=== PATIENT | male | born 1960 | race Caucasian/White ===

== ENCOUNTER 2021-06-11 09:38 | Outpatient (CLI) | payer OTHER, MEDICAID, SELFPAY | END 2021-06-11 09:39 | disposition home or self-care (01) | LOC: WOUND 09:39 | PROVIDERS: Family Provider Physician Assistant Medical; PCP Physician Assistant Medical; Visit Provider Nurse Practitioner Family | DX: I96 Gangrene, not elsewhere classified (principal); E11.622 Type 2 diabetes mellitus with other skin ulcer; L97.822 Non-pressure chronic ulcer of other part of left lower leg with fat layer exposed; J44.9 Chronic obstructive pulmonary disease, unspecified; Z87.891 Personal history of nicotine dependence | CPT/HCPCS: 11042; 99213; A6253 ==

== ENCOUNTER 2021-06-12 06:00 | Outpatient (RCR) | payer OTHER, MEDICAID, SELFPAY | END 2021-06-25 23:59 | disposition home or self-care (01) | LOC: WPT 06:00 | PROVIDERS: PCP Physician Assistant Medical; Referring Provider Nurse Practitioner Family; Visit Provider Nurse Practitioner Family | DX: I89.0 Lymphedema, not elsewhere classified (principal) | CPT/HCPCS: 29581; 97161 ==

== ENCOUNTER 2021-06-18 10:14 | Outpatient (CLI) | payer OTHER, MEDICAID, SELFPAY | END 2021-06-18 10:15 | disposition home or self-care (01) | LOC: WOUND 10:15 | PROVIDERS: Family Provider Physician Assistant Medical; PCP Physician Assistant Medical; Visit Provider Thoracic Surgery (Cardiothoracic Vascular Surgery) | DX: I96 Gangrene, not elsewhere classified (principal); I87.2 Venous insufficiency (chronic) (peripheral); L97.822 Non-pressure chronic ulcer of other part of left lower leg with fat layer exposed; E11.9 Type 2 diabetes mellitus without complications; J44.9 Chronic obstructive pulmonary disease, unspecified; Z87.891 Personal history of nicotine dependence | CPT/HCPCS: 97597 ==

== ENCOUNTER 2021-06-25 10:47 | Outpatient (CLI) | payer OTHER, MEDICAID, SELFPAY | END 2021-06-25 10:48 | disposition home or self-care (01) | LOC: WOUND 10:47 | PROVIDERS: PCP Physician Assistant Medical; Visit Provider Thoracic Surgery (Cardiothoracic Vascular Surgery) | DX: I87.2 Venous insufficiency (chronic) (peripheral) (principal); L97.822 Non-pressure chronic ulcer of other part of left lower leg with fat layer exposed; E11.9 Type 2 diabetes mellitus without complications; J44.9 Chronic obstructive pulmonary disease, unspecified; Z87.891 Personal history of nicotine dependence; L97.811 Non-pressure chronic ulcer of other part of right lower leg limited to breakdown of skin | CPT/HCPCS: 99213; A6253 ==

== ENCOUNTER 2021-07-09 09:58 | Outpatient (CLI) | payer OTHER, MEDICAID, SELFPAY | END 2021-07-09 09:59 | disposition home or self-care (01) | LOC: WOUND 09:59 | PROVIDERS: PCP Physician Assistant Medical; Visit Provider Thoracic Surgery (Cardiothoracic Vascular Surgery) | DX: I96 Gangrene, not elsewhere classified (principal); I87.2 Venous insufficiency (chronic) (peripheral); L97.822 Non-pressure chronic ulcer of other part of left lower leg with fat layer exposed; L97.812 Non-pressure chronic ulcer of other part of right lower leg with fat layer exposed; J44.9 Chronic obstructive pulmonary disease, unspecified; Z87.891 Personal history of nicotine dependence | CPT/HCPCS: 97597; 97598 ==

== ENCOUNTER 2021-07-16 10:20 | Outpatient (CLI) | payer OTHER, MEDICAID, SELFPAY | END 2021-07-16 10:21 | disposition home or self-care (01) | LOC: WOUND 10:20 | PROVIDERS: PCP Physician Assistant Medical; Visit Provider Thoracic Surgery (Cardiothoracic Vascular Surgery) | DX: I96 Gangrene, not elsewhere classified (principal); I87.2 Venous insufficiency (chronic) (peripheral); L97.822 Non-pressure chronic ulcer of other part of left lower leg with fat layer exposed; L97.812 Non-pressure chronic ulcer of other part of right lower leg with fat layer exposed; J44.9 Chronic obstructive pulmonary disease, unspecified; Z87.891 Personal history of nicotine dependence | CPT/HCPCS: 99212 ==

== ENCOUNTER 2021-07-30 10:48 | Outpatient (CLI) | payer OTHER, MEDICAID, SELFPAY | END 2021-07-30 10:49 | disposition home or self-care (01) | LOC: WOUND 10:48 | PROVIDERS: PCP Physician Assistant Medical; Visit Provider Thoracic Surgery (Cardiothoracic Vascular Surgery) | DX: E11.622 Type 2 diabetes mellitus with other skin ulcer (principal); L97.822 Non-pressure chronic ulcer of other part of left lower leg with fat layer exposed; L97.812 Non-pressure chronic ulcer of other part of right lower leg with fat layer exposed; Z87.891 Personal history of nicotine dependence; I87.2 Venous insufficiency (chronic) (peripheral) | CPT/HCPCS: 97597; 97598 ==

== ENCOUNTER 2022-10-03 10:21 | Observation (INO) | payer MEDICAID, SELFPAY ==
[2022-10-03] VITALS (28 sets, daily range): BP systolic 119–156; BP diastolic 57–106; PULSE 64–95; RESP 13–28; TEMP 36.4–36.6; O2SAT 92–99; BMI 47.5
--- NOTE | 2022-10-03 10:23 | ED_ITS ---
HPI - General Adult General: Chief complaint: Weakness Stated complaint: WEAKNESS/ FALL/ POSSIBLE DKA Time Seen by Provider: 10/03/22 10:22 History of Present Illness: Mr. Barahona is a 61-year-old gentleman with complex past medical history including COPD with chronic hypoxic respiratory failure, CHF, hypertension, diabetes, history of TIA, history of bilateral lower extremity chronic skin changes with history of following with wound care presenting to the emergency department for concern over generalized weakness and falls. He reports 2 or 3 days of gradual onset generalized weakness. He feels when walking his knees will give out and he has fallen twice and has been unable to get up. No head strike or loss of consciousness. He denies any specific infectious symptoms. His blood glucose has been in the 400s and was initially high for EMS. Overall course of symptoms has worsened. Intensity is moderate to severe. No other specific changes in health, exacerbating, or alleviating factors identified. Prehospital patient received approximately 1250 cc of fluids Onset (ago): day(s) Severity: moderate Associated symptoms: Reports malaise and weakness Review of Systems General: Reports: 10 or more systems reviewed and unremarkable except in HPI and below Const: Reports: malaise [facility] ED PFSH: Medical History (Updated 10/03/22 @ 17:54 by Steve Becerril MD) CHF (congestive heart failure) Chronic respiratory failure with hypoxia COPD (chronic obstructive pulmonary disease) DM2 (diabetes mellitus, type 2) Social History (Updated 10/03/22 @ 10:33 by Omari Leo MD) Smoking and tobacco status: former smoker Physical Exam Const: COMMON NORMALS: alert GENERAL APPEARANCE: cooperative and well developed HENMT: COMMON NORMALS: normocephalic and atraumatic HEAD & SCALP: normocephalic and atraumatic Eye: COMMON NORMALS: conjunctivae normal CONJUNCTIVA: Yes conjunctivae normal SCLERA: sclerae normal Neck/C-Spine: COMMON NORMALS: supple GENERAL: Yes trachea midline Resp: COMMON NORMALS: clear to auscultation bilaterally EFFORT & INSPECTION: Yes able to speak in complete sentences AUSCULTATION: clear to auscultation bilaterally Cardio: COMMON NORMALS: regular rate and regular rhythm RATE: regular rate RHYTHM: regular rhythm GI: COMMON NORMALS: Soft to palpation PALPATION: Yes Soft to palpation and No Tenderness to palpation present (GI) Extremity: GENERAL: Yes normal exam except as noted and No edema Neuro: COMMON NORMALS: moves all extremities SENSORIUM/ORIENTATION: Yes alert and No Orientation impaired Psych: COMMON NORMALS: mental status grossly normal and Normal thought process present THOUGHT PROCESS: Normal thought process present Course Vital Signs: Vital signs: Vital Signs Temperature 98.6 F 10/04/22 19:00 Pulse Rate 66 10/04/22 22:00 Respiratory Rate 14 10/04/22 21:30 Blood Pressure 119/62 10/04/22 21:30 Pulse Oximetry 97 10/04/22 21:30 Oxygen Delivery Me thod Nasal Cannula 10/04/22 20:00 Oxygen Flow Rate 2 10/04/22 20:00 MDM - General Adult Medical Decision Making 61-year-old gentleman presenting with generalized weakness and malaise and aleshia rn over DKA. Exam as above. No focal neurologic deficits or trauma requiring trauma imaging. EKG demonstrates sinus rhythm with degree AV block. Nonspecific ST segment abnormalities are present, no STEMI. Labs with mild hemoconcentration and minimal leukocytosis. Subtherapeutic INR. Unfortunately metabolic panel was delayed secondary to multiple hemolyzed samples. Patient has FRANCISCO and evidence of metabolic stress as well as hyperkalemia. ABG with pH 7.27. Serum ketones are negative. No UTI. CT head negative for acute pathology. Chest x-ray with no lobar consolidation or pneumothorax. Prehospital IV fluids were given and due to concern over history of heart failure I will plan to monitor volume status closely and gentle hydration. Patient given insulin and calcium gluconate. Most likely allergy patient symptoms is multifactorial including FRANCISCO, possible DKA, metabolic derangement. The results of ED evaluation were discussed with the patient including plan for admission due to requirement for level of care not available if discharged to prevent significant worsening/deterioration. Patient agreeable with plan. Discussed with hospitalist service who was agreeable to admit patient. Medical Records I reviewed the patient's medical records. Lab Data I reviewed the patient's lab results. 10/04/22 02:59 10/04/22 02:[address] 10/03/22 10:46 IMPRESSION: 1. No evidence of intracranial hemorrhage or mass effect. 2. Chronic infarcts described above. 3. Chronic inspissated secretions LEFT maxillary sinus. 4. No acute intracranial findings. Chest X-Ray 10/03/22 15:19 Impression: 1. No change in atherosclerosis and cardiomegaly. 2. No change in left lower lobe and left costophrenic angle scarring. Laboratory Results WBC 10.6 10^3/uL (4.0-10.0) H 10/03/22 09:30 RBC 5.42 10^6/uL (4.1-5.3) H 10/03/22 09:30 Hgb 16.5 g/dL (11.7-16.6) 10/03/22 09:30 Hct 50.2 % (42.0-52.0) 10/03/22 09:30 MCV 92.6 fl (80-94) 10/03/22 09:30 MCH 30.4 pg (28.0-34.0) 10/03/22 09:30 MCHC 32.9 g/dL (30.0-36.0) 10/03/22 09:30 RDW 14.4 % (12.1-15.1) 10/03/22 09:30 Plt Count 216 10^3/cmm (130-400) 10/03/22 09:30 MPV 10.7 fL (7.4-10.4) H 10/03/22 09:30 Neut % (Auto) 89.6 % 10/03/22 09:30 Lymph % (Auto) 2.7 % 10/03/22 09:30 [place] % (Auto) 6.1 % 10/03/22 09:30 Eos % (Auto) 0.2 % 10/03/22 09:30 Baso % (Auto) 0.6 % 10/03/22 09:30 Neut # (Auto) 9.47 10^3/uL (1.8-7.7) H 10/03/22 09:30 Lymph # (Auto) 0.3 10^3/uL (0.8-4.8) L 10/03/22 09:30 [place] # (Auto) 0.6 10^3/uL (0.2-0.9) 10/03/22 09:30 Eos # (Auto) 0.0 10^3/uL (0.0-0.8) 10/03/22 09:30 Baso # (Auto) 0.1 10^3/uL (0.0-0.1) 05/11/23 09:30 Nucleated RBC % (auto) 0 % 10/03/22 09:30 Nucleated RBCs # 0.0 /100WBC 10/03/22 09:30 PT 23.30 SECONDS (12.1-14.9) H 10/03/22 11:15 INR 1.99 (0.8-1.2) H 10/03/22 11:15 APTT 36.6 SECONDS (23.9-36.7) 10/03/22 11:15 Specimen Type Arterial 10/03/22 14:55 Sample Site Brachial, right 10/03/22 14:55 ABG pH 7.27 (7.35-7.45) L 10/03/22 14:55 ABG pCO2 36.7 mmHg (35-45) 10/03/22 14:55 ABG pO2 104.0 mmHg (80.0-100.0) H 10/03/22 14:55 ABG HCO3 16.9 mmol/L (22-26) L 10/03/22 14:55 ABG Base Excess -9.1 mmol/L (-2.0-2.0) L 10/03/22 14:55 Van Test N/a 10/03/22 14:55 Hematocrit 50.0 % (42-52) 10/03/22 14:55 O2 Delivery Device Nc 10/03/22 14:55 O2 Liters/Min 3.0 % 10/03/22 14:55 FiO2 32.0 % 10/03/22 14:55 Manager Of Pmo ID Gd 10/03/22 14:55 Sodium 127 mmol/L (136-145) L 10/03/22 16:16 Potassium 5.3 mmol/L (3.5-5.1) H 10/03/22 16:16 Chloride 92 mmol/L (98-107) L 10/03/22 16:16 Carbon Dioxide 16 mmol/L (22-29) L 10/03/22 16:16 Anion Gap 24.3 (5-19) H 10/03/22 16:16 BUN 68 mg/dL (6-20) H 10/03/22 16:16 Creatinine 2.3 mg/dL (0.7-1.2) H 10/03/22 16:16 GFR Calculation 29.2 mL/min (90-130) L 10/03/22 16:16 Glucose 256 mg/dL (65-115) H 10/03/22 16:16 POC Glucose 408 mg/dL (70-110) H 10/03/22 15:35 Calculated Osmolality 293 mOsm/kg (285-295) 10/03/22 16:16 Lactate 1.9 mmol/L (0.5-2.2) 10/03/22 11:15 Calcium 9.5 mg/dL (8.5-10.5) 10/03/22 16:16 Total Bilirubin 0.4 mg/dL (0.15-1.2) 10/03/22 13:26 AST 11 U/L (0-40) 10/03/22 13:26 ALT 13 U/L (0-41) 10/03/22 13:26 Alkaline Phosphatase 209 U/L (40-130) H 10/03/22 13:26 Troponin T Baseline 49 ng/L (0-15) H 10/03/22 13:26 Troponin T 120 Minute 53.09 ng/L (0-15) H 10/03/22 16:16 Delta Troponin T 4.09 ABS# (0-10) 10/03/22 16:16 C-Reactive Protein Cancelled 10/03/22 11:15 C-Reactive Protein Cancelled 10/03/22 11:15 NT-Pro-B Natriuret Pep 1156 pg/mL (0-125) H 10/03/22 13:26 Total Protein 7.4 g/dL (6.6-8.7) 10/03/22 13:26 Albumin 3.8 g/dL (3.5-5.2) 10/03/22 13:26 Globulin 3.6 g/dL (1.3-4.6) 10/03/22 13:26 Procalcitonin 0.30 ng/mL (0-0.5) 10/03/22 13:26 Urine Color Yellow (Yellow) 10/03/22 11:45 Urine Appearance Clear (CLEAR) 10/03/22 11:45 Urine pH 5 (5-7) 10/03/22 11:45 Ur Specific [place] 1.015 (1.005-1.030) 10/03/22 11:45 Urine Protein 1+ (Negative) H 10/03/22 11:45 Urine Glucose (UA) 4+ (Normal) H 10/03/22 11:45 Urine Ketones Negative (Negative) 10/03/22 11:45 Urine Blood Trace (Negative) H 10/03/22 11:45 Urine Nitrate Negative (Negative) 10/03/22 11:45 Urine Bilirubin Neg (Negative) 10/03/22 11:45 Urine Urobilinogen Neg mg/dL (Negative) 10/03/22 11:45 Ur Leukocyte Esterase Negative (Negative) 10/03/22 11:45 Urine RBC Rare /hpf (0-2) 10/03/22 11:45 Urine WBC None /hpf (0-5) 10/03/22 11:45 Ur Squamous Epith Cells None /hpf (0-5) 10/03/22 11:45 Amorphous Sediment Trace /hpf 10/03/22 11:45 Urine Bacteria None /hpf (NONE) 10/03/22 11:45 Serum Ketones Cancelled 10/03/22 09:30 Serum Ketones Negative (Negative) 10/03/22 09:30 Influenza Type A Ag negative (Negative) 10/03/22 11:06 Influenza Type B Ag negative (Negative) 10/03/22 11:06 SARS-CoV-2 Ag (Rapid) negative (Negative) 10/03/22 11:06 Critical Care Time Critical Care Time: Critical Care Time: Yes Total Critical Care Time: 35 Attestation: Due to a high probability of clinically significant, possibly life threatening deterioration, the patient required my highest level of attention and preparedness to intervene emergently and I personally spent this critical care time directly and personally managing the patient. This critical care time included obtaining a history; examining the patient; pulse oximetry; ordering and review of laboratory and imaging studies; arranging urgent treatment with development of a management plan; evaluation of patient's response to treatment; frequent reassessment; and, discussions with other providers as applicable. It was exclusive of separately billable procedures. Primary system involved is metabolic Discharge Plan Discharge Patient Disposition: Admitted As Inpatient Admit Provider: Steve Becerril Clinical Impression: FRANCISCO (acute kidney injury), Generalized weakness, Falls, DKA (diabetic ketoacidosis), Hyperkalemia Condition: Stable Coding Level of Care Code ED Superintendent Pipelines for Courtney Doran
--- NOTE | 2022-10-03 10:28 | ECG_ITS ---
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 Measurements Intervals [place] Rate: 58 P: 11 MI: 217 QRS: 8 QRSD: 100 T: 66 QT: 434 QTc: 429 Interpretive Statements SINUS BRADYCARDIA WITH FIRST DEGREE AV BLOCK WITH FREQUENT VENTRICULAR PREMATURE COMPLEXES Compared to ECG 10/03/2022 10:59:16 First degree AV block now present Aberrant conduction of supraventricular beat(s) no longer present Indeterminate axis no longer present Right bundle-branch block no longer present Electronically Signed On 10-03-2022 14:03:23 CDT by Alvaro Cobos M.D. [email or web address].[employer]/store/[id number]
--- NOTE | 2022-10-03 10:46 | CT_ITS ---
WS: [id number] CT HEAD TECHNIQUE: Noncontrast CT of the head obtained from the skullbase to the vertex. CLINICAL INFORMATION: weakness, falls COMPARISON: 2016 DLP: 1156.[address] scans at [facility] use at least one of these dose optimization techniques: automated e xposure control; mA and/or kV adjustment per patient size (includes targeted exams where dose is matc hed to clinical indication); or iterative reconstruction. FINDINGS: No evidence of intracranial hemorrhage or mass effect. Ventricular system and basal cisterns are payne nt. Moderate small vessel changes with moderate parenchymal volume loss. Chronic encephalomalacia in the RIGHT posterior frontal lobe at the frontoparietal junction and posterior RIGHT parietal lobe lik yudelka due to prior infarcts. This has a chronic appearance. Chronic lacunar infarcts in the RIGHT cauda te and basal ganglia. Intracranial vascular calcification. Chronic opacification LEFT maxillary sinus. Mild mucosal thickening in the ethmoid air cells. Mastoid air cells well aerated. CT/CT head wo con* [id number] IMPRESSION: 1. No evidence of intracranial hemorrhage or mass effect. 2. Chronic infarcts described above. 3. Chronic inspissated secretions LEFT maxillary sinus. 4. No acute intracranial findings.
--- NOTE | 2022-10-03 10:59 | ECG_ITS ---
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 Measurements Intervals [place] Rate: 105 P: 0 NM: 0 QRS: 160 QRSD: 160 T: 0 QT: 232 QTc: 307 Interpretive Statements Sinus rhythm with first-degree AV block INDETERMINATE AXIS RIGHT BUNDLE BRANCH BLOCK [120+ ms QRS DURATION, UPRIGHT V1, 40+ ms S IN I/aVL/V4/V5/V6] Compared to ECG 12/23/2018 14:12:14 Indeterminate axis now present Right bundle-branch block now present Electronically Signed On 10-03-2022 14:13:56 CDT by Alvaro Cobos M.D. [email or web address] [facility] Solutions[facility].[employer]/[id number]
[2022-10-03 11:06] LABS: Glucose Point of Care 543 mg/dL (70-110)
[2022-10-03 11:36] LABS: Influenza A by IFA negative (Negative); Influenza B by IFA negative (Negative); SARS Covid-2 Antigen negative (Negative)
[2022-10-03 11:41] LABS: INR 1.99 (0.8-1.2); Partial Thromboplastin Time 36.6 SECONDS (23.9-36.7)
[2022-10-03 11:50] LABS: Lactate (Lactic Acid level) 1.9 mmol/L (0.5-2.2)
[2022-10-03 11:57] LABS: Basophils # 0.1 10^3/uL (0.0-0.1); Basophils % 0.6 %; Eosinophils % 0.2 %; Hematocrit 50.2 % (42.0-52.0); Hemoglobin 16.5 g/dL (11.7-16.6); Lymphocytes # 0.3 10^3/uL (0.8-4.8); Lymphocytes % 2.7 %; Mean Corpuscular HGB Conc 32.9 g/dL (30.0-36.0); Mean Corpuscular Hemoglobin 30.4 pg (28.0-34.0); Mean Corpuscular Volume 92.6 fl (80-94); Mean Platelet Volume 10.7 fL (7.4-10.4); Monocytes # 0.6 10^3/uL (0.2-0.9); Monocytes % 6.1 %; Neutrophils # 9.47 10^3/uL (1.8-7.7); Neutrophils % 89.6 %; Nucleated Red Blood Cells % 0 %; Platelet Count 216 10^3/cmm (130-400); Red Blood Count 5.42 10^6/uL (4.1-5.3); Red Cell Distribution Width 14.4 % (12.1-15.1); White Blood Count 10.6 10^3/uL (4.0-10.0)
[2022-10-03 12:41] LABS: Add Urine Microscopic? YES; Amorphous Sediment Urine TRACE /hpf; Bilirubin Urine Neg (Negative); Blood Urine Trace (Negative); Glucose Urine UA 4+ (Normal); Ketones Urine Negative (Negative); Leukocyte Esterase Urine Negative (Negative); Nitrate Urine Negative (Negative); Protein Urine 1+ (Negative); RBC Urine RARE /hpf (0-2); Specific Gravity, Urine 1.015 (1.005-1.030); Urine Appearance Clear (CLEAR); Urine Color Yellow (Yellow); Urobilinogen Urine Neg (Negative); pH Urine 5 (5-7)
[2022-10-03 12:42] LABS: Add Urine Culture? No
[2022-10-03 12:46] LABS: Ketone (Acetest) Serum Negative (Negative)
--- NOTE | 2022-10-03 12:46 | ECG_ITS ---
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 Measurements Intervals [place] Rate: 59 P: -36 IL: 191 QRS: 28 QRSD: 96 T: 70 QT: 438 QTc: 435 Interpretive Statements SINUS BRADYCARDIA WITH FREQUENT VENTRICULAR PREMATURE COMPLEXES Compared to ECG 10/03/2022 10:59:16 Ventricular premature complex(es) now present Sinus rhythm no longer present Indeterminate axis no longer present Right bundle-branch block no longer present Electronically Signed On 10-04-2022 12:02:15 CDT by Mike Hilton M.D. [email or web address]/store/[id number]
[2022-10-03 14:37] LABS: Troponin(5th) Baseline 49 ng/L (0-15)
[2022-10-03 14:42] LABS: NT Pro B Type Natriuretic Pept 1156 pg/mL (0-125)
[2022-10-03 14:54] LABS: Alanine Aminotransferase 13 U/L (0-41); Albumin Level 3.8 g/dL (3.5-5.2); Alkaline Phosphatase 209 U/L (40-130); Anion Gap 20.8 (5-19); Aspartate Amino Transferase 11 U/L (0-40); Blood Urea Nitrogen 73 mg/dL (6-20); Calcium 8.5 mg/dL (8.5-10.5); Carbon Dioxide 17 mmol/L (22-29); Chloride 90 mmol/L (98-107); Globulin 3.6 g/dL (1.3-4.6); Glomerular Filtration Rate 32.5 mL/min (90-130); Glucose 429 mg/dL (65-115); Osmolality Calculated 294 mOsm/kg (285-295); Potassium 5.8 mmol/L (3.5-5.1); Sodium 122 mmol/L (136-145); Total Bilirubin 0.4 mg/dL (0.15-1.2); Total Protein 7.4 g/dL (6.6-8.7)
[2022-10-03 15:11] LABS: ABG PCO2 36.7 mmHg (35-45); ABG PH Result 7.27 (7.35-7.45); Base Excess ABG -9.1 mmol/L (-2.0-2.0); Blood Gas Operator Identificat GD; Blood Gas Sample Site Brachial, right; Blood Gas Sample Type Arterial; HCO3 ABG 16.9 mmol/L (22-26); Oxygen Device NC
[2022-10-03] MEDS: calcium gluconate 0.9% NaCL 1 GM/50 ML PREMIX IV (15:19)
--- NOTE | 2022-10-03 15:19 | XR_ITS ---
WS: [id number] Portable AP upright chest, 10/03/2022 Clinical Data: elevated bnp, malaise Comparison: Portable chest, 12/23/2018 Findings: No nodules, masses or effusions are seen. The heart is widely enlarged. The pulmonary vascu larity is not increased. No pneumonia or pneumothorax is seen. There is left cardiophrenic angle scar ring and inferior left pleural 6 scarring and thickening unchanged. The aortic arch and descending th oracic aorta show mild tortuosity. XR/XR chest 1V portable [id number] Impression: 1. No change in atherosclerosis and cardiomegaly. 2. No change in left lower lobe and left costophrenic angle scarring.
[2022-10-03] MEDS: insulin regular-human 100 units/1 mL 10 UNIT IVP (15:21)
[2022-10-03 15:38] LABS: Glucose Point of Care 408 mg/dL (70-110)
[2022-10-03] MEDS: insulin regular-human 250 UNIT in sodium chloride 0.9% 250 ML 10.4 UNIT IV (15:46)
[2022-10-03 16:53] LABS: Troponin 5 2HR 53.09 ng/L (0-15)
[2022-10-03 17:01] LABS: Glucose Point of Care 316 mg/dL (70-110)
[2022-10-03 17:07] LABS: Troponin 5 2HR Delta 4.09 ABS# (0-10)
--- NOTE | 2022-10-03 17:49 | PM.HP ---
Providers/Chief Complaint Admitting Physician: Steve Becerril MD Primary Care Provider: Brant Barahona Chief Complaint: WEAKNESS/ FALL/ POSSIBLE DKA History of Present Illness 61 year old male with past medical history of diabetes, CHF, atrial fibrillation on warfarin, came in today after experiencing what appears to be mechanical fall at home, patient called EMS for the same, EMS arrived at the scene they found his blood sugar in 600s. Currently patient is denying any chest pain shortness of breath, palpitation dizziness, nausea vomiting, complaining of bilateral lower extremity pain, rated it at [address] head without contrast had not shown any: Acute intracranial pathology. X-ray chest no acute findings. Pertinent labs: WBC 10.6, H&H 16/50 PLT : 216 , serum sodium 122, serum potassium 5.8, BUN 73,SCR : 2.1 , random blood sugar 429, anion gap of 20, serum lactic acid 1.9, procalcitonin 0.30 ,troponin trend:49-53, proBNP 1156. Urine ketone and serum ketone negative. Patient received hyperkalemia cocktail in ER, and was also started on insulin drip. Review of Systems General: Reports: 10 or more systems reviewed and unremarkable except in HPI and below Const: Denies: fever(s), chills, body aches, change in appetite or diaphoresis Card: Denies: palpitations, edema, swelling of feet/ankles, dyspnea on exertion, orthopnea or leg pain with exertion Resp: Denies: dyspnea, productive cough, wheezing or pain on inspiration GI: Denies: abdominal pain, nausea, vomiting, diarrhea or constipation : Denies: flank pain or difficulty urinating Musc: Denies: back pain or extremity pain Neuro: Denies: headache(s) or confusion Medications/Allergies Home Medications Medication Instructions Recorded Confirmed Last Taken Type albuterol sulfate 2.5 mg/3 mL 2.5 mg inhalation Q4H PRN 10/03/22 10/03/22 Unknown History (0.083 %) solution for nebulization Shortness Of Breath amiodarone 200 mg tablet 200 mg PO DAILY 10/03/22 10/03/22 Unknown History amlodipine 10 mg tablet 10 mg PO DAILY 10/03/22 10/03/22 Unknown History empagliflozin 25 mg tablet 25 mg PO DAILY 10/03/22 10/03/22 Unknown History (Jardiance) glipizide 10 mg tablet 10 mg PO BID 10/03/22 10/03/22 Unknown History metoprolol tartrate 50 mg tablet 50 mg PO BID 10/03/22 10/03/22 Unknown History warfarin 10 mg tablet 10 mg PO . DIRECTED 10/03/22 10/03/22 Unknown History Allergies Allergy/AdvReac Type Severity Reaction Status Date / Time No Known Allergies Allergy Unverified 10/03/22 10:36 PFSH Acute PFSH: Medical History (Updated 10/03/22 @ 17:54 by Steve Becerril MD) CHF (congestive heart failure) Chronic respiratory failure with hypoxia COPD (chronic obstructive pulmonary disease) DM2 (diabetes mellitus, type 2) Social History (Updated 10/03/22 @ 10:33 by Omari Leo MD) Smoking and tobacco status: former smoker Vitals/I&O/Wt Last Vital Signs Temp 97.8 F 10/03/22 10:22 Pulse 68 10/03/22 17:00 Resp 18 10/03/22 17:00 BP 138/72 10/03/22 16:03 Pulse Ox 94 10/03/22 17:00 O2 Del Method Nasal Cannula 10/03/22 17:00 O2 Flow Rate 3 10/03/22 17:00 Weight last 48 hrs Weight 158.757 kg Physical Exam Const: COMMON NORMALS: patient oriented x3 HENMT: COMMON NORMALS: normocephalic and atraumatic Resp: COMMON NORMALS: clear to auscultation bilaterally AUSCULTATION: clear to auscultation bilaterally GI: COMMON NORMALS: Normal to inspection, nondistended, normoactive bowel sounds present, Soft to palpation, non-tender, No hepatosplenomegaly present and no masses AUSCULTATION: Yes normoactive bowel sounds PALPATION: Yes Soft to palpation and Yes No hepatosplenomegaly present RECTAL EXAM: Yes deferred Extremity: NARRATIVE EXTREMITY EXAM: Bilateral lower extremity redness and tenderness present, extremely unkept bilateral lower extremity. Appears to also have stasis dermatitis. Neuro: COMMON NORMALS: patient oriented x3 Data 10/03/22 09:30 10/03/22 13:26 A&P Assessment and plan (1) Hyperkalemia: (2) DM2 (diabetes mellitus, type 2): (3) CHF (congestive heart failure): (4) COPD (chronic obstructive pulmonary disease): (5) Hyponatremia: (6) Metabolic acidosis: (7) Bilateral lower leg cellulitis: Plan 61 year old male with past medical history of diabetes, COPD,CHF, atrial fibrillation on warfarin, came in today after experiencing what appears to be mechanical fall at home. Assessment: Hyperglycemia: In the setting of diabetes Currently on insulin drip, monitor fingerstick glucose. Follow HbA1c. Hyperkalemia: Patient has received hyperkalemia cocktail monitor serum potassium Telemetry monitoring EKG has not shown: Significant change consistent with hyperkalemia Hyponatremia: After correcting for hyperglycemia. Possibly secondary dehydration Continue IV hydration with normal saline Monitor serum sodium CKD versus FRANCISCO on CKD: Currently baseline serum creatinine is unknown Admission serum creatinine is:2.1 Patient appears slightly dry we will start him on normal saline 75 cc an hour Monitor BMP Monitor intake output charting Avoid nephrotoxic's Metabolic acidosis: Possibly coming from FRANCISCO Continue IV hydration Monitor BMP History of atrial fibrillation: Continue amiodarone and metoprolol Currently on Coumadin Bilateral lower extremity cellulitis: Currently on Zosyn History of COPD: DuoNebs as needed Supplemental oxygen as History of CHF type unknown Currently not in decompensation Patient is on Bumex at home Monitor intake output charting Daily weight Monitor electrolytes CODE STATUS: Full code DVT prophylaxis not needed on warfarin Attestations Medical Necessity Statement*: Patient is to be in hospital for management of hyperglycemia, hyperkalemia. Anticipated length of stay: Greater than 2 midnights. Coding Level of Care Code Acute Code for Chg Fwd Diagnoses Hyperkalemia E87.5 DM2 (diabetes mellitus, type 2) E11.9 CHF (congestive heart failure) I50.9 COPD (chronic obstructive pulmonary disease) J44.9 Hyponatremia E87.1 Metabolic acidosis E87.20 Bilateral lower leg cellulitis L03.116; L03.115
--- NOTE | 2022-10-03 18:02 | ECG_ITS ---
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 Measurements Intervals [place] Rate: 63 P: 5 NV: 198 QRS: -11 QRSD: 103 T: 68 QT: 409 QTc: 421 Interpretive Statements SINUS RHYTHM Compared to ECG 10/03/2022 12:46:42 Sinus bradycardia no longer present First degree AV block no longer present Electronically Signed On 10-04-2022 11:59:16 CDT by Mike Hilton M.D. [email or web address].[employer]/store/[id number]
[2022-10-03 18:23] LABS: Glucose Point of Care 157 mg/dL (70-110)
[2022-10-03 18:53] LABS: Anion Gap 24.3 (5-19); Blood Urea Nitrogen 68 mg/dL (6-20); Calcium 9.5 mg/dL (8.5-10.5); Carbon Dioxide 16 mmol/L (22-29); Chloride 92 mmol/L (98-107); Glomerular Filtration Rate 29.2 mL/min (90-130); Glucose 256 mg/dL (65-115); Osmolality Calculated 293 mOsm/kg (285-295); Potassium 5.3 mmol/L (3.5-5.1); Sodium 127 mmol/L (136-145)
[2022-10-03 19:21] LABS: Troponin 5 6HR 53.41 ng/L (0-15)
[2022-10-03 19:24] LABS: Troponin 5 6HR Delta 4.41 ng/L (0-12)
[2022-10-03] MEDS: oxyCODONE-APAP 5-325 mg Tablet 1 TAB PO (19:27)
[2022-10-03] MEDS: dextrose 5%-sod chloride 0.9% 1,000 ML 75 ML IV (19:27)
[2022-10-03] MEDS: piperacillin-tazobactam 3.375 GM in sodium chloride 0.9% (plus) 50 ML IV (19:28)
--- NOTE | 2022-10-03 19:37 | PC.NURSE ---
Pt was admitted to ICU via bed on 3L NC at 1800. Insulin gtt stopped as soon as pt in room. New orders entered per
[2022-10-03] MEDS: insulin lispro 100 unit/1 mL 10 UNIT SUBCUT (20:14)
[2022-10-03] MEDS: warfarin 10 mg Tablet PO (20:15)
[2022-10-03 20:55] LABS: Glucose Point of Care 332 mg/dL (70-110)
--- NOTE | 2022-10-03 20:56 | PC.NURSE ---
Dr. Becerril called unit for an update on the patient. Orders to get finger stick now. Reported finger stick glucose result to Dr. Becerril. Orders to increase sliding scale insulin from low to medium dose. Orders updated and reported to primary nurse, SUSAN Grace.
[2022-10-03] MEDS: insulin lispro 100 unit/1 mL SUBCUT (21:17)
[2022-10-03] MEDS: insulin glargine 100 units/1 mL 20 UNIT SUBCUT (21:36)
[2022-10-04] VITALS (52 sets, daily range): BP systolic 115–152; BP diastolic 54–99; PULSE 62–92; RESP 10–26; TEMP 36.4–37; O2SAT 89–98
[2022-10-04] MEDS: piperacillin-tazobactam 3.375 GM in sodium chloride 0.9% (plus) 50 ML IV ×3 (02:04→17:41)
[2022-10-04] MEDS: oxyCODONE-APAP 5-325 mg Tablet 1 TAB PO ×4 (02:21→20:04)
[2022-10-04 03:29] LABS: Basophils % 0.6 %; Eosinophils # 0.1 10^3/uL (0.0-0.8); Eosinophils % 1.9 %; Hematocrit 47.7 % (42.0-52.0); Hemoglobin 15.4 g/dL (11.7-16.6); Lymphocytes # 0.4 10^3/uL (0.8-4.8); Lymphocytes % 5.4 %; Mean Corpuscular HGB Conc 32.3 g/dL (30.0-36.0); Mean Corpuscular Hemoglobin 29.8 pg (28.0-34.0); Mean Corpuscular Volume 92.4 fl (80-94); Mean Platelet Volume 9.8 fL (7.4-10.4); Monocytes # 0.6 10^3/uL (0.2-0.9); Neutrophils # 5.53 10^3/uL (1.8-7.7); Neutrophils % 82.5 %; Nucleated Red Blood Cells % 0 %; Platelet Count 166 10^3/cmm (130-400); Red Blood Count 5.16 10^6/uL (4.1-5.3); Red Cell Distribution Width 14.2 % (12.1-15.1); White Blood Count 6.7 10^3/uL (4.0-10.0)
[2022-10-04 03:50] LABS: INR 1.87 (0.8-1.2)
[2022-10-04 03:54] LABS: Alanine Aminotransferase 12 U/L (0-41); Albumin Level 3.5 g/dL (3.5-5.2); Alkaline Phosphatase 197 U/L (40-130); Aspartate Amino Transferase 12 U/L (0-40); Blood Urea Nitrogen 65 mg/dL (6-20); Calcium 8.8 mg/dL (8.5-10.5); Carbon Dioxide 18 mmol/L (22-29); Chloride 99 mmol/L (98-107); Globulin 3.2 g/dL (1.3-4.6); Glomerular Filtration Rate 36.5 mL/min (90-130); Glucose 193 mg/dL (65-115); Osmolality Calculated 294 mOsm/kg (285-295); Phosphorus 4.2 mg/dL (2.5-4.5); Sodium 130 mmol/L (136-145); Total Bilirubin 0.4 mg/dL (0.15-1.2); Total Protein 6.7 g/dL (6.6-8.7)
[2022-10-04 04:06] LABS: Procalcitonin 0.32 ng/mL (0-0.5)
[2022-10-04 07:19] LABS: Glucose Point of Care 252 mg/dL (70-110)
[2022-10-04] MEDS: insulin lispro 100 unit/1 mL SUBCUT ×4 (08:47→21:39)
[2022-10-04] MEDS: amlodipine 10 mg Tablet PO (08:47)
[2022-10-04] MEDS: amiodarone 200 mg Tablet PO (08:47)
[2022-10-04] MEDS: sodium chloride 0.9% 1,000 ML 100 ML IV ×2 (08:48→20:03)
[2022-10-04 11:33] LABS: Glucose Point of Care 469 mg/dL (70-110)
[2022-10-04] MEDS: warfarin 10 mg Tablet PO (13:59)
--- NOTE | 2022-10-04 15:31 | PC.NURSE ---
Patient has been having urinary hesitancy and frequent small voids. Nurse bladder scanned patient. Shows a volume of 66mL.
--- NOTE | 2022-10-04 16:22 | PM.PN ---
Subjective Subjective: Patient was seen and examined this morning, overall he is doing better, serum sodium has improved, serum creatinine has improved, hyperkalemia has resolved ,morning blood sugar is better controlled. Medications: Medication Review Details: Generic Name Dose Route Start Last Admin Trade Name Freq PRN Reason Stop Dose Admin Amiodarone HCl 200 mg 10/04/22 09:00 10/04/22 08:47 Amiodarone 200 M g Tablet PO 200 mg DAILY JAIDEN Administration Amlodipine Besylat e 10 mg 10/04/22 09:00 10/04/22 08:47 Amlodipine 10 Mg Tablet PO 10 mg DAILY JAIDEN Administration Piperacillin Sod/T azobactam 50 mls @ 12.5 mls /hr 10/03/22 18:00 10/04/22 10:24 Sod 3.375 gm/ So dium Chloride IV 12.5 mls/hr Q8H JAIDEN Administration Protocol Sodium Chloride 1,000 mls @ 100 m ls/hr 10/04/22 08:15 10/04/22 08:48 Sodium Chloride 0.9% IV 100 mls/hr .Q10H JAIDEN Administration Insulin Glargine 20 unit 10/03/22 21:00 10/03/22 21:36 Insulin Glargine 100 Units/1 Ml SUBCUT 20 unit BEDTIME JAIDEN Administration Insulin Human Lisp ro 0 unit 10/03/22 21:00 10/04/22 12:13 Insulin Lispro 1 00 Unit/1 Ml SUBCUT 16 unit WM&BEDTIME JAIDEN Administration Protocol Oxycodone/Acetamin ophen 1 tab 10/03/22 17:44 10/04/22 13:57 Oxycodone-Apap 5 -325 Mg Tablet PO 1 tab Q6H PRN Administration SEVERE PAIN Warfarin Sodium 10 mg 10/03/22 20:00 10/04/22 13:59 Warfarin 10 Mg T ablet PO 10 mg DAILY@1400 JAIDEN Administration Vitals/I&O/Wt Last Vital Signs Temp 97.5 F L 10/04/22 12:30 Pulse 78 10/04/22 14:00 Resp 14 10/04/22 13:57 BP 143/77 10/04/22 12:30 Pulse Ox 93 10/04/22 13:57 O2 Del Method Nasal Cannula 10/04/22 12:30 O2 Flow Rate 2 10/04/22 12:30 10/04/22 10/04/22 10/04/22 06:59 14:59 22:59 Intake Total 100 / 427.387 700 / 700 Output Total 450 / 700 900 / 900 Balance -350 / -272.613 -200 / -200 Weight last 48 hrs Weight 132.903 kg Weight 158.757 kg Physical Exam Const: COMMON NORMALS: patient oriented x3 HENMT: COMMON NORMALS: normocephalic and atraumatic HEAD & SCALP: normocephalic and atraumatic Resp: COMMON NORMALS: clear to auscultation bilaterally AUSCULTATION: clear to auscultation bilaterally GI: COMMON NORMALS: Normal to inspection, nondistended, normoactive bowel sounds present, Soft to palpation, non-tender, No hepatosplenomegaly present and no masses AUSCULTATION: Yes normoactive bowel sounds PALPATION: Yes Soft to palpation and Yes No hepatosplenomegaly present RECTAL EXAM: Yes deferred Extremity: NARRATIVE EXTREMITY EXAM: Bilateral lower extremity redness and tenderness present, extremely unkept bilateral lower extremity. Appears to also have stasis dermatitis. Neuro: COMMON NORMALS: patient oriented x3 Data 10/04/22 02:59 10/04/22 02:59 A&P Assessment and plan (1) Hyperkalemia: (2) DM2 (diabetes mellitus, type 2): (3) CHF (congestive heart failure): (4) COPD (chronic obstructive pulmonary disease): (5) Hyponatremia: (6) Metabolic acidosis: (7) Bilateral lower leg cellulitis: Plan 61 year old male with past medical history of diabetes, COPD,CHF, atrial fibrillation on warfarin, came in today after experiencing what appears to be mechanical fall at home. Assessment: Hyperglycemia: In the setting of diabetes Currently on insulin drip, monitor fingerstick glucose. Follow HbA1c. Hyperkalemia: Patient has received hyperkalemia cocktail monitor serum potassium Telemetry monitoring EKG has not shown: Significant change consistent with hyperkalemia Hyponatremia: After correcting for hyperglycemia. Possibly secondary dehydration Continue IV hydration with normal saline Monitor serum sodium CKD versus FRANCISCO on CKD: Currently baseline serum creatinine is unknown Admission serum creatinine is:2.1 Patient appears slightly dry we will start him on normal saline 75 cc an hour Monitor BMP Monitor intake output charting Avoid nephrotoxic's Metabolic acidosis: Possibly coming from FRANCISCO Continue IV hydration Monitor BMP History of atrial fibrillation: Continue amiodarone and metoprolol Currently on Coumadin Bilateral lower extremity cellulitis: Currently on Zosyn History of COPD: DuoNebs as needed Supplemental oxygen as History of CHF type unknown Currently not in decompensation Patient is on Bumex at home Monitor intake output charting Daily weight Monitor electrolytes CODE STATUS: Full code DVT prophylaxis not needed on warfarin Attestations Medical Necessity Statement*: Needs to be in hospital for IV fluids, blood sugar control. Coding Level of Care Code Acute Code for Chg Fwd Diagnoses Hyperkalemia E87.5 DM2 (diabetes mellitus, type 2) E11.9 CHF (congestive heart failure) I50.9 COPD (chronic obstructive pulmonary disease) J44.9 Hyponatremia E87.1 Metabolic acidosis E87.20 Bilateral lower leg cellulitis L03.116; L03.115
[2022-10-04 17:28] LABS: Glucose Point of Care 417 mg/dL (70-110)
[2022-10-04] MEDS: nystatin powder 15 gm Btl 1 APPLIC TOPICAL (17:45)
--- NOTE | 2022-10-04 18:21 | PC.NURSE ---
Shift Summary: Uneventful shift. Kelly was up to the chair for about 6 hours. Fluids changed from D5NS to NS in the morning. Due to consistently high blood sugars, subq protocol was increased to high dose and lantus dose was increased.
[2022-10-04 20:44] LABS: Glucose Point of Care 339 mg/dL (70-110)
[2022-10-04] MEDS: insulin glargine 100 units/1 mL 30 UNIT SUBCUT (21:39)
[2022-10-05] VITALS (19 sets, daily range): BP systolic 119–164; BP diastolic 60–82; PULSE 63–76; RESP 10–22; TEMP 36.7–37.2; O2SAT 92–99
[2022-10-05] MEDS: piperacillin-tazobactam 3.375 GM in sodium chloride 0.9% (plus) 50 ML IV (01:19)
[2022-10-05] MEDS: oxyCODONE-APAP 5-325 mg Tablet 1 TAB PO ×2 (04:10→10:43)
[2022-10-05] MEDS: sodium chloride 0.9% 1,000 ML 100 ML IV (04:11)
[2022-10-05 04:31] LABS: Basophils # 0.1 10^3/uL (0.0-0.1); Basophils % 1.1 %; Eosinophils # 0.2 10^3/uL (0.0-0.8); Eosinophils % 4.3 %; Hematocrit 45.6 % (42.0-52.0); Hemoglobin 14.3 g/dL (11.7-16.6); Lymphocytes # 0.4 10^3/uL (0.8-4.8); Lymphocytes % 6.7 %; Mean Corpuscular HGB Conc 31.4 g/dL (30.0-36.0); Mean Corpuscular Volume 95.6 fl (80-94); Mean Platelet Volume 9.9 fL (7.4-10.4); Monocytes # 0.5 10^3/uL (0.2-0.9); Monocytes % 9.7 %; Neutrophils # 4.17 10^3/uL (1.8-7.7); Neutrophils % 77.5 %; Nucleated Red Blood Cells % 0 %; Platelet Count 156 10^3/cmm (130-400); Red Blood Count 4.77 10^6/uL (4.1-5.3); Red Cell Distribution Width 14.4 % (12.1-15.1); White Blood Count 5.4 10^3/uL (4.0-10.0)
[2022-10-05 04:43] LABS: INR 2.13 (0.8-1.2)
[2022-10-05 05:00] LABS: Alanine Aminotransferase 12 U/L (0-41); Albumin Level 3.1 g/dL (3.5-5.2); Alkaline Phosphatase 168 U/L (40-130); Anion Gap 16.1 (5-19); Aspartate Amino Transferase 13 U/L (0-40); Blood Urea Nitrogen 49 mg/dL (6-20); Calcium 8.2 mg/dL (8.5-10.5); Carbon Dioxide 18 mmol/L (22-29); Chloride 103 mmol/L (98-107); Globulin 3.2 g/dL (1.3-4.6); Glomerular Filtration Rate 47.9 mL/min (90-130); Glucose 149 mg/dL (65-115); Osmolality Calculated 290 mOsm/kg (285-295); Potassium 5.1 mmol/L (3.5-5.1); Sodium 132 mmol/L (136-145); Total Bilirubin 0.3 mg/dL (0.15-1.2); Total Protein 6.3 g/dL (6.6-8.7)
[2022-10-05 08:23] LABS: Glucose Point of Care 235 mg/dL (70-110)
[2022-10-05] MEDS: amiodarone 200 mg Tablet PO (08:43)
[2022-10-05] MEDS: amlodipine 10 mg Tablet PO (08:43)
[2022-10-05] MEDS: insulin lispro 100 unit/1 mL SUBCUT (08:44)
--- NOTE | 2022-10-05 10:16 | PM.DCS ---
Discharge Providers Date of Admission: 10/03/22 16:28 Date of Discharge: October 05, 2022 Attending Provider at Admission: Steve Becerril MD Attending Provider at Discharge: Steve Becerril MD Primary Care Provider: Brant Barahona Diagnoses at Discharge Discharge Diagnosis (1) Hyperkalemia: Status: Acute (2) DM2 (diabetes mellitus, type 2): Status: Acute (3) CHF (congestive heart failure): Status: Acute (4) COPD (chronic obstructive pulmonary disease): Status: Acute (5) Hyponatremia: Status: Acute (6) Metabolic acidosis: Status: Acute (7) Bilateral lower leg cellulitis: Status: Acute Reason for Visit Reason for Visit: WEAKNESS/ FALL/ POSSIBLE DKA Hospital Course Hospital Course 61 year old male with past medical history of diabetes, COPD,CHF, atrial fibrillation on warfarin, came in today after experiencing what appears to be mechanical fall at home. Was admitted for management of hypoglycemia in the setting of likely uncontrolled diabetes, initially patient was kept on insulin drip, later he was transitioned to long and short acting insulin, fingerstick glucose was relatively better controlled at the time of discharge. During the hospital stay patient was also managed for FRANCISCO on CKD, possibly secondary to overdiuresis he is on Bumex at home, patient was kept on IV hydration to which he responded well to, Serum creatinine at the time of discharge was 1.5, as compared to 2.3 on admission,during the hospital stay patient was also managed for hyperkalemia,Patient received hyperkalemia cocktail serum potassium was monitored, patient was also managed for hyponatremia, responded well to IV fluids, he was also managed for bilateral lower extremity cellulitis was initially on Zosyn during the hospital stay was discharged on levofloxacin, for history of atrial fibrillation he was continued on amiodarone metoprolol and Coumadin, Has known history of CHF type unknown, he was compensated. Patient was also managed for metabolic acidosis secondary to FRANCISCO. Responded well to IV hydration. Overall patient responded well to above medical management and was discharged in stable condition to home, he will continue to follow his PCP as outpatient. Physical Exam Const: COMMON NORMALS: patient oriented x3 HENMT: COMMON NORMALS: normocephalic and atraumatic HEAD & SCALP: normocephalic and atraumatic Resp: COMMON NORMALS: clear to auscultation bilaterally AUSCULTATION: clear to auscultation bilaterally GI: COMMON NORMALS: Normal to inspection, nondistended, normoactive bowel sounds present, Soft to palpation, non-tender, No hepatosplenomegaly present and no masses AUSCULTATION: Yes normoactive bowel sounds PALPATION: Yes Soft to palpation and Yes No hepatosplenomegaly present RECTAL EXAM: Yes deferred Extremity: NARRATIVE EXTREMITY EXAM: Bilateral lower extremity redness and tenderness present, extremely unkept bilateral lower extremity. Appears to also have stasis dermatitis. Neuro: COMMON NORMALS: patient oriented x3 Discharge Data Studies Completed and Pending Completed Studies During Hospitalization Category Date Time Status CT head wo con* [id number] Stat Cat Scan 10/03/22 10:46 Completed XR chest 1V portable [id number] Stat Exams 10/03/22 15:19 Completed Pending at discharge Category Date Time Status Complete Blood Count w/Auto AM LABS Lab 10/06/22 04:00 Ordered Comprehensive Metabolic Panel AM LABS Lab 10/06/22 04:00 Ordered Prothrombin Time INR AM LABS Lab 10/06/22 04:00 Ordered Radiology Impressions Head CT 10/03/22 10:46 IMPRESSION: 1. No evidence of intracranial hemorrhage or mass effect. 2. Chronic infarcts described above. 3. Chronic inspissated secretions LEFT maxillary sinus. 4. No acute intracranial findings. Chest X-Ray 10/03/22 15:19 Impression: 1. No change in atherosclerosis and cardiomegaly. 2. No change in left lower lobe and left costophrenic angle scarring. Laboratory Results WBC 5.4 10^3/uL (4.0-10.0) 10/05/22 03:55 RBC 4.77 10^6/uL (4.1-5.3) 10/05/22 03:55 Hgb 14.3 g/dL (11.7-16.6) 10/05/22 03:55 Hct 45.6 % (42.0-52.0) 10/05/22 03:55 MCV 95.6 fl (80-94) H 10/05/22 03:55 MCH 30.0 pg (28.0-34.0) 10/05/22 03:55 MCHC 31.4 g/dL (30.0-36.0) 10/05/22 03:55 RDW 14.4 % (12.1-15.1) 10/05/22 03:55 Plt Count 156 10^3/cmm (130-400) 10/05/22 03:55 MPV 9.9 fL (7.4-10.4) 10/05/22 03:55 Neut % (Auto) 77.5 % 10/05/22 03:55 Lymph % (Auto) 6.7 % 10/05/22 03:55 Davison % (Auto) 9.7 % 10/05/22 03:55 Eos % (Auto) 4.3 % 10/05/22 03:55 Baso % (Auto) 1.1 % 10/05/22 03:55 Neut # (Auto) 4.17 10^3/uL (1.8-7.7) 10/05/22 03:55 Lymph # (Auto) 0.4 10^3/uL (0.8-4.8) L 10/05/22 03:55 Davison # (Auto) 0.5 10^3/uL (0.2-0.9) 10/05/22 03:55 Eos # (Auto) 0.2 10^3/uL (0.0-0.8) 10/05/22 03:55 Baso # (Auto) 0.1 10^3/uL (0.0-0.1) 10/05/22 03:55 Nucleated RBC % (auto) 0 % 10/05/22 03:55 Nucleated RBCs # 0.0 /100WBC 10/05/22 03:55 PT 24.60 SECONDS (12.1-14.9) H 10/05/22 03:55 INR 2.13 (0.8-1.2) H 10/05/22 03:55 APTT 36.6 SECONDS (23.9-36.7) 10/03/22 11:15 Specimen Type Arterial 10/03/22 14:55 Sample Site Brachial, right 10/03/22 14:55 ABG pH 7.27 (7.35-7.45) L 10/03/22 14:55 ABG pCO2 36.7 mmHg (35-45) 10/03/22 14:55 ABG pO2 104.0 mmHg (80.0-100.0) H 10/03/22 14:55 ABG HCO3 16.9 mmol/L (22-26) L 10/03/22 14:55 ABG Base Excess -9.1 mmol/L (-2.0-2.0) L 10/03/22 14:55 Van Test N/a 10/03/22 14:55 Hematocrit 50.0 % (42-52) 10/03/22 14:55 O2 Delivery Device Nc 10/03/22 14:55 O2 Liters/Min 3.0 % 10/03/22 14:55 FiO2 32.0 % 10/03/22 14:55 Financial Manager ID Gd 10/03/22 14:55 Sodium 132 mmol/L (136-145) L 10/05/22 03:55 Potassium 5.1 mmol/L (3.5-5.1) 10/05/22 03:55 Chloride 103 mmol/L (98-107) 10/05/22 03:55 Carbon Dioxide 18 mmol/L (22-29) L 10/05/22 03:55 Anion Gap 16.1 (5-19) 10/05/22 03:55 BUN 49 mg/dL (6-20) H 10/05/22 03:55 Creatinine 1.5 mg/dL (0.7-1.2) H 10/05/22 03:55 GFR Calculation 47.9 mL/min (90-130) L 10/05/22 03:55 Glucose 149 mg/dL (65-115) H 10/05/22 03:55 POC Glucose 235 mg/dL (70-110) H 10/05/22 07:36 Calculated Osmolality 290 mOsm/kg (285-295) 10/05/22 03:55 Lactate 1.9 mmol/L (0.5-2.2) 10/03/22 11:15 Calcium 8.2 mg/dL (8.5-10.5) L 10/05/22 03:55 Phosphorus 4.2 mg/dL (2.5-4.5) 10/04/22 02:59 Magnesium 3.0 mg/dL (1.7-2.3) H 10/04/22 02:59 Total Bilirubin 0.3 mg/dL (0.15-1.2) 10/05/22 03:55 AST 13 U/L (0-40) 10/05/22 03:55 ALT 12 U/L (0-41) 10/05/22 03:55 Alkaline Phosphatase 168 U/L (40-130) H 10/05/22 03:55 Troponin T Baseline 49 ng/L (0-15) H 10/03/22 13:26 Troponin T 120 Minute 53.09 ng/L (0-15) H 10/03/22 16:16 Delta Troponin T 4.09 ABS# (0-10) 10/03/22 16:16 Troponin T Hi Sens 6Hr 53.41 ng/L (0-15) H 10/03/22 18:53 Troponin T Hi Sens 6Hr Delta 4.41 ng/L (0-12) 10/03/22 18:53 C-Reactive Protein Cancelled 10/03/22 11:15 C-Reactive Protein Cancelled 10/03/22 11:15 NT-Pro-B Natriuret Pep 1156 pg/mL (0-125) H 10/03/22 13:26 Total Protein 6.3 g/dL (6.6-8.7) L 10/05/22 03:55 Albumin 3.1 g/dL (3.5-5.2) L 10/05/22 03:55 Globulin 3.2 g/dL (1.3-4.6) 10/05/22 03:55 Procalcitonin 0.32 ng/mL (0-0.5) 10/04/22 02:59 Urine Color Yellow (Yellow) 10/03/22 11:45 Urine Appearance Clear (CLEAR) 10/03/22 11:45 Urine pH 5 (5-7) 10/03/22 11:45 Ur Specific [place] 1.015 (1.005-1.030) 10/03/22 11:45 Urine Protein 1+ (Negative) H 10/03/22 11:45 Urine Glucose (UA) 4+ (Normal) H 10/03/22 11:45 Urine Ketones Negative (Negative) 10/03/22 11:45 Urine Blood Trace (Negative) H 10/03/22 11:45 Urine Nitrate Negative (Negative) 10/03/22 11:45 Urine Bilirubin Neg (Negative) 10/03/22 11:45 Urine Urobilinogen Neg mg/dL (Negative) 10/03/22 11:45 Ur Leukocyte Esterase Negative (Negative) 10/03/22 11:45 Urine RBC Rare /hpf (0-2) 10/03/22 11:45 Urine WBC None /hpf (0-5) 10/03/22 11:45 Ur Squamous Epith Cells None /hpf (0-5) 10/03/22 11:45 Amorphous Sediment Trace /hpf 10/03/22 11:45 Urine Bacteria None /hpf (NONE) 10/03/22 11:45 Serum Ketones Cancelled 10/03/22 09:30 Serum Ketones Negative (Negative) 10/03/22 09:30 Influenza Type A Ag negative (Negative) 10/03/22 11:06 Influenza Type B Ag negative (Negative) 10/03/22 11:06 SARS-CoV-2 Ag (Rapid) negative (Negative) 10/03/22 11:06 Vitals Last Vital Signs Temp 98.0 F 10/05/22 04:00 Pulse 73 10/05/22 08:47 Resp 18 10/05/22 08:47 BP 141/64 10/05/22 05:00 Pulse Ox 97 10/05/22 08:47 O2 Del Method Nasal Cannula 10/05/22 08:47 O2 Flow Rate 2 10/05/22 08:47 Discharge Plan Discharge Patient Disposition: Home Condition: Stable Prescriptions: New nystatin 100,000 unit/gram powder 1 applic topical BID Qty: 30 0RF levofloxacin 750 mg tablet 750 mg PO DAILY 7 Days Qty: 7 0RF Continued albuterol sulfate 2.5 mg /3 mL (0.083 %) solution for nebulization 2.5 mg inhalation Q4H PRN (Reason: Shortness Of Breath) amiodarone 200 mg tablet 200 mg PO DAILY warfarin 10 mg tablet 10 mg PO . DIRECTED glipizide 10 mg tablet 10 mg PO BID amlodipine 10 mg tablet 10 mg PO DAILY metoprolol tartrate 50 mg tablet 50 mg PO BID Jardiance 25 mg tablet 25 mg PO DAILY Discharge Orders: Discharge Order (Routine); Ordered 10/05/22 Ordered By: Steve Becerril Referrals: Brant Barahona [Primary Care Provider] - 1 week Patient Instructions: Nystatin (On the skin) (Nyamyc, Nyata, Nystop, Pediaderm AF), Levofloxacin (By mouth) (Levaquin, Levaquin Leva-shannan), Opioid Safety Activity Restrictions/Additional Instructions: Please call Friday to schedule a follow-up appointment with your primary care provider. Discharge Attestations Time Spent in Discharge Care*: less than 30 min Quality Metrics Clinical Quality Measures [ No reported AMI, CVA or VTE this stay] Coding Level of Care Code Acute Code for Chg Fwd Diagnoses Hyperkalemia E87.5 DM2 (diabetes mellitus, type 2) E11.9 CHF (congestive heart failure) I50.9 COPD (chronic obstructive pulmonary disease) J44.9 Hyponatremia E87.1 Metabolic acidosis E87.20 Bilateral lower leg cellulitis L03.116; L03.115
--- NOTE | 2022-10-05 11:41 | PC.NURSE ---
NUrse alerted Dr lopez to insulin requirements while in the hospital. SLiding scale required over 50 units with meals yesterday.
--- NOTE | 2022-10-05 12:00 | PC.NURSE ---
Discharged patient. IV removed. Appointment and new medication instructions provided. Instructed to monitor/log blood sugar levels to provide to primary doctor.
== END 2022-10-05 11:30 | disposition home or self-care (01) ==
LOC: ER 15:24 → ICU 10-04 01:32
PROVIDERS: Admitting Provider Internal Medicine; Emergency Provider Emergency Medicine; PCP Physician Assistant Medical; Visit Provider Internal Medicine
DX: E11.65 Type 2 diabetes mellitus with hyperglycemia (principal); J44.9 Chronic obstructive pulmonary disease, unspecified; I50.9 Heart failure, unspecified; I48.91 Unspecified atrial fibrillation; E87.5 Hyperkalemia; E87.1 Hypo-osmolality and hyponatremia; L03.116 Cellulitis of left lower limb; L03.115 Cellulitis of right lower limb; Z79.01 Long term (current) use of anticoagulants; N17.9 Acute kidney failure, unspecified; N18.9 Chronic kidney disease, unspecified; E87.20 Acidosis, unspecified; R00.1 Bradycardia, unspecified; I44.0 Atrioventricular block, first degree; I45.10 Unspecified right bundle-branch block; Z79.84 Long term (current) use of oral hypoglycemic drugs; Z87.891 Personal history of nicotine dependence
CPT/HCPCS: 36415; 36416; 36600; 70450; 71045; 80048; 80053; 81001; 82009; 82803; 82962; 83605; 83735; 83880; 84100; 84145; 84484; 85025; 85610; 85730; 87426; 87804; 93005; 96365; 96366; 96367; 96372; 96376; 99285; G0378; J0610; J1815; J2543; J7030; J7042; J7050

== ENCOUNTER 2022-11-14 01:44 | Emergency (ER) | payer MEDICAID, SELFPAY ==
[2022-11-14 01:45] VITALS: BP 156/69; PULSE 92; RESP 18; TEMP 36.4; O2SAT 91; BMI 38.0
[2022-11-14 01:48] VITALS: BP 139/51; RESP 20; O2SAT 94
--- NOTE | 2022-11-14 01:49 | CTR_ITS ---
PROCEDURE INFORMATION: Exam: CT Maxillofacial Without Contrast Exam date and time: 11/14/2022 2:09 AM Age: 62 years old Clinical indication: Injury or trauma; Fall; Blunt trauma (contusions or hematomas); Forehead; Injury details: Left side injury TECHNIQUE: Imaging protocol: Computed tomography of the face without contrast. Radiation optimization: All CT scans at this facility use at least one of these dose optimization techniques: automated exposure control; mA and/or kV adjustment per patient size (includes targeted exams where dose is matched to clinical indication); or iterative reconstruction. REPORTING DATA: Count of CT and Cardiac NM exams in prior 12 months: This patient has received [address] and 0 known cardiac nuclear medicine studies in the 12 months prior to the current study. COMPARISON: CT head wo con* [id number] 11/14/2022 2:05 AM RADIATION DOSE METRICS: Total DLP (mGy-cm): 646.98 FINDINGS: Orbital cavities: Orbits are normal. Globes are unremarkable. Bones/joints: Comminuted minimally displaced fractures of the nasal bones. Cerclage wire within the frontal process of the left zygomatic bone. Old ununited fracture of the orbital surface, zygomatic process, infratemporal surface of the left zygomatic bone likely represents sequelae of prior trauma. Erosive changes within the anterior maxilla on series 3, image 38 likely secondary to periapical abscess/infection. Moderate spondylosis of the partially imaged upper cervical spine. Paranasal sinuses: Complete opacification of the left maxillary sinus with soft tissue calcifications and thickening of the left maxillary sinus reeves / osteitis. Soft tissues: Right forehead mild soft tissue swelling/hematoma. Vasculature: Atheromatous changes are seen within the bilateral carotid siphons. Brain: Right basal ganglia, right parietal, and right occipital encephalomalacia compatible with sequelae of remote infarcts. Dental: Multiple dental caries and fractured teeth. CT/CT facial bones wo con* [id number] IMPRESSION: 1. Comminuted minimally displaced fractures of the nasal bones. 2. Right forehead mild soft tissue swelling/hematoma. 3. Complete opacification of the left maxillary sinus with soft tissue calcifications and thickening of the left maxillary sinus reeves / osteitis. Findings are compatible with chronic sinus disease. 4. Ununited fractures of the left zygomatic bone as described above compatible with sequelae of remote trauma. 5. Multiple dental caries, fractured teeth, and erosive changes within the anterior maxilla on series 3, image 38 likely secondary to periapical abscess/infection. 6. Other chronic/incidental findings as described above.
--- NOTE | 2022-11-14 01:49 | CTR_ITS ---
PROCEDURE INFORMATION: Exam: CT Head Without Contrast Exam date and time: 11/14/2022 2:05 AM Age: 62 years old Clinical indication: Injury or trauma; Fall; Blunt trauma (contusions or hematomas); Consciousness not specified TECHNIQUE: Imaging protocol: Computed tomography of the head without contrast. Radiation optimization: All CT scans at this facility use at least one of these dose optimization techniques: automated exposure control; mA and/or kV adjustment per patient size (includes targeted exams where dose is matched to clinical indication); or iterative reconstruction. REPORTING DATA: Count of CT and Cardiac NM exams in prior 12 months: This patient has received [address] and 0 known cardiac nuclear medicine studies in the 12 months prior to the current study. COMPARISON: CT head wo con* [id number] 10/03/2022 11:38 AM RADIATION DOSE METRICS: Total DLP (mGy-cm): 1192.27 FINDINGS: Brain: No acute intracranial hemorrhage, abnormal extra-axial fluid collection, mass effect, or midline shift. Right basal ganglia, right frontoparietal, and right occipital encephalomalacia compatible with sequelae of remote infarcts. Cerebral ventricles: The ventricular system is within normal limits of variation for the patient's age. Paranasal sinuses: Complete opacification of the left maxillary sinus with thickening of the left maxillary sinus wall/osteitis compatible with chronic sinus disease. See facial bone CT report for additional paranasal sinus and facial bone findings. Mastoid air cells: Visualized mastoid air cells are well aerated. Bones/joints: Comminuted minimally displaced fractures of the nasal bones. Soft tissues: Mild right forehead soft tissue swelling/hematoma. Vasculature: Atheromatous changes are seen within the bilateral carotid siphons. CT/CT head wo con* [id number] IMPRESSION: 1. No acute intracranial findings. 2. Comminuted minimally displaced fractures of the nasal bones and mild right forehead soft tissue swelling/hematoma. 3. Right basal ganglia, right frontoparietal, and right occipital encephalomalacia compatible with sequelae of remote infarcts. 4. Complete opacification of the left maxillary sinus with thickening of the left maxillary sinus wall/osteitis compatible with chronic sinus disease. See facial bone CT report for additional paranasal sinus and facial bone findings.
--- NOTE | 2022-11-14 01:50 | W.ED.FALL ---
HPI - Fall General: Chief Complaint: Fall Stated Complaint: FALL Time Seen by Provider: 11/14/22 01:47 Source: patient and EMS Mode of arrival: EMS Limitations: no limitations History of Present Illness: 62-year-old male who states that he had gotten up to go to the bathroom and had fell face forward states that he did hit his face on the laminate floor he has a headache along with some nasal pain he had a nosebleed the scene which is since stopped. He rates his pain currently a 3 out of 10 denies any neck pain denies any extremity pain. Associated symptoms-after fall: Reports headache(s); Denies abdominal pain, chest pain or neck pain Review of Systems Const: Denies: fever(s), chills, body aches or change in appetite Eyes: Denies: blurry vision or eye discomfort ENMT: Denies: throat pain or dental pain Card: Denies: chest pain Resp: Denies: dyspnea GI: Denies: abdominal pain, nausea, vomiting or diarrhea Musc: Denies: neck pain or back pain Skin/Breast: Denies: rash Neuro: Reports: headache(s) PFSH ED PFSH: Medical History FRANCISCO (acute kidney injury) Bilateral lower leg cellulitis CHF (congestive heart failure) Chronic respiratory failure with hypoxia COPD (chronic obstructive pulmonary disease) DKA (diabetic ketoacidosis) DM2 (diabetes mellitus, type 2) Falls Generalized weakness Hyperkalemia Hyponatremia Metabolic acidosis Social History Smoking and tobacco status: former smoker Physical Exam Const: COMMON NORMALS: no acute distress and patient oriented x3 HENMT: COMMON NORMALS: normocephalic HEAD & SCALP: normocephalic OTHER: Tenderness over his nose along with forehead no lacerations Eye: COMMON NORMALS: Equal, round and reactive pupils present and conjunctivae normal CONJUNCTIVA: Yes conjunctivae normal PUPIL: Yes Equal, round and reactive pupils present Neck/C-Spine: COMMON NORMALS: full ROM CERVICAL SPINE: Yes cervical ROM normal, No pain with cervical ROM and No Cervical spine tenderness Chest: COMMONS NORMALS: normal inspection of the chest and normal palpation of entire chest wall Resp: COMMON NORMALS: normal respiratory effort and clear to auscultation bilaterally AUSCULTATION: clear to auscultation bilaterally Cardio: COMMON NORMALS: regular rate and regular rhythm RATE: regular rate RHYTHM: regular rhythm GI: COMMON NORMALS: Normal to inspection, nondistended, normoactive bowel sounds present, Soft to palpation and non-tender PALPATION: Yes Soft to palpation Extremity: COMMON NORMALS: full ROM Neuro: COMMON NORMALS: patient oriented x3 Psych: COMMON NORMALS: mental status grossly normal Skin: COMMON NORMALS: no rashes or lesions noted GENERAL SKIN EXAM: no rashes or lesions noted Course Vital Signs: Vital signs: Vital Signs Temperature 97.6 F 11/14/22 01:45 Pulse Rate 99 11/14/22 03:14 Respiratory Rate 20 H 11/14/22 03:14 Blood Pressure 137/60 11/14/22 03:14 Pulse Oximetry 95 11/14/22 03:14 Oxygen Delivery Me thod Nasal Cannula 11/14/22 02:52 Oxygen Flow Rate 2 11/14/22 02:52 MDM - Fall Medical Decision Making Patient presents with a nasal fracture from a fall he is ambulatory here well-appearing no acute findings on his head CT we will get him follow-up with ENT he is return if worsening he understands agrees to plan. Medical Records I reviewed the patient's medical records. Lab Data Radiology Impressions Face CT 11/14/22 01:49 IMPRESSION: 1. Comminuted minimally displaced fractures of the nasal bones. 2. Right forehead mild soft tissue swelling/hematoma. 3. Complete opacification of the left maxillary sinus with soft tissue calcifications and thickening of the left maxillary sinus reeves / osteitis. Findings are compatible with chronic sinus disease. 4. Ununited fractures of the left zygomatic bone as described above compatible with sequelae of remote trauma. 5. Multiple dental caries, fractured teeth, and erosive changes within the anterior maxilla on series 3, image 38 likely secondary to periapical abscess/infection. 6. Other chronic/incidental findings as described above. Head CT 11/14/22 01:49 IMPRESSION: 1. No acute intracranial findings. 2. Comminuted minimally displaced fractures of the nasal bones and mild right forehead soft tissue swelling/hematoma. 3. Right basal ganglia, right frontoparietal, and right occipital encephalomalacia compatible with sequelae of remote infarcts. 4. Complete opacification of the left maxillary sinus with thickening of the left maxillary sinus wall/osteitis compatible with chronic sinus disease. See facial bone CT report for additional paranasal sinus and facial bone findings. Laboratory Results PT 14.50 SECONDS (12.1-14.9) 11/14/22 02:01 INR 1.09 (0.8-1.2) 11/14/22 02:01 Discharge Plan Discharge Patient Disposition: Home Clinical Impression: Fall, Fracture of nasal bone Condition: Stable Prescriptions: No Action albuterol sulfate 2.5 mg /3 mL (0.083 %) solution for nebulization 2.5 mg inhalation Q4H PRN (Reason: Shortness Of Breath) amiodarone 200 mg tablet 200 mg PO DAILY warfarin 10 mg tablet 10 mg PO . DIRECTED glipizide 10 mg tablet 10 mg PO BID amlodipine 10 mg tablet 10 mg PO DAILY metoprolol tartrate 50 mg tablet 50 mg PO BID Jardiance 25 mg tablet 25 mg PO DAILY nystatin 100,000 unit/gram powder 1 applic topical BID Qty: 30 0RF Discharge Orders: Discharge ED (Routine); Ordered 11/14/22 Ordered By: Brinda Burgos Referrals: Brant Barahona [Primary Care Provider] - Cesar Murphy MD [Physician] - 1-3 days Discharge Diet: Advance as tolerated Discharge Activity: Resume usual activity Patient Instructions: Nasal Fracture (ED), Fall Prevention (ED) Coding Level of Care Code ED Fire Extinguisher Technician for Courtney Doran
[2022-11-14 02:16] LABS: INR 1.09 (0.8-1.2)
--- NOTE | 2022-11-14 02:51 | PC.NURSE ---
Patients o2 86% RA. States that he wears oxygen up to 3l at noc. Pt placed on 2l nc and sats improved to 96%.
[2022-11-14 02:52] VITALS: BP 153/67; PULSE 91; O2SAT 96
--- NOTE | 2022-11-14 03:04 | PC.NURSE ---
Patient requesting pain medication for his chronic leg pain. Rates the pain 9/10, 10/10 at this time. Verbal order Dr moncada for po tylenol. rbvo and placed.
[2022-11-14] MEDS: acetaminophen 500 mg Tablet PO (03:08)
[2022-11-14 03:14] VITALS: BP 137/60; PULSE 99; RESP 20; O2SAT 95
--- NOTE | 2022-11-14 09:54 | PC.SOCIAL ---
Addendum entered by Kaelyn Mejía 11/29/22 14:26: it security manager received the following message from the ENT clinic regarding follow up appointment: unable to reach we has tried to contact pt x 3 and no call back. On 11/15/22 @ 11:47 Nila Darden Wrote To Dr. Murphy Clinical pt needs to have appt within 10 days of injury On 11/14/22 @ 15:50 Nila Darden Wrote To Dr. Murphy Clinical unable to LVM On 11/14/22 @ 10:19 Jonah Hernandez Wrote To Dr. Murphy Clinical Please review Original Note: ENT Referral Referral sent to ENT at this time; clinic to contact patient with appt date/time.
== END 2022-11-14 03:53 | disposition home or self-care (01) ==
PROVIDERS: Emergency Provider Emergency Medicine; PCP Physician Assistant Medical
DX: S02.2XXA Fracture of nasal bones, initial encounter for closed fracture (principal); Z79.01 Long term (current) use of anticoagulants; Z79.84 Long term (current) use of oral hypoglycemic drugs; I11.0 Hypertensive heart disease with heart failure; I50.9 Heart failure, unspecified; J44.9 Chronic obstructive pulmonary disease, unspecified; E11.9 Type 2 diabetes mellitus without complications; Z87.891 Personal history of nicotine dependence; W18.39XA Other fall on same level, initial encounter
CPT/HCPCS: 70450; 70486; 85610; 99284

== ENCOUNTER 2023-03-11 11:32 | Inpatient (IN) | payer MEDICAID, SELFPAY ==
[2023-03-11] VITALS (42 sets, daily range): BP systolic 99–143; BP diastolic 37–99; PULSE 40–141; RESP 9–22; O2SAT 84–100; BMI 44.7
--- NOTE | 2023-03-11 11:41 | ECG_ITS ---
[facility] Test Date: 2023-03-11 Pat Name: Geronimo Barahona Department: Room: Gender: Male Ore Grader: : 1960 Requested By: Cory Abreu Order Number: [id number] Lesly MD: Collette San M.D. Measurements Intervals [place] Rate: 54 P: 0 NV: 0 QRS: 116 QRSD: 194 T: 26 QT: 503 QTc: 477 Interpretive Statements ATRIAL FIBRILLATION WITH SLOW VENTRICULAR RESPONSE WITH ABERRANT CONDUCTION OR VENTRICULAR PREMATURE COMPLEXES RIGHT AXIS DEVIATION [QRS AXIS > 100] RIGHT BUNDLE BRANCH BLOCK [120+ ms QRS DURATION, UPRIGHT V1, 40+ ms S IN I/aVL/V4/V5/V6] Compared to ECG 10/03/2022 16:40:24 Aberrant conduction of supraventricular beat(s) now present Ventricular premature complex(es) now present Right-axis deviation now present Right bundle-branch block now present Sinus rhythm no longer present Electronically Signed On 03-11-2023 22:06:35 CDT by Collette San M.D. [id number]
--- NOTE | 2023-03-11 11:45 | PC.NURSE ---
PT IS ON [employer]
--- NOTE | 2023-03-11 12:03 | ED_ITS ---
HPI - Weakness General: Chief complaint: Weakness Stated complaint: Weakness Time Seen by Provider: 03/11/23 11:39 History of Present Illness: 62-year-old male presents emergency department via EMS personnel from his home. Patient states he has been a longstanding diabetic and has had significantly increased weakness and fatigue over the previous 2 weeks. Patient states that over the previous 24 hours he has become increasingly weak and fatigued and feels as though his pre-existing rash in his groin area has become much worse and foul-smelling. He denies chest pain, nausea vomiting or dizziness. He states that he does have a past medical history of atrial fibrillation as well as congestive heart failure and is on anticoagulation. He states he has had a longstanding fungal infection to his abdominal region and his legs for more than a year. Review of Systems General: Reports: 10 or more systems reviewed and unremarkable except in HPI and below Const: Reports: fatigue and malaise Musc: Reports: muscle weakness Skin/Breast: Reports: rash, pruritus, erythema, sores, non-healing lesions and changes in skin color PFSH ED PFSH: Medical History FRANCISCO (acute kidney injury) Bilateral lower leg cellulitis CHF (congestive heart failure) Chronic respiratory failure with hypoxia COPD (chronic obstructive pulmonary disease) DKA (diabetic ketoacidosis) DM2 (diabetes mellitus, type 2) Falls Generalized weakness Hyperkalemia Hyponatremia Metabolic acidosis Social History Smoking and tobacco/nicotine status: former use of tobacco/nicotine Physical Exam Const: GENERAL APPEARANCE: ill appearing and frail appearing HENMT: COMMON NORMALS: normocephalic, atraumatic and moist oral mucous membranes HEAD & SCALP: normocephalic and atraumatic Eye: COMMON NORMALS: Equal, round and reactive pupils present and EOMs intact bilaterally PUPIL: Yes Equal, round and reactive pupils present Neck/C-Spine: COMMON NORMALS: full ROM, no lymphadenopathy, supple and no meningeal signs Chest: COMMONS NORMALS: normal inspection of the chest and normal palpation of entire chest wall Resp: COMMON NORMALS: normal respiratory effort, No retractions and clear to auscultation bilaterally AUSCULTATION: clear to auscultation bilaterally Neuro: MENINGEAL SIGNS: Yes no meningeal signs Course 2 Vital Signs: Vital signs: Vital Signs Pulse Rate 52 L 03/11/23 14:30 Respiratory Rate 16 03/11/23 14:21 Blood Pressure 131/69 03/11/23 14:21 Pulse Oximetry 98 03/11/23 14:30 Oxygen Delivery Me thod Room Air 03/11/23 12:43 MDM - Weakness Medical Decision Making Physical exam completed and documented, I am significantly concerned given the patient's generalized fungal rash as well as his findings and his groin and perineum area. I am concerned that given his coexisting medical conditions of diabetes and his worsening weakness and fatigue as well as his perineal rash that there is a component of necrotizing fasciitis, I have discussed this information with the hospitalist who is admitting the patient to the ICU, I am concerned additionally with his cardiac history as he does have significantly tall T waves consistent with hyperkalemia, we will obtain a CBC and a CMP as well as blood cultures procalcitonin lactic acid to evaluate for infection and give antibiotics accordingly. After reviewing the patient's laboratory findings he does have a significant elevated potassium level and previous comparison of his BUN and creatinine and renal function demonstrate significant renal insufficiency I will provide stabilizing medications to help stabilize his myocardium given his elevated potassium level and his acute renal insufficiency. Medical Records I reviewed the patient's medical records. Lab Data I reviewed the patient's lab results. 03/11/23 12:17 03/11/23 12:17 Radiology Impressions Chest X-Ray 03/11/23 12:24 IMPRESSION: No lobar consolidation is appreciated.No interval acute cardiopulmonary changes are appreciated. Laboratory Results WBC 9.91 10^3/uL (3.29-11.43) 03/11/23 12:17 RBC 4.56 10^6/uL (3.85-5.65) 03/11/23 12:17 Hgb 13.30 g/dL (11.27-16.99) 03/11/23 12:17 Hct 41.9 % (37-53) 03/11/23 12:17 MCV 91.9 fl (82-101) 03/11/23 12:17 MCH 29.2 pg (27-33) 03/11/23 12: MCHC 31.7 g/dL (30-55) 03/11/23 12:17 RDW 15.7 % (12.1-15.1) H 03/11/23 12:17 Plt Count 222 10^3/cmm (157-399) 03/11/23 12:17 MPV 9.0 fL (7.4-10.4) 03/11/23 12:17 Neut % (Auto) 91.0 % 03/11/23 12:17 Lymph % (Auto) 2.5 % 03/11/23 12:17 Wirt % (Auto) 3.2 % 03/11/23 12:17 Eos % (Auto) 2.5 % 03/11/23 12:17 Baso % (Auto) 0.5 % 03/11/23 12:17 Neut # (Auto) 9.01 10^3/uL (1.8-7.7) H 03/11/23 12:17 Lymph # (Auto) 0.3 10^3/uL (0.8-4.8) L 03/11/23 12:17 Wirt # (Auto) 0.3 10^3/uL (0.2-0.9) 03/11/23 12:17 Eos # (Auto) 0.3 10^3/uL (0.0-0.8) 03/11/23 12:17 Baso # (Auto) 0.1 10^3/uL (0.0-0.1) 03/11/23 12:17 Nucleated RBC % (auto) 0 % 03/11/23 12:17 Nucleated RBCs # 0.0 /100WBC 03/11/23 12:17 ESR 65 mm/hr (0-10) H 03/11/23 12:17 Sodium 124 mmol/L (136-145) L 03/11/23 12:17 Potassium 7.6 mmol/L (3.5-5.1) H* 03/11/23 12:17 Chloride 95 mmol/L (98-107) L 03/11/23 12:17 Carbon Dioxide 10 mmol/L (22-29) L 03/11/23 12:17 Anion Gap 26.6 (5-19) H 03/11/23 12:17 BUN 152 mg/dL (8-23) H* D 03/11/23 12:17 Creatinine 5.1 mg/dL (0.7-1.2) H 03/11/23 12:17 GFR Calculation 11.6 mL/min (90-130) L 03/11/23 12:17 Glucose 201 mg/dL (65-115) H 03/11/23 12:17 POC Glucose 234 mg/dL (70-110) H 03/11/23 13:56 Calculated Osmolality 313 mOsm/kg (285-295) H 03/11/23 12:17 Calcium 9.4 mg/dL (8.5-10.5) 03/11/23 12:17 Magnesium 2.2 mg/dL (1.7-2.3) 03/11/23 12:17 Total Bilirubin 0.2 mg/dL (0.15-1.2) 03/11/23 12:17 AST 7 U/L (0-40) 03/11/23 12:17 ALT 7 U/L (0-41) 03/11/23 12:17 Alkaline Phosphatase 228 U/L (40-130) H 03/11/23 12:17 Troponin T Baseline 82 ng/L (0-15) H 03/11/23 12:17 C-Reactive Protein 55.8 mg/L (0.0-4.9) H 03/11/23 12:17 NT-Pro-B Natriuret Pep 1655 pg/mL (0-125) H 03/11/23 12:17 Total Protein 8.7 g/dL (6.6-8.7) 03/11/23 12:17 Albumin 3.8 g/dL (3.5-5.2) 03/11/23 12:17 Globulin 4.9 g/dL (1.3-4.6) H 03/11/23 12:17 Procalcitonin 0.61 ng/mL (0-0.5) H 03/11/23 12:17 Urine Color Yellow (Yellow) 03/11/23 12:42 Urine Appearance Hazy (CLEAR) A 03/11/23 12:42 Urine pH 5 (5-7) 03/11/23 12:42 Ur Specific [place] 1.020 (1.005-1.030) 03/11/23 12:42 Urine Protein Trace (Negative) 03/11/23 12:42 Urine Glucose (UA) 1+ (Normal) H 03/11/23 12:42 Urine Ketones Negative (Negative) 03/11/23 12:42 Urine Blood 2+ (Negative) H 03/11/23 12:42 Urine Nitrate Negative (Negative) 03/11/23 12:42 Urine Bilirubin Neg (Negative) 03/11/23 12:42 Urine Urobilinogen Norm mg/dL (Negative) 03/11/23 12:42 Ur Leukocyte Esterase 2+ (Negative) H 03/11/23 12:42 Urine RBC 5-10 /hpf (0-2) H 03/11/23 12:42 Urine WBC 15-25 /hpf (0-5) H 03/11/23 12:42 Ur Squamous Epith Cells 0-4 /hpf (0-5) H 03/11/23 12:42 Amorphous Sediment Trace /hpf 03/11/23 12:42 Urine Bacteria Trace /hpf (NONE) 03/11/23 12:42 Hyaline Casts 5-10 /lpf H 03/11/23 12:42 Urine Mucus 1+ /hpf 03/11/23 12:42 Influenza Type A Ag negative (Negative) 03/11/23 12:40 Influenza Type B Ag negative (Negative) 03/11/23 12:40 SARS-CoV-2 Ag (Rapid) negative (Negative) 03/11/23 12:40 All radiology interpretation(s) finalized by discharge ED provider radiology interpretation(s): FINDINGS: Subsegmental atelectasis LEFT greater than RIGHT lower lobes. Trace LEFT pleural fluid. Normal GE junction. Fatty atrophy of the pancreas. Splenic artery calcifications. Noncontrast spleen is normal. Splenic granulomas. Adrenal glands are normal. Noncontrast liver is normal. Cholelithiasis. Trace edema along the undersurface of the RIGHT hepatic lobe. Normal caliber abdominal aorta. Aortic calcification. Fuentes catheter. Sigmoid diverticulosis. No evidence of acute diverticulitis. Mild constipation in the transverse colon. Tiny fat-containing umbilical hernia. IMPRESSION: 1.? Cholelithiasis. No significant gallbladder wall thickening. Trace fluid along the adjacent undersurface RIGHT hepatic lobe. Gallbladder can be further evaluated with ultrasound. 2.? Slight subsegmental atelectasis in the lung bases. Trace LEFT pleural fluid. 3.? No hydronephrosis in either kidney. No obstructing renal or ureteral calculi. 4.? Fuentes catheter. 5.? Sigmoid diverticulosis. No evidence of acute diverticulitis. Critical Care Time Critical Care Time: Critical Care Time: Yes Total Critical Care Time: 90 Attestation: This case had a high probability of a clinically significant, sudden, or life threatening deterioration of this patient's condition which required my full and direct attention, intervention and personal management. Discharge Plan Discharge Patient Disposition: Admitted As Inpatient Clinical Impression: Acute hyperkalemia, Acute kidney insufficiency, Acute hyponatremia, Urinary tract infection, Cellulitis and abscess of buttock Condition: Stable Prescriptions: No Action albuterol sulfate 2.5 mg /3 mL (0.083 %) solution for nebulization 2.5 mg inhalation Q4H PRN (Reason: Shortness Of Breath) amiodarone 200 mg tablet 200 mg PO DAILY glipizide 10 mg tablet 10 mg PO BID amlodipine 10 mg tablet 10 mg PO DAILY metoprolol tartrate 50 mg tablet 50 mg PO BID Jardiance 25 mg tablet 25 mg PO DAILY nystatin 100,000 unit/gram powder 1 applic topical BID Qty: 30 0RF SSD 1 % cream 1 applic TOPICAL DAILY doxycycline hyclate 100 mg capsule 100 mg PO BID gabapentin 100 mg capsule 100 mg PO TID Novolog FlexPen U-100 Insulin 100 unit/mL (3 mL) insulin pen See Rx Instructions .ROUTE .COMPLEX Rx Instructions: INJECT SUBCUTANEOUSLY FOLLOWS PER SLIDING SCALE. BS 120-160=2 UNITS, 160-200-4 UNITS, 201-240=6 UNITS, 241-280=8 UNITS, 281-320=11 UNITS, GREATER THAN 321=15 UNITS. Levemir FlexPen 100 unit/mL (3 mL) insulin pen 40 unit SUBCUT DAILY Eliquis 5 mg tablet 5 mg PO BID Referrals: Brant Barahona [Primary Care Provider] - Coding Level of Care Code ED Physician Office Specialist for Courtney Doran
--- NOTE | 2023-03-11 12:24 | XRR_ITS ---
PROCEDURE INFORMATION: Exam: XR Chest Exam date and time: 03/11/2023 12:40 PM Age: 62 years old Clinical indication: Cough; Additional info: Cough/weakness.No history of trauma or recent surgery is provided. TECHNIQUE: Imaging protocol: Radiologic exam of the chest. 1image(s) are provided. Views: 1 view. COMPARISON: 1. CR XR chest 1V portable [id number] 10/03/2022 3:28 PM 2. CR XR chest 1V [id number] 12/23/2018 12:00 PM FINDINGS: Lungs: There is some granulomatous appearance similar. No lobar consolidation is appreciated. Pleural spaces: There is chronic costophrenic angle blunting and chronic adjacent scarring on the left similar overall. No pneumothorax is appreciated. Heart/Mediastinum: The cardiomediastinal silhouette is upper normal in size.This can be seen with central averaging as well as ramiro enlargement.No cardiac decompensation is appreciated. Diaphragm: The hemidiaphragms are symmetric. Bones/joints: Osseous alignment is maintained.No interval displaced fracture or dislocation is appreciated. Soft tissues: No radiopaque foreign body or subcutaneous emphysema is appreciated. Other findings: No other significant interval changes are appreciated. XR/XR chest 1V portable [id number] IMPRESSION: No lobar consolidation is appreciated.No interval acute cardiopulmonary changes are appreciated.
[2023-03-11 12:27] LABS: Glucose Point of Care 219 mg/dL (70-110)
[2023-03-11 12:28] LABS: Basophils # 0.1 10^3/uL (0.0-0.1); Basophils % 0.5 %; Eosinophils # 0.3 10^3/uL (0.0-0.8); Eosinophils % 2.5 %; Hematocrit 41.9 % (37-53); Lymphocytes # 0.3 10^3/uL (0.8-4.8); Lymphocytes % 2.5 %; Mean Corpuscular HGB Conc 31.7 g/dL (30-55); Mean Corpuscular Hemoglobin 29.2 pg (27-33); Mean Corpuscular Volume 91.9 fl (82-101); Monocytes # 0.3 10^3/uL (0.2-0.9); Monocytes % 3.2 %; Neutrophils # 9.01 10^3/uL (1.8-7.7); Nucleated Red Blood Cells % 0 %; Platelet Count 222 10^3/cmm (157-399); Red Blood Count 4.56 10^6/uL (3.85-5.65); Red Cell Distribution Width 15.7 % (12.1-15.1); White Blood Count 9.91 10^3/uL (3.29-11.43)
[2023-03-11 12:34] LABS: Erythrocyte Sedimentation Rate 65 mm/hr (0-10)
[2023-03-11 12:49] LABS: Alanine Aminotransferase 7 U/L (0-41); Albumin Level 3.8 g/dL (3.5-5.2); Alkaline Phosphatase 228 U/L (40-130); Anion Gap 26.6 (5-19); Aspartate Amino Transferase 7 U/L (0-40); C Reactive Protein 55.8 mg/L (0.0-4.9); Calcium 9.4 mg/dL (8.5-10.5); Carbon Dioxide 10 mmol/L (22-29); Chloride 95 mmol/L (98-107); Globulin 4.9 g/dL (1.3-4.6); Glomerular Filtration Rate 11.6 mL/min (90-130); Glucose 201 mg/dL (65-115); Magnesium 2.2 mg/dL (1.7-2.3); Sodium 124 mmol/L (136-145); Total Bilirubin 0.2 mg/dL (0.15-1.2); Total Protein 8.7 g/dL (6.6-8.7)
[2023-03-11 12:55] LABS: Blood Urea Nitrogen 152 mg/dL (8-23); Osmolality Calculated 313 mOsm/kg (285-295)
[2023-03-11 12:56] LABS: Potassium 7.6 mmol/L (3.5-5.1); Procalcitonin 0.61 ng/mL (0-0.5)
[2023-03-11 12:58] LABS: Urine Appearance Hazy (CLEAR); Urine Color Yellow (Yellow); pH Urine 5 (5-7)
[2023-03-11 12:59] LABS: Add Urine Microscopic? YES; Bilirubin Urine Neg (Negative); Blood Urine 2+ (Negative); Glucose Urine UA 1+ (Normal); Ketones Urine Negative (Negative); Leukocyte Esterase Urine 2+ (Negative); Nitrate Urine Negative (Negative); Protein Urine Trace (Negative); Urobilinogen Urine Norm (Negative)
[2023-03-11 13:06] LABS: Add Urine Culture? Yes; Amorphous Sediment Urine TRACE /hpf; Bacteria Urine TRACE /hpf; Mucus Urine 1+ /hpf; Squamous Epithelial Cell Urine 0-4 /hpf (0-5); WBC Urine 15-25 /hpf (0-5)
[2023-03-11 13:08] LABS: Influenza A by IFA negative (Negative); Influenza B by IFA negative (Negative)
[2023-03-11 13:09] LABS: SARS Covid-2 Antigen negative (Negative)
[2023-03-11] MEDS: dextrose 50% syringe 50 mL IVP ×3 (13:17→20:21)
[2023-03-11] MEDS: sodium chloride 0.9% 1,000 ML 999 ML IV (13:17)
[2023-03-11] MEDS: calcium gluconate 0.1 gm/mL 10% SDV 10mL 1 GM IVP (13:18)
[2023-03-11] MEDS: insulin regular-human 100 units/1 mL 20 UNIT IVP (13:18)
[2023-03-11] MEDS: sodium bicarbonate 8.4% 1 mEq/mL 50mL Syr 50 MEQ IVP (13:19)
--- NOTE | 2023-03-11 13:22 | CT_ITS ---
WS: [id number] CT ABDOMEN PELVIS TECHNIQUE: Noncontrast CT of the abdomen and pelvis with coronal and sagittal reformatted images. CLINICAL INFORMATION: acute renal insuffiency COMPARISON: None. DLP: 1240.[address] scans at [facility] use at least one of these dose optimization techniques: automated e xposure control; mA and/or kV adjustment per patient size (includes targeted exams where dose is matc hed to clinical indication); or iterative reconstruction. FINDINGS: Subsegmental atelectasis LEFT greater than RIGHT lower lobes. Trace LEFT pleural fluid. Normal GE nereida ction. Fatty atrophy of the pancreas. Splenic artery calcifications. Noncontrast spleen is normal. Sp lenic granulomas. Adrenal glands are normal. Noncontrast liver is normal. Cholelithiasis. Trace edema along the undersurface of the RIGHT hepatic lobe. Normal caliber abdominal aorta. Aortic calcification. Fuentes catheter. Sigmoid diverticulosis. No evid ence of acute diverticulitis. Mild constipation in the transverse colon. Tiny fat-containing umbilica l hernia. IMPRESSION: 1. Cholelithiasis. No significant gallbladder wall thickening. Trace fluid along the adjacent unders urface RIGHT hepatic lobe. Gallbladder can be further evaluated with ultrasound. 2. Slight subsegmental atelectasis in the lung bases. Trace LEFT pleural fluid. 3. No hydronephrosis in either kidney. No obstructing renal or ureteral calculi. 4. Fuentes catheter. 5. Sigmoid diverticulosis. No evidence of acute diverticulitis.
--- NOTE | 2023-03-11 13:23 | ECG_ITS ---
[facility] Test Date: 2023-03-11 Pat Name: Geronimo Barahona Department: Room: Gender: Male Jr. Systems Administrator: : 1960 Requested By: Cory Abreu Order Number: [id number] Grace MD: Collette San M.D. Measurements Intervals [place] Rate: 56 P: 0 NV: 0 QRS: 99 QRSD: 181 T: 68 QT: 458 QTc: 445 Interpretive Statements ATRIAL FIBRILLATION WITH SLOW VENTRICULAR RESPONSE RIGHT BUNDLE BRANCH BLOCK [120+ ms QRS DURATION, UPRIGHT V1, 40+ ms S IN I/aVL/V4/V5/V6] Compared to ECG 10/03/2022 16:40:24 Right bundle-branch block now present Sinus rhythm no longer present Electronically Signed On 03-11-2023 15:23:46 CDT by Collette San M.D. [id number]
--- NOTE | 2023-03-11 13:44 | PC.PHAR ---
UNABLE TO VERIFY WITH SPOUSE DUE TO PHONE DISCONNECTED. CURRENT EXTERNAL MED LIST USED. VERIFIED WITH MAGNUS NEAL.
[2023-03-11] MEDS: metroNIDAZOLE IV 500 MG/100 ML PREMIX 100 MG IV (13:50)
[2023-03-11 14:01] LABS: Glucose Point of Care 234 mg/dL (70-110)
[2023-03-11 14:15] LABS: Troponin(5th) Baseline 82 ng/L (0-15)
[2023-03-11 14:21] LABS: NT Pro B Type Natriuretic Pept 1655 pg/mL (0-125)
[2023-03-11 14:53] LABS: Troponin 5 2HR 78.37 ng/L (0-15)
[2023-03-11 14:57] LABS: Troponin 5 2HR Delta -3.63 ABS# (0-10)
[2023-03-11] MEDS: piperacillin-tazobactam 2.25 GM in sodium chloride 0.9% (plus) 50 ML IV (14:59)
--- NOTE | 2023-03-11 15:40 | PC.NURSE ---
Arrived from ED via stretcher, AO x4
--- NOTE | 2023-03-11 16:43 | ECG_ITS ---
[facility] Test Date: 2023-03-11 Pat Name: Geronimo Barahona Department: Room: ICU12 Gender: Male Hepatology Physician: : 1960 Requested By: Cory Abreu Order Number: [id number] Lesly MD: Collette San M.D. Measurements Intervals [place] Rate: 57 P: 0 AK: 0 QRS: 91 QRSD: 178 T: 45 QT: 466 QTc: 456 Interpretive Statements ATRIAL FIBRILLATION WITH SLOW VENTRICULAR RESPONSE RIGHT BUNDLE BRANCH BLOCK [120+ ms QRS DURATION, UPRIGHT V1, 40+ ms S IN I/aVL/V4/V5/V6] Compared to ECG 03/11/2023 13:32:19 No significant changes Electronically Signed On 03-11-2023 17:44:07 CDT by Collette San M.D. [id number]
--- NOTE | 2023-03-11 17:26 | USCV_ITS ---
Geronimo Barahona Age: 62 Gender: M : 1960 Exam Date: 03/11/2023 18:08 Ordering Phys: Jen Albright MD Technologist: Maria Elena Lopez [place] [facility] [place]: NSTEMI, history of atrial fibrillation s/p cardioversion, history of CHF. BP: 131 / 69 HR: 63 Rhythm: Sinus Technical Quality: Adequate with OPTISON MEASUREMENTS (Male / Female) Normal Values 2D ECHO LV Diastolic Diameter PLAX 4.0 cm 4.2 - 5.9 / 3.9 - 5.3 cm LV Systolic Diameter PLAX 2.3 cm IVS Diastolic Thickness 2.0 cm 0.6 - 1.0 / 0.6 - 0.9 cm IVS Systolic Thickness 2.5 cm LVPW Diastolic Thickness 1.8 cm 0.6 - 1.0 / 0.6 - 0.9 cm LVPW Systolic Thickness 2.1 cm LVOT Diameter 2.1 cm LV Ejection Fraction 2D Teich 73.0 % LV Ejection Fraction MOD 2C 62.3 % LV Ejection Fraction 2C AL 61.4 % LA Diameter 5.2 cm LA Width 4.6 cm LA Height 5.3 cm RA Width 4.2 cm RA Height 4.8 cm Aorta at Sinotubular Diameter 3.5 cm IVC Diameter 2.0 cm M-MODE Aortic Annulus Diameter 3.0 cm LA Ao Ratio MM 1.7 MV E Point Septal Separation 0.4 cm DOPPLER AV Peak Velocity 167.0 cm/s LVOT Peak Velocity 194.0 cm/s AV Area Cont Eq vti 2.8 cm squared AV Area Cont Eq pk 4.0 cm squared MV Peak Velocity 144.0 cm/s MV Area PHT 1.4 cm squared Mitral E to A Ratio 0.9 MV E' Velocity 67.5 cm/s Mitral E to MV E' Ratio 19.3 Mitral E to LV E' Lateral Ratio 18.0 Mitral E to LV E' Septal Ratio 20.9 TV Peak E Velocity 50.0 cm/s PV Peak Velocity 146.0 cm/s RV Acceleration Time 0.1 s RV Ejection Time 0.3 s RV AcT/ET 0.3 FINDINGS Left Ventricle Normal left ventricular size and systolic function, EF 69 %. No regional wall motion abnormalities. Right Ventricle Possibly of normal size and ejection fraction. Only parasternal views were obtained Right Atrium Right atrium not well visualized. Left Atrium Mildly increased left atrial size. Mitral Valve Moderate mitral annular calcification. Aortic Valve Thickened aortic valve. Tricuspid Valve Tricuspid valve not well visualized. Pulmonic Valve Pulmonic valve not well visualized. Pericardium No pericardial effusion. Aorta Normal aortic annulus size. IVC Inferior vena cava not visualized. CONCLUSIONS Normal left ventricular size and systolic function, EF 69 %. No regional wall motion abnormalities. (Echo contrast - Optison was used to delineate the endocardium and to estimate the LV ejection fraction) Mildly increased left atrial size. There is no pericardial effusion. Technically difficult study because of the poor ultrasonic window. Dr Ramesh Ryan MD [facility] (Electronically Signed) Final Date: 12 March 2023 08:59 S
--- NOTE | 2023-03-11 17:29 | PM.HP ---
Providers/Chief Complaint Admitting Physician: Jen Albright MD Primary Care Provider: Brant Jun Chief Complaint: Weakness History of Present Illness Geronimo Barahona is a 62 year old male With a reported past medical history of atrial fibrillation, CHF, diabetes mellitus, who is presenting to the hospital today with increasing generalized weakness over the past 7 to 10 days. Patient states he has been unwell recently, he has been experiencing cellulitis of his lower extremities for which she was started on doxycycline. He does not feel this has made any difference. Today he states he was weak enough to the point of not being able to get out of bed. On arrival at ER he was noted to have multiple electrolyte abnormalities including severe hyperkalemia greater than 7, FRANCISCO with creatinine 5.1. Previous baseline appears to be between 1.5-2.1. He has had no appetite. He has not had any recent diarrheal illness or abdominal pain. Denies any current chest discomfort. EKG noted A-fib with slow ventricular response with bradycardia at 40 bpm. Since receiving calcium gluconate he has improved heart rate at 68 bpm at the time of my assessment. He denies being started on any recent medications other than the doxycycline recently.Denies any recent fever at home. Denies any fever at home. Denies any NSAID use. He does not know all of his medications and reports that his takes care of most of his meds. Review of Systems General: Reports: 10 or more systems reviewed and unremarkable except in HPI and below Const: Denies: fever(s), chills or body aches Eyes: Denies: change in vision, blurry vision or photophobia ENMT: Reports: hoarseness; Denies: throat pain, enlarged tonsils, odynophagia or nasal congestion Card: Denies: chest pain, palpitations, irregular heart rhythm, edema, swelling of feet/ankles, lightheadedness, pre-syncope, dyspnea on exertion or orthopnea Resp: Denies: dyspnea, productive cough, non-productive cough, wheezing, stridor, pain on inspiration, change in phlegm color, hemoptysis or chest congestion GI: Denies: abdominal pain, nausea, vomiting, hematemesis, coffee ground emesis, dysphagia, heartburn, diarrhea, constipation, GI cramping, change in stool character, hematochezia or melena : Denies: flank pain, dysuria, urinary frequency, urinary urgency, urinary hesitancy or hematuria Musc: Denies: neck pain, back pain, extremity pain, joint swelling, joint warmth or deformity Neuro: Denies: headache(s), numbness in extremities, weakness in extremities, sensory changes, difficulty walking, frequent falls, dizziness, vertigo, behavioral changes, Slurred speech present or seizure-like activity Psych: Denies: anxiety, depression, suicidal ideation or homicidal ideation Endo: Denies: polyuria, polydipsia, tired all the time, cold intolerance or hot flashes Jerome/Lymph: Denies: easy bruising or easy bleeding Medications/Allergies Home Medications Medication Instructions Recorded Confirmed Last Taken Type albuterol sulfate 2.5 mg/3 mL 2.5 mg inhalation Q4H PRN 10/03/22 03/11/23 Unknown History (0.083 %) solution for nebulization Shortness Of Breath amiodarone 200 mg tablet 200 mg PO DAILY 10/03/22 03/11/23 Unknown History amlodipine 10 mg tablet 10 mg PO DAILY 10/03/22 03/11/23 Unknown History empagliflozin 25 mg tablet 25 mg PO DAILY 10/03/22 03/11/23 Unknown History (Jardiance) glipizide 10 mg tablet 10 mg PO BID 10/03/22 03/11/23 Unknown History metoprolol tartrate 50 mg tablet 50 mg PO BID 10/03/22 03/11/23 Unknown History nystatin 100,000 unit/gram topical 1 applic topical BID #30 grams 10/05/22 03/11/23 Unknown Rx powder apixaban 5 mg tablet (Eliquis) 5 mg PO BID 03/11/23 03/11/23 Unknown History doxycycline hyclate 100 mg capsule 100 mg PO BID 03/11/23 03/11/23 Unknown History gabapentin 100 mg capsule 100 mg PO TID 03/11/23 03/11/23 Unknown History insulin aspart U-100 100 unit/mL See Rx Instructions .Route .COMPLEX 03/11/23 03/11/23 Unknown History (3 mL) subcutaneous pen (Novolog FlexPen U-100 Insulin aspart) insulin detemir U-100 100 unit/mL 40 unit SUBCUT DAILY 03/11/23 03/11/23 Unknown History (3 mL) subcutaneous pen (Levemir FlexPen) silver sulfadiazine 1 % topical 1 applic topical DAILY 03/11/23 03/11/23 Unknown History cream (SSD) Allergies Allergy/AdvReac Type Severity Reaction Status Date / Time No Known Allergies Allergy Unverified 10/03/22 10:36 PFSH Acute PFSH: Medical History (Updated 03/11/23 @ 17:35 by Jen Albright MD) FRANCISCO (acute kidney injury) Bilateral lower leg cellulitis CHF (congestive heart failure) Chronic respiratory failure with hypoxia COPD (chronic obstructive pulmonary disease) DKA (diabetic ketoacidosis) DM2 (diabetes mellitus, type 2) Falls Generalized weakness Hyperkalemia Hyponatremia Metabolic acidosis Social History Smoking and tobacco/nicotine status: former use of tobacco/nicotine Vitals/I&O/Wt Last Vital Signs Pulse 52 L 03/11/23 14:30 Resp 16 03/11/23 14:21 BP 131/69 03/11/23 14:21 Pulse Ox 98 03/11/23 14:30 O2 Del Method Room Air 03/11/23 12:43 Weight last 48 hrs Weight 149.685 kg Physical Exam Narrative: General: No acute distress, AO x3 HEENT: PERRLA, pupils bilaterally equal and reactive, pallors not present Chest: Normal vesicular breath sounds, no added sounds, equal good air entry bilaterally CVS: S1-S2 regular, no murmurs, no tachycardia, no gallops, no rubs Abdomen: Soft, nontender, no organomegaly, bowel sounds present Neuro: No focal deficits, no facial deformity, AO x3, power 5/5 in all limbs Urinary Catheter Management: Fuentes: Cath Placed During This Visit: yes Urinary Catheter Date of Insertion: 03/11/23 Urinary Catheter Time of Insertion: 12:44 Data 03/11/23 12:17 03/11/23 12:17 Micro: Microbiology 03/11/23 12:19 Blood Culture - Preliminary Blood SPECIMEN COLLECTED 03/11/23 12:17 Blood Culture - Preliminary Blood SPECIMEN COLLECTED A&P Assessment and plan (1) Acute kidney insufficiency: acute kidney failure with creatinine at 5.1. Associated with hyperkalemia. Unclear cause currently. Review of his medications does not show any obvious nephrotoxic medications. CT of the abdomen and pelvis performed today negative for any hydronephrosis or obstruction along the tract. He has been on doxycycline recently however not known to be associated with acute kidney failure typically. Blood cultures have been taken. Potentially acute kidney failure may be related to acute infection as evidenced by cellulitis. Fuentes catheter to monitor strict NORBERT's. Check UA, urine lites, urine eosinophil Nephrology consult Avoid nephrotoxic medications. (2) Acute hyperkalemia: Acute hyperkalemia with associated EKG changes Potassium at 7.6 upon arrival. Tall peaked T waves, slow A-fib RVR. Calcium gluconate given in the ER. We will repeat 1 g IV now over the next 15 minutes. Albuterol inhalation Insulin 10 U / dextrose 50% now kayexalate po 15gm now Repeat CMP after these interventions (3) Cellulitis: Worsening in spite of outpatient doxycycline , failure of outpatient therapy start empiric zosyn and vancomycin for cellulitis with fluconazole for severe intertrigo all medications dose adjusted (4) Anasarca: reported past h/o CHF , umable to find recent echo will order Lasix 60mg iv x 1 now, thereafter depending on response Patient not typically on diuretics as outpatient (5) Afib: slow ventricular rate EKg changes likely related to hyperkalemia (6) Bradycardia: (7) CHF (congestive heart failure): (8) Elevated troponin: Elevated troponin ranging 70-80 without significant delta at 2 or 6 hours. Suspect this to be related to acute kidney injury versus demand ischemia. No chest pain. We will check echocardiogram to estimate underlying EF assess for CHF or any regional wall motion abnormalities which may make us more concerned about hyperkalemia. Plan DVT prophylaxis: Heparin 5000 every 12. Patient is typically on Eliquis as outpatient for his A-fib. We are holding Eliquis now in case patient needs hemodialysis with placement of an HD catheter. PUD ppx: protonix Full code Attestations Medical Necessity Statement*: > 2 midnight admission anticipated Critical Care Time: The high probability of a clinically significant, sudden or life threatening deterioration of the patient's [renal, cardiac] system(s) required my full and direct attention, intervention and personal management. The critical care time is as shown. This time is in addition to time spent performing any reported procedures but includes the following: [x] Data and vital sign review and interpretation [x] Patient assessment, examination and intervention [x] Documentation [x] Medication orders and management Critical Care Time (min): 60 Coding Level of Care Code Acute Code for Chg Fwd Diagnoses Acute kidney insufficiency N28.9 Acute hyperkalemia E87.5 Cellulitis L03.90 Anasarca R60.1 Afib I48.91 Bradycardia R00.1 CHF (congestive heart failure) I50.9 Elevated troponin R79.89
[2023-03-11 17:37] LABS: Alanine Aminotransferase 6 U/L (0-41); Albumin Level 3.1 g/dL (3.5-5.2); Alkaline Phosphatase 192 U/L (40-130); Anion Gap 23.8 (5-19); Aspartate Amino Transferase 6 U/L (0-40); Carbon Dioxide 11 mmol/L (22-29); Chloride 103 mmol/L (98-107); Globulin 4.4 g/dL (1.3-4.6); Glomerular Filtration Rate 11.6 mL/min (90-130); Glucose 65 mg/dL (65-115); Sodium 131 mmol/L (136-145); Total Bilirubin 0.3 mg/dL (0.15-1.2); Total Protein 7.5 g/dL (6.6-8.7)
[2023-03-11 17:41] LABS: Potassium 6.8 mmol/L (3.5-5.1)
[2023-03-11 17:49] LABS: Osmolality Calculated 315 mOsm/kg (285-295)
[2023-03-11 17:51] LABS: Blood Urea Nitrogen 137 mg/dL (8-23)
[2023-03-11] MEDS: heparin 5,000 unit/mL INJ 1 mL 5000 UNIT SUBCUT (18:07)
[2023-03-11] MEDS: fluconazole 100 mg Tablet PO (18:07)
[2023-03-11] MEDS: calcium gluconate 0.9% NaCL 1 GM/50 ML PREMIX IV ×3 (18:07→21:01)
[2023-03-11] MEDS: insulin regular-human 10 UNIT in SYRINGE 1 EACH 2 UNIT IVP (18:08)
[2023-03-11] MEDS: FUROsemide 10 mg/mL SDV 4mL 40 MG IVP (18:08)
[2023-03-11] MEDS: FUROsemide 10 mg/mL SDV 2mL 20 MG IVP (18:08)
[2023-03-11 18:20] LABS: Potassium, Radom Urine 41 mmol/L
[2023-03-11 18:36] LABS: Urine Random Chloride 11 mmol/L
[2023-03-11] MEDS: sodium polystyrene sulfonate 15 gm/60 mL Btl PO (18:36)
[2023-03-11 19:04] LABS: Troponin 5 6HR 78.39 ng/L (0-15)
[2023-03-11 19:05] LABS: Troponin 5 6HR Delta -3.61 ng/L (0-12)
[2023-03-11] MEDS: morphine 4 mg/mL SDV 1 mL 2 MG IVP (19:07)
[2023-03-11 19:09] LABS: Lactate (Lactic Acid level) 0.9 mmol/L (0.5-2.2)
[2023-03-11 19:44] LABS: Potassium 6.6 mmol/L (3.5-5.1)
--- NOTE | 2023-03-11 19:44 | ECG_ITS ---
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 Measurements Intervals [place] Rate: 57 P: 39 NH: 202 QRS: 56 QRSD: 113 T: 49 QT: 419 QTc: 409 Interpretive Statements ATRIAL FIBRILLATION WITH SLOW VENTRICULAR RESPONSE MODERATE INTRAVENTRICULAR CONDUCTION DELAY [110+ ms QRS DURATION] Compared to ECG 03/11/2023 16:43:31 Intraventricular conduction delay now present Atrial fibrillation no longer present Right bundle-branch block no longer present Electronically Signed On 03-11-2023 22:11:15 CDT by Collette San M.D. [id number]
--- NOTE | 2023-03-11 20:05 | PM.CONSULT ---
Providers/Reason For Consult Consulting Physician/Specialty*: kommana/Nephrology Reason for Consult*: Hyperkalemia Attending Physician: Jen Albright MD Primary Care Provider: Brant Barahona History of Present Illness History of Present Illness Geronimo Barahona is a 62 year old male Patient is a 62-year-old male with past medical history of A-fib CHF, diabetes, hypertension presented today due to generalized weakness. Recently had lower extremity cellulitis and was treated with doxycycline. In the ED patient noted to have stable vital signs, was slightly bradycardic in the 50s lab data was significant for hyperkalemia with a potassium of 7.6 and creatinine of 5.1. His baseline creatinine is anywhere from 1.5-2 range. Also complains of decreased p.o. intake and decreased appetite. He denies any NSAID use. No recent IV contrast studies. Review of Systems Narrative: Other ROS negative Medications/Allergies Home Medications Medication Instructions Recorded Confirmed Last Taken Type albuterol sulfate 2.5 mg/3 mL 2.5 mg inhalation Q4H PRN 10/03/22 03/11/23 Unknown History (0.083 %) solution for nebulization Shortness Of Breath amiodarone 200 mg tablet 200 mg PO DAILY 10/03/22 03/11/23 Unknown History amlodipine 10 mg tablet 10 mg PO DAILY 10/03/22 03/11/23 Unknown History empagliflozin 25 mg tablet 25 mg PO DAILY 10/03/22 03/11/23 Unknown History (Jardiance) glipizide 10 mg tablet 10 mg PO BID 10/03/22 03/11/23 Unknown History metoprolol tartrate 50 mg tablet 50 mg PO BID 10/03/22 03/11/23 Unknown History nystatin 100,000 unit/gram topical 1 applic topical BID #30 grams 10/05/22 03/11/23 Unknown Rx powder apixaban 5 mg tablet (Eliquis) 5 mg PO BID 03/11/23 03/11/23 Unknown History doxycycline hyclate 100 mg capsule 100 mg PO BID 03/11/23 03/11/23 Unknown History gabapentin 100 mg capsule 100 mg PO TID 03/11/23 03/11/23 Unknown History insulin aspart U-100 100 unit/mL See Rx Instructions .Route .COMPLEX 03/11/23 03/11/23 Unknown History (3 mL) subcutaneous pen (Novolog FlexPen U-100 Insulin aspart) insulin detemir U-100 100 unit/mL 40 unit SUBCUT DAILY 03/11/23 03/11/23 Unknown History (3 mL) subcutaneous pen (Levemir FlexPen) silver sulfadiazine 1 % topical 1 applic topical DAILY 03/11/23 03/11/23 Unknown History cream (SSD) Allergies Allergy/AdvReac Type Severity Reaction Status Date / Time No Known Allergies Allergy Unverified 10/03/22 10:36 Current Medications Generic Name Dose Route Start Last Admin Trade Name Freq PRN Reason Stop Dose Admin Fluconazole 100 mg 03/11/23 17:30 03/11/23 18:07 Fluconazole 100 Mg Tablet PO 100 mg DAILY JAIDEN Administration Heparin Sodium (Porcine) 5,000 unit 03/11/23 17:30 03/11/23 18:07 Heparin 5,000 Unit/Ml Inj 1 Ml SUBCUT 5,000 unit Q12H JAIDEN Administration Insulin Human Lispro 0 unit 03/11/23 18:00 03/11/23 18:30 Insulin Lispro 100 Unit/1 Ml SUBCUT Not Given WM&BEDTIME JAIDEN Protocol Morphine Sulfate 2 mg 03/11/23 17:21 03/11/23 19:07 Morphine 4 Mg/Ml Sdv 1 Ml IVP 2 mg Q6H PRN Administration SEVERE PAIN PFSH Acute PFSH: Medical History (Updated 03/11/23 @ 17:35 by Jen Albright MD) FRANCISCO (acute kidney injury) Bilateral lower leg cellulitis CHF (congestive heart failure) Chronic respiratory failure with hypoxia COPD (chronic obstructive pulmonary disease) DKA (diabetic ketoacidosis) DM2 (diabetes mellitus, type 2) Falls Generalized weakness Hyperkalemia Hyponatremia Metabolic acidosis Social History Smoking and tobacco/nicotine status: former use of tobacco/nicotine Vitals/I&O/Wt Last Vital Signs Pulse 98 03/11/23 19:45 Resp 16 03/11/23 19:45 BP 143/45 03/11/23 18:30 Pulse Ox 97 03/11/23 19:45 O2 Del Method Nasal Cannula 03/11/23 19:45 O2 Flow Rate 2 03/11/23 19:45 03/11/23 03/11/23 03/11/23 06:59 14:59 22:59 Intake Total 1200 / 1200 Balance 1200 / 1200 Weight last 48 hrs Weight 149.685 kg Physical Exam Narrative: awake ,alert HEENT PEERLA S1S2 RRR per report Lungs clear per report LE cellulitis Urinary Catheter Management: Fuentes: Cath Placed During This Visit: yes Reason for Continuing Indwelling Catheter: Accurate Measurement of Urinary Output in Critically Ill Patients Urinary Catheter Date of Insertion: 03/11/23 Urinary Catheter Time of Insertion: 12:44 Data 03/11/23 12:17 03/11/23 18:22 Micro: Microbiology 03/11/23 12:19 Blood Culture - Preliminary Blood SPECIMEN COLLECTED 03/11/23 12:17 Blood Culture - Preliminary Blood SPECIMEN COLLECTED A&P Assessment and plan (1) Acute kidney insufficiency: Plan 1. Acute on chronic kidney disease stage III: Baseline creatinine in the 1.5-2 range now has FRANCISCO with a creatinine of 5.1 associated with severe hyperkalemia and severe metabolic acidosis.-Potassium is being managed medically if no improvement on repeat potassium will require dialysis. -Fuentes catheter placed and monitor urine output -Ordered IV Lasix, monitor response -I suspect patient has some progression of his CKD , would likely need dialysis. 2. Severe hyperkalemia: Potassium 7.6 on presentation improved to 6.6 currently. Again ordered med management including calcium, insulin plus dextrose, Kayexalate, bicarbonate -If no improvement will require dialysis, low potassium diet -Check CK level, UA, urine electrolytes and urine eosinophils. 3. Severe AG metabolic acidosis: From renal insufficiency, placed on bicarbonate drip and 2 Amps of bicarb pushes, also added Bicitra -Follow-up with repeat BMP in 4 hours 4. Lower extremity cellulitis, failed outpatient oral therapy currently on Zosyn and vancomycin 5. History of A-fib, was bradycardic on presentation now improved pulse is in the 80-90 range currently 6. History of CHF, repeat echo pending using audiovisual cart. Time spent 40 minutes. Consult Attestations Medical Necessity Statement: per medicine team Coding Level of Care Code Acute Code for g Fwd Diagnoses Acute kidney insufficiency N28.9
[2023-03-11] MEDS: FUROsemide 10 mg/mL SDV 10mL 80 MG IVP (20:21)
[2023-03-11] MEDS: sodium bicarbonate 8.4% 1 mEq/mL 50mL Syr 100 MEQ IVP (20:21)
[2023-03-11 20:22] LABS: Urine Random Sodium < 10 mmol/L
[2023-03-11] MEDS: sodium polystyrene sulfonate 15 gm/60 mL Btl 60 GM PO (20:24)
[2023-03-11] MEDS: gabapentin 100 mg Capsule PO (20:25)
[2023-03-11] MEDS: piperacillin-tazobactam 3.375 GM in sodium chloride 0.9% (plus) 50 ML IV (20:25)
[2023-03-11] MEDS: vancomycin 2,000 MG/400 ML PIGGYBACK 200 MG IV (20:29)
[2023-03-11] MEDS: sodium bicarbonate 150 MEQ in dextrose 5% 1,000 ML 100 MEQ IV ×2 (20:29→21:21)
[2023-03-11] MEDS: insulin regular-human 10 UNIT in SYRINGE 1 EACH IVP (20:29)
[2023-03-11] MEDS: citric acid-sodium citrate 30 mL UDC 60 ML PO (21:00)
[2023-03-11] MEDS: acetaminophen 325 mg Tablet 650 MG PO (21:44)
[2023-03-11 21:48] LABS: Eosinophil Urine No Eosinophils Seen; Urine Eosinophil Count 0 (0-0)
[2023-03-11 22:26] LABS: Glucose Point of Care 91 mg/dL (70-110)
[2023-03-11 22:36] LABS: Anion Gap 23.3 (5-19); Calcium 9.8 mg/dL (8.5-10.5); Carbon Dioxide 15 mmol/L (22-29); Chloride 101 mmol/L (98-107); Glomerular Filtration Rate 12.8 mL/min (90-130); Glucose 94 mg/dL (65-115); Potassium 5.3 mmol/L (3.5-5.1); Sodium 134 mmol/L (136-145)
[2023-03-11 22:44] LABS: Osmolality Calculated 324 mOsm/kg (285-295)
[2023-03-11 22:45] LABS: Blood Urea Nitrogen 142 mg/dL (8-23)
[2023-03-12] VITALS (84 sets, daily range): BP systolic 96–156; BP diastolic 44–86; PULSE 65–93; RESP 6–25; TEMP 36.5; O2SAT 90–100
[2023-03-12] MEDS: morphine 4 mg/mL SDV 1 mL 2 MG IVP ×2 (02:53→09:15)
[2023-03-12 04:56] LABS: Basophils # 0.1 10^3/uL (0.0-0.1); Basophils % 0.6 %; Eosinophils # 0.5 10^3/uL (0.0-0.8); Eosinophils % 5.9 %; Hematocrit 35.9 % (37-53); Lymphocytes # 0.3 10^3/uL (0.8-4.8); Lymphocytes % 2.9 %; Mean Corpuscular HGB Conc 32.9 g/dL (30-55); Mean Corpuscular Hemoglobin 29.4 pg (27-33); Mean Corpuscular Volume 89.3 fl (82-101); Mean Platelet Volume 9.3 fL (7.4-10.4); Monocytes # 0.5 10^3/uL (0.2-0.9); Monocytes % 6.3 %; Neutrophils # 7.12 10^3/uL (1.8-7.7); Neutrophils % 83.9 %; Nucleated Red Blood Cells % 0 %; Platelet Count 191 10^3/cmm (157-399); Red Blood Count 4.02 10^6/uL (3.85-5.65); Red Cell Distribution Width 15.5 % (12.1-15.1); White Blood Count 8.48 10^3/uL (3.29-11.43)
[2023-03-12] MEDS: FUROsemide 10 mg/mL SDV 10mL 80 MG IVP (04:56)
[2023-03-12] MEDS: piperacillin-tazobactam 3.375 GM in sodium chloride 0.9% (plus) 50 ML IV ×3 (04:56→21:28)
[2023-03-12] MEDS: heparin 5,000 unit/mL INJ 1 mL 5000 UNIT SUBCUT ×2 (04:56→17:19)
[2023-03-12 05:14] LABS: Alanine Aminotransferase < 5 U/L (0-41); Albumin Level 2.9 g/dL (3.5-5.2); Alkaline Phosphatase 169 U/L (40-130); Anion Gap 22.5 (5-19); Aspartate Amino Transferase 8 U/L (0-40); Calcium 8.7 mg/dL (8.5-10.5); Carbon Dioxide 17 mmol/L (22-29); Chloride 101 mmol/L (98-107); Globulin 3.9 g/dL (1.3-4.6); Glomerular Filtration Rate 15.8 mL/min (90-130); Glucose 138 mg/dL (65-115); Potassium 4.5 mmol/L (3.5-5.1); Sodium 136 mmol/L (136-145); Total Bilirubin 0.2 mg/dL (0.15-1.2); Total Protein 6.8 g/dL (6.6-8.7)
[2023-03-12] MEDS: acetaminophen 325 mg Tablet 650 MG PO (05:19)
[2023-03-12 05:24] LABS: Blood Urea Nitrogen 137 mg/dL (8-23); Osmolality Calculated 329 mOsm/kg (285-295)
[2023-03-12] MEDS: perflutren protein-a microsphr 0.22 mg/mL SDV 3 mL IV (05:49)
[2023-03-12 07:16] LABS: Glucose Point of Care 151 mg/dL (70-110)
[2023-03-12] MEDS: insulin lispro 100 unit/1 mL SUBCUT ×3 (07:48→17:19)
[2023-03-12] MEDS: fluconazole 100 mg Tablet PO (08:06)
[2023-03-12] MEDS: gabapentin 100 mg Capsule PO ×3 (08:06→21:27)
[2023-03-12] MEDS: sodium bicarbonate 150 MEQ in dextrose 5% 1,000 ML 100 MEQ IV (08:06)
[2023-03-12] MEDS: pantoprazole DR 40 mg Tablet PO (08:07)
--- NOTE | 2023-03-12 09:06 | PM.PN ---
Subjective Subjective: doing better on 3L Medications: Reviewed: Yes Vitals/I&O/Wt Last Vital Signs Pulse 79 03/12/23 06:00 Resp 23 H 03/12/23 06:00 BP 156/64 03/12/23 06:00 Pulse Ox 100 03/12/23 05:30 O2 Del Method Nasal Cannula 03/11/23 19:45 O2 Flow Rate 2 03/11/23 19:45 03/11/23 03/12/23 03/12/23 22:59 06:59 14:59 Intake Total 1786.867 / 1786.867 50 / 9703.464 2456 / 1075 Output Total 2300 / 2300 Balance 1786.867 / 1786.867 -2250 / -743.241 4927 / 1075 Weight last 48 hrs Weight 122.47 kg Weight 149.685 kg Physical Exam Narrative: awake ,alert HEENT PEERLA S1S2 RRR per report Lungs clear per report LE cellulitis Urinary Catheter Management: Fuentes: Cath Placed During This Visit: yes Reason for Continuing Indwelling Catheter: Accurate Measurement of Urinary Output in Critically Ill Patients Urinary Catheter Date of Insertion: 03/11/23 Urinary Catheter Time of Insertion: 12:44 Data 03/12/23 04:35 03/12/23 04:35 Micro: Microbiology 03/11/23 12:42 Urine Culture - Preliminary Urine,Clean Catch 03/11/23 12:19 Blood Culture - Preliminary Blood SPECIMEN COLLECTED 03/11/23 12:17 Blood Culture - Preliminary Blood SPECIMEN COLLECTED A&P Assessment and plan (1) Acute kidney insufficiency: Plan 1. Acute on chronic kidney disease stage III: Baseline creatinine in the 1.5-2 range now has FRANCISCO with a creatinine of 5.1 associated with severe hyperkalemia and severe metabolic acidosis.- -Fuentes catheter placed and monitor urine output -Ordered IV Lasix, monitor response -I suspect patient has some progression of his CKD --Check CK level, UA, urine electrolytes and urine eosinophils. 2. Severe hyperkalemia: Potassium 7.6 on presentation improved to 4.5 currently. , low potassium diet 3. Severe AG metabolic acidosis: From renal insufficiency, placed on bicarbonate drip , also added Bicitra bicarb was 11 on presentation , improved to 17 today will dc bicarb drip in few hours 4. Lower extremity cellulitis, failed outpatient oral therapy currently on Zosyn and vancomycin 5. History of A-fib, was bradycardic on presentation now improved pulse is in the 80-90 range currently 6. History of CHF, repeat echo pending using audiovisual cart. Time spent 40 minutes. Attestations Medical Necessity Statement*: per mediicne team Coding Level of Care Code Acute Code for Chg Fwd Diagnoses Acute kidney insufficiency N28.9
[2023-03-12] MEDS: albumin 25 G/100 ML BAG 60 G IV ×3 (09:14→23:58)
[2023-03-12] MEDS: FUROsemide 10 mg/mL SDV 4mL 40 MG IVP ×2 (09:22→21:28)
[2023-03-12] MEDS: loratadine 10 mg Tablet PO (10:50)
[2023-03-12] MEDS: HYDROcodone-acetaminophen 5-325 mg Tablet 1 TAB PO ×3 (10:50→19:16)
[2023-03-12] MEDS: lanolin oint 7 gm 1 APPLIC TOPICAL (12:22)
--- NOTE | 2023-03-12 17:35 | P.PN_ITS ---
Subjective Subjective: Creatinine and potassium both improving today. Patient states he feels slightly stronger. Lower extremity swelling is improving. Currently on a bicarb drip. Medications: Reviewed: Yes Vitals/I&O/Wt Last Vital Signs Pulse 71 03/12/23 16:15 Resp 10 L 03/12/23 16:15 BP 123/60 03/12/23 16:15 Pulse Ox 97 03/12/23 16:15 O2 Del Method Nasal Cannula 03/12/23 08:00 O2 Flow Rate 3 03/12/23 08:00 03/12/23 03/12/23 03/12/23 06:59 14:59 22:59 Intake Total 50 / 4127.665 4269 / 1825 290 / 2115 Output Total 2300 / 2300 3400 / 3400 Balance -2250 / -511.609 4686 / 1825 -3110 / -1285 Weight last 48 hrs Weight 122.47 kg Weight 149.685 kg Physical Exam Narrative: General: No acute distress, AO x3 HEENT: PERRLA, pupils bilaterally equal and reactive, pallors not present Chest: Normal vesicular breath sounds, no added sounds, equal good air entry bilaterally CVS: S1-S2 regular, no murmurs, no tachycardia, no gallops, no rubs Abdomen: Soft, nontender, no organomegaly, bowel sounds present Neuro: No focal deficits, no facial deformity, AO x3, power 5/5 in all limbs Ext: B/l LE swelling edema and changes of cellulitis + Urinary Catheter Management: Fuentes: Cath Placed During This Visit: yes Reason for Continuing Indwelling Catheter: Accurate Measurement of Urinary Output in Critically Ill Patients Urinary Catheter Date of Insertion: 03/11/23 Urinary Catheter Time of Insertion: 12:44 Data 03/13/23 10:20 03/13/23 10:20 Micro: Microbiology 03/11/23 12:17 Blood Culture - Preliminary Blood NEGATIVE TO DATE 03/11/23 12:19 Blood Culture - Preliminary Blood NEGATIVE TO DATE 03/11/23 12:42 Urine Culture - Preliminary Urine,Clean Catch A&P Assessment and plan (1) Acute kidney insufficiency: acute kidney failure with creatinine at 5.1. Associated with hyperkalemia. Unclear cause currently. Review of his medications does not show any obvious nephrotoxic medications. CT of the abdomen and pelvis performed today negative for any hydronephrosis or obstruction along the tract. renal function improving, good urine output Fuentes catheter to monitor strict NORBERT's. Check UA, urine lites, urine eosinophil Nephrology consult ppreciated Avoid nephrotoxic medications. (2) Acute hyperkalemia: Acute hyperkalemia with associated EKG changes Potassium at 7.6 upon arrival. Now down to 4.5 Repeat CMP in am (3) Cellulitis: with outpatient abx failure currently on zosyn and vancomycin- to continue blood cx negative (4) Anasarca: reported past h/o CHF , unable to find recent echo will order Lasix 40mg iv q12h to continue (5) Afib: controlled HR (6) Bradycardia: (7) CHF (congestive heart failure): (8) Elevated troponin: Elevated troponin ranging 70-80 without significant delta at 2 or 6 hours. Suspect this to be related to acute kidney injury versus demand ischemia. No chest pain. Echo ?Normal left ventricular size and systolic function, EF 69 %. No ?regional wall motion abnormalities. Plan DVT prophylaxis: Heparin 5000 every 12. Patient is typically on Eliquis as outpatient for his A-fib. We are holding Eliquis now in case patient needs hemodialysis with placement of an HD catheter. PUD ppx: protonix Full code Attestations Medical Necessity Statement*: monitor renal function, on bicarb infusion, iv abx Coding Level of Care Code Acute Code for Chg Fwd High MDM includes number and complexity of problems actively addressed during en counter, amount and/or complexity of data reviewed/ordered and described risk of complication, morbidity or mortality of management as documented Diagnoses Acute kidney insufficiency N28.9 Acute hyperkalemia E87.5 Cellulitis L03.90 Anasarca R60.1 Afib I48.91 Bradycardia R00.1 CHF (congestive heart failure) I50.9 Elevated troponin R79.89
--- NOTE | 2023-03-12 17:42 | PC.NURSE ---
Rounded with Dr. Mishra this morning, running bicarb for this shift. Plans to pause it before shift change. No other changes so far this shift. Increasing lasix per JUL.
[2023-03-12 21:25] LABS: Glucose Point of Care 121 mg/dL (70-110)
[2023-03-12 21:25] LABS: Glucose Point of Care 195 mg/dL (70-110)
[2023-03-12 21:25] LABS: Glucose Point of Care 218 mg/dL (70-110)
[2023-03-12] MEDS: diphenhydrAMINE 25 mg Capsule PO (22:41)
[2023-03-13] VITALS (33 sets, daily range): BP systolic 96–137; BP diastolic 47–69; PULSE 72–92; RESP 7–26; TEMP 36.3–36.7; O2SAT 90–98
[2023-03-13] MEDS: HYDROcodone-acetaminophen 5-325 mg Tablet 1 TAB PO ×6 (02:32→23:48)
[2023-03-13] MEDS: piperacillin-tazobactam 3.375 GM in sodium chloride 0.9% (plus) 50 ML IV ×3 (05:34→20:47)
[2023-03-13] MEDS: heparin 5,000 unit/mL INJ 1 mL 5000 UNIT SUBCUT (05:35)
[2023-03-13 08:03] LABS: Glucose Point of Care 171 mg/dL (70-110)
[2023-03-13] MEDS: insulin lispro 100 unit/1 mL SUBCUT ×4 (08:18→20:46)
[2023-03-13] MEDS: albumin 25 G/100 ML BAG 60 G IV ×2 (08:18→16:25)
[2023-03-13] MEDS: loratadine 10 mg Tablet PO (08:21)
[2023-03-13] MEDS: FUROsemide 10 mg/mL SDV 4mL 40 MG IVP (08:21)
[2023-03-13] MEDS: fluconazole 100 mg Tablet PO (08:21)
[2023-03-13] MEDS: pantoprazole DR 40 mg Tablet PO (08:21)
[2023-03-13] MEDS: gabapentin 100 mg Capsule PO ×3 (08:21→20:46)
[2023-03-13] MEDS: vancomycin 2,000 MG/400 ML PIGGYBACK 200 MG IV (09:08)
[2023-03-13 10:29] LABS: Basophils % 0.6 %; Eosinophils # 0.5 10^3/uL (0.0-0.8); Hematocrit 31.9 % (37-53); Lymphocytes # 0.3 10^3/uL (0.8-4.8); Lymphocytes % 4.3 %; Mean Corpuscular HGB Conc 32.9 g/dL (30-55); Mean Corpuscular Hemoglobin 29.4 pg (27-33); Mean Corpuscular Volume 89.4 fl (82-101); Mean Platelet Volume 9.1 fL (7.4-10.4); Monocytes # 0.6 10^3/uL (0.2-0.9); Monocytes % 8.7 %; Neutrophils % 78.1 %; Nucleated Red Blood Cells % 0 %; Platelet Count 160 10^3/cmm (157-399); Red Blood Count 3.57 10^6/uL (3.85-5.65); Red Cell Distribution Width 15.3 % (12.1-15.1); White Blood Count 6.78 10^3/uL (3.29-11.43)
[2023-03-13 10:50] LABS: Alanine Aminotransferase < 5 U/L (0-41); Albumin Level 3.4 g/dL (3.5-5.2); Alkaline Phosphatase 139 U/L (40-130); Anion Gap 15.9 (5-19); Aspartate Amino Transferase 8 U/L (0-40); Calcium 7.6 mg/dL (8.5-10.5); Carbon Dioxide 26 mmol/L (22-29); Chloride 97 mmol/L (98-107); Globulin 3.2 g/dL (1.3-4.6); Glomerular Filtration Rate 18.6 mL/min (90-130); Glucose 207 mg/dL (65-115); Osmolality Calculated 322 mOsm/kg (285-295); Sodium 136 mmol/L (136-145); Total Bilirubin 0.4 mg/dL (0.15-1.2); Total Protein 6.6 g/dL (6.6-8.7)
[2023-03-13 10:53] LABS: Blood Urea Nitrogen 107 mg/dL (8-23); Potassium 2.9 mmol/L (3.5-5.1)
[2023-03-13] MEDS: potassium chloride ER 20 mEq Tablet 40 MEQ PO (12:20)
[2023-03-13 12:40] LABS: Glucose Point of Care 180 mg/dL (70-110)
--- NOTE | 2023-03-13 13:22 | PC.NURSE ---
Received critical lab notifications of low potassium, notified Dr. Albright, received orders for PO potassium, see MAR
--- NOTE | 2023-03-13 16:34 | PM.PN ---
Subjective Subjective: moved out of ICU, feels better main complaint at this time is severe itching. he reports rash developed 2-3 days before admission. new medication prior to admission were doxycycline for celulitis and something for pain Vitals/I&O/Wt Last Vital Signs Temp 97.4 F L 03/13/23 15:46 Pulse 81 03/13/23 15:46 Resp 16 03/13/23 15:46 BP 108/57 03/13/23 15:46 Pulse Ox 98 03/13/23 15:46 O2 Del Method Nasal Cannula 03/13/23 15:46 O2 Flow Rate 2 03/13/23 09:28 03/13/23 03/13/23 03/13/23 06:59 14:59 22:59 Intake Total 150 / 3356.667 1150 / 1150 49.375 / 1199.375 Output Total 550 / 4300 900 / 900 Balance -400 / -943.333 250 / 250 49.375 / 299.375 Weight last 48 hrs Weight 122.47 kg Weight 122.47 kg Physical Exam Const: OTHER: alert Skin: NARRATIVE SKIN EXAM: diffuse rash with skin abrasions from itching legs are red, right > left Urinary Catheter Management: Fuentes: Cath Placed During This Visit: yes Reason for Continuing Indwelling Catheter: Accurate Measurement of Urinary Output in Critically Ill Patients Urinary Catheter Date of Insertion: 03/11/23 Urinary Catheter Time of Insertion: 12:44 Data 03/13/23 10:20 03/13/23 10:20 Other Labs: urine Na < 10, + pyuria Micro: Microbiology 03/11/23 12:42 Urine Culture - Final Urine,Clean Catch 03/11/23 12:17 Blood Culture - Preliminary Blood NEGATIVE TO DATE 03/11/23 12:19 Blood Culture - Preliminary Blood NEGATIVE TO DATE CT Abd/Pel: Radiologist's impression: No hydronephrosis in either kidney. No obstructing renal or ureteral calculi. Echo: Radiologist's impression: ?Normal left ventricular size and systolic function, EF 69 %. No ?regional wall motion abnormalities. ? (Echo contrast - Optison was used to delineate the endocardium ?and to estimate the? LV ejection fraction) ?Mildly increased left atrial size. ?There is no pericardial effusion. Other data: seen via telemedicine with assistance of RN at bedside A&P Assessment and plan (1) FRANCISCO (acute kidney injury): Plan 1. Acute kidney injury, good urine output, renal function improving. Low urine sodium is consistent with prerenal state. 2. Electrolyte imbalance, hypokalemia, prior hyperkalemia 3. Metabolic acidosis, resolved 4. Chronic kidney disease 5. Skin rash, rising eosinophils Recommend: discontinue IV albumin, furosemide, bicarbonate, KCL replaced orally. Check Mg, phos, vanco level prior to next dose. Serologic glomerulonephritis workup ordered. I changed claritin to zyrtec, suggest addition of prednisone Attestations Medical Necessity Statement*: see above Time Spent in Patient Care: 16 - 35 minutes Coding Level of Care Code [facility] Diagnoses FRANCISCO (acute kidney injury) N17.9
[2023-03-13 17:04] LABS: Glucose Point of Care 173 mg/dL (70-110)
[2023-03-13] MEDS: apixaban 5 mg Tablet PO (17:30)
--- NOTE | 2023-03-13 17:39 | P.PN_ITS ---
Subjective Subjective: Hypokalemia today at 2.9. Patient states he has cramping pain in his lower extremities and overall feels generally weak again. Kidney function continues to improve with creatinine at 3.4. Urine output 1800 cc last 24 hours. Blood culture negative to date. Medications: Reviewed: Yes Vitals/I&O/Wt Last Vital Signs Temp 97.4 F L 03/13/23 15:46 Pulse 81 03/13/23 15:46 Resp 16 03/13/23 15:46 BP 108/57 03/13/23 15:46 Pulse Ox 98 03/13/23 15:46 O2 Del Method Nasal Cannula 03/13/23 15:46 O2 Flow Rate 2 03/13/23 09:28 03/13/23 03/13/23 03/13/23 06:59 14:59 22:59 Intake Total 150 / 3356.667 1150 / 1150 110.375 / 1260.375 Output Total 550 / 4300 900 / 900 Balance -400 / -943.333 250 / 250 110.375 / 360.375 Weight last 48 hrs Weight 122.47 kg Weight 122.47 kg Physical Exam Narrative: General: No acute distress, AO x3 HEENT: PERRLA, pupils bilaterally equal and reactive, pallors not present Chest: Normal vesicular breath sounds, no added sounds, equal good air entry bilaterally CVS: S1-S2 regular, no murmurs, no tachycardia, no gallops, no rubs Abdomen: Soft, nontender, no organomegaly, bowel sounds present Neuro: No focal deficits, no facial deformity, AO x3, power 5/5 in all limbs Extremities: improving cellulitis , LE edema improving Urinary Catheter Management: Fuentes: Cath Placed During This Visit: yes Reason for Continuing Indwelling Catheter: Accurate Measurement of Urinary Output in Critically Ill Patients Urinary Catheter Date of Insertion: 03/11/23 Urinary Catheter Time of Insertion: 12:44 Data 03/13/23 10:20 03/13/23 10:20 Micro: Microbiology 03/11/23 12:42 Urine Culture - Final Urine,Clean Catch 03/11/23 12:17 Blood Culture - Preliminary Blood NEGATIVE TO DATE 03/11/23 12:19 Blood Culture - Preliminary Blood NEGATIVE TO DATE A&P Assessment and plan (1) Acute kidney insufficiency: Acute kidney failure with creatinine at 5.1. Associated with hyperkalemia. now imporving at 3.[address] of the abdomen and pelvis performed today negative for any hydronephrosis or obstruction along the tract. renal function improving, good urine output Fuentes catheter to monitor strict NORBERT's. Nephrology consult appreciated Avoid nephrotoxic medications. (2) Acute hyperkalemia: Acute hyperkalemia with associated EKG changes now trending to hypokalemia Supplemented with 40meq po today (3) Cellulitis: with outpatient abx failure currently on zosyn and vancomycin- to continue blood cx negative anticipate transition to po abx in the next 24 hrs (4) Anasarca: reported past h/o CHF Currently echo without any gross systolic or diastolic dysfunction, no gross valvular abnormalities d/c lasix per nephrology (5) Afib: controlled HR resume amiodarone home dose continue holding beta blockers for now plan to resume next 24 hrs depending on HR (6) Bradycardia: resolved likely from hyperkalemia (7) CHF (congestive heart failure): (8) Elevated troponin: Elevated troponin ranging 70-80 without significant delta at 2 or 6 hours. Suspect this to be related to acute kidney injury versus demand ischemia. No chest pain. Echo ?Normal left ventricular size and systolic function, EF 69 %. No ?regional wall motion abnormalities. Plan DVT prophylaxis: resume home dose of Eliquis PUD ppx: protonix Full code Attestations Medical Necessity Statement*: Continued need for IV abx, resume home medications, monitor kidney function and electrolytes Coding Level of Care Code Acute Code for [facility] Diagnoses Acute kidney insufficiency N28.9 Acute hyperkalemia E87.5 Cellulitis L03.90 Anasarca R60.1 Afib I48.91 Bradycardia R00.1 CHF (congestive heart failure) I50.9 Elevated troponin R79.89
[2023-03-13] MEDS: cetirizine 10 mg Tablet PO (18:21)
[2023-03-13 20:12] LABS: Glucose Point of Care 155 mg/dL (70-110)
[2023-03-14] VITALS (11 sets, daily range): BP systolic 104–149; BP diastolic 46–68; PULSE 69–87; RESP 15–18; TEMP 36.3–36.7; O2SAT 94–99
[2023-03-14] MEDS: diphenhydrAMINE 25 mg Capsule PO (01:44)
[2023-03-14] MEDS: HYDROcodone-acetaminophen 5-325 mg Tablet 1 TAB PO ×2 (04:32→08:57)
[2023-03-14] MEDS: piperacillin-tazobactam 3.375 GM in sodium chloride 0.9% (plus) 50 ML IV (04:32)
[2023-03-14 06:24] LABS: Glucose Point of Care 163 mg/dL (70-110)
[2023-03-14 07:37] LABS: Basophils % 0.7 %; Eosinophils # 0.7 10^3/uL (0.0-0.8); Eosinophils % 10.9 %; Hematocrit 35.5 % (37-53); Lymphocytes # 0.4 10^3/uL (0.8-4.8); Lymphocytes % 7.1 %; Mean Corpuscular HGB Conc 30.7 g/dL (30-55); Mean Corpuscular Hemoglobin 29.5 pg (27-33); Mean Corpuscular Volume 95.9 fl (82-101); Mean Platelet Volume 9.3 fL (7.4-10.4); Monocytes # 0.6 10^3/uL (0.2-0.9); Monocytes % 9.6 %; Neutrophils # 4.25 10^3/uL (1.8-7.7); Neutrophils % 71.4 %; Nucleated Red Blood Cells % 0 %; Platelet Count 144 10^3/cmm (157-399); Red Cell Distribution Width 15.4 % (12.1-15.1); White Blood Count 5.95 10^3/uL (3.29-11.43)
[2023-03-14] MEDS: insulin lispro 100 unit/1 mL SUBCUT ×4 (07:42→21:17)
[2023-03-14 07:56] LABS: Alanine Aminotransferase 7 U/L (0-41); Alkaline Phosphatase 148 U/L (40-130); Calcium 7.8 mg/dL (8.5-10.5); Carbon Dioxide 20 mmol/L (22-29); Chloride 100 mmol/L (98-107); Globulin 3.6 g/dL (1.3-4.6); Glomerular Filtration Rate 22.3 mL/min (90-130); Glucose 158 mg/dL (65-115); Sodium 138 mmol/L (136-145); Total Bilirubin 0.4 mg/dL (0.15-1.2); Total Protein 6.6 g/dL (6.6-8.7)
[2023-03-14 07:57] LABS: Anion Gap 21.7 (5-19); Aspartate Amino Transferase 12 U/L (0-40); Potassium 3.7 mmol/L (3.5-5.1)
[2023-03-14 07:58] LABS: Blood Urea Nitrogen 101 mg/dL (8-23); Osmolality Calculated 321 mOsm/kg (285-295)
[2023-03-14 08:07] LABS: Vancomycin Random 27.2 ug/mL (20.0-40.0)
[2023-03-14 08:23] LABS: Complement C3 121 mg/dL (90-180); Creatine Phosphokinase 89 U/L (39-308); Magnesium 1.8 mg/dL (1.7-2.3); Phosphorus 4.3 mg/dL (2.5-4.5)
[2023-03-14] MEDS: gabapentin 100 mg Capsule PO ×3 (08:36→21:17)
[2023-03-14] MEDS: pantoprazole DR 40 mg Tablet PO (08:36)
[2023-03-14] MEDS: apixaban 5 mg Tablet PO ×2 (08:36→17:18)
[2023-03-14] MEDS: predniSONE 20 mg Tablet PO (08:36)
[2023-03-14] MEDS: amiodarone 200 mg Tablet PO (08:36)
[2023-03-14] MEDS: fluconazole 100 mg Tablet PO (08:36)
[2023-03-14] MEDS: cetirizine 10 mg Tablet PO (08:37)
[2023-03-14 11:51] LABS: Glucose Point of Care 240 mg/dL (70-110)
--- NOTE | 2023-03-14 15:04 | PM.PN ---
Subjective Subjective: Creatinine improving to 2.9 today. Urine output 1300 cc last 24 hours. Interim development of crackles on exam today. Appears to be more somnolent and compared to prior exams Medications: Reviewed: Yes Vitals/I&O/Wt Last Vital Signs Temp 97.3 F L 03/14/23 12:00 Pulse 78 03/14/23 12:00 Resp 17 03/14/23 12:00 BP 132/66 03/14/23 12:00 Pulse Ox 97 03/14/23 12:00 O2 Del Method Nasal Cannula 03/14/23 08:00 O2 Flow Rate 2 03/14/23 08:00 03/14/23 03/14/23 03/14/23 06:59 14:59 22:59 Intake Total 1130 / 2391.000 410 / 410 Output Total 500 / 1900 300 / 300 Balance 630 / 491.000 110 / 110 Weight last 48 hrs Weight 123.916 kg Weight 122.47 kg Physical Exam Narrative: General: No acute distress, AO x3 HEENT: PERRLA, pupils bilaterally equal and reactive, pallors not present Chest: crcakles to auscultation B/L CVS: S1-S2 regular, no murmurs, no tachycardia, no gallops, no rubs Abdomen: Soft, nontender, no organomegaly, bowel sounds present Neuro: No focal deficits, no facial deformity, AO x3, power 5/5 in all limbs Extremities: improving cellulitis , LE edema improving Urinary Catheter Management: Fuentes: Cath Placed During This Visit: yes Reason for Continuing Indwelling Catheter: Acute Urinary Retention or Obstruction Urinary Catheter Date of Insertion: 03/11/23 Urinary Catheter Time of Insertion: 12:44 Data 03/14/23 07:20 03/14/23 07:20 Micro: Microbiology 03/11/23 12:42 Urine Culture - Final Urine,Clean Catch A&P Assessment and plan (1) Acute kidney insufficiency: Acute kidney failure with creatinine at 5.1. Associated with hyperkalemia. now imporving at 2.[address] of the abdomen and pelvis negative for any hydronephrosis or obstruction along the tract. renal function improving, good urine output Fuentes catheter to monitor strict NORBERT's. Nephrology consult appreciated Avoid nephrotoxic medications. (2) Acute hyperkalemia: Now resolved. Potassium at 3.7 today (3) Cellulitis: with outpatient abx failure currently on zosyn and vancomycin with improvement. Residual significant flaky skin bilaterally with changes of chronic stasis dermatitis. Cellulitis appears to be improving overall. Add ammonium lactate for local application. Discontinue IV antibiotics and switch to Augmentin and levofloxacin renally dosed. Monitor for any interval worsening over the next 24 hours after converting IV to p.o. medications. (4) Anasarca: reported past h/o CHF Currently echo without any gross systolic or diastolic dysfunction, no gross valvular abnormalities Lasix 40 mg IV today due to interim development of crackles on exam bilaterally. Patient tachypneic in conversation today. (5) Afib: controlled HR continue amiodarone home dose resume beta blockers however at a lower dose of 25 mg twice daily rather than 50 mg twice daily. (6) Bradycardia: resolved likely from hyperkalemia (7) CHF (congestive heart failure): (8) Elevated troponin: Elevated troponin ranging 70-80 without significant delta at 2 or 6 hours. Suspect this to be related to acute kidney injury versus demand ischemia. No chest pain. Echo ?Normal left ventricular size and systolic function, EF 69 %. No ?regional wall motion abnormalities. Plan Patient noted to be more somnolent on today's exam compared to previously. This may be related to opiate use. Current frequency of morphine from 2 mg IV every 4 hours to every 8 hours currently. Reduce frequency of p.o. opiates from every 4 hours to every 6 hours as needed. On po prednisone due to noted eosinophilia on differential count . Has an extensive rash which may be uremic vs psoariasis - dermatology as outpatient encourage ambulation, out of bed. PT OT. Dispo: Home with spouse when ready DVT prophylaxis: Currently on Eliquis PUD ppx: protonix Full code Attestations Medical Necessity Statement*: iv lasix today, change iv to po medications and monitor, monitor renal function Coding Level of Care Code Acute Code for [facility] Diagnoses Acute kidney insufficiency N28.9 Acute hyperkalemia E87.5 Cellulitis L03.90 Anasarca R60.1 Afib I48.91 Bradycardia R00.1 CHF (congestive heart failure) I50.9 Elevated troponin R79.89
--- NOTE | 2023-03-14 15:06 | PM.PN ---
Subjective Subjective: feeling better today; skin much less itchy was out of bed Medications: Medication Review Details: antibiotics switched to oral Vitals/I&O/Wt Last Vital Signs Temp 97.3 F L 03/14/23 12:00 Pulse 78 03/14/23 12:00 Resp 17 03/14/23 12:00 BP 132/66 03/14/23 12:00 Pulse Ox 97 03/14/23 12:00 O2 Del Method Nasal Cannula 03/14/23 08:00 O2 Flow Rate 2 03/14/23 08:00 03/14/23 03/14/23 03/14/23 06:59 14:59 22:59 Intake Total 1130 / 2391.000 410 / 410 Output Total 500 / 1900 300 / 300 Balance 630 / 491.000 110 / 110 Weight last 48 hrs Weight 123.916 kg Weight 122.47 kg Physical Exam Urinary Catheter Management: Fuentes: Cath Placed During This Visit: yes Reason for Continuing Indwelling Catheter: Acute Urinary Retention or Obstruction Urinary Catheter Date of Insertion: 03/11/23 Urinary Catheter Time of Insertion: 12:44 Data 03/14/23 07:20 03/14/23 07:20 Other Labs: vanco 27, ca 7.8, Mg 1.8, phos 4.3 CK 89 Micro: Microbiology 03/11/23 12:42 Urine Culture - Final Urine,Clean Catch Other data: seen via telemedicine with assistance of RN at bedside A&P Assessment and plan (1) FRANCISCO (acute kidney injury): Plan 1. Acute kidney injury, good urine output, renal function improving. Low urine sodium is consistent with prerenal state. Serologic glomerulonephritis workup pending. 2. Electrolyte imbalance, resolved 3. Metabolic acidosis, resolved 4. Chronic kidney disease 5. Skin rash, rising eosinophils, itching much better today Recommend: continue current rx Attestations Medical Necessity Statement*: see above Time Spent in Patient Care: 16 - 35 minutes Coding Level of Care Code Acute Code for [facility] Diagnoses FRANCISCO (acute kidney injury) N17.9
[2023-03-14] MEDS: FUROsemide 10 mg/mL SDV 4mL 40 MG IVP (15:52)
[2023-03-14] MEDS: ammonium lactate lotion 226 gm Btl 1 APPLIC TOPICAL (16:06)
[2023-03-14 17:12] LABS: Glucose Point of Care 223 mg/dL (70-110)
[2023-03-14] MEDS: TRAMadol 50 mg Tablet PO (17:18)
[2023-03-14] MEDS: metoprolol tartrate 25 mg Tablet PO (17:18)
[2023-03-14] MEDS: amoxicillin-clav 875-125 mg Tablet 1 TAB PO (17:18)
[2023-03-14 20:42] LABS: Glucose Point of Care 313 mg/dL (70-110)
[2023-03-14] MEDS: oxyCODONE-APAP 5-325 mg Tablet 1 TAB PO (21:21)
[2023-03-15] VITALS (13 sets, daily range): BP systolic 114–150; BP diastolic 54–70; PULSE 62–83; RESP 16–18; TEMP 36.3–36.8; O2SAT 91–98
[2023-03-15] MEDS: oxyCODONE-APAP 5-325 mg Tablet 1 TAB PO ×3 (04:05→17:02)
[2023-03-15 04:46] LABS: Basophils % 0.4 %; Eosinophils # 0.2 10^3/uL (0.0-0.8); Eosinophils % 4.4 %; Lymphocytes # 0.3 10^3/uL (0.8-4.8); Lymphocytes % 5.5 %; Mean Corpuscular Hemoglobin 29.6 pg (27-33); Mean Corpuscular Volume 95.4 fl (82-101); Mean Platelet Volume 9.1 fL (7.4-10.4); Monocytes # 0.5 10^3/uL (0.2-0.9); Monocytes % 8.6 %; Neutrophils # 4.42 10^3/uL (1.8-7.7); Neutrophils % 80.7 %; Nucleated Red Blood Cells % 0 %; Platelet Count 178 10^3/cmm (157-399); Red Blood Count 4.09 10^6/uL (3.85-5.65); Red Cell Distribution Width 15.4 % (12.1-15.1); White Blood Count 5.47 10^3/uL (3.29-11.43)
[2023-03-15 05:11] LABS: Alanine Aminotransferase 9 U/L (0-41); Albumin Level 3.7 g/dL (3.5-5.2); Alkaline Phosphatase 183 U/L (40-130); Anion Gap 19.1 (5-19); Aspartate Amino Transferase 12 U/L (0-40); Calcium 8.1 mg/dL (8.5-10.5); Carbon Dioxide 25 mmol/L (22-29); Chloride 99 mmol/L (98-107); Globulin 3.2 g/dL (1.3-4.6); Glomerular Filtration Rate 26.5 mL/min (90-130); Glucose 136 mg/dL (65-115); Osmolality Calculated 318 mOsm/kg (285-295); Potassium 4.1 mmol/L (3.5-5.1); Sodium 139 mmol/L (136-145); Total Bilirubin 0.4 mg/dL (0.15-1.2); Total Protein 6.9 g/dL (6.6-8.7)
[2023-03-15 05:13] LABS: Blood Urea Nitrogen 90 mg/dL (8-23)
[2023-03-15 06:45] LABS: Glucose Point of Care 150 mg/dL (70-110)
[2023-03-15] MEDS: amoxicillin-clav 875-125 mg Tablet 1 TAB PO ×2 (09:23→18:13)
[2023-03-15] MEDS: apixaban 5 mg Tablet PO ×2 (09:23→18:13)
[2023-03-15] MEDS: metoprolol tartrate 25 mg Tablet PO ×2 (09:23→18:13)
[2023-03-15] MEDS: predniSONE 20 mg Tablet PO ×3 (09:23→18:13)
[2023-03-15] MEDS: pantoprazole DR 40 mg Tablet PO (09:23)
[2023-03-15] MEDS: cetirizine 10 mg Tablet PO (09:23)
[2023-03-15] MEDS: gabapentin 100 mg Capsule PO ×3 (09:23→20:34)
[2023-03-15] MEDS: amiodarone 200 mg Tablet PO (09:23)
[2023-03-15] MEDS: fluconazole 100 mg Tablet PO (09:23)
[2023-03-15] MEDS: insulin lispro 100 unit/1 mL SUBCUT ×4 (09:24→20:35)
[2023-03-15 11:48] LABS: Glucose Point of Care 225 mg/dL (70-110)
--- NOTE | 2023-03-15 13:39 | PM.PN ---
Subjective Subjective: itching very badly again, entire body otherwise feeling better Vitals/I&O/Wt Last Vital Signs Temp 97.4 F L 03/15/23 11:53 Pulse 78 03/15/23 11:53 Resp 18 03/15/23 11:53 BP 126/62 03/15/23 11:53 Pulse Ox 92 03/15/23 11:53 O2 Del Method Room Air 03/15/23 11:53 O2 Flow Rate 2 03/15/23 08:00 03/14/23 03/15/23 03/15/23 22:59 06:59 14:59 Intake Total 480 / 480 Output Total 1500 / 1800 700 / 2500 Balance -1500 / -1390 -700 / -2090 480 / 480 Weight last 48 hrs Weight 125.787 kg Weight 123.916 kg Physical Exam Const: COMMON NORMALS: no acute distress and alert Extremity: NARRATIVE EXTREMITY EXAM: much less edema Neuro: SENSORIUM/ORIENTATION: Yes alert Urinary Catheter Management: Fuentes: Cath Placed During This Visit: yes Reason for Continuing Indwelling Catheter: Accurate Measurement of Urinary Output in Critically Ill Patients Urinary Catheter Date of Insertion: 03/11/23 Urinary Catheter Time of Insertion: 12:44 Data 03/15/23 04:12 03/15/23 04:12 Other Labs: Ca 8.1, albumin 3.7, phos 4.3, Mg 1.8 eosinophils decreased to 4.4% today Other data: seen via telemedicine with assistance of RN at bedside A&P Assessment and plan (1) FRANCISCO (acute kidney injury): Plan 1. Acute kidney injury, good urine output, renal function improving. Low urine sodium is consistent with prerenal state. Serologic glomerulonephritis workup pending. Agree with discontinue diuretic. 2. Electrolyte imbalance, resolved 3. Metabolic acidosis, resolved 4. Chronic kidney disease 5. Skin rash, itching, increase prednisone. Attestations Medical Necessity Statement*: see above Time Spent in Patient Care: 16 - 35 minutes Coding Level of Care Code Acute Code for [facility] Diagnoses FRANCISCO (acute kidney injury) N17.9
[2023-03-15] MEDS: morphine 4 mg/mL SDV 1 mL 2 MG IVP (14:39)
--- NOTE | 2023-03-15 16:21 | PM.PN ---
Subjective Subjective: feels better, cr continues to improve Medications: Reviewed: Yes Medication Review Details: antibiotics switched to oral Vitals/I&O/Wt Last Vital Signs Temp 97.6 F 03/15/23 15:34 Pulse 62 03/15/23 15:34 Resp 18 03/15/23 15:34 BP 126/62 03/15/23 11:53 Pulse Ox 91 03/15/23 15:34 O2 Del Method Room Air 03/15/23 15:34 O2 Flow Rate 2 03/15/23 08:00 03/15/23 03/15/23 03/15/23 06:59 14:59 22:59 Intake Total 480 / 480 Output Total 700 / 2500 Balance -700 / -2090 480 / 480 Weight last 48 hrs Weight 125.787 kg Weight 123.916 kg Physical Exam Narrative: General: No acute distress, AO x3 HEENT: PERRLA, pupils bilaterally equal and reactive, pallors not present Chest: crcakles to auscultation B/L CVS: S1-S2 regular, no murmurs, no tachycardia, no gallops, no rubs Abdomen: Soft, nontender, no organomegaly, bowel sounds present Neuro: No focal deficits, no facial deformity, AO x3, power 5/5 in all limbs Extremities: improving cellulitis , LE edema improving Urinary Catheter Management: Harmon: Cath Placed During This Visit: yes Reason for Continuing Indwelling Catheter: Accurate Measurement of Urinary Output in Critically Ill Patients Urinary Catheter Date of Insertion: 03/11/23 Urinary Catheter Time of Insertion: 12:44 Data 03/16/23 04:38 03/16/23 04:38 A&P Assessment and plan (1) Acute kidney insufficiency: Acute kidney failure with creatinine at 5.1. Associated with hyperkalemia. now imporving at 2.[address] of the abdomen and pelvis negative for any hydronephrosis or obstruction along the tract. renal function improving, good urine output Harmon catheter to monitor strict NORBERT's. Nephrology consult appreciated Avoid nephrotoxic medications. (2) Acute hyperkalemia: Now resolved. Potassium at 3.7 today (3) Cellulitis: with outpatient abx failure currently on zosyn and vancomycin with improvement. Residual significant flaky skin bilaterally with changes of chronic stasis dermatitis. Cellulitis appears to be improving overall. Add ammonium lactate for local application. Discontinue IV antibiotics and switch to Augmentin and levofloxacin renally dosed. Monitor for any interval worsening over the next 24 hours after converting IV to p.o. medications. (4) Anasarca: reported past h/o CHF Currently echo without any gross systolic or diastolic dysfunction, no gross valvular abnormalities Lasix 40 mg IV today due to interim development of crackles on exam bilaterally. Patient tachypneic in conversation today. (5) Afib: controlled HR continue amiodarone home dose resume beta blockers however at a lower dose of 25 mg twice daily rather than 50 mg twice daily. (6) Bradycardia: resolved likely from hyperkalemia (7) CHF (congestive heart failure): (8) Elevated troponin: Elevated troponin ranging 70-80 without significant delta at 2 or 6 hours. Suspect this to be related to acute kidney injury versus demand ischemia. No chest pain. Echo ?Normal left ventricular size and systolic function, EF 69 %. No ?regional wall motion abnormalities. Plan Patient noted to be more somnolent on today's exam compared to previously. This may be related to opiate use. Current frequency of morphine from 2 mg IV every 4 hours to every 8 hours currently. Reduce frequency of p.o. opiates from every 4 hours to every 6 hours as needed. On po prednisone due to noted eosinophilia on differential count . Has an extensive rash which may be uremic vs psoariasis - dermatology as outpatient encourage ambulation, out of bed. PT OT. Dispo: Home with spouse when ready DVT prophylaxis: Currently on Eliquis PUD ppx: protonix Full code Plan for today: D/C harmon catheter today, monitor cr Attestations Medical Necessity Statement*: anticipate discharge in the next 24 hs if continues to improve Coding Level of Care Code Acute Code for [facility] Diagnoses Acute kidney insufficiency N28.9 Acute hyperkalemia E87.5 Cellulitis L03.90 Anasarca R60.1 Afib I48.91 Bradycardia R00.1 CHF (congestive heart failure) I50.9 Elevated troponin R79.89
[2023-03-15 17:21] LABS: Glucose Point of Care 251 mg/dL (70-110)
--- NOTE | 2023-03-15 19:20 | PC.NURSE ---
pt requests to leave harmon in until closer to dc due to extreme weakness to ble. Messaged Dr. Albright who ok'd this.
[2023-03-15 20:25] LABS: Glucose Point of Care 299 mg/dL (70-110)
[2023-03-15] MEDS: TRAMadol 50 mg Tablet PO (20:34)
[2023-03-16] VITALS (12 sets, daily range): BP systolic 135–160; BP diastolic 55–74; PULSE 61–77; RESP 15–18; TEMP 36.3–36.9; O2SAT 92–97
[2023-03-16] MEDS: morphine 4 mg/mL SDV 1 mL 2 MG IVP ×3 (04:21→21:37)
[2023-03-16 04:50] LABS: Hematocrit 36.2 % (37-53); Lymphocytes # 0.2 10^3/uL (0.8-4.8); Lymphocytes % 4.4 %; Mean Corpuscular HGB Conc 31.5 g/dL (30-55); Mean Corpuscular Hemoglobin 29.3 pg (27-33); Mean Corpuscular Volume 93.1 fl (82-101); Mean Platelet Volume 9.1 fL (7.4-10.4); Monocytes # 0.1 10^3/uL (0.2-0.9); Monocytes % 2.7 %; Neutrophils # 3.77 10^3/uL (1.8-7.7); Neutrophils % 92.7 %; Nucleated Red Blood Cells % 0 %; Platelet Count 170 10^3/cmm (157-399); Red Blood Count 3.89 10^6/uL (3.85-5.65); Red Cell Distribution Width 15.1 % (12.1-15.1); White Blood Count 4.07 10^3/uL (3.29-11.43)
[2023-03-16 05:06] LABS: Alanine Aminotransferase 10 U/L (0-41); Albumin Level 3.4 g/dL (3.5-5.2); Alkaline Phosphatase 170 U/L (40-130); Anion Gap 15.3 (5-19); Aspartate Amino Transferase 11 U/L (0-40); Blood Urea Nitrogen 77 mg/dL (8-23); Calcium 8.5 mg/dL (8.5-10.5); Carbon Dioxide 27 mmol/L (22-29); Chloride 99 mmol/L (98-107); Globulin 3.8 g/dL (1.3-4.6); Glomerular Filtration Rate 41.3 mL/min (90-130); Glucose 265 mg/dL (65-115); Osmolality Calculated 316 mOsm/kg (285-295); Potassium 4.3 mmol/L (3.5-5.1); Sodium 137 mmol/L (136-145); Total Bilirubin 0.3 mg/dL (0.15-1.2); Total Protein 7.2 g/dL (6.6-8.7)
[2023-03-16 06:48] LABS: Glucose Point of Care 271 mg/dL (70-110)
[2023-03-16] MEDS: TRAMadol 50 mg Tablet PO ×2 (07:53→18:08)
[2023-03-16] MEDS: fluconazole 100 mg Tablet PO (08:58)
[2023-03-16] MEDS: cetirizine 10 mg Tablet PO (08:58)
[2023-03-16] MEDS: gabapentin 100 mg Capsule PO ×3 (08:58→21:24)
[2023-03-16] MEDS: pantoprazole DR 40 mg Tablet PO (08:58)
[2023-03-16] MEDS: amoxicillin-clav 875-125 mg Tablet 1 TAB PO ×2 (08:58→18:02)
[2023-03-16] MEDS: levoFLOXacin 750 mg Tablet PO (08:58)
[2023-03-16] MEDS: apixaban 5 mg Tablet PO ×2 (08:58→18:03)
[2023-03-16] MEDS: predniSONE 20 mg Tablet PO (08:59)
[2023-03-16] MEDS: insulin lispro 100 unit/1 mL SUBCUT ×4 (08:59→21:24)
[2023-03-16] MEDS: amiodarone 200 mg Tablet PO (08:59)
[2023-03-16] MEDS: metoprolol tartrate 25 mg Tablet PO ×2 (08:59→18:02)
--- NOTE | 2023-03-16 11:48 | PM.PN ---
Subjective Subjective: itching better, felt to be due to percocet, using morphine and tramadol instead Vitals/I&O/Wt Last Vital Signs Temp 97.4 F L 03/16/23 11:37 Pulse 71 03/16/23 11:37 Resp 18 03/16/23 11:37 BP 146/66 03/16/23 11:37 Pulse Ox 92 03/16/23 11:37 O2 Del Method Room Air 03/16/23 11:37 O2 Flow Rate 2 03/16/23 07:53 03/15/23 03/16/23 03/16/23 22:59 06:59 14:59 Intake Total 600 / 1080 360 / 360 Output Total 850 / 850 1100 / 1950 Balance -250 / 230 -1100 / -870 360 / 360 Weight last 48 hrs Weight 124.965 kg Weight 125.787 kg Physical Exam Const: COMMON NORMALS: no acute distress Extremity: NARRATIVE EXTREMITY EXAM: less edema Urinary Catheter Management: Fuentes: Cath Placed During This Visit: yes Reason for Continuing Indwelling Catheter: Accurate Measurement of Urinary Output in Critically Ill Patients Urinary Catheter Date of Insertion: 03/11/23 Urinary Catheter Time of Insertion: 12:44 Data 03/16/23 04:38 03/16/23 04:38 Other data: seen via telemedicine with assistance of RN at bedside A&P Assessment and plan (1) FRANCISCO (acute kidney injury): Plan 1. Acute kidney injury, good urine output, renal function improving. Low urine sodium is consistent with prerenal state. Serologic glomerulonephritis workup pending. 2. Electrolyte imbalance, resolved 3. Metabolic acidosis, resolved 4. Chronic kidney disease 5. Skin rash, itching, improved, reduce prednisone. Recommend: voiding trial Attestations Medical Necessity Statement*: per primary service Coding Level of Care Code Acute Code for g Fwd Diagnoses FRANCISCO (acute kidney injury) N17.9
[2023-03-16 12:17] LABS: Glucose Point of Care 260 mg/dL (70-110)
[2023-03-16 17:08] LABS: Glucose Point of Care 257 mg/dL (70-110)
--- NOTE | 2023-03-16 18:24 | P.PN_ITS ---
Subjective Subjective: Creatinine improving to 1.7. Urine output 2.6 L. Electrolytes remain in the range. Stasis dermatitis persisting, cellulitis continues to improve. Patient's unable to pick him up today. Medications: Reviewed: Yes Medication Review Details: antibiotics switched to oral Vitals/I&O/Wt Last Vital Signs Temp 97.8 F 03/16/23 15:05 Pulse 61 03/16/23 15:05 Resp 18 03/16/23 15:05 BP 143/72 03/16/23 15:05 Pulse Ox 95 03/16/23 15:05 O2 Del Method Room Air 03/16/23 15:05 O2 Flow Rate 2 03/16/23 07:53 03/16/23 03/16/23 03/16/23 06:59 14:59 22:59 Intake Total 720 / 720 480 / 1200 Output Total 1100 / 1950 1000 / 1000 500 / 1500 Balance -1100 / -870 -280 / -280 -20 / -300 Weight last 48 hrs Weight 124.965 kg Weight 125.787 kg Physical Exam Narrative: General: No acute distress, AO x3 HEENT: PERRLA, pupils bilaterally equal and reactive, pallors not present Chest: crcakles to auscultation B/L CVS: S1-S2 regular, no murmurs, no tachycardia, no gallops, no rubs Abdomen: Soft, nontender, no organomegaly, bowel sounds present Neuro: No focal deficits, no facial deformity, AO x3, power 5/5 in all limbs Extremities: improving cellulitis , LE edema improving Urinary Catheter Management: Fuentes: Cath Placed During This Visit: yes Reason for Continuing Indwelling Catheter: Accurate Measurement of Urinary Output in Critically Ill Patients Urinary Catheter Date of Insertion: 03/11/23 Urinary Catheter Time of Insertion: 12:44 Data 03/16/23 04:38 03/16/23 04:38 Micro: Microbiology 03/11/23 12:19 Blood Culture - Final Blood NO GROWTH AFTER 5 DAYS 03/11/23 12:17 Blood Culture - Final Blood NO GROWTH AFTER 5 DAYS A&P Assessment and plan (1) Acute kidney insufficiency: Acute kidney failure with creatinine at 5.1. Associated with hyperkalemia. now imporving at 1.7, urine output 2.6L Likely pre renal CT of the abdomen and pelvis negative for any hydronephrosis or obstruction along the tract. renal function improving, good urine output Fuentes catheter to be discontinued Nephrology consult appreciated Avoid nephrotoxic medications. (2) Acute hyperkalemia: Now resolved. (3) Cellulitis: with outpatient abx failure Treated with zosyn and vancomycin as inpatient ---> converted to po augmentin and levofloxacin. Residual significant flaky skin bilaterally with changes of chronic stasis de rmatitis. Cellulitis appears to be improving overall. continue ammonium lactate for local application. (4) Anasarca: reported past h/o CHF Currently echo without any gross systolic or diastolic dysfunction, no gross valvular abnormalities currently euvolemic, diuresing well (5) Afib: controlled HR continue amiodarone home dose continue metoprolol 25 mg twice daily (6) Bradycardia: resolved likely from hyperkalemia (7) CHF (congestive heart failure): (8) Elevated troponin: Elevated troponin ranging 70-80 without significant delta at 2 or 6 hours. Suspect this to be related to acute kidney injury versus demand ischemia. No chest pain. Echo ?Normal left ventricular size and systolic function, EF 69 %. No ?regional wall motion abnormalities. Plan improving currently , ready for discharge however patient's has to work, unable to take him home today On po prednisone due to noted eosinophilia on differential count . Has an extensive rash which may be uremic vs psoariasis - dermatology as outpatient encourage ambulation, out of bed. PT OT appreciated Dispo: Home with spouse DVT prophylaxis: Currently on Eliquis PUD ppx: protonix Full code Attestations Medical Necessity Statement*: clinically improving, anticipate discharge in the upcoming 24 hrs Coding Level of Care Code Acute Code for [facility] Diagnoses Acute kidney insufficiency N28.9 Acute hyperkalemia E87.5 Cellulitis L03.90 Anasarca R60.1 Afib I48.91 Bradycardia R00.1 CHF (congestive heart failure) I50.9 Elevated troponin R79.89
[2023-03-16 20:57] LABS: Glucose Point of Care 313 mg/dL (70-110)
[2023-03-17] VITALS: BP 159/76; PULSE 65; RESP 20; TEMP 36.3; O2SAT 92
[2023-03-17] MEDS: TRAMadol 50 mg Tablet PO ×2 (03:16→10:09)
[2023-03-17] MEDS: acetaminophen 325 mg Tablet 650 MG PO (03:17)
--- NOTE | 2023-03-17 03:49 | PC.NURSE ---
Nurse and CLINICAL REVIEW SPECIALIST provided catheter care, alejandro care, linen change, and gown change. excoriation noted to alejandro area and inner thighs. old optifoams were soiled, they were removed, area cleansed with NS, patted dry, new optifoams applied. Barrier cream applied to alejandro area. Patient complained each time nurse and police reserves commander turned him through the night or provided any hygiene care for him.
[2023-03-17 04:00] VITALS: BP 153/63; PULSE 64; RESP 20; TEMP 36.6; O2SAT 96
[2023-03-17 05:04] LABS: Basophils % 0.4 %; Eosinophils # 0.1 10^3/uL (0.0-0.8); Eosinophils % 1.2 %; Hematocrit 35.5 % (37-53); Lymphocytes # 0.3 10^3/uL (0.8-4.8); Lymphocytes % 6.5 %; Mean Corpuscular HGB Conc 31.3 g/dL (30-55); Mean Corpuscular Volume 92.7 fl (82-101); Mean Platelet Volume 9.2 fL (7.4-10.4); Monocytes # 0.4 10^3/uL (0.2-0.9); Monocytes % 7.5 %; Neutrophils # 4.34 10^3/uL (1.8-7.7); Neutrophils % 83.4 %; Nucleated Red Blood Cells % 0 %; Platelet Count 160 10^3/cmm (157-399); Red Blood Count 3.83 10^6/uL (3.85-5.65); Red Cell Distribution Width 15.1 % (12.1-15.1)
[2023-03-17 05:26] LABS: Alanine Aminotransferase 11 U/L (0-41); Albumin Level 3.5 g/dL (3.5-5.2); Alkaline Phosphatase 153 U/L (40-130); Anion Gap 13.3 (5-19); Aspartate Amino Transferase 13 U/L (0-40); Blood Urea Nitrogen 61 mg/dL (8-23); Calcium 8.8 mg/dL (8.5-10.5); Carbon Dioxide 29 mmol/L (22-29); Chloride 102 mmol/L (98-107); Globulin 3.6 g/dL (1.3-4.6); Glomerular Filtration Rate 44.3 mL/min (90-130); Glucose 211 mg/dL (65-115); Osmolality Calculated 314 mOsm/kg (285-295); Potassium 4.3 mmol/L (3.5-5.1); Sodium 140 mmol/L (136-145); Total Bilirubin 0.3 mg/dL (0.15-1.2); Total Protein 7.1 g/dL (6.6-8.7)
[2023-03-17] MEDS: morphine 4 mg/mL SDV 1 mL 2 MG IVP (05:53)
[2023-03-17 06:00] VITALS: PULSE 65
[2023-03-17] MEDS: diphenhydrAMINE 25 mg Capsule PO (06:20)
[2023-03-17 07:01] LABS: Glucose Point of Care 191 mg/dL (70-110)
[2023-03-17 08:00] VITALS: BP 126/52; PULSE 71; PULSE 81; RESP 16; TEMP 36.8; O2SAT 94; O2SAT 97
[2023-03-17] MEDS: insulin lispro 100 unit/1 mL SUBCUT ×2 (08:21→11:52)
[2023-03-17] MEDS: amoxicillin-clav 875-125 mg Tablet 1 TAB PO (08:22)
[2023-03-17] MEDS: gabapentin 100 mg Capsule PO (08:22)
[2023-03-17] MEDS: apixaban 5 mg Tablet PO (08:22)
[2023-03-17] MEDS: fluconazole 100 mg Tablet PO (08:22)
[2023-03-17] MEDS: predniSONE 20 mg Tablet PO (08:23)
[2023-03-17] MEDS: amiodarone 200 mg Tablet PO (08:23)
[2023-03-17] MEDS: metoprolol tartrate 25 mg Tablet PO (08:23)
[2023-03-17] MEDS: levoFLOXacin 750 mg Tablet PO (08:23)
[2023-03-17] MEDS: pantoprazole DR 40 mg Tablet PO (08:23)
[2023-03-17] MEDS: cetirizine 10 mg Tablet PO (08:23)
[2023-03-17] MEDS: diphenhydrAMINE 50 mg/mL SDV 1mL 25 MG IVP (11:18)
[2023-03-17 11:28] VITALS: BP 155/70; PULSE 62; RESP 15; TEMP 36.7; O2SAT 93
[2023-03-17 11:31] LABS: Glucose Point of Care 204 mg/dL (70-110)
--- NOTE | 2023-03-17 11:33 | PM.PN ---
Subjective Subjective: feels well; harmon removed this AM, if voiding ok will be discharged home Vitals/I&O/Wt Last Vital Signs Temp 98.0 F 03/17/23 11:28 Pulse 62 03/17/23 11:28 Resp 15 03/17/23 11:28 BP 155/70 03/17/23 11:28 Pulse Ox 93 03/17/23 11:28 O2 Del Method Room Air 03/17/23 11:28 O2 Flow Rate 2 03/17/23 08:00 03/16/23 03/17/23 03/17/23 22:59 06:59 14:59 Intake Total 960 / 1680 480 / 2160 240 / 240 Output Total 500 / 1500 925 / 925 Balance 460 / 180 480 / 660 -685 / -685 Weight last 48 hrs Weight 117.979 kg Weight 124.965 kg Physical Exam Urinary Catheter Management: Harmon: Cath Placed During This Visit: yes Reason for Continuing Indwelling Catheter: Accurate Measurement of Urinary Output in Critically Ill Patients Urinary Catheter Date of Insertion: 03/11/23 Urinary Catheter Time of Insertion: 12:44 Data 03/17/23 04:51 03/17/23 04:51 Other Labs: k/l 1.21, complements normal Micro: Microbiology 03/11/23 12:19 Blood Culture - Final Blood NO GROWTH AFTER 5 DAYS 03/11/23 12:17 Blood Culture - Final Blood NO GROWTH AFTER 5 DAYS Other data: seen via telemedicine with assistance of RN at bedside A&P Assessment and plan (1) FRANCISCO (acute kidney injury): Plan 1. Acute kidney injury, good urine output, renal function improving. Low urine sodium is consistent with prerenal state. Serologic glomerulonephritis workup pending. 2. Electrolyte imbalance, resolved 3. Metabolic acidosis, resolved 4. Chronic kidney disease Recommend: renal follow-up as outpatient Attestations Medical Necessity Statement*: per primary service Time Spent in Patient Care: less than 15 minutes Coding Level of Care Code Acute Code for [facility] Fwd Diagnoses FRANCISCO (acute kidney injury) N17.9
--- NOTE | 2023-03-17 11:44 | PC.OT ---
OT EVALUATION ATTEMPTED. PATIENT AND NURSE REPORT THAT HE IS BEING D/C TODAY.
--- NOTE | 2023-03-17 12:10 | P.DS_ITS ---
Discharge Providers Date of Admission: 03/11/23 17:20 Date of Discharge: March 17, 2023 Attending Provider at Admission: Jen Albright MD Attending Provider at Discharge: Michael Estes MD Primary Care Provider: Brant Jun Diagnoses at Discharge Discharge Diagnosis (1) FRANCISCO (acute kidney injury): Status: Acute Reason for Visit Reason for Visit: Weakness Hospital Course Hospital Course Geronimo Barahona is a 62 year old male With a reported past medical history of atrial fibrillation, CHF, diabetes mellitus, who is presenting to the hospital today with increasing generalized weakness over the past 7 to 10 days.? Patient states he has been unwell recently, he has been experiencing cellulitis of his lower extremities for which she was started on doxycycline.? He does not feel this has made any difference.? Today he states he was weak enough to the point of not being able to get out of bed.? On arrival at ER he was noted to have multiple electrolyte abnormalities including severe hyperkalemia greater than 7, FRANCISCO with creatinine 5.1.? Previous baseline appears to be between 1.5-2.1.? He has had no appetite.? He has not had any recent diarrheal illness or abdominal pain.? Denies any current chest discomfort. EKG noted A-fib with slow ventricular response with bradycardia at 40 bpm.? Since receiving calcium gluconate he has improved heart rate at 68 bpm at the time of my assessment. He denies being started on any recent medications other than the doxycycline recently.Denies any recent fever at home.? Denies any fever at home.? Denies any NSAID use.? He does not know all of his medications and reports that his takes care of most of his meds. This is a 62-year-old male, who presented to [facility] for FRANCISCO, hyperkalemia, likely prerenal, nephrology was consulted, received IV fluids, overall kidney function improved, on discharge creatinine is 1.6, patient was advised to avoid nephrotoxic agents, follow-up with nephrology in 1 week On admission patient was noted to have a diffuse rash, had features of being wheals and hives, was intermittent throughout his hospitalization associate with pruritus, no lip or tongue swelling or shortness of breath, he remained stable during his hospitalization and responded somewhat to steroids, and Benadryl, etiology is uncertain, possibly allergic reaction to Augmentin and Levaquin for now I have listed those until confirmation can be made, I would discharge him on Zyrtec, prednisone, with EpiPen for anaphylactic reaction, follow-up with dermatology, and allergy Cellulitis, received inpatient IV antibiotics, was managed with Augmentin and Levaquin however due to persistence of diffuse macular rash, Augmentin and Levaquin have been stopped, he did receive vancomycin and Zosyn during his hospitalization, will discharge on doxycycline Physical Exam Const: COMMON NORMALS: no acute distress and patient oriented x3 Resp: COMMON NORMALS: normal respiratory effort, No retractions, No use of accessory muscles and clear to auscultation bilaterally AUSCULTATION: clear to auscultation bilaterally Cardio: COMMON NORMALS: regular rate, regular rhythm, S1 normal heart sound present and S2 normal heart sound present RATE: regular rate RHYTHM: regular rhythm HEART SOUNDS: S1 normal heart sound present and S2 normal heart sound present GI: COMMON NORMALS: Normal to inspection, nondistended, normoactive bowel sounds present and non-tender Extremity: COMMON NORMALS: no pedal edema Neuro: COMMON NORMALS: patient oriented x3 Psych: COMMON NORMALS: mental status grossly normal Skin: NARRATIVE SKIN EXAM: Diffuse macular rash, so she wheals and hives Urinary Catheter Management: Fuentes: Cath Placed During This Visit: yes Reason for Continuing Indwelling Catheter: Accurate Measurement of Urinary Output in Critically Ill Patients Urinary Catheter Date of Insertion: 03/11/23 Urinary Catheter Time of Insertion: 12:44 Discharge Data Studies Completed and Pending Completed Studies During Hospitalization Category Date Time Status CT abdomen renal stone [CT kidney stone 16417] Stat Cat Scan 03/11/23 13:22 Completed XR chest 1V portable [id number] Stat Exams 03/11/23 12:24 Completed CV. echo wo/w contrast [id number] Routine Ultrasound 03/11/23 17:26 Completed Pending at discharge Category Date Time Status ZEYNEP Screen w/ Reflex Routine Lab 03/14/23 09:20 Received Anti-Neutrophil Cytoplasmic AB Routine Lab 03/14/23 09:20 Received KAPPA/LAMBDA Light Free Serum Routine Lab 03/14/23 09:20 Received Total Protein Electrophoresis Routine Lab 03/14/23 09:20 Results Radiology Impressions Chest X-Ray 03/11/23 12:24 IMPRESSION: No lobar consolidation is appreciated.No interval acute cardiopulmonary changes are appreciated. Laboratory Results WBC 5.20 10^3/uL (3.29-11.43) 03/17/23 04:51 RBC 3.83 10^6/uL (3.85-5.65) L 03/17/23 04:51 Hgb 11.10 g/dL (11.27-16.99) L 03/17/23 04:51 Hct 35.5 % (37-53) L 03/17/23 04:51 MCV 92.7 fl (82-101) 03/17/23 04:51 MCH 29.0 pg (27-33) 03/17/23 04:51 MCHC 31.3 g/dL (30-55) 03/17/23 04:51 RDW 15.1 % (12.1-15.1) 03/17/23 04:51 Plt Count 160 10^3/cmm (157-399) 03/17/23 04:51 MPV 9.2 fL (7.4-10.4) 03/17/23 04:51 Neut % (Auto) 83.4 % 03/17/23 04:51 Lymph % (Auto) 6.5 % 03/17/23 04:51 Coles % (Auto) 7.5 % 03/17/23 04:51 Eos % (Auto) 1.2 % 03/17/23 04:51 Baso % (Auto) 0.4 % 03/17/23 04:51 Neut # (Auto) 4.34 10^3/uL (1.8-7.7) 03/17/23 04:51 Lymph # (Auto) 0.3 10^3/uL (0.8-4.8) L 03/17/23 04:51 Coles # (Auto) 0.4 10^3/uL (0.2-0.9) 03/17/23 04:51 Eos # (Auto) 0.1 10^3/uL (0.0-0.8) 03/17/23 04:51 Baso # (Auto) 0.0 10^3/uL (0.0-0.1) 03/17/23 04:51 Nucleated RBC % (auto) 0 % 03/17/23 04:51 Nucleated RBCs # 0.0 /100WBC 03/17/23 04:51 ESR 65 mm/hr (0-10) H 03/11/23 12:17 Sodium 140 mmol/L (136-145) 03/17/23 04:51 Potassium 4.3 mmol/L (3.5-5.1) 03/17/23 04:51 Chloride 102 mmol/L (98-107) 03/17/23 04:51 Carbon Dioxide 29 mmol/L (22-29) 03/17/23 04:51 Anion Gap 13.3 (5-19) 03/17/23 04:51 BUN 61 mg/dL (8-23) H 03/17/23 04:51 Creatinine 1.6 mg/dL (0.7-1.2) H 03/17/23 04:51 GFR Calculation 44.3 mL/min (90-130) L 03/17/23 04:51 Glucose 211 mg/dL (65-115) H 03/17/23 04:51 POC Glucose 204 mg/dL (70-110) H 03/17/23 11:27 Calculated Osmolality 314 mOsm/kg (285-295) H 03/17/23 04:51 Lactate 0.9 mmol/L (0.5-2.2) 03/11/23 18:22 Uric Acid 10.0 mg/dL (3.4-7.0) H 03/14/23 07:20 Calcium 8.8 mg/dL (8.5-10.5) 03/17/23 04:51 Phosphorus 4.3 mg/dL (2.5-4.5) 03/14/23 07:20 Magnesium 1.8 mg/dL (1.7-2.3) 03/14/23 07:20 Total Bilirubin 0.3 mg/dL (0.15-1.2) 03/17/23 04:51 AST 13 U/L (0-40) 03/17/23 04:51 ALT 11 U/L (0-41) 03/17/23 04:51 Alkaline Phosphatase 153 U/L (40-130) H 03/17/23 04:51 Creatine Kinase 89 U/L (39-308) 03/14/23 07:20 Troponin T Baseline 82 ng/L (0-15) H 03/11/23 12:17 Troponin T 120 Minute 78.37 ng/L (0-15) H 03/11/23 14:15 Delta Troponin T -3.63 ABS# (0-10) L 03/11/23 14:15 Troponin T Hi Sens 6Hr 78.39 ng/L (0-15) H 03/11/23 18:22 Troponin T Hi Sens 6Hr Delta -3.61 ng/L (0-12) L 03/11/23 18:22 C-Reactive Protein 55.8 mg/L (0.0-4.9) H 03/11/23 12:17 NT-Pro-B Natriuret Pep 1655 pg/mL (0-125) H 03/11/23 12:17 Total Protein 7.1 g/dL (6.6-8.7) 03/17/23 04:51 Albumin 3.5 g/dL (3.5-5.2) 03/17/23 04:51 Globulin 3.6 g/dL (1.3-4.6) 03/17/23 04:51 Procalcitonin 0.61 ng/mL (0-0.5) H 03/11/23 12:17 Urine Color Yellow (Yellow) 03/11/23 12:42 Urine Appearance Hazy (CLEAR) A 03/11/23 12:42 Urine pH 5 (5-7) 03/11/23 12:42 Ur Specific Converse 1.020 (1.005-1.030) 03/11/23 12:42 Urine Protein Trace (Negative) 03/11/23 12:42 Urine Glucose (UA) 1+ (Normal) H 03/11/23 12:42 Urine Ketones Negative (Negative) 03/11/23 12:42 Urine Blood 2+ (Negative) H 03/11/23 12:42 Urine Nitrate Negative (Negative) 03/11/23 12:42 Urine Bilirubin Neg (Negative) 03/11/23 12:42 Urine Urobilinogen Norm mg/dL (Negative) 03/11/23 12:42 Ur Leukocyte Esterase 2+ (Negative) H 03/11/23 12:42 Urine RBC 5-10 /hpf (0-2) H 03/11/23 12:42 Urine WBC 15-25 /hpf (0-5) H 03/11/23 12:42 Ur Eosinophil Smear 0 (0-0) 03/11/23 12:42 Ur Squamous Epith Cells 0-4 /hpf (0-5) H 03/11/23 12:42 Amorphous Sediment Trace /hpf 03/11/23 12:42 Urine Bacteria Trace /hpf (NONE) 03/11/23 12:42 Hyaline Casts 5-10 /lpf H 03/11/23 12:42 Urine Mucus 1+ /hpf 03/11/23 12:42 Urine Eosinophils No eosinophils seen 03/11/23 12:42 Ur Random Sodium < 10 mmol/L 03/11/23 12:42 Ur Random Potassium 41 mmol/L 03/11/23 12:42 Ur Random Chloride 11 mmol/L 03/11/23 12:42 Random Vancomycin 27.2 ug/mL (20.0-40.0) 03/14/23 07:20 Complement C3 121 mg/dL (90-180) 03/14/23 07:20 Complement C4 30 mg/dL (10-40) 03/14/23 07:20 Influenza Type A Ag negative (Negative) 03/11/23 12:40 Influenza Type B Ag negative (Negative) 03/11/23 12:40 SARS-CoV-2 Ag (Rapid) negative (Negative) 03/11/23 12:40 Vitals Last Vital Signs Temp 98.0 F 03/17/23 11:28 Pulse 62 03/17/23 11:28 Resp 15 03/17/23 11:28 BP 155/70 03/17/23 11:28 Pulse Ox 93 03/17/23 11:28 O2 Del Method Room Air 03/17/23 11:28 O2 Flow Rate 2 03/17/23 08:00 Discharge Plan Discharge Patient Disposition: Home Condition: Stable Prescriptions: New prednisone 20 mg Tablet 20 mg PO Q12H 5 Days Qty: 10 0RF doxycycline hyclate 100 mg tablet 100 mg PO BID 7 Days Qty: 14 0RF Zyrtec 10 mg tablet 10 mg PO DAILY PRN (Reason: allergy symptoms) 30 Days Qty: 30 0RF epinephrine 0.3 mg/0.3 mL auto-injector 0.3 mg IM Q10M PRN (Reason: anaphylaxis) Qty: 2 0RF Rx Instructions: for 2 doses Continued albuterol sulfate 2.5 mg /3 mL (0.083 %) solution for nebulization 2.5 mg inhalation Q4H PRN (Reason: Shortness Of Breath) amiodarone 200 mg tablet 200 mg PO DAILY Jardiance 25 mg tablet 25 mg PO DAILY nystatin 100,000 unit/gram powder 1 applic topical BID Qty: 30 0RF SSD 1 % cream 1 applic TOPICAL DAILY gabapentin 100 mg capsule 100 mg PO TID Novolog FlexPen U-100 Insulin 100 unit/mL (3 mL) insulin pen See Rx Instructions .ROUTE .COMPLEX Rx Instructions: INJECT SUBCUTANEOUSLY FOLLOWS PER SLIDING SCALE. BS 120-160=2 UNITS, 1 60-200-4 UNITS, 201-240=6 UNITS, 241-280=8 UNITS, 281-320=11 UNITS, GREATER THAN 321=15 UNITS. Eliquis 5 mg tablet 5 mg PO BID Changed metoprolol tartrate 50 mg tablet 25 mg PO BID 30 Days Qty: 15 0RF glipizide 10 mg tablet 5 mg PO BID 30 Days Qty: 30 0RF Levemir FlexPen 100 unit/mL (3 mL) insulin pen 10 unit SUBCUT DAILY Qty: 15 0RF Discontinued amlodipine 10 mg tablet 10 mg PO DAILY doxycycline hyclate 100 mg capsule 100 mg PO BID Discharge Orders: Discharge Order (Routine); Ordered 03/17/23 Ordered By: Michael Estes Referrals: Brant Barahona [Primary Care Provider] - 03/20/23 2:00 pm Carl Acevedo MD [Referring] - 2 weeks (We have notified your physician's clinic of the need for a follow-up appointment to be scheduled. If you have not heard from them within the next 2 business days, please call them directly. You may also reach out to our campaign manager at [phone] and she can assist you.faxed referral) Taya Daneille [Referring] - 1 week (We have notified your physician's clinic of the need for a follow-up appointment to be scheduled. If you have not heard from them within the next 2 business days, please call them directly. You may also reach out to our campaign manager at [phone] and she can assist you.faxed referral) Ayala Corral DO [Physician] - 1-3 days (We have notified your physician's clinic of the need for a follow-up appointment to be scheduled. If you have not heard from them within the next 2 business days, please call them directly. You may also reach out to our campaign manager at [phone] and she can assist you.referral sent) Discharge Diet: Cardiac Discharge Activity: Resume usual activity Patient Instructions: Doxycycline (By mouth), Prednisone (By mouth), Cetirizine (By mouth), Epinephrine (By injection), Heart Failure (GEN), Acute Kidney Injury (GEN), CHF Stoplight, Opioid Safety Activity Restrictions/Additional Instructions: -Please monitor your blood sugars closely -Monitor your blood sugars 3 times daily as after meals -Please record your blood sugars, and a blood sugar log -For your NovoLog -Please inject blood sugar after meals based on sliding scale provided -Do not inject insulin if you do not eat as hypoglycemia kills -This is a NovoLog sliding scale -Insulin sliding ?fingerstick? Insulin ?141-180?0 units/sq 181-220?2 units/sq ?221-260?4 units/sq ?261-300 6 units/sq ?301-350?8 units/sq ?351-400 10 units/sq ?401-450?12 units/sq >450? 14units/sq -If your blood sugar is greater than 500 go to the emergency room -If your blood sugar is less than 60 or at anytime you feel lightheaded or dizzy or diaphoretic or have chest palpitations check your blood sugar, and eat a hard candy or drink orange juice and go immediately to the emergency room -Remember hypoglycemia kills, so if his blood sugar is less than 60 we have to increase it by taking in a sugary meal such as a hard candy or orange juice and go to the emergency room -If you have any questions please call us where here to help -if you develop a worsening rash please go to er -if you develop lip or tongue swelling or facial swelling or shortness of breath, this could be a life threatening anaphylactic reaction, please use epi pen as prescribed, and go to emergency room Discharge Attestations Time Spent in Discharge Care*: greater than 30 min Quality Metrics Clinical Quality Measures [ No reported AMI, CVA or VTE this stay] Coding Level of Care Code Acute Code for [facility] Fwd Diagnoses FRANCISCO (acute kidney injury) N17.9
[2023-03-17 12:27] VITALS: BP 155/70; PULSE 62; RESP 15; TEMP 36.7; O2SAT 93
[2023-03-17 14:24] LABS: KAPPA LIGHT CHAIN, FREE, SERUM 117.2 mg/L (3.3-19.4); KAPPA/LAMBDA LIGHT CHAINS FREE 1.21 (0.26-1.65); LAMBDA LIGHT CHAIN, FREE, SERU 97.1 mg/L (5.7-26.3)
[2023-03-17 15:45] LABS: ALBUMIN 3.1 g/dL (3.8-4.8); ALPHA 1 GLOBULIN 0.4 g/dL (0.2-0.3); ALPHA 2 GLOBULIN 0.6 g/dL (0.5-0.9); BETA 1 GLOBULIN 0.3 g/dL (0.4-0.6); BETA 2 GLOBULIN 0.4 g/dL (0.2-0.5); GAMMA GLOBULIN 1.2 g/dL (0.8-1.7)
[2023-03-17 16:46] LABS: Anti-Nuclear Antibody Screen NEGATIVE (NEGATIVE)
[2023-03-18 02:19] LABS: ANCA Screen NEGATIVE (NEGATIVE)
== END 2023-03-17 12:38 | disposition home or self-care (01) | DRG 683 ==
LOC: ER 14:53 → ICU 03-12 06:09 → MEDSURG 03-13 13:25
PROVIDERS: Hospitalist; Internal Medicine; Admitting Provider Student in an Organized Health Care Education/Training Program; Emergency Provider Internal Medicine; PCP Physician Assistant Medical; Visit Provider Family Medicine
DX: N17.9 Acute kidney failure, unspecified (principal); E87.20 Acidosis, unspecified; J96.11 Chronic respiratory failure with hypoxia; L03.115 Cellulitis of right lower limb; L03.116 Cellulitis of left lower limb; Z11.52 Encounter for screening for COVID-19; I48.91 Unspecified atrial fibrillation; E11.22 Type 2 diabetes mellitus with diabetic chronic kidney disease; I12.9 Hypertensive chronic kidney disease with stage 1 through stage 4 chronic kidney disease, or unspecified chronic kidney disease; N18.30 Chronic kidney disease, stage 3 unspecified; E87.5 Hyperkalemia; Z79.84 Long term (current) use of oral hypoglycemic drugs; Z79.4 Long term (current) use of insulin; Z79.01 Long term (current) use of anticoagulants; J44.9 Chronic obstructive pulmonary disease, unspecified; Z91.81 History of falling; Z87.891 Personal history of nicotine dependence; L30.4 Erythema intertrigo; R79.89 Other specified abnormal findings of blood chemistry; I87.2 Venous insufficiency (chronic) (peripheral)
CPT/HCPCS: 36415; 36416; 51702; 71045; 74176; 80048; 80053; 80202; 81001; 82436; 82550; 82962; 83605; 83735; 83880; 83883; 84100; 84132; 84133; 84145; 84155; 84165; 84300; 84484; 84550; 85025; 85651; 85999; 86036; 86038; 86140; 86160; 87040; 87086; 87426; 87804; 93005; 96365; 96367; 96372; 96375; 96376; 97110; 97530; 99285; C8929; J0610; J0612; J1200; J1644; J1815; J1940; J2270; J2543; J3372; J3490; J7030; J7070; J7512; P9046; Q3014; Q9956

== ENCOUNTER 2023-05-06 23:42 | Emergency (ER) | payer MEDICAID, SELFPAY ==
[2023-05-06 23:47] VITALS: BP 106/49; PULSE 77; RESP 20; TEMP 36.4; O2SAT 95; BMI 44.7
--- NOTE | 2023-05-07 00:11 | CTR_ITS ---
PROCEDURE INFORMATION: Exam: CT Cervical Spine Without Contrast Exam date and time: 05/07/2023 1:24 AM Age: 62 years old Clinical indication: Injury or trauma; Fall; Additional info: Fall trauma TECHNIQUE: Imaging protocol: Computed tomography of the cervical spine without contrast. Radiation optimization: All CT scans at this facility use at least one of these dose optimization techniques: automated exposure control; mA and/or kV adjustment per patient size (includes targeted exams where dose is matched to clinical indication); or iterative reconstruction. REPORTING DATA: Count of CT and Cardiac NM exams in prior 12 months: This patient has received 4 known CTs and 0 known cardiac nuclear medicine studies in the 12 months prior to the current study. COMPARISON: CT head wo con* [id number] 05/07/2023 1:22 AM RADIATION DOSE METRICS: Total DLP (mGy-cm): 279.07 FINDINGS: Bones/joints: No acute fracture. Normal alignment. No significant disc bulge or herniation. No severe spinal canal stenosis. No significant neural foraminal narrowing. The cervical spine demonstrates mild degenerative changes at multiple levels. Paranasal sinuses: Left maxillary sinus opacification with chronic mucoperiosteal thickening changes. Lungs: Lung apices are normal. Soft tissues: Unremarkable. CT/CT cervical spin wo con* [id number] IMPRESSION: Negative for cervical spine injury.
--- NOTE | 2023-05-07 00:11 | CTR_ITS ---
PROCEDURE INFORMATION: Exam: CT Head Without Contrast Exam date and time: 05/07/2023 1:22 AM Age: 62 years old Clinical indication: Injury or trauma; Fall; Blunt trauma (contusions or hematomas); Additional info: Fall head trauma TECHNIQUE: Imaging protocol: Computed tomography of the head without contrast. Radiation optimization: All CT scans at this facility use at least one of these dose optimization techniques: automated exposure control; mA and/or kV adjustment per patient size (includes targeted exams where dose is matched to clinical indication); or iterative reconstruction. REPORTING DATA: Count of CT and Cardiac NM exams in prior 12 months: This patient has received 4 known CTs and 0 known cardiac nuclear medicine studies in the 12 months prior to the current study. COMPARISON: CT head wo con* [id number] 11/14/2022 2:05 AM RADIATION DOSE METRICS: Total DLP (mGy-cm): 279.07 FINDINGS: Brain: Encephalomalacia in the right parietal and occipital lobes redemonstrated and similar to the prior head CT. No acute intracranial abnormality. Cerebral ventricles: No ventriculomegaly. Paranasal sinuses: Chronic appearing architectural remodeling left maxillary sinus with wall thickening and what appears to be a chronic fracture present on the prior head CT dated 11/14/2022. Mastoid air cells: Visualized mastoid air cells are well aerated. Bones/joints: Unremarkable. No acute fracture. Soft tissues: Unremarkable. CT/CT head wo con* [id number] IMPRESSION: 1. No acute intracranial abnormality. 2. Encephalomalacia in the right parietal and occipital lobes redemonstrated and similar to the prior head CT.
--- NOTE | 2023-05-07 00:11 | ED_ITS ---
HPI - Fall General: Chief Complaint: Fall Stated Complaint: FALL Time Seen by Provider: 05/06/23 23:48 History of Present Illness: 62-year-old male presents emergency depa rtment via EMS personnel patient states he was in his bathroom had a slip and fall and hit his head. He states he takes anticoagulation Eliquis but did not lose consciousness. He states he has significant swelling to his lower extremities and that is not anything new. He does have his left lower extremity wrapped as he has a poor healing wound there. Patient states he has low back pain and his pain is a 3 out of 10. Review of Systems General: Reports: 10 or more systems reviewed and unremarkable except in HPI and below GI: Reports: nausea Musc: Reports: back pain [facility] ED PFSH: Medical History (Updated 05/07/23 @ 02:21 by Cory Abreu MD) Bilateral lower leg cellulitis Metabolic acidosis Hyponatremia Hyperkalemia DKA (diabetic ketoacidosis) Falls Generalized weakness FRANCISCO (acute kidney injury) CHF (congestive heart failure) DM2 (diabetes mellitus, type 2) Chronic respiratory failure with hypoxia COPD (chronic obstructive pulmonary disease) Social History Smoking and tobacco/nicotine status: former use of tobacco/nicotine Physical Exam Narrative: EXAM NARRATIVE: Constitutional: the patient appears well nourished and of normal development. Vital signs as documented. No acute distress at present. Alert and oriented-to person, place, time and situation. Head, eyes, ears, nose, mouth, throat: Normocephalic, atraumatic. Pupils-equal, round, reactive to light. No scleral icterus. Normal-appearing external ears. Normal appearing nasal turbinates, no drainage. No obvious oral lesions, posterior oropharynx without erythema or exudates. Neck: Supple, trachea is midline, no lymphadenopathy, no jugular venous distension, thyromegaly, or carotid bruits. Carotid upstrokes are brisk bilaterally. Lungs: clear to auscultation to all lung staples. Symmetrical rise and fall of chest, no obvious signs of increased work of breathing at present. Cardiac: Regular rate and rhythm, positive S1, S2. No murmurs, rubs or gallops that I can appreciate Abdomen: Soft, non-tender to palpation, normal active bowel sounds to all quadrants. No palpable masses, no organomegaly and abdominal bruits. Extremities: 2+ pulses in the upper extremities that are equal bilaterally, 2+ pulses in the lower extremities that are equal bilaterally. 3+ bilateral lower extremity edema that is weeping. He does have wound to his left lower leg that is currently with dressing. Moves all extremities well, sensation to all extremities are noted. Skin: Warm, dry, intact. Back: No point tenderness, no vertebral step-offs no crepitus that I can appreciate. Normal alignment. He he states vague generalized musculoskeletal pain. Course Vital Signs: Vital signs: Vital Signs Temperature 97.6 F 05/06/23 23:47 Pulse Rate 78 05/07/23 02:13 Respiratory Rate 18 05/07/23 02:13 Blood Pressure 130/64 05/07/23 02:13 Pulse Oximetry 92 05/07/23 02:13 Oxygen Delivery Me thod Room Air 05/06/23 23:47 MDM - Fall Medical Decision Making Physical exam completed and documented I will obtain a CT scan of his head and cervical spine as well as x-rays of his back provided pain medication and antinausea medicine. Lab Data Radiology Impressions Cervical Spine CT 05/07/23 00:11 IMPRESSION: Negative for cervical spine injury. Head CT 05/07/23 00:11 IMPRESSION: 1. No acute intracranial abnormality. 2. Encephalomalacia in the right parietal and occipital lobes redemonstrated and similar to the prior head CT. Lumbar Spine CT 05/07/23 01:14 IMPRESSION: Mild severity L2 and L4 vertebral body compression fractures are suspected. All radiology interpretation(s) finalized by discharge Discharge Plan Discharge Patient Disposition: Home Clinical Impression: Accidental fall Qualifiers: Encounter type: initial encounter Qualified Code(s): W19.XXXA - Unspecified fall, initial encounter Back pain Qualifiers: Back pain location: low back pain Chronicity: acute Back pain laterality: bilateral Sciatica presence: without sciatica Qualified Code(s): M54.50 - Low back pain, unspecified Compression fracture of L2 lumbar vertebra Qualifiers: Encounter type: initial encounter Qualified Code(s): S32.020A - Wedge compression fracture of second lumbar vertebra, initial encounter for closed fracture Closed compression fracture of L4 vertebra Qualifiers: Encounter type: initial encounter Qualified Code(s): S32.040A - Wedge compression fracture of fourth lumbar vertebra, initial encounter for closed fracture Condition: Stable Prescriptions: New hydrocodone-acetaminophen 10-325 mg tablet 1 tab PO Q6H PRN (Reason: pain) Qty: 14 0RF cyclobenzaprine 10 mg tablet 10 mg PO Q8H Qty: 14 0RF No Action albuterol sulfate 2.5 mg /3 mL (0.083 %) solution for nebulization 2.5 mg inhalation Q4H PRN (Reason: Shortness Of Breath) amiodarone 200 mg tablet 200 mg PO DAILY Jardiance 25 mg tablet 25 mg PO DAILY nystatin 100,000 unit/gram powder 1 applic topical BID Qty: 30 0RF SSD 1 % cream 1 applic TOPICAL DAILY gabapentin 100 mg capsule 100 mg PO TID Novolog FlexPen U-100 Insulin 100 unit/mL (3 mL) insulin pen See Rx Instructions .ROUTE .COMPLEX Rx Instructions: INJECT SUBCUTANEOUSLY FOLLOWS PER SLIDING SCALE. BS 120-160=2 UNITS, 160-200-4 UNITS, 201-240=6 UNITS, 241-280=8 UNITS, 281-320=11 UNITS, GREATER THAN 321=15 UNITS. Eliquis 5 mg tablet 5 mg PO BID metoprolol tartrate 50 mg tablet 25 mg PO BID 30 Days Qty: 15 0RF glipizide 10 mg tablet 5 mg PO BID 30 Days Qty: 30 0RF Levemir FlexPen 100 unit/mL (3 mL) insulin pen 10 unit SUBCUT DAILY Qty: 15 0RF epinephrine 0.3 mg/0.3 mL auto-injector 0.3 mg IM Q10M PRN (Reason: anaphylaxis) Qty: 2 0RF Rx Instructions: for 2 doses Discharge Orders: Discharge ED (Routine); Ordered 05/07/23 Ordered By: Cory Abreu Referrals: Brant Barahona [Primary Care Provider] - Discharge Diet: Advance as tolerated Discharge Activity: Resume usual activity Patient Instructions: Opioid Safety, Pain Management Activity Restrictions/Additional Instructions: Activity Restrictions/Additional Instructions: Thank you for choosing [facility] for your healthcare needs today. Please realize that you were seen in the Emergency Department and that we are providing you with an emergency medical screening exam and this may not be a complete and all inclusive of all the testing and or medical work-up that you may need to determine your ailment or severity of your illness. It is very important that you follow-up as instructed with your Primary care provider or Specialist for additional evaluation and to discuss your medical treatment plan. You may return to the Emergency Department should you have concerns or if your condition changes or worsens in any way. Coding Level of Care Code ED Hand Engraver for Courtney Doran
[2023-05-07] MEDS: HYDROmorphone 1 mg/mL INJ 1 mL IVP (00:47)
[2023-05-07] MEDS: ondansetron 2 mg/ML SDV 2 mL 4 MG IVP (00:47)
--- NOTE | 2023-05-07 01:14 | CTR_ITS ---
PROCEDURE INFORMATION: Exam: CT Lumbar Spine Without Contrast Exam date and time: 05/07/2023 1:19 AM Age: 62 years old Clinical indication: Injury or trauma; Fall; Additional info: Fall/pain TECHNIQUE: Imaging protocol: Computed tomography of the lumbar spine without contrast. Radiation optimization: All CT scans at this facility use at least one of these dose optimization techniques: automated exposure control; mA and/or kV adjustment per patient size (includes targeted exams where dose is matched to clinical indication); or iterative reconstruction. REPORTING DATA: Count of CT and Cardiac NM exams in prior 12 months: This patient has received 4 known CTs and 0 known cardiac nuclear medicine studies in the 12 months prior to the current study. COMPARISON: CT kidney stone [id number] 03/11/2023 1:43 PM RADIATION DOSE METRICS: Total DLP (mGy-cm): 1946.79 FINDINGS: Bones/joints: Diffuse osseous demineralization changes. Mild vertebral body height loss changes of L2 and L4 vertebral bodies new from comparison. Concavity of the vertebral endplates new from comparison. No retropulsion. Unremarkable lumbar spine alignment. Relatively mild diffuse facet joint arthropathy changes. Moderate to severe L5-S1 disc height loss. Disc heights relatively preserved at other intervertebral levels. Pleural spaces: Chronic left posterior pleural thickening stable from comparison. Gallbladder and bile ducts: Cholelithiasis. Soft tissues: Unremarkable. CT/CT lumbar spine wo con* [id number] IMPRESSION: Mild severity L2 and L4 vertebral body compression fractures are suspected.
[2023-05-07 02:13] VITALS: BP 130/64; PULSE 78; RESP 18; O2SAT 92
[2023-05-07 03:40] VITALS: BP 130/64; PULSE 78; RESP 18; TEMP 36.4; O2SAT 92
== END 2023-05-07 03:43 | disposition home or self-care (01) ==
PROVIDERS: Emergency Provider Internal Medicine; PCP Physician Assistant Medical
DX: S32.020A Wedge compression fracture of second lumbar vertebra, initial encounter for closed fracture (principal); S32.040A Wedge compression fracture of fourth lumbar vertebra, initial encounter for closed fracture; Z79.01 Long term (current) use of anticoagulants; Z79.84 Long term (current) use of oral hypoglycemic drugs; Z79.4 Long term (current) use of insulin; Z87.891 Personal history of nicotine dependence; I50.9 Heart failure, unspecified; E11.9 Type 2 diabetes mellitus without complications; J44.9 Chronic obstructive pulmonary disease, unspecified; W01.0XXA Fall on same level from slipping, tripping and stumbling without subsequent striking against object, initial encounter
CPT/HCPCS: 70450; 72125; 72131; 96374; 96375; 99285; J1170; J2405

== ENCOUNTER 2023-05-13 19:11 | Inpatient (IN) | payer MEDICAID, SELFPAY ==
[2023-05-13] VITALS (35 sets, daily range): BP systolic 107–175; BP diastolic 35–73; PULSE 59–182; RESP 14–35; TEMP 34.2–34.3; O2SAT 75–100; BMI 44.7
--- NOTE | 2023-05-13 19:20 | ECG_ITS ---
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 [email or web address]/store/[id number] f
[2023-05-13 19:54] LABS: Basophils % 0.2 %; Eosinophils % 0.1 %; Hematocrit 43.3 % (37-53); Lymphocytes # 0.2 10^3/uL (0.8-4.8); Lymphocytes % 1.2 %; Mean Corpuscular HGB Conc 32.3 g/dL (30-55); Mean Corpuscular Hemoglobin 30.8 pg (27-33); Mean Corpuscular Volume 95.2 fl (82-101); Mean Platelet Volume 9.2 fL (7.4-10.4); Monocytes # 0.5 10^3/uL (0.2-0.9); Neutrophils % 93.8 %; Nucleated Red Blood Cells % 0 %; Platelet Count 364 10^3/cmm (157-399); Red Blood Count 4.55 10^6/uL (3.85-5.65); Red Cell Distribution Width 17.2 % (12.1-15.1); White Blood Count 12.99 10^3/uL (3.29-11.43)
--- NOTE | 2023-05-13 20:06 | ED_ITS ---
HPI - General Adult 2 General: Chief complaint: General Medical Stated complaint: abd pain Time Seen by Provider: 05/13/23 19:11 Source: patient and EMS Mode of arrival: EMS Limitations: no limitations History of Present Illness: 62-year-old male is here with multiple c omplaints he had a fall little over a week ago had compression fracture of L4 and L2 is minor he states since then he has been having severe pain in his back along with abdomen he is got chronic swelling in his legs and CHF and having bilateral leg pain. States he is also had some abdominal pain as well denies any known fever denies any chest pain. Associated symptoms: Reports dyspnea; Deny chest pain, headache(s), nausea, rash or vomiting Review of Systems 2 Const: Denies: fever(s), chills or body aches Eyes: Denies: eye discomfort ENMT: Denies: throat pain or dental pain Card: Denies: chest pain Resp: Reports: dyspnea GI: Reports: abdominal pain; Denies: nausea, vomiting or diarrhea Musc: Reports: back pain and extremity pain; Denies: neck pain Skin/Breast: Denies: rash Neuro: Denies: headache(s) PFSH ED 2 PFSH: Medical History Bilateral lower leg cellulitis Metabolic acidosis Hyponatremia Hyperkalemia DKA (diabetic ketoacidosis) Falls Generalized weakness FRANCISCO (acute kidney injury) CHF (congestive heart failure) DM2 (diabetes mellitus, type 2) Chronic respiratory failure with hypoxia COPD (chronic obstructive pulmonary disease) Social History Smoking and tobacco/nicotine status: former use of tobacco/nicotine Physical Exam 2 Const: COMMON NORMALS: patient oriented x3 HENMT: COMMON NORMALS: normocephalic and atraumatic HEAD & SCALP: n ormocephalic and atraumatic Eye: COMMON NORMALS: Equal, round and reactive pupils present and EOMs intact bilaterally PUPIL: Yes Equal, round and reactive pupils present Neck/C-Spine: COMMON NORMALS: full ROM and supple Chest: COMMONS NORMALS: normal inspection of the chest and normal palpation of entire chest wall Resp: COMMON NORMALS: No retractions, No use of accessory muscles and clear to auscultation bilaterally AUSCULTATION: clear to auscultation bilaterally Cardio: COMMON NORMALS: regular rate, regular rhythm and No murmurs present (Cardio) RATE: regular rate RHYTHM: regular rhythm GI: COMMON NORMALS: Normal to inspection, nondistended, normoactive bowel sounds present, Soft to palpation, non-tender and no masses PALPATION: Yes Soft to palpation Extremity: COMMON NORMALS: full ROM NARRATIVE EXTREMITY EXAM: 2+ edema to bilateral lower ext with elisabeth thema and multiple chronic wounds Neuro: COMMON NORMALS: patient oriented x3, moves all extremities and no focal motor deficits Psych: COMMON NORMALS: mental status grossly normal, Normal thought process present and cooperative THOUGHT PROCESS: Normal thought process present Skin: COMMON NORMALS: no rashes or lesions noted and no wounds GENERAL SKIN EXAM: no rashes or lesions noted Course 2 Vital Signs: Vital signs: Vital Signs Temperature 93.6 F L 05/13/23 19:11 Pulse Rate 123 H 05/13/23 20:46 Respiratory Rate 30 H 05/13/23 20:46 Blood Pressure 114/35 05/13/23 20:28 Pulse Oximetry 98 05/13/23 20:46 Oxygen Delivery Me thod Nasal Cannula 05/13/23 20:46 Oxygen Flow Rate 4 05/13/23 20:46 MDM - General Adult Medical Decision Making Patient presents here with acute renal failure along with hyperkalemia does have EKG changes patient was given calcium along with insulin patient's going to the ICU was going to have a dialysis catheter placed by surgeon hospitalist is admitting at this time. Medical Records I reviewed the patient's medical records. Lab Data I reviewed the patient's lab results. 05/13/23 19:40 05/13/23 19:40 Laboratory Results WBC 12.99 10^3/uL (3.29-11.43) H 05/13/23 19:40 RBC 4.55 10^6/uL (3.85-5.65) 05/13/23 19:40 Hgb 14.00 g/dL (11.27-16.99) 05/13/23 19:40 Hct 43.3 % (37-53) 05/13/23 19:40 MCV 95.2 fl (82-101) 05/13/23 19:40 MCH 30.8 pg (27-33) 05/13/23 19:40 MCHC 32.3 g/dL (30-55) 05/13/23 19:40 RDW 17.2 % (12.1-15.1) H 05/13/23 19:40 Plt Count 364 10^3/cmm (157-399) 05/13/23 19:40 MPV 9.2 fL (7.4-10.4) 05/13/23 19:40 Neut % (Auto) 93.8 % 05/13/23 19:40 Lymph % (Auto) 1.2 % 05/13/23 19:40 [place] % (Auto) 4.0 % 05/13/23 19:40 Eos % (Auto) 0.1 % 05/13/23 19:40 Baso % (Auto) 0.2 % 05/13/23 19:40 Neut # (Auto) 12.20 10^3/uL (1.8-7.7) H 05/13/23 19:40 Lymph # (Auto) 0.2 10^3/uL (0.8-4.8) L 05/13/23 19:40 [place] # (Auto) 0.5 10^3/uL (0.2-0.9) 05/13/23 19:40 Eos # (Auto) 0.0 10^3/uL (0.0-0.8) 05/13/23 19:40 Baso # (Auto) 0.0 10^3/uL (0.0-0.1) 05/13/23 19:40 Nucleated RBC % (auto) 0 % 05/13/23 19:40 Nucleated RBCs # 0.0 /100WBC 05/13/23 19:40 Sodium 121 mmol/L (136-145) L 05/13/23 19:40 Potassium 7.7 mmol/L (3.5-5.1) H* 05/13/23 19:40 Chloride 86 mmol/L (98-107) L 05/13/23 19:40 Carbon Dioxide 5 mmol/L (22-29) L* 05/13/23 19:40 Anion Gap 37.7 (5-19) H 05/13/23 19:40 BUN 110 mg/dL (8-23) H* D 05/13/23 19:40 Creatinine 9.1 mg/dL (0.7-1.2) H* 05/13/23 19:40 GFR Calculation 6.0 mL/min (90-130) L 05/13/23 19:40 Glucose 222 mg/dL (65-115) H 05/13/23 19:40 Calculated Osmolality 294 mOsm/kg (285-295) 05/13/23 19:40 Lactic Acid 3.2 mmol/L (0.5-2.2) H 05/13/23 19:40 Calcium 8.9 mg/dL (8.5-10.5) 05/13/23 19:40 Magnesium 3.4 mg/dL (1.7-2.3) H 05/13/23 19:40 Total Bilirubin 0.3 mg/dL (0.15-1.2) 05/13/23 19:40 AST 6 U/L (0-40) 05/13/23 19:40 ALT 6 U/L (0-41) 05/13/23 19:40 Alkaline Phosphatase 261 U/L (40-130) H 05/13/23 19:40 NT-Pro-B Natriuret Pep 3518 pg/mL (0-125) H 05/13/23 19:40 Total Protein 8.7 g/dL (6.6-8.7) 05/13/23 19:40 Albumin 3.5 g/dL (3.5-5.2) 05/13/23 19:40 Globulin 5.2 g/dL (1.3-4.6) H 05/13/23 19:40 Lipase 58 U/L (13-60) 05/13/23 19:40 All radiology interpretation(s) finalized by discharge Critical Care Time 2 Critical Care Time: Critical Care Time: Yes Total Critical Care Time: 45 Attestation: The high probability of a clinically significant, sudden or life threatening deterioration of the patient's renal system(s) required my full and direct attention, intervention and personal management. The critical care time is as shown. This time is in addition to time spent performing any reported procedures but includes the following: [x] Data and vital sign review and interpretation [x] Patient assessment, examination and intervention [x] Documentation [x] Medication orders and management Discharge Plan Discharge Admit Provider: Erick Rodriguez Clinical Impression: Acute hyperkalemia, Acute kidney failure Condition: Stable Coding Level of Care Code ED Waiter/Waitress Take Out for Courtney Doran
[2023-05-13] MEDS: ondansetron 2 mg/ML SDV 2 mL 4 MG IVP (20:12)
[2023-05-13] MEDS: morphine 4 mg/mL SDV 1 mL IVP (20:12)
[2023-05-13 20:13] LABS: Alanine Aminotransferase 6 U/L (0-41); Albumin Level 3.5 g/dL (3.5-5.2); Alkaline Phosphatase 261 U/L (40-130); Anion Gap 37.7 (5-19); Aspartate Amino Transferase 6 U/L (0-40); Calcium 8.9 mg/dL (8.5-10.5); Chloride 86 mmol/L (98-107); Globulin 5.2 g/dL (1.3-4.6); Glucose 222 mg/dL (65-115); Lipase 58 U/L (13-60); Osmolality Calculated 294 mOsm/kg (285-295); Sodium 121 mmol/L (136-145); Total Bilirubin 0.3 mg/dL (0.15-1.2); Total Protein 8.7 g/dL (6.6-8.7)
[2023-05-13 20:14] LABS: Lactic Sepsis W/Reflex 3.2 mmol/L (0.5-2.2)
[2023-05-13 20:31] LABS: Blood Urea Nitrogen 110 mg/dL (8-23); Carbon Dioxide 5 mmol/L (22-29); Potassium 7.7 mmol/L (3.5-5.1)
[2023-05-13] MEDS: insulin regular-human 100 units/1 mL 10 UNIT IVP (20:43)
[2023-05-13] MEDS: calcium gluconate 0.1 gm/mL 10% SDV 10mL 1 GM IVP (20:43)
[2023-05-13] MEDS: dextrose 50% syringe 50 mL IVP (20:43)
[2023-05-13 20:47] LABS: Magnesium 3.4 mg/dL (1.7-2.3)
[2023-05-13] MEDS: sodium chloride 0.9% 500 ML 999 ML IV (20:51)
[2023-05-13 20:57] LABS: NT Pro B Type Natriuretic Pept 3518 pg/mL (0-125)
--- NOTE | 2023-05-13 21:00 | P.HP_ITS ---
Providers/Chief Complaint 2 Primary Care Provider: Brant Barahona Chief Complaint: abd pain History of Present Illness Geronimo Barahona is a 62 year old male who has history of A-fib, CHF, diabetes, lower extremity swelling, lymphedema, sacral ulcer, cellulitis of lower extremities, was admitted 2 months ago for acute on chronic kidney disease, A- fib with slow ventricular response, on last admission he was given fluids that improved his kidney function at discharge creatinine was 1.64 cellulitis he was given doxycycline, presenting for chief complaint of worsening of back pain, patient is stating that he fell on 12th and since then he has been experiencing significant back pain, he does not walk independently, he mostly stays in a chair, he was extremely weak and lethargic stating that he is not making much urine his last dose of Eliquis was around noon today In the ER he was diagnosed with wide QRS, T wave changes and PVCs QTc prolongation related to hyperkalemia Patient is hypervolemic, acidotic, hyponatremic Creatinine is extremely high patient is stating that he makes very little amount of urine Patient is agreeable for dialysis if needed He is being transferred to ICU Spoke with the loom stop checker who agreed with temporary dialysis catheter placement because of his significant changes on EKG with hyperkalemia acidosis and hyperkalemia, Spoke with Dr. Jacobson who is on his way to put a dialysis catheter Patient is being transferred from ER to the ICU Spoke with the ER physician Patient received calcium gluconate, insulin, dextrose 50, albuterol Once dialysis catheter has been placed Dr. Curry is planning for first session of dialysis tonight Please note on previous admission patient was discharged on EpiPen Zyrtec and prednisone because there was some concern of allergic reaction to a drug, drug has not been identified, patient was getting Augmentin and Levaquin which was stopped along with vancomycin he was discharged on doxycycline Patient is showing signs of sepsis with hypothermia, leukocytosis, high lactic acidemia, he does have sacral ulcer, lower extremity cellulitis,. We cannot give him 30 mill per kilo fluids because of his active acute on chronic renal failure patient is hypervolemic Review of Systems 2 Const: Reports: chills, body aches, change in weight, fatigue and diaphoresis ENMT: Denies: throat pain Card: Reports: swelling of feet/ankles; Denies: chest pain Resp: Reports: dyspnea GI: Reports: nausea : Denies: flank pain Musc: Reports: back pain Skin/Breast: Reports: rash, pruritus, erythema, skin tenderness and changing lesions Neuro: Denies: headache(s) Psych: Reports: anxiety Medications/Allergies Home Medications Medication Instructions Recorded Confirmed Last Taken Type albuterol sulfate 2.5 mg/3 mL 2.5 mg inhalation Q4H PRN 10/03/22 03/11/23 Unknown History (0.083 %) solution for nebulization Shortness Of Breath amiodarone 200 mg tablet 200 mg PO DAILY 10/03/22 03/11/23 Unknown History empagliflozin 25 mg tablet 25 mg PO DAILY 10/03/22 03/11/23 Unknown History (Jardiance) nystatin 100,000 unit/gram topical 1 applic topical BID #30 grams 10/05/22 03/11/23 Unknown Rx powder apixaban 5 mg tablet (Eliquis) 5 mg PO BID 03/11/23 03/11/23 Unknown History gabapentin 100 mg capsule 100 mg PO TID 03/11/23 03/11/23 Unknown History insulin aspart U-100 100 unit/mL See Rx Instructions .Route .COMPLEX 03/11/23 03/11/23 Unknown History (3 mL) subcutaneous pen (Novolog FlexPen U-100 Insulin aspart) silver sulfadiazine 1 % topical 1 applic topical DAILY 03/11/23 03/11/23 Unknown History cream (SSD) epinephrine 0.3 mg/0.3 mL 0.3 mg (0.3 mL) IM Q10M PRN 03/17/23 Unknown Rx injection, auto-injector anaphylaxis #2 ea glipizide 10 mg tablet 5 mg (1/2 x 10 mg) PO BID 30 days 03/17/23 03/11/23 Unknown Rx #30 tabs insulin detemir U-100 100 unit/mL 10 unit (0.1 mL) SUBCUT DAILY #15 03/17/23 03/11/23 Unknown Rx (3 mL) subcutaneous pen (Levemir mL FlexPen) metoprolol tartrate 50 mg tablet 25 mg (1/2 x 50 mg) PO BID 30 days 03/17/23 03/11/23 Unknown Rx #15 tabs cyclobenzaprine 10 mg tablet 10 mg PO Q8H #14 tabs 05/07/23 Unknown Rx hydrocodone 10 mg-acetaminophen 1 tab PO Q6H PRN pain #14 tabs 05/07/23 Unknown Rx 325 mg tablet Allergies Allergy/AdvReac Type Severity Reaction Status Date / Time amoxicillin [From Augmentin] Allergy Mild rash Verified 05/13/23 19:28 clavulanic acid Allergy Mild rash Verified 05/13/23 19:28 [From Augmentin] levofloxacin Allergy Mild rash Verified 05/13/23 19:28 PFSH Acute 2 PFSH: Medical History Bilateral lower leg cellulitis Metabolic acidosis Hyponatremia Hyperkalemia DKA (diabetic ketoacidosis) Falls Generalized weakness FRANCISCO (acute kidney injury) CHF (congestive heart failure) DM2 (diabetes mellitus, type 2) Chronic respiratory failure with hypoxia COPD (chronic obstructive pulmonary disease) Social History Smoking and tobacco/nicotine status: former use of tobacco/nicotine Vitals/I&O/Wt Last Vital Signs Temp 93.6 F L 05/13/23 19:11 Pulse 123 H 05/13/23 20:46 Resp 30 H 05/13/23 20:46 BP 114/35 05/13/23 20:28 Pulse Ox 98 05/13/23 20:46 O2 Del Method Nasal Cannula 05/13/23 20:46 O2 Flow Rate 4 05/13/23 20:46 Weight last 48 hrs Weight 149.685 kg Physical Exam 2 Narrative: Unkept appearance Morbidly obese Hypervolemic GCS 15 Nonfocal neuroexam Multiple skin ulcers Sacral area ulcer stage I present on admission Skin sloughed off on extremities bilaterally With edema Venous stasis dermatitis Abdomen distended nontender afib with PVCs, wide QRS Data 05/13/23 19:40 05/13/23 19:40 Micro: Microbiology 05/13/23 20:18 Blood Culture - Preliminary Blood SPECIMEN COLLECTED 05/13/23 19:40 Blood Culture - Preliminary Blood SPECIMEN COLLECTED A&P Assessment and plan (1) Sepsis: (2) Cellulitis and abscess of foot: (3) CHF (congestive heart failure): (4) Afib: (5) Back pain: Qualifiers: Back pain laterality: bilateral Back pain location: low back pain C hronicity: acute Sciatica presence: without sciatica Qualified Code(s): M54.50 - Low back pain, unspecified (6) Accidental fall: Qualifiers: Encounter type: initial encounter Qualified Code(s): W19.XXXA - Unspecified fall, initial encounter (7) Compression fracture of L2 lumbar vertebra: Qualifiers: Encounter type: initial encounter Qualified Code(s): S32.020A - Wedge compression fracture of second lumbar vertebra, initial encounter for closed fracture (8) Closed compression fracture of L4 vertebra: Qualifiers: Encounter type: initial encounter Qualified Code(s): S32.040A - Wedge compression fracture of fourth lumbar vertebra, initial encounter for closed fracture (9) Chronic respiratory failure with hypoxia: (10) Anasarca: (11) Metabolic acidemia: (12) Wide QRS ventricular tachycardia: (13) Prolonged QT interval: Plan Sepsis Related to cellulitis Sacral ulcer present on admission Skin sloughed off lower extremities Criteria met with tachypnea tachycardia leukocytosis high lactic acid endorgan damage Patient not a candidate for septic bolus because he is fluid overloaded and acute renal failure requiring dialysis I am afraid giving septic bolus considering his weight will be way too high that can jeopardize his respiratory status needing intubation in the ICU Start patient on linezolid and aztreonam considering penicillin allergy and vancomycin rash during previous visit Requested blood cultures Lactic acid to be repeated Anasarca Component of congestive heart failure and acute on chronic kidney failure Most likely will need dialysis within few hours Acute on chronic kidney disease Worsening creatinine, patient acidotic, hyperkalemic, creatinine 9, patient not making enough urine Fuentes catheter to be placed Nephro consulted Spoke with , Spoke with Dr. Jacobson to place dialysis catheter Hyperkalemia with prolonged QTc, wide QRS, patient has been given calcium gluconate along insulin, dextrose, Patient will need bicarb Repeat BMP within an hour A-fib without RVR Continue amiodarone and metoprolol patient was bradycardic during last visit Toprol dose was reduced Hold Eliquis for now Last dose was around noon today DVT prophylaxis: SCDs for now patient will need dialysis catheter Renal diet Back pain related to compression fracture L2 L4 Will keep him on opioids along bowel regimen Type II diabetic insulin sliding scale Hypervolemia with hyponatremia guarded prognosis, patient is high risk for further deterioration Full code Attestations 2 Medical Necessity Statement*: Admit to ICU patient is at high risk of mortality and morbidity, it took a lot of time to coordinate care speak with 3 physicians Coding Level of Care Code Critical Care >/= 30 minutes Critical care time (in minutes): 90 The high probability of a clinically significant, sudden or life threatening deterioration, as referenced in this documentation, required my full and direct attention, intervention and personal management. The critical care time shown is in addition to time spent performing any reported separately billable procedures and includes the following: [x] Data and vital sign review and interpretation [x ] Patient assessment, examination and intervention [x] Medication orders and management [x] Patient/Family updates as able [x] Care Coordination and Documentation. Diagnoses Sepsis A41.9 Cellulitis and abscess of foot L03.119; L02.619 CHF (congestive heart failure) I50.9 Afib I48.91 Back pain M54.50 Back pain laterality: bilateral Back pain location: low back pain Chronicity: acute Sciatica presence: without sciatica Accidental fall W19.XXXA Encounter type: initial encounter Compression fracture of L2 lumbar vertebra S32.020A Encounter type: initial encounter Closed compression fracture of L4 vertebra S32.040A Encounter type: initial encounter Chronic respiratory failure with hypoxia J96.11 Anasarca R60.1 Metabolic acidemia E87.20 Wide QRS ventricular tachycardia I47.20 Prolonged QT interval R94.31
--- NOTE | 2023-05-13 21:28 | XRR_ITS ---
PROCEDURE INFORMATION: Exam: XR Chest Exam date and time: 05/13/2023 11:00 PM Age: 62 years old Clinical indication: Device placement; Other: Dialysis catheter placement; Additional info: SOB dialysis catheter placement TECHNIQUE: Imaging protocol: Radiologic exam of the chest. Views: 1 view. COMPARISON: CR XR chest 1V portable [id number] 03/11/2023 12:40 PM FINDINGS: Tubes, catheters and devices: Right IJ central venous catheter in place, with tip near the cavoatrial junction. Lungs: Diffuse hazy bilateral infiltrates. Pleural spaces: No pneumothorax. No obvious pleural effusion. Heart/Mediastinum: Stable cardiomegaly. Bones/joints: No acute osseous abnormality. XR/XR chest 1V portable [id number] IMPRESSION: 1. Right IJ central venous catheter in place, with tip near the cavoatrial junction. 2. No pneumothorax. 3. Diffuse hazy bilateral infiltrates. Suspect pulmonary edema.
--- NOTE | 2023-05-13 21:30 | P.CONIM_ITS ---
Providers/Reason For Consult 2 Consulting Physician/Specialty*: [facility]/Nephrology Reason for Consult*: Acute on chronic kidney disease Attending Physician: Erick Rodriguez MD Primary Care Provider: Brant Barahona History of Present Illness History of Present Illness Geronimo Barahona is a 62 year old male With past medical history of atrial fibrillation, diabetes, hypertension, congestive cardiac failure, lymphedema bilateral lower extremities, chronic kidney disease with a baseline creatinine in the mid 1 range now presented to the hospital due to back pain. He also complained of decreased p.o. intake and decreased urine output the last few days. Also noted to have lower GI bleed. In the emergency department lab data was significant for potassium of 7.7, sodium 121, bicarbonate was 5, BUN of 110 and creatinine of 9.1.. Fuentes catheter was placed in the ED with only 50 cc of urine. Chest x-ray and renal ultrasound are currently pending. Patient has EKG changes with hyperkalemia including widened QRS and QT prolongation. He is currently admitted to the ICU. . Medications/Allergies Home Medications Medication Instructions Recorded Confirmed Last Taken Type albuterol sulfate 2.5 mg/3 mL 2.5 mg inhalation Q4H PRN 10/03/22 03/11/23 Unknown History (0.083 %) solution for nebulization Shortness Of Breath amiodarone 200 mg tablet 200 mg PO DAILY 10/03/22 03/11/23 Unknown History empagliflozin 25 mg tablet 25 mg PO DAILY 10/03/22 03/11/23 Unknown History (Jardiance) nystatin 100,000 unit/gram topical 1 applic topical BID #30 grams 10/05/22 03/11/23 Unknown Rx powder apixaban 5 mg tablet (Eliquis) 5 mg PO BID 03/11/23 03/11/23 Unknown History gabapentin 100 mg capsule 100 mg PO TID 03/11/23 03/11/23 Unknown History insulin aspart U-100 100 unit/mL See Rx Instructions .Route .COMPLEX 03/11/23 03/11/23 Unknown History (3 mL) subcutaneous pen (Novolog FlexPen U-100 Insulin aspart) silver sulfadiazine 1 % topical 1 applic topical DAILY 03/11/23 03/11/23 Unknown History cream (SSD) epinephrine 0.3 mg/0.3 mL 0.3 mg (0.3 mL) IM Q10M PRN 03/17/23 Unknown Rx injection, auto-injector anaphylaxis #2 ea glipizide 10 mg tablet 5 mg (1/2 x 10 mg) PO BID 30 days 03/17/23 03/11/23 Unknown Rx #30 tabs insulin detemir U-100 100 unit/mL 10 unit (0.1 mL) SUBCUT DAILY #15 03/17/23 03/11/23 Unknown Rx (3 mL) subcutaneous pen (Levemir mL FlexPen) metoprolol tartrate 50 mg tablet 25 mg (1/2 x 50 mg) PO BID 30 days 03/17/23 03/11/23 Unknown Rx #15 tabs cyclobenzaprine 10 mg tablet 10 mg PO Q8H #14 tabs 05/07/23 Unknown Rx hydrocodone 10 mg-acetaminophen 1 tab PO Q6H PRN pain #14 tabs 05/07/23 Unknown Rx 325 mg tablet Allergies Allergy/AdvReac Type Severity Reaction Status Date / Time amoxicillin [From Augmentin] Allergy Mild rash Verified 05/13/23 19:28 clavulanic acid Allergy Mild rash Verified 05/13/23 19:28 [From Augmentin] levofloxacin Allergy Mild rash Verified 05/13/23 19:28 PFSH Acute 2 PFSH: Medical History Bilateral lower leg cellulitis Metabolic acidosis Hyponatremia Hyperkalemia DKA (diabetic ketoacidosis) Falls Generalized weakness FRANCISCO (acute kidney injury) CHF (congestive heart failure) DM2 (diabetes mellitus, type 2) Chronic respiratory failure with hypoxia COPD (chronic obstructive pulmonary disease) Social History Smoking and tobacco/nicotine status: former use of tobacco/nicotine Vitals/I&O/Wt Last Vital Signs Temp 93.6 F L 05/13/23 19:11 Pulse 123 H 05/13/23 20:46 Resp 30 H 05/13/23 20:46 BP 114/35 05/13/23 20:28 Pulse Ox 98 05/13/23 20:46 O2 Del Method Nasal Cannula 05/13/23 20:46 O2 Flow Rate 4 05/13/23 20:46 Weight last 48 hrs Weight 149.685 kg Physical Exam 2 Urinary Catheter Management: Fuentes: Cath Placed During This Visit: yes Urinary Catheter Date of Insertion: 05/13/23 Urinary Catheter Time of Insertion: 19:56 Data 05/13/23 19:40 05/13/23 19:40 Micro: Microbiology 05/13/23 20:18 Blood Culture - Preliminary Blood SPECIMEN COLLECTED 05/13/23 19:40 Blood Culture - Preliminary Blood SPECIMEN COLLECTED A&P Assessment and plan (1) Acute kidney failure: Plan 1. Acute on chronic kidney disease stage III: Baseline creatinine mid 1 range, now has a creatinine of 9 with severe hyperkalemia, metabolic acidosis and volume overload. Anuric. -Plan for temporary HD catheter placement and urgent HD -Repeat BMP postdialysis -Await renal ultrasound 2. Hyperkalemia: Status post med management, HD as above 3. Severe metabolic acidosis: Secondary to severe FRANCISCO, should improve after HD 4. History of atrial fibrillation 5. History of CHF, echo from February 2023 reviewed, EF of 65% 6. Lower GI bleeding Patient evaluated using audiovisual cart. Time spent 40 minutes Coding Level of Care Code Acute Code for Chg Fwd Diagnoses Acute kidney failure N17.9
[2023-05-13] MEDS: fentaNYL 50 mcg/mL INJ 2mL IVP ×2 (21:31→21:46)
[2023-05-13 21:37] LABS: Reflex Lactate Order REFLEX LACTIC ORDERD
[2023-05-13 21:45] LABS: Urine Appearance Cloudy (CLEAR); Urine Color Yellow (Yellow)
[2023-05-13 21:46] LABS: Add Urine Microscopic? YES; Bilirubin Urine 1+ (Negative); Blood Urine 3+ (Negative); Glucose Urine UA Trace (Normal); Ketones Urine 1+ (Negative); Leukocyte Esterase Urine 2+ (Negative); Nitrate Urine Negative (Negative); Protein Urine 1+ (Negative); Specific Gravity, Urine 1.025 (1.005-1.030); Urobilinogen Urine Norm (Negative); pH Urine 5 (5-7)
[2023-05-13 21:47] LABS: Add Urine Culture? Yes; Bacteria Urine TRACE /hpf; RBC Urine 50-80 /hpf (0-2); WBC Urine 55-80 /hpf (0-5)
[2023-05-13 21:51] LABS: Procalcitonin 1.74 ng/mL (0-0.5)
--- NOTE | 2023-05-13 22:00 | PM.DIACAT ---
Procedure Note: Date of procedure: 05/13/23 Pre-op diagnosis: Acute renal failure Post-op diagnosis: same Procedure Performed: IJ dialysis catheter Anesthesia: other (1% lidocaine was used as local.) Surgeon: Gaurav Jacobson Estimated blood loss (mL): 5 Pathology: none sent Condition: critical Disposition: ICU Other Information: The patient's right neck was prepped and draped in usual sterile fashion. The ultrasound probe was covered with a sterile cover. Sterile ultrasound gel had been placed in the cover prior. Gel was placed in the patient's neck. The patient's head was turned to the left. The internal jugular vein was easily seen. The carotid artery was also seen. 1% lidocaine with out epinephrine was used anesthetize the skin. Then using the introducer needle the internal jugular vein was easily seen and located. I was able to easily aspirate blood from the vein. The syringe was removed. Now the guidewire was threaded through the needle down the IJ. The needle was now removed. An incision was made in the skin along the guidewire. Now using the large dilator the tract was dilated up. The dilator was now removed leaving the guidewire in place and then the dialysis catheter was easily threaded into the right internal jugular vein. The guidewire was now removed. Both ports were aspirated and flushed without difficulty. Chest x-ray is pending. The patient tolerated the procedure well. Coding Level of Care Code Acute Code for Chg Fwd
--- NOTE | 2023-05-13 22:07 | PM.CONSULT ---
Providers/Reason For Consult Consulting Physician/Specialty*: Hospitalist Reason for Consult*: Dialysis catheter placement Attending Physician: Erick Rodriguez MD Primary Care Provider: Brant Jun History of Present Illness History of Present Illness Greonimo Barahona is a 62 year old male who presents to the emergency room with shortness of breath. The patient is found to have acute renal failure. The patient potassium is 7. I was called by the hospitalist to place an emergency dialysis catheter. This patient fell approximate 1 week ago. The patient was diagnosed with some back fractures. The patient is in a modest amount of pain just lying in bed. Patient complaining of back spasm. I have given the patient some fentanyl. The patient's blood pressure is relatively soft. Therefore I do not want to give the patient too much fentanyl at this time. Review of Systems General: Reports: ROS unobtainable due to mental status Medications/Allergies Home Medications Medication Instructions Recorded Confirmed Last Taken Type albuterol sulfate 2.5 mg/3 mL 2.5 mg inhalation Q4H PRN 10/03/22 03/11/23 Unknown History (0.083 %) solution for nebulization Shortness Of Breath amiodarone 200 mg tablet 200 mg PO DAILY 10/03/22 03/11/23 Unknown History empagliflozin 25 mg tablet 25 mg PO DAILY 10/03/22 03/11/23 Unknown History (Jardiance) nystatin 100,000 unit/gram topical 1 applic topical BID #30 grams 10/05/22 03/11/23 Unknown Rx powder apixaban 5 mg tablet (Eliquis) 5 mg PO BID 03/11/23 03/11/23 Unknown History gabapentin 100 mg capsule 100 mg PO TID 03/11/23 03/11/23 Unknown History insulin aspart U-100 100 unit/mL See Rx Instructions .Route .COMPLEX 03/11/23 03/11/23 Unknown History (3 mL) subcutaneous pen (Novolog FlexPen U-100 Insulin aspart) silver sulfadiazine 1 % topical 1 applic topical DAILY 03/11/23 03/11/23 Unknown History cream (SSD) epinephrine 0.3 mg/0.3 mL 0.3 mg (0.3 mL) IM Q10M PRN 03/17/23 Unknown Rx injection, auto-injector anaphylaxis #2 ea glipizide 10 mg tablet 5 mg (1/2 x 10 mg) PO BID 30 days 03/17/23 03/11/23 Unknown Rx #30 tabs insulin detemir U-100 100 unit/mL 10 unit (0.1 mL) SUBCUT DAILY #15 03/17/23 03/11/23 Unknown Rx (3 mL) subcutaneous pen (Levemir mL FlexPen) metoprolol tartrate 50 mg tablet 25 mg (1/2 x 50 mg) PO BID 30 days 03/17/23 03/11/23 Unknown Rx #15 tabs cyclobenzaprine 10 mg tablet 10 mg PO Q8H #14 tabs 05/07/23 Unknown Rx hydrocodone 10 mg-acetaminophen 1 tab PO Q6H PRN pain #14 tabs 05/07/23 Unknown Rx 325 mg tablet Allergies Allergy/AdvReac Type Severity Reaction Status Date / Time amoxicillin [From Augmentin] Allergy Mild rash Verified 05/13/23 19:28 clavulanic acid Allergy Mild rash Verified 05/13/23 19:28 [From Augmentin] levofloxacin Allergy Mild rash Verified 05/13/23 19:28 PFSH Acute PFSH: Medical History Bilateral lower leg cellulitis Metabolic acidosis Hyponatremia Hyperkalemia DKA (diabetic ketoacidosis) Falls Generalized weakness FRANCISCO (acute kidney injury) CHF (congestive heart failure) DM2 (diabetes mellitus, type 2) Chronic respiratory failure with hypoxia COPD (chronic obstructive pulmonary disease) Social History Smoking and tobacco/nicotine status: former use of tobacco/nicotine Vitals/I&O/Wt Last Vital Signs Temp 93.6 F L 05/13/23 19:11 Pulse 123 H 05/13/23 20:46 Resp 30 H 05/13/23 20:46 BP 114/35 05/13/23 20:28 Pulse Ox 98 05/13/23 20:46 O2 Del Method Nasal Cannula 05/13/23 20:46 O2 Flow Rate 4 05/13/23 20:46 Weight last 48 hrs Weight 330 lb Physical Exam Narrative: General: The patient is in moderate distress secondary to back pain and shortness of breath Lungs: Patient has bilateral crackles throughout. Heart: Tachycardic rate and rhythm with 2/6 to 3/6 systolic ejection murmur. I do not appreciate an S3 or S4. Abdomen: Morbidly obese. Nontender to palpation. I do not appreciate any hernias. I do not see any surgical scars. Patient has normal active bowel sounds. Pelvis: Stable to AP medial compression Extremities: The patient has what appears to be fragile skin he has got bruising on both forearms. I do not see any evidence of fracture. I will see any clubbing cyanosis. The patient has edema of his lower extremities. Neurologic: The patient awake, alert, somewhat short of breath. He seems to be oriented x 3. The patient's [place] Coma Scale is 15. Patient moves all 4 extremities without difficulty. Urinary Catheter Management: Fuentes: Cath Placed During This Visit: yes Urinary Catheter Date of Insertion: 05/13/23 Urinary Catheter Time of Insertion: 19:56 Data 05/13/23 19:40 05/13/23 19:40 Micro: Microbiology 05/13/23 20:18 Blood Culture - Preliminary Blood SPECIMEN COLLECTED 05/13/23 19:40 Blood Culture - Preliminary Blood SPECIMEN COLLECTED A&P Assessment and plan (1) Acute kidney failure: The hospitalist is managing this patient's acute renal failure. Hospitalist is doing this in conjunction with the electric refrigerator preparer. I was asked to place a dialysis catheter. The dialysis catheter was placed without difficulty. Please see my procedure note. Chest x-ray is pending. Please reconsult for questions or concerns. Coding Level of Care Code 34934 Diagnoses Acute kidney failure N17.9
[2023-05-13] MEDS: sodium bicarbonate 8.4% 1 mEq/mL 50mL Syr 100 MEQ IVP (22:17)
--- NOTE | 2023-05-13 22:25 | CTR_ITS ---
PROCEDURE INFORMATION: Exam: CT Abdomen And Pelvis Without Contrast Exam date and time: 05/13/2023 10:47 PM Age: 62 years old Clinical indication: Other: Suspected gi bleed TECHNIQUE: Imaging protocol: Computed tomography of the abdomen and pelvis without contrast. Radiation optimization: All CT scans at this facility use at least one of these dose optimization techniques: automated exposure control; mA and/or kV adjustment per patient size (includes targeted exams where dose is matched to clinical indication); or iterative reconstruction. REPORTING DATA: Count of CT and Cardiac NM exams in prior 12 months: This patient has received 7 known CTs and 0 known cardiac nuclear medicine studies in the 12 months prior to the current study. COMPARISON: 1. CT kidney stone 03/11/2023 1:[address] lumbar spine wo con* 05/07/2023 1:19 AM RADIATION DOSE METRICS: Total DLP (mGy-cm): 1264.96 FINDINGS: Lungs: Minor left basilar atelectasis or scarring. Heart: Mild cardiomegaly. No pericardial effusion. Prominent mitral valve annular calcifications. Liver: Tiny calcified granuloma in the liver. Otherwise unremarkable. Gallbladder and bile ducts: Cholelithiasis. No evidence of acute cholecystitis or biliary dilatation. Pancreas: Normal pancreas. No ductal dilation. Spleen: Tiny calcified granulomas in the spleen. No splenomegaly. Adrenal glands: Adrenal glands are normal. Kidneys and ureters: Normal kidneys. No hydronephrosis. No calculus. Stomach and bowel: Mild colonic diverticulosis without definite evidence of diverticulitis. No bowel wall thickening. No evidence of bowel obstruction. Appendix: Appendix not seen. No definite evidence of appendicitis. Intraperitoneal space: No free fluid or free air. Vasculature: Scattered atherosclerotic calcifications. No abdominal aortic aneurysm. Lymph nodes: No adenopathy. Urinary bladder: Urinary bladder is decompressed, limiting evaluation. No obvious bladder abnormality. Reproductive: Unremarkable as visualized. Bones/joints: Stable mild L2 compression fracture. New mild L3 compression fracture, not seen on 05/07/2023. Slight progression in height loss of moderate L4 compression fracture since 05/07/2023. Soft tissues: Small fat containing umbilical and bilateral inguinal hernias. CT/CT abdomen pelvis wo con [id number] IMPRESSION: 1. No acute bowel abnormality identified. 2. Mild colonic diverticulosis without definite evidence of diverticulitis. 3. Stable mild L2 compression fracture. 4. New mild L3 compression fracture, not seen on 05/07/2023. 5. Slight progression in height loss of moderate L4 compression fracture since 05/07/2023. 6. Cholelithiasis. No evidence of acute cholecystitis or biliary dilatation. 7. Small fat containing umbilical and bilateral inguinal hernias.
[2023-05-13 22:31] LABS: Anion Gap 36.1 (5-19); Calcium 8.7 mg/dL (8.5-10.5); Chloride 89 mmol/L (98-107); Glucose 217 mg/dL (65-115); Osmolality Calculated 298 mOsm/kg (285-295); Sodium 123 mmol/L (136-145)
[2023-05-13 22:32] LABS: Lactic Acid level (Lactate) 1.7 mmol/L (0.5-2.2)
[2023-05-13 22:36] LABS: Blood Urea Nitrogen 112 mg/dL (8-23); Carbon Dioxide 5 mmol/L (22-29); Potassium 7.1 mmol/L (3.5-5.1)
[2023-05-13 22:57] LABS: Hepatitis B Surface AB < 3.5 (11.5-1000); Hepatitis B Surface Antigen Non-Reactive (Nonreactive)
[2023-05-13] MEDS: oxyCODONE-APAP 5-325 mg Tablet 1 TAB PO (23:05)
[2023-05-14] VITALS (275 sets, daily range): BP systolic 58–155; BP diastolic 41–85; PULSE 70–108; RESP 8–29; TEMP 35.4–36.9; O2SAT 57–100
--- NOTE | 2023-05-14 00:25 | PC.NURSE ---
Addendum entered by Brady Hui RN 05/14/23 00:27: Dialysis catheter would not work per Dialysis nurse. Called warehouse picker and night time hospitalist, who both both referred me to call Dr. Jacobson . Original Note: Dialysis catheter would not work per Dialysis nurse. Called warehouse picker and night time hospitalist, who both both referred me to Dr. Jacobson .
[2023-05-14] MEDS: fentaNYL 50 mcg/mL INJ 2mL 100 MCG IVP (00:59)
--- NOTE | 2023-05-14 01:11 | XRR_ITS ---
PROCEDURE INFORMATION: Exam: XR Chest Exam date and time: 05/14/2023 2:54 AM Age: 62 years old Clinical indication: Device placement; Other: Dialysis catheter placement TECHNIQUE: Imaging protocol: Radiologic exam of the chest. Views: 1 view. COMPARISON: CR (CHEST, ) 05/13/2023 11:00 PM FINDINGS: Limitations: Evaluation limited by patient body habitus and by several overlying external electrodes. Tubes, catheters and devices: A right-sided central venous catheter is present, possibly entering through the subclavian vein. The tip projects over the superior vena cava, near the cavoatrial junction. Lungs: Mild interval improvement in hazy bilateral pulmonary opacities, possibly related to edema. Pleural spaces: No obvious pneumothorax or pleural effusion. Heart/Mediastinum: Cardiomediastinal silhouette is stable. Bones/joints: No acute osseous abnormality. XR/XR chest 1V portable [id number] IMPRESSION: 1. Evaluation limited by patient body habitus and by several overlying external electrodes. 2. A right-sided central venous catheter is present, possibly entering through the subclavian vein. The tip projects over the superior vena cava, near the cavoatrial junction. 3. Mild interval improvement in hazy bilateral pulmonary opacities, possibly related to edema.
--- NOTE | 2023-05-14 01:24 | PM.DIACAT ---
Procedure Note: Date of procedure: 05/14/23 Pre-op diagnosis: Acute renal failure Post-op diagnosis: same Procedure Performed: subclavian dialysis catheter Anesthesia: other (1% lidocaine without epinephrine) Surgeon: Gaurav Jacobson Estimated blood loss (mL): 5 Pathology: none sent Condition: critical Disposition: ICU Other Information: For some reason the internal jugular catheter which I had placed a couple of hours ago did not have the flow rates necessary for dialysis. I removed the dressing. I took out the stitches. I removed the catheter. I held pressure for approximately 5 minutes. And placed a sterile dressing. The patient's right subclavian area was prepped and draped in usual sterile fashion. Following this 1% lidocaine without epinephrine was used to anesthetize the skin. Using the introducer needle the subclavian vein was easily located. We had excellent flow of blood into the syringe. The syringe was removed leaving the needle in place. The guidewire was now placed through this needle. It was advanced at 35 cm. The needle was now removed. Using a skin knife an incision was made along the guidewire into the skin. Now using the large dilator the dilator was slid over the guidewire several times in order to dilate up the subcutaneous tract. The dilator was now removed and the dialysis catheter was slid over the guidewire into place. The guidewire was now removed. Leaving the catheter in place. Both ports aspirated easily and flushed easily. The catheter was sutured into place. Caps were placed over the end of the dialysis catheter. Sterile dressing was applied. Chest x-ray is pending. Coding Level of Care Code Acute Code for Chg Fwd
[2023-05-14 01:34] LABS: Hematocrit 39.2 % (37-53)
--- NOTE | 2023-05-14 02:29 | PC.HD ---
Upon initiation of treatment, patient's temporary right IJ HD catheter caused dialysis machine pressures to alarm constantly. This RN attempted flushing ports vigorously, reversing lines, and lowering blood flow rate to no avail. Treatment was paused. Patient was removed from circuit. Surgeon returned and placed another temporary dialysis catheter. Machine was set up anew and treatment was reinitiated. Currently treatment is commencing. However, machine venous pressures are extremely close to the upper limits of acceptable pressures. Attempt was made again to reverse lines which cause instant machine alarms. Lines were un-reversed and circuit was flushed with NSS. Blood pump speed lowered to 300. Venous pressures were 290, which is the highest acceptable pressure. Blood pump speed lowered again to 275 (250 is the lowest acceptable speed). Venous pressures are currently 270-280.
[2023-05-14] MEDS: oxyCODONE-APAP 5-325 mg Tablet 1 TAB PO ×3 (03:08→11:21)
[2023-05-14] MEDS: norepinephrine 4 MG/250 ML BAG 7.5 MG IV (03:33)
[2023-05-14] MEDS: aztreonam 1,000 MG in sodium chloride 0.9% (plus) 50 ML 100 MG IV ×3 (05:01→21:28)
[2023-05-14] MEDS: linezolid premix 600 MG/300 ML PREMIX 300 MG IV ×3 (05:02→21:29)
--- NOTE | 2023-05-14 05:14 | PC.HD ---
Second catheter minimally functional. Unable to run treatment at prescribed blood flow rate. Circuit clotted, lines restrung. Fluid intake 1150; output 781. Box Printer aware of issues with catheter.
[2023-05-14] MEDS: heparin, porcine 1,000 unit/mL INJ 10 mL 10000 UNIT INTRACATH (05:16)
[2023-05-14 06:13] LABS: Basophils % 0.2 %; Eosinophils % 0.1 %; Hematocrit 40.8 % (37-53); Lymphocytes # 0.1 10^3/uL (0.8-4.8); Lymphocytes % 0.8 %; Mean Corpuscular HGB Conc 32.8 g/dL (30-55); Mean Corpuscular Hemoglobin 30.2 pg (27-33); Mean Corpuscular Volume 91.9 fl (82-101); Mean Platelet Volume 9.2 fL (7.4-10.4); Monocytes # 1.2 10^3/uL (0.2-0.9); Monocytes % 6.8 %; Neutrophils # 15.98 10^3/uL (1.8-7.7); Neutrophils % 91.5 %; Nucleated Red Blood Cells % 0 %; Platelet Count 272 10^3/cmm (157-399); Red Blood Count 4.44 10^6/uL (3.85-5.65); Red Cell Distribution Width 16.9 % (12.1-15.1); White Blood Count 17.48 10^3/uL (3.29-11.43)
[2023-05-14 06:29] LABS: Anion Gap 33.4 (5-19); Blood Urea Nitrogen 67 mg/dL (8-23); C Reactive Protein 179.5 mg/L (0.0-4.9); Calcium 8.4 mg/dL (8.5-10.5); Carbon Dioxide 15 mmol/L (22-29); Chloride 88 mmol/L (98-107); Glomerular Filtration Rate 9.5 mL/min (90-130); Glucose 143 mg/dL (65-115); Magnesium 2.5 mg/dL (1.7-2.3); Osmolality Calculated 294 mOsm/kg (285-295); Potassium 5.4 mmol/L (3.5-5.1); Sodium 131 mmol/L (136-145)
[2023-05-14 06:31] LABS: Phosphorus 8.5 mg/dL (2.5-4.5)
[2023-05-14 07:48] LABS: Glucose Point of Care 174 mg/dL (70-110)
[2023-05-14] MEDS: metoprolol tartrate 25 mg Tablet PO ×2 (08:30→17:35)
[2023-05-14] MEDS: amiodarone 200 mg Tablet PO (08:30)
[2023-05-14] MEDS: sennosides-docusate Tablet 1 TAB PO (08:30)
[2023-05-14] MEDS: gabapentin 100 mg Capsule PO ×2 (08:30→21:28)
[2023-05-14] MEDS: insulin lispro 100 unit/1 mL SUBCUT ×3 (08:30→17:35)
--- NOTE | 2023-05-14 08:58 | PC.PHAR ---
is unavailable to go over med list so we contacted [facility] for verification. 05/14/23
[2023-05-14 09:12] LABS: Creatine Phosphokinase 70 U/L (39-308)
[2023-05-14 12:16] LABS: Glucose Point of Care 209 mg/dL (70-110)
[2023-05-14] MEDS: HYDROmorphone 1 mg/mL INJ 1 mL 0.2 MG IVP ×4 (12:25→21:35)
--- NOTE | 2023-05-14 13:05 | P.PN_ITS ---
Subjective 2 Subjective: diffuse pain, especially back, tremors + N/V Vitals/I&O/Wt Last Vital Signs Temp 98.3 F 05/14/23 05:46 Pulse 90 05/14/23 12:10 Resp 17 05/14/23 12:10 BP 110/53 05/14/23 12:10 Pulse Ox 92 05/14/23 12:00 O2 Del Method Nasal Cannula 05/14/23 09:38 O2 Flow Rate 2 05/14/23 09:38 05/13/23 05/14/23 05/14/23 22:59 06:59 14:59 Intake Total 500 / 500 1507.875 / 2007.875 830 / 830 Output Total 781 / 781 Balance 500 / 500 726.875 / 1226.875 830 / 830 urine output today 350 ml/12h Weight last 48 hrs Weight 119.295 kg Weight 119.5 kg Weight 119.748 kg Weight 149.685 kg Physical Exam 2 Urinary Catheter Management: Fuentes: Cath Placed During This Visit: yes Reason for Continuing Indwelling Catheter: Accurate Measurement of Urinary Output in Critically Ill Patients Urinary Catheter Date of Insertion: 05/13/23 Urinary Catheter Time of Insertion: 19:56 Data 05/14/23 05:50 05/14/23 05:50 Other Labs: calcium 8.4, phos 8.5, Mg, 2.5, CK 70, albumin 3.5 urine sodium < 10, + pyuria, hematuria Micro: Microbiology 05/13/23 20:18 Blood Culture - Preliminary Blood SPECIMEN COLLECTED 05/13/23 19:40 Blood Culture - Preliminary Blood SPECIMEN COLLECTED US: Radiologist's impression: 1. Limited quality evaluation of the kidneys due to body habitus. 2. Kidneys are normal size with no hydronephrosis. No mass identified. Small masses would be difficult to exclude. CXR: Radiologist's impression: 1. Evaluation limited by patient body habitus and by several overlying external electrodes. 2. A right-sided central venous catheter is present, possibly entering through the subclavian vein. The tip projects over the superior vena cava, near the cavoatrial junction. 3. Mild interval improvement in hazy bilateral pulmonary opacities, possibly related to edema. CT Abd/Pel: Radiologist's impression: Kidneys and ureters: Normal kidneys. No hydronephrosis. No calculus. Other data: seen via telemedicine with assitance of RN at bedside A&P Assessment and plan (1) Acute kidney failure: Plan 1. Acute on chronic kidney disease stage III: Baseline creatinine mid 1 range, now has a creatinine of 9 with severe hyperkalemia, metabolic acidosis and volume overload. s/p HD last evening. urine sodium low consistent with prerenal state; FRANCISCO possibly related to jardiance. Will send serologic workup. Hydrate overnight IVF NSS at 100 ml/hr 2. Hyperkalemia: improved 3. Metabolic acidosis:add oral sodium bicarbonate, HD again tomorrow 4. Possible UTI: on linezolid,culture pending, BC no growth Attestations 2 Medical Necessity Statement*: see above Time Spent in Patient Care: Greater than 35 minutes Coding Level of Care Code Acute Code for [facility] Fwd Diagnoses Acute kidney failure N17.9
[2023-05-14 17:27] LABS: Glucose Point of Care 166 mg/dL (70-110)
[2023-05-14] MEDS: ondansetron 2 mg/ML SDV 2 mL 4 MG IVP (17:33)
[2023-05-14] MEDS: sodium chloride 0.9% 1,000 ML 100 ML IV (19:39)
--- NOTE | 2023-05-14 21:27 | US_ITS ---
WS: [id number] RENAL ULTRASOUND HISTORY: FRANCISCO COMPARISON: CT 05/13/2023 TECHNIQUE: 2-D and color Doppler imaging of the kidney submitted. Quality of this examination is significantly compromised by patient's body habitus. Right kidney: 12.7 cm x 6.2 cm x 5.1 cm. Cortex: 1.4 cm Kidney is poorly visualized. There is no hydronephrosis or mass identified. Left kidney: 11.4 cm x 5.8 cm x 6.1 cm. Cortex: 1.5 cm Kidney is poorly visualized. No hydronephrosis or mass identified. Aorta: Not visualized. Urinary Bladder: Fuentes catheter present. Nondistended bladder. IMPRESSION: 1. Limited quality evaluation of the kidneys due to body habitus. 2. Kidneys are normal size with no hydronephrosis. No mass identified. Small masses would be difficul t to exclude.
[2023-05-14] MEDS: sodium bicarbonate 650 mg Tablet PO (21:28)
[2023-05-14] MEDS: pantoprazole 40 mg SDV IVP (21:29)
[2023-05-14] MEDS: insulin glargine 100 units/1 mL 5 UNIT SUBCUT (21:32)
--- NOTE | 2023-05-14 21:53 | XRR_ITS ---
PROCEDURE INFORMATION: Exam: XR Abdomen Exam date and time: 05/15/2023 3:04 AM Age: 62 years old Clinical indication: Nausea and vomiting; Additional info: N/v TECHNIQUE: Imaging protocol: Radiologic exam of the abdomen. Views: Frontal supine view of the abdomen. 1 View. COMPARISON: CT abdomen pelvis con [id number] 05/13/2023 10:47 PM FINDINGS: Gastrointestinal tract: Excess large and small bowel gas is present with generalized mild small bowel dilation. Bones/joints: Diffuse DJD. XR/XR KUB portable [id number] IMPRESSION: [id number] probable ileus.
--- NOTE | 2023-05-14 21:59 | PC.NURSE ---
N/V Patient vomiting. 4 mg zofran Q6H administered at 1733; Dr. Rodriguez contacted and orders received for a KUB xray, 5 mg reglan IVP once, as well as to keep patient NPO. See MAR for details.
[2023-05-14] MEDS: metoclopramide 5 mg/mL SDV 2 mL IVP (22:03)
--- NOTE | 2023-05-14 23:20 | PM.PN ---
Subjective Subjective: Having back pain and muscle spasms. Vitals/I&O/Wt Last Vital Signs Temp 98.4 F 05/14/23 21:00 Pulse 76 05/14/23 23:15 Resp 9 L 05/14/23 23:15 BP 110/59 05/14/23 23:15 Pulse Ox 92 05/14/23 23:15 O2 Del Method Nasal Cannula 05/14/23 19:44 O2 Flow Rate 2 05/14/23 19:44 05/14/23 05/14/23 05/15/23 14:59 22:59 06:59 Intake Total 830 / 830 590 / 1420 Output Total 250 / 250 Balance 830 / 830 340 / 1170 Weight last 48 hrs Weight 119.295 kg Weight 119.5 kg Weight 119.748 kg Weight 149.685 kg Physical Exam Urinary Catheter Management: Fuentes: Cath Placed During This Visit: yes Reason for Continuing Indwelling Catheter: Accurate Measurement of Urinary Output in Critically Ill Patients Urinary Catheter Date of Insertion: 05/13/23 Urinary Catheter Time of Insertion: 19:56 Data 05/14/23 05:50 05/14/23 05:50 Micro: Microbiology 05/13/23 20:18 Blood Culture - Preliminary Blood NEGATIVE TO DATE 05/13/23 19:40 Blood Culture - Preliminary Blood NEGATIVE TO DATE A&P Assessment and plan (1) Sepsis: (2) Cellulitis and abscess of foot: (3) CHF (congestive heart failure): (4) Afib: (5) Back pain: Qualifiers: Back pain laterality: bilateral Back pain location: low back pain Chronicity: acute Sciatica presence: without sciatica Qualified Code(s): M54.50 - Low back pain, unspecified (6) Accidental fall: Qualifiers: Encounter type: initial encounter Qualified Code(s): W19.XXXA - Unspecified fall, initial encounter (7) Compression fracture of L2 lumbar vertebra: Qualifiers: Encounter type: initial encounter Qualified Code(s): S32.020A - Wedge compression fracture of second lumbar vertebra, initial encounter for closed fracture (8) Closed compression fracture of L4 vertebra: Qualifiers: Encounter type: initial encounter Qualified Code(s): S32.040A - Wedge compression fracture of fourth lumbar vertebra, initial encounter for closed fracture (9) Chronic respiratory failure with hypoxia: (10) Anasarca: (11) Metabolic acidemia: (12) Wide QRS ventricular tachycardia: (13) Prolonged QT interval: Plan Sepsis: Secondary to cellulitis, reviewed vitals, CBC, CMP. Reviewed kidney ultrasound, noted without obstruction. Temperature with improvement. Leukocytosis noted worsened up to 17.5. No noted diarrhea. Has weaned off pressors. Continue treatment of cellulitis, continue Estronol, linezolid. Risk of neutropenia with antibiotic. Monitor blood counts. Follow-up CBC, CMP. Monitor blood pressures. As blood pressures are still soft, monitor in ICU for now as may require additional pressor. Sacral ulcer present on admission Skin sloughed off lower extremities Reviewed blood cultures reviewed repeat lactic acid. Discussed with case management associate. Anasarca Component of congestive heart failure and acute on chronic kidney failure Most likely will need dialysis within few hours Acute on chronic kidney disease: Reviewed nephrology note. Status post HD. Hydrate overnight. Reviewed chemistry. Severe hyperkalemia with improvement. FRANCISCO possibly related to Jardiance. Started on bicarbonate. Reviewed surgery note. Hyperkalemia: On review severe hyperkalemia with improvement.with prolonged QTc, wide QRS, patient has been given calcium gluconate along insulin, dextrose, Patient will need bicarb Repeat BMP within an hour A-fib without RVR Continue amiodarone and metoprolol patient was bradycardic during last visit Toprol dose was reduced Hold Eliquis for now DVT prophylaxis: startedheparin Renal diet Back pain related to compression fracture L2 L4 Will keep him on opioids along bowel regimen Type II diabetic insulin sliding scale Hypervolemia with hyponatremia guarded prognosis, patient is high risk for further deterioration Full code Attestations Medical Necessity Statement*: Continue admission for assessment management of FRANCISCO on CKD with severe hyperkalemia, acidosis, anasarca, treatment of cellulitis, improving sepsis. Diagnoses Sepsis A41.9 Cellulitis and abscess of foot L03.119; L02.619 CHF (congestive heart failure) I50.9 Afib I48.91 Back pain M54.50 Back pain laterality: bilateral Back pain location: low back pain Chronicity: acute Sciatica presence: without sciatica Accidental fall W19.XXXA Encounter type: initial encounter Compression fracture of L2 lumbar vertebra S32.020A Encounter type: initial encounter Closed compression fracture of L4 vertebra S32.040A Encounter type: initial encounter Chronic respiratory failure with hypoxia J96.11 Anasarca R60.1 Metabolic acidemia E87.20 Wide QRS ventricular tachycardia I47.20 Prolonged QT interval R94.31
--- NOTE | 2023-05-14 23:44 | PC.NURSE ---
Heparin subq held per Dr. Rodriguez
[2023-05-15] VITALS (138 sets, daily range): BP systolic 89–166; BP diastolic 43–82; PULSE 67–97; RESP 8–25; TEMP 36.7–37.6; O2SAT 82–100
[2023-05-15] MEDS: HYDROmorphone 1 mg/mL INJ 1 mL 0.2 MG IVP ×6 (01:09→23:48)
--- NOTE | 2023-05-15 01:45 | XRR_ITS ---
PROCEDURE INFORMATION: Exam: XR Chest Exam date and time: 05/15/2023 2:58 AM Age: 62 years old Clinical indication: Device placement; Picc; Additional info: Picc line placement TECHNIQUE: Imaging protocol: Radiologic exam of the chest. Views: 1 view. COMPARISON: CR (CHEST, ) 05/14/2023 2:54 AM FINDINGS: Tubes, catheters and devices: New right PICC in place, tip overlies lower SVC. Lungs: Left basilar opacities mildly progressed. Underlying COPD. Pleural spaces: No pneumothorax. Heart/Mediastinum: Heart is large. Vasculature: Right subclavian PermCath unchanged. Advanced diffuse vascular calcification noted. Bones/joints: Unremarkable. XR/XR chest 1V portable [id number] IMPRESSION: 1. New right PICC in place. 2. Left mid to lower lung atelectasis or airspace disease mildly progressed from prior day.
--- NOTE | 2023-05-15 02:08 | PC.NURSE ---
Consulted for PICC placement for sepsis. Patient had signed consent prior to arrival per nursing staff. Confirmed consent with pt and his understanding of risks and benefits. Pt gave verbal consent to me as well. While doing this nurse came in to give the pt pain medication. Assessed RUE and noted the basilic is good target vessel at over 5mm in diameter and free of evidence of thrombus or stenosis. Noted RUE circumference at 10 cm above the AC fossa is 31 cm. Using US guidance, MST, and sterile technique the RUE basilic vein was accessed x 1 stick. Device fed easily. All 3 ports aspirate and flush. Device secured and dressed. EBL 5 ml. Labs drawn and given to nursing staff per request. Chest xray ordered and performed. Device tip appears to be in lower 1/3 of SVC, but pending physician confirmation. Pt tolerated procedure well. Noted total length to be 44 cm.
[2023-05-15 02:38] LABS: Basophils % 0.1 %; Eosinophils % 0.1 %; Hematocrit 33.9 % (37-53); Lymphocytes # 0.3 10^3/uL (0.8-4.8); Lymphocytes % 2.6 %; Mean Corpuscular HGB Conc 33.3 g/dL (30-55); Mean Corpuscular Hemoglobin 30.6 pg (27-33); Mean Corpuscular Volume 91.9 fl (82-101); Mean Platelet Volume 9.7 fL (7.4-10.4); Monocytes # 0.9 10^3/uL (0.2-0.9); Monocytes % 8.3 %; Neutrophils # 9.87 10^3/uL (1.8-7.7); Neutrophils % 88.3 %; Nucleated Red Blood Cells % 0 %; Platelet Count 216 10^3/cmm (157-399); Red Blood Count 3.69 10^6/uL (3.85-5.65); Red Cell Distribution Width 17.4 % (12.1-15.1); White Blood Count 11.18 10^3/uL (3.29-11.43)
[2023-05-15 04:25] LABS: Alanine Aminotransferase < 5 U/L (0-41); Albumin Level 2.8 g/dL (3.5-5.2); Alkaline Phosphatase 188 U/L (40-130); Blood Urea Nitrogen 68 mg/dL (8-23); Calcium 7.7 mg/dL (8.5-10.5); Carbon Dioxide 20 mmol/L (22-29); Chloride 95 mmol/L (98-107); Complement C3 124 mg/dL (90-180); Globulin 3.8 g/dL (1.3-4.6); Glomerular Filtration Rate 9.6 mL/min (90-130); Glucose 154 mg/dL (65-115); Osmolality Calculated 297 mOsm/kg (285-295); Sodium 132 mmol/L (136-145); Total Bilirubin 0.3 mg/dL (0.15-1.2); Total Protein 6.6 g/dL (6.6-8.7); Uric Acid 10.4 mg/dL (3.4-7.0)
[2023-05-15 04:28] LABS: Anion Gap 22.4 (5-19); Potassium 5.4 mmol/L (3.5-5.1)
[2023-05-15 04:29] LABS: Aspartate Amino Transferase 12 U/L (0-40)
[2023-05-15] MEDS: sodium chloride 0.9% 1,000 ML 100 ML IV (04:37)
[2023-05-15 07:34] LABS: Glucose Point of Care 115 mg/dL (70-110)
[2023-05-15] MEDS: linezolid premix 600 MG/300 ML PREMIX 300 MG IV ×2 (08:49→20:28)
[2023-05-15] MEDS: lidocaine 5% Patch 1 PATCH TOPICAL (08:54)
[2023-05-15] MEDS: gabapentin 100 mg Capsule PO ×3 (08:55→20:05)
[2023-05-15] MEDS: amiodarone 200 mg Tablet PO (08:55)
[2023-05-15] MEDS: calcium acetate 667 mg Capsule 1334 MG PO ×2 (08:55→17:37)
[2023-05-15] MEDS: sennosides-docusate Tablet 1 TAB PO (08:55)
[2023-05-15] MEDS: sucralfate 1 gm/10 mL Oral Liq UDC PO ×2 (08:55→17:37)
[2023-05-15] MEDS: sodium bicarbonate 650 mg Tablet PO ×4 (08:55→20:05)
[2023-05-15] MEDS: pantoprazole 40 mg SDV IVP ×2 (08:55→20:28)
[2023-05-15] MEDS: metoprolol tartrate 25 mg Tablet PO (08:55)
[2023-05-15] MEDS: aztreonam 1,000 MG in sodium chloride 0.9% (plus) 50 ML 100 MG IV ×2 (11:09→21:46)
[2023-05-15] MEDS: ondansetron 2 mg/ML SDV 2 mL 4 MG IVP (11:25)
[2023-05-15] MEDS: oxyCODONE-APAP 5-325 mg Tablet 1 TAB PO ×2 (11:25→17:37)
--- NOTE | 2023-05-15 13:13 | P.PN_ITS ---
Subjective 2 Subjective: feels a little better today less tremulous, less pain Vitals/I&O/Wt Last Vital Signs Temp 98.0 F 05/15/23 10:54 Pulse 79 05/15/23 06:48 Resp 18 05/15/23 11:25 BP 124/53 05/15/23 06:15 Pulse Ox 99 05/15/23 11:25 O2 Del Method Nasal Cannula 05/15/23 06:48 O2 Flow Rate 2 05/15/23 06:48 05/14/23 05/15/23 05/15/23 22:59 06:59 14:59 Intake Total 590 / 1420 896.667 / 2316.667 350 / 350 Output Total 250 / 250 Balance 340 / 1170 896.667 / 2066.667 350 / 350 Weight last 48 hrs Weight 118.841 kg Weight 119.096 kg Weight 119.295 kg Weight 119.5 kg Weight 119.748 kg Weight 149.685 kg Physical Exam 2 Extremity: NARRATIVE EXTREMITY EXAM: + redness, + peeling skin, + edema legs Urinary Catheter Management: Fuentes: Cath Placed During This Visit: yes Reason for Continuing Indwelling Catheter: Accurate Measurement of Urinary Output in Critically Ill Patients Urinary Catheter Date of Insertion: 05/13/23 Urinary Catheter Time of Insertion: 19:56 Data 05/15/23 01:48 05/15/23 03:56 Other Labs: complements nromal, uric acid 10, albumin 2.8 Micro: Microbiology 05/13/23 21:02 Urine Culture - Preliminary Urine,Clean Catch 05/13/23 20:18 Blood Culture - Preliminary Blood NEGATIVE TO DATE 05/13/23 19:40 Blood Culture - Preliminary Blood NEGATIVE TO DATE Other data: seen via telemedicine with assistance of RN at bedside A&P Assessment and plan (1) Acute kidney failure: Qualifiers: Acute renal failure type: with acute tubular necrosis Qualified Code(s): N17.0 - Acute kidney failure with tubular necrosis Plan 1. Acute kidney injury, oliguric, possibly related to jardiance, sepsis, serologic workup pending, s/p hemodialysis 2. hyperkalemia, mild hyponatremia 3. Metabolic acidosis:improved, continue oral sodium bicarbonate, HD today 4. Possible UTI: on linezolid, urine culture, BC no growth Attestations 2 Medical Necessity Statement*: critically ill in ICU Time Spent in Patient Care: 16 - 35 minutes Coding Level of Care Code Acute Code for Chg Fwd Diagnoses Acute renal failure with tubular necrosis N17.0 Acute renal failure type: with acute tubular necrosis
[2023-05-15 13:42] LABS: Glucose Point of Care 179 mg/dL (70-110)
[2023-05-15] MEDS: insulin lispro 100 unit/1 mL SUBCUT (14:18)
[2023-05-15] MEDS: heparin, porcine 1,000 unit/mL INJ 10 mL 1000 UNIT IV (14:26)
[2023-05-15 16:49] LABS: Glucose Point of Care 105 mg/dL (70-110)
[2023-05-15 16:51] LABS: Urine Random Sodium < 10 mmol/L
[2023-05-15] MEDS: sodium chloride 0.9% 1,000 ML 30 ML IV (17:37)
[2023-05-15] MEDS: heparin, porcine 1,000 unit/mL INJ 10 mL 10000 UNIT HE (18:24)
--- NOTE | 2023-05-15 18:42 | P.PN_ITS ---
Vitals/I&O/Wt Last Vital Signs Temp 98.0 F 05/15/23 16:53 Pulse 90 05/15/23 18:30 Resp 18 05/15/23 18:30 BP 116/68 05/15/23 18:30 Pulse Ox 95 05/15/23 18:30 O2 Del Method Nasal Cannula 05/15/23 18:30 O2 Flow Rate 3 05/15/23 18:30 05/15/23 05/15/23 05/15/23 06:59 14:59 22:59 Intake Total 896.667 / 2316.667 1320 / 1320 401.5 / 1721.5 Balance 896.667 / 2066.667 1320 / 1320 401.5 / 1721.5 Weight last 48 hrs Weight 118.841 kg Weight 119.096 kg Weight 119.295 kg Weight 119.5 kg Weight 119.748 kg Weight 149.685 kg Physical Exam 2 Const: COMMON NORMALS: patient oriented x3 and alert GENERAL APPEARANCE: c ooperative ORIENTATION/CONSCIOUSNESS: Yes awake HENMT: COMMON NORMALS: oropharynx normal Neck/C-Spine: COMMON NORMALS: no JVD Resp: COMMON NORMALS: normal respiratory effort and clear to auscultation bilaterally AUSCULTATION: clear to auscultation bilaterally Cardio: COMMON NORMALS: no JVD, regular rhythm, S1 normal heart sound present, S2 normal heart sound present and No murmurs present (Cardio) RHYTHM: regular rhythm HEART SOUNDS: S1 normal heart sound present and S2 normal heart sound present GI: COMMON NORMALS: Normal to inspection, nondistended, normoactive bowel sounds present, Soft to palpation and non-tender PALPATION: Yes Soft to palpation Extremity: COMMON NORMALS: no joint enlargement and no pedal edema Neuro: COMMON NORMALS: patient oriented x3 and moves all extremities S ENSORIUM/ORIENTATION: Yes alert Skin: OTHER: Extensive cellulitis bilateral lower extremities superimposed on previously dry, cracked skin, weeping. Today erythema less intense. Slightly less weeping. Urinary Catheter Management: Fuentes: Cath Placed During This Visit: yes Reason for Continuing Indwelling Catheter: Accurate Measurement of Urinary Output in Critically Ill Patients Urinary Catheter Date of Insertion: 05/13/23 Urinary Catheter Time of Insertion: 19:56 Data 05/15/23 01:48 05/15/23 03:56 Micro: Microbiology 12/19/23 21:02 Urine Culture - Preliminary Urine,Clean Catch 05/13/23 20:18 Blood Culture - Preliminary Blood NEGATIVE TO DATE 05/13/23 19:40 Blood Culture - Preliminary Blood NEGATIVE TO DATE A&P Assessment and plan (1) Sepsis: (2) Cellulitis and abscess of foot: (3) CHF (congestive heart failure): (4) Afib: (5) Back pain: Qualifiers: Back pain laterality: bilateral Back pain location: low back pain C hronicity: acute Sciatica presence: without sciatica Qualified Code(s): M54.50 - Low back pain, unspecified (6) Accidental fall: Qualifiers: Encounter type: initial encounter Qualified Code(s): W19.XXXA - Unspecified fall, initial encounter (7) Compression fracture of L2 lumbar vertebra: Qualifiers: Encounter type: initial encounter Qualified Code(s): S32.020A - Wedge compression fracture of second lumbar vertebra, initial encounter for closed fracture (8) Closed compression fracture of L4 vertebra: Qualifiers: Encounter type: initial encounter Qualified Code(s): S32.040A - Wedge compression fracture of fourth lumbar vertebra, initial encounter for closed fracture (9) Chronic respiratory failure with hypoxia: (10) Anasarca: (11) Metabolic acidemia: (12) Wide QRS ventricular tachycardia: (13) Prolonged QT interval: Plan Hematemesis: Hematemesis overnight. Upper GI bleed. Stress ulcer?. Stop heparin for now. PPI was increased to twice daily. Recheck hemoglobin. Sepsis: Cellulitis with a slightly less intense erythema today. Less weeping. Add wound care with moisture barrier to dry, scaly skin. Continue empiric antibiotic coverage with aztreonam and linezolid. Today worsening of shock, requiring restarting of pressor support. Continue. Wean down as tolerating. Reviewed nephrology documentation. Started on gentle IV rehydration. Secondary to cellulitis. Reviewed CBC. Leukocytosis improved. Reviewed blood culture. So far negative. Reviewed urine culture, no growth in 18-24 hours. Reviewed kidney ultrasound, noted without obstruction. Temperature with improvement. Leukocytosis noted worsened up to 17.5. No noted diarrhea. Has weaned off pressors. Sacral ulcer present on admission Anasarca Component of congestive heart failure and acute on chronic kidney failure Hemodialysis Acute on chronic kidney disease: Acute renal failure. With hyperkalemia, metabolic acidosis, creatinine not improved. Discussed with nephrology, will be receiving dialysis with caution due to soft blood pressures. Reviewed nephrology note. Reviewed chemistry. Repeat in the morning. FRANCISCO possibly related to Jardiance. Started on bicarbonate. Reviewed surgery note. Hyperkalemia: On review severe hyperkalemia with improvement.with prolonged QTc, wide QRS, patient has been given calcium gluconate along insulin, dextrose, Patient will need bicarb Repeat BMP within an hour A-fib without RVR Continue amiodarone and metoprolol patient was bradycardic during last visit Toprol dose was reduced Hold Eliquis for now DVT prophylaxis: Off heparin Renal diet Back pain related to compression fracture L2 L4 Will keep him on opioids along bowel regimen Type II diabetic insulin sliding scale Hypervolemia with hyponatremia guarded prognosis, patient is high risk for further deterioration Full code Attestations 2 Medical Necessity Statement*: Continue admission for assessment management of sepsis, cellulitis, upper GI bleeding, acute renal failure Coding Level of Care Code Critical Care >/= 30 minutes Critical care time (in minutes): 35 The high probability of a clinically significant, sudden or life threatening deterioration, as referenced in this documentation, required my full and direct attention, intervention and personal management. The critical care time shown is in addition to time spent performing any reported separately billable procedures and includes the following: [x] Data and vital sign review and interpretation [x ] Patient assessment, examination and intervention [x] Medication orders and management [x] Patient/Family updates as able [x] Care Coordination and Documentation. Diagnoses Sepsis A41.9 Cellulitis and abscess of foot L03.119; L02.619 CHF (congestive heart failure) I50.9 Afib I48.91 Back pain M54.50 Back pain laterality: bilateral Back pain location: low back pain Chronicity: acute Sciatica presence: without sciatica Accidental fall W19.XXXA Encounter type: initial encounter Compression fracture of L2 lumbar vertebra S32.020A Encounter type: initial encounter Closed compression fracture of L4 vertebra S32.040A Encounter type: initial encounter Chronic respiratory failure with hypoxia J96.11 Anasarca R60.1 Metabolic acidemia E87.20 Wide QRS ventricular tachycardia I47.20 Prolonged QT interval R94.31
[2023-05-15 19:56] LABS: Glucose Point of Care 148 mg/dL (70-110)
[2023-05-15] MEDS: insulin glargine 100 units/1 mL 5 UNIT SUBCUT (20:05)
[2023-05-16] VITALS (30 sets, daily range): BP systolic 88–115; BP diastolic 45–60; PULSE 66–111; RESP 8–19; TEMP 36.5–37.3; O2SAT 90–100
[2023-05-16] MEDS: oxyCODONE-APAP 5-325 mg Tablet 1 TAB PO ×3 (01:50→19:00)
--- NOTE | 2023-05-16 03:31 | PC.NURSE ---
Zinc Oxcide placed to dry areas of bilat lower ext.
[2023-05-16 05:09] LABS: Basophils # 0.1 10^3/uL (0.0-0.1); Basophils % 0.7 %; Eosinophils # 0.2 10^3/uL (0.0-0.8); Eosinophils % 2.4 %; Hematocrit 29.4 % (37-53); Lymphocytes # 0.3 10^3/uL (0.8-4.8); Lymphocytes % 4.4 %; Mean Corpuscular HGB Conc 32.7 g/dL (30-55); Mean Corpuscular Volume 94.8 fl (82-101); Mean Platelet Volume 9.7 fL (7.4-10.4); Monocytes # 0.8 10^3/uL (0.2-0.9); Monocytes % 10.4 %; Neutrophils # 6.14 10^3/uL (1.8-7.7); Neutrophils % 81.7 %; Nucleated Red Blood Cells % 0 %; Platelet Count 171 10^3/cmm (157-399); Red Cell Distribution Width 17.2 % (12.1-15.1); White Blood Count 7.51 10^3/uL (3.29-11.43)
[2023-05-16 05:31] LABS: Alanine Aminotransferase < 5 U/L (0-41); Albumin Level 2.7 g/dL (3.5-5.2); Alkaline Phosphatase 168 U/L (40-130); Blood Urea Nitrogen 45 mg/dL (8-23); Carbon Dioxide 26 mmol/L (22-29); Chloride 97 mmol/L (98-107); Globulin 3.2 g/dL (1.3-4.6); Glomerular Filtration Rate 16.8 mL/min (90-130); Glucose 159 mg/dL (65-115); Osmolality Calculated 293 mOsm/kg (285-295); Sodium 134 mmol/L (136-145); Total Bilirubin 0.4 mg/dL (0.15-1.2); Total Protein 5.9 g/dL (6.6-8.7)
[2023-05-16 05:32] LABS: Anion Gap 15.3 (5-19); Potassium 4.3 mmol/L (3.5-5.1)
[2023-05-16 05:33] LABS: Aspartate Amino Transferase 10 U/L (0-40)
[2023-05-16 07:40] LABS: Glucose Point of Care 143 mg/dL (70-110)
[2023-05-16] MEDS: sodium bicarbonate 650 mg Tablet PO ×4 (07:45→20:14)
[2023-05-16] MEDS: metoprolol tartrate 25 mg Tablet PO (07:45)
[2023-05-16] MEDS: gabapentin 100 mg Capsule PO ×3 (07:45→20:14)
[2023-05-16] MEDS: amiodarone 200 mg Tablet PO (07:45)
[2023-05-16] MEDS: lidocaine 5% Patch 1 PATCH TOPICAL (07:46)
[2023-05-16] MEDS: sennosides-docusate Tablet 1 TAB PO (07:46)
[2023-05-16] MEDS: calcium acetate 667 mg Capsule 1334 MG PO ×3 (07:46→17:13)
[2023-05-16] MEDS: sucralfate 1 gm/10 mL Oral Liq UDC PO ×2 (07:46→17:12)
[2023-05-16] MEDS: insulin lispro 100 unit/1 mL SUBCUT ×3 (07:47→17:13)
[2023-05-16] MEDS: pantoprazole 40 mg SDV IVP ×2 (09:23→20:14)
[2023-05-16] MEDS: linezolid premix 600 MG/300 ML PREMIX 300 MG IV ×2 (09:23→20:16)
[2023-05-16 09:54] LABS: Anti-streptolysin O 1014 IU/mL (<200)
[2023-05-16] MEDS: aztreonam 1,000 MG in sodium chloride 0.9% (plus) 50 ML 100 MG IV ×2 (10:32→21:15)
[2023-05-16 12:00] LABS: Glucose Point of Care 161 mg/dL (70-110)
[2023-05-16 12:20] LABS: KAPPA LIGHT CHAIN, FREE, SERUM 150.2 mg/L (3.3-19.4); KAPPA/LAMBDA LIGHT CHAINS FREE 1.09 (0.26-1.65); LAMBDA LIGHT CHAIN, FREE, SERU 137.5 mg/L (5.7-26.3)
[2023-05-16 15:25] LABS: Anti-Nuclear Antibody Screen NEGATIVE (NEGATIVE)
[2023-05-16] MEDS: lanolin oint 7 gm 1 APPLIC TOPICAL (17:15)
[2023-05-16 17:25] LABS: Glucose Point of Care 194 mg/dL (70-110)
--- NOTE | 2023-05-16 19:39 | PC.NURSE ---
Assumed care of patient, resting in bed watching TV. Reports back pain is a little better since giving pain pill. Still a 6 on 0-10 pain scale. Coated bilat lower legs in zinc as ordered per MD. Respirations even and unlabored.
[2023-05-16] MEDS: insulin glargine 100 units/1 mL 5 UNIT SUBCUT (20:22)
[2023-05-16 20:27] LABS: Glucose Point of Care 144 mg/dL (70-110)
--- NOTE | 2023-05-16 20:41 | P.PN_ITS ---
Subjective 2 Subjective: remains tremulous BP dropped during HD yesterday Vitals/I&O/Wt Last Vital Signs Temp 98.4 F 05/16/23 03:51 Pulse 83 05/16/23 20:00 Resp 13 05/16/23 20:00 BP 94/47 05/16/23 20:00 Pulse Ox 93 05/16/23 20:00 O2 Del Method Nasal Cannula 05/16/23 20:00 O2 Flow Rate 3 05/16/23 20:00 05/16/23 05/16/23 05/16/23 06:59 14:59 22:59 Intake Total 1150 / 1150 240 / 1390 Output Total 150 / 500 Balance -150 / 7275.267 1647 / 1150 240 / 1390 Weight last 48 hrs Weight 124.239 kg Weight 118.841 kg Weight 119.096 kg Physical Exam 2 Urinary Catheter Management: Fuentes: Cath Placed During This Visit: yes Reason for Continuing Indwelling Catheter: Accurate Measurement of Urinary Output in Critically Ill Patients Urinary Catheter Date of Insertion: 05/13/23 Urinary Catheter Time of Insertion: 19:56 Data 05/16/23 04:39 05/16/23 04:39 Other Labs: Ca 8.0, alb 2.7 Micro: Microbiology 05/13/23 21:02 Urine Culture - Preliminary Urine,Clean Catch Other data: seen via telemedicine with assistance of RN at bedside A&P Assessment and plan (1) Acute kidney failure: Qualifiers: Acute renal failure type: with acute tubular necrosis Qualified Code(s): N17.0 - Acute kidney failure with tubular necrosis Plan 1. Acute kidney injury, oliguric, possibly related to jardiance, sepsis, serologic workup pending, s/p hemodialysis 2. hyperkalemia, resolved 3. Metabolic acidosis:resolved, discontinue oral sodium bicarbonate 4. Possible UTI: on linezolid, urine culture, BC no growth 5. Anemia: epogen at dialysis Recommend: HD tomorrow, 2K, 1Liter UF as BP tolerates, repeat phos Attestations 2 Medical Necessity Statement*: see above Time Spent in Patient Care: 16 - 35 minutes Coding Level of Care Code Acute Code for Chg Fwd Diagnoses Acute renal failure with tubular necrosis N17.0 Acute renal failure type: with acute tubular necrosis
[2023-05-16] MEDS: HYDROmorphone 1 mg/mL INJ 1 mL 0.2 MG IVP (20:45)
--- NOTE | 2023-05-16 20:58 | PC.NURSE ---
Lidocaine patch removed from back, rolled in bed, cleaned sacral area and optifoam dressing applied to stage 2 ulcer to right buttock. Zinc ointment applied to raw and pealing skin between legs and to lower buttock. Transferred to [facility] bed to prepare to transfer. Report given to Princess.
--- NOTE | 2023-05-16 21:08 | P.PN_ITS ---
Subjective 2 Subjective: He reports he is doing okay. Low bit better in terms of back pain. He would like to try to advance his diet. Vitals/I&O/Wt Last Vital Signs Temp 98.4 F 05/16/23 03:51 Pulse 83 05/16/23 20:00 Resp 18 05/16/23 20:45 BP 94/47 05/16/23 20:00 Pulse Ox 98 05/16/23 20:45 O2 Del Method Nasal Cannula 05/16/23 20:00 O2 Flow Rate 3 05/16/23 20:00 05/16/23 05/16/23 05/16/23 06:59 14:59 22:59 Intake Total 1150 / 1150 240 / 1390 Output Total 150 / 500 Balance -150 / 4333.450 1054 / 1150 240 / 1390 Weight last 48 hrs Weight 124.239 kg Weight 118.841 kg Weight 119.096 kg Physical Exam 2 Const: COMMON NORMALS: patient oriented x3 and alert GENERAL APPEARANCE: c ooperative ORIENTATION/CONSCIOUSNESS: Yes awake HENMT: COMMON NORMALS: oropharynx normal Neck/C-Spine: COMMON NORMALS: no JVD Resp: COMMON NORMALS: normal respiratory effort and clear to auscultation bilaterally AUSCULTATION: clear to auscultation bilaterally Cardio: COMMON NORMALS: no JVD, regular rhythm, S1 normal heart sound present, S2 normal heart sound present and No murmurs present (Cardio) RHYTHM: regular rhythm HEART SOUNDS: S1 normal heart sound present and S2 normal heart sound present GI: COMMON NORMALS: Normal to inspection, nondistended, normoactive bowel sounds present, Soft to palpation and non-tender PALPATION: Yes Soft to palpation Extremity: COMMON NORMALS: no joint enlargement and no pedal edema Neuro: COMMON NORMALS: patient oriented x3 and moves all extremities S ENSORIUM/ORIENTATION: Yes alert Skin: OTHER: Extensive cellulitis bilateral lower extremities superimposed on previously dry, cracked skin. Dry, cracked areas covered with zinc oxide. Today erythema less intense. Less weeping. Urinary Catheter Management: Fuentes: Cath Placed During This Visit: yes Reason for Continuing Indwelling Catheter: Accurate Measurement of Urinary Output in Critically Ill Patients Urinary Catheter Date of Insertion: 05/13/23 Urinary Catheter Time of Insertion: 19:56 Data 05/16/23 04:39 05/16/23 04:39 Micro: Microbiology 05/13/23 21:02 Urine Culture - Preliminary Urine,Clean Catch A&P Assessment and plan (1) Sepsis: (2) Cellulitis and abscess of foot: (3) CHF (congestive heart failure): (4) Afib: (5) Back pain: Qualifiers: Back pain laterality: bilateral Back pain location: low back pain C hronicity: acute Sciatica presence: without sciatica Qualified Code(s): M54.50 - Low back pain, unspecified (6) Accidental fall: Qualifiers: Encounter type: initial encounter Qualified Code(s): W19.XXXA - Unspecified fall, initial encounter (7) Compression fracture of L2 lumbar vertebra: Qualifiers: Encounter type: initial encounter Qualified Code(s): S32.020A - Wedge compression fracture of second lumbar vertebra, initial encounter for closed fracture (8) Closed compression fracture of L4 vertebra: Qualifiers: Encounter type: initial encounter Qualified Code(s): S32.040A - Wedge compression fracture of fourth lumbar vertebra, initial encounter for closed fracture (9) Chronic respiratory failure with hypoxia: (10) Anasarca: (11) Metabolic acidemia: (12) Wide QRS ventricular tachycardia: (13) Prolonged QT interval: Plan Hematemesis: Resolved, so far without any further hematemesis. Possibly stress related ulcers with sepsis, septic shock on presentation. Continue IV twice daily PPI. At some point would benefit with follow-up for EGD. Reviewed vitals, blood counts, hemoglobin 9.6, platelets reviewed, 171. Repeat both. Anticoagulation has been withheld for now. He has tolerated clear liquid diet, would like to advance to solids. GI soft requested. Sepsis: Improving. Reviewed WBC, leukocytosis has resolved. Afebrile on review of vitals. On examination cellulitis appears to be gradually improving. Continue IV antibiotic coverage with aztreonam, linezolid. Watch for acrinol cytosis, follow-up CBC. Continue wound care. Shock improved, blood pressure still soft, but has weaned off pressors. Transfer out of ICU. Sacral ulcer present on admission Acute on chronic kidney disease: Continues with dialysis for acute renal failure. Reviewed nephrology note. Oral bicarbonate stopped.Serologic workup has been sent for autoimmune causes. With hyperkalemia, metabolic acidosis, creatinine not improved. Follow-up chemistry requested. Discussed with case management. FRANCISCO possibly related to Jardiance. Anasarca Improved Component of congestive heart failure and acute on chronic kidney failure with improvement with dialysis Hemodialysis Hyperkalemia: resolved with dialysis.Follow-up chemistry. A-fib without RVR: Currently controlled, metoprolol dose had to be decreased due to low blood pressures, continue 12.5 mg twice daily. 200 mg amiodarone daily. Hold Eliquis for now DVT prophylaxis: Off heparin Due to hematemesis Renal diet Back pain related to compression fracture L2 L4. requested TLSO brace. Continue local control with lidocaine. As needed Tylenol, Percocet, Dilaudid IV as needed for severe breakthrough. Bowel regimen Type II diabetic insulin sliding scale Hypervolemia with hyponatremia With improvement Full code Attestations 2 Medical Necessity Statement*: Continue admission for assessment management of sepsis, cellulitis, upper GI bleeding, acute renal failure Diagnoses Sepsis A41.9 Cellulitis and abscess of foot L03.119; L02.619 CHF (congestive heart failure) I50.9 Afib I48.91 Back pain M54.50 Back pain laterality: bilateral Back pain location: low back pain Chronicity: acute Sciatica presence: without sciatica Accidental fall W19.XXXA Encounter type: initial encounter Compression fracture of L2 lumbar vertebra S32.020A Encounter type: initial encounter Closed compression fracture of L4 vertebra S32.040A Encounter type: initial encounter Chronic respiratory failure with hypoxia J96.11 Anasarca R60.1 Metabolic acidemia E87.20 Wide QRS ventricular tachycardia I47.20 Prolonged QT interval R94.31
--- NOTE | 2023-05-16 21:30 | PC.NURSE ---
Transferred to room 278-1 via bed. Patient states that he will let his know what room he was move to.
[2023-05-17] VITALS (13 sets, daily range): BP systolic 95–123; BP diastolic 55–62; PULSE 62–89; RESP 16–18; TEMP 36.7–38; O2SAT 93–97
[2023-05-17] MEDS: oxyCODONE-APAP 5-325 mg Tablet 1 TAB PO ×4 (00:16→21:00)
[2023-05-17] MEDS: sodium chloride 0.9% 1,000 ML 30 ML IV (03:00)
[2023-05-17 06:16] LABS: Basophils # 0.1 10^3/uL (0.0-0.1); Basophils % 0.9 %; Eosinophils # 0.4 10^3/uL (0.0-0.8); Eosinophils % 6.2 %; Hematocrit 29.3 % (37-53); Lymphocytes # 0.4 10^3/uL (0.8-4.8); Lymphocytes % 6.2 %; Mean Corpuscular HGB Conc 32.1 g/dL (30-55); Mean Corpuscular Hemoglobin 30.7 pg (27-33); Mean Corpuscular Volume 95.8 fl (82-101); Mean Platelet Volume 9.3 fL (7.4-10.4); Monocytes # 0.8 10^3/uL (0.2-0.9); Monocytes % 11.3 %; Neutrophils # 4.97 10^3/uL (1.8-7.7); Neutrophils % 74.8 %; Nucleated Red Blood Cells % 0 %; Platelet Count 177 10^3/cmm (157-399); Red Blood Count 3.06 10^6/uL (3.85-5.65); Red Cell Distribution Width 16.9 % (12.1-15.1); White Blood Count 6.64 10^3/uL (3.29-11.43)
[2023-05-17 06:40] LABS: Alanine Aminotransferase < 5 U/L (0-41); Albumin Level 2.5 g/dL (3.5-5.2); Alkaline Phosphatase 190 U/L (40-130); Anion Gap 15.1 (5-19); Aspartate Amino Transferase 8 U/L (0-40); Blood Urea Nitrogen 56 mg/dL (8-23); Calcium 8.1 mg/dL (8.5-10.5); Carbon Dioxide 24 mmol/L (22-29); Chloride 98 mmol/L (98-107); Globulin 3.6 g/dL (1.3-4.6); Glomerular Filtration Rate 14.5 mL/min (90-130); Glucose 164 mg/dL (65-115); Osmolality Calculated 295 mOsm/kg (285-295); Potassium 4.1 mmol/L (3.5-5.1); Sodium 133 mmol/L (136-145); Total Bilirubin 0.3 mg/dL (0.15-1.2); Total Protein 6.1 g/dL (6.6-8.7)
--- NOTE | 2023-05-17 07:12 | P.PN_ITS ---
Subjective 2 Subjective: reports tremors, back pain, itchy skin, especially on back, possibly related to pain medication reports he is nonambulatory and uses wheelchair at home Vitals/I&O/Wt Last Vital Signs Temp 98.1 F 05/17/23 03:36 Pulse 76 05/17/23 03:36 Resp 16 05/17/23 06:33 BP 110/57 05/17/23 03:36 Pulse Ox 97 05/17/23 06:33 O2 Del Method Nasal Cannula 05/17/23 03:36 O2 Flow Rate 3 05/16/23 20:00 05/16/23 05/17/23 05/17/23 22:59 06:59 14:59 Intake Total 590 / 1740 1000 / 2740 Output Total 350 / 350 Balance 590 / 1740 650 / 2390 Weight last 48 hrs Weight 126.751 kg Weight 124.239 kg Physical Exam 2 Const: COMMON NORMALS: no acute distress and alert Neuro: SENSORIUM/ORIENTATION: Yes alert OTHER: + intention tremor Urinary Catheter Management: Fuentes: Cath Placed During This Visit: yes Reason for Continuing Indwelling Catheter: Accurate Measurement of Urinary Output in Critically Ill Patients Urinary Catheter Date of Insertion: 05/13/23 Urinary Catheter Time of Insertion: 19:56 Data 05/17/23 05:57 05/17/23 05:57 Other Labs: complement, ZEYNEP negative ANCA neg in February K/L 1.09 ASO +, no known strep infection Micro: Microbiology 05/13/23 21:02 Urine Culture - Preliminary Urine,Clean Catch Other data: seen via telemedicine with assistance of RN at bedside A&P Assessment and plan (1) Acute kidney failure: Qualifiers: Acute renal failure type: with acute tubular necrosis Qualified Code(s): N17.0 - Acute kidney failure with tubular necrosis Plan 1. Acute kidney injury, oliguric, possibly related to jardiance, sepsis, ASO titer positive, but complements are normal, making post-strep GN unlikely. Cellulitis may have been caused by strep. Treatment of post strep GN is supportive care. Continue hemodialysis 2. Metabolic acidosis, hyperkalemia, resolved 3. Anemia: epogen at dialysis Recommend: HD today, 2K, 1Liter UF as BP tolerates, repeat phos. Next HD FridayMay 20 Attestations 2 Medical Necessity Statement*: see above Time Spent in Patient Care: 16 - 35 minutes Coding Level of Care Code Acute Code for Chg Fwd Diagnoses Acute renal failure with tubular necrosis N17.0 Acute renal failure type: with acute tubular necrosis
[2023-05-17 08:06] LABS: Glucose Point of Care 235 mg/dL (70-110)
[2023-05-17] MEDS: amiodarone 200 mg Tablet PO (08:57)
[2023-05-17] MEDS: gabapentin 100 mg Capsule PO ×2 (08:57→14:44)
[2023-05-17] MEDS: sucralfate 1 gm/10 mL Oral Liq UDC PO ×2 (08:57→18:59)
[2023-05-17] MEDS: pantoprazole 40 mg SDV IVP ×2 (08:57→20:57)
[2023-05-17] MEDS: insulin lispro 100 unit/1 mL SUBCUT ×2 (08:57→13:31)
[2023-05-17] MEDS: sennosides-docusate Tablet 1 TAB PO (08:57)
[2023-05-17] MEDS: lidocaine 5% Patch 1 PATCH TOPICAL (08:58)
[2023-05-17] MEDS: metoprolol tartrate 25 mg Tablet 12.5 MG PO (08:58)
[2023-05-17] MEDS: linezolid premix 600 MG/300 ML PREMIX 300 MG IV ×2 (08:59→21:02)
[2023-05-17] MEDS: HYDROmorphone 1 mg/mL INJ 1 mL 0.2 MG IVP ×2 (09:14→23:08)
[2023-05-17] MEDS: calcium acetate 667 mg Capsule 1334 MG PO ×3 (09:14→18:59)
[2023-05-17] MEDS: diphenhydrAMINE 25 mg Capsule PO (10:02)
[2023-05-17] MEDS: aztreonam 1,000 MG in sodium chloride 0.9% (plus) 50 ML 100 MG IV ×2 (10:16→22:13)
[2023-05-17 11:31] LABS: Glucose Point of Care 272 mg/dL (70-110)
[2023-05-17 13:07] LABS: Phosphorus 4.9 mg/dL (2.5-4.5)
[2023-05-17] MEDS: albumin 12.5 GM/50 ML VIAL IV (16:41)
[2023-05-17 16:59] LABS: Glucose Point of Care 102 mg/dL (70-110)
--- NOTE | 2023-05-17 17:20 | P.PN_ITS ---
Vitals/I&O/Wt Last Vital Signs Temp 98.6 F 05/17/23 11:37 Pulse 79 05/17/23 11:37 Resp 18 05/17/23 13:30 BP 123/57 05/17/23 11:37 Pulse Ox 97 05/17/23 11:37 O2 Del Method Nasal Cannula 05/17/23 11:37 O2 Flow Rate 2 05/17/23 07:24 05/17/23 05/17/23 05/17/23 06:59 14:59 22:59 Intake Total 1000 / 2740 830 / 830 Output Total 350 / 350 Balance 650 / 2390 830 / 830 Weight last 48 hrs Weight 126.751 kg Weight 124.239 kg Physical Exam 2 Const: COMMON NORMALS: patient oriented x3 and alert GENERAL APPEARANCE: c ooperative ORIENTATION/CONSCIOUSNESS: Yes awake HENMT: COMMON NORMALS: oropharynx normal Neck/C-Spine: COMMON NORMALS: no JVD Resp: COMMON NORMALS: normal respiratory effort and clear to auscultation bilaterally AUSCULTATION: clear to auscultation bilaterally Cardio: COMMON NORMALS: no JVD, regular rhythm, S1 normal heart sound present, S2 normal heart sound present and No murmurs present (Cardio) RHYTHM: regular rhythm HEART SOUNDS: S1 normal heart sound present and S2 normal heart sound present GI: COMMON NORMALS: Normal to inspection, nondistended, normoactive bowel sounds present, Soft to palpation and non-tender PALPATION: Yes Soft to palpation Extremity: COMMON NORMALS: no joint enlargement and no pedal edema Neuro: COMMON NORMALS: patient oriented x3 and moves all extremities S ENSORIUM/ORIENTATION: Yes alert Skin: OTHER: Excoriations on forearms from scratching. Extensive cellulitis bilateral lower extremities superimposed on previously dry, cracked skin. Dry, cracked areas covered with zinc oxide. Today erythema less intense. Less weeping. Urinary Catheter Management: Fuentes: Cath Placed During This Visit: yes Reason for Continuing Indwelling Catheter: Accurate Measurement of Urinary Output in Critically Ill Patients Urinary Catheter Date of Insertion: 05/13/23 Urinary Catheter Time of Insertion: 19:56 Data 05/17/23 05:57 05/17/23 05:57 Micro: Microbiology 05/13/23 21:02 Urine Culture - Final Urine,Clean Catch A&P Assessment and plan (1) Sepsis: (2) Cellulitis and abscess of foot: (3) CHF (congestive heart failure): (4) Afib: (5) Back pain: Qualifiers: Back pain laterality: bilateral Back pain location: low back pain C hronicity: acute Sciatica presence: without sciatica Qualified Code(s): M54.50 - Low back pain, unspecified (6) Accidental fall: Qualifiers: Encounter type: initial encounter Qualified Code(s): W19.XXXA - Unspecified fall, initial encounter (7) Compression fracture of L2 lumbar vertebra: Qualifiers: Encounter type: initial encounter Qualified Code(s): S32.020A - Wedge compression fracture of second lumbar vertebra, initial encounter for closed fracture (8) Closed compression fracture of L4 vertebra: Qualifiers: Encounter type: initial encounter Qualified Code(s): S32.040A - Wedge compression fracture of fourth lumbar vertebra, initial encounter for closed fracture (9) Chronic respiratory failure with hypoxia: (10) Anasarca: (11) Metabolic acidemia: (12) Wide QRS ventricular tachycardia: (13) Prolonged QT interval: Plan Hematemesis: Hematemesis has not recurred, has had some worsening of anemia, hemoglobin reviewed, noted down to 9.4. Platelets reviewed, 177. Continue twice daily IV PPI. Reassess Resolved, so far without any further hematemesis. Possibly stress related ulcers with sepsis, septic shock on presentation. Continue IV twice daily PPI. At some point would benefit with follow-up for EGD. Reviewed vitals, blood counts, hemoglobin 9.6, platelets reviewed, 171. Repeat both. Anticoagulation has been withheld for now. He has tolerated clear liquid diet, would like to advance to solids. GI soft requested. Sepsis: Improving. Reviewed WBC, leukocytosis has resolved. Afebrile on review of vitals. On examination cellulitis appears to be gradually improving. Continue IV antibiotic coverage with aztreonam, linezolid. Watch for acrinol cytosis, follow-up CBC. Continue wound care. Shock improved, blood pressure still soft, but has weaned off pressors. Sacral ulcer present on admission Acute on chronic kidney disease: Continues with dialysis for acute renal failure. Reviewed today's nephrology note. Additional HD. Follow-up chemistry requested Reviewed serum light chains, noted elevated kappa and lambda light chains, but ratio is WNL. ZEYNEP screen negative. Complement WNL. Serologic workup has been sent for autoimmune causes. With hyperkalemia, metabolic acidosis, creatinine not improved. Discussed with case management. FRANCISCO possibly related to Jardiance. Asterixis: Suspected related to renal failure. Continue dialysis. Will reduce dose of gabapentin to 100 mg twice daily. Pruritus: calamine lotion, given a dose of benadryl Anasarca Improved Component of congestive heart failure and acute on chronic kidney failure with improvement with dialysis Hemodialysis Hyperkalemia: resolved with dialysis.Follow-up chemistry. A-fib without RVR: Currently controlled, metoprolol dose had to be decreased due to low blood pressures, continue 12.5 mg twice daily. 200 mg amiodarone daily. Hold Eliquis for now DVT prophylaxis: Off heparin Due to hematemesis Renal diet Back pain related to compression fracture L2 L4. requested TLSO brace. Continue local control with lidocaine. As needed Tylenol, Percocet, Dilaudid IV as needed for severe breakthrough. Bowel regimen Type II diabetic insulin sliding scale Hypervolemia with hyponatremia With improvement Full code Attestations 2 Medical Necessity Statement*: Continue admission for assessment management of extenisive cellulitis, upper GI bleeding, acute renal failure. Diagnoses Sepsis A41.9 Cellulitis and abscess of foot L03.119; L02.619 CHF (congestive heart failure) I50.9 Afib I48.91 Back pain M54.50 Back pain laterality: bilateral Back pain location: low back pain Chronicity: acute Sciatica presence: without sciatica Accidental fall W19.XXXA Encounter type: initial encounter Compression fracture of L2 lumbar vertebra S32.020A Encounter type: initial encounter Closed compression fracture of L4 vertebra S32.040A Encounter type: initial encounter Chronic respiratory failure with hypoxia J96.11 Anasarca R60.1 Metabolic acidemia E87.20 Wide QRS ventricular tachycardia I47.20 Prolonged QT interval R94.31
[2023-05-17] MEDS: heparin, porcine 1,000 unit/mL INJ 10 mL 1000 UNIT IV (18:58)
[2023-05-17 22:01] LABS: Glucose Point of Care 208 mg/dL (70-110)
[2023-05-17] MEDS: insulin glargine 100 units/1 mL 5 UNIT SUBCUT (22:12)
[2023-05-18] VITALS (12 sets, daily range): BP systolic 101–118; BP diastolic 45–61; PULSE 73–86; RESP 13–18; TEMP 36.4–37.6; O2SAT 92–97; BMI 38.9
[2023-05-18 02:34] LABS: ANCA Screen NEGATIVE (NEGATIVE)
[2023-05-18 04:48] LABS: Basophils # 0.1 10^3/uL (0.0-0.1); Eosinophils # 0.4 10^3/uL (0.0-0.8); Eosinophils % 7.2 %; Hematocrit 30.8 % (37-53); Lymphocytes # 0.4 10^3/uL (0.8-4.8); Lymphocytes % 6.8 %; Mean Corpuscular HGB Conc 30.8 g/dL (30-55); Mean Corpuscular Hemoglobin 30.4 pg (27-33); Mean Corpuscular Volume 98.7 fl (82-101); Mean Platelet Volume 9.6 fL (7.4-10.4); Monocytes # 0.6 10^3/uL (0.2-0.9); Monocytes % 9.8 %; Neutrophils # 4.58 10^3/uL (1.8-7.7); Neutrophils % 74.4 %; Nucleated Red Blood Cells % 0 %; Platelet Count 177 10^3/cmm (157-399); Red Blood Count 3.12 10^6/uL (3.85-5.65); Red Cell Distribution Width 16.6 % (12.1-15.1); White Blood Count 6.15 10^3/uL (3.29-11.43)
[2023-05-18] MEDS: oxyCODONE-APAP 5-325 mg Tablet 1 TAB PO ×4 (04:53→21:24)
[2023-05-18 05:10] LABS: Alanine Aminotransferase < 5 U/L (0-41); Albumin Level 2.3 g/dL (3.5-5.2); Alkaline Phosphatase 162 U/L (40-130); Blood Urea Nitrogen 35 mg/dL (8-23); Calcium 7.8 mg/dL (8.5-10.5); Carbon Dioxide 23 mmol/L (22-29); Chloride 97 mmol/L (98-107); Globulin 3.6 g/dL (1.3-4.6); Glomerular Filtration Rate 23.2 mL/min (90-130); Glucose 143 mg/dL (65-115); Osmolality Calculated 282 mOsm/kg (285-295); Sodium 131 mmol/L (136-145); Total Bilirubin 0.3 mg/dL (0.15-1.2); Total Protein 5.9 g/dL (6.6-8.7)
[2023-05-18 05:12] LABS: Aspartate Amino Transferase 10 U/L (0-40)
[2023-05-18 07:15] LABS: Glucose Point of Care 278 mg/dL (70-110)
[2023-05-18] MEDS: amiodarone 200 mg Tablet PO (08:01)
[2023-05-18] MEDS: sucralfate 1 gm/10 mL Oral Liq UDC PO ×2 (08:01→17:42)
[2023-05-18] MEDS: calcium acetate 667 mg Capsule 1334 MG PO ×3 (08:01→17:42)
[2023-05-18] MEDS: sennosides-docusate Tablet 1 TAB PO (08:02)
[2023-05-18] MEDS: gabapentin 100 mg Capsule PO ×2 (08:02→17:43)
[2023-05-18] MEDS: metoprolol tartrate 25 mg Tablet 12.5 MG PO ×2 (08:02→17:42)
[2023-05-18] MEDS: insulin lispro 100 unit/1 mL SUBCUT ×3 (08:03→17:43)
[2023-05-18 08:07] LABS: Hepatitis C Virus Antibody Non-Reactive (Nonreactive)
[2023-05-18] MEDS: lidocaine 5% Patch 1 PATCH TOPICAL ×2 (09:00→21:24)
[2023-05-18] MEDS: linezolid premix 600 MG/300 ML PREMIX 300 MG IV ×2 (09:01→21:25)
[2023-05-18] MEDS: pantoprazole 40 mg SDV IVP ×2 (09:02→20:58)
--- NOTE | 2023-05-18 09:05 | P.PN_ITS ---
Subjective 2 Subjective: feels better Medications: Reviewed: Yes Vitals/I&O/Wt Last Vital Signs Temp 98.7 F 05/18/23 08:00 Pulse 84 05/18/23 08:00 Resp 18 05/18/23 08:00 BP 107/45 05/18/23 08:00 Pulse Ox 94 05/18/23 08:00 O2 Del Method Nasal Cannula 05/18/23 08:00 O2 Flow Rate 2 05/18/23 08:00 05/17/23 05/18/23 05/18/23 22:59 06:59 14:59 Intake Total 1400 / 2230 50 / 2280 Output Total 769 / 769 500 / 1269 Balance 631 / 1461 -450 / 1011 Weight last 48 hrs Weight 130.226 kg Weight 128.684 kg Weight 126.751 kg Physical Exam 2 Const: COMMON NORMALS: no acute distress and alert Neuro: SENSORIUM/ORIENTATION: Yes alert OTHER: + intention tremor Urinary Catheter Management: Fuentes: Cath Placed During This Visit: yes Reason for Continuing Indwelling Catheter: Assist Healing of Perineal & Sacral Wounds- Incontinent Patients Urinary Catheter Date of Insertion: 05/13/23 Urinary Catheter Time of Insertion: 19:56 Data 05/18/23 04:13 05/18/23 04:13 Micro: Microbiology 05/13/23 21:02 Urine Culture - Final Urine,Clean Catch A&P Assessment and plan (1) Acute kidney failure: Qualifiers: Acute renal failure type: with acute tubular necrosis Qualified Code(s): N17.0 - Acute kidney failure with tubular necrosis Plan 1. Acute kidney injury, oliguric, possibly related to jardiance, sepsis, ASO titer positive, but complements are normal, making post-strep GN unlikely. Cellulitis may have been caused by strep. Treatment of post strep GN is supportive care. On hemodialysis 2. Metabolic acidosis, hyperkalemia, resolved 3. Anemia: epogen at dialysis Recommend: UOP picked up , monitor , if no recovery -Next HD FridayMay 20 Attestations 2 Medical Necessity Statement*: per medicine Coding Level of Care Code Acute Code for g Fwd Diagnoses Acute renal failure with tubular necrosis N17.0 Acute renal failure type: with acute tubular necrosis
[2023-05-18] MEDS: aztreonam 1,000 MG in sodium chloride 0.9% (plus) 50 ML 100 MG IV ×2 (10:27→23:17)
[2023-05-18 13:10] LABS: Glucose Point of Care 169 mg/dL (70-110)
[2023-05-18 15:51] LABS: Glucose Point of Care 172 mg/dL (70-110)
[2023-05-18] MEDS: sodium chloride 0.9% 1,000 ML 30 ML IV (17:41)
--- NOTE | 2023-05-18 20:41 | P.PN_ITS ---
Subjective 2 Subjective: He is feeling better today. Itching improved with calamine lotion after Benadryl. Denies new symptoms. Discomfort in his legs is gradually improving. Asterixis today has resolved. Vitals/I&O/Wt Last Vital Signs Temp 97.8 F 05/18/23 19:38 Pulse 80 05/18/23 19:38 Resp 17 05/18/23 19:38 BP 101/53 05/18/23 19:38 Pulse Ox 97 05/18/23 19:38 O2 Del Method Nasal Cannula 05/18/23 19:38 O2 Flow Rate 2 05/18/23 08:00 05/18/23 05/18/23 05/18/23 06:59 14:59 22:59 Intake Total 50 / 2280 1949 480 / 2430 Output Total 500 / 1269 350 / 350 Balance -450 / 1011 1949 130 / 2080 Weight last 48 hrs Weight 130.226 kg Weight 128.684 kg Weight 126.751 kg Physical Exam 2 Const: COMMON NORMALS: patient oriented x3 and alert GENERAL APPEARANCE: c ooperative ORIENTATION/CONSCIOUSNESS: Yes awake HENMT: COMMON NORMALS: oropharynx normal Neck/C-Spine: COMMON NORMALS: no JVD Resp: COMMON NORMALS: normal respiratory effort and clear to auscultation bilaterally AUSCULTATION: clear to auscultation bilaterally Cardio: COMMON NORMALS: no JVD, regular rhythm, S1 normal heart sound present, S2 normal heart sound present and No murmurs present (Cardio) RHYTHM: regular rhythm HEART SOUNDS: S1 normal heart sound present and S2 normal heart sound present GI: COMMON NORMALS: Normal to inspection, nondistended, normoactive bowel sounds present, Soft to palpation and non-tender PALPATION: Yes Soft to palpation Extremity: COMMON NORMALS: no joint enlargement and no pedal edema Neuro: COMMON NORMALS: patient oriented x3 and moves all extremities S ENSORIUM/ORIENTATION: Yes alert Skin: OTHER: Excoriations on forearms from scratching. Extensive cellulitis bilateral lower extremities superimposed on previously dry, cracked skin. Dry, cracked areas covered with zinc oxide. Today erythema less intense. Less weeping. Urinary Catheter Management: Fuentes: Cath Placed During This Visit: yes Reason for Continuing Indwelling Catheter: Assist Healing of Perineal & Sacral Wounds- Incontinent Patients Urinary Catheter Date of Insertion: 05/13/23 Urinary Catheter Time of Insertion: 19:56 Data 05/18/23 04:13 05/18/23 04:13 Micro: Microbiology 05/13/23 20:18 Blood Culture - Final Blood NO GROWTH AFTER 5 DAYS 05/13/23 19:40 Blood Culture - Final Blood NO GROWTH AFTER 5 DAYS A&P Assessment and plan (1) Sepsis: (2) Cellulitis and abscess of foot: (3) CHF (congestive heart failure): (4) Afib: (5) Back pain: Qualifiers: Back pain laterality: bilateral Back pain location: low back pain C hronicity: acute Sciatica presence: without sciatica Qualified Code(s): M54.50 - Low back pain, unspecified (6) Accidental fall: Qualifiers: Encounter type: initial encounter Qualified Code(s): W19.XXXA - Unspecified fall, initial encounter (7) Compression fracture of L2 lumbar vertebra: Qualifiers: Encounter type: initial encounter Qualified Code(s): S32.020A - Wedge compression fracture of second lumbar vertebra, initial encounter for closed fracture (8) Closed compression fracture of L4 vertebra: Qualifiers: Encounter type: initial encounter Qualified Code(s): S32.040A - Wedge compression fracture of fourth lumbar vertebra, initial encounter for closed fracture (9) Chronic respiratory failure with hypoxia: (10) Anasarca: (11) Metabolic acidemia: (12) Wide QRS ventricular tachycardia: (13) Prolonged QT interval: Plan Hematemesis: Hematemesis has not recurred, has had some worsening of anemia, hemoglobin reviewed, noted down to 9.4. Platelets reviewed, 177. Continue twice daily IV PPI. Reassess Resolved, so far without any further hematemesis. Possibly stress related ulcers with sepsis, septic shock on presentation. Continue IV twice daily PPI. At some point would benefit with follow-up for EGD. Reviewed vitals, blood counts, hemoglobin 9.6, platelets reviewed, 171. Repeat both. Anticoagulation has been withheld for now. He has tolerated clear liquid diet, would like to advance to solids. GI soft requested. Extensive cellulitis: Of the bilateral lower extremities. ASO noted elevated. Possible streptococcal infection. Sepsis resolved. Continue IV antibiotic coverage with this gentleman linezolid. Watch out for agranulocytosis, follow-up CBC. Continue wound care. May benefit from Compression therapy. Should follow-up with wound care. Has still been needing IV Dilaudid for pain. Reviewed WBC, leukocytosis has resolved. Afebrile on review of vitals. Sepsis: Resolved. Reviewed urine culture, preliminary culture without growth at 18-24 hours. Follow-up. Follow-up blood culture so far negative still preliminary. Shock improved, blood pressure still soft, but has weaned off pressors. Sacral ulcer present on admission Acute on chronic kidney disease: Reviewed nephrology note. Noted with some improvement in urine output. Continue to monitor renal function to see if may improve/wean off dialysis. Follow-up chemistry requested Reviewed serum light chains, noted elevated kappa and lambda light chains, but ratio is WNL. ZEYNEP screen negative. Complement WNL. Serologic workup has been sent for autoimmune causes. With hyperkalemia, metabolic acidosis, creatinine not improved. FRANCISCO possibly related to Jardiance. Asterixis: Resolved after dialysis and reduction of gabapentin dose. Suspected related to renal failure. Continue dialysis. Reduced dose of gabapentin to 100 mg twice daily. Pruritus: calamine lotion, given a dose of benadryl Anasarca Improved Component of congestive heart failure and acute on chronic kidney failure with improvement with dialysis Hemodialysis Hyperkalemia: resolved with dialysis.Follow-up chemistry. A-fib without RVR: Currently controlled, metoprolol dose had to be decreased due to low blood pressures, continue 12.5 mg twice daily. 200 mg amiodarone daily. Hold Eliquis for now DVT prophylaxis: Off heparin Due to hematemesis Renal diet Back pain related to compression fracture L2 L4. requested TLSO brace. Continue local control with lidocaine. As needed Tylenol, Percocet, Dilaudid IV as needed for severe breakthrough. Bowel regimen Type II diabetic insulin sliding scale Hypervolemia with hyponatremia With improvement Full code Attestations 2 Medical Necessity Statement*: Continue admission for assessment management of renal failure, monitoring for improvement of renal function, possibility to wean off of hemodialysis, treatment of extenisive cellulitis, monitoring after upper GI bleeding. and High MDM includes described risk of complication, morbidity or mortality of management as documented Diagnoses Sepsis A41.9 Cellulitis and abscess of foot L03.119; L02.619 CHF (congestive heart failure) I50.9 Afib I48.91 Back pain M54.50 Back pain laterality: bilateral Back pain location: low back pain Chronicity: acute Sciatica presence: without sciatica Accidental fall W19.XXXA Encounter type: initial encounter Compression fracture of L2 lumbar vertebra S32.020A Encounter type: initial encounter Closed compression fracture of L4 vertebra S32.040A Encounter type: initial encounter Chronic respiratory failure with hypoxia J96.11 Anasarca R60.1 Metabolic acidemia E87.20 Wide QRS ventricular tachycardia I47.20 Prolonged QT interval R94.31
[2023-05-18 20:46] LABS: Glucose Point of Care 200 mg/dL (70-110)
[2023-05-18] MEDS: insulin glargine 100 units/1 mL 5 UNIT SUBCUT (21:24)
[2023-05-19] VITALS (11 sets, daily range): BP systolic 106–122; BP diastolic 51–63; PULSE 81–89; RESP 16–20; TEMP 36.7–37.8; O2SAT 90–99; BMI 40.0
[2023-05-19] MEDS: oxyCODONE-APAP 5-325 mg Tablet 1 TAB PO ×3 (04:25→20:22)
[2023-05-19 05:16] LABS: Basophils % 0.6 %; Eosinophils # 0.4 10^3/uL (0.0-0.8); Eosinophils % 6.6 %; Hematocrit 30.2 % (37-53); Lymphocytes # 0.2 10^3/uL (0.8-4.8); Lymphocytes % 3.2 %; Mean Corpuscular HGB Conc 30.1 g/dL (30-55); Mean Corpuscular Hemoglobin 30.2 pg (27-33); Mean Corpuscular Volume 100.3 fl (82-101); Mean Platelet Volume 9.3 fL (7.4-10.4); Monocytes # 0.5 10^3/uL (0.2-0.9); Monocytes % 7.1 %; Neutrophils # 5.33 10^3/uL (1.8-7.7); Neutrophils % 80.4 %; Nucleated Red Blood Cells % 0 %; Platelet Count 187 10^3/cmm (157-399); Red Blood Count 3.01 10^6/uL (3.85-5.65); Red Cell Distribution Width 16.2 % (12.1-15.1); White Blood Count 6.63 10^3/uL (3.29-11.43)
[2023-05-19 05:41] LABS: Alanine Aminotransferase 6 U/L (0-41); Albumin Level 2.6 g/dL (3.5-5.2); Alkaline Phosphatase 183 U/L (40-130); Anion Gap 13.2 (5-19); Aspartate Amino Transferase 11 U/L (0-40); Blood Urea Nitrogen 50 mg/dL (8-23); Calcium 8.1 mg/dL (8.5-10.5); Carbon Dioxide 24 mmol/L (22-29); Chloride 98 mmol/L (98-107); Globulin 3.8 g/dL (1.3-4.6); Glomerular Filtration Rate 18.6 mL/min (90-130); Glucose 220 mg/dL (65-115); Osmolality Calculated 292 mOsm/kg (285-295); Potassium 4.2 mmol/L (3.5-5.1); Sodium 131 mmol/L (136-145); Total Bilirubin 0.3 mg/dL (0.15-1.2); Total Protein 6.4 g/dL (6.6-8.7)
--- NOTE | 2023-05-19 05:48 | PM.PN ---
Subjective Subjective: no new complaints Medications: Reviewed: Yes Vitals/I&O/Wt Last Vital Signs Temp 98.1 F 05/19/23 03:51 Pulse 85 05/19/23 03:51 Resp 16 05/19/23 04:25 BP 122/63 05/19/23 03:51 Pulse Ox 99 05/19/23 03:51 O2 Del Method Nasal Cannula 05/19/23 03:51 O2 Flow Rate 2 05/18/23 22:09 05/18/23 05/18/23 05/19/23 14:59 22:59 06:59 Intake Total 1949 900 / 2850 Output Total 350 / 350 150 / 500 Balance 1949 550 / 2500 -150 / 2350 Weight last 48 hrs Weight 133.895 kg Weight 130.226 kg Weight 128.684 kg Physical Exam Const: COMMON NORMALS: no acute distress and alert Neuro: SENSORIUM/ORIENTATION: Yes alert OTHER: + intention tremor Urinary Catheter Management: Fuentes: Cath Placed During This Visit: yes Reason for Continuing Indwelling Catheter: Assist Healing of Perineal & Sacral Wounds- Incontinent Patients Urinary Catheter Date of Insertion: 05/13/23 Urinary Catheter Time of Insertion: 19:56 Data 05/19/23 04:12 05/19/23 04:12 Micro: Microbiology 05/13/23 20:18 Blood Culture - Final Blood NO GROWTH AFTER 5 DAYS 05/13/23 19:40 Blood Culture - Final Blood NO GROWTH AFTER 5 DAYS A&P Assessment and plan (1) Acute kidney failure: Qualifiers: Acute renal failure type: with acute tubular necrosis Qualified Code(s): N17.0 - Acute kidney failure with tubular necrosis Plan 1. Acute kidney injury, oliguric, possibly related to jardiance, sepsis, ASO titer positive, but complements are normal, making post-strep GN unlikely. Cellulitis may have been caused by strep. Treatment of post strep GN is supportive care. On hemodialysis 2. Metabolic acidosis, hyperkalemia, resolved 3. Anemia: epogen at dialysis Recommend: UOP picked up , monitor , if no recovery -Next HD FridayMay 20 Attestations [facility] Necessity Statement*: [facility] Coding Level of Care Code Acute Code for g Fwd Diagnoses Acute renal failure with tubular necrosis N17.0 Acute renal failure type: with acute tubular necrosis
[2023-05-19 06:22] LABS: Glucose Point of Care 208 mg/dL (70-110)
[2023-05-19] MEDS: sennosides-docusate Tablet 1 TAB PO (08:19)
[2023-05-19] MEDS: amiodarone 200 mg Tablet PO (08:20)
[2023-05-19] MEDS: metoprolol tartrate 25 mg Tablet 12.5 MG PO ×2 (08:20→17:10)
[2023-05-19] MEDS: sucralfate 1 gm/10 mL Oral Liq UDC PO ×2 (08:21→17:10)
[2023-05-19] MEDS: insulin lispro 100 unit/1 mL SUBCUT ×3 (08:21→17:48)
[2023-05-19] MEDS: pantoprazole 40 mg SDV IVP ×2 (08:21→20:23)
[2023-05-19] MEDS: gabapentin 100 mg Capsule PO ×2 (08:21→17:10)
[2023-05-19] MEDS: linezolid premix 600 MG/300 ML PREMIX 300 MG IV ×2 (08:22→20:26)
[2023-05-19] MEDS: lidocaine 5% Patch 1 PATCH TOPICAL (08:32)
[2023-05-19] MEDS: calcium acetate 667 mg Capsule 1334 MG PO ×3 (08:32→17:09)
[2023-05-19] MEDS: aztreonam 1,000 MG in sodium chloride 0.9% (plus) 50 ML 100 MG IV ×2 (11:20→21:27)
[2023-05-19] MEDS: acetaminophen 500 mg Tablet PO (11:20)
[2023-05-19 11:49] LABS: Glucose Point of Care 183 mg/dL (70-110)
--- NOTE | 2023-05-19 13:17 | USCV_ITS ---
Geronimo Barahona Age: 62 Gender: M : 1960 Exam Date: 05/19/2023 15:56 Ordering Phys: Corby Levy MD Technologist: Maria Elena Lopez [place] [facility] [place]: COVID AND CHF BP: / HR: 84 Rhythm: Sinus Technical Quality: Technically difficult study MEASUREMENTS (Male / Female) Normal Values 2D ECHO LV Diastolic Diameter PLAX 4.8 cm 4.2 - 5.9 / 3.9 - 5.3 cm LV Systolic Diameter PLAX 3.5 cm IVS Diastolic Thickness 1.1 cm 0.6 - 1.0 / 0.6 - 0.9 cm IVS Systolic Thickness 1.6 cm LVPW Diastolic Thickness 1.5 cm 0.6 - 1.0 / 0.6 - 0.9 cm LVPW Systolic Thickness 1.7 cm LVOT Diameter 2.0 cm LV Ejection Fraction 2D Teich 51.3 % LA Diameter 4.8 cm LA Width 3.9 cm LA Height 4.4 cm RA Width 3.0 cm RA Height 4.3 cm Aorta at Sinotubular Diameter 3.7 cm IVC Diameter 1.9 cm M-MODE Aortic Annulus Diameter 3.8 cm LA Ao Ratio MM 1.4 MV E Point Septal Separation 0.5 cm DOPPLER AV Peak Velocity 177.0 cm/s LVOT Peak Velocity 120.0 cm/s AV Area Cont Eq vti 2.7 cm squared AV Area Cont Eq pk 2.2 cm squared MV Area PHT 4.8 cm squared Mitral E to A Ratio 1.4 MV E' Velocity 108.5 cm/s Mitral E to MV E' Ratio 21.6 Mitral E to LV E' Lateral Ratio 22.3 Mitral E to LV E' Septal Ratio 21.0 TR Peak Velocity 168.0 cm/s TR Peak Gradient 11.3 mmHg TR Mean Velocity 126.1 cm/s TR Mean Gradient 6.9 mmHg TR Velocity Time Integral 35.3 cm TV Peak E Velocity 61.0 cm/s Right Atrial Pressure 3.0 mmHg Pulmonary Artery Systolic Pressu 14.3 mmHg RV Acceleration Time 0.2 s RV Ejection Time 0.3 s RV AcT/ET 0.5 FINDINGS Left Ventricle Normal left ventricular size and systolic function, EF 60%.Mild left ventricular hypertrophy. No regional wall motion abnormalities. Right Ventricle Possibly of normal size and ejection fraction. Right Atrium Possibly normal size Left Atrium Mildly increased left atrial size. Mitral Valve Thickened mitral valve. Moderate mitral annular calcification. Aortic Valve Thickened aortic valve. Aortic valve sclerosis. Tricuspid Valve Trace tricuspid valve regurgitation. Pulmonic Valve No gross abnormalities noted Pericardium No pericardial effusion. Aorta Normal aortic annulus size. IVC Inferior vena cava not visualized. CONCLUSIONS Normal left ventricular size and systolic function, EF 60%. Mild left ventricular hypertrophy. No regional wall motion abnormalities. Thickened mitral valve. Moderate mitral annular calcification. Aortic valve sclerosis. Trace tricuspid valve regurgitation. Technically difficult study because there is no apical window Given the contrast echo is a suboptimal quality. (Echo contrast - Optison was used to delineate the endocardium and to estimate the LV ejection fraction) Dr Ramesh Ryan MD [facility] (Electronically Signed) Final Date: 20 May 2023 17:58 S
--- NOTE | 2023-05-19 13:33 | P.PN_ITS ---
Subjective 2 Subjective: Hospital course, labs appreciated. On examination laying comfortably in bed, denies any new complaints. Denies any nausea vomiting, headache. Febrile last 24 hours with Tmax of 100 Fahrenheit. States usually at home he is able to get around by himself. Unable to do so currently. Reviewed possible counseling to SNF on discharge. Patient would like to go home if possible. Blood work appreciated. Documented urine output of around 800 cc in last 24 hours. Medications: Reviewed: Yes Vitals/I&O/Wt Last Vital Signs Temp 100.0 F H 05/19/23 12:00 Pulse 81 05/19/23 13:10 Resp 18 05/19/23 13:10 BP 106/54 05/19/23 12:00 Pulse Ox 96 05/19/23 13:10 O2 Del Method Nasal Cannula 05/19/23 13:10 O2 Flow Rate 2 05/19/23 13:10 05/18/23 05/19/23 05/19/23 22:59 06:59 14:59 Intake Total 900 / 2850 50 / 2900 1140 / 1140 Output Total 350 / 350 150 / 500 300 / 300 Balance 550 / 2500 -100 / 2400 840 / 840 Weight last 48 hrs Weight 133.895 kg Weight 130.226 kg Weight 128.684 kg Physical Exam 2 Narrative: General: No acute distress, AO x3, NC oxygen supplementation HEENT: PERRLA, pupils bilaterally equal and reactive Chest: Normal vesicular breath sounds all over lung staples with occasional rhonchi and fine crackles. CVS: S1-S2 regular, no murmurs, no tachycardia, no gallops, no rubs Abdomen: Soft, nontender, no organomegaly, bowel sounds present, morbidly obese Neuro: No focal deficits, no facial deformity, AO x3, power 5/5 in all limbs Skin: OTHER: h Urinary Catheter Management: Fuentes: Cath Placed During This Visit: yes Reason for Continuing Indwelling Catheter: Other Urinary Catheter Date of Insertion: 05/13/23 Urinary Catheter Time of Insertion: 19:56 Data 05/19/23 04:12 05/19/23 04:12 Micro: Microbiology 05/13/23 20:18 Blood Culture - Final Blood NO GROWTH AFTER 5 DAYS 05/13/23 19:40 Blood Culture - Final Blood NO GROWTH AFTER 5 DAYS A&P Assessment and plan (1) Acute kidney failure: Qualifiers: Acute renal failure type: with acute tubular necrosis Qualified Code(s): N17.0 - Acute kidney failure with tubular necrosis (2) Hemodialysis status: (3) Sepsis: (4) Cellulitis and abscess of foot: (5) Chronic respiratory failure with hypoxia: (6) CHF (congestive heart failure): (7) COVID-19: (8) Afib: (9) Back pain: Qualifiers: Back pain laterality: bilateral Back pain location: low back pain C hronicity: acute Sciatica presence: without sciatica Qualified Code(s): M54.50 - Low back pain, unspecified (10) Accidental fall: Qualifiers: Encounter type: initial encounter Qualified Code(s): W19.XXXA - Unspecified fall, initial encounter (11) Compression fracture of L2 lumbar vertebra: Qualifiers: Encounter type: initial encounter Qualified Code(s): S32.020A - Wedge compression fracture of second lumbar vertebra, initial encounter for closed fracture (12) Closed compression fracture of L4 vertebra: Qualifiers: Encounter type: initial encounter Qualified Code(s): S32.040A - Wedge compression fracture of fourth lumbar vertebra, initial encounter for closed fracture (13) Anasarca: (14) Metabolic acidemia: (15) Wide QRS ventricular tachycardia: (16) Prolonged QT interval: (17) Acute hyperkalemia: Plan Acute renal failure: Getting dialysis through clinical dialysis catheter. Last on Friday. Appreciate nephrology recommendations. Monitor urine output daily. Monitor CMP daily. Electrolyte appreciated. Changed to renal dialysis diet. Medical reconciliation done for nephrotoxic drugs. Appreciate urine lites, ZEYNEP panel. Check echocardiogram. Sepsis: Present on admission. Resolved currently. Appreciate blood cultures. Most likely in setting of extensive cellulitis. Continue with linezolid and aztreonam to finish a 7-day course. Patient spiking fever on and off for last couple of days. Check respiratory viral panel. Extensive cellulitis: Continue wound care. May benefit from compression therapy. Antibiotics as above. A-fib without RVR: Currently rate controlled. Continue with home dose of amiodarone, metoprolol. Restart home dose of Eliquis. Back pain related to compression fracture L2 L4. requested TLSO brace. Continue local control with lidocaine. As needed Tylenol, Percocet, Dilaudid IV as needed for severe breakthrough. Bowel regimen Type 2 diabetes mellitus: Check A1c. Insulin sliding scale. Full code PT evaluation. Renal diabetic dialysis diet. Eliquis will suffice as DVT prophylaxis Protonix for PUD prophylaxis Discharge plan: Patient seems severely physically deconditioned. Will plan for discharge as per PT evaluation. Attestations 2 Medical Necessity Statement*: Requires further hospitalization for management of acute renal failure requiring temporary dialysis, lower limb cellulitis Diagnoses Acute renal failure with tubular necrosis N17.0 Acute renal failure type: with acute tubular necrosis Hemodialysis status Z99.2 Sepsis A41.9 Cellulitis and abscess of foot L03.119; L02.619 Chronic respiratory failure with hypoxia J96.11 CHF (congestive heart failure) I50.9 COVID-19 U07.1 Afib I48.91 Back pain M54.50 Back pain laterality: bilateral Back pain location: low back pain Chronicity: acute Sciatica presence: without sciatica Accidental fall W19.XXXA Encounter type: initial encounter Compression fracture of L2 lumbar vertebra S32.020A Encounter type: initial encounter Closed compression fracture of L4 vertebra S32.040A Encounter type: initial encounter Anasarca R60.1 Metabolic acidemia E87.20 Wide QRS ventricular tachycardia I47.20 Prolonged QT interval R94.31 Acute hyperkalemia E87.5
[2023-05-19 15:14] LABS: Adenovirus Not Detected (NOT DETECT); Chlamydia Pneumoniae Not Detected (NOT DETECT); Coronavirus 229E,HKU1,NL63,OC4 Not Detected (NOT DETECT); Human Metapneumovirus Not Detected (NOT DETECT); Human Rhinovirus/Enterovirus Not Detected (NOT DETECT); Influenza A Not Detected (NOT DETECT); Influenza A H1 Not Detected (NOT DETECT); Influenza A H1-2009 Not Detected (NOT DETECT); Influenza A H3 Not Detected (NOT DETECT); Influenza B Not Detected (NOT DETECT); Mycoplasma Pneumoniae Not Detected (NOT DETECT); Parainfluenza Virus Type 1 Not Detected (NOT DETECT); Parainfluenza Virus Type 2 Not Detected (NOT DETECT); Parainfluenza Virus Type 3 Not Detected (NOT DETECT); Parainfluenza Virus Type 4 Not Detected (NOT DETECT); Respiratory Syncytial Virus A Not Detected (NOT DETECT); Respiratory Syncytial Virus B Not Detected (NOT DETECT)
[2023-05-19 15:19] LABS: SARS-COV-2 Detected (NOT DETECT)
[2023-05-19 15:37] LABS: D Dimer 2.89 ug/mLFEU (0-0.59)
[2023-05-19 16:01] LABS: Procalcitonin 0.51 ng/mL (0-0.5); Thyroid Stimulating Hormone 0.86 uIU/mL (0.27-4.20); Vitamin B12 561 pg/mL (232-1245)
[2023-05-19 16:12] LABS: Iron 21 ug/dL (59-158); Percent Saturation 17.5 % (20-50); Total Iron Binding Capacity 120 mcg/dl; Unsaturated Iron Binding 99 ug/dL (112-347)
[2023-05-19] MEDS: perflutren protein-a microsphr 0.22 mg/mL SDV 3 mL IV (16:52)
[2023-05-19 17:44] LABS: Glucose Point of Care 158 mg/dL (70-110)
[2023-05-19] MEDS: insulin glargine 100 units/1 mL 5 UNIT SUBCUT (21:27)
[2023-05-19 21:50] LABS: Glucose Point of Care 201 mg/dL (70-110)
[2023-05-20] VITALS (9 sets, daily range): BP systolic 96–123; BP diastolic 41–59; PULSE 70–88; RESP 16–20; TEMP 36.7–37; O2SAT 94–98
[2023-05-20] MEDS: sodium chloride 0.9% 1,000 ML 30 ML IV (02:39)
--- NOTE | 2023-05-20 04:36 | P.PN_ITS ---
Subjective 2 Subjective: no new c/o Medications: Reviewed: Yes Vitals/I&O/Wt Last Vital Signs Temp 98.2 F 05/19/23 23:26 Pulse 81 05/19/23 23:26 Resp 17 05/19/23 23:26 BP 118/52 05/19/23 23:26 Pulse Ox 90 05/19/23 23:26 O2 Del Method Nasal Cannula 05/19/23 23:26 O2 Flow Rate 2 05/19/23 23:26 05/19/23 05/19/23 05/20/23 14:59 22:59 06:59 Intake Total 1140 / 1140 1360 / 2500 1000 / 3500 Output Total 300 / 300 450 / 750 700 / 1450 Balance 840 / 840 910 / 1750 300 / 2050 Weight last 48 hrs Weight 133.895 kg Weight 130.226 kg Physical Exam 2 Const: COMMON NORMALS: no acute distress and alert Neuro: SENSORIUM/ORIENTATION: Yes alert OTHER: + intention tremor Urinary Catheter Management: Fuentes: Cath Placed During This Visit: yes Reason for Continuing Indwelling Catheter: Assist Healing of Perineal & Sacral Wounds- Incontinent Patients Urinary Catheter Date of Insertion: 05/13/23 Urinary Catheter Time of Insertion: 19:56 Data 05/20/23 04:58 05/20/23 04:58 A&P Assessment and plan (1) Acute kidney failure: Qualifiers: Acute renal failure type: with acute tubular necrosis Qualified Code(s): N17.0 - Acute kidney failure with tubular necrosis Plan 1. Acute kidney injury, oliguric, possibly related to jardiance, sepsis, ASO titer positive, but complements are normal, making post-strep GN unlikely. Cellulitis may have been caused by strep. Treatment of post strep GN is supportive care. s/p hemodialysis friday , hold off futher hD and monitor for recovery , CR Better today 2. Metabolic acidosis, hyperkalemia, resolved 3. Anemia: s/p epogen Attestations 2 Medical Necessity Statement*: per medicine Coding Level of Care Code Acute Code for Chg Fwd Diagnoses Acute renal failure with tubular necrosis N17.0 Acute renal failure type: with acute tubular necrosis
[2023-05-20 05:45] LABS: Basophils % 0.3 %; Eosinophils # 0.4 10^3/uL (0.0-0.8); Eosinophils % 5.7 %; Hematocrit 27.2 % (37-53); Lymphocytes # 0.3 10^3/uL (0.8-4.8); Lymphocytes % 5.2 %; Mean Corpuscular HGB Conc 30.1 g/dL (30-55); Mean Corpuscular Volume 99.6 fl (82-101); Mean Platelet Volume 9.5 fL (7.4-10.4); Monocytes # 0.7 10^3/uL (0.2-0.9); Monocytes % 10.6 %; Neutrophils # 4.64 10^3/uL (1.8-7.7); Neutrophils % 76.1 %; Nucleated Red Blood Cells % 0 %; Platelet Count 199 10^3/cmm (157-399); Red Blood Count 2.73 10^6/uL (3.85-5.65); Red Cell Distribution Width 16.7 % (12.1-15.1); White Blood Count 6.11 10^3/uL (3.29-11.43)
[2023-05-20 06:13] LABS: Chol HDL Ratio 2.59 mg/dL (1.0-5.00); Cholesterol 114 mg/dL (0-200); HDL Cholesterol 44 mg/dL (60-100); LDL Cholesterol Calculated 52 mg/dL (50-129); Magnesium 1.8 mg/dL (1.7-2.3); Phosphorus 1.6 mg/dL (2.5-4.5); Triglycerides 90 mg/dL (0-150); VLDL Cholestrol Calculation 18 mg/dL (0-30)
[2023-05-20 06:14] LABS: Alanine Aminotransferase 8 U/L (0-41); Albumin Level 2.5 g/dL (3.5-5.2); Alkaline Phosphatase 170 U/L (40-130); Anion Gap 12.3 (5-19); Aspartate Amino Transferase 18 U/L (0-40); Blood Urea Nitrogen 55 mg/dL (8-23); Calcium 8.2 mg/dL (8.5-10.5); Carbon Dioxide 26 mmol/L (22-29); Chloride 97 mmol/L (98-107); Glomerular Filtration Rate 20.7 mL/min (90-130); Glucose 134 mg/dL (65-115); Osmolality Calculated 289 mOsm/kg (285-295); Potassium 4.3 mmol/L (3.5-5.1); Sodium 131 mmol/L (136-145); Total Bilirubin 0.2 mg/dL (0.15-1.2); Total Protein 5.5 g/dL (6.6-8.7)
[2023-05-20 06:20] LABS: Folate Level 3.7 ng/mL (4.5-32.2)
[2023-05-20 06:35] LABS: Estmated Average Glucose 131; Hemoglobin A1C 6.2 % (4.0-6.0)
[2023-05-20 06:43] LABS: Glucose Point of Care 135 mg/dL (70-110)
[2023-05-20] MEDS: amiodarone 200 mg Tablet PO (10:45)
[2023-05-20] MEDS: calcium acetate 667 mg Capsule 1334 MG PO ×3 (10:45→17:33)
[2023-05-20] MEDS: sucralfate 1 gm/10 mL Oral Liq UDC PO ×2 (10:45→17:32)
[2023-05-20] MEDS: metoprolol tartrate 25 mg Tablet 12.5 MG PO ×2 (10:45→17:32)
[2023-05-20] MEDS: gabapentin 100 mg Capsule PO ×2 (10:45→17:33)
[2023-05-20] MEDS: sennosides-docusate Tablet 1 TAB PO (10:45)
[2023-05-20] MEDS: lidocaine 5% Patch 1 PATCH TOPICAL (10:46)
[2023-05-20] MEDS: aztreonam 1,000 MG in sodium chloride 0.9% (plus) 50 ML 100 MG IV (10:48)
[2023-05-20] MEDS: pantoprazole 40 mg SDV IVP ×2 (10:50→21:53)
[2023-05-20] MEDS: linezolid premix 600 MG/300 ML PREMIX 300 MG IV (10:54)
[2023-05-20 12:18] LABS: Glucose Point of Care 198 mg/dL (70-110)
[2023-05-20] MEDS: insulin lispro 100 unit/1 mL SUBCUT ×2 (12:52→17:33)
--- NOTE | 2023-05-20 14:00 | P.PN_ITS ---
Subjective 2 Subjective: No acute vents overnight. Has remained hemodynamic stable. Tmax in last 24 hours 100 Fahrenheit yesterday afternoon. Continues to remain on 2 L of oxygen supplement. Document urine output of about 1900 cc in last 24 hours. Medications: Reviewed: Yes Vitals/I&O/Wt Last Vital Signs Temp 98.6 F 05/20/23 11:52 Pulse 88 05/20/23 11:52 Resp 20 H 05/20/23 11:52 BP 115/50 05/20/23 11:52 Pulse Ox 94 05/20/23 11:52 O2 Del Method Nasal Cannula 05/20/23 11:52 O2 Flow Rate 2 05/20/23 07:34 05/19/23 05/20/23 05/20/23 22:59 06:59 14:59 Intake Total 1360 / 2500 1000 / 3500 1070 / 1070 Output Total 450 / 750 1200 / 1950 Balance 910 / 1750 -200 / 1550 1070 / 1070 Weight last 48 hrs Weight 134.433 kg Weight 133.895 kg Physical Exam 2 Narrative: General: No acute distress, AO x3, NC oxygen supplementation HEENT: PERRLA, pupils bilaterally equal and reactive Chest: Normal vesicular breath sounds all over lung staples with occasional rhonchi and fine crackles. CVS: S1-S2 regular, no murmurs, no tachycardia, no gallops, no rubs Abdomen: Soft, nontender, no organomegaly, bowel sounds present, morbidly obese Neuro: No focal deficits, no facial deformity, AO x3, power 5/5 in all limbs Skin: OTHER: h Urinary Catheter Management: Fuentes: Cath Placed During This Visit: yes Reason for Continuing Indwelling Catheter: Assist Healing of Perineal & Sacral Wounds- Incontinent Patients Urinary Catheter Date of Insertion: 05/13/23 Urinary Catheter Time of Insertion: 19:56 Data 05/20/23 04:58 05/20/23 04:58 A&P Assessment and plan (1) Acute kidney failure: Qualifiers: Acute renal failure type: with acute tubular necrosis Qualified Code(s): N17.0 - Acute kidney failure with tubular necrosis (2) Hemodialysis status: (3) Sepsis: (4) Cellulitis and abscess of foot: (5) Chronic respiratory failure with hypoxia: (6) CHF (congestive heart failure): (7) COVID-19: (8) Afib: (9) Back pain: Qualifiers: Back pain laterality: bilateral Back pain location: low back pain C hronicity: acute Sciatica presence: without sciatica Qualified Code(s): M54.50 - Low back pain, unspecified (10) Accidental fall: Qualifiers: Encounter type: initial encounter Qualified Code(s): W19.XXXA - Unspecified fall, initial encounter (11) Compression fracture of L2 lumbar vertebra: Qualifiers: Encounter type: initial encounter Qualified Code(s): S32.020A - Wedge compression fracture of second lumbar vertebra, initial encounter for closed fracture (12) Closed compression fracture of L4 vertebra: Qualifiers: Encounter type: initial encounter Qualified Code(s): S32.040A - Wedge compression fracture of fourth lumbar vertebra, initial encounter for closed fracture (13) Anasarca: (14) Metabolic acidemia: (15) Wide QRS ventricular tachycardia: (16) Prolonged QT interval: (17) Acute hyperkalemia: Plan Acute renal failure: Getting dialysis through clinical dialysis catheter. Last on Friday. Appreciate nephrology recommendations. Monitor urine output daily. Monitor CMP daily. Electrolyte appreciated. Changed to renal dialysis diet. Medical reconciliation done for nephrotoxic drugs. Appreciate urine lites, ZEYNEP panel. Check echocardiogram. Sepsis: Present on admission. Resolved currently. Appreciate blood cultures. Most likely in setting of extensive cellulitis. Continue with linezolid and aztreonam to finish a 7-day course. Patient spiking fever on and off for last couple of days. Check respiratory viral panel. Extensive cellulitis: Continue wound care. May benefit from compression therapy. Antibiotics as above. A-fib without RVR: Currently rate controlled. Continue with home dose of amiodarone, metoprolol. Restart home dose of Eliquis. Back pain related to compression fracture L2 L4. requested TLSO brace. Continue local control with lidocaine. As needed Tylenol, Percocet, Dilaudid IV as needed for severe breakthrough. Bowel regimen Type 2 diabetes mellitus: Check A1c. Insulin sliding scale. Full code PT evaluation. Renal diabetic dialysis diet. Eliquis will suffice as DVT prophylaxis Protonix for PUD prophylaxis Plan for the day: Appreciate nephrology recommendations. For now continue to monitor BMP daily. Urine output improving. Plan to hold off on dialysis for now. Discussed in detail with the patient for need to work with physical therapy to get out of bed. Depending on physical therapy evaluation can plan for further safe discharge planning. Patient wants to go home. Discussed that is important for patient to show motivation with physical therapy for safe discharge. COVID-19 positive. Mild disease. Remains on home 3 L of oxygen supplementation. Will confirm with nephrology if can be transitioned over to oral Paxlovid given renal dysfunction. Interaction with chronic medications checked. Goal blood pressure less than 140/90 mmHg. Blood pressure is controlled for now. Continue with IV antibiotics for 7 days overall with last dose on 05/20 evening. Discharge plan: Patient seems severely physically deconditioned. Will plan for discharge as per PT evaluation. Attestations 2 Medical Necessity Statement*: Requires further hospitalization for management of acute renal failure requiring temporary dialysis, malaise in setting of COVID-19 Diagnoses Acute renal failure with tubular necrosis N17.0 Acute renal failure type: with acute tubular necrosis Hemodialysis status Z99.2 Sepsis A41.9 Cellulitis and abscess of foot L03.119; L02.619 Chronic respiratory failure with hypoxia J96.11 CHF (congestive heart failure) I50.9 COVID-19 U07.1 Afib I48.91 Back pain M54.50 Back pain laterality: bilateral Back pain location: low back pain Chronicity: acute Sciatica presence: without sciatica Accidental fall W19.XXXA Encounter type: initial encounter Compression fracture of L2 lumbar vertebra S32.020A Encounter type: initial encounter Closed compression fracture of L4 vertebra S32.040A Encounter type: initial encounter Anasarca R60.1 Metabolic acidemia E87.20 Wide QRS ventricular tachycardia I47.20 Prolonged QT interval R94.31 Acute hyperkalemia E87.5
--- NOTE | 2023-05-20 14:51 | PC.NURSE ---
Pt up in recliner for approx. 2.5 hours. Transferred w/ sit to stand, tolerated well.
[2023-05-20] MEDS: oxyCODONE-APAP 5-325 mg Tablet 1 TAB PO ×2 (15:52→21:53)
[2023-05-20 16:30] LABS: Glucose Point of Care 146 mg/dL (70-110)
[2023-05-20 21:26] LABS: Glucose Point of Care 296 mg/dL (70-110)
[2023-05-20] MEDS: insulin glargine 100 units/1 mL 5 UNIT SUBCUT (21:53)
[2023-05-21] VITALS (13 sets, daily range): BP systolic 95–108; BP diastolic 44–57; PULSE 67–81; RESP 16–20; TEMP 36.7–37.1; O2SAT 94–97
[2023-05-21] MEDS: oxyCODONE-APAP 5-325 mg Tablet 1 TAB PO ×4 (03:40→21:06)
[2023-05-21 06:15] LABS: Basophils % 0.2 %; Eosinophils # 0.4 10^3/uL (0.0-0.8); Eosinophils % 7.1 %; Hematocrit 27.1 % (37-53); Lymphocytes # 0.3 10^3/uL (0.8-4.8); Lymphocytes % 6.2 %; Mean Corpuscular HGB Conc 30.3 g/dL (30-55); Mean Corpuscular Hemoglobin 30.5 pg (27-33); Mean Corpuscular Volume 100.7 fl (82-101); Mean Platelet Volume 9.6 fL (7.4-10.4); Monocytes # 0.5 10^3/uL (0.2-0.9); Monocytes % 10.1 %; Neutrophils % 74.7 %; Nucleated Red Blood Cells % 0 %; Platelet Count 210 10^3/cmm (157-399); Red Blood Count 2.69 10^6/uL (3.85-5.65); Red Cell Distribution Width 16.9 % (12.1-15.1); White Blood Count 5.35 10^3/uL (3.29-11.43)
--- NOTE | 2023-05-21 06:15 | P.PN_ITS ---
Subjective 2 Subjective: no new complaints Medications: Reviewed: Yes Vitals/I&O/Wt Last Vital Signs Temp 98.4 F 05/21/23 03:42 Pulse 81 05/21/23 03:42 Resp 17 05/21/23 03:42 BP 97/55 05/21/23 03:42 Pulse Ox 94 05/21/23 03:42 O2 Del Method Nasal Cannula 05/21/23 03:42 O2 Flow Rate 2 05/21/23 03:42 05/20/23 05/20/23 05/21/23 14:59 22:59 06:59 Intake Total 1070 / 1070 600 / 1670 Output Total 750 / 750 200 / 950 Balance 1070 / 1070 -150 / 920 -200 / 720 Weight last 48 hrs Weight 135.171 kg Weight 134.433 kg Physical Exam 2 Const: COMMON NORMALS: no acute distress and alert Neuro: SENSORIUM/ORIENTATION: Yes alert OTHER: + intention tremor Urinary Catheter Management: Fuentes: Cath Placed During This Visit: yes Reason for Continuing Indwelling Catheter: Assist Healing of Perineal & Sacral Wounds- Incontinent Patients Urinary Catheter Date of Insertion: 05/13/23 Urinary Catheter Time of Insertion: 19:56 Data 05/21/23 05:44 05/21/23 05:44 A&P Assessment and plan (1) Acute kidney failure: Qualifiers: Acute renal failure type: with acute tubular necrosis Qualified Code(s): N17.0 - Acute kidney failure with tubular necrosis Plan 1. Acute kidney injury, oliguric, possibly related to jardiance, sepsis, ASO titer positive, but complements are normal, making post-strep GN unlikely. Cellulitis may have been caused by strep. Treatment of post strep GN is supportive care. s/p hemodialysis friday , holding off futher hD and monitor for recovery , Cr trending down slowly , added IV albumin and IV lsix today 2. Metabolic acidosis, hyperkalemia, resolved 3. Anemia: s/p epogen Attestations 2 Medical Necessity Statement*: per medicine Coding Level of Care Code Acute Code for g Fwd Diagnoses Acute renal failure with tubular necrosis N17.0 Acute renal failure type: with acute tubular necrosis
[2023-05-21 06:29] LABS: Alanine Aminotransferase 9 U/L (0-41); Albumin Level 2.5 g/dL (3.5-5.2); Alkaline Phosphatase 174 U/L (40-130); Anion Gap 13.2 (5-19); Aspartate Amino Transferase 20 U/L (0-40); Blood Urea Nitrogen 57 mg/dL (8-23); Calcium 8.4 mg/dL (8.5-10.5); Carbon Dioxide 25 mmol/L (22-29); Chloride 100 mmol/L (98-107); Glomerular Filtration Rate 21.5 mL/min (90-130); Glucose 131 mg/dL (65-115); Osmolality Calculated 296 mOsm/kg (285-295); Potassium 4.2 mmol/L (3.5-5.1); Sodium 134 mmol/L (136-145); Total Bilirubin 0.2 mg/dL (0.15-1.2); Total Protein 5.5 g/dL (6.6-8.7)
[2023-05-21 06:31] LABS: Phosphorus 1.8 mg/dL (2.5-4.5)
[2023-05-21 06:44] LABS: Glucose Point of Care 157 mg/dL (70-110)
[2023-05-21] MEDS: sennosides-docusate Tablet 1 TAB PO (08:44)
[2023-05-21] MEDS: gabapentin 100 mg Capsule PO ×2 (08:44→18:00)
[2023-05-21] MEDS: calcium acetate 667 mg Capsule 1334 MG PO ×3 (08:44→18:00)
[2023-05-21] MEDS: sucralfate 1 gm/10 mL Oral Liq UDC PO ×2 (08:44→18:01)
[2023-05-21] MEDS: amiodarone 200 mg Tablet PO (08:45)
[2023-05-21] MEDS: insulin lispro 100 unit/1 mL SUBCUT ×2 (08:45→13:02)
[2023-05-21] MEDS: FUROsemide 10 mg/mL SDV 10mL 60 MG IVP (10:23)
[2023-05-21] MEDS: pantoprazole 40 mg SDV IVP ×2 (10:23→21:06)
[2023-05-21] MEDS: albumin 25 G/100 ML BAG 60 G IV ×2 (10:24→18:10)
[2023-05-21] MEDS: metoprolol tartrate 25 mg Tablet 12.5 MG PO ×2 (10:31→18:00)
[2023-05-21 11:45] LABS: Glucose Point of Care 198 mg/dL (70-110)
[2023-05-21 12:15] LABS: Methicillin-Resist S.aureu PCR DETECTED (NOT DETECTED)
--- NOTE | 2023-05-21 12:46 | P.PN_ITS ---
Subjective 2 Subjective: No new complaints. Patient has remained hemodynamically stable and afebrile. Sat up in chair yesterday. Did require assistance from nursing staff during the transfer. Legs have compression wrap with physical therapy. Urine output of around 1 L in last 24 hours. Medications: Reviewed: Yes Vitals/I&O/Wt Last Vital Signs Temp 98.2 F 05/21/23 07:12 Pulse 75 05/21/23 11:22 Resp 17 05/21/23 11:22 BP 99/50 05/21/23 11:22 Pulse Ox 94 05/21/23 11:22 O2 Del Method Nasal Cannula 05/21/23 11:22 O2 Flow Rate 2 05/21/23 08:00 05/20/23 05/21/23 05/21/23 22:59 06:59 14:59 Intake Total 600 / 1670 1340 / 1340 Output Total 750 / 750 200 / 950 Balance -150 / 920 -200 / 720 1340 / 1340 Weight last 48 hrs Weight 135.171 kg Weight 134.433 kg Physical Exam 2 Narrative: General: No acute distress, AO x3, NC oxygen supplementation HEENT: PERRLA, pupils bilaterally equal and reactive Chest: Normal vesicular breath sounds all over lung staples with occasional rhonchi and fine crackles. CVS: S1-S2 regular, no murmurs, no tachycardia, no gallops, no rubs Abdomen: Soft, nontender, no organomegaly, bowel sounds present, morbidly obese Neuro: No focal deficits, no facial deformity, AO x3, power 5/5 in all limbs Urinary Catheter Management: Fuentes: Cath Placed During This Visit: yes Reason for Continuing Indwelling Catheter: Assist Healing of Perineal & Sacral Wounds- Incontinent Patients Urinary Catheter Date of Insertion: 05/13/23 Urinary Catheter Time of Insertion: 19:56 Data 05/21/23 05:44 05/21/23 05:44 A&P Assessment and plan (1) Acute kidney failure: Qualifiers: Acute renal failure type: with acute tubular necrosis Qualified Code(s): N17.0 - Acute kidney failure with tubular necrosis (2) Hemodialysis status: (3) Sepsis: (4) Cellulitis and abscess of foot: (5) Chronic respiratory failure with hypoxia: (6) CHF (congestive heart failure): (7) COVID-19: (8) Afib: (9) Back pain: Qualifiers: Back pain laterality: bilateral Back pain location: low back pain C hronicity: acute Sciatica presence: without sciatica Qualified Code(s): M54.50 - Low back pain, unspecified (10) Accidental fall: Qualifiers: Encounter type: initial encounter Qualified Code(s): W19.XXXA - Unspecified fall, initial encounter (11) Compression fracture of L2 lumbar vertebra: Qualifiers: Encounter type: initial encounter Qualified Code(s): S32.020A - Wedge compression fracture of second lumbar vertebra, initial encounter for closed fracture (12) Closed compression fracture of L4 vertebra: Qualifiers: Encounter type: initial encounter Qualified Code(s): S32.040A - Wedge compression fracture of fourth lumbar vertebra, initial encounter for closed fracture (13) Anasarca: (14) Metabolic acidemia: (15) Wide QRS ventricular tachycardia: (16) Prolonged QT interval: (17) Acute hyperkalemia: Plan Acute renal failure: Getting dialysis through clinical dialysis catheter. Last on Friday. Appreciate nephrology recommendations. Monitor urine output daily. Monitor CMP daily. Electrolyte appreciated. Changed to renal dialysis diet. Medical reconciliation done for nephrotoxic drugs. Appreciate urine lites, ZEYNEP panel. Check echocardiogram. Sepsis: Present on admission. Resolved currently. Appreciate blood cultures. Most likely in setting of extensive cellulitis. Continue with linezolid and aztreonam to finish a 7-day course. Patient spiking fever on and off for last couple of days. Check respiratory viral panel. Extensive cellulitis: Continue wound care. May benefit from compression therapy. Antibiotics as above. A-fib without RVR: Currently rate controlled. Continue with home dose of amiodarone, metoprolol. Restart home dose of Eliquis. Back pain related to compression fracture L2 L4. requested TLSO brace. Continue local control with lidocaine. As needed Tylenol, Percocet, Dilaudid IV as needed for severe breakthrough. Bowel regimen Type 2 diabetes mellitus: Check A1c. Insulin sliding scale. Full code PT evaluation. Renal diabetic dialysis diet. Eliquis will suffice as DVT prophylaxis Protonix for PUD prophylaxis Plan for the day: Finished course of IV antibiotics on 05/20 for lower limb cellulitis. Creatinine slightly improving. Urine output steady. Appreciate nephrology recommendations. For now continue with expectant therapy and holding off on dialysis. Will discuss further regarding discharge plan. Out of bed to chair again today. Continue with physical therapy. Continue lower limb lymphedema wraps. Will plan for further wound care. Patient will most likely need to follow-up with wound care as an outpatient. Holding off on Paxlovid for now given renal dysfunction and slight improvement. Patient has mild COVID without worsening symptoms and oxygen requirements. Will follow-up inflammatory markers including CRP. Does have iron deficiency anemia. Hemoglobin stable at around 8.2. Start on IV iron supplementation. Given COVID-19 and poor mobility will restart heparin 5000 every 12 hourly while monitoring hemoglobin. Attestations 2 Medical Necessity Statement*: Requires further hospitalization for management of lower limb cellulitis, acute renal failure requiring temporary dialysis while renal functions and urine output are further monitored to determine long-term dialysis need, mild COVID-19 while safe discharge planning is sought Diagnoses Acute renal failure with tubular necrosis N17.0 Acute renal failure type: with acute tubular necrosis Hemodialysis status Z99.2 Sepsis A41.9 Cellulitis and abscess of foot L03.119; L02.619 Chronic respiratory failure with hypoxia J96.11 CHF (congestive heart failure) I50.9 COVID-19 U07.1 Afib I48.91 Back pain M54.50 Back pain laterality: bilateral Back pain location: low back pain Chronicity: acute Sciatica presence: without sciatica Accidental fall W19.XXXA Encounter type: initial encounter Compression fracture of L2 lumbar vertebra S32.020A Encounter type: initial encounter Closed compression fracture of L4 vertebra S32.040A Encounter type: initial encounter Anasarca R60.1 Metabolic acidemia E87.20 Wide QRS ventricular tachycardia I47.20 Prolonged QT interval R94.31 Acute hyperkalemia E87.5
[2023-05-21 12:56] LABS: Reticulocyte % 1.1 % (0.5-2.0)
[2023-05-21 13:33] LABS: C Reactive Protein 59.5 mg/L (0.0-4.9)
[2023-05-21] MEDS: iron sucrose 200 MG in sodium chloride 0.9% (100 ml) 100 ML 220 MG IV (14:14)
[2023-05-21 17:00] LABS: Glucose Point of Care 137 mg/dL (70-110)
[2023-05-21 20:53] LABS: Glucose Point of Care 130 mg/dL (70-110)
[2023-05-21] MEDS: insulin glargine 100 units/1 mL 5 UNIT SUBCUT (21:06)
[2023-05-21] MEDS: heparin 5,000 unit/mL INJ 1 mL 5000 UNIT SUBCUT (23:59)
[2023-05-22] VITALS (9 sets, daily range): BP systolic 107–119; BP diastolic 45–62; PULSE 65–81; RESP 16–20; TEMP 36.4–37.1; O2SAT 92–97
[2023-05-22] MEDS: albumin 25 G/100 ML BAG 60 G IV ×3 (00:01→17:58)
[2023-05-22 05:41] LABS: Basophils % 0.2 %; Eosinophils # 0.5 10^3/uL (0.0-0.8); Eosinophils % 10.7 %; Hematocrit 25.8 % (37-53); Lymphocytes # 0.4 10^3/uL (0.8-4.8); Lymphocytes % 8.7 %; Mean Corpuscular HGB Conc 29.8 g/dL (30-55); Mean Corpuscular Hemoglobin 30.2 pg (27-33); Mean Corpuscular Volume 101.2 fl (82-101); Mean Platelet Volume 9.4 fL (7.4-10.4); Monocytes # 0.4 10^3/uL (0.2-0.9); Monocytes % 9.2 %; Neutrophils # 3.11 10^3/uL (1.8-7.7); Neutrophils % 69.6 %; Nucleated Red Blood Cells % 0 %; Platelet Count 209 10^3/cmm (157-399); Red Blood Count 2.55 10^6/uL (3.85-5.65); Red Cell Distribution Width 16.9 % (12.1-15.1); White Blood Count 4.47 10^3/uL (3.29-11.43)
--- NOTE | 2023-05-22 05:45 | P.PN_ITS ---
Subjective 2 Subjective: no new complaints Medications: Reviewed: Yes Vitals/I&O/Wt Last Vital Signs Temp 97.6 F 05/22/23 04:00 Pulse 70 05/22/23 04:00 Resp 18 05/22/23 04:00 BP 107/61 05/22/23 04:00 Pulse Ox 96 05/22/23 04:00 O2 Del Method Nasal Cannula 05/22/23 04:00 O2 Flow Rate 2 05/21/23 23:57 05/21/23 05/21/23 05/22/23 14:59 22:59 06:59 Intake Total 1810 / 1810 340 / 2150 100 / 2250 Output Total 1100 / 1100 250 / 1350 Balance 1810 / 1810 -760 / 1050 -150 / 900 Weight last 48 hrs Weight 135.284 kg Weight 135.171 kg Physical Exam 2 Const: COMMON NORMALS: no acute distress and alert Neuro: SENSORIUM/ORIENTATION: Yes alert OTHER: + intention tremor Urinary Catheter Management: Fuentes: Cath Placed During This Visit: yes Reason for Continuing Indwelling Catheter: Other Urinary Catheter Date of Insertion: 05/13/23 Urinary Catheter Time of Insertion: 19:56 Data 05/22/23 05:19 05/22/23 05:19 A&P Assessment and plan (1) Acute kidney failure: Qualifiers: Acute renal failure type: with acute tubular necrosis Qualified Code(s): N17.0 - Acute kidney failure with tubular necrosis Plan 1. Acute kidney injury, oliguric, possibly related to jardiance, sepsis, ASO titer positive, but complements are normal, making post-strep GN unlikely. Cellulitis may have been caused by strep. Treatment of post strep GN is supportive care. s/p hemodialysis friday , - BUn and Cr rising --> plan HD today and recommend tunnelled catheter placement 2. Metabolic acidosis, hyperkalemia, resolved 3. Anemia: s/p epogen Attestations 2 Medical Necessity Statement*: per medicine Coding Level of Care Code Acute Code for g Fwd Diagnoses Acute renal failure with tubular necrosis N17.0 Acute renal failure type: with acute tubular necrosis
[2023-05-22 06:03] LABS: Alanine Aminotransferase 10 U/L (0-41); Albumin Level 3.1 g/dL (3.5-5.2); Alkaline Phosphatase 171 U/L (40-130); Anion Gap 14.2 (5-19); Aspartate Amino Transferase 30 U/L (0-40); Blood Urea Nitrogen 59 mg/dL (8-23); Calcium 8.5 mg/dL (8.5-10.5); Carbon Dioxide 26 mmol/L (22-29); Chloride 101 mmol/L (98-107); Glomerular Filtration Rate 20.7 mL/min (90-130); Glucose 153 mg/dL (65-115); Osmolality Calculated 304 mOsm/kg (285-295); Potassium 4.2 mmol/L (3.5-5.1); Sodium 137 mmol/L (136-145); Total Bilirubin 0.2 mg/dL (0.15-1.2); Total Protein 6.1 g/dL (6.6-8.7)
[2023-05-22 06:04] LABS: C Reactive Protein 51.8 mg/L (0.0-4.9); Phosphorus 1.6 mg/dL (2.5-4.5)
[2023-05-22 06:43] LABS: Glucose Point of Care 144 mg/dL (70-110)
[2023-05-22] MEDS: sennosides-docusate Tablet 1 TAB PO (08:46)
[2023-05-22] MEDS: gabapentin 100 mg Capsule PO ×2 (08:46→17:58)
[2023-05-22] MEDS: amiodarone 200 mg Tablet PO (08:46)
[2023-05-22] MEDS: metoprolol tartrate 25 mg Tablet 12.5 MG PO ×2 (08:46→17:58)
[2023-05-22] MEDS: calcium acetate 667 mg Capsule 1334 MG PO ×3 (08:46→18:03)
[2023-05-22] MEDS: sucralfate 1 gm/10 mL Oral Liq UDC PO ×2 (08:46→17:57)
[2023-05-22] MEDS: pantoprazole 40 mg SDV IVP ×2 (08:46→21:04)
[2023-05-22] MEDS: insulin lispro 100 unit/1 mL SUBCUT ×2 (08:47→18:00)
[2023-05-22] MEDS: lidocaine 5% Patch 1 PATCH TOPICAL (10:07)
[2023-05-22 10:57] LABS: Glucose Point of Care 118 mg/dL (70-110)
--- NOTE | 2023-05-22 11:22 | P.PN_ITS ---
Subjective 2 Subjective: No acute events overnight. Patient today morning seen sitting up in recliner. States he is not sitting for around 2 hours. Requesting if he can go back to the bed. Has remained hemodynamically stable on 2 L of oxygen supplementation saturating more than 95%. Vitals/I&O/Wt Last Vital Signs Temp 98 F 05/22/23 08:00 Pulse 71 05/22/23 08:00 Resp 20 H 05/22/23 08:00 BP 119/62 05/22/23 08:00 Pulse Ox 97 05/22/23 08:00 O2 Del Method Nasal Cannula 05/22/23 08:00 O2 Flow Rate 2 05/22/23 08:00 05/21/23 05/22/23 05/22/23 22:59 06:59 14:59 Intake Total 340 / 2150 100 / 2250 Output Total 1100 / 1100 250 / 1350 Balance -760 / 1050 -150 / 900 Weight last 48 hrs Weight 135.284 kg Weight 135.171 kg Physical Exam 2 Narrative: General: No acute distress, AO x3, NC oxygen supplementation, pallor HEENT: PERRLA, pupils bilaterally equal and reactive Chest: Normal vesicular breath sounds all over lung staples with occasional rhonchi and fine crackles. CVS: S1-S2 regular, no murmurs, no tachycardia, no gallops, no rubs Abdomen: Soft, nontender, no organomegaly, bowel sounds present, morbidly obese Neuro: No focal deficits, no facial deformity, AO x3, power 5/5 in all limbs Extremity: OTHER: Bilateral lower limb cellulitis improving. Currently covered with compression stockings and emollient Urinary Catheter Management: Fuentes: Cath Placed During This Visit: yes Reason for Continuing Indwelling Catheter: Assist Healing of Perineal & Sacral Wounds- Incontinent Patients Urinary Catheter Date of Insertion: 05/13/23 Urinary Catheter Time of Insertion: 19:56 Data 05/22/23 05:19 05/22/23 05:19 A&P Assessment and plan (1) Acute kidney failure: Qualifiers: Acute renal failure type: with acute tubular necrosis Qualified Code(s): N17.0 - Acute kidney failure with tubular necrosis (2) Hemodialysis status: (3) Sepsis: (4) Cellulitis and abscess of foot: (5) Chronic respiratory failure with hypoxia: (6) CHF (congestive heart failure): (7) COVID-19: (8) Afib: (9) Back pain: Qualifiers: Back pain laterality: bilateral Back pain location: low back pain C hronicity: acute Sciatica presence: without sciatica Qualified Code(s): M54.50 - Low back pain, unspecified (10) Accidental fall: Qualifiers: Encounter type: initial encounter Qualified Code(s): W19.XXXA - Unspecified fall, initial encounter (11) Compression fracture of L2 lumbar vertebra: Qualifiers: Encounter type: initial encounter Qualified Code(s): S32.020A - Wedge compression fracture of second lumbar vertebra, initial encounter for closed fracture (12) Closed compression fracture of L4 vertebra: Qualifiers: Encounter type: initial encounter Qualified Code(s): S32.040A - Wedge compression fracture of fourth lumbar vertebra, initial encounter for closed fracture (13) Anasarca: (14) Metabolic acidemia: (15) Wide QRS ventricular tachycardia: (16) Prolonged QT interval: (17) Acute hyperkalemia: Plan Acute renal failure: Getting dialysis through clinical dialysis catheter. Last on Friday. Appreciate nephrology recommendations. Patient's creatinine have remained stable at around 3 with urine output around 1 L daily. Care discussed in detail with nephrology. Because creatinine is not improving and urine output remains on the lower side with patient requiring oxygen which he will most likely need longer-term dialysis for now. Plan for dialysis today. Surgery consulted for tunneled catheter placement. Patient is agreeable for outpatient dialysis. Case management alerted for chair time as an outpatient and setting up a ride for dialysis. Continue with renal dialysis diet. Medical reconciliation done for nephrotoxic drugs. Appreciate echocardiogram results. Sepsis: Present on admission. Resolved currently. Appreciate blood cultures. Most likely in setting of extensive cellulitis. Patient has finished a 7-day course of IV antibiotics for cellulitis. Extensive cellulitis: Continue wound care with emollient and compression stockings. Antibiotics as above. A-fib without RVR: Currently rate controlled. Continue with home dose of amiodarone, metoprolol. Restart home dose of Eliquis after tunneled catheter placement. COVID-19: Mild disease. Holding off on treatment for now. Monitor CRP every 48 hours. If patient's oxygen requirements go higher we will plan for remdesivir. Anemia: Hemoglobin down to 7.7. Iron deficiency anemia along with low folate level. Continue with IV iron supplementation and oral folic acid. Appreciate reticulocyte count. May benefit from erythropoietin shot with dialysis. Back pain related to compression fracture L2 L4. requested TLSO brace. Continue local control with lidocaine. As needed Tylenol, Percocet, Dilaudid IV as needed for severe breakthrough. Bowel regimen Type 2 diabetes mellitus: Appreciate A1c. Insulin sliding scale. Full code Out of bed to chair Renal diabetic dialysis diet. Eliquis will suffice as DVT prophylaxis Protonix for PUD prophylaxis Discharge plan: Can plan to discharge after tunneled catheter placement once outpatient chair time for dialysis and ride to dialysis center is set up. Will need home with home health for wound care. Attestations 2 Medical Necessity Statement*: Requires further hospitalization for management of acute renal failure requiring longer-term of dialysis, tunneled catheter placement and setting up of outpatient dialysis Diagnoses Acute renal failure with tubular necrosis N17.0 Acute renal failure type: with acute tubular necrosis Hemodialysis status Z99.2 Sepsis A41.9 Cellulitis and abscess of foot L03.119; L02.619 Chronic respiratory failure with hypoxia J96.11 CHF (congestive heart failure) I50.9 COVID-19 U07.1 Afib I48.91 Back pain M54.50 Back pain laterality: bilateral Back pain location: low back pain Chronicity: acute Sciatica presence: without sciatica Accidental fall W19.XXXA Encounter type: initial encounter Compression fracture of L2 lumbar vertebra S32.020A Encounter type: initial encounter Closed compression fracture of L4 vertebra S32.040A Encounter type: initial encounter Anasarca R60.1 Metabolic acidemia E87.20 Wide QRS ventricular tachycardia I47.20 Prolonged QT interval R94.31 Acute hyperkalemia E87.5
--- NOTE | 2023-05-22 12:55 | P.CONIM_ITS ---
Providers/Reason For Consult 2 Consulting Physician/Specialty*: General surgery Reason for Consult*: Need for dialysis access. Attending Physician: Corby Levy MD Primary Care Provider: Brant Barahona History of Present Illness History of Present Illness Geronimo Barahona is a 62 year old male who was admitted to the hospital with acute kidney injury, who has required dialysis. A temporary dialysis catheter was inserted of the right subclavian vein by my colleague Dr. Jacobson. I have been contacted by the medical team as the patient has been determined to need long-term dialysis and they would like me to place a tunneled catheter. Review of Systems 2 General: Reports: 10 or more systems reviewed and unremarkable except in HPI and below Medications/Allergies Home Medications Medication Instructions Recorded Confirmed Last Taken Type albuterol sulfate 2.5 mg/3 mL 2.5 mg inhalation Q4H PRN 10/03/22 05/14/23 Unknown History (0.083 %) solution for nebulization Shortness Of Breath amiodarone 200 mg tablet 200 mg PO DAILY 10/03/22 05/14/23 Unknown History empagliflozin 25 mg tablet 25 mg PO DAILY 10/03/22 05/14/23 Unknown History (Jardiance) apixaban 5 mg tablet (Eliquis) 5 mg PO BID 03/11/23 05/14/23 Unknown History gabapentin 100 mg capsule 100 mg PO TID 03/11/23 05/14/23 Unknown History insulin aspart U-100 100 unit/mL See Rx Instructions .Route .COMPLEX 03/11/23 05/14/23 Unknown History (3 mL) subcutaneous pen (Novolog FlexPen U-100 Insulin aspart) silver sulfadiazine 1 % topical 1 applic topical DAILY 03/11/23 05/14/23 Unknown History cream (SSD) epinephrine 0.3 mg/0.3 mL 0.3 mg (0.3 mL) IM Q10M PRN 03/17/23 05/14/23 Unknown Rx injection, auto-injector anaphylaxis #2 ea insulin detemir U-100 100 unit/mL 10 unit (0.1 mL) SUBCUT DAILY #15 03/17/23 05/14/23 Unknown Rx (3 mL) subcutaneous pen (Levemir mL FlexPen) metoprolol tartrate 50 mg tablet 25 mg (1/2 x 50 mg) PO BID 30 days 03/17/23 05/14/23 Unknown Rx #15 tabs cyclobenzaprine 10 mg tablet 10 mg PO Q8H #14 tabs 05/07/23 05/14/23 Unknown Rx hydrocodone 10 mg-acetaminophen 1 tab PO Q6H PRN pain #14 tabs 05/07/23 05/14/23 Unknown Rx 325 mg tablet glipizide 10 mg tablet 10 mg PO BID 05/14/23 05/14/23 Unknown History Allergies Allergy/AdvReac Type Severity Reaction Status Date / Time amoxicillin [From Augmentin] Allergy Mild rash Verified 05/13/23 19:28 clavulanic acid Allergy Mild rash Verified 05/13/23 19:28 [From Augmentin] levofloxacin Allergy Mild rash Verified 05/13/23 19:28 Current Medications Generic Name Dose Route Start Last Admin Trade Name Freq PRN Reason Stop Dose Admin Acetaminophen 500 mg 05/13/23 21:13 05/19/23 11:20 Acetaminophen 500 Mg Tablet PO 500 mg Q4H PRN Administration fever Amiodarone HCl 200 mg 05/14/23 09:00 05/22/23 08:46 Amiodarone 200 Mg Tablet PO 200 mg DAILY JAIDEN Administration Calamine 1 applic 05/17/23 09:20 05/18/23 10:00 Calamine Lotion 177 Ml Btl TOPICAL 1 applic Q4H PRN Administration ITCHING Calcium Acetate 1,334 mg 05/15/23 08:00 05/22/23 08:46 Calcium Acetate 667 Mg Capsule PO 1,334 mg TIDWM JAIDEN Administration Gabapentin 100 mg 05/18/23 09:00 05/22/23 08:46 Gabapentin 100 Mg Capsule PO 100 mg BID JAIDEN Administration Heparin Sodium (Porcine) 5,000 unit 05/14/23 23:30 05/21/23 23:59 Heparin 5,000 Unit/Ml Inj 1 Ml SUBCUT 5,000 unit Q12H JAIDEN Administration Albumin Human 25 g in 100 mls @ 60 mls/hr 05/21/23 09:00 05/22/23 10:07 Albumin IV 60 mls/hr Q8H JAIDEN Administration Iron Sucrose 200 mg/ Sodium 110 mls @ 220 mls/hr 05/21/23 12:45 05/21/23 14:48 Chloride IV 05/25/23 13:14 Infused Q24H JAIDEN Infusion Insulin Glargine 5 unit 05/14/23 21:00 05/21/23 21:06 Insulin Glargine 100 Units/1 Ml SUBCUT 5 unit BEDTIME JAIDEN Administration Insulin Human Lispro 0 unit 05/14/23 08:00 05/22/23 11:03 Insulin Lispro 100 Unit/1 Ml SUBCUT Not Given TIDWM [facility] Protocol Lanolin 1 applic 05/15/23 03:04 05/16/23 17:15 Lanolin Oint 7 Gm TOPICAL 1 applic PRN PRN Administration DRYNESS Lidocaine 1 patch 05/15/23 09:00 05/22/23 10:07 Lidocaine 5% Patch TOPICAL 1 patch [id number] JAIDEN Administration Metoprolol Tartrate 12.5 mg 05/16/23 18:00 05/22/23 08:46 Metoprolol Tartrate 25 Mg Tablet PO 12.5 mg BID JAIDEN Administration Ondansetron HCl 4 mg 05/13/23 21:13 05/15/23 11:25 Ondansetron 2 Mg/Ml Sdv 2 Ml IVP 4 mg Q6H PRN Administration NAUSEA AND VOMITING Oxycodone/Acetaminophen 1 tab 05/13/23 21:16 05/21/23 21:06 Oxycodone-Apap 5-325 Mg Tablet PO 1 tab Q4H PRN Administration MODERATE PAIN Pantoprazole Sodium 40 mg 05/14/23 21:15 05/22/23 08:46 Pantoprazole 40 Mg Sdv IVP 40 mg Q12H JAIDEN Administration Senna/Docusate Sodium 1 tab 05/14/23 09:00 05/22/23 08:46 Sennosides-Docusate Tablet PO 1 tab DAILY JAIDEN Administration Sucralfate 1 gm 05/15/23 09:00 05/22/23 08:46 Sucralfate 1 Gm/10 Ml Oral Liq Udc PO 1 gm BID JAIDEN Administration PFSH Acute 2 PFSH: Medical History Bilateral lower leg cellulitis Metabolic acidosis Hyponatremia Hyperkalemia DKA (diabetic ketoacidosis) Falls Generalized weakness FRANCISCO (acute kidney injury) CHF (congestive heart failure) DM2 (diabetes mellitus, type 2) Chronic respiratory failure with hypoxia COPD (chronic obstructive pulmonary disease) Social History Smoking and tobacco/nicotine status: former use of tobacco/nicotine Vitals/I&O/Wt Last Vital Signs Temp 97.5 F L 05/22/23 12:00 Pulse 81 05/22/23 12:00 Resp 16 05/22/23 12:00 BP 113/55 05/22/23 12:00 Pulse Ox 97 05/22/23 12:00 O2 Del Method Nasal Cannula 05/22/23 08:00 O2 Flow Rate 2 05/22/23 08:00 05/21/23 05/22/23 05/22/23 22:59 06:59 14:59 Intake Total 340 / 2150 100 / 2250 120 / 120 Output Total 1100 / 1100 250 / 1350 Balance -760 / 1050 -150 / 900 120 / 120 Weight last 48 hrs Weight 298 lb 4 oz Weight 298 lb Physical Exam 2 Neck/C-Spine: OTHER: Normal neck anatomy, on the right chest there is a subclavian nontunneled catheter. Urinary Catheter Management: Fuentes: Cath Placed During This Visit: yes Reason for Continuing Indwelling Catheter: Assist Healing of Perineal & Sacral Wounds- Incontinent Patients Urinary Catheter Date of Insertion: 05/13/23 Urinary Catheter Time of Insertion: 19:56 Data 05/22/23 05:19 05/22/23 05:19 A&P Assessment and plan (1) CHF (congestive heart failure): (2) Acute kidney failure: Qualifiers: Acute renal failure type: with acute tubular necrosis Qualified Code(s): N17.0 - Acute kidney failure with tubular necrosis Plan After complete history, physical examination and review of all available clinical data the following is my assessment. Patient will benefit from dialysis catheter placement. He will will undergo dialysis today, after dialysis is done and we will proceed to remove the subclavian catheter and tomorrow I will proceed to place a right IJ tunneled dialysis catheter in the operating room. I have discussed with the patient all the risk and benefits of the procedure including the risk of pneumothorax requiring tube thoracostomy, need for additional interventions, perforation of the great vessels at the level of the chest requiring emergent surgery and possible , cannulation of the carotid artery, infection of the catheter and long-term nonfunction. Patient agrees with the risks and wishes to proceed. Coding Level of Care Code Acute Code for Chg Fwd Diagnoses CHF (congestive heart failure) I50.9 Acute renal failure with tubular necrosis N17.0 Acute renal failure type: with acute tubular necrosis
--- NOTE | 2023-05-22 13:26 | PC.HD ---
Attempted to initiate dialysis, however, temporary HD catheter nonfunctional and unable to draw/flush from either port. Per Dr. Cohen, ok to wait until after he receives his permanent HD catheter tomorrow.
[2023-05-22] MEDS: iron sucrose 200 MG in sodium chloride 0.9% (100 ml) 100 ML 220 MG IV (14:42)
[2023-05-22] MEDS: oxyCODONE-APAP 5-325 mg Tablet 1 TAB PO ×2 (15:58→21:28)
[2023-05-22 17:06] LABS: Glucose Point of Care 201 mg/dL (70-110)
--- NOTE | 2023-05-22 17:14 | PM.MISC ---
Miscellaneous Note Purpose of Documentation: Update on patient care Note: Right subclavian hemodialysis catheter noted to be clotted and was not able to be used for hemodialysis today. ? Right subclavian dialysis catheter was removed, pressure was applied for about 10 minutes and a compressive dressing was left in place. ? Nursing staff was informed of catheter removal and that we will monitor for possible bleeding overnight. -Plan is for permanent tunneled catheter tomorrow.
[2023-05-22] MEDS: folic acid 1 mg Tablet PO (17:58)
[2023-05-22 21:02] LABS: Glucose Point of Care 78 mg/dL (70-110)
[2023-05-23] VITALS (16 sets, daily range): BP systolic 108–160; BP diastolic 40–74; PULSE 66–79; RESP 16–20; TEMP 36.1–37.1; O2SAT 92–97
[2023-05-23] MEDS: albumin 25 G/100 ML BAG 60 G IV ×3 (00:04→18:11)
[2023-05-23] MEDS: heparin 5,000 unit/mL INJ 1 mL 5000 UNIT SUBCUT ×2 (00:04→22:37)
--- NOTE | 2023-05-23 06:09 | P.PN_ITS ---
Subjective 2 Subjective: no new complaints Medications: Reviewed: Yes Vitals/I&O/Wt Last Vital Signs Temp 98.7 F 05/23/23 03:19 Pulse 67 05/23/23 03:19 Resp 17 05/23/23 03:19 BP 128/67 05/23/23 03:19 Pulse Ox 96 05/23/23 03:19 O2 Del Method Nasal Cannula 05/23/23 03:19 O2 Flow Rate 2 05/23/23 03:19 05/22/23 05/22/23 05/23/23 14:59 22:59 06:59 Intake Total 463.667 / 463.667 340 / 803.667 100 / 903.667 Output Total 725 / 725 Balance 463.667 / 463.667 -385 / 78.667 100 / 178.667 Weight last 48 hrs Weight 135.284 kg Physical Exam 2 Const: COMMON NORMALS: no acute distress and alert Neuro: SENSORIUM/ORIENTATION: Yes alert OTHER: + intention tremor Urinary Catheter Management: Fuentes: Cath Placed During This Visit: yes Reason for Continuing Indwelling Catheter: Assist Healing of Perineal & Sacral Wounds- Incontinent Patients Urinary Catheter Date of Insertion: 05/13/23 Urinary Catheter Time of Insertion: 19:56 Data 05/24/23 04:57 05/23/23 05:54 A&P Assessment and plan (1) Acute kidney failure: Qualifiers: Acute renal failure type: with acute tubular necrosis Qualified Code(s): N17.0 - Acute kidney failure with tubular necrosis Plan 1. Acute kidney injury, oliguric, possibly related to jardiance, sepsis, ASO titer positive, but complements are normal, making post-strep GN unlikely. Cellulitis may have been caused by strep. Treatment of post strep GN is supportive care. s/p hemodialysis friday , - BUn and Cr rising , with suboptimal UOP , remains on 2 L O2 , Plan for tunnelled catheter placement today 2. Metabolic acidosis, hyperkalemia, resolved 3. Anemia: s/p epogen Attestations 2 Medical Necessity Statement*: per medicine Coding Level of Care Code Acute Code for g Fwd Diagnoses Acute renal failure with tubular necrosis N17.0 Acute renal failure type: with acute tubular necrosis
[2023-05-23 06:33] LABS: Basophils % 0.2 %; Eosinophils # 0.6 10^3/uL (0.0-0.8); Eosinophils % 12.7 %; Hematocrit 26.4 % (37-53); Lymphocytes # 0.4 10^3/uL (0.8-4.8); Lymphocytes % 9.8 %; Mean Corpuscular HGB Conc 29.5 g/dL (30-55); Mean Corpuscular Hemoglobin 30.1 pg (27-33); Mean Corpuscular Volume 101.9 fl (82-101); Mean Platelet Volume 9.7 fL (7.4-10.4); Monocytes # 0.3 10^3/uL (0.2-0.9); Monocytes % 6.9 %; Neutrophils # 3.12 10^3/uL (1.8-7.7); Neutrophils % 69.3 %; Nucleated Red Blood Cells % 0 %; Platelet Count 224 10^3/cmm (157-399); Red Blood Count 2.59 10^6/uL (3.85-5.65); Red Cell Distribution Width 16.9 % (12.1-15.1)
[2023-05-23 06:36] LABS: Glucose Point of Care 120 mg/dL (70-110)
[2023-05-23 07:02] LABS: Alanine Aminotransferase 8 U/L (0-41); Albumin Level 3.4 g/dL (3.5-5.2); Alkaline Phosphatase 162 U/L (40-130); Aspartate Amino Transferase 14 U/L (0-40); Blood Urea Nitrogen 62 mg/dL (8-23); Calcium 8.4 mg/dL (8.5-10.5); Carbon Dioxide 25 mmol/L (22-29); Chloride 102 mmol/L (98-107); Globulin 2.8 g/dL (1.3-4.6); Glomerular Filtration Rate 19.9 mL/min (90-130); Glucose 113 mg/dL (65-115); Osmolality Calculated 308 mOsm/kg (285-295); Sodium 140 mmol/L (136-145); Total Bilirubin 0.3 mg/dL (0.15-1.2); Total Protein 6.2 g/dL (6.6-8.7)
[2023-05-23] MEDS: oxyCODONE-APAP 5-325 mg Tablet 1 TAB PO ×3 (08:03→22:23)
[2023-05-23] MEDS: sucralfate 1 gm/10 mL Oral Liq UDC PO ×2 (08:03→18:12)
[2023-05-23] MEDS: amiodarone 200 mg Tablet PO (08:03)
[2023-05-23] MEDS: calcium acetate 667 mg Capsule 1334 MG PO ×2 (08:03→18:13)
[2023-05-23] MEDS: metoprolol tartrate 25 mg Tablet 12.5 MG PO ×2 (08:03→18:13)
[2023-05-23] MEDS: gabapentin 100 mg Capsule PO ×2 (08:04→18:13)
[2023-05-23] MEDS: folic acid 1 mg Tablet PO ×2 (08:04→18:13)
--- NOTE | 2023-05-23 09:35 | P.ANESASSM_ITS ---
Pre-Anesthetic Assessment Height/Weight: Height 1.83 m Weight 133.016 kg Temp Pulse Resp BP Pulse Ox O2 Del Method O2 Flow Rate 98.5 F 66 17 121/62 94 Nasal Cannula 2 05/23/23 07:48 05/23/23 08:00 05/23/23 08:03 05/23/23 07:48 05/23/23 08:00 05/23/23 08:00 05/23/23 08:00 Operation Date: 05/23/23 12:00 Proposed Procedures p Dialysis Catheter Insertion(Not Applicable) - Ton Tan MD Familial anesthetic complications: none Was Beta Raf taken within 24 hours: N/A Was Clonidine taken within 24 hours: N/A Last intake: > 8hrs Social No alcohol and No tobacco former smoker Exam alert, oriented x 3, clear to auscultation bilaterally and regular rate & rhythm Airway Mallampati: Class IV Dentition: other (poor dentition) Pulmonary Chronic Obstructive Pulmonary Disease CV/HEM Atrial Fibrillation, Anemia, Arrythmia and Congestive Heart Failure (B/L LE edema) Chronic Renal Failure Metabolic Diabetes Mellitus (hx DKA) Anesthetic Plan ASA status: 4 Anesthesia: MAC Risk of > 500 ml blood loss (7ml/kg in children): No Medications/Allergies Home Medications Medication Instructions Recorded Confirmed Last Taken Type albuterol sulfate 2.5 mg/3 mL 2.5 mg inhalation Q4H PRN 10/03/22 05/14/23 Unknown History (0.083 %) solution for nebulization Shortness Of Breath amiodarone 200 mg tablet 200 mg PO DAILY 10/03/22 05/14/23 Unknown History empagliflozin 25 mg tablet 25 mg PO DAILY 10/03/22 05/14/23 Unknown History (Jardiance) apixaban 5 mg tablet (Eliquis) 5 mg PO BID 03/11/23 05/14/23 Unknown History gabapentin 100 mg capsule 100 mg PO TID 03/11/23 05/14/23 Unknown History insulin aspart U-100 100 unit/mL See Rx Instructions .Route .COMPLEX 03/11/23 05/14/23 Unknown History (3 mL) subcutaneous pen (Novolog FlexPen U-100 Insulin aspart) silver sulfadiazine 1 % topical 1 applic topical DAILY 03/11/23 05/14/23 Unknown History cream (SSD) epinephrine 0.3 mg/0.3 mL 0.3 mg (0.3 mL) IM Q10M PRN 03/17/23 05/14/23 Unknown Rx injection, auto-injector anaphylaxis #2 ea insulin detemir U-100 100 unit/mL 10 unit (0.1 mL) SUBCUT DAILY #15 03/17/23 05/14/23 Unknown Rx (3 mL) subcutaneous pen (Levemir mL FlexPen) metoprolol tartrate 50 mg tablet 25 mg (1/2 x 50 mg) PO BID 30 days 03/17/23 05/14/23 Unknown Rx #15 tabs cyclobenzaprine 10 mg tablet 10 mg PO Q8H #14 tabs 05/07/23 05/14/23 Unknown Rx hydrocodone 10 mg-acetaminophen 1 tab PO Q6H PRN pain #14 tabs 05/07/23 05/14/23 Unknown Rx 325 mg tablet glipizide 10 mg tablet 10 mg PO BID 05/14/23 05/14/23 Unknown History Allergies Allergy/AdvReac Type Severity Reaction Status Date / Time amoxicillin [From Augmentin] Allergy Mild rash Verified 05/13/23 19:28 clavulanic acid Allergy Mild rash Verified 05/13/23 19:28 [From Augmentin] levofloxacin Allergy Mild rash Verified 05/13/23 19:28 Current Medications Generic Name Dose Route Start Last Admin Trade Name Freq PRN Reason Stop Dose Admin Acetaminophen 500 mg 05/13/23 21:13 05/19/23 11:20 Acetaminophen 500 Mg Tablet PO 500 mg Q4H PRN Administration fever Amiodarone HCl 200 mg 05/14/23 09:00 05/23/23 08:03 Amiodarone 200 Mg Tablet PO 200 mg DAILY JAIDEN Administration Calamine 1 applic 05/17/23 09:20 05/18/23 10:00 Calamine Lotion 177 Ml Btl TOPICAL 1 applic Q4H PRN Administration ITCHING Calcium Acetate 1,334 mg 05/15/23 08:00 05/23/23 08:03 Calcium Acetate 667 Mg Capsule PO 1,334 mg TIDWM JAIDEN Administration Folic Acid 1 mg 05/22/23 18:00 05/23/23 08:04 Folic Acid 1 Mg Tablet PO 1 mg BID JAIDEN Administration Gabapentin 100 mg 05/18/23 09:00 05/23/23 08:04 Gabapentin 100 Mg Capsule PO 100 mg BID JAIDEN Administration Heparin Sodium (Porcine) 5,000 unit 05/14/23 23:30 05/23/23 00:04 Heparin 5,000 Unit/Ml Inj 1 Ml SUBCUT 5,000 unit Q12H JAIDEN Administration Albumin Human 25 g in 100 mls @ 60 mls/hr 05/21/23 09:00 05/23/23 08:05 Albumin IV 60 mls/hr Q8H [facility] Administration Iron Sucrose 200 mg/ Sodium 110 mls @ 220 mls/hr 05/21/23 12:45 05/22/23 14:43 Chloride IV 05/25/23 15:29 0 mls/hr Q24H [facility] Infusion Insulin Glargine 5 unit 05/14/23 21:00 05/22/23 21:26 Insulin Glargine 100 Units/1 Ml SUBCUT Not Given BEDTIME [facility] Insulin Human Lispro 0 unit 05/14/23 08:00 05/23/23 09:13 Insulin Lispro 100 Unit/1 Ml SUBCUT Not Given TIDWM [facility] Protocol Lanolin 1 applic 05/15/23 03:04 05/16/23 17:15 Lanolin Oint 7 Gm TOPICAL 1 applic PRN PRN Administration DRYNESS Lidocaine 1 patch 05/15/23 09:00 05/22/23 21:26 Lidocaine 5% Patch TOPICAL Not Given [id number] [facility] Metoprolol Tartrate 12.5 mg 05/16/23 18:00 05/23/23 08:03 Metoprolol Tartrate 25 Mg Tablet PO 12.5 mg BID [facility] Administration Ondansetron HCl 4 mg 05/13/23 21:13 05/15/23 11:25 Ondansetron 2 Mg/Ml Sdv 2 Ml IVP 4 mg Q6H PRN Administration NAUSEA AND VOMITING Oxycodone/Acetaminophen 1 tab 05/13/23 21:16 05/23/23 08:03 Oxycodone-Apap 5-325 Mg Tablet PO 1 tab Q4H PRN Administration MODERATE PAIN Pantoprazole Sodium 40 mg 05/14/23 21:15 05/22/23 21:04 Pantoprazole 40 Mg Sdv IVP 40 mg Q12H JAIDEN Administration Senna/Docusate Sodium 1 tab 05/14/23 09:00 05/23/23 09:17 Sennosides-Docusate Tablet PO Not Given DAILY JAIDEN Sucralfate 1 gm 05/15/23 09:00 05/23/23 08:03 Sucralfate 1 Gm/10 Ml Oral Liq Udc PO 1 gm BID JAIDEN Administration PFS Anesthesia Medical History Bilateral lower leg cellulitis Metabolic acidosis Hyponatremia Hyperkalemia DKA (diabetic ketoacidosis) Falls Generalized weakness FRANCISCO (acute kidney injury) CHF (congestive heart failure) DM2 (diabetes mellitus, type 2) Chronic respiratory failure with hypoxia COPD (chronic obstructive pulmonary disease) Social History Smoking and tobacco/nicotine status: former use of tobacco/nicotine Data Anesthesia 05/23/23 05:54 05/23/23 05:54 Short CBC 05/22/23 05/23/23 Range/Units 05:19 05:54 WBC 4.47 4.50 (3.29-11.43) 10^3/uL Hgb 7.70 L 7.80 L (11.27-16.99) g/dL Hct 25.8 L 26.4 L (37-53) % MCV 101.2 H 101.9 H (82-101) fl Plt Count 209 224 (157-399) 10^3/cmm Neut % (Auto) 69.6 69.3 % Neut # (Auto) 3.11 3.12 (1.8-7.7) 10^3/uL BMP 05/22/23 05/23/23 05:19 05:54 Sodium 137 140 Potassium 4.2 4.0 Chloride 101 102 Carbon Dioxide 26 25 BUN 59 H 62 H Creatinine 3.1 H 3.2 H Glucose 153 H 113 Calcium 8.5 8.4 L Liver Function 05/22/23 05/23/23 Range/Units 05:19 05:54 Total Bilirubin 0.2 0.3 (0.15-1.2) mg/dL AST 30 14 (0-40) U/L ALT 10 8 (0-41) U/L Alkaline Phosphatase 171 H 162 H (40-130) U/L Albumin 3.1 L 3.4 L (3.5-5.2) g/dL Coags 12/27/23 12/28/23 05:44 05:19 C-Reactive Protein 59.5 H 51.8 H Cardiac Studies: 2 Echocardiogram 05/19/23
--- NOTE | 2023-05-23 10:45 | W.PM.OPSUD ---
Surgery/Procedure H&P Update DATE OF PROCEDURE: May 23, 2023 DATE H&P PERFORMED: 05/22/23 H&P UPDATE INFORMATION: I have reviewed H&P completed within last 30 days, I have examined patient prior to procedure, No changes to prior documentation and H&P is in [facility] [place] on date indicated PLANNED PROCEDURE: Operation Date: 05/23/23 12:00 Proposed Procedures p Dialysis Catheter Insertion(Not Applicable) - Ton Tan MD
[2023-05-23] MEDS: sodium chloride 0.9% 1,000 ML 30 ML IV (10:53)
--- NOTE | 2023-05-23 11:04 | SC_ITS ---
WS: [id number] INTRAOPERATIVE TECHNIQUE: 3 Spot fluoroscopic images for intraoperative purposes. FLUOROSCOPY TIME: 34.0 seconds CLINICAL INFORMATION: intraoperative COMPARISON: None. FINDINGS: Dual-lumen RIGHT central venous catheter with tip at the SVC/RA junction in good position. No visuali zed pneumothorax. IMPRESSION: Images obtained for intraoperative purposes.
--- NOTE | 2023-05-23 12:53 | P.PN_ITS ---
Subjective 2 Subjective: No acute events overnight. Patient has remained hemodynamically stable and afebrile. Yesterday could not undergo dialysis because of occlusion of temporal dialysis catheter which was removed. Placement of tunneled catheter to be done today. Patient denies any further complaints for now. Medications: Reviewed: Yes Vitals/I&O/Wt Last Vital Signs Temp 97.8 F 05/23/23 10:30 Pulse 67 05/23/23 10:30 Resp 20 H 05/23/23 10:30 BP 121/62 05/23/23 07:48 Pulse Ox 92 05/23/23 10:30 O2 Del Method Nasal Cannula 05/23/23 10:30 O2 Flow Rate 2 05/23/23 10:30 05/22/23 05/23/23 05/23/23 22:59 06:59 14:59 Intake Total 340 / 803.667 100 / 903.667 Output Total 725 / 725 175 / 900 Balance -385 / 78.667 -75 / 3.667 Weight last 48 hrs Weight 133.016 kg Weight 135.284 kg Physical Exam 2 Narrative: General: No acute distress, AO x3, NC oxygen supplementation, pallor HEENT: PERRLA, pupils bilaterally equal and reactive Chest: Normal vesicular breath sounds all over lung staples with occasional rhonchi and fine crackles. CVS: S1-S2 regular, no murmurs, no tachycardia, no gallops, no rubs Abdomen: Soft, nontender, no organomegaly, bowel sounds present, morbidly obese Neuro: No focal deficits, no facial deformity, AO x3, power 5/5 in all limbs Extremity: OTHER: Bilateral lower limb cellulitis improving. Currently covered with compression stockings and emollient Skin: OTHER: Urinary Catheter Management: Fuentes: Cath Placed During This Visit: yes Reason for Continuing Indwelling Catheter: Assist Healing of Perineal & Sacral Wounds- Incontinent Patients Urinary Catheter Date of Insertion: 05/13/23 Urinary Catheter Time of Insertion: 19:56 Data 05/23/23 05:54 05/23/23 05:54 A&P Assessment and plan (1) Acute kidney failure: Qualifiers: Acute renal failure type: with acute tubular necrosis Qualified Code(s): N17.0 - Acute kidney failure with tubular necrosis (2) Hemodialysis status: (3) Sepsis: (4) Cellulitis and abscess of foot: (5) Chronic respiratory failure with hypoxia: (6) CHF (congestive heart failure): (7) COVID-19: (8) Afib: (9) Back pain: Qualifiers: Back pain laterality: bilateral Back pain location: low back pain C hronicity: acute Sciatica presence: without sciatica Qualified Code(s): M54.50 - Low back pain, unspecified (10) Accidental fall: Qualifiers: Encounter type: initial encounter Qualified Code(s): W19.XXXA - Unspecified fall, initial encounter (11) Compression fracture of L2 lumbar vertebra: Qualifiers: Encounter type: initial encounter Qualified Code(s): S32.020A - Wedge compression fracture of second lumbar vertebra, initial encounter for closed fracture (12) Closed compression fracture of L4 vertebra: Qualifiers: Encounter type: initial encounter Qualified Code(s): S32.040A - Wedge compression fracture of fourth lumbar vertebra, initial encounter for closed fracture (13) Anasarca: (14) Metabolic acidemia: (15) Wide QRS ventricular tachycardia: (16) Prolonged QT interval: (17) Acute hyperkalemia: Plan Acute renal failure: Getting dialysis through clinical dialysis catheter. Last on Friday. Appreciate nephrology recommendations. Patient's creatinine have remained stable at around 3 with urine output around 1 L daily. Care discussed in detail with nephrology. Because creatinine is not improving and urine output remains on the lower side with patient requiring oxygen which he will most likely need longer-term dialysis for now. Plan for dialysis today. Surgery consulted for tunneled catheter placement. Patient is agreeable for outpatient dialysis. Case management alerted for chair time as an outpatient and setting up a ride for dialysis. Continue with renal dialysis diet. Medical reconciliation done for nephrotoxic drugs. Appreciate echocardiogram results. Sepsis: Present on admission. Resolved currently. Appreciate blood cultures. Most likely in setting of extensive cellulitis. Patient has finished a 7-day course of IV antibiotics for cellulitis. Extensive cellulitis: Continue wound care with emollient and compression stockings. Antibiotics as above. A-fib without RVR: Currently rate controlled. Continue with home dose of amiodarone, metoprolol. Restart home dose of Eliquis after tunneled catheter placement. COVID-19: Mild disease. Holding off on treatment for now. Monitor CRP every 48 hours. If patient's oxygen requirements go higher we will plan for remdesivir. Anemia: Hemoglobin down to 7.7. Iron deficiency anemia along with low folate level. Continue with IV iron supplementation and oral folic acid. Appreciate reticulocyte count. May benefit from erythropoietin shot with dialysis. Back pain related to compression fracture L2 L4. requested TLSO brace. Continue local control with lidocaine. As needed Tylenol, Percocet, Dilaudid IV as needed for severe breakthrough. Bowel regimen Type 2 diabetes mellitus: Appreciate A1c. Insulin sliding scale. Full code Out of bed to chair Renal diabetic dialysis diet. Eliquis will suffice as DVT prophylaxis Protonix for PUD prophylaxis Plan for the day: Placement of tunneled catheter today. Dialysis after placement. Finished a course of IV antibiotics for cellulitis. Continue with compression and emollient wound care. Hemoglobin stable. Will restart Eliquis after placement of tunneled catheter. Out of bed to chair with physical therapy. Monitor CMP daily. Discharge plan: Can plan to discharge after tunneled catheter placement once outpatient chair time for dialysis and ride to dialysis center is set up. Will need home with home health for wound care. Attestations 2 Medical Necessity Statement*: Requires further hospitalization for placement of tunneled catheter in a patient who requires initiation of new dialysis for acute renal failure, mild COVID-19, chronic anemia Diagnoses Acute renal failure with tubular necrosis N17.0 Acute renal failure type: with acute tubular necrosis Hemodialysis status Z99.2 Sepsis A41.9 Cellulitis and abscess of foot L03.119; L02.619 Chronic respiratory failure with hypoxia J96.11 CHF (congestive heart failure) I50.9 COVID-19 U07.1 Afib I48.91 Back pain M54.50 Back pain laterality: bilateral Back pain location: low back pain Chronicity: acute Sciatica presence: without sciatica Accidental fall W19.XXXA Encounter type: initial encounter Compression fracture of L2 lumbar vertebra S32.020A Encounter type: initial encounter Closed compression fracture of L4 vertebra S32.040A Encounter type: initial encounter Anasarca R60.1 Metabolic acidemia E87.20 Wide QRS ventricular tachycardia I47.20 Prolonged QT interval R94.31 Acute hyperkalemia E87.5
[2023-05-23] MEDS: ceFAZolin 2,000 mg SDV 3000 MG IVP (13:33)
[2023-05-23] MEDS: lidocaine-epi 2% 20 mL INJ INJECTION (13:54)
[2023-05-23] MEDS: heparin, porcine 1,000 unit/mL INJ 10 mL 10000 UNIT XX (13:54)
--- NOTE | 2023-05-23 14:00 | XRR_ITS ---
PROCEDURE INFORMATION: Exam: XR Chest Exam date and time: 05/23/2023 3:28 PM Age: 62 years old Clinical indication: Device placement; Other: Tunneled catheter placement; Prior surgery; Surgery date: Post-operative (0-2 days); Additional info: In pacu for tunneled catheter placement TECHNIQUE: Imaging protocol: Radiologic exam of the chest. 1530 hours Views: 1 view. COMPARISON: CR (CHEST, ) 05/15/2023 2:58 AM FINDINGS: Tubes, catheters and devices: interval placement of a catheter via the right IJ approach terminating at the level of the right atrium superiorly. Lungs: Widely distributed bilateral pulmonary opacities though predominating in the lower lung regions overall have increased since previous. Pleural spaces: There is no pneumothorax identified. Small left-sided pleural effusion versus pleural thickening. Heart/Mediastinum: Allowing for technical differences, cardiomediastinal silhouette is not appear significantly changed. Bones/joints: No acute osseous abnormality identified. XR/XR chest 1V portable [id number] IMPRESSION: Catheter placement to the upper cavoatrial junction without evidence of pneumothorax. Increased pulmonary opacities favored to represent vascular congestion and interstitial edema, atypical infection can not be excluded.
--- NOTE | 2023-05-23 14:01 | P.OP_ITS ---
Operative Report Date of procedure: May 23, 2023 Pre-op diagnosis: chronic kidney disease needing dialysis Post-op diagnosis: Same Post-op findings: normal vascular anatomy Procedure done: Insertion of permacath in the right IJ vein Implants: Permacath 23cm Surgeon: Ton Tan MD Heat Treater Head: ROBBI OR STaff Estimated blood loss: 10 Complications: none Brief History: 62-year-old male who will require long-term dialysis, after all risk and benefits of the procedure were discussed with decided to proceed with tunneled dialysis catheter placement. Procedure: Patient was brought into the OR, placed in a supine position, timeout was conducted, moderate anesthesia sedation was given. The chest and neck was prepped in the usual sterile fashion. Timeout was done. The right IJ vein was identified with ultrasound, local anesthesia was infiltrated around the vein. I then cannulated the vein under direct ultrasound visualization having immediate return of blood and watching the needle tip penetrate the vein. A wire was advanced and the needle removed, position of the wire was verified with fluoroscopy and also with ultrasound. I made the 0.5 cm incision at the level of the wire insertion site in the neck and a 1 cm incision at the level of the upper chest in the previously marked position. I then tunneled permacath from the chest to the neck wound taking careful consideration maintaining orientation. After this I proceeded to dilate the pain with sequential dilators. I then advanced peel-off sheath with introducer over the wire under direct fluoroscopy guidance. The introducer and wire were removed leaving the peel-off sheath in place, the catheter was then advanced through the peel-off sheath and the peel-off sheath was removed leaving the catheter in place. Fluoroscopy was done and show adequate position of the catheter without evidence of kinks. Both lumens were noted to be flushing correctly with good blood return. The catheter was hep-locked. The catheter was fixed to the skin with #3-0 nylon. I then used 4-0 Monocryl to close the neck wound. Dermabond was applied and sterile dressings were applied. Patient was transferred to the PACU in stable condition, catheter can be used pending x-ray verification.
--- NOTE | 2023-05-23 15:02 | PC.HD ---
Addendum entered by Sil Lr RN 05/23/23 15:06: Patient arrived to dialysis room with a ring in a plastic bag on his chest. Per patient request, ring placed on his left ring finger, witnessed by OR transport nurses. Original Note: Patient arrived to dialysis room directly from PACU after receiving permanent HD catheter. Both ports flushed without resistance and treatment was initiated without difficulty.
[2023-05-23] MEDS: lidocaine 5% Patch 1 PATCH TOPICAL ×2 (15:05→22:24)
[2023-05-23] MEDS: pantoprazole 40 mg SDV IVP (15:06)
[2023-05-23] MEDS: iron sucrose 200 MG in sodium chloride 0.9% (100 ml) 100 ML 220 MG IV (15:06)
[2023-05-23 17:23] LABS: Glucose Point of Care 91 mg/dL (70-110)
[2023-05-23] MEDS: epoetin alfa 1000 Unit/0.05 mL (ESRD) 20000 UNIT IVP (17:44)
[2023-05-23 21:16] LABS: Glucose Point of Care 110 mg/dL (70-110)
[2023-05-23] MEDS: insulin glargine 100 units/1 mL 5 UNIT SUBCUT (22:23)
[2023-05-23] MEDS: ondansetron 2 mg/ML SDV 2 mL 4 MG IVP (22:47)
[2023-05-24] VITALS (14 sets, daily range): BP systolic 120–141; BP diastolic 53–68; PULSE 64–80; RESP 16–19; TEMP 36.5–37.3; O2SAT 90–97
[2023-05-24] MEDS: albumin 25 G/100 ML BAG 60 G IV (02:16)
[2023-05-24] MEDS: pantoprazole 40 mg SDV IVP ×2 (02:16→13:57)
[2023-05-24] MEDS: ipratropium-albuterol 3 mL Neb INHALATION ×3 (03:18→20:09)
[2023-05-24 05:10] LABS: Basophils % 0.3 %; Eosinophils # 0.3 10^3/uL (0.0-0.8); Eosinophils % 5.5 %; Hematocrit 27.3 % (37-53); Lymphocytes # 0.3 10^3/uL (0.8-4.8); Lymphocytes % 5.5 %; Mean Corpuscular Hemoglobin 30.3 pg (27-33); Mean Corpuscular Volume 100.7 fl (82-101); Mean Platelet Volume 9.3 fL (7.4-10.4); Monocytes # 0.3 10^3/uL (0.2-0.9); Monocytes % 5.1 %; Neutrophils # 5.14 10^3/uL (1.8-7.7); Neutrophils % 82.6 %; Nucleated Red Blood Cells % 0 %; Platelet Count 212 10^3/cmm (157-399); Red Blood Count 2.71 10^6/uL (3.85-5.65); Red Cell Distribution Width 16.6 % (12.1-15.1); White Blood Count 6.22 10^3/uL (3.29-11.43)
[2023-05-24 05:27] LABS: C Reactive Protein 71.5 mg/L (0.0-4.9)
[2023-05-24 06:28] LABS: Glucose Point of Care 123 mg/dL (70-110)
--- NOTE | 2023-05-24 06:49 | P.PN_ITS ---
Subjective 2 Subjective: s/p HD yesterday Medications: Reviewed: Yes Vitals/I&O/Wt Last Vital Signs Temp 97.7 F 05/24/23 04:00 Pulse 78 05/24/23 04:00 Resp 19 H 05/24/23 04:00 BP 140/64 05/24/23 04:00 Pulse Ox 91 05/24/23 04:00 O2 Del Method Nasal Cannula 05/24/23 03:15 O2 Flow Rate 4 05/24/23 03:15 05/23/23 05/23/23 05/24/23 14:59 22:59 06:59 Intake Total 150 / 150 630 / 780 100 / 880 Output Total 5 / 5 2800 / 2805 600 / 3405 Balance 145 / 145 -2170 / -2025 -500 / -2525 Weight last 48 hrs Weight 137.302 kg Weight 137.7 kg Weight 133.016 kg Physical Exam 2 Const: COMMON NORMALS: no acute distress and alert Neuro: SENSORIUM/ORIENTATION: Yes alert OTHER: + intention tremor Urinary Catheter Management: Fuentes: Cath Placed During This Visit: yes Reason for Continuing Indwelling Catheter: Accurate Measurement of Urinary Output in Critically Ill Patients Urinary Catheter Date of Insertion: 05/13/23 Urinary Catheter Time of Insertion: 19:56 Data 05/24/23 04:57 05/24/23 04:57 A&P Assessment and plan (1) Acute kidney failure: Qualifiers: Acute renal failure type: with acute tubular necrosis Qualified Code(s): N17.0 - Acute kidney failure with tubular necrosis Plan 1. Acute kidney injury, oliguric, possibly related to jardiance, sepsis, ASO titer positive, but complements are normal, making post-strep GN unlikely. Cellulitis may have been caused by strep. Treatment of post strep GN is supportive care. s/p hemodialysis friday , - BUn and Cr rising , with suboptimal UOP , remains on 2 L O2 , s/p tunnelled catheter placement yesterday and HD done -SW to work on outpt HD chair 2. Metabolic acidosis, hyperkalemia, resolved 3. Anemia: s/p epogen Attestations 2 Medical Necessity Statement*: per medicine Coding Level of Care Code Acute Code for [facility] Fwd Diagnoses Acute renal failure with tubular necrosis N17.0 Acute renal failure type: with acute tubular necrosis
[2023-05-24] MEDS: sucralfate 1 gm/10 mL Oral Liq UDC PO ×2 (09:01→17:59)
[2023-05-24] MEDS: amiodarone 200 mg Tablet PO (09:01)
[2023-05-24] MEDS: metoprolol tartrate 25 mg Tablet 12.5 MG PO ×2 (09:01→17:59)
[2023-05-24] MEDS: gabapentin 100 mg Capsule PO ×2 (09:02→18:02)
[2023-05-24] MEDS: sennosides-docusate Tablet 1 TAB PO (09:02)
[2023-05-24] MEDS: calcium acetate 667 mg Capsule 1334 MG PO ×3 (09:02→18:11)
[2023-05-24] MEDS: folic acid 1 mg Tablet PO ×2 (09:03→17:59)
[2023-05-24 10:22] LABS: Alanine Aminotransferase 6 U/L (0-41); Alkaline Phosphatase 163 U/L (40-130); Anion Gap 15.9 (5-19); Aspartate Amino Transferase 10 U/L (0-40); Blood Urea Nitrogen 30 mg/dL (8-23); Calcium 8.4 mg/dL (8.5-10.5); Carbon Dioxide 27 mmol/L (22-29); Chloride 99 mmol/L (98-107); Globulin 2.1 g/dL (1.3-4.6); Glomerular Filtration Rate 32.4 mL/min (90-130); Glucose 124 mg/dL (65-115); Osmolality Calculated 294 mOsm/kg (285-295); Potassium 3.9 mmol/L (3.5-5.1); Sodium 138 mmol/L (136-145); Total Bilirubin 0.4 mg/dL (0.15-1.2); Total Protein 6.1 g/dL (6.6-8.7)
[2023-05-24 11:04] LABS: Glucose Point of Care 163 mg/dL (70-110)
[2023-05-24] MEDS: lidocaine 5% Patch 1 PATCH TOPICAL ×2 (13:56→22:03)
[2023-05-24] MEDS: iron sucrose 200 MG in sodium chloride 0.9% (100 ml) 100 ML 100 MG IV (13:57)
--- NOTE | 2023-05-24 14:03 | P.PN_ITS ---
Subjective 2 Subjective: No acute events overnight. Patient has remained hemodynamically stable and afebrile. Underwent tunneled catheter placement yesterday. Underwent dialysis which he tolerated well. Urine output of 600 cc in last 24 hours. Patient seen sitting up in chair. Denies any new complaints. Medications: Reviewed: Yes Vitals/I&O/Wt Last Vital Signs Temp 99.2 F 05/24/23 10:52 Pulse 70 05/24/23 10:52 Resp 16 05/24/23 10:52 BP 132/64 05/24/23 10:52 Pulse Ox 93 05/24/23 10:52 O2 Del Method Nasal Cannula 05/24/23 10:52 O2 Flow Rate 4 05/24/23 10:52 05/23/23 05/24/23 05/24/23 22:59 06:59 14:59 Intake Total 630 / 780 100 / 880 Output Total 2800 / 2805 600 / 3405 Balance -2170 / -2025 -500 / -2525 Weight last 48 hrs Weight 137.302 kg Weight 137.7 kg Weight 133.016 kg Physical Exam 2 Narrative: General: No acute distress, AO x3, NC oxygen supplementation, pallor HEENT: PERRLA, pupils bilaterally equal and reactive Chest: Normal vesicular breath sounds all over lung staples with occasional rhonchi and fine crackles. CVS: S1-S2 regular, no murmurs, no tachycardia, no gallops, no rubs Abdomen: Soft, nontender, no organomegaly, bowel sounds present, morbidly obese Neuro: No focal deficits, no facial deformity, AO x3, power 5/5 in all limbs Extremity: OTHER: Bilateral lower limb cellulitis improving. Currently covered with compression stockings and emollient Skin: OTHER: Urinary Catheter Management: Fuentes: Cath Placed During This Visit: yes Reason for Continuing Indwelling Catheter: Accurate Measurement of Urinary Output in Critically Ill Patients Urinary Catheter Date of Insertion: 05/13/23 Urinary Catheter Time of Insertion: 19:56 Data 05/24/23 04:57 05/24/23 04:57 A&P Assessment and plan (1) Acute kidney failure: Qualifiers: Acute renal failure type: with acute tubular necrosis Qualified Code(s): N17.0 - Acute kidney failure with tubular necrosis (2) Hemodialysis status: (3) Sepsis: (4) Cellulitis and abscess of foot: (5) Chronic respiratory failure with hypoxia: (6) CHF (congestive heart failure): (7) COVID-19: (8) Afib: (9) Back pain: Qualifiers: Back pain laterality: bilateral Back pain location: low back pain C hronicity: acute Sciatica presence: without sciatica Qualified Code(s): M54.50 - Low back pain, unspecified (10) Accidental fall: Qualifiers: Encounter type: initial encounter Qualified Code(s): W19.XXXA - Unspecified fall, initial encounter (11) Compression fracture of L2 lumbar vertebra: Qualifiers: Encounter type: initial encounter Qualified Code(s): S32.020A - Wedge compression fracture of second lumbar vertebra, initial encounter for closed fracture (12) Closed compression fracture of L4 vertebra: Qualifiers: Encounter type: initial encounter Qualified Code(s): S32.040A - Wedge compression fracture of fourth lumbar vertebra, initial encounter for closed fracture (13) Anasarca: (14) Metabolic acidemia: (15) Wide QRS ventricular tachycardia: (16) Prolonged QT interval: (17) Acute hyperkalemia: Plan Acute renal failure: Getting dialysis through clinical dialysis catheter. Last on Friday. Appreciate nephrology recommendations. Received tunneled catheter placement on 05/23. Continue with dialysis as per nephrology. Will need long-term dialysis for now as an outpatient. Case management consulted for chair time as an outpatient. Continue with renal dialysis diet. Medical reconciliation done for nephrotoxic drugs. Appreciate echocardiogram results. Sepsis: Present on admission. Resolved currently. Appreciate blood cultures. Most likely in setting of extensive cellulitis. Patient has finished a 7-day course of IV antibiotics for cellulitis. Extensive cellulitis: Continue wound care with emollient and compression stockings. Finished course of antibiotics A-fib without RVR: Currently rate controlled. Continue with home dose of amiodarone, metoprolol. Restart home dose of Eliquis today. Monitor hemoglobin. COVID-19: Mild disease. Patient on hold. Patient today on 4 L of oxygen supplementation which is slightly elevated than what he is required for last few days. CRP mildly elevated. For now start on IV dexamethasone 6 mg daily for next 5 days continue to monitor CRP every 48 hours. Pulmicort twice daily, DuoNebs every 6 hours. Anemia: Hemoglobin stable. Iron deficiency anemia along with low folate level. Continue with IV iron supplementation and oral folic acid. Appreciate reticulocyte count. Last day of iron IV supplementation on 05/15. May benefit from erythropoietin shot with dialysis. Back pain related to compression fracture L2 L4. requested TLSO brace. Continue local control with lidocaine. As needed Tylenol, Percocet, Dilaudid IV as needed for severe breakthrough. Bowel regimen Type 2 diabetes mellitus: Appreciate A1c. As patient will be started on dexamethasone today will increase dose of Lantus to 8 units daily, insulin sliding scale ACHS. Full code Out of bed to chair Renal diabetic dialysis diet. Eliquis will suffice as DVT prophylaxis Protonix for PUD prophylaxis Attestations 2 Medical Necessity Statement*: Requires further hospitalization for management of acute renal failure requiring dialysis while Outpatient dialysis is set up, COVID-19 Diagnoses Acute renal failure with tubular necrosis N17.0 Acute renal failure type: with acute tubular necrosis Hemodialysis status Z99.2 Sepsis A41.9 Cellulitis and abscess of foot L03.119; L02.619 Chronic respiratory failure with hypoxia J96.11 CHF (congestive heart failure) I50.9 COVID-19 U07.1 Afib I48.91 Back pain M54.50 Back pain laterality: bilateral Back pain location: low back pain Chronicity: acute Sciatica presence: without sciatica Accidental fall W19.XXXA Encounter type: initial encounter Compression fracture of L2 lumbar vertebra S32.020A Encounter type: initial encounter Closed compression fracture of L4 vertebra S32.040A Encounter type: initial encounter Anasarca R60.1 Metabolic acidemia E87.20 Wide QRS ventricular tachycardia I47.20 Prolonged QT interval R94.31 Acute hyperkalemia E87.5
[2023-05-24] MEDS: oxyCODONE-APAP 5-325 mg Tablet 1 TAB PO ×2 (14:08→21:50)
[2023-05-24 16:38] LABS: Glucose Point of Care 172 mg/dL (70-110)
[2023-05-24] MEDS: dexamethasone 10 mg/mL INJ 6 MG IVP (18:02)
[2023-05-24] MEDS: insulin lispro 100 unit/1 mL SUBCUT ×2 (18:12→21:49)
[2023-05-24 20:45] LABS: Glucose Point of Care 156 mg/dL (70-110)
[2023-05-24] MEDS: insulin glargine 100 units/1 mL 8 UNIT SUBCUT (21:48)
[2023-05-24] MEDS: apixaban 5 mg Tablet PO (21:50)
[2023-05-25] VITALS (13 sets, daily range): BP systolic 134–159; BP diastolic 70–78; PULSE 69–86; RESP 14–18; TEMP 36.6–36.9; O2SAT 89–96
[2023-05-25] MEDS: ipratropium-albuterol 3 mL Neb INHALATION ×3 (01:29→20:29)
[2023-05-25 03:00] LABS: Basophils % 0.3 %; Eosinophils % 0.5 %; Lymphocytes # 0.2 10^3/uL (0.8-4.8); Lymphocytes % 3.7 %; Mean Corpuscular HGB Conc 28.8 g/dL (30-55); Mean Corpuscular Hemoglobin 30.6 pg (27-33); Mean Corpuscular Volume 106.3 fl (82-101); Monocytes # 0.1 10^3/uL (0.2-0.9); Monocytes % 1.5 %; Neutrophils # 5.71 10^3/uL (1.8-7.7); Neutrophils % 92.2 %; Nucleated Red Blood Cells % 0 %; Platelet Count 234 10^3/cmm (157-399); Red Blood Count 3.01 10^6/uL (3.85-5.65); Red Cell Distribution Width 16.7 % (12.1-15.1); White Blood Count 6.19 10^3/uL (3.29-11.43)
[2023-05-25 03:21] LABS: C Reactive Protein 112.4 mg/L (0.0-4.9)
[2023-05-25 03:23] LABS: Alanine Aminotransferase < 5 U/L (0-41); Albumin Level 3.6 g/dL (3.5-5.2); Alkaline Phosphatase 178 U/L (40-130); Anion Gap 17.4 (5-19); Aspartate Amino Transferase 8 U/L (0-40); Blood Urea Nitrogen 33 mg/dL (8-23); Calcium 8.8 mg/dL (8.5-10.5); Carbon Dioxide 26 mmol/L (22-29); Chloride 97 mmol/L (98-107); Globulin 3.3 g/dL (1.3-4.6); Glomerular Filtration Rate 30.7 mL/min (90-130); Glucose 271 mg/dL (65-115); Osmolality Calculated 299 mOsm/kg (285-295); Potassium 4.4 mmol/L (3.5-5.1); Sodium 136 mmol/L (136-145); Total Bilirubin 0.3 mg/dL (0.15-1.2); Total Protein 6.9 g/dL (6.6-8.7)
[2023-05-25] MEDS: pantoprazole 40 mg SDV IVP ×2 (03:44→14:25)
[2023-05-25 06:36] LABS: Glucose Point of Care 284 mg/dL (70-110)
[2023-05-25] MEDS: budesonide 0.5 mg/2 mL Neb INHALATION ×2 (08:05→20:29)
[2023-05-25] MEDS: amiodarone 200 mg Tablet PO (08:57)
[2023-05-25] MEDS: calcium acetate 667 mg Capsule 1334 MG PO ×3 (08:57→18:13)
[2023-05-25] MEDS: sucralfate 1 gm/10 mL Oral Liq UDC PO ×2 (08:57→18:12)
[2023-05-25] MEDS: gabapentin 100 mg Capsule PO ×2 (08:57→18:13)
[2023-05-25] MEDS: metoprolol tartrate 25 mg Tablet 12.5 MG PO ×2 (08:57→18:13)
[2023-05-25] MEDS: insulin lispro 100 unit/1 mL SUBCUT ×4 (08:57→21:55)
[2023-05-25] MEDS: folic acid 1 mg Tablet PO ×2 (08:57→18:13)
[2023-05-25] MEDS: sennosides-docusate Tablet 1 TAB PO (08:57)
[2023-05-25] MEDS: oxyCODONE-APAP 5-325 mg Tablet 1 TAB PO ×3 (09:01→22:37)
[2023-05-25] MEDS: apixaban 5 mg Tablet PO ×2 (09:01→21:55)
[2023-05-25 11:40] LABS: Glucose Point of Care 303 mg/dL (70-110)
[2023-05-25] MEDS: lanolin oint 7 gm 1 APPLIC TOPICAL (12:27)
[2023-05-25] MEDS: dexamethasone 10 mg/mL INJ 6 MG IVP (14:24)
[2023-05-25] MEDS: iron sucrose 200 MG in sodium chloride 0.9% (100 ml) 100 ML 220 MG IV (14:25)
--- NOTE | 2023-05-25 14:41 | P.PN_ITS ---
Subjective 2 Subjective: No acute event overnight. Today morning patient seen with physical therapy at bedside. Patient is getting his compression stockings done. Wound is looking better. As per the PT he was able to ambulate from bed to the chair without assistance today. Has remained hemodynamically stable and afebrile. Down to 2 to 3 days of oxygen supplementation now. Medications: Reviewed: Yes Vitals/I&O/Wt Last Vital Signs Temp 97.8 F 05/25/23 12:00 Pulse 86 05/25/23 12:00 Resp 18 05/25/23 12:00 BP 148/76 05/25/23 12:00 Pulse Ox 96 05/25/23 12:00 O2 Del Method Nasal Cannula 05/25/23 08:00 O2 Flow Rate 3 05/25/23 08:00 05/24/23 05/25/23 05/25/23 22:59 06:59 14:59 Intake Total 590 / 590 960 / 960 Output Total 450 / 450 300 / 750 0 / 0 Balance 140 / 140 -300 / -160 960 / 960 Weight last 48 hrs Weight 131.598 kg Weight 137.302 kg Weight 137.7 kg Physical Exam 2 Narrative: General: No acute distress, AO x3, NC oxygen supplementation, pallor HEENT: PERRLA, pupils bilaterally equal and reactive Chest: Normal vesicular breath sounds all over lung staples with occasional rhonchi and fine crackles. CVS: S1-S2 regular, no murmurs, no tachycardia, no gallops, no rubs Abdomen: Soft, nontender, no organomegaly, bowel sounds present, morbidly obese Neuro: No focal deficits, no facial deformity, AO x3, power 5/5 in all limbs Extremity: OTHER: Bilateral lower limb cellulitis improving. Currently covered with compression stockings and emollient Skin: OTHER: Urinary Catheter Management: Fuentes: Cath Placed During This Visit: yes Reason for Continuing Indwelling Catheter: Other Urinary Catheter Date of Insertion: 05/13/23 Urinary Catheter Time of Insertion: 19:56 Data 05/25/23 02:41 05/25/23 02:41 A&P Assessment and plan (1) Acute kidney failure: Qualifiers: Acute renal failure type: with acute tubular necrosis Qualified Code(s): N17.0 - Acute kidney failure with tubular necrosis (2) Hemodialysis status: (3) Sepsis: (4) Cellulitis and abscess of foot: (5) Chronic respiratory failure with hypoxia: (6) CHF (congestive heart failure): (7) COVID-19: (8) Afib: (9) Back pain: Qualifiers: Back pain laterality: bilateral Back pain location: low back pain C hronicity: acute Sciatica presence: without sciatica Qualified Code(s): M54.50 - Low back pain, unspecified (10) Accidental fall: Qualifiers: Encounter type: initial encounter Qualified Code(s): W19.XXXA - Unspecified fall, initial encounter (11) Compression fracture of L2 lumbar vertebra: Qualifiers: Encounter type: initial encounter Qualified Code(s): S32.020A - Wedge compression fracture of second lumbar vertebra, initial encounter for closed fracture (12) Closed compression fracture of L4 vertebra: Qualifiers: Encounter type: initial encounter Qualified Code(s): S32.040A - Wedge compression fracture of fourth lumbar vertebra, initial encounter for closed fracture (13) Anasarca: (14) Metabolic acidemia: (15) Wide QRS ventricular tachycardia: (16) Prolonged QT interval: (17) Acute hyperkalemia: Plan Acute renal failure: Getting dialysis through clinical dialysis catheter. Last on Friday. Appreciate nephrology recommendations. Received tunneled catheter placement on 05/23. Continue with dialysis as per nephrology. Will need long-term dialysis for now as an outpatient. Case management consulted for chair time as an outpatient. Continue with renal dialysis diet. Medical reconciliation done for nephrotoxic drugs. Appreciate echocardiogram results. Sepsis: Present on admission. Resolved currently. Appreciate blood cultures. Most likely in setting of extensive cellulitis. Patient has finished a 7-day course of IV antibiotics for cellulitis. Extensive cellulitis: Continue wound care with emollient and compression stockings. Finished course of antibiotics A-fib without RVR: Currently rate controlled. Continue with home dose of amiodarone, metoprolol. Restart home dose of Eliquis today. Monitor hemoglobin. COVID-19: Mild disease. Patient on hold. Patient today on 4 L of oxygen supplementation which is slightly elevated than what he is required for last few days. CRP mildly elevated. For now start on IV dexamethasone 6 mg daily for next 5 days continue to monitor CRP every 48 hours. Pulmicort twice daily, DuoNebs every 6 hours. Anemia: Hemoglobin stable. Iron deficiency anemia along with low folate level. Continue with IV iron supplementation and oral folic acid. Appreciate reticulocyte count. Last day of iron IV supplementation on 05/15. May benefit from erythropoietin shot with dialysis. Back pain related to compression fracture L2 L4. requested TLSO brace. Continue local control with lidocaine. As needed Tylenol, Percocet, Dilaudid IV as needed for severe breakthrough. Bowel regimen Type 2 diabetes mellitus: Appreciate A1c. As patient will be started on dexamethasone today will increase dose of Lantus to 8 units daily, insulin sliding scale ACHS. Full code Out of bed to chair Renal diabetic dialysis diet. Eliquis will suffice as DVT prophylaxis Protonix for PUD prophylaxis Plan for the day: Oxygen supplementation improving. Continue with dexamethasone to finish a 7-day course. Oxygen supplementation keeping saturation over 90%. Continue with compression stockings for wound care. Improving. Out of bed to chair. JEREMI Fuentes. Dialysis as per nephrology team. Appreciate electrolytes and renal function today. Hemoglobin stable after restarting Eliquis. Attestations 2 Medical Necessity Statement*: Requires further hospitalization for management of acute renal failure requiring new dialysis, lower limb cellulitis requiring extensive wound care, COVID-19 while outpatient dialysis is set up Diagnoses Acute renal failure with tubular necrosis N17.0 Acute renal failure type: with acute tubular necrosis Hemodialysis status Z99.2 Sepsis A41.9 Cellulitis and abscess of foot L03.119; L02.619 Chronic respiratory failure with hypoxia J96.11 CHF (congestive heart failure) I50.9 COVID-19 U07.1 Afib I48.91 Back pain M54.50 Back pain laterality: bilateral Back pain location: low back pain Chronicity: acute Sciatica presence: without sciatica Accidental fall W19.XXXA Encounter type: initial encounter Compression fracture of L2 lumbar vertebra S32.020A Encounter type: initial encounter Closed compression fracture of L4 vertebra S32.040A Encounter type: initial encounter Anasarca R60.1 Metabolic acidemia E87.20 Wide QRS ventricular tachycardia I47.20 Prolonged QT interval R94.31 Acute hyperkalemia E87.5
[2023-05-25 17:04] LABS: Glucose Point of Care 275 mg/dL (70-110)
--- NOTE | 2023-05-25 19:56 | P.PN_ITS ---
Subjective 2 Subjective: no new c/o Medications: Reviewed: Yes Vitals/I&O/Wt Last Vital Signs Temp 98.4 F 05/25/23 19:55 Pulse 78 05/25/23 19:55 Resp 18 05/25/23 19:55 BP 159/78 05/25/23 19:55 Pulse Ox 95 05/25/23 19:55 O2 Del Method Nasal Cannula 05/25/23 19:55 O2 Flow Rate 3 05/25/23 08:00 05/25/23 05/25/23 05/25/23 06:59 14:59 22:59 Intake Total 1070 / 1070 480 / 1550 Output Total 300 / 750 0 / 0 100 / 100 Balance -300 / -160 1070 / 1070 380 / 1450 Weight last 48 hrs Weight 131.598 kg Weight 137.302 kg Physical Exam 2 Const: COMMON NORMALS: no acute distress and alert Neuro: SENSORIUM/ORIENTATION: Yes alert OTHER: + intention tremor Urinary Catheter Management: Fuentes: Cath Placed During This Visit: yes, but has since been removed by the nurse Reason for Continuing Indwelling Catheter: Other Urinary Catheter Date of Insertion: 05/13/23 Urinary Catheter Time of Insertion: 19:56 Date Urinary Catheter Removed: 05/25/23 Time Urinary Catheter Discontinued: 13:10 Data 05/25/23 02:41 05/25/23 02:41 A&P Assessment and plan (1) Acute kidney failure: Qualifiers: Acute renal failure type: with acute tubular necrosis Qualified Code(s): N17.0 - Acute kidney failure with tubular necrosis Plan 1. Acute kidney injury, oliguric, possibly related to jardiance, sepsis, ASO titer positive, but complements are normal, making post-strep GN unlikely. Cellulitis may have been caused by strep. Treatment of post strep GN is supportive care. s/p hemodialysis friday , - BUn and Cr rising , with suboptimal UOP , remains on 2 L O2 , s/p tunnelled catheter placement and getting HD , next HD friday -[place] to work on outpt HD chair 2. Metabolic acidosis, hyperkalemia, resolved 3. Anemia: s/p epogen Attestations 2 Medical Necessity Statement*: per [facility] Coding Level of Care Code Acute Code for Chg Fwd Diagnoses Acute renal failure with tubular necrosis N17.0 Acute renal failure type: with acute tubular necrosis
[2023-05-25 20:46] LABS: Glucose Point of Care 281 mg/dL (70-110)
[2023-05-25] MEDS: insulin glargine 100 units/1 mL 8 UNIT SUBCUT (21:56)
[2023-05-26] VITALS (14 sets, daily range): BP systolic 130–169; BP diastolic 71–87; PULSE 69–85; RESP 15–19; TEMP 36.4–36.7; O2SAT 93–98
[2023-05-26 03:03] LABS: Basophils % 0.1 %; Hematocrit 28.4 % (37-53); Lymphocytes # 0.3 10^3/uL (0.8-4.8); Lymphocytes % 3.6 %; Mean Corpuscular HGB Conc 31.7 g/dL (30-55); Mean Corpuscular Hemoglobin 31.1 pg (27-33); Mean Corpuscular Volume 98.3 fl (82-101); Mean Platelet Volume 11.1 fL (7.4-10.4); Monocytes # 0.3 10^3/uL (0.2-0.9); Monocytes % 3.7 %; Neutrophils # 6.87 10^3/uL (1.8-7.7); Neutrophils % 91.5 %; Nucleated Red Blood Cells % 0 %; Platelet Count 187 10^3/cmm (157-399); Red Blood Count 2.89 10^6/uL (3.85-5.65); Red Cell Distribution Width 16.6 % (12.1-15.1); White Blood Count 7.51 10^3/uL (3.29-11.43)
[2023-05-26] MEDS: ipratropium-albuterol 3 mL Neb INHALATION ×3 (03:17→13:04)
[2023-05-26] MEDS: oxyCODONE-APAP 5-325 mg Tablet 1 TAB PO ×5 (03:24→21:24)
[2023-05-26] MEDS: pantoprazole 40 mg SDV IVP ×2 (03:24→14:12)
[2023-05-26 03:30] LABS: Albumin Level 3.6 g/dL (3.5-5.2); Alkaline Phosphatase 168 U/L (40-130); Blood Urea Nitrogen 35 mg/dL (8-23); Calcium 8.8 mg/dL (8.5-10.5); Carbon Dioxide 25 mmol/L (22-29); Chloride 100 mmol/L (98-107); Globulin 2.9 g/dL (1.3-4.6); Glomerular Filtration Rate 32.4 mL/min (90-130); Glucose 290 mg/dL (65-115); Osmolality Calculated 307 mOsm/kg (285-295); Sodium 139 mmol/L (136-145); Total Bilirubin 0.3 mg/dL (0.15-1.2); Total Protein 6.5 g/dL (6.6-8.7)
[2023-05-26 03:32] LABS: Alanine Aminotransferase 6 U/L (0-41); Anion Gap 19.1 (5-19); Aspartate Amino Transferase 14 U/L (0-40); Potassium 5.1 mmol/L (3.5-5.1)
[2023-05-26 06:30] LABS: Glucose Point of Care 292 mg/dL (70-110)
[2023-05-26] MEDS: budesonide 0.5 mg/2 mL Neb INHALATION (07:58)
[2023-05-26] MEDS: gabapentin 100 mg Capsule PO ×2 (08:26→17:35)
[2023-05-26] MEDS: sucralfate 1 gm/10 mL Oral Liq UDC PO ×2 (08:26→17:35)
[2023-05-26] MEDS: insulin lispro 100 unit/1 mL SUBCUT ×4 (08:26→21:27)
[2023-05-26] MEDS: calcium acetate 667 mg Capsule 1334 MG PO ×3 (08:27→17:35)
[2023-05-26] MEDS: amiodarone 200 mg Tablet PO (08:27)
[2023-05-26] MEDS: metoprolol tartrate 25 mg Tablet 12.5 MG PO ×2 (08:27→17:35)
[2023-05-26] MEDS: sennosides-docusate Tablet 1 TAB PO (08:27)
[2023-05-26] MEDS: apixaban 5 mg Tablet PO ×2 (08:27→21:24)
[2023-05-26] MEDS: folic acid 1 mg Tablet PO ×2 (08:27→17:35)
--- NOTE | 2023-05-26 13:18 | P.PN_ITS ---
Subjective 2 Subjective: Seen today. Would like to know when he can go home. Dialysis will be Friday/Friday for now. He is unsure if this is going to be permanent for him. at bedside. All questions answered. Vitals/I&O/Wt Last Vital Signs Temp 97.6 F 05/26/23 11:40 Pulse 78 05/26/23 13:04 Resp 16 05/26/23 13:04 BP 130/71 05/26/23 11:40 Pulse Ox 98 05/26/23 13:04 O2 Del Method Nasal Cannula 05/26/23 13:04 O2 Flow Rate 2 05/26/23 13:04 05/25/23 05/26/23 05/26/23 22:59 06:59 14:59 Intake Total 480 / 1550 300 / 300 Output Total 500 / 500 350 / 850 200 / 200 Balance -20 / 1050 -350 / 700 100 / 100 Weight last 48 hrs Weight 131.598 kg Physical Exam 2 Narrative: General: No acute distress, AO x3, NC oxygen supplementation, pallor HEENT: PERRLA, pupils bilaterally equal and reactive Chest: Normal vesicular breath sounds all over lung staples with occasional rhonchi and fine crackles. CVS: S1-S2 regular, no murmurs, no tachycardia, no gallops, no rubs Abdomen: Soft, nontender, no organomegaly, bowel sounds present, morbidly obese Neuro: No focal deficits, no facial deformity, AO x3 Extremity: OTHER: Bilateral lower limb cellulitis improving. Currently covered with compression stockings and emollient Skin: OTHER: Urinary Catheter Management: Fuentes: Cath Placed During This Visit: yes, but has since been removed by the nurse Reason for Continuing Indwelling Catheter: Other Urinary Catheter Date of Insertion: 05/13/23 Urinary Catheter Time of Insertion: 19:56 Date Urinary Catheter Removed: 05/25/23 Time Urinary Catheter Discontinued: 13:10 Data 05/26/23 02:42 05/26/23 02:42 A&P Assessment and plan (1) Acute kidney failure: Qualifiers: Acute renal failure type: with acute tubular necrosis Qualified Code(s): N17.0 - Acute kidney failure with tubular necrosis (2) Hemodialysis status: (3) Sepsis: (4) Cellulitis and abscess of foot: (5) Chronic respiratory failure with hypoxia: (6) CHF (congestive heart failure): (7) COVID-19: (8) Afib: (9) Back pain: Qualifiers: Back pain laterality: bilateral Back pain location: low back pain C hronicity: acute Sciatica presence: without sciatica Qualified Code(s): M54.50 - Low back pain, unspecified (10) Accidental fall: Qualifiers: Encounter type: initial encounter Qualified Code(s): W19.XXXA - Unspecified fall, initial encounter (11) Compression fracture of L2 lumbar vertebra: Qualifiers: Encounter type: initial encounter Qualified Code(s): S32.020A - Wedge compression fracture of second lumbar vertebra, initial encounter for closed fracture (12) Closed compression fracture of L4 vertebra: Qualifiers: Encounter type: initial encounter Qualified Code(s): S32.040A - Wedge compression fracture of fourth lumbar vertebra, initial encounter for closed fracture (13) Anasarca: (14) Metabolic acidemia: (15) Wide QRS ventricular tachycardia: (16) Prolonged QT interval: (17) Acute hyperkalemia: Plan Acute renal failure: Getting dialysis through clinical dialysis catheter. Last on Friday. Appreciate nephrology recommendations. Received tunneled catheter placement on 05/23. Continue with dialysis as per nephrology. Will need long-term dialysis for now as an outpatient. Case management consulted for chair time as an outpatient. Continue with renal dialysis diet. Medical reconciliation done for nephrotoxic drugs. Appreciate echocardiogram results. Sepsis: Present on admission. Resolved currently. Appreciate blood cultures. Most likely in setting of extensive cellulitis. Patient has finished a 7-day course of IV antibiotics for cellulitis. Extensive cellulitis: Continue wound care with emollient and compression stockings. Finished course of antibiotics A-fib without RVR: Currently rate controlled. Continue with home dose of amiodarone, metoprolol. Restart home dose of Eliquis today. Monitor hemoglobin. COVID-19: Mild disease. Patient on hold. Patient today on 4 L of oxygen supplementation which is slightly elevated than what he is required for last few days. CRP mildly elevated. For now start on IV dexamethasone 6 mg daily for next 5 days continue to monitor CRP every 48 hours. Pulmicort twice daily, DuoNebs every 6 hours. Anemia: Hemoglobin stable. Iron deficiency anemia along with low folate level. Continue with IV iron supplementation and oral folic acid. Appreciate reticulocyte count. Last day of iron IV supplementation on 05/15. May benefit from erythropoietin shot with dialysis. Back pain related to compression fracture L2 L4. requested TLSO brace. Continue local control with lidocaine. As needed Tylenol, Percocet, Dilaudid IV as needed for severe breakthrough. Bowel regimen Type 2 diabetes mellitus: Appreciate A1c. As patient will be started on dexamethasone today will increase dose of Lantus to 8 units daily, insulin sliding scale ACHS. Full code Out of bed to chair Renal diabetic dialysis diet. Eliquis will suffice as DVT prophylaxis Protonix for PUD prophylaxis Plan for the day: Oxygen supplementation improving. Continue with dexamethasone to finish a 7-day course. Oxygen supplementation keeping saturation over 90%. Continue with compression stockings for wound care. Improving. Out of bed to chair. JEREMI Fuentes. Dialysis as per nephrology team. Appreciate electrolytes and renal function today. Hemoglobin stable after restarting Eliquis. Attestations 2 Medical Necessity Statement*: Requires further hospitalization for management of acute renal failure requiring new dialysis, lower limb cellulitis requiring extensive wound care, COVID-19 while outpatient dialysis is set up Diagnoses Acute renal failure with tubular necrosis N17.0 Acute renal failure type: with acute tubular necrosis Hemodialysis status Z99.2 Sepsis A41.9 Cellulitis and abscess of foot L03.119; L02.619 Chronic respiratory failure with hypoxia J96.11 CHF (congestive heart failure) I50.9 COVID-19 U07.1 Afib I48.91 Back pain M54.50 Back pain laterality: bilateral Back pain location: low back pain Chronicity: acute Sciatica presence: without sciatica Accidental fall W19.XXXA Encounter type: initial encounter Compression fracture of L2 lumbar vertebra S32.020A Encounter type: initial encounter Closed compression fracture of L4 vertebra S32.040A Encounter type: initial encounter Anasarca R60.1 Metabolic acidemia E87.20 Wide QRS ventricular tachycardia I47.20 Prolonged QT interval R94.31 Acute hyperkalemia E87.5
[2023-05-26] MEDS: dexamethasone 10 mg/mL INJ 6 MG IVP (14:12)
[2023-05-26 15:33] LABS: Glucose Point of Care 225 mg/dL (70-110)
[2023-05-26 17:03] LABS: Glucose Point of Care 243 mg/dL (70-110)
--- NOTE | 2023-05-26 20:37 | P.PN_ITS ---
Subjective 2 Subjective: doing well Medications: Reviewed: Yes Vitals/I&O/Wt Last Vital Signs Temp 98.0 F 05/26/23 15:56 Pulse 78 05/26/23 15:56 Resp 18 05/26/23 17:40 BP 149/71 05/26/23 15:56 Pulse Ox 95 05/26/23 15:56 O2 Del Method Nasal Cannula 05/26/23 15:56 O2 Flow Rate 2 05/26/23 13:04 05/26/23 05/26/23 05/26/23 06:59 14:59 22:59 Intake Total 420 / 420 300 / 720 Output Total 350 / 850 300 / 300 100 / 400 Balance -350 / 700 120 / 120 200 / 320 Weight last 48 hrs Weight 131.598 kg Physical Exam 2 Const: COMMON NORMALS: no acute distress and alert Neuro: SENSORIUM/ORIENTATION: Yes alert OTHER: + intention tremor Urinary Catheter Management: Fuentes: Cath Placed During This Visit: yes, but has since been removed by the nurse Reason for Continuing Indwelling Catheter: Other Urinary Catheter Date of Insertion: 05/13/23 Urinary Catheter Time of Insertion: 19:56 Date Urinary Catheter Removed: 05/25/23 Time Urinary Catheter Discontinued: 13:10 Data 05/26/23 02:42 05/26/23 02:42 A&P Assessment and plan (1) Acute kidney failure: Qualifiers: Acute renal failure type: with acute tubular necrosis Qualified Code(s): N17.0 - Acute kidney failure with tubular necrosis Plan 1. Acute kidney injury, oliguric, possibly related to jardiance, sepsis, ASO titer positive, but complements are normal, making post-strep GN unlikely. Cellulitis may have been caused by strep. Treatment of post strep GN is supportive care. s/p hemodialysis friday , - BUn and Cr rising , with suboptimal UOP , remains on 2 L O2 , s/p tunnelled catheter placement and getting HD , next HD friday -[place] to work on outpt HD chair 2. Metabolic acidosis, hyperkalemia, resolved 3. Anemia: s/p epogen Attestations 2 Medical Necessity Statement*: per [facility] Coding Level of Care Code Acute Code for Chg Fwd Diagnoses Acute renal failure with tubular necrosis N17.0 Acute renal failure type: with acute tubular necrosis
[2023-05-26 21:18] LABS: Glucose Point of Care 308 mg/dL (70-110)
[2023-05-26] MEDS: insulin glargine 100 units/1 mL 8 UNIT SUBCUT (21:24)
[2023-05-27] VITALS (12 sets, daily range): BP systolic 161–172; BP diastolic 79–84; PULSE 63–91; RESP 15–18; TEMP 36.3–36.8; O2SAT 91–98; BMI 39.3
[2023-05-27] MEDS: ipratropium-albuterol 3 mL Neb INHALATION ×2 (02:47→13:30)
[2023-05-27] MEDS: oxyCODONE-APAP 5-325 mg Tablet 1 TAB PO ×3 (03:04→15:19)
[2023-05-27] MEDS: pantoprazole 40 mg SDV IVP (03:29)
[2023-05-27 06:40] LABS: C Reactive Protein 16.7 mg/L (0.0-4.9)
[2023-05-27 06:49] LABS: Glucose Point of Care 285 mg/dL (70-110)
[2023-05-27] MEDS: sucralfate 1 gm/10 mL Oral Liq UDC PO (10:41)
[2023-05-27] MEDS: folic acid 1 mg Tablet PO (10:42)
[2023-05-27] MEDS: insulin lispro 100 unit/1 mL SUBCUT ×2 (10:42→12:52)
[2023-05-27] MEDS: sennosides-docusate Tablet 1 TAB PO (10:42)
[2023-05-27] MEDS: apixaban 5 mg Tablet PO (10:42)
[2023-05-27] MEDS: calcium acetate 667 mg Capsule 1334 MG PO ×2 (10:42→12:52)
[2023-05-27] MEDS: gabapentin 100 mg Capsule PO (10:42)
[2023-05-27] MEDS: amiodarone 200 mg Tablet PO (10:42)
[2023-05-27] MEDS: metoprolol tartrate 25 mg Tablet 12.5 MG PO (10:42)
[2023-05-27 11:31] LABS: Glucose Point of Care 241 mg/dL (70-110)
--- NOTE | 2023-05-27 11:40 | PC.NURSE ---
As this RN was writing referral information for [facility], it was noted patient's PCP was listed as MT Jacob, however he is no longer practicing. [facility] and the patient was turned over to Dr. Greg Kapadia. I spoke with Lily Hernandez in registration that updated the information in patient's chart.
--- NOTE | 2023-05-27 13:14 | P.PN_ITS ---
Subjective 2 Subjective: no new c/o on 2LO2 Medications: Reviewed: Yes Vitals/I&O/Wt Last Vital Signs Temp 98.0 F 05/27/23 11:31 Pulse 91 05/27/23 11:31 Resp 15 05/27/23 11:31 BP 161/80 05/27/23 11:31 Pulse Ox 97 05/27/23 11:31 O2 Del Method Nasal Cannula 05/27/23 11:31 O2 Flow Rate 3 05/27/23 08:25 05/26/23 05/27/23 05/27/23 22:59 06:59 14:59 Intake Total 300 / 720 720 / 1440 600 / 600 Output Total 250 / 550 325 / 875 Balance 50 / 170 395 / 565 600 / 600 Weight last 48 hrs Weight 131.587 kg Physical Exam 2 Const: COMMON NORMALS: no acute distress and alert Neuro: SENSORIUM/ORIENTATION: Yes alert OTHER: + intention tremor Urinary Catheter Management: Fuentes: Cath Placed During This Visit: yes, but has since been removed by the nurse Reason for Continuing Indwelling Catheter: Other Urinary Catheter Date of Insertion: 05/13/23 Urinary Catheter Time of Insertion: 19:56 Date Urinary Catheter Removed: 05/25/23 Time Urinary Catheter Discontinued: 13:10 Data 05/26/23 02:42 05/26/23 02:42 A&P Assessment and plan (1) Acute kidney failure: Qualifiers: Acute renal failure type: with acute tubular necrosis Qualified Code(s): N17.0 - Acute kidney failure with tubular necrosis Plan 1. Acute kidney injury, oliguric, possibly related to jardiance, sepsis, ASO titer positive, but complements are normal, making post-strep GN unlikely. Cellulitis may have been caused by strep. Treatment of post strep GN is supportive care. s/p hemodialysis friday , - BUn and Cr rising , with suboptimal UOP , remains on 2 L O2 , s/p tunnelled catheter placement and getting HD , -[place] to work on outpt HD chair 2. Metabolic acidosis, hyperkalemia, resolved 3. Anemia: s/p epogen Attestations 2 Medical Necessity Statement*: per [facility] Coding Level of Care Code Acute Code for Chg Fwd Diagnoses Acute renal failure with tubular necrosis N17.0 Acute renal failure type: with acute tubular necrosis
--- NOTE | 2023-05-27 13:32 | P.DS_ITS ---
Discharge Providers Date of Admission: 05/13/23 21:03 Date of Discharge: May 27, 2023 Attending Provider at Admission: Erick Rodriguez MD Attending Provider at Discharge: Karlee Gutierrez MD Primary Care Provider: Greg Kapadia Diagnoses at Discharge Discharge Diagnosis (1) Acute kidney failure: Status: Acute Qualifiers: Acute renal failure type: with acute tubular necrosis Qualified Code(s): N17.0 - Acute kidney failure with tubular necrosis Reason for Visit Reason for Visit: abd pain Brief History: Geronimo Barahona is a 62 year old male who has history of A-fib, CHF, diabetes, lower extremity swelling, lymphedema, sacral ulcer, cellulitis of lower extremities, was admitted 2 months ago for acute on chronic kidney disease, A- fib with slow ventricular response, on last admission he was given fluids that improved his kidney function at discharge creatinine was 1.64 cellulitis he was given doxycycline, presenting for chief complaint of worsening of back pain, patient is stating that he fell on 12th and since then he has been experiencing significant back pain, he does not walk independently, he mostly stays in a chair, he was extremely weak and lethargic stating that he is not making much urine his last dose of Eliquis was around noon today In the ER he was diagnosed with wide QRS, T wave changes and PVCs QTc prolongation related to hyperkalemia Patient is hypervolemic, acidotic, hyponatremic Creatinine is extremely high patient is stating that he makes very little amount of urine Patient is agreeable for dialysis if needed He is being transferred to ICU Spoke with the digital learning platforms manager who agreed with temporary dialysis catheter placement because of his significant changes on EKG with hyperkalemia acidosis and hyperkalemia, Spoke with Dr. Jacobson who is on his way to put a dialysis catheter Patient is being transferred from ER to the ICU Spoke with the ER physician Patient received calcium gluconate, insulin, dextrose 50, albuterol Once dialysis catheter has been placed Dr. Curry is planning for first session of dialysis tonight Please note on previous admission patient was discharged on EpiPen Zyrtec and prednisone because there was some concern of allergic reaction to a drug, drug has not been identified, patient was getting Augmentin and Levaquin which was stopped along with vancomycin he was discharged on doxycycline Patient is showing signs of sepsis with hypothermia, leukocytosis, high lactic acidemia, he does have sacral ulcer, lower extremity cellulitis,. We cannot give him 30 mill per kilo fluids because of his active acute on chronic renal failure patient is hypervolemic Hospital Course Hospital Course 62-year-old admitted for cellulitis septic shock renal failure with hyperkalemia initially was in ICU. Patient has recovered from septic shock and cellulitis and has finished IV antibiotic course for that as well. He had persistent acute renal failure requiring initiation of dialysis. Nephrology has been consulted on the patient and it is decided that the patient will need long-term dialysis at this point. Tunneled catheter was placed during hospital stay. Patient will also need aggressive wound care for which she will be referred to wound care clinic and his family member has been taught to do compression wraps which his will be doing for him. Home health has declined him at this point. During hospitalization he was also found to have COVID and had only mild disease and being treated with dexamethasone. He never required remdesivir. Paxlovid contraindicated given renal dysfunction. Patient has a chair time set up and will be discharged home to follow-up with nephrology outpatient, PCP and wound care clinic. All questions answered at bedside. Physical Exam Narrative: General: No acute distress, AO x3, NC oxygen supplementation, pallor HEENT: PERRLA, pupils bilaterally equal and reactive Chest: Clear to auscultation bilaterally. CVS: S1-S2 regular, no murmurs, no tachycardia, no gallops, no rubs Abdomen: Soft, nontender, bowel sounds present, morbidly obese Neuro: No focal deficits, no facial deformity, AO x3 Extremity: OTHER: Bilateral lower limb cellulitis improving. Currently covered with compression stockings and emollient Urinary Catheter Management: Fuentes: Cath Placed During This Visit: yes, but has since been removed by the nurse Reason for Continuing Indwelling Catheter: Other Urinary Catheter Date of Insertion: 05/13/23 Urinary Catheter Time of Insertion: 19:56 Date Urinary Catheter Removed: 05/25/23 Time Urinary Catheter Discontinued: 13:10 Discharge Data Studies Completed and Pending Completed Studies During Hospitalization Category Date Time Status CT abdomen pelvis con [id number] Stat Cat Scan 05/13/23 22:25 Completed CXRP [XR chest 1V portable [id number]] Stat Exams 05/13/23 21:28 Completed CXRP [XR chest 1V portable [id number]] Stat Exams 05/14/23 01:11 Completed XR KUB portable [id number] Stat Exams 05/14/23 21:53 Completed XR chest 1V portable [id number] Stat Exams 05/15/23 01:45 Completed XR chest 1V portable [id number] Stat Exams 05/23/23 14:00 Completed CV. echo wo/w contrast [id number] Routine Ultrasound 05/19/23 13:17 Completed US renal BI* [id number] Routine Ultrasound 05/14/23 21:27 Completed Radiology Impressions Abdomen/Pelvis CT 05/13/23 22:25 IMPRESSION: 1. No acute bowel abnormality identified. 2. Mild colonic diverticulosis without definite evidence of diverticulitis. 3. Stable mild L2 compression fracture. 4. New mild L3 compression fracture, not seen on 05/07/2023. 5. Slight progression in height loss of moderate L4 compression fracture since 05/07/2023. 6. Cholelithiasis. No evidence of acute cholecystitis or biliary dilatation. 7. Small fat containing umbilical and bilateral inguinal hernias. KUB X-Ray 05/14/23 21:53 IMPRESSION: [id number] probable ileus. Chest X-Ray 05/23/23 14:00 IMPRESSION: Catheter placement to the upper cavoatrial junction without evidence of pneumothorax. Increased pulmonary opacities favored to represent vascular congestion and interstitial edema, atypical infection can not be excluded. Laboratory Results WBC 7.51 10^3/uL (3.29-11.43) 05/26/23 02:42 RBC 2.89 10^6/uL (3.85-5.65) L 05/26/23 02:42 Hgb 9.00 g/dL (11.27-16.99) L 05/26/23 02:42 Hct 28.4 % (37-53) L 05/26/23 02:42 MCV 98.3 fl (82-101) 05/26/23 02:42 MCH 31.1 pg (27-33) 05/26/23 02:42 MCHC 31.7 g/dL (30-55) D 05/26/23 02:42 RDW 16.6 % (12.1-15.1) H 05/26/23 02:42 Plt Count 187 10^3/cmm (157-399) 05/26/23 02:42 MPV 11.1 fL (7.4-10.4) H 05/26/23 02:42 Neut % (Auto) 91.5 % 05/26/23 02:42 Lymph % (Auto) 3.6 % 05/26/23 02:42 [place] % (Auto) 3.7 % 05/26/23 02:42 Eos % (Auto) 0.0 % 05/26/23 02:42 Baso % (Auto) 0.1 % 05/26/23 02:42 Reticulocyte % (Auto) 1.1 % (0.5-2.0) 05/21/23 05:44 Neut # (Auto) 6.87 10^3/uL (1.8-7.7) 05/26/23 02:42 Lymph # (Auto) 0.3 10^3/uL (0.8-4.8) L 05/26/23 02:42 [place] # (Auto) 0.3 10^3/uL (0.2-0.9) 05/26/23 02:42 Eos # (Auto) 0.0 10^3/uL (0.0-0.8) 05/26/23 02:42 Baso # (Auto) 0.0 10^3/uL (0.0-0.1) 05/26/23 02:42 Nucleated RBC % (auto) 0 % 05/26/23 02:42 Nucleated RBCs # 0.0 /100WBC 05/26/23 02:42 D-Dimer 2.89 ug/mLFEU (0-0.59) H 05/19/23 15:05 Sodium 139 mmol/L (136-145) 05/26/23 02:42 Potassium 5.1 mmol/L (3.5-5.1) 05/26/23 02:42 Chloride 100 mmol/L (98-107) 05/26/23 02:42 Carbon Dioxide 25 mmol/L (22-29) 05/26/23 02:42 Anion Gap 19.1 (5-19) H 05/26/23 02:42 BUN 35 mg/dL (8-23) H 05/26/23 02:42 Creatinine 2.1 mg/dL (0.7-1.2) H 05/26/23 02:42 GFR Calculation 32.4 mL/min (90-130) L 05/26/23 02:42 Glucose 290 mg/dL (65-115) H 05/26/23 02:42 POC Glucose 241 mg/dL (70-110) H 05/27/23 11:19 Estimat Average Glucose 131 05/20/23 04:58 Hemoglobin A1c 6.2 % (4.0-6.0) H 05/20/23 04:58 Calculated Osmolality 307 mOsm/kg (285-295) H 05/26/23 02:42 Lactic Acid 3.2 mmol/L (0.5-2.2) H 05/13/23 19:40 Lactic Acid (Sepsis) 1.7 mmol/L (0.5-2.2) 05/13/23 22:11 Uric Acid 10.4 mg/dL (3.4-7.0) H 05/15/23 03:56 Calcium 8.8 mg/dL (8.5-10.5) 05/26/23 02:42 Phosphorus 1.6 mg/dL (2.5-4.5) L 05/22/23 05:19 Magnesium 2.0 mg/dL (1.7-2.3) 05/22/23 05:19 Iron 21 ug/dL (59-158) L 05/19/23 15:05 TIBC 120 mcg/dl 05/19/23 15:05 % Saturation 17.5 % (20-50) L 05/19/23 15:05 Unsat Iron Binding 99 ug/dL (112-347) L 05/19/23 15:05 Total Bilirubin 0.3 mg/dL (0.15-1.2) 05/26/23 02:42 AST 14 U/L (0-40) 05/26/23 02:42 ALT 6 U/L (0-41) 05/26/23 02:42 Alkaline Phosphatase 168 U/L (40-130) H 05/26/23 02:42 Creatine Kinase Cancelled 05/15/23 01:48 C-Reactive Protein 16.7 mg/L (0.0-4.9) H 05/27/23 06:05 NT-Pro-B Natriuret Pep 3518 pg/mL (0-125) H 05/13/23 19:40 Total Protein 6.5 g/dL (6.6-8.7) L 05/26/23 02:42 Albumin 3.6 g/dL (3.5-5.2) 05/26/23 02:42 Globulin 2.9 g/dL (1.3-4.6) 05/26/23 02:42 Triglycerides 90 mg/dL (0-150) 05/20/23 04:58 Cholesterol 114 mg/dL (0-200) 05/20/23 04:58 LDL Cholesterol, Calc 52 mg/dL (50-129) 05/20/23 04:58 Total VLDL Cholesterol 18 mg/dL (0-30) 05/20/23 04:58 HDL Cholesterol 44 mg/dL (60-100) L 05/20/23 04:58 Cholesterol/HDL Ratio 2.59 mg/dL (1.0-5.00) 05/20/23 04:58 Lipase 58 U/L (13-60) 05/13/23 19:40 Vitamin B12 561 pg/mL (232-1245) 05/19/23 15:05 Folate 3.7 ng/mL (4.5-32.2) L 05/20/23 04:58 Procalcitonin 0.51 ng/mL (0-0.5) H 05/19/23 15:05 TSH 0.86 uIU/mL (0.27-4.20) 05/19/23 15:05 Urine Color Yellow (Yellow) 05/13/23 21:02 Urine Appearance Cloudy (CLEAR) A 05/13/23 21:02 Urine pH 5 (5-7) 05/13/23 21:02 Ur Specific [place] 1.025 (1.005-1.030) 05/13/23 21:02 Urine Protein 1+ (Negative) H 05/13/23 21:02 Urine Glucose (UA) Trace (Normal) H 05/13/23 21:02 Urine Ketones 1+ (Negative) H 05/13/23 21:02 Urine Blood 3+ (Negative) H 05/13/23 21:02 Urine Nitrate Negative (Negative) 05/13/23 21:02 Urine Bilirubin 1+ (Negative) H 05/13/23 21:02 Urine Urobilinogen Norm mg/dL (Negative) 05/13/23 21:02 Ur Leukocyte Esterase 2+ (Negative) H 05/13/23 21:02 Urine RBC 50-80 /hpf (0-2) H 05/13/23 21:02 Urine WBC 55-80 /hpf (0-5) H 05/13/23 21:02 Ur Squamous Epith Cells 5-10 /hpf (0-5) H 05/13/23 21:02 Amorphous Sediment Not Reportable 05/13/23 21:02 Urine Bacteria Trace /hpf (NONE) 05/13/23 21:02 Ur Random Sodium < 10 mmol/L 05/15/23 16:00 Nasal Influ A H1 2009 PCR Not detected (NOT DETECT) 05/19/23 13:20 ZEYNEP Screen Negative (NEGATIVE) 05/15/23 06:25 ANCA Screen Negative (NEGATIVE) 05/15/23 06:25 ANCA Titer Not Reportable 05/15/23 06:25 Complement C3 124 mg/dL (90-180) 05/15/23 03:56 Complement C4 31 mg/dL (10-40) 05/15/23 03:56 [place] Light Chains 150.2 mg/L (3.3-19.4) H 05/15/23 06:25 Free [place] Chain 137.5 mg/L (5.7-26.3) H 05/15/23 06:25 [place]/Lambda Ratio 1.09 (0.26-1.65) 05/15/23 06:25 Adenovirus (PCR) Not detected (NOT DETECT) 05/19/23 13:20 C. pneumoniae DNA (PCR) Not detected (NOT DETECT) 05/19/23 13:20 Coronavirus 229E (PCR) Not detected (NOT DETECT) 05/19/23 13:20 Hep Bs Antigen Non-reactive (Nonreactive) 05/13/23 19:40 Hep Bs Antibody < 3.5 (11.5-1000) L 05/13/23 19:40 Hepatitis C Antibody Non-reactive (Nonreactive) 05/17/23 05:57 Human Metapneumovir PCR Not detected (NOT DETECT) 05/19/23 13:20 Influenza A (H1) PCR Not detected (NOT DETECT) 05/19/23 13:20 Influenza A (H3) PCR Not detected (NOT DETECT) 05/19/23 13:20 Influenza Type A (PCR) Not detected (NOT DETECT) 05/19/23 13:20 Influenza Type B (PCR) Not detected (NOT DETECT) 05/19/23 13:20 M. pneumoniae (PCR) Not detected (NOT DETECT) 05/19/23 13:20 Parainfluenza 1 (PCR) Not detected (NOT DETECT) 05/19/23 13:20 Parainfluenza 2 (PCR) Not detected (NOT DETECT) 05/19/23 13:20 Parainfluenza 3 (PCR) Not detected (NOT DETECT) 05/19/23 13:20 Parainfluenza 4 (PCR) Not detected (NOT DETECT) 05/19/23 13:20 RSV Type A (PCR) Not detected (NOT DETECT) 05/19/23 13:20 RSV Type B (PCR) Not detected (NOT DETECT) 05/19/23 13:20 Entero/Rhino (PCR) Not detected (NOT DETECT) 05/19/23 13:20 SARS-CoV-2 (PCR) Detected (NOT DETECT) A 05/19/23 13:20 MRSA (PCR) Detected (NOT DETECTED) A 05/19/23 17:20 Anti-Streptolysin O Ab 1014 IU/mL (<200) H 05/15/23 06:25 Vitals Last Vital Signs Temp 98.0 F 05/27/23 11:31 Pulse 91 05/27/23 11:31 Resp 15 05/27/23 11:31 BP 161/80 05/27/23 11:31 Pulse Ox 97 05/27/23 11:31 O2 Del Method Nasal Cannula 05/27/23 11:31 O2 Flow Rate 3 05/27/23 08:25 Discharge Plan Discharge Patient Disposition: Home Condition: Stable Prescriptions: New sucralfate 100 mg/mL Suspension 1 g PO BID Qty: 60 0RF folic acid 1 mg Tablet 1 mg PO BID Qty: 60 0RF sennosides-docusate sodium [Stool Softener-Laxative] 8.6-50 mg Tablet 1 tab PO DAILY Qty: 60 0RF calcium acetate [Calphron] 667 mg Tablet 1,334 mg PO TIDWM Qty: 90 0RF Continued hydrocodone-acetaminophen 10-325 mg tablet 1 tab PO Q6H PRN (Reason: pain) Qty: 14 0RF cyclobenzaprine 10 mg tablet 10 mg PO Q8H Qty: 14 0RF albuterol sulfate 2.5 mg /3 mL (0.083 %) solution for nebulization 2.5 mg inhalation Q4H PRN (Reason: Shortness Of Breath) amiodarone 200 mg tablet 200 mg PO DAILY silver sulfadiazine [SSD] 1 % cream 1 applic TOPICAL DAILY Eliquis 5 mg tablet 5 mg PO BID metoprolol tartrate 50 mg tablet 25 mg PO BID 30 Days Qty: 15 0RF epinephrine 0.3 mg/0.3 mL auto-injector 0.3 mg IM Q10M PRN (Reason: anaphylaxis) Qty: 2 0RF Rx Instructions: for 2 doses Changed insulin aspart U-100 [Novolog FlexPen U-100 Insulin] 100 unit/mL (3 mL) insulin pen See Rx Instructions .ROUTE .COMPLEX Qty: 15 0RF Rx Instructions: INJECT SUBCUTANEOUSLY FOLLOWS PER SLIDING SCALE. 141-180-4 UNITS, 181- 220=6 UNITS, 221-260=8 UNITS, 261-300=11 UNITS, >321=15 UNITS. Levemir FlexPen 100 unit/mL (3 mL) insulin pen 8 unit SUBCUT DAILY Qty: 15 0RF gabapentin 100 mg capsule 100 mg PO BID Qty: 60 0RF Discontinued glipizide 10 mg tablet 10 mg PO BID Jard[place] 25 mg tablet 25 mg PO DAILY Discharge Orders: Discharge Order (Routine); Ordered 05/27/23 Ordered By: Karlee Gutierrez Referrals: Brant Barahona [Referring] - 05/23/23 1:45 pm Gaurav Jacobson MD [Physician] - 05/27/23 10:55 am Discharge Diet: Cardiac and Diabetic Discharge Activity: Resume usual activity Patient Instructions: Dialysis Diet (DC), Hemodialysis (DC), Opioid Safety Discharge Attestations Time Spent in Discharge Care*: greater than 30 min Quality Metrics Clinical Quality Measures [ No reported AMI, CVA or VTE this stay] Coding Level of Care Code 10608 Total time (in minutes) for Discharge: 60 Diagnoses Acute renal failure with tubular necrosis N17.0 Acute renal failure type: with acute tubular necrosis
== END 2023-05-27 16:58 | disposition home or self-care (01) | DRG 871 ==
LOC: ER 20:07 → ICU 21:03 → MEDSURG 05-16 21:21
PROVIDERS: Hospitalist; Internal Medicine; Student in an Organized Health Care Education/Training Program; Surgery; Admitting Provider Internal Medicine; Emergency Provider Emergency Medicine; PCP Family Medicine; Visit Provider Internal Medicine
PROC: 0JH60XZ Insertion of Tunneled Vascular Access Device into Chest Subcutaneous Tissue and Fascia, Open Approach (ICD-10-PCS; principal; 2023-05-23 12:00)
DX: A41.9 Sepsis, unspecified organism (principal); N17.0 Acute kidney failure with tubular necrosis; R65.21 Severe sepsis with septic shock; U07.1 COVID-19; S32.020A Wedge compression fracture of second lumbar vertebra, initial encounter for closed fracture; S32.040A Wedge compression fracture of fourth lumbar vertebra, initial encounter for closed fracture; I13.0 Hypertensive heart and chronic kidney disease with heart failure and stage 1 through stage 4 chronic kidney disease, or unspecified chronic kidney disease; I47.20 Ventricular tachycardia, unspecified; E87.20 Acidosis, unspecified; E87.1 Hypo-osmolality and hyponatremia; L03.116 Cellulitis of left lower limb; L03.115 Cellulitis of right lower limb; T82.41XA Breakdown (mechanical) of vascular dialysis catheter, initial encounter; K92.0 Hematemesis; J96.11 Chronic respiratory failure with hypoxia; I48.91 Unspecified atrial fibrillation; E11.22 Type 2 diabetes mellitus with diabetic chronic kidney disease; N18.30 Chronic kidney disease, stage 3 unspecified; I50.9 Heart failure, unspecified; L89.152 Pressure ulcer of sacral region, stage 2; E87.5 Hyperkalemia; E86.1 Hypovolemia; Y82.9 Unspecified medical devices associated with adverse incidents; L29.9 Pruritus, unspecified; R27.8 Other lack of coordination; D50.9 Iron deficiency anemia, unspecified; M62.830 Muscle spasm of back; W19.XXXA Unspecified fall, initial encounter; E66.01 Morbid (severe) obesity due to excess calories; J44.9 Chronic obstructive pulmonary disease, unspecified; Z68.39 Body mass index [BMI] 39.0-39.9, adult; Z79.4 Long term (current) use of insulin; Z79.01 Long term (current) use of anticoagulants; Z87.891 Personal history of nicotine dependence
CPT/HCPCS: 36415; 36416; 36573; 36592; 51702; 71045; 74018; 74176; 76000; 76770; 77001; 80048; 80053; 80061; 81001; 82550; 82607; 82746; 82962; 83036; 83540; 83550; 83605; 83690; 83735; 83880; 83883; 84100; 84145; 84300; 84443; 84550; 85014; 85018; 85025; 85045; 85378; 86036; 86038; 86060; 86140; 86160; 86706; 86803; 87040; 87086; 87340; 87486; 87581; 87633; 87641; 90935; 93005; 94640; 94760; 96365; 96367; 96372; 96375; 96376; 97110; 97140; 97161; 97164; 97530; 99285; C1750; C1751; C8929; C9113; J0612; J0690; J1100; J1170; J1644; J1756; J1815; J1940; J2020; J2270; J2405; J2704; J2765; J3010; J3490; J7030; J7040; J7626; P9046; P9047; Q3014; Q4081; Q9956

== ENCOUNTER 2023-06-04 18:13 | Observation (INO) | payer MEDICAID, SELFPAY ==
[2023-06-04] VITALS (8 sets, daily range): BP systolic 105–132; BP diastolic 48–66; PULSE 75–95; RESP 14–24; TEMP 36.5–36.7; O2SAT 92–98; BMI 38.7; BMI 37.7
--- NOTE | 2023-06-04 19:15 | ED_ITS ---
HPI - Wound/Laceration 2 General: Chief Complaint: Wound/Laceration Stated Complaint: Bed Sores Time Seen by Provider: 06/04/23 18:37 History of Present Illness: 62-year-old male w/ PMH sig for A-fib, C HF, diabetes, lower extremity swelling, lymphedema, sacral ulcer, cellulitis of lower extremities, recent FRANCISCO resulting in temporary dialysis status. Patient reports he was discharged from the hospital on the fourth. He has not had dialysis since then. Patient cannot walk. Nobody can get him into a wheelchair or into a car. He has been unable to attend his dialysis sessions. He has become progressively swollen particularly in his lower extremities. He had sacral/gluteal ulcerations which have become much worse. His lower extremities are weeping and erythematous. He reports as long as he sits upright he does not have any respiratory symptoms. He has occasionally had some chills but no fever. He does still have a dialysis catheter in his right chest. He and his have been working on trying to get him placed to rehabilitation as they have determined that they are unable to care for him at home. Associated symptoms: Denies fever(s), nausea, syncope or vomiting Review of Systems 2 General: Reports: 10 or more systems reviewed and unremarkable except in HPI and below Const: Denies: fever(s) Eyes: Denies: change in vision ENMT: Denies: throat pain Card: Denies: chest pain or syncope Resp: Denies: dyspnea or productive cough GI: Denies: abdominal pain, nausea or vomiting : Denies: flank pain, dysuria or urinary frequency Musc: Denies: neck pain PFSH ED 2 PFSH: Medical History Bilateral lower leg cellulitis Metabolic acidosis Hyponatremia Hyperkalemia DKA (diabetic ketoacidosis) Falls Generalized weakness FRANCISCO (acute kidney injury) CHF (congestive heart failure) DM2 (diabetes mellitus, type 2) Chronic respiratory failure with hypoxia COPD (chronic obstructive pulmonary disease) Social History Smoking and tobacco/nicotine status: former use of tobacco/nicotine Physical Exam 2 Narrative: EXAM NARRATIVE: This is a chronically ill-appearing/deconditioned 62-year-old male who appears uncomfortable. He has a pillow under his left buttock trying to offload some pressure. He has a relatively normal examination from the waist up. However he has lymphedema appearance of both lower extremities. He has wraps around his feet and ankles that are completely soaked and malodorous. He has edema extending from above the wraps up both of his calves above the knees and into his thighs and connecting to his gluteal fold region. He has significant excoriations around where the gluteus region meets the thighs and a little bit around the sacral region. He has mild erythema and edema of the scrotum without any signs of necrotizing infection. The ulcerations do not extend into the muscle or fascia. No tracking. No purulence. They are extremely tender. The patient is unable to lift his legs due to the weight of them combined with deconditioning. Const: COMMON NORMALS: no limitations and alert EXAM LIMITATIONS: no altered mental status HENMT: COMMON NORMALS: normocephalic, atraumatic and external ears normal H EAD & SCALP: normocephalic and atraumatic EXTERNAL EAR: Yes external ears normal MOUTH: no muffled voice Eye: COMMON NORMALS: EOMs intact bilaterally, conjunctivae normal and no scleral icterus CONJUNCTIVA: Yes conjunctivae normal Neck/C-Spine: GENERAL: Yes normal visual inspection and Yes trachea midline Resp: COMMON NORMALS: normal respiratory effort, No use of accessory muscles and clear to auscultation bilaterally AUSCULTATION: clear to auscultation bilaterally Cardio: COMMON NORMALS: regular rate RATE: regular rate GI: COMMON NORMALS: Soft to palpation and non-tender PALPATION: Yes Soft to palpation and No Guarding due to palpation present (GI) Neuro: COMMON NORMALS: moves all extremities, no focal motor deficits and no sensory deficits noted SENSORIUM/ORIENTATION: Yes alert SPEECH: speech normal Course 2 Vital Signs: Vital signs: Vital Signs Temperature 97.7 F 06/04/23 18:20 Pulse Rate 80 06/04/23 21:26 Respiratory Rate 17 06/04/23 21:38 Blood Pressure 105/48 06/04/23 21:26 Pulse Oximetry 98 06/04/23 21:38 Oxygen Delivery Me thod Room Air 06/04/23 19:48 MDM - Wound/Laceration Medical Decision Making 62-year-old male with lymphedema, recent kidney injury requiring dialysis, recent cellulitis with sepsis, worsening of pressure sores who is unable to manage at home. He has not been able to get to dialysis. He has become progressively swollen in his lower extremities. He now has erythema in both lower extremities and tenderness of the erythema in the right lower extremity extending up the medial and posterior aspect of the thigh. He probably has cellulitis although pain could also simply be due to the increased compartment pressures and not being able to walk/move/adjust in bed. The patient is going to need CMP to check for any signs of hyperkalemia, metabolic disturbances, other electrolyte abnormalities to see if he needs emergent dialysis. He cannot manage at home so I am anticipating admission to the hospital. We will also be checking his blood sugar. He is not presenting with sepsis today so I did not order blood cultures. However, I am going to start Rocephin and doxycycline for presumed cellulitis. It looks like he might of had a drug allergy while in the hospital, vancomycin was on the list of possibilities. This is the reason I have chosen Rocephin and doxycycline. I have ordered pain control for his back and ulcers. Lab Data 06/04/23 19:37 06/04/23 19:37 Laboratory Results WBC 8.48 10^3/uL (3.29-11.43) 06/04/23 19:37 RBC 3.54 10^6/uL (3.85-5.65) L 06/04/23 19:37 Hgb 10.80 g/dL (11.27-16.99) L 06/04/23 19:37 Hct 34.6 % (37-53) L 06/04/23 19:37 MCV 97.7 fl (82-101) 06/04/23 19:37 MCH 30.5 pg (27-33) 06/04/23 19:37 MCHC 31.2 g/dL (30-55) 06/04/23 19:37 RDW 16.4 % (12.1-15.1) H 06/04/23 19:37 Plt Count 253 10^3/cmm (157-399) 06/04/23 19:37 MPV 9.9 fL (7.4-10.4) 06/04/23 19:37 Neut % (Auto) 82.8 % 06/04/23 19:37 Lymph % (Auto) 4.1 % 06/04/23 19:37 [place] % (Auto) 8.0 % 06/04/23 19:37 Eos % (Auto) 4.1 % 06/04/23 19:37 Baso % (Auto) 0.5 % 06/04/23 19:37 Neut # (Auto) 7.02 10^3/uL (1.8-7.7) 06/04/23 19:37 Lymph # (Auto) 0.4 10^3/uL (0.8-4.8) L 06/04/23 19:37 [place] # (Auto) 0.7 10^3/uL (0.2-0.9) 06/04/23 19:37 Eos # (Auto) 0.4 10^3/uL (0.0-0.8) 06/04/23 19:37 Baso # (Auto) 0.0 10^3/uL (0.0-0.1) 06/04/23 19:37 Nucleated RBC % (auto) 0 % 06/04/23 19:37 Nucleated RBCs # 0.0 /100WBC 06/04/23 19:37 Sodium 140 mmol/L (136-145) 06/04/23 19:37 Potassium 3.8 mmol/L (3.5-5.1) 06/04/23 19:37 Chloride 105 mmol/L (98-107) 06/04/23 19:37 Carbon Dioxide 22 mmol/L (22-29) 06/04/23 19:37 Anion Gap 16.8 (5-19) 06/04/23 19:37 BUN 46 mg/dL (8-23) H 06/04/23 19:37 Creatinine 2.1 mg/dL (0.7-1.2) H 06/04/23 19:37 GFR Calculation 32.4 mL/min (90-130) L 06/04/23 19:37 Glucose 114 mg/dL (65-115) 06/04/23 19:37 Calculated Osmolality 303 mOsm/kg (285-295) H 06/04/23 19:37 Calcium 9.1 mg/dL (8.5-10.5) 06/04/23 19:37 Phosphorus 2.3 mg/dL (2.5-4.5) L 06/04/23 19:37 Magnesium 2.2 mg/dL (1.7-2.3) 06/04/23 19:37 Total Bilirubin 0.4 mg/dL (0.15-1.2) 06/04/23 19:37 AST 8 U/L (0-40) 06/04/23 19:37 ALT 7 U/L (0-41) 06/04/23 19:37 Alkaline Phosphatase 219 U/L (40-130) H 06/04/23 19:37 Creatine Kinase 30 U/L (39-308) L 06/04/23 19:37 Total Protein 6.5 g/dL (6.6-8.7) L 06/04/23 19:37 Albumin 3.3 g/dL (3.5-5.2) L 06/04/23 19:37 Globulin 3.2 g/dL (1.3-4.6) 06/04/23 19:37 No radiology studies performed this visit Discharge Plan Discharge Condition: Stable Prescriptions: No Action hydrocodone-acetaminophen 10-325 mg tablet 1 tab PO Q6H PRN (Reason: pain) Qty: 14 0RF cyclobenzaprine 10 mg tablet 10 mg PO Q8H Qty: 14 0RF sucralfate 100 mg/mL Suspension 1 g PO BID Qty: 60 0RF Stool Softener-Laxative 8.6-50 mg Tablet 1 tab PO DAILY Qty: 60 0RF folic acid 1 mg Tablet 1 mg PO BID Qty: 60 0RF Calphron 667 mg Tablet 1,334 mg PO TIDWM Qty: 90 0RF Novolog FlexPen U-100 Insulin 100 unit/mL (3 mL) insulin pen See Rx Instructions .ROUTE .COMPLEX Qty: 15 0RF Rx Instructions: INJECT SUBCUTANEOUSLY FOLLOWS PER SLIDING SCALE. 141-180-4 UNITS, 181- 220=6 UNITS, 221-260=8 UNITS, 261-300=11 UNITS, >321=15 UNITS. Levemir FlexPen 100 unit/mL (3 mL) insulin pen 8 unit SUBCUT DAILY Qty: 15 0RF gabapentin 100 mg capsule 100 mg PO BID Qty: 60 0RF albuterol sulfate 2.5 mg /3 mL (0.083 %) solution for nebulization 2.5 mg inhalation Q4H PRN (Reason: Shortness Of Breath) amiodarone 200 mg tablet 200 mg PO DAILY silver sulfadiazine [SSD] 1 % cream 1 applic TOPICAL DAILY Eliquis 5 mg tablet 5 mg PO BID metoprolol tartrate 50 mg tablet 25 mg PO BID 30 Days Qty: 15 0RF epinephrine 0.3 mg/0.3 mL auto-injector 0.3 mg IM Q10M PRN (Reason: anaphylaxis) Qty: 2 0RF Rx Instructions: for 2 doses Referrals: Misty Ibrahim [Primary Care Provider] - Coding Level of Care Code ED Regional Coordinator for [facility]
[2023-06-04 20:07] LABS: Basophils % 0.5 %; Eosinophils # 0.4 10^3/uL (0.0-0.8); Eosinophils % 4.1 %; Hematocrit 34.6 % (37-53); Lymphocytes # 0.4 10^3/uL (0.8-4.8); Lymphocytes % 4.1 %; Mean Corpuscular HGB Conc 31.2 g/dL (30-55); Mean Corpuscular Hemoglobin 30.5 pg (27-33); Mean Corpuscular Volume 97.7 fl (82-101); Mean Platelet Volume 9.9 fL (7.4-10.4); Monocytes # 0.7 10^3/uL (0.2-0.9); Neutrophils # 7.02 10^3/uL (1.8-7.7); Neutrophils % 82.8 %; Nucleated Red Blood Cells % 0 %; Platelet Count 253 10^3/cmm (157-399); Red Blood Count 3.54 10^6/uL (3.85-5.65); Red Cell Distribution Width 16.4 % (12.1-15.1); White Blood Count 8.48 10^3/uL (3.29-11.43)
[2023-06-04] MEDS: doxycycline 100 MG in sodium chloride 0.9% (plus) 100 ML IV (20:14)
[2023-06-04] MEDS: water for injection-sterile SDV 10 mL 2.1 ML IM (20:15)
[2023-06-04] MEDS: cefTRIAXone 1,000 mg SDV 1000 MG IM (20:15)
[2023-06-04 20:24] LABS: Alanine Aminotransferase 7 U/L (0-41); Albumin Level 3.3 g/dL (3.5-5.2); Alkaline Phosphatase 219 U/L (40-130); Blood Urea Nitrogen 46 mg/dL (8-23); Calcium 9.1 mg/dL (8.5-10.5); Carbon Dioxide 22 mmol/L (22-29); Chloride 105 mmol/L (98-107); Creatine Phosphokinase 30 U/L (39-308); Globulin 3.2 g/dL (1.3-4.6); Glomerular Filtration Rate 32.4 mL/min (90-130); Glucose 114 mg/dL (65-115); Magnesium 2.2 mg/dL (1.7-2.3); Osmolality Calculated 303 mOsm/kg (285-295); Phosphorus 2.3 mg/dL (2.5-4.5); Sodium 140 mmol/L (136-145); Total Bilirubin 0.4 mg/dL (0.15-1.2); Total Protein 6.5 g/dL (6.6-8.7)
[2023-06-04 20:26] LABS: Anion Gap 16.8 (5-19); Aspartate Amino Transferase 8 U/L (0-40); Potassium 3.8 mmol/L (3.5-5.1)
[2023-06-04] MEDS: HYDROmorphone 1 mg/mL INJ 1 mL IVP (20:30)
[2023-06-04] MEDS: ondansetron 2 mg/ML SDV 2 mL 4 MG IVP (20:31)
[2023-06-04] MEDS: morphine 4 mg/mL SDV 1 mL IVP (21:38)
--- NOTE | 2023-06-04 22:27 | PC.NURSE ---
report called to SUSAN Golden on Med-Surg. No further questions at this time.
[2023-06-05] VITALS (16 sets, daily range): BP systolic 97–146; BP diastolic 50–67; PULSE 64–100; RESP 16–20; TEMP 36.8–37.6; O2SAT 94–98
--- NOTE | 2023-06-05 00:15 | P.HP_ITS ---
Providers/Chief Complaint 2 Admitting Physician: Jen Albright MD Primary Care Provider: Misty Ibrahim Chief Complaint: Bed Sores History of Present Illness Geronimo Barahona is a 62 year old male who has history of A-fib, CHF, diabetes, lower extremity swelling, lymphedema, sacral ulcer, cellulitis of lower extremities, history of multiple admissions recently. Most recently patient was discharged from the hospital on May 27, 2022 after being treated for cellulitis and initiation of hemodialysis for worsening renal function. Since returning home patient has been unable to care for himself. He has been unable to move out of his bed to perform ADLs. He has not been to dialysis since discharge as he was unable to get out of bed. His is away and works for most part of the week and is unable to help him at home. He returned to the ER today as he has been unable to care for himself. His lower extremities continued to be swollen with chronic lymphedema. They are noted to have serous discharge and leakage. He also has sacral/gluteal ulcerations which appear to have worsened since his last admission. There are changes of chronic stasis dermatitis involving both extremities. He is mildly tachypneic, there are rails on exam, he needs dialysis. Review of Systems 2 General: Reports: 10 or more systems reviewed and unremarkable except in HPI and below Const: Denies: fever(s), chills or body aches Eyes: Denies: change in vision, blurry vision or photophobia ENMT: Reports: hoarseness; Denies: throat pain, enlarged tonsils, odynophagia or nasal congestion Card: Denies: chest pain, palpitations, irregular heart rhythm, edema, swelling of feet/ankles, lightheadedness, pre-syncope, dyspnea on exertion or orthopnea Resp: Denies: dyspnea, productive cough, non-productive cough, wheezing, stridor, pain on inspiration, change in phlegm color, hemoptysis or chest congestion GI: Denies: abdominal pain, nausea, vomiting, hematemesis, coffee ground emesis, dysphagia, heartburn, diarrhea, constipation, GI cramping, change in stool character, hematochezia or melena : Denies: flank pain, dysuria, urinary frequency, urinary urgency, urinary hesitancy or hematuria Musc: Denies: neck pain, back pain, extremity pain, joint swelling, joint warmth or deformity Neuro: Denies: headache(s), numbness in extremities, weakness in extremities, sensory changes, difficulty walking, frequent falls, dizziness, vertigo, behavioral changes, Slurred speech present or seizure-like activity Psych: Denies: anxiety, depression, suicidal ideation or homicidal ideation Endo: Denies: polyuria, polydipsia, tired all the time, cold intolerance or hot flashes Jerome/Lymph: Denies: easy bruising or easy bleeding Medications/Allergies Home Medications Medication Instructions Recorded Confirmed Last Taken Type albuterol sulfate 2.5 mg/3 mL 2.5 mg inhalation Q4H PRN 10/03/22 05/14/23 Unknown History (0.083 %) solution for nebulization Shortness Of Breath amiodarone 200 mg tablet 200 mg PO DAILY 10/03/22 05/14/23 Unknown History apixaban 5 mg tablet (Eliquis) 5 mg PO BID 03/11/23 05/14/23 Unknown History silver sulfadiazine 1 % topical 1 applic topical DAILY 03/11/23 05/14/23 Unknown History cream (SSD) epinephrine 0.3 mg/0.3 mL 0.3 mg (0.3 mL) IM Q10M PRN 03/17/23 05/14/23 Unknown Rx injection, auto-injector anaphylaxis #2 ea metoprolol tartrate 50 mg tablet 25 mg (1/2 x 50 mg) PO BID 30 days 03/17/23 05/14/23 Unknown Rx #15 tabs cyclobenzaprine 10 mg tablet 10 mg PO Q8H #14 tabs 05/07/23 05/14/23 Unknown Rx hydrocodone 10 mg-acetaminophen 1 tab PO Q6H PRN pain #14 tabs 05/07/23 05/14/23 Unknown Rx 325 mg tablet calcium acetate 667 mg tablet 1,334 mg (2 x 667 mg) PO TIDWM #90 05/27/23 Unknown Rx (Calphron) tabs folic acid 1 mg tablet 1 mg PO BID #60 tabs 05/27/23 Unknown Rx gabapentin 100 mg capsule 100 mg PO BID #60 caps 05/27/23 05/14/23 Unknown Rx insulin aspart U-100 100 unit/mL See Rx Instructions .Route 05/27/23 05/14/23 Unknown Rx (3 mL) subcutaneous pen (Novolog .COMPLEX #15 mL FlexPen U-100 Insulin aspart) insulin detemir U-100 100 unit/mL 8 unit (0.08 mL) SUBCUT DAILY #15 05/27/23 05/14/23 Unknown Rx (3 mL) subcutaneous pen (Levemir mL FlexPen) sennosides 8.6 mg-docusate sodium 1 tab PO DAILY #60 tabs 05/27/23 Unknown Rx 50 mg tablet (Stool Softener-Laxative) sucralfate 100 mg/mL oral 1 g (10 mL) PO BID #60 mL 05/27/23 Unknown Rx suspension Allergies Allergy/AdvReac Type Severity Reaction Status Date / Time amoxicillin [From Augmentin] Allergy Mild rash Verified 06/04/23 18:28 clavulanic acid Allergy Mild rash Verified 06/04/23 18:28 [From Augmentin] levofloxacin Allergy Mild rash Verified 06/04/23 18:28 PFSH Acute 2 PFSH: Medical History Bilateral lower leg cellulitis Metabolic acidosis Hyponatremia Hyperkalemia DKA (diabetic ketoacidosis) Falls Generalized weakness FRANCISCO (acute kidney injury) CHF (congestive heart failure) DM2 (diabetes mellitus, type 2) Chronic respiratory failure with hypoxia COPD (chronic obstructive pulmonary disease) Social History Smoking and tobacco/nicotine status: former use of tobacco/nicotine Vitals/I&O/Wt Last Vital Signs Temp 98.0 F 06/04/23 23:48 Pulse 87 06/04/23 23:48 Resp 24 H 06/04/23 23:48 BP 123/66 06/04/23 23:48 Pulse Ox 95 06/04/23 23:48 O2 Del Method Room Air 06/04/23 23:48 06/04/23 06/04/23 06/05/23 14:59 22:59 06:59 Intake Total 100 / 100 Balance 100 / 100 Weight last 48 hrs Weight 126.099 kg Weight 129.727 kg Physical Exam 2 Narrative: General: No acute distress, AO x3 HEENT: PERRLA, pupils bilaterally equal and reactive, pallors not present Chest: Normal vesicular breath sounds, no added sounds, equal good air entry bilaterally CVS: S1-S2 regular, no murmurs, no tachycardia, no gallops, no rubs Abdomen: Soft, nontender, no organomegaly, bowel sounds present Neuro: No focal deficits, no facial deformity, AO x3, power 5/5 in all limbs Extremities: B/L LE lymphedema with weeping , dry scaly skin , changes of chronic stasis dermatitis Data 06/04/23 19:37 06/04/23 19:37 A&P Assessment and plan (1) Fluid overload: (2) Hemodialysis status: (3) Inability to perform activities of daily living: (4) Chronic respiratory failure with hypoxia: (5) Stasis dermatitis: (6) Lymphedema: Plan 62-year-old with multiple hospital admissions as noted above, recently started on hemodialysis via tunneled HD cath, presented to the hospital today after recent discharge on May 27, 2023 as he was unable to manage any of his ADLs at home. He has not been to dialysis since discharge due to inability to get out of his bed. He reports increased generalized weakness since discharge. He has Rales on exam today and is overall hypervolemic. Consult nephrology to have dialysis today. He is noted to have chronic weeping and changes of stasis dermatitis involving his bilateral lower extremities, OT consulted to continue lymphedema wraps and care. No leukocytosis, patient is afebrile. Monitor off antimicrobials for now as changes appear more consistent with stasis dermatitis than active cellulitis. PT OT eval and treat to determine appropriate disposition. May need continued rehab at alf facility to be able to return to his previous level of functioning. Continue home medications incl amiodarone, Eliquis and insulin Attestations 2 Medical Necessity Statement*: > 2 midnight admission is anticipated Coding Level of Care Code Acute Code for Chg Fwd Moderate MDM includes number and complexity of problems actively addressed during encounter, amount and/or complexity of data reviewed/ordered and described risk of complication, morbidity or mortality of management as documented Diagnoses Fluid overload E87.70 Hemodialysis status Z99.2 Inability to perform activities of daily living Z78.9 Chronic respiratory failure with hypoxia J96.11 Stasis dermatitis I87.2 Lymphedema I89.0
[2023-06-05] MEDS: morphine 4 mg/mL SDV 1 mL 2 MG IVP ×4 (01:07→20:01)
[2023-06-05] MEDS: HYDROcodone-acetaminophen 5-325 mg Tablet 1 TAB PO ×3 (02:28→17:21)
[2023-06-05] MEDS: sucralfate 1 gm Tablet PO ×3 (06:03→20:00)
[2023-06-05 06:37] LABS: Glucose Point of Care 165 mg/dL (70-110)
--- NOTE | 2023-06-05 07:39 | PC.NURSE ---
This nurse assessed severe cellulitis on BLE. multiple stage 2 pressure wounds noted on the sacrum region, Inguinal region has severe excoriation. MD made aware, no new orders were received.
[2023-06-05] MEDS: insulin lispro 100 unit/1 mL SUBCUT ×2 (08:38→21:42)
[2023-06-05] MEDS: amiodarone 200 mg Tablet PO (08:39)
[2023-06-05] MEDS: apixaban 5 mg Tablet PO ×2 (08:39→20:00)
[2023-06-05] MEDS: pantoprazole DR 40 mg Tablet PO (08:39)
[2023-06-05] MEDS: gabapentin 100 mg Capsule PO ×2 (08:39→17:19)
[2023-06-05] MEDS: metoprolol tartrate 25 mg Tablet PO ×2 (08:39→20:00)
--- NOTE | 2023-06-05 08:39 | PC.PHAR ---
Addendum entered by Vielka Vasquez 06/05/23 15:41: PTS VERIFIED PTS MEDICATIONS-SADIA STATES SHE HAS BEEN GIVING THE PT ELIQUIS 5MG QPM EXT SHOWS LAST FILLED 03/28/23 30D/S 5MG BID-PTS STATES THE PTS GLIPIZIDE 10MG BID AND JARDIANCE 25MG QAM WAS DCED A WEEK AGO-NOTES ARE MADE IN THE PHARMACY COMMENTS Addendum entered by Vielka Vasquez 06/05/23 11:48: called pts again still no answer Original Note: pt states his takes care of his medications-pt states his doesnt get off work till around 15:00 or so-called pts sadia [phone] no answer
--- NOTE | 2023-06-05 09:45 | PC.OT ---
PER ; JOHANNE OT LYMPHEDEMA EVALUATION UNTIL FRIDAY 06/09
[2023-06-05] MEDS: heparin, porcine 1,000 unit/mL INJ 10 mL 1000 UNIT IV (10:03)
[2023-06-05] MEDS: heparin, porcine 1,000 unit/mL INJ 10 mL 10000 UNIT INTRACATH (10:03)
[2023-06-05] MEDS: albumin 12.5 GM/50 ML VIAL IV (10:03)
[2023-06-05] MEDS: epoetin alfa 1000 Unit/0.05 mL (ESRD) 20000 UNIT IVP (10:05)
[2023-06-05 10:37] LABS: Glucose Point of Care 116 mg/dL (70-110)
--- NOTE | 2023-06-05 10:42 | W.PM.EVENTAC ---
Event Note Event Note: Patient has been noncompliant with his medications, did not attend dialysis as per the case management his transport was arranged, I will request Amalia for wound care Patient has been given lymphedema wraps in the past Due for dialysis No active chest pain or shortness of breath Laying flat currently on 2 L
--- NOTE | 2023-06-05 12:48 | PM.CONSULT ---
Providers/Reason For Consult Consulting Physician/Specialty*: kommana/Nephrology Reason for Consult*: ESRD Attending Physician: Erick Rodriguez MD Primary Care Provider: Misty Ibrahim History of Present Illness History of Present Illness Geronimo Barahona is a 62 year old male 62-year-old male with past medical history of CHF, diabetes, A-fib bilateral lower extremity lymphedema, sacral ulcer, was recently discharged from the hospital. Patient was initiated on hemodialysis during last admission due to worsening renal function and anasarca. Patient was discharged on May 28 but was unable to manage his ADLs, did not go for his dialysis and now presents with weakness. In the ER vital signs are stable, lab data significant for hemoglobin of 10.8 sodium 140 and creatinine 2.1. Chest x-ray showed pulmonary vascular congestion. Review of Systems Narrative: Other ROS negative Medications/Allergies Home Medications Medication Instructions Recorded Confirmed Last Taken Type albuterol sulfate 2.5 mg/3 mL 2.5 mg inhalation Q4H PRN 10/03/22 06/05/23 Unknown History (0.083 %) solution for nebulization Shortness Of Breath amiodarone 200 mg tablet 200 mg PO QAM 10/03/22 06/05/23 Unknown History apixaban 5 mg tablet (Eliquis) 5 mg PO QPM 03/11/23 06/05/23 Unknown History silver sulfadiazine 1 % topical 1 applic topical DAILY 03/11/23 06/05/23 Unknown History cream (SSD) epinephrine 0.3 mg/0.3 mL 0.3 mg (0.3 mL) IM Q10M PRN 03/17/23 06/05/23 Unknown Rx injection, auto-injector anaphylaxis #2 ea calcium acetate 667 mg tablet 1,334 mg (2 x 667 mg) PO TIDWM #90 05/27/23 06/05/23 Unknown Rx (Calphron) tabs folic acid 1 mg tablet 1 mg PO BID #60 tabs 05/27/23 06/05/23 Unknown Rx gabapentin 100 mg capsule 100 mg PO BID #60 caps 05/27/23 06/05/23 Unknown Rx insulin aspart U-100 100 unit/mL See Rx Instructions .Route 05/27/23 06/05/23 Unknown Rx (3 mL) subcutaneous pen (Novolog .COMPLEX #15 mL FlexPen U-100 Insulin aspart) insulin detemir U-100 100 unit/mL 8 unit (0.08 mL) SUBCUT DAILY #15 05/27/23 06/05/23 Unknown Rx (3 mL) subcutaneous pen (Levemir mL FlexPen) amlodipine 10 mg tablet 10 mg PO QAM 06/05/23 06/05/23 Unknown History metoprolol tartrate 50 mg tablet 50 mg PO BID 06/05/23 06/05/23 Unknown History sennosides 8.6 mg-docusate sodium 1 tab PO DAILY PRN Constipation 06/05/23 06/05/23 Unknown History 50 mg tablet (Stool Softener-Laxative) Allergies Allergy/AdvReac Type Severity Reaction Status Date / Time amoxicillin [From Augmentin] Allergy Mild rash Verified 06/05/23 15:29 clavulanic acid Allergy Mild rash Verified 06/05/23 15:29 [From Augmentin] levofloxacin Allergy Mild rash Verified 06/05/23 15:29 Current Medications Generic Name Dose Route Start Last Admin Trade Name Freq PRN Reason Stop Dose Admin Hydrocodone Bitart/Acetaminophen 1 tab 06/05/23 00:13 06/05/23 08:38 Hydrocodone-Acetaminophen 5-325 Mg Tablet PO 1 tab Q6H PRN Administration MODERATE PAIN Amiodarone HCl 200 mg 06/05/23 09:00 06/05/23 08:39 Amiodarone 200 Mg Tablet PO 200 mg DAILY JAIDEN Administration Apixaban 5 mg 06/05/23 09:00 06/05/23 08:39 Apixaban 5 Mg Tablet PO 5 mg BID@0900,2100 JAIDEN Administration Gabapentin 100 mg 06/05/23 09:00 06/05/23 08:39 Gabapentin 100 Mg Capsule PO 100 mg BID JAIDEN Administration Albumin Human 12.5 gm in 50 mls @ 60 mls/hr 06/05/23 08:38 06/05/23 10:55 Albumin IV Infused PRN PRN Infusion Hypotension and/or symptomatic Insulin Human Lispro 0 unit 06/05/23 08:00 06/05/23 11:42 Insulin Lispro 100 Unit/1 Ml SUBCUT Not Given WM&BEDTIME [facility] Protocol Lactic Acid 1 applic 06/05/23 09:00 06/05/23 10:12 Ammonium Lactate Lotion 226 Gm Btl TOPICAL Not Given BID [facility] Metoprolol Tartrate 25 mg 06/05/23 09:00 06/05/23 08:39 Metoprolol Tartrate 25 Mg Tablet PO 25 mg BID@0900,2100 JAIDEN Administration Morphine Sulfate 2 mg 06/05/23 00:09 06/05/23 07:34 Morphine 4 Mg/Ml Sdv 1 Ml IVP 2 mg Q4H PRN Administration SEVERE PAIN Pantoprazole Sodium 40 mg 06/05/23 09:00 06/05/23 08:[address] 40 Mg Tablet PO 40 mg DAILY JAIDEN Administration Sucralfate 1 gm 06/05/23 07:00 06/05/23 11:43 Sucralfate 1 Gm Tablet PO Not Given AC&BEDTIME JAIDEN PFSH Acute PFSH: Medical History Bilateral lower leg cellulitis Metabolic acidosis Hyponatremia Hyperkalemia DKA (diabetic ketoacidosis) Falls Generalized weakness FRANCISCO (acute kidney injury) CHF (congestive heart failure) DM2 (diabetes mellitus, type 2) Chronic respiratory failure with hypoxia COPD (chronic obstructive pulmonary disease) Social History Smoking and tobacco/nicotine status: former use of tobacco/nicotine Vitals/I&O/Wt Last Vital Signs Temp 98.8 F 06/05/23 11:52 Pulse 64 06/05/23 11:52 Resp 18 06/05/23 11:52 BP 146/57 06/05/23 11:52 Pulse Ox 94 06/05/23 11:52 O2 Del Method Nasal Cannula 06/05/23 09:20 O2 Flow Rate 2 06/05/23 09:20 06/04/23 06/05/23 06/05/23 22:59 06:59 14:59 Intake Total 1100 / 1100 530 / 530 Output Total 100 / 100 Balance 1000 / 1000 530 / 530 Weight last 48 hrs Weight 129.274 kg Weight 126.099 kg Weight 129.727 kg Physical Exam Narrative: awake,alert + EDEMA Data 06/04/23 19:37 06/04/23 19:37 A&P Assessment and plan (1) ESRD (end stage renal disease) on dialysis: Plan Pain 1. End-stage renal disease: Recently initiated on dialysis, 2. Anemia: Hemoglobin 10.8, monitor 3. Hypertension: Restarted home meds 4. Bilateral lower extremity lymphedema 5. History of CHF now now with pulmonary edema Plan: Hemodialysis today, CHUCK ordered, ultrafiltration as tolerated Patient evaluated using audiovisual cart. Time spent 40 minutes. Consult Attestations Medical Necessity Statement: Per medicine team Coding Level of Care Code Acute Code for Chg Fwd Diagnoses ESRD (end stage renal disease) on dialysis N18.6; Z99.2
[2023-06-05 17:00] LABS: Glucose Point of Care 106 mg/dL (70-110)
[2023-06-05] MEDS: bacitracin ointment 28 gm 1 APPLIC TOPICAL (17:19)
[2023-06-05] MEDS: doxycycline 100 mg Tablet PO (17:19)
[2023-06-05] MEDS: ammonium lactate lotion 226 gm Btl 1 APPLIC TOPICAL (17:20)
[2023-06-05] MEDS: nystatin powder 15 gm Btl 1 APPLIC TOPICAL (18:22)
[2023-06-05 21:37] LABS: Glucose Point of Care 172 mg/dL (70-110)
[2023-06-06] VITALS (9 sets, daily range): BP systolic 104–112; BP diastolic 50–62; PULSE 69–87; RESP 16–17; TEMP 36.7–37.4; O2SAT 94–99
[2023-06-06 05:21] LABS: Basophils % 0.5 %; Eosinophils # 0.3 10^3/uL (0.0-0.8); Eosinophils % 4.8 %; Hematocrit 28.6 % (37-53); Lymphocytes # 0.4 10^3/uL (0.8-4.8); Lymphocytes % 5.9 %; Mean Corpuscular HGB Conc 30.1 g/dL (30-55); Mean Corpuscular Hemoglobin 30.6 pg (27-33); Mean Corpuscular Volume 101.8 fl (82-101); Monocytes # 0.6 10^3/uL (0.2-0.9); Monocytes % 8.9 %; Neutrophils # 5.12 10^3/uL (1.8-7.7); Neutrophils % 79.4 %; Nucleated Red Blood Cells % 0 %; Platelet Count 182 10^3/cmm (157-399); Red Blood Count 2.81 10^6/uL (3.85-5.65); Red Cell Distribution Width 16.5 % (12.1-15.1); White Blood Count 6.44 10^3/uL (3.29-11.43)
[2023-06-06 05:46] LABS: Alanine Aminotransferase < 5 U/L (0-41); Alkaline Phosphatase 165 U/L (40-130); Anion Gap 13.4 (5-19); Aspartate Amino Transferase 6 U/L (0-40); Blood Urea Nitrogen 28 mg/dL (8-23); Calcium 8.3 mg/dL (8.5-10.5); Carbon Dioxide 26 mmol/L (22-29); Chloride 103 mmol/L (98-107); Globulin 2.6 g/dL (1.3-4.6); Glomerular Filtration Rate 32.4 mL/min (90-130); Glucose 144 mg/dL (65-115); Osmolality Calculated 296 mOsm/kg (285-295); Potassium 3.4 mmol/L (3.5-5.1); Sodium 139 mmol/L (136-145); Total Bilirubin 0.6 mg/dL (0.15-1.2); Total Protein 5.6 g/dL (6.6-8.7)
[2023-06-06] MEDS: sucralfate 1 gm Tablet PO ×4 (06:20→20:44)
[2023-06-06 07:13] LABS: Glucose Point of Care 166 mg/dL (70-110)
[2023-06-06] MEDS: HYDROcodone-acetaminophen 5-325 mg Tablet 1 TAB PO ×3 (08:25→22:38)
[2023-06-06] MEDS: gabapentin 100 mg Capsule PO ×2 (08:25→17:44)
[2023-06-06] MEDS: apixaban 5 mg Tablet PO ×2 (08:25→20:44)
[2023-06-06] MEDS: doxycycline 100 mg Tablet PO ×2 (08:25→17:44)
[2023-06-06] MEDS: pantoprazole DR 40 mg Tablet PO (08:25)
[2023-06-06] MEDS: insulin lispro 100 unit/1 mL SUBCUT ×3 (08:56→21:27)
--- NOTE | 2023-06-06 09:24 | PC.CHAP ---
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 [] Patient/Family/Request visit [] Outpatient visit [] Follow-up visit [] Physician referral [] Code/Alert [x] Routine visit [] Staff referral [] Actively dying [] Patient sleeping [] Family support [] [] Out of room [] Palliative care [] [] Receiving care in room [] Pre-surgical visit [] Trauma [] Long length of stay [] ICU visit [] Other: Relational/Emotional Strength [x] Patient feels connected with others/family/visitors/staff [] Distress [] Loneliness/isolation [] Abandonment Spirituality of Patient [x] Person of Naila [] Attends Congregational of their Naila [x] Believes in Prayer [] Reads Bible or Samaritan materials [] There are Spiritual issues to be addressed Multimedia Services Manager Interventions [x] Prayer [x] Active listening [] Non-anxious presence [x] Spiritual/emotional support [] Crisis/trauma care [] Spiritual counseling [] Bereavement support [] Provided bereavement packet [] Provided Bible/devotional materials [] Provided toy/stuffed animal, coloring book to patient or family member [] Provided Communion [] Anointing/[place] [] Salvation [x] Completed spiritual assessment [] Other: Impact on Illness or Injury [] Angry [] Fearful [] Anxious [] Often cries [] Exhaustion [] Unable to work [] Unable to attend zoroastrian [] Unable to walk/stand [] Unable to read [] Unable to drive [] Unable to eat/drink [] Unable to sleep [] Unable to be with family [] Patient intubated [] Other: Summary Time spent with patient 5 min
[2023-06-06] MEDS: amiodarone 200 mg Tablet PO (09:49)
[2023-06-06] MEDS: metoprolol tartrate 25 mg Tablet PO ×2 (09:49→20:44)
--- NOTE | 2023-06-06 10:44 | PM.PN ---
Subjective Subjective: Awaiting placement Status post dialysis Hemoglobin stable No overnight events Somewhat agreeable to go to correction Vitals/I&O/Wt Last Vital Signs Temp 98.6 F 06/06/23 08:32 Pulse 87 06/06/23 09:02 Resp 17 06/06/23 09:02 BP 108/56 06/06/23 08:32 Pulse Ox 94 06/06/23 09:02 O2 Del Method Nasal Cannula 06/06/23 09:02 O2 Flow Rate 2 06/06/23 09:02 06/05/23 06/06/23 06/06/23 22:59 06:59 14:59 Intake Total 480 / 1410 1000 / 2410 480 / 480 Output Total 75 / 2975 100 / 100 Balance 405 / -1565 1000 / -565 380 / 380 Weight last 48 hrs Weight 125.702 kg Weight 135.3 kg Weight 129.274 kg Weight 126.099 kg Weight 129.727 kg Physical Exam Narrative: Anasarca Lower extremity venous stasis dermatitis with cellulitis Lymphedema with combination of venous stasis dermatitis Currently on 2 L Hemodynamic stable Abdomen distended nontender Awake and alert GCS 15 Nonfocal neuroexam Data 06/06/23 04:29 06/06/23 04:29 A&P Assessment and plan (1) CHF (congestive heart failure): (2) Afib: (3) Bradycardia: (4) Stasis dermatitis: (5) Fluid overload: (6) Acute kidney failure: Qualifiers: Acute renal failure type: with acute tubular necrosis Qualified Code(s): N17.0 - Acute kidney failure with tubular necrosis (7) Hemodialysis status: (8) Kidney dysfunction: (9) ESRD (end stage renal disease) on dialysis: (10) Cellulitis: (11) Pressure sore on buttocks: (12) Chronic respiratory failure with hypoxia: (13) Inability to perform activities of daily living: (14) Lymphedema: Plan End-stage renal disease: Nephro consulted Will continue dialysis Chronic hypoxia currently on 2 L A-fib without RVR Hemodynamic stable Continue anticoagulating agent Sacral ulcer, diabetic foot ulcer Will touch base with wound care nurse Amalia Spoken to her yesterday Patient also has been disease dermatitis with lymphedema Patient not able to attend dialysis despite case management's efforts to arrange transportation, we do feel that it is best of interest to use rehab/correction for now until he is more motivated to transport himself in and out of wheelchair Continue PT, OT, And continuing doxycycline for his cellulitis and topical antibiotics for wound care Full code Renal dialysis diet Attestations Medical Necessity Statement*: Awaiting placement Diagnoses CHF (congestive heart failure) I50.9 Afib I48.91 Bradycardia R00.1 Stasis dermatitis I87.2 Fluid overload E87.70 Acute renal failure with tubular necrosis N17.0 Acute renal failure type: with acute tubular necrosis Hemodialysis status Z99.2 Kidney dysfunction N28.9 ESRD (end stage renal disease) on dialysis N18.6; Z99.2 Cellulitis L03.90 Pressure sore on buttocks L89.309 Chronic respiratory failure with hypoxia J96.11 Inability to perform activities of daily living Z78.9 Lymphedema I89.0
[2023-06-06] MEDS: ammonium lactate lotion 226 gm Btl 1 APPLIC TOPICAL ×2 (10:46→17:44)
[2023-06-06] MEDS: bacitracin ointment 28 gm 1 APPLIC TOPICAL ×3 (10:46→21:29)
[2023-06-06] MEDS: nystatin powder 15 gm Btl 1 APPLIC TOPICAL ×2 (10:47→17:44)
--- NOTE | 2023-06-06 11:16 | P.CONIM_ITS ---
Providers/Reason For Consult 2 Consulting Physician/Specialty*: Amalia Zayas, DOUBLE END [employer]ENONER OPERATOR-BC/Wound Care Reason for Consult*: Wound evaluation and management Requesting Physician: Erick Rodriguez MD Attending Physician: Erick Rodriguez MD Primary Care Provider: Misty Ibrahim History of Present Illness History of Present Illness Geronimo Barahona is a 62 year old male who presents today with multiple wounds and non wound conditions. Medical history includes Atrial fibrillation, CHF, end stage renal disease on dialysis, and lymphedema. Recently hospitalized and readmitted on June 05, 2023 due to Mr. Barahona unable to perform activities of daily living with fluid volume overload. On exam Mr. Barahnoa is found to have previous amputation of the right foot great toe and second toe. Hemodialysis catheter present to right upper chest. Assessment today reveals bilateral lower extremities are edematous with dry cracked skin to the pretibial regions with erythema to the dorsal surface of the bilateral feet. The skin to the feet are taught and shiny. Mr. Barahona has multiple open wounds that inlcude bilateral stage 2 pressure ulcers to the glutes and posterior upper legs just distal to the gluteal folds. Mr. Barahona reports he has had these wounds for one week. He reports note doing any treatments at home although he reported his wraps his legs and unwraps them in 24 hours when she returns home. Mr. Barahona denies the wraps are two layer or lymphedema wraps, but states they are 'tubigrip. Wounds also include the bilateral posterior lower legs and the dorsal surface of the left foot. All wounds are superficial and limited to breakdown of skin. All wounds are moderately exudating and malodorous. The wound beds of the glutes and upper legs have good granulation to the wound beds. He also has non wound excoriation to the abdominal fold and groin and scrotal areas. I recommend cleansing all wounds daily with saline. Please see wound care orders for detailed recommendations of primary and secondary dressings. Mr. Barahona may shower with no wound dressings. May cleanse daily with soap and water due to Mr. Barahona's limited mobility. Most of Mr. Barahona's wounds are posterior. Offloading will be of the utmost importance for wound healing, turning frequently using back wedge and pillows for repositioning. Mr. Barahona would benefit greatly from lymphedema wraps to his bilateral lower extremities. He has refused this treatment at this time due to the discomfort he has previously experienced from leg wraps. I appreciate the opportunity to consult with Mr. Barahona. I recomend Mr. Barahona follow up with wound care at the time of discharge. Will follow while inpatient. Please feel free to call with any questions or concerns. Review of Systems 2 Narrative: Other ROS negative Medications/Allergies Home Medications Medication Instructions Recorded Confirmed Last Taken Type albuterol sulfate 2.5 mg/3 mL 2.5 mg inhalation Q4H PRN 10/03/22 06/05/23 Unknown History (0.083 %) solution for nebulization Shortness Of Breath amiodarone 200 mg tablet 200 mg PO QAM 10/03/22 06/05/23 Unknown History apixaban 5 mg tablet (Eliquis) 5 mg PO QPM 03/11/23 06/05/23 Unknown History silver sulfadiazine 1 % topical 1 applic topical DAILY 03/11/23 06/05/23 Unknown History cream (SSD) epinephrine 0.3 mg/0.3 mL 0.3 mg (0.3 mL) IM Q10M PRN 03/17/23 06/05/23 Unknown Rx injection, auto-injector anaphylaxis #2 ea calcium acetate 667 mg tablet 1,334 mg (2 x 667 mg) PO TIDWM #90 05/27/23 06/05/23 Unknown Rx (Calphron) tabs folic acid 1 mg tablet 1 mg PO BID #60 tabs 05/27/23 06/05/23 Unknown Rx gabapentin 100 mg capsule 100 mg PO BID #60 caps 05/27/23 06/05/23 Unknown Rx insulin aspart U-100 100 unit/mL See Rx Instructions .Route 05/27/23 06/05/23 Unknown Rx (3 mL) subcutaneous pen (Novolog .COMPLEX #15 mL FlexPen U-100 Insulin aspart) insulin detemir U-100 100 unit/mL 8 unit (0.08 mL) SUBCUT DAILY #15 05/27/23 06/05/23 Unknown Rx (3 mL) subcutaneous pen (Levemir mL FlexPen) amlodipine 10 mg tablet 10 mg PO QAM 06/05/23 06/05/23 Unknown History metoprolol tartrate 50 mg tablet 50 mg PO BID 06/05/23 06/05/23 Unknown History sennosides 8.6 mg-docusate sodium 1 tab PO DAILY PRN Constipation 06/05/23 06/05/23 Unknown History 50 mg tablet (Stool Softener-Laxative) Allergies Allergy/AdvReac Type Severity Reaction Status Date / Time amoxicillin [From Augmentin] Allergy Mild rash Verified 06/05/23 15:29 clavulanic acid Allergy Mild rash Verified 06/05/23 15:29 [From Augmentin] levofloxacin Allergy Mild rash Verified 06/05/23 15:29 Current Medications Generic Name Dose Route Start Last Admin Trade Name Freq PRN Reason Stop Dose Admin Hydrocodone Bitart/Acetaminophen 1 tab 06/05/23 00:13 06/06/23 08:25 Hydrocodone-Acetaminophen 5-325 Mg Tablet PO 1 tab Q6H PRN Administration MODERATE PAIN Amiodarone HCl 200 mg 06/05/23 09:00 06/06/23 09:49 Amiodarone 200 Mg Tablet PO 200 mg DAILY JAIDEN Administration Apixaban 5 mg 06/05/23 09:00 06/06/23 08:25 Apixaban 5 Mg Tablet PO 5 mg BID@0900,2100 JAIDEN Administration Bacitracin 1 applic 06/05/23 15:00 06/06/23 10:46 Bacitracin Ointment 28 Gm TOPICAL 1 applic TID [facility] Administration Protocol Doxycycline Monohydrate 100 mg 06/05/23 18:00 06/06/23 08:25 Doxycycline 100 Mg Tablet PO 100 mg BID JAIDEN Administration Protocol Gabapentin 100 mg 06/05/23 09:00 06/06/23 08:25 Gabapentin 100 Mg Capsule PO 100 mg BID JAIDEN Administration Albumin Human 12.5 gm in 50 mls @ 60 mls/hr 06/05/23 08:38 06/05/23 10:55 Albumin IV Infused PRN PRN Infusion Hypotension and/or symptomatic Insulin Human Lispro 0 unit 06/05/23 08:00 06/06/23 08:56 Insulin Lispro 100 Unit/1 Ml SUBCUT 4 unit WM&BEDTIME JAIDEN Administration Protocol Lactic Acid 1 applic 06/05/23 09:00 06/06/23 10:46 Ammonium Lactate Lotion 226 Gm Btl TOPICAL 1 applic BID JAIDEN Administration Metoprolol Tartrate 25 mg 06/05/23 09:00 06/06/23 09:49 Metoprolol Tartrate 25 Mg Tablet PO 25 mg BID@0900,2100 JAIDEN Administration Morphine Sulfate 2 mg 06/05/23 00:09 06/05/23 20:01 Morphine 4 Mg/Ml Sdv 1 Ml IVP 2 mg Q4H PRN Administration SEVERE PAIN Nystatin 1 applic 06/05/23 18:00 06/06/23 10:47 Nystatin Powder 15 Gm Btl TOPICAL 1 applic BID JAIDEN Administration Pantoprazole Sodium 40 mg 06/05/23 09:00 06/06/23 08:[address] 40 Mg Tablet PO 40 mg DAILY JAIDEN Administration Sucralfate 1 gm 06/05/23 07:00 06/06/23 06:20 Sucralfate 1 Gm Tablet PO 1 gm AC&BEDTIME JAIDEN Administration PFSH Acute 2 PFSH: Medical History (Updated 06/06/23 @ 12:02 by Amalia Zayas NP) Bilateral lower leg cellulitis Metabolic acidosis Hyponatremia Hyperkalemia DKA (diabetic ketoacidosis) Falls Generalized weakness FRANCISCO (acute kidney injury) CHF (congestive heart failure) DM2 (diabetes mellitus, type 2) Chronic respiratory failure with hypoxia COPD (chronic obstructive pulmonary disease) Social History Smoking and tobacco/nicotine status: former use of tobacco/nicotine Vitals/I&O/Wt Last Vital Signs Temp 98.6 F 06/06/23 08:32 Pulse 87 06/06/23 09:02 Resp 17 06/06/23 09:02 BP 108/56 06/06/23 08:32 Pulse Ox 94 06/06/23 09:02 O2 Del Method Nasal Cannula 06/06/23 09:02 O2 Flow Rate 2 06/06/23 09:02 06/05/23 06/06/23 06/06/23 22:59 06:59 14:59 Intake Total 480 / 1410 1000 / 2410 480 / 480 Output Total 75 / 2975 100 / 100 Balance 405 / -1565 1000 / -565 380 / 380 Weight last 48 hrs Weight 125.702 kg Weight 135.3 kg Weight 129.274 kg Weight 126.099 kg Weight 129.727 kg Physical Exam 2 Narrative: Anasarca Lower extremity venous stasis dermatitis with cellulitis Lymphedema with combination of venous stasis dermatitis Open Wounds to glutes bilaterally, posterior upper and lower legs bilaterally and left foot Excoriation to groin and scrotum as well as abdominal folds Currently on 2 L Hemodynamic stable Abdomen distended nontender Awake and alert GCS 15 Nonfocal neuroexam Skin: WOUNDS: Yes wounds noted (see problems: assessment and plan for details as well as wound care orders.) Data 06/06/23 04:29 06/06/23 04:29 A&P Assessment and plan (1) Wound of right lower extremity: Right posterior lower leg wound: 40c69m1.1cm , superficial open wound with moderate exudate, malodorous. Daily dressing changes: MaxOrb Extra Ag, ABD, wrap with Kerlix and secure with tape. Qualifiers: Encounter type: sequela Qualified Code(s): S81.801S - Unspecified open wound, right lower leg, sequela (2) Pressure ulcer of right buttock, stage 2: 5.8x1x0.1cm fairly superficial wound , limited to breakdown of skin Daily dressing changes: Hydrofera blue (3) Pressure ulcer of left buttock, stage 2: 4x1x0.1cm , fairly superficial wound, limited to breakdown of skin. Daily dressing changes: Hydrofera blue (4) Wound of left lower extremity: posterior lower leg wound: 74n83o4.1cm , superficial open wound with moderate exudate, malodorous. Daily dressing changes: MaxOrb Extra Ag, ABD, wrap with Kerlix and secure with tape. Qualifiers: Encounter type: sequela Qualified Code(s): S81.802S - Unspecified open wound, left lower leg, sequela (5) Excoriation of abdomen: Non wound condition, erythema to abdominal folds due to candidas Nystatin powder BID Qualifiers: Encounter type: sequela Qualified Code(s): S30.811S - Abrasion of abdominal wall, sequela (6) Excoriation of groin: Non wound condition, erythema to groin and scrotum due to candidas Nystatin powder BID to abdominal folds. Scrotum protected with daily barrier cream. PRN if soiled. Qualifiers: Encounter type: sequela Qualified Code(s): S30.811S - Abrasion of abdominal wall, sequela (7) Wound of left foot: Dorsal surface of the left foot open wound: 4.5x6x0.1cm Loose epidermis sloughed off, moderate exudate, malodorous, superficial wound limited to breakdown of skin. Daily dressing changes: Hydrofera blue (8) Pressure ulcer of right leg, stage 2: Posterior upper leg just distal of gluteal fold : 6x2x0.1cm fairly superficial wound, limited to breakdown of skin Daily dressing changes: Hydrofera blue (9) Pressure ulcer of left leg, stage 2: Posterior upper leg just distal of gluteal fold : 6x5x0.1cm fairly superficial wound, limited to breakdown of skin Daily dressing changes: Hydrofera blue Consult Attestations 2 Medical Necessity Statement: Per medicine team Time Spent in Patient Care: Greater than 35 minutes (>than 50% of time spent in counselling and/or direct pt care on unit) . and Moderate Time for a total of 85 minutes, includes reviewing past or interval history, examining/interviewing patient, placing orders, counseling patient/family/other support, updating patient/family/other support, discussing plan of care with staff, communicating with other healthcare providers, documenting encounter and coordinating care Other Coding Information Focused coding review requested Prolonged care (total time indicated above or notated here) Diagnoses Wound of right lower extremity, sequela S81.801S Encounter type: sequela Pressure ulcer of right buttock, stage 2 L89.312 Pressure ulcer of left buttock, stage 2 L89.322 Wound of left lower extremity, sequela S81.802S Encounter type: sequela Excoriation of abdomen, sequela S30.811S Encounter type: sequela Excoriation of groin, sequela S30.811S Encounter type: sequela Wound of left foot S91.302A Pressure ulcer of right leg, stage 2 L89.892 Pressure ulcer of left leg, stage 2 L89.892 Wound Orders Wound Number 1: Right posterior lower leg wound: 61y22d9.1cm , superficial open wound with moderate exudate, malodorous. Does Wound require Debridement?: No Duration: Other (while inpatient) Dressing change frequency: Daily and Other (PRN if soiled or saturated) Wound Cleansing: Saline Primary Wound Care Dressing: MaxOrb Extra Ag Secondary Wound Care Dressing: ABD, wrap with Kerlix and secure with tape Bathing/Showering/Hygiene: May shower without wound dressing Off-Loading: Low air-loss mattress, Turn and reposition every 2 hours and Other (back wedge and heel protectors) Wound Number 2: Right glute pressure ulcer stage 2: 5.8x1x0.1cm fairly superficial wound , limited to breakdown of skin Does Wound require Debridement?: No Duration: Other (while inpatient) Dressing change frequency: Daily and Other (PRN if soiled or saturated) Wound Cleansing: Saline Primary Wound Care Dressing: Hydrofera blue Secondary Wound Care Dressing: island dressing Bathing/Showering/Hygiene: May shower without wound dressing Off-Loading: Low air-loss mattress, Turn and reposition every 2 hours and Other (back wedge) Wound Number 3: Left glute pressure ulcer stage 2 4x1x0.1cm , fairly superficial wound, limited to breakdown of skin, malodorous Does Wound require Debridement?: No Duration: Other (while inpatient ) Dressing change frequency: Daily and Other (PRN if soiled or saturated ) Wound Cleansing: Saline Primary Wound Care Dressing: Hydrofera blue Secondary Wound Care Dressing: island dressing Bathing/Showering/Hygiene: May shower without wound dressing Off-Loading: Low air-loss mattress, Turn and reposition every 2 hours and Other (back wedge) Wound Number 4: posterior lower leg wound: 58u10a2.1cm , superficial open wound with moderate exudate , malodorous Does Wound require Debridement?: No Duration: Other (while inpatient ) Dressing change frequency: Daily Wound Cleansing: Saline Primary Wound Care Dressing: MaxOrb Extra Ag Secondary Wound Care Dressing: ABD, wrap with Kerlix and secure with tape Bathing/Showering/Hygiene: May shower without wound dressing Off-Loading: Low air-loss mattress, Turn and reposition every 2 hours and Other (back wedge ) Wound Number 5: Dorsal surface of the left foot open wound: 4.5x6x0.1cm Loose epidermis sloughed off, moderate exudate, malodorous, superficial wound limited to breakdown of skin. Does Wound require Debridement?: No Duration: Other (while inpatient) Dressing change frequency: Daily and Other (PRN if soiled or saturated. ) Wound Cleansing: Saline Primary Wound Care Dressing: Hydrofera blue Secondary Wound Care Dressing: ABD, kerlix and secure with tape Bathing/Showering/Hygiene: May shower without wound dressing Wound Number 6: pressure ulcer stage 2 Right Posterior upper leg just distal of gluteal fold : 6x2x0.1cm fairly superficial wound, limited to breakdown of skin Does Wound require Debridement?: No Duration: Other (while inpatient ) Dressing change frequency: Daily and Other (PRN if soiled or saturated ) Wound Cleansing: Saline Primary Wound Care Dressing: Hydrofera Blue Secondary Wound Care Dressing: island dressing Bathing/Showering/Hygiene: May shower without wound dressing Off-Loading: Low air-loss mattress and Turn and reposition every 2 hours Wound Number 7: pressure ulcer stage 2 Posterior upper left leg just distal of gluteal fold : 6x5x0.1cm fairly superficial wound, limited to breakdown of skin Does Wound require Debridement?: No Duration: Other (while inpatient) Dressing change frequency: Daily and Other (PRN if saturated or soiled ) Wound Cleansing: Saline Primary Wound Care Dressing: Hydrofera blue Secondary Wound Care Dressing: island dressing Bathing/Showering/Hygiene: May shower without wound dressing Off-Loading: Low air-loss mattress and Turn and reposition every 2 hours Non Wound Condition: Excoriation to abdominal fold, groin and scrotum r/t candidas Bilateral lower leg dryness: anteriorly Does Wound require Debridement?: No Duration: Other (while inpatient ) Dressing change frequency: Twice Daily Wound Cleansing: Saline Skin Barriers/Ramila-Wound Care: Vitamin A&D Ointment (bilateral lower leg dryness) Primary Wound Care Dressing: Nystatin powder 100,000 units per gram Bathing/Showering/Hygiene: May shower without wound dressing Off-Loading: Low air-loss mattress and Turn and reposition every 2 hours
[2023-06-06 11:28] LABS: Glucose Point of Care 233 mg/dL (70-110)
--- NOTE | 2023-06-06 14:49 | P.PN_ITS ---
Subjective 2 Subjective: denies any complaints Medications: Reviewed: Yes Vitals/I&O/Wt Last Vital Signs Temp 98.2 F 06/06/23 12:43 Pulse 69 06/06/23 12:43 Resp 17 06/06/23 12:43 BP 112/58 06/06/23 12:43 Pulse Ox 95 06/06/23 12:43 O2 Del Method Nasal Cannula 06/06/23 12:43 O2 Flow Rate 2 06/06/23 09:02 06/05/23 06/06/23 06/06/23 22:59 06:59 14:59 Intake Total 480 / 1410 1000 / 2410 720 / 720 Output Total 75 / 2975 100 / 100 Balance 405 / -1565 1000 / -565 620 / 620 Weight last 48 hrs Weight 125.702 kg Weight 135.3 kg Weight 129.274 kg Weight 126.099 kg Weight 129.727 kg Physical Exam 2 Narrative: awake,alert + EDEMA Data 06/06/23 04:29 06/06/23 04:29 A&P Assessment and plan (1) ESRD (end stage renal disease) on dialysis: Plan Pain 1. End-stage renal disease: Recently initiated on dialysis, 2. Anemia: Hemoglobin 10.8, monitor 3. Hypertension: Restarted home meds 4. Bilateral lower extremity lymphedema 5. History of CHF now now with pulmonary edema Plan: Hemodialysis tomorrow , ultrafiltration as tolerated Patient evaluated using audiovisual cart. Time spent 20 minutes. Attestations 2 Medical Necessity Statement*: per lois Coding Level of Care Code Acute Code for Chg Fwd Diagnoses ESRD (end stage renal disease) on dialysis N18.6; Z99.2
[2023-06-06 16:29] LABS: Glucose Point of Care 102 mg/dL (70-110)
[2023-06-06] MEDS: morphine 4 mg/mL SDV 1 mL 2 MG IVP (19:25)
[2023-06-06 21:14] LABS: Glucose Point of Care 216 mg/dL (70-110)
[2023-06-07] VITALS (14 sets, daily range): BP systolic 97–125; BP diastolic 51–70; PULSE 64–92; RESP 16–19; TEMP 35.5–37.2; O2SAT 92–98; BMI 41.5
[2023-06-07] MEDS: morphine 4 mg/mL SDV 1 mL 2 MG IVP ×3 (03:46→23:55)
[2023-06-07 05:33] LABS: Basophils % 0.4 %; Eosinophils # 0.4 10^3/uL (0.0-0.8); Eosinophils % 7.5 %; Hematocrit 28.1 % (37-53); Lymphocytes # 0.4 10^3/uL (0.8-4.8); Lymphocytes % 7.8 %; Mean Corpuscular HGB Conc 29.9 g/dL (30-55); Mean Corpuscular Hemoglobin 30.3 pg (27-33); Mean Corpuscular Volume 101.4 fl (82-101); Mean Platelet Volume 10.2 fL (7.4-10.4); Monocytes # 0.5 10^3/uL (0.2-0.9); Monocytes % 9.8 %; Neutrophils # 3.77 10^3/uL (1.8-7.7); Neutrophils % 73.9 %; Nucleated Red Blood Cells % 0 %; Platelet Count 184 10^3/cmm (157-399); Red Blood Count 2.77 10^6/uL (3.85-5.65); Red Cell Distribution Width 16.3 % (12.1-15.1)
[2023-06-07 05:38] LABS: Anion Gap 13.4 (5-19); Blood Urea Nitrogen 35 mg/dL (8-23); Calcium 8.2 mg/dL (8.5-10.5); Carbon Dioxide 26 mmol/L (22-29); Chloride 104 mmol/L (98-107); Glomerular Filtration Rate 21.5 mL/min (90-130); Glucose 203 mg/dL (65-115); Osmolality Calculated 304 mOsm/kg (285-295); Potassium 3.4 mmol/L (3.5-5.1); Sodium 140 mmol/L (136-145)
[2023-06-07] MEDS: sucralfate 1 gm Tablet PO ×4 (05:59→20:48)
[2023-06-07 07:22] LABS: Glucose Point of Care 200 mg/dL (70-110)
[2023-06-07] MEDS: heparin, porcine 1,000 unit/mL INJ 10 mL 10000 UNIT INTRACATH (08:19)
--- NOTE | 2023-06-07 11:06 | P.PN_ITS ---
Subjective 2 Subjective: No overnight events Currently in dialysis Hemoglobin stable Afebrile Awaiting placement Vitals/I&O/Wt Last Vital Signs Temp 98.4 F 06/07/23 08:36 Pulse 85 06/07/23 08:36 Resp 16 06/07/23 08:36 BP 97/51 06/07/23 08:36 Pulse Ox 94 06/07/23 08:00 O2 Del Method Nasal Cannula 06/07/23 08:00 O2 Flow Rate 2 06/06/23 09:02 06/06/23 06/07/23 06/07/23 22:59 06:59 14:59 Intake Total 240 / 960 120 / 1080 Output Total 100 / 200 Balance 140 / 760 120 / 880 Weight last 48 hrs Weight 138.799 kg Weight 125.702 kg Weight 135.3 kg Physical Exam 2 Narrative: Signs of fluid load improving Venous stasis dermatitis Diabetic foot ulcer with cellulitis Awake and alert GCS 15 Getting dialyzed S1, S2 Currently on 2 L Data 06/07/23 04:33 06/07/23 04:33 A&P Assessment and plan (1) Lymphedema: (2) Inability to perform activities of daily living: (3) Anasarca: (4) Chronic respiratory failure with hypoxia: (5) Wound of left lower extremity: Qualifiers: Encounter type: sequela Qualified Code(s): S81.802S - Unspecified open wound, left lower leg, sequela (6) Pressure ulcer of right buttock, stage 2: (7) Pressure ulcer of left leg, stage 2: (8) Cellulitis: (9) Fluid overload: (10) ESRD (end stage renal disease) on dialysis: (11) Afib: (12) Bradycardia: Plan Awaiting placement Continue dialysis Continue topical and oral antibiotics No active fever Blood pressure slightly low after dialysis Bradycardia has improved A-fib without RVR Continue anticoagulating agent Full code Renal dialysis diet Appreciate wound care orders Attestations 2 Medical Necessity Statement*: Awaiting placement Diagnoses Lymphedema I89.0 Inability to perform activities of daily living Z78.9 Anasarca R60.1 Chronic respiratory failure with hypoxia J96.11 Wound of left lower extremity, sequela S81.802S Encounter type: sequela Pressure ulcer of right buttock, stage 2 L89.312 Pressure ulcer of left leg, stage 2 L89.892 Cellulitis L03.90 Fluid overload E87.70 ESRD (end stage renal disease) on dialysis N18.6; Z99.2 Afib I48.91 Bradycardia R00.1
--- NOTE | 2023-06-07 11:09 | P.PN_ITS ---
Subjective 2 Subjective: getting HD Medications: Reviewed: Yes Vitals/I&O/Wt Last Vital Signs Temp 98.4 F 06/07/23 08:36 Pulse 85 06/07/23 08:36 Resp 16 06/07/23 08:36 BP 97/51 06/07/23 08:36 Pulse Ox 94 06/07/23 08:00 O2 Del Method Nasal Cannula 06/07/23 08:00 O2 Flow Rate 2 06/06/23 09:02 06/06/23 06/07/23 06/07/23 22:59 06:59 14:59 Intake Total 240 / 960 120 / 1080 Output Total 100 / 200 Balance 140 / 760 120 / 880 Weight last 48 hrs Weight 138.799 kg Weight 125.702 kg Weight 135.3 kg Physical Exam 2 Narrative: awake,alert + EDEMA Data 06/08/23 04:14 06/08/23 04:14 A&P Assessment and plan (1) ESRD (end stage renal disease) on dialysis: Plan Pain 1. End-stage renal disease: Recently initiated on dialysis, 2. Anemia: Hemoglobin 10.8, monitor 3. Hypertension: Restarted home meds 4. Bilateral lower extremity lymphedema 5. History of CHF now now with pulmonary edema Plan: Hemodialysis today , ultrafiltration as tolerated Patient evaluated using audiovisual cart. Time spent 20 minutes. Attestations 2 Medical Necessity Statement*: per medicine Coding Level of Care Code Acute Code for Chg Fwd Diagnoses ESRD (end stage renal disease) on dialysis N18.6; Z99.2
[2023-06-07] MEDS: epoetin alfa 1000 Unit/0.05 mL (ESRD) 20000 UNIT IVP (11:22)
[2023-06-07] MEDS: heparin, porcine 1,000 unit/mL INJ 10 mL 1000 UNIT IV (11:25)
[2023-06-07] MEDS: doxycycline 100 mg Tablet PO ×2 (12:05→18:03)
[2023-06-07] MEDS: apixaban 5 mg Tablet PO ×2 (12:05→20:47)
[2023-06-07] MEDS: HYDROcodone-acetaminophen 5-325 mg Tablet 1 TAB PO ×2 (12:05→20:47)
[2023-06-07] MEDS: albumin 12.5 GM/50 ML VIAL IV (12:34)
[2023-06-07 13:26] LABS: Glucose Point of Care 164 mg/dL (70-110)
[2023-06-07] MEDS: bacitracin ointment 28 gm 1 APPLIC TOPICAL ×3 (13:31→20:48)
[2023-06-07] MEDS: ammonium lactate lotion 226 gm Btl 1 APPLIC TOPICAL ×2 (13:32→18:03)
[2023-06-07] MEDS: insulin lispro 100 unit/1 mL SUBCUT (13:32)
[2023-06-07] MEDS: nystatin powder 15 gm Btl 1 APPLIC TOPICAL ×2 (13:32→18:04)
--- NOTE | 2023-06-07 16:37 | PC.NURSE ---
Patient's called and said that patient has adult expansion medicaid and that it will pay for physical therapy so she wants him to go to a rehab in [place].
[2023-06-07 17:05] LABS: Glucose Point of Care 140 mg/dL (70-110)
[2023-06-07] MEDS: gabapentin 100 mg Capsule PO (18:03)
[2023-06-07 20:09] LABS: Glucose Point of Care 122 mg/dL (70-110)
[2023-06-07] MEDS: metoprolol tartrate 25 mg Tablet PO (20:47)
[2023-06-08] VITALS (11 sets, daily range): BP systolic 105–131; BP diastolic 55–65; PULSE 69–76; RESP 16–20; TEMP 36.6–37; O2SAT 93–98; BMI 37.4
[2023-06-08 04:46] LABS: Basophils % 0.6 %; Eosinophils # 0.4 10^3/uL (0.0-0.8); Eosinophils % 8.5 %; Lymphocytes # 0.5 10^3/uL (0.8-4.8); Lymphocytes % 9.3 %; Mean Corpuscular Hemoglobin 30.6 pg (27-33); Mean Corpuscular Volume 98.7 fl (82-101); Mean Platelet Volume 9.3 fL (7.4-10.4); Monocytes # 0.5 10^3/uL (0.2-0.9); Monocytes % 10.1 %; Neutrophils # 3.51 10^3/uL (1.8-7.7); Neutrophils % 71.1 %; Nucleated Red Blood Cells % 0 %; Platelet Count 203 10^3/cmm (157-399); Red Blood Count 3.04 10^6/uL (3.85-5.65); White Blood Count 4.94 10^3/uL (3.29-11.43)
[2023-06-08 05:10] LABS: Anion Gap 10.3 (5-19); Blood Urea Nitrogen 18 mg/dL (8-23); Calcium 8.5 mg/dL (8.5-10.5); Carbon Dioxide 28 mmol/L (22-29); Chloride 102 mmol/L (98-107); Glomerular Filtration Rate 34.3 mL/min (90-130); Glucose 133 mg/dL (65-115); Osmolality Calculated 288 mOsm/kg (285-295); Potassium 3.3 mmol/L (3.5-5.1); Sodium 137 mmol/L (136-145)
[2023-06-08] MEDS: sucralfate 1 gm Tablet PO ×4 (06:25→21:26)
[2023-06-08 07:19] LABS: Glucose Point of Care 143 mg/dL (70-110)
[2023-06-08] MEDS: insulin lispro 100 unit/1 mL SUBCUT (07:45)
[2023-06-08] MEDS: amiodarone 200 mg Tablet PO (08:30)
[2023-06-08] MEDS: doxycycline 100 mg Tablet PO ×2 (08:30→17:26)
[2023-06-08] MEDS: apixaban 5 mg Tablet PO ×2 (08:30→21:26)
[2023-06-08] MEDS: gabapentin 100 mg Capsule PO ×2 (08:31→17:26)
[2023-06-08] MEDS: pantoprazole DR 40 mg Tablet PO (08:31)
[2023-06-08] MEDS: metoprolol tartrate 25 mg Tablet PO ×2 (08:31→21:26)
[2023-06-08] MEDS: HYDROcodone-acetaminophen 5-325 mg Tablet 1 TAB PO ×2 (08:32→16:00)
[2023-06-08] MEDS: nystatin powder 15 gm Btl 1 APPLIC TOPICAL ×2 (09:48→17:27)
[2023-06-08] MEDS: bacitracin ointment 28 gm 1 APPLIC TOPICAL ×3 (09:48→21:26)
--- NOTE | 2023-06-08 11:04 | P.PN_ITS ---
Subjective 2 Subjective: Awaiting placement Vitals/I&O/Wt Last Vital Signs Temp 98.1 F 06/08/23 07:37 Pulse 73 06/08/23 09:24 Resp 16 06/08/23 09:24 BP 118/55 06/08/23 07:37 Pulse Ox 98 06/08/23 09:24 O2 Del Method Nasal Cannula 06/08/23 09:24 O2 Flow Rate 2 06/08/23 09:24 06/07/23 06/08/23 06/08/23 22:59 06:59 14:59 Intake Total 240 / 690 480 / 480 Output Total 400 / 3050 200 / 3250 Balance -400 / -2600 40 / -2560 480 / 480 Weight last 48 hrs Weight 125.237 kg Weight 125 kg Weight 138.799 kg Physical Exam 2 Narrative: GCS 15 Awake alert A-fib without RVR Pleasant cooperative Currently on room air Dry skin Venous stasis dermatitis Lymphedema Both feet wrapped with dressing Data 06/08/23 04:14 06/08/23 04:14 A&P Assessment and plan (1) CHF (congestive heart failure): (2) Afib: (3) Bradycardia: (4) Stasis dermatitis: (5) Fluid overload: (6) Acute kidney failure: Qualifiers: Acute renal failure type: with acute tubular necrosis Qualified Code(s): N17.0 - Acute kidney failure with tubular necrosis (7) Chronic respiratory failure with hypoxia: (8) Lymphedema: (9) Inability to perform activities of daily living: (10) ESRD (end stage renal disease) on dialysis: (11) Pressure ulcer of right buttock, stage 2: (12) Wound of left lower extremity: Qualifiers: Encounter type: sequela Qualified Code(s): S81.802S - Unspecified open wound, left lower leg, sequela Plan Awaiting placement Continue with dialysis session A-fib without RVR Continue wound care dressings Full code Attestations 2 Medical Necessity Statement*: placement Diagnoses CHF (congestive heart failure) I50.9 Afib I48.91 Bradycardia R00.1 Stasis dermatitis I87.2 Fluid overload E87.70 Acute renal failure with tubular necrosis N17.0 Acute renal failure type: with acute tubular necrosis Chronic respiratory failure with hypoxia J96.11 Lymphedema I89.0 Inability to perform activities of daily living Z78.9 ESRD (end stage renal disease) on dialysis N18.6; Z99.2 Pressure ulcer of right buttock, stage 2 L89.312 Wound of left lower extremity, sequela S81.802S Encounter type: sequela
[2023-06-08 11:15] LABS: Glucose Point of Care 99 mg/dL (70-110)
[2023-06-08] MEDS: morphine 4 mg/mL SDV 1 mL 2 MG IVP ×2 (11:44→20:38)
[2023-06-08 13:13] LABS: Anion Gap 14.3 (5-19); Blood Urea Nitrogen 19 mg/dL (8-23); Calcium 8.8 mg/dL (8.5-10.5); Carbon Dioxide 26 mmol/L (22-29); Chloride 100 mmol/L (98-107); Glomerular Filtration Rate 32.4 mL/min (90-130); Glucose 140 mg/dL (65-115); Osmolality Calculated 289 mOsm/kg (285-295); Potassium 3.3 mmol/L (3.5-5.1); Sodium 137 mmol/L (136-145)
--- NOTE | 2023-06-08 14:00 | P.PN_ITS ---
Subjective 2 Subjective: no new c/o Medications: Reviewed: Yes Vitals/I&O/Wt Last Vital Signs Temp 97.8 F 06/08/23 11:52 Pulse 69 06/08/23 11:52 Resp 18 06/08/23 11:52 BP 110/61 06/08/23 11:52 Pulse Ox 93 06/08/23 11:52 O2 Del Method Nasal Cannula 06/08/23 11:52 O2 Flow Rate 2 06/08/23 09:24 06/07/23 06/08/23 06/08/23 22:59 06:59 14:59 Intake Total 240 / 690 960 / 960 Output Total 400 / 3050 200 / 3250 Balance -400 / -2600 40 / -2560 960 / 960 Weight last 48 hrs Weight 125.237 kg Weight 125 kg Weight 138.799 kg Physical Exam 2 Narrative: awake,alert + EDEMA Data 06/08/23 04:14 06/08/23 12:28 A&P Assessment and plan (1) ESRD (end stage renal disease) on dialysis: Plan Pain 1. End-stage renal disease: Recently initiated on dialysis, 2. Anemia: Hemoglobin 10.8, monitor 3. Hypertension: Restarted home meds 4. Bilateral lower extremity lymphedema 5. History of CHF now now with pulmonary edema Plan: Hemodialysis friday , ultrafiltration as tolerated Patient evaluated using audiovisual cart. Time spent 20 minutes. Attestations 2 Medical Necessity Statement*: per lois Coding Level of Care Code Acute Code for Chg Fwd Diagnoses ESRD (end stage renal disease) on dialysis N18.6; Z99.2
[2023-06-08 16:25] LABS: Glucose Point of Care 130 mg/dL (70-110)
[2023-06-08] MEDS: ammonium lactate lotion 226 gm Btl 1 APPLIC TOPICAL (17:27)
[2023-06-08 21:36] LABS: Glucose Point of Care 130 mg/dL (70-110)
[2023-06-09] VITALS (11 sets, daily range): BP systolic 113–149; BP diastolic 58–67; PULSE 64–80; RESP 16–18; TEMP 36.7–36.9; O2SAT 92–98; BMI 37.2
[2023-06-09] MEDS: sucralfate 1 gm Tablet PO ×4 (06:10→21:29)
[2023-06-09 06:47] LABS: Glucose Point of Care 133 mg/dL (70-110)
[2023-06-09] MEDS: amiodarone 200 mg Tablet PO (09:57)
[2023-06-09] MEDS: apixaban 5 mg Tablet PO ×2 (09:57→21:29)
[2023-06-09] MEDS: gabapentin 100 mg Capsule PO ×2 (09:58→17:53)
[2023-06-09] MEDS: doxycycline 100 mg Tablet PO ×2 (09:58→17:53)
[2023-06-09] MEDS: bacitracin ointment 28 gm 1 APPLIC TOPICAL ×3 (09:58→21:31)
[2023-06-09] MEDS: metoprolol tartrate 25 mg Tablet PO ×2 (09:58→21:29)
[2023-06-09] MEDS: nystatin powder 15 gm Btl 1 APPLIC TOPICAL ×2 (09:59→17:54)
[2023-06-09] MEDS: ammonium lactate lotion 226 gm Btl 1 APPLIC TOPICAL ×2 (09:59→17:53)
--- NOTE | 2023-06-09 10:14 | P.PN_ITS ---
Subjective 2 Subjective: no new c/o Medications: Reviewed: Yes Vitals/I&O/Wt Last Vital Signs Temp 98.2 F 06/09/23 07:27 Pulse 75 06/09/23 10:00 Resp 16 06/09/23 10:00 BP 129/67 06/09/23 07:27 Pulse Ox 98 06/09/23 10:00 O2 Del Method Room Air 06/09/23 10:00 O2 Flow Rate 2 06/08/23 20:00 06/08/23 06/09/23 06/09/23 22:59 06:59 14:59 Intake Total 480 / 1440 240 / 240 Output Total 200 / 200 Balance 280 / 1240 240 / 240 Weight last 48 hrs Weight 124.556 kg Weight 125.237 kg Weight 125 kg Physical Exam 2 Narrative: awake,alert + EDEMA Data 06/08/23 04:14 06/08/23 12:28 A&P Assessment and plan (1) ESRD (end stage renal disease) on dialysis: Plan Pain 1. End-stage renal disease: Recently initiated on dialysis, 2. Anemia: Hemoglobin 10.8, monitor 3. Hypertension: Restarted home meds 4. Bilateral lower extremity lymphedema 5. History of CHF now now with pulmonary edema Plan: Hemodialysis tomorrow , ultrafiltration as tolerated Patient evaluated using audiovisual cart. Time spent 20 minutes. Attestations 2 Medical Necessity Statement*: per medicine Coding Level of Care Code Acute Code for Chg Fwd Diagnoses ESRD (end stage renal disease) on dialysis N18.6; Z99.2
--- NOTE | 2023-06-09 10:16 | P.PN_ITS ---
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 Vitals/I&O/Wt Last Vital Signs Temp 98.2 F 06/09/23 07:27 Pulse 75 06/09/23 10:00 Resp 16 06/09/23 10:00 BP 129/67 06/09/23 07:27 Pulse Ox 98 06/09/23 10:00 O2 Del Method Room Air 06/09/23 10:00 O2 Flow Rate 2 06/08/23 20:00 06/08/23 06/09/23 06/09/23 22:59 06:59 14:59 Intake Total 480 / 1440 240 / 240 Output Total 200 / 200 Balance 280 / 1240 240 / 240 Weight last 48 hrs Weight 124.556 kg Weight 125.237 kg Weight 125 kg Physical Exam 2 Narrative: Signs of fluid load improving Lower extremity venous stasis dermatitis Currently feet are covered with dressing GCS 15 Currently on 2 L Awake and alert Pleasant and cooperative No audible stridor or wheezing No active chest pain Data 06/08/23 04:14 06/08/23 12:28 A&P Assessment and plan (1) CHF (congestive heart failure): (2) Afib: (3) Stasis dermatitis: (4) Fluid overload: (5) ESRD (end stage renal disease) on dialysis: (6) Cellulitis: (7) Pressure sore on buttocks: (8) Wound of left foot: (9) Pressure ulcer of left buttock, stage 2: (10) Wound of left lower extremity: Qualifiers: Encounter type: sequela Qualified Code(s): S81.802S - Unspecified open wound, left lower leg, sequela (11) Chronic respiratory failure with hypoxia: (12) Anasarca: (13) Inability to perform activities of daily living: (14) Lymphedema: Plan Awaiting placement Continue dialysis session I am no plan to change any of his medications today Potassium will be repleted Spoke with his who is requesting group home at [facility] installation 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
[2023-06-09] MEDS: potassium chloride ER 20 mEq Tablet 40 MEQ PO (10:30)
[2023-06-09 11:58] LABS: Glucose Point of Care 178 mg/dL (70-110)
[2023-06-09] MEDS: insulin lispro 100 unit/1 mL SUBCUT ×2 (12:29→21:29)
[2023-06-09] MEDS: HYDROcodone-acetaminophen 5-325 mg Tablet 1 TAB PO ×2 (15:39→22:39)
[2023-06-09 17:31] LABS: Glucose Point of Care 131 mg/dL (70-110)
[2023-06-09 21:21] LABS: Glucose Point of Care 152 mg/dL (70-110)
[2023-06-10] VITALS (8 sets, daily range): BP systolic 97–114; BP diastolic 51–61; PULSE 65–71; RESP 16–18; TEMP 36.4–36.8; O2SAT 93–97
[2023-06-10 06:32] LABS: Glucose Point of Care 188 mg/dL (70-110)
[2023-06-10] MEDS: HYDROcodone-acetaminophen 5-325 mg Tablet 1 TAB PO ×3 (06:35→20:38)
[2023-06-10] MEDS: sucralfate 1 gm Tablet PO ×4 (06:35→20:38)
[2023-06-10] MEDS: insulin lispro 100 unit/1 mL SUBCUT ×2 (08:40→17:39)
--- NOTE | 2023-06-10 08:55 | P.PN_ITS ---
Subjective 2 Subjective: GETTING hd Medications: Reviewed: Yes Vitals/I&O/Wt Last Vital Signs Temp 97.6 F 06/10/23 04:00 Pulse 68 06/10/23 06:00 Resp 17 06/10/23 04:00 BP 114/53 06/10/23 04:00 Pulse Ox 97 06/10/23 04:00 O2 Del Method Room Air 06/09/23 16:00 O2 Flow Rate 2 06/09/23 20:00 06/09/23 06/10/23 06/10/23 22:59 06:59 14:59 Intake Total 480 / 960 360 / 360 Output Total 150 / 150 250 / 400 Balance 330 / 810 -250 / 560 360 / 360 Weight last 48 hrs Weight 123.967 kg Weight 124.556 kg Physical Exam 2 Narrative: awake,alert + EDEMA Data 06/08/23 04:14 06/08/23 12:28 A&P Assessment and plan (1) ESRD (end stage renal disease) on dialysis: Plan Pain 1. End-stage renal disease: Recently initiated on dialysis, 2. Anemia: Hemoglobin 10.8, monitor 3. Hypertension: Restarted home meds 4. Bilateral lower extremity lymphedema 5. History of CHF now now with pulmonary edema Plan: Hemodialysis today , ultrafiltration as tolerated Patient evaluated using audiovisual cart. Time spent 20 minutes. Attestations 2 Medical Necessity Statement*: per lois Coding Level of Care Code Acute Code for Chg Fwd Diagnoses ESRD (end stage renal disease) on dialysis N18.6; Z99.2
--- NOTE | 2023-06-10 09:05 | PC.NURSE ---
This nurse accidentally undone pantoprazole from 06/09/2023 instead of 06/10/2023. Patient did have his pantoprazole on 06/09/2023 by this nurse.
--- NOTE | 2023-06-10 11:23 | P.PN_ITS ---
Subjective 2 Subjective: Patient doing well Awaiting placement Currently on room air Getting dialyzed Vitals/I&O/Wt Last Vital Signs Temp 97.6 F 06/10/23 04:00 Pulse 68 06/10/23 08:00 Resp 17 06/10/23 04:00 BP 114/53 06/10/23 04:00 Pulse Ox 97 06/10/23 04:00 O2 Del Method Room Air 06/09/23 16:00 O2 Flow Rate 2 06/09/23 20:00 06/09/23 06/10/23 06/10/23 22:59 06:59 14:59 Intake Total 480 / 960 360 / 360 Output Total 150 / 150 250 / 400 Balance 330 / 810 -250 / 560 360 / 360 Weight last 48 hrs Weight 123.967 kg Weight 124.556 kg Physical Exam 2 Narrative: Getting dialyzed Currently on room air Euvolemic Lymphedema wraps on his legs Feeling much better In good spirits S1, S2 No signs of RVR Pleasant and cooperative Data 06/08/23 04:14 06/08/23 12:28 A&P Assessment and plan (1) CHF (congestive heart failure): (2) Afib: (3) Stasis dermatitis: (4) Fluid overload: (5) ESRD (end stage renal disease) on dialysis: (6) Pressure sore on buttocks: (7) Pressure ulcer of left buttock, stage 2: (8) Pressure ulcer of right leg, stage 2: (9) Pressure ulcer of left leg, stage 2: (10) Chronic respiratory failure with hypoxia: (11) Anasarca: (12) Lymphedema: (13) Inability to perform activities of daily living: Plan Awaiting placement to select for rehab Inpatient rehab Continue topical and p.o. antibiotics Lymphedema wraps Continue amiodarone No change in medications today Continue Sandee Attestations 2 Medical Necessity Statement*: Awaiting placement Diagnoses CHF (congestive heart failure) I50.9 Afib I48.91 Stasis dermatitis I87.2 Fluid overload E87.70 ESRD (end stage renal disease) on dialysis N18.6; Z99.2 Pressure sore on buttocks L89.309 Pressure ulcer of left buttock, stage 2 L89.322 Pressure ulcer of right leg, stage 2 L89.892 Pressure ulcer of left leg, stage 2 L89.892 Chronic respiratory failure with hypoxia J96.11 Anasarca R60.1 Lymphedema I89.0 Inability to perform activities of daily living Z78.9
[2023-06-10] MEDS: gabapentin 100 mg Capsule PO ×2 (12:11→17:39)
[2023-06-10] MEDS: doxycycline 100 mg Tablet PO ×2 (12:11→17:38)
[2023-06-10] MEDS: amiodarone 200 mg Tablet PO (12:11)
[2023-06-10] MEDS: pantoprazole DR 40 mg Tablet PO (12:11)
[2023-06-10] MEDS: ammonium lactate lotion 226 gm Btl 1 APPLIC TOPICAL ×2 (12:14→17:38)
[2023-06-10] MEDS: bacitracin ointment 28 gm 1 APPLIC TOPICAL ×3 (12:15→20:39)
[2023-06-10] MEDS: nystatin powder 15 gm Btl 1 APPLIC TOPICAL ×2 (12:16→17:40)
[2023-06-10] MEDS: metoprolol tartrate 25 mg Tablet PO ×2 (12:21→20:38)
[2023-06-10] MEDS: apixaban 5 mg Tablet PO ×2 (12:22→20:38)
[2023-06-10 16:56] LABS: Glucose Point of Care 155 mg/dL (70-110)
[2023-06-10 20:16] LABS: Glucose Point of Care 127 mg/dL (70-110)
[2023-06-11] VITALS (9 sets, daily range): BP systolic 106–123; BP diastolic 52–70; PULSE 63–75; RESP 16–18; TEMP 36.5–37.1; O2SAT 92–99; BMI 36.4
[2023-06-11 06:39] LABS: Glucose Point of Care 143 mg/dL (70-110)
[2023-06-11] MEDS: sucralfate 1 gm Tablet PO ×4 (06:58→21:55)
[2023-06-11] MEDS: HYDROcodone-acetaminophen 5-325 mg Tablet 1 TAB PO ×3 (08:35→21:55)
[2023-06-11] MEDS: amiodarone 200 mg Tablet PO (08:35)
[2023-06-11] MEDS: gabapentin 100 mg Capsule PO ×2 (08:35→18:03)
[2023-06-11] MEDS: pantoprazole DR 40 mg Tablet PO (08:35)
[2023-06-11] MEDS: doxycycline 100 mg Tablet PO ×2 (08:35→18:03)
[2023-06-11] MEDS: bacitracin ointment 28 gm 1 APPLIC TOPICAL ×3 (08:36→21:54)
[2023-06-11] MEDS: ammonium lactate lotion 226 gm Btl 1 APPLIC TOPICAL ×2 (08:36→18:03)
[2023-06-11] MEDS: nystatin powder 15 gm Btl 1 APPLIC TOPICAL ×2 (08:36→18:05)
[2023-06-11] MEDS: insulin lispro 100 unit/1 mL SUBCUT ×4 (08:37→22:09)
[2023-06-11] MEDS: metoprolol tartrate 25 mg Tablet PO ×2 (08:40→21:54)
[2023-06-11] MEDS: apixaban 5 mg Tablet PO ×2 (08:40→21:55)
--- NOTE | 2023-06-11 10:39 | P.PN_ITS ---
Subjective 2 Subjective: doing well Medications: Reviewed: Yes Vitals/I&O/Wt Last Vital Signs Temp 97.7 F 06/11/23 07:34 Pulse 72 06/11/23 09:47 Resp 18 06/11/23 09:47 BP 123/65 06/11/23 07:34 Pulse Ox 97 06/11/23 09:47 O2 Del Method Nasal Cannula 06/11/23 09:47 O2 Flow Rate 3 06/11/23 09:47 06/10/23 06/11/23 06/11/23 22:59 06:59 14:59 Intake Total 360 / 960 480 / 480 Output Total Balance 360 / 960 -25 / 935 480 / 480 Weight last 48 hrs Weight 122.016 kg Weight 123.967 kg Physical Exam 2 Narrative: awake,alert + EDEMA Data 06/08/23 04:14 06/08/23 12:28 A&P Assessment and plan (1) ESRD (end stage renal disease) on dialysis: Plan Pain 1. End-stage renal disease: Recently initiated on dialysis, 2. Anemia: Hemoglobin 10.8, monitor 3. Hypertension: Restarted home meds 4. Bilateral lower extremity lymphedema 5. History of CHF now now with pulmonary edema Plan: Hemodialysis tomorrow , ultrafiltration as tolerated Patient evaluated using audiovisual cart. Time spent 20 minutes. Attestations 2 Medical Necessity Statement*: per medicine Coding Level of Care Code Acute Code for Chg Fwd Diagnoses ESRD (end stage renal disease) on dialysis N18.6; Z99.2
--- NOTE | 2023-06-11 10:40 | P.PN_ITS ---
Subjective 2 Subjective: Awaiting placement Patient lymphedema wraps No overnight events No active complaints Vitals/I&O/Wt Last Vital Signs Temp 97.7 F 06/11/23 07:34 Pulse 72 06/11/23 09:47 Resp 18 06/11/23 09:47 BP 123/65 06/11/23 07:34 Pulse Ox 97 06/11/23 09:47 O2 Del Method Nasal Cannula 06/11/23 09:47 O2 Flow Rate 3 06/11/23 09:47 06/10/23 06/11/23 06/11/23 22:59 06:59 14:59 Intake Total 360 / 960 480 / 480 Output Total Balance 360 / 960 - / 5 480 / 480 Weight last 48 hrs Weight 122.016 kg Weight 123.967 kg Physical Exam 2 Narrative: Hypovolemic state improving Currently on room air GCS 15 Lymphedema wraps Currently no active complaints No shortness of breath or chest pain Abdomen soft Data 06/08/23 04:14 06/08/23 12:28 A&P Assessment and plan (1) Afib: (2) Stasis dermatitis: (3) Fluid overload: (4) ESRD (end stage renal disease) on dialysis: (5) Wound of left lower extremity: Qualifiers: Encounter type: sequela Qualified Code(s): S81.802S - Unspecified open wound, left lower leg, sequela (6) Pressure ulcer of left leg, stage 2: (7) Pressure ulcer of right leg, stage 2: (8) Pressure ulcer of left buttock, stage 2: (9) Pressure ulcer of right buttock, stage 2: (10) Wound of left foot: (11) Chronic respiratory failure with hypoxia: (12) Inability to perform activities of daily living: (13) Anasarca: (14) Lymphedema: Plan Continue wound care dressing and compression lymphedema wraps Patient is awaiting placement Continue anticoagulating agent and AV ramiro blocking agents Continue with dialysis regimen Spoke with significant other who is agreeable for inpatient rehab Awaiting response from select facility Attestations 2 Medical Necessity Statement*: Continue medical management Diagnoses Afib I48.91 Stasis dermatitis I87.2 Fluid overload E87.70 ESRD (end stage renal disease) on dialysis N18.6; Z99.2 Wound of left lower extremity, sequela S81.802S Encounter type: sequela Pressure ulcer of left leg, stage 2 L89.892 Pressure ulcer of right leg, stage 2 L89.892 Pressure ulcer of left buttock, stage 2 L89.322 Pressure ulcer of right buttock, stage 2 L89.312 Wound of left foot S91.302A Chronic respiratory failure with hypoxia J96.11 Inability to perform activities of daily living Z78.9 Anasarca R60.1 Lymphedema I89.0
[2023-06-11 11:58] LABS: Glucose Point of Care 141 mg/dL (70-110)
[2023-06-11 16:58] LABS: Glucose Point of Care 158 mg/dL (70-110)
[2023-06-11 22:04] LABS: Glucose Point of Care 196 mg/dL (70-110)
[2023-06-12] VITALS: BP 111/61; PULSE 69; RESP 17; TEMP 36.9; O2SAT 98
[2023-06-12 03:55] VITALS: BP 117/63; PULSE 64; RESP 17; TEMP 36.7; O2SAT 98
[2023-06-12 06:00] VITALS: BMI 36.6
[2023-06-12] MEDS: sucralfate 1 gm Tablet PO ×4 (06:11→21:01)
[2023-06-12 06:58] LABS: Glucose Point of Care 209 mg/dL (70-110)
[2023-06-12 08:00] VITALS: BP 126/66; PULSE 71; RESP 18; TEMP 36.7; O2SAT 100
[2023-06-12] MEDS: pantoprazole DR 40 mg Tablet PO (08:07)
[2023-06-12] MEDS: HYDROcodone-acetaminophen 5-325 mg Tablet 1 TAB PO ×3 (08:07→21:02)
[2023-06-12] MEDS: metoprolol tartrate 25 mg Tablet PO ×2 (08:08→21:01)
[2023-06-12] MEDS: bacitracin ointment 28 gm 1 APPLIC TOPICAL ×3 (08:08→21:02)
[2023-06-12] MEDS: apixaban 5 mg Tablet PO ×2 (08:08→21:01)
[2023-06-12] MEDS: doxycycline 100 mg Tablet PO ×2 (08:08→17:42)
[2023-06-12] MEDS: gabapentin 100 mg Capsule PO ×2 (08:08→17:42)
[2023-06-12] MEDS: insulin lispro 100 unit/1 mL SUBCUT ×3 (08:10→21:01)
[2023-06-12] MEDS: nystatin powder 15 gm Btl 1 APPLIC TOPICAL ×2 (08:11→17:45)
[2023-06-12] MEDS: amiodarone 200 mg Tablet PO (08:23)
[2023-06-12] MEDS: albumin 12.5 GM/50 ML VIAL IV ×2 (09:48→09:49)
[2023-06-12] MEDS: heparin, porcine 1,000 unit/mL INJ 10 mL 10000 UNIT INTRACATH (09:48)
--- NOTE | 2023-06-12 09:49 | P.PN_ITS ---
Subjective 2 Subjective: plan for HD today Medications: Reviewed: Yes Vitals/I&O/Wt Last Vital Signs Temp 98.0 F 06/12/23 08:00 Pulse 71 06/12/23 08:00 Resp 18 06/12/23 08:00 BP 126/66 06/12/23 08:00 Pulse Ox 100 06/12/23 08:00 O2 Del Method Nasal Cannula 06/12/23 08:00 O2 Flow Rate 3 06/11/23 09:47 06/11/23 06/12/23 06/12/23 22:59 06:59 14:59 Intake Total 480 / 1440 241 / 241 Output Total 250 / 250 50 / 50 Balance 230 / 1190 191 / 191 Weight last 48 hrs Weight 122.334 kg Weight 122.016 kg Physical Exam 2 Narrative: awake,alert + EDEMA Data 06/08/23 04:14 06/08/23 12:28 A&P Assessment and plan (1) ESRD (end stage renal disease) on dialysis: Plan Pain 1. End-stage renal disease: Recently initiated on dialysis, 2. Anemia: Hemoglobin 10.8, monitor 3. Hypertension: Restarted home meds 4. Bilateral lower extremity lymphedema 5. History of CHF now now with pulmonary edema Plan: Hemodialysis today , ultrafiltration as tolerated Patient evaluated using audiovisual cart. Time spent 20 minutes. Attestations 2 Medical Necessity Statement*: per lois Coding Level of Care Code Acute Code for Chg Fwd Diagnoses ESRD (end stage renal disease) on dialysis N18.6; Z99.2
--- NOTE | 2023-06-12 10:34 | P.PN_ITS ---
Subjective 2 Subjective: Peer to peer review done Awaiting placement Continue dialysis routine Vitals/I&O/Wt Last Vital Signs Temp 98.0 F 06/12/23 08:00 Pulse 71 06/12/23 08:00 Resp 18 06/12/23 08:00 BP 126/66 06/12/23 08:00 Pulse Ox 100 06/12/23 08:00 O2 Del Method Nasal Cannula 06/12/23 08:00 O2 Flow Rate 3 06/11/23 09:47 06/11/23 06/12/23 06/12/23 22:59 06:59 14:59 Intake Total 480 / 1440 241 / 241 Output Total 250 / 250 50 / 50 Balance 230 / 1190 191 / 191 Weight last 48 hrs Weight 122.334 kg Weight 122.016 kg Physical Exam 2 Narrative: in good spirits Currently on room air GCS 15 Lymphedema wraps on legs Currently no active complaints No shortness of breath or chest pain Abdomen soft lying supine Data 06/08/23 04:14 06/08/23 12:28 A&P Assessment and plan (1) Afib: (2) Stasis dermatitis: (3) Fluid overload: (4) ESRD (end stage renal disease) on dialysis: (5) Cellulitis: (6) Wound of left lower extremity: Qualifiers: Encounter type: sequela Qualified Code(s): S81.802S - Unspecified open wound, left lower leg, sequela (7) Chronic respiratory failure with hypoxia: (8) Anasarca: (9) Inability to perform activities of daily living: (10) Lymphedema: Plan awaiting placement Peer to peer review completed today, they have taken my information, expecting a call back between 130 and 4:30 PM today Wound Care as per the wound care nurse Appreciate nephro Patient is only able to do supine exercises, with physical therapy he does not do much for lack of motivation, Attestations 2 Medical Necessity Statement*: Awaiting placement Diagnoses Afib I48.91 Stasis dermatitis I87.2 Fluid overload E87.70 ESRD (end stage renal disease) on dialysis N18.6; Z99.2 Cellulitis L03.90 Wound of left lower extremity, sequela S81.802S Encounter type: sequela Chronic respiratory failure with hypoxia J96.11 Anasarca R60.1 Inability to perform activities of daily living Z78.9 Lymphedema I89.0
[2023-06-12 11:17] LABS: Glucose Point of Care 113 mg/dL (70-110)
[2023-06-12 15:54] VITALS: BP 107/54; PULSE 68; RESP 18; TEMP 36.7; O2SAT 96
[2023-06-12 17:18] LABS: Glucose Point of Care 172 mg/dL (70-110)
[2023-06-12 19:59] VITALS: BP 112/65; PULSE 67; RESP 17; TEMP 36.7; O2SAT 100
[2023-06-12 21:00] LABS: Glucose Point of Care 165 mg/dL (70-110)
[2023-06-12 23:43] VITALS: BP 113/64; PULSE 66; RESP 17; TEMP 36.8; O2SAT 98
[2023-06-13] VITALS (7 sets, daily range): BP systolic 100–123; BP diastolic 60–75; PULSE 64–107; RESP 16–18; TEMP 36.4–36.9; O2SAT 92–100; BMI 35.6
--- NOTE | 2023-06-13 05:06 | PC.NURSE ---
bacitracin bacitracin placed on bilateral forarms.
[2023-06-13 07:40] LABS: Glucose Point of Care 190 mg/dL (70-110)
[2023-06-13] MEDS: amiodarone 200 mg Tablet PO (08:33)
[2023-06-13] MEDS: HYDROcodone-acetaminophen 5-325 mg Tablet 1 TAB PO ×3 (08:34→22:00)
[2023-06-13] MEDS: gabapentin 100 mg Capsule PO ×2 (08:34→17:39)
[2023-06-13] MEDS: doxycycline 100 mg Tablet PO ×2 (08:34→17:39)
[2023-06-13] MEDS: metoprolol tartrate 25 mg Tablet PO ×2 (08:34→20:15)
[2023-06-13] MEDS: pantoprazole DR 40 mg Tablet PO (08:34)
[2023-06-13] MEDS: apixaban 5 mg Tablet PO ×2 (08:34→20:15)
[2023-06-13] MEDS: sucralfate 1 gm Tablet PO ×4 (08:34→20:15)
[2023-06-13] MEDS: insulin lispro 100 unit/1 mL SUBCUT ×3 (08:35→20:49)
[2023-06-13] MEDS: nystatin powder 15 gm Btl 1 APPLIC TOPICAL ×2 (08:37→17:40)
[2023-06-13 10:44] LABS: Glucose Point of Care 171 mg/dL (70-110)
[2023-06-13] MEDS: bacitracin ointment 28 gm 1 APPLIC TOPICAL ×3 (10:48→20:16)
--- NOTE | 2023-06-13 12:04 | P.PN_ITS ---
Subjective 2 Subjective: Looking [facility] Vitals/I&O/Wt Last Vital Signs Temp 97.5 F L 06/13/23 11:37 Pulse 107 H 06/13/23 11:37 Resp 16 06/13/23 11:37 BP 100/60 06/13/23 11:37 Pulse Ox 96 06/13/23 11:37 O2 Del Method Room Air 06/13/23 11:37 O2 Flow Rate 3 06/11/23 09:47 06/12/23 06/13/23 06/13/23 22:59 06:59 14:59 Intake Total 120 / 531 120 / 120 Output Total 150 / 200 Balance -30 / 331 120 / 120 Weight last 48 hrs Weight 119.023 kg Weight 122.334 kg Physical Exam 2 Narrative: Currently on room air Hypervolemia improving GCS 15 Lower extremities covered with wraps Abdomen soft S1, S2 Currently on room air Pleasant and cooperative Data 06/08/23 04:14 06/08/23 12:28 A&P Assessment and plan (1) CHF (congestive heart failure): (2) Bradycardia: (3) Afib: (4) ESRD (end stage renal disease) on dialysis: (5) Lymphedema: (6) Anasarca: (7) Inability to perform activities of daily living: (8) Chronic respiratory failure with hypoxia: (9) Wound of left lower extremity: Qualifiers: Encounter type: sequela Qualified Code(s): S81.802S - Unspecified open wound, left lower leg, sequela (10) Wound of left foot: Plan Awaiting [facility] placement. Blood sugar normal Currently on room air Continue wound care Continue dialysis Attestations 2 Medical Necessity Statement*: Awaiting placement Coding Level of Care Code Acute Code for [facility] Diagnoses CHF (congestive heart failure) I50.9 Bradycardia R00.1 Afib I48.91 ESRD (end stage renal disease) on dialysis N18.6; Z99.2 Lymphedema I89.0 Anasarca R60.1 Inability to perform activities of daily living Z78.9 Chronic respiratory failure with hypoxia J96.11 Wound of left lower extremity, sequela S81.802S Encounter type: sequela Wound of left foot S91.302A
--- NOTE | 2023-06-13 13:46 | P.PN_ITS ---
Subjective 2 Subjective: no new complaints Medications: Reviewed: Yes Vitals/I&O/Wt Last Vital Signs Temp 97.5 F L 06/13/23 11:37 Pulse 107 H 06/13/23 11:37 Resp 16 06/13/23 11:37 BP 100/60 06/13/23 11:37 Pulse Ox 96 06/13/23 11:37 O2 Del Method Room Air 06/13/23 11:37 O2 Flow Rate 3 06/11/23 09:47 06/12/23 06/13/23 06/13/23 22:59 06:59 14:59 Intake Total 120 / 531 360 / 360 Output Total 150 / 200 Balance -30 / 331 360 / 360 Weight last 48 hrs Weight 119.023 kg Weight 122.334 kg Physical Exam 2 Narrative: awake,alert + EDEMA Data 06/08/23 04:14 06/08/23 12:28 A&P Assessment and plan (1) ESRD (end stage renal disease) on dialysis: Plan Pain 1. End-stage renal disease: Recently initiated on dialysis, 2. Anemia: Hemoglobin 10.8, monitor 3. Hypertension: Restarted home meds 4. Bilateral lower extremity lymphedema 5. History of CHF now now with pulmonary edema Plan: Hemodialysis tomorrow, ultrafiltration as tolerated Patient evaluated using audiovisual cart. Time spent 20 minutes. Attestations 2 Medical Necessity Statement*: per medicine team Coding Level of Care Code Acute Code for Chg Fwd Diagnoses ESRD (end stage renal disease) on dialysis N18.6; Z99.2
[2023-06-13 16:58] LABS: Glucose Point of Care 127 mg/dL (70-110)
[2023-06-13 20:30] LABS: Glucose Point of Care 185 mg/dL (70-110)
[2023-06-14 04:00] VITALS: BP 108/58; PULSE 61; RESP 14; TEMP 36.5; O2SAT 100
[2023-06-14] MEDS: HYDROcodone-acetaminophen 5-325 mg Tablet 1 TAB PO ×3 (04:03→20:30)
[2023-06-14] MEDS: sucralfate 1 gm Tablet PO ×3 (06:14→20:30)
[2023-06-14 06:59] LABS: Glucose Point of Care 132 mg/dL (70-110)
[2023-06-14 07:50] VITALS: BP 111/63; PULSE 61; RESP 17; TEMP 36.6; O2SAT 95
[2023-06-14] MEDS: apixaban 5 mg Tablet PO ×2 (08:56→20:31)
[2023-06-14] MEDS: doxycycline 100 mg Tablet PO ×2 (08:56→17:27)
[2023-06-14] MEDS: bacitracin ointment 28 gm 1 APPLIC TOPICAL ×2 (08:56→20:35)
[2023-06-14] MEDS: gabapentin 100 mg Capsule PO ×2 (08:56→17:27)
[2023-06-14] MEDS: amiodarone 200 mg Tablet PO (08:56)
[2023-06-14] MEDS: pantoprazole DR 40 mg Tablet PO (08:56)
[2023-06-14] MEDS: nystatin powder 15 gm Btl 1 APPLIC TOPICAL ×2 (08:57→17:27)
[2023-06-14] MEDS: albumin 12.5 GM/50 ML VIAL IV (09:00)
--- NOTE | 2023-06-14 10:54 | P.PN_ITS ---
Subjective 2 Subjective: no new complaints Medications: Reviewed: Yes Vitals/I&O/Wt Last Vital Signs Temp 97.8 F 06/14/23 07:50 Pulse 61 06/14/23 07:50 Resp 17 06/14/23 07:50 BP 111/63 06/14/23 07:50 Pulse Ox 95 06/14/23 07:50 O2 Del Method Nasal Cannula 06/14/23 07:50 O2 Flow Rate 3 06/14/23 04:00 06/13/23 06/14/23 06/14/23 22:59 06:59 14:59 Intake Total 360 / 720 240 / 240 Output Total 250 / 250 Balance 360 / 720 -250 / 470 240 / 240 Weight last 48 hrs Weight 118.614 kg Weight 119.023 kg Physical Exam 2 Narrative: awake,alert + EDEMA Data 06/08/23 04:14 06/14/23 11:44 A&P Assessment and plan (1) ESRD (end stage renal disease) on dialysis: Plan Pain 1. End-stage renal disease: Recently initiated on dialysis, 2. Anemia: Hemoglobin 10.8, monitor 3. Hypertension: Restarted home meds 4. Bilateral lower extremity lymphedema 5. History of CHF Plan: Hemodialysis today, ultrafiltration as tolerated Patient evaluated using audiovisual cart. Time spent 20 minutes. Attestations 2 Medical Necessity Statement*: per medicine Coding Level of Care Code Acute Code for Chg Fwd Diagnoses ESRD (end stage renal disease) on dialysis N18.6; Z99.2
[2023-06-14 11:38] LABS: Glucose Point of Care 156 mg/dL (70-110)
[2023-06-14 12:00] VITALS: BP 113/63; PULSE 93; RESP 18; TEMP 36.5; O2SAT 97
[2023-06-14 12:31] LABS: Anion Gap 13.6 (5-19); Blood Urea Nitrogen 16 mg/dL (8-23); Calcium 9.3 mg/dL (8.5-10.5); Carbon Dioxide 27 mmol/L (22-29); Chloride 100 mmol/L (98-107); Glomerular Filtration Rate 21.5 mL/min (90-130); Glucose 173 mg/dL (65-115); Osmolality Calculated 289 mOsm/kg (285-295); Potassium 3.6 mmol/L (3.5-5.1); Sodium 137 mmol/L (136-145)
--- NOTE | 2023-06-14 12:41 | P.PN_ITS ---
Subjective 2 Subjective: Dialysis today Vitals/I&O/Wt Last Vital Signs Temp 97.8 F 06/14/23 07:50 Pulse 61 06/14/23 07:50 Resp 17 06/14/23 07:50 BP 111/63 06/14/23 07:50 Pulse Ox 95 06/14/23 07:50 O2 Del Method Nasal Cannula 06/14/23 07:50 O2 Flow Rate 3 06/14/23 04:00 06/13/23 06/14/23 06/14/23 22:59 06:59 14:59 Intake Total 360 / 720 240 / 240 Output Total 250 / 250 Balance 360 / 720 -250 / 470 240 / 240 Weight last 48 hrs Weight 118.614 kg Weight 119.023 kg Physical Exam 2 Narrative: Signs of hypervolemia improving Intermittent use of oxygen No acute worsening of wounds Pleasant and cooperative Nonfocal neuroexam Nontender abdomen Data 06/08/23 04:14 06/14/23 11:44 A&P Assessment and plan (1) CHF (congestive heart failure): (2) Afib: (3) Stasis dermatitis: (4) Fluid overload: (5) ESRD (end stage renal disease) on dialysis: (6) Cellulitis: (7) Wound of left lower extremity: Qualifiers: Encounter type: sequela Qualified Code(s): S81.802S - Unspecified open wound, left lower leg, sequela (8) Wound of left foot: (9) Pressure sore on buttocks: (10) Chronic respiratory failure with hypoxia: (11) Inability to perform activities of daily living: (12) Anasarca: (13) Lymphedema: Plan Awaiting placement Continue Eliquis Blood pressure has been stable Disposition: We are looking for senior care placement, Peer to peer review was done as well If patient is able to work with PT I will give him the option to go home versus senior care Attestations 2 Medical Necessity Statement*: Continue medical management Coding Level of Care Code Acute Code for Chg Fwd Diagnoses CHF (congestive heart failure) I50.9 Afib I48.91 Stasis dermatitis I87.2 Fluid overload E87.70 ESRD (end stage renal disease) on dialysis N18.6; Z99.2 Cellulitis L03.90 Wound of left lower extremity, sequela S81.802S Encounter type: sequela Wound of left foot S91.302A Pressure sore on buttocks L89.309 Chronic respiratory failure with hypoxia J96.11 Inability to perform activities of daily living Z78.9 Anasarca R60.1 Lymphedema I89.0
--- NOTE | 2023-06-14 14:03 | PC.OT ---
OT treatment attempted. Patient was sleeping. Will attempt again later.
[2023-06-14] MEDS: heparin, porcine 1,000 unit/mL INJ 10 mL 10000 UNIT INTRACATH (14:08)
[2023-06-14] MEDS: epoetin alfa 1000 Unit/0.05 mL (ESRD) 20000 UNIT IVP (14:08)
[2023-06-14 16:35] LABS: Glucose Point of Care 198 mg/dL (70-110)
[2023-06-14 16:55] VITALS: BP 110/65; PULSE 70; RESP 18; TEMP 36.8; O2SAT 95
[2023-06-14] MEDS: insulin lispro 100 unit/1 mL SUBCUT ×2 (17:27→20:46)
[2023-06-14 20:00] VITALS: BP 117/63; PULSE 72; RESP 18; TEMP 36.7; O2SAT 98
[2023-06-14] MEDS: metoprolol tartrate 25 mg Tablet PO (20:30)
[2023-06-14] MEDS: lactulose oral liq 20 gm/30 mL UDC 30 GM PO (20:45)
[2023-06-14 20:47] LABS: Glucose Point of Care 207 mg/dL (70-110)
[2023-06-15] VITALS: BP 127/65; PULSE 67; RESP 18; TEMP 36.8; O2SAT 99
[2023-06-15 04:00] VITALS: BP 110/65; PULSE 63; RESP 18; TEMP 36.6; O2SAT 99
[2023-06-15] MEDS: HYDROcodone-acetaminophen 5-325 mg Tablet 1 TAB PO ×3 (06:26→19:18)
[2023-06-15] MEDS: sucralfate 1 gm Tablet PO ×4 (06:26→20:10)
[2023-06-15 06:44] LABS: Glucose Point of Care 390 mg/dL (70-110)
[2023-06-15 08:00] VITALS: BP 109/63; PULSE 69; RESP 20; TEMP 36.2; O2SAT 99
[2023-06-15] MEDS: insulin lispro 100 unit/1 mL SUBCUT ×3 (08:15→20:57)
[2023-06-15] MEDS: doxycycline 100 mg Tablet PO ×2 (08:16→17:39)
[2023-06-15] MEDS: metoprolol tartrate 25 mg Tablet PO ×2 (08:16→20:12)
[2023-06-15] MEDS: lactulose oral liq 20 gm/30 mL UDC PO (08:16)
[2023-06-15] MEDS: pantoprazole DR 40 mg Tablet PO (08:16)
[2023-06-15] MEDS: gabapentin 100 mg Capsule PO ×2 (08:16→17:39)
[2023-06-15] MEDS: apixaban 5 mg Tablet PO ×2 (08:17→20:12)
[2023-06-15] MEDS: nystatin powder 15 gm Btl 1 APPLIC TOPICAL ×2 (08:17→17:40)
[2023-06-15] MEDS: bacitracin ointment 28 gm 1 APPLIC TOPICAL ×2 (08:17→20:13)
[2023-06-15] MEDS: amiodarone 200 mg Tablet PO (08:19)
--- NOTE | 2023-06-15 10:56 | P.PN_ITS ---
Subjective 2 Subjective: No change in plan Awaiting placement Patient had a bowel movement yesterday after getting lactulose Vitals/I&O/Wt Last Vital Signs Temp 97.2 F L 06/15/23 08:00 Pulse 69 06/15/23 08:00 Resp 20 H 06/15/23 08:00 BP 109/63 06/15/23 08:00 Pulse Ox 99 06/15/23 08:00 O2 Del Method Nasal Cannula 06/15/23 08:00 O2 Flow Rate 3 06/14/23 04:00 06/14/23 06/15/23 06/15/23 22:59 06:59 14:59 Intake Total 240 / 530 240 / 240 Balance 240 / -921 240 / 240 Weight last 48 hrs Weight 118.444 kg Weight 118.614 kg Physical Exam 2 Narrative: Euvolemic Legs covered with dressing Pending Currently on room air Abdomen nontender however distended Pleasant cough Currently no acute distress Data 06/08/23 04:14 06/14/23 11:44 A&P Assessment and plan (1) CHF (congestive heart failure): (2) Afib: (3) Stasis dermatitis: (4) Fluid overload: (5) Lymphedema: (6) Anasarca: (7) Inability to perform activities of daily living: (8) Wound of left lower extremity: Qualifiers: Encounter type: sequela Qualified Code(s): S81.802S - Unspecified open wound, left lower leg, sequela (9) Pressure sore on buttocks: (10) Chronic respiratory failure with hypoxia: Plan Patient stating that he wanted to walk on his own using a walker He is agreeable for half-way placement for rehab Constipation resolved after getting lactulose Getting dialyzed as scheduled No change in plan today Full code Awaiting placement Attestations 2 Medical Necessity Statement*: Awaiting placement Coding Level of Care Code Acute Code for Chg Fwd Diagnoses CHF (congestive heart failure) I50.9 Afib I48.91 Stasis dermatitis I87.2 Fluid overload E87.70 Lymphedema I89.0 Anasarca R60.1 Inability to perform activities of daily living Z78.9 Wound of left lower extremity, sequela S81.802S Encounter type: sequela Pressure sore on buttocks L89.309 Chronic respiratory failure with hypoxia J96.11
[2023-06-15 12:06] VITALS: BP 102/61; PULSE 65; RESP 18; TEMP 36.4; O2SAT 98
[2023-06-15 12:14] LABS: Glucose Point of Care 92 mg/dL (70-110)
[2023-06-15 16:31] LABS: Glucose Point of Care 200 mg/dL (70-110)
[2023-06-15 16:57] VITALS: BP 103/58; PULSE 73; RESP 20; TEMP 36.3; O2SAT 94
--- NOTE | 2023-06-15 17:02 | P.PN_ITS ---
Subjective 2 Subjective: no new complaints Medications: Reviewed: Yes Vitals/I&O/Wt Last Vital Signs Temp 97.3 F L 06/15/23 16:57 Pulse 73 06/15/23 16:57 Resp 20 H 06/15/23 16:57 BP 103/58 06/15/23 16:57 Pulse Ox 94 06/15/23 16:57 O2 Del Method Room Air 06/15/23 16:57 O2 Flow Rate 3 06/14/23 04:00 06/15/23 06/15/23 06/15/23 06:59 14:59 22:59 Intake Total 480 / 480 Balance 480 / 480 Weight last 48 hrs Weight 118.444 kg Weight 118.614 kg Physical Exam 2 Narrative: awake,alert + EDEMA Data 06/08/23 04:14 06/14/23 11:44 A&P Assessment and plan (1) ESRD (end stage renal disease) on dialysis: Plan Pain 1. End-stage renal disease: Recently initiated on dialysis, 2. Anemia: Hemoglobin 10.8, monitor 3. Hypertension: Restarted home meds 4. Bilateral lower extremity lymphedema 5. History of CHF Plan: Hemodialysis per TTS schedule , ultrafiltration as tolerated Patient evaluated using audiovisual cart. Time spent 20 minutes. Attestations 2 Medical Necessity Statement*: per medicine team Coding Level of Care Code Acute Code for Chg Fwd Diagnoses ESRD (end stage renal disease) on dialysis N18.6; Z99.2
[2023-06-15 20:00] VITALS: BP 105/62; PULSE 67; RESP 18; TEMP 36.6; O2SAT 98
[2023-06-15 20:44] LABS: Glucose Point of Care 230 mg/dL (70-110)
[2023-06-16] VITALS (8 sets, daily range): BP systolic 90–118; BP diastolic 43–66; PULSE 59–72; RESP 16–20; TEMP 36.2–37.2; O2SAT 96–100
[2023-06-16] MEDS: HYDROcodone-acetaminophen 5-325 mg Tablet 1 TAB PO ×4 (01:23→21:28)
[2023-06-16] MEDS: sucralfate 1 gm Tablet PO ×4 (06:16→21:29)
[2023-06-16 06:31] LABS: Glucose Point of Care 216 mg/dL (70-110)
[2023-06-16] MEDS: amiodarone 200 mg Tablet PO (09:09)
[2023-06-16] MEDS: doxycycline 100 mg Tablet PO ×2 (09:09→17:06)
[2023-06-16] MEDS: pantoprazole DR 40 mg Tablet PO (09:09)
[2023-06-16] MEDS: insulin lispro 100 unit/1 mL SUBCUT ×4 (09:10→21:36)
[2023-06-16] MEDS: bacitracin ointment 28 gm 1 APPLIC TOPICAL ×3 (09:10→21:38)
[2023-06-16] MEDS: gabapentin 100 mg Capsule PO ×2 (09:10→17:06)
[2023-06-16] MEDS: apixaban 5 mg Tablet PO ×2 (09:12→21:29)
[2023-06-16] MEDS: metoprolol tartrate 25 mg Tablet PO ×2 (09:15→21:29)
[2023-06-16] MEDS: nystatin powder 15 gm Btl 1 APPLIC TOPICAL ×2 (09:17→17:13)
--- NOTE | 2023-06-16 10:27 | P.PN_ITS ---
Subjective 2 Subjective: no new c/o Medications: Reviewed: Yes Vitals/I&O/Wt Last Vital Signs Temp 97.4 F L 06/16/23 08:18 Pulse 67 06/16/23 09:29 Resp 18 06/16/23 09:29 BP 118/61 06/16/23 08:18 Pulse Ox 96 06/16/23 09:29 O2 Del Method Room Air 06/16/23 09:29 O2 Flow Rate 3 06/14/23 04:00 06/15/23 06/16/23 06/16/23 22:59 06:59 14:59 Intake Total 240 / 720 480 / 480 Output Total 1701 / 1701 Balance -1461 / -981 480 / 480 Weight last 48 hrs Weight 118.926 kg Weight 118.444 kg Physical Exam 2 Narrative: awake,alert + EDEMA Data 06/08/23 04:14 06/14/23 11:44 A&P Assessment and plan (1) ESRD (end stage renal disease) on dialysis: Plan Pain 1. End-stage renal disease: Recently initiated on dialysis, 2. Anemia: Hemoglobin 10.8, monitor 3. Hypertension: Restarted home meds 4. Bilateral lower extremity lymphedema 5. History of CHF Plan: Hemodialysis per TTS schedule , ultrafiltration as tolerated Patient evaluated using audiovisual cart. Time spent 20 minutes. Attestations 2 Medical Necessity Statement*: per lois Coding Level of Care Code Acute Code for Chg Fwd Diagnoses ESRD (end stage renal disease) on dialysis N18.6; Z99.2
[2023-06-16 11:30] LABS: Glucose Point of Care 187 mg/dL (70-110)
--- NOTE | 2023-06-16 12:21 | P.PN_ITS ---
Subjective 2 Subjective: Patient is ready to be discharged I was told he will be transported tomorrow Vitals/I&O/Wt Last Vital Signs Temp 98.0 F 06/16/23 11:49 Pulse 68 06/16/23 11:49 Resp 20 H 06/16/23 11:49 BP 105/43 06/16/23 11:49 Pulse Ox 97 06/16/23 11:49 O2 Del Method Room Air 06/16/23 11:49 O2 Flow Rate 3 06/14/23 04:00 06/15/23 06/16/23 06/16/23 22:59 06:59 14:59 Intake Total 240 / 720 480 / 480 Output Total 1701 / 1701 Balance -1461 / -981 480 / 480 Weight last 48 hrs Weight 118.926 kg Weight 118.444 kg Physical Exam 2 Narrative: Pleasant and calm Signs of hypervolemia improved GCS 15 Currently on room air Pleasant and cooperative Lower extremity swelling improved as well Data 06/08/23 04:14 06/14/23 11:44 A&P Assessment and plan (1) CHF (congestive heart failure): (2) Afib: (3) Stasis dermatitis: (4) Fluid overload: (5) ESRD (end stage renal disease) on dialysis: (6) Wound of right lower extremity: Qualifiers: Encounter type: sequela Qualified Code(s): S81.801S - Unspecified open wound, right lower leg, sequela (7) Wound of left lower extremity: Qualifiers: Encounter type: sequela Qualified Code(s): S81.802S - Unspecified open wound, left lower leg, sequela (8) Chronic respiratory failure with hypoxia: (9) Inability to perform activities of daily living: (10) Anasarca: (11) Lymphedema: Plan Likely will be discharged tomorrow Attestations 2 Medical Necessity Statement*: Discharge tomorrow Coding Level of Care Code Acute Code for [facility] Fwd Diagnoses CHF (congestive heart failure) I50.9 Afib I48.91 Stasis dermatitis I87.2 Fluid overload E87.70 ESRD (end stage renal disease) on dialysis N18.6; Z99.2 Wound of right lower extremity, sequela S81.801S Encounter type: sequela Wound of left lower extremity, sequela S81.802S Encounter type: sequela Chronic respiratory failure with hypoxia J96.11 Inability to perform activities of daily living Z78.9 Anasarca R60.1 Lymphedema I89.0
[2023-06-16 16:51] LABS: Glucose Point of Care 215 mg/dL (70-110)
[2023-06-16 21:33] LABS: Glucose Point of Care 184 mg/dL (70-110)
[2023-06-17 04:27] VITALS: BP 114/62; PULSE 65; RESP 16; TEMP 37.2; O2SAT 96
[2023-06-17 06:25] LABS: Glucose Point of Care 198 mg/dL (70-110)
[2023-06-17] MEDS: sucralfate 1 gm Tablet PO ×4 (06:27→21:39)
[2023-06-17 07:06] VITALS: BP 106/56; PULSE 57; RESP 14; TEMP 36.7; O2SAT 94
[2023-06-17] MEDS: doxycycline 100 mg Tablet PO ×2 (07:42→18:02)
[2023-06-17] MEDS: apixaban 5 mg Tablet PO ×2 (07:42→21:39)
[2023-06-17] MEDS: metoprolol tartrate 25 mg Tablet PO ×2 (07:43→21:39)
[2023-06-17] MEDS: pantoprazole DR 40 mg Tablet PO (07:44)
[2023-06-17] MEDS: gabapentin 100 mg Capsule PO ×2 (07:44→18:02)
[2023-06-17] MEDS: HYDROcodone-acetaminophen 5-325 mg Tablet 1 TAB PO ×2 (07:44→18:32)
[2023-06-17] MEDS: bacitracin ointment 28 gm 1 APPLIC TOPICAL (07:45)
[2023-06-17] MEDS: amiodarone 200 mg Tablet PO (07:45)
[2023-06-17] MEDS: nystatin powder 15 gm Btl 1 APPLIC TOPICAL ×2 (07:45→18:03)
[2023-06-17] MEDS: insulin lispro 100 unit/1 mL SUBCUT ×4 (07:46→21:39)
[2023-06-17 08:10] VITALS: PULSE 60; RESP 16; O2SAT 96
--- NOTE | 2023-06-17 09:51 | PM.DCS ---
Discharge Providers Date of Admission: 06/05/23 00:11 Date of Discharge: June 17, 2023 Attending Provider at Admission: Jen Albright MD Attending Provider at Discharge: Erick Rodriguez MD Primary Care Provider: Misty Ibrahim Diagnoses at Discharge Discharge Diagnosis (1) CHF (congestive heart failure): Status: Acute (2) Afib: Status: Acute (3) Stasis dermatitis: Status: Acute (4) Fluid overload: Status: Acute (5) ESRD (end stage renal disease) on dialysis: Status: Acute (6) Wound of right lower extremity: Status: Acute Qualifiers: Encounter type: sequela Qualified Code(s): S81.801S - Unspecified open wound, right lower leg, sequela (7) Wound of left lower extremity: Status: Acute Qualifiers: Encounter type: sequela Qualified Code(s): S81.802S - Unspecified open wound, left lower leg, sequela (8) Chronic respiratory failure with hypoxia: Status: Acute (9) Inability to perform activities of daily living: Status: Acute (10) Anasarca: Status: Acute (11) Lymphedema: Status: Acute Reason for Visit Reason for Visit: Bed Sores Hospital Course Hospital Course 8-year-old male with end-stage renal disease, return to the hospital because he was not able to use wheelchair or use a walker because of his diabetic foot ulcer, his wheelchair could not get out of his house because of the size and he missed multiple dialysis sessions return to the hospital with fluid overload, wound care nurse was consulted for diabetic foot ulcer management, lymphedema wraps were used, patient was dialyzed as per the schedule Friday, patient remained hemodynamically stable, we continued his Eliquis and A-fib rate control medications, patient is being discharged to SNF/rehab, most likely it will be a short stay until he has enough energy and strength to get himself in and out of the wheelchair in order to make it to the dialysis transportation car when he goes home. He has been requiring oxygen intermittently, at baseline requires 2 to 3 L, is not able to take care of him, he will continue his long-acting insulin along sliding scale. Physical Exam Narrative: Sign of fluid load improving Diabetic foot ulcers improved GCS 15 Pleasant and cooperative S1, S2 On 2 L No active complaints Discharge Data Studies Completed and Pending Laboratory Results WBC 4.94 10^3/uL (3.29-11.43) 06/08/23 04:14 RBC 3.04 10^6/uL (3.85-5.65) L 06/08/23 04:14 Hgb 9.30 g/dL (11.27-16.99) L 06/08/23 04:14 Hct 30.0 % (37-53) L 06/08/23 04:14 MCV 98.7 fl (82-101) 06/08/23 04:14 MCH 30.6 pg (27-33) 06/08/23 04:14 MCHC 31.0 g/dL (30-55) 06/08/23 04:14 RDW 16.0 % (12.1-15.1) H 06/08/23 04:14 Plt Count 203 10^3/cmm (157-399) 06/08/23 04:14 MPV 9.3 fL (7.4-10.4) 06/08/23 04:14 Neut % (Auto) 71.1 % 06/08/23 04:14 Lymph % (Auto) 9.3 % 06/08/23 04:14 [place] % (Auto) 10.1 % 06/08/23 04:14 Eos % (Auto) 8.5 % 06/08/23 04:14 Baso % (Auto) 0.6 % 06/08/23 04:14 Neut # (Auto) 3.51 10^3/uL (1.8-7.7) 06/08/23 04:14 Lymph # (Auto) 0.5 10^3/uL (0.8-4.8) L 06/08/23 04:14 [place] # (Auto) 0.5 10^3/uL (0.2-0.9) 06/08/23 04:14 Eos # (Auto) 0.4 10^3/uL (0.0-0.8) 06/08/23 04:14 Baso # (Auto) 0.0 10^3/uL (0.0-0.1) 06/08/23 04:14 Nucleated RBC % (auto) 0 % 06/08/23 04:14 Nucleated RBCs # 0.0 /100WBC 06/08/23 04:14 Sodium 137 mmol/L (136-145) 06/14/23 11:44 Potassium 3.6 mmol/L (3.5-5.1) 06/14/23 11:44 Chloride 100 mmol/L (98-107) 06/14/23 11:44 Carbon Dioxide 27 mmol/L (22-29) 06/14/23 11:44 Anion Gap 13.6 (5-19) 06/14/23 11:44 BUN 16 mg/dL (8-23) 06/14/23 11:44 Creatinine 3.0 mg/dL (0.7-1.2) H 06/14/23 11:44 GFR Calculation 21.5 mL/min (90-130) L 06/14/23 11:44 Glucose 173 mg/dL (65-115) H 06/14/23 11:44 POC Glucose 198 mg/dL (70-110) H 06/17/23 06:16 Calculated Osmolality 289 mOsm/kg (285-295) 06/14/23 11:44 Calcium 9.3 mg/dL (8.5-10.5) 06/14/23 11:44 Phosphorus 2.3 mg/dL (2.5-4.5) L 06/04/23 19:37 Magnesium 2.2 mg/dL (1.7-2.3) 06/04/23 19:37 Total Bilirubin 0.6 mg/dL (0.15-1.2) 06/06/23 04:29 AST 6 U/L (0-40) 06/06/23 04:29 ALT < 5 U/L (0-41) 06/06/23 04:29 Alkaline Phosphatase 165 U/L (40-130) H 06/06/23 04:29 Creatine Kinase 30 U/L (39-308) L 06/04/23 19:37 Total Protein 5.6 g/dL (6.6-8.7) L 06/06/23 04:29 Albumin 3.0 g/dL (3.5-5.2) L 06/06/23 04:29 Globulin 2.6 g/dL (1.3-4.6) 06/06/23 04:29 Vitals Last Vital Signs Temp 98.0 F 06/17/23 07:06 Pulse 60 06/17/23 08:10 Resp 16 06/17/23 08:10 BP 106/56 06/17/23 07:06 Pulse Ox 96 06/17/23 08:10 O2 Del Method Room Air 06/17/23 08:10 O2 Flow Rate 2.5 06/16/23 20:00 Discharge Plan Discharge Patient Disposition: Xfer SNF Condition: Stable Prescriptions: Continued folic acid 1 mg Tablet 1 mg PO BID Qty: 60 0RF calcium acetate [Calphron] 667 mg Tablet 1,334 mg PO TIDWM Qty: 90 0RF insulin aspart U-100 [Novolog FlexPen U-100 Insulin] 100 unit/mL (3 mL) insulin pen See Rx Instructions .ROUTE .COMPLEX Qty: 15 0RF Rx Instructions: INJECT SUBCUTANEOUSLY PER SLIDING SCALE TID Levemir FlexPen 100 unit/mL (3 mL) insulin pen 8 unit SUBCUT DAILY Qty: 15 0RF gabapentin 100 mg capsule 100 mg PO BID Qty: 60 0RF albuterol sulfate 2.5 mg /3 mL (0.083 %) solution for nebulization 2.5 mg inhalation Q4H PRN (Reason: Shortness Of Breath) amiodarone 200 mg tablet 200 mg PO QAM silver sulfadiazine [SSD] 1 % cream 1 applic TOPICAL DAILY Eliquis 5 mg tablet 5 mg PO QPM epinephrine 0.3 mg/0.3 mL auto-injector 0.3 mg IM Q10M PRN (Reason: anaphylaxis) Qty: 2 0RF Rx Instructions: for 2 doses Stool Softener-Laxative 8.6-50 mg tablet 1 tab PO DAILY PRN (Reason: Constipation) amlodipine 10 mg tablet 10 mg PO QAM metoprolol tartrate 50 mg tablet 50 mg PO BID Discharge Orders: Discharge Order (Routine); Ordered 06/17/23 Ordered By: Erick Rodriguez Referrals: [facility] [Outside] Misty Ibrahim [Primary Care Provider] - Patient Instructions: Dialysis Diet (DC), Hemodialysis (DC), Opioid Safety Discharge Attestations Time Spent in Discharge Care*: greater than 30 min Quality Metrics Clinical Quality Measures [ No reported AMI, CVA or VTE this stay] Coding Level of Care Code Acute Code for Chg Fwd Diagnoses CHF (congestive heart failure) I50.9 Afib I48.91 Stasis dermatitis I87.2 Fluid overload E87.70 ESRD (end stage renal disease) on dialysis N18.6; Z99.2 Wound of right lower extremity, sequela S81.801S Encounter type: sequela Wound of left lower extremity, sequela S81.802S Encounter type: sequela Chronic respiratory failure with hypoxia J96.11 Inability to perform activities of daily living Z78.9 Anasarca R60.1 Lymphedema I89.0
--- NOTE | 2023-06-17 11:12 | PC.OT ---
OT LYMPHEDEMA CARE HELD THIS DATE DUE TO POSSIBLE D/C AND THERAPIST ILLNESS. PATIENT IN AGREEMENT.
[2023-06-17 11:45] LABS: Glucose Point of Care 172 mg/dL (70-110)
[2023-06-17 11:49] VITALS: BP 97/55; PULSE 68; RESP 16; TEMP 36.4; O2SAT 92
--- NOTE | 2023-06-17 12:52 | P.PN_ITS ---
Subjective 2 Subjective: getting hd Medications: Reviewed: Yes Vitals/I&O/Wt Last Vital Signs Temp 97.6 F 06/17/23 11:49 Pulse 68 06/17/23 11:49 Resp 16 06/17/23 11:49 BP 97/55 06/17/23 11:49 Pulse Ox 92 06/17/23 11:49 O2 Del Method Room Air 06/17/23 11:49 O2 Flow Rate 2.5 06/16/23 20:00 06/16/23 06/17/23 06/17/23 22:59 06:59 14:59 Intake Total 960 / 1920 480 / 2400 480 / 480 Output Total 250 / 250 Balance 960 / 1920 230 / 2150 480 / 480 Weight last 48 hrs Weight 118.926 kg Weight 118.926 kg Physical Exam 2 Narrative: awake,alert + EDEMA Data 06/08/23 04:14 06/14/23 11:44 A&P Assessment and plan (1) ESRD (end stage renal disease) on dialysis: Plan Pain 1. End-stage renal disease: Recently initiated on dialysis, 2. Anemia: Hemoglobin 10.8, monitor 3. Hypertension: Restarted home meds 4. Bilateral lower extremity lymphedema 5. History of CHF Plan: Hemodialysis per TTS schedule , ultrafiltration as tolerated Patient evaluated using audiovisual cart. Time spent 20 minutes. Attestations 2 Medical Necessity Statement*: per medicine Coding Level of Care Code Acute Code for Chg Fwd Diagnoses ESRD (end stage renal disease) on dialysis N18.6; Z99.2
[2023-06-17] MEDS: albumin 12.5 GM/50 ML VIAL IV ×2 (14:45→18:12)
[2023-06-17 17:21] LABS: Glucose Point of Care 163 mg/dL (70-110)
[2023-06-17] MEDS: heparin, porcine 1,000 unit/mL INJ 10 mL 1000 UNIT IV (18:08)
[2023-06-17] MEDS: heparin, porcine 1,000 unit/mL INJ 10 mL 10000 UNIT INTRACATH (18:09)
[2023-06-17 20:00] VITALS: BP 108/58; PULSE 63; RESP 17; TEMP 37.1; O2SAT 100
[2023-06-17 21:36] LABS: Glucose Point of Care 156 mg/dL (70-110)
[2023-06-18] VITALS: BP 116/58; PULSE 64; RESP 18; TEMP 36.4; O2SAT 91
[2023-06-18] MEDS: HYDROcodone-acetaminophen 5-325 mg Tablet 1 TAB PO ×2 (01:23→07:12)
[2023-06-18 04:00] VITALS: BP 117/60; PULSE 60; RESP 17; TEMP 36.3; O2SAT 97
[2023-06-18] MEDS: sucralfate 1 gm Tablet PO ×2 (06:23→11:56)
[2023-06-18 07:12] LABS: Glucose Point of Care 194 mg/dL (70-110)
[2023-06-18 08:00] VITALS: BP 106/40; PULSE 60; PULSE 62; RESP 16; TEMP 36.6; O2SAT 98
[2023-06-18] MEDS: amiodarone 200 mg Tablet PO (08:06)
[2023-06-18] MEDS: metoprolol tartrate 25 mg Tablet PO (08:06)
[2023-06-18] MEDS: pantoprazole DR 40 mg Tablet PO (08:06)
[2023-06-18] MEDS: doxycycline 100 mg Tablet PO (08:06)
[2023-06-18] MEDS: nystatin powder 15 gm Btl 1 APPLIC TOPICAL (08:07)
[2023-06-18] MEDS: apixaban 5 mg Tablet PO (08:07)
[2023-06-18] MEDS: bacitracin ointment 28 gm 1 APPLIC TOPICAL (08:07)
[2023-06-18] MEDS: gabapentin 100 mg Capsule PO (08:07)
[2023-06-18] MEDS: insulin lispro 100 unit/1 mL SUBCUT ×2 (08:08→11:56)
[2023-06-18 08:44] VITALS: PULSE 62; RESP 16; O2SAT 98
--- NOTE | 2023-06-18 11:10 | PM.PN ---
Subjective Subjective: Patient is leaving today he was not able to go yesterday because of the inclement weather discharge order was placed on 06/17 Vitals/I&O/Wt Last Vital Signs Temp 97.9 F 06/18/23 08:00 Pulse 62 06/18/23 08:44 Resp 16 06/18/23 08:44 BP 106/40 06/18/23 08:00 Pulse Ox 98 06/18/23 08:44 O2 Del Method Room Air 06/18/23 08:44 O2 Flow Rate 2.5 06/16/23 20:00 06/17/23 06/18/23 06/18/23 22:59 06:59 14:59 Intake Total 580 / 1060 120 / 1180 240 / 240 Output Total 100 / 100 Balance 580 / 1060 20 / 1080 240 / 240 Weight last 48 hrs Weight 119.023 kg Weight 118.926 kg Physical Exam Narrative: Awake and alert Euvolemic Currently on room air pleasant cooperative No active complaints Laying supine without any discomfort Data 06/08/23 04:14 06/14/23 11:44 A&P Assessment and plan (1) Afib: (2) CHF (congestive heart failure): (3) Bradycardia: (4) Stasis dermatitis: Plan Patient is leaving today Attestations Medical Necessity Statement*: Discharge today Coding Level of Care Code Acute Code for [facility] Fwd Diagnoses Afib I48.91 CHF (congestive heart failure) I50.9 Bradycardia R00.1 Stasis dermatitis I87.2
[2023-06-18 11:36] LABS: Glucose Point of Care 214 mg/dL (70-110)
[2023-06-18 11:55] VITALS: BP 113/63; PULSE 63; RESP 16; TEMP 36.7; O2SAT 97
--- NOTE | 2023-06-18 12:16 | PM.DCS ---
Discharge Providers Date of Admission: 06/05/23 00:11 Date of Discharge: June 18, 2023 Attending Provider at Admission: Jen Albright MD Attending Provider at Discharge: Erick Rodriguez MD Primary Care Provider: Misty Ibrahim Diagnoses at Discharge Discharge Diagnosis (1) Afib: Status: Acute (2) CHF (congestive heart failure): Status: Acute (3) Bradycardia: Status: Acute (4) Stasis dermatitis: Status: Acute Reason for Visit Reason for Visit: Bed Sores Hospital Course Hospital Course 8-year-old male with end-stage renal disease, return to the hospital because he was not able to use wheelchair or use a walker because of his diabetic foot ulcer, his wheelchair could not get out of his house because of the size and he missed multiple dialysis sessions return to the hospital with fluid overload, wound care nurse was consulted for diabetic foot ulcer management, lymphedema wraps were used, patient was dialyzed as per the schedule Friday, patient remained hemodynamically stable, we continued his Eliquis and A-fib rate control medications, patient is being discharged to SNF/rehab, most likely it will be a short stay until he has enough energy and strength to get himself in and out of the wheelchair in order to make it to the dialysis transportation car when he goes home. He has been requiring oxygen intermittently, at baseline requires 2 to 3 L, is not able to take care of him, he will continue his long-acting insulin along sliding scale. Physical Exam Narrative: Signs of fluid load improving Diabetic foot ulcers improved GCS 15 Pleasant and cooperative S1, S2 On 2 L No active complaints Discharge Data Studies Completed and Pending Laboratory Results WBC 4.94 10^3/uL (3.29-11.43) 06/08/23 04:14 RBC 3.04 10^6/uL (3.85-5.65) L 06/08/23 04:14 Hgb 9.30 g/dL (11.27-16.99) L 06/08/23 04:14 Hct 30.0 % (37-53) L 06/08/23 04:14 MCV 98.7 fl (82-101) 06/08/23 04:14 MCH 30.6 pg (27-33) 06/08/23 04:14 MCHC 31.0 g/dL (30-55) 06/08/23 04:14 RDW 16.0 % (12.1-15.1) H 06/08/23 04:14 Plt Count 203 10^3/cmm (157-399) 06/08/23 04:14 MPV 9.3 fL (7.4-10.4) 06/08/23 04:14 Neut % (Auto) 71.1 % 06/08/23 04:14 Lymph % (Auto) 9.3 % 06/08/23 04:14 [place] % (Auto) 10.1 % 06/08/23 04:14 Eos % (Auto) 8.5 % 06/08/23 04:14 Baso % (Auto) 0.6 % 06/08/23 04:14 Neut # (Auto) 3.51 10^3/uL (1.8-7.7) 06/08/23 04:14 Lymph # (Auto) 0.5 10^3/uL (0.8-4.8) L 06/08/23 04:14 [place] # (Auto) 0.5 10^3/uL (0.2-0.9) 06/08/23 04:14 Eos # (Auto) 0.4 10^3/uL (0.0-0.8) 06/08/23 04:14 Baso # (Auto) 0.0 10^3/uL (0.0-0.1) 06/08/23 04:14 Nucleated RBC % (auto) 0 % 06/08/23 04:14 Nucleated RBCs # 0.0 /100WBC 06/08/23 04:14 Sodium 137 mmol/L (136-145) 06/14/23 11:44 Potassium 3.6 mmol/L (3.5-5.1) 06/14/23 11:44 Chloride 100 mmol/L (98-107) 06/14/23 11:44 Carbon Dioxide 27 mmol/L (22-29) 06/14/23 11:44 Anion Gap 13.6 (5-19) 06/14/23 11:44 BUN 16 mg/dL (8-23) 06/14/23 11:44 Creatinine 3.0 mg/dL (0.7-1.2) H 06/14/23 11:44 GFR Calculation 21.5 mL/min (90-130) L 06/14/23 11:44 Glucose 173 mg/dL (65-115) H 06/14/23 11:44 POC Glucose 214 mg/dL (70-110) H 06/18/23 11:33 Calculated Osmolality 289 mOsm/kg (285-295) 06/14/23 11:44 Calcium 9.3 mg/dL (8.5-10.5) 06/14/23 11:44 Phosphorus 2.3 mg/dL (2.5-4.5) L 06/04/23 19:37 Magnesium 2.2 mg/dL (1.7-2.3) 06/04/23 19:37 Total Bilirubin 0.6 mg/dL (0.15-1.2) 06/06/23 04:29 AST 6 U/L (0-40) 06/06/23 04:29 ALT < 5 U/L (0-41) 06/06/23 04:29 Alkaline Phosphatase 165 U/L (40-130) H 06/06/23 04:29 Creatine Kinase 30 U/L (39-308) L 06/04/23 19:37 Total Protein 5.6 g/dL (6.6-8.7) L 06/06/23 04:29 Albumin 3.0 g/dL (3.5-5.2) L 06/06/23 04:29 Globulin 2.6 g/dL (1.3-4.6) 06/06/23 04:29 Vitals Last Vital Signs Temp 98.0 F 06/18/23 11:55 Pulse 63 06/18/23 11:55 Resp 16 06/18/23 11:55 BP 113/63 06/18/23 11:55 Pulse Ox 97 06/18/23 11:55 O2 Del Method Room Air 06/18/23 11:55 O2 Flow Rate 2.5 06/16/23 20:00 Discharge Plan Discharge Patient Disposition: Xfer SNF Condition: Stable Prescriptions: Continued folic acid 1 mg Tablet 1 mg PO BID Qty: 60 0RF calcium acetate [Calphron] 667 mg Tablet 1,334 mg PO TIDWM Qty: 90 0RF insulin aspart U-100 [Novolog FlexPen U-100 Insulin] 100 unit/mL (3 mL) insulin pen See Rx Instructions .ROUTE .COMPLEX Qty: 15 0RF Rx Instructions: INJECT SUBCUTANEOUSLY PER SLIDING SCALE TID Levemir FlexPen 100 unit/mL (3 mL) insulin pen 8 unit SUBCUT DAILY Qty: 15 0RF gabapentin 100 mg capsule 100 mg PO BID Qty: 60 0RF albuterol sulfate 2.5 mg /3 mL (0.083 %) solution for nebulization 2.5 mg inhalation Q4H PRN (Reason: Shortness Of Breath) amiodarone 200 mg tablet 200 mg PO QAM silver sulfadiazine [SSD] 1 % cream 1 applic TOPICAL DAILY Eliquis 5 mg tablet 5 mg PO QPM epinephrine 0.3 mg/0.3 mL auto-injector 0.3 mg IM Q10M PRN (Reason: anaphylaxis) Qty: 2 0RF Rx Instructions: for 2 doses Stool Softener-Laxative 8.6-50 mg tablet 1 tab PO DAILY PRN (Reason: Constipation) amlodipine 10 mg tablet 10 mg PO QAM metoprolol tartrate 50 mg tablet 50 mg PO BID Discharge Orders: Discharge Order (Routine); Ordered 06/18/23 Ordered By: Erick Rodriguez Referrals: [facility] [Outside] [facility], [Staff Physician] - 4-7 days Patient Instructions: Dialysis Diet (DC), Hemodialysis (DC), Opioid Safety Discharge Attestations Time Spent in Discharge Care*: greater than 30 min Quality Metrics Clinical Quality Measures [ No reported AMI, CVA or VTE this stay] Coding Level of Care Code Acute Code for [facility] Fwd Diagnoses Afib I48.91 CHF (congestive heart failure) I50.9 Bradycardia R00.1 Stasis dermatitis I87.2
--- NOTE | 2023-06-18 13:49 | PC.NURSE ---
Called report to Amalia Patel at [facility].
== END 2023-06-18 16:02 | disposition skilled nursing facility (03) ==
LOC: ER 21:52 → MEDSURG 06-05 07:59
PROVIDERS: Admitting Provider Student in an Organized Health Care Education/Training Program; Emergency Provider Emergency Medicine; PCP Registered Nurse; Visit Provider Internal Medicine
DX: I48.91 Unspecified atrial fibrillation (principal); E11.22 Type 2 diabetes mellitus with diabetic chronic kidney disease; I13.0 Hypertensive heart and chronic kidney disease with heart failure and stage 1 through stage 4 chronic kidney disease, or unspecified chronic kidney disease; N18.6 End stage renal disease; I50.9 Heart failure, unspecified; R00.1 Bradycardia, unspecified; I87.2 Venous insufficiency (chronic) (peripheral); E11.621 Type 2 diabetes mellitus with foot ulcer; Z79.4 Long term (current) use of insulin; Z99.2 Dependence on renal dialysis; D63.1 Anemia in chronic kidney disease; E87.70 Fluid overload, unspecified; S81.801S Unspecified open wound, right lower leg, sequela; S81.802S Unspecified open wound, left lower leg, sequela; X58.XXXS Exposure to other specified factors, sequela; J96.11 Chronic respiratory failure with hypoxia; Z78.9 Other specified health status; R60.1 Generalized edema; I89.0 Lymphedema, not elsewhere classified; K59.00 Constipation, unspecified; Z91.81 History of falling
CPT/HCPCS: 36415; 36416; 80048; 80053; 82550; 82962; 83735; 84100; 85025; 90935; 96365; 96372; 96375; 97110; 97116; 97124; 97161; 97166; 97168; 97530; 97535; 99285; G0378; J0696; J1170; J1644; J1815; J2270; J2405; J3490; P9047; Q3014; Q4081

== ENCOUNTER 2023-08-02 17:28 | Emergency (ER) | payer MEDICAID, SELFPAY ==
[2023-08-02 17:29] VITALS: BMI 40.6
[2023-08-02 17:34] VITALS: BP 112/57; PULSE 96; RESP 17; TEMP 37.2; O2SAT 88
--- NOTE | 2023-08-02 17:35 | XRR_ITS ---
PROCEDURE INFORMATION: Exam: XR Chest Exam date and time: 08/02/2023 5:44 PM Age: 62 years old Clinical indication: Fever; Prior surgery; Surgery date: 1-6 months; Surgery type: Central line TECHNIQUE: Imaging protocol: Radiologic exam of the chest. Views: 1 view. COMPARISON: CR XR chest 1V portable [id number] 05/23/2023 3:28 PM FINDINGS: Tubes, catheters and devices: Right IJ dialysis catheter with tip in the cavoatrial region. Lungs: Cardiac silhouette size, and vascularity are somewhat accentuated with some interval improvement, likely related to poor inspiration/expansion however clinical correlation for mild CHF/fluid overload should be obtained. Upper lungs are clear. Lung bases are suboptimally assessed. There is patchy left lateral basilar opacity and blunting of CP angle which may represent atelectasis versus pneumonia and probable small left pleural effusion with some interval improvement since most recent exam. Pleural spaces: No pleural effusion. No pneumothorax. Heart/Mediastinum: As above. Bones/joints: No acute osseous findings. Other findings: Single view was submitted. XR/XR chest 1V portable [id number] IMPRESSION: 1. Accentuated cardiac silhouette size and vascularity with some improvement. See discussion above. 2. No obvious new/acute consolidation. Slight improvement of left lateral basilar patchy opacity and blunting of CP angle. Suboptimal lung base assessment. Followup including lateral view may be obtained if clinically indicated.
[2023-08-02 17:44] LABS: Basophils % 0.5 %; Eosinophils # 0.1 10^3/uL (0.0-0.8); Eosinophils % 1.3 %; Hematocrit 22.9 % (37-53); Lymphocytes # 0.5 10^3/uL (0.8-4.8); Lymphocytes % 5.8 %; Mean Corpuscular HGB Conc 30.6 g/dL (30-55); Mean Corpuscular Hemoglobin 29.5 pg (27-33); Mean Corpuscular Volume 96.6 fl (82-101); Mean Platelet Volume 10.6 fL (7.4-10.4); Monocytes # 0.4 10^3/uL (0.2-0.9); Monocytes % 4.5 %; Neutrophils # 7.21 10^3/uL (1.8-7.7); Neutrophils % 87.5 %; Nucleated Red Blood Cells % 0 %; Platelet Count 287 10^3/cmm (157-399); Red Blood Count 2.37 10^6/uL (3.85-5.65); Red Cell Distribution Width 17.6 % (12.1-15.1); White Blood Count 8.24 10^3/uL (3.29-11.43)
--- NOTE | 2023-08-02 17:56 | CTR_ITS ---
PROCEDURE INFORMATION: Exam: CT Abdomen And Pelvis Without Contrast Exam date and time: 08/02/2023 6:27 PM Age: 62 years old Clinical indication: Fever and other: Hematuria; Patient HX: EMS arrival from assisted for fever and hematuria. End stage renal disease. TECHNIQUE: Imaging protocol: Computed tomography of the abdomen and pelvis without contrast. Radiation optimization: All CT scans at this facility use at least one of these dose optimization techniques: automated exposure control; mA and/or kV adjustment per patient size (includes targeted exams where dose is matched to clinical indication); or iterative reconstruction. COMPARISON: CT abdomen pelvis wo con [id number] 05/13/2023 10:47 PM RADIATION DOSE METRICS: Total DLP (mGy-cm): 1577 FINDINGS: Lungs: Mild peribronchial thickening with pleuroparenchymal thickening in the posterolateral basilar region on the left similar to prior exam. Clinical correlation for chronic aspiration pneumonia should be considered. Heart: Normal heart size with coronary calcification. Liver: Normal. No mass. Gallbladder and bile ducts: Cholelithiasis with no obvious CT signs of acute cholecystitis or bile duct dilatation. Pancreas: Normal. No ductal dilation. Spleen: Mild splenomegaly with calcified splenic granulomas, unchanged. Adrenal glands: Normal. No mass. Kidneys and ureters: Kidneys are normal in size and contour with no hydronephrosis or obstructing calculi. Small mass lesion would be difficult to exclude due to artifacts and lack of IV contrast. Stomach and bowel: Moderate amount of fecal retention. No obvious bowel dilatation, pneumatosis or suspicious bowel wall thickening however assessment is limited due to lack of contrast. Colonic diverticulosis. Appendix: No evidence of appendicitis. Intraperitoneal space: Unremarkable. No free air. No significant fluid collection. Vasculature: No abdominal aortic aneurysm. Lymph nodes: No enlarged lymph nodes. Urinary bladder: Bladder is suboptimally assessed due to incomplete distension. Reproductive: Unremarkable as visualized. Bones/joints: Moderate-severe compression deformity of L3 and L4 and mild L1 compression deformity with interval worsening. No significant retropulsed element or subluxation. Soft tissues: Exam is limited due to streak artifacts arising from patient's arm(s). Motion artifacts are also noted. CT/CT kidney stone [id number] IMPRESSION: 1. Limited exam due to lack of contrast and artifacts with comparison CT 05/13/2023. 2. Slight interval worsening of multilevel vertebral compression deformities. No significant subluxation or retropulsed element. 3. No hydronephrosis or obstructing calculi. Otherwise somewhat limited urinary tract/bladder assessment. Follow-up exam with IV contrast and cystoscopy may be helpful if hematuria persists. 4. Cholelithiasis and other nonacute findings in the lower thorax and abdomen as described above. Coronary calcification.
--- NOTE | 2023-08-02 17:58 | ED_ITS ---
HPI - Fever 2 General: Chief Complaint: Fever Stated Complaint: FEVER; HEMATURIA Time Seen by Provider: 08/02/23 17:50 Source: patient and EMS Mode of arrival: EMS Limitations: no limitations History of Present Illness: 62-year-old male is here from [facility] patient has end-stage renal disease he receives dialysis Friday states he did have dialysis today. States he is just not felt well today states that he had some low-grade fevers and he is also had a slight amount of blood in his urine he states he makes very little urine and had a small amount. Patient was sent here from assisted for that. He has a history of anemia as well. Associated symptoms: Deny abdominal pain, chills, chest pain, diarrhea, dysuria, headache(s), nausea or vomiting Review of Systems 2 Const: Reports: fever(s) and fatigue; Denies: chills, body aches or change in appetite Eyes: Denies: eye discomfort ENMT: Denies: throat pain or dental pain Card: Denies: chest pain Resp: Denies: dyspnea GI: Denies: abdominal pain, nausea, vomiting or diarrhea : Reports: hematuria; Denies: dysuria Musc: Denies: neck pain or back pain Skin/Breast: Denies: rash Neuro: Denies: headache(s) PFSH ED 2 PFSH: Medical History Pressure ulcer of left leg, stage 2 Pressure ulcer of right leg, stage 2 Wound of left foot Excoriation of groin Excoriation of abdomen Wound of left lower extremity Pressure ulcer of left buttock, stage 2 Pressure ulcer of right buttock, stage 2 Wound of right lower extremity ESRD (end stage renal disease) on dialysis Lymphedema Stasis dermatitis Pressure sore on buttocks Inability to perform activities of daily living Kidney dysfunction Fluid overload Cellulitis Hemodialysis status Temporary dialysis catheter placement Acute kidney failure Bradycardia Afib Anasarca Bilateral lower leg cellulitis Metabolic acidosis Hyponatremia Hyperkalemia DKA (diabetic ketoacidosis) Falls Generalized weakness FRANCISCO (acute kidney injury) CHF (congestive heart failure) DM2 (diabetes mellitus, type 2) Chronic respiratory failure with hypoxia COPD (chronic obstructive pulmonary disease) Social History Smoking and tobacco/nicotine status: former use of tobacco/nicotine Physical Exam 2 Const: COMMON NORMALS: no acute distress, patient oriented x3 and healthy appearing HENMT: COMMON NORMALS: normocephalic and atraumatic HEAD & SCALP: n ormocephalic and atraumatic Eye: COMMON NORMALS: Equal, round and reactive pupils present and EOMs intact bilaterally PUPIL: Yes Equal, round and reactive pupils present Neck/C-Spine: COMMON NORMALS: full ROM and supple Chest: COMMONS NORMALS: normal inspection of the chest and normal palpation of entire chest wall Resp: COMMON NORMALS: normal respiratory effort, No retractions, No use of accessory muscles and clear to auscultation bilaterally AUSCULTATION: clear to auscultation bilaterally Cardio: COMMON NORMALS: regular rate, regular rhythm and No murmurs present (Cardio) RATE: regular rate RHYTHM: regular rhythm GI: COMMON NORMALS: Normal to inspection, nondistended, normoactive bowel sounds present, Soft to palpation, non-tender and no masses PALPATION: Yes Soft to palpation Extremity: COMMON NORMALS: normal to inspection and full ROM Neuro: COMMON NORMALS: patient oriented x3, moves all extremities and no focal motor deficits Psych: COMMON NORMALS: mental status grossly normal, Normal thought process present and cooperative THOUGHT PROCESS: Normal thought process present Skin: COMMON NORMALS: no rashes or lesions noted and no wounds GENERAL SKIN EXAM: no rashes or lesions noted Course 2 Vital Signs: Vital signs: Vital Signs Temperature 97.6 F 08/02/23 20:03 Pulse Rate 90 08/02/23 20:03 Respiratory Rate 18 08/02/23 20:03 Blood Pressure 119/59 08/02/23 20:03 Pulse Oximetry 96 08/02/23 20:03 Oxygen Delivery Me thod Room Air 08/02/23 17:34 MDM - Fever Medical Decision Making Patient presents here with hematuria he does have acute cystitis this could be causing his hematuria no mass seen on CT scan he is anemic he has chronic anemia we will transfuse him 1 unit did give him IV antibiotics he is stable for discharge back to assisted will prescribe Keflex he is to follow-up with urology. Medical Records I reviewed the patient's medical records. Lab Data I reviewed the patient's lab results. 08/02/23 17:35 08/02/23 18:45 Radiology Impressions Chest X-Ray 08/02/23 17:35 IMPRESSION: 1. Accentuated cardiac silhouette size and vascularity with some improvement. See discussion above. 2. No obvious new/acute consolidation. Slight improvement of left lateral basilar patchy opacity and blunting of CP angle. Suboptimal lung base assessment. Followup including lateral view may be obtained if clinically indicated. Abdomen/Pelvis CT 08/02/23 17:56 IMPRESSION: 1. Limited exam due to lack of contrast and artifacts with comparison CT 05/13/2023. 2. Slight interval worsening of multilevel vertebral compression deformities. No significant subluxation or retropulsed element. 3. No hydronephrosis or obstructing calculi. Otherwise somewhat limited urinary tract/bladder assessment. Follow-up exam with IV contrast and cystoscopy may be helpful if hematuria persists. 4. Cholelithiasis and other nonacute findings in the lower thorax and abdomen as described above. Coronary calcification. Laboratory Results WBC 8.24 10^3/uL (3.29-11.43) 08/02/23 17:35 RBC 2.37 10^6/uL (3.85-5.65) L 08/02/23 17:35 Hgb 7.00 g/dL (11.27-16.99) L 08/02/23 17:35 Hct 22.9 % (37-53) L 08/02/23 17:35 MCV 96.6 fl (82-101) 08/02/23 17:35 MCH 29.5 pg (27-33) 08/02/23 17:35 MCHC 30.6 g/dL (30-55) 08/02/23 17:35 RDW 17.6 % (12.1-15.1) H 08/02/23 17:35 Plt Count 287 10^3/cmm (157-399) 08/02/23 17:35 MPV 10.6 fL (7.4-10.4) H 08/02/23 17:35 Neut % (Auto) 87.5 % 08/02/23 17:35 Lymph % (Auto) 5.8 % 08/02/23 17:35 [place] % (Auto) 4.5 % 08/02/23 17:35 Eos % (Auto) 1.3 % 08/02/23 17:35 Baso % (Auto) 0.5 % 08/02/23 17:35 Neut # (Auto) 7.21 10^3/uL (1.8-7.7) 08/02/23 17:35 Lymph # (Auto) 0.5 10^3/uL (0.8-4.8) L 08/02/23 17:35 [place] # (Auto) 0.4 10^3/uL (0.2-0.9) 08/02/23 17:35 Eos # (Auto) 0.1 10^3/uL (0.0-0.8) 08/02/23 17:35 Baso # (Auto) 0.0 10^3/uL (0.0-0.1) 08/02/23 17:35 Nucleated RBC % (auto) 0 % 08/02/23 17:35 Nucleated RBCs # 0.0 /100WBC 08/02/23 17:35 Sodium 131 mmol/L (136-145) L 08/02/23 18:45 Potassium 4.0 mmol/L (3.5-5.1) 08/02/23 18:45 Chloride 92 mmol/L (98-107) L 08/02/23 18:45 Carbon Dioxide 29 mmol/L (22-29) 08/02/23 18:45 Anion Gap 14.0 (5-19) 08/02/23 18:45 BUN 7 mg/dL (8-23) L 08/02/23 18:45 Creatinine 1.7 mg/dL (0.7-1.2) H 08/02/23 18:45 GFR Calculation 41.3 mL/min (90-130) L 08/02/23 18:45 Glucose 166 mg/dL (65-115) H 08/02/23 18:45 Calculated Osmolality 274 mOsm/kg (285-295) L 08/02/23 18:45 Calcium 8.9 mg/dL (8.5-10.5) 08/02/23 18:45 Total Bilirubin 0.9 mg/dL (0.15-1.2) 08/02/23 18:45 AST 14 U/L (0-40) 08/02/23 18:45 ALT 8 U/L (0-41) 08/02/23 18:45 Alkaline Phosphatase 176 U/L (40-130) H 08/02/23 18:45 Total Protein 7.3 g/dL (6.6-8.7) 08/02/23 18:45 Albumin 3.4 g/dL (3.5-5.2) L 08/02/23 18:45 Globulin 3.9 g/dL (1.3-4.6) 08/02/23 18:45 Urine Color Red (Yellow) A 08/02/23 17:35 Urine Appearance Cloudy (CLEAR) A 08/02/23 17:35 Urine pH 6 (5-7) 08/02/23 17:35 Ur Specific [place] 1.010 (1.005-1.030) 08/02/23 17:35 Urine Protein 3+ (Negative) H 08/02/23 17:35 Urine Glucose (UA) Norm (Normal) 08/02/23 17:35 Urine Ketones 1+ (Negative) H 08/02/23 17:35 Urine Blood 3+ (Negative) H 08/02/23 17:35 Urine Nitrate Positive (Negative) H 08/02/23 17:35 Urine Bilirubin 1+ (Negative) H 08/02/23 17:35 Urine Urobilinogen 1 mg/dL (Negative) H 08/02/23 17:35 Ur Leukocyte Esterase 2+ (Negative) H 08/02/23 17:35 Urine RBC 80-100 /hpf (0-2) H 08/02/23 17:35 Urine WBC 55-80 /hpf (0-5) H 08/02/23 17:35 Ur Squamous Epith Cells 0-4 /hpf (0-5) H 08/02/23 17:35 Amorphous Sediment 2+ /hpf 08/02/23 17:35 Urine Bacteria 2+ /hpf (NONE) H 08/02/23 17:35 Influenza Type A Ag negative (Negative) 08/02/23 18:23 Influenza Type B Ag negative (Negative) 08/02/23 18:23 SARS-CoV-2 Ag (Rapid) negative (Negative) 08/02/23 18:23 Blood Type A Positive 08/02/23 18:23 Rho(D) Type Rh positive 08/02/23 18:23 Antibody Screen Negative 08/02/23 18:23 Crossmatch See Detail 08/02/23 18:23 All radiology interpretation(s) finalized by discharge Discharge Plan Discharge Patient Disposition: Home Clinical Impression: Acute cystitis with hematuria, Anemia Condition: Stable Prescriptions: New cephalexin 500 mg capsule 500 mg PO TID 7 Days Qty: 21 0RF No Action folic acid 1 mg Tablet 1 mg PO BID Qty: 60 0RF calcium acetate [Calphron] 667 mg Tablet 1,334 mg PO TIDWM Qty: 90 0RF insulin aspart U-100 [Novolog FlexPen U-100 Insulin] 100 unit/mL (3 mL) insulin pen See Rx Instructions .ROUTE .COMPLEX Qty: 15 0RF Rx Instructions: INJECT SUBCUTANEOUSLY PER SLIDING SCALE TID Levemir FlexPen 100 unit/mL (3 mL) insulin pen 8 unit SUBCUT DAILY Qty: 15 0RF gabapentin 100 mg capsule 100 mg PO BID Qty: 60 0RF albuterol sulfate 2.5 mg /3 mL (0.083 %) solution for nebulization 2.5 mg inhalation Q4H PRN (Reason: Shortness Of Breath) amiodarone 200 mg tablet 200 mg PO QAM silver sulfadiazine [SSD] 1 % cream 1 applic TOPICAL DAILY Eliquis 5 mg tablet 5 mg PO QPM epinephrine 0.3 mg/0.3 mL auto-injector 0.3 mg IM Q10M PRN (Reason: anaphylaxis) Qty: 2 0RF Rx Instructions: for 2 doses Stool Softener-Laxative 8.6-50 mg tablet 1 tab PO DAILY PRN (Reason: Constipation) amlodipine 10 mg tablet 10 mg PO QAM metoprolol tartrate 50 mg tablet 50 mg PO BID Discharge Orders: Discharge ED (Routine); Ordered 08/02/23 Ordered By: Brinda Burgos Referrals: Misty Ibrahim [Primary Care Provider] - 4-7 days Discharge Diet: Advance as tolerated Discharge Activity: Resume usual activity Patient Instructions: Urinary Tract Infection in Men (ED), Anemia (ED) Coding Level of Care Code ED Civil Transportation Engineer for Courtney Doran
[2023-08-02] MEDS: sodium chloride 0.9% 500 ML IV (18:23)
[2023-08-02 18:30] LABS: Add Urine Microscopic? YES; Bilirubin Urine 1+ (Negative); Blood Urine 3+ (Negative); Glucose Urine UA Norm (Normal); Ketones Urine 1+ (Negative); Leukocyte Esterase Urine 2+ (Negative); Nitrate Urine Positive (Negative); Protein Urine 3+ (Negative); Urine Appearance Cloudy (CLEAR); Urine Color Red (Yellow); Urobilinogen Urine 1 mg/dL (Negative); pH Urine 6 (5-7)
[2023-08-02 18:31] LABS: Add Urine Culture? Yes; Amorphous Sediment Urine 2+ /hpf; Bacteria Urine 2+ /hpf; RBC Urine 80-100 /hpf (0-2); Squamous Epithelial Cell Urine 0-4 /hpf (0-5); WBC Urine 55-80 /hpf (0-5)
[2023-08-02 18:56] LABS: SARS Covid-2 Antigen negative (Negative)
[2023-08-02 18:57] LABS: Influenza A by IFA negative (Negative); Influenza B by IFA negative (Negative)
[2023-08-02] MEDS: cefTRIAXone 1,000 MG in sodium chloride 0.9% (plus) 50 ML 100 MG IV (18:59)
[2023-08-02 19:46] LABS: Alanine Aminotransferase 8 U/L (0-41); Albumin Level 3.4 g/dL (3.5-5.2); Alkaline Phosphatase 176 U/L (40-130); Aspartate Amino Transferase 14 U/L (0-40); Blood Urea Nitrogen 7 mg/dL (8-23); Calcium 8.9 mg/dL (8.5-10.5); Carbon Dioxide 29 mmol/L (22-29); Chloride 92 mmol/L (98-107); Creatinine Clr Calc Pharmacy 66.0073; Globulin 3.9 g/dL (1.3-4.6); Glomerular Filtration Rate 41.3 mL/min (90-130); Glucose 166 mg/dL (65-115); Osmolality Calculated 274 mOsm/kg (285-295); Sodium 131 mmol/L (136-145); Total Bilirubin 0.9 mg/dL (0.15-1.2); Total Protein 7.3 g/dL (6.6-8.7)
[2023-08-02 19:54] VITALS: BP 112/59; PULSE 99; RESP 18; TEMP 36.7; O2SAT 93
[2023-08-02 19:56] VITALS: BP 125/52; PULSE 90; RESP 18; TEMP 36.6
[2023-08-02] MEDS: sodium chloride 0.9% 100 mL Bag 50 ML IV (20:00)
[2023-08-02 20:03] VITALS: BP 119/59; PULSE 90; RESP 18; TEMP 36.4; O2SAT 96
[2023-08-02 20:09] VITALS: BP 113/57; PULSE 85; RESP 18; O2SAT 95
[2023-08-02 20:24] VITALS: BP 117/55; PULSE 85; RESP 18; O2SAT 95
--- NOTE | 2023-08-04 12:13 | PC.SOCIAL ---
Urology Appt Called and spoke with Merari at [facility] about urology appt. She states that they will call and get patient an appt so that they can work around their transportation schedule.
--- NOTE | 2023-08-06 19:07 | PC.NURSE ---
positive blood culture results called to nurse at [facility].
== END 2023-08-02 21:15 | disposition home or self-care (01) ==
PROVIDERS: Emergency Medicine; Emergency Provider Emergency Medicine; PCP Registered Nurse
DX: N30.01 Acute cystitis with hematuria (principal); D64.9 Anemia, unspecified; Z79.01 Long term (current) use of anticoagulants; Z79.4 Long term (current) use of insulin; Z87.891 Personal history of nicotine dependence; E11.22 Type 2 diabetes mellitus with diabetic chronic kidney disease; N18.6 End stage renal disease; Z99.2 Dependence on renal dialysis; J44.9 Chronic obstructive pulmonary disease, unspecified; I50.9 Heart failure, unspecified
CPT/HCPCS: 36415; 36430; 71045; 74176; 80053; 81001; 85025; 86850; 86900; 86920; 87040; 87077; 87086; 87150; 87186; 87205; 87426; 87804; 96365; 99285; J0696; J7040; P9040

== ENCOUNTER 2023-08-08 11:43 | Emergency (ER) | payer MEDICAID, SELFPAY ==
[2023-08-08 11:44] VITALS: BP 110/65; PULSE 76; RESP 16; TEMP 36.6; O2SAT 97
[2023-08-08 12:03] LABS: Basophils % 0.5 %; Eosinophils # 0.1 10^3/uL (0.0-0.8); Eosinophils % 0.7 %; Hematocrit 27.1 % (37-53); Lymphocytes # 0.4 10^3/uL (0.8-4.8); Lymphocytes % 5.2 %; Mean Corpuscular HGB Conc 30.6 g/dL (30-55); Mean Corpuscular Hemoglobin 28.9 pg (27-33); Mean Corpuscular Volume 94.4 fl (82-101); Mean Platelet Volume 9.4 fL (7.4-10.4); Monocytes # 0.4 10^3/uL (0.2-0.9); Monocytes % 5.2 %; Neutrophils # 6.65 10^3/uL (1.8-7.7); Neutrophils % 88.1 %; Nucleated Red Blood Cells % 0 %; Platelet Count 273 10^3/cmm (157-399); Red Blood Count 2.87 10^6/uL (3.85-5.65); Red Cell Distribution Width 18.1 % (12.1-15.1); White Blood Count 7.54 10^3/uL (3.29-11.43)
--- NOTE | 2023-08-08 12:21 | W.ED.GENADLT ---
HPI - General Adult General: Chief complaint: General Medical Stated complaint: blood transfusion Time Seen by Provider: 08/08/23 11:45 Source: patient Mode of arrival: wheelchair Limitations: no limitations History of Present Illness: Patient is a 62-year-old male with an extensive past medical history here after he was told by his dialysis clinic that he needed a blood transfusion. Patient receives dialysis on Tuesdays, , and Saturdays. He states during his dialysis treatment yesterday he was told his hemoglobin was 6.5 and they recommended coming to the emergency department then for a blood transfusion. Patient states he went home to rest and did not feel like coming in yesterday so decided to come in today. Patient upon arrival today is completely asymptomatic. Looking at previous documentation he does have chronic anemia. Patient denies any recent bloody emesis or black/tarry stools. Relieving factors: none Exacerbating factors: none Associated symptoms: Reports no associated symptoms; Deny chest pain, dyspnea or headache(s) Treatments prior to arrival: none Review of Systems Const: Reports: fatigue (chronic-at baseline); Denies: fever(s), chills or body aches Eyes: Denies: change in vision Card: Denies: chest pain Resp: Denies: dyspnea GI: Denies: abdominal pain Neuro: Denies: headache(s) or dizziness PFSH ED PFSH: Medical History Pressure ulcer of left leg, stage 2 Pressure ulcer of right leg, stage 2 Wound of left foot Excoriation of groin Excoriation of abdomen Wound of left lower extremity Pressure ulcer of left buttock, stage 2 Pressure ulcer of right buttock, stage 2 Wound of right lower extremity ESRD (end stage renal disease) on dialysis Lymphedema Stasis dermatitis Pressure sore on buttocks Inability to perform activities of daily living Kidney dysfunction Fluid overload Cellulitis Hemodialysis status Temporary dialysis catheter placement Acute kidney failure Bradycardia Afib Anasarca Bilateral lower leg cellulitis Metabolic acidosis Hyponatremia Hyperkalemia DKA (diabetic ketoacidosis) Falls Generalized weakness FRANCISCO (acute kidney injury) CHF (congestive heart failure) DM2 (diabetes mellitus, type 2) Chronic respiratory failure with hypoxia COPD (chronic obstructive pulmonary disease) Social History Smoking and tobacco/nicotine status: former use of tobacco/nicotine Physical Exam Const: COMMON NORMALS: no acute distress, patient oriented x3, no limitations and alert GENERAL APPEARANCE: cooperative and other (chronically ill appearing) ORIENTATION/CONSCIOUSNESS: Yes awake, Yes oriented to person, Yes oriented to place and Yes oriented to time Resp: COMMON NORMALS: normal respiratory effort and clear to auscultation bilaterally AUSCULTATION: clear to auscultation bilaterally Cardio: COMMON NORMALS: regular rate and regular rhythm RATE: regular rate RHYTHM: regular rhythm Neuro: [place] COMA SCALE: document GCS findings [place] coma scale eye opening: Spontaneous [place] coma scale verbal response: Orientated [place] coma scale motor response: [place] commands [place] coma scale total score: 15 COMMON NORMALS: patient oriented x3 SENSORIUM/ORIENTATION: Yes alert, Yes oriented to person, Yes oriented to place and Yes oriented to time Course Vital Signs: Vital signs: Vital Signs Temperature 97.8 F 08/08/23 11:44 Pulse Rate 76 08/08/23 11:44 Respiratory Rate 16 08/08/23 11:44 Blood Pressure 110/65 08/08/23 11:44 Pulse Oximetry 97 08/08/23 11:44 Oxygen Delivery Me thod Room Air 08/08/23 11:44 MDM - General Adult Medical Decision Making Patient's hemoglobin today is 8.3. This is pretty close to his average baseline over the past year or so. He has no evidence for any active/ongoing bleeding. There is no indication for emergent blood transfusion at this time. Recommend he continue to follow-up with primary care. Plan for dialysis tomorrow. Medical Records I reviewed the patient's medical records. Lab Data I reviewed the patient's lab results. 08/08/23 11:55 Laboratory Results WBC 7.54 10^3/uL (3.29-11.43) 08/08/23 11:55 RBC 2.87 10^6/uL (3.85-5.65) L 08/08/23 11:55 Hgb 8.30 g/dL (11.27-16.99) L 08/08/23 11:55 Hct 27.1 % (37-53) L 08/08/23 11:55 MCV 94.4 fl (82-101) 08/08/23 11:55 MCH 28.9 pg (27-33) 08/08/23 11:55 MCHC 30.6 g/dL (30-55) 08/08/23 11:55 RDW 18.1 % (12.1-15.1) H 08/08/23 11:55 Plt Count 273 10^3/cmm (157-399) 08/08/23 11:55 MPV 9.4 fL (7.4-10.4) 08/08/23 11:55 Neut % (Auto) 88.1 % 08/08/23 11:55 Lymph % (Auto) 5.2 % 08/08/23 11:55 [place] % (Auto) 5.2 % 08/08/23 11:55 Eos % (Auto) 0.7 % 08/08/23 11:55 Baso % (Auto) 0.5 % 08/08/23 11:55 Neut # (Auto) 6.65 10^3/uL (1.8-7.7) 08/08/23 11:55 Lymph # (Auto) 0.4 10^3/uL (0.8-4.8) L 08/08/23 11:55 [place] # (Auto) 0.4 10^3/uL (0.2-0.9) 08/08/23 11:55 Eos # (Auto) 0.1 10^3/uL (0.0-0.8) 08/08/23 11:55 Baso # (Auto) 0.0 10^3/uL (0.0-0.1) 08/08/23 11:55 Nucleated RBC % (auto) 0 % 08/08/23 11:55 Nucleated RBCs # 0.0 /100WBC 08/08/23 11:55 No radiology studies performed this visit Discharge Plan Discharge Patient Disposition: Home Clinical Impression: Chronic anemia Condition: Stable Prescriptions: No Action folic acid 1 mg Tablet 1 mg PO BID Qty: 60 0RF calcium acetate [Calphron] 667 mg Tablet 1,334 mg PO TIDWM Qty: 90 0RF insulin aspart U-100 [Novolog FlexPen U-100 Insulin] 100 unit/mL (3 mL) insulin pen See Rx Instructions .ROUTE .COMPLEX Qty: 15 0RF Rx Instructions: INJECT SUBCUTANEOUSLY PER SLIDING SCALE TID Levemir FlexPen 100 unit/mL (3 mL) insulin pen 8 unit SUBCUT DAILY Qty: 15 0RF gabapentin 100 mg capsule 100 mg PO BID Qty: 60 0RF cephalexin 500 mg capsule 500 mg PO TID 7 Days Qty: 21 0RF albuterol sulfate 2.5 mg /3 mL (0.083 %) solution for nebulization 2.5 mg inhalation Q4H PRN (Reason: Shortness Of Breath) amiodarone 200 mg tablet 200 mg PO QAM silver sulfadiazine [SSD] 1 % cream 1 applic TOPICAL DAILY Eliquis 5 mg tablet 5 mg PO QPM epinephrine 0.3 mg/0.3 mL auto-injector 0.3 mg IM Q10M PRN (Reason: anaphylaxis) Qty: 2 0RF Rx Instructions: for 2 doses Stool Softener-Laxative 8.6-50 mg tablet 1 tab PO DAILY PRN (Reason: Constipation) amlodipine 10 mg tablet 10 mg PO QAM metoprolol tartrate 50 mg tablet 50 mg PO BID Discharge Orders: Discharge ED (Routine); Ordered 08/08/23 Ordered By: Saskia Nugent Referrals: Misty Ibrahim [Primary Care Provider] - Activity Restrictions/Additional Instructions: As we discussed your hemoglobin today is 8.3 which seems to be close to your baseline. There is no indication for an emergent blood transfusion on today's visit. Please continue to follow-up with your primary care provider and other specialists for your anemia. Coding Level of Care Code ED Viscose Cellar Charge Hand for Courtney Doran
[2023-08-08 12:41] VITALS: BP 110/65; PULSE 76; RESP 16; TEMP 36.6; O2SAT 97
== END 2023-08-08 12:42 | disposition home or self-care (01) ==
PROVIDERS: Emergency Medicine; Emergency Provider Physician Assistant; PCP Registered Nurse
DX: D64.89 Other specified anemias (principal); Z79.01 Long term (current) use of anticoagulants; Z79.4 Long term (current) use of insulin; Z87.891 Personal history of nicotine dependence; E11.22 Type 2 diabetes mellitus with diabetic chronic kidney disease; N18.6 End stage renal disease; Z99.2 Dependence on renal dialysis; I50.9 Heart failure, unspecified; J44.9 Chronic obstructive pulmonary disease, unspecified
CPT/HCPCS: 36415; 85025; 99283

== ENCOUNTER 2023-08-12 08:53 | Inpatient (IN) | payer MEDICAID, SELFPAY ==
[2023-08-12] VITALS (53 sets, daily range): BP systolic 74–141; BP diastolic 42–105; PULSE 70–91; RESP 6–29; TEMP 36.7–37.4; O2SAT 90–100; BMI 37.3
--- NOTE | 2023-08-12 09:04 | XRR_ITS ---
PROCEDURE INFORMATION: Exam: XR Chest Exam date and time: 08/12/2023 9:11 AM Age: 62 years old Clinical indication: Cough and dyspnea; Additional info: Dyspnea/cough TECHNIQUE: Imaging protocol: Radiologic exam of the chest. Views: 1 view. COMPARISON: CR (CHEST, ) 08/02/2023 5:44 PM FINDINGS: Tubes, catheters and devices: Right IJ central vascular catheter projects at the cavoatrial junction similar to previous. Lungs: Increased bilateral pulmonary opacity which appears to reflect pulmonary vascular congestion. Increased density towards the lung bases favored to represent superimposed edema although atelectasis, aspiration or pneumonia could also be considered. Pleural spaces: There is persistent left-sided pleural thickening, no large pleural effusion evident. Heart/Mediastinum: Cardiac silhouette appears mildly enlarged, although may be accentuated by rotation. Bones/joints: No acute osseous abnormality identified. XR/XR chest 1V portable [id number] IMPRESSION: Findings most consistent with pulmonary vascular congestion and interstitial edema. Superimposed airspace process can not be excluded.
--- NOTE | 2023-08-12 09:04 | ECG_ITS ---
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 Measurements Intervals [place] Rate: 87 P: 72 [place]: 183 QRS: 71 QRSD: 110 T: 66 QT: 393 QTc: 473 Interpretive Statements SINUS RHYTHM Compared to ECG 05/13/2023 19:22:02 Atrial fibrillation no longer present Right bundle-branch block no longer present ST (T wave) deviation no longer present Prolonged QT interval no longer present Electronically Signed On 08-12-2023 21:31:31 CDT by Mike Hilton M.D. [email or web address]
[2023-08-12 09:14] LABS: Basophils % 0.3 %; Eosinophils # 0.1 10^3/uL (0.0-0.8); Eosinophils % 0.8 %; Hematocrit 23.2 % (37-53); Lymphocytes # 0.4 10^3/uL (0.8-4.8); Lymphocytes % 6.1 %; Mean Corpuscular HGB Conc 31.5 g/dL (30-55); Mean Corpuscular Hemoglobin 29.4 pg (27-33); Mean Corpuscular Volume 93.5 fl (82-101); Mean Platelet Volume 10.9 fL (7.4-10.4); Monocytes # 0.4 10^3/uL (0.2-0.9); Monocytes % 5.9 %; Neutrophils # 5.72 10^3/uL (1.8-7.7); Neutrophils % 86.6 %; Nucleated Red Blood Cells % 0 %; Platelet Count 187 10^3/cmm (157-399); Red Blood Count 2.48 10^6/uL (3.85-5.65); Red Cell Distribution Width 18.1 % (12.1-15.1)
[2023-08-12 09:21] LABS: ABG PCO2 43.6 mmHg (35-45); ABG PH Result 7.43 (7.35-7.45); Alveolar-Arterial Oxygen Gradi 3.4 mmHg (5-10); Arterial Blood Gas Hematocrit 21.1 % (42-52); Base Excess ABG 4.4 mmol/L (-2.0-2.0); Blood Gas Allen Test Pos; Blood Gas Operator Identificat WALCI; Blood Gas Sample Site Radial, right; Blood Gas Sample Type Arterial; HCO3 ABG 29.1 mmol/L (22-26); HGB O2 Sat 92.1 % (95-100); Ionized Calcium Level - ABG 1.1 mmol/L (1.1-1.4); Methemoglobin 1.2 % (0.4-1.5); Oxygen Device NC; Oxygen Saturation ABG 96.1; PO2 ABG 70.4 mmHg (80.0-100.0); Potassium Level - ABG 3.8 mmol/L (3.5-5.0); Total Hemoglobin 6.9 g/dL (14-18)
--- NOTE | 2023-08-12 09:25 | W.ED.AMS ---
HPI - Altered Mental Status General: Chief Complaint: ER Hold Stated Complaint: AMS Time Seen by Provider: 08/12/23 08:57 Source: patient Mode of arrival: EMS History of Present Illness: 62-year-old male presents emergency room with complaints of altered mental status. Patient has a history of diabetes mellitus end-stage renal disease is currently on dialysis he also has a history of atrial fibrillation he is on anticoagulation. He does not believe he took any of his medicines this morning. He is due for dialysis today he usually gets it on Tuesdays and Friday. He did have dialysis yesterday according to the nurses notes but he did not confirm this for me. He does have open sores on his legs that are being treated by wound care he does not believe he is currently on any antibiotics.. Patient is not really able to relate any specific complaints to me he is aware that he is on dialysis but is not sure when it started they have not looked at getting a fistula placed evidently he is still using a tunneled dialysis catheter in the right subclavian area. intermediate reported a temp of up to 102. He was recently treated for UTI does still make a small amount of urine. complaint: altered mental status [facility] ED PFSH: Medical History (Updated 08/12/23 @ 14:05 by Dean Shaw DO) ESRD (end stage renal disease) on dialysis Hyponatremia DM2 (diabetes mellitus, type 2) Pressure ulcer of left leg, stage 2 Pressure ulcer of right leg, stage 2 Wound of left foot Excoriation of groin Excoriation of abdomen Wound of left lower extremity Pressure ulcer of left buttock, stage 2 Pressure ulcer of right buttock, stage 2 Wound of right lower extremity Lymphedema Stasis dermatitis Pressure sore on buttocks Inability to perform activities of daily living Kidney dysfunction Fluid overload Cellulitis Hemodialysis status Temporary dialysis catheter placement Acute kidney failure Bradycardia Afib Anasarca Bilateral lower leg cellulitis Metabolic acidosis Hyperkalemia DKA (diabetic ketoacidosis) Falls Generalized weakness FRANCISCO (acute kidney injury) CHF (congestive heart failure) Chronic respiratory failure with hypoxia COPD (chronic obstructive pulmonary disease) Social History Smoking and tobacco/nicotine status: former use of tobacco/nicotine Procedures Central Line Placement Left IJ: Patient Placed on Monitor/Pulse Ox: Yes Prep: mask, gown and gloves Local Anesthetic: lidocaine 1% Amount of anesthesia used (mL): 5 Ultrasound Used for Placement: Yes Central Line Lumen Inserted: triple Post Procedure: sutured in place, all ports aspirated, flushed, capped and sterile dressing applied Post Procedure X-Ray: tip of catheter in good position and no pneumothorax seen Patient Tolerated Procedure: well Complications: other (Guidewire malfunction) Additional Comments: Likely left IJ because the tunneled dialysis catheter is on the right. In doing the procedure and no difficulty accessing the vein but had difficulty with a wire advance the wire met some resistance thought to be due to the tunneled dialysis catheter access of the needle was lost and we had to reaccess under ultrasound guidance again. On the second attempt we accessed the right IJ without difficulty. The wire was advanced with no significant resistance. Was able to dilate and advanced the catheter could not withdraw the wire met resistance. Course Vital Signs: Vital signs: Vital Signs Temperature 97 F L 08/13/23 13:00 Pulse Rate 77 08/13/23 14:20 Respiratory Rate 16 08/13/23 14:20 Blood Pressure 121/52 08/13/23 14:20 Pulse Oximetry 99 08/13/23 14:20 Oxygen Delivery Me thod Nasal Cannula 08/13/23 14:20 Oxygen Flow Rate 2 08/13/23 14:20 MDM - Altered Mental Status Medical Decision Making Patient was seen approximately 10 days ago had positive cultures. Called him last week [facility] evidently elected to observe. He has altered mental status today. What concerning is with his indwelling tunneled dialysis cath that will likely need to be removed. Central line was placed at Dr. Lundberg's request. He will consult surgery to replace the tunneled dialysis catheter. The nephrology group was consulted. Patient is due for dialysis today. He started on ertapenem and vancomycin. Medical Records I reviewed the patient's medical records. Lab Data I reviewed the patient's lab results. 08/13/23 08:00 08/13/23 08:00 Laboratory Results WBC 6.60 10^3/uL (3.29-11.43) 08/12/23 09:02 RBC 2.48 10^6/uL (3.85-5.65) L 08/12/23 09:02 Hgb 7.30 g/dL (11.27-16.99) L 08/12/23 09:02 Hct 23.2 % (37-53) L 08/12/23 09:02 MCV 93.5 fl (82-101) 08/12/23 09:02 MCH 29.4 pg (27-33) 08/12/23 09:02 MCHC 31.5 g/dL (30-55) 08/12/23 09:02 RDW 18.1 % (12.1-15.1) H 08/12/23 09:02 Plt Count 187 10^3/cmm (157-399) 08/12/23 09:02 MPV 10.9 fL (7.4-10.4) H 08/12/23 09:02 Neut % (Auto) 86.6 % 08/12/23 09:02 Lymph % (Auto) 6.1 % 08/12/23 09:02 [place] % (Auto) 5.9 % 08/12/23 09:02 Eos % (Auto) 0.8 % 08/12/23 09:02 Baso % (Auto) 0.3 % 08/12/23 09:02 Neut # (Auto) 5.72 10^3/uL (1.8-7.7) 08/12/23 09:02 Lymph # (Auto) 0.4 10^3/uL (0.8-4.8) L 08/12/23 09:02 [place] # (Auto) 0.4 10^3/uL (0.2-0.9) 08/12/23 09:02 Eos # (Auto) 0.1 10^3/uL (0.0-0.8) 08/12/23 09:02 Baso # (Auto) 0.0 10^3/uL (0.0-0.1) 08/12/23 09:02 Nucleated RBC % (auto) 0 % 08/12/23 09:02 Nucleated RBCs # 0.0 /100WBC 08/12/23 09:02 APTT 41.2 SECONDS (23.9-36.7) H 08/12/23 09:02 Specimen Type Arterial 08/12/23 09:10 Sample Site Radial, right 08/12/23 09:10 ABG pH 7.43 (7.35-7.45) 08/12/23 09:10 ABG pCO2 43.6 mmHg (35-45) 08/12/23 09:10 ABG pO2 70.4 mmHg (80.0-100.0) L 08/12/23 09:10 ABG HCO3 29.1 mmol/L (22-26) H 08/12/23 09:10 ABG O2 Saturation 96.1 08/12/23 09:10 ABG Base Excess 4.4 mmol/L (-2.0-2.0) H 08/12/23 09:10 Van Test Pos 08/12/23 09:10 A-a O2 Gradient 3.4 mmHg (5-10) L 08/12/23 09:10 Hematocrit 21.1 % (42-52) L 08/12/23 09:10 Hgb O2 Saturation 92.1 % (95-100) L 08/12/23 09:10 Carboxyhemoglobin 3.0 %THgb (0.4-20.1) 08/12/23 09:10 Methemoglobin 1.2 % (0.4-1.5) 08/12/23 09:10 Total Hemoglobin 6.9 g/dL (14-18) L 08/12/23 09:10 Sodium 133.0 mmol/L (131-143) 08/12/23 09:10 Potassium 3.8 mmol/L (3.5-5.0) 08/12/23 09:10 Glucose 124.0 mg/dL (70-115) H 08/12/23 09:10 Ionized Calcium 1.1 mmol/L (1.1-1.4) 08/12/23 09:10 O2 Delivery Device Nc 08/12/23 09:10 O2 Liters/Min 4.0 % 08/12/23 09:10 Android Ui Developer ID Walci 08/12/23 09:10 Sodium 130 mmol/L (136-145) L 08/12/23 09:02 Potassium 4.2 mmol/L (3.5-5.1) 08/12/23 09:02 Chloride 91 mmol/L (98-107) L 08/12/23 09:02 Carbon Dioxide 26 mmol/L (22-29) 08/12/23 09:02 Anion Gap 17.2 (5-19) 08/12/23 09:02 BUN 40 mg/dL (8-23) H 08/12/23 09:02 Creatinine 5.8 mg/dL (0.7-1.2) H* 08/12/23 09:02 GFR Calculation 10.0 mL/min (90-130) L 08/12/23 09:02 Glucose 130 mg/dL (65-115) H 08/12/23 09:02 Calculated Osmolality 282 mOsm/kg (285-295) L 08/12/23 09:02 Lactic Acid 1.2 mmol/L (0.5-2.2) 08/12/23 09:02 Calcium 8.4 mg/dL (8.5-10.5) L 08/12/23 09:02 Magnesium 1.9 mg/dL (1.7-2.3) 08/12/23 09:02 Total Bilirubin 0.5 mg/dL (0.15-1.2) 08/12/23 09:02 AST 22 U/L (0-40) 08/12/23 09:02 ALT 11 U/L (0-41) 08/12/23 09:02 Alkaline Phosphatase 117 U/L (40-130) 08/12/23 09:02 Creatine Kinase 314 U/L (39-308) H 08/12/23 09:02 Troponin T Baseline 240 ng/L (0-15) H* 08/12/23 09:02 Troponin T 120 Minute 232.4 ng/L (0-15) H 08/12/23 11:06 Delta Troponin T -7.6 ABS# (0-10) L 08/12/23 11:06 Total Protein 6.4 g/dL (6.6-8.7) L 08/12/23 09:02 Albumin 2.9 g/dL (3.5-5.2) L 08/12/23 09:02 Globulin 3.5 g/dL (1.3-4.6) 08/12/23 09:02 Lipase 7 U/L (13-60) L 08/12/23 09:02 Urine Color Dark yellow (Yellow) 08/12/23 09:53 Urine Appearance Cloudy (CLEAR) A 08/12/23 09:53 Urine pH 5 (5-7) 08/12/23 09:53 Ur Specific [place] 1.020 (1.005-1.030) 08/12/23 09:53 Urine Protein 3+ (Negative) H 08/12/23 09:53 Urine Glucose (UA) Norm (Normal) 08/12/23 09:53 Urine Ketones 1+ (Negative) H 08/12/23 09:53 Urine Blood 3+ (Negative) H 08/12/23 09:53 Urine Nitrate Negative (Negative) 08/12/23 09:53 Urine Bilirubin 1+ (Negative) H 08/12/23 09:53 Urine Urobilinogen 1 mg/dL (Negative) H 08/12/23 09:53 Ur Leukocyte Esterase 2+ (Negative) H 08/12/23 09:53 Urine RBC >100 /hpf (0-2) H 08/12/23 09:53 Urine WBC 80-100 /hpf (0-5) H 08/12/23 09:53 Ur Squamous Epith Cells 0-4 /hpf (0-5) H 08/12/23 09:53 Amorphous Sediment Trace /hpf 08/12/23 09:53 Urine Bacteria 2+ /hpf (NONE) H 08/12/23 09:53 Urine Yeast 1+ /hpf H 08/12/23 09:53 Serum Ketones Negative (Negative) 08/12/23 09:02 Coronavirus 229E (PCR) Not detected (NOT DETECT) 08/12/23 09:53 Hep Bs Antigen Reactive (Nonreactive) H 08/12/23 13:08 Hep Bs Antibody < 3.5 (11.5-1000) L 08/12/23 13:08 Hep B Core Total Ab Non-reactive (Nonreactive) 08/12/23 13:08 Influenza Type A Ag negative (Negative) 08/12/23 09:53 Influenza Type B Ag negative (Negative) 08/12/23 09:53 SARS-CoV-2 (PCR) Not detected (NOT DETECT) 08/12/23 09:53 Blood Type Cancelled 08/12/23 10:29 Rho(D) Type Cancelled 08/12/23 10:29 Antibody Screen Cancelled 08/12/23 10:29 Crossmatch See Detail 08/12/23 10:29 All radiology interpretation(s) finalized by discharge Critical Care Time Critical Care Time: Critical Care Time: Yes Total Critical Care Time: 45 Attestation: The high probability of a clinically significant, sudden or life threatening deterioration of the patient's cardiovascular respiratory system(s) required my full and direct attention, intervention and personal management. The critical care time is as shown. This time is in addition to time spent performing any reported procedures but includes the following: [x] Data and vital sign review and interpretation [x] Patient assessment, examination and intervention [x] Documentation [x] Medication orders and management Discharge Plan Discharge Patient Disposition: Admitted As Inpatient Admit Provider: Lenny Montalvo Clinical Impression: Urinary tract infection, Hyponatremia, Sepsis, DM2 (diabetes mellitus, type 2), Cellulitis and abscess of foot, ESRD (end stage renal disease) on dialysis, Anemia Condition: Stable Coding Level of Care Code ED Joint Cutter Machine for Courtney Doran
[2023-08-12 09:27] LABS: Ketone (Acetest) Serum Negative (Negative)
[2023-08-12 09:32] LABS: Alanine Aminotransferase 11 U/L (0-41); Albumin Level 2.9 g/dL (3.5-5.2); Alkaline Phosphatase 117 U/L (40-130); Aspartate Amino Transferase 22 U/L (0-40); Blood Urea Nitrogen 40 mg/dL (8-23); Calcium 8.4 mg/dL (8.5-10.5); Carbon Dioxide 26 mmol/L (22-29); Chloride 91 mmol/L (98-107); Creatine Phosphokinase 314 U/L (39-308); Globulin 3.5 g/dL (1.3-4.6); Glucose 130 mg/dL (65-115); Lipase 7 U/L (13-60); Magnesium 1.9 mg/dL (1.7-2.3); Osmolality Calculated 282 mOsm/kg (285-295); Sodium 130 mmol/L (136-145); Total Bilirubin 0.5 mg/dL (0.15-1.2); Total Protein 6.4 g/dL (6.6-8.7)
[2023-08-12 09:35] LABS: Lactic Sepsis W/Reflex 1.2 mmol/L (0.5-2.2)
[2023-08-12 09:39] LABS: Anion Gap 17.2 (5-19); Potassium 4.2 mmol/L (3.5-5.1); Troponin(5th) Baseline 240 ng/L (0-15)
--- NOTE | 2023-08-12 10:14 | PC.PHAR ---
[facility]
--- NOTE | 2023-08-12 10:35 | XR_ITS ---
WS: [id number] Right foot, 3 views, 08/12/2023 Clinical Data: diabetic foot ulcer Comparison: Right foot, 10/09/2017 Findings: The right first and second toes are absent. There is irregularity and deformity of the distal aspect of the right first metatarsal. There is osteoarthritic change at the right third toe MTP joint. No jamie ne destruction or erosion is seen. There is no abnormal soft tissue air. No evidence of osteomyelitis is seen. There are vascular calcifications. There are no fractures or dislocations. Impression: 1. Absent right first and second toes. 2. Irregularity of the distal right first metatarsal. 3. Negative for evidence of osteomyelitis.
--- NOTE | 2023-08-12 10:36 | CT_ITS ---
WS: [id number] CT HEAD TECHNIQUE: Noncontrast CT of the head obtained from the skullbase to the vertex. CLINICAL INFORMATION: AMS COMPARISON: CT 05/07/2023 DLP: 1127.[address] scans at [facility] use at least one of these dose optimization techniques: automated e xposure control; mA and/or kV adjustment per patient size (includes targeted exams where dose is matc hed to clinical indication); or iterative reconstruction. FINDINGS: No evidence of intracranial hemorrhage or mass effect. Ventricular system and basal cisterns are payne nt. Moderate small vessel changes with moderate parenchymal volume loss. No extra-axial fluid collect ions. No evidence of mass or mass effect. Chronic lacunar infarct RIGHT arriaga radiata unchanged. Int racranial vascular calcification. Tiny chronic lacunar infarct LEFT basal ganglia. Chronic infarct wi th encephalomalacia RIGHT parasagittal parietal occipital junction and RIGHT parietal lobe posteriorl y Inspissated secretions LEFT maxillary sinus. Prior postoperative changes LEFT sphenoid wing. IMPRESSION: 1. No evidence of intracranial hemorrhage or mass effect. 2. No acute intracranial findings.
[2023-08-12] MEDS: norepinephrine 4 MG/250 ML BAG 7.5 MG IV (10:44)
--- NOTE | 2023-08-12 11:04 | ECG_ITS ---
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 Measurements Intervals [place] Rate: 80 P: 47 SC: 181 QRS: 66 QRSD: 101 T: 49 QT: 390 QTc: 450 Interpretive Statements SINUS RHYTHM Compared to ECG 08/12/2023 09:10:00 No significant changes Electronically Signed On 08-12-2023 21:41:20 CDT by Mike Hilton M.D. [id number]
[2023-08-12 11:13] LABS: Influenza A by IFA negative (Negative); Influenza B by IFA negative (Negative)
[2023-08-12 11:17] LABS: Add Urine Microscopic? YES; Bilirubin Urine 1+ (Negative); Blood Urine 3+ (Negative); Glucose Urine UA Norm (Normal); Ketones Urine 1+ (Negative); Leukocyte Esterase Urine 2+ (Negative); Nitrate Urine Negative (Negative); Protein Urine 3+ (Negative); Urine Appearance Cloudy (CLEAR); Urine Color Dark Yellow (Yellow); Urobilinogen Urine 1 mg/dL (Negative); pH Urine 5 (5-7)
[2023-08-12 11:17] LABS: Partial Thromboplastin Time 41.2 SECONDS (23.9-36.7)
[2023-08-12 11:18] LABS: Amorphous Sediment Urine TRACE /hpf; Bacteria Urine 2+ /hpf; RBC Urine >100 /hpf (0-2); Squamous Epithelial Cell Urine 0-4 /hpf (0-5); WBC Urine 80-100 /hpf (0-5)
[2023-08-12 11:19] LABS: Add Urine Culture? Yes
[2023-08-12 11:34] LABS: Troponin 5 2HR Delta -7.6 ABS# (0-10)
[2023-08-12 11:37] LABS: Troponin 5 2HR 232.4 ng/L (0-15)
--- NOTE | 2023-08-12 12:06 | XR_ITS ---
WS: [id number] Portable AP semiupright chest, 08/12/2023, 1211 hours Clinical Data: central line placement Comparison: Portable chest, 08/12/2023, 0914 hours Findings: A left internal jugular venous catheter has been inserted. It ends in the midportion of the superior vena cava. No pneumothorax is seen. The remainder of the chest shows no change Impression: Insertion of left internal jugular venous catheter.
[2023-08-12] MEDS: heparin drip 25,000 UNIT/500 ML PREMIX 35 UNIT IV (12:16)
--- NOTE | 2023-08-12 12:19 | P.CONIM_ITS ---
Providers/Reason For Consult 2 Consulting Physician/Specialty*: kommana/ nephrology Reason for Consult*: End-stage renal disease Primary Care Provider: Misty Ibrahim History of Present Illness History of Present Illness Geronimo Barahona is a 62 year old male Patient is a 62-year-old male with past medical history of COPD diabetes, CHF A-fib, end-stage renal disease on dialysis per Friday, multiple bilateral lower extremity pressure ulcers presented to the emergency department due to altered mental status. [facility] is a [facility] when he was seen in the emergency department due to for fever and blood cultures were drawn at that time. Blood cultures came back positive for gram-positive cocci count of to be E faecalis. His urine culture also showed a faecalis. Patient was called to come back to the hospital due to positive cultures. In the emergency department patient received IV Vanco and IV ertapenem also required Levophed drip and transferred to ICU. Lab data is significant for hemoglobin of 7.3 sodium 130 potassium 5.8. Chest x-ray showed cardiomegaly and pulmonary congestion. Review of Systems 2 Narrative: Other review of systems negative Medications/Allergies Home Medications Medication Instructions Recorded Confirmed Last Taken Type albuterol sulfate 2.5 mg/3 mL 2.5 mg inhalation Q4H PRN 10/03/22 08/12/23 Unknown History (0.083 %) solution for nebulization Shortness Of Breath amiodarone 200 mg tablet 200 mg PO QAM 10/03/22 08/12/23 08/12/23 History apixaban 5 mg tablet (Eliquis) 5 mg PO BID 03/11/23 08/12/23 08/12/23 History silver sulfadiazine 1 % topical 1 applic topical DAILY 03/11/23 08/12/23 08/11/23 History cream (SSD) epinephrine 0.3 mg/0.3 mL 0.3 mg (0.3 mL) IM Q10M PRN 03/17/23 08/12/23 Unknown Rx injection, auto-injector anaphylaxis #2 ea gabapentin 100 mg capsule 100 mg PO BID #60 caps 05/27/23 08/12/23 08/12/23 Rx metoprolol tartrate 50 mg tablet See Rx Instructions .Route .COMPLEX 06/05/23 08/12/23 08/11/23 History sennosides 8.6 mg-docusate sodium 1 tab PO DAILY PRN Constipation 06/05/23 08/12/23 Unknown History 50 mg tablet (Stool Softener-Laxative) acetaminophen 325 mg tablet 650 mg PO Q6H PRN Pain 08/12/23 08/12/23 08/04/23 History bisacodyl 10 mg rectal suppository 10 mg MS DAILY PRN Constipation 08/12/23 08/12/23 Unknown History cholecalciferol (vitamin D3) 25 25 mcg PO QAM 08/12/23 08/12/23 08/12/23 History mcg (1,000 unit) capsule (Vitamin D3) ergocalciferol (vitamin D2) 1,250 1,250 mcg PO Q7D 08/12/23 08/12/23 08/08/23 History mcg (50,000 unit) capsule hydrocodone 5 mg-acetaminophen 325 1 tab PO Q6H PRN Pain 08/12/23 08/12/23 08/12/23 History mg tablet insulin aspart U-100 100 unit/mL 6 unit SUBCUT TID 08/12/23 08/12/23 08/12/23 History (3 mL) subcutaneous pen (Novolog FlexPen U-100 Insulin aspart) insulin glargine 100 unit/mL (3 12 unit SUBCUT QPM 08/12/23 08/12/23 08/11/23 History mL) subcutaneous pen (Lantus Solostar U-100 Insulin) metoprolol tartrate 50 mg tablet 50 mg PO .@1800 08/12/23 08/12/23 08/11/23 History nystatin 100,000 unit/gram topical 1 applic topical DAILY 08/12/23 08/12/23 08/11/23 History powder vitamin B complex and vitamin C 1 cap PO DAILY 08/12/23 08/12/23 08/11/23 History no.20-folic acid 1 mg capsule (Renal Caps) Allergies Allergy/AdvReac Type Severity Reaction Status Date / Time amoxicillin [From Augmentin] Allergy Mild rash Verified 08/08/23 11:48 clavulanic acid Allergy Mild rash Verified 08/08/23 11:48 [From Augmentin] levofloxacin Allergy Mild rash Verified 08/08/23 11:48 Current Medications Generic Name Dose Route Start Last Admin Trade Name Freq PRN Reason Stop Dose Admin norepinephrine 4 mg in 250 mls @ 0 mls/hr 08/12/23 10:00 08/12/23 10:44 Levophed IV 2 mcg/min .Q0M JAIDEN 7.5 mls/hr Administration Protocol Per Protocol PFSH Acute 2 PFSH: Medical History (Updated 08/12/23 @ 14:05 by Dean Shaw DO) ESRD (end stage renal disease) on dialysis Hyponatremia DM2 (diabetes mellitus, type 2) Pressure ulcer of left leg, stage 2 Pressure ulcer of right leg, stage 2 Wound of left foot Excoriation of groin Excoriation of abdomen Wound of left lower extremity Pressure ulcer of left buttock, stage 2 Pressure ulcer of right buttock, stage 2 Wound of right lower extremity Lymphedema Stasis dermatitis Pressure sore on buttocks Inability to perform activities of daily living Kidney dysfunction Fluid overload Cellulitis Hemodialysis status Temporary dialysis catheter placement Acute kidney failure Bradycardia Afib Anasarca Bilateral lower leg cellulitis Metabolic acidosis Hyperkalemia DKA (diabetic ketoacidosis) Falls Generalized weakness FRANCISCO (acute kidney injury) CHF (congestive heart failure) Chronic respiratory failure with hypoxia COPD (chronic obstructive pulmonary disease) Social History Smoking and tobacco/nicotine status: former use of tobacco/nicotine Vitals/I&O/Wt Last Vital Signs Temp 99.4 F 08/12/23 08:54 Pulse 80 08/12/23 12:00 Resp 19 H 08/12/23 12:00 BP 97/57 08/12/23 12:00 Pulse Ox 94 08/12/23 11:00 O2 Del Method Nasal Cannula 08/12/23 10:57 O2 Flow Rate 3 08/12/23 08:54 Weight last 48 hrs Weight 124.738 kg Physical Exam 2 Narrative: Patient is awake alert, no acute distress currently HEENT S1-S2 regular rate and rhythm per report Lungs clear per report Bilateral lower extremity wounds Urinary Catheter Management: Fuentes: Cath Placed During This Visit: yes Urinary Catheter Date of Insertion: 08/12/23 Urinary Catheter Time of Insertion: 09:52 Data 08/13/23 08:00 08/13/23 08:00 Micro: Microbiology 08/12/23 09:57 Blood Culture - Preliminary Blood SPECIMEN COLLECTED 08/12/23 09:53 Blood Culture - Preliminary Blood SPECIMEN COLLECTED A&P Assessment and plan (1) ESRD (end stage renal disease) on dialysis: Plan 1. End-stage renal disease: On MWF schedule as outpatient, now presented with altered mental status and positive blood cultures. -Will do dialysis today and may need to remove catheter depending on final cultures. 2. E faecalis bacteremia, on IV Vanco and meropenem, ID consult pending May need to remove tunneled catheter Await repeat culture results 3. Anemia: Status post CHUCK with HD yesterday 4. Sepsis, on pressors 5. History of A-fib on amiodarone and Eliquis Patient evaluated using audiovisual cart. Time spent 40 minutes. Consult Attestations 2 Medical Necessity Statement: Per medicine team Coding Level of Care Code Acute Code for Chg Fwd Diagnoses ESRD (end stage renal disease) on dialysis N18.6; Z99.2
[2023-08-12] MEDS: ertapenem 1,000 MG in sodium chloride 0.9% (plus) 100 ML 200 MG IV (12:22)
--- NOTE | 2023-08-12 12:35 | P.HP_ITS ---
Documented by User: JEREL Obregon [facility] 08/12/23 14:25 Providers/Chief Complaint 2 Admitting Physician: Lenny Montalvo MD Primary Care Provider: Misty Ibrahim Chief Complaint: AMS History of Present Illness Geronimo Barahona is a 62 year old male with past medical history of COPD, type 2 diabetes, CHF, A-fib, cellulitis, ESRD on dialysis, multiple pressure ulcers presents to the emergency department today with below listed complaint. Patient is a 62-year-old male that presents to the emergency department today from [facility] with complaints of altered mental status. He has a known past medical history of diabetes, end-stage renal disease currently on dialysis due for dialysis today, A-fib noted to be on anticoagulation, and COPD for which he wears oxygen at night. When interviewing the patient he was unable to tell me exactly when his symptoms started but it was noted he had been in the emergency department recently on 07 of August for a possible blood transfusion after dialysis and on the 01 August for a fever and blood in his urine. Patient was discharged to jail after receiving a unit of blood, antibiotics for acute cystitis during that ED visit. Blood cultures were drawn at this time on August 01, that later resulted on August 04 for 3 of 3 bottles positive for gram-positive cocci and chains with organism growth of Enterococcus Faecalis. Today Rafaela appears to be very weak and unable to answer questions very well. He currently denies chest pain, N&V, and shortness of breath although requiring 3L NC, noted to have a low grade fever currently. Patient is able to tell me his lives in [place]. While in the emergency department patient received 1000 mg of IV Ertapenem, vancomycin 1000mg IV, started on heparin drip, started on Levophed drip currently running at 2mcg/mL. An EKG, blood cultures, troponin series, urine culture, COVID PCR, flu swab, head CT were obtained. A telenephrology consult ordered, plans to do dialysis today. Central line placed per ED physician. Concern with sepsis. He was not a candidate for sepsis fluid bolus secondary to end-stage renal disease on hemodialysis with high risk for fluid overload and worsening respiratory status. Review of Systems 2 Const: Reports: fever(s), body aches and fatigue Eyes: Denies: change in vision, blurry vision, eye discomfort, eye discharge or eye redness ENMT: Denies: throat pain, odynophagia, mouth pain, dental pain or nasal congestion Card: Reports: edema and swelling of feet/ankles; Denies: chest pain or palpitations Resp: Reports: dyspnea; Denies: productive cough or chest congestion GI: Denies: abdominal pain, nausea, vomiting, diarrhea, constipation, hematochezia or melena : Reports: urinary incontinence and penile discharge; Denies: flank pain, difficulty urinating or dysuria Musc: Reports: extremity pain, extremity swelling and muscle weakness; Denies: neck pain or back pain Neuro: Reports: weakness in extremities and confusion; Denies: headache(s) All/Imm: Denies: urticaria, facial swelling or itchy eyes Medications/Allergies Home Medications Medication Instructions Recorded Confirmed Last Taken Type albuterol sulfate 2.5 mg/3 mL 2.5 mg inhalation Q4H PRN 10/03/22 08/12/23 Unknown History (0.083 %) solution for nebulization Shortness Of Breath amiodarone 200 mg tablet 200 mg PO QAM 10/03/22 08/12/23 08/12/23 History apixaban 5 mg tablet (Eliquis) 5 mg PO BID 03/11/23 08/12/23 08/12/23 History silver sulfadiazine 1 % topical 1 applic topical DAILY 03/11/23 08/12/23 08/11/23 History cream (SSD) epinephrine 0.3 mg/0.3 mL 0.3 mg (0.3 mL) IM Q10M PRN 03/17/23 08/12/23 Unknown Rx injection, auto-injector anaphylaxis #2 ea gabapentin 100 mg capsule 100 mg PO BID #60 caps 05/27/23 08/12/23 08/12/23 Rx metoprolol tartrate 50 mg tablet See Rx Instructions .Route .COMPLEX 06/05/23 08/12/23 08/11/23 History sennosides 8.6 mg-docusate sodium 1 tab PO DAILY PRN Constipation 06/05/23 08/12/23 Unknown History 50 mg tablet (Stool Softener-Laxative) acetaminophen 325 mg tablet 650 mg PO Q6H PRN Pain 08/12/23 08/12/23 08/04/23 History bisacodyl 10 mg rectal suppository 10 mg VA DAILY PRN Constipation 08/12/23 08/12/23 Unknown History cholecalciferol (vitamin D3) 25 25 mcg PO QAM 08/12/23 08/12/23 08/12/23 History mcg (1,000 unit) capsule (Vitamin D3) ergocalciferol (vitamin D2) 1,250 1,250 mcg PO Q7D 08/12/23 08/12/23 08/08/23 History mcg (50,000 unit) capsule hydrocodone 5 mg-acetaminophen 325 1 tab PO Q6H PRN Pain 08/12/23 08/12/23 08/12/23 History mg tablet insulin aspart U-100 100 unit/mL 6 unit SUBCUT TID 08/12/23 08/12/23 08/12/23 History (3 mL) subcutaneous pen (Novolog FlexPen U-100 Insulin aspart) insulin glargine 100 unit/mL (3 12 unit SUBCUT QPM 08/12/23 08/12/23 08/11/23 History mL) subcutaneous pen (Lantus Solostar U-100 Insulin) metoprolol tartrate 50 mg tablet 50 mg PO .@1800 08/12/23 08/12/23 08/11/23 History nystatin 100,000 unit/gram topical 1 applic topical DAILY 08/12/23 08/12/23 08/11/23 History powder vitamin B complex and vitamin C 1 cap PO DAILY 08/12/23 08/12/23 08/11/23 History no.20-folic acid 1 mg capsule (Renal Caps) Allergies Allergy/AdvReac Type Severity Reaction Status Date / Time amoxicillin [From Augmentin] Allergy Mild rash Verified 08/08/23 11:48 clavulanic acid Allergy Mild rash Verified 08/08/23 11:48 [From Augmentin] levofloxacin Allergy Mild rash Verified 08/08/23 11:48 PFSH Acute 2 PFSH: Medical History (Updated 08/12/23 @ 14:05 by Dean Shaw DO) ESRD (end stage renal disease) on dialysis Hyponatremia DM2 (diabetes mellitus, type 2) Pressure ulcer of left leg, stage 2 Pressure ulcer of right leg, stage 2 Wound of left foot Excoriation of groin Excoriation of abdomen Wound of left lower extremity Pressure ulcer of left buttock, stage 2 Pressure ulcer of right buttock, stage 2 Wound of right lower extremity Lymphedema Stasis dermatitis Pressure sore on buttocks Inability to perform activities of daily living Kidney dysfunction Fluid overload Cellulitis Hemodialysis status Temporary dialysis catheter placement Acute kidney failure Bradycardia Afib Anasarca Bilateral lower leg cellulitis Metabolic acidosis Hyperkalemia DKA (diabetic ketoacidosis) Falls Generalized weakness FRANCISCO (acute kidney injury) CHF (congestive heart failure) Chronic respiratory failure with hypoxia COPD (chronic obstructive pulmonary disease) Social History Smoking and tobacco/nicotine status: former use of tobacco/nicotine Vitals/I&O/Wt Last Vital Signs Temp 99.4 F 08/12/23 08:54 Pulse 80 08/12/23 12:00 Resp 19 H 08/12/23 12:00 BP 97/57 08/12/23 12:00 Pulse Ox 94 08/12/23 11:00 O2 Del Method Nasal Cannula 08/12/23 10:57 O2 Flow Rate 3 08/12/23 08:54 Weight last 48 hrs Weight 275 lb Physical Exam 2 Narrative: General Exam: A&O x2, on 3L NC, no apparent distress. Neck supple, no lymphadenopathy. Central line placed in right IJ. Resp: on 3L NC, lungs sounds diminished to auscultation. Cardio: no JVD, regular rate, regular rhythm : Fuentes in place urine noted to be rust colored. GI: large, non-tender, normoactive bowel sounds, incontinent. Extremities: 3+ pitting edema to bilateral lower legs, tenderness noted. Skin: no rash noted, big toe amputee of right foot. Urinary Catheter Management: Fuentes: Cath Placed During This Visit: yes Urinary Catheter Date of Insertion: 08/12/23 Urinary Catheter Time of Insertion: 09:52 Data 08/12/23 09:02 08/12/23 09:02 Other Labs: Na 130 Patternmaker Hand 5.8, BUN 40 CK 314 Baseline Trop 240, 120min Trop 232.4, Delta -7.6 UA WBC 80-100, bacteria 2+, RBC >100 COVID PCR negative Influenza swab negative Hbg 7.3, Hct 23.2 Hemoccult negative Chest X-ray Impression 08/12/23: By my read demonstrates cardiomegaly, pulmonary congestion with bilateral infiltrates left greater than right cannot exclude pneumonia. Dialysis catheter right IJ, central line left IJ with appropriate placement Right foot x-ray Impression 08/12/23: 1. Absent right first and second toes. 2. Irregularity of the distal right first metatarsal. 3. Negative for evidence of osteomyelitis Head CT Impression 08/12/23: 1. No evidence of intracranial hemorrhage or mass effect. 2. No acute intracranial findings. EKG 08/12/23: EKG demonstrates sinus rhythm, normal axis, right bundle per my read Echo April 2023 demonstrated normal EF Blood culture from 08 01 demonstrated 3-3 bottles with Enterococcus faecalis sensitive to penicillin and vancomycin Repeat blood cultures were drawn Previous urine culture demonstrated Enterococcus and ESBL Micro: Microbiology 08/12/23 09:57 Blood Culture - Preliminary Blood SPECIMEN COLLECTED 08/12/23 09:53 Blood Culture - Preliminary Blood SPECIMEN COLLECTED A&P Assessment and plan (1) Sepsis: Blood culture from 08/02/23 demonstrated 3-3 bottles with Enterococcus faecalis sensitive to penicillin and vancomycin Repeat blood cultures were drawn, pending. Previous urine culture demonstrated Enterococcus and ESBL Send dialysis catheter for culture postdialysis. Lactic acid noted to be 1.2 on 08/12/23 Initiate abx therapy with Primaxin IV, and Vancomycin IV (2) Hypotension: Secondary to Sepsis, currently on Levophed drip, titrate as needed. Hold current home antihypertensive medication. Monitor vital signs closely. (3) Anemia: Hemoccult noted to be negative, continue to monitor for bleeding Recheck CBC in am. Possibly transfuse with a unit of blood, during dialysis. PPI ordered. Fall precautions (4) Urinary tract infection: Fuentes catheter placed in ED, urine noted to be rust colored. Initiate Vancomycin and Primaxin abx therapy. Previous urine culture demonstrated Enterococcus and ESBL (5) Hyponatremia: Seizure precautions Monitor for worsening AMS Fall precautions (6) ESRD (end stage renal disease) on dialysis: Telenephrology consultation placed. Patient will receive dialysis today. Creatinine 5.8, BUN 40 Remove dialysis catheter postdialysis today send cultures, likely to consult surgery to place dialysis catheter at later time. Limit nephrotoxic drugs (7) DM2 (diabetes mellitus, type 2): ACHS Carbohydrate consistent diet Insulin sliding scale Continue long-acting insulin, Lantus. (8) COPD (chronic obstructive pulmonary disease): Continue as needed breathing treatment. Supplement oxygen at night Plan Multiple decubiti, sacrum/buttocks and right heel Full code Heparin will suffice for DVT prophylaxis Coding Level of Care Code Critical Care >/= 30 minutes Diagnoses Sepsis A41.9 Hypotension I95.9 Anemia D64.9 Urinary tract infection N39.0 Hyponatremia E87.1 ESRD (end stage renal disease) on dialysis N18.6; Z99.2 DM2 (diabetes mellitus, type 2) E11.9 COPD (chronic obstructive pulmonary disease) J44.9 Documented by User: Lenny Montalvo MD 08/12/23 15:14 Providers/Chief Complaint 2 Chief Complaint: AMS History of Present Illness Geronimo Barahona is a 62 year old male with past medical history of COPD, type 2 diabetes, CHF, A-fib, cellulitis, ESRD on dialysis, multiple pressure ulcers presents to the emergency department today with below listed complaint. Patient is a 62-year-old male that presents to the emergency department today from [facility] with complaints of altered mental status. He has a known past medical history of diabetes, end-stage renal disease currently on dialysis due for dialysis today, A-fib noted to be on anticoagulation, and COPD for which he wears oxygen at night. When interviewing the patient he was unable to tell me exactly when his symptoms started but it was noted he had been in the emergency department recently on 07 of August for a possible blood transfusion after dialysis and on the 01 August for a fever and blood in his urine. Patient was discharged to jail after receiving a unit of blood, antibiotics for acute cystitis during that ED visit. Blood cultures were drawn at this time on August 01, that later resulted on August 04 for 3 of 3 bottles positive for gram-positive cocci and chains with organism growth of Enterococcus Faecalis. Today Rafaela appears to be very weak and unable to answer questions very well. He currently denies chest pain, N&V, and shortness of breath although requiring 3L NC, noted to have a low grade fever currently. Patient is able to tell me his lives in [place]. While in the emergency department patient received 1000mg of Ertapenem, vancomycin 1000 mgIV, started on heparin drip, started on Levophed drip currently running at 2mcg/mL, given albumin 12.5 g. An EKG, blood cultures, troponin series, urine culture, COVID PCR, flu swab, head CT were obtained. A telenephrology consult ordered, plans to do dialysis today. Central line placed per ED physician. Concern with sepsis. He was not a candidate for sepsis fluid bolus secondary to end-stage renal disease on hemodialysis with high risk for fluid overload and worsening respiratory status. Medications/Allergies Home Medications Medication Instructions Recorded Confirmed Last Taken Type albuterol sulfate 2.5 mg/3 mL 2.5 mg inhalation Q4H PRN 10/03/22 08/12/23 Unknown History (0.083 %) solution for nebulization Shortness Of Breath amiodarone 200 mg tablet 200 mg PO QAM 10/03/22 08/12/23 08/12/23 History apixaban 5 mg tablet (Eliquis) 5 mg PO BID 03/11/23 08/12/23 08/12/23 History silver sulfadiazine 1 % topical 1 applic topical DAILY 03/11/23 08/12/23 08/11/23 History cream (SSD) epinephrine 0.3 mg/0.3 mL 0.3 mg (0.3 mL) IM Q10M PRN 03/17/23 08/12/23 Unknown Rx injection, auto-injector anaphylaxis #2 ea gabapentin 100 mg capsule 100 mg PO BID #60 caps 05/27/23 08/12/23 08/12/23 Rx metoprolol tartrate 50 mg tablet See Rx Instructions .Route .COMPLEX 06/05/23 08/12/23 08/11/23 History sennosides 8.6 mg-docusate sodium 1 tab PO DAILY PRN Constipation 06/05/23 08/12/23 Unknown History 50 mg tablet (Stool Softener-Laxative) acetaminophen 325 mg tablet 650 mg PO Q6H PRN Pain 08/12/23 08/12/23 08/04/23 History bisacodyl 10 mg rectal suppository 10 mg VA DAILY PRN Constipation 08/12/23 08/12/23 Unknown History cholecalciferol (vitamin D3) 25 25 mcg PO QAM 08/12/23 08/12/23 08/12/23 History mcg (1,000 unit) capsule (Vitamin D3) ergocalciferol (vitamin D2) 1,250 1,250 mcg PO Q7D 08/12/23 08/12/23 08/08/23 History mcg (50,000 unit) capsule hydrocodone 5 mg-acetaminophen 325 1 tab PO Q6H PRN Pain 08/12/23 08/12/23 08/12/23 History mg tablet insulin aspart U-100 100 unit/mL 6 unit SUBCUT TID 08/12/23 08/12/23 08/12/23 History (3 mL) subcutaneous pen (Novolog FlexPen U-100 Insulin aspart) insulin glargine 100 unit/mL (3 12 unit SUBCUT QPM 08/12/23 08/12/23 08/11/23 History mL) subcutaneous pen (Lantus Solostar U-100 Insulin) metoprolol tartrate 50 mg tablet 50 mg PO .@1800 08/12/23 08/12/23 08/11/23 History nystatin 100,000 unit/gram topical 1 applic topical DAILY 08/12/23 08/12/23 08/11/23 History powder vitamin B complex and vitamin C 1 cap PO DAILY 08/12/23 08/12/23 08/11/23 History no.20-folic acid 1 mg capsule (Renal Caps) Allergies Allergy/AdvReac Type Severity Reaction Status Date / Time amoxicillin [From Augmentin] Allergy Mild rash Verified 08/08/23 11:48 clavulanic acid Allergy Mild rash Verified 08/08/23 11:48 [From Augmentin] levofloxacin Allergy Mild rash Verified 08/08/23 11:48 PFSH Acute 2 PFSH: Medical History (Updated 08/12/23 @ 14:05 by Dean Shaw DO) ESRD (end stage renal disease) on dialysis Hyponatremia DM2 (diabetes mellitus, type 2) Pressure ulcer of left leg, stage 2 Pressure ulcer of right leg, stage 2 Wound of left foot Excoriation of groin Excoriation of abdomen Wound of left lower extremity Pressure ulcer of left buttock, stage 2 Pressure ulcer of right buttock, stage 2 Wound of right lower extremity Lymphedema Stasis dermatitis Pressure sore on buttocks Inability to perform activities of daily living Kidney dysfunction Fluid overload Cellulitis Hemodialysis status Temporary dialysis catheter placement Acute kidney failure Bradycardia Afib Anasarca Bilateral lower leg cellulitis Metabolic acidosis Hyperkalemia DKA (diabetic ketoacidosis) Falls Generalized weakness FRANCISCO (acute kidney injury) CHF (congestive heart failure) Chronic respiratory failure with hypoxia COPD (chronic obstructive pulmonary disease) Social History Smoking and tobacco/nicotine status: former use of tobacco/nicotine Physical Exam 2 Narrative: General Exam: A&O x2, on 3L NC, no apparent distress. Confused. Neck supple, no lymphadenopathy. Central line placed in left IJ. Resp: on 3L NC, lungs sounds diminished to auscultation. Cardio: no JVD, regular rate, regular rhythm : Fuentes in place urine noted to be rust colored. GI: large, non-tender, normoactive bowel sounds, incontinent. Extremities: 2+ pitting edema to bilateral lower legs, tenderness noted. Skin: no rash noted, big toe amputee of right foot. Decubitus, with skin intact right heel with significant bruising and softness to the heel. Decubiti are also reported on the back but I am not yet visualized. Will visualize during this hospital stay within the next 24 hours but the emergency department has visualized and described this is stage II. No evidence of infection on his exam. Urinary Catheter Management: Fuentes: Cath Placed During This Visit: yes Data 08/12/23 09:02 08/12/23 09:02 Other Labs: Na 130 Patternmaker Hand 5.8, BUN 40 CK 314 Baseline Trop 240, 120min Trop 232.4, Delta -7.6 UA WBC 80-100, bacteria 2+, RBC >100 COVID PCR negative Influenza swab negative Hbg 7.3, Hct 23.2 Chest X-ray Impression 08/12/23: By my read demonstrates cardiomegaly, pulmonary congestion with bilateral infiltrates left greater than right cannot exclude pneumonia. Dialysis catheter right IJ, central line left IJ with appropriate placement Right foot x-ray Impression 08/12/23: 1. Absent right first and second toes. 2. Irregularity of the distal right first metatarsal. 3. Negative for evidence of osteomyelitis Head CT Impression 08/12/23: 1. No evidence of intracranial hemorrhage or mass effect. 2. No acute intracranial findings. EKG 08/12/23: EKG demonstrates sinus rhythm, normal axis, right bundle per my read Echo April 2023 demonstrated normal EF Blood culture from 08 01 demonstrated 3-3 bottles with Enterococcus faecalis sensitive to penicillin and vancomycin Repeat blood cultures were drawn Previous urine culture demonstrated Enterococcus and ESBL A&P Assessment and plan (1) Sepsis: Blood culture from 08/02/23 demonstrated 3-3 bottles with Enterococcus faecalis sensitive to penicillin and vancomycin Repeat blood cultures were drawn, pending. Previous urine culture demonstrated Enterococcus and ESBL Lactic acid noted to be 1.2 on 08/12/23 Initiate abx therapy with meropenem IV, and Vancomycin IV Considering previous bacteremia, will repeat patient's echocardiogram. X-ray of right heel did not demonstrate osteomyelitis Secondary to previous bacteremia, dialysis catheter right IJ, Consider removal of dialysis catheter and replacement of another tunneled catheter. Will consult infectious disease to help with this decision making process and this significantly outpatient. Culture to be obtained from dialysis catheter. (2) Hypotension: Secondary to Sepsis, currently on Levophed drip, titrate as needed. Hold current home antihypertensive medication. Monitor vital signs closely. Was not a candidate for sepsis fluid bolus secondary to end-stage renal disease on hemodialysis with high risk for fluid overload and worsening respiratory status (3) Anemia: Hemoccult noted to be negative, continue to monitor for bleeding Recheck CBC in am. If hemoglobin decreases further, consider transfusion PPI ordered. Appropriate in this patient who is anemic, with significant stress. Fall precautions (4) Urinary tract infection: Fuentes catheter placed in ED, urine noted to be rust colored. Initiate Vancomycin and meropenem abx therapy. Previous urine culture demonstrated Enterococcus and ESBL (5) Hyponatremia: (6) ESRD (end stage renal disease) on dialysis: Telenephrology consultation placed. Patient will receive dialysis today. Creatinine 5.8, BUN 40 Limit nephrotoxic drugs (7) DM2 (diabetes mellitus, type 2): ACHS Insulin sliding scale N.p.o. for now No evidence of DKA (8) COPD (chronic obstructive pulmonary disease): Continue as needed DuoNeb Budesonide twice daily Supplement oxygen at night Plan Multiple decubiti, sacrum/buttocks and right heel. Local care with offloading, frequent turning, etc. History of atrial fibrillation. Hold Eliquis, secondary to anemia. At this point we will also discontinue heparin drip. Continue amiodarone Elevated troponin, no evidence of chest pain or EKG changes. This is likely secondary to his renal failure Mild rhabdomyolysis. Other medical problems as outlined in past medical history. Full code Heparin will suffice for DVT prophylaxis Attestations 2 Medical Necessity Statement*: Will need greater than 2 midnight stay for evaluation and treatment of sepsis Critical Care Time: The high probability of a clinically significant, sudden or life threatening deterioration of the patient's [pulmonary, infectious disease, renal, cardiac] s ystem(s) required my full and direct attention, intervention and personal management. The critical care time is as shown. This time is in addition to time spent performing any reported procedures but includes the following: [x] Data and vital sign review and interpretation [x] Patient assessment, examination and intervention [x] Documentation [x] Medication orders and management Critical Care Time (min): 68 Coding Level of Care Code Critical Care >/= 30 minutes Critical care time (in minutes): 68 The high probability of a clinically significant, sudden or life threatening deterioration, as referenced in this documentation, required my full and direct attention, intervention and personal management. The critical care time shown is in addition to time spent performing any reported separately billable procedures and includes the following: [x] Data and vital sign review and interpretation [x ] Patient assessment, examination and intervention [x] Medication orders and management [x] Patient/Family updates as able [x] Care Coordination and Documentation. Diagnoses Sepsis A41.9 Hypotension I95.9 Anemia D64.9 Urinary tract infection N39.0 Hyponatremia E87.1 ESRD (end stage renal disease) on dialysis N18.6; Z99.2 DM2 (diabetes mellitus, type 2) E11.9 COPD (chronic obstructive pulmonary disease) J44.9
[2023-08-12 12:44] LABS: Adenovirus Not Detected (NOT DETECT); Chlamydia Pneumoniae Not Detected (NOT DETECT); Coronavirus 229E,HKU1,NL63,OC4 Not Detected (NOT DETECT); Human Metapneumovirus Not Detected (NOT DETECT); Human Rhinovirus/Enterovirus Not Detected (NOT DETECT); Influenza A Not Detected (NOT DETECT); Influenza A H1 Not Detected (NOT DETECT); Influenza A H1-2009 Not Detected (NOT DETECT); Influenza A H3 Not Detected (NOT DETECT); Influenza B Not Detected (NOT DETECT); Mycoplasma Pneumoniae Not Detected (NOT DETECT); Parainfluenza Virus Type 1 Not Detected (NOT DETECT); Parainfluenza Virus Type 2 Not Detected (NOT DETECT); Parainfluenza Virus Type 3 Not Detected (NOT DETECT); Parainfluenza Virus Type 4 Not Detected (NOT DETECT); Respiratory Syncytial Virus A Not Detected (NOT DETECT); Respiratory Syncytial Virus B Not Detected (NOT DETECT); SARS-COV-2 Not Detected (NOT DETECT)
[2023-08-12] MEDS: vancomycin 1,000 MG in sodium chloride 0.9% 250 ML 250 MG IV (13:39)
[2023-08-12 14:08] LABS: Hepatitis B Core AB, Total Non-Reactive (Nonreactive); Hepatitis B Surface AB < 3.5 (11.5-1000)
--- NOTE | 2023-08-12 14:41 | USCV_ITS ---
Geronimo Barahona Age: 62 Gender: M : 1960 Exam Date: 08/12/2023 15:00 Ordering Phys: Lenny Montalvo MD Technologist: Exam Location: [facility] [place] Indication: bacteremia BP: 145 / 86 HR: 60 Rhythm: Sinus Technical Quality: Adequate MEASUREMENTS (Male / Female) Normal Values 2D ECHO LV Diastolic Diameter PLAX 5.2 cm 4.2 - 5.9 / 3.9 - 5.3 cm IVS Diastolic Thickness 1.0 cm 0.6 - 1.0 / 0.6 - 0.9 cm IVS Systolic Thickness 2.1 cm LVPW Diastolic Thickness 1.3 cm 0.6 - 1.0 / 0.6 - 0.9 cm LVPW Systolic Thickness 1.6 cm LVOT Diameter 2.1 cm LV Ejection Fraction 2D Teich 66.1 % LV Ejection Fraction MOD 2C 65.4 % LV Ejection Fraction 2C AL 67.3 % LA Diameter 4.3 cm RA Systolic Volume 4C AL 37.5 ml RA Systolic Volume 4C MOD 37.3 ml Aorta at Sinotubular Diameter 2.5 cm IVC Diameter 2.4 cm M-MODE LA Ao Ratio MM 1.4 AV Cusp Separation MM 2.2 cm DOPPLER AV Peak Velocity 194.7 cm/s LVOT Peak Velocity 104.0 cm/s AV Area Cont Eq vti 1.9 cm squared AV Area Cont Eq pk 1.8 cm squared MV Peak Velocity 207.0 cm/s MV Area PHT 2.9 cm squared Mitral E to A Ratio 2.0 TV Peak Velocity 252.0 cm/s TR Peak Velocity 285.0 cm/s TR Peak Gradient 32.5 mmHg TR Mean Velocity 235.0 cm/s TR Mean Gradient 24.6 mmHg TR Velocity Time Integral 92.4 cm TV Peak E Velocity 72.0 cm/s Right Atrial Pressure 3.0 mmHg Pulmonary Artery Systolic Pressu 35.5 mmHg PV Peak Velocity 114.0 cm/s FINDINGS Left Ventricle Left ventricle is normal in size. LV systolic function is normal with EF of 60-65%. No regional wall motion abnormalities are seen Right Ventricle Normal in size and function Right Atrium Normal in size Left Atrium Normal in size Mitral Valve Mitral valve is thickened. Mobile echogenic structure seen in close proximity to mitral valve. Could be calcified chordae versus vegetation. Mild mitral regurgitation. Mild mitral stenosis with mean gradient of 6.34mmHg. Aortic Valve Aortic valve is thickened. Aortic valve vegetation can not be ruled out. No significant stenosis or regurgitation. Tricuspid Valve Mild tricuspid regurgitation. RVSP is 35 to 40 mmHg. This is consistent with mild pulmonary hypertension Pulmonic Valve Not well visualized Pericardium Normal Aorta Normal in size IVC Appears dilated CONCLUSIONS LV systolic function is normal with EF of 60 to 65%. Mitral valve is thickened. Mobile echogenic structure seen in close proximity to mitral valve. Could be can be calcified chordae versus vegetation. Mild mitral regurgitation. Mild mitral stenosis. Aortic valve is thickened. Vegetation cannot be ruled out. Mild tricuspid regurgitation. Mild pulmonary hypertension IVC appears dilated. Accurate comparison with prior studies not possible because of limited quality prior studies. Mike Hilton MD (Electronically Signed) Final Date: 12 August 2023 18:02 S
--- NOTE | 2023-08-12 15:04 | ECG_ITS ---
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 Measurements Intervals [place] Rate: 78 P: 52 NM: 189 QRS: 37 QRSD: 101 T: 30 QT: 407 QTc: 466 Interpretive Statements SINUS RHYTHM Compared to ECG 08/12/2023 11:09:36 No significant changes Electronically Signed On 08-12-2023 21:37:38 CDT by Mike Hilton M.D. [id number]
[2023-08-12 15:10] LABS: Hepatitis B Surface Antigen Reactive (Nonreactive)
[2023-08-12] MEDS: pantoprazole 40 mg SDV IVP (16:26)
[2023-08-12] MEDS: HYDROcodone-acetaminophen 5-325 mg Tablet 1 TAB PO (16:27)
[2023-08-12 17:43] LABS: Glucose Point of Care 140 mg/dL (70-110)
[2023-08-12] MEDS: heparin, porcine 1,000 unit/mL INJ 10 mL 1000 UNIT IV (19:05)
[2023-08-12] MEDS: heparin, porcine 1,000 unit/mL INJ 10 mL 10000 UNIT INTRACATH (19:06)
[2023-08-12] MEDS: epoetin alfa 1000 Unit/0.05 mL (ESRD) 20000 UNIT IVP (19:22)
[2023-08-12] MEDS: meropenem 500 MG in sodium chloride 0.9% (plus) 50 ML 100 MG IV (21:12)
[2023-08-12] MEDS: heparin 5,000 unit/mL INJ 1 mL 5000 UNIT SUBCUT (21:13)
[2023-08-12] MEDS: morphine 4 mg/mL SDV 1 mL 2 MG IVP (21:14)
[2023-08-12 22:21] LABS: Glucose Point of Care 132 mg/dL (70-110)
[2023-08-13] VITALS (78 sets, daily range): BP systolic 81–142; BP diastolic 30–70; PULSE 64–86; RESP 2–26; TEMP 36.1–37.7; O2SAT 88–100; BMI 35.2
--- NOTE | 2023-08-13 | PC.NURSE ---
At the beginning of this nurse's shift the levophed drip was running at 6 mcg/min. MAR was updated to reflect this.
[2023-08-13] MEDS: HYDROcodone-acetaminophen 5-325 mg Tablet 1 TAB PO ×4 (00:25→22:19)
--- NOTE | 2023-08-13 00:28 | PC.NURSE ---
Arrival to ICU: 2030: Patient arrived to the ICU from the ER by stretcher
[2023-08-13 01:58] LABS: Bacillus cereus group Not Detected (NOT DETECT); Bacillus subtillis group Not Detected (NOT DETECT); Corynebacterium Not Detected (NOT DETECT); Cutibacterium acnes (P.acnes) Not Detected (NOT DETECT); Enterococcus Detected (NOT DETECT); Enterococcus faecalis Detected (NOT DETECT); Enterococcus faecium Not Detected (NOT DETECT); Lactobacillus species Not Detected (NOT DETECT); Listeria Not Detected (NOT DETECT); Listeria monocytogenes Not Detected (NOT DETECT); Micrococcus Not Detected (NOT DETECT); Pan Candida Not Detected (NOT DETECT); Pan Gram-Negative Not Detected (NOT DETECT); Staphylococcus epidermidis Not Detected (NOT DETECT); Staphylococcus lugdunensis Not Detected (NOT DETECT); Staphylococcus species Not Detected (NOT DETECT); Streptococcus agalactiae Not Detected (NOT DETECT); Streptococcus anginosus group Not Detected (NOT DETECT); Streptococcus pneumoniae Not Detected (NOT DETECT); Streptococcus pyogenes Not Detected (NOT DETECT); Streptococcus species Not Detected (NOT DETECT); vanA Not Detected ` (NOT DETECT); vanC Not Detected (NOT DETECT)
[2023-08-13 02:05] LABS: Hematocrit 22.4 % (37-53)
[2023-08-13] MEDS: pantoprazole 40 mg SDV IVP ×2 (03:41→16:16)
[2023-08-13] MEDS: sodium chloride 0.9% 100 mL Bag 50 ML IV (04:35)
[2023-08-13] MEDS: amiodarone 200 mg Tablet PO (06:18)
[2023-08-13 07:24] LABS: Glucose Point of Care 150 mg/dL (70-110)
[2023-08-13] MEDS: heparin 5,000 unit/mL INJ 1 mL 5000 UNIT SUBCUT ×2 (07:32→19:54)
[2023-08-13] MEDS: insulin lispro 100 unit/1 mL SUBCUT ×4 (07:37→22:20)
[2023-08-13 08:12] LABS: Basophils % 0.6 %; Eosinophils # 0.1 10^3/uL (0.0-0.8); Eosinophils % 0.9 %; Hematocrit 24.6 % (37-53); Lymphocytes # 0.4 10^3/uL (0.8-4.8); Lymphocytes % 7.4 %; Mean Corpuscular HGB Conc 31.3 g/dL (30-55); Mean Corpuscular Hemoglobin 29.7 pg (27-33); Mean Platelet Volume 10.1 fL (7.4-10.4); Monocytes # 0.5 10^3/uL (0.2-0.9); Monocytes % 8.7 %; Neutrophils # 4.46 10^3/uL (1.8-7.7); Nucleated Red Blood Cells % 0 %; Platelet Count 173 10^3/cmm (157-399); Red Blood Count 2.59 10^6/uL (3.85-5.65); Red Cell Distribution Width 17.9 % (12.1-15.1); White Blood Count 5.43 10^3/uL (3.29-11.43)
[2023-08-13 08:39] LABS: Alanine Aminotransferase 7 U/L (0-41); Albumin Level 2.7 g/dL (3.5-5.2); Alkaline Phosphatase 104 U/L (40-130); Anion Gap 18.5 (5-19); Aspartate Amino Transferase 10 U/L (0-40); Blood Urea Nitrogen 25 mg/dL (8-23); Calcium 7.9 mg/dL (8.5-10.5); Carbon Dioxide 25 mmol/L (22-29); Chloride 98 mmol/L (98-107); Glomerular Filtration Rate 16.8 mL/min (90-130); Glucose 154 mg/dL (65-115); Osmolality Calculated 293 mOsm/kg (285-295); Potassium 3.5 mmol/L (3.5-5.1); Sodium 138 mmol/L (136-145); Total Bilirubin 0.7 mg/dL (0.15-1.2); Total Protein 5.7 g/dL (6.6-8.7)
[2023-08-13] MEDS: norepinephrine 4 MG/250 ML BAG 15 MG IV (08:56)
[2023-08-13 09:06] LABS: Creatinine Clr Calc Pharmacy 28.1176
--- NOTE | 2023-08-13 09:59 | P.PN_ITS ---
Documented by User: JEREL Obregon STDWIL 08/13/23 10:16 Subjective 2 Subjective: Patient resting in bed this morning room air. Blood pressure still being supported by Levophed at 4mcg/min. Patient noted to be more alert this morning and he reports that he is feeling better today. Overnight patient did receive a unit of blood overnight. Current denies chest pain, shortness of breath, and nausea. Medications: Reviewed: Yes Vitals/I&O/Wt Last Vital Signs Temp 97.0 F L 08/13/23 05:02 Pulse 70 08/13/23 07:42 Resp 14 08/13/23 06:00 BP 99/47 08/13/23 06:00 Pulse Ox 95 08/13/23 07:42 O2 Del Method Nasal Cannula 08/13/23 07:42 O2 Flow Rate 3 08/13/23 07:42 08/12/23 08/13/23 08/13/23 22:59 06:59 14:59 Intake Total 637.0 / 703.5 408.875 / 1112.375 158.75 / 158.75 Output Total 3500 / 3500 500 / 4000 Balance -2863.0 / -2796.5 -91.125 / -2887.625 158.75 / 158.75 Weight last 48 hrs Weight 259 lb 7 oz Weight 259 lb 7 oz Weight 259 lb 7.745 oz Weight 275 lb Physical Exam 2 Narrative: General Exam: A&O x3, on 3L NC, no apparent distress. Neck supple, no lymphadenopathy. Central line placed in left IJ. Resp: on 3L NC, lungs sounds clear to auscultation. Cardio: no JVD, regular rate, regular rhythm GI: large, non-tender, normoactive bowel sounds, incontinent. Extremities: 2+ pitting edema to bilateral lower legs, tenderness noted. Skin: no rash noted, big toe amputee of right foot. Decubitus, with skin intact right heel with significant bruising and softness to the heel. Decubitus are also reported on the backside, described this is stage II. No evidence of infection on his exam. Urinary Catheter Management: Funetes: Cath Placed During This Visit: yes Reason for Continuing Indwelling Catheter: Accurate Measurement of Urinary Output in Critically Ill Patients Urinary Catheter Date of Insertion: 08/12/23 Urinary Catheter Time of Insertion: 09:52 Data 08/13/23 08:00 08/13/23 08:00 Micro: Microbiology 08/12/23 09:53 Urine Culture - Preliminary Urine,Clean Catch Yeast 08/12/23 09:53 Blood Culture - Preliminary Blood SPECIMEN COLLECTED 08/12/23 16:46 Blood Culture - Preliminary Blood SPECIMEN COLLECTED 08/12/23 09:57 Blood Culture - Preliminary Blood SPECIMEN COLLECTED A&P Assessment and plan (1) Sepsis: Blood culture from 08/02/23 demonstrated 3-3 bottles with Enterococcus faecalis sensitive to penicillin and vancomycin Repeat blood cultures were drawn, pending. Previous urine culture demonstrated Enterococcus and ESBL Lactic acid noted to be 1.2 on 08/12/23 Continue abx therapy with meropenem IV, and Vancomycin IV Echocardiogram demonstrated EF of 60 to 65%, mitral valve thickening with mobile echogenic structure seen in close proximity calcified chordae versus vegetation. Will consult with cardiology. X-ray of right heel did not demonstrate osteomyelitis Secondary to previous bacteremia, dialysis catheter right IJ, Consider removal of dialysis catheter and replacement of another tunneled catheter. Will consult infectious disease to help with this decision making process and this significantly outpatient. Culture obtained from dialysis catheter pending. (2) Hypotension: Secondary to Sepsis, currently on Levophed drip, titrate as needed. Hold current home antihypertensive medication. Monitor vital signs closely. Was not a candidate for sepsis fluid bolus secondary to end-stage renal disease on hemodialysis with high risk for fluid overload and worsening respiratory status (3) Anemia: Hemoccult noted to be negative, continue to monitor for bleeding Hemoglobin dropped to 6.9g/dL postdialysis, patient received unit of blood overnight. This morning's hemoglobin noted to be 7.7g/dL Recheck CBC in am. PPI ordered. Appropriate in this patient who is anemic, with significant stress. Fall precautions (4) Urinary tract infection: Fuentes catheter placed in ED, urine noted to be rust colored. Continue vancomycin and meropenem abx therapy. Previous urine culture demonstrated Enterococcus and ESBL. Urine culture 08/13/23 resulted for yeast (5) Hyponatremia: Seizure precautions Monitor for worsening AMS Fall precautions (6) ESRD (end stage renal disease) on dialysis: Telenephrology consultation placed. Patient received dialysis 08/12/23. Civil Litigation Attorney 3.7, BUN 25. Improving. Determine if patient will need dialysis again today, per nephrology consult. Limit nephrotoxic drugs (7) DM2 (diabetes mellitus, type 2): ACHS Insulin sliding scale Carbohydrate consistent diet ordered. No evidence of DKA (8) COPD (chronic obstructive pulmonary disease): Continue as needed DuoNeb Budesonide twice daily Supplement oxygen at night Plan Multiple decubiti, sacrum/buttocks and right heel. Local care with offloading, frequent turning, etc. History of atrial fibrillation. Hold Eliquis, secondary to anemia. Continue amiodarone Elevated troponin, no evidence of chest pain or EKG changes. This is likely secondary to his renal failure Mild rhabdomyolysis. Other medical problems as outlined in past medical history. Full code Heparin will suffice for DVT prophylaxis Coding Level of Care Code Critical Care >/= 30 minutes Diagnoses Sepsis A41.9 Hypotension I95.9 Anemia D64.9 Urinary tract infection N39.0 Hyponatremia E87.1 ESRD (end stage renal disease) on dialysis N18.6; Z99.2 DM2 (diabetes mellitus, type 2) E11.9 COPD (chronic obstructive pulmonary disease) J44.9 Documented by User: Lenny Montalvo MD 08/13/23 10:44 Physical Exam 2 Urinary Catheter Management: Fuentes: Cath Placed During This Visit: yes Data 08/13/23 08:00 08/13/23 08:00 A&P Assessment and plan (1) Sepsis: Blood culture from 08/02/23 demonstrated 3-3 bottles with Enterococcus faecalis sensitive to penicillin and vancomycin Repeat blood cultures were drawn, pending. Previous urine culture demonstrated Enterococcus and ESBL Lactic acid noted to be 1.2 on 08/12/23 Continue abx therapy with meropenem IV, and Vancomycin IV Echocardiogram demonstrated EF of 60 to 65%, mitral valve thickening with mobile echogenic structure seen in close proximity calcified chordae versus vegetation. X-ray of right heel did not demonstrate osteomyelitis Secondary to previous bacteremia, dialysis catheter right IJ, Consider removal of dialysis catheter and replacement of another tunneled catheter. Will consult infectious disease to help with this decision making process and this significantly outpatient. Culture obtained from dialysis catheter pending. In general, seems to be slowly improving although still requiring norepinephrine. Patient had significant acute encephalopathy associated with the sepsis yesterday that appears significantly improved today. (2) Hypotension: (3) Anemia: (4) Urinary tract infection: Fuentes catheter placed in ED, urine noted to be rust colored. Continue vancomycin and meropenem abx therapy. Previous urine culture demonstrated Enterococcus and ESBL. Urine culture 08/13/23 resulted for yeast on preliminary (5) Hyponatremia: (6) ESRD (end stage renal disease) on dialysis: Telenephrology consultation placed. Patient received dialysis 08/12/23. Civil Litigation Attorney 3.7, BUN 25. Improving. Nephrology will determine when dialysis is appropriate again. Patient was on a Friday schedule at the nursing facility Limit nephrotoxic drugs (7) DM2 (diabetes mellitus, type 2): (8) COPD (chronic obstructive pulmonary disease): Plan Multiple decubiti, sacrum/buttocks and right heel. Local care with offloading, frequent turning, etc. History of atrial fibrillation. Hold Eliquis, secondary to anemia. Continue amiodarone. Consider resumption of Eliquis at discharge. Procedures may be needed during this hospital stay as well. Elevated troponin, no evidence of chest pain or EKG changes. This is likely secondary to his renal failure Mild rhabdomyolysis. Other medical problems as outlined in past medical history. Full code Heparin will suffice for DVT prophylaxis Still requires significant ICU care is on norepinephrine for hypotension which is a high risk medication requiring frequent monitoring and decision making. Attestations 2 Medical Necessity Statement*: Needs continued hospitalization secondary to sepsis, concern for bacteremia, need for IV antibiotics, hypotension requiring norepinephrine. Critical Care Time: The high probability of a clinically significant, sudden or life threatening deterioration of the patient's [cardiac, infectious disease, renal] system(s) required my full and direct attention, intervention and personal management. The critical care time is as shown. This time is in addition to time spent performing any reported procedures but includes the following: [x] Data and vital sign review and interpretation [x] Patient assessment, examination and intervention [x] Documentation [x] Medication orders and management Critical Care Time (min): 35 Coding Level of Care Code Critical Care >/= 30 minutes Critical care time (in minutes): 35 The high probability of a clinically significant, sudden or life threatening deterioration, as referenced in this documentation, required my full and direct attention, intervention and personal management. The critical care time shown is in addition to time spent performing any reported separately billable procedures and includes the following: [x] Data and vital sign review and interpretation [x ] Patient assessment, examination and intervention [x] Medication orders and management [x] Patient/Family updates as able [x] Care Coordination and Documentation. Diagnoses Sepsis A41.9 Hypotension I95.9 Anemia D64.9 Urinary tract infection N39.0 Hyponatremia E87.1 ESRD (end stage renal disease) on dialysis N18.6; Z99.2 DM2 (diabetes mellitus, type 2) E11.9 COPD (chronic obstructive pulmonary disease) J44.9
--- NOTE | 2023-08-13 11:30 | P.PN_ITS ---
Subjective 2 Subjective: fells better on low dose levophed Medications: Reviewed: Yes Vitals/I&O/Wt Last Vital Signs Temp 98.7 F 08/13/23 08:00 Pulse 64 08/13/23 10:00 Resp 17 08/13/23 10:00 BP 113/48 08/13/23 10:00 Pulse Ox 98 08/13/23 10:00 O2 Del Method Nasal Cannula 08/13/23 08:00 O2 Flow Rate 2 08/13/23 08:00 08/12/23 08/13/23 08/13/23 22:59 06:59 14:59 Intake Total 637.0 / 703.5 408.875 / 1112.375 158.75 / 158.75 Output Total 3500 / 3500 500 / 4000 Balance -2863.0 / -2796.5 -91.125 / -2887.625 158.75 / 158.75 Weight last 48 hrs Weight 117.679 kg Weight 117.679 kg Weight 117.7 kg Weight 124.738 kg Physical Exam 2 Narrative: Patient is awake alert, no acute distress currently HEENT S1-S2 regular rate and rhythm per report Lungs clear per report Bilateral lower extremity wounds Urinary Catheter Management: Fuentes: Cath Placed During This Visit: yes Reason for Continuing Indwelling Catheter: Accurate Measurement of Urinary Output in Critically Ill Patients Urinary Catheter Date of Insertion: 08/12/23 Urinary Catheter Time of Insertion: 09:52 Data 08/13/23 08:00 08/13/23 08:00 Micro: Microbiology 08/12/23 09:57 Blood Culture - Preliminary Blood NEGATIVE TO DATE 08/12/23 09:53 Urine Culture - Preliminary Urine,Clean Catch Yeast 08/12/23 09:53 Blood Culture - Preliminary Blood SPECIMEN COLLECTED 08/12/23 16:46 Blood Culture - Preliminary Blood SPECIMEN COLLECTED A&P Assessment and plan (1) ESRD (end stage renal disease) on dialysis: Plan 1. End-stage renal disease: On MWF schedule as outpatient, now presented with altered mental status and positive blood cultures. -s/p HD yesterday and may need to remove catheter depending on final cultures. 2. E faecalis bacteremia, on IV Vanco and meropenem, ID consult pending May need to remove tunneled catheter Await repeat culture results 3. Anemia: Status post CHUCK with HD yesterday 4. Sepsis, on pressors 5. History of A-fib on amiodarone and Eliquis Patient evaluated using audiovisual cart. Time spent 20 minutes. Attestations 2 Medical Necessity Statement*: per lois Coding Level of Care Code Acute Code for Chg Fwd Diagnoses ESRD (end stage renal disease) on dialysis N18.6; Z99.2
[2023-08-13 12:21] LABS: Glucose Point of Care 212 mg/dL (70-110)
[2023-08-13] MEDS: vancomycin 1,000 MG in sodium chloride 0.9% 250 ML 250 MG IV (16:15)
--- NOTE | 2023-08-13 16:44 | P.CONIM_ITS ---
Providers/Reason For Consult 2 Consulting Physician/Specialty*: Mike Hilton MD/ Cardiology Reason for Consult*: Rule out endocarditis Requesting Physician: Dr Albright Attending Physician: Lenny Montalvo MD Primary Care Provider: Misty Ibrahim History of Present Illness History of Present Illness Geronimo Barahona is a 62 year old male with past medical history of diabetes, end-stage renal disease, atrial fibrillation who has been admitted to with altered mental status and sepsis. He has E faecalis bacteremia. Transthoracic echocardiogram demonstrated suspicious findings on mitral and aortic valve. Cardiology consulted for transesophageal echocardiogram. Review of Systems 2 General: Reports: 10 or more systems reviewed and unremarkable except in HPI and below Medications/Allergies Home Medications Medication Instructions Recorded Confirmed Last Taken Type albuterol sulfate 2.5 mg/3 mL 2.5 mg inhalation Q4H PRN 10/03/22 08/12/23 Unknown History (0.083 %) solution for nebulization Shortness Of Breath amiodarone 200 mg tablet 200 mg PO QAM 10/03/22 08/12/23 08/12/23 History apixaban 5 mg tablet (Eliquis) 5 mg PO BID 03/11/23 08/12/23 08/12/23 History silver sulfadiazine 1 % topical 1 applic topical DAILY 03/11/23 08/12/23 08/11/23 History cream (SSD) epinephrine 0.3 mg/0.3 mL 0.3 mg (0.3 mL) IM Q10M PRN 03/17/23 08/12/23 Unknown Rx injection, auto-injector anaphylaxis #2 ea gabapentin 100 mg capsule 100 mg PO BID #60 caps 05/27/23 08/12/23 08/12/23 Rx metoprolol tartrate 50 mg tablet See Rx Instructions .Route .COMPLEX 06/05/23 08/12/23 08/11/23 History sennosides 8.6 mg-docusate sodium 1 tab PO DAILY PRN Constipation 06/05/23 08/12/23 Unknown History 50 mg tablet (Stool Softener-Laxative) acetaminophen 325 mg tablet 650 mg PO Q6H PRN Pain 08/12/23 08/12/23 08/04/23 History bisacodyl 10 mg rectal suppository 10 mg ID DAILY PRN Constipation 08/12/23 08/12/23 Unknown History cholecalciferol (vitamin D3) 25 25 mcg PO QAM 08/12/23 08/12/23 08/12/23 History mcg (1,000 unit) capsule (Vitamin D3) ergocalciferol (vitamin D2) 1,250 1,250 mcg PO Q7D 08/12/23 08/12/23 08/08/23 History mcg (50,000 unit) capsule hydrocodone 5 mg-acetaminophen 325 1 tab PO Q6H PRN Pain 08/12/23 08/12/23 08/12/23 History mg tablet insulin aspart U-100 100 unit/mL 6 unit SUBCUT TID 08/12/23 08/12/23 08/12/23 History (3 mL) subcutaneous pen (Novolog FlexPen U-100 Insulin aspart) insulin glargine 100 unit/mL (3 12 unit SUBCUT QPM 08/12/23 08/12/23 08/11/23 History mL) subcutaneous pen (Lantus Solostar U-100 Insulin) metoprolol tartrate 50 mg tablet 50 mg PO .@1800 08/12/23 08/12/23 08/11/23 History nystatin 100,000 unit/gram topical 1 applic topical DAILY 08/12/23 08/12/23 08/11/23 History powder vitamin B complex and vitamin C 1 cap PO DAILY 08/12/23 08/12/23 08/11/23 History no.20-folic acid 1 mg capsule (Renal Caps) Allergies Allergy/AdvReac Type Severity Reaction Status Date / Time amoxicillin [From Augmentin] Allergy Mild rash Verified 08/08/23 11:48 clavulanic acid Allergy Mild rash Verified 08/08/23 11:48 [From Augmentin] levofloxacin Allergy Mild rash Verified 08/08/23 11:48 Current Medications Generic Name Dose Route Start Last Admin Trade Name Freq PRN Reason Stop Dose Admin Hydrocodone Bitart/Acetaminophen 1 tab 08/12/23 16:06 08/13/23 16:16 Hydrocodone-Acetaminophen 5-325 Mg Tablet PO 1 tab Q6H PRN Administration Pain Amiodarone HCl 200 mg 08/13/23 06:00 08/13/23 06:18 Amiodarone 200 Mg Tablet PO 200 mg QAM JAIDEN Administration Heparin Sodium (Porcine) 5,000 unit 08/12/23 20:00 08/13/23 07:32 Heparin 5,000 Unit/Ml Inj 1 Ml SUBCUT 5,000 unit Q12H JAIDEN Administration norepinephrine 4 mg in 250 mls @ 0 mls/hr 08/12/23 10:00 08/13/23 12:00 Levophed IV 0 mcg/min .Q0M JAIDEN 0 mls/hr Titration Protocol Per Protocol Vancomycin HCl 1,000 mg/ 250 mls @ 250 mls/hr 08/13/23 16:00 08/13/23 16:15 Sodium Chloride IV 250 mls/hr Q48H JAIDEN Administration Protocol Meropenem 500 mg/ Sodium 50 mls @ 100 mls/hr 08/12/23 19:00 08/12/23 21:12 Chloride IV 100 mls/hr Q24H JAIDEN Administration Protocol Insulin Human Lispro 0 unit 08/12/23 18:00 08/13/23 12:34 Insulin Lispro 100 Unit/1 Ml SUBCUT 4 unit WM&BEDTIME JAIDEN Administration Protocol Pantoprazole Sodium 40 mg 08/12/23 16:00 08/13/23 16:16 Pantoprazole 40 Mg Sdv IVP 40 mg Q12H JAIDEN Administration Sodium Chloride 50 ml 08/13/23 02:13 08/13/23 04:35 Sodium Chloride 0.9% 100 Ml Bag IV 08/14/23 02:13 50 ml PRN PRN Administration Blood transfusion prime and flush PFSH Acute 2 PFSH: Medical History (Updated 08/14/23 @ 09:53 by Mike Hilton M.D) Afib ESRD (end stage renal disease) on dialysis Hyponatremia DM2 (diabetes mellitus, type 2) Pressure ulcer of left leg, stage 2 Pressure ulcer of right leg, stage 2 Wound of left foot Excoriation of groin Excoriation of abdomen Wound of left lower extremity Pressure ulcer of left buttock, stage 2 Pressure ulcer of right buttock, stage 2 Wound of right lower extremity Lymphedema Stasis dermatitis Pressure sore on buttocks Inability to perform activities of daily living Kidney dysfunction Fluid overload Cellulitis Hemodialysis status Temporary dialysis catheter placement Acute kidney failure Bradycardia Anasarca Bilateral lower leg cellulitis Metabolic acidosis Hyperkalemia DKA (diabetic ketoacidosis) Falls Generalized weakness FRANCISCO (acute kidney injury) CHF (congestive heart failure) Chronic respiratory failure with hypoxia COPD (chronic obstructive pulmonary disease) Social History Smoking and tobacco/nicotine status: former use of tobacco/nicotine Vitals/I&O/Wt Last Vital Signs Temp 97 F L 08/13/23 13:00 Pulse 77 08/13/23 14:20 Resp 16 08/13/23 14:20 BP 121/52 08/13/23 14:20 Pulse Ox 99 08/13/23 14:20 O2 Del Method Nasal Cannula 08/13/23 14:20 O2 Flow Rate 2 08/13/23 14:20 08/13/23 08/13/23 08/13/23 06:59 14:59 22:59 Intake Total 408.875 / 1112.375 504.75 / 504.75 Output Total 500 / 4000 Balance -91.125 / -2887.625 504.75 / 504.75 Weight last 48 hrs Weight 259 lb 7 oz Weight 259 lb 7 oz Weight 259 lb 7.745 oz Weight 275 lb Physical Exam 2 Narrative: GENERAL: Patient is alert, awake and oriented x3. [] NECK: No jugular vein distension. [] HEENT: No cyanosis. No icterus. No pallor. [] HEART: Regular S1 and S2. Grade 2/6 systolic murmur LUNGS: Clear to auscultate bilaterally. [] CENTRAL NERVOUS SYSTEM: Grossly nonfocal. [] EXTREMITIES: Lower extremities with no edema Urinary Catheter Management: Fuentes: Cath Placed During This Visit: yes Reason for Continuing Indwelling Catheter: Accurate Measurement of Urinary Output in Critically Ill Patients Urinary Catheter Date of Insertion: 08/12/23 Urinary Catheter Time of Insertion: 09:52 Data 08/14/23 05:29 08/14/23 05:29 Micro: Microbiology 08/12/23 09:57 Blood Culture - Preliminary Blood NEGATIVE TO DATE 08/12/23 09:53 Urine Culture - Preliminary Urine,Clean Catch Yeast 08/12/23 09:53 Blood Culture - Preliminary Blood SPECIMEN COLLECTED 08/12/23 16:46 Blood Culture - Preliminary Blood SPECIMEN COLLECTED A&P Assessment and plan (1) Sepsis: (2) DM2 (diabetes mellitus, type 2): (3) Hyponatremia: (4) Afib: Plan Patient has bacteremia with E faecalis and sepsis. Transthoracic echocardiogram is suspicious for possible endocarditis. We will proceed with transesophageal echocardiogram tomorrow. Risks and benefits of the procedure discussed with the patient. NPO past midnight. Thank you for involving us with care of this patient. We will continue to follow. Please call with questions. Consult Attestations 2 Medical Necessity Statement: Care expected to cross 2 midnights. Coding Level of Care Code Acute Code for g Fwd Diagnoses Sepsis A41.9 DM2 (diabetes mellitus, type 2) E11.9 Hyponatremia E87.1 Afib I48.91
[2023-08-13 17:12] LABS: Glucose Point of Care 150 mg/dL (70-110)
--- NOTE | 2023-08-13 17:19 | P.HP_ITS ---
Providers/Chief Complaint 2 Admitting Physician: Lenny Montalvo MD Primary Care Provider: Misty Ibrahim Chief Complaint: AMS History of Present Illness Geronimo Barahona is a 62 year old male Medications/Allergies Home Medications Medication Instructions Recorded Confirmed Last Taken Type albuterol sulfate 2.5 mg/3 mL 2.5 mg inhalation Q4H PRN 10/03/22 08/12/23 Unknown History (0.083 %) solution for nebulization Shortness Of Breath amiodarone 200 mg tablet 200 mg PO QAM 10/03/22 08/12/23 08/12/23 History apixaban 5 mg tablet (Eliquis) 5 mg PO BID 03/11/23 08/12/23 08/12/23 History silver sulfadiazine 1 % topical 1 applic topical DAILY 03/11/23 08/12/23 08/11/23 History cream (SSD) epinephrine 0.3 mg/0.3 mL 0.3 mg (0.3 mL) IM Q10M PRN 03/17/23 08/12/23 Unknown Rx injection, auto-injector anaphylaxis #2 ea gabapentin 100 mg capsule 100 mg PO BID #60 caps 05/27/23 08/12/23 08/12/23 Rx metoprolol tartrate 50 mg tablet See Rx Instructions .Route .COMPLEX 06/05/23 08/12/23 08/11/23 History sennosides 8.6 mg-docusate sodium 1 tab PO DAILY PRN Constipation 06/05/23 08/12/23 Unknown History 50 mg tablet (Stool Softener-Laxative) acetaminophen 325 mg tablet 650 mg PO Q6H PRN Pain 08/12/23 08/12/23 08/04/23 History bisacodyl 10 mg rectal suppository 10 mg IA DAILY PRN Constipation 08/12/23 08/12/23 Unknown History cholecalciferol (vitamin D3) 25 25 mcg PO QAM 08/12/23 08/12/23 08/12/23 History mcg (1,000 unit) capsule (Vitamin D3) ergocalciferol (vitamin D2) 1,250 1,250 mcg PO Q7D 08/12/23 08/12/23 08/08/23 History mcg (50,000 unit) capsule hydrocodone 5 mg-acetaminophen 325 1 tab PO Q6H PRN Pain 08/12/23 08/12/23 08/12/23 History mg tablet insulin aspart U-100 100 unit/mL 6 unit SUBCUT TID 08/12/23 08/12/23 08/12/23 History (3 mL) subcutaneous pen (Novolog FlexPen U-100 Insulin aspart) insulin glargine 100 unit/mL (3 12 unit SUBCUT QPM 08/12/23 08/12/23 08/11/23 History mL) subcutaneous pen (Lantus Solostar U-100 Insulin) metoprolol tartrate 50 mg tablet 50 mg PO .@1800 08/12/23 08/12/23 08/11/23 History nystatin 100,000 unit/gram topical 1 applic topical DAILY 08/12/23 08/12/23 08/11/23 History powder vitamin B complex and vitamin C 1 cap PO DAILY 08/12/23 08/12/23 08/11/23 History no.20-folic acid 1 mg capsule (Renal Caps) Allergies Allergy/AdvReac Type Severity Reaction Status Date / Time amoxicillin [From Augmentin] Allergy Mild rash Verified 08/08/23 11:48 clavulanic acid Allergy Mild rash Verified 08/08/23 11:48 [From Augmentin] levofloxacin Allergy Mild rash Verified 08/08/23 11:48 PFSH Acute 2 PFSH: Medical History (Updated 08/12/23 @ 14:05 by Dean Shaw DO) ESRD (end stage renal disease) on dialysis Hyponatremia DM2 (diabetes mellitus, type 2) Pressure ulcer of left leg, stage 2 Pressure ulcer of right leg, stage 2 Wound of left foot Excoriation of groin Excoriation of abdomen Wound of left lower extremity Pressure ulcer of left buttock, stage 2 Pressure ulcer of right buttock, stage 2 Wound of right lower extremity Lymphedema Stasis dermatitis Pressure sore on buttocks Inability to perform activities of daily living Kidney dysfunction Fluid overload Cellulitis Hemodialysis status Temporary dialysis catheter placement Acute kidney failure Bradycardia Afib Anasarca Bilateral lower leg cellulitis Metabolic acidosis Hyperkalemia DKA (diabetic ketoacidosis) Falls Generalized weakness FRANCISCO (acute kidney injury) CHF (congestive heart failure) Chronic respiratory failure with hypoxia COPD (chronic obstructive pulmonary disease) Social History Smoking and tobacco/nicotine status: former use of tobacco/nicotine Vitals/I&O/Wt Last Vital Signs Temp 99.9 F H 08/13/23 17:00 Pulse 78 08/13/23 17:00 Resp 23 H 08/13/23 17:00 BP 81/30 08/13/23 17:00 Pulse Ox 97 08/13/23 17:00 O2 Del Method Nasal Cannula 08/13/23 17:00 O2 Flow Rate 2 08/13/23 17:00 08/13/23 08/13/23 08/13/23 06:59 14:59 22:59 Intake Total 408.875 / 1112.375 504.75 / 504.75 50 / 554.75 Output Total 500 / 4000 50 / 50 Balance -91.125 / -2887.625 504.75 / 504.75 0 / 504.75 Weight last 48 hrs Weight 117.679 kg Weight 117.679 kg Weight 117.7 kg Weight 124.738 kg Physical Exam 2 Urinary Catheter Management: Fuentes: Cath Placed During This Visit: yes Reason for Continuing Indwelling Catheter: Accurate Measurement of Urinary Output in Critically Ill Patients Urinary Catheter Date of Insertion: 08/12/23 Urinary Catheter Time of Insertion: 09:52 Data 08/13/23 08:00 08/13/23 08:00 Micro: Microbiology 08/12/23 09:57 Blood Culture - Preliminary Blood NEGATIVE TO DATE 08/12/23 09:53 Urine Culture - Preliminary Urine,Clean Catch Yeast 08/12/23 09:53 Blood Culture - Preliminary Blood SPECIMEN COLLECTED 08/12/23 16:46 Blood Culture - Preliminary Blood SPECIMEN COLLECTED Coding Level of Care Code Acute Code for [facility]
--- NOTE | 2023-08-13 17:30 | PM.CONSULT ---
Providers/Reason For Consult Consulting Physician/Specialty*: Jen Albright Md/ infectious Disease Reason for Consult*: endocarditis Requesting Physician: Lenny Montalvo MD Attending Physician: Lenny Montalvo MD Primary Care Provider: Misty Ibrahim History of Present Illness History of Present Illness Geronimo Barahona is a 62 year old male with past medical history of COPD, type 2 diabetes, CHF, A-fib, cellulitis, ESRD on dialysis, multiple pressure ulcers presented to the emergency department on August 12, 2023 from [facility] with altered mental status. Patient is unsure why he was admitted but reports a recent history of UTI. Review of chart shows that patient was in the emergency room on August 01 for evaluation of fever and acute cystitis. His blood cultures were drawn which later resulted a few days later as positive for Enterococcus faecalis. His urine culture also showed Enterococcus faecalis and Proteus mirabilis. He had also been in the ER on August 08, 2023 for hemoglobin of 6.5 and received a blood transfusion. Review of medication list from this day shows that patient was on cephalexin 500 mg p.o. 3 times daily, which was presumptive treatment for the UTI diagnosed previously. He started hemodialysis in May of this year and has an HD catheter in place since then. He denies any nausea vomiting diarrhea abdominal pain. Denies any chest pain dyspnea palpitations syncope. However he is not a very reliable historian. He is currently in the ICU, on pressor support with Levophed, currently at 2 mics, titrated down from 6 mics. Currently on treatment with meropenem and vancomycin. Blood cultures from the current admission are pending. Review of Systems General: Reports: 10 or more systems reviewed and unremarkable except in HPI and below Const: Denies: fever(s), chills or body aches Eyes: Denies: change in vision, blurry vision or photophobia ENMT: Reports: hoarseness; Denies: throat pain, enlarged tonsils, odynophagia or nasal congestion Card: Denies: chest pain, palpitations, irregular heart rhythm, edema, swelling of feet/ankles, lightheadedness, pre-syncope, dyspnea on exertion or orthopnea Resp: Denies: dyspnea, productive cough, non-productive cough, wheezing, stridor, pain on inspiration, change in phlegm color, hemoptysis or chest congestion GI: Denies: abdominal pain, nausea, vomiting, hematemesis, coffee ground emesis, dysphagia, heartburn, diarrhea, constipation, GI cramping, change in stool character, hematochezia or melena : Denies: flank pain, dysuria, urinary frequency, urinary urgency, urinary hesitancy or hematuria Musc: Denies: neck pain, back pain, extremity pain, joint swelling, joint warmth or deformity Neuro: Denies: headache(s), numbness in extremities, weakness in extremities, sensory changes, difficulty walking, frequent falls, dizziness, vertigo, behavioral changes, Slurred speech present or seizure-like activity Psych: Denies: anxiety, depression, suicidal ideation or homicidal ideation Endo: Denies: polyuria, polydipsia, tired all the time, cold intolerance or hot flashes Jerome/Lymph: Denies: easy bruising or easy bleeding Medications/Allergies Home Medications Medication Instructions Recorded Confirmed Last Taken Type albuterol sulfate 2.5 mg/3 mL 2.5 mg inhalation Q4H PRN 10/03/22 08/12/23 Unknown History (0.083 %) solution for nebulization Shortness Of Breath amiodarone 200 mg tablet 200 mg PO QAM 10/03/22 08/12/23 08/12/23 History apixaban 5 mg tablet (Eliquis) 5 mg PO BID 03/11/23 08/12/23 08/12/23 History silver sulfadiazine 1 % topical 1 applic topical DAILY 03/11/23 08/12/23 08/11/23 History cream (SSD) epinephrine 0.3 mg/0.3 mL 0.3 mg (0.3 mL) IM Q10M PRN 03/17/23 08/12/23 Unknown Rx injection, auto-injector anaphylaxis #2 ea gabapentin 100 mg capsule 100 mg PO BID #60 caps 05/27/23 08/12/23 08/12/23 Rx metoprolol tartrate 50 mg tablet See Rx Instructions .Route .COMPLEX 06/05/23 08/12/23 08/11/23 History sennosides 8.6 mg-docusate sodium 1 tab PO DAILY PRN Constipation 06/05/23 08/12/23 Unknown History 50 mg tablet (Stool Softener-Laxative) acetaminophen 325 mg tablet 650 mg PO Q6H PRN Pain 08/12/23 08/12/23 08/04/23 History bisacodyl 10 mg rectal suppository 10 mg AR DAILY PRN Constipation 08/12/23 08/12/23 Unknown History cholecalciferol (vitamin D3) 25 25 mcg PO QAM 08/12/23 08/12/23 08/12/23 History mcg (1,000 unit) capsule (Vitamin D3) ergocalciferol (vitamin D2) 1,250 1,250 mcg PO Q7D 08/12/23 08/12/23 08/08/23 History mcg (50,000 unit) capsule hydrocodone 5 mg-acetaminophen 325 1 tab PO Q6H PRN Pain 08/12/23 08/12/23 08/12/23 History mg tablet insulin aspart U-100 100 unit/mL 6 unit SUBCUT TID 08/12/23 08/12/23 08/12/23 History (3 mL) subcutaneous pen (Novolog FlexPen U-100 Insulin aspart) insulin glargine 100 unit/mL (3 12 unit SUBCUT QPM 08/12/23 08/12/23 08/11/23 History mL) subcutaneous pen (Lantus Solostar U-100 Insulin) metoprolol tartrate 50 mg tablet 50 mg PO .@1800 08/12/23 08/12/23 08/11/23 History nystatin 100,000 unit/gram topical 1 applic topical DAILY 08/12/23 08/12/23 08/11/23 History powder vitamin B complex and vitamin C 1 cap PO DAILY 08/12/23 08/12/23 08/11/23 History no.20-folic acid 1 mg capsule (Renal Caps) Allergies Allergy/AdvReac Type Severity Reaction Status Date / Time amoxicillin [From Augmentin] Allergy Mild rash Verified 08/08/23 11:48 clavulanic acid Allergy Mild rash Verified 08/08/23 11:48 [From Augmentin] levofloxacin Allergy Mild rash Verified 08/08/23 11:48 Current Medications Generic Name Dose Route Start Last Admin Trade Name Freq PRN Reason Stop Dose Admin Hydrocodone Bitart/Acetaminophen 1 tab 08/12/23 16:06 08/14/23 04:29 Hydrocodone-Acetaminophen 5-325 Mg Tablet PO 1 tab Q6H PRN Administration Pain Amiodarone HCl 200 mg 08/13/23 06:00 08/14/23 05:49 Amiodarone 200 Mg Tablet PO 200 mg QAM JAIDEN Administration Heparin Sodium (Porcine) 5,000 unit 08/12/23 20:00 08/13/23 19:54 Heparin 5,000 Unit/Ml Inj 1 Ml SUBCUT 5,000 unit Q12H JAIDEN Administration norepinephrine 4 mg in 250 mls @ 0 mls/hr 08/12/23 10:00 08/13/23 20:10 Levophed IV 2 mcg/min .Q0M JAIDEN 7.5 mls/hr Titration Protocol Per Protocol Insulin Human Lispro 0 unit 08/12/23 18:00 08/13/23 22:20 Insulin Lispro 100 Unit/1 Ml SUBCUT 4 unit WM&BEDTIME JAIDEN Administration Protocol Pantoprazole Sodium 40 mg 08/12/23 16:00 08/14/23 04:22 Pantoprazole 40 Mg Sdv IVP 40 mg Q12H JAIDEN Administration PFSH Acute PFSH: Medical History Afib ESRD (end stage renal disease) on dialysis Hyponatremia DM2 (diabetes mellitus, type 2) Pressure ulcer of left leg, stage 2 Pressure ulcer of right leg, stage 2 Wound of left foot Excoriation of groin Excoriation of abdomen Wound of left lower extremity Pressure ulcer of left buttock, stage 2 Pressure ulcer of right buttock, stage 2 Wound of right lower extremity Lymphedema Stasis dermatitis Pressure sore on buttocks Inability to perform activities of daily living Kidney dysfunction Fluid overload Cellulitis Hemodialysis status Temporary dialysis catheter placement Acute kidney failure Bradycardia Anasarca Bilateral lower leg cellulitis Metabolic acidosis Hyperkalemia DKA (diabetic ketoacidosis) Falls Generalized weakness FRANCISCO (acute kidney injury) CHF (congestive heart failure) Chronic respiratory failure with hypoxia COPD (chronic obstructive pulmonary disease) Social History Smoking and tobacco/nicotine status: former use of tobacco/nicotine Vitals/I&O/Wt Last Vital Signs Temp 97.8 F 08/14/23 06:20 Pulse 68 08/14/23 06:20 Resp 14 08/14/23 06:20 BP 105/51 08/14/23 06:20 Pulse Ox 97 08/14/23 06:20 O2 Del Method Nasal Cannula 08/14/23 06:20 O2 Flow Rate 3 08/14/23 06:20 08/13/23 08/14/23 08/14/23 22:59 06:59 14:59 Intake Total 63.875 / 568.625 Output Total 75 / 75 Balance -11.125 / 493.625 Weight last 48 hrs Weight 118.132 kg Weight 118.132 kg Weight 117.679 kg Weight 117.679 kg Weight 117.7 kg Physical Exam Narrative: General: No acute distress, AO x3 HEENT: PERRLA, pupils bilaterally equal and reactive, pallors not present Chest: Normal vesicular breath sounds, no added sounds, equal good air entry bilaterally CVS: S1-S2 regular, no murmurs, no tachycardia, no gallops, no rubs Abdomen: Soft, nontender, no organomegaly, bowel sounds present Neuro: Changes of stasis dermatitis bilateral lower extremities. Urinary Catheter Management: Fuentes: Cath Placed During This Visit: yes Reason for Continuing Indwelling Catheter: Accurate Measurement of Urinary Output in Critically Ill Patients Urinary Catheter Date of Insertion: 08/12/23 Urinary Catheter Time of Insertion: 09:52 Data 08/14/23 05:29 08/14/23 05:29 Other Labs: Ordering Provider/Ordering MD: Dean Shaw DO Date of Service: 08/12/23 Procedure(s): CT head wo con* [id number] Accession Number(s): [id number] Report Number: [id number] WS: [id number] CT HEAD TECHNIQUE: Noncontrast CT of the head obtained from the skullbase to the vertex. CLINICAL INFORMATION: AMS COMPARISON: CT 05/07/2023 DLP: 1127.[address] scans at [facility] use at least one of these dose optimization techniques: automated exposure control; mA and/or kV adjustment per patient size (includes targeted exams where dose is matched to clinical indication); or iterative reconstruction. FINDINGS: No evidence of intracranial hemorrhage or mass effect. Ventricular system and basal cisterns are patent. Moderate small vessel changes with moderate parenchymal volume loss. No extra-axial fluid collections. No evidence of mass or mass effect. Chronic lacunar infarct RIGHT arriaga radiata unchanged. Intracranial vascular calcification. Tiny chronic lacunar infarct LEFT basal ganglia. Chronic infarct with encephalomalacia RIGHT parasagittal parietal occipital junction and RIGHT parietal lobe posteriorly Inspissated secretions LEFT maxillary sinus. Prior postoperative changes LEFT sphenoid wing. IMPRESSION: 1. No evidence of intracranial hemorrhage or mass effect. 2. No acute intracranial findings. XR/XR chest 1V portable [id number] IMPRESSION: Findings most consistent with pulmonary vascular congestion and interstitial edema. Superimposed airspace process can not be excluded. CT/CT kidney stone [id number] IMPRESSION: 1. Limited exam due to lack of contrast and artifacts with comparison CT 05/13/2023. 2. Slight interval worsening of multilevel vertebral compression deformities. No significant subluxation or retropulsed element. 3. No hydronephrosis or obstructing calculi. Otherwise somewhat limited urinary tract/bladder assessment. Follow-up exam with IV contrast and cystoscopy may be helpful if hematuria persists. 4. Cholelithiasis and other nonacute findings in the lower thorax and abdomen as described above. Coronary calcification. Micro: Microbiology 08/12/23 18:45 Occult Blood (FIT) - Final Stool - Stool Aspirate 08/12/23 16:46 Blood Culture - Preliminary Blood NEGATIVE TO DATE 08/12/23 09:57 Blood Culture - Preliminary Blood NEGATIVE TO DATE 08/12/23 09:53 Urine Culture - Preliminary Urine,Clean Catch Yeast Spec #: [id number] Beatrice: 08/02/23 Status: COMP Req #: [id number] Recd: 08/02/[address]: Cain Holt DO Src: Blood SpDesc: Ordered: Bcult Procedure Result Verified Site Blood Culture Final 08/05/23-1643 3 OF 3 BOTTLES POSITIVE DIRECT GRAM STAIN: GRAM POSITIVE COCCI IN PAIRS AND CHAINS Organism 1 Enterococcus faecalis Growth 3 BOTTLES POSITIVE Gram Stain Charge Charge for Gram Stain Blood Culture Preliminary (changed) 08/03/23-1154 3 OF 3 BOTTLES POSITIVE DIRECT GRAM STAIN: GRAM POSITIVE COCCI IN PAIRS AND CHAINS RESULTS TO FOLLOW Organism 1 Enterococcus faecalis Growth 3 BOTTLES POSITIVE Gram Stain Charge Charge for Gram Stain Spec #: [id number] Beatrice: 08/02/23 Status: COMP Req #: [id number] Recd: 08/02/[address]: Cain Holt DO Src: Blood SpDesc: Ordered: Bcult Procedure Result Verified Site Blood Culture Final 08/05/23-1643 3 OF 3 BOTTLES POSITIVE DIRECT GRAM STAIN: GRAM POSITIVE COCCI IN PAIRS AND CHAINS IDENTIFICATION BY DIRECT PCR Organism 1 Enterococcus faecalis Growth 3 BOTTLES Gram Stain Charge Charge for Gram Stain CRITICAL RESULT YES/NO: YES CRITICAL CALLED BY: SOCORRO TO AND READ BACK BY: [employer] DATE: 08/03/23 TIME: 1152 E faecalis M.I.C. RX --------- ------ * Ampicillin <=2 S * Linezolid 2 S * Penicillin 8 S Vancomycin 2 S Gentamicin Synergy Screen >500 R Daptomycin 1 S Enterococcus faecalis: Gram Pos Combo 33-MScan Gentamicin Synergy Screen R Blood Culture Preliminary (changed) 08/03/23-115 3 OF 3 BOTTLES POSITIVE DIRECT GRAM STAIN: GRAM POSITIVE COCCI IN PAIRS AND CHAINS IDENTIFICATION BY DIRECT PCR RESULTS TO FOLLOW Organism 1 Enterococcus faecalis Growth 3 BOTTLES Gram Stain Charge Charge for Gram Stain CRITICAL RESULT YES/NO: YES CRITICAL CALLED BY: SOCORRO TO AND READ BACK BY: [employer] DATE: 08/03/23 TIME: 1152 Spec #: [id number] Beatrice: 08/02/23 Status: COMP Req #: [id number] Recd: 08/02/[address]: Cain Holt DO Src: Urine CC SpDesc: Ordered: UC Procedure Result Verified Site Urine Culture Final 08/05/23-1316 Organism 1 Klebsiella pneumonia esbl [place] Count >100,000 CFU/ml Organism 2 Enterococcus faecalis [place] Count >100,000 CFU/ml DAY 2 Klepnesbl E faecalis M.I.C. RX M.I.C. RX --------- ------ --------- ------ * Amikacin <=16 S * Amoxicillin/Clavulanate <=8/4 S * Ampicillin >16 R <=2 S * Ampicillin/Sulbactam 16/8 I * Aztreonam 16 R * Cefepime >16 R * Ceftriaxone >32 R * Cefuroxime >16 R * Ciprofloxacin <=1 S >2 R * Gentamicin <=2 S * Imipenem <=1 S * Levofloxacin <=2 S >4 R * Linezolid 2 S * Nitrofurantoin 64 I <=32 S * Penicillin 8 S * Tetracycline >8 R * Trimethoprim/Sulfamethoxazole >2/38 R Vancomycin 2 S * Piperacillin/Tazobactam <=16 S Daptomycin 1 S Urine Culture Preliminary (changed) 08/04/23-32 Organism 1 Gram Negative Rods [place] Count >100,000 CFU/ml Date of Service: 08/12/23 Procedure(s): CV. echo complete* [id number] TTE CONCLUSIONS LV systolic function is normal with EF of 60 to 65%. Mitral valve is thickened. Mobile echogenic structure seen in close proximity to mitral valve. Could be can be calcified chordae versus vegetation. Mild mitral regurgitation. Mild mitral stenosis. Aortic valve is thickened. Vegetation cannot be ruled out. Mild tricuspid regurgitation. Mild pulmonary hypertension IVC appears dilated. Accurate comparison with prior studies not possible because of limited quality prior studies. A&P Assessment and plan (1) Endocarditis: (2) Enterococcus faecalis infection: Plan 62-year-old male with multiple comorbidities as listed above presenting to the hospital with septic shock after recently having been diagnosed with a UTI and Enterococcus faecalis bacteremia. Review of chart shows positive blood cultures for Enterococcus faecalis on August 02, 2023 as listed above. Urine culture from the same day showing Klebsiella pneumonia ESBL and Enterococcus faecalis. Patient has been on outpatient treatment with cephalexin 500 mg 3 times daily since August 01. Clinical worsening now, admission with septic shock. Blood cultures on this current admission currently remain pending. Urine culture is additionally pending, thus far showing yeast species. Anticipate persisting bacteremia as has not received directed antibiotics for the same. Transthoracic echocardiogram showing Mobile echogenic structure seen in close proximity to mitral valve, concerning for endocarditis. Recommend to obtain FELICITY. Potentially HD catheter may be infected - check port cx - okay to run HD via current cath tomorrow Continue meropenem and vancomycin for now while pending above evaluation will follow Consult Attestations Medical Necessity Statement: per admitting Coding Level of Care Code Acute Code for Chg Fwd High MDM includes number and complexity of problems actively addressed during encounter, amount and/or complexity of data reviewed/ordered and described risk of complication, morbidity or mortality of management as documented Diagnoses Endocarditis I38 Enterococcus faecalis infection A49.8
--- NOTE | 2023-08-13 17:40 | PC.NURSE ---
Shift SUmmary: uneventful shift. patient was up to a chair for about half of the day. Titrated off of levophed. Central line dressing changed. NPO at midnight for FELICITY tommorow.
[2023-08-13] MEDS: meropenem 500 MG in sodium chloride 0.9% (plus) 50 ML 100 MG IV (19:53)
[2023-08-13 21:51] LABS: Glucose Point of Care 213 mg/dL (70-110)
--- NOTE | 2023-08-13 22:52 | PC.NURSE ---
Levophed drip: At the beginning of this nurse's shift the levophed was paused. MAr was updated to reflect this.
[2023-08-14] VITALS (56 sets, daily range): BP systolic 91–131; BP diastolic 39–82; PULSE 65–91; RESP 10–25; TEMP 36.6–37; O2SAT 90–100; BMI 35.3
[2023-08-14] MEDS: pantoprazole 40 mg SDV IVP ×2 (04:22→14:49)
[2023-08-14] MEDS: HYDROcodone-acetaminophen 5-325 mg Tablet 1 TAB PO ×2 (04:29→19:26)
[2023-08-14] MEDS: amiodarone 200 mg Tablet PO (05:49)
[2023-08-14 05:58] LABS: Basophils % 0.5 %; Eosinophils # 0.1 10^3/uL (0.0-0.8); Eosinophils % 2.5 %; Hematocrit 24.8 % (37-53); Lymphocytes # 0.5 10^3/uL (0.8-4.8); Lymphocytes % 8.8 %; Mean Corpuscular HGB Conc 30.6 g/dL (30-55); Mean Corpuscular Hemoglobin 29.1 pg (27-33); Monocytes # 0.5 10^3/uL (0.2-0.9); Monocytes % 8.8 %; Neutrophils % 78.7 %; Nucleated Red Blood Cells % 0 %; Platelet Count 202 10^3/cmm (157-399); Red Blood Count 2.61 10^6/uL (3.85-5.65); Red Cell Distribution Width 18.2 % (12.1-15.1); White Blood Count 5.71 10^3/uL (3.29-11.43)
[2023-08-14 06:30] LABS: Alanine Aminotransferase 8 U/L (0-41); Albumin Level 2.7 g/dL (3.5-5.2); Alkaline Phosphatase 156 U/L (40-130); Anion Gap 15.7 (5-19); Aspartate Amino Transferase 12 U/L (0-40); Blood Urea Nitrogen 33 mg/dL (8-23); Calcium 8.3 mg/dL (8.5-10.5); Carbon Dioxide 27 mmol/L (22-29); Chloride 97 mmol/L (98-107); Creatinine Clr Calc Pharmacy 23.6901; Globulin 3.7 g/dL (1.3-4.6); Glomerular Filtration Rate 13.8 mL/min (90-130); Glucose 178 mg/dL (65-115); Osmolality Calculated 294 mOsm/kg (285-295); Potassium 3.7 mmol/L (3.5-5.1); Sodium 136 mmol/L (136-145); Total Bilirubin 0.6 mg/dL (0.15-1.2); Total Protein 6.4 g/dL (6.6-8.7)
--- NOTE | 2023-08-14 08:00 | USCV_ITS ---
Geronimo Barahona Age: 62 Gender: M : 1960 Exam Date: 08/14/2023 08:19 Ordering Phys: Jen Albright MD Technologist: [place]am [place] [facility] [place]: veg BP: / HR: Rhythm: Sinus Technical Quality: Excellent MEASUREMENTS (Male / Female) Normal Values Medications Complications None Proc. Components After anesthesia team sedated the patient, we proceeded with advancing FELICITY probe. FINDINGS Left Ventricle Normal in size. LV systolic function is normal with EF of 55- 60%. No regional wall motion abnormalities. Right Ventricle Normal in size Right Atrium Normal in size Left Atrium Dilated LA Appendage No left atrial appendage thrombus. IA Septum Grossly normal Mitral Valve There is 1.7 x 1.1 cm mobile, echogenic mass seen on atrial aspect of posterior mitral leaflet. This is consistent with vegetation. On atrial aspect of anterior leaflet base, a small echogenic structure consistent with vegetation is seen. Mild to moderate mitral regurgitation noted. Aortic Valve Aortic valve is thickened. There is an echogenic mass seen on ventricular aspect of aortic valve measuring 1.48 cm in largest dimension. This is consistent with aortic valve vegetation. Tricuspid Valve No vegetation seen Pulmonic Valve No vegetation seen Pericardium Normal Aorta Mild atherosclerotic plaque CONCLUSIONS LV systolic function is normal with EF 55 to 60%. Left atrial dilation Large sized vegetation noted on the atrial aspect of posterior mitral valve leaflet. Small sized vegetation seen on atrial aspect of anterior mitral valve leaflet. Mild to moderate mitral regurgitation Large sized vegetation noted on the ventricular aspect of aortic valve. Mild aortic atherosclerotic plaque. Mike Hilton MD (Electronically Signed) Final Date: 14 August 2023 12:13 S
--- NOTE | 2023-08-14 08:08 | W.PM.OPSUD ---
Surgery/Procedure H&P Update DATE OF PROCEDURE: August 14, 2023 DATE H&P PERFORMED: 08/13/23 H&P UPDATE INFORMATION: I have reviewed H&P completed within last 30 days, I have examined patient prior to procedure and No changes to prior documentation PREOP DIAGNOSIS: Bacteremia/rule out endocarditis PRIMARY INDICATION FOR PROCEDURE: Bacteremia/rule out endocarditis PLANNED PROCEDURE: Transesophageal echocardiogram Anesthesia team available for sedation
--- NOTE | 2023-08-14 08:13 | ANES.PREANE2 ---
Pre-Anesthetic Assessment Height/Weight: Height 1.83 m Weight 118.132 kg Temp Pulse Resp BP Pulse Ox O2 Del Method O2 Flow Rate 97.8 F 68 14 105/51 97 Nasal Cannula 3 08/14/23 06:20 08/14/23 06:20 08/14/23 06:20 08/14/23 06:20 08/14/23 06:20 08/14/23 06:20 08/14/23 06:20 Preop Diagnosis: Bacteremia/rule out endocarditis FELICITY Familial anesthetic complications: None Was Beta Raf taken within 24 hours: Yes Was Clonidine taken within 24 hours: N/A Last intake: > 8 hrs Social No alcohol and No tobacco Exam alert, oriented x 3, clear to auscultation bilaterally and regular rate & rhythm Airway Mallampati: Class IV Dentition: full CV/HEM Anemia bacteremia ESRD Metabolic hyponatremia Anesthetic Plan ASA status: 4 Anesthesia: MAC Risk of > 500 ml blood loss (7ml/kg in children): No Medications/Allergies Home Medications Medication Instructions Recorded Confirmed Last Taken Type albuterol sulfate 2.5 mg/3 mL 2.5 mg inhalation Q4H PRN 10/03/22 08/12/23 Unknown History (0.083 %) solution for nebulization Shortness Of Breath amiodarone 200 mg tablet 200 mg PO QAM 10/03/22 08/12/23 08/12/23 History apixaban 5 mg tablet (Eliquis) 5 mg PO BID 03/11/23 08/12/23 08/12/23 History silver sulfadiazine 1 % topical 1 applic topical DAILY 03/11/23 08/12/23 08/11/23 History cream (SSD) epinephrine 0.3 mg/0.3 mL 0.3 mg (0.3 mL) IM Q10M PRN 03/17/23 08/12/23 Unknown Rx injection, auto-injector anaphylaxis #2 ea gabapentin 100 mg capsule 100 mg PO BID #60 caps 05/27/23 08/12/23 08/12/23 Rx metoprolol tartrate 50 mg tablet See Rx Instructions .Route .COMPLEX 06/05/23 08/12/23 08/11/23 History sennosides 8.6 mg-docusate sodium 1 tab PO DAILY PRN Constipation 06/05/23 08/12/23 Unknown History 50 mg tablet (Stool Softener-Laxative) acetaminophen 325 mg tablet 650 mg PO Q6H PRN Pain 08/12/23 08/12/23 08/04/23 History bisacodyl 10 mg rectal suppository 10 mg MT DAILY PRN Constipation 08/12/23 08/12/23 Unknown History cholecalciferol (vitamin D3) 25 25 mcg PO QAM 08/12/23 08/12/23 08/12/23 History mcg (1,000 unit) capsule (Vitamin D3) ergocalciferol (vitamin D2) 1,250 1,250 mcg PO Q7D 08/12/23 08/12/23 08/08/23 History mcg (50,000 unit) capsule hydrocodone 5 mg-acetaminophen 325 1 tab PO Q6H PRN Pain 08/12/23 08/12/23 08/12/23 History mg tablet insulin aspart U-100 100 unit/mL 6 unit SUBCUT TID 08/12/23 08/12/23 08/12/23 History (3 mL) subcutaneous pen (Novolog FlexPen U-100 Insulin aspart) insulin glargine 100 unit/mL (3 12 unit SUBCUT QPM 08/12/23 08/12/23 08/11/23 History mL) subcutaneous pen (Lantus Solostar U-100 Insulin) metoprolol tartrate 50 mg tablet 50 mg PO .@1800 08/12/23 08/12/23 08/11/23 History nystatin 100,000 unit/gram topical 1 applic topical DAILY 08/12/23 08/12/23 08/11/23 History powder vitamin B complex and vitamin C 1 cap PO DAILY 08/12/23 08/12/23 08/11/23 History no.20-folic acid 1 mg capsule (Renal Caps) Allergies Allergy/AdvReac Type Severity Reaction Status Date / Time amoxicillin [From Augmentin] Allergy Mild rash Verified 08/08/23 11:48 clavulanic acid Allergy Mild rash Verified 08/08/23 11:48 [From Augmentin] levofloxacin Allergy Mild rash Verified 08/08/23 11:48 Current Medications Generic Name Dose Route Start Last Admin Trade Name Freq PRN Reason Stop Dose Admin Hydrocodone Bitart/Acetaminophen 1 tab 08/12/23 16:06 08/14/23 04:29 Hydrocodone-Acetaminophen 5-325 Mg Tablet PO 1 tab Q6H PRN Administration Pain Amiodarone HCl 200 mg 08/13/23 06:00 08/14/23 05:49 Amiodarone 200 Mg Tablet PO 200 mg QAM JAIDEN Administration Heparin Sodium (Porcine) 5,000 unit 08/12/23 20:00 08/13/23 19:54 Heparin 5,000 Unit/Ml Inj 1 Ml SUBCUT 5,000 unit Q12H JAIDEN Administration norepinephrine 4 mg in 250 mls @ 0 mls/hr 08/12/23 10:00 08/13/23 20:10 Levophed IV 2 mcg/min .Q0M JAIDEN 7.5 mls/hr Titration Protocol Per Protocol Vancomycin HCl 1,000 mg/ 250 mls @ 250 mls/hr 08/13/23 16:00 08/13/23 16:15 Sodium Chloride IV 250 mls/hr Q48H JAIDEN Administration Protocol Meropenem 500 mg/ Sodium 50 mls @ 100 mls/hr 08/12/23 19:00 08/13/23 19:53 Chloride IV 100 mls/hr Q24H JAIDEN Administration Protocol Insulin Human Lispro 0 unit 08/12/23 18:00 08/13/23 22:20 Insulin Lispro 100 Unit/1 Ml SUBCUT 4 unit WM&BEDTIME JAIDEN Administration Protocol Pantoprazole Sodium 40 mg 08/12/23 16:00 08/14/23 04:22 Pantoprazole 40 Mg Sdv IVP 40 mg Q12H JAIDEN Administration PFSH Anesthesia Medical History (Updated 08/12/23 @ 14:05 by Dean Shaw DO) ESRD (end stage renal disease) on dialysis Hyponatremia DM2 (diabetes mellitus, type 2) Pressure ulcer of left leg, stage 2 Pressure ulcer of right leg, stage 2 Wound of left foot Excoriation of groin Excoriation of abdomen Wound of left lower extremity Pressure ulcer of left buttock, stage 2 Pressure ulcer of right buttock, stage 2 Wound of right lower extremity Lymphedema Stasis dermatitis Pressure sore on buttocks Inability to perform activities of daily living Kidney dysfunction Fluid overload Cellulitis Hemodialysis status Temporary dialysis catheter placement Acute kidney failure Bradycardia Afib Anasarca Bilateral lower leg cellulitis Metabolic acidosis Hyperkalemia DKA (diabetic ketoacidosis) Falls Generalized weakness FRANCISCO (acute kidney injury) CHF (congestive heart failure) Chronic respiratory failure with hypoxia COPD (chronic obstructive pulmonary disease) Social History Smoking and tobacco/nicotine status: former use of tobacco/nicotine Data Anesthesia 08/14/23 05:29 08/14/23 05:29 Short CBC 08/12/23 08/13/23 08/13/23 Range/Units 09:02 02:00 08:00 WBC 6.60 5.43 (3.29-11.43) 10^3/uL Hgb 7.30 L 6.90 L 7.70 L (11.27-16.99) g/dL Hct 23.2 L 22.4 L 24.6 L (37-53) % MCV 93.5 95.0 (82-101) fl Plt Count 187 173 (157-399) 10^3/cmm Neut % (Auto) 86.6 82.0 % Neut # (Auto) 5.72 4.46 (1.8-7.7) 10^3/uL 08/14/23 Range/Units 05:29 WBC 5.71 (3.29-11.43) 10^3/uL Hgb 7.60 L (11.27-16.99) g/dL Hct 24.8 L (37-53) % MCV 95.0 (82-101) fl Plt Count 202 (157-399) 10^3/cmm Neut % (Auto) 78.7 % Neut # (Auto) 4.50 (1.8-7.7) 10^3/uL BMP 08/12/23 08/13/23 08/14/23 09:02 08:00 05:29 Sodium 130 L 138 136 Potassium 4.2 3.5 3.7 Chloride 91 L 98 97 L Carbon Dioxide 26 25 27 BUN 40 H 25 H 33 H Creatinine 5.8 H* 3.7 H 4.4 H Glucose 130 H 154 H 178 H Calcium 8.4 L 7.9 L 8.3 L Cardiac Enzymes 08/12/23 08/12/23 08/12/23 Range/Units 09:02 11:06 15:30 Creatine Kinase 314 H (39-308) U/L Troponin T Baseline 240 H* (0-15) ng/L Troponin T 120 Minute 232.4 H (0-15) ng/L Delta Troponin T -7.6 L (0-10) ABS# Troponin T Hi Sens 6Hr 237.0 H (0-15) ng/L Troponin T Hi Sens 6Hr Delta -3.0 L (0-12) ng/L Liver Function 08/12/23 08/13/23 08/14/23 Range/Units 09:02 08:00 05:29 Total Bilirubin 0.5 0.7 0.6 (0.15-1.2) mg/dL AST 22 10 12 (0-40) U/L ALT 11 7 8 (0-41) U/L Alkaline Phosphatase 117 104 156 H (40-130) U/L Albumin 2.9 L 2.7 L 2.7 L (3.5-5.2) g/dL Urine 08/12/23 Range/Units 09:53 Urine Color Dark yellow (Yellow) Urine Appearance Cloudy A (CLEAR) Urine pH 5 (5-7) Ur Specific [place] 1.020 (1.005-1.030) Urine Protein 3+ H (Negative) Urine Glucose (UA) Norm (Normal) Urine Ketones 1+ H (Negative) Urine Nitrate Negative (Negative) Urine Bilirubin 1+ H (Negative) Ur Leukocyte Esterase 2+ H (Negative) Urine RBC >100 H (0-2) /hpf Urine WBC 80-100 H (0-5) /hpf Blood Bank 08/12/23 08/13/23 10:29 03:06 Blood Type Cancelled A Positive Rho(D) Type Cancelled Rh positive Antibody Screen Cancelled Negative COVID Results 08/12/23 09:53 Coronavirus 229E (PCR) Not detected SARS-CoV-2 (PCR) Not detected Coags 08/12/23 09:02 APTT 41.2 H ABG 08/12/23 09:10 Specimen Type Arterial Sample Site Radial, right ABG pH 7.43 ABG pCO2 43.6 ABG pO2 70.4 L ABG HCO3 29.1 H ABG O2 Saturation 96.1 ABG Base Excess 4.4 H A-a O2 Gradient 3.4 L O2 Delivery Device Nc O2 Liters/Min 4.0 Microbiology 08/12/23 18:45 Occult Blood (FIT) - Final Stool - Stool Aspirate 08/12/23 16:46 Blood Culture - Preliminary Blood NEGATIVE TO DATE 08/12/23 09:57 Blood Culture - Preliminary Blood NEGATIVE TO DATE 08/12/23 09:53 Urine Culture - Preliminary Urine,Clean Catch Yeast Cardiac Studies: Echocardiogram 08/12/23
--- NOTE | 2023-08-14 09:40 | ANE.PACU2 ---
Inpatient post-anesthesia follow up: Airway intact: Yes Vital signs: Temperature 97.8 F Pulse Rate 67 Respiratory Rate 16 Blood Pressure 114/54 Pulse Oximetry 91 Oxygen Delivery Me thod [ Nasal Cannula Current Rate & Del jason] Oxygen Delivery Me thod Nasal Cannula Oxygen Flow Rate [ Current Rate 3 & Delivery] Oxygen Flow Rate 3 Fraction of Inspir ed Oxygen Hydration adequate: Yes Nausea and vomiting: No Pain level: 1 Mental status: Baseline
--- NOTE | 2023-08-14 09:48 | P.PN_ITS ---
Subjective 2 Subjective: Infectious disease progress note FELICITY completed this morning with findings as below: Mitral Valve There is 1.7 x 1.1 cm mobile, echogenic mass seen on atrial aspect of posterior mitral leaflet. This is consistent with vegetation. On atrial aspect of anterior leaflet base, a small echogenic structure consistent with vegetation is seen. Mild to moderate mitral regurgitation noted. Aortic Valve Aortic valve is thickened. There is an echogenic mass seen on ventricular aspect of aortic valve measuring 1.48 cm in largest dimension. This is consistent with aortic valve vegetation. Blood culture reported positive, thus far Gram stain showing gram-positive cocci in pairs and short chains. Pending final identification. Medications: Reviewed: Yes Vitals/I&O/Wt Last Vital Signs Temp 97.8 F 08/14/23 06:20 Pulse 68 08/14/23 06:20 Resp 14 08/14/23 06:20 BP 105/51 08/14/23 06:20 Pulse Ox 97 08/14/23 06:20 O2 Del Method Nasal Cannula 08/14/23 06:20 O2 Flow Rate 3 08/14/23 06:20 08/13/23 08/14/23 08/14/23 22:59 06:59 14:59 Intake Total 63.875 / 568.625 Output Total 75 / 75 Balance -11.125 / 493.625 Weight last 48 hrs Weight 118.132 kg Weight 118.132 kg Weight 117.679 kg Weight 117.679 kg Weight 117.7 kg Physical Exam 2 Narrative: General: No acute distress, AO x3 HEENT: PERRLA, pupils bilaterally equal and reactive, pallors not present Chest: Normal vesicular breath sounds, no added sounds, equal good air entry bilaterally CVS: S1-S2 regular, no murmurs, no tachycardia, no gallops, no rubs Abdomen: Soft, nontender, no organomegaly, bowel sounds present Neuro: No focal deficits, no facial deformity, AO x3, power 5/5 in all limbs Urinary Catheter Management: Fuentes: Cath Placed During This Visit: yes Reason for Continuing Indwelling Catheter: Accurate Measurement of Urinary Output in Critically Ill Patients Urinary Catheter Date of Insertion: 08/12/23 Urinary Catheter Time of Insertion: 09:52 Data 08/14/23 05:29 08/14/23 05:29 Micro: Microbiology 08/12/23 18:45 Occult Blood (FIT) - Final Stool - Stool Aspirate 08/12/23 16:46 Blood Culture - Preliminary Blood NEGATIVE TO DATE 08/12/23 09:57 Blood Culture - Preliminary Blood NEGATIVE TO DATE 08/12/23 09:53 Urine Culture - Preliminary Urine,Clean Catch Yeast August 12, 2023 9:53 AM: Blood culture: Gram-positive cocci in pairs and short chains, pending final identification. August 12, 2023 9:57 AM: Blood culture: Pending August 12, 2023 1646 from dialysis catheter: Pending Other data: 08/13/22 FELICITY completed this morning with findings as below: Mitral Valve There is 1.7 x 1.1 cm mobile, echogenic mass seen on atrial aspect of posterior mitral leaflet. This is consistent with vegetation. On atrial aspect of anterior leaflet base, a small echogenic structure consistent with vegetation is seen. Mild to moderate mitral regurgitation noted. Aortic Valve Aortic valve is thickened. There is an echogenic mass seen on ventricular aspect of aortic valve measuring 1.48 cm in largest dimension. This is consistent with aortic valve vegetation. A&P Assessment and plan (1) Endocarditis: (2) Enterococcus faecalis infection: Plan 62-year-old male with multiple comorbidities as listed above presenting to the hospital with septic shock after recently having been diagnosed with a UTI and Enterococcus faecalis bacteremia. Review of chart shows positive blood cultures for Enterococcus faecalis on August 02, 2023 as listed above. Urine culture from the same day showing Klebsiella pneumonia ESBL and Enterococcus faecalis. CT abdomen and pelvis from August 01 without any obstructive hydronephrosis. Patient has been on outpatient treatment with cephalexin 500 mg 3 times daily since August 01. Clinical worsening now, admission with septic shock. Blood cultures on this current admission now updated to reflect GPC's in pairs and short chains, I expect these to be Enterococcus faecalis given recent history. FELICITY today showing 1.7 x 1.1 cm mobile echogenic vegetation on posterior mitral valve leaflet, small echogenic structure additionally noted on the anterior aspect. Additional echogenic mass on aortic valve measuring 1.48 cm. Consistent with an aortic valve vegetation. 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 Plan: Discontinue meropenem and vancomycin Antibiotic regimen changed to ampicillin 2 g IV twice daily (renally dosed for intermittent HD) and ceftriaxone 2 g IV every 12 hours for treatment of [place] valve Enterococcus faecalis endocarditis. Patient's chart notes past history of allergy (rash) to Augmentin, however patient states he does not recall any such allergy. Reviewed past medication history from prior visits, patient has tolerated piperacillin/tazobactam and ceftriaxone without incidence in the past. Anticipate him tolerating ampicillin and ceftriaxone combination. Closely monitor for development of any allergic reactions. Remove HD catheter after dialysis today. Recommend CT surgery evaluation and involvement in patient's care given large size of the vegetation. Currently no signs of paravalvular extension or overt CHF. However high risk of clinical deterioration given size of vegetation. He may be a candidate for early valvular surgery. He will likely need transfer to higher center to facilitate this. Attestations 2 Medical Necessity Statement*: per admitting Coding Level of Care Code Acute Code for Chg Fwd High MDM includes number and complexity of problems actively addressed during encounter, amount and/or complexity of data reviewed/ordered and described risk of complication, morbidity or mortality of management as documented Diagnoses Endocarditis I38 Enterococcus faecalis infection A49.8
[2023-08-14] MEDS: heparin 5,000 unit/mL INJ 1 mL 5000 UNIT SUBCUT (09:54)
--- NOTE | 2023-08-14 09:56 | P.PN_ITS ---
Subjective 2 Subjective: Patient had FELICITY today. It demonstrates 3 vegetation. Largest is on posterior leaflet of mitral valve and measures 1.7x1.1cm in largest dimension on atrial aspect of the valve. There is another small sized vegetation at base of anterior mitral leaflet on atrial aspect. There is another large vegetation on ventricular aspect of aortic valve and measures 1.4 cm in largest dimension. Mild to moderate mitral regurgitation. Vitals/I&O/Wt Last Vital Signs Temp 97.8 F 08/14/23 06:20 Pulse 68 08/14/23 06:20 Resp 14 08/14/23 06:20 BP 105/51 08/14/23 06:20 Pulse Ox 97 08/14/23 06:20 O2 Del Method Nasal Cannula 08/14/23 06:20 O2 Flow Rate 3 08/14/23 06:20 08/13/23 08/14/23 08/14/23 22:59 06:59 14:59 Intake Total 63.875 / 568.625 Output Total 75 / 75 Balance -11.125 / 493.625 Weight last 48 hrs Weight 260 lb 7 oz Weight 260 lb 7 oz Weight 259 lb 7 oz Weight 259 lb 7 oz Weight 259 lb 7.745 oz Physical Exam 2 Narrative: GENERAL: Patient is alert, awake and oriented x3. [] NECK: No jugular vein distension. [] HEENT: No cyanosis. No icterus. No pallor. [] HEART: Regular S1 and S2. Grade 2/6 systolic murmur LUNGS: Clear to auscultate bilaterally. [] CENTRAL NERVOUS SYSTEM: Grossly nonfocal. [] EXTREMITIES: Lower extremities with no edema Urinary Catheter Management: Fuentes: Cath Placed During This Visit: yes Reason for Continuing Indwelling Catheter: Accurate Measurement of Urinary Output in Critically Ill Patients Urinary Catheter Date of Insertion: 08/12/23 Urinary Catheter Time of Insertion: 09:52 Data 08/14/23 05:29 08/14/23 05:29 Micro: Microbiology 08/12/23 18:45 Occult Blood (FIT) - Final Stool - Stool Aspirate 08/12/23 16:46 Blood Culture - Preliminary Blood NEGATIVE TO DATE 08/12/23 09:57 Blood Culture - Preliminary Blood NEGATIVE TO DATE 08/12/23 09:53 Urine Culture - Preliminary Urine,Clean Catch Yeast A&P Assessment and plan (1) Sepsis: (2) DM2 (diabetes mellitus, type 2): (3) Hyponatremia: (4) Afib: Plan Patient has endometritis confirmed with transesophageal echocardiogram with above-mentioned findings. He will benefit from CT surgery consult as vegetation size is large posterior mitral valve leaflet and aortic valve and will recommend surgical evaluation and surgical therapy. Antibiotic treatment per ID service. Thank you for involving us with care of this patient. We will continue to follow. Please call with questions. Attestations 2 Medical Necessity Statement*: Care expected to cross 2 midnights. Coding Level of Care Code [facility] Diagnoses Sepsis A41.9 DM2 (diabetes mellitus, type 2) E11.9 Hyponatremia E87.1 Afib I48.91
--- NOTE | 2023-08-14 09:59 | PC.NURSE ---
Antibiotics not given at scheduled time d/t HD RN (Ken) called and stated taht she was on her way to perform HD today. Antibiotics are contraindicated to be given prior to HD. Ulices give when HD is completed.
[2023-08-14 12:33] LABS: Glucose Point of Care 150 mg/dL (70-110)
[2023-08-14] MEDS: epoetin alfa 1000 Unit/0.05 mL (ESRD) 20000 UNIT IVP (13:13)
[2023-08-14] MEDS: heparin, porcine 1,000 unit/mL INJ 10 mL 1000 UNIT IV (13:22)
--- NOTE | 2023-08-14 13:53 | PC.SOCIAL ---
IMM done with over the phone and placed in chart.
[2023-08-14] MEDS: heparin, porcine 1,000 unit/mL INJ 10 mL 10000 UNIT INTRACATH (14:15)
--- NOTE | 2023-08-14 14:45 | P.TS_ITS ---
Transfer Summary Providers Date of Admission: 08/12/23 13:54 Date of Discharge/Transfer: 08/14/23 Attending Provider at Admission: Lenny Montalvo MD Attending Provider at Transfer: Lenny Montalvo MD Primary Care Provider: Misty Ibrahim Transfer Plans: Anticipated date of transfer: 08/14/23 . Diagnoses at Discharge Discharge Diagnosis (1) Sepsis: Status: Acute (2) DM2 (diabetes mellitus, type 2): Status: Acute (3) Hyponatremia: Status: Acute (4) Afib: Status: Acute Reason for Visit Reason for Visit AMS Hospital Course Hospital Course Geronimo is a 62-year-old male dialysis patient with history of diabetes and hypertension who presented to the hospital with acute encephalopathy. Previous blood cultures were positive on August 01, and urine culture was positive as well for Enterococcus faecalis. ESBL was also present in the urine. He continued to have a low-grade fever at the nursing facility following August 01, until presentation back here on the for admission. He was on Keflex a short while during this interim. He was admitted to the hospital with concern of sepsis, and need for further treatment of his bacteremia identified on August 01. Blood cultures were obtained and he was placed on vancomycin and meropenem. Secondary to his sepsis he had some hypotension for which she was placed on a norepinephrine drip. Nephrology was consulted initially, and infectious disease as well. While at the hospital his blood cultures remain negative, and he was eventually transition to ceftriaxone and ampicillin based on his previous bacteremia. Transthoracic echo demonstrated concern for heart vegetation and FELICITY was completed showing significantly large vegetations on his mitral and aortic valves. 3 vegetations were identified the largest on the posterior leaflet of the mitral valve measuring 1.7 x 1.1 cm. A small sized vegetation was at the base of the anterior mitral leaflet, and another large vegetation on the aortic valve ventricular aspect 1.4 cm. Moderate mitral regurgitation was noted. Considering the significant vegetations, plans were made to remove his dialysis catheter, tunneled, right IJ following his dialysis today. However, considering the large vegetations that were identified on both aortic and mitral valve he will need urgent cardiothoracic evaluation and transfer. Removal of dialysis catheter could not occur prior to transfer, and will have to be readdressed at the receiving facility. I discussed this with the receiving physician, as well as the field marketing coordinator. . He had no evidence of embolization while in the hospital during this stay. I discussed his case with Patricia, Dr. Farrell, who graciously accepted the patient in transfer. At the time of transfer he was stable, with stable vital signs and on 2 mcg of norepinephrine. He was alert, and oriented. He was on 3 L of oxygen. I discussed the case and transfer with him, and his daughter. They were given an opportunity to ask questions, and agreed with the plan. Physical Exam Narrative: General exam no distress Neck is supple Cardiovascular regular rate and rhythm Lungs clear Abdomen is soft Extremities no cyanosis clubbing or edema Urinary Catheter Management: Fuentes: Cath Placed During This Visit: yes Reason for Continuing Indwelling Catheter: Accurate Measurement of Urinary Output in Critically Ill Patients Urinary Catheter Date of Insertion: 08/12/23 Urinary Catheter Time of Insertion: 09:52 TS Data Studies Completed and Pending Pending at discharge Category Date Time Status Blood Culture Stat Lab 08/12/23 09:57 Results Blood Culture Stat Lab 08/12/23 16:46 Results Hepatitis B Surface AG w/Conf Routine Lab 08/12/23 13:08 Received Urine Culture Stat Lab 08/12/23 09:53 Results Completed Studies During Hospitalization Category Date Time Status CT head wo con* [id number] Stat Cat Scan 08/12/23 10:36 Completed XR chest 1V portable [id number] Stat Exams 08/12/23 09:04 Completed XR chest 1V portable [id number] Stat Exams 08/12/23 12:06 Completed XR foot RT min 3V* [id number] Stat Exams 08/12/23 10:35 Completed CV. echo complete* [id number] Routine Ultrasound 08/12/23 14:41 Completed CV. echo transesophageal [id number] Routine Ultrasound 08/14/23 08:00 Completed Laboratory Last Values WBC 5.71 10^3/uL (3.29-11.43) 08/14/23 05:29 RBC 2.61 10^6/uL (3.85-5.65) L 08/14/23 05:29 Hgb 7.60 g/dL (11.27-16.99) L 08/14/23 05:29 Hct 24.8 % (37-53) L 08/14/23 05:29 MCV 95.0 fl (82-101) 08/14/23 05:29 MCH 29.1 pg (27-33) 08/14/23 05:29 MCHC 30.6 g/dL (30-55) 08/14/23 05:29 RDW 18.2 % (12.1-15.1) H 08/14/23 05:29 Plt Count 202 10^3/cmm (157-399) 08/14/23 05:29 MPV 10.0 fL (7.4-10.4) 08/14/23 05:29 Neut % (Auto) 78.7 % 08/14/23 05:29 Lymph % (Auto) 8.8 % 08/14/23 05:29 Norman % (Auto) 8.8 % 08/14/23 05:29 Eos % (Auto) 2.5 % 08/14/23 05:29 Baso % (Auto) 0.5 % 08/14/23 05:29 Neut # (Auto) 4.50 10^3/uL (1.8-7.7) 08/14/23 05:29 Lymph # (Auto) 0.5 10^3/uL (0.8-4.8) L 08/14/23 05:29 Norman # (Auto) 0.5 10^3/uL (0.2-0.9) 08/14/23 05:29 Eos # (Auto) 0.1 10^3/uL (0.0-0.8) 08/14/23 05:29 Baso # (Auto) 0.0 10^3/uL (0.0-0.1) 08/14/23 05:29 Nucleated RBC % (auto) 0 % 08/14/23 05:29 Nucleated RBCs # 0.0 /100WBC 08/14/23 05:29 APTT 41.2 SECONDS (23.9-36.7) H 08/12/23 09:02 Specimen Type Arterial 08/12/23 09:10 Sample Site Radial, right 08/12/23 09:10 ABG pH 7.43 (7.35-7.45) 08/12/23 09:10 ABG pCO2 43.6 mmHg (35-45) 08/12/23 09:10 ABG pO2 70.4 mmHg (80.0-100.0) L 08/12/23 09:10 ABG HCO3 29.1 mmol/L (22-26) H 08/12/23 09:10 ABG O2 Saturation 96.1 08/12/23 09:10 ABG Base Excess 4.4 mmol/L (-2.0-2.0) H 08/12/23 09:10 Van Test Pos 08/12/23 09:10 A-a O2 Gradient 3.4 mmHg (5-10) L 08/12/23 09:10 Hematocrit 21.1 % (42-52) L 08/12/23 09:10 Hgb O2 Saturation 92.1 % (95-100) L 08/12/23 09:10 Carboxyhemoglobin 3.0 %THgb (0.4-20.1) 08/12/23 09:10 Methemoglobin 1.2 % (0.4-1.5) 08/12/23 09:10 Total Hemoglobin 6.9 g/dL (14-18) L 08/12/23 09:10 Sodium 133.0 mmol/L (131-143) 08/12/23 09:10 Potassium 3.8 mmol/L (3.5-5.0) 08/12/23 09:10 Glucose 124.0 mg/dL (70-115) H 08/12/23 09:10 Ionized Calcium 1.1 mmol/L (1.1-1.4) 08/12/23 09:10 O2 Delivery Device Nc 08/12/23 09:10 O2 Liters/Min 4.0 % 08/12/23 09:10 Director Cost ID Walci 08/12/23 09:10 Sodium 136 mmol/L (136-145) 08/14/23 05:29 Potassium 3.7 mmol/L (3.5-5.1) 08/14/23 05:29 Chloride 97 mmol/L (98-107) L 08/14/23 05:29 Carbon Dioxide 27 mmol/L (22-29) 08/14/23 05:29 Anion Gap 15.7 (5-19) 08/14/23 05:29 BUN 33 mg/dL (8-23) H 08/14/23 05:29 Creatinine 4.4 mg/dL (0.7-1.2) H 08/14/23 05:29 GFR Calculation 13.8 mL/min (90-130) L 08/14/23 05:29 Glucose 178 mg/dL (65-115) H 08/14/23 05:29 POC Glucose 150 mg/dL (70-110) H 08/14/23 12:30 Calculated Osmolality 294 mOsm/kg (285-295) 08/14/23 05:29 Lactic Acid 1.2 mmol/L (0.5-2.2) 08/12/23 09:02 Calcium 8.3 mg/dL (8.5-10.5) L 08/14/23 05:29 Magnesium 1.9 mg/dL (1.7-2.3) 08/12/23 09:02 Total Bilirubin 0.6 mg/dL (0.15-1.2) 08/14/23 05:29 AST 12 U/L (0-40) 08/14/23 05:29 ALT 8 U/L (0-41) 08/14/23 05:29 Alkaline Phosphatase 156 U/L (40-130) H 08/14/23 05:29 Creatine Kinase 314 U/L (39-308) H 08/12/23 09:02 Troponin T Baseline 240 ng/L (0-15) H* 08/12/23 09:02 Troponin T 120 Minute 232.4 ng/L (0-15) H 08/12/23 11:06 Delta Troponin T -7.6 ABS# (0-10) L 08/12/23 11:06 Troponin T Hi Sens 6Hr 237.0 ng/L (0-15) H 08/12/23 15:30 Troponin T Hi Sens 6Hr Delta -3.0 ng/L (0-12) L 08/12/23 15:30 Total Protein 6.4 g/dL (6.6-8.7) L 08/14/23 05:29 Albumin 2.7 g/dL (3.5-5.2) L 08/14/23 05:29 Globulin 3.7 g/dL (1.3-4.6) 08/14/23 05:29 Lipase 7 U/L (13-60) L 08/12/23 09:02 Urine Color Dark yellow (Yellow) 08/12/23 09:53 Urine Appearance Cloudy (CLEAR) A 08/12/23 09:53 Urine pH 5 (5-7) 08/12/23 09:53 Ur Specific Marquez 1.020 (1.005-1.030) 08/12/23 09:53 Urine Protein 3+ (Negative) H 08/12/23 09:53 Urine Glucose (UA) Norm (Normal) 08/12/23 09:53 Urine Ketones 1+ (Negative) H 08/12/23 09:53 Urine Blood 3+ (Negative) H 08/12/23 09:53 Urine Nitrate Negative (Negative) 08/12/23 09:53 Urine Bilirubin 1+ (Negative) H 08/12/23 09:53 Urine Urobilinogen 1 mg/dL (Negative) H 08/12/23 09:53 Ur Leukocyte Esterase 2+ (Negative) H 08/12/23 09:53 Urine RBC >100 /hpf (0-2) H 08/12/23 09:53 Urine WBC 80-100 /hpf (0-5) H 08/12/23 09:53 Ur Squamous Epith Cells 0-4 /hpf (0-5) H 08/12/23 09:53 Amorphous Sediment Trace /hpf 08/12/23 09:53 Urine Bacteria 2+ /hpf (NONE) H 08/12/23 09:53 Urine Yeast 1+ /hpf H 08/12/23 09:53 Serum Ketones Negative (Negative) 08/12/23 09:02 Coronavirus 229E (PCR) Not detected (NOT DETECT) 08/12/23 09:53 Hep Bs Antigen Reactive (Nonreactive) H 08/12/23 13:08 Hep Bs Antibody < 3.5 (11.5-1000) L 08/12/23 13:08 Hep B Core Total Ab Non-reactive (Nonreactive) 08/12/23 13:08 Influenza Type A Ag negative (Negative) 08/12/23 09:53 Influenza Type B Ag negative (Negative) 08/12/23 09:53 SARS-CoV-2 (PCR) Not detected (NOT DETECT) 08/12/23 09:53 Blood Type A Positive 08/13/23 03:06 Rho(D) Type Rh positive 08/13/23 03:06 Antibody Screen Negative 08/13/23 03:06 Crossmatch See Detail 08/13/23 03:06 Recent Clincial Data Last Vital Signs Temp 97.8 F 08/14/23 08:00 Pulse 67 08/14/23 12:20 Resp 16 08/14/23 12:20 BP 114/54 08/14/23 12:20 Pulse Ox 91 08/14/23 12:20 O2 Del Method Nasal Cannula 08/14/23 11:26 O2 Flow Rate 3 08/14/23 11:26 Vital Signs Temp Pulse Resp BP Pulse Ox O2 Del Method O2 Del Method 08/14/23 12:20 67 16 114/54 91 08/14/23 12:00 67 18 113/60 08/14/23 11:40 68 19 H 107/55 94 08/14/23 11:26 69 100 Nasal Cannula 08/14/23 11:20 71 15 110/54 08/14/23 11:00 66 11 L 107/53 08/14/23 10:40 71 15 106/55 08/14/23 10:20 67 13 104/64 08/14/23 10:00 66 17 114/61 08/14/23 09:40 66 20 H 91/39 08/14/23 09:20 66 13 103/52 08/14/23 09:00 67 12 103/53 08/14/23 08:40 65 15 98/52 08/14/23 08:20 67 15 112/60 08/14/23 08:00 69 15 116/58 97 08/14/23 08:00 97.8 F 68 14 105/51 08/14/23 07:40 66 12 112/56 97 08/14/23 07:20 66 11 L 99/52 96 08/14/23 07:00 66 16 91/48 08/14/23 06:40 67 13 100/52 97 08/14/23 06:20 97.8 F 68 14 105/51 97 Nasal Cannula 08/14/23 06:00 67 15 106/52 97 Nasal Cannula 08/14/23 06:00 75 08/14/23 05:40 68 14 105/46 95 08/14/23 05:20 74 20 H 107/50 95 08/14/23 05:00 74 25 H 107/57 97 08/14/23 04:40 77 16 119/56 96 Nasal Cannula 08/14/23 04:20 72 14 119/58 95 08/14/23 04:00 75 13 106/57 08/14/23 03:40 71 14 102/53 95 08/14/23 03:20 72 16 105/52 96 08/14/23 03:00 73 23 H 104/54 O2 Flow Rate O2 Flow Rate 08/14/23 12:20 08/14/23 12:00 08/14/23 11:40 08/14/23 11:26 3 08/14/23 11:20 08/14/23 11:00 08/14/23 10:40 08/14/23 10:20 08/14/23 10:00 08/14/23 09:40 08/14/23 09:20 08/14/23 09:00 08/14/23 08:40 08/14/23 08:20 08/14/23 08:00 08/14/23 08:00 08/14/23 07:40 08/14/23 07:20 08/14/23 07:00 08/14/23 06:40 08/14/23 06:20 3 08/14/23 06:00 08/14/23 06:00 08/14/23 05:40 08/14/23 05:20 08/14/23 05:00 08/14/23 04:40 08/14/23 04:20 08/14/23 04:00 08/14/23 03:40 08/14/23 03:20 08/14/23 03:00 Intake & Output/Weight 08/12/23 08/13/23 08/14/23 08/15/23 06:59 06:59 06:59 06:59 Intake Total 1112.375 / 1112.375 568.625 / 568.625 Output Total 4000 / 4000 75 / 75 Balance -2887.625 / -2887.625 493.625 / 493.625 Weight 117.679 kg 118.132 kg Vitals Last Vital Signs Temp 97.8 F 08/14/23 08:00 Pulse 67 08/14/23 12:20 Resp 16 08/14/23 12:20 BP 114/54 08/14/23 12:20 Pulse Ox 91 08/14/23 12:20 O2 Del Method Nasal Cannula 08/14/23 11:26 O2 Flow Rate 3 08/14/23 11:26 TS Medications Medications Acetaminophen (Acetaminophen 325 Mg Tablet) 650 mg PO Q6H PRN PRN Reason: MILD PAIN Hydrocodone Bitart/Acetaminophen (Hydrocodone-Acetaminophen 5-325 Mg Tablet) 1 tab PO Q6H PRN PRN Reason: Pain Last Admin: 08/14/23 04:29 Dose: 1 tab Amiodarone HCl (Amiodarone 200 Mg Tablet) 200 mg PO QAM JAIDEN Last Admin: 08/14/23 05:49 Dose: 200 mg Heparin Sodium (Porcine) (Heparin 5,000 Unit/Ml Inj 1 Ml) 5,000 unit SUBCUT Q12H JAIDEN Last Admin: 08/14/23 09:54 Dose: 5,000 unit norepinephrine (Levophed) 4 mg in 250 mls @ 0 mls/hr IV .Q0M JAIDEN; Protocol Last Titration: 08/13/23 20:10 Dose: 2 mcg/min, 7.5 mls/hr Sodium Chloride (Sodium Chloride 0.9%) 1,000 mls @ 0 mls/hr IV .Q0M PRN PRN Reason: hypotension or symptomatic Dextrose (D5w) 500 mls @ 0 mls/hr IV ONCE PRN; Protocol PRN Reason: Adult Acute Hypoglycemia Prot Dextrose (D10w) 125 mls @ 750 mls/hr IV PRN PRN; Protocol PRN Reason: Adult Acute Hypoglycemia Nursing Protocol Dextrose (D10w) 250 mls @ 1,000 mls/hr IV PRN PRN; Protocol PRN Reason: Adult Acute Hypoglycemia Nursing Protocol Sodium Chloride (Sodium Chloride 0.9%) 1,000 mls @ 0 mls/hr IV .Q0M PRN PRN Reason: hypotension or symptomatic Albumin Human (Albumin) 12.5 gm in 50 mls @ 60 mls/hr IV PRN PRN PRN Reason: Hypotension and/or symptomatic Ampicillin Sodium 2,000 mg/ (Sodium Chloride) 50 mls @ 100 mls/hr IV Q12H JADIEN; Protocol Ceftriaxone Sodium 2,000 mg/ (Sodium Chloride) 50 mls @ 100 mls/hr IV Q12H JAIDEN; Protocol Insulin Human Lispro (Insulin Lispro 100 Unit/1 Ml) 0 unit SUBCUT WM&BEDTIME [facility]; Protocol Last Admin: 08/14/23 14:33 Dose: Not Given Ondansetron HCl (Ondansetron 2 Mg/Ml Sdv 2 Ml) 4 mg IVP Q6H PRN PRN Reason: NAUSEA AND VOMITING Pantoprazole Sodium (Pantoprazole 40 Mg Sdv) 40 mg IVP Q12H [facility] Last Admin: 08/14/23 04:22 Dose: 40 mg Discontinued Medications Epoetin Aleksander (Epoetin Aleksander 1000 Unit/0.05 Ml (Esrd)) 20,000 unit IVP NOW ONE Stop: 08/12/23 12:17 Last Admin: 08/12/23 19:22 Dose: 20,000 unit Epoetin Aleksander (Epoetin Aleksander 1000 Unit/0.05 Ml (Esrd)) 20,000 unit IVP NOW ONE Stop: 08/14/23 05:37 Heparin Sodium (Porcine) (Heparin 5,000 Unit/Ml Inj 1 Ml) 0 unit IV PRN PRN; Protocol PRN Reason: Heparin weight-base protocol Heparin Sodium (Porcine) (Heparin, Porcine 1,000 Unit/Ml Inj 10 Ml) 10,000 unit INTRACATH PRN ONE Stop: 08/12/23 12:17 Last Admin: 08/12/23 19:06 Dose: 10,000 unit Heparin Sodium (Porcine) (Heparin, Porcine 1,000 Unit/Ml Inj 10 Ml) 1,000 unit IV PRN ONE Stop: 08/12/23 12:17 Last Admin: 08/12/23 19:05 Dose: 1,000 unit Heparin Sodium (Porcine) (Heparin, Porcine 1,000 Unit/Ml Inj 10 Ml) 10,000 unit INTRACATH PRN ONE Stop: 08/12/23 18:46 Last Admin: 08/13/23 01:00 Dose: Not Given Heparin Sodium (Porcine) (Heparin, Porcine 1,000 Unit/Ml Inj 10 Ml) 1,000 unit IV PRN ONE Stop: 08/12/23 18:46 Last Admin: 08/13/23 01:00 Dose: Not Given Heparin Sodium (Porcine) (Heparin, Porcine 1,000 Unit/Ml Inj 10 Ml) 10,000 unit INTRACATH PRN ONE Stop: 08/14/23 05:37 Last Admin: 08/14/23 12:26 Dose: Not Given Heparin Sodium (Porcine) (Heparin, Porcine 1,000 Unit/Ml Inj 10 Ml) 1,000 unit IV PRN ONE Stop: 08/14/23 05:37 Last Admin: 08/14/23 12:27 Dose: Not Given Heparin Sodium (Porcine) (Heparin, Porcine 1,000 Unit/Ml Inj 10 Ml) 10,000 unit INTRACATH PRN ONE Stop: 08/14/23 11:31 Heparin Sodium (Porcine) (Heparin, Porcine 1,000 Unit/Ml Inj 10 Ml) 1,000 unit IV PRN ONE Stop: 08/14/23 11:31 Heparin Sodium/Sodium Chloride (Heparin Drip) 25,000 unit in 500 mls @ 0 mls/hr IV .Q0M JAIDEN; Protocol Last Titration: 08/12/23 14:10 Dose: 0 unit/kg/hr, 0 mls/hr Ertapenem 1,000 mg/ Sodium (Chloride) 100 mls @ 200 mls/hr IV ONCE ONE; Protocol Stop: 08/12/23 11:02 Last Admin: 08/12/23 12:22 Dose: 200 mls/hr Vancomycin HCl 1,000 mg/ (Sodium Chloride) 250 mls @ 250 mls/hr IV ONCE ONE; Protocol Stop: 08/12/23 11:32 Last Admin: 08/12/23 13:39 Dose: 250 mls/hr Albumin Human (Albumin) 12.5 gm in 50 mls @ 60 mls/hr IV PRN PRN PRN Reason: Hypotension and/or symptomatic Sodium Chloride (Sodium Chloride 0.9%) 1,000 mls @ 100 mls/hr IV .Q10H JAIDEN Meropenem 500 mg/ Sodium (Chloride) 50 mls @ 100 mls/hr IV Q24H JAIDEN; Protocol Vancomycin HCl 1,000 mg/ (Sodium Chloride) 250 mls @ 250 mls/hr IV Q48H JAIDEN; Protocol Last Admin: 08/13/23 16:15 Dose: 250 mls/hr Meropenem 500 mg/ Sodium (Chloride) 50 mls @ 100 mls/hr IV Q24H JAIDEN; Protocol Last Admin: 08/13/23 19:53 Dose: 100 mls/hr Morphine Sulfate (Morphine 4 Mg/Ml Sdv 1 Ml) 2 mg IVP ONCE ONE Stop: 08/12/23 19:54 Last Admin: 08/12/23 21:14 Dose: 2 mg Pantoprazole Sodium (Pantoprazole 40 Mg Sdv) 40 mg IVP DAILY JAIDEN Propofol (Propofol 10 Mg/Ml Sdv 20 Ml) Confirm Administered Dose 400 mg .ROUTE .STK-MED ONE Stop: 08/14/23 10:37 Sodium Chloride (Sodium Chloride 0.9% 100 Ml Bag) 50 ml IV PRN PRN PRN Reason: Blood transfusion prime and flush Stop: 08/14/23 02:13 Last Admin: 08/13/23 04:35 Dose: 50 ml Sodium Chloride (Sodium Chloride 0.9% 100 Ml Bag) 50 ml IV PRN PRN PRN Reason: Blood transfusion prime and flush Stop: 08/14/23 03:23 Allergies amoxicillin [From Augmentin] Allergy (Mild, Verified 08/08/23 11:48) rash clavulanic acid [From Augmentin] Allergy (Mild, Verified 08/08/23 11:48) rash levofloxacin Allergy (Mild, Verified 08/08/23 11:48) rash Home Medications albuterol sulfate 2.5 mg/3 mL (0.083 %) solution for nebulization 2.5 mg inhalation Q4H PRN Shortness Of Breath 10/03/22 [History Confirmed 08/12/23] amiodarone 200 mg tablet 200 mg PO QAM 10/03/22 [History Confirmed 08/12/23] apixaban 5 mg tablet (Eliquis) 5 mg PO BID 03/11/23 [History Confirmed 08/12/23] silver sulfadiazine 1 % topical cream (SSD) 1 applic topical DAILY 03/11/23 [History Confirmed 08/12/23] epinephrine 0.3 mg/0.3 mL injection, auto-injector 0.3 mg (0.3 mL) IM Q10M PRN anaphylaxis #2 ea 03/17/23 [Rx Confirmed 08/12/23] gabapentin 100 mg capsule 100 mg PO BID #60 caps 05/27/23 [Rx Confirmed 08/12/23] metoprolol tartrate 50 mg tablet See Rx Instructions .Route .COMPLEX 06/05/23 [History Confirmed 08/12/23] sennosides 8.6 mg-docusate sodium 50 mg tablet (Stool Softener-Laxative) 1 tab PO DAILY PRN Constipation 06/05/23 [History Confirmed 08/12/23] acetaminophen 325 mg tablet 650 mg PO Q6H PRN Pain 08/12/23 [History Confirmed 08/12/23] bisacodyl 10 mg rectal suppository 10 mg DC DAILY PRN Constipation 08/12/23 [H istory Confirmed 08/12/23] cholecalciferol (vitamin D3) 25 mcg (1,000 unit) capsule (Vitamin D3) 25 mcg PO QAM 08/12/23 [History Confirmed 08/12/23] ergocalciferol (vitamin D2) 1,250 mcg (50,000 unit) capsule 1,250 mcg PO Q7D 08/12/23 [History Confirmed 08/12/23] hydrocodone 5 mg-acetaminophen 325 mg tablet 1 tab PO Q6H PRN Pain 08/12/23 [History Confirmed 08/12/23] insulin aspart U-100 100 unit/mL (3 mL) subcutaneous pen (Novolog FlexPen U-100 Insulin aspart) 6 unit SUBCUT TID 08/12/23 [History Confirmed 08/12/23] insulin glargine 100 unit/mL (3 mL) subcutaneous pen (Lantus Solostar U-100 Ins ulin) 12 unit SUBCUT QPM 08/12/23 [History Confirmed 08/12/23] metoprolol tartrate 50 mg tablet 50 mg PO .@1800 08/12/23 [History Confirmed 08/12/23] nystatin 100,000 unit/gram topical powder 1 applic topical DAILY 08/12/23 [History Confirmed 08/12/23] vitamin B complex and vitamin C no.20-folic acid 1 mg capsule (Renal Caps) 1 cap PO DAILY 08/12/23 [History Confirmed 08/12/23] Discharge Plan Discharge Patient Disposition: Xfer Short-Term Hosp Condition: Stable Prescriptions: No Action gabapentin 100 mg capsule 100 mg PO BID Qty: 60 0RF albuterol sulfate 2.5 mg /3 mL (0.083 %) solution for nebulization 2.5 mg inhalation Q4H PRN (Reason: Shortness Of Breath) amiodarone 200 mg tablet 200 mg PO QAM silver sulfadiazine [SSD] 1 % cream 1 applic TOPICAL DAILY Eliquis 5 mg tablet 5 mg PO BID epinephrine 0.3 mg/0.3 mL auto-injector 0.3 mg IM Q10M PRN (Reason: anaphylaxis) Qty: 2 0RF Rx Instructions: for 2 doses sennosides-docusate sodium [Stool Softener-Laxative] 8.6-50 mg tablet 1 tab PO DAILY PRN (Reason: Constipation) metoprolol tartrate 50 mg tablet See Rx Instructions .ROUTE .COMPLEX Rx Instructions: Take 1 tablet by mouth on Friday, Friday, Friday, and Nicholas. Do not take on Friday, , or Friday due to dialysis. acetaminophen 325 mg Tablet 650 mg PO Q6H PRN (Reason: Pain) hydrocodone-acetaminophen 5-325 mg Tablet 1 tab PO Q6H PRN (Reason: Pain) bisacodyl 10 mg Suppository 10 mg DC DAILY PRN (Reason: Constipation) metoprolol tartrate 50 mg tablet 50 mg PO .@1800 ergocalciferol (vitamin D2) 1,250 mcg (50,000 unit) Capsule 1,250 mcg PO Q7D Rx Instructions: on Friday nystatin 100,000 unit/gram Powder 1 applic TOPICAL DAILY Renal Caps 1 mg Capsule 1 cap PO DAILY Vitamin D3 25 mcg (1,000 unit) Capsule 25 mcg PO QAM Lantus Solostar U-100 Insulin 100 unit/mL (3 mL) Insulin Pen 12 unit SUBCUT QPM Novolog FlexPen U-100 Insulin 100 unit/mL (3 mL) insulin pen 6 unit SUBCUT TID Referrals: Misty Ibrahim [Primary Care Provider] - Patient Instructions: Altered Mental Status (ED), Opioid Safety Transfer Attestations Time Spent in Transfer Care: greater than 30 min Quality Metrics Clinical Quality Measures [ No reported AMI, CVA or VTE this stay] Coding Level of Care Code 45721 Total time (in minutes) for Discharge: 45 Diagnoses Sepsis A41.9 DM2 (diabetes mellitus, type 2) E11.9 Hyponatremia E87.1 Afib I48.91 Time Spent (min) 45
[2023-08-14] MEDS: ampicillin 2,000 MG in sodium chloride 0.9% (plus) 50 ML 100 MG IV (14:47)
[2023-08-14] MEDS: cefTRIAXone 2,000 MG in sodium chloride 0.9% (plus) 50 ML 100 MG IV (14:48)
--- NOTE | 2023-08-14 15:15 | PC.NURSE ---
Called report to Patricia Simms and gave to Nasreen Javed RN on 3E. Pt to be transferred to room 3301. Awaiting ambulance for transport.
--- NOTE | 2023-08-14 16:32 | P.PN_ITS ---
Subjective 2 Subjective: no new complaints Medications: Reviewed: Yes Vitals/I&O/Wt Last Vital Signs Temp 98.4 F 08/14/23 16:20 Pulse 90 08/14/23 16:20 Resp 16 08/14/23 16:20 BP 108/58 08/14/23 16:20 Pulse Ox 90 08/14/23 16:20 O2 Del Method Nasal Cannula 08/14/23 11:26 O2 Flow Rate 3 08/14/23 11:26 Weight last 48 hrs Weight 118.132 kg Weight 118.132 kg Weight 117.679 kg Weight 117.679 kg Weight 117.7 kg Physical Exam 2 Narrative: Patient is awake alert, no acute distress currently HEENT S1-S2 regular rate and rhythm per report Lungs clear per report Bilateral lower extremity wounds Urinary Catheter Management: Fuentes: Cath Placed During This Visit: yes Reason for Continuing Indwelling Catheter: Accurate Measurement of Urinary Output in Critically Ill Patients Urinary Catheter Date of Insertion: 08/12/23 Urinary Catheter Time of Insertion: 09:52 Data 08/14/23 05:29 08/14/23 05:29 Micro: Microbiology 08/12/23 09:53 Blood Culture - Preliminary Blood Enterococcus faecalis 08/12/23 18:45 Occult Blood (FIT) - Final Stool - Stool Aspirate 08/12/23 16:46 Blood Culture - Preliminary Blood NEGATIVE TO DATE A&P Assessment and plan (1) ESRD (end stage renal disease) on dialysis: Plan 1. End-stage renal disease: On MWF schedule as outpatient, now presented with altered mental status and positive blood cultures and AV, MV endocarditis -s/p HD today - need to remove HD catheter and replace when cultures neg > 72 hours 2. 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 Anemia: Status post CHUCK with HD yesterday 4. Sepsis, off pressors 5. History of A-fib on amiodarone and Eliquis Patient evaluated using audiovisual cart. Time spent 20 minutes. Attestations 2 Medical Necessity Statement*: per lois Coding Level of Care Code Acute Code for Chg Fwd Diagnoses ESRD (end stage renal disease) on dialysis N18.6; Z99.2
[2023-08-14 17:35] LABS: Glucose Point of Care 173 mg/dL (70-110)
[2023-08-14] MEDS: norepinephrine 4 MG/250 ML BAG 7.5 MG IV (19:22)
[2023-08-18 14:00] LABS: Hepatitis B Surface AG REACTIVE (NON-REACTIVE)
--- OUTSIDE RECORDS SUMMARY | 2023-08-26 11:35 | XMS_ITS ---
Author Name Nadja Ventura Address [address] [place] [address] Phone [phone] Organization [facility] e, NA DOCUMENT DISCLAIMER Multiple document versions may exist, please be sure you review the latest version. The information in the [facility] Progress Note Document represents a providers documented clinical note containing certain health and medical information. It may not contain the complete medical history for the patient and should be independently verified. The represented time in the document is Eastern Time PROVIDER ROUNDING NOTE FRANCISCO Patient:?SIERRA?ABIDA,?1960,?62y,?M Dialysis?Location:?[facility] [facility] Attending?Box Closing Machine Operator:?Lucrecia Service?Date:?07/29/2023 Service?Provider:?Nadja?Lorenzo,? I?met?face?to?face?with?the?patient?today. OVERVIEW The?patient?presented?with?FRANCISCO?on?dialysis. 06/19/2023 Comments:?FRANCISCO?on?CKD?3b.?Baseline?creatinine?1.4-1.6?per&#16 0;report.??FRANCISCO?in?setting?of?sepsis/cellulitis?and?ATN.&#160 ;Creatinine?9,?K?was?high.?Started?HD?05/23.?Still?oliguric.??Swelling?better.? Reports?drinking?little?to?nothing?daily:??ded?on?renal ?recovery,?advised?to?work?to?reach?40?ounces?water&#16 0;daily,?no?caffeine:??monitor?for?fluid?stability.?? Still?oliguric. Medications?and?labs?reviewed. DIALYSIS?PRESCRIPTION ??IHD?3x?Week?Start?date:?07/29/23 ??Dialyzer:?180NRe?Optiflux ??BFR:?450 ??DFR:?Manual?800 ??Potassium:?3.0 ??Sodium:?135 ??EDW:?119 ??Duration:?4:00 ??Calcium:?2.5 ??Bicarb:?32 ??Rx?updated?on:?07/28/2023 TREATMENT?ASSESSMENT Blood?pressure?controlled.?No?changes?indicated.? BP?Sit?Pre ??07/24/2023:?124/58 ??07/22/2023:?115/49 ??07/17/2023:?94/58 BP?Sit?Post ??07/24/2023:?112/84 ??07/22/2023:?139/73 ??07/17/2023:?117/80 Tx?Duration ??07/24/2023:?4:01 ??07/22/2023:?4:01 ??07/17/2023:?4:23 Missed?Treatments 2?-?last?30?days 8?-?last?60?days 3/2?-?recent FLUID?ASSESSMENT Comments:?Continue?to?challenge?UF?to?help?with?leg?edema?but?avoid?hypotension. EDW?(kg) ??07/24/2023:?119.0 ??07/22/2023:?119.0 ??07/17/2023:?119.0 Weight?Pre?(kg) ??07/24/2023:?121.8 ??07/22/2023:?123.3 ??07/17/2023:?120.5 Weight?Post?(kg) ??07/24/2023:?118.9 ??07/22/2023:?121.4 ??07/17/2023:?118.4 PWV?(kg) ??07/24/2023:?-0.1 ??07/22/2023:?2.4 ??07/17/2023:?-0.6 UF?Rate?(mL/kg/hr) ??07/24/2023:?6.1 ??07/22/2023:?3.9 ??07/17/2023:?4 ADEQUACY?ASSESSMENT Comments:?Cr?down?some.?Monitor. Creatinine ??07/24/2023:?3.5 ??07/17/2023:?4.22 ??07/10/2023:?4.15 ACCESS?ASSESSMENT ??Access?Type:?CVCatheter ??Access?SubType:?Tunneled ??Access?Status:?Active?(In?Use)?-?05/28/2023 ??Access?Location:?Chest ??Placed:?05/23/2023 Comments:?FRANCISCO.?If?is?ESRD?is?interested?in?home?therapies. Vascular?access?reviewed.?Current?access?is?functioning?well. ANEMIA?ASSESSMENT Comments:?On?IV?iron?and?CHUCK?protocol. HGB ??07/24/2023:?7.2 ??07/17/2023:?8.2 ??07/10/2023:?8.8 ?? Ferritin ??06/26/2023:?371.0 Mircera,?IVP?(mcg) ??07/24/2023:?75 ??07/10/2023:?30 Iron?Sucrose?(Venofer)?(mg) ??07/24/2023:?100 ??07/10/2023:?100 BMM?ASSESSMENT PTH?low.?Calcium?controlled.?Phosphorus?controlled.?BMM?meds&#160 ;adherence?acceptable.?Counseled?pt?on?meds?adherence.?Referred&# 160;to?dietitian.? Phosphorus,?Calcium ??07/17/2023:?3.5,?- ??07/03/2023:?2.2,?8.6 ??06/21/2023:?2.3,?9.4 ?? Magnesium ??07/03/2023:?1.9 ??06/21/2023:?1.8 ?? PTH,?Intact ??06/21/2023:?120.0 NUTRITION?ASSESSMENT Comments:?Stable. Potassium ??07/24/2023:?4.7 ??07/17/2023:?4.6 ??07/10/2023:?4.4 ?? eNPCR ??07/03/2023:?0.62 PHYSICAL?EXAM Comments:?Obese Johnson?lower?leg?denia?wraps Exam?Performed.?Vital?Signs?Reviewed.?Lungs?-?Clear.?CV&#160 ;-?Blood?pressure?noted.?CV?-?RRR.?EXT?-?No?ulcers. DIAGNOSIS Chief?Complaint:?N17.9?Acute?kidney?failure,?unspecified Patient?is?stable. Patient?data?updated?07/29/2023?at?11:00?AM Signed?By:?Lorenzo,?Nadja???on?07/29/2023?11:02:20?AM END OF DOCUMENT
--- OUTSIDE RECORDS SUMMARY | 2023-08-26 11:35 | XMS_ITS ---
Author Name AriannaRomiAlejandra Address [address] [place] [address] Phone [phone] Organization [facility] e, NA DOCUMENT DISCLAIMER Multiple document versions may exist, please be sure you review the latest version. The information in the [facility] Progress Note Document represents a providers documented clinical note containing certain health and medical information. It may not contain the complete medical history for the patient and should be independently verified. The represented time in the document is Eastern Time PROVIDER ROUNDING NOTE FRANCISCO Patient:?SIERRA?ABIDA,?1960,?62y,?M Dialysis?Location:?[facility] Attending?Claim Inspector:?Nadja?Lorenzo Service?Date:?07/24/2023 Service?Provider:?Alejandra?Arianna,?ACCOUNTING COORDINATOR I?met?face?to?face?with?the?patient?today. OVERVIEW The?patient?presented?with?FRANCISCO?on?dialysis. 06/19/2023 Comments:?FRANCISCO?on?CKD?3b.?Baseline?creatinine?1.4-1.6?per&#16 0;report.??FRANCISCO?in?setting?of?sepsis/cellulitis?and?ATN.&#160 ;Creatinine?9,?K?was?high.?Started?HD?05/23.?Still?oliguric.??Swelling?better.? Reports?drinking?little?to?nothing?daily:??ded?on?renal ?recovery,?advised?to?work?to?reach?40?ounces?water&#16 0;daily,?no?caffeine:??monitor?for?fluid?stability.?? Medications?and?labs?reviewed. DIALYSIS?PRESCRIPTION ??IHD?3x?Week?Start?date:?07/15/23 ??Dialyzer:?180NRe?Optiflux ??BFR:?450 ??DFR:?Manual?800 ??Potassium:?3.0 ??Sodium:?135 ??EDW:?119 ??Duration:?4:00 ??Calcium:?2.5 ??Bicarb:?34 ??Rx?updated?on:?07/15/2023 TREATMENT?ASSESSMENT Comments:?Stop?amlodipine. BP?Sit?Pre ??07/22/2023:?115/49 ??07/17/2023:?94/58 ??07/15/2023:?120/63 BP?Sit?Post ??07/22/2023:?139/73 ??07/17/2023:?117/80 ??07/15/2023:?123/62 Tx?Duration ??07/22/2023:?4:01 ??07/17/2023:?4:23 ??07/15/2023:?4:01 Missed?Treatments 2?-?last?30?days 8?-?last?60?days 2/24?-?recent FLUID?ASSESSMENT Comments:?Continue?to?challenge?UF?to?help?with?leg?edema?but?avoid?hypotension. EDW?(kg) ??07/22/2023:?119.0 ??07/17/2023:?119.0 ??07/15/2023:?119.0 Weight?Pre?(kg) ??07/22/2023:?123.3 ??07/17/2023:?120.5 ??07/15/2023:?123.2 Weight?Post?(kg) ??07/22/2023:?121.4 ??07/17/2023:?118.4 ??07/15/2023:?119.2 PWV?(kg) ??07/22/2023:?2.4 ??07/17/2023:?-0.6 ??07/15/2023:?0.2 UF?Rate?(mL/kg/hr) ??07/22/2023:?3.9 ??07/17/2023:?4 ??07/15/2023:?8.4 ADEQUACY?ASSESSMENT Comments:?Stable spKt/V,?URR,?Creatinine ??07/17/2023:?-,?-,?4.22 ??07/10/2023:?-,?-,?4.15 ??07/03/2023:?1.7,?77,?4.56 ACCESS?ASSESSMENT ??Access?Type:?CVCatheter ??Access?SubType:?Tunneled ??Access?Status:?Active?(In?Use)?-?05/28/2023 ??Access?Location:?Chest ??Placed:?05/23/2023 ANEMIA?ASSESSMENT Comments:?Stable. HGB,?TSAT ??07/17/2023:?8.2,?- ??07/10/2023:?8.8,?- ??07/03/2023:?10.0,?36.0 ?? Ferritin ??06/26/2023:?371.0 Mircera,?IVP?(mcg) ??07/10/2023:?30 Iron?Sucrose?(Venofer)?(mg) ??07/10/2023:?100 BMM?ASSESSMENT Comments:?To?stop?phos?binder. Phosphorus,?Calcium ??07/17/2023:?3.5,?- ??07/03/2023:?2.2,?8.6 ??06/21/2023:?2.3,?9.4 ?? Magnesium ??07/03/2023:?1.9 ??06/21/2023:?1.8 ?? PTH,?Intact ??06/21/2023:?120.0 NUTRITION?ASSESSMENT Comments:?Stable. Albumin,?Potassium ??07/17/2023:?-,?4.6 ??07/10/2023:?-,?4.4 ??07/08/2023:?3.1,?- ?? eNPCR ??07/03/2023:?0.62 PHYSICAL?EXAM Comments:?obese Johnson?lower?leg?denia?wraps Exam?Not?Performed. DIAGNOSIS Chief?Complaint:?N17.9?Acute?kidney?failure,?unspecified Patient?data?updated?07/24/2023?at?12:50?PM Signed?By:?Arianna,?Alejandra,?ACCOUNTING COORDINATOR??on?07/24/2023?12:56:05 PM END OF DOCUMENT
--- OUTSIDE RECORDS SUMMARY | 2023-08-26 11:35 | XMS_ITS ---
Author Name Nadja Ventura Address [address] [place] [address] Phone [phone] Organization [facility] e, NA DOCUMENT DISCLAIMER Multiple document versions may exist, please be sure you review the latest version. The information in the [facility] Progress Note Document represents a providers documented clinical note containing certain health and medical information. It may not contain the complete medical history for the patient and should be independently verified. The represented time in the document is Eastern Time PROVIDER ROUNDING NOTE FRANCISCO Patient:AASHISH?ABIDA,?1960,?62y,?M Dialysis?Location:?[place] Attending?Folding Machine Operator:?Lucrecia Service?Date:?07/08/2023 Service?Provider:?Nadja?Lorenzo,? I?met?face?to?face?with?the?patient?today. OVERVIEW The?patient?presented?with?FRANCISCO?on?dialysis. 06/19/2023 Comments:?FRANCISCO?on?CKD?3b.?Baseline?creatinine?1.4-1.6?per&#16 0;report.??FRANCISCO?in?setting?of?sepsis/cellulitis?and?ATN.&#160 ;Creatinine?9,?K?was?high.?Started?HD?05/23.?Still?olig uric.??Swelling?better.??First?treatment?here.?At?SNF&# 160;[place],?but?no?openings.? He?reports?feeling?better.?Still?with?[facility]?but?has?not&# 160;increased?he?states.?He?is?[facility] DIALYSIS?PRESCRIPTION ??IHD?3x?Week?Start?date:?02/03/24 ??Dialyzer:?180NRe?Optiflux ??BFR:?450 ??DFR:?Manual?800 ??Potassium:?3.0 ??Sodium:?135 ??EDW:?116.9 ??Duration:?4:00 ??Calcium:?2.5 ??Bicarb:?36 ??Rx?updated?on:?06/28/2023 TREATMENT?ASSESSMENT Comments:?Stop?amlodipine. Blood?pressure?low.?Medications?adjusted.? BP?Sit?Pre ??07/05/2023:?112/61 ??07/03/2023:?95/59 ??07/01/2023:?91/43 BP?Sit?Post ??07/05/2023:?100/44 ??07/03/2023:?97/82 ??07/01/2023:?103/50 Tx?Duration ??07/05/2023:?3:59 ??07/03/2023:?4:01 ??07/01/2023:?4:05 Missed?Treatments 3?-?last?30?days 7?-?last?60?days 1/30?-?recent FLUID?ASSESSMENT Comments:?Continue?to?challenge?UF?to?help?with?leg?edema?but?avoid?hypotension. EDW?(kg) ??07/05/2023:?116.9 ??07/03/2023:?116.9 ??07/01/2023:?116.9 Weight?Pre?(kg) ??07/05/2023:?119.0 ??07/03/2023:?118.6 ??07/01/2023:?119.7 Weight?Post?(kg) ??07/05/2023:?116.6 ??07/03/2023:?116.5 ??07/01/2023:?116.5 PWV?(kg) ??07/05/2023:?-0.3 ??07/03/2023:?-0.4 ??07/01/2023:?-0.4 UF?Rate?(mL/kg/hr) ??07/05/2023:?5.2 ??07/03/2023:?4.5 ??07/01/2023:?6.7 ADEQUACY?ASSESSMENT Comments:?Stable spKt/V,?URR,?Creatinine ??07/03/2023:?1.7,?77,?4.56 ??06/26/2023:?-,?-,?4.75 ??06/21/2023:?1.64,?76,?6.06 ACCESS?ASSESSMENT ??Access?Type:?CVCatheter ??Access?SubType:?Tunneled ??Access?Status:?Active?(In?Use)?-?05/28/2023 ??Access?Location:?Chest ??Placed:?05/23/2023 Vascular?access?reviewed.?Current?access?is?functioning?well. ANEMIA?ASSESSMENT Comments:?Stable. HGB,?TSAT ??07/03/2023:?10.0,?36.0 ??06/26/2023:?11.0,?- ??06/21/2023:?12.8,?43.0 ?? Ferritin ??06/26/2023:?371.0 Active?Orders:?Iron?Sucrose?(Venofer)?100?mg?Every?2?we eks.?Mircera?30?mcg?Every?2?weeks. BMM?ASSESSMENT Comments:?To?stop?phos?binder. Phosphorus,?Calcium ??07/03/2023:?2.2,?8.6 ??06/21/2023:?2.3,?9.4 ?? Magnesium ??07/03/2023:?1.9 ??06/21/2023:?1.8 ?? PTH,?Intact ??06/21/2023:?120.0 NUTRITION?ASSESSMENT Comments:?Stable. Albumin,?Potassium ??07/03/2023:?-,?4.3 ??06/26/2023:?-,?4.8 ??06/21/2023:?3.9,?5.6 ?? eNPCR ??07/03/2023:?0.62 PHYSICAL?EXAM Comments:?obese Johnson?lower?leg?denia?wraps Exam?Performed.?Lungs?-?Clear.?CV?-?Blood?pressure?note d.?CV?-?RRR.?EXT?-?2+?edema. DIAGNOSIS Chief?Complaint:?N17.9?Acute?kidney?failure,?unspecified Patient?is?stable. Patient?data?updated?07/08/2023?at?12:56?PM Signed?By:?Lorenzo,?Nadja???on?07/08/2023?12:59:38?PM END OF DOCUMENT
== END 2023-08-14 19:34 | disposition short-term general hospital (02) | DRG 871 ==
LOC: ER 09:37 → ER IP 14:05 → ICU 16:56
PROVIDERS: Hospitalist; Internal Medicine; Admitting Provider Internal Medicine; Emergency Provider Family Medicine; PCP Registered Nurse; Visit Provider Internal Medicine
DX: A41.9 Sepsis, unspecified organism (principal); N18.6 End stage renal disease; R65.21 Severe sepsis with septic shock; N39.0 Urinary tract infection, site not specified; Z16.12 Extended spectrum beta lactamase (ESBL) resistance; J96.11 Chronic respiratory failure with hypoxia; I38 Endocarditis, valve unspecified; M62.82 Rhabdomyolysis; E87.1 Hypo-osmolality and hyponatremia; B95.2 Enterococcus as the cause of diseases classified elsewhere; B96.1 Klebsiella pneumoniae [K. pneumoniae] as the cause of diseases classified elsewhere; E11.22 Type 2 diabetes mellitus with diabetic chronic kidney disease; J44.9 Chronic obstructive pulmonary disease, unspecified; I48.91 Unspecified atrial fibrillation; I34.0 Nonrheumatic mitral (valve) insufficiency; L89.152 Pressure ulcer of sacral region, stage 2; L89.611 Pressure ulcer of right heel, stage 1; Z66 Do not resuscitate; Z99.2 Dependence on renal dialysis; Z11.52 Encounter for screening for COVID-19; Z79.01 Long term (current) use of anticoagulants; Z79.4 Long term (current) use of insulin; Z87.891 Personal history of nicotine dependence; Z89.411 Acquired absence of right great toe; Z89.421 Acquired absence of other right toe(s)
CPT/HCPCS: 36415; 36416; 36430; 36556; 36592; 36600; 51702; 70450; 71045; 73630; 80051; 80053; 81001; 82009; 82274; 82330; 82550; 82805; 82962; 83605; 83690; 83735; 84484; 85014; 85018; 85025; 85730; 86705; 86706; 86850; 86900; 86920; 87040; 87077; 87086; 87106; 87150; 87186; 87205; 87340; 87635; 87804; 90935; 93005; 93306; 93312; 93320; 93325; 96365; 96366; 96367; 96372; 96376; 99291; 99292; C9113; J0290; J0696; J1335; J1644; J1815; J2185; J2270; J2704; J3370; J7050; P9016; Q3014; Q4081

== ENCOUNTER 2023-09-14 00:26 | Inpatient (IN) | payer MEDICAID, SELFPAY ==
[2023-09-14] VITALS (165 sets, daily range): BP systolic 80–134; BP diastolic 41–81; PULSE 50–87; RESP 8–26; TEMP 34.7–36.8; O2SAT 68–100; BMI 39.3
--- NOTE | 2023-09-14 00:48 | XRR_ITS ---
PROCEDURE INFORMATION: Exam: XR Chest Exam date and time: 09/14/2023 12:49 AM Age: 62 years old Clinical indication: Prior surgery; Surgery date: 6+ months; Surgery type: Dialysis cath; Patient HX: Fever. History of chf and copd. RT sided picc in place. ; Additional info: AMS, fever TECHNIQUE: Imaging protocol: Radiologic exam of the chest. Views: 1 view. COMPARISON: CR XR chest 1V portable [id number] 08/12/2023 12:09 PM FINDINGS: Lungs: Hazy alveolar-interstitial progressive infiltrates with small effusions. Pleural spaces: No pneumothorax. Heart/Mediastinum: The heart remains very enlarged. Vasculature: Right IJ PermCath unchanged. Left IJ line removal. Right PICC noted. Advanced diffuse vascular calcification noted. Bones/joints: Unremarkable. XR/XR chest 1V portable [id number] IMPRESSION: Increasing areas of bilateral hazy atelectasis, edema or pneumonia with small effusions.
[2023-09-14 01:09] LABS: Basophils % 0.3 %; Eosinophils # 0.4 10^3/uL (0.0-0.8); Eosinophils % 6.5 %; Hematocrit 22.2 % (37-53); Lymphocytes # 0.5 10^3/uL (0.8-4.8); Lymphocytes % 8.7 %; Mean Corpuscular HGB Conc 29.7 g/dL (30-55); Mean Corpuscular Hemoglobin 29.6 pg (27-33); Mean Corpuscular Volume 99.6 fl (82-101); Mean Platelet Volume 9.3 fL (7.4-10.4); Monocytes # 0.3 10^3/uL (0.2-0.9); Monocytes % 4.8 %; Neutrophils # 4.64 10^3/uL (1.8-7.7); Neutrophils % 79.2 %; Nucleated Red Blood Cells % 0 %; Platelet Count 226 10^3/cmm (157-399); Red Blood Count 2.23 10^6/uL (3.85-5.65); Red Cell Distribution Width 16.5 % (12.1-15.1); White Blood Count 5.86 10^3/uL (3.29-11.43)
--- NOTE | 2023-09-14 01:14 | W.ED.AMS ---
HPI - Altered Mental Status General: Chief Complaint: Altered Mental Status Stated Complaint: AMS Time Seen by Provider: 09/14/23 00:45 History of Present Illness: Patient presents to the ER with no complaints at all. EMS said they were called out for him being altered. Patient stated he is missed dialysis for the last week just because he can. Patient does have endocarditis and is on 2 antibiotics through his PICC line. EMS stated that the skilled nursing stated he had a fever. Patient has no complaints at this time and just wants to go back to the skilled nursing. Patient is normally on 3 L of oxygen per nasal cannula as what he is on here satting 93%. Upon talking to the patient again patient is talking about 2 people who are not there, and singing in profanities and does appear to be altered. Review of Systems General: Reports: 10 or more systems reviewed and unremarkable except in HPI and below PFSH ED PFSH: Medical History Afib ESRD (end stage renal disease) on dialysis Hyponatremia DM2 (diabetes mellitus, type 2) Pressure ulcer of left leg, stage 2 Pressure ulcer of right leg, stage 2 Wound of left foot Excoriation of groin Excoriation of abdomen Wound of left lower extremity Pressure ulcer of left buttock, stage 2 Pressure ulcer of right buttock, stage 2 Wound of right lower extremity Lymphedema Stasis dermatitis Pressure sore on buttocks Inability to perform activities of daily living Kidney dysfunction Fluid overload Cellulitis Hemodialysis status Temporary dialysis catheter placement Acute kidney failure Bradycardia Anasarca Bilateral lower leg cellulitis Metabolic acidosis Hyperkalemia DKA (diabetic ketoacidosis) Falls Generalized weakness FRANCISCO (acute kidney injury) CHF (congestive heart failure) Chronic respiratory failure with hypoxia COPD (chronic obstructive pulmonary disease) Social History Smoking and tobacco/nicotine status: former use of tobacco/nicotine Physical Exam Const: COMMON NORMALS: no acute distress, average body habitus, patient oriented x3, no limitations, healthy appearing, alert and well nourished Neck/C-Spine: COMMON NORMALS: no JVD Chest: COMMONS NORMALS: normal inspection of the chest and normal palpation of entire chest wall Resp: COMMON NORMALS: normal respiratory effort, No retractions, No use of accessory muscles and clear to auscultation bilaterally (Decreased breath sounds bilaterally) AUSCULTATION: clear to auscultation bilaterally (Decreased breath sounds bilaterally) Cardio: COMMON NORMALS: no JVD, regular rate, regular rhythm, S1 normal heart sound present, S2 normal heart sound present, No gallops present (Cardio), No clicks present (Cardio), No murmurs present (Cardio) and No rub (Cardio) RATE: regular rate RHYTHM: regular rhythm HEART SOUNDS: S1 normal heart sound present and S2 normal heart sound present GI: COMMON NORMALS: Normal to inspection, nondistended, normoactive bowel sounds present, Soft to palpation, non-tender, No hepatosplenomegaly present and no masses PALPATION: Yes Soft to palpation and Yes No hepatosplenomegaly present Extremity: NARRATIVE EXTREMITY EXAM: Dressings to both lower extremities, Neuro: COMMON NORMALS: patient oriented x3 SENSORIUM/ORIENTATION: Yes alert Course Vital Signs: Vital signs: Vital Signs Temperature 98.3 F 09/14/23 00:33 Pulse Rate 75 09/14/23 00:33 Respiratory Rate 22 H 09/14/23 00:33 Blood Pressure 94/48 09/14/23 00:33 Pulse Oximetry 93 09/14/23 00:33 Oxygen Delivery Me thod Nasal Cannula 09/14/23 00:33 Oxygen Flow Rate 3 09/14/23 00:33 MDM - Altered Mental Status Medical Decision Making Lab work was obtained which revealed a hemoglobin of 6.6, BUN/creatinine elevated at 54 and 7.8, lactic acid and procalcitonin were normal, white count 5.8, chest x-ray showed atelectasis versus edema versus pneumonia, blood cultures were obtained, patient will be typed screened and transfused 1 unit, ABGs was benign, patient seemed to be more altered during his stay in ER. A CT scan of his chest and head was a attempted the patient would not sit still. Dr. Albright was consulted who actually member the patient from his discharge approximately 4 weeks ago for Enterococcus endocarditis, patient will be admitted to [facility] for altered mental status for further evaluation and treatment. Differential Diagnosis Likely altered mental status; Unlikely alcoholic intoxication, delirium, dementia, hypoglycemia, hyponatremia, subarachnoid hemorrhage or sepsis Medical Records I reviewed the patient's medical records. Lab Data I reviewed the patient's lab results. 09/14/23 00:55 09/14/23 00:55 Radiology Impressions Chest X-Ray 09/14/23 00:48 IMPRESSION: Increasing areas of bilateral hazy atelectasis, edema or pneumonia with small effusions. Laboratory Results WBC 5.86 10^3/uL (3.29-11.43) 09/14/23 00:55 RBC 2.23 10^6/uL (3.85-5.65) L 09/14/23 00:55 Hgb 6.60 g/dL (11.27-16.99) L 09/14/23 00:55 Hct 22.2 % (37-53) L 09/14/23 00:55 MCV 99.6 fl (82-101) 09/14/23 00:55 MCH 29.6 pg (27-33) 09/14/23 00:55 MCHC 29.7 g/dL (30-55) L 09/14/23 00:55 RDW 16.5 % (12.1-15.1) H 09/14/23 00:55 Plt Count 226 10^3/cmm (157-399) 09/14/23 00:55 MPV 9.3 fL (7.4-10.4) 09/14/23 00:55 Neut % (Auto) 79.2 % 09/14/23 00:55 Lymph % (Auto) 8.7 % 09/14/23 00:55 [place] % (Auto) 4.8 % 09/14/23 00:55 Eos % (Auto) 6.5 % 09/14/23 00:55 Baso % (Auto) 0.3 % 09/14/23 00:55 Neut # (Auto) 4.64 10^3/uL (1.8-7.7) 09/14/23 00:55 Lymph # (Auto) 0.5 10^3/uL (0.8-4.8) L 09/14/23 00:55 [place] # (Auto) 0.3 10^3/uL (0.2-0.9) 09/14/23 00:55 Eos # (Auto) 0.4 10^3/uL (0.0-0.8) 09/14/23 00:55 Baso # (Auto) 0.0 10^3/uL (0.0-0.1) 09/14/23 00:55 Nucleated RBC % (auto) 0 % 09/14/23 00:55 Nucleated RBCs # 0.0 /100WBC 09/14/23 00:55 PT 17.70 SECONDS (12.1-14.9) H 09/14/23 02:53 INR 1.40 (0.8-1.2) H 09/14/23 02:53 Specimen Type Arterial 09/14/23 02:24 Sample Site Radial, right 09/14/23 02:24 ABG pH 7.42 (7.35-7.45) 09/14/23 02:24 ABG pCO2 39.4 mmHg (35-45) 09/14/23 02:24 ABG pO2 54.1 mmHg (80.0-100.0) L 09/14/23 02:24 ABG HCO3 25.2 mmol/L (22-26) 09/14/23 02:24 ABG O2 Saturation 87.4 09/14/23 02:24 ABG Base Excess 0.6 mmol/L (-2.0-2.0) 09/14/23 02:24 Van Test Pos 09/14/23 02:24 A-a O2 Gradient 6.3 mmHg (5-10) 09/14/23 02:24 Hematocrit 21.2 % (42-52) L 09/14/23 02:24 Hgb O2 Saturation 84.5 % (95-100) L 09/14/23 02:24 Carboxyhemoglobin 2.9 %THgb (0.4-20.1) 09/14/23 02:24 Methemoglobin 0.5 % (0.4-1.5) 09/14/23 02:24 Total Hemoglobin 6.9 g/dL (14-18) L 09/14/23 02:24 Sodium 142.0 mmol/L (131-143) 09/14/23 02:24 Potassium 4.9 mmol/L (3.5-5.0) 09/14/23 02:24 Glucose 80.0 mg/dL (70-115) 09/14/23 02:24 Ionized Calcium 1.1 mmol/L (1.1-1.4) 09/14/23 02:24 O2 Delivery Device Nc 09/14/23 02:24 O2 Liters/Min 3.0 % 09/14/23 02:24 Fast Food Assistant Restaurant Manager ID [email or web address] 09/14/23 02:24 Sodium 137 mmol/L (136-145) 09/14/23 00:55 Potassium 5.0 mmol/L (3.5-5.1) 09/14/23 00:55 Chloride 99 mmol/L (98-107) 09/14/23 00:55 Carbon Dioxide 23 mmol/L (22-29) 09/14/23 00:55 Anion Gap 20.0 (5-19) H 09/14/23 00:55 BUN 54 mg/dL (8-23) H 09/14/23 00:55 Creatinine 7.8 mg/dL (0.7-1.2) H* 09/14/23 00:55 GFR Calculation 7.1 mL/min (90-130) L 09/14/23 00:55 Glucose 112 mg/dL (65-115) 09/14/23 00:55 Calculated Osmolality 300 mOsm/kg (285-295) H 09/14/23 00:55 Lactic Acid 1.6 mmol/L (0.5-2.2) 09/14/23 00:55 Calcium 8.7 mg/dL (8.5-10.5) 09/14/23 00:55 Phosphorus 6.5 mg/dL (2.5-4.5) H 09/14/23 00:55 Magnesium 2.2 mg/dL (1.7-2.3) 09/14/23 00:55 Total Bilirubin 0.2 mg/dL (0.15-1.2) 09/14/23 00:55 AST 5 U/L (0-40) 09/14/23 00:55 ALT < 5 U/L (0-41) 09/14/23 00:55 Alkaline Phosphatase 141 U/L (40-130) H 09/14/23 00:55 Total Protein 6.3 g/dL (6.6-8.7) L 09/14/23 00:55 Albumin 2.6 g/dL (3.5-5.2) L 09/14/23 00:55 Globulin 3.7 g/dL (1.3-4.6) 09/14/23 00:55 Procalcitonin 0.45 ng/mL (0-0.5) 09/14/23 00:55 All radiology interpretation(s) finalized by discharge Discharge Plan Discharge Patient Disposition: Admitted As Inpatient Clinical Impression: Altered mental status, ESRD (end stage renal disease) on dialysis, Chronic anemia, Endocarditis Condition: Stable Prescriptions: No Action gabapentin 100 mg capsule 100 mg PO BID Qty: 60 0RF albuterol sulfate 2.5 mg /3 mL (0.083 %) solution for nebulization 2.5 mg inhalation Q4H PRN (Reason: Shortness Of Breath) amiodarone 200 mg tablet 200 mg PO QAM silver sulfadiazine [SSD] 1 % cream 1 applic TOPICAL DAILY Eliquis 5 mg tablet 5 mg PO BID epinephrine 0.3 mg/0.3 mL auto-injector 0.3 mg IM Q10M PRN (Reason: anaphylaxis) Qty: 2 0RF Rx Instructions: for 2 doses sennosides-docusate sodium [Stool Softener-Laxative] 8.6-50 mg tablet 1 tab PO DAILY PRN (Reason: Constipation) metoprolol tartrate 50 mg tablet See Rx Instructions .ROUTE .COMPLEX Rx Instructions: Take 1 tablet by mouth on Friday, Friday, Friday, and Friday. Do not take on Friday, , or Friday due to dialysis. acetaminophen 325 mg Tablet 650 mg PO Q6H PRN (Reason: Pain) hydrocodone-acetaminophen 5-325 mg Tablet 1 tab PO Q6H PRN (Reason: Pain) bisacodyl 10 mg Suppository 10 mg NE DAILY PRN (Reason: Constipation) metoprolol tartrate 50 mg tablet 50 mg PO .@1800 ergocalciferol (vitamin D2) 1,250 mcg (50,000 unit) Capsule 1,250 mcg PO Q7D Rx Instructions: on Friday nystatin 100,000 unit/gram Powder 1 applic TOPICAL DAILY Renal Caps 1 mg Capsule 1 cap PO DAILY Vitamin D3 25 mcg (1,000 unit) Capsule 25 mcg PO QAM Lantus Solostar U-100 Insulin 100 unit/mL (3 mL) Insulin Pen 12 unit SUBCUT QPM Novolog FlexPen U-100 Insulin 100 unit/mL (3 mL) insulin pen 6 unit SUBCUT TID Referrals: Misty Ibarhim [Primary Care Provider] - Patient Instructions: Altered Mental Status (ED) Coding Level of Care Code ED Ergon[facility] Specialist for Nadineg Fwjorge alberto
[2023-09-14 01:28] LABS: Alanine Aminotransferase < 5 U/L (0-41); Albumin Level 2.6 g/dL (3.5-5.2); Alkaline Phosphatase 141 U/L (40-130); Aspartate Amino Transferase 5 U/L (0-40); Blood Urea Nitrogen 54 mg/dL (8-23); Calcium 8.7 mg/dL (8.5-10.5); Carbon Dioxide 23 mmol/L (22-29); Chloride 99 mmol/L (98-107); Creatinine Clr Calc Pharmacy 14.1277; Globulin 3.7 g/dL (1.3-4.6); Glomerular Filtration Rate 7.1 mL/min (90-130); Glucose 112 mg/dL (65-115); Lactic Sepsis W/Reflex 1.6 mmol/L (0.5-2.2); Magnesium 2.2 mg/dL (1.7-2.3); Osmolality Calculated 300 mOsm/kg (285-295); Phosphorus 6.5 mg/dL (2.5-4.5); Sodium 137 mmol/L (136-145); Total Bilirubin 0.2 mg/dL (0.15-1.2); Total Protein 6.3 g/dL (6.6-8.7)
[2023-09-14 01:34] LABS: Procalcitonin 0.45 ng/mL (0-0.5)
[2023-09-14 02:35] LABS: ABG PCO2 39.4 mmHg (35-45); ABG PH Result 7.42 (7.35-7.45); Alveolar-Arterial Oxygen Gradi 6.3 mmHg (5-10); Arterial Blood Gas Hematocrit 21.2 % (42-52); Base Excess ABG 0.6 mmol/L (-2.0-2.0); Blood Gas Allen Test Pos; Blood Gas Sample Site Radial, right; Blood Gas Sample Type Arterial; Carboxyhemoglobin 2.9 %THgb (0.4-20.1); HCO3 ABG 25.2 mmol/L (22-26); HGB O2 Sat 84.5 % (95-100); Ionized Calcium Level - ABG 1.1 mmol/L (1.1-1.4); Methemoglobin 0.5 % (0.4-1.5); Oxygen Device NC; Oxygen Saturation ABG 87.4; PO2 ABG 54.1 mmHg (80.0-100.0); Potassium Level - ABG 4.9 mmol/L (3.5-5.0); Total Hemoglobin 6.9 g/dL (14-18)
[2023-09-14 04:13] LABS: Influenza A by IFA negative (Negative); Influenza B by IFA negative (Negative); SARS Covid-2 Antigen negative (Negative)
[2023-09-14 04:50] LABS: Urine Appearance Turbid (CLEAR); Urine Color Brown (Yellow)
[2023-09-14 04:51] LABS: Add Urine Microscopic? YES; Bilirubin Urine Neg (Negative); Blood Urine 3+ (Negative); Glucose Urine UA Norm (Normal); Ketones Urine Negative (Negative); Leukocyte Esterase Urine 2+ (Negative); Nitrate Urine Negative (Negative); Protein Urine 1+ (Negative); Urobilinogen Urine Neg (Negative); pH Urine 5 (5-7)
[2023-09-14 04:52] LABS: Add Urine Culture? Yes; Amorphous Sediment Urine TRACE /hpf; Bacteria Urine 1+ /hpf; Mucus Urine TRACE /hpf; RBC Urine 25-40 /hpf (0-2); Squamous Epithelial Cell Urine 0-4 /hpf (0-5); WBC Urine 55-80 /hpf (0-5)
[2023-09-14 06:38] LABS: Glucose Point of Care 63 mg/dL (70-110)
[2023-09-14] MEDS: dextrose 10% 250 ML 1000 ML IV (06:59)
--- NOTE | 2023-09-14 07:24 | P.HP_ITS ---
Providers/Chief Complaint 2 Admitting Physician: Jen Albright MD Primary Care Provider: Misty Ibrahim Chief Complaint: AMS History of Present Illness Geronimo Barahona is a 62 year old male dialysis patient with history of diabetes and hypertension, recent history of Enterococcus faecalis endocarditis with FELICITY having shown multiple vegetations involving the mitral valve 1.7 x 1.1 cm, aortic valve vegetation 1.48 cm. Blood cultures were positive for Enterococcus faecalis for which patient was on treatment with ampicillin and ceftriaxone when he had presented here in late July 2023. He was eventually transferred to [facility] in view of large vegetations and concern for likely cardiothoracic intervention. I am uncertain regarding the details of this admission. Medical records have been requested. It appears patient was discharged to [facility] to complete his IV antibiotics. Reportedly he missed dialysis over the past week at the [facility] and is being brought in today with chief complaints of altered mental status. History is not obtainable from the patient as he is altered. [facility] patient was hypoglycemic with blood sugar in the 60s. He has received 10% dextrose. Currently afebrile, hemodynamically stable. Review of Systems 2 General: Reports: ROS unobtainable due to mental status Medications/Allergies Home Medications Medication Instructions Recorded Confirmed Last Taken Type albuterol sulfate 2.5 mg/3 mL 2.5 mg inhalation Q4H PRN 10/03/22 09/12/23 Unknown History (0.083 %) solution for nebulization Shortness Of Breath amiodarone 200 mg tablet 200 mg PO QAM 10/03/22 09/12/23 08/12/23 History apixaban 5 mg tablet (Eliquis) 5 mg PO BID 03/11/23 09/12/23 08/12/23 History silver sulfadiazine 1 % topical 1 applic topical DAILY 03/11/23 09/12/23 08/11/23 History cream (SSD) epinephrine 0.3 mg/0.3 mL 0.3 mg (0.3 mL) IM Q10M PRN 03/17/23 09/12/23 Unknown Rx injection, auto-injector anaphylaxis #2 ea gabapentin 100 mg capsule 100 mg PO BID #60 caps 05/27/23 09/12/23 08/12/23 Rx metoprolol tartrate 50 mg tablet See Rx Instructions .Route .COMPLEX 06/05/23 09/12/23 08/11/23 History sennosides 8.6 mg-docusate sodium 1 tab PO DAILY PRN Constipation 06/05/23 09/12/23 Unknown History 50 mg tablet (Stool Softener-Laxative) acetaminophen 325 mg tablet 650 mg PO Q6H PRN Pain 08/12/23 09/12/23 08/04/23 History bisacodyl 10 mg rectal suppository 10 mg ME DAILY PRN Constipation 08/12/23 09/12/23 Unknown History cholecalciferol (vitamin D3) 25 25 mcg PO QAM 08/12/23 09/12/23 08/12/23 History mcg (1,000 unit) capsule (Vitamin D3) ergocalciferol (vitamin D2) 1,250 1,250 mcg PO Q7D 08/12/23 09/12/23 08/08/23 History mcg (50,000 unit) capsule hydrocodone 5 mg-acetaminophen 325 1 tab PO Q6H PRN Pain 08/12/23 09/12/23 08/12/23 History mg tablet insulin aspart U-100 100 unit/mL 6 unit SUBCUT TID 08/12/23 09/12/23 08/12/23 History (3 mL) subcutaneous pen (Novolog FlexPen U-100 Insulin aspart) insulin glargine 100 unit/mL (3 12 unit SUBCUT QPM 08/12/23 09/12/23 08/11/23 History mL) subcutaneous pen (Lantus Solostar U-100 Insulin) metoprolol tartrate 50 mg tablet 50 mg PO .@1800 08/12/23 09/12/23 08/11/23 History nystatin 100,000 unit/gram topical 1 applic topical DAILY 08/12/23 09/12/23 08/11/23 History powder vitamin B complex and vitamin C 1 cap PO DAILY 08/12/23 09/12/23 08/11/23 History no.20-folic acid 1 mg capsule (Renal Caps) Allergies Allergy/AdvReac Type Severity Reaction Status Date / Time amoxicillin [From Augmentin] Allergy Mild rash Verified 09/12/23 09:18 clavulanic acid Allergy Mild rash Verified 09/12/23 09:18 [From Augmentin] levofloxacin Allergy Mild rash Verified 09/12/23 09:18 PFSH Acute 2 PFSH: Medical History Afib ESRD (end stage renal disease) on dialysis Hyponatremia DM2 (diabetes mellitus, type 2) Pressure ulcer of left leg, stage 2 Pressure ulcer of right leg, stage 2 Wound of left foot Excoriation of groin Excoriation of abdomen Wound of left lower extremity Pressure ulcer of left buttock, stage 2 Pressure ulcer of right buttock, stage 2 Wound of right lower extremity Lymphedema Stasis dermatitis Pressure sore on buttocks Inability to perform activities of daily living Kidney dysfunction Fluid overload Cellulitis Hemodialysis status Temporary dialysis catheter placement Acute kidney failure Bradycardia Anasarca Bilateral lower leg cellulitis Metabolic acidosis Hyperkalemia DKA (diabetic ketoacidosis) Falls Generalized weakness FRANCISCO (acute kidney injury) CHF (congestive heart failure) Chronic respiratory failure with hypoxia COPD (chronic obstructive pulmonary disease) Social History Smoking and tobacco/nicotine status: former use of tobacco/nicotine Vitals/I&O/Wt Last Vital Signs Temp 97.4 F L 09/14/23 05:21 Pulse 72 09/14/23 05:13 Resp 24 H 09/14/23 05:13 BP 117/56 09/14/23 05:13 Pulse Ox 91 09/14/23 04:40 O2 Del Method Nasal Cannula 09/14/23 04:31 O2 Flow Rate 3 09/14/23 02:45 Weight last 48 hrs Weight 133.526 kg Weight 132.903 kg Weight 131.542 kg Physical Exam 2 Narrative: General: No acute distress, AO x3 HEENT: PERRLA, pupils bilaterally equal and reactive, pallors not present Chest: Normal vesicular breath sounds, no added sounds, equal good air entry bilaterally CVS: S1-S2 regular, no murmurs, no tachycardia, no gallops, no rubs Abdomen: Soft, nontender, no organomegaly, bowel sounds present Neuro: No focal deficits, no facial deformity, AO x3, power 5/5 in all limbs Extremities: Healthy surgical dressing present on the right hip, mild tenderness, soft no erythema. Data 09/14/23 00:55 09/14/23 00:55 Other Labs: Radiology Impressions Chest X-Ray 09/14/23 00:48 IMPRESSION: Increasing areas of bilateral hazy atelectasis, edema or pneumonia with small effusions. Laboratory Results WBC 5.86 10^3/uL (3.29-11.43) 09/14/23 00:55 RBC 2.23 10^6/uL (3.85-5.65) L 09/14/23 00:55 Hgb 6.60 g/dL (11.27-16.99) L 09/14/23 00:55 Hct 22.2 % (37-53) L 09/14/23 00:55 MCV 99.6 fl (82-101) 09/14/23 00:55 MCH 29.6 pg (27-33) 09/14/23 00:55 MCHC 29.7 g/dL (30-55) L 09/14/23 00:55 RDW 16.5 % (12.1-15.1) H 09/14/23 00:55 Plt Count 226 10^3/cmm (157-399) 09/14/23 00:55 MPV 9.3 fL (7.4-10.4) 09/14/23 00:55 Neut % (Auto) 79.2 % 09/14/23 00:55 Lymph % (Auto) 8.7 % 09/14/23 00:55 [place] % (Auto) 4.8 % 09/14/23 00:55 Eos % (Auto) 6.5 % 09/14/23 00:55 Baso % (Auto) 0.3 % 09/14/23 00:55 Neut # (Auto) 4.64 10^3/uL (1.8-7.7) 09/14/23 00:55 Lymph # (Auto) 0.5 10^3/uL (0.8-4.8) L 09/14/23 00:55 [place] # (Auto) 0.3 10^3/uL (0.2-0.9) 09/14/23 00:55 Eos # (Auto) 0.4 10^3/uL (0.0-0.8) 09/14/23 00:55 Baso # (Auto) 0.0 10^3/uL (0.0-0.1) 09/14/23 00:55 Nucleated RBC % (auto) 0 % 09/14/23 00:55 Nucleated RBCs # 0.0 /100WBC 09/14/23 00:55 PT 17.70 SECONDS (12.1-14.9) H 09/14/23 02:53 INR 1.40 (0.8-1.2) H 09/14/23 02:53 Specimen Type Arterial 09/14/23 02:24 Sample Site Radial, right 09/14/23 02:24 ABG pH 7.42 (7.35-7.45) 09/14/23 02:24 ABG pCO2 39.4 mmHg (35-45) 09/14/23 02:24 ABG pO2 54.1 mmHg (80.0-100.0) L 09/14/23 02:24 ABG HCO3 25.2 mmol/L (22-26) 09/14/23 02:24 ABG O2 Saturation 87.4 09/14/23 02:24 ABG Base Excess 0.6 mmol/L (-2.0-2.0) 09/14/23 02:24 Van Test Pos 09/14/23 02:24 A-a O2 Gradient 6.3 mmHg (5-10) 09/14/23 02:24 Hematocrit 21.2 % (42-52) L 09/14/23 02:24 Hgb O2 Saturation 84.5 % (95-100) L 09/14/23 02:24 Carboxyhemoglobin 2.9 %THgb (0.4-20.1) 09/14/23 02:24 Methemoglobin 0.5 % (0.4-1.5) 09/14/23 02:24 Total Hemoglobin 6.9 g/dL (14-18) L 09/14/23 02:24 Sodium 142.0 mmol/L (131-143) 09/14/23 02:24 Potassium 4.9 mmol/L (3.5-5.0) 09/14/23 02:24 Glucose 80.0 mg/dL (70-115) 09/14/23 02:24 Ionized Calcium 1.1 mmol/L (1.1-1.4) 09/14/23 02:24 O2 Delivery Device Nc 09/14/23 02:24 O2 Liters/Min 3.0 % 09/14/23 02:24 Stitch Bonding Machine Operator ID [email or web address] 09/14/23 02:24 Sodium 137 mmol/L (136-145) 09/14/23 00:55 Potassium 5.0 mmol/L (3.5-5.1) 09/14/23 00:55 Chloride 99 mmol/L (98-107) 09/14/23 00:55 Carbon Dioxide 23 mmol/L (22-29) 09/14/23 00:55 Anion Gap 20.0 (5-19) H 09/14/23 00:55 BUN 54 mg/dL (8-23) H 09/14/23 00:55 Creatinine 7.8 mg/dL (0.7-1.2) H* 09/14/23 00:55 GFR Calculation 7.1 mL/min (90-130) L 09/14/23 00:55 Glucose 112 mg/dL (65-115) 09/14/23 00:55 POC Glucose 63 mg/dL (70-110) L 09/14/23 06:34 Calculated Osmolality 300 mOsm/kg (285-295) H 09/14/23 00:55 Lactic Acid 1.6 mmol/L (0.5-2.2) 09/14/23 00:55 Calcium 8.7 mg/dL (8.5-10.5) 09/14/23 00:55 Phosphorus 6.5 mg/dL (2.5-4.5) H 09/14/23 00:55 Magnesium 2.2 mg/dL (1.7-2.3) 09/14/23 00:55 Total Bilirubin 0.2 mg/dL (0.15-1.2) 09/14/23 00:55 AST 5 U/L (0-40) 09/14/23 00:55 ALT < 5 U/L (0-41) 09/14/23 00:55 Alkaline Phosphatase 141 U/L (40-130) H 09/14/23 00:55 Total Protein 6.3 g/dL (6.6-8.7) L 09/14/23 00:55 Albumin 2.6 g/dL (3.5-5.2) L 09/14/23 00:55 Globulin 3.7 g/dL (1.3-4.6) 09/14/23 00:55 Procalcitonin 0.45 ng/mL (0-0.5) 09/14/23 00:55 Urine Color Brown (Yellow) A 09/14/23 04:32 Urine Appearance Turbid (CLEAR) A 09/14/23 04:32 Urine pH 5 (5-7) 09/14/23 04:32 Ur Specific [place] 1.020 (1.005-1.030) 09/14/23 04:32 Urine Protein 1+ (Negative) H 09/14/23 04:32 Urine Glucose (UA) Norm (Normal) 09/14/23 04:32 Urine Ketones Negative (Negative) 09/14/23 04:32 Urine Blood 3+ (Negative) H 09/14/23 04:32 Urine Nitrate Negative (Negative) 09/14/23 04:32 Urine Bilirubin Neg (Negative) 09/14/23 04:32 Urine Urobilinogen Neg mg/dL (Negative) 09/14/23 04:32 Ur Leukocyte Esterase 2+ (Negative) H 09/14/23 04:32 Urine RBC 25-40 /hpf (0-2) H 09/14/23 04:32 Urine WBC 55-80 /hpf (0-5) H 09/14/23 04:32 Ur Squamous Epith Cells 0-4 /hpf (0-5) H 09/14/23 04:32 Amorphous Sediment Trace /hpf 09/14/23 04:32 Urine Bacteria 1+ /hpf (NONE) H 09/14/23 04:32 Coarse Granular Casts 5-10 /lpf H 09/14/23 04:32 Urine Mucus Trace /hpf 09/14/23 04:32 Urine Yeast Trace /hpf 09/14/23 04:32 Influenza Type A Ag negative (Negative) 09/14/23 03:52 Influenza Type B Ag negative (Negative) 09/14/23 03:52 SARS-CoV-2 Ag (Rapid) negative (Negative) 09/14/23 03:52 Blood Type A Positive 09/14/23 02:53 Rho(D) Type Rh positive 09/14/23 02:53 Antibody Screen Negative 09/14/23 02:53 Crossmatch See Detail 09/14/23 02:53 A&P Assessment and plan (1) Endocarditis: Qualifiers: Chronicity: unspecified Endocarditis type: infective Infective endocarditis organism: bacterial Qualified Code(s): I33.0 - Acute and subacute infective endocarditis (2) Enterococcus faecalis infection: (3) Anemia: (4) ESRD (end stage renal disease) on dialysis: (5) Hypoglycemia: Plan 62-year-old male with recent complicated course as noted above presenting to the hospital with altered mental status. Likely to be multifactorial, may be related to uremia, missed dialysis over the last week, acute on chronic anemia, hypoglycemia. Patient has received 250 mL of 10% dextrose. Will recheck glucose after this intervention. Recent complicated history of endocarditis with vegetations involving both AV and mitral valves. Check CT head with and without contrast to evaluate for possibility of septic embolization. Will request records from [facility] admission. Patient had been transferred to the cardiothoracic surgery could follow along with infectious disease and primary medical teams at a higher center. Uncertain if he underwent any surgical interventions. Ceftriaxone 2 g IV every 24 hours and ampicillin 2 g every 12 hours renally dosed for recent endocarditis. Patient has not yet completed 6 weeks of therapy. Requested stat blood cultures, these are yet to be drawn. Anemia, acute on chronic, 6.6. No reported bleeding. Protonix 40 mg IV every 12 hours Ordered for transfusion of 1 unit of packed red blood cell. Repeat H&H posttransfusion. Holding all insulin in view of hypoglycemia. Nephrology consulted, patient will need hemodialysis today. Further orders depending on clinical course DVT prophylaxis: SCDs only for now, patient is typically on Eliquis. Will obtain CT head prior to resuming oral anticoagulation. DNR/DNI per last admission. Patient is currently unable to communicate his preferences. Attestations 2 Medical Necessity Statement*: Greater than 2 midnight admission will be needed Coding Level of Care Code Acute Code for Chg Fwd High MDM includes number and complexity of problems actively addressed during encounter, amount and/or complexity of data reviewed/ordered and described risk of complication, morbidity or mortality of management as documented Diagnoses Endocarditis I33.0 Chronicity: unspecified Endocarditis type: infective Infective endocarditis organism: bacterial Enterococcus faecalis infection A49.8 Anemia D64.9 ESRD (end stage renal disease) on dialysis N18.6; Z99.2 Hypoglycemia E16.2
--- NOTE | 2023-09-14 07:32 | P.CONIM_ITS ---
Providers/Reason For Consult 2 Consulting Physician/Specialty*: [facility]/Nephrology Reason for Consult*: ESRD Attending Physician: Jen Albright MD Primary Care Provider: Misty Ibrahim History of Present Illness History of Present Illness Geronimo Barahona is a 62 year old male Patient is a 62-year-old male with past medical history of hypertension, end-stage renal disease on dialysis, diabetes, recent history of E faecalis endocarditis and patient was discharged to [facility] to complete his IV antibiotics. Patient presented to the emergency department from a [facility] due to altered mental status. Patient missed dialysis for about a week. He was noted to be hypoglycemic with a blood sugars in the 60s other lab data was significant for hemoglobin of 6.6 potassium was 5 point creatinine was 7.8. CT abdomen showed cholelithiasis, CT angiogram of the chest was negative for PE but showed pulmonary edema and cardiomegaly. Review of Systems 2 Narrative: other ros negative Medications/Allergies Home Medications Medication Instructions Recorded Confirmed Last Taken Type albuterol sulfate 2.5 mg/3 mL 2.5 mg inhalation Q4H PRN 10/03/22 09/14/23 Unknown History (0.083 %) solution for nebulization Shortness Of Breath amiodarone 200 mg tablet 200 mg PO QAM 10/03/22 09/14/23 08/12/23 History apixaban 5 mg tablet (Eliquis) 5 mg PO BID 03/11/23 09/14/23 08/12/23 History silver sulfadiazine 1 % topical 1 applic topical DAILY 03/11/23 09/14/23 08/11/23 History cream (SSD) acetaminophen 325 mg tablet 650 mg PO Q6H PRN Pain 08/12/23 09/14/23 08/04/23 History bisacodyl 10 mg rectal suppository 10 mg HI DAILY PRN Constipation 08/12/23 09/14/23 Unknown History hydrocodone 5 mg-acetaminophen 325 1 tab PO Q6H PRN Pain 08/12/23 09/14/23 08/12/23 History mg tablet insulin aspart U-100 100 unit/mL See Rx Instructions .Route .COMPLEX 08/12/23 09/14/23 08/12/23 History (3 mL) subcutaneous pen (Novolog FlexPen U-100 Insulin aspart) metoprolol tartrate 50 mg tablet See Rx Instructions .Route .COMPLEX 08/12/23 09/14/23 08/11/23 History nystatin 100,000 unit/gram topical 1 applic topical DAILY 08/12/23 09/14/23 08/11/23 History powder Saccharomyces boulardii 250 mg 250 mg PO BID 09/14/23 09/14/23 Unknown History capsule albuterol sulfate 90 mcg/actuation 2 puff inhalation Q6H PRN 09/14/23 09/14/23 Unknown History aerosol inhaler (Ventolin HFA) Shortness Of Breath amlodipine 10 mg tablet 10 mg PO DAILY 09/14/23 09/14/23 Unknown History atorvastatin 40 mg tablet 40 mg PO DAILY 09/14/23 09/14/23 Unknown History bumetanide 1 mg tablet See Rx Instructions .Route .COMPLEX 09/14/23 09/14/23 Unknown History calcium acetate 667 mg tablet 667 mg PO TID 09/14/23 09/14/23 Unknown History clopidogrel 75 mg tablet 75 mg PO DAILY 09/14/23 09/14/23 Unknown History gabapentin 100 mg capsule 100 mg PO TID 09/14/23 09/14/23 Unknown History insulin degludec 100 unit/mL (3 15 unit SUBCUT DAILY 09/14/23 09/14/23 Unknown History mL) subcutaneous pen (Tresiba FlexTouch U-100 insulin) sevelamer carbonate 800 mg tablet 800 mg PO TID 09/14/23 09/14/23 Unknown History (Renvela) Allergies Allergy/AdvReac Type Severity Reaction Status Date / Time amoxicillin [From Augmentin] Allergy Mild rash Verified 09/12/23 09:18 clavulanic acid Allergy Mild rash Verified 09/12/23 09:18 [From Augmentin] levofloxacin Allergy Mild rash Verified 09/12/23 09:18 Current Medications Generic Name Dose Route Start Last Admin Trade Name Freq PRN Reason Stop Dose Admin Dextrose 250 mls @ 1,000 mls/hr 09/14/23 06:44 09/14/23 07:15 D10w IV Infused PRN PRN Infusion HYPOGLYCEMIA PFSH Acute 2 PFSH: Medical History Afib ESRD (end stage renal disease) on dialysis Hyponatremia DM2 (diabetes mellitus, type 2) Pressure ulcer of left leg, stage 2 Pressure ulcer of right leg, stage 2 Wound of left foot Excoriation of groin Excoriation of abdomen Wound of left lower extremity Pressure ulcer of left buttock, stage 2 Pressure ulcer of right buttock, stage 2 Wound of right lower extremity Lymphedema Stasis dermatitis Pressure sore on buttocks Inability to perform activities of daily living Kidney dysfunction Fluid overload Cellulitis Hemodialysis status Temporary dialysis catheter placement Acute kidney failure Bradycardia Anasarca Bilateral lower leg cellulitis Metabolic acidosis Hyperkalemia DKA (diabetic ketoacidosis) Falls Generalized weakness FRANCISCO (acute kidney injury) CHF (congestive heart failure) Chronic respiratory failure with hypoxia COPD (chronic obstructive pulmonary disease) Social History Smoking and tobacco/nicotine status: former use of tobacco/nicotine Vitals/I&O/Wt Last Vital Signs Temp 97.4 F L 09/14/23 05:21 Pulse 72 09/14/23 05:13 Resp 24 H 09/14/23 05:13 BP 117/56 09/14/23 05:13 Pulse Ox 91 09/14/23 04:40 O2 Del Method Nasal Cannula 09/14/23 04:31 O2 Flow Rate 3 09/14/23 02:45 09/13/23 09/14/23 09/14/23 22:59 06:59 14:59 Intake Total 250 / 250 Balance 250 / 250 Weight last 48 hrs Weight 133.526 kg Weight 132.903 kg Weight 131.542 kg Physical Exam 2 Narrative: On BiPAP, no distress s2s2 RRR per report Lungs clear per report + edema Data 09/15/23 07:05 09/15/23 07:05 A&P Assessment and plan (1) ESRD (end stage renal disease) on dialysis: 1. End-stage renal disease: On MWF schedule for dialysis HD today Ultrafiltration as tolerated, patient currently on BiPAP Patient received contrast with CTs. May require HD again tomorrow 2. Altered mental status: Likely multifactorial, workup pending 3. Acute on chronic respiratory failure, currently on BiPAP, HD as above and ultrafiltration as tolerated 4. Anemia, plan for transfusion 5. Recent infective endocarditis Consult Attestations 2 Medical Necessity Statement: per mediicne team Coding Level of Care Code Acute Code for Chg Fwd Diagnoses ESRD (end stage renal disease) on dialysis N18.6; Z99.2
[2023-09-14 07:59] LABS: Hepatitis B Surface AB 10.2 (11.5-1000); Hepatitis B Surface Antigen Non-Reactive (Nonreactive)
[2023-09-14] MEDS: acetaminophen 1,000 MG/100 ML PIGGYBACK 400 MG IV (08:29)
[2023-09-14 08:32] LABS: Glucose Point of Care 98 mg/dL (70-110)
--- NOTE | 2023-09-14 09:20 | PC.PHAR ---
PER [facility] MEDICATION LIST 09/14/23
[2023-09-14 09:36] LABS: Glucose Point of Care 83 mg/dL (70-110)
--- NOTE | 2023-09-14 10:08 | CTR_ITS ---
PROCEDURE INFORMATION: Exam: CTA Chest With Contrast Exam date and time: 09/14/2023 11:25 AM Age: 62 years old Clinical indication: Other: AMS; Patient HX: PT moving and not following instructions; Additional info: Resp failure TECHNIQUE: Imaging protocol: Computed tomographic angiography of the chest with contrast. Exam focused on the arteries. 3D rendering (Not supervised by radiologist): MIP and/or 3D reconstructed images were created by the technologist. Radiation optimization: All CT scans at this facility use at least one of these dose optimization techniques: automated exposure control; mA and/or kV adjustment per patient size (includes targeted exams where dose is matched to clinical indication); or iterative reconstruction. Contrast material: OMNI 350; Contrast volume: 60 ml; Contrast route: INTRAVENOUS (IV); COMPARISON: CR (CHEST, ) 09/14/2023 12:49 AM RADIATION DOSE METRICS: Total DLP (mGy-cm): 1278 FINDINGS: Limitations: The study is technically limited by motion artifact. Tubes, catheters and devices: There is a tunneled right jugular dialysis catheter with the distal tip in the right atrium. There is a right arm PICC with the tip at/near the superior cavoatrial junction. Pulmonary arteries: No sign of central acute pulmonary embolism. Cannot confidently evaluate for segmental/subsegmental emboli in the lung bases due to motion artifact. Aorta: No thoracic aortic aneurysm or dissection. Lungs: Bilateral dependent/compressive atelectasis. Thickening of the interlobular septa compatible with interstitial edema. Focal ground-glass opacity in the anterior right upper lobe, potentially due to focal alveolar edema given the other findings. Pleural spaces: Small bilateral pleural effusions. No pneumothorax. Heart: The heart is not enlarged. No pericardial effusion. Coronary arteries: Calcified coronary artery atherosclerotic plaque visualized. Lymph nodes: No pathologically enlarged lymph nodes. Bones/joints: No acute osseous abnormality. Soft tissues: Bilateral superficial body wall edema. CT/CT angio chest PE protcl [id number] IMPRESSION: 1. No central acute pulmonary embolism. Cannot confidently evaluate segmental/subsegmental vessels. 2. Interstitial pulmonary edema, which could be cardiogenic or noncardiogenic. 3. Small pleural effusions.
--- NOTE | 2023-09-14 10:08 | CTR_ITS ---
PROCEDURE INFORMATION: Exam: CT Abdomen And Pelvis Without Contrast Exam date and time: 09/14/2023 11:25 AM Age: 62 years old Clinical indication: Abdominal pain; Patient HX: PT not following instructions and moving; Additional info: Abdominal distenton, abdominal pain TECHNIQUE: Imaging protocol: Computed tomography of the abdomen and pelvis without contrast. Radiation optimization: All CT scans at this facility use at least one of these dose optimization techniques: automated exposure control; mA and/or kV adjustment per patient size (includes targeted exams where dose is matched to clinical indication); or iterative reconstruction. COMPARISON: CT kidney stone [id number] 08/02/2023 6:27 PM RADIATION DOSE METRICS: Total DLP (mGy-cm): 1278 FINDINGS: Limitations: The study is technically limited by motion artifact. Liver: The liver is homogeneous and is not enlarged. Gallbladder and bile ducts: There is cholelithiasis. No gallbladder wall thickening. No pericholecystic fluid or inflammation. No biliary ductal dilation. Pancreas: No peripancreatic inflammation. No pancreatic ductal dilation. Spleen: Calcified granulomas in a prominent spleen. Adrenal glands: No adrenal mass. Kidneys and ureters: No hydronephrosis. No nephrolithiasis. Stomach and bowel: No bowel obstruction or diverticulitis. Appendix: No evidence of appendicitis. Intraperitoneal space: No ascites or pneumoperitoneum. Vasculature: No abdominal aortic aneurysm. Lymph nodes: No pathologically enlarged lymph nodes. Urinary bladder: No urinary bladder calculus or wall thickening. Reproductive: Unremarkable as visualized. Bones/joints: Multilevel disc degeneration facet arthropathy in the lumbar spine. Multiple chronic lumbar vertebral body compression injuries. Soft tissues: Bilateral superficial body wall edema. CT/CT abdomen pelvis wo con [id number] IMPRESSION: Cholelithiasis without signs of acute cholecystitis.
--- NOTE | 2023-09-14 10:16 | CTR_ITS ---
PROCEDURE INFORMATION: Exam: CT Head Without Contrast Exam date and time: 09/14/2023 11:22 AM Age: 62 years old Clinical indication: Altered mental status/memory loss; Patient HX: PT moving and not following instructions; Additional info: AMS TECHNIQUE: Imaging protocol: Computed tomography of the head without contrast. Radiation optimization: All CT scans at this facility use at least one of these dose optimization techniques: automated exposure control; mA and/or kV adjustment per patient size (includes targeted exams where dose is matched to clinical indication); or iterative reconstruction. COMPARISON: CT head wo con* [id number] 08/12/2023 12:37 PM RADIATION DOSE METRICS: Total DLP (mGy-cm): 935.28 FINDINGS: Brain: No acute intracranial hemorrhage or abnormal intracranial mass effect is identified. Chronic small-vessel ischemic changes involving bilateral cerebral hemispheres. Focal chronic encephalomalacia right frontoparietal subcortical white matter similar to prior study. 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 All of these findings are similar to 08/12/2023. No new intracranial hemorrhage or new intracranial mass effect is identified. There are motion induced artifacts on multiple images that could potentially obscure subtle pathology. Cerebral ventricles: The ventricles are stable size and position compared to 08/12/2023. No obvious midline shift.. Paranasal sinuses: Chronic opacification of left maxillary sinus which is mildly hypoplastic. Nasal septum is deviated to the right. Mastoid air cells: Visualized portions of mastoid sinuses are not opacified. Bones/joints: No obvious fracture or aggressive destructive lesion involving the cranium. Soft tissues: Other than as stated above, no obvious acute abnormality. CT/CT head wo con* [id number] IMPRESSION: No acute intracranial hemorrhage or mass effect or obvious new intracranial abnormality compared to 08/12/2023.
[2023-09-14] MEDS: haloperidol inj 5 mg/mL INJ 1 mL 1 MG IVP ×2 (10:17→11:27)
[2023-09-14] MEDS: LORazepam 2 mg/mL INJ 10 mL MDV 1 MG IVP (10:17)
--- NOTE | 2023-09-14 10:17 | USR_ITS ---
PROCEDURE INFORMATION: Exam: US Duplex Lower Extremity Veins, Bilateral Exam date and time: 09/14/2023 7:04 PM Age: 62 years old Clinical indication: Screening exam; Dvt; Additional info: Dvt, will scan once patient is done with dialysis. CR TECHNIQUE: Imaging protocol: Real-time duplex ultrasound of the bilateral extremities with 2-D chang scale, color Doppler flow and spectral waveform analysis including responses to compression and other maneuvers (when performed) with image documentation. Complete exam focused on the lower extremity veins. COMPARISON: US renal BI* [id number] 05/14/2023 6:13 AM FINDINGS: Right deep veins: Unremarkable. The common femoral, femoral, proximal profunda femoral, popliteal, posterior tibial and peroneal veins are patent without thrombus. Normal Doppler waveforms. Normal compressibility and/or augmentation response. Left deep veins: Unremarkable. The common femoral, femoral, proximal profunda femoral, popliteal, posterior tibial and peroneal veins are patent without thrombus. Normal Doppler waveforms. Normal compressibility and/or augmentation response. Superficial veins: Greater saphenous veins at the saphenofemoral junctions are patent bilaterally without thrombus. Soft tissues: Unremarkable. US/[place] [id number] IMPRESSION: No sonographic evidence of deep venous thrombosis.
[2023-09-14] MEDS: pantoprazole 40 mg SDV IVP ×2 (10:18→19:12)
[2023-09-14 10:24] LABS: Blood Gas Allen Test Pos; Blood Gas Operator Identificat CAK; Blood Gas Sample Type Arterial
[2023-09-14 10:44] LABS: NT Pro B Type Natriuretic Pept 21508 pg/mL (0-125)
--- NOTE | 2023-09-14 10:58 | PC.PHAR ---
Vancomycin Pharmacy to dose Ordered a 2000 mg load of Vancomycin and scheduled 1 gm Vancomycin after each Hemodialysis Thank you, Charlene Saravia [facility]
[2023-09-14 11:11] LABS: Ammonia 33 umol/L (16-60); Troponin(5th) Baseline 297 ng/L (0-15)
--- NOTE | 2023-09-14 11:17 | PC.NURSE ---
Wasted Lorazepam 0.5mL with Nabor Williamson RN and 0.8mL of Haldol. Pyxis did not require a witness to waste either of these medications, so second nurse verified that proper amount was administered and wasted with Nabor Williamson.
[2023-09-14] MEDS: iohexol 350 mg/mL 500 mL Btl (per mL) IV (11:35)
[2023-09-14] MEDS: dexmedeTOMIDine 0.9 % NaCL 400 MCG/100 ML PREMIX 3.33999999999999986 MCG IV (11:45)
--- NOTE | 2023-09-14 12:15 | ECG_ITS ---
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 Measurements Intervals [place] Rate: 71 P: 0 [place]: 0 QRS: 67 QRSD: 109 T: 37 QT: 449 QTc: 488 Interpretive Statements SUPRAVENTRICULAR RHYTHM probably sinus rhythm PROLONGED QT INTERVAL Compared to ECG 08/12/2023 17:26:25 Supraventricular rhythm now present Prolonged QT interval now present Electronically Signed On 09-15-2023 15:06:04 CDT by Alvaro Cobos M.D. [id number]
[2023-09-14 12:20] LABS: ABG PCO2 48.1 mmHg (35-45); ABG PH Result 7.33 (7.35-7.45); Arterial Blood Gas Hematocrit 21.9 % (42-52); Base Excess ABG -0.8 mmol/L (-2.0-2.0); Blood Gas Sample Site Brachial, left; HCO3 ABG 25.2 mmol/L (22-26); Oxygen Device BIPAP; PO2 ABG 60.6 mmHg (80.0-100.0); PO2 FiO2 Ratio Arterial Blood 0
[2023-09-14] MEDS: albumin 12.5 GM/50 ML VIAL IV (12:32)
[2023-09-14] MEDS: norepinephrine 4 MG/250 ML BAG 7.5 MG IV (12:36)
[2023-09-14] MEDS: dextrose 10% 250 ML IV (13:25)
[2023-09-14] MEDS: ipratropium-albuterol 3 mL Neb INHALATION ×2 (13:27→19:47)
[2023-09-14 13:31] LABS: Troponin 5 2HR Delta -14.1 ABS# (0-10)
[2023-09-14 13:32] LABS: Troponin 5 2HR 282.9 ng/L (0-15)
[2023-09-14 13:32] LABS: Erythrocyte Sedimentation Rate 14 mm/hr (0-10)
[2023-09-14] MEDS: haloperidol inj 5 mg/mL INJ 1 mL 1 MG IM ×2 (13:34→19:08)
--- NOTE | 2023-09-14 13:36 | ECG_ITS ---
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 Measurements Intervals [place] Rate: 63 P: 48 [place]: 196 QRS: 60 QRSD: 102 T: 51 QT: 475 QTc: 487 Interpretive Statements SINUS RHYTHM PROLONGED QT INTERVAL Compared to ECG 09/14/2023 12:09:38 Supraventricular rhythm no longer present Electronically Signed On 09-15-2023 14:59:24 CDT by Alvaro Cobos M.D. [id number]
[2023-09-14] MEDS: epoetin alfa 20,000 unit/mL MDV (NON-ESRD) 20000 UNIT IVP (13:40)
[2023-09-14] MEDS: heparin 5,000 unit/mL INJ 1 mL 1000 UNIT IVP (13:42)
[2023-09-14] MEDS: heparin, porcine 1,000 unit/mL INJ 10 mL 10000 UNIT HE (13:43)
--- NOTE | 2023-09-14 13:53 | PC.NURSE ---
Received patient from [facility] staff at 1142. BP: 123/59, HR: 79, RR: 26, SPO2: 74% on 10L NC. Patient's mental status is altered and variable. Fidgety in bed, usually unresponsive to verbal stimuli but will occasionally shout obscenities, frequent brief bouts aggressiveness, thrashing about in bed, and attempting to pull iv lines and monitoring devices off. Nurse started Precedex and requested RT come to bedside for BIPAP. Precedex did help calm patient, but it appears that the bipap had the most calming affect. Predecex stopped shortly after starting due to bradycardia, patient remains calm as long as bipap is on. Nurse called Dialysis nurse in to start dialysis now that the patient is in ICU. Nurse has attempted to call the Crystal Barahona for dialysis and blood consent and cannot get a hold of her. Staff from [facility] also reported attempting to call her with no answer or return call. Dialysis and blood started under emergent consent, patient's HGB is 6.6 and has missed over a week of dialysis appointments, difficulty breathing with escalating oxygen requirements and dropping HGB.
[2023-09-14 14:08] LABS: Glucose Point of Care 79 mg/dL (70-110)
[2023-09-14 14:08] LABS: Glucose Point of Care 123 mg/dL (70-110)
[2023-09-14 15:19] LABS: Glucose Point of Care 107 mg/dL (70-110)
--- NOTE | 2023-09-14 15:59 | P.PN_ITS ---
Subjective 2 Subjective: - Patient was examined multiple times th roughout the morning, and in the ICU -Reviewed his records partial records [facility] patient was transferred to [facility] last month for concerns for endocarditis, with valvular vegetations ? I only have part of the records which I reviewed reviewed, I am not sure if he had any CT surgery interventions, and it is not exactly clear if his dialysis catheter was changed out -I spoke to [facility], filomena timmons is on Rocephin and ampicillin at the facility, for the last week patient has been refusing dialysis, they have had a discussion with Geronimo and his about his goals of care however there was no clear answer -Patient was seen this morning, he is al ert to person, not to place, not to time is globally encephalopathic, becoming easily agitated swinging his arms, not following any commands, intermittently swearing, becoming easily agitated, on 10 L, normotensive, diffuse wheezing and crackles in all lung staples, mild retractions, nasal flaring, does have abdominal distention diffuse abdominal tenderness, bilateral lower extremity edema 4+ pitting edema ? I removed all his wrappings he has superficial ulcers bilateral feet, likely diabetic, most of them look like they are healing well, however on the left foot heel, he has a large heel ulcer that is black, necrotic, ? Reviewed his blood work he does look fluid overloaded BNP over 20,000, ? However with his relative immobility, he does have a risk of PE CT angiogram the chest ordered ? Does have diffuse abdominal tenderness abdominal distention, ordered CT scan abdomen pelvis to rule out obstructive uropathy given his significant evidence of UTI, urine is brown, turbid, with 25-40 RBCs, 55-80 WBCs ? This patient is in acute hypoxic respiratory failure likely secondary to fluid overload, with concerns for pneumonia, possible PE, abdominal distention with UTI with evidence of cellulitis left foot, with acute encephalopathy, given his respiratory status he was moved down to ICU ? I attempted to reach patient's however did not get a response ? Currently patient is ICU on BiPAP, in respiratory failure ? Examined in the afternoon in the ICU currently on 50% BiPAP alert to person, not to place, not to time, intermittently does become agitated, on a Precedex drip, currently receiving dialysis, currently on 2 of Levophed, has received a unit of PRBC, -For left heel diabetic ulcer spoke to Felix Teran, about considering debridement Vitals/I&O/Wt Last Vital Signs Temp 96.2 F L 09/14/23 13:15 Pulse 72 09/14/23 14:00 Resp 16 09/14/23 13:50 BP 102/54 09/14/23 13:50 Pulse Ox 97 09/14/23 13:50 O2 Del Method BiPAP 09/14/23 13:27 O2 Flow Rate 10 09/14/23 08:00 FiO2 50 09/14/23 13:27 09/14/23 09/14/23 09/14/23 06:59 14:59 22:59 Intake Total 240 / 240 408.346 / 408.346 Balance 240 / 240 408.346 / 408.346 Weight last 48 hrs Weight 133.526 kg Weight 132.903 kg Weight 131.542 kg Physical Exam 2 Const: COMMON NORMALS: no acute distress EXAM LIMITATIONS: altered mental status ORIENTATION/CONSCIOUSNESS: Yes awake and Yes confused; not oriented to person, not oriented to place and not oriented to time Eye: COMMON NORMALS: Equal, round and reactive pupils present PUPIL: Yes Equal, round and reactive pupils present Neck/C-Spine: COMMON NORMALS: no lymphadenopathy Resp: OTHER: Intercostal retractions, suprasternal retractions, nasal flaring, tachypnea, diffuse wheezing and crackles in all lung staples, in mild respiratory failure, mild respiratory distress when examined on MedSurg, currently in ICU, his mild respiratory distress has improved, but continues to be agitated, 50% BiPAP Cardio: COMMON NORMALS: regular rate, regular rhythm, S1 normal heart sound present and S2 normal heart sound present RATE: regular rate RHYTHM: r egular rhythm HEART SOUNDS: S1 normal heart sound present and S2 normal heart sound present GI: OTHER: Abdomen soft, distended, diffuse bowel sounds present although scattered, no guarding, no rebound, rigidity does have diffuse abdominal tenderness Extremity: NARRATIVE EXTREMITY EXAM: 4+ pitting edema, bilateral feet, superf icial diabetic ulcers, left heel diabetic ulcer measuring 2 x 2 cm, black, necrotic Neuro: SENSORIUM/ORIENTATION: No oriented to person, No oriented to place and No oriented to time Sepsis: Is patient septic: Yes Focused sepsis exam performed: Yes F ocused sepsis exam: DP PT pulses diminished, cap refill greater than 2 seconds, no mottling, Date exam was performed: 09/14/23 Time exam was performed: 10:00 Data 09/14/23 00:55 09/14/23 00:55 Micro: Microbiology 09/14/23 07:20 Blood Culture - Preliminary Blood SPECIMEN COLLECTED 09/14/23 07:16 Blood Culture - Preliminary Blood SPECIMEN COLLECTED A&P Assessment and plan (1) Acute encephalopathy: (2) Acute hypoxic respiratory failure: (3) Pulmonary edema: (4) CHF exacerbation: (5) Aspiration pneumonia: (6) Urinary tract infection: (7) ESRD (end stage renal disease) on dialysis: (8) Hypoglycemia: (9) Endocarditis: Qualifiers: Chronicity: unspecified Endocarditis type: infective Infective endocarditis organism: bacterial Qualified Code(s): I33.0 - Acute and subacute infective endocarditis (10) Afib: (11) Anemia: (12) Decubitus ulcer of heel, unstageable: (13) Altered mental status: Qualifiers: Altered mental status type: delirium Qualified Code(s): R41.0 - Disorientation, unspecified (14) Edema: (15) NSTEMI (non-ST elevated myocardial infarction): (16) Septic shock: (17) Shock: Plan Acute encephalopathy ? Multifactorial ? Sepsis ? Uremia ? UTI ? Neurochecks ? Aspiration precautions ? CT head to check for septic embolization ? Currently on Precedex for agitation ? Ativan and Haldol as needed for agitation Acute hypoxic respiratory failure ? Multifactorial ? Missed dialysis fluid overload pulm edema CHF exacerbation ? Aspiration pneumonia ? Plan ? Monitor in ICU ? Currently on 50% BiPAP ? Currently receiving dialysis for fluid overload ? Broad-spectrum antibiotics vancomycin, meropenem Monitor respiratory status closely ? Aspiration precautions ? Keep n.p.o. Concerns for aspiration pneumonia ? Right upper lobe shows groundglass opacities ? Antibiotic coverage broadened to vancomycin and meropenem ? CT chest, to check for septic embolization, PE, ?follow blood cultures UTI ? Follow urine culture -History of ESBL, continue meropenem Septic shock/shock -Currently requiring 2 of Levophed -Multi factorial from sepsis, anemia -Currently on 2 Levophed titrate down maintain MAP greater than 65 Acute anemia -Hemoglobin 6.6 ? On Eliquis -Hemoccult stool ? Ferritin, iron -Recheck hemoglobin the afternoon ? Receiving 1 unit PRBC ? Monitor hemodynamics Monitor hemoglobin NSTEMI ? 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 CT head, CT chest abdomen pelvis to evaluate for septic embolization ? On ampicillin, Rocephin, antibiotic coverage to meropenem and vancomycin as above ? Follow blood cultures ? Await records from [facility], question if CT surgery intervened on, if dialysis catheter was replaced End-stage renal disease on dialysis ? Patient has been refusing dialysis and nursing staff facility as per nursing staff ?Once patient's mentation is better we will have extensive discussion about goals of care, ? I have tried to reach patient's multiple times cannot get through to her Multiple diabetic ulcers bilateral feet, left heel diabetic ulcer -Left heel diabetic ulcer requiring debridement ? On antibiotics as above, ?consult podiatry - Patient was examined multiple times throughout the morning, and in the ICU -Reviewed his records partial records from [facility] patient was transferred to [facility] last month for concerns for endocarditis, with valvular vegetations ? I only have part of the records which I reviewed reviewed, I am not sure if he had any CT surgery interventions, and it is not exactly clear if his dialysis catheter was changed out -I spoke to [facility], patient is on Rocephin and ampicillin at the facility, for the last week patient has been refusing dialysis, they have had a discussion with Geronimo and his about his goals of care however there was no clear answer -Patient was seen this morning, he is alert to person, not to place, not to time is globally encephalopathic, becoming easily agitated swinging his arms, not following any commands, intermittently swearing, becoming easily agitated, on 10 L, normotensive, diffuse wheezing and crackles in all lung staples, mild retractions, nasal flaring, does have abdominal distention diffuse abdominal tenderness, bilateral lower extremity edema 4+ pitting edema ? I removed all his wrappings he has superficial ulcers bilateral feet, likely diabetic, most of them look like they are healing well, however on the left foot heel, he has a large heel ulcer that is black, necrotic, ? Reviewed his blood work he does look fluid overloaded BNP over 20,000, ? However with his relative immobility, he does have a risk of PE CT angiogram the chest ordered ? Does have diffuse abdominal tenderness abdominal distention, ordered CT scan abdomen pelvis to rule out obstructive uropathy given his significant evidence of UTI, urine is brown, turbid, with 25-40 RBCs, 55-80 WBCs ? This patient is in acute hypoxic respiratory failure likely secondary to fluid overload, with concerns for pneumonia, possible PE, abdominal distention with UTI with evidence of cellulitis left foot, with acute encephalopathy, given his respiratory status he was moved down to ICU ? I attempted to reach patient's however did not get a response ? Currently patient is ICU on BiPAP, in respiratory failure ? Examined in the afternoon in the ICU currently on 50% BiPAP alert to person, not to place, not to time, intermittently does become agitated, on a Precedex drip, currently receiving dialysis, currently on 2 of Levophed, has received a unit of PRBC, -For left heel diabetic ulcer spoke to Dr. Teran, about considering debridement -Patient is developing hypoglycemia, D10 pushes intermittently monitor blood sugars closely Attestations 2 Medical Necessity Statement*: Patient requires hospitalization, inpatient, greater than 2 midnights, for acute hypoxic respiratory failure, sepsis septic shock anemia, end-stage renal disease has not received dialysis in 3 days, uremia, pneumonia, UTI, history of bacterial endocarditis, fluid overload pulmonary edema, NSTEMI, left heel diabetic ulcer Coding Level of Care Code Critical Care >/= 30 minutes Critical care time (in minutes): 60 The high probability of a clinically significant, sudden or life threatening deterioration, as referenced in this documentation, required my full and direct attention, intervention and personal management. The critical care time shown is in addition to time spent performing any reported separately billable procedures and includes the following: [x] Data and vital sign review and interpretation [x ] Patient assessment, examination and intervention [x] Medication orders and management [x] Patient/Family updates as able [x] Care Coordination and Documentation. Diagnoses Acute encephalopathy G93.40 Acute hypoxic respiratory failure J96.01 Pulmonary edema J81.1 CHF exacerbation I50.9 Aspiration pneumonia J69.0 Urinary tract infection N39.0 ESRD (end stage renal disease) on dialysis N18.6; Z99.2 Hypoglycemia E16.2 Endocarditis I33.0 Chronicity: unspecified Endocarditis type: infective Infective endocarditis organism: bacterial Afib I48.91 Anemia D64.9 Decubitus ulcer of heel, unstageable L89.600 Altered mental status R41.0 Altered mental status type: delirium Edema R60.9 NSTEMI (non-ST elevated myocardial infarction) I21.4 Septic shock A41.9; R65.21 Shock R57.9
--- NOTE | 2023-09-14 16:15 | ECG_ITS ---
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 Measurements Intervals [place] Rate: 80 P: 73 NE: 216 QRS: 66 QRSD: 106 T: 42 QT: 410 QTc: 474 Interpretive Statements SINUS RHYTHM WITH FIRST DEGREE AV BLOCK Compared to ECG 09/14/2023 13:36:20 First degree AV block now present Prolonged QT interval no longer present Electronically Signed On 09-15-2023 15:06:10 CDT by Alvaro Cobos M.D. [id number]
[2023-09-14 16:31] LABS: Glucose Point of Care 82 mg/dL (70-110)
[2023-09-14] MEDS: meropenem 1,000 MG in sodium chloride 0.9% (plus) 50 ML 100 MG IV (16:35)
[2023-09-14] MEDS: vancomycin 2,000 MG/400 ML PIGGYBACK 200 MG IV (16:36)
[2023-09-14 16:43] LABS: Basophils % 0.8 %; Eosinophils # 0.3 10^3/uL (0.0-0.8); Lymphocytes # 0.4 10^3/uL (0.8-4.8); Mean Corpuscular Hemoglobin 29.7 pg (27-33); Mean Corpuscular Volume 98.9 fl (82-101); Mean Platelet Volume 9.1 fL (7.4-10.4); Monocytes # 0.2 10^3/uL (0.2-0.9); Monocytes % 4.6 %; Neutrophils # 4.04 10^3/uL (1.8-7.7); Neutrophils % 81.2 %; Nucleated Red Blood Cells % 0 %; Platelet Count 233 10^3/cmm (157-399); Red Blood Count 2.63 10^6/uL (3.85-5.65); Red Cell Distribution Width 17.1 % (12.1-15.1); White Blood Count 4.98 10^3/uL (3.29-11.43)
[2023-09-14 16:57] LABS: Ferritin 657 ng/mL (30-400); Iron 45 ug/dL (59-158)
[2023-09-14 17:33] LABS: Troponin 5 6HR 295.7 ng/L (0-15); Troponin 5 6HR Delta -1.3 ng/L (0-12)
[2023-09-14 17:52] LABS: Glucose Point of Care 109 mg/dL (70-110)
--- NOTE | 2023-09-14 17:57 | PC.NURSE ---
Delay in administering meropenem and vancomycin due to dialysis. WOuld be dialysed out. Infused antibiotics after dialysis, retimed future meropenem.
[2023-09-14 18:35] LABS: Glucose Point of Care 123 mg/dL (70-110)
[2023-09-14] MEDS: heparin 5,000 unit/mL INJ 1 mL 5000 UNIT SUBCUT (19:12)
--- NOTE | 2023-09-14 19:16 | PC.NURSE ---
Shift SUmmary: Patient came to ICU today due to increasing oxygen requirements and agitation. received dialysis and a unit of blood. Less agitated after dialysis. Levophed needed during dialysis only. After dialysis patient briefly woke up and was able to state his name, , location, and why he is here, but then quickly went back to being agitated and confused. 4160 mL of fluid removed during dialysis (3,500ml which was ordered, and another 660mL of fluid boluses given during dialysis (350 ml blood, 250mL d10 bolus, and 60mL albumin)
[2023-09-14 20:00] LABS: Glucose Point of Care 117 mg/dL (70-110)
[2023-09-14 21:15] LABS: Glucose Point of Care 122 mg/dL (70-110)
[2023-09-14] MEDS: sevelamer 800 mg Tablet PO (21:50)
[2023-09-14] MEDS: gabapentin 100 mg Capsule PO (21:50)
[2023-09-14] MEDS: vancomycin 125 mg Capsule PO (21:50)
[2023-09-14] MEDS: dexmedeTOMIDine 0.9 % NaCL 400 MCG/100 ML PREMIX 6.67999999999999972 MCG IV (21:51)
[2023-09-14] MEDS: LORazepam 2 mg/mL INJ 10 mL MDV 1 MG IM (21:54)
[2023-09-15] VITALS (98 sets, daily range): BP systolic 84–146; BP diastolic 42–87; PULSE 54–94; RESP 11–30; TEMP 35.7–36.4; O2SAT 2–100
[2023-09-15] MEDS: haloperidol inj 5 mg/mL INJ 1 mL 1 MG IM (00:18)
[2023-09-15 01:12] LABS: Glucose Point of Care 112 mg/dL (70-110)
[2023-09-15] MEDS: ipratropium-albuterol 3 mL Neb INHALATION ×4 (02:21→20:02)
[2023-09-15] MEDS: LORazepam 2 mg/mL INJ 10 mL MDV 1 MG IM ×2 (04:58→13:39)
[2023-09-15 05:16] LABS: Glucose Point of Care 132 mg/dL (70-110)
[2023-09-15 05:16] LABS: ABG PCO2 45.5 mmHg (35-45); Base Excess ABG 1.1 mmol/L (-2.0-2.0); Blood Gas Operator Identificat JB; Blood Gas Sample Type Arterial; HCO3 ABG 26.6 mmol/L (22-26); Oxygen Device BIPAP; PO2 FiO2 Ratio Arterial Blood 0
[2023-09-15 05:26] LABS: ABG PH Result 7.37 (7.35-7.45); Arterial Blood Gas Hematocrit 26.5 % (42-52); Blood Gas Sample Site Brachial, right; PO2 ABG 57.1 mmHg (80.0-100.0)
[2023-09-15] MEDS: pantoprazole 40 mg SDV IVP ×2 (06:48→19:35)
[2023-09-15] MEDS: heparin 5,000 unit/mL INJ 1 mL 5000 UNIT SUBCUT ×2 (06:49→19:28)
--- NOTE | 2023-09-15 07:00 | XR_ITS ---
WS: [id number] PORTABLE CHEST HISTORY: sob COMPARISON: 09/14/2023 Right-sided dialysis catheter. Tips overlie the RIGHT heart. Diffuse heterogeneity and opacifications throughout both lungs. Slightly more dense consolidation at the lingula obscuring the LEFT heart. No pneumothorax. Small bilateral pleural effusion not excluded. Cardiac size: Mildly enlarged cardiac silhouette. Mediastinum/Aorta: Normal mediastinum. No osseous abnormality seen. IMPRESSION: 1. Diffuse bilateral pulmonary opacifications. Moderate pulmonary edema. Superimposed pneumonia or p neumonitis may appear similar. 2. Small bilateral pleural effusions.
--- NOTE | 2023-09-15 07:15 | P.CONIM_ITS ---
Providers/Reason For Consult 2 Consulting Physician/Specialty*: Dr. Ton Teran, Felix.P.M./podiatry Reason for Consult*: Right decubitus heel ulcer Attending Physician: Michael Estes MD Primary Care Provider: Misty Ibrahim History of Present Illness History of Present Illness Geronimo Barahona is a 62 year old male who was brought to the emergency department on 09/14/2023 for altered mental status. Patient lives in the group home. Patient was recently seen in my clinic on 09/12/2023. At that time patient was noted to have bilateral lower extremity edema, fluid retention, superficial ulcerations to bilateral feet as well as stable decubitus heel ulceration. Upon discussing with [place] patient has been refusing going to dialysis. Patient was admitted to the hospital for further workup and treatment. Dietary was consulted to evaluate right decubitus heel ulceration to determine if any debridement is warranted. Patient denies any fever, chills, nausea, vomiting Review of Systems 2 General: Reports: 10 or more systems reviewed and unremarkable except in HPI and below Const: Denies: fever(s), chills, body aches or change in appetite Eyes: Denies: change in vision or blurry vision Card: Denies: chest pain, palpitations or irregular heart rhythm Resp: Denies: dyspnea GI: Denies: abdominal pain, nausea, vomiting or diarrhea Musc: Reports: joint stiffness Skin/Breast: Reports: non-healing lesions and lesions Neuro: Reports: numbness in extremities Medications/Allergies Home Medications Medication Instructions Recorded Confirmed Last Taken Type albuterol sulfate 2.5 mg/3 mL 2.5 mg inhalation Q4H PRN 10/03/22 09/14/23 Unknown History (0.083 %) solution for nebulization Shortness Of Breath amiodarone 200 mg tablet 200 mg PO QAM 10/03/22 09/14/23 08/12/23 History apixaban 5 mg tablet (Eliquis) 5 mg PO BID 03/11/23 09/14/23 08/12/23 History silver sulfadiazine 1 % topical 1 applic topical DAILY 03/11/23 09/14/23 08/11/23 History cream (SSD) acetaminophen 325 mg tablet 650 mg PO Q6H PRN Pain 08/12/23 09/14/23 08/04/23 History bisacodyl 10 mg rectal suppository 10 mg AR DAILY PRN Constipation 08/12/23 09/14/23 Unknown History hydrocodone 5 mg-acetaminophen 325 1 tab PO Q6H PRN Pain 08/12/23 09/14/23 08/12/23 History mg tablet insulin aspart U-100 100 unit/mL See Rx Instructions .Route .COMPLEX 08/12/23 09/14/23 08/12/23 History (3 mL) subcutaneous pen (Novolog FlexPen U-100 Insulin aspart) metoprolol tartrate 50 mg tablet See Rx Instructions .Route .COMPLEX 08/12/23 09/14/23 08/11/23 History nystatin 100,000 unit/gram topical 1 applic topical DAILY 08/12/23 09/14/23 08/11/23 History powder Saccharomyces boulardii 250 mg 250 mg PO BID 09/14/23 09/14/23 Unknown History capsule albuterol sulfate 90 mcg/actuation 2 puff inhalation Q6H PRN 09/14/23 09/14/23 Unknown History aerosol inhaler (Ventolin HFA) Shortness Of Breath amlodipine 10 mg tablet 10 mg PO DAILY 09/14/23 09/14/23 Unknown History atorvastatin 40 mg tablet 40 mg PO DAILY 09/14/23 09/14/23 Unknown History bumetanide 1 mg tablet See Rx Instructions .Route .COMPLEX 09/14/23 09/14/23 Unknown History calcium acetate 667 mg tablet 667 mg PO TID 09/14/23 09/14/23 Unknown History clopidogrel 75 mg tablet 75 mg PO DAILY 09/14/23 09/14/23 Unknown History gabapentin 100 mg capsule 100 mg PO TID 09/14/23 09/14/23 Unknown History insulin degludec 100 unit/mL (3 15 unit SUBCUT DAILY 09/14/23 09/14/23 Unknown History mL) subcutaneous pen (Tresiba FlexTouch U-100 insulin) sevelamer carbonate 800 mg tablet 800 mg PO TID 09/14/23 09/14/23 Unknown History (Renvela) Allergies Allergy/AdvReac Type Severity Reaction Status Date / Time amoxicillin [From Augmentin] Allergy Mild rash Verified 09/12/23 09:18 clavulanic acid Allergy Mild rash Verified 09/12/23 09:18 [From Augmentin] levofloxacin Allergy Mild rash Verified 09/12/23 09:18 Current Medications Generic Name Dose Route Start Last Admin Trade Name Freq PRN Reason Stop Dose Admin Albuterol/Ipratropium 3 ml 09/14/23 14:00 09/15/23 02:21 Ipratropium-Albuterol 3 Ml Neb INHALATION 3 ml Q6H.RESP JAIDEN Administration Amiodarone HCl 200 mg 09/15/23 06:00 09/15/23 06:46 Amiodarone 200 Mg Tablet PO Not Given QAM JAIDEN Gabapentin 100 mg 09/14/23 15:00 09/14/23 21:50 Gabapentin 100 Mg Capsule PO 100 mg TID JAIDEN Administration Haloperidol Lactate 1 mg 09/14/23 12:02 09/15/23 00:18 Haloperidol Inj 5 Mg/Ml Inj 1 Ml IM 1 mg Q4H PRN Administration AGITATION Heparin Sodium (Porcine) 5,000 unit 09/14/23 07:15 09/15/23 06:49 Heparin 5,000 Unit/Ml Inj 1 Ml SUBCUT 5,000 unit Q12H JAIDEN Administration Albumin Human 12.5 gm in 50 mls @ 60 mls/hr 09/14/23 07:30 09/14/23 14:15 Albumin IV Infused PRN PRN Infusion Hypotension and/or symptomatic Dexmedetomidine/Sodium Chloride 400 mcg in 100 mls @ 0 mls/hr 09/14/23 10:15 09/14/23 21:51 Precedex IV 0.2 mcg/kg/hr .Q0M JAIDEN 6.68 mls/hr Administration Protocol Per Protocol norepinephrine 4 mg in 250 mls @ 0 mls/hr 09/14/23 12:30 09/15/23 07:06 Levophed IV 0 mcg/min .Q0M JAIDEN 0 mls/hr Titration Protocol Per Protocol Insulin Human Lispro 0 unit 09/14/23 12:21 09/14/23 17:38 Insulin Lispro 100 Unit/1 Ml SUBCUT Not Given TIDWM [facility] Protocol Lorazepam 1 mg 09/14/23 12:04 09/15/23 04:58 Lorazepam 2 Mg/Ml Inj 10 Ml Mdv IM 1 mg Q4H PRN Administration AGITATION Metoprolol Tartrate 50 mg 09/14/23 21:00 09/14/23 20:08 Metoprolol Tartrate 50 Mg Tablet PO Not Given [id number] [facility] Pantoprazole Sodium 40 mg 09/14/23 07:45 09/15/23 06:48 Pantoprazole 40 Mg Sdv IVP 40 mg Q12H JAIDEN Administration Sevelamer Carbonate 800 mg 09/14/23 15:00 09/14/23 21:50 Sevelamer 800 Mg Tablet PO 800 mg TID JAIDEN Administration Vancomycin HCl 125 mg 09/14/23 09:00 09/14/23 21:50 Vancomycin 125 Mg Capsule PO 125 mg TID JAIDEN Administration PFSH Acute 2 PFSH: Medical History Afib ESRD (end stage renal disease) on dialysis Hyponatremia DM2 (diabetes mellitus, type 2) Pressure ulcer of left leg, stage 2 Pressure ulcer of right leg, stage 2 Wound of left foot Excoriation of groin Excoriation of abdomen Wound of left lower extremity Pressure ulcer of left buttock, stage 2 Pressure ulcer of right buttock, stage 2 Wound of right lower extremity Lymphedema Stasis dermatitis Pressure sore on buttocks Inability to perform activities of daily living Kidney dysfunction Fluid overload Cellulitis Hemodialysis status Temporary dialysis catheter placement Acute kidney failure Bradycardia Anasarca Bilateral lower leg cellulitis Metabolic acidosis Hyperkalemia DKA (diabetic ketoacidosis) Falls Generalized weakness FRANCISCO (acute kidney injury) CHF (congestive heart failure) Chronic respiratory failure with hypoxia COPD (chronic obstructive pulmonary disease) Social History Smoking and tobacco/nicotine status: former use of tobacco/nicotine Vitals/I&O/Wt Last Vital Signs Temp 97.2 F L 09/15/23 04:00 Pulse 60 09/15/23 06:00 Resp 22 H 09/15/23 05:15 BP 127/59 09/15/23 05:15 Pulse Ox 2 L 09/15/23 05:35 O2 Del Method BiPAP 09/14/23 19:47 O2 Flow Rate 10 09/14/23 08:00 FiO2 50 09/15/23 05:35 09/14/23 09/15/23 09/15/23 22:59 06:59 14:59 Intake Total 2233.184 / 2641.530 0 / 2641.530 53 / 53 Output Total 4639 / 4639 150 / 4789 Balance -2405.816 / -1996.470 -150 / -2147.470 53 / 53 Weight last 48 hrs Weight 287 lb Weight 288 lb 12.889 oz Weight 294 lb 6 oz Weight 293 lb Weight 290 lb Physical Exam 2 Narrative: BELOW IS A FOCUSED LOWER EXTREMITY EXAM GENERAL: A&O x 3 VASCULAR: DP/PT pulses palpable 2/4 with CFT intact, <3seconds to distal digits. +3 edema bilateral lower extremities DERMATOLOGICAL: Skin turgor and temperature is within normal limits. No interdigital maceration noted. Venous stasis changes to bilateral lower extremities with stasis dermatitis and unstageable decubitus heel ulcer to right posterior heel, no erythema no underlying fluctuance no active drainage.. Superficial ulceration to distal aspect of left fifth digit measuring 0.3 x 0.3 x 0.1 cm MUSCULOSKELETAL: Pain with palpation of bilateral lower extremities NEUROLOGICAL: Neurological sensation to the affected foot and ankle is present through L4-S1 dermatomes with no hyper/hypoesthesias, negative Tinel or Valleix's sign Urinary Catheter Management: Fuentes: Cath Placed During This Visit: yes Reason for Continuing Indwelling Catheter: Accurate Measurement of Urinary Output in Critically Ill Patients Urinary Catheter Date of Insertion: 09/15/23 Urinary Catheter Time of Insertion: 05:24 Data 09/14/23 16:32 09/14/23 00:55 Micro: Microbiology 09/15/23 05:00 Occult Blood (FIT) - Final Stool Routine Collection 09/14/23 07:20 Blood Culture - Preliminary Blood SPECIMEN COLLECTED 09/14/23 07:16 Blood Culture - Preliminary Blood SPECIMEN COLLECTED A&P Assessment and plan (1) Pressure ulcer of right heel, unstageable: (2) ESRD (end stage renal disease) on dialysis: (3) DM2 (diabetes mellitus, type 2): Plan -Right decubitus heel ulceration -Labs and vitals reviewed -WBC 4.98 -ESR 14 -HR 60 -RR 22 -Tmax 97.2 -Diet: Okay for diet from podiatry standpoint -Right decubitus heel ulceration with stable eschar, unstageable. No clinical signs of infection. No bogginess or underlying fluctuance. No debridement of eschar warranted at this time. Continue local wound care with Betadine wet-to-dry. Follow-up in outpatient setting at wound care. -Pain Mgmt: Per primary team -Weight bearing: Weightbearing as tolerated for transfers. Keep right heel elevated off bed. Elevate with pillows or use patient's Prevalon boot -Dressings: Daily Betadine wet-to-dry dressing change to right decubitus heel ulceration -Trend labs -Discharge plan: Patient will be okay to discharge from podiatry standpoint when medically stable. Continue local wound care. Patient will follow-up outpatient wound care for right decubitus heel ulcer. Patient to continue to use Prevalon boot while at rest after discharge. -Podiatry will sign off. Please reconsult if needed. Coding Level of Care Code Acute Code for [facility] Fwd Diagnoses Pressure ulcer of right heel, unstageable L89.610 ESRD (end stage renal disease) on dialysis N18.6; Z99.2 DM2 (diabetes mellitus, type 2) E11.9
[2023-09-15 07:40] LABS: Basophils % 0.7 %; Eosinophils # 0.2 10^3/uL (0.0-0.8); Hematocrit 28.7 % (37-53); Lymphocytes # 0.3 10^3/uL (0.8-4.8); Mean Corpuscular HGB Conc 30.3 g/dL (30-55); Mean Corpuscular Hemoglobin 30.1 pg (27-33); Mean Corpuscular Volume 99.3 fl (82-101); Mean Platelet Volume 9.5 fL (7.4-10.4); Monocytes # 0.3 10^3/uL (0.2-0.9); Monocytes % 5.3 %; Neutrophils # 5.06 10^3/uL (1.8-7.7); Neutrophils % 84.5 %; Nucleated Red Blood Cells % 0 %; Platelet Count 225 10^3/cmm (157-399); Red Blood Count 2.89 10^6/uL (3.85-5.65); Red Cell Distribution Width 17.5 % (12.1-15.1); White Blood Count 5.99 10^3/uL (3.29-11.43)
[2023-09-15 07:49] LABS: Glucose Point of Care 117 mg/dL (70-110)
[2023-09-15 08:01] LABS: Lactate (Lactic Acid level) 1.2 mmol/L (0.5-2.2)
[2023-09-15 08:02] LABS: Alanine Aminotransferase < 5 U/L (0-41); Albumin Level 2.8 g/dL (3.5-5.2); Alkaline Phosphatase 156 U/L (40-130); Anion Gap 20.3 (5-19); Aspartate Amino Transferase 6 U/L (0-40); Blood Urea Nitrogen 30 mg/dL (8-23); Calcium 8.7 mg/dL (8.5-10.5); Carbon Dioxide 23 mmol/L (22-29); Chloride 98 mmol/L (98-107); Creatinine Clr Calc Pharmacy 22.8316; Glomerular Filtration Rate 12.5 mL/min (90-130); Glucose 115 mg/dL (65-115); Osmolality Calculated 291 mOsm/kg (285-295); Potassium 4.3 mmol/L (3.5-5.1); Sodium 137 mmol/L (136-145); Total Bilirubin 0.4 mg/dL (0.15-1.2); Total Protein 6.8 g/dL (6.6-8.7)
[2023-09-15 08:06] LABS: C Reactive Protein 147.1 mg/L (0.0-4.9)
[2023-09-15 08:17] LABS: NT Pro B Type Natriuretic Pept 17624 pg/mL (0-125); Procalcitonin 0.39 ng/mL (0-0.5)
[2023-09-15 08:28] LABS: Creatine Phosphokinase 38 U/L (39-308)
--- NOTE | 2023-09-15 09:15 | PC.NURSE ---
Pt struggling to swallow safely. Unable to swallow morning meds. Dr Estes in room and witnessed.
[2023-09-15 09:27] LABS: Glucose Point of Care 117 mg/dL (70-110)
--- NOTE | 2023-09-15 09:30 | USCV_ITS ---
Geronimo Barahona Age: 62 Gender: M : 1960 Exam Date: 09/15/2023 09:09 Ordering Phys: Michael Estes MD Technologist: Exam Location: [facility] [place] Indication: NSTEMI BP: 123 / 66 HR: Rhythm: Sinus Technical Quality: Good MEASUREMENTS (Male / Female) Normal Values 2D ECHO LV Diastolic Diameter PLAX 5.5 cm 4.2 - 5.9 / 3.9 - 5.3 cm IVS Diastolic Thickness 1.3 cm 0.6 - 1.0 / 0.6 - 0.9 cm IVS Systolic Thickness 1.7 cm LVPW Diastolic Thickness 1.2 cm 0.6 - 1.0 / 0.6 - 0.9 cm LVPW Systolic Thickness 1.5 cm LVOT Diameter 2.3 cm LV Ejection Fraction 2D Teich 61.5 % LV Ejection Fraction MOD 2C 75.7 % LV Ejection Fraction 2C AL 77.6 % LA Diameter 5.5 cm RA Systolic Volume 4C AL 87.2 ml RA Systolic Volume 4C MOD 81.2 ml LA Sys Volume AL 101.7 cm cubed LA Sys Volume Index AL 41.1 cm cubed/m squared M-MODE LA Ao Ratio MM 1.4 AV Cusp Separation MM 2.2 cm FINDINGS Left Ventricle Moderate left ventricular hypertrophy. Normal left ventricular size and systolic function, EF 75% Right Ventricle Possibly normal size and ejection fraction Right Atrium The right ear and could not be visualized well. Left Atrium Mildly increased left atrial size. Mitral Valve Moderate mitral annular calcification. Thickened mitral valve. No obvious masses noted Aortic Valve There is an echodense mass on the ventricular aspect of the right coronary cusp with a partial mobility Tricuspid Valve No gross abnormalities noted Pulmonic Valve No gross abnormalities noted Pericardium No pericardial effusion. Aorta Normal aortic annulus size. IVC Inferior vena cava not visualized. CONCLUSIONS Moderate left ventricular hypertrophy. Normal left ventricular size and systolic function, EF 75%. Echo dense mobile mass on the right coronary cusp of the aortic valve, may suggest healed vegetation Thickened mitral valve with a moderate mitral annular calcification. No obvious masses noted in the mitral valve. Mildly increased left atrial size. There is an echodense mass on the ventricular aspect of the right coronary cusp with a partial mobility, may suggest a healed vegetation Mildly increased left atrial size. There is no pericardial effusion. There are no intracardiac masses. Dr Ramesh Ryan MD FACC (Electronically Signed) Final Date: 15 September 2023 12:40 S
--- NOTE | 2023-09-15 09:30 | PC.NURSE ---
Pt resting comfortably in bed after repositioning. Educated pt regarding importance of BiPap placement. Pt indicated understanding. Removed wrist restraints while Saul from imaging present at bedside performing scan. Pt was able to leave BiPap in place without pulling mask off. Will leave restraints off while pt appears to be coherent.
[2023-09-15 12:23] LABS: Glucose Point of Care 130 mg/dL (70-110)
--- NOTE | 2023-09-15 13:09 | PC.HD ---
Upon arrival to patient's room, patient was complaining of leg cramps with 8/10 pain. Primary RN notified. Treatment initiated without difficulty. Heparin 1000 units loading dose administered via venous port of HD catheter at 1253 per corner cutter's orders.
[2023-09-15] MEDS: gabapentin 100 mg Capsule PO (13:38)
[2023-09-15] MEDS: vancomycin 125 mg Capsule PO (13:38)
[2023-09-15] MEDS: sevelamer 800 mg Tablet PO (13:38)
--- NOTE | 2023-09-15 14:47 | P.PN_ITS ---
Subjective 2 Subjective: on bipap Medications: Reviewed: Yes Vitals/I&O/Wt Last Vital Signs Temp 96.3 F L 09/15/23 13:08 Pulse 87 09/15/23 13:26 Resp 20 H 09/15/23 13:17 BP 109/83 09/15/23 13:08 Pulse Ox 100 09/15/23 13:17 O2 Del Method BiPAP 09/15/23 13:17 O2 Flow Rate 10 09/14/23 08:00 FiO2 45 09/15/23 13:17 09/14/23 09/15/23 09/15/23 22:59 06:59 14:59 Intake Total 2233.184 / 2641.530 0 / 2641.530 53 / 53 Output Total 4639 / 4639 150 / 4789 Balance -2405.816 / -1997.470 -150 / -2147.470 53 / 53 Weight last 48 hrs Weight 130.181 kg Weight 131 kg Weight 133.526 kg Weight 132.903 kg Weight 131.542 kg Physical Exam 2 Narrative: On BiPAP, no distress s2s2 RRR per report Lungs clear per report + edema Urinary Catheter Management: Fuentes: Cath Placed During This Visit: yes Reason for Continuing Indwelling Catheter: Accurate Measurement of Urinary Output in Critically Ill Patients Urinary Catheter Date of Insertion: 09/15/23 Urinary Catheter Time of Insertion: 05:24 Data 09/15/23 07:05 09/15/23 07:05 Micro: Microbiology 09/14/23 04:32 Urine Culture - Preliminary Urine,Clean Catch 09/14/23 07:20 Blood Culture - Preliminary Blood NEGATIVE TO DATE 09/14/23 07:16 Blood Culture - Preliminary Blood NEGATIVE TO DATE 09/15/23 05:00 Occult Blood (FIT) - Final Stool Routine Collection A&P Assessment and plan (1) ESRD (end stage renal disease) on dialysis: 1. End-stage renal disease: On MWF schedule for dialysis Ultrafiltration as tolerated, patient currently on BiPAP Patient received contrast with CTs. HD yesterday and plan for HD today 2. Altered mental status: Likely multifactorial, workup pending 3. Acute on chronic respiratory failure, currently on BiPAP, HD as above and ultrafiltration as tolerated 4. Anemia, plan for transfusion 5. Recent infective endocarditis Attestations 2 Medical Necessity Statement*: per lois Coding Level of Care Code Acute Code for Chg Fwd Diagnoses ESRD (end stage renal disease) on dialysis N18.6; Z99.2
--- NOTE | 2023-09-15 14:50 | P.PN_ITS ---
Subjective 2 Subjective: Patient was seen this morning, he is alert to person, not to place, not to time he can follow some commands but remains encephalopathic, currently off Levophed, is on 45% BiPAP, becomes easily agitated, remains on Precedex drip Vitals/I&O/Wt Last Vital Signs Temp 96.3 F L 09/15/23 13:08 Pulse 87 09/15/23 13:26 Resp 20 H 09/15/23 13:17 BP 109/83 09/15/23 13:08 Pulse Ox 100 09/15/23 13:17 O2 Del Method BiPAP 09/15/23 13:17 O2 Flow Rate 10 09/14/23 08:00 FiO2 45 09/15/23 13:17 09/14/23 09/15/23 09/15/23 22:59 06:59 14:59 Intake Total 2233.184 / 2641.530 0 / 2641.530 53 / 53 Output Total 4639 / 4639 150 / 4789 Balance -2405.816 / -1997.470 -150 / -2147.470 53 / 53 Weight last 48 hrs Weight 130.181 kg Weight 131 kg Weight 133.526 kg Weight 132.903 kg Weight 131.542 kg Physical Exam 2 Const: COMMON NORMALS: no acute distress ORIENTATION/CONSCIOUSNESS: Yes awake, Yes oriented to person and Yes confused; not oriented to place and not oriented to time Eye: COMMON NORMALS: Equal, round and reactive pupils present PUPIL: Yes Equal, round and reactive pupils present Neck/C-Spine: COMMON NORMALS: no lymphadenopathy Resp: COMMON NORMALS: normal respiratory effort, No retractions and No use of accessory muscles AUSCULTATION: crackles Cardio: COMMON NORMALS: regular rate, regular rhythm, S1 normal heart sound present and S2 normal heart sound present RATE: regular rate RHYTHM: r egular rhythm HEART SOUNDS: S1 normal heart sound present and S2 normal heart sound present GI: COMMON NORMALS: Normal to inspection, nondistended, normoactive bowel sounds present and non-tender Extremity: COMMON NORMALS: no pedal edema Neuro: SENSORIUM/ORIENTATION: Yes oriented to person, No oriented to place and No oriented to time Urinary Catheter Management: Fuentes: Cath Placed During This Visit: yes Reason for Continuing Indwelling Catheter: Accurate Measurement of Urinary Output in Critically Ill Patients Urinary Catheter Date of Insertion: 09/15/23 Urinary Catheter Time of Insertion: 05:24 Data 09/15/23 07:05 09/15/23 07:05 Micro: Microbiology 09/14/23 04:32 Urine Culture - Preliminary Urine,Clean Catch 09/14/23 07:20 Blood Culture - Preliminary Blood NEGATIVE TO DATE 09/14/23 07:16 Blood Culture - Preliminary Blood NEGATIVE TO DATE 09/15/23 05:00 Occult Blood (FIT) - Final Stool Routine Collection A&P Assessment and plan (1) Acute encephalopathy: (2) Acute hypoxic respiratory failure: (3) Pulmonary edema: (4) CHF exacerbation: (5) Aspiration pneumonia: (6) Urinary tract infection: (7) ESRD (end stage renal disease) on dialysis: (8) Hypoglycemia: (9) Endocarditis: Qualifiers: Chronicity: unspecified Endocarditis type: infective Infective endocarditis organism: bacterial Qualified Code(s): I33.0 - Acute and subacute infective endocarditis (10) Afib: (11) Anemia: (12) Decubitus ulcer of heel, unstageable: (13) Altered mental status: Qualifiers: Altered mental status type: delirium Qualified Code(s): R41.0 - Disorientation, unspecified (14) Edema: (15) NSTEMI (non-ST elevated myocardial infarction): (16) Septic shock: (17) Shock: Plan Acute encephalopathy ? Multifactorial ? Sepsis ? Uremia ? UTI ? Neurochecks ? Aspiration precautions ? CT head to check for septic embolization, within normal limits ? Currently on Precedex for agitation ? Ativan and Haldol as needed for agitation Acute hypoxic respiratory failure, patient remains BiPAP dependent ? Multifactorial ? Missed dialysis fluid overload pulm edema CHF exacerbation ? Aspiration pneumonia ? Plan ? Monitor in ICU ? Currently on 45% BiPAP ? Currently receiving dialysis for fluid overload ? Broad-spectrum antibiotics vancomycin, meropenem Monitor respiratory status closely ? Aspiration precautions ? Keep n.p.o. Concerns for aspiration pneumonia ? Right upper lobe shows groundglass opacities ? Antibiotic coverage broadened to vancomycin and meropenem ?follow blood cultures UTI ? Follow urine culture -History of ESBL, continue meropenem Septic shock/shock -Off pressors -Multi factorial from sepsis, anemia - maintain MAP greater than 65 Acute anemia -Hemoglobin 6.6, repeat hemoglobin 8.7 ? On Eliquis, currently on hold -Hemoccult stool positive for blood ? Ferritin, iron ? Received 1 unit PRBC ? Monitor hemodynamics Monitor hemoglobin NSTEMI ? Type I versus type II -Serial EKGs consult to medical telemetry monitoring -Hold off on blood thinners given anemia as above -Cardiac echo CONCLUSIONS Moderate left ventricular hypertrophy. Normal left ventricular size and systolic function, EF 75%. Echo dense mobile mass on the right coronary cusp of the aortic valve, may suggest healed vegetation Thickened mitral valve with a moderate mitral annular calcification. No obvious masses noted in the mitral valve. Mildly increased left atrial size. There is an echodense mass on the ventricular aspect of the right coronary cusp with a partial mobility, may suggest a healed vegetation Mildly increased left atrial size. There is no pericardial effusion. There are no intracardiac masses. 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 CT head, CT chest abdomen pelvis to evaluate for septic embolization ? On ampicillin, Rocephin, antibiotic coverage to meropenem and vancomycin as above ? Follow blood cultures ? Await records from [facility], question if CT surgery intervened on, if dialysis catheter was replaced End-stage renal disease on dialysis ? Patient has been refusing dialysis and nursing staff facility as per nursing staff ?Once patient's mentation is better we will have extensive discussion about goals of care, ? I have tried to reach patient's multiple times cannot get through to her Multiple diabetic ulcers bilateral feet, left heel diabetic ulcer -Left heel diabetic ulcer requiring debridement ? On antibiotics as above, ?consult podiatry DNR/DNI ? Subcu heparin for DVT prophylaxis Plan for today spoke to renovator machine operator will dialyze today for fluid overload, continue broad-spectrum antibiotic therapy, monitor mentation, aspiration precautions, n.p.o., podiatry consulted for left heel diabetic ulcer continue antibiotics, await cardiac echocardiogram, monitor mentation closely for encephalopathy monitor urine cultures, blood cultures, monitor hemoglobin, spoke to nursing staff Attestations 2 Medical Necessity Statement*: Patient requires hospitalization for acute encephalopathy, acute respiratory failure, UTI, pneumonia, fluid overload, CHF exacerbation, pulmonary edema Diagnoses Acute encephalopathy G93.40 Acute hypoxic respiratory failure J96.01 Pulmonary edema J81.1 CHF exacerbation I50.9 Aspiration pneumonia J69.0 Urinary tract infection N39.0 ESRD (end stage renal disease) on dialysis N18.6; Z99.2 Hypoglycemia E16.2 Endocarditis I33.0 Chronicity: unspecified Endocarditis type: infective Infective endocarditis organism: bacterial Afib I48.91 Anemia D64.9 Decubitus ulcer of heel, unstageable L89.600 Altered mental status R41.0 Altered mental status type: delirium Edema R60.9 NSTEMI (non-ST elevated myocardial infarction) I21.4 Septic shock A41.9; R65.21 Shock R57.9
[2023-09-15 15:49] LABS: Glucose Point of Care 126 mg/dL (70-110)
[2023-09-15] MEDS: dexmedeTOMIDine 0.9 % NaCL 400 MCG/100 ML PREMIX 6.67999999999999972 MCG IV (16:41)
[2023-09-15] MEDS: meropenem 500 MG in sodium chloride 0.9% (plus) 50 ML 100 MG IV (19:29)
[2023-09-15] MEDS: vancomycin 1,000 MG in sodium chloride 0.9% 250 ML 250 MG IV (21:01)
[2023-09-15 22:58] LABS: Glucose Point of Care 125 mg/dL (70-110)
[2023-09-16] VITALS (46 sets, daily range): BP systolic 86–135; BP diastolic 40–67; PULSE 62–97; RESP 13–28; TEMP 36.3–36.6; O2SAT 83–97; BMI 37.5
[2023-09-16] MEDS: morphine 4 mg/mL SDV 1 mL 2 MG IVP ×3 (01:21→20:00)
--- NOTE | 2023-09-16 01:26 | PC.NURSE ---
Morphine Order Patient was complaining of back pain 01/02. Only PO tylenol ordered and patient had NPO status. Dr. Rodriguez was contacted and gave telephone orders for morphine 2mg IVP Q4H PRN.
[2023-09-16] MEDS: dexmedeTOMIDine 0.9 % NaCL 400 MCG/100 ML PREMIX 10.0099999999999998 MCG IV ×2 (02:37→11:31)
[2023-09-16] MEDS: ipratropium-albuterol 3 mL Neb INHALATION ×4 (03:06→20:02)
[2023-09-16 04:34] LABS: Basophils % 0.6 %; Eosinophils # 0.2 10^3/uL (0.0-0.8); Eosinophils % 3.5 %; Hematocrit 25.4 % (37-53); Lymphocytes # 0.4 10^3/uL (0.8-4.8); Lymphocytes % 7.3 %; Mean Corpuscular HGB Conc 30.7 g/dL (30-55); Mean Corpuscular Hemoglobin 29.7 pg (27-33); Mean Corpuscular Volume 96.6 fl (82-101); Mean Platelet Volume 9.3 fL (7.4-10.4); Monocytes # 0.3 10^3/uL (0.2-0.9); Monocytes % 5.1 %; Neutrophils # 4.08 10^3/uL (1.8-7.7); Neutrophils % 83.1 %; Nucleated Red Blood Cells % 0 %; Platelet Count 219 10^3/cmm (157-399); Red Blood Count 2.63 10^6/uL (3.85-5.65); Red Cell Distribution Width 17.3 % (12.1-15.1); White Blood Count 4.91 10^3/uL (3.29-11.43)
--- NOTE | 2023-09-16 04:41 | PC.NURSE ---
Stroke Scale not done Patient's mental status was altered and would not provide an accurate assessment. NIH stroke scale not done due to patient's inability to comprehend directions.
[2023-09-16 05:04] LABS: NT Pro B Type Natriuretic Pept 16562 pg/mL (0-125); Procalcitonin 0.48 ng/mL (0-0.5)
[2023-09-16 05:15] LABS: Anion Gap 15.1 (5-19); Blood Urea Nitrogen 19 mg/dL (8-23); Calcium 8.6 mg/dL (8.5-10.5); Carbon Dioxide 27 mmol/L (22-29); Chloride 101 mmol/L (98-107); Glomerular Filtration Rate 17.4 mL/min (90-130); Glucose 129 mg/dL (65-115); Osmolality Calculated 292 mOsm/kg (285-295); Potassium 4.1 mmol/L (3.5-5.1); Sodium 139 mmol/L (136-145)
--- NOTE | 2023-09-16 05:26 | P.PN_ITS ---
Subjective 2 Subjective: on bipap Medications: Reviewed: Yes Vitals/I&O/Wt Last Vital Signs Temp 97.7 F 09/16/23 04:30 Pulse 73 09/16/23 04:30 Resp 18 09/16/23 04:30 BP 112/40 09/16/23 04:30 Pulse Ox 94 09/16/23 04:30 O2 Del Method BiPAP 09/16/23 04:30 O2 Flow Rate 10 09/14/23 08:00 FiO2 35 09/16/23 04:30 09/15/23 09/15/23 09/16/23 14:59 22:59 06:59 Intake Total 153 / 153 600.111 / 753.111 106.079 / 859.190 Output Total 2450 / 2450 200 / 2650 Balance 153 / 153 -1849.889 / -1696.889 -93.921 / -1790.810 Weight last 48 hrs Weight 126.3 kg Weight 130.181 kg Weight 131 kg Weight 133.526 kg Physical Exam 2 Narrative: On BiPAP, no distress s2s2 RRR per report Lungs clear per report + edema Urinary Catheter Management: Fuentes: Cath Placed During This Visit: yes Reason for Continuing Indwelling Catheter: Accurate Measurement of Urinary Output in Critically Ill Patients Urinary Catheter Date of Insertion: 09/15/23 Urinary Catheter Time of Insertion: 05:24 Data 09/16/23 04:24 09/16/23 04:24 Micro: Microbiology 09/14/23 04:32 Urine Culture - Preliminary Urine,Clean Catch 09/14/23 07:20 Blood Culture - Preliminary Blood NEGATIVE TO DATE 09/14/23 07:16 Blood Culture - Preliminary Blood NEGATIVE TO DATE 09/15/23 05:00 Occult Blood (FIT) - Final Stool Routine Collection A&P Assessment and plan (1) ESRD (end stage renal disease) on dialysis: 1. End-stage renal disease: On MWF schedule for dialysis Ultrafiltration as tolerated, patient currently on BiPAP Patient received contrast with CTs. HD yesterday , hd again today 2. Altered mental status: Likely multifactorial, workup pending 3. Acute on chronic respiratory failure, currently on BiPAP, HD as above and ultrafiltration as tolerated 4. Anemia, plan for transfusion 5. Recent infective endocarditis Attestations 2 Medical Necessity Statement*: per medicine Coding Level of Care Code Acute Code for Chg Fwd Diagnoses ESRD (end stage renal disease) on dialysis N18.6; Z99.2
[2023-09-16] MEDS: meropenem 500 MG in sodium chloride 0.9% (plus) 50 ML 100 MG IV ×2 (05:47→18:14)
[2023-09-16] MEDS: heparin 5,000 unit/mL INJ 1 mL 5000 UNIT SUBCUT ×2 (06:17→19:43)
[2023-09-16 07:51] LABS: Glucose Point of Care 126 mg/dL (70-110)
[2023-09-16] MEDS: pantoprazole 40 mg SDV IVP ×2 (08:52→19:43)
[2023-09-16] MEDS: gabapentin 100 mg Capsule PO ×3 (08:52→20:00)
[2023-09-16] MEDS: vancomycin 125 mg Capsule PO ×3 (08:52→20:00)
[2023-09-16] MEDS: sevelamer 800 mg Tablet PO ×2 (08:52→14:45)
--- NOTE | 2023-09-16 11:37 | PC.OT ---
OT EVALUATION ATTEMPTED TWICE IN A.M. 1ST ATTEMPT: VISITING WITH VISITOR 2ND ATTEMPT: DIALYSIS IN PROGRESS
[2023-09-16 12:02] LABS: Glucose Point of Care 114 mg/dL (70-110)
--- NOTE | 2023-09-16 13:57 | PM.PN ---
Subjective Subjective: Patient was seen this morning, he remains on BiPAP, taken off for a few minutes, on nasal cannula, O2 sats do drop into the mid 80s, complains of shortness of breath, I had extensive discussion with him about being compliant with dialysis, he tells me that he will always go to dialysis, discussed that he has developed severe fluid overload from noncompliance with dialysis, pneumonia, we discussed morbidity and mortality associate with not following medical instructions, he voiced understanding, all questions answered advised that he will be compliant with the dialysis for now on, we also discussed hospice, he has declined hospice, he wants to continue all medical interventions, continue dialysis, continue antibiotics, after our discussion, he went back onto BiPAP, receiving dialysis this morning, for fluid overload, remains more BiPAP dependent, on 35%, speech therapy eval high aspiration risk,, Vitals/I&O/Wt Last Vital Signs Temp 97.3 F L 09/16/23 08:30 Pulse 78 09/16/23 13:13 Resp 22 H 09/16/23 13:11 BP 101/44 09/16/23 12:00 Pulse Ox 91 09/16/23 13:13 O2 Del Method BiPAP 09/16/23 13:11 O2 Flow Rate 10 09/14/23 08:00 FiO2 35 09/16/23 13:13 09/15/23 09/16/23 09/16/23 22:59 06:59 14:59 Intake Total 600.111 / 753.111 156.079 / 909.190 89.089 / 89.089 Output Total 2450 / 2450 200 / 2650 Balance -1849.889 / -1696.889 -43.921 / -1740.810 89.089 / 89.089 Weight last 48 hrs Weight 125.425 kg Weight 126.3 kg Weight 130.181 kg Weight 131 kg Physical Exam Const: COMMON NORMALS: no acute distress ORIENTATION/CONSCIOUSNESS: Yes awake, Yes oriented to person and Yes oriented to place; not oriented to time HENMT: COMMON NORMALS: normocephalic HEAD & SCALP: normocephalic Resp: COMMON NORMALS: normal respiratory effort, No retractions and No use of accessory muscles AUSCULTATION: crackles and wheezes Cardio: COMMON NORMALS: regular rate, regular rhythm, S1 normal heart sound present and S2 normal heart sound present RATE: regular rate RHYTHM: regular rhythm HEART SOUNDS: S1 normal heart sound present and S2 normal heart sound present GI: COMMON NORMALS: Normal to inspection, nondistended, normoactive bowel sounds present and non-tender Extremity: COMMON NORMALS: no pedal edema Neuro: SENSORIUM/ORIENTATION: Yes oriented to person, Yes oriented to place and No oriented to time Psych: COMMON NORMALS: mental status grossly normal Urinary Catheter Management: Fuentes: Cath Placed During This Visit: yes Reason for Continuing Indwelling Catheter: Accurate Measurement of Urinary Output in Critically Ill Patients Urinary Catheter Date of Insertion: 09/15/23 Urinary Catheter Time of Insertion: 05:24 Data 09/16/23 04:24 09/16/23 04:24 Micro: Microbiology 09/14/23 04:32 Urine Culture - Final Urine,Clean Catch A&P Assessment and plan (1) Acute encephalopathy: (2) Acute hypoxic respiratory failure: (3) Pulmonary edema: (4) CHF exacerbation: (5) Aspiration pneumonia: (6) Urinary tract infection: (7) ESRD (end stage renal disease) on dialysis: (8) Hypoglycemia: (9) Endocarditis: Qualifiers: Chronicity: unspecified Endocarditis type: infective Infective endocarditis organism: bacterial Qualified Code(s): I33.0 - Acute and subacute infective endocarditis (10) Afib: (11) Anemia: (12) Decubitus ulcer of heel, unstageable: (13) Altered mental status: Qualifiers: Altered mental status type: delirium Qualified Code(s): R41.0 - Disorientation, unspecified (14) Edema: (15) NSTEMI (non-ST elevated myocardial infarction): (16) Septic shock: (17) Shock: Plan Acute encephalopathy ? Multifactorial ? Sepsis ? Uremia ? UTI ? Neurochecks ? Aspiration precautions ? CT head to check for septic embolization, within normal limits ? Currently on Precedex for agitation ? Ativan and Haldol as needed for agitation Acute hypoxic respiratory failure, patient remains BiPAP dependent ? Multifactorial ? Missed dialysis fluid overload pulm edema CHF exacerbation ? Aspiration pneumonia ? Plan ? Monitor in ICU ? Currently on 35% BiPAP ? Currently receiving dialysis for fluid overload ? Broad-spectrum antibiotics vancomycin, meropenem Monitor respiratory status closely ? Aspiration precautions ? Keep n.p.o. Concerns for aspiration pneumonia ? Right upper lobe shows groundglass opacities ? Antibiotic coverage broadened to vancomycin and meropenem ?follow blood cultures UTI ? Follow urine culture -History of ESBL, continue meropenem Septic shock/shock -Off pressors -Multi factorial from sepsis, anemia - maintain MAP greater than 65 Acute anemia -Hemoglobin 6.6, repeat hemoglobin 8.7 ? On Eliquis, currently on hold -Hemoccult stool positive for blood ? Ferritin, iron ? Received 1 unit PRBC ? Monitor hemodynamics Monitor hemoglobin NSTEMI ? Type I versus type II -Serial EKGs consult to medical telemetry monitoring -Hold off on blood thinners given anemia as above -Cardiac echo CONCLUSIONS Moderate left ventricular hypertrophy. Normal left ventricular size and systolic function, EF 75%. Echo dense mobile mass on the right coronary cusp of the aortic valve, may suggest healed vegetation Thickened mitral valve with a moderate mitral annular calcification. No obvious masses noted in the mitral valve. Mildly increased left atrial size. There is an echodense mass on the ventricular aspect of the right coronary cusp with a partial mobility, may suggest a healed vegetation Mildly increased left atrial size. There is no pericardial effusion. There are no intracardiac masses. 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 CT head, CT chest abdomen pelvis to evaluate for septic embolization ? On ampicillin, Rocephin, antibiotic coverage to meropenem and vancomycin as above ? Follow blood cultures ? Await records from [facility], question if CT surgery intervened on, if dialysis catheter was replaced End-stage renal disease on dialysis ? Patient has been refusing dialysis and nursing staff facility as per nursing staff ?Once patient's mentation is better we will have extensive discussion about goals of care, ? I have tried to reach patient's multiple times cannot get through to her Multiple diabetic ulcers bilateral feet, left heel diabetic ulcer -Left heel diabetic ulcer requiring debridement ? On antibiotics as above, ?consult podiatry DNR/DNI ? Subcu heparin for DVT prophylaxis Plan for today s continue dialysis continue antibiotics, continue Precedex, speech therapy eval monitor hemoglobin monitor hemodynamics, remains BiPAP dependent due to fluid overload, will require further dialysis for fluid overload Attestations Medical Necessity Statement*: Patient requires hospitalization for acute respiratory failure secondary to fluid overload requiring dialysis, pneumonia, UTI requiring broad-spectrum antibiotic therapy, Diagnoses Acute encephalopathy G93.40 Acute hypoxic respiratory failure J96.01 Pulmonary edema J81.1 CHF exacerbation I50.9 Aspiration pneumonia J69.0 Urinary tract infection N39.0 ESRD (end stage renal disease) on dialysis N18.6; Z99.2 Hypoglycemia E16.2 Endocarditis I33.0 Chronicity: unspecified Endocarditis type: infective Infective endocarditis organism: bacterial Afib I48.91 Anemia D64.9 Decubitus ulcer of heel, unstageable L89.600 Altered mental status R41.0 Altered mental status type: delirium Edema R60.9 NSTEMI (non-ST elevated myocardial infarction) I21.4 Septic shock A41.9; R65.21 Shock R57.9
[2023-09-16] MEDS: heparin, porcine 1,000 unit/mL INJ 10 mL 10000 UNIT INTRACATH (13:59)
[2023-09-16 18:29] LABS: Glucose Point of Care 102 mg/dL (70-110)
[2023-09-16] MEDS: dexmedeTOMIDine 0.9 % NaCL 400 MCG/100 ML PREMIX 16.6900000000000013 MCG IV (19:01)
[2023-09-16 20:30] LABS: Glucose Point of Care 122 mg/dL (70-110)
[2023-09-17] VITALS (20 sets, daily range): BP systolic 101–133; BP diastolic 42–85; PULSE 63–91; RESP 15–28; TEMP 36.5–37.1; O2SAT 90–96; BMI 36.5
[2023-09-17] MEDS: ipratropium-albuterol 3 mL Neb INHALATION ×4 (01:49→21:09)
[2023-09-17] MEDS: dexmedeTOMIDine 0.9 % NaCL 400 MCG/100 ML PREMIX 16.6900000000000013 MCG IV (02:48)
[2023-09-17] MEDS: morphine 4 mg/mL SDV 1 mL 2 MG IVP (03:57)
[2023-09-17 04:49] LABS: Basophils % 0.8 %; Eosinophils # 0.2 10^3/uL (0.0-0.8); Eosinophils % 4.1 %; Hematocrit 23.8 % (37-53); Lymphocytes # 0.4 10^3/uL (0.8-4.8); Lymphocytes % 9.9 %; Mean Corpuscular HGB Conc 30.3 g/dL (30-55); Mean Corpuscular Hemoglobin 29.4 pg (27-33); Mean Corpuscular Volume 97.1 fl (82-101); Mean Platelet Volume 9.4 fL (7.4-10.4); Monocytes # 0.2 10^3/uL (0.2-0.9); Monocytes % 5.3 %; Neutrophils # 3.14 10^3/uL (1.8-7.7); Neutrophils % 79.4 %; Nucleated Red Blood Cells % 0 %; Platelet Count 217 10^3/cmm (157-399); Red Blood Count 2.45 10^6/uL (3.85-5.65); Red Cell Distribution Width 17.1 % (12.1-15.1); White Blood Count 3.95 10^3/uL (3.29-11.43)
[2023-09-17] MEDS: meropenem 500 MG in sodium chloride 0.9% (plus) 50 ML 100 MG IV ×2 (05:11→17:33)
[2023-09-17] MEDS: amiodarone 200 mg Tablet PO (05:12)
[2023-09-17 05:18] LABS: Procalcitonin 0.43 ng/mL (0-0.5)
[2023-09-17 05:19] LABS: Anion Gap 14.8 (5-19); Blood Urea Nitrogen 16 mg/dL (8-23); Calcium 8.4 mg/dL (8.5-10.5); Carbon Dioxide 28 mmol/L (22-29); Chloride 100 mmol/L (98-107); Creatinine Clr Calc Pharmacy 32.3771; Glomerular Filtration Rate 19.2 mL/min (90-130); Glucose 104 mg/dL (65-115); NT Pro B Type Natriuretic Pept 19556 pg/mL (0-125); Osmolality Calculated 289 mOsm/kg (285-295); Potassium 3.8 mmol/L (3.5-5.1); Sodium 139 mmol/L (136-145)
[2023-09-17 05:30] LABS: C Reactive Protein 129.1 mg/L (0.0-4.9)
[2023-09-17] MEDS: pantoprazole 40 mg SDV IVP ×2 (06:28→21:51)
[2023-09-17 07:31] LABS: Glucose Point of Care 107 mg/dL (70-110)
[2023-09-17] MEDS: gabapentin 100 mg Capsule PO ×3 (09:38→20:55)
[2023-09-17] MEDS: vancomycin 125 mg Capsule PO ×3 (09:38→20:55)
[2023-09-17] MEDS: heparin 5,000 unit/mL INJ 1 mL 5000 UNIT SUBCUT ×2 (09:38→21:52)
[2023-09-17] MEDS: sevelamer 800 mg Tablet PO ×3 (09:38→20:55)
[2023-09-17] MEDS: dexmedeTOMIDine 0.9 % NaCL 400 MCG/100 ML PREMIX 13.3499999999999996 MCG IV (09:41)
[2023-09-17 12:33] LABS: Glucose Point of Care 109 mg/dL (70-110)
[2023-09-17 13:18] LABS: Basophils % 0.8 %; Eosinophils # 0.1 10^3/uL (0.0-0.8); Eosinophils % 2.3 %; Hematocrit 27.4 % (37-53); Lymphocytes # 0.3 10^3/uL (0.8-4.8); Lymphocytes % 6.9 %; Mean Corpuscular HGB Conc 29.2 g/dL (30-55); Mean Corpuscular Hemoglobin 29.4 pg (27-33); Mean Corpuscular Volume 100.7 fl (82-101); Mean Platelet Volume 9.3 fL (7.4-10.4); Monocytes # 0.3 10^3/uL (0.2-0.9); Monocytes % 5.2 %; Neutrophils # 4.07 10^3/uL (1.8-7.7); Neutrophils % 84.6 %; Nucleated Red Blood Cells % 0 %; Platelet Count 241 10^3/cmm (157-399); Red Blood Count 2.72 10^6/uL (3.85-5.65); Red Cell Distribution Width 17.1 % (12.1-15.1); White Blood Count 4.81 10^3/uL (3.29-11.43)
--- NOTE | 2023-09-17 13:27 | PM.PN ---
Subjective Subjective: Patient was seen this morning, he tells me that his breathing has improved still is BiPAP dependent, we discussed continue to monitor him, I discussed with him that case management told me for the last month, he only had dialysis twice, he likely has severe fluid overload will need to continue to dialyze him to help with his fluid overload, he voiced understanding, all questions answered, patient comes off BiPAP for about 20 minutes, if becomes short of breath and has to be put back on BiPAP he is down to 35% Vitals/I&O/Wt Last Vital Signs Temp 98.8 F 09/17/23 04:00 Pulse 77 09/17/23 12:04 Resp 16 09/17/23 12:04 BP 127/48 09/17/23 12:04 Pulse Ox 92 09/17/23 12:04 O2 Del Method BiPAP 09/17/23 07:30 O2 Flow Rate 10 09/14/23 08:00 FiO2 35 09/17/23 10:30 09/16/23 09/17/23 09/17/23 22:59 06:59 14:59 Intake Total 644.392 / 800.106 154.173 / 954.279 88.555 / 88.555 Output Total 3100 / 3100 25 / 3125 Balance -2455.608 / -2299.894 129.173 / -2170.721 88.555 / 88.555 Weight last 48 hrs Weight 122.158 kg Weight 124 kg Weight 125.425 kg Weight 126.3 kg Physical Exam Const: COMMON NORMALS: no acute distress and patient oriented x3 Resp: COMMON NORMALS: normal respiratory effort, No retractions and No use of accessory muscles Cardio: COMMON NORMALS: regular rate, regular rhythm, S1 normal heart sound present and S2 normal heart sound present RATE: regular rate RHYTHM: regular rhythm HEART SOUNDS: S1 normal heart sound present and S2 normal heart sound present GI: COMMON NORMALS: Normal to inspection, nondistended, normoactive bowel sounds present and non-tender Extremity: NARRATIVE EXTREMITY EXAM: Patient has 2+ pitting edema Neuro: COMMON NORMALS: patient oriented x3 Psych: COMMON NORMALS: mental status grossly normal Urinary Catheter Management: Fuentes: Cath Placed During This Visit: yes Reason for Continuing Indwelling Catheter: Accurate Measurement of Urinary Output in Critically Ill Patients Urinary Catheter Date of Insertion: 09/15/23 Urinary Catheter Time of Insertion: 05:24 Data 09/17/23 12:45 09/17/23 04:15 Micro: Microbiology 09/14/23 04:32 Urine Culture - Final Urine,Clean Catch A&P Assessment and plan (1) Acute encephalopathy: (2) Acute hypoxic respiratory failure: (3) Pulmonary edema: (4) CHF exacerbation: (5) Aspiration pneumonia: (6) Urinary tract infection: (7) ESRD (end stage renal disease) on dialysis: (8) Hypoglycemia: (9) Endocarditis: Qualifiers: Chronicity: unspecified Endocarditis type: infective Infective endocarditis organism: bacterial Qualified Code(s): I33.0 - Acute and subacute infective endocarditis (10) Afib: (11) Anemia: (12) Decubitus ulcer of heel, unstageable: (13) Altered mental status: Qualifiers: Altered mental status type: delirium Qualified Code(s): R41.0 - Disorientation, unspecified (14) Edema: (15) NSTEMI (non-ST elevated myocardial infarction): (16) Septic shock: (17) Shock: Plan Acute encephalopathy ? Multifactorial ? Sepsis ? Uremia ? UTI ? Neurochecks ? Aspiration precautions ? CT head to check for septic embolization, within normal limits ? Currently on Precedex for agitation ? Ativan and Haldol as needed for agitation Acute hypoxic respiratory failure, patient remains BiPAP dependent ? Multifactorial ? Missed dialysis fluid overload pulm edema CHF exacerbation, only had 2 sessions of dialysis in the last month ? Aspiration pneumonia ? Plan ? Monitor in ICU ? Currently on 35% BiPAP, still dependent on BiPAP can only tolerate coming off the BiPAP for 20 minutes or so ? Currently receiving dialysis for fluid overload ? Broad-spectrum antibiotics vancomycin, meropenem Monitor respiratory status closely ? Aspiration precautions ? Diet advance as tolerated Concerns for aspiration pneumonia ? Right upper lobe shows groundglass opacities ? Antibiotic coverage broadened to vancomycin and meropenem ?follow blood cultures UTI ? Follow urine culture -History of ESBL, continue meropenem Septic shock/shock -Off pressors -Multi factorial from sepsis, anemia - maintain MAP greater than 65 Acute anemia -Hemoglobin 6.6, repeat hemoglobin 8.0 ? On Eliquis, currently on hold -Hemoccult stool positive for blood ? Ferritin, iron ? Received 1 unit PRBC ? Monitor hemodynamics Monitor hemoglobin NSTEMI ? Type I versus type II -Serial EKGs consult to medical telemetry monitoring -Hold off on blood thinners given anemia as above -Cardiac echo CONCLUSIONS Moderate left ventricular hypertrophy. Normal left ventricular size and systolic function, EF 75%. Echo dense mobile mass on the right coronary cusp of the aortic valve, may suggest healed vegetation Thickened mitral valve with a moderate mitral annular calcification. No obvious masses noted in the mitral valve. Mildly increased left atrial size. There is an echodense mass on the ventricular aspect of the right coronary cusp with a partial mobility, may suggest a healed vegetation Mildly increased left atrial size. There is no pericardial effusion. There are no intracardiac masses. 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 CT head, CT chest abdomen pelvis to evaluate for septic embolization, no evidence of septic embolization radiographically ? On ampicillin, Rocephin, antibiotic coverage to meropenem and vancomycin as above ? Follow blood cultures, so far negative ? Await records from [facility], question if CT surgery intervened on, if dialysis catheter was replaced End-stage renal disease on dialysis ? Patient has been refusing dialysis and nursing staff facility as per nursing staff ?After extensive discussion with patient, he agrees to be compliant with dialysis, had extensive discussion with him about morbidity and mortality missing dialysis, he voiced understanding, all questions answered, tells me that he is glenroy be compliant with dialysis Multiple diabetic ulcers bilateral feet, left heel diabetic ulcer -Left heel diabetic ulcer ? On antibiotics as above, ?consult podiatry DNR/DNI ? Subcu heparin for DVT prophylaxis Plan for today s continue dialysis, remains BiPAP dependent, monitor respiratory status Attestations Medical Necessity Statement*: Patient requires hospitalization for acute hypoxic respiratory failure BiPAP dependent secondary to fluid overload, pneumonia Diagnoses Acute encephalopathy G93.40 Acute hypoxic respiratory failure J96.01 Pulmonary edema J81.1 CHF exacerbation I50.9 Aspiration pneumonia J69.0 Urinary tract infection N39.0 ESRD (end stage renal disease) on dialysis N18.6; Z99.2 Hypoglycemia E16.2 Endocarditis I33.0 Chronicity: unspecified Endocarditis type: infective Infective endocarditis organism: bacterial Afib I48.91 Anemia D64.9 Decubitus ulcer of heel, unstageable L89.600 Altered mental status R41.0 Altered mental status type: delirium Edema R60.9 NSTEMI (non-ST elevated myocardial infarction) I21.4 Septic shock A41.9; R65.21 Shock R57.9
--- NOTE | 2023-09-17 16:09 | P.PN_ITS ---
Subjective 2 Subjective: on BIPAP Medications: Reviewed: Yes Vitals/I&O/Wt Last Vital Signs Temp 98.8 F 09/17/23 04:00 Pulse 81 09/17/23 13:48 Resp 17 09/17/23 13:47 BP 127/48 09/17/23 12:04 Pulse Ox 93 09/17/23 13:48 O2 Del Method BiPAP 09/17/23 13:47 O2 Flow Rate 10 09/14/23 08:00 FiO2 35 09/17/23 13:48 09/17/23 09/17/23 09/17/23 06:59 14:59 22:59 Intake Total 154.173 / 954.279 88.555 / 88.555 Output Total 3124 Balance 129.173 / -2170.721 88.555 / 88.555 Weight last 48 hrs Weight 122.158 kg Weight 124 kg Weight 125.425 kg Weight 126.3 kg Physical Exam 2 Narrative: On BiPAP, no distress s2s2 RRR per report Lungs clear per report + edema Urinary Catheter Management: Fuentes: Cath Placed During This Visit: yes Reason for Continuing Indwelling Catheter: Accurate Measurement of Urinary Output in Critically Ill Patients Urinary Catheter Date of Insertion: 09/15/23 Urinary Catheter Time of Insertion: 05:24 Data 09/18/23 03:40 09/18/23 03:40 A&P Assessment and plan (1) ESRD (end stage renal disease) on dialysis: 1. End-stage renal disease: On MWF schedule for dialysis Ultrafiltration as tolerated, patient currently on BiPAP Patient received contrast with CTs. HD yesterday , hd again today 2. Altered mental status: Likely multifactorial, workup pending 3. Acute on chronic respiratory failure, currently on BiPAP, HD as above and ultrafiltration as tolerated 4. Anemia, plan for transfusion 5. Recent infective endocarditis Attestations 2 Medical Necessity Statement*: per lois Coding Level of Care Code Acute Code for Chg Fwd Diagnoses ESRD (end stage renal disease) on dialysis N18.6; Z99.2
[2023-09-17 17:19] LABS: Glucose Point of Care 100 mg/dL (70-110)
[2023-09-17] MEDS: heparin, porcine 1,000 unit/mL INJ 10 mL 10000 UNIT INTRACATH (19:43)
[2023-09-17] MEDS: heparin, porcine 1,000 unit/mL INJ 10 mL 1000 UNIT IV (19:44)
[2023-09-17] MEDS: metoprolol tartrate 50 mg Tablet PO (21:50)
[2023-09-17] MEDS: vancomycin 1,000 MG in sodium chloride 0.9% 250 ML 250 MG IV (21:51)
[2023-09-18] VITALS (18 sets, daily range): BP systolic 117–136; BP diastolic 47–68; PULSE 65–86; RESP 14–28; TEMP 36.9–37; O2SAT 90–98
[2023-09-18 00:57] LABS: Glucose Point of Care 90 mg/dL (70-110)
[2023-09-18] MEDS: ipratropium-albuterol 3 mL Neb INHALATION ×4 (02:54→19:55)
[2023-09-18 04:11] LABS: Basophils % 0.8 %; Eosinophils # 0.2 10^3/uL (0.0-0.8); Eosinophils % 3.9 %; Hematocrit 28.6 % (37-53); Lymphocytes # 0.4 10^3/uL (0.8-4.8); Lymphocytes % 7.1 %; Mean Corpuscular HGB Conc 30.1 g/dL (30-55); Mean Corpuscular Hemoglobin 29.6 pg (27-33); Mean Corpuscular Volume 98.3 fl (82-101); Monocytes # 0.3 10^3/uL (0.2-0.9); Monocytes % 6.1 %; Neutrophils # 4.02 10^3/uL (1.8-7.7); Neutrophils % 81.9 %; Nucleated Red Blood Cells % 0 %; Platelet Count 237 10^3/cmm (157-399); Red Blood Count 2.91 10^6/uL (3.85-5.65); Red Cell Distribution Width 16.9 % (12.1-15.1); White Blood Count 4.91 10^3/uL (3.29-11.43)
[2023-09-18 04:37] LABS: Blood Urea Nitrogen 14 mg/dL (8-23); Calcium 8.7 mg/dL (8.5-10.5); Carbon Dioxide 28 mmol/L (22-29); Chloride 103 mmol/L (98-107); Creatinine Clr Calc Pharmacy 34.5376; Glomerular Filtration Rate 20.7 mL/min (90-130); Glucose 94 mg/dL (65-115); Osmolality Calculated 294 mOsm/kg (285-295); Sodium 142 mmol/L (136-145)
[2023-09-18] MEDS: pantoprazole 40 mg SDV IVP ×2 (06:50→19:46)
[2023-09-18] MEDS: amiodarone 200 mg Tablet PO (06:50)
[2023-09-18] MEDS: meropenem 500 MG in sodium chloride 0.9% (plus) 50 ML 100 MG IV ×2 (06:51→17:27)
[2023-09-18] MEDS: heparin 5,000 unit/mL INJ 1 mL 5000 UNIT SUBCUT ×2 (06:54→19:46)
[2023-09-18 07:42] LABS: Glucose Point of Care 92 mg/dL (70-110)
[2023-09-18] MEDS: vancomycin 125 mg Capsule PO ×3 (09:01→21:38)
[2023-09-18] MEDS: sevelamer 800 mg Tablet PO ×3 (09:01→21:38)
[2023-09-18] MEDS: gabapentin 100 mg Capsule PO ×3 (09:01→21:38)
--- NOTE | 2023-09-18 14:03 | PM.PN ---
Subjective Subjective: Patient was seen this morning, afebrile overnight, normotensive, continues to have BiPAP dependence, is on 35%, plans on dialysis today, has 2+ pitting edema, spoke to nephrology, plans on dialysis this afternoon Vitals/I&O/Wt Last Vital Signs Temp 98.6 F 09/18/23 07:42 Pulse 86 09/18/23 13:33 Resp 24 H 09/18/23 13:31 BP 133/68 09/18/23 09:32 Pulse Ox 90 09/18/23 13:31 O2 Del Method BiPAP 09/18/23 13:31 O2 Flow Rate 10 09/18/23 02:56 FiO2 35 09/18/23 13:31 09/17/23 09/18/23 09/18/23 22:59 06:59 14:59 Intake Total 752.823 / 862.296 120 / 120 Output Total 3000 / 3000 50 / 3050 Balance -2247.177 / -2137.704 -50 / -2187.704 120 / 120 Weight last 48 hrs Weight 123.5 kg Weight 124.5 kg Weight 122.158 kg Weight 124 kg Physical Exam Const: COMMON NORMALS: no acute distress and patient oriented x3 Resp: COMMON NORMALS: normal respiratory effort, No retractions and No use of accessory muscles AUSCULTATION: crackles and wheezes Cardio: COMMON NORMALS: regular rate, regular rhythm, S1 normal heart sound present and S2 normal heart sound present RATE: regular rate RHYTHM: regular rhythm HEART SOUNDS: S1 normal heart sound present and S2 normal heart sound present GI: COMMON NORMALS: Normal to inspection, nondistended, normoactive bowel sounds present and non-tender Extremity: NARRATIVE EXTREMITY EXAM: 2+ pitting edema Neuro: COMMON NORMALS: patient oriented x3 Psych: COMMON NORMALS: mental status grossly normal Urinary Catheter Management: Fuentes: Cath Placed During This Visit: yes Reason for Continuing Indwelling Catheter: Accurate Measurement of Urinary Output in Critically Ill Patients Urinary Catheter Date of Insertion: 09/15/23 Urinary Catheter Time of Insertion: 05:24 Data 09/18/23 03:40 09/18/23 03:40 A&P Assessment and plan (1) Acute encephalopathy: (2) Acute hypoxic respiratory failure: (3) Pulmonary edema: (4) CHF exacerbation: (5) Aspiration pneumonia: (6) Urinary tract infection: (7) ESRD (end stage renal disease) on dialysis: (8) Hypoglycemia: (9) Endocarditis: Qualifiers: Chronicity: unspecified Endocarditis type: infective Infective endocarditis organism: bacterial Qualified Code(s): I33.0 - Acute and subacute infective endocarditis (10) Afib: (11) Anemia: (12) Decubitus ulcer of heel, unstageable: (13) Altered mental status: Qualifiers: Altered mental status type: delirium Qualified Code(s): R41.0 - Disorientation, unspecified (14) Edema: (15) NSTEMI (non-ST elevated myocardial infarction): (16) Septic shock: (17) Shock: Plan Acute encephalopathy, resolved ? Multifactorial ? Sepsis ? Uremia ? UTI ? Neurochecks ? Aspiration precautions ? CT head to check for septic embolization, within normal limits Acute hypoxic respiratory failure, patient remains BiPAP dependent ? Multifactorial ? Missed dialysis fluid overload pulm edema CHF exacerbation, only had 2 sessions of dialysis in the last month ? Aspiration pneumonia ? Plan ? Monitor in ICU ? Currently on 35% BiPAP, still dependent on BiPAP can only tolerate coming off the BiPAP for 20 minutes or so ? Currently receiving dialysis for fluid overload, -7 L so far ? Broad-spectrum antibiotics vancomycin, meropenem Monitor respiratory status closely ? Aspiration precautions ? Diet advance as tolerated Concerns for aspiration pneumonia ? Right upper lobe shows groundglass opacities ? Antibiotic coverage broadened to vancomycin and meropenem ?follow blood cultures UTI ? Follow urine culture -History of ESBL, continue meropenem Septic shock/shock -Off pressors -Multi factorial from sepsis, anemia - maintain MAP greater than 65 Acute anemia -Hemoglobin 6.6, repeat hemoglobin 8.0 ? On Eliquis, currently on hold -Hemoccult stool positive for blood ? Ferritin, iron ? Received 1 unit PRBC ? Monitor hemodynamics Monitor hemoglobin NSTEMI ? Type I versus type II -Serial EKGs consult to medical telemetry monitoring -Hold off on blood thinners given anemia as above -Cardiac echo CONCLUSIONS Moderate left ventricular hypertrophy. Normal left ventricular size and systolic function, EF 75%. Echo dense mobile mass on the right coronary cusp of the aortic valve, may suggest healed vegetation Thickened mitral valve with a moderate mitral annular calcification. No obvious masses noted in the mitral valve. Mildly increased left atrial size. There is an echodense mass on the ventricular aspect of the right coronary cusp with a partial mobility, may suggest a healed vegetation Mildly increased left atrial size. There is no pericardial effusion. There are no intracardiac masses. 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 CT head, CT chest abdomen pelvis to evaluate for septic embolization, no evidence of septic embolization radiographically ? On ampicillin, Rocephin, antibiotic coverage to meropenem and vancomycin as above ? Follow blood cultures, so far negative ? Await records from [facility], question if CT surgery intervened on, if dialysis catheter was replaced End-stage renal disease on dialysis ? Patient has been refusing dialysis and nursing staff facility as per nursing staff ?After extensive discussion with patient, he agrees to be compliant with dialysis, had extensive discussion with him about morbidity and mortality missing dialysis, he voiced understanding, all questions answered, tells me that he is glenroy be compliant with dialysis Multiple diabetic ulcers bilateral feet, left heel diabetic ulcer -Left heel diabetic ulcer ? On antibiotics as above, ?consult podiatry DNR/DNI ? Subcu heparin for DVT prophylaxis Plan for today continue dialysis, remains BiPAP dependent, monitor respiratory status Attestations Medical Necessity Statement*: Patient requires hospitalization for acute respiratory failure, BiPAP dependent, requiring further dialysis for fluid overload, Diagnoses Acute encephalopathy G93.40 Acute hypoxic respiratory failure J96.01 Pulmonary edema J81.1 CHF exacerbation I50.9 Aspiration pneumonia J69.0 Urinary tract infection N39.0 ESRD (end stage renal disease) on dialysis N18.6; Z99.2 Hypoglycemia E16.2 Endocarditis I33.0 Chronicity: unspecified Endocarditis type: infective Infective endocarditis organism: bacterial Afib I48.91 Anemia D64.9 Decubitus ulcer of heel, unstageable L89.600 Altered mental status R41.0 Altered mental status type: delirium Edema R60.9 NSTEMI (non-ST elevated myocardial infarction) I21.4 Septic shock A41.9; R65.21 Shock R57.9
--- NOTE | 2023-09-18 14:05 | XRR_ITS ---
PROCEDURE INFORMATION: Exam: XR Chest Exam date and time: 09/18/2023 2:32 PM Age: 62 years old Clinical indication: Shortness of breath; Additional info: SOB TECHNIQUE: Imaging protocol: Radiologic exam of the chest. Views: 1 view. COMPARISON: CR XR chest 1V portable [id number] 09/15/2023 7:14 AM FINDINGS: Tubes, catheters and devices: Unchanged tunneled right IJ dialysis catheter terminating in the upper right atrium. Lungs: Increased diffuse bilateral pulmonary edema and/or pneumonitis. Possibly increased pulmonary vascular congestion. Pleural spaces: Slightly increased left pleural effusion and/or thickening. No obvious right pleural effusion or pneumothorax. Heart/Mediastinum: Unchanged mild cardiomegaly. Bones/joints: Unchanged mild scoliosis with multilevel spondylosis. XR/XR chest 1V portable [id number] IMPRESSION: 1. Increased diffuse bilateral pulmonary edema and/or pneumonitis. 2. Possible increased pulmonary vascular congestion. 3. Slightly increased left pleural effusion and/or thickening. 4. Unchanged mild cardiomegaly.
--- NOTE | 2023-09-18 15:21 | P.PN_ITS ---
Subjective 2 Subjective: remains on bipap Medications: Reviewed: Yes Vitals/I&O/Wt Last Vital Signs Temp 98.6 F 09/18/23 07:42 Pulse 80 09/18/23 15:19 Resp 24 H 09/18/23 13:31 BP 133/68 09/18/23 09:32 Pulse Ox 95 09/18/23 15:19 O2 Del Method BiPAP 09/18/23 13:31 O2 Flow Rate 10 09/18/23 02:56 FiO2 35 09/18/23 15:19 09/18/23 09/18/23 09/18/23 06:59 14:59 22:59 Intake Total 120 / 120 Output Total 50 / 3050 Balance -50 / -2187.704 120 / 120 Weight last 48 hrs Weight 123.5 kg Weight 124.5 kg Weight 122.158 kg Weight 124 kg Physical Exam 2 Narrative: On BiPAP, no distress s2s2 RRR per report Lungs clear per report + edema Urinary Catheter Management: Fuentes: Cath Placed During This Visit: yes Reason for Continuing Indwelling Catheter: Accurate Measurement of Urinary Output in Critically Ill Patients Urinary Catheter Date of Insertion: 09/15/23 Urinary Catheter Time of Insertion: 05:24 Data 09/18/23 03:40 09/18/23 03:40 A&P Assessment and plan (1) ESRD (end stage renal disease) on dialysis: 1. End-stage renal disease: On MWF schedule for dialysis Ultrafiltration as tolerated, patient currently on BiPAP Patient received contrast with CTs. gGetting daily HD to keep hin neg balance , may need HD again today 2. Altered mental status: Likely multifactorial, improved 3. Acute on chronic respiratory failure, currently on BiPAP, HD as above and ultrafiltration as tolerated 4. Anemia, plan for transfusion 5. Recent infective endocarditis Attestations 2 Medical Necessity Statement*: per lois Coding Level of Care Code Acute Code for Chg Fwd Diagnoses ESRD (end stage renal disease) on dialysis N18.6; Z99.2
--- NOTE | 2023-09-18 15:49 | P.PN_ITS ---
Subjective 2 Subjective: on bipap Medications: Reviewed: Yes Vitals/I&O/Wt Last Vital Signs Temp 98.6 F 09/18/23 07:42 Pulse 72 09/18/23 15:36 Resp 15 09/18/23 15:36 BP 129/53 09/18/23 15:36 Pulse Ox 94 09/18/23 15:36 O2 Del Method BiPAP 09/18/23 13:31 O2 Flow Rate 10 09/18/23 02:56 FiO2 35 09/18/23 15:19 09/18/23 09/18/23 09/18/23 06:59 14:59 22:59 Intake Total 120 / 120 Output Total 50 / 3050 Balance -50 / -2187.704 120 / 120 Weight last 48 hrs Weight 123.5 kg Weight 124.5 kg Weight 122.158 kg Weight 124 kg Physical Exam 2 Narrative: On BiPAP, no distress s2s2 RRR per report Lungs clear per report + edema Urinary Catheter Management: Fuentes: Cath Placed During This Visit: yes Reason for Continuing Indwelling Catheter: Accurate Measurement of Urinary Output in Critically Ill Patients Urinary Catheter Date of Insertion: 09/15/23 Urinary Catheter Time of Insertion: 05:24 Data 09/18/23 03:40 09/18/23 03:40 A&P Assessment and plan (1) ESRD (end stage renal disease) on dialysis: 1. End-stage renal disease: On MWF schedule for dialysis Ultrafiltration as tolerated, patient currently on BiPAP Patient received contrast with CTs. gGetting daily HD to keep him neg balance , hd today 2. Altered mental status: Likely multifactorial, improved 3. Acute on chronic respiratory failure, currently on BiPAP, HD as above and ultrafiltration as tolerated 4. Anemia, plan for transfusion 5. Recent infective endocarditis Attestations 2 Medical Necessity Statement*: per blancowv Coding Level of Care Code Acute Code for Chg Fwd Diagnoses ESRD (end stage renal disease) on dialysis N18.6; Z99.2
[2023-09-18 17:14] LABS: Glucose Point of Care 73 mg/dL (70-110)
[2023-09-18 18:59] LABS: Glucose Point of Care 88 mg/dL (70-110)
[2023-09-18 21:25] LABS: Glucose Point of Care 89 mg/dL (70-110)
[2023-09-19] VITALS (34 sets, daily range): BP systolic 111–141; BP diastolic 42–58; PULSE 1–94; RESP 11–31; TEMP 35.9–36.9; O2SAT 85–96; BMI 34.5
[2023-09-19] MEDS: ipratropium-albuterol 3 mL Neb INHALATION ×4 (02:37→21:10)
[2023-09-19 05:10] LABS: Basophils % 0.5 %; Eosinophils # 0.4 10^3/uL (0.0-0.8); Eosinophils % 6.8 %; Lymphocytes # 0.4 10^3/uL (0.8-4.8); Lymphocytes % 6.8 %; Mean Corpuscular HGB Conc 29.3 g/dL (30-55); Mean Corpuscular Hemoglobin 29.2 pg (27-33); Mean Corpuscular Volume 99.6 fl (82-101); Monocytes # 0.4 10^3/uL (0.2-0.9); Monocytes % 6.3 %; Neutrophils # 4.58 10^3/uL (1.8-7.7); Neutrophils % 79.4 %; Nucleated Red Blood Cells % 0 %; Platelet Count 241 10^3/cmm (157-399); Red Blood Count 2.71 10^6/uL (3.85-5.65); Red Cell Distribution Width 16.7 % (12.1-15.1); White Blood Count 5.76 10^3/uL (3.29-11.43)
[2023-09-19 05:33] LABS: Vancomycin Random 17.1 ug/mL (20.0-40.0)
[2023-09-19 05:38] LABS: Anion Gap 16.9 (5-19); Blood Urea Nitrogen 19 mg/dL (8-23); Calcium 8.7 mg/dL (8.5-10.5); Carbon Dioxide 26 mmol/L (22-29); Chloride 100 mmol/L (98-107); Creatinine Clr Calc Pharmacy 22.6856; Glomerular Filtration Rate 12.8 mL/min (90-130); Glucose 91 mg/dL (65-115); NT Pro B Type Natriuretic Pept 23959 pg/mL (0-125); Osmolality Calculated 290 mOsm/kg (285-295); Potassium 3.9 mmol/L (3.5-5.1); Sodium 139 mmol/L (136-145)
[2023-09-19] MEDS: meropenem 500 MG in sodium chloride 0.9% (plus) 50 ML 100 MG IV (06:21)
[2023-09-19] MEDS: amiodarone 200 mg Tablet PO (06:22)
[2023-09-19] MEDS: heparin, porcine 1,000 unit/mL INJ 10 mL 1000 UNIT IV (07:30)
--- NOTE | 2023-09-19 07:53 | PC.HD ---
HD catheter dressing changed is notable for a nickel-sized area of redness at catheter insertion site. Area cleansed with Chloraprep and triple antibiotic ointment applied to catheter insertion site. Primary RN and eyelet machine operator notified.
[2023-09-19 08:16] LABS: Glucose Point of Care 98 mg/dL (70-110)
[2023-09-19] MEDS: vancomycin 125 mg Capsule PO ×3 (09:39→21:21)
[2023-09-19] MEDS: heparin 5,000 unit/mL INJ 1 mL 5000 UNIT SUBCUT ×2 (09:39→19:28)
[2023-09-19] MEDS: pantoprazole 40 mg SDV IVP ×2 (09:39→19:28)
[2023-09-19] MEDS: gabapentin 100 mg Capsule PO ×3 (09:39→21:22)
[2023-09-19] MEDS: epoetin alfa 20,000 unit/mL MDV (NON-ESRD) 20000 UNIT SUBCUT (10:16)
[2023-09-19] MEDS: heparin, porcine 1,000 unit/mL INJ 10 mL 10000 UNIT INTRACATH (10:42)
--- NOTE | 2023-09-19 11:41 | PC.SLP ---
Addendum entered by Maddie Villarreal [employer] SUPERVISOR 09/19/23 11:42: On dialysis Original Note: No [employer] SUPERVISOR treatment provided due to respiratory status
[2023-09-19 12:24] LABS: Glucose Point of Care 91 mg/dL (70-110)
--- NOTE | 2023-09-19 14:05 | P.PN_ITS ---
Subjective 2 Subjective: Patient was seen this morning, he is alert to person, to place, to time he follows all commands, we discussed his persistent BiPAP requirement, 35% I discussed his chest x-ray findings, shows evidence of pulmonary edema, I am worried that he has a component of acute respiratory distress syndrome due to his fluid overload, and his persistent oxygen requirements and BiPAP dependence will continue to watch him closely he is getting get dialysis this morning will continue to monitor his respiratory status closely, Vitals/I&O/Wt Last Vital Signs Temp 96.8 F L 09/19/23 10:45 Pulse 86 09/19/23 13:40 Resp 16 09/19/23 13:30 BP 123/48 09/19/23 10:45 Pulse Ox 94 09/19/23 13:40 O2 Del Method BiPAP 09/19/23 13:30 O2 Flow Rate 35 09/19/23 07:38 FiO2 35 09/19/23 13:40 09/18/23 09/19/23 09/19/23 22:59 06:59 14:59 Intake Total 780 / 950 420 / 420 Output Total 50 / 50 3300 / 3300 Balance 780 / 950 -50 / 900 -2880 / -2880 Weight last 48 hrs Weight 116.3 kg Weight 115.666 kg Weight 123.5 kg Weight 124.5 kg Physical Exam 2 Const: COMMON NORMALS: no acute distress and patient oriented x3 Resp: COMMON NORMALS: normal respiratory effort, No retractions and No use of accessory muscles AUSCULTATION: crackles and wheezes Cardio: COMMON NORMALS: regular rate, regular rhythm, S1 normal heart sound present and S2 normal heart sound present RATE: regular rate RHYTHM: r egular rhythm HEART SOUNDS: S1 normal heart sound present and S2 normal heart sound present GI: COMMON NORMALS: Normal to inspection, nondistended, normoactive bowel sounds present and non-tender Extremity: NARRATIVE EXTREMITY EXAM: 1+ edema Neuro: COMMON NORMALS: patient oriented x3 Psych: COMMON NORMALS: mental status grossly normal Urinary Catheter Management: Fuentes: Cath Placed During This Visit: yes Reason for Continuing Indwelling Catheter: Accurate Measurement of Urinary Output in Critically Ill Patients Urinary Catheter Date of Insertion: 09/15/23 Urinary Catheter Time of Insertion: 05:24 Data 09/19/23 04:48 09/19/23 04:48 Micro: Microbiology 09/14/23 07:20 Blood Culture - Final Blood NO GROWTH AFTER 5 DAYS 09/14/23 07:16 Blood Culture - Final Blood NO GROWTH AFTER 5 DAYS A&P Assessment and plan (1) Acute encephalopathy: (2) Acute hypoxic respiratory failure: (3) Pulmonary edema: (4) CHF exacerbation: (5) Aspiration pneumonia: (6) Urinary tract infection: (7) ESRD (end stage renal disease) on dialysis: (8) Hypoglycemia: (9) Endocarditis: Qualifiers: Chronicity: unspecified Endocarditis type: infective Infective endocarditis organism: bacterial Qualified Code(s): I33.0 - Acute and subacute infective endocarditis (10) Afib: (11) Anemia: (12) Decubitus ulcer of heel, unstageable: (13) Altered mental status: Qualifiers: Altered mental status type: delirium Qualified Code(s): R41.0 - Disorientation, unspecified (14) Edema: (15) NSTEMI (non-ST elevated myocardial infarction): (16) Septic shock: (17) Shock: (18) Acute respiratory distress syndrome: Plan Acute encephalopathy, resolved ? Multifactorial ? Sepsis ? Uremia ? UTI ? Neurochecks ? Aspiration precautions ? CT head to check for septic embolization, within normal limits Acute hypoxic respiratory failure, patient remains BiPAP dependent ? Multifactorial ? Missed dialysis fluid overload pulm edema CHF exacerbation, only had 2 sessions of dialysis in the last month ? Aspiration pneumonia, ? Now with persistent BiPAP dependence, hypoxia requiring 35%, likely acute respiratory distress syndrome ? Plan ? Monitor in ICU ? Currently on 35% BiPAP, still dependent on BiPAP, likely developed acute respiratory distress syndrome ? Currently receiving dialysis for fluid overload, -7 L so far, will receive a session of dialysis today ? B de-escalate antibiotics to ampicillin and Rocephin Monitor respiratory status closely ? Aspiration precautions ? Diet advance as tolerated Concerns for aspiration pneumonia, resolving ? Right upper lobe shows groundglass opacities ?Continue ampicillin, Rocephin ?follow blood cultures UTI ? Follow urine culture -History of ESBL, -Urine cultures have been lackluster, de-escalate antibiotic therapy Septic shock/shock -Off pressors -Multi factorial from sepsis, anemia - maintain MAP greater than 65 Acute anemia -Hemoglobin 6.6, repeat hemoglobin 7.9 ? On Eliquis, currently on hold -Hemoccult stool positive for blood ? Ferritin, iron ? Received 1 unit PRBC ? Monitor hemodynamics Monitor hemoglobin NSTEMI ? Type I versus type II -Serial EKGs consult to medical telemetry monitoring -Hold off on blood thinners given anemia as above -Cardiac echo CONCLUSIONS Moderate left ventricular hypertrophy. Normal left ventricular size and systolic function, EF 75%. Echo dense mobile mass on the right coronary cusp of the aortic valve, may suggest healed vegetation Thickened mitral valve with a moderate mitral annular calcification. No obvious masses noted in the mitral valve. Mildly increased left atrial size. There is an echodense mass on the ventricular aspect of the right coronary cusp with a partial mobility, may suggest a healed vegetation Mildly increased left atrial size. There is no pericardial effusion. There are no intracardiac masses. 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 CT head, CT chest abdomen pelvis to evaluate for septic embolization, no evidence of septic embolization radiographically ? On ampicillin, Rocephin, antibiotic coverage to meropenem and vancomycin as above ? Follow blood cultures, so far negative ? Await records from [facility], question if CT surgery intervened on, if dialysis catheter was replaced End-stage renal disease on dialysis ? Patient has been refusing dialysis and nursing staff facility as per nursing staff ?After extensive discussion with patient, he agrees to be compliant with dialysis, had extensive discussion with him about morbidity and mortality missing dialysis, he voiced understanding, all questions answered, tells me that he is glenroy be compliant with dialysis Multiple diabetic ulcers bilateral feet, left heel diabetic ulcer -Left heel diabetic ulcer ? On antibiotics as above, ?consult podiatry DNR/DNI ? Subcu heparin for DVT prophylaxis Plan for today continue dialysis, remains BiPAP dependent, monitor respiratory status Attestations 2 Medical Necessity Statement*: Patient requires hospitalization, for acute respiratory distress syndrome, acute hypoxic respiratory failure, fluid overload Diagnoses Acute encephalopathy G93.40 Acute hypoxic respiratory failure J96.01 Pulmonary edema J81.1 CHF exacerbation I50.9 Aspiration pneumonia J69.0 Urinary tract infection N39.0 ESRD (end stage renal disease) on dialysis N18.6; Z99.2 Hypoglycemia E16.2 Endocarditis I33.0 Chronicity: unspecified Endocarditis type: infective Infective endocarditis organism: bacterial Afib I48.91 Anemia D64.9 Decubitus ulcer of heel, unstageable L89.600 Altered mental status R41.0 Altered mental status type: delirium Edema R60.9 NSTEMI (non-ST elevated myocardial infarction) I21.4 Septic shock A41.9; R65.21 Shock R57.9 Acute respiratory distress syndrome J80
[2023-09-19] MEDS: sevelamer 800 mg Tablet PO ×2 (16:10→21:21)
[2023-09-19 17:12] LABS: Glucose Point of Care 86 mg/dL (70-110)
[2023-09-19] MEDS: ampicillin 2,000 MG in sodium chloride 0.9% (plus) 50 ML 100 MG IV (17:53)
--- NOTE | 2023-09-19 20:31 | PC.NURSE ---
Report given to SUSAN Jay.
[2023-09-19] MEDS: metoprolol tartrate 50 mg Tablet PO (21:21)
[2023-09-19 21:24] LABS: Glucose Point of Care 86 mg/dL (70-110)
[2023-09-20] VITALS (60 sets, daily range): BP systolic 96–142; BP diastolic 33–72; PULSE 63–88; RESP 3–34; TEMP 36.1–36.2; O2SAT 78–99
[2023-09-20] MEDS: ipratropium-albuterol 3 mL Neb INHALATION ×4 (02:17→20:09)
[2023-09-20] MEDS: ALPRAZolam 0.5 mg Tablet 0.25 MG PO (02:53)
[2023-09-20] MEDS: amiodarone 200 mg Tablet PO (05:43)
[2023-09-20] MEDS: cefTRIAXone 2,000 MG in sodium chloride 0.9% (plus) 50 ML 100 MG IV (05:43)
[2023-09-20] MEDS: ampicillin 2,000 MG in sodium chloride 0.9% (plus) 50 ML 100 MG IV ×2 (05:43→17:27)
[2023-09-20] MEDS: heparin 5,000 unit/mL INJ 1 mL 5000 UNIT SUBCUT ×2 (06:16→19:57)
[2023-09-20 06:36] LABS: Basophils % 0.8 %; Eosinophils # 0.3 10^3/uL (0.0-0.8); Eosinophils % 6.3 %; Hematocrit 28.1 % (37-53); Lymphocytes # 0.5 10^3/uL (0.8-4.8); Lymphocytes % 8.9 %; Mean Corpuscular HGB Conc 29.2 g/dL (30-55); Mean Corpuscular Hemoglobin 29.4 pg (27-33); Mean Corpuscular Volume 100.7 fl (82-101); Monocytes # 0.3 10^3/uL (0.2-0.9); Monocytes % 6.1 %; Neutrophils % 77.1 %; Nucleated Red Blood Cells % 0 %; Platelet Count 235 10^3/cmm (157-399); Red Blood Count 2.79 10^6/uL (3.85-5.65); Red Cell Distribution Width 16.4 % (12.1-15.1); White Blood Count 5.06 10^3/uL (3.29-11.43)
--- NOTE | 2023-09-20 06:48 | P.PN_ITS ---
Subjective 2 Subjective: s/p hd yesterday Medications: Reviewed: Yes Vitals/I&O/Wt Last Vital Signs Temp 96.9 F L 09/20/23 03:30 Pulse 71 09/20/23 06:00 Resp 19 H 09/20/23 06:00 BP 117/50 09/20/23 06:00 Pulse Ox 92 09/20/23 06:00 O2 Del Method BiPAP 09/20/23 03:30 O2 Flow Rate 60 09/20/23 06:00 FiO2 60 09/20/23 06:00 09/19/23 09/19/23 09/20/23 14:59 22:59 06:59 Intake Total 540 / 540 230 / 770 210 / 980 Output Total 3350 / 3350 50 / 3400 45 / 3445 Balance -2810 / -2810 180 / -2630 165 / -2465 Weight last 48 hrs Weight 116.5 kg Weight 116.3 kg Weight 115.666 kg Weight 123.5 kg Physical Exam 2 Narrative: On BiPAP, no distress s2s2 RRR per report Lungs clear per report + edema Urinary Catheter Management: Fuentes: Cath Placed During This Visit: yes Reason for Continuing Indwelling Catheter: Accurate Measurement of Urinary Output in Critically Ill Patients Urinary Catheter Date of Insertion: 09/15/23 Urinary Catheter Time of Insertion: 05:24 Data 09/20/23 06:27 09/20/23 06:27 Micro: Microbiology 09/14/23 07:20 Blood Culture - Final Blood NO GROWTH AFTER 5 DAYS 09/14/23 07:16 Blood Culture - Final Blood NO GROWTH AFTER 5 DAYS A&P Assessment and plan (1) ESRD (end stage renal disease) on dialysis: 1. End-stage renal disease: On MWF schedule for dialysis, s/p hd yesterday, hd today Ultrafiltration as tolerated, patient currently on BiPAP Patient received contrast with CTs. 2. Altered mental status: Likely multifactorial, improved 3. Acute on chronic respiratory failure, currently on BiPAP, HD as above and ultrafiltration as tolerated 4. Anemia, plan for transfusion 5. Recent infective endocarditis Attestations 2 Medical Necessity Statement*: per medicine Coding Level of Care Code Acute Code for Chg Fwd Diagnoses ESRD (end stage renal disease) on dialysis N18.6; Z99.2
[2023-09-20 07:06] LABS: Anion Gap 18.3 (5-19); Blood Urea Nitrogen 14 mg/dL (8-23); Calcium 8.8 mg/dL (8.5-10.5); Carbon Dioxide 26 mmol/L (22-29); Chloride 102 mmol/L (98-107); Glomerular Filtration Rate 15.4 mL/min (90-130); Glucose 95 mg/dL (65-115); NT Pro B Type Natriuretic Pept 24610 pg/mL (0-125); Osmolality Calculated 294 mOsm/kg (285-295); Potassium 4.3 mmol/L (3.5-5.1); Sodium 142 mmol/L (136-145)
[2023-09-20 07:14] LABS: Creatinine Clr Calc Pharmacy 25.8778
--- NOTE | 2023-09-20 07:55 | XRR_ITS ---
PROCEDURE INFORMATION: Exam: XR Chest Exam date and time: 09/20/2023 10:15 AM Age: 62 years old Clinical indication: Shortness of breath; Additional info: SOB TECHNIQUE: Imaging protocol: Radiologic exam of the chest. Views: 1 view. COMPARISON: Chest x-ray September 18, 2023 at 2:35 p.m. FINDINGS: Tubes, catheters and devices: Unchanged dialysis catheter tunneled into the right internal jugular vein and terminating in the upper right atrium. Lungs: Increased atelectasis and/or pneumonitis right lower lung. Otherwise unchanged extensive bilateral pulmonary abnormality. Unchanged pulmonary vascular congestion. Pleural spaces: Increased large right pleural effusion. Unchanged moderate left pleural effusion with some loculations. No pneumothorax. Heart/Mediastinum: Unchanged cardiomegaly. Bones/joints: Unchanged mild scoliosis with mild and moderate multilevel spondylosis. XR/XR chest 1V portable [id number] IMPRESSION: 1. Increased atelectasis and/or pneumonitis in the right lower lung. 2. Increased large right pleural effusion. 3. Additional details as above. Unchanged.
--- NOTE | 2023-09-20 08:19 | CTR_ITS ---
PROCEDURE INFORMATION: Exam: CTA Chest With Contrast Exam date and time: 09/20/2023 10:13 AM Age: 62 years old Clinical indication: Shortness of breath; Additional info: Resp failure TECHNIQUE: Imaging protocol: Computed tomographic angiography of the chest with contrast. Exam focused on the arteries. 3D rendering (Not supervised by radiologist): MIP and/or 3D reconstructed images were created by the technologist. Radiation optimization: All CT scans at this facility use at least one of these dose optimization techniques: automated exposure control; mA and/or kV adjustment per patient size (includes targeted exams where dose is matched to clinical indication); or iterative reconstruction. Contrast material: OMNI 350; Contrast volume: 57 ml; Contrast route: INTRAVENOUS (IV); COMPARISON: CT angio chest PE protcl [id number] 09/14/2023 11:25 AM RADIATION DOSE METRICS: Total DLP (mGy-cm): 523.84 FINDINGS: Pulmonary arteries: Unchanged prominent central pulmonary arteries suggesting pulmonary artery hypertension. Less than optimal pulmonary artery opacification. Limitations result in suboptimal opacification and heterogeneity of the pulmonary arteries. There is no obvious larger central pulmonary embolism, but a smaller segmental or subsegmental PE in either lung can not be excluded on the basis of this examination. Aorta: Unremarkable. No aortic aneurysm. No aortic dissection. Trachea: Unchanged tracheomalacia. There is new mild indentation of the wall of the lateral right trachea with associated soft tissue. This could be invasion or lymphadenopathy. Consider bronchoscopy. Lungs: Increased narrowing and occlusion of bronchi bilaterally. Considerable increase in extensive bilateral pulmonary abnormality. This may all be atelectasis and pneumonitis, but some of this could be malignancy. Pleural spaces: Increased large right pleural effusion. Increased small left pleural effusion with continued areas of loculation. No pneumothorax. Heart: Unchanged mild cardiomegaly. Unchanged mitral annular calcification. No evidence of right heart strain. The right ventricular to left ventricular ratio is 0.95. Coronary arteries: Unchanged large amount of coronary artery calcification. Lymph nodes: Slightly increased multifocal mediastinal lymphadenopathy. Increased right pulmonary hilar lymphadenopathy. No other lymphadenopathy. Grossly unremarkable visualized liver, but limited by motion. Spleen: Possible mild splenomegaly, unchanged. Otherwise, grossly unremarkable, but limited by motion. Kidneys and ureters: Grossly unremarkable visualized upper left kidney, but limited by motion. Bones/joints: Unchanged mild scoliosis. Unchanged mild and moderate multilevel spondylosis. Otherwise, unremarkable. Soft tissues: Limited by streak artifact from the left arm at the side. Otherwise, unremarkable visualized body wall. Otherwise, unremarkable soft tissues. CT/CT angio chest PE protcl [id number] IMPRESSION: 1. Limitations result in suboptimal opacification and heterogeneity of the pulmonary arteries. There is no obvious larger central pulmonary embolism, but a smaller segmental or subsegmental PE in either lung can not be excluded on the basis of this examination. 2. Unchanged prominent central pulmonary arteries suggesting pulmonary artery hypertension. 3. Unchanged mild cardiomegaly. No evidence of right heart strain. 4. Considerable increase in extensive bilateral pulmonary abnormality which may all be atelectasis and pneumonitis, but some of this could be malignancy. Increased occlusion and narrowing of bilateral bronchi. 5. Unchanged tracheomalacia. New mild indentation right tracheal wall associated with soft tissue could be invasion of neoplastic lymphadenopathy. Consider bronchoscopy. 6. Increased large right pleural effusion. Increased small left pleural effusion with continued areas of loculation. Empyema is possible. 7. Increased mediastinal and right pulmonary hilar lymphadenopathy could be reactive or neoplastic. 8. Additional details as above.
--- NOTE | 2023-09-20 08:20 | ECG_ITS ---
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 Measurements Intervals [place] Rate: 71 P: -20 AR: 136 QRS: 36 QRSD: 102 T: 44 QT: 439 QTc: 479 Interpretive Statements SINUS RHYTHM PROLONGED QT INTERVAL Compared to ECG 09/14/2023 16:16:54 Prolonged QT interval now present First degree AV block no longer present Electronically Signed On 09-20-2023 19:32:04 CDT by Ramesh Ryan M.D. [id number]
[2023-09-20 08:41] LABS: ABG PCO2 49.1 mmHg (35-45); ABG PH Result 7.38 (7.35-7.45); Arterial Blood Gas Hematocrit 26.8 % (42-52); Base Excess ABG 3.1 mmol/L (-2.0-2.0); Blood Gas Allen Test Pos; Blood Gas Operator Identificat MONRO; Blood Gas Sample Site Radial, left; Blood Gas Sample Type Arterial; HCO3 ABG 28.8 mmol/L (22-26); Oxygen Device BIPAP; PO2 ABG 52.8 mmHg (80.0-100.0); PO2 FiO2 Ratio Arterial Blood 0
[2023-09-20 08:47] LABS: C Reactive Protein 69.7 mg/L (0.0-4.9)
[2023-09-20 08:54] LABS: Procalcitonin 0.52 ng/mL (0-0.5)
[2023-09-20] MEDS: iohexol 350 mg/mL 500 mL Btl (per mL) IV (10:20)
--- NOTE | 2023-09-20 10:20 | ECG_ITS ---
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 Measurements Intervals [place] Rate: 73 P: 229 [place]: 187 QRS: 27 QRSD: 94 T: 54 QT: 427 QTc: 471 Interpretive Statements SINUS RHYTHM Compared to ECG 09/20/2023 08:29:26 Prolonged QT interval no longer present Electronically Signed On 09-20-2023 19:59:51 CDT by Ramesh Ryan M.D. [id number]
[2023-09-20 11:19] LABS: Troponin(5th) Baseline 239 ng/L (0-15)
[2023-09-20 11:20] LABS: Glucose Point of Care 78 mg/dL (70-110)
[2023-09-20] MEDS: pantoprazole 40 mg SDV IVP ×2 (11:25→19:57)
[2023-09-20] MEDS: sevelamer 800 mg Tablet PO ×3 (11:25→19:57)
[2023-09-20] MEDS: gabapentin 100 mg Capsule PO ×3 (11:25→19:58)
[2023-09-20] MEDS: vancomycin 125 mg Capsule PO ×3 (11:25→19:57)
[2023-09-20] MEDS: OLANZapine 5 mg TABLET 2.5 MG PO ×2 (11:26→19:57)
[2023-09-20] MEDS: heparin, porcine 1,000 unit/mL INJ 10 mL 1000 UNIT IV (12:28)
--- NOTE | 2023-09-20 12:46 | P.PN_ITS ---
Subjective 2 Subjective: Patient was examined this morning, multiple times thereafter, early this morning he was seen on BiPAP 60%, he is alert oriented x 3, following all commands, he tells me that whenever he comes off of BiPAP he feels short of breath, currently afebrile, no nausea, no vomiting, remains BiPAP dependent his oxygen requirements have increased, denies any choking, no coughing, plan on dialysis today ? Patient had a CT angiogram of the chest ordered, repeat blood work, ABG ? Reexamined early around in the morning, he has not received dialysis IVF's of yet, plans on dialysis in the next few hours, currently on heated high flow at 70%, he complains of shortness of breath on heated high flow he tells me he breathes better with the BiPAP ? I discussed the CT angiogram findings, with evidence of fluid overload, pneumonia, pneumonitis, ? Patient has severe hypoxic respiratory failure, currently BiPAP dependent, his O2 sats during my discussion does drop into the mid 80s, becomes tachypneic, tachycardic, with nasal flaring intercostal retractions, we discussed placing him back on BiPAP doing dialysis in hour or so ? I would broaden his antibiotic coverage, start him on steroids, I had a detailed discussion with him about his goals of care, he currently is BiPAP dependent a blood cultures from cute hypoxic respiratory failure, his O2 requirements have increased, we discussed worsening of his respiratory status, he is adamant that he is DNR, that he does not want to be intubated, -dialysis cath site is a bit erythematou s, will draw blood from dialysis catheter line, ? I have tried to reach patient's to let him know about his status however she has not picked up the phone Vitals/I&O/Wt Last Vital Signs Temp 96.9 F L 09/20/23 03:30 Pulse 72 09/20/23 12:00 Resp 16 09/20/23 12:00 BP 122/51 09/20/23 12:00 Pulse Ox 95 09/20/23 12:00 O2 Del Method BiPAP 09/20/23 07:59 O2 Flow Rate 50 09/20/23 10:33 FiO2 75 09/20/23 10:41 09/19/23 09/20/23 09/20/23 22:59 06:59 14:59 Intake Total 230 / 770 210 / 980 Output Total 50 / 3400 45 / 3445 Balance 180 / -2630 165 / -2465 Weight last 48 hrs Weight 116.5 kg Weight 116.3 kg Weight 115.666 kg Physical Exam 2 Const: COMMON NORMALS: no acute distress and patient oriented x3 Eye: COMMON NORMALS: Equal, round and reactive pupils present and EOMs intact bilaterally PUPIL: Yes Equal, round and reactive pupils present Resp: OTHER: Patient has nasal flaring, intercostal retractions, suprasternal retractions, on 70% heated high flow, with diffusing wheezing and crackles in all lung staples Cardio: COMMON NORMALS: regular rate, regular rhythm, S1 normal heart sound present and S2 normal heart sound present RATE: regular rate RHYTHM: r egular rhythm HEART SOUNDS: S1 normal heart sound present and S2 normal heart sound present GI: COMMON NORMALS: Normal to inspection, nondistended, normoactive bowel sounds present and non-tender Extremity: NARRATIVE EXTREMITY EXAM: 2+ pitting edema Neuro: COMMON NORMALS: patient oriented x3 Psych: COMMON NORMALS: mental status grossly normal Urinary Catheter Management: Fuentes: Cath Placed During This Visit: yes Reason for Continuing Indwelling Catheter: Accurate Measurement of Urinary Output in Critically Ill Patients Urinary Catheter Date of Insertion: 09/15/23 Urinary Catheter Time of Insertion: 05:24 Data 09/20/23 06:27 09/20/23 06:27 Micro: Microbiology 09/20/23 09:52 Blood Culture - Preliminary Blood SPECIMEN COLLECTED 09/20/23 09:59 Blood Culture - Preliminary Blood SPECIMEN COLLECTED A&P Assessment and plan (1) Acute encephalopathy: (2) Acute hypoxic respiratory failure: (3) Pulmonary edema: (4) CHF exacerbation: (5) Aspiration pneumonia: (6) Urinary tract infection: (7) ESRD (end stage renal disease) on dialysis: (8) Hypoglycemia: (9) Endocarditis: Qualifiers: Chronicity: unspecified Endocarditis type: infective Infective endocarditis organism: bacterial Qualified Code(s): I33.0 - Acute and subacute infective endocarditis (10) Afib: (11) Anemia: (12) Decubitus ulcer of heel, unstageable: (13) Altered mental status: Qualifiers: Altered mental status type: delirium Qualified Code(s): R41.0 - Disorientation, unspecified (14) Edema: (15) NSTEMI (non-ST elevated myocardial infarction): (16) Septic shock: (17) Shock: (18) Acute respiratory distress syndrome: (19) Pulmonary arterial hypertension: (20) Bilateral pleural effusion: Plan Acute encephalopathy, resolved ? Multifactorial ? Sepsis ? Uremia ? UTI ? Neurochecks ? Aspiration precautions ? CT head to check for septic embolization, within normal limits Acute hypoxic respiratory failure, acute respiratory distress syndrome, patient remains BiPAP dependent ? Multifactorial ? Missed dialysis fluid overload pulm edema CHF exacerbation, only had 2 sessions of dialysis in the last month ? Aspiration pneumonia, ? Now with persistent BiPAP dependence, hypoxia requiring 60% -acute respiratory distress syndrome -CT angiogram CT/CT angio chest PE protcl [id number] IMPRESSION: 1. Limitations result in suboptimal opacification and heterogeneity of the pulmonary arteries. There is no obvious larger central pulmonary embolism, but a smaller segmental or subsegmental PE in either lung can not be excluded on the basis of this examination. 2. Unchanged prominent central pulmonary arteries suggesting pulmonary artery hypertension. 3. Unchanged mild cardiomegaly. No evidence of right heart strain. 4. Considerable increase in extensive bilateral pulmonary abnormality which may all be atelectasis and pneumonitis, but some of this could be malignancy. Increased occlusion and narrowing of bilateral bronchi. 5. Unchanged tracheomalacia. New mild indentation right tracheal wall associated with soft tissue could be invasion of neoplastic lymphadenopathy. Consider bronchoscopy. 6. Increased large right pleural effusion. Increased small left pleural effusion with continued areas of loculation. Empyema is possible. 7. Increased mediastinal and right pulmonary hilar lymphadenopathy could be reactive or neoplastic. 8. Additional details as above. ? Plan ? Monitor in ICU ? Currently on 60% BiPAP, still dependent on BiPAP, likely developed acute respiratory distress syndrome ? Currently receiving dialysis for fluid overload, -10 L so far, will receive a session of dialysis today ? de-escalate antibiotics to ampicillin and Rocephin, will add vancomycin ? Patient has bilateral pleural effusions, the left one shows loculation, will consider ultrasound thoracocentesis based on clinical progress ? Solu-Medrol 125 mg, followed by 40 mg IV every 8 hours -Monitor respiratory status closely ? Aspiration precautions ? Diet advance as tolerated Concerns for aspiration pneumonia, resolving ? Right upper lobe shows groundglass opacities ?Continue ampicillin, Rocephin ?follow blood cultures UTI ? Follow urine culture -History of ESBL, -Urine cultures have been lackluster, de-escalate antibiotic therapy Septic shock/shock -Off pressors -Multi factorial from sepsis, anemia - maintain MAP greater than 65 Acute anemia -Hemoglobin 6.6, repeat hemoglobin 8.2 ? On Eliquis, currently on hold -Hemoccult stool positive for blood ? Ferritin, iron ? Received 1 unit PRBC during this hospitalization ? Monitor hemodynamics Monitor hemoglobin NSTEMI ? Type I versus type II -Serial EKGs consult to medical telemetry monitoring -Hold off on blood thinners given anemia as above -Cardiac echo CONCLUSIONS Moderate left ventricular hypertrophy. Normal left ventricular size and systolic function, EF 75%. Echo dense mobile mass on the right coronary cusp of the aortic valve, may suggest healed vegetation Thickened mitral valve with a moderate mitral annular calcification. No obvious masses noted in the mitral valve. Mildly increased left atrial size. There is an echodense mass on the ventricular aspect of the right coronary cusp with a partial mobility, may suggest a healed vegetation Mildly increased left atrial size. There is no pericardial effusion. There are no intracardiac masses. 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 CT head, CT chest abdomen pelvis to evaluate for septic embolization, no evidence of septic embolization radiographically ? On ampicillin, Rocephin ? Follow blood cultures, so far negative ? Await records from [facility], question if CT surgery intervened on, if dialysis catheter was replaced End-stage renal disease on dialysis ? Patient has been refusing dialysis and nursing staff facility as per nursing staff ?After extensive discussion with patient, he agrees to be compliant with dialysis, had extensive discussion with him about morbidity and mortality missing dialysis, he voiced understanding, all questions answered, tells me that he is glenroy be compliant with dialysis Multiple diabetic ulcers bilateral feet, left heel diabetic ulcer -Left heel diabetic ulcer ? On antibiotics as above, ?consult podiatry DNR/DNI ? Subcu heparin for DVT prophylaxis ? Patient was examined this morning, multiple times thereafter, early this morning he was seen on BiPAP 60%, he is alert oriented x 3, following all commands, he tells me that whenever he comes off of BiPAP he feels short of breath, currently afebrile, no nausea, no vomiting, remains BiPAP dependent his oxygen requirements have increased, denies any choking, no coughing, plan on dialysis today ? Patient had a CT angiogram of the chest ordered, repeat blood work, ABG ? Reexamined early around in the morning, he has not received dialysis IVF's of yet, plans on dialysis in the next few hours, currently on heated high flow at 70%, he complains of shortness of breath on heated high flow he tells me he breathes better with the BiPAP ? I discussed the CT angiogram findings, with evidence of fluid overload, pneumonia, pneumonitis, ? Patient has severe hypoxic respiratory failure, currently BiPAP dependent, his O2 sats during my discussion does drop into the mid 80s, becomes tachypneic, tachycardic, with nasal flaring intercostal retractions, we discussed placing him back on BiPAP doing dialysis in hour or so ? I would broaden his antibiotic coverage, start him on steroids, I had a detailed discussion with him about his goals of care, he currently is BiPAP dependent a blood cultures from cute hypoxic respiratory failure, his O2 requirements have increased, we discussed worsening of his respiratory status, he is adamant that he is DNR, that he does not want to be intubated, -dialysis cath site is a bit erythematous, will draw blood from dialysis catheter line, ? I have tried to reach patient's to let him know about his status however she has not picked up the phone Attestations 2 Medical Necessity Statement*: Patient requires hospitalization for acute hypoxic respiratory failure, acute respiratory distress syndrome, BiPAP dependence, fluid overload, NSTEMI, Diagnoses Acute encephalopathy G93.40 Acute hypoxic respiratory failure J96.01 Pulmonary edema J81.1 CHF exacerbation I50.9 Aspiration pneumonia J69.0 Urinary tract infection N39.0 ESRD (end stage renal disease) on dialysis N18.6; Z99.2 Hypoglycemia E16.2 Endocarditis I33.0 Chronicity: unspecified Endocarditis type: infective Infective endocarditis organism: bacterial Afib I48.91 Anemia D64.9 Decubitus ulcer of heel, unstageable L89.600 Altered mental status R41.0 Altered mental status type: delirium Edema R60.9 NSTEMI (non-ST elevated myocardial infarction) I21.4 Septic shock A41.9; R65.21 Shock R57.9 Acute respiratory distress syndrome J80 Pulmonary arterial hypertension I27.21 Bilateral pleural effusion J90
[2023-09-20 13:21] LABS: Troponin 5 2HR Delta -15.8 ABS# (0-10)
[2023-09-20 13:22] LABS: Troponin 5 2HR 223.2 ng/L (0-15)
[2023-09-20] MEDS: methylPREDNISolone sod succ 125 mg/2 mL INJ IVP (15:50)
[2023-09-20] MEDS: vancomycin 1,000 MG in sodium chloride 0.9% 250 ML 250 MG IV (17:27)
[2023-09-20 18:23] LABS: Glucose Point of Care 118 mg/dL (70-110)
[2023-09-21] VITALS (56 sets, daily range): BP systolic 100–153; BP diastolic 41–83; PULSE 65–93; RESP 11–32; TEMP 36.7; O2SAT 84–100
[2023-09-21] MEDS: ipratropium-albuterol 3 mL Neb INHALATION ×4 (02:04→19:52)
[2023-09-21 03:54] LABS: Hematocrit 30.7 % (37-53); Lymphocytes # 0.2 10^3/uL (0.8-4.8); Lymphocytes % 6.4 %; Mean Corpuscular Hemoglobin 29.3 pg (27-33); Mean Corpuscular Volume 97.8 fl (82-101); Mean Platelet Volume 9.1 fL (7.4-10.4); Monocytes % 0.6 %; Neutrophils # 3.04 10^3/uL (1.8-7.7); Neutrophils % 92.4 %; Nucleated Red Blood Cells % 0 %; Platelet Count 203 10^3/cmm (157-399); Red Blood Count 3.14 10^6/uL (3.85-5.65); White Blood Count 3.29 10^3/uL (3.29-11.43)
[2023-09-21 04:17] LABS: C Reactive Protein 63.3 mg/L (0.0-4.9)
[2023-09-21 04:19] LABS: Anion Gap 21.1 (5-19); Blood Urea Nitrogen 15 mg/dL (8-23); Calcium 8.2 mg/dL (8.5-10.5); Carbon Dioxide 25 mmol/L (22-29); Chloride 102 mmol/L (98-107); Creatinine Clr Calc Pharmacy 30.4444; Glomerular Filtration Rate 18.6 mL/min (90-130); Glucose 174 mg/dL (65-115); NT Pro B Type Natriuretic Pept 24933 pg/mL (0-125); Osmolality Calculated 301 mOsm/kg (285-295); Potassium 5.1 mmol/L (3.5-5.1); Sodium 143 mmol/L (136-145)
[2023-09-21] MEDS: cefTRIAXone 2,000 MG in sodium chloride 0.9% (plus) 50 ML 100 MG IV (06:21)
[2023-09-21] MEDS: methylPREDNISolone sod succ 125 mg/2 mL INJ 60 MG IVP ×3 (06:21→22:46)
[2023-09-21] MEDS: ampicillin 2,000 MG in sodium chloride 0.9% (plus) 50 ML 100 MG IV ×2 (06:22→17:56)
[2023-09-21] MEDS: amiodarone 200 mg Tablet PO (06:22)
[2023-09-21] MEDS: heparin 5,000 unit/mL INJ 1 mL 5000 UNIT SUBCUT ×2 (06:41→19:42)
[2023-09-21] MEDS: pantoprazole 40 mg SDV IVP ×2 (06:41→19:42)
--- NOTE | 2023-09-21 07:00 | XRR_ITS ---
PROCEDURE INFORMATION: Exam: XR Chest Exam date and time: 09/21/2023 7:35 AM Age: 62 years old Clinical indication: Shortness of breath; Additional info: SOB TECHNIQUE: Imaging protocol: Radiologic exam of the chest. Views: 1 view. COMPARISON: CR (CHEST, ) 09/20/2023 10:15 AM FINDINGS: Tubes, catheters and devices: Right approach dialysis catheter with its tip in the right atrium. Lungs: Increase in the bilateral lower lung zone consolidations with associated pulmonary congestion. Pleural spaces: Stable bilateral pleural effusions. Heart/Mediastinum: Unremarkable. No cardiomegaly. Bones/joints: Mild degenerative disease of bilateral acromioclavicular joints. Mild curvature of the thoracic spine convex to the right. XR/XR chest 1V portable [id number] IMPRESSION: Increase in the bilateral lower lung zone consolidation/collapse associated bilateral pleural effusions.
--- NOTE | 2023-09-21 07:33 | P.PN_ITS ---
Subjective 2 Subjective: on bipap Medications: Reviewed: Yes Vitals/I&O/Wt Last Vital Signs Temp 97.2 F L 09/20/23 15:41 Pulse 66 09/21/23 06:00 Resp 18 09/21/23 06:00 BP 102/43 09/21/23 06:00 Pulse Ox 96 09/21/23 06:00 O2 Del Method BiPAP 09/21/23 02:06 O2 Flow Rate 50 09/20/23 10:33 FiO2 45 09/21/23 02:06 09/20/23 09/21/23 09/21/23 22:59 06:59 14:59 Intake Total 700 / 820 200 / 1020 Output Total 3300 / 3300 30 / 3330 Balance -2600 / -2480 170 / -2310 Weight last 48 hrs Weight 112.763 kg Weight 116.5 kg Weight 116.5 kg Weight 116.3 kg Physical Exam 2 Narrative: On BiPAP, no distress s2s2 RRR per report Lungs clear per report + edema Urinary Catheter Management: Fuentes: Cath Placed During This Visit: yes Reason for Continuing Indwelling Catheter: Accurate Measurement of Urinary Output in Critically Ill Patients Urinary Catheter Date of Insertion: 09/15/23 Urinary Catheter Time of Insertion: 05:24 Data 09/21/23 03:25 09/21/23 03:25 Micro: Microbiology 09/20/23 09:52 Blood Culture - Preliminary Blood SPECIMEN COLLECTED 09/20/23 09:59 Blood Culture - Preliminary Blood SPECIMEN COLLECTED A&P Assessment and plan (1) ESRD (end stage renal disease) on dialysis: 1. End-stage renal disease: On MWF schedule for dialysis, s/p hd yesterday, next HD tomorrow Ultrafiltration as tolerated, patient currently on BiPAP Patient received contrast with CTs. 2. Altered mental status: Likely multifactorial, improved 3. Acute on chronic respiratory failure, currently on BiPAP, HD as above and ultrafiltration as tolerated 4. Anemia, plan for transfusion 5. Recent infective endocarditis Attestations 2 Medical Necessity Statement*: per lois Coding Level of Care Code Acute Code for Chg Fwd Diagnoses ESRD (end stage renal disease) on dialysis N18.6; Z99.2
[2023-09-21 07:37] LABS: Glucose Point of Care 169 mg/dL (70-110)
[2023-09-21] MEDS: vancomycin 125 mg Capsule PO ×3 (08:04→20:41)
[2023-09-21] MEDS: OLANZapine 5 mg TABLET 2.5 MG PO ×2 (08:04→19:42)
[2023-09-21] MEDS: sevelamer 800 mg Tablet PO ×3 (08:04→20:41)
[2023-09-21] MEDS: gabapentin 100 mg Capsule PO ×3 (08:04→20:41)
[2023-09-21] MEDS: insulin lispro 100 unit/1 mL SUBCUT ×2 (08:05→17:56)
[2023-09-21 12:31] LABS: Glucose Point of Care 168 mg/dL (70-110)
[2023-09-21 12:33] LABS: Glucose Point of Care 274 mg/dL (70-110)
--- NOTE | 2023-09-21 15:26 | P.PN_ITS ---
Subjective 2 Subjective: Patient was seen this morning, currently he is down to 45% on heated high flow, he is alert awake, following all commands, he tells me that his shortness of breath is improving, but still feels better with BiPAP, afebrile overnight, discussed with him that he is 11 L negative, will need to continue to diurese him to help with his fluid overload, but given that his oxygen requirements remain high that he is BiPAP dependent he is going to need to go to a facility such as [facility] in [place] to help with his increased oxygen requirements I think that he is likely developed acute respiratory distress syndrome, from fluid overload, from pneumonia, he is likely going to need prolonged hospitalization at [facility] unless his oxygen requirements improved with the next few days we discussed extensively about him going up to [facility] and he is agreeable, I readdressed his CODE STATUS, he tells me that he is a DNR/DNI,, we also discussed that I think some component of his worsening respiratory status on Friday was secondary to an aspiration event, as he went from requiring 35% BiPAP to almost 70%, but his oxygen requirements are improving, will have to watch him closely keep on aspiration precautions, I have him on clears for now, thickened liquids, will advance as tolerated, have speech therapy reassess, as his respiratory status gets better his aspiration risk will decrease Vitals/I&O/Wt Last Vital Signs Temp 97.2 F L 09/20/23 15:41 Pulse 84 09/21/23 14:00 Resp 25 H 09/21/23 14:00 BP 116/48 09/21/23 14:00 Pulse Ox 90 09/21/23 14:00 O2 Del Method BiPAP 09/21/23 13:39 O2 Flow Rate 30 09/21/23 11:41 FiO2 45 09/21/23 13:41 09/21/23 09/21/23 09/21/23 06:59 14:59 22:59 Intake Total 200 / 1020 720 / 720 Output Total 30 / 3330 Balance 170 / -2310 720 / 720 Weight last 48 hrs Weight 112.763 kg Weight 116.5 kg Weight 116.5 kg Physical Exam 2 Const: COMMON NORMALS: no acute distress and patient oriented x3 Resp: COMMON NORMALS: normal respiratory effort, No retractions and No use of accessory muscles AUSCULTATION: crackles and wheezes Cardio: COMMON NORMALS: regular rate, regular rhythm, S1 normal heart sound present and S2 normal heart sound present RATE: regular rate RHYTHM: r egular rhythm HEART SOUNDS: S1 normal heart sound present and S2 normal heart sound present GI: COMMON NORMALS: Normal to inspection, nondistended, normoactive bowel sounds present and non-tender Extremity: COMMON NORMALS: no pedal edema Neuro: COMMON NORMALS: patient oriented x3 Psych: COMMON NORMALS: mental status grossly normal Urinary Catheter Management: Fuentes: Cath Placed During This Visit: yes Reason for Continuing Indwelling Catheter: Accurate Measurement of Urinary Output in Critically Ill Patients Urinary Catheter Date of Insertion: 09/15/23 Urinary Catheter Time of Insertion: 05:24 Data 09/21/23 03:25 09/21/23 03:25 Micro: Microbiology 09/20/23 09:52 Blood Culture - Preliminary Blood NEGATIVE TO DATE 09/20/23 09:59 Blood Culture - Preliminary Blood NEGATIVE TO DATE A&P Assessment and plan (1) Acute encephalopathy: (2) Acute hypoxic respiratory failure: (3) Pulmonary edema: (4) CHF exacerbation: (5) Aspiration pneumonia: (6) Urinary tract infection: (7) ESRD (end stage renal disease) on dialysis: (8) Hypoglycemia: (9) Endocarditis: Qualifiers: Chronicity: unspecified Endocarditis type: infective Infective endocarditis organism: bacterial Qualified Code(s): I33.0 - Acute and subacute infective endocarditis (10) Afib: (11) Anemia: (12) Decubitus ulcer of heel, unstageable: (13) Altered mental status: Qualifiers: Altered mental status type: delirium Qualified Code(s): R41.0 - Disorientation, unspecified (14) Edema: (15) NSTEMI (non-ST elevated myocardial infarction): (16) Septic shock: (17) Shock: (18) Acute respiratory distress syndrome: (19) Pulmonary arterial hypertension: (20) Bilateral pleural effusion: (21) History of Clostridioides difficile colitis: Plan Acute encephalopathy, resolved ? Multifactorial ? Sepsis ? Uremia ? UTI ? Neurochecks ? Aspiration precautions ? CT head to check for septic embolization, within normal limits Acute hypoxic respiratory failure, acute respiratory distress syndrome ? Multifactorial ? Missed dialysis fluid overload pulm edema CHF exacerbation, only had 2 sessions of dialysis in the last month ? Aspiration pneumonia, aspiration pneumonitis with aspiration event on 09/20/2023, with dramatic increase in oxygen requirements up to 70% BiPAP ? Now with persistent BiPAP dependence, heated high flow 45% -acute respiratory distress syndrome -CT angiogram CT/CT angio chest PE protcl [id number] IMPRESSION: 1. Limitations result in suboptimal opacification and heterogeneity of the pulmonary arteries. There is no obvious larger central pulmonary embolism, but a smaller segmental or subsegmental PE in either lung can not be excluded on the basis of this examination. 2. Unchanged prominent central pulmonary arteries suggesting pulmonary artery hypertension. 3. Unchanged mild cardiomegaly. No evidence of right heart strain. 4. Considerable increase in extensive bilateral pulmonary abnormality which may all be atelectasis and pneumonitis, but some of this could be malignancy. Increased occlusion and narrowing of bilateral bronchi. 5. Unchanged tracheomalacia. New mild indentation right tracheal wall associated with soft tissue could be invasion of neoplastic lymphadenopathy. Consider bronchoscopy. 6. Increased large right pleural effusion. Increased small left pleural effusion with continued areas of loculation. Empyema is possible. 7. Increased mediastinal and right pulmonary hilar lymphadenopathy could be reactive or neoplastic. 8. Additional details as above. ? In addition fluid overload -11 L so far noncompliance with dialysis as outpatient ? Plan ? Monitor in ICU ? Currently on 45% heated high flow, still dependent on BiPAP, ? Currently receiving dialysis for fluid overload, -11 L so far, will receive a session of dialysis ? de-escalate antibiotics to ampicillin and Rocephin, vancomycin ? Patient has bilateral pleural effusions, the left one shows loculation, will consider ultrasound thoracocentesis based on clinical progress ? Solu-Medrol 125 mg, followed by 60 mg IV every 8 hours -Monitor respiratory status closely ? Aspiration precautions ? Clear liquids, thickened liquids ? Diet advance as tolerated Concerns for aspiration pneumonia, aspiration pneumonitis ? Right upper lobe shows groundglass opacities ?Continue ampicillin, Rocephin, vancomycin ?follow blood cultures Dialysis port site, with slight erythema ? Repeat blood cultures from port site so far negative UTI ? Follow urine culture -History of ESBL, -Urine cultures have been lackluster, de-escalate antibiotic therapy Septic shock/shock -Off pressors -Multi factorial from sepsis, anemia - maintain MAP greater than 65 Acute anemia -Hemoglobin 6.6, repeat hemoglobin 8.2 ? On Eliquis at correction, currently on hold -Hemoccult stool positive for blood ? Ferritin, iron ? Received 1 unit PRBC during this hospitalization ? Monitor hemodynamics Monitor hemoglobin NSTEMI ? Type I versus type II -Serial EKGs consult to medical telemetry monitoring -Hold off on blood thinners given anemia as above -Cardiac echo CONCLUSIONS Moderate left ventricular hypertrophy. Normal left ventricular size and systolic function, EF 75%. Echo dense mobile mass on the right coronary cusp of the aortic valve, may suggest healed vegetation Thickened mitral valve with a moderate mitral annular calcification. No obvious masses noted in the mitral valve. Mildly increased left atrial size. There is an echodense mass on the ventricular aspect of the right coronary cusp with a partial mobility, may suggest a healed vegetation Mildly increased left atrial size. There is no pericardial effusion. There are no intracardiac masses. 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 CT head, CT chest abdomen pelvis to evaluate for septic embolization, no evidence of septic embolization radiographically ? On ampicillin, Rocephin ? Follow blood cultures, so far negative End-stage renal disease on dialysis ? Patient has been refusing dialysis and nursing staff facility as per nursing staff ?After extensive discussion with patient, he agrees to be compliant with dialysis, had extensive discussion with him about morbidity and mortality missing dialysis, he voiced understanding, all questions answered, tells me that he is glenroy be compliant with dialysis Multiple diabetic ulcers bilateral feet, left heel diabetic ulcer -Left heel diabetic ulcer ? On antibiotics as above, ?consult podiatry History of C. difficile -Currently on a tapered regimen, currently on 4 times a day, currently on day 6 -Last dose 11/03/2023 according to the correction Agitation, currently on Zyprexa DNR/DNI ? Subcu heparin for DVT prophylaxis Attestations 2 Medical Necessity Statement*: Patient requires hospitalization, for acute hypoxic respiratory failure, secondary to fluid overload, aspiration pneumonia, aspiration pneumonitis, acute respiratory distress syndrome Diagnoses Acute encephalopathy G93.40 Acute hypoxic respiratory failure J96.01 Pulmonary edema J81.1 CHF exacerbation I50.9 Aspiration pneumonia J69.0 Urinary tract infection N39.0 ESRD (end stage renal disease) on dialysis N18.6; Z99.2 Hypoglycemia E16.2 Endocarditis I33.0 Chronicity: unspecified Endocarditis type: infective Infective endocarditis organism: bacterial Afib I48.91 Anemia D64.9 Decubitus ulcer of heel, unstageable L89.600 Altered mental status R41.0 Altered mental status type: delirium Edema R60.9 NSTEMI (non-ST elevated myocardial infarction) I21.4 Septic shock A41.9; R65.21 Shock R57.9 Acute respiratory distress syndrome J80 Pulmonary arterial hypertension I27.21 Bilateral pleural effusion J90 History of Clostridioides difficile colitis Z86.19
[2023-09-21 18:31] LABS: Glucose Point of Care 275 mg/dL (70-110)
[2023-09-21] MEDS: metoprolol tartrate 50 mg Tablet PO (20:41)
[2023-09-21 22:55] LABS: Glucose Point of Care 185 mg/dL (70-110)
[2023-09-22] VITALS (52 sets, daily range): BP systolic 92–159; BP diastolic 40–86; PULSE 58–82; RESP 11–24; TEMP 36.1–36.9; O2SAT 83–98; BMI 34.0
[2023-09-22] MEDS: ipratropium-albuterol 3 mL Neb INHALATION ×4 (02:19→21:00)
[2023-09-22 04:44] LABS: Hematocrit 29.4 % (37-53); Lymphocytes # 0.2 10^3/uL (0.8-4.8); Lymphocytes % 4.8 %; Mean Corpuscular HGB Conc 29.6 g/dL (30-55); Mean Platelet Volume 9.2 fL (7.4-10.4); Monocytes # 0.1 10^3/uL (0.2-0.9); Monocytes % 1.7 %; Neutrophils # 3.29 10^3/uL (1.8-7.7); Neutrophils % 92.9 %; Nucleated Red Blood Cells % 0 %; Platelet Count 208 10^3/cmm (157-399); Red Cell Distribution Width 15.9 % (12.1-15.1); White Blood Count 3.54 10^3/uL (3.29-11.43)
[2023-09-22 05:05] LABS: Anion Gap 14.1 (5-19); Blood Urea Nitrogen 29 mg/dL (8-23); Calcium 8.5 mg/dL (8.5-10.5); Carbon Dioxide 28 mmol/L (22-29); Chloride 102 mmol/L (98-107); Creatinine Clr Calc Pharmacy 22.1414; Glomerular Filtration Rate 13.1 mL/min (90-130); Glucose 248 mg/dL (65-115); Osmolality Calculated 302 mOsm/kg (285-295); Potassium 5.1 mmol/L (3.5-5.1); Sodium 139 mmol/L (136-145)
[2023-09-22] MEDS: ampicillin 2,000 MG in sodium chloride 0.9% (plus) 50 ML 100 MG IV ×2 (05:32→17:26)
[2023-09-22] MEDS: cefTRIAXone 2,000 MG in sodium chloride 0.9% (plus) 50 ML 100 MG IV (05:39)
[2023-09-22] MEDS: methylPREDNISolone sod succ 125 mg/2 mL INJ 60 MG IVP ×3 (05:41→22:13)
[2023-09-22] MEDS: amiodarone 200 mg Tablet PO (05:49)
[2023-09-22] MEDS: heparin, porcine 1,000 unit/mL INJ 10 mL 1000 UNIT IV (07:45)
[2023-09-22] MEDS: pantoprazole 40 mg SDV IVP ×2 (07:46→19:34)
[2023-09-22] MEDS: heparin 5,000 unit/mL INJ 1 mL 5000 UNIT SUBCUT ×2 (07:46→19:34)
[2023-09-22 07:58] LABS: Glucose Point of Care 224 mg/dL (70-110)
--- NOTE | 2023-09-22 07:59 | PC.HD ---
HD catheter dressing changed. Reddened area around catheter insertion site unchanged from Tuesday 09/19. No pus/exudate noted.
[2023-09-22] MEDS: sevelamer 800 mg Tablet PO ×3 (08:02→21:23)
[2023-09-22] MEDS: gabapentin 100 mg Capsule PO ×3 (08:02→21:23)
[2023-09-22] MEDS: OLANZapine 5 mg TABLET 2.5 MG PO ×2 (08:02→19:34)
[2023-09-22] MEDS: vancomycin 125 mg Capsule PO ×3 (08:03→21:24)
[2023-09-22] MEDS: insulin lispro 100 unit/1 mL SUBCUT ×3 (08:11→17:24)
--- NOTE | 2023-09-22 08:47 | P.PN_ITS ---
Subjective 2 Subjective: getting HD Medications: Reviewed: Yes Vitals/I&O/Wt Last Vital Signs Temp 97.8 F 09/22/23 08:30 Pulse 73 09/22/23 08:30 Resp 19 H 09/22/23 08:30 BP 148/65 09/22/23 08:30 Pulse Ox 91 09/22/23 08:30 O2 Del Method Nasal Cannula 09/22/23 08:30 O2 Flow Rate 12 09/22/23 08:30 FiO2 40 09/22/23 08:00 09/21/23 09/22/23 09/22/23 22:59 06:59 14:59 Intake Total 610 / 1330 360 / 1690 Output Total 50 / 50 Balance 610 / 1330 310 / 1640 Weight last 48 hrs Weight 113.761 kg Weight 112.763 kg Weight 116.5 kg Physical Exam 2 Narrative: , no distress s2s2 RRR per report Lungs clear per report + edema Urinary Catheter Management: Fuentes: Cath Placed During This Visit: yes Reason for Continuing Indwelling Catheter: Accurate Measurement of Urinary Output in Critically Ill Patients Urinary Catheter Date of Insertion: 09/15/23 Urinary Catheter Time of Insertion: 05:24 Data 09/22/23 04:29 09/22/23 04:29 Micro: Microbiology 09/20/23 09:52 Blood Culture - Preliminary Blood NEGATIVE TO DATE 09/20/23 09:59 Blood Culture - Preliminary Blood NEGATIVE TO DATE A&P Assessment and plan (1) ESRD (end stage renal disease) on dialysis: 1. End-stage renal disease: On MWF schedule for dialysis, s/p hd yesterday, next HD today Ultrafiltration as tolerated, patient currently off BiPAP Patient received contrast with CTs. 2. Altered mental status: Likely multifactorial, improved 3. Acute on chronic respiratory failure, currently on BiPAP, HD as above and ultrafiltration as tolerated 4. Anemia, plan for transfusion 5. Recent infective endocarditis Attestations 2 Medical Necessity Statement*: per medicine Coding Level of Care Code Acute Code for Chg Fwd Diagnoses ESRD (end stage renal disease) on dialysis N18.6; Z99.2
--- NOTE | 2023-09-22 10:46 | PC.HD ---
19.5L removed total in 7 HD treatments from 09/14/2023 to 09/22/2023.
[2023-09-22 12:21] LABS: Glucose Point of Care 143 mg/dL (70-110)
--- NOTE | 2023-09-22 14:56 | P.PN_ITS ---
Subjective 2 Subjective: Patient is on 12 L nasal cannula Has significant conversational dyspnea Afebrile Hemoglobin stable Getting dialyzed today Can be transferred out of ICU to [facility] Vitals/I&O/Wt Last Vital Signs Temp 98.1 F 09/22/23 12:42 Pulse 76 09/22/23 13:36 Resp 16 09/22/23 13:35 BP 156/55 09/22/23 12:42 Pulse Ox 92 09/22/23 13:35 O2 Del Method High Flow Nasal Cannula 09/22/23 13:35 O2 Flow Rate 10 09/22/23 13:35 FiO2 40 09/22/23 08:00 09/21/23 09/22/23 09/22/23 22:59 06:59 14:59 Intake Total 610 / 1330 360 / 1690 350 / 350 Output Total 50 / 50 3300 / 3300 Balance 610 / 1330 310 / 1640 -2950 / -2950 Weight last 48 hrs Weight 113.9 kg Weight 113.761 kg Weight 112.763 kg Weight 116.5 kg Physical Exam 2 Narrative: Patient is getting dialyzed Awake and alert Conversational dyspnea present on 12 L nasal cannula Use BiPAP overnight Awake and alert active sign of fluid overload Abdomen soft but distended Pleasant and cooperative Nonfocal neuroexam Lower extremity venous stasis dermatitis with lymphedema S1, S2 variable Urinary Catheter Management: Fuentes: Cath Placed During This Visit: yes Reason for Continuing Indwelling Catheter: Accurate Measurement of Urinary Output in Critically Ill Patients Urinary Catheter Date of Insertion: 09/15/23 Urinary Catheter Time of Insertion: 05:24 Data 09/22/23 04:29 09/22/23 04:29 Micro: Microbiology 09/20/23 09:52 Blood Culture - Preliminary Blood NEGATIVE TO DATE 09/20/23 09:59 Blood Culture - Preliminary Blood NEGATIVE TO DATE A&P Assessment and plan (1) Hypotension: (2) CHF exacerbation: (3) Pulmonary arterial hypertension: (4) Endocarditis: Qualifiers: Chronicity: unspecified Endocarditis type: infective Infective endocarditis organism: bacterial Qualified Code(s): I33.0 - Acute and subacute infective endocarditis (5) NSTEMI (non-ST elevated myocardial infarction): (6) Shock: (7) Afib: (8) DM2 (diabetes mellitus, type 2): (9) ESRD (end stage renal disease) on dialysis: (10) Chronic anemia: (11) Pressure ulcer of right heel, unstageable: (12) Decubitus ulcer of heel, unstageable: (13) Enterococcus faecalis infection: (14) History of Clostridioides difficile colitis: (15) Altered mental status: Qualifiers: Altered mental status type: delirium Qualified Code(s): R41.0 - Disorientation, unspecified (16) Acute hypoxic respiratory failure: (17) Pulmonary edema: (18) Aspiration pneumonia: (19) Bilateral pleural effusion: (20) Edema: Plan Metabolic encephalopathy: Resolved End-stage renal disease continue Friday dialysis Acute on chronic hypoxia Oxygenation improving currently on 12 L nasal cannula Anticipating more improvement with dialysis Aspiration pneumonitis Discontinue vancomycin Continue ceftriaxone and ampicillin for Enterococcus endocarditis history Patient will need senior living placement, I highly doubt he will qualify for [facility] History of ESBL UTI no active flare Septic shock: Resolved Acute GI blood loss anemia, hemoglobin stable Eliquis discontinued Status post 1 unit PRBC Type II MS: No active chest pain Bacterial endocarditis continue antibiotics Diabetic foot ulcer: No active signs of cellulitis C. difficile: Currently on TB regimen last dose will be on 11/02 DNI/DNI Attestations 2 Medical Necessity Statement*: Continue medical management transfer out of ICU Diagnoses Hypotension I95.9 CHF exacerbation I50.9 Pulmonary arterial hypertension I27.21 Endocarditis I33.0 Chronicity: unspecified Endocarditis type: infective Infective endocarditis organism: bacterial NSTEMI (non-ST elevated myocardial infarction) I21.4 Shock R57.9 Afib I48.91 DM2 (diabetes mellitus, type 2) E11.9 ESRD (end stage renal disease) on dialysis N18.6; Z99.2 Chronic anemia D64.9 Pressure ulcer of right heel, unstageable L89.610 Decubitus ulcer of heel, unstageable L89.600 Enterococcus faecalis infection A49.8 History of Clostridioides difficile colitis Z86.19 Altered mental status R41.0 Altered mental status type: delirium Acute hypoxic respiratory failure J96.01 Pulmonary edema J81.1 Aspiration pneumonia J69.0 Bilateral pleural effusion J90 Edema R60.9
[2023-09-22 16:59] LABS: Glucose Point of Care 359 mg/dL (70-110)
--- NOTE | 2023-09-22 18:10 | PC.NURSE ---
Shift SUmmary: Uneventful shift. Patient had dialysis in the morning. 3L removed. Up to the chair for most of the day, 2 person assist up to the chair. Oxygen was titrated to as low as 8Lpm NC while up in the chair, but requirements went back up to 12LPM or bipap while back in bed.
--- NOTE | 2023-09-22 21:08 | PC.NURSE ---
Med Surg Transfer: Patient transferred to med surg, all belongings with patient. Receiving nurse at beside upon arrival.
[2023-09-22] MEDS: metoprolol tartrate 50 mg Tablet PO (21:23)
[2023-09-22 21:50] LABS: Glucose Point of Care 237 mg/dL (70-110)
[2023-09-23] VITALS (15 sets, daily range): BP systolic 110–138; BP diastolic 45–64; PULSE 65–80; RESP 14–20; TEMP 36.3–36.7; O2SAT 87–94
[2023-09-23] MEDS: ipratropium-albuterol 3 mL Neb INHALATION ×4 (02:36→19:48)
[2023-09-23] MEDS: methylPREDNISolone sod succ 125 mg/2 mL INJ 60 MG IVP (05:35)
[2023-09-23 06:09] LABS: Hematocrit 29.7 % (37-53); Lymphocytes # 0.1 10^3/uL (0.8-4.8); Lymphocytes % 2.7 %; Mean Corpuscular HGB Conc 29.6 g/dL (30-55); Mean Corpuscular Hemoglobin 29.5 pg (27-33); Mean Corpuscular Volume 99.7 fl (82-101); Mean Platelet Volume 9.7 fL (7.4-10.4); Monocytes # 0.1 10^3/uL (0.2-0.9); Monocytes % 1.9 %; Neutrophils # 3.52 10^3/uL (1.8-7.7); Neutrophils % 94.9 %; Nucleated Red Blood Cells % 0 %; Platelet Count 200 10^3/cmm (157-399); Red Blood Count 2.98 10^6/uL (3.85-5.65); Red Cell Distribution Width 16.3 % (12.1-15.1); White Blood Count 3.71 10^3/uL (3.29-11.43)
[2023-09-23] MEDS: cefTRIAXone 2,000 MG in sodium chloride 0.9% (plus) 50 ML 100 MG IV (06:16)
[2023-09-23] MEDS: amiodarone 200 mg Tablet PO (06:17)
[2023-09-23 06:27] LABS: Anion Gap 14.5 (5-19); Blood Urea Nitrogen 32 mg/dL (8-23); Calcium 8.8 mg/dL (8.5-10.5); Carbon Dioxide 29 mmol/L (22-29); Chloride 97 mmol/L (98-107); Creatinine Clr Calc Pharmacy 28.3117; Glomerular Filtration Rate 16.8 mL/min (90-130); Glucose 278 mg/dL (65-115); Osmolality Calculated 299 mOsm/kg (285-295); Potassium 4.5 mmol/L (3.5-5.1); Sodium 136 mmol/L (136-145)
[2023-09-23 06:35] LABS: Glucose Point of Care 274 mg/dL (70-110)
[2023-09-23] MEDS: ampicillin 2,000 MG in sodium chloride 0.9% (plus) 50 ML 100 MG IV ×2 (06:50→18:06)
[2023-09-23] MEDS: heparin 5,000 unit/mL INJ 1 mL 5000 UNIT SUBCUT ×2 (06:51→18:57)
--- NOTE | 2023-09-23 08:54 | P.PN_ITS ---
Subjective 2 Subjective: s/p hd yesterday Medications: Reviewed: Yes Vitals/I&O/Wt Last Vital Signs Temp 97.7 F 09/23/23 08:00 Pulse 76 09/23/23 08:30 Resp 18 09/23/23 08:30 BP 134/56 09/23/23 08:00 Pulse Ox 87 L 09/23/23 08:30 O2 Del Method High Flow Nasal Cannula 09/23/23 08:30 O2 Flow Rate 10 09/23/23 08:30 FiO2 50 09/23/23 03:01 09/22/23 09/23/23 09/23/23 22:59 06:59 14:59 Intake Total 410 / 1360 120 / 1480 50 / 50 Output Total 0 25 / 3335 Balance 400 / -1950 95 / -1855 50 / 50 Weight last 48 hrs Weight 119.295 kg Weight 113.9 kg Weight 113.761 kg Physical Exam 2 Narrative: , no distress s2s2 RRR per report Lungs clear per report + edema Urinary Catheter Management: Fuentes: Cath Placed During This Visit: yes Reason for Continuing Indwelling Catheter: Acute Urinary Retention or Obstruction Urinary Catheter Date of Insertion: 09/15/23 Urinary Catheter Time of Insertion: 05:24 Data 09/23/23 05:01 09/23/23 05:01 A&P Assessment and plan (1) ESRD (end stage renal disease) on dialysis: 1. End-stage renal disease: On MWF schedule for dialysis, hd tomorrow Ultrafiltration as tolerated, patient currently off BiPAP 2. Altered mental status: Likely multifactorial, improved 3. Acute on chronic respiratory failure, currently on BiPAP, HD as above and ultrafiltration as tolerated 4. Anemia, plan for transfusion 5. Recent infective endocarditis Attestations 2 Medical Necessity Statement*: per medicine Coding Level of Care Code Acute Code for Chg Fwd Diagnoses ESRD (end stage renal disease) on dialysis N18.6; Z99.2
[2023-09-23] MEDS: OLANZapine 5 mg TABLET 2.5 MG PO ×2 (09:04→20:08)
[2023-09-23] MEDS: vancomycin 125 mg Capsule PO ×3 (09:04→20:08)
[2023-09-23] MEDS: gabapentin 100 mg Capsule PO ×3 (09:04→20:08)
[2023-09-23] MEDS: sevelamer 800 mg Tablet PO ×3 (09:04→20:08)
[2023-09-23] MEDS: insulin lispro 100 unit/1 mL SUBCUT ×3 (09:04→18:06)
--- NOTE | 2023-09-23 09:20 | PC.CHAP ---
Pastoral Care Encounter/Spiritual Assessment Type of Contact [] Declined aquatics assistant department head visit [] Patient/Family/Request visit [] Outpatient visit [] Follow-up visit [] Physician referral [] Code/Alert [x] Routine visit [] Staff referral [] Actively dying [] Patient sleeping [] Family support [] [] Out of room [] Palliative care [] [] Receiving care in room [] Pre-surgical visit [] Trauma [] Long length of stay [] ICU visit [] Other: Relational/Emotional Strength [x] Patient feels connected with others/family/visitors/staff [] Distress [] Loneliness/isolation [] Abandonment Spirituality of Patient [x] Person of Naila [] Attends Amish of their Naila [x] Believes in Prayer [] Reads Bible or Pentecostalism materials [] There are Spiritual issues to be addressed Practical Nurse Interventions [x] Prayer [x] Active listening [] Non-anxious presence [x] Spiritual/emotional support [] Crisis/trauma care [] Spiritual counseling [] Bereavement support [] Provided bereavement packet [] Provided Bible/devotional materials [] Provided toy/stuffed animal, coloring book to patient or family member [] Provided Communion [] Anointing/[place] [] Salvation [x] Completed spiritual assessment [] Other: Impact on Illness or Injury [] Angry [] Fearful [] Anxious [] Often cries [] Exhaustion [] Unable to work [] Unable to attend synagogue [] Unable to walk/stand [] Unable to read [] Unable to drive [] Unable to eat/drink [] Unable to sleep [] Unable to be with family [] Patient intubated [] Other: Summary Time spent with patient 5 min
[2023-09-23] MEDS: pantoprazole 40 mg SDV IVP ×2 (11:23→20:07)
--- NOTE | 2023-09-23 11:25 | P.PN_ITS ---
Subjective 2 Subjective: Patient is feeling much better today Tolerating diet He was stating that he is very hungry and wanted another tray Currently on 11 L I do not think he will qualify for LTAC for now Plan is to send him to local senior living once his ox requirement is on 6 L Vitals/I&O/Wt Last Vital Signs Temp 97.7 F 09/23/23 08:00 Pulse 76 09/23/23 08:30 Resp 18 09/23/23 08:30 BP 134/56 09/23/23 08:00 Pulse Ox 87 L 09/23/23 08:30 O2 Del Method High Flow Nasal Cannula 09/23/23 08:30 O2 Flow Rate 10 09/23/23 08:30 FiO2 50 09/23/23 03:01 09/22/23 09/23/23 09/23/23 22:59 06:59 14:59 Intake Total 410 / 1360 120 / 1480 176.562 / 176.562 Output Total 10 / 3310 25 / 3335 Balance 400 / -1950 95 / -1855 176.562 / 176.562 Weight last 48 hrs Weight 119.295 kg Weight 113.9 kg Weight 113.761 kg Physical Exam 2 Narrative: Signs of fluid overload currently on 11 L GCS 15 Nonfocal neuroexam Abdomen distended but soft Pleasant cooperative Tolerating diet Currently on nasal cannula S1, S2 variable Fuentes catheter in place Extremity venous stasis ulcer with lymphedema Urinary Catheter Management: Fuentes: Cath Placed During This Visit: yes Reason for Continuing Indwelling Catheter: Acute Urinary Retention or Obstruction Urinary Catheter Date of Insertion: 09/15/23 Urinary Catheter Time of Insertion: 05: Data 09/23/23 05:01 09/23/23 05:01 A&P Assessment and plan (1) Hypotension: (2) CHF exacerbation: (3) Pulmonary arterial hypertension: (4) Endocarditis: Qualifiers: Chronicity: unspecified Endocarditis type: infective Infective endocarditis organism: bacterial Qualified Code(s): I33.0 - Acute and subacute infective endocarditis (5) Afib: (6) DM2 (diabetes mellitus, type 2): (7) ESRD (end stage renal disease) on dialysis: (8) Edema: (9) Acute hypoxic respiratory failure: (10) Pulmonary edema: (11) Altered mental status: Qualifiers: Altered mental status type: delirium Qualified Code(s): R41.0 - Disorientation, unspecified (12) Acute encephalopathy: (13) Septic shock: (14) Chronic anemia: Plan Metabolic encephalopathy has completely resolved Patient is awake and alert eating on his own Currently on dysphagia diet Acute on chronic hypoxia Related to fluid overload Getting better with dialysis My target is to send him to senior living once he is on 6 L Currently on 11 L nasal cannula Wean oxygen down slowly Aspiration pneumonitis Currently he is on infective endocarditis IV antibiotic treatment Finish antibiotics for ESBL UTI Septic shock resolved completely Acute on chronic anemia: Stable status post 1 unit PRBC Eliquis has been discontinued C. difficile empirical coverage until 11/02 DO NOT RESUSCITATE/DNI Currently on dysphagia diet Attestations 2 Medical Necessity Statement*: Awaiting placement once oxygen is around 6 L Diagnoses Hypotension I95.9 CHF exacerbation I50.9 Pulmonary arterial hypertension I27.21 Endocarditis I33.0 Chronicity: unspecified Endocarditis type: infective Infective endocarditis organism: bacterial Afib I48.91 DM2 (diabetes mellitus, type 2) E11.9 ESRD (end stage renal disease) on dialysis N18.6; Z99.2 Edema R60.9 Acute hypoxic respiratory failure J96.01 Pulmonary edema J81.1 Altered mental status R41.0 Altered mental status type: delirium Acute encephalopathy G93.40 Septic shock A41.9; R65.21 Chronic anemia D64.9
[2023-09-23 11:55] LABS: Glucose Point of Care 246 mg/dL (70-110)
[2023-09-23 17:07] LABS: Glucose Point of Care 250 mg/dL (70-110)
[2023-09-23 21:04] LABS: Glucose Point of Care 233 mg/dL (70-110)
[2023-09-24] VITALS (12 sets, daily range): BP systolic 129–151; BP diastolic 53–64; PULSE 73–94; RESP 6–22; TEMP 36.4–37.2; O2SAT 87–95
[2023-09-24] MEDS: ipratropium-albuterol 3 mL Neb INHALATION ×3 (02:07→20:00)
[2023-09-24 05:04] LABS: Hematocrit 29.8 % (37-53); Lymphocytes # 0.2 10^3/uL (0.8-4.8); Lymphocytes % 4.3 %; Mean Corpuscular HGB Conc 30.2 g/dL (30-55); Mean Corpuscular Hemoglobin 30.2 pg (27-33); Mean Platelet Volume 9.7 fL (7.4-10.4); Monocytes # 0.3 10^3/uL (0.2-0.9); Monocytes % 5.9 %; Neutrophils # 4.97 10^3/uL (1.8-7.7); Neutrophils % 89.4 %; Nucleated Red Blood Cells % 0 %; Platelet Count 177 10^3/cmm (157-399); Red Blood Count 2.98 10^6/uL (3.85-5.65); Red Cell Distribution Width 16.4 % (12.1-15.1); White Blood Count 5.56 10^3/uL (3.29-11.43)
[2023-09-24 05:21] LABS: Anion Gap 17.8 (5-19); Blood Urea Nitrogen 54 mg/dL (8-23); Carbon Dioxide 27 mmol/L (22-29); Chloride 99 mmol/L (98-107); Creatinine Clr Calc Pharmacy 20.5942; Glomerular Filtration Rate 11.6 mL/min (90-130); Glucose 261 mg/dL (65-115); Osmolality Calculated 312 mOsm/kg (285-295); Potassium 4.8 mmol/L (3.5-5.1); Sodium 139 mmol/L (136-145)
[2023-09-24] MEDS: ampicillin 2,000 MG in sodium chloride 0.9% (plus) 50 ML 100 MG IV ×2 (05:23→17:46)
[2023-09-24] MEDS: amiodarone 200 mg Tablet PO (05:58)
[2023-09-24] MEDS: cefTRIAXone 2,000 MG in sodium chloride 0.9% (plus) 50 ML 100 MG IV (05:58)
[2023-09-24] MEDS: heparin 5,000 unit/mL INJ 1 mL 5000 UNIT SUBCUT ×2 (06:29→17:47)
[2023-09-24 06:33] LABS: Glucose Point of Care 245 mg/dL (70-110)
[2023-09-24] MEDS: insulin lispro 100 unit/1 mL SUBCUT ×2 (09:02→17:47)
[2023-09-24] MEDS: OLANZapine 5 mg TABLET 2.5 MG PO ×2 (09:03→20:13)
[2023-09-24] MEDS: sevelamer 800 mg Tablet PO ×3 (09:03→20:12)
[2023-09-24] MEDS: gabapentin 100 mg Capsule PO ×3 (09:03→20:13)
[2023-09-24] MEDS: vancomycin 125 mg Capsule PO ×3 (09:03→20:12)
[2023-09-24] MEDS: pantoprazole 40 mg SDV IVP ×2 (09:12→20:12)
--- NOTE | 2023-09-24 09:32 | P.PN_ITS ---
Subjective 2 Subjective: on 5 L NC Medications: Reviewed: Yes Vitals/I&O/Wt Last Vital Signs Temp 97.7 F 09/24/23 07:18 Pulse 86 09/24/23 08:00 Resp 18 09/24/23 08:00 BP 137/64 09/24/23 07:18 Pulse Ox 92 09/24/23 08:00 O2 Del Method BiPAP 09/24/23 08:00 O2 Flow Rate 10 09/24/23 02:08 FiO2 45 09/24/23 08:00 09/23/23 09/24/23 09/24/23 22:59 06:59 14:59 Intake Total 170 / 346.562 160 / 506.562 Output Total 50 / 50 Balance 170 / 346.562 110 / 456.562 Weight last 48 hrs Weight 119.918 kg Weight 119.295 kg Weight 113.9 kg Physical Exam 2 Narrative: , no distress s2s2 RRR per report Lungs clear per report + edema Urinary Catheter Management: Fuentes: Cath Placed During This Visit: yes Reason for Continuing Indwelling Catheter: Acute Urinary Retention or Obstruction Urinary Catheter Date of Insertion: 09/15/23 Urinary Catheter Time of Insertion: 05:24 Data 09/24/23 04:40 09/24/23 04:40 A&P Assessment and plan (1) ESRD (end stage renal disease) on dialysis: 1. End-stage renal disease: On MWF schedule for dialysis, hd today Ultrafiltration as tolerated, patient currently off BiPAP 2. Altered mental status: Likely multifactorial, improved 3. Acute on chronic respiratory failure, currently on BiPAP, HD as above and ultrafiltration as tolerated 4. Anemia, plan for transfusion 5. Recent infective endocarditis Attestations 2 Medical Necessity Statement*: per lois Coding Level of Care Code Acute Code for Chg Fwd Diagnoses ESRD (end stage renal disease) on dialysis N18.6; Z99.2
--- NOTE | 2023-09-24 11:45 | P.PN_ITS ---
Subjective 2 Subjective: Patient is doing well on 8 L oxygen Due for dialysis today No active complaints Vitals/I&O/Wt Last Vital Signs Temp 97.7 F 09/24/23 07:18 Pulse 86 09/24/23 08:00 Resp 18 09/24/23 08:00 BP 137/64 09/24/23 07:18 Pulse Ox 92 09/24/23 08:00 O2 Del Method BiPAP 09/24/23 08:00 O2 Flow Rate 10 09/24/23 08:00 FiO2 45 09/24/23 08:00 09/23/23 09/24/23 09/24/23 22:59 06:59 14:59 Intake Total 170 / 346.562 160 / 506.562 Output Total 50 / 50 Balance 170 / 346.562 110 / 456.562 Weight last 48 hrs Weight 119.918 kg Weight 119.295 kg Weight 113.9 kg Physical Exam 2 Narrative: Sign of fluid load present Lower extremity edema venous's dermatitis and lymphedema Currently on 8 L nasal cannula Active chest pain or shortness of breath Pleasant cooperative No new focal deficit Laying supine Urinary Catheter Management: Fuentes: Cath Placed During This Visit: yes Reason for Continuing Indwelling Catheter: Acute Urinary Retention or Obstruction Urinary Catheter Date of Insertion: 09/15/23 Urinary Catheter Time of Insertion: :24 Data 09/24/23 04:40 09/24/23 04:40 A&P Assessment and plan (1) Pulmonary arterial hypertension: (2) CHF exacerbation: (3) Endocarditis: Qualifiers: Chronicity: unspecified Endocarditis type: infective Infective endocarditis organism: bacterial Qualified Code(s): I33.0 - Acute and subacute infective endocarditis (4) Afib: (5) Shock: (6) DM2 (diabetes mellitus, type 2): (7) ESRD (end stage renal disease) on dialysis: (8) Anemia: (9) Chronic anemia: (10) History of Clostridioides difficile colitis: (11) Pressure ulcer of right heel, unstageable: (12) Decubitus ulcer of heel, unstageable: (13) Acute encephalopathy: (14) Acute hypoxic respiratory failure: (15) Pulmonary edema: (16) Aspiration pneumonia: Plan Anasarca Volume overload Dialysis due for today End-stage renal disease Endocarditis Enterococcus continue antibiotics Pressure ulcer: Nursing care frequent positioning Offloading dressing Acute on chronic hypoxia Improving with dialysis, currently on 8 L Disposition: long term once he is on 6 L Aspiration pneumonia: Improving Currently on dysphagia diet DNR/DNI Keep using BiPAP overnight Continue C. difficile colitis taper regimen Will recommend BiPAP at the bedtime with settings 14/8 FiO2 45% respiratory rate 12 Attestations 2 Medical Necessity Statement*: Likely discharge in next 48 hours Diagnoses Pulmonary arterial hypertension I27.21 CHF exacerbation I50.9 Endocarditis I33.0 Chronicity: unspecified Endocarditis type: infective Infective endocarditis organism: bacterial Afib I48.91 Shock R57.9 DM2 (diabetes mellitus, type 2) E11.9 ESRD (end stage renal disease) on dialysis N18.6; Z99.2 Anemia D64.9 Chronic anemia D64.9 History of Clostridioides difficile colitis Z86.19 Pressure ulcer of right heel, unstageable L89.610 Decubitus ulcer of heel, unstageable L89.600 Acute encephalopathy G93.40 Acute hypoxic respiratory failure J96.01 Pulmonary edema J81.1 Aspiration pneumonia J69.0
[2023-09-24 11:48] LABS: Glucose Point of Care 168 mg/dL (70-110)
[2023-09-24 17:38] LABS: Glucose Point of Care 237 mg/dL (70-110)
--- NOTE | 2023-09-24 19:05 | PC.NURSE ---
This nurse removed old dressing on right heel wound at 1900. Site was cleaned with sterile gauze and NS. Wet to dry dressing applied with sterile gauze, non-adherent dressing, ABD pad and kerlix. Pt tolerated dressing change well.
[2023-09-24] MEDS: metoprolol tartrate 50 mg Tablet PO (20:12)
[2023-09-24 21:04] LABS: Glucose Point of Care 221 mg/dL (70-110)
[2023-09-25] VITALS (15 sets, daily range): BP systolic 121–138; BP diastolic 52–64; PULSE 68–88; RESP 14–20; TEMP 36.4–37.1; O2SAT 86–99
[2023-09-25] MEDS: LORazepam 2 mg/mL INJ 10 mL MDV 0.5 MG IVP ×2 (00:49→23:13)
[2023-09-25] MEDS: ipratropium-albuterol 3 mL Neb INHALATION ×4 (01:39→20:30)
[2023-09-25] MEDS: ampicillin 2,000 MG in sodium chloride 0.9% (plus) 50 ML 100 MG IV (05:26)
[2023-09-25] MEDS: cefTRIAXone 2,000 MG in sodium chloride 0.9% (plus) 50 ML 100 MG IV (05:27)
[2023-09-25 06:41] LABS: Glucose Point of Care 237 mg/dL (70-110)
[2023-09-25] MEDS: amiodarone 200 mg Tablet PO (07:11)
[2023-09-25] MEDS: pantoprazole 40 mg SDV IVP ×2 (07:11→20:17)
[2023-09-25] MEDS: heparin 5,000 unit/mL INJ 1 mL 5000 UNIT SUBCUT ×2 (07:11→17:24)
[2023-09-25] MEDS: insulin lispro 100 unit/1 mL SUBCUT ×3 (08:16→17:24)
[2023-09-25] MEDS: vancomycin 125 mg Capsule PO ×3 (08:17→20:16)
[2023-09-25] MEDS: sevelamer 800 mg Tablet PO ×3 (08:17→20:16)
[2023-09-25] MEDS: OLANZapine 5 mg TABLET 2.5 MG PO ×2 (08:17→20:17)
[2023-09-25] MEDS: gabapentin 100 mg Capsule PO ×3 (08:17→20:16)
--- NOTE | 2023-09-25 09:13 | P.PN_ITS ---
Subjective 2 Subjective: on 5L NC Medications: Reviewed: Yes Vitals/I&O/Wt Last Vital Signs Temp 97.6 F 09/25/23 07:34 Pulse 68 09/25/23 08:00 Resp 15 09/25/23 08:00 BP 135/63 09/25/23 07:34 Pulse Ox 93 09/25/23 08:00 O2 Del Method BiPAP 09/25/23 08:00 O2 Flow Rate 10 09/25/23 07:34 FiO2 45 09/25/23 08:00 09/24/23 09/25/23 09/25/23 22:59 06:59 14:59 Intake Total 50 / 50 100 / 150 120 / 120 Output Total 100 / 100 Balance 50 / 50 0 / 50 120 / 120 Weight last 48 hrs Weight 115.411 kg Weight 119.918 kg Physical Exam 2 Narrative: , no distress s2s2 RRR per report Lungs clear per report + edema Urinary Catheter Management: Fuentes: Cath Placed During This Visit: yes Reason for Continuing Indwelling Catheter: Acute Urinary Retention or Obstruction Urinary Catheter Date of Insertion: 09/15/23 Urinary Catheter Time of Insertion: 05:24 Data 09/24/23 04:40 09/24/23 04:40 A&P Assessment and plan (1) ESRD (end stage renal disease) on dialysis: 1. End-stage renal disease: On MWF schedule for dialysis, hd done yesterday , may repeat HD today Ultrafiltration as tolerated, patient currently off BiPAP 2. Altered mental status: Likely multifactorial, improved 3. Acute on chronic respiratory failure, currently off BiPAP, HD as above and ultrafiltration as tolerated 4. Anemia, plan for transfusion 5. Recent infective endocarditis Attestations 2 Medical Necessity Statement*: per lois Coding Level of Care Code Acute Code for Chg Fwd Diagnoses ESRD (end stage renal disease) on dialysis N18.6; Z99.2
[2023-09-25 10:42] LABS: Glucose Point of Care 159 mg/dL (70-110)
[2023-09-25 11:12] LABS: SARS Covid-2 Antigen negative (Negative)
--- NOTE | 2023-09-25 11:26 | P.DS_ITS ---
Discharge Providers Date of Admission: 09/14/23 03:46 Date of Discharge: September 25, 2023 Attending Provider at Admission: Jen Albright MD Attending Provider at Discharge: Erick Rodriguez MD Primary Care Provider: Misty Ibrahim Diagnoses at Discharge Discharge Diagnosis (1) ESRD (end stage renal disease) on dialysis: Status: Acute Reason for Visit Reason for Visit: [facility] Hospital Course Hospital Course 62-year-old male with multiple comorbid conditions, extrarenal disease Friday. Showing up for dialysis, has history of Enterococcus bacteremia finished 6 weeks of antibiotics during this hospitalization, he was transferred to [facility] in July, PICC line will be removed before his discharge from the hospital, patient suffered from respiratory failure related to fluid overload pneumonia he had aspiration pneumonia as well speech therapist recommended dysphagia diet level 4, patient's hypoxia respiratory status improved with use of BiPAP, he is DNR/DNI he was requiring more oxygen on daily basis however we were able to wean him down to 6 to 7 L with dialysis and diuresis. He required BiPAP overnight and 6 to 8 L of oxygen in the daytime. Patient finished ampicillin and Rocephin treatment for endocarditis and he was kept on C. difficile taper regimen of p.o. vancomycin. Physical Exam Narrative: Sign of fluid overload Lymphedema Venous's dermatitis Lethargic and fatigued however be redirectable Currently on 6 L saturating above 90% Nonfocal neuro exam, S1 +2 radial Pressure ulcer non Purulent cellulitis of lower extremity Urinary Catheter Management: Fuentes: Cath Placed During This Visit: yes Reason for Continuing Indwelling Catheter: Acute Urinary Retention or Obstruction Urinary Catheter Date of Insertion: 09/15/23 Urinary Catheter Time of Insertion: 05:24 Discharge Data Studies Completed and Pending Completed Studies During Hospitalization Category Date Time Status CT abdomen pelvis wo con [id number] Routine Cat Scan 09/14/23 10:[address] angio chest PE protcl [id number] Stat Cat Scan 09/14/23 10:[address] angio chest PE protcl [id number] Stat Cat Scan 09/20/23 08:[address] head wo con* [id number] Routine Cat Scan 09/14/23 10:16 Completed XR chest 1V portable [id number] Routine Exams 09/15/23 07:00 Completed XR chest 1V portable [id number] Routine Exams 09/18/23 14:05 Completed XR chest 1V portable [id number] Routine Exams 09/20/23 07:55 Completed XR chest 1V portable [id number] Routine Exams 09/21/23 07:00 Completed XR chest 1V portable [id number] Stat Exams 09/14/23 00:48 [place] [id number] Routine Ultrasound 09/14/23 10:17 Completed CV. echo limited [id number] Routine Ultrasound 09/15/23 09:30 Completed Pending at discharge Category Date Time Status Sputum Culture and Gram Stain Stat Lab 09/20/23 08:20 Uncollected Radiology Impressions Abdomen/Pelvis CT 09/14/23 10:08 IMPRESSION: Cholelithiasis without signs of acute cholecystitis. Head CT 09/14/23 10:16 IMPRESSION: No acute intracranial hemorrhage or mass effect or obvious new intracranial abnormality compared to 08/12/2023. Venous Duplex 09/14/23 10:17 IMPRESSION: No sonographic evidence of deep venous thrombosis. Chest CTA 09/20/23 08:19 IMPRESSION: 1. Limitations result in suboptimal opacification and heterogeneity of the pulmonary arteries. There is no obvious larger central pulmonary embolism, but a smaller segmental or subsegmental PE in either lung can not be excluded on the basis of this examination. 2. Unchanged prominent central pulmonary arteries suggesting pulmonary artery hypertension. 3. Unchanged mild cardiomegaly. No evidence of right heart strain. 4. Considerable increase in extensive bilateral pulmonary abnormality which may all be atelectasis and pneumonitis, but some of this could be malignancy. Increased occlusion and narrowing of bilateral bronchi. 5. Unchanged tracheomalacia. New mild indentation right tracheal wall associated with soft tissue could be invasion of neoplastic lymphadenopathy. Consider bronchoscopy. 6. Increased large right pleural effusion. Increased small left pleural effusion with continued areas of loculation. Empyema is possible. 7. Increased mediastinal and right pulmonary hilar lymphadenopathy could be reactive or neoplastic. 8. Additional details as above. Chest X-Ray 09/21/23 07:00 IMPRESSION: Increase in the bilateral lower lung zone consolidation/collapse associated bilateral pleural effusions. Laboratory Results WBC 5.56 10^3/uL (3.29-11.43) 09/24/23 04:40 RBC 2.98 10^6/uL (3.85-5.65) L 09/24/23 04:40 Hgb 9.00 g/dL (11.27-16.99) L 09/24/23 04:40 Hct 29.8 % (37-53) L 09/24/23 04:40 MCV 100.0 fl (82-101) 09/24/23 04:40 MCH 30.2 pg (27-33) 09/24/23 04:40 MCHC 30.2 g/dL (30-55) 09/24/23 04:40 RDW 16.4 % (12.1-15.1) H 09/24/23 04:40 Plt Count 177 10^3/cmm (157-399) 09/24/23 04:40 MPV 9.7 fL (7.4-10.4) 09/24/23 04:40 Neut % (Auto) 89.4 % 09/24/23 04:40 Lymph % (Auto) 4.3 % 09/24/23 04:40 [place] % (Auto) 5.9 % 09/24/23 04:40 Eos % (Auto) 0.0 % 09/24/23 04:40 Baso % (Auto) 0.0 % 09/24/23 04:40 Neut # (Auto) 4.97 10^3/uL (1.8-7.7) 09/24/23 04:40 Lymph # (Auto) 0.2 10^3/uL (0.8-4.8) L 09/24/23 04:40 [place] # (Auto) 0.3 10^3/uL (0.2-0.9) 09/24/23 04:40 Eos # (Auto) 0.0 10^3/uL (0.0-0.8) 09/24/23 04:40 Baso # (Auto) 0.0 10^3/uL (0.0-0.1) 09/24/23 04:40 Nucleated RBC % (auto) 0 % 09/24/23 04:40 Nucleated RBCs # 0.0 /100WBC 09/24/23 04:40 ESR 14 mm/hr (0-10) H 09/14/23 00:55 PT 17.70 SECONDS (12.1-14.9) H 09/14/23 02:53 INR 1.40 (0.8-1.2) H 09/14/23 02:53 Specimen Type Arterial 09/20/23 08:28 Sample Site Radial, left 09/20/23 08:28 ABG pH 7.38 (7.35-7.45) 09/20/23 08:28 ABG pCO2 49.1 mmHg (35-45) H 09/20/23 08:28 ABG pO2 52.8 mmHg (80.0-100.0) L 09/20/23 08:28 ABG PO2/FiO2 Ratio 0 09/20/23 08: ABG HCO3 28.8 mmol/L (22-26) H 09/20/23 08:28 ABG O2 Saturation 87.4 09/14/23 02:24 ABG Base Excess 3.1 mmol/L (-2.0-2.0) H 09/20/23 08: Van Test Pos 09/20/23 08: A-a O2 Gradient 6.3 mmHg (5-10) 09/14/23 02:24 Hematocrit 26.8 % (42-52) L 09/20/23 08:28 Hgb O2 Saturation 84.5 % (95-100) L 09/14/23 02:24 Carboxyhemoglobin 2.9 %THgb (0.4-20.1) 09/14/23 02:24 Methemoglobin 0.5 % (0.4-1.5) 09/14/23 02:24 Total Hemoglobin 6.9 g/dL (14-18) L 09/14/23 02:24 Sodium 142.0 mmol/L (131-143) 09/14/23 02:24 Potassium 4.9 mmol/L (3.5-5.0) 09/14/23 02:24 Glucose 80.0 mg/dL (70-115) 09/14/23 02:24 Ionized Calcium 1.1 mmol/L (1.1-1.4) 09/14/23 02:24 O2 Delivery Device Bipap 09/20/23 08:28 O2 Liters/Min 10.0 % 09/14/23 10:13 FiO2 60.0 % 09/20/23 08:28 Sap Plant Maintenance Consultant ID [employer]ro 09/20/23 08:28 Sodium 139 mmol/L (136-145) 09/24/23 04:40 Potassium 4.8 mmol/L (3.5-5.1) 09/24/23 04:40 Chloride 99 mmol/L (98-107) 09/24/23 04:40 Carbon Dioxide 27 mmol/L (22-29) 09/24/23 04:40 Anion Gap 17.8 (5-19) 09/24/23 04:40 BUN 54 mg/dL (8-23) H 09/24/23 04:40 Creatinine 5.1 mg/dL (0.7-1.2) H 09/24/23 04:40 GFR Calculation 11.6 mL/min (90-130) L 09/24/23 04:40 Glucose 261 mg/dL (65-115) H 09/24/23 04:40 POC Glucose 159 mg/dL (70-110) H 09/25/23 10:34 Calculated Osmolality 312 mOsm/kg (285-295) H 09/24/23 04:40 Lactic Acid 1.6 mmol/L (0.5-2.2) 09/14/23 00:55 Lactate 1.2 mmol/L (0.5-2.2) 09/15/23 07:05 Calcium 9.0 mg/dL (8.5-10.5) 09/24/23 04:40 Phosphorus 6.5 mg/dL (2.5-4.5) H 09/14/23 00:55 Magnesium 2.0 mg/dL (1.7-2.3) 09/15/23 07:05 Iron 45 ug/dL (59-158) L 09/14/23 00:55 Ferritin 657 ng/mL (30-400) H 09/14/23 00:55 Total Bilirubin 0.4 mg/dL (0.15-1.2) 09/15/23 07:05 AST 6 U/L (0-40) 09/15/23 07:05 ALT < 5 U/L (0-41) 09/15/23 07:05 Alkaline Phosphatase 156 U/L (40-130) H 09/15/23 07:05 Ammonia 33 umol/L (16-60) 09/14/23 10:46 Creatine Kinase 38 U/L (39-308) L 09/15/23 07:05 Troponin T Baseline 239 ng/L (0-15) H* 09/20/23 09:59 Troponin T 120 Minute 223.2 ng/L (0-15) H 09/20/23 12:07 Delta Troponin T -15.8 ABS# (0-10) L 09/20/23 12:07 Troponin T Hi Sens 6Hr 237.0 ng/L (0-15) H 09/20/23 15:18 Troponin T Hi Sens 6Hr Delta -2.0 ng/L (0-12) L 09/20/23 15:18 C-Reactive Protein 63.3 mg/L (0.0-4.9) H 09/21/23 03:25 NT-Pro-B Natriuret Pep 85226 pg/mL (0-125) H 09/21/23 03:25 Total Protein 6.8 g/dL (6.6-8.7) 09/15/23 07:05 Albumin 2.8 g/dL (3.5-5.2) L 09/15/23 07:05 Globulin 4.0 g/dL (1.3-4.6) 09/15/23 07:05 Procalcitonin 0.52 ng/mL (0-0.5) H 09/20/23 06:27 Urine Color Brown (Yellow) A 09/14/23 04:32 Urine Appearance Turbid (CLEAR) A 09/14/23 04:32 Urine pH 5 (5-7) 09/14/23 04:32 Ur Specific [place] 1.020 (1.005-1.030) 09/14/23 04:32 Urine Protein 1+ (Negative) H 09/14/23 04:32 Urine Glucose (UA) Norm (Normal) 09/14/23 04:32 Urine Ketones Negative (Negative) 09/14/23 04:32 Urine Blood 3+ (Negative) H 09/14/23 04:32 Urine Nitrate Negative (Negative) 09/14/23 04:32 Urine Bilirubin Neg (Negative) 09/14/23 04:32 Urine Urobilinogen Neg mg/dL (Negative) 09/14/23 04:32 Ur Leukocyte Esterase 2+ (Negative) H 09/14/23 04:32 Urine RBC 25-40 /hpf (0-2) H 09/14/23 04:32 Urine WBC 55-80 /hpf (0-5) H 09/14/23 04:32 Ur Squamous Epith Cells 0-4 /hpf (0-5) H 09/14/23 04:32 Amorphous Sediment Trace /hpf 09/14/23 04:32 Urine Bacteria 1+ /hpf (NONE) H 09/14/23 04:32 Coarse Granular Casts 5-10 /lpf H 09/14/23 04:32 Urine Mucus Trace /hpf 09/14/23 04:32 Urine Yeast Trace /hpf 09/14/23 04:32 Random Vancomycin 17.1 ug/mL (20.0-40.0) L 09/19/23 04:48 Hep Bs Antigen Non-reactive (Nonreactive) 09/14/23 00:55 Hep Bs Antibody 10.2 (11.5-1000) L 09/14/23 00:55 Influenza Type A Ag negative (Negative) 09/14/23 03:52 Influenza Type B Ag negative (Negative) 09/14/23 03:52 SARS-CoV-2 Ag (Rapid) negative (Negative) 09/25/23 10:37 Blood Type A Positive 09/14/23 02:53 Rho(D) Type Rh positive 09/14/23 02:53 Antibody Screen Negative 09/14/23 02:53 Crossmatch See Detail 09/14/23 02:53 Vitals Last Vital Signs Temp 97.6 F 09/25/23 07:34 Pulse 68 09/25/23 08:00 Resp 15 09/25/23 08:00 BP 135/63 09/25/23 07:34 Pulse Ox 93 09/25/23 08:00 O2 Del Method BiPAP 09/25/23 08:00 O2 Flow Rate 5 09/25/23 08:00 FiO2 45 09/25/23 08:00 Discharge Plan Discharge Patient Disposition: Xfer [facility] Condition: Stable Prescriptions: New vancomycin 125 mg Capsule 125 mg PO TID Qty: 60 0RF Continued clopidogrel 75 mg Tablet 75 mg PO DAILY amlodipine 10 mg tablet 10 mg PO DAILY bumetanide 1 mg tablet See Rx Instructions .ROUTE .COMPLEX Rx Instructions: TAKE 1 TABLET BY MOUTH ONCE DAILY NEEDED RESUME ONCE A DAY WHEN SWELLING AND DAILY WEIGHTS INCREASE CALL [facility] OFFICE WHEN YOU DO RESUME IT calcium acetate 667 mg tablet 667 mg PO TID Ventolin HFA 90 mcg/actuation Hfa Aerosol Inhaler 2 puff INHALATION Q6H PRN (Reason: Shortness Of Breath) Saccharomyces boulardii 250 mg Capsule 250 mg PO BID Renvela 800 mg Tablet 800 mg PO TID Rx Instructions: must administer with a meal/food Tresiba FlexTouch U-100 100 unit/mL (3 mL) Insulin Pen 15 unit SUBCUT DAILY gabapentin 100 mg capsule 100 mg PO TID albuterol sulfate 2.5 mg /3 mL (0.083 %) solution for nebulization 2.5 mg inhalation Q4H PRN (Reason: Shortness Of Breath) amiodarone 200 mg tablet 200 mg PO QAM silver sulfadiazine [SSD] 1 % cream 1 applic TOPICAL DAILY acetaminophen 325 mg Tablet 650 mg PO Q6H PRN (Reason: Pain) hydrocodone-acetaminophen 5-325 mg Tablet 1 tab PO Q6H PRN (Reason: Pain) bisacodyl 10 mg Suppository 10 mg CA DAILY PRN (Reason: Constipation) metoprolol tartrate 50 mg tablet See Rx Instructions .ROUTE .COMPLEX Rx Instructions: TAKE 1 TABLET BY MOUTH DAILY ON FRIDAY, FRIDAY, FRIDAY AND FRIDAY. nystatin 100,000 unit/gram Powder 1 applic TOPICAL DAILY insulin aspart U-100 [Novolog FlexPen U-100 Insulin] 100 unit/mL (3 mL) insulin pen See Rx Instructions .ROUTE .COMPLEX Rx Instructions: INJECT PER SLIDING SCALE 3 TIMES DAILY: BS 100-119=2 UNITS, 120-160=4 UNITS, 161-200=6 UNITS, 201-240=8 UNITS, 241-280=11 UNITS, 281-320=15 UNIT. Discontinued atorvastatin 40 mg Tablet 40 mg PO DAILY Eliquis 5 mg tablet 5 mg PO BID Discharge Orders: Discharge Order (Routine); Ordered 09/25/23 Ordered By: Erick Rodriguez Other Ambulatory Orders: DME: BIPAP (Order) Location: None Selected Ordered By: Erick Rodriguez Referrals: [facility] [Outside] Misty Ibrahim [Primary Care Provider] - Discharge Diet: As Directed Patient Instructions: Dialysis Diet (DC), Altered Mental Status (ED), Hemodialysis (DC), Opioid Safety Activity Restrictions/Additional Instructions: level 4 dyspagia diet thick pureed diet Discharge Attestations Time Spent in Discharge Care*: greater than 30 min Quality Metrics Clinical Quality Measures [ No reported AMI, CVA or VTE this stay] Coding Level of Care Code Acute Code for Chg Fwd Diagnoses ESRD (end stage renal disease) on dialysis N18.6; Z99.2
--- NOTE | 2023-09-25 12:04 | P.PN_ITS ---
Subjective 2 Subjective: Morning patient was saturating well on 5 L nasal cannula however later in the day he became hypoxic and required 15 L, patient orders were canceled Patient is getting dependent on BiPAP Vitals/I&O/Wt Last Vital Signs Temp 97.6 F 09/25/23 07:34 Pulse 76 09/25/23 11:38 Resp 18 09/25/23 11:38 BP 126/56 09/25/23 11:38 Pulse Ox 86 L 09/25/23 11:38 O2 Del Method Nasal Cannula 09/25/23 11:38 O2 Flow Rate 10 09/25/23 11:38 FiO2 45 09/25/23 08:00 09/24/23 09/25/23 09/25/23 22:59 06:59 14:59 Intake Total 550 / 550 100 / 650 120 / 120 Output Total 3028 / 3028 100 / 3128 Balance -2478 / -2478 0 / -2478 120 / 120 Weight last 48 hrs Weight 115.411 kg Weight 116.165 kg Weight 119.918 kg Physical Exam 2 Narrative: Sign of fluid load present Getting dependent on BiPAP Oxygen saturation changing Patient is drowsy however awake and alert PICC line in place Lower extremity edema with lymphedema Abdomen distended nontender Urinary Catheter Management: Fuentes: Cath Placed During This Visit: yes Reason for Continuing Indwelling Catheter: Acute Urinary Retention or Obstruction Urinary Catheter Date of Insertion: 09/15/23 Urinary Catheter Time of Insertion: 05:24 Data 09/24/23 04:40 09/24/23 04:40 Micro: Microbiology 09/20/23 09:52 Blood Culture - Final Blood NO GROWTH AFTER 5 DAYS 09/20/23 09:59 Blood Culture - Final Blood NO GROWTH AFTER 5 DAYS A&P Assessment and plan (1) CHF exacerbation: (2) Pulmonary arterial hypertension: (3) Endocarditis: Qualifiers: Chronicity: unspecified Endocarditis type: infective Infective endocarditis organism: bacterial Qualified Code(s): I33.0 - Acute and subacute infective endocarditis (4) Afib: (5) DM2 (diabetes mellitus, type 2): (6) ESRD (end stage renal disease) on dialysis: (7) Chronic anemia: (8) Enterococcus faecalis infection: (9) Sepsis: (10) History of Clostridioides difficile colitis: (11) Pressure ulcer of right heel, unstageable: (12) Decubitus ulcer of heel, unstageable: (13) Altered mental status: Qualifiers: Altered mental status type: delirium Qualified Code(s): R41.0 - Disorientation, unspecified (14) Acute encephalopathy: (15) Acute hypoxic respiratory failure: (16) Aspiration pneumonia: Plan I will cancel my discharge orders Patient is requiring 15 L again He is getting BiPAP dependent I do think we will be able to discharge him today or tomorrow if he gets hypoxic easily I will continue his diet I will discontinue his antibiotics which she was taking for Enterococcus endocarditis He has finished 6 weeks of antibiotics He may resume p.o. vancomycin as triple regimen for C. difficile colitis Continue dysphagia level for this diet DVT prophylaxis heparin Eliquis discontinued Status post 1 unit PRBC Anemia stable Attestations 2 Medical Necessity Statement*: Continue medical hospitalization Diagnoses CHF exacerbation I50.9 Pulmonary arterial hypertension I27.21 Endocarditis I33.0 Chronicity: unspecified Endocarditis type: infective Infective endocarditis organism: bacterial Afib I48.91 DM2 (diabetes mellitus, type 2) E11.9 ESRD (end stage renal disease) on dialysis N18.6; Z99.2 Chronic anemia D64.9 Enterococcus faecalis infection A49.8 Sepsis A41.9 History of Clostridioides difficile colitis Z86.19 Pressure ulcer of right heel, unstageable L89.610 Decubitus ulcer of heel, unstageable L89.600 Altered mental status R41.0 Altered mental status type: delirium Acute encephalopathy G93.40 Acute hypoxic respiratory failure J96.01 Aspiration pneumonia J69.0
[2023-09-25 16:27] LABS: Glucose Point of Care 146 mg/dL (70-110)
[2023-09-25 21:05] LABS: Glucose Point of Care 196 mg/dL (70-110)
[2023-09-26] VITALS (14 sets, daily range): BP systolic 112–142; BP diastolic 49–70; PULSE 68–104; RESP 16–20; TEMP 36.6–38.1; O2SAT 92–99
[2023-09-26] MEDS: ipratropium-albuterol 3 mL Neb INHALATION ×4 (01:41→20:35)
[2023-09-26 06:34] LABS: Glucose Point of Care 187 mg/dL (70-110)
[2023-09-26] MEDS: amiodarone 200 mg Tablet PO (06:41)
[2023-09-26] MEDS: heparin 5,000 unit/mL INJ 1 mL 5000 UNIT SUBCUT ×2 (06:41→18:39)
[2023-09-26] MEDS: pantoprazole 40 mg SDV IVP ×2 (08:33→20:20)
[2023-09-26] MEDS: sevelamer 800 mg Tablet PO ×3 (08:33→20:20)
[2023-09-26] MEDS: vancomycin 125 mg Capsule PO ×3 (08:33→20:21)
[2023-09-26] MEDS: gabapentin 100 mg Capsule PO ×3 (08:33→20:21)
[2023-09-26] MEDS: insulin lispro 100 unit/1 mL SUBCUT ×2 (08:33→17:10)
[2023-09-26] MEDS: OLANZapine 5 mg TABLET 2.5 MG PO ×2 (08:33→20:20)
--- NOTE | 2023-09-26 09:06 | P.PN_ITS ---
Subjective 2 Subjective: on 7l O2 NC Medications: Reviewed: Yes Vitals/I&O/Wt Last Vital Signs Temp 99.9 F H 09/26/23 07:27 Pulse 100 09/26/23 08:23 Resp 20 H 09/26/23 08:23 BP 142/64 09/26/23 07:27 Pulse Ox 92 09/26/23 08:23 O2 Del Method High Flow Nasal Cannula 09/26/23 08:23 O2 Flow Rate 8 09/26/23 08:23 FiO2 45 09/26/23 01:45 09/25/23 09/26/23 09/26/23 22:59 06:59 14:59 Intake Total 120 / 240 Output Total 50 / 50 Balance 120 / 240 -50 / 190 Weight last 48 hrs Weight 115.836 kg Weight 115.411 kg Weight 116.165 kg Physical Exam 2 Narrative: , no distress s2s2 RRR per report Lungs clear per report + edema Urinary Catheter Management: Fuentes: Cath Placed During This Visit: yes Reason for Continuing Indwelling Catheter: Other Urinary Catheter Date of Insertion: 09/15/23 Urinary Catheter Time of Insertion: 05:24 Data 09/24/23 04:40 09/24/23 04:40 Micro: Microbiology 09/20/23 09:52 Blood Culture - Final Blood NO GROWTH AFTER 5 DAYS 09/20/23 09:59 Blood Culture - Final Blood NO GROWTH AFTER 5 DAYS A&P Assessment and plan (1) ESRD (end stage renal disease) on dialysis: 1. End-stage renal disease: On MWF schedule for dialysis, hd today Ultrafiltration as tolerated, patient currently off BiPAP 2. Altered mental status: Likely multifactorial, improved 3. Acute on chronic respiratory failure, currently off BiPAP, HD as above and ultrafiltration as tolerated 4. Anemia, plan for transfusion 5. Recent infective endocarditis Attestations 2 Medical Necessity Statement*: per lois Coding Level of Care Code Acute Code for Ch[facility] Fwd Diagnoses ESRD (end stage renal disease) on dialysis N18.6; Z99.2
--- NOTE | 2023-09-26 11:26 | P.PN_ITS ---
Subjective 2 Subjective: I tried to call his , his numbers going on voicemail, twice 3 times Patient is on 8 L nasal cannula Getting BiPAP dependent Patient is not taking deep breaths because of distended abdomen He is due for dialysis today I would like to discuss palliative care with the family patient is drowsy not able to carry any Conversation as of now Vitals/I&O/Wt Last Vital Signs Temp 99.9 F H 09/26/23 07:27 Pulse 100 09/26/23 08:23 Resp 20 H 09/26/23 08:23 BP 142/64 09/26/23 07:27 Pulse Ox 92 09/26/23 08:23 O2 Del Method High Flow Nasal Cannula 09/26/23 08:23 O2 Flow Rate 8 09/26/23 08:23 FiO2 45 09/26/23 01:45 09/25/23 09/26/23 09/26/23 22:59 06:59 14:59 Intake Total 120 / 240 Output Total 50 / 50 Balance 120 / 240 -50 / 190 Weight last 48 hrs Weight 115.836 kg Weight 115.411 kg Weight 116.165 kg Physical Exam 2 Narrative: Patient is awake but drowsy GCS 15 Pleasant cooperative Nonfocal neuroexam I do not see a significant change in volume status however he has consistent hypervolemia Currently on 8 L nasal cannula Abdomen distended nontender Lower extremity venous stasis dermatitis with lymphedema has not changed Urinary Catheter Management: Fuentes: Cath Placed During This Visit: yes Reason for Continuing Indwelling Catheter: Other Urinary Catheter Date of Insertion: 09/15/23 Urinary Catheter Time of Insertion: 05:24 Data 09/24/23 04:40 09/24/23 04:40 Micro: Microbiology 09/20/23 09:52 Blood Culture - Final Blood NO GROWTH AFTER 5 DAYS 09/20/23 09:59 Blood Culture - Final Blood NO GROWTH AFTER 5 DAYS A&P Assessment and plan (1) Hypotension: (2) CHF exacerbation: (3) Pulmonary arterial hypertension: (4) Endocarditis: Qualifiers: Chronicity: unspecified Endocarditis type: infective Infective endocarditis organism: bacterial Qualified Code(s): I33.0 - Acute and subacute infective endocarditis (5) NSTEMI (non-ST elevated myocardial infarction): (6) Afib: (7) DM2 (diabetes mellitus, type 2): (8) Hyponatremia: (9) ESRD (end stage renal disease) on dialysis: (10) Chronic anemia: (11) Enterococcus faecalis infection: (12) History of Clostridioides difficile colitis: (13) Pressure ulcer of right heel, unstageable: (14) Decubitus ulcer of heel, unstageable: (15) Altered mental status: Qualifiers: Altered mental status type: delirium Qualified Code(s): R41.0 - Disorientation, unspecified (16) Acute encephalopathy: (17) Acute hypoxic respiratory failure: (18) Pulmonary edema: (19) Acute respiratory distress syndrome: Plan I would like to discuss palliative care with the family, not able to get in contact with his Patient is getting drowsy He has not made good progress since Friday however we were able to wean his oxygen down to 8 L Patient is not taking deep breaths because of distended abdomen hyperventilating I am requesting another ABG He is DNR/DNI Considering his poor functional status, poor p.o. intake and his desire to stop dialysis I would like to discuss goals of care 1 more time Patient is getting drowsy Currently is on dysphagia diet I am continuing amiodarone along DVT prophylaxis Eliquis has been discontinued because of his bleeding episode requiring 1 unit PRBC Attestations 2 Medical Necessity Statement*: Due for dialysis today Diagnoses Hypotension I95.9 CHF exacerbation I50.9 Pulmonary arterial hypertension I27.21 Endocarditis I33.0 Chronicity: unspecified Endocarditis type: infective Infective endocarditis organism: bacterial NSTEMI (non-ST elevated myocardial infarction) I21.4 Afib I48.91 DM2 (diabetes mellitus, type 2) E11.9 Hyponatremia E87.1 ESRD (end stage renal disease) on dialysis N18.6; Z99.2 Chronic anemia D64.9 Enterococcus faecalis infection A49.8 History of Clostridioides difficile colitis Z86.19 Pressure ulcer of right heel, unstageable L89.610 Decubitus ulcer of heel, unstageable L89.600 Altered mental status R41.0 Altered mental status type: delirium Acute encephalopathy G93.40 Acute hypoxic respiratory failure J96.01 Pulmonary edema J81.1 Acute respiratory distress syndrome J80
[2023-09-26 12:08] LABS: Glucose Point of Care 82 mg/dL (70-110)
[2023-09-26] MEDS: heparin, porcine 1,000 unit/mL INJ 10 mL 10000 UNIT INTRACATH (15:08)
[2023-09-26] MEDS: heparin, porcine 1,000 unit/mL INJ 10 mL 10000 UNIT HE (15:08)
[2023-09-26 15:16] LABS: ABG PCO2 44.5 mmHg (35-45); ABG PH Result 7.44 (7.35-7.45); Base Excess ABG 5.5 mmol/L (-2.0-2.0); Blood Gas Operator Identificat AMH; Blood Gas Sample Site Brachial, left; Blood Gas Sample Type Arterial; HCO3 ABG 30.3 mmol/L (22-26); Oxygen Device NC; PO2 ABG 47.6 mmHg (80.0-100.0)
[2023-09-26 17:22] LABS: Glucose Point of Care 180 mg/dL (70-110)
[2023-09-26] MEDS: acetaminophen 325 mg Tablet 650 MG PO (17:31)
[2023-09-26] MEDS: metoprolol tartrate 50 mg Tablet PO (20:21)
[2023-09-26 21:13] LABS: Glucose Point of Care 140 mg/dL (70-110)
[2023-09-27] VITALS (13 sets, daily range): BP systolic 105–126; BP diastolic 46–63; PULSE 4–90; RESP 16–18; TEMP 36.7–38.1; O2SAT 90–95
[2023-09-27] MEDS: acetaminophen 325 mg Tablet 650 MG PO (01:01)
--- NOTE | 2023-09-27 01:37 | PC.NURSE ---
Addendum entered by Marla Vasquez RN 09/27/23 05:45: Patient has not c/o anymore pain. Addendum entered by Marla Vasquez RN 09/27/23 02:11: Correction: Dr. Correa notified. Dr. Correa stated It looks like he is having mental status changes during the day. If it persists we can do hydrocodone 5 mg once. Original Note: Dr. Montalvo notified of patient c/o pain to right leg with no relief from Tylenol.
[2023-09-27] MEDS: ipratropium-albuterol 3 mL Neb INHALATION ×4 (01:39→21:04)
[2023-09-27 05:25] LABS: Basophils % 0.2 %; Eosinophils # 0.2 10^3/uL (0.0-0.8); Eosinophils % 2.2 %; Hematocrit 29.2 % (37-53); Lymphocytes # 0.4 10^3/uL (0.8-4.8); Lymphocytes % 3.9 %; Mean Corpuscular HGB Conc 30.1 g/dL (30-55); Mean Corpuscular Hemoglobin 29.7 pg (27-33); Mean Corpuscular Volume 98.6 fl (82-101); Mean Platelet Volume 10.6 fL (7.4-10.4); Monocytes # 0.5 10^3/uL (0.2-0.9); Monocytes % 5.7 %; Neutrophils # 8.06 10^3/uL (1.8-7.7); Neutrophils % 87.6 %; Nucleated Red Blood Cells % 0 %; Platelet Count 141 10^3/cmm (157-399); Red Blood Count 2.96 10^6/uL (3.85-5.65); Red Cell Distribution Width 17.1 % (12.1-15.1)
[2023-09-27 05:45] LABS: Anion Gap 14.5 (5-19); Blood Urea Nitrogen 37 mg/dL (8-23); Calcium 7.8 mg/dL (8.5-10.5); Carbon Dioxide 28 mmol/L (22-29); Chloride 101 mmol/L (98-107); Creatinine Clr Calc Pharmacy 23.5202; Glomerular Filtration Rate 14.2 mL/min (90-130); Glucose 136 mg/dL (65-115); Osmolality Calculated 299 mOsm/kg (285-295); Potassium 4.5 mmol/L (3.5-5.1); Sodium 139 mmol/L (136-145)
[2023-09-27 06:47] LABS: Glucose Point of Care 134 mg/dL (70-110)
--- NOTE | 2023-09-27 07:08 | P.PN_ITS ---
Subjective 2 Subjective: Patient has multiple etiologies for his hypoxia, significant lymphadenopathy indentation on the bronchi, tracheomalacia, hypoventilation, morbid obesity, persistent hypervolemia Is getting BiPAP dependent, requires 8 L of nasal cannula Also has pleural effusion Not a good candidate for EGD for positive FOBT Anticoagulation discontinued after he was given blood transfusion Would like to discuss palliative care with the patient once is available Vitals/I&O/Wt Last Vital Signs Temp 98.6 F 09/27/23 04:00 Pulse 72 09/27/23 05:24 Resp 18 09/27/23 04:00 BP 106/50 09/27/23 04:00 Pulse Ox 91 09/27/23 04:00 O2 Del Method Nasal Cannula 09/27/23 04:00 O2 Flow Rate 6 09/27/23 01:42 FiO2 45 09/27/23 00:00 09/26/23 09/27/23 09/27/23 22:59 06:59 14:59 Intake Total 740 / 740 Output Total 4025 / 4025 150 / 4175 Balance -3285 / -3285 -150 / -3435 Weight last 48 hrs Weight 111.158 kg Weight 111.947 kg Weight 115.836 kg Physical Exam 2 Narrative: Sign of fluid overload Drowsy and lethargic Persistent hypoxia BiPAP dependent Currently on 8 L nasal cannula No new focal deficit Chronic skin scarring, lymphedema and venous stasis dermatitis Also has pressure ulcers since admission Able to follow commands S1, S2 variable, Urinary Catheter Management: Fuentes: Cath Placed During This Visit: yes Reason for Continuing Indwelling Catheter: Accurate Measurement of Urinary Output in Critically Ill Patients Urinary Catheter Date of Insertion: 09/15/23 Urinary Catheter Time of Insertion: 05:24 Data 09/27/23 04:47 09/27/23 04:47 A&P Assessment and plan (1) CHF exacerbation: (2) Pulmonary arterial hypertension: (3) Endocarditis: Qualifiers: Chronicity: unspecified Endocarditis type: infective Infective endocarditis organism: bacterial Qualified Code(s): I33.0 - Acute and subacute infective endocarditis (4) Afib: (5) DM2 (diabetes mellitus, type 2): (6) ESRD (end stage renal disease) on dialysis: (7) Anemia: (8) Sepsis: (9) Enterococcus faecalis infection: (10) Septic shock: (11) Pressure ulcer of right heel, unstageable: (12) Acute encephalopathy: (13) Aspiration pneumonia: (14) Pulmonary edema: (15) Acute hypoxic respiratory failure: (16) Bilateral pleural effusion: Plan Persistent hypoxia Getting BiPAP dependent And then requires 8 L of oxygen via nasal cannula He still states hypoxic hypoxia etiology is multifactorial such as hypoventilation, morbid obesity, fluid overload, significant lymphadenopathy causing bronchial indentation, tracheomalacia, bedbound state, pleural effusion, Lack of physical activity Thromboembolic phenomenon not completely ruled out Not a good candidate for anticoagulation P.o. intake is getting compromised as well I would like to discuss palliative care with the patient once is at the bedside I was not able to get a hold of the when I called her on Friday End-stage renal disease Friday, please note patient is going for dialysis, he was in refusal, patient is getting frustrated from management of his comorbid conditions, no suicidal thoughts, will add antidepressant Enterococcus endocarditis: He has finished 6 weeks of IV antibiotics, I have discontinued his antibiotics on Friday C. difficile colitis post taper therapy which needs to be resumed until 11/02 Continue physical therapy out of bed to a recliner DNR/DNI Low sodium consistent carb diet Guarded prognosis Attestations 2 Medical Necessity Statement*: Patient will stay in the hospital until next week Coding Level of Care Code Acute Code for [facility] Fwd Diagnoses CHF exacerbation I50.9 Pulmonary arterial hypertension I27.21 Endocarditis I33.0 Chronicity: unspecified Endocarditis type: infective Infective endocarditis organism: bacterial Afib I48.91 DM2 (diabetes mellitus, type 2) E11.9 ESRD (end stage renal disease) on dialysis N18.6; Z99.2 Anemia D64.9 Sepsis A41.9 Enterococcus faecalis infection A49.8 Septic shock A41.9; R65.21 Pressure ulcer of right heel, unstageable L89.610 Acute encephalopathy G93.40 Aspiration pneumonia J69.0 Pulmonary edema J81.1 Acute hypoxic respiratory failure J96.01 Bilateral pleural effusion J90
--- NOTE | 2023-09-27 07:16 | PC.NURSE ---
Nose has skin breakdown from Bipap. Attempt to place optifoam, however it would not stick even with use of skin prep.
--- NOTE | 2023-09-27 07:39 | P.PN_ITS ---
Subjective 2 Subjective: s/p HD yesterday Medications: Reviewed: Yes Vitals/I&O/Wt Last Vital Signs Temp 98.6 F 09/27/23 04:00 Pulse 72 09/27/23 05:24 Resp 18 09/27/23 04:00 BP 106/50 09/27/23 04:00 Pulse Ox 91 09/27/23 04:00 O2 Del Method Nasal Cannula 09/27/23 04:00 O2 Flow Rate 6 09/27/23 01:42 FiO2 45 09/27/23 00:00 09/26/23 09/27/23 09/27/23 22:59 06:59 14:59 Intake Total 740 / 740 Output Total 4025 / 4025 150 / 4175 Balance -3285 / -3285 -150 / -3435 Weight last 48 hrs Weight 111.158 kg Weight 111.947 kg Weight 115.836 kg Physical Exam 2 Narrative: , no distress s2s2 RRR per report Lungs clear per report + edema Urinary Catheter Management: Fuentes: Cath Placed During This Visit: yes Reason for Continuing Indwelling Catheter: Accurate Measurement of Urinary Output in Critically Ill Patients Urinary Catheter Date of Insertion: 09/15/23 Urinary Catheter Time of Insertion: 05:24 Data 09/28/23 05:50 09/28/23 05:50 A&P Assessment and plan (1) ESRD (end stage renal disease) on dialysis: 1. End-stage renal disease: On MWF schedule for dialysis, hd yesterday Ultrafiltration as tolerated, patient currently off BiPAP 2. Altered mental status: Likely multifactorial, improved 3. Acute on chronic respiratory failure, currently off BiPAP, HD as above and ultrafiltration as tolerated 4. Anemia, plan for transfusion 5. Recent infective endocarditis Attestations 2 Medical Necessity Statement*: per lois Coding Level of Care Code Acute Code for Chg Fwd Diagnoses ESRD (end stage renal disease) on dialysis N18.6; Z99.2
[2023-09-27] MEDS: OLANZapine 5 mg TABLET 2.5 MG PO ×2 (09:12→20:54)
[2023-09-27] MEDS: sevelamer 800 mg Tablet PO ×3 (09:12→20:54)
[2023-09-27] MEDS: vancomycin 125 mg Capsule PO ×3 (09:12→20:54)
[2023-09-27] MEDS: heparin 5,000 unit/mL INJ 1 mL 5000 UNIT SUBCUT ×2 (09:13→20:54)
[2023-09-27] MEDS: amiodarone 200 mg Tablet PO (09:13)
[2023-09-27] MEDS: gabapentin 100 mg Capsule PO ×3 (09:13→20:54)
[2023-09-27] MEDS: pantoprazole 40 mg SDV IVP ×2 (09:31→20:53)
[2023-09-27 10:56] LABS: Glucose Point of Care 176 mg/dL (70-110)
[2023-09-27] MEDS: insulin lispro 100 unit/1 mL SUBCUT ×2 (12:50→17:08)
[2023-09-27 16:40] LABS: Glucose Point of Care 151 mg/dL (70-110)
[2023-09-27 20:27] LABS: Glucose Point of Care 145 mg/dL (70-110)
[2023-09-28] VITALS (12 sets, daily range): BP systolic 115–145; BP diastolic 43–67; PULSE 80–107; RESP 18–20; TEMP 36.5–37.1; O2SAT 92–98
[2023-09-28] MEDS: ipratropium-albuterol 3 mL Neb INHALATION ×3 (02:29→19:32)
[2023-09-28 06:31] LABS: Glucose Point of Care 145 mg/dL (70-110)
[2023-09-28 06:36] LABS: Basophils % 0.1 %; Eosinophils # 0.3 10^3/uL (0.0-0.8); Eosinophils % 3.4 %; Hematocrit 28.2 % (37-53); Lymphocytes # 0.4 10^3/uL (0.8-4.8); Lymphocytes % 5.5 %; Mean Corpuscular HGB Conc 29.8 g/dL (30-55); Mean Corpuscular Hemoglobin 29.3 pg (27-33); Mean Corpuscular Volume 98.3 fl (82-101); Mean Platelet Volume 10.8 fL (7.4-10.4); Monocytes # 0.7 10^3/uL (0.2-0.9); Monocytes % 8.8 %; Neutrophils # 6.54 10^3/uL (1.8-7.7); Neutrophils % 81.7 %; Nucleated Red Blood Cells % 0 %; Platelet Count 149 10^3/cmm (157-399); Red Blood Count 2.87 10^6/uL (3.85-5.65); Red Cell Distribution Width 16.8 % (12.1-15.1)
--- NOTE | 2023-09-28 06:47 | P.DS_ITS ---
Discharge Providers Date of Admission: 09/14/23 03:46 Date of Discharge: September 28, 2023 Attending Provider at Admission: Jen Albright MD Attending Provider at Discharge: Erick Rodriguez MD Primary Care Provider: Misty Ibrahim Diagnoses at Discharge Discharge Diagnosis (1) ESRD (end stage renal disease) on dialysis: Status: Acute Reason for Visit Reason for Visit: [facility] Hospital Course Hospital Course 62-year-old male with multiple comorbid conditions, extrarenal disease Friday. Showing up for dialysis, has history of Enterococcus bacteremia finished 6 weeks of antibiotics during this hospitalization, he was transferred to [facility] in July, PICC line will be removed before his discharge from the hospital, patient suffered from respiratory failure related to fluid overload pneumonia he had aspiration pneumonia as well speech therapist recommended dysphagia diet level 4, patient's hypoxia respiratory status improved with use of BiPAP, he is DNR/DNI he was requiring more oxygen on daily basis however we were able to wean him down to 6 to 7 L with dialysis and diuresis. He required BiPAP overnight and 6 to 8 L of oxygen in the daytime. Patient finished ampicillin and Rocephin treatment for endocarditis and he was kept on C. difficile taper regimen of p.o. vancomycin. Physical Exam Urinary Catheter Management: Fuentes: Cath Placed During This Visit: yes Reason for Continuing Indwelling Catheter: Other Urinary Catheter Date of Insertion: 09/15/23 Urinary Catheter Time of Insertion: 05:24 Discharge Data Studies Completed and Pending Completed Studies During Hospitalization Category Date Time Status CT abdomen pelvis wo con [id number] Routine Cat Scan 09/14/23 10:[address] angio chest PE protcl [id number] Stat Cat Scan 09/14/23 10:[address] angio chest PE protcl [id number] Stat Cat Scan 09/20/23 08:[address] head wo con* [id number] Routine Cat Scan 09/14/23 10:16 Completed XR chest 1V portable [id number] Routine Exams 09/15/23 07:00 Completed XR chest 1V portable [id number] Routine Exams 09/18/23 14:05 Completed XR chest 1V portable [id number] Routine Exams 09/20/23 07:55 Completed XR chest 1V portable [id number] Routine Exams 09/21/23 07:00 Completed XR chest 1V portable [id number] Stat Exams 09/14/23 00:48 [place] [id number] Routine Ultrasound 09/14/23 10:17 Completed CV. echo limited [id number] Routine Ultrasound 09/15/23 09:30 Completed Pending at discharge Category Date Time Status Basic Metabolic Panel AM LABS Lab 09/28/23 05:50 Received Sputum Culture and Gram Stain Stat Lab 09/20/23 08:20 Uncollected Radiology Impressions Abdomen/Pelvis CT 09/14/23 10:08 IMPRESSION: Cholelithiasis without signs of acute cholecystitis. Head CT 09/14/23 10:16 IMPRESSION: No acute intracranial hemorrhage or mass effect or obvious new intracranial abnormality compared to 08/12/2023. Venous Duplex 09/14/23 10:17 IMPRESSION: No sonographic evidence of deep venous thrombosis. Chest CTA 09/20/23 08:19 IMPRESSION: 1. Limitations result in suboptimal opacification and heterogeneity of the pulmonary arteries. There is no obvious larger central pulmonary embolism, but a smaller segmental or subsegmental PE in either lung can not be excluded on the basis of this examination. 2. Unchanged prominent central pulmonary arteries suggesting pulmonary artery hypertension. 3. Unchanged mild cardiomegaly. No evidence of right heart strain. 4. Considerable increase in extensive bilateral pulmonary abnormality which may all be atelectasis and pneumonitis, but some of this could be malignancy. Increased occlusion and narrowing of bilateral bronchi. 5. Unchanged tracheomalacia. New mild indentation right tracheal wall associated with soft tissue could be invasion of neoplastic lymphadenopathy. Consider bronchoscopy. 6. Increased large right pleural effusion. Increased small left pleural effusion with continued areas of loculation. Empyema is possible. 7. Increased mediastinal and right pulmonary hilar lymphadenopathy could be reactive or neoplastic. 8. Additional details as above. Chest X-Ray 09/21/23 07:00 IMPRESSION: Increase in the bilateral lower lung zone consolidation/collapse associated bilateral pleural effusions. Laboratory Results WBC 8.00 10^3/uL (3.29-11.43) 09/28/23 05:50 RBC 2.87 10^6/uL (3.85-5.65) L 09/28/23 05:50 Hgb 8.40 g/dL (11.27-16.99) L 09/28/23 05:50 Hct 28.2 % (37-53) L 09/28/23 05:50 MCV 98.3 fl (82-101) 09/28/23 05:50 MCH 29.3 pg (27-33) 09/28/23 05:50 MCHC 29.8 g/dL (30-55) L 09/28/23 05:50 RDW 16.8 % (12.1-15.1) H 09/28/23 05:50 Plt Count 149 10^3/cmm (157-399) L 09/28/23 05:50 MPV 10.8 fL (7.4-10.4) H 09/28/23 05:50 Neut % (Auto) 81.7 % 09/28/23 05:50 Lymph % (Auto) 5.5 % 09/28/23 05:50 [place] % (Auto) 8.8 % 09/28/23 05:50 Eos % (Auto) 3.4 % 09/28/23 05:50 Baso % (Auto) 0.1 % 09/28/23 05:50 Neut # (Auto) 6.54 10^3/uL (1.8-7.7) 09/28/23 05:50 Lymph # (Auto) 0.4 10^3/uL (0.8-4.8) L 09/28/23 05:50 [place] # (Auto) 0.7 10^3/uL (0.2-0.9) 09/28/23 05:50 Eos # (Auto) 0.3 10^3/uL (0.0-0.8) 09/28/23 05:50 Baso # (Auto) 0.0 10^3/uL (0.0-0.1) 09/28/23 05:50 Nucleated RBC % (auto) 0 % 09/28/23 05:50 Nucleated RBCs # 0.0 /100WBC 09/28/23 05:50 ESR 14 mm/hr (0-10) H 09/14/23 00:55 PT 17.70 SECONDS (12.1-14.9) H 09/14/23 02:53 INR 1.40 (0.8-1.2) H 09/14/23 02:53 Specimen Type Arterial 09/26/23 15:05 Sample Site Brachial, left 09/26/23 15:05 ABG pH 7.44 (7.35-7.45) 09/26/23 15:05 ABG pCO2 44.5 mmHg (35-45) 09/26/23 15:05 ABG pO2 47.6 mmHg (80.0-100.0) L 09/26/23 15:05 ABG PO2/FiO2 Ratio 0 09/20/23 08:28 ABG HCO3 30.3 mmol/L (22-26) H 09/26/23 15:05 ABG O2 Saturation 87.4 09/14/23 02:24 ABG Base Excess 5.5 mmol/L (-2.0-2.0) H 09/26/23 15:05 Van Test N/a 09/26/23 15:05 A-a O2 Gradient 6.3 mmHg (5-10) 09/14/23 02:24 Hematocrit 31.0 % (42-52) L 09/26/23 15:05 Hgb O2 Saturation 84.5 % (95-100) L 09/14/23 02:24 Carboxyhemoglobin 2.9 %THgb (0.4-20.1) 09/14/23 02:24 Methemoglobin 0.5 % (0.4-1.5) 09/14/23 02:24 Total Hemoglobin 6.9 g/dL (14-18) L 09/14/23 02:24 Sodium 142.0 mmol/L (131-143) 09/14/23 02:24 Potassium 4.9 mmol/L (3.5-5.0) 09/14/23 02:24 Glucose 80.0 mg/dL (70-115) 09/14/23 02:24 Ionized Calcium 1.1 mmol/L (1.1-1.4) 09/14/23 02:24 O2 Delivery Device Nc 09/26/23 15:05 O2 Liters/Min 8.0 % 09/26/23 15:05 FiO2 60.0 % 09/20/23 08:28 Dynamiter ID Amh 09/26/23 15:05 Sodium 139 mmol/L (136-145) 09/27/23 04:47 Potassium 4.5 mmol/L (3.5-5.1) 09/27/23 04:47 Chloride 101 mmol/L (98-107) 09/27/23 04:47 Carbon Dioxide 28 mmol/L (22-29) 09/27/23 04:47 Anion Gap 14.5 (5-19) 09/27/23 04:47 BUN 37 mg/dL (8-23) H 09/27/23 04:47 Creatinine 4.3 mg/dL (0.7-1.2) H 09/27/23 04:47 GFR Calculation 14.2 mL/min (90-130) L 09/27/23 04:47 Glucose 136 mg/dL (65-115) H 09/27/23 04:47 POC Glucose 145 mg/dL (70-110) H 09/28/23 06:28 Calculated Osmolality 299 mOsm/kg (285-295) H 09/27/23 04:47 Lactic Acid 1.6 mmol/L (0.5-2.2) 09/14/23 00:55 Lactate 1.2 mmol/L (0.5-2.2) 09/15/23 07:05 Calcium 7.8 mg/dL (8.5-10.5) L 09/27/23 04:47 Phosphorus 6.5 mg/dL (2.5-4.5) H 09/14/23 00:55 Magnesium 2.0 mg/dL (1.7-2.3) 09/15/23 07:05 Iron 45 ug/dL (59-158) L 09/14/23 00:55 Ferritin 657 ng/mL (30-400) H 09/14/23 00:55 Total Bilirubin 0.4 mg/dL (0.15-1.2) 09/15/23 07:05 AST 6 U/L (0-40) 09/15/23 07:05 ALT < 5 U/L (0-41) 09/15/23 07:05 Alkaline Phosphatase 156 U/L (40-130) H 09/15/23 07:05 Ammonia 33 umol/L (16-60) 09/14/23 10:46 Creatine Kinase 38 U/L (39-308) L 09/15/23 07:05 Troponin T Baseline 239 ng/L (0-15) H* 09/20/23 09:59 Troponin T 120 Minute 223.2 ng/L (0-15) H 09/20/23 12:07 Delta Troponin T -15.8 ABS# (0-10) L 09/20/23 12:07 Troponin T Hi Sens 6Hr 237.0 ng/L (0-15) H 09/20/23 15:18 Troponin T Hi Sens 6Hr Delta -2.0 ng/L (0-12) L 09/20/23 15:18 C-Reactive Protein 63.3 mg/L (0.0-4.9) H 09/21/23 03:25 NT-Pro-B Natriuret Pep 50219 pg/mL (0-125) H 09/21/23 03:25 Total Protein 6.8 g/dL (6.6-8.7) 09/15/23 07:05 Albumin 2.8 g/dL (3.5-5.2) L 09/15/23 07:05 Globulin 4.0 g/dL (1.3-4.6) 09/15/23 07:05 Procalcitonin 0.52 ng/mL (0-0.5) H 09/20/23 06:27 Urine Color Brown (Yellow) A 09/14/23 04:32 Urine Appearance Turbid (CLEAR) A 09/14/23 04:32 Urine pH 5 (5-7) 09/14/23 04:32 Ur Specific [place] 1.020 (1.005-1.030) 09/14/23 04:32 Urine Protein 1+ (Negative) H 09/14/23 04:32 Urine Glucose (UA) Norm (Normal) 09/14/23 04:32 Urine Ketones Negative (Negative) 09/14/23 04:32 Urine Blood 3+ (Negative) H 09/14/23 04:32 Urine Nitrate Negative (Negative) 09/14/23 04:32 Urine Bilirubin Neg (Negative) 09/14/23 04:32 Urine Urobilinogen Neg mg/dL (Negative) 09/14/23 04:32 Ur Leukocyte Esterase 2+ (Negative) H 09/14/23 04:32 Urine RBC 25-40 /hpf (0-2) H 09/14/23 04:32 Urine WBC 55-80 /hpf (0-5) H 09/14/23 04:32 Ur Squamous Epith Cells 0-4 /hpf (0-5) H 09/14/23 04:32 Amorphous Sediment Trace /hpf 09/14/23 04:32 Urine Bacteria 1+ /hpf (NONE) H 09/14/23 04:32 Coarse Granular Casts 5-10 /lpf H 09/14/23 04:32 Urine Mucus Trace /hpf 09/14/23 04:32 Urine Yeast Trace /hpf 09/14/23 04:32 Random Vancomycin 17.1 ug/mL (20.0-40.0) L 09/19/23 04:48 Hep Bs Antigen Non-reactive (Nonreactive) 09/14/23 00:55 Hep Bs Antibody 10.2 (11.5-1000) L 09/14/23 00:55 Influenza Type A Ag negative (Negative) 09/14/23 03:52 Influenza Type B Ag negative (Negative) 09/14/23 03:52 SARS-CoV-2 Ag (Rapid) negative (Negative) 09/25/23 10:37 Blood Type A Positive 09/14/23 02:53 Rho(D) Type Rh positive 09/14/23 02:53 Antibody Screen Negative 09/14/23 02:53 Crossmatch See Detail 09/14/23 02:53 Vitals Last Vital Signs Temp 98.1 F 09/28/23 04:00 Pulse 82 09/28/23 05:33 Resp 18 09/28/23 04:00 BP 115/56 09/28/23 04:00 Pulse Ox 92 09/28/23 04:00 O2 Del Method Nasal Cannula 09/28/23 02:00 O2 Flow Rate 5 09/28/23 02:00 FiO2 45 09/27/23 00:00 Discharge Plan Discharge Patient Disposition: Xfer SNF Condition: Stable Prescriptions: New vancomycin 125 mg Capsule 125 mg PO TID Qty: 60 0RF Continued clopidogrel 75 mg Tablet 75 mg PO DAILY amlodipine 10 mg tablet 10 mg PO DAILY bumetanide 1 mg tablet See Rx Instructions .ROUTE .COMPLEX Rx Instructions: TAKE 1 TABLET BY MOUTH ONCE DAILY NEEDED RESUME ONCE A DAY WHEN SWELLING AND DAILY WEIGHTS INCREASE CALL [facility] OFFICE WHEN YOU DO RESUME IT calcium acetate 667 mg tablet 667 mg PO TID Ventolin HFA 90 mcg/actuation Hfa Aerosol Inhaler 2 puff INHALATION Q6H PRN (Reason: Shortness Of Breath) Saccharomyces boulardii 250 mg Capsule 250 mg PO BID Renvela 800 mg Tablet 800 mg PO TID Rx Instructions: must administer with a meal/food Tresiba FlexTouch U-100 100 unit/mL (3 mL) Insulin Pen 15 unit SUBCUT DAILY gabapentin 100 mg capsule 100 mg PO TID albuterol sulfate 2.5 mg /3 mL (0.083 %) solution for nebulization 2.5 mg inhalation Q4H PRN (Reason: Shortness Of Breath) amiodarone 200 mg tablet 200 mg PO QAM silver sulfadiazine [SSD] 1 % cream 1 applic TOPICAL DAILY acetaminophen 325 mg Tablet 650 mg PO Q6H PRN (Reason: Pain) hydrocodone-acetaminophen 5-325 mg Tablet 1 tab PO Q6H PRN (Reason: Pain) bisacodyl 10 mg Suppository 10 mg OH DAILY PRN (Reason: Constipation) metoprolol tartrate 50 mg tablet See Rx Instructions .ROUTE .COMPLEX Rx Instructions: TAKE 1 TABLET BY MOUTH DAILY ON FRIDAY, FRIDAY, FRIDAY AND FRIDAY. nystatin 100,000 unit/gram Powder 1 applic TOPICAL DAILY insulin aspart U-100 [Novolog FlexPen U-100 Insulin] 100 unit/mL (3 mL) insulin pen See Rx Instructions .ROUTE .COMPLEX Rx Instructions: INJECT PER SLIDING SCALE 3 TIMES DAILY: BS 100-119=2 UNITS, 120-160=4 UNITS, 161-200=6 UNITS, 201-240=8 UNITS, 241-280=11 UNITS, 281-320=15 UNIT. Discontinued atorvastatin 40 mg Tablet 40 mg PO DAILY Eliquis 5 mg tablet 5 mg PO BID Discharge Orders: Discharge Order (Routine); Ordered 09/28/23 Ordered By: Erick Rodriguez Other Ambulatory Orders: DME: BIPAP (Order) Location: None Selected Ordered By: Erick Rodriguez Referrals: [facility] [Outside] Misty Ibrahim [Primary Care Provider] - Discharge Diet: As Directed Patient Instructions: Dialysis Diet (DC), Altered Mental Status (ED), Hemodialysis (DC), Opioid Safety Activity Restrictions/Additional Instructions: level 4 dyspagia diet thick pureed diet Discharge Attestations Time Spent in Discharge Care*: greater than 30 min Quality Metrics Clinical Quality Measures [ No reported AMI, CVA or VTE this stay] Coding Level of Care Code Acute Code for Chg Fwd Diagnoses ESRD (end stage renal disease) on dialysis N18.6; Z99.2
[2023-09-28 06:51] LABS: Anion Gap 16.7 (5-19); Blood Urea Nitrogen 49 mg/dL (8-23); Calcium 8.4 mg/dL (8.5-10.5); Carbon Dioxide 27 mmol/L (22-29); Chloride 100 mmol/L (98-107); Glomerular Filtration Rate 10.9 mL/min (90-130); Glucose 123 mg/dL (65-115); Osmolality Calculated 302 mOsm/kg (285-295); Potassium 4.7 mmol/L (3.5-5.1); Sodium 139 mmol/L (136-145)
[2023-09-28 06:53] LABS: Creatinine Clr Calc Pharmacy 18.8873
--- NOTE | 2023-09-28 07:45 | P.PN_ITS ---
Subjective 2 Subjective: Patient was not able to pick him up over the weekend Vitals/I&O/Wt Last Vital Signs Temp 97.6 F 09/29/23 04:51 Pulse 97 09/29/23 06:00 Resp 18 09/29/23 04:51 BP 119/52 09/29/23 04:51 Pulse Ox 93 09/29/23 04:51 O2 Del Method Nasal Cannula 09/29/23 04:51 O2 Flow Rate 3 09/29/23 01:14 FiO2 45 09/27/23 00:00 09/28/23 09/29/23 09/29/23 22:59 06:59 14:59 Intake Total 980 / 1940 Output Total 3509 / 3509 100 / 3609 Balance -2529 / -1569 -100 / -1669 Weight last 48 hrs Weight 107.048 kg Weight 108.9 kg Weight 113.081 kg Physical Exam 2 Narrative: Pleasant and cooperative Assessment Sign of fluid load improving Currently on 5 to 6 L GCS 15 Urinary Catheter Management: Fuentes: Cath Placed During This Visit: yes Reason for Continuing Indwelling Catheter: Required Immobilization for Trauma or Surgery or Anesthesia Urinary Catheter Date of Insertion: 09/15/23 Urinary Catheter Time of Insertion: : Data 09/28/23 05:50 09/28/23 05:50 A&P Assessment and plan (1) Hypotension: (2) Pulmonary arterial hypertension: (3) CHF exacerbation: (4) Endocarditis: Qualifiers: Chronicity: unspecified Endocarditis type: infective Infective endocarditis organism: bacterial Qualified Code(s): I33.0 - Acute and subacute infective endocarditis (5) Afib: (6) DM2 (diabetes mellitus, type 2): (7) ESRD (end stage renal disease) on dialysis: (8) Chronic anemia: (9) Enterococcus faecalis infection: (10) History of Clostridioides difficile colitis: Plan Patient is ready to be [facility] Currently on 5 to 6 L oxygen Eliquis discontinued for anemia Patient will need ultrafiltration, most likely he will go for dialysis Friday, he is agreeable, no suicidal attempt, no sign of active depression High risk for readmissions Endocarditis: Continues to have antibiotics No need to give him antibiotics Remove PICC line for discharge Attestations 2 Medical Necessity Statement*: Discharge tomorrow Diagnoses Hypotension I95.9 Pulmonary arterial hypertension I27.21 CHF exacerbation I50.9 Endocarditis I33.0 Chronicity: unspecified Endocarditis type: infective Infective endocarditis organism: bacterial Afib I48.91 DM2 (diabetes mellitus, type 2) E11.9 ESRD (end stage renal disease) on dialysis N18.6; Z99.2 Chronic anemia D64.9 Enterococcus faecalis infection A49.8 History of Clostridioides difficile colitis Z86.19
--- NOTE | 2023-09-28 08:49 | PM.PN ---
Subjective Subjective: on 6L NC Medications: Reviewed: Yes Vitals/I&O/Wt Last Vital Signs Temp 98.8 F 09/28/23 07:54 Pulse 80 09/28/23 07:54 Resp 18 09/28/23 07:54 BP 121/50 09/28/23 07:54 Pulse Ox 92 09/28/23 07:54 O2 Del Method Nasal Cannula 09/28/23 07:54 O2 Flow Rate 5 09/28/23 02:00 FiO2 45 09/27/23 00:00 09/27/23 09/28/23 09/28/23 22:59 06:59 14:59 Intake Total 240 / 480 0 / 480 480 / 480 Output Total 50 / 50 0 / 50 Balance 190 / 430 0 / 430 480 / 480 Weight last 48 hrs Weight 113.081 kg Weight 111.158 kg Weight 111.947 kg Physical Exam Narrative: , no distress s2s2 RRR per report Lungs clear per report + edema Urinary Catheter Management: Fuentes: Cath Placed During This Visit: yes Reason for Continuing Indwelling Catheter: Other Urinary Catheter Date of Insertion: 09/15/23 Urinary Catheter Time of Insertion: 05:24 Data 09/28/23 05:50 09/28/23 05:50 A&P Assessment and plan (1) ESRD (end stage renal disease) on dialysis: 1. End-stage renal disease: On MWF schedule for dialysis, hd today Ultrafiltration as tolerated, patient currently off BiPAP 2. Altered mental status: Likely multifactorial, improved 3. Acute on chronic respiratory failure, currently off BiPAP, HD as above and ultrafiltration as tolerated 4. Anemia, plan for transfusion 5. Recent infective endocarditis Attestations Medical Necessity Statement*: per [facility] Coding Level of Care Code Acute Code for Chg Fwd Diagnoses ESRD (end stage renal disease) on dialysis N18.6; Z99.2
--- NOTE | 2023-09-28 09:00 | PC.NURSE ---
Spoke with [facility] patient is unable to return today but maybe able to return tomorrow. Dr. Gutierrez notified as she is covering for Dr. Rodriguez.
[2023-09-28] MEDS: insulin lispro 100 unit/1 mL SUBCUT ×2 (09:18→17:09)
[2023-09-28] MEDS: heparin, porcine 1,000 unit/mL INJ 10 mL 10000 UNIT INTRACATH (09:18)
[2023-09-28] MEDS: heparin, porcine 1,000 unit/mL INJ 10 mL 1000 UNIT IV (09:18)
[2023-09-28] MEDS: sevelamer 800 mg Tablet PO ×3 (09:19→21:13)
[2023-09-28] MEDS: OLANZapine 5 mg TABLET 2.5 MG PO ×2 (09:19→21:13)
[2023-09-28] MEDS: amiodarone 200 mg Tablet PO (09:19)
[2023-09-28] MEDS: heparin 5,000 unit/mL INJ 1 mL 5000 UNIT SUBCUT ×2 (09:19→21:14)
[2023-09-28] MEDS: vancomycin 125 mg Capsule PO ×3 (09:19→21:12)
[2023-09-28] MEDS: gabapentin 100 mg Capsule PO ×3 (09:19→21:13)
[2023-09-28 11:54] LABS: Glucose Point of Care 119 mg/dL (70-110)
[2023-09-28] MEDS: epoetin alfa 1000 Unit/0.05 mL (non-esrd) 20000 UNIT IVP (12:32)
[2023-09-28 16:31] LABS: Glucose Point of Care 241 mg/dL (70-110)
[2023-09-28 20:21] LABS: Glucose Point of Care 139 mg/dL (70-110)
[2023-09-28] MEDS: acetaminophen 325 mg Tablet 650 MG PO (21:12)
[2023-09-28] MEDS: metoprolol tartrate 50 mg Tablet PO (21:13)
[2023-09-28] MEDS: pantoprazole 40 mg SDV IVP (21:14)
[2023-09-29] VITALS (9 sets, daily range): BP systolic 100–124; BP diastolic 49–55; PULSE 85–102; RESP 18; TEMP 36.4–36.8; O2SAT 90–100
[2023-09-29] MEDS: ipratropium-albuterol 3 mL Neb INHALATION (01:10)
[2023-09-29 06:27] LABS: Glucose Point of Care 139 mg/dL (70-110)
--- NOTE | 2023-09-29 07:42 | P.DS_ITS ---
Discharge Providers Date of Admission: 09/14/23 03:46 Date of Discharge: September 29, 2023 Attending Provider at Admission: Jen Albright MD Attending Provider at Discharge: Erick Rodriguez MD Primary Care Provider: Misty Ibrahim Diagnoses at Discharge Discharge Diagnosis (1) Hypotension: Status: Inactive (2) Pulmonary arterial hypertension: Status: Inactive (3) CHF exacerbation: Status: Inactive (4) Endocarditis: Status: Inactive Qualifiers: Chronicity: unspecified Endocarditis type: infective Infective endocarditis organism: bacterial Qualified Code(s): I33.0 - Acute and subacute infective endocarditis (5) Afib: Status: Inactive (6) DM2 (diabetes mellitus, type 2): Status: Inactive (7) ESRD (end stage renal disease) on dialysis: Status: Inactive (8) Chronic anemia: Status: Inactive (9) Enterococcus faecalis infection: Status: Inactive (10) History of Clostridioides difficile colitis: Status: Inactive Reason for Visit Reason for Visit: [facility] Hospital Course Hospital Course 62-year-old male with multiple comorbid conditions, extrarenal disease Friday. Showing up for dialysis, has history of Enterococcus bacteremia finished 6 weeks of antibiotics during this hospitalization, he was transferred to [facility] in July, PICC line will be removed before his discharge from the hospital, patient suffered from respiratory failure related to fluid overload pneumonia he had aspiration pneumonia as well speech therapist recommended dysphagia diet level 4, patient's hypoxia respiratory status improved with use of BiPAP, he is DNR/DNI he was requiring more oxygen on daily basis however we were able to wean him down to 6 to 7 L with dialysis and diuresis. He required BiPAP overnight and 6 to 8 L of oxygen in the daytime. Patient finished ampicillin and Rocephin treatment for endocarditis and he was kept on C. difficile taper regimen of p.o. vancomycin. Patient will be considered very high risk of readmission, he is DNR/DNI He should use BiPAP every night, BiPAP settings entered, Patient will need ultrafiltration to reduce volume overload, with ultrafiltration his hypoxemia has improved significantly at the time of discharge she is only requiring 5 L of oxygen Physical Exam Narrative: Sign of fluid overload Drowsy and lethargic Persistent hypoxia BiPAP dependent Currently on 8 L nasal cannula No new focal deficit Chronic skin scarring, lymphedema and venous stasis dermatitis Also has pressure ulcers since admission Able to follow commands S1, S2 variable, Urinary Catheter Management: Fuentes: Cath Placed During This Visit: yes, but has since been removed by the nurse Reason for Continuing Indwelling Catheter: Decision to DC Catheter Urinary Catheter Date of Insertion: 09/15/23 Urinary Catheter Time of Insertion: 05: Date Urinary Catheter Removed: 09/29/23 Time Urinary Catheter Discontinued: 12:00 Discharge Data Studies Completed and Pending Completed Studies During Hospitalization Category Date Time Status CT abdomen pelvis wo con [id number] Routine Cat Scan 09/14/23 10:[address] angio chest PE protcl [id number] Stat Cat Scan 09/14/23 10:[address] angio chest PE protcl [id number] Stat Cat Scan 09/20/23 08:[address] head wo con* [id number] Routine Cat Scan 09/14/23 10:16 Completed XR chest 1V portable [id number] Routine Exams 09/15/23 07:00 Completed XR chest 1V portable [id number] Routine Exams 09/18/23 14:05 Completed XR chest 1V portable [id number] Routine Exams 09/20/23 07:55 Completed XR chest 1V portable [id number] Routine Exams 09/21/23 07:00 Completed XR chest 1V portable [id number] Stat Exams 09/14/23 00:48 [place] [id number] Routine Ultrasound 09/14/23 10:17 Completed CV. echo limited [id number] Routine Ultrasound 09/15/23 09:30 Completed Radiology Impressions Abdomen/Pelvis CT 09/14/23 10:08 IMPRESSION: Cholelithiasis without signs of acute cholecystitis. Head CT 09/14/23 10:16 IMPRESSION: No acute intracranial hemorrhage or mass effect or obvious new intracranial abnormality compared to 08/12/2023. Venous Duplex 09/14/23 10:17 IMPRESSION: No sonographic evidence of deep venous thrombosis. Chest CTA 09/20/23 08:19 IMPRESSION: 1. Limitations result in suboptimal opacification and heterogeneity of the pulmonary arteries. There is no obvious larger central pulmonary embolism, but a smaller segmental or subsegmental PE in either lung can not be excluded on the basis of this examination. 2. Unchanged prominent central pulmonary arteries suggesting pulmonary artery hypertension. 3. Unchanged mild cardiomegaly. No evidence of right heart strain. 4. Considerable increase in extensive bilateral pulmonary abnormality which may all be atelectasis and pneumonitis, but some of this could be malignancy. Increased occlusion and narrowing of bilateral bronchi. 5. Unchanged tracheomalacia. New mild indentation right tracheal wall associated with soft tissue could be invasion of neoplastic lymphadenopathy. Consider bronchoscopy. 6. Increased large right pleural effusion. Increased small left pleural effusion with continued areas of loculation. Empyema is possible. 7. Increased mediastinal and right pulmonary hilar lymphadenopathy could be reactive or neoplastic. 8. Additional details as above. Chest X-Ray 09/21/23 07:00 IMPRESSION: Increase in the bilateral lower lung zone consolidation/collapse associated bilateral pleural effusions. Laboratory Results WBC 8.00 10^3/uL (3.29-11.43) 09/28/23 05:50 RBC 2.87 10^6/uL (3.85-5.65) L 09/28/23 05:50 Hgb 8.40 g/dL (11.27-16.99) L 09/28/23 05:50 Hct 28.2 % (37-53) L 09/28/23 05:50 MCV 98.3 fl (82-101) 09/28/23 05:50 MCH 29.3 pg (27-33) 09/28/23 05:50 MCHC 29.8 g/dL (30-55) L 09/28/23 05:50 RDW 16.8 % (12.1-15.1) H 09/28/23 05:50 Plt Count 149 10^3/cmm (157-399) L 09/28/23 05:50 MPV 10.8 fL (7.4-10.4) H 09/28/23 05:50 Neut % (Auto) 81.7 % 09/28/23 05:50 Lymph % (Auto) 5.5 % 09/28/23 05:50 Lipscomb % (Auto) 8.8 % 09/28/23 05:50 Eos % (Auto) 3.4 % 09/28/23 05:50 Baso % (Auto) 0.1 % 09/28/23 05:50 Neut # (Auto) 6.54 10^3/uL (1.8-7.7) 09/28/23 05:50 Lymph # (Auto) 0.4 10^3/uL (0.8-4.8) L 09/28/23 05:50 Lipscomb # (Auto) 0.7 10^3/uL (0.2-0.9) 09/28/23 05:50 Eos # (Auto) 0.3 10^3/uL (0.0-0.8) 09/28/23 05:50 Baso # (Auto) 0.0 10^3/uL (0.0-0.1) 09/28/23 05:50 Nucleated RBC % (auto) 0 % 09/28/23 05:50 Nucleated RBCs # 0.0 /100WBC 09/28/23 05:50 ESR 14 mm/hr (0-10) H 09/14/23 00:55 PT 17.70 SECONDS (12.1-14.9) H 09/14/23 02:53 INR 1.40 (0.8-1.2) H 09/14/23 02:53 Specimen Type Arterial 09/26/23 15:05 Sample Site Brachial, left 09/26/23 15:05 ABG pH 7.44 (7.35-7.45) 09/26/23 15:05 ABG pCO2 44.5 mmHg (35-45) 09/26/23 15:05 ABG pO2 47.6 mmHg (80.0-100.0) L 09/26/23 15:05 ABG PO2/FiO2 Ratio 0 09/20/23 08:28 ABG HCO3 30.3 mmol/L (22-26) H 09/26/23 15:05 ABG O2 Saturation 87.4 09/14/23 02:24 ABG Base Excess 5.5 mmol/L (-2.0-2.0) H 09/26/23 15:05 Van Test N/a 09/26/23 15:05 A-a O2 Gradient 6.3 mmHg (5-10) 09/14/23 02:24 Hematocrit 31.0 % (42-52) L 09/26/23 15:05 Hgb O2 Saturation 84.5 % (95-100) L 09/14/23 02:24 Carboxyhemoglobin 2.9 %THgb (0.4-20.1) 09/14/23 02:24 Methemoglobin 0.5 % (0.4-1.5) 09/14/23 02:24 Total Hemoglobin 6.9 g/dL (14-18) L 09/14/23 02:24 Sodium 142.0 mmol/L (131-143) 09/14/23 02:24 Potassium 4.9 mmol/L (3.5-5.0) 09/14/23 02:24 Glucose 80.0 mg/dL (70-115) 09/14/23 02:24 Ionized Calcium 1.1 mmol/L (1.1-1.4) 09/14/23 02:24 O2 Delivery Device Nc 09/26/23 15:05 O2 Liters/Min 8.0 % 09/26/23 15:05 FiO2 60.0 % 09/20/23 08:28 Occupational Therapy Technician ID [facility] 09/26/23 15:05 Sodium 139 mmol/L (136-145) 09/28/23 05:50 Potassium 4.7 mmol/L (3.5-5.1) 09/28/23 05:50 Chloride 100 mmol/L (98-107) 09/28/23 05:50 Carbon Dioxide 27 mmol/L (22-29) 09/28/23 05:50 Anion Gap 16.7 (5-19) 09/28/23 05:50 BUN 49 mg/dL (8-23) H 09/28/23 05:50 Creatinine 5.4 mg/dL (0.7-1.2) H 09/28/23 05:50 GFR Calculation 10.9 mL/min (90-130) L 09/28/23 05:50 Glucose 123 mg/dL (65-115) H 09/28/23 05:50 POC Glucose 269 mg/dL (70-110) H 09/29/23 10:36 Calculated Osmolality 302 mOsm/kg (285-295) H 09/28/23 05:50 Lactic Acid 1.6 mmol/L (0.5-2.2) 09/14/23 00:55 Lactate 1.2 mmol/L (0.5-2.2) 09/15/23 07:05 Calcium 8.4 mg/dL (8.5-10.5) L 09/28/23 05:50 Phosphorus 6.5 mg/dL (2.5-4.5) H 09/14/23 00:55 Magnesium 2.0 mg/dL (1.7-2.3) 09/15/23 07:05 Iron 45 ug/dL (59-158) L 09/14/23 00:55 Ferritin 657 ng/mL (30-400) H 09/14/23 00:55 Total Bilirubin 0.4 mg/dL (0.15-1.2) 09/15/23 07:05 AST 6 U/L (0-40) 09/15/23 07:05 ALT < 5 U/L (0-41) 09/15/23 07:05 Alkaline Phosphatase 156 U/L (40-130) H 09/15/23 07:05 Ammonia 33 umol/L (16-60) 09/14/23 10:46 Creatine Kinase 38 U/L (39-308) L 09/15/23 07:05 Troponin T Baseline 239 ng/L (0-15) H* 09/20/23 09:59 Troponin T 120 Minute 223.2 ng/L (0-15) H 09/20/23 12:07 Delta Troponin T -15.8 ABS# (0-10) L 09/20/23 12:07 Troponin T Hi Sens 6Hr 237.0 ng/L (0-15) H 09/20/23 15:18 Troponin T Hi Sens 6Hr Delta -2.0 ng/L (0-12) L 09/20/23 15:18 C-Reactive Protein 63.3 mg/L (0.0-4.9) H 09/21/23 03:25 NT-Pro-B Natriuret Pep 08575 pg/mL (0-125) H 09/21/23 03:25 Total Protein 6.8 g/dL (6.6-8.7) 09/15/23 07:05 Albumin 2.8 g/dL (3.5-5.2) L 09/15/23 07:05 Globulin 4.0 g/dL (1.3-4.6) 09/15/23 07:05 Procalcitonin 0.52 ng/mL (0-0.5) H 09/20/23 06:27 Urine Color Brown (Yellow) A 09/14/23 04:32 Urine Appearance Turbid (CLEAR) A 09/14/23 04:32 Urine pH 5 (5-7) 09/14/23 04:32 Ur Specific [place] 1.020 (1.005-1.030) 09/14/23 04:32 Urine Protein 1+ (Negative) H 09/14/23 04:32 Urine Glucose (UA) Norm (Normal) 09/14/23 04:32 Urine Ketones Negative (Negative) 09/14/23 04:32 Urine Blood 3+ (Negative) H 09/14/23 04:32 Urine Nitrate Negative (Negative) 09/14/23 04:32 Urine Bilirubin Neg (Negative) 09/14/23 04:32 Urine Urobilinogen Neg mg/dL (Negative) 09/14/23 04:32 Ur Leukocyte Esterase 2+ (Negative) H 09/14/23 04:32 Urine RBC 25-40 /hpf (0-2) H 09/14/23 04:32 Urine WBC 55-80 /hpf (0-5) H 09/14/23 04:32 Ur Squamous Epith Cells 0-4 /hpf (0-5) H 09/14/23 04:32 Amorphous Sediment Trace /hpf 09/14/23 04:32 Urine Bacteria 1+ /hpf (NONE) H 09/14/23 04:32 Coarse Granular Casts 5-10 /lpf H 09/14/23 04:32 Urine Mucus Trace /hpf 09/14/23 04:32 Urine Yeast Trace /hpf 09/14/23 04:32 Random Vancomycin 17.1 ug/mL (20.0-40.0) L 09/19/23 04:48 Hep Bs Antigen Non-reactive (Nonreactive) 09/14/23 00:55 Hep Bs Antibody 10.2 (11.5-1000) L 09/14/23 00:55 Influenza Type A Ag negative (Negative) 09/14/23 03:52 Influenza Type B Ag negative (Negative) 09/14/23 03:52 SARS-CoV-2 Ag (Rapid) negative (Negative) 09/29/23 11:05 Blood Type A Positive 09/14/23 02:53 Rho(D) Type Rh positive 09/14/23 02:53 Antibody Screen Negative 09/14/23 02:53 Crossmatch See Detail 09/14/23 02:53 Vitals Last Vital Signs Temp 98.3 F 09/29/23 13:58 Pulse 102 H 09/29/23 13:58 Resp 18 09/29/23 13:58 BP 100/52 09/29/23 13:58 Pulse Ox 96 09/29/23 13:58 O2 Del Method Nasal Cannula 09/29/23 11:44 O2 Flow Rate 5 09/29/23 08:58 FiO2 45 09/27/23 00:00 Discharge Plan Discharge Patient Disposition: Xfer SNF Condition: Stable Prescriptions: New vancomycin 125 mg Capsule 125 mg PO TID Qty: 60 0RF Continued clopidogrel 75 mg Tablet 75 mg PO DAILY amlodipine 10 mg tablet 10 mg PO DAILY bumetanide 1 mg tablet See Rx Instructions .ROUTE .COMPLEX Rx Instructions: TAKE 1 TABLET BY MOUTH ONCE DAILY NEEDED RESUME ONCE A DAY WHEN SWELLING AND DAILY WEIGHTS INCREASE CALL [facility] OFFICE WHEN YOU DO RESUME IT calcium acetate 667 mg tablet 667 mg PO TID Ventolin HFA 90 mcg/actuation Hfa Aerosol Inhaler 2 puff INHALATION Q6H PRN (Reason: Shortness Of Breath) Saccharomyces boulardii 250 mg Capsule 250 mg PO BID Renvela 800 mg Tablet 800 mg PO TID Rx Instructions: must administer with a meal/food Tresiba FlexTouch U-100 100 unit/mL (3 mL) Insulin Pen 15 unit SUBCUT DAILY gabapentin 100 mg capsule 100 mg PO TID albuterol sulfate 2.5 mg /3 mL (0.083 %) solution for nebulization 2.5 mg inhalation Q4H PRN (Reason: Shortness Of Breath) amiodarone 200 mg tablet 200 mg PO QAM silver sulfadiazine [SSD] 1 % cream 1 applic TOPICAL DAILY acetaminophen 325 mg Tablet 650 mg PO Q6H PRN (Reason: Pain) hydrocodone-acetaminophen 5-325 mg Tablet 1 tab PO Q6H PRN (Reason: Pain) bisacodyl 10 mg Suppository 10 mg [place] DAILY PRN (Reason: Constipation) metoprolol tartrate 50 mg tablet See Rx Instructions .ROUTE .COMPLEX Rx Instructions: TAKE 1 TABLET BY MOUTH DAILY ON FRIDAY, FRIDAY, FRIDAY AND FRIDAY. nystatin 100,000 unit/gram Powder 1 applic TOPICAL DAILY insulin aspart U-100 [Novolog FlexPen U-100 Insulin] 100 unit/mL (3 mL) insulin pen See Rx Instructions .ROUTE .COMPLEX Rx Instructions: INJECT PER SLIDING SCALE 3 TIMES DAILY: BS 100-119=2 UNITS, 120-160=4 UNITS, 161-200=6 UNITS, 201-240=8 UNITS, 241-280=11 UNITS, 281-320=15 UNIT. Discontinued atorvastatin 40 mg Tablet 40 mg PO DAILY Eliquis 5 mg tablet 5 mg PO BID Discharge Orders: Discharge Order (Routine); Ordered 09/29/23 Ordered By: Erick Rodriguez Other Ambulatory Orders: DME: BIPAP (Order) Location: None Selected Ordered By: Erick Rodriguez Referrals: [facility] [Outside] Misty Ibrahim [Primary Care Provider] - Discharge Diet: As Directed Patient Instructions: Dialysis Diet (DC), Altered Mental Status (ED), Hemodialysis (DC), Opioid Safety Activity Restrictions/Additional Instructions: level 4 dyspagia diet thick pureed diet Discharge Attestations Time Spent in Discharge Care*: greater than 30 min Quality Metrics Clinical Quality Measures [ No reported AMI, CVA or VTE this stay] Coding Level of Care Code Acute Code for Chg Fwd Diagnoses Hypotension I95.9 Pulmonary arterial hypertension I27.21 CHF exacerbation I50.9 Endocarditis I33.0 Chronicity: unspecified Endocarditis type: infective Infective endocarditis organism: bacterial Afib I48.91 DM2 (diabetes mellitus, type 2) E11.9 ESRD (end stage renal disease) on dialysis N18.6; Z99.2 Chronic anemia D64.9 Enterococcus faecalis infection A49.8 History of Clostridioides difficile colitis Z86.19
[2023-09-29] MEDS: OLANZapine 5 mg TABLET 2.5 MG PO (08:05)
[2023-09-29] MEDS: sevelamer 800 mg Tablet PO (08:05)
[2023-09-29] MEDS: vancomycin 125 mg Capsule PO (08:05)
[2023-09-29] MEDS: gabapentin 100 mg Capsule PO (08:05)
[2023-09-29] MEDS: heparin 5,000 unit/mL INJ 1 mL 5000 UNIT SUBCUT (08:06)
[2023-09-29] MEDS: amiodarone 200 mg Tablet PO (08:06)
[2023-09-29] MEDS: pantoprazole 40 mg SDV IVP (08:06)
--- NOTE | 2023-09-29 08:55 | PM.PN ---
Subjective Subjective: feels better s/p HD yesterday Medications: Reviewed: Yes Vitals/I&O/Wt Last Vital Signs Temp 98.3 F 09/29/23 07:54 Pulse 102 H 09/29/23 07:54 Resp 18 09/29/23 07:54 BP 124/55 09/29/23 07:54 Pulse Ox 90 09/29/23 07:54 O2 Del Method Nasal Cannula 09/29/23 07:54 O2 Flow Rate 3 09/29/23 01:14 FiO2 45 09/27/23 00:00 09/28/23 09/29/23 09/29/23 22:59 06:59 14:59 Intake Total 980 / 1940 240 / 240 Output Total 3509 / 3509 100 / 3609 Balance -2529 / -1569 -100 / -1669 240 / 240 Weight last 48 hrs Weight 107.048 kg Weight 108.9 kg Weight 113.081 kg Physical Exam Narrative: , no distress s2s2 RRR per report Lungs clear per report + edema Urinary Catheter Management: Fuentes: Cath Placed During This Visit: yes Reason for Continuing Indwelling Catheter: Required Immobilization for Trauma or Surgery or Anesthesia Urinary Catheter Date of Insertion: 09/15/23 Urinary Catheter Time of Insertion: 05:24 Data 09/28/23 05:50 09/28/23 05:50 A&P Assessment and plan (1) ESRD (end stage renal disease) on dialysis: 1. End-stage renal disease: On MWF schedule for dialysis, hddone yesterday , next HD in Am Ultrafiltration as tolerated, patient currently off BiPAP, on 5 L Fio2 2. Altered mental status: Likely multifactorial, improved 3. Acute on chronic respiratory failure, currently off BiPAP, HD as above and ultrafiltration as tolerated 4. Anemia, plan for transfusion 5. Recent infective endocarditis Plan PER [facility] Attestations Medical Necessity Statement*: PER [facility] Coding Level of Care Code Acute Code for Chg Fwd Diagnoses ESRD (end stage renal disease) on dialysis N18.6; Z99.2
[2023-09-29 10:59] LABS: Glucose Point of Care 269 mg/dL (70-110)
[2023-09-29] MEDS: insulin lispro 100 unit/1 mL SUBCUT (11:26)
[2023-09-29 11:49] LABS: SARS Covid-2 Antigen negative (Negative)
== END 2023-09-29 14:00 | disposition skilled nursing facility (03) | DRG 871 ==
LOC: ER 03:52 → MEDSURG 03:53 → ICU 11:22 → MEDSURG 09-22 20:32
PROVIDERS: Family Medicine; Hospitalist; Admitting Provider Student in an Organized Health Care Education/Training Program; Emergency Provider Emergency Medicine; PCP Registered Nurse; Visit Provider Internal Medicine
DX: A41.9 Sepsis, unspecified organism (principal); G93.41 Metabolic encephalopathy; R65.21 Severe sepsis with septic shock; I33.9 Acute and subacute endocarditis, unspecified; I50.33 Acute on chronic diastolic (congestive) heart failure; N18.6 End stage renal disease; J80 Acute respiratory distress syndrome; I21.4 Non-ST elevation (NSTEMI) myocardial infarction; J69.0 Pneumonitis due to inhalation of food and vomit; I13.2 Hypertensive heart and chronic kidney disease with heart failure and with stage 5 chronic kidney disease, or end stage renal disease; A04.72 Enterocolitis due to Clostridium difficile, not specified as recurrent; E66.2 Morbid (severe) obesity with alveolar hypoventilation; N39.0 Urinary tract infection, site not specified; E11.22 Type 2 diabetes mellitus with diabetic chronic kidney disease; I48.91 Unspecified atrial fibrillation; I27.20 Pulmonary hypertension, unspecified; J39.8 Other specified diseases of upper respiratory tract; B96.20 Unspecified Escherichia coli [E. coli] as the cause of diseases classified elsewhere; L89.620 Pressure ulcer of left heel, unstageable; L89.610 Pressure ulcer of right heel, unstageable; Z66 Do not resuscitate; D63.1 Anemia in chronic kidney disease; B95.2 Enterococcus as the cause of diseases classified elsewhere; J44.9 Chronic obstructive pulmonary disease, unspecified; E11.65 Type 2 diabetes mellitus with hyperglycemia; Z11.52 Encounter for screening for COVID-19; Z99.2 Dependence on renal dialysis; Z91.158 Patient's noncompliance with renal dialysis for other reason; Z79.02 Long term (current) use of antithrombotics/antiplatelets; Z79.4 Long term (current) use of insulin; Z68.32 Body mass index [BMI] 32.0-32.9, adult; Z87.891 Personal history of nicotine dependence; Z89.411 Acquired absence of right great toe
CPT/HCPCS: 36415; 36416; 36430; 36592; 36600; 51702; 70450; 71045; 71275; 74176; 80048; 80051; 80053; 80202; 81001; 82140; 82274; 82330; 82550; 82728; 82803; 82805; 82962; 83540; 83605; 83735; 83880; 84100; 84145; 84484; 85025; 85610; 85651; 86140; 86706; 86850; 86900; 86920; 87040; 87086; 87340; 87426; 87804; 90935; 92526; 92610; 93005; 93308; 93970; 94640; 94660; 94664; 96372; 96376; 97110; 97162; 97167; 97530; 99285; C9113; J0131; J0290; J0696; J0885; J1630; J1644; J1815; J2060; J2185; J2270; J2919; J3370; J3372; J7050; J7799; P9040; P9047; Q3014; Q9967

== ENCOUNTER 2023-10-08 13:42 | Inpatient (IN) | payer MEDICAID, SELFPAY ==
[2023-10-08] VITALS (66 sets, daily range): BP systolic 75–142; BP diastolic 42–74; PULSE 87–113; RESP 15–32; TEMP 36.6–37.3; O2SAT 54–98; BMI 34.9
--- NOTE | 2023-10-08 13:51 | USCV_ITS ---
Geronimo Barahona Age: 62 Gender: M : 1960 Exam Date: 10/08/2023 14:23 Ordering Phys: Ton Nolasco Technologist: HEYDI Exam Location: [facility] Indication: R/O DVT HISTORY: Lower extremity swelling. Lower extremity pain. PROCEDURES: Venous duplex imaging was performed in only the left lower extremity. The following venous structures were evaluated: common femoral vein, profunda vein, proximal portion of the greater saphenous vein, superficial femoral vein, and the popliteal vein. In addition, the posterior tibial and peroneal trunk were evaluated. Serial compression, augmentation maneuvers, and spectral Doppler flow evaluation were performed. FINDINGS: No evidence of DVT seen in any vessel visualized at this time. CONCLUSIONS No evidence of left lower extremity DVT. Orlando Alvarado MD (Electronically Signed) Final Date: 08 Oct 2023 15:46 S
--- NOTE | 2023-10-08 13:52 | ECG_ITS ---
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 Measurements Intervals [place] Rate: 89 P: 0 WI: 0 QRS: 32 QRSD: 94 T: 10 QT: 357 QTc: 436 Interpretive Statements ATRIAL FIBRILLATION PROBABLE INFERIOR MYOCARDIAL INFARCTION , PROBABLY OLD [35 ms Q WAVE IN II/aVF] Compared to ECG 09/20/2023 11:14:26 Myocardial infarct finding now present Sinus rhythm no longer present Electronically Signed On 10-08-2023 16:26:49 CDT by Mike Hilton M.D. [email or web address]
--- NOTE | 2023-10-08 14:02 | XR_ITS ---
WS: [id number] Portable AP semiupright chest, 10/08/2023 Clinical Data: hx of afib/CHF Comparison: Portable chest, 09/21/2023 Findings: The pulmonary vascularity remains increased. The bilateral lower lobe opacities have dimini shed greatly compared to the prior x-ray. The heart is enlarged. The aortic arch shows calcification. No nodules or masses are seen. No pneumothorax is present. The right dialysis catheter remains in po sition. XR/XR chest 1V portable [id number] Impression: 1. Decrease in bilateral pulmonary opacities. 2. Pulmonary vascular congestion and cardiomegaly.
--- NOTE | 2023-10-08 14:02 | ED_ITS ---
Documented by User: MT Trevino 10/08/23 22:30 HPI - Extremity Problem 2 General: Chief complaint: Extremity Injury, Lower Stated complaint: LLE poor perfusion Time Seen by Provider: 10/08/23 13:42 Source: patient and EMS Mode of arrival: EMS Limitations: no limitations History of Present Illness: Patient is a 62-year-old male with significant past medical history who currently is on dialysis who presents to the emergency department [place] [facility] [place] to reportedly poor perfusion to the left lower extremity. Patient is denying any pain or symptoms at this time, states he was sent because his left lower extremity appeared to have poor capillary refill, nonpalpable pulses, and change in color. He was recently in the hospital and discharged on 09/28. He was diagnosed with endocarditis, CHF exacerbation, pulmonary arterial hypertension, and multiple other chronic illnesses and was discharged from the hospital on p.o. vancomycin for C. difficile colitis. He was deemed high risk for readmission, and he does note to me that he was feeling okay after being discharged. He does note his blood pressures have been running lower, and states he has not missed any dialysis appointments. He is a DNR/DNI. He states he has been taking medications as normal, and is denying to me any chest pain, palpitations, shortness of breath that is new, nausea or vomiting, or other symptoms. MD Complaint: other (Left lower extremity complaints) Onset (ago): minute(s) Associated symptoms: Reports no associated symptoms; Deny chest pain, fever(s) or rash Context: immobilization (From recent hospitalization) Review of Systems 2 General: Reports: 10 or more systems reviewed and unremarkable except in HPI and below Const: Denies: fever(s), chills or fatigue Eyes: Denies: change in vision ENMT: Denies: throat pain, ear or mastoid pain or nasal discharge Card: Denies: chest pain, palpitations, swelling of feet/ankles or lightheadedness Resp: Denies: dyspnea, productive cough or wheezing GI: Denies: abdominal pain, nausea, vomiting, diarrhea or constipation : Denies: flank pain, difficulty urinating, dysuria or urinary frequency Musc: Reports: other (Skin color changes/poor perfusion to the left lower extremity); Denies: neck pain, back pain or joint pain Skin/Breast: Denies: rash Neuro: Denies: headache(s) PFSH ED 2 PFSH: Medical History (Updated 10/08/23 @ 21:36 by Michael Estes MD) Urinary tract infection CHF exacerbation History of Clostridioides difficile colitis Bilateral pleural effusion Pulmonary arterial hypertension Acute respiratory distress syndrome Pressure ulcer of right heel, unstageable Shock Septic shock NSTEMI (non-ST elevated myocardial infarction) Aspiration pneumonia Pulmonary edema Acute hypoxic respiratory failure Acute encephalopathy Hypoglycemia Altered mental status Edema Decubitus ulcer of heel, unstageable Enterococcus faecalis infection Endocarditis Hypotension Chronic anemia Anemia Sepsis Afib ESRD (end stage renal disease) on dialysis Hyponatremia DM2 (diabetes mellitus, type 2) Pressure ulcer of left leg, stage 2 Pressure ulcer of right leg, stage 2 Wound of left foot Excoriation of groin Excoriation of abdomen Wound of left lower extremity Pressure ulcer of left buttock, stage 2 Pressure ulcer of right buttock, stage 2 Wound of right lower extremity Lymphedema Stasis dermatitis Pressure sore on buttocks Inability to perform activities of daily living Kidney dysfunction Fluid overload Cellulitis Hemodialysis status Temporary dialysis catheter placement Acute kidney failure Bradycardia Anasarca Bilateral lower leg cellulitis Metabolic acidosis Hyperkalemia DKA (diabetic ketoacidosis) Falls Generalized weakness FRANCISCO (acute kidney injury) CHF (congestive heart failure) Chronic respiratory failure with hypoxia COPD (chronic obstructive pulmonary disease) Social History Smoking and tobacco/nicotine status: former use of tobacco/nicotine Physical Exam 2 Const: COMMON NORMALS: no acute distress, patient oriented x3, no limitations and alert GENERAL APPEARANCE: cooperative, ill appearing and appears older than stated age NUTRITIONAL APPEARANCE: obese morbidly obese HENMT: COMMON NORMALS: normocephalic and atraumatic HEAD & SCALP: n ormocephalic and atraumatic Eye: COMMON NORMALS: Equal, round and reactive pupils present, EOMs intact bilaterally and conjunctivae normal CONJUNCTIVA: Yes conjunctivae normal P UPIL: Yes Equal, round and reactive pupils present Neck/C-Spine: COMMON NORMALS: full ROM, supple and no meningeal signs Chest: COMMONS NORMALS: normal inspection of the chest Resp: EFFORT & INSPECTION: Yes able to speak in complete sentences and Yes tachypneic Cardio: COMMON NORMALS: regular rate, S1 normal heart sound present, S2 normal heart sound present, No gallops present (Cardio), No clicks present (Cardio) and No murmurs present (Cardio) RATE: regular rate RHYTHM: abnormal rhythm irregularly irregular HEART SOUNDS: S1 normal heart sound present and S2 normal heart sound present GI: COMMON NORMALS: Soft to palpation and non-tender INSPECTION: Yes central obesity PALPATION: Yes Soft to palpation Extremity: NARRATIVE EXTREMITY EXAM: Digital amputations present right lower extremity. Both extremities are wrapped in dressing. Chronic venous stasis changes bilaterally. Ulcerations present to bilateral lower extremities. DP/PT pulses are not palpated to the left lower extremity, barely palpable to the right. He can move the extremities and no sensory changes noted. Neuro: COMMON NORMALS: patient oriented x3, moves all extremities and no focal motor deficits SENSORIUM/ORIENTATION: Yes alert MENINGEAL SIGNS: Yes no meningeal signs Psych: COMMON NORMALS: mental status grossly normal Course 2 Vital Signs: Vital signs: Vital Signs Temperature 97.8 F 10/08/23 23:01 Pulse Rate 115 H 10/09/23 06:41 Respiratory Rate 13 10/09/23 06:15 Blood Pressure 122/67 10/09/23 06:15 Pulse Oximetry 100 10/09/23 06:15 Oxygen Delivery Me thod BiPAP 10/08/23 23:45 Oxygen Flow Rate 14 10/08/23 23:30 Fraction of Inspir ed Oxygen 60 10/09/23 03:03 MDM - Extremity (Nontraumatic) Medical Decision Making Patient recently discharged from the hospital, deemed high risk for readmission due to his multiple comorbidities. Currently on p.o. bank. Sent today from [place] due to concerns for poor perfusion to left lower extremity. Ultrasound arterial of the left lower extremity demonstrated a left SFA occlusion. His BNP was significantly elevated and CRP elevated compared to prior lab results in the hospital. Lactic elevated. Hemoglobin also dropped, still has labs consistent with end-stage renal disease, last dialysis appointment was yesterday. All other abnormal labs appear to be within his baseline range. Chest x-ray did reveal signs of pulmonary congestion. EKG showed atrial fibrillation with rate 89. He is currently on 6 L of O2, has maintained around 90-92% oxygen saturation. Normally he takes 3 L of O2 at home, and is supposed to use a BiPAP which he states he has not been using due to the discomfort it gives him. Patient's blood pressure had been steadily declining while in the emergency department, he was started on 6 of Levophed which brought his pressure up to 120s/60s. Throughout his ED course he has not had any complaints. I spoke with his primary care provider, Misty Ibrahim at [facility], to correlate expectations of care. She does have an appointment for palliative care/comfort measures scheduled for 9 AM on Friday morning. Patient is adamant that he does not want admitted to the hospital again, and wants to go back to [place]. I spoke with hospitalist, Dr. Gutierrez, who is aware of patient's case and recent hospitalization. For the time being, he will be admitted to the ICU for further management. I ran this case by supervising ED physician, Dr. Shaw, who agrees with disposition. Dr. Rodriguez, consulting hospitalist who previously saw the patient in his last hospital stay, sees the patient in the emergency department. Patient adamantly request that he be sent back to [place] and not come into the hospital. All of the risks of this were discussed, and patient still refuses treatment in the ICU. As previously mentioned, he has virtual consultation with primary care to discuss palliative care on Friday, patient states he will attend this as normal and continue his medications at home. I again discussed with him the risks of leaving the hospital at this time, including , and he still does not want admission. Additionally, blood products ordered are also refused. All other questions and concerns addressed at this time. Just prior to discharge and after patient denied blood products, he began saying that he wants admitted. I relayed this to Dr. Rodriguez, who states that Dr. sEtes will be handling the patient's case. I spoke with Dr. Esets who kindly saw the patient in the emergency department and accepted to the ICU. Blood products were made at this time. Medical Records I reviewed the patient's medical records. Lab Data I reviewed the patient's lab results. 10/09/23 05:54 10/09/23 05:54 Radiology Impressions Chest X-Ray 10/08/23 14:02 Impression: 1. Decrease in bilateral pulmonary opacities. 2. Pulmonary vascular congestion and cardiomegaly. Duplex Scan Lower Extremity Artery 10/08/23 15:46 IMPRESSION: Left SFA occlusion Aorta w/Runoff CTA 10/08/23 19:21 IMPRESSION: 1. Moderate to severe stenoses of the right SFA and popliteal artery. The right tibioperoneal trunk is occluded with occlusion of the right posterior tibial and peroneal arteries. The right anterior tibial artery appears to be patent to the foot. 2. Occlusion of the distal left SFA. At least moderate stenosis of the left popliteal artery. The left anterior tibial artery appears to be occluded. The left posterior tibial and peroneal arteries appear to be patent, though dense calcification limits evaluation. 3. Cholelithiasis with possible edema about the gallbladder. Consider right upper quadrant ultrasound if there are symptoms related to gallbladder pathology. 4. Small bilateral pleural effusions with bibasilar atelectasis. Laboratory Results WBC 8.93 10^3/uL (3.29-11.43) 10/08/23 13:59 RBC 2.46 10^6/uL (3.85-5.65) L 10/08/23 13:59 Hgb 7.40 g/dL (11.27-16.99) L 10/08/23 13:59 Hct 24.4 % (37-53) L 10/08/23 13:59 MCV 99.2 fl (82-101) 10/08/23 13:59 MCH 30.1 pg (27-33) 10/08/23 13:59 MCHC 30.3 g/dL (30-55) 10/08/23 13:59 RDW 16.9 % (12.1-15.1) H 10/08/23 13:59 Plt Count 206 10^3/cmm (157-399) 10/08/23 13:59 MPV 10.3 fL (7.4-10.4) 10/08/23 13:59 Neut % (Auto) 85.0 % 10/08/23 13:59 Lymph % (Auto) 7.4 % 10/08/23 13:59 [place] % (Auto) 5.8 % 10/08/23 13:59 Eos % (Auto) 0.8 % 10/08/23 13:59 Baso % (Auto) 0.6 % 10/08/23 13:59 Neut # (Auto) 7.59 10^3/uL (1.8-7.7) 10/08/23 13:59 Lymph # (Auto) 0.7 10^3/uL (0.8-4.8) L 10/08/23 13:59 [place] # (Auto) 0.5 10^3/uL (0.2-0.9) 10/08/23 13:59 Eos # (Auto) 0.1 10^3/uL (0.0-0.8) 10/08/23 13:59 Baso # (Auto) 0.1 10^3/uL (0.0-0.1) 10/08/23 13:59 Nucleated RBC % (auto) 0 % 10/08/23 13:59 Nucleated RBCs # 0.0 /100WBC 10/08/23 13:59 ESR 25 mm/hr (0-10) H 10/08/23 13:59 Sodium 136 mmol/L (136-145) 10/08/23 13:59 Potassium 4.6 mmol/L (3.5-5.1) 10/08/23 13:59 Chloride 95 mmol/L (98-107) L 10/08/23 13:59 Carbon Dioxide 28 mmol/L (22-29) 10/08/23 13:59 Anion Gap 17.6 (5-19) 10/08/23 13:59 BUN 21 mg/dL (8-23) 10/08/23 13:59 Creatinine 4.2 mg/dL (0.7-1.2) H 10/08/23 13:59 GFR Calculation 14.5 mL/min (90-130) L 10/08/23 13:59 Glucose 195 mg/dL (65-115) H 10/08/23 13:59 Estimat Average Glucose 114 10/08/23 13:59 Hemoglobin A1c 5.6 % (4.0-6.0) 10/08/23 13:59 Calculated Osmolality 290 mOsm/kg (285-295) 10/08/23 13:59 Lactic Acid 3.5 mmol/L (0.5-2.2) H 10/08/23 13:59 Lactic Acid (Sepsis) 2.4 mmol/L (0.5-2.2) H 10/08/23 17:08 Calcium 8.7 mg/dL (8.5-10.5) 10/08/23 13:59 Total Bilirubin 0.5 mg/dL (0.15-1.2) 10/08/23 13:59 AST 11 U/L (0-40) 10/08/23 13:59 ALT 8 U/L (0-41) 10/08/23 13:59 Alkaline Phosphatase 252 U/L (40-130) H 10/08/23 13:59 Creatine Kinase 196 U/L (39-308) 10/08/23 13:59 C-Reactive Protein 160.2 mg/L (0.0-4.9) H 10/08/23 13:59 NT-Pro-B Natriuret Pep 45196 pg/mL (0-125) H 10/08/23 13:59 NT-Pro-B Natriuret Pep Cancelled 10/08/23 13:59 Total Protein 6.5 g/dL (6.6-8.7) L 10/08/23 13:59 Albumin 3.1 g/dL (3.5-5.2) L 10/08/23 13:59 Globulin 3.4 g/dL (1.3-4.6) 10/08/23 13:59 Procalcitonin 0.78 ng/mL (0-0.5) H 10/08/23 13:59 TSH 1.39 uIU/mL (0.27-4.20) 10/08/23 13:59 Urine Color Brown (Yellow) A 10/08/23 21:10 Urine Appearance Cloudy (CLEAR) A 10/08/23 21:10 Urine pH 5 (5-7) 10/08/23 21:10 Ur Specific [place] 1.020 (1.005-1.030) 10/08/23 21:10 Urine Protein 3+ (Negative) H 10/08/23 21:10 Urine Glucose (UA) Norm (Normal) 10/08/23 21:10 Urine Ketones 1+ (Negative) H 10/08/23 21:10 Urine Blood 3+ (Negative) H 10/08/23 21:10 Urine Nitrate Negative (Negative) 10/08/23 21:10 Urine Bilirubin 1+ (Negative) H 10/08/23 21:10 Urine Urobilinogen 1 mg/dL (Negative) H 10/08/23 21:10 Ur Leukocyte Esterase 2+ (Negative) H 10/08/23 21:10 Urine RBC 15-25 /hpf (0-2) H 10/08/23 21:10 Urine WBC Too numerous to cnt /hpf (0-5) H 10/08/23 21:10 Ur Squamous Epith Cells None /hpf (0-5) 10/08/23 21:10 Amorphous Sediment Not Reportable 10/08/23 21:10 Urine Bacteria 3+ /hpf (NONE) H 10/08/23 21:10 Urine Mucus 3+ /hpf 10/08/23 21:10 Blood Type A Positive 10/08/23 17:08 Rho(D) Type Rh positive 10/08/23 17:08 Antibody Screen Negative 10/08/23 17:08 Crossmatch See Detail 10/08/23 17:08 All radiology interpretation(s) finalized by discharge Discharge Plan Discharge Patient Disposition: Admitted As Inpatient Admit Provider: Michael Estes Clinical Impression: End stage kidney disease, Arterial occlusion Congestive heart failure Qualifiers: Heart failure type: unspecified Heart failure chronicity: acute on chronic Q ualified Code(s): I50.9 - Heart failure, unspecified Sepsis Qualifiers: Sepsis type: sepsis due to unspecified organism Sepsis acute organ dysfunction status: unspecified Qualified Code(s): A41.9 - Sepsis, unspecified organism Condition: Stable Coding Level of Care Code ED Application Security Architect for Chg Fwd Documented by User: Dean Shaw DO 10/09/23 07:52 HPI - Extremity Problem 2 General: Chief complaint: Extremity Injury, Lower Stated complaint: LLE poor perfusion Time Seen by Provider: 10/08/23 13:42 PFSH ED 2 PFSH: Medical History (Updated 10/08/23 @ 21:36 by Michael Estes MD) Urinary tract infection CHF exacerbation History of Clostridioides difficile colitis Bilateral pleural effusion Pulmonary arterial hypertension Acute respiratory distress syndrome Pressure ulcer of right heel, unstageable Shock Septic shock NSTEMI (non-ST elevated myocardial infarction) Aspiration pneumonia Pulmonary edema Acute hypoxic respiratory failure Acute encephalopathy Hypoglycemia Altered mental status Edema Decubitus ulcer of heel, unstageable Enterococcus faecalis infection Endocarditis Hypotension Chronic anemia Anemia Sepsis Afib ESRD (end stage renal disease) on dialysis Hyponatremia DM2 (diabetes mellitus, type 2) Pressure ulcer of left leg, stage 2 Pressure ulcer of right leg, stage 2 Wound of left foot Excoriation of groin Excoriation of abdomen Wound of left lower extremity Pressure ulcer of left buttock, stage 2 Pressure ulcer of right buttock, stage 2 Wound of right lower extremity Lymphedema Stasis dermatitis Pressure sore on buttocks Inability to perform activities of daily living Kidney dysfunction Fluid overload Cellulitis Hemodialysis status Temporary dialysis catheter placement Acute kidney failure Bradycardia Anasarca Bilateral lower leg cellulitis Metabolic acidosis Hyperkalemia DKA (diabetic ketoacidosis) Falls Generalized weakness FRANCISCO (acute kidney injury) CHF (congestive heart failure) Chronic respiratory failure with hypoxia COPD (chronic obstructive pulmonary disease) Social History Smoking and tobacco/nicotine status: former use of tobacco/nicotine Course 2 Vital Signs: Vital signs: Vital Signs Temperature 97.8 F 10/08/23 23:01 Pulse Rate 115 H 10/09/23 06:41 Respiratory Rate 13 10/09/23 06:15 Blood Pressure 122/67 10/09/23 06:15 Pulse Oximetry 100 10/09/23 06:15 Oxygen Delivery Me thod BiPAP 10/08/23 23:45 Oxygen Flow Rate 14 10/08/23 23:30 Fraction of Inspir ed Oxygen 60 10/09/23 03:03 MDM - Extremity (Nontraumatic) Medical Decision Making Patient recently discharged from the hospital, deemed high risk for readmission due to his multiple comorbidities. Currently on p.o. bank. Sent today from [place] due to concerns for poor perfusion to left lower extremity. Ultrasound arterial of the left lower extremity demonstrated a left SFA occlusion. His BNP was significantly elevated and CRP elevated compared to prior lab results in the hospital. Lactic elevated. Hemoglobin also dropped, still has labs consistent with end-stage renal disease, last dialysis appointment was yesterday. All other abnormal labs appear to be within his baseline range. Chest x-ray did reveal signs of pulmonary congestion. EKG showed atrial fibrillation with rate 89. He is currently on 6 L of O2, has maintained around 90-92% oxygen saturation. Normally he takes 3 L of O2 at home, and is supposed to use a BiPAP which he states he has not been using due to the discomfort it gives him. Patient's blood pressure had been steadily declining while in the emergency department, he was started on 6 of Levophed which brought his pressure up to 120s/60s. Throughout his ED course he has not had any complaints. I spoke with his primary care provider, Misty Ibrahim at [facility], to correlate expectations of care. She does have an appointment for palliative care/comfort measures scheduled for 9 AM on Friday morning. Patient is adamant that he does not want admitted to the hospital again, and wants to go back to [place]. I spoke with hospitalist, Dr. Gutierrez, who is aware of patient's case and recent hospitalization. For the time being, he will be admitted to the ICU for further management. I ran this case by supervising ED physician, Dr. Shaw, who agrees with disposition. Dr. Rodriguez, consulting hospitalist who previously saw the patient in his last hospital stay, sees the patient in the emergency department. Patient adamantly request that he be sent back to [place] and not come into the hospital. All of the risks of this were discussed, and patient still refuses treatment in the ICU. As previously mentioned, he has virtual consultation with primary care to discuss palliative care on Friday, patient states he will attend this as normal and continue his medications at home. I again discussed with him the risks of leaving the hospital at this time, including , and he still does not want admission. Additionally, blood products ordered are also refused. All other questions and concerns addressed at this time. Just prior to discharge and after patient denied blood products, he began saying that he wants admitted. I relayed this to Dr. Rodriguez, who states that Dr. Estes will be handling the patient's case. I spoke with Dr. Estes who kindly saw the patient in the emergency department and accepted to the ICU. Blood products were made at this time. Chart reviewed and patient discussed with midlevel. Agree with assessment and plan. Lab Data 10/09/23 05:54 10/09/23 05:54 Radiology Impressions Chest X-Ray 10/08/23 14:02 Impression: 1. Decrease in bilateral pulmonary opacities. 2. Pulmonary vascular congestion and cardiomegaly. Duplex Scan Lower Extremity Artery 10/08/23 15:46 IMPRESSION: Left SFA occlusion Aorta w/Runoff CTA 10/08/23 19:21 IMPRESSION: 1. Moderate to severe stenoses of the right SFA and popliteal artery. The right tibioperoneal trunk is occluded with occlusion of the right posterior tibial and peroneal arteries. The right anterior tibial artery appears to be patent to the foot. 2. Occlusion of the distal left SFA. At least moderate stenosis of the left popliteal artery. The left anterior tibial artery appears to be occluded. The left posterior tibial and peroneal arteries appear to be patent, though dense calcification limits evaluation. 3. Cholelithiasis with possible edema about the gallbladder. Consider right upper quadrant ultrasound if there are symptoms related to gallbladder pathology. 4. Small bilateral pleural effusions with bibasilar atelectasis. Laboratory Results WBC 8.93 10^3/uL (3.29-11.43) 10/08/23 13:59 RBC 2.46 10^6/uL (3.85-5.65) L 10/08/23 13:59 Hgb 7.40 g/dL (11.27-16.99) L 10/08/23 13:59 Hct 24.4 % (37-53) L 10/08/23 13:59 MCV 99.2 fl (82-101) 10/08/23 13:59 MCH 30.1 pg (27-33) 10/08/23 13:59 MCHC 30.3 g/dL (30-55) 10/08/23 13:59 RDW 16.9 % (12.1-15.1) H 10/08/23 13:59 Plt Count 206 10^3/cmm (157-399) 10/08/23 13:59 MPV 10.3 fL (7.4-10.4) 10/08/23 13:59 Neut % (Auto) 85.0 % 10/08/23 13:59 Lymph % (Auto) 7.4 % 10/08/23 13:59 [place] % (Auto) 5.8 % 10/08/23 13:59 Eos % (Auto) 0.8 % 10/08/23 13:59 Baso % (Auto) 0.6 % 10/08/23 13:59 Neut # (Auto) 7.59 10^3/uL (1.8-7.7) 10/08/23 13:59 Lymph # (Auto) 0.7 10^3/uL (0.8-4.8) L 10/08/23 13:59 [place] # (Auto) 0.5 10^3/uL (0.2-0.9) 10/08/23 13:59 Eos # (Auto) 0.1 10^3/uL (0.0-0.8) 10/08/23 13:59 Baso # (Auto) 0.1 10^3/uL (0.0-0.1) 10/08/23 13:59 Nucleated RBC % (auto) 0 % 10/08/23 13:59 Nucleated RBCs # 0.0 /100WBC 10/08/23 13:59 ESR 25 mm/hr (0-10) H 10/08/23 13:59 Sodium 136 mmol/L (136-145) 10/08/23 13:59 Potassium 4.6 mmol/L (3.5-5.1) 10/08/23 13:59 Chloride 95 mmol/L (98-107) L 10/08/23 13:59 Carbon Dioxide 28 mmol/L (22-29) 10/08/23 13:59 Anion Gap 17.6 (5-19) 10/08/23 13:59 BUN 21 mg/dL (8-23) 10/08/23 13:59 Creatinine 4.2 mg/dL (0.7-1.2) H 10/08/23 13:59 GFR Calculation 14.5 mL/min (90-130) L 10/08/23 13:59 Glucose 195 mg/dL (65-115) H 10/08/23 13:59 Estimat Average Glucose 114 10/08/23 13:59 Hemoglobin A1c 5.6 % (4.0-6.0) 10/08/23 13:59 Calculated Osmolality 290 mOsm/kg (285-295) 10/08/23 13:59 Lactic Acid 3.5 mmol/L (0.5-2.2) H 10/08/23 13:59 Lactic Acid (Sepsis) 2.4 mmol/L (0.5-2.2) H 10/08/23 17:08 Calcium 8.7 mg/dL (8.5-10.5) 10/08/23 13:59 Total Bilirubin 0.5 mg/dL (0.15-1.2) 10/08/23 13:59 AST 11 U/L (0-40) 10/08/23 13:59 ALT 8 U/L (0-41) 10/08/23 13:59 Alkaline Phosphatase 252 U/L (40-130) H 10/08/23 13:59 Creatine Kinase 196 U/L (39-308) 10/08/23 13:59 C-Reactive Protein 160.2 mg/L (0.0-4.9) H 10/08/23 13:59 NT-Pro-B Natriuret Pep 32979 pg/mL (0-125) H 10/08/23 13:59 NT-Pro-B Natriuret Pep Cancelled 10/08/23 13:59 Total Protein 6.5 g/dL (6.6-8.7) L 10/08/23 13:59 Albumin 3.1 g/dL (3.5-5.2) L 10/08/23 13:59 Globulin 3.4 g/dL (1.3-4.6) 10/08/23 13:59 Procalcitonin 0.78 ng/mL (0-0.5) H 10/08/23 13:59 TSH 1.39 uIU/mL (0.27-4.20) 10/08/23 13:59 Urine Color Brown (Yellow) A 10/08/23 21:10 Urine Appearance Cloudy (CLEAR) A 10/08/23 21:10 Urine pH 5 (5-7) 10/08/23 21:10 Ur Specific [place] 1.020 (1.005-1.030) 10/08/23 21:10 Urine Protein 3+ (Negative) H 10/08/23 21:10 Urine Glucose (UA) Norm (Normal) 10/08/23 21:10 Urine Ketones 1+ (Negative) H 10/08/23 21:10 Urine Blood 3+ (Negative) H 10/08/23 21:10 Urine Nitrate Negative (Negative) 10/08/23 21:10 Urine Bilirubin 1+ (Negative) H 10/08/23 21:10 Urine Urobilinogen 1 mg/dL (Negative) H 10/08/23 21:10 Ur Leukocyte Esterase 2+ (Negative) H 10/08/23 21:10 Urine RBC 15-25 /hpf (0-2) H 10/08/23 21:10 Urine WBC Too numerous to cnt /hpf (0-5) H 10/08/23 21:10 Ur Squamous Epith Cells None /hpf (0-5) 10/08/23 21:10 Amorphous Sediment Not Reportable 10/08/23 21:10 Urine Bacteria 3+ /hpf (NONE) H 10/08/23 21:10 Urine Mucus 3+ /hpf 10/08/23 21:10 Blood Type A Positive 10/08/23 17:08 Rho(D) Type Rh positive 10/08/23 17:08 Antibody Screen Negative 10/08/23 17:08 Crossmatch See Detail 10/08/23 17:08 Discharge Plan Discharge Patient Disposition: Admitted As Inpatient Admit Provider: Michael Estes Clinical Impression: End stage kidney disease, Arterial occlusion Congestive heart failure Qualifiers: Heart failure type: unspecified Heart failure chronicity: acute on chronic Q ualified Code(s): I50.9 - Heart failure, unspecified Sepsis Qualifiers: Sepsis type: sepsis due to unspecified organism Sepsis acute organ dysfunction status: unspecified Qualified Code(s): A41.9 - Sepsis, unspecified organism Condition: Stable Coding Level of Care Code ED Application Security Architect for Courtney Doran
[2023-10-08] MEDS: sodium chloride 0.9% 1,000 ML 999 ML IV ×2 (14:15→15:43)
[2023-10-08 14:17] LABS: Basophils # 0.1 10^3/uL (0.0-0.1); Basophils % 0.6 %; Eosinophils # 0.1 10^3/uL (0.0-0.8); Eosinophils % 0.8 %; Hematocrit 24.4 % (37-53); Lymphocytes # 0.7 10^3/uL (0.8-4.8); Lymphocytes % 7.4 %; Mean Corpuscular HGB Conc 30.3 g/dL (30-55); Mean Corpuscular Hemoglobin 30.1 pg (27-33); Mean Corpuscular Volume 99.2 fl (82-101); Mean Platelet Volume 10.3 fL (7.4-10.4); Monocytes # 0.5 10^3/uL (0.2-0.9); Monocytes % 5.8 %; Neutrophils # 7.59 10^3/uL (1.8-7.7); Nucleated Red Blood Cells % 0 %; Platelet Count 206 10^3/cmm (157-399); Red Blood Count 2.46 10^6/uL (3.85-5.65); Red Cell Distribution Width 16.9 % (12.1-15.1); White Blood Count 8.93 10^3/uL (3.29-11.43)
[2023-10-08 14:46] LABS: Erythrocyte Sedimentation Rate 25 mm/hr (0-10)
[2023-10-08 14:47] LABS: Alanine Aminotransferase 8 U/L (0-41); Albumin Level 3.1 g/dL (3.5-5.2); Alkaline Phosphatase 252 U/L (40-130); Anion Gap 17.6 (5-19); Aspartate Amino Transferase 11 U/L (0-40); Blood Urea Nitrogen 21 mg/dL (8-23); C Reactive Protein 160.2 mg/L (0.0-4.9); Calcium 8.7 mg/dL (8.5-10.5); Carbon Dioxide 28 mmol/L (22-29); Chloride 95 mmol/L (98-107); Creatinine Clr Calc Pharmacy 26.7172; Globulin 3.4 g/dL (1.3-4.6); Glomerular Filtration Rate 14.5 mL/min (90-130); Glucose 195 mg/dL (65-115); Osmolality Calculated 290 mOsm/kg (285-295); Potassium 4.6 mmol/L (3.5-5.1); Sodium 136 mmol/L (136-145); Total Bilirubin 0.5 mg/dL (0.15-1.2); Total Protein 6.5 g/dL (6.6-8.7)
[2023-10-08 15:01] LABS: Lactic Sepsis W/Reflex 3.5 mmol/L (0.5-2.2)
[2023-10-08 15:09] LABS: NT Pro B Type Natriuretic Pept 35816 pg/mL (0-125)
[2023-10-08] MEDS: norepinephrine 4 MG/250 ML BAG 22.5 MG IV (15:46)
--- NOTE | 2023-10-08 15:46 | USR_ITS ---
PROCEDURE INFORMATION: Exam: US Duplex Left Lower Extremity Arteries Or Arterial Bypass Grafts Exam date and time: 10/08/2023 3:55 PM Age: 62 years old Clinical indication: Edema, localized; Lower extremity, left; Additional info: Eval for poor perfusion TECHNIQUE: Imaging protocol: Left Real-time duplex scan of the arteries or arterial bypass grafts of the left lower extremity with 2-D chang scale, color Doppler flow and spectral waveform analysis. Images documented and saved. COMPARISON: US CV venous duplex [facility] [id number] 09/14/2023 7:04 PM FINDINGS: Left common femoral artery: No occlusion or significant stenosis. Normal waveform. Left superficial femoral artery: Segmental occlusion noted distally. Left popliteal artery: Monophasic waveforms noted. Left calf/foot arteries: Weak monophasic waveforms noted. US/CV arterial duplex [facility] [id number] IMPRESSION: Left SFA occlusion
[2023-10-08 15:57] LABS: Reflex Lactate Order REFLEX LACTIC ORDERD
--- NOTE | 2023-10-08 16:05 | PC.NURSE ---
per danica , lower levophed to 4mcg.
[2023-10-08] MEDS: sodium chloride 0.9% 1,000 ML 75 ML IV (17:07)
[2023-10-08] MEDS: cefTRIAXone 1,000 MG in sodium chloride 0.9% (plus) 50 ML 100 MG IV (17:10)
[2023-10-08] MEDS: heparin 5,000 unit/mL INJ 1 mL 5000 UNIT SUBCUT (17:14)
[2023-10-08 17:31] LABS: Procalcitonin 0.78 ng/mL (0-0.5); Thyroid Stimulating Hormone 1.39 uIU/mL (0.27-4.20)
[2023-10-08 17:34] LABS: Estmated Average Glucose 114; Hemoglobin A1C 5.6 % (4.0-6.0)
--- NOTE | 2023-10-08 17:40 | P.HP_ITS ---
Providers/Chief Complaint 2 Primary Care Provider: Misty Ibrahim Chief Complaint: LLE poor perfusion History of Present Illness Geronimo Barahona is a 62 year old male Medications/Allergies Home Medications Medication Instructions Recorded Confirmed Last Taken Type albuterol sulfate 2.5 mg/3 mL 2.5 mg inhalation Q4H PRN 10/03/22 10/08/23 Unknown History (0.083 %) solution for nebulization Shortness Of Breath amiodarone 200 mg tablet 200 mg PO QAM 10/03/22 10/08/23 10/08/23 History acetaminophen 325 mg tablet 650 mg PO Q6H PRN Pain 08/12/23 10/08/23 08/04/23 History bisacodyl 10 mg rectal suppository 10 mg FL DAILY PRN Constipation 08/12/23 10/08/23 Unknown History hydrocodone 5 mg-acetaminophen 325 1 tab PO Q6H PRN Pain 08/12/23 10/08/23 10/08/23 History mg tablet insulin aspart U-100 100 unit/mL See Rx Instructions .Route .COMPLEX 08/12/23 10/08/23 10/08/23 History (3 mL) subcutaneous pen (Novolog FlexPen U-100 Insulin aspart) metoprolol tartrate 50 mg tablet See Rx Instructions .Route .COMPLEX 08/12/23 10/08/23 10/08/23 History nystatin 100,000 unit/gram topical 1 applic topical DAILY 08/12/23 10/08/23 10/07/23 History powder Saccharomyces boulardii 250 mg 250 mg PO BID 09/14/23 10/08/23 10/08/23 History capsule albuterol sulfate 90 mcg/actuation 2 puff inhalation Q6H PRN 09/14/23 10/08/23 Unknown History aerosol inhaler (Ventolin HFA) Shortness Of Breath bumetanide 1 mg tablet See Rx Instructions .Route .COMPLEX 09/14/23 10/08/23 Unknown History calcium acetate 667 mg tablet 667 mg PO TID 09/14/23 10/08/23 10/08/23 History clopidogrel 75 mg tablet 75 mg PO DAILY 09/14/23 10/08/23 10/08/23 History gabapentin 100 mg capsule 100 mg PO TID 09/14/23 10/08/23 10/08/23 History vancomycin 125 mg capsule 125 mg PO TID #60 caps 09/25/23 10/08/23 10/08/23 Rx insulin glargine 100 unit/mL (3 15 unit SUBCUT QPM 10/08/23 10/08/23 10/07/23 History mL) subcutaneous pen (Lantus Solostar U-100 Insulin) metoprolol tartrate 50 mg tablet See Rx Instructions .Route .COMPLEX 10/08/23 10/08/23 10/07/23 History sevelamer carbonate 800 mg tablet 800 mg PO TID 10/08/23 10/08/23 10/08/23 History (Renvela) Allergies Allergy/AdvReac Type Severity Reaction Status Date / Time amoxicillin [From Augmentin] Allergy Mild rash Verified 09/12/23 09:18 clavulanic acid Allergy Mild rash Verified 09/12/23 09:18 [From Augmentin] levofloxacin Allergy Mild rash Verified 09/12/23 09:18 PFSH Acute 2 PFSH: Medical History History of Clostridioides difficile colitis Bilateral pleural effusion Pulmonary arterial hypertension Acute respiratory distress syndrome Pressure ulcer of right heel, unstageable Shock Septic shock NSTEMI (non-ST elevated myocardial infarction) Aspiration pneumonia CHF exacerbation Pulmonary edema Acute hypoxic respiratory failure Acute encephalopathy Hypoglycemia Altered mental status Edema Decubitus ulcer of heel, unstageable Enterococcus faecalis infection Endocarditis Hypotension Chronic anemia Anemia Sepsis Urinary tract infection Afib ESRD (end stage renal disease) on dialysis Hyponatremia DM2 (diabetes mellitus, type 2) Pressure ulcer of left leg, stage 2 Pressure ulcer of right leg, stage 2 Wound of left foot Excoriation of groin Excoriation of abdomen Wound of left lower extremity Pressure ulcer of left buttock, stage 2 Pressure ulcer of right buttock, stage 2 Wound of right lower extremity Lymphedema Stasis dermatitis Pressure sore on buttocks Inability to perform activities of daily living Kidney dysfunction Fluid overload Cellulitis Hemodialysis status Temporary dialysis catheter placement Acute kidney failure Bradycardia Anasarca Bilateral lower leg cellulitis Metabolic acidosis Hyperkalemia DKA (diabetic ketoacidosis) Falls Generalized weakness FRANCISCO (acute kidney injury) CHF (congestive heart failure) Chronic respiratory failure with hypoxia COPD (chronic obstructive pulmonary disease) Social History Smoking and tobacco/nicotine status: former use of tobacco/nicotine Vitals/I&O/Wt Last Vital Signs Temp 98.0 F 10/08/23 13:50 Pulse 102 H 10/08/23 13:50 Resp 20 H 10/08/23 13:50 BP 88/53 10/08/23 14:43 Pulse Ox 98 10/08/23 13:50 O2 Del Method Nasal Cannula 10/08/23 13:50 O2 Flow Rate 3 10/08/23 13:50 10/08/23 10/08/23 10/08/23 06:59 14:59 22:59 Intake Total Balance Weight last 48 hrs Weight 136.078 kg Data 10/08/23 13:59 10/08/23 13:59 Micro: Microbiology 10/08/23 14:17 Blood Culture - Preliminary Blood SPECIMEN COLLECTED 10/08/23 14:14 Blood Culture - Preliminary Blood SPECIMEN COLLECTED Coding Level of Care Code Acute Code for Chg Andreea
--- NOTE | 2023-10-08 17:49 | P.CONIM_ITS ---
Providers/Reason For Consult 2 Primary Care Provider: Misty Ibrahim History of Present Illness History of Present Illness Geronimo Barahona is a 62 year old male Medications/Allergies Home Medications Medication Instructions Recorded Confirmed Last Taken Type albuterol sulfate 2.5 mg/3 mL 2.5 mg inhalation Q4H PRN 10/03/22 10/08/23 Unknown History (0.083 %) solution for nebulization Shortness Of Breath amiodarone 200 mg tablet 200 mg PO QAM 10/03/22 10/08/23 10/08/23 History acetaminophen 325 mg tablet 650 mg PO Q6H PRN Pain 08/12/23 10/08/23 08/04/23 History bisacodyl 10 mg rectal suppository 10 mg NM DAILY PRN Constipation 08/12/23 10/08/23 Unknown History hydrocodone 5 mg-acetaminophen 325 1 tab PO Q6H PRN Pain 08/12/23 10/08/23 10/08/23 History mg tablet insulin aspart U-100 100 unit/mL See Rx Instructions .Route .COMPLEX 08/12/23 10/08/23 10/08/23 History (3 mL) subcutaneous pen (Novolog FlexPen U-100 Insulin aspart) metoprolol tartrate 50 mg tablet See Rx Instructions .Route .COMPLEX 08/12/23 10/08/23 10/08/23 History nystatin 100,000 unit/gram topical 1 applic topical DAILY 08/12/23 10/08/23 10/07/23 History powder Saccharomyces boulardii 250 mg 250 mg PO BID 09/14/23 10/08/23 10/08/23 History capsule albuterol sulfate 90 mcg/actuation 2 puff inhalation Q6H PRN 09/14/23 10/08/23 Unknown History aerosol inhaler (Ventolin HFA) Shortness Of Breath bumetanide 1 mg tablet See Rx Instructions .Route .COMPLEX 09/14/23 10/08/23 Unknown History calcium acetate 667 mg tablet 667 mg PO TID 09/14/23 10/08/23 10/08/23 History clopidogrel 75 mg tablet 75 mg PO DAILY 09/14/23 10/08/23 10/08/23 History gabapentin 100 mg capsule 100 mg PO TID 09/14/23 10/08/23 10/08/23 History vancomycin 125 mg capsule 125 mg PO TID #60 caps 09/25/23 10/08/23 10/08/23 Rx insulin glargine 100 unit/mL (3 15 unit SUBCUT QPM 10/08/23 10/08/23 10/07/23 History mL) subcutaneous pen (Lantus Solostar U-100 Insulin) metoprolol tartrate 50 mg tablet See Rx Instructions .Route .COMPLEX 10/08/23 10/08/23 10/07/23 History sevelamer carbonate 800 mg tablet 800 mg PO TID 10/08/23 10/08/23 10/08/23 History (Renvela) Allergies Allergy/AdvReac Type Severity Reaction Status Date / Time amoxicillin [From Augmentin] Allergy Mild rash Verified 09/12/23 09:18 clavulanic acid Allergy Mild rash Verified 09/12/23 09:18 [From Augmentin] levofloxacin Allergy Mild rash Verified 09/12/23 09:18 Current Medications Generic Name Dose Route Start Last Admin Trade Name Freq PRN Reason Stop Dose Admin norepinephrine 4 mg in 250 mls @ 0 mls/hr 10/08/23 15:45 10/08/23 16:06 Levophed IV 4 mcg/min .Q0M JAIDEN 15 mls/hr Titration Protocol Per Protocol PFSH Acute 2 PFSH: Medical History History of Clostridioides difficile colitis Bilateral pleural effusion Pulmonary arterial hypertension Acute respiratory distress syndrome Pressure ulcer of right heel, unstageable Shock Septic shock NSTEMI (non-ST elevated myocardial infarction) Aspiration pneumonia CHF exacerbation Pulmonary edema Acute hypoxic respiratory failure Acute encephalopathy Hypoglycemia Altered mental status Edema Decubitus ulcer of heel, unstageable Enterococcus faecalis infection Endocarditis Hypotension Chronic anemia Anemia Sepsis Urinary tract infection Afib ESRD (end stage renal disease) on dialysis Hyponatremia DM2 (diabetes mellitus, type 2) Pressure ulcer of left leg, stage 2 Pressure ulcer of right leg, stage 2 Wound of left foot Excoriation of groin Excoriation of abdomen Wound of left lower extremity Pressure ulcer of left buttock, stage 2 Pressure ulcer of right buttock, stage 2 Wound of right lower extremity Lymphedema Stasis dermatitis Pressure sore on buttocks Inability to perform activities of daily living Kidney dysfunction Fluid overload Cellulitis Hemodialysis status Temporary dialysis catheter placement Acute kidney failure Bradycardia Anasarca Bilateral lower leg cellulitis Metabolic acidosis Hyperkalemia DKA (diabetic ketoacidosis) Falls Generalized weakness FRANCISCO (acute kidney injury) CHF (congestive heart failure) Chronic respiratory failure with hypoxia COPD (chronic obstructive pulmonary disease) Social History Smoking and tobacco/nicotine status: former use of tobacco/nicotine Vitals/I&O/Wt Last Vital Signs Temp 98.0 F 10/08/23 13:50 Pulse 102 H 10/08/23 13:50 Resp 20 H 10/08/23 13:50 BP 88/53 10/08/23 14:43 Pulse Ox 98 10/08/23 13:50 O2 Del Method Nasal Cannula 10/08/23 13:50 O2 Flow Rate 3 10/08/23 13:50 10/08/23 10/08/23 10/08/23 06:59 14:59 22:59 Intake Total Balance Weight last 48 hrs Weight 136.078 kg Data 10/08/23 13:59 10/08/23 13:59 Micro: Microbiology 10/08/23 14:17 Blood Culture - Preliminary Blood SPECIMEN COLLECTED 10/08/23 14:14 Blood Culture - Preliminary Blood SPECIMEN COLLECTED Coding Level of Care Code Acute Code for Chg Fwjorge alberto
[2023-10-08] MEDS: piperacillin-tazobactam 3.375 GM in sodium chloride 0.9% (plus) 50 ML IV (18:01)
[2023-10-08 18:09] LABS: Lactic Acid level (Lactate) 2.4 mmol/L (0.5-2.2)
--- NOTE | 2023-10-08 18:59 | PC.NURSE ---
PATIENT EXPRESSED TO ME THAT HE DID NOT WANT TO CONTINUE FURTHER TREATMENT. PATIENT EDUCATED THAT HE HAS VERY LOW BLOOD PRESSURE WITHOUT LEVOPHED RUNNING. PATIENT EXPRESSED HE WANTED TO GO BACK TO THE [facility] AND THAT HE DID NOT WANT TO STAY AND CONTINUE TO BE TREATED FOR HIS BLOOD PRESSURE. PATIENT EDUCATED ON SEVERITY OF HOW LOW HIS BLOOD PRESSURE WAS PREVIOUSLY. PATIENT EDUCATED THAT HE COULD POTENTIALLY AFTER STOPPING LEVOPHED. LIBBY NOTIFIED THAT PATIENT IS REFUSING TREATMENT, BLOOD, AND WANTS TO GO BACK TO [place]. LIBBY SPOKE WITH PATIENT ABOUT DC AND THAT COULD POTENTIALLY HAPPEN. PATIENT IS STILL ADAMANT ABOUT BEING DC. PATIENT IS ALERT, ORIENTED AND UNDERSTANDS RISKS.
--- NOTE | 2023-10-08 19:21 | CTR_ITS ---
PROCEDURE INFORMATION: Exam: CTA Abdominal Aorta and Bilateral Lower Extremities (Run-off) With Contrast Exam date and time: 10/09/2023 2:40 AM Age: 62 years old Clinical indication: Other: Pad TECHNIQUE: Imaging protocol: Computed tomographic angiography of the of the abdominal aorta, pelvis and bilateral lower extremities with contrast. 3D rendering (Not supervised by radiologist): MIP and/or 3D reconstructed images were created by the technologist. Radiation optimization: All CT scans at this facility use at least one of these dose optimization techniques: automated exposure control; mA and/or kV adjustment per patient size (includes targeted exams where dose is matched to clinical indication); or iterative reconstruction. Contrast material: OMNI 350; Contrast volume: 100 ml; Contrast route: INTRAVENOUS (IV); COMPARISON: CT abdomen pelvis wo con [id number] 09/14/2023 11:25 AM RADIATION DOSE METRICS: Total DLP (mGy-cm): 902.6 FINDINGS: Aorta: Moderate burden of atherosclerotic plaque in the abdominal aorta. No aneurysm or dissection. Celiac trunk and mesenteric arteries: No occlusion or significant stenosis. Renal arteries: No occlusion or significant stenosis. Right iliac arteries: No occlusion or significant stenosis. Right femoral/popliteal arteries: Moderate to severe stenoses of the right SFA. Moderate to severe stenosis of the right popliteal artery. Right infrapopliteal arteries: The right tibioperoneal trunk is occluded with occlusion of the right posterior tibial and peroneal arteries. The right anterior tibial artery appears to be patent to the foot. Left iliac arteries: No occlusion or significant stenosis. Left femoral/popliteal arteries: Occlusion of the distal left SFA. There is reconstitution of the popliteal artery on the left. At least moderate stenosis of the left popliteal artery. Left infrapopliteal arteries: The left anterior tibial artery appears to be occluded. The left posterior tibial and peroneal arteries appear to be patent, though dense calcification limits evaluation. Lungs: Bibasilar atelectasis. Pleural spaces: Small bilateral pleural effusions. Liver: Subcentimeter low-density lesions in the liver are too small to characterize, though statistically benign. Gallbladder and bile ducts: Cholelithiasis. Query some mild edema about the gallbladder. Pancreas: Unremarkable. No mass. No ductal dilation. Spleen: Normal. No splenomegaly. Adrenal glands: Normal. No mass. Kidneys and ureters: Normal. No mass. Stomach and bowel: Unremarkable. No obstruction. No mucosal thickening. Appendix: No evidence of appendicitis. Urinary bladder: Fuentes catheter in the bladder. Reproductive: Unremarkable as visualized. Intraperitoneal space: Small volume free fluid in the pelvis. Lymph nodes: No lymphadenopathy. 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 Remote lumbar spine compression fractures. Soft tissues: Subcutaneous edema is seen in the lower legs. CT/CT angio abd aorta runof [id number] IMPRESSION: 1. Moderate to severe stenoses of the right SFA and popliteal artery. The right tibioperoneal trunk is occluded with occlusion of the right posterior tibial and peroneal arteries. The right anterior tibial artery appears to be patent to the foot. 2. Occlusion of the distal left SFA. At least moderate stenosis of the left popliteal artery. The left anterior tibial artery appears to be occluded. The left posterior tibial and peroneal arteries appear to be patent, though dense calcification limits evaluation. 3. Cholelithiasis with possible edema about the gallbladder. Consider right upper quadrant ultrasound if there are symptoms related to gallbladder pathology. 4. Small bilateral pleural effusions with bibasilar atelectasis.
--- NOTE | 2023-10-08 19:21 | USCV_ITS ---
Geronimo Barahona Age: 62 Gender: M : 1960 Exam Date: 10/08/2023 21:51 Ordering Phys: Michael Estes MD Technologist: YVAN [place] [facility] [place]: recent history of endocarditis, CHF, PULM HTN. evaluate valve. BP: 115 / 63 HR: 104 Rhythm: Atrial Fibrillation Technical Quality: Adequate MEASUREMENTS (Male / Female) Normal Values 2D ECHO LV Diastolic Diameter PLAX 4.5 cm 4.2 - 5.9 / 3.9 - 5.3 cm IVS Diastolic Thickness 1.8 cm 0.6 - 1.0 / 0.6 - 0.9 cm IVS Systolic Thickness 1.9 cm LVPW Diastolic Thickness 1.8 cm 0.6 - 1.0 / 0.6 - 0.9 cm LVPW Systolic Thickness 2.0 cm LVOT Diameter 2.1 cm LV Ejection Fraction 2D Teich 63.3 % LV Ejection Fraction MOD 2C 58.3 % LV Ejection Fraction 2C AL 58.1 % LA Diameter 4.9 cm Aorta at Sinotubular Diameter 3.0 cm IVC Diameter 3.1 cm M-MODE LA Ao Ratio MM 1.4 AV Cusp Separation MM 1.8 cm DOPPLER AV Peak Velocity 146.0 cm/s LVOT Peak Velocity 127.0 cm/s AV Area Cont Eq vti 3.2 cm squared AV Area Cont Eq pk 3.2 cm squared MV Area PHT 4.6 cm squared Mitral E to A Ratio 0.0 TR Peak Velocity 274.0 cm/s TR Peak Gradient 30.0 mmHg TV Peak E Velocity 88.0 cm/s Right Atrial Pressure 10.0 mmHg Pulmonary Artery Systolic Pressu 40.0 mmHg PV Peak Velocity 85.0 cm/s FINDINGS Left Ventricle Normal left ventricular size and systolic function, EF 63%.no regional wall motion abnormalities. Right Ventricle The right ventricle is normal in size and function. Right Atrium The right atrium is normal in size. Left Atrium Moderately increased left atrial size. Mitral Valve Thickened mitral valve. Moderate mitral annular calcification. Aortic Valve Thickened aortic valve. Echodensity in the noncoronary cusp of the aortic valve may suggest a possible healed vegetation Tricuspid Valve Trace tricuspid valve regurgitation. Pulmonic Valve No gross abnormalities noted Pericardium No pericardial effusion. Aorta Normal aortic annulus size. IVC Normal IVC dimension with <50% respiratory change of the inferior vena cava. Possible small pleural effusion on the right side CONCLUSIONS Normal left ventricular size and systolic function, EF 63%.no regional wall motion abnormalities. Moderately increased left atrial size. Thickened mitral valve. Moderate mitral annular calcification. Thickened aortic valve. Echodensity in the noncoronary cusp of the aortic valve may suggest a possible healed vegetation. Trace tricuspid valve regurgitation. There is no pericardial effusion. Consider FELICITY, to better evaluate the valve lesion, if clinically indicated Dr Ramesh Ryan MD FACC (Electronically Signed) Final Date: 09 Oct 2023 22:12 S
--- NOTE | 2023-10-08 20:46 | PC.NURSE ---
ATTEMPTED TO CALL DR. AYALA WITH NO ANSWER TO REPORT INCREASE IN TEMP AFTER RECIEVING BLOOD IN THE FIRST 30 MINS. PATIENTS INITIAL TEMP WAS 98.3, 98.3 AT 15 MINS, BUT PATIENTS TEMP AT 30 MINS SPIKED TO 99.1. AWAITING CALLBACK FROM DOCTOR FOR FURTHER ORDERS.
--- NOTE | 2023-10-08 20:53 | PC.NURSE ---
PATIENT TEMP IS REPORTED 98.6 AT THIS TIME SINCE STARTING TRANSFUSION.
--- NOTE | 2023-10-08 21:20 | P.HP_ITS ---
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 difficile currently remains on tapered vancomycin therapy, end-stage renal disease on dialysis, multiple diabetic ulcers bilateral lower extremities, left heel diabetic ulcer, history of acute on chronic anemia, history of Hemoccult positive stools, his recent history of respiratory failure, history of fluid overload, history of atrial fibrillation not on anticoagulation due to acute anemia, who presents to [facility] due to left lower limb being cool, pulseless. Currently patient is at [facility], at [place] they had noticed that the left lower extremity, was cool, clammy, no palpable pulses, change in color so he sent to the emergency room for immediate evaluation. Currently he denies any pain, no paresthesias in his left lower extremity. He has a history of chronic diabetic ulcers, left heel ulcer in his left lower extremity. He denies a history of peripheral vascular disease no history of angioplasty of bilateral extremities. In the emergency room he was found to have left SFA occlusion, hemoglobin 7.4, BNP over 34,000, CRP of 160, Pro-Frandy 0.78, lactic acid of 3.5. Currently patient is alert oriented x 3, following all commands, he really denies any pain, he is on 3 L, does report he is a bit more short of breath than normal. Chest x-ray showing pulmonary edema. Denies any fevers, no chills, no chest pain, no palpitations. He is not exactly sure if he had recent debridement of his bilateral extremities both extremities are wrapped. Review of Systems 2 Const: Denies: fever(s) or chills Card: Denies: chest pain Resp: Denies: dyspnea GI: Denies: abdominal pain : Denies: flank pain Neuro: Denies: headache(s) Medications/Allergies Home Medications Medication Instructions Recorded Confirmed Last Taken Type albuterol sulfate 2.5 mg/3 mL 2.5 mg inhalation Q4H PRN 10/03/22 10/08/23 Unknown History (0.083 %) solution for nebulization Shortness Of Breath amiodarone 200 mg tablet 200 mg PO QAM 10/03/22 10/08/23 10/08/23 History acetaminophen 325 mg tablet 650 mg PO Q6H PRN Pain 08/12/23 10/08/23 08/04/23 History bisacodyl 10 mg rectal suppository 10 mg FL DAILY PRN Constipation 08/12/23 10/08/23 Unknown History hydrocodone 5 mg-acetaminophen 325 1 tab PO Q6H PRN Pain 08/12/23 10/08/23 10/08/23 History mg tablet insulin aspart U-100 100 unit/mL See Rx Instructions .Route .COMPLEX 08/12/23 10/08/23 10/08/23 History (3 mL) subcutaneous pen (Novolog FlexPen U-100 Insulin aspart) metoprolol tartrate 50 mg tablet See Rx Instructions .Route .COMPLEX 08/12/23 10/08/23 10/08/23 History nystatin 100,000 unit/gram topical 1 applic topical DAILY 08/12/23 10/08/23 10/07/23 History powder Saccharomyces boulardii 250 mg 250 mg PO BID 09/14/23 10/08/23 10/08/23 History capsule albuterol sulfate 90 mcg/actuation 2 puff inhalation Q6H PRN 09/14/23 10/08/23 Unknown History aerosol inhaler (Ventolin HFA) Shortness Of Breath bumetanide 1 mg tablet See Rx Instructions .Route .COMPLEX 09/14/23 10/08/23 Unknown History calcium acetate 667 mg tablet 667 mg PO TID 09/14/23 10/08/23 10/08/23 History clopidogrel 75 mg tablet 75 mg PO DAILY 09/14/23 10/08/23 10/08/23 History gabapentin 100 mg capsule 100 mg PO TID 09/14/23 10/08/23 10/08/23 History vancomycin 125 mg capsule 125 mg PO TID #60 caps 09/25/23 10/08/23 10/08/23 Rx insulin glargine 100 unit/mL (3 15 unit SUBCUT QPM 10/08/23 10/08/23 10/07/23 History mL) subcutaneous pen (Lantus Solostar U-100 Insulin) metoprolol tartrate 50 mg tablet See Rx Instructions .Route .COMPLEX 10/08/23 10/08/23 10/07/23 History sevelamer carbonate 800 mg tablet 800 mg PO TID 10/08/23 10/08/23 10/08/23 History (Renvela) Allergies Allergy/AdvReac Type Severity Reaction Status Date / Time amoxicillin [From Augmentin] Allergy Mild rash Verified 09/12/23 09:18 clavulanic acid Allergy Mild rash Verified 09/12/23 09:18 [From Augmentin] levofloxacin Allergy Mild rash Verified 09/12/23 09:18 PFSH Acute 2 PFSH: Medical History (Updated 10/08/23 @ 21:36 by Michael Estes MD) Urinary tract infection CHF exacerbation History of Clostridioides difficile colitis Bilateral pleural effusion Pulmonary arterial hypertension Acute respiratory distress syndrome Pressure ulcer of right heel, unstageable Shock Septic shock NSTEMI (non-ST elevated myocardial infarction) Aspiration pneumonia Pulmonary edema Acute hypoxic respiratory failure Acute encephalopathy Hypoglycemia Altered mental status Edema Decubitus ulcer of heel, unstageable Enterococcus faecalis infection Endocarditis Hypotension Chronic anemia Anemia Sepsis Afib ESRD (end stage renal disease) on dialysis Hyponatremia DM2 (diabetes mellitus, type 2) Pressure ulcer of left leg, stage 2 Pressure ulcer of right leg, stage 2 Wound of left foot Excoriation of groin Excoriation of abdomen Wound of left lower extremity Pressure ulcer of left buttock, stage 2 Pressure ulcer of right buttock, stage 2 Wound of right lower extremity Lymphedema Stasis dermatitis Pressure sore on buttocks Inability to perform activities of daily living Kidney dysfunction Fluid overload Cellulitis Hemodialysis status Temporary dialysis catheter placement Acute kidney failure Bradycardia Anasarca Bilateral lower leg cellulitis Metabolic acidosis Hyperkalemia DKA (diabetic ketoacidosis) Falls Generalized weakness FRANCISCO (acute kidney injury) CHF (congestive heart failure) Chronic respiratory failure with hypoxia COPD (chronic obstructive pulmonary disease) Social History Smoking and tobacco/nicotine status: former use of tobacco/nicotine Vitals/I&O/Wt Last Vital Signs Temp 98.6 F 10/08/23 20:51 Pulse 101 H 10/08/23 20:51 Resp 18 10/08/23 20:51 BP 128/65 10/08/23 20:51 Pulse Ox 94 10/08/23 20:51 O2 Del Method Nasal Cannula 10/08/23 13:50 O2 Flow Rate 3 05/15/24 13:50 10/08/23 10/08/23 10/08/23 06:59 14:59 22:59 Intake Total Balance Weight last 48 hrs Weight 136.078 kg Physical Exam 2 Const: COMMON NORMALS: no acute distress and patient oriented x3 HENMT: COMMON NORMALS: normocephalic HEAD & SCALP: normocephalic Eye: COMMON NORMALS: Equal, round and reactive pupils present Neck/C-Spine: COMMON NORMALS: no JVD Chest: OTHER: Dialysis catheter in place Resp: COMMON NORMALS: normal respiratory effort, No retractions, No use of accessory muscles and clear to auscultation bilaterally AUSCULTATION: clear to auscultation bilaterally Cardio: COMMON NORMALS: regular rate, regular rhythm, S1 normal heart sound present and S2 normal heart sound present RATE: regular rate RHYTHM: r egular rhythm HEART SOUNDS: S1 normal heart sound present and S2 normal heart sound present GI: COMMON NORMALS: Normal to inspection, nondistended, normoactive bowel sounds present, Soft to palpation and non-tender Extremity: NARRATIVE EXTREMITY EXAM: 1+ edema OTHER: left Dp/Pt pulses not palpable, appear cool, clammy, pale, no mottling, no pain, multiple diabetic ulcer right lower extremity dp/pt pulses barely palpable, cap refill>2 second, no mottling, absent 1st and 2nd digit Neuro: COMMON NORMALS: patient oriented x3 Psych: COMMON NORMALS: mental status grossly normal Urinary Catheter Management: Fuentes: Cath Placed During This Visit: yes Urinary Catheter Date of Insertion: 10/08/23 Urinary Catheter Time of Insertion: 20:53 Data 10/08/23 13:59 10/08/23 13:59 Micro: Microbiology 10/08/23 14:17 Blood Culture - Preliminary Blood SPECIMEN COLLECTED 10/08/23 14:14 Blood Culture - Preliminary Blood SPECIMEN COLLECTED A&P Assessment and plan (1) Acute lower limb ischemia: (2) Arterial occlusion: (3) Congestive heart failure: Qualifiers: Heart failure chronicity: acute on chronic Heart failure type: u nspecified Qualified Code(s): I50.9 - Heart failure, unspecified (4) Sepsis: Qualifiers: Sepsis acute organ dysfunction status: unspecified Sepsis type: sepsis due to unspecified organism Qualified Code(s): A41.9 - Sepsis, unspecified organism (5) Abscess or cellulitis of foot: (6) End stage kidney disease: (7) Acute anemia: (8) GI bleed: (9) Elevated lactic acid level: (10) Urinary tract infection: Plan Acute limb ischemia ? Left lower extremity, pale, pulselessness, cool, clammy, pulses not palpable ? Duplex arterial ultrasound shows left SFA occlusion ? Plan ? Concerns for acute embolization from atrial fibrillation resulting in left SFA occlusion? Other possibilities include septic emboli from his history of endocarditis although last echocardiogram shows healed vegetations ? Spoke to patient in detail the issue is he has acute anemia hemoglobin 7.4 receiving a unit of blood, and during his last hospitalization he was found to have a slow GI bleed, requiring transfusion of blood Hemoccult positive stools, in order to treat this acute limb ischemia insulin require blood thinners before and after his procedure which might exacerbate his GI bleed, discussed the morbidity and mortality associate with limb ischemia versus GI bleed, certainly there is no perfect solution, this is a difficult situation, but currently as he is normotensive, no reported bloody or black stools, his acute limb ischemia is more of acute concern -For now he has been started on a heparin drip ? Monitor hemodynamics closely, monitor for bloody black cells monitor hemoglobin in 4 hours ? Receiving 1 unit PRBC ? Continue Plavix, statin, for now adding on aspirin with his GI bleed will carry significant risks of bleeding, especially is on heparin drip so we will hold off on aspirin for now ? Serial Dopplers, monitor left lower extremities ? Spoke to Dr. Hilton, plan on aortogram, and possible surgical intervention in the morning or based on clinical progress ? Cardiac echo ? Creatinine is 4.2, patient is a dialysis patient ? Monitor for pain, monitor lower extremity, closely monitor hemoglobin, monitor lactic acid ? Status is critical, prognosis guarded Acute on chronic anemia, concerns for GI bleed ? During his hospital hospitalization hemoglobin was low at 6.6, requiring 1 unit PRBC, his anticoagulant therapy had to be discontinued on discharge, he has a history of atrial fibrillation ? Currently hemoglobin 7.4, no complaints of blood box was no hemodynamic compromise ? Receiving 1 unit PRBC, monitor hemoglobin every 4 hours ? Receiving 1 unit PRBC History of bacterial endocarditis, history of multiple valvular vegetation including aortic, mitral ? Has completed antibiotic therapy ? Repeat cardiac echocardiogram Bilateral lower extremity diabetic ulcers, cellulitis ? On examination bilateral lower extremities have diabetic ulcers, with erythema, swelling concerning for cellulitis ? With elevated lactic acid concerning for cellulitis ? Continue vancomycin, meropenem Elevated lactic acid, ? Secondary to acute limb ischemia, slow GI bleed, cellulitis, UTI ? With history of Radha Antonio GI, history of ESBL infection ? Switch Zosyn to meropenem ? Add on Diflucan, consider micafungin Sepsis from diabetic ulcers, cellulitis, UTI Type 2 diabetes mellitus, low-dose sliding scale End-stage renal disease, on dialysis CHF, pulmonary edema seen on chest x-ray with elevated BNP over 34,000, currently on 3 L -Currently does not look like he is in respiratory distress ? Nephrology has been consulted plan on dialysis for fluid overload Atrial fibrillation, heart rates in the 112's, continue p.o. amiodarone will consider amiodarone drip Full code, confirmed with this patient multiple times ? Heparin drip ? Protonix for GI prophylaxis Attestations 2 Medical Necessity Statement*: Patient requires hospitalization, inpatient, greater than 2 midnights, for acute limb ischemia, acute on chronic anemia, GI bleed, sepsis, UTI, diabetic ulcers, cellulitis, pulm edema, CHF Coding Level of Care Code Critical Care >/= 30 minutes Critical care time (in minutes): 60 The high probability of a clinically significant, sudden or life threatening deterioration, as referenced in this documentation, required my full and direct attention, intervention and personal management. The critical care time shown is in addition to time spent performing any reported separately billable procedures and includes the following: [x] Data and vital sign review and interpretation [x ] Patient assessment, examination and intervention [x] Medication orders and management [x] Patient/Family updates as able [x] Care Coordination and Documentation. Diagnoses Acute lower limb ischemia I99.8 Arterial occlusion I70.90 Congestive heart failure I50.9 Heart failure chronicity: acute on chronic Heart failure type: unspecified Sepsis A41.9 Sepsis acute organ dysfunction status: unspecified Sepsis type: sepsis due to unspecified organism Abscess or cellulitis of foot End stage kidney disease N18.6 Acute anemia D64.9 GI bleed K92.2 Elevated lactic acid level R79.89 Urinary tract infection N39.0
[2023-10-08 21:25] LABS: Glucose Urine UA Norm (Normal); Ketones Urine 1+ (Negative); Protein Urine 3+ (Negative); Urine Appearance Cloudy (CLEAR); Urine Color Brown (Yellow); pH Urine 5 (5-7)
[2023-10-08 21:26] LABS: Add Urine Culture? Yes; Add Urine Microscopic? YES; Bacteria Urine 3+ /hpf; Bilirubin Urine 1+ (Negative); Blood Urine 3+ (Negative); Leukocyte Esterase Urine 2+ (Negative); Mucus Urine 3+ /hpf; Nitrate Urine Negative (Negative); RBC Urine 15-25 /hpf (0-2); Urobilinogen Urine 1 mg/dL (Negative); WBC Urine TOO NUMEROUS TO CNT /hpf (0-5)
[2023-10-08] MEDS: vancomycin 1,500 MG/300 ML PIGGYBACK 200 MG IV (21:46)
--- NOTE | 2023-10-08 21:50 | PC.NURSE ---
ECHO at bedside
[2023-10-08] MEDS: heparin drip 25,000 UNIT/500 ML PREMIX 38.1000000000000014 UNIT IV (23:18)
[2023-10-08 23:25] LABS: Hematocrit 28.9 % (37-53)
--- NOTE | 2023-10-08 23:45 | ECG_ITS ---
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 Measurements Intervals [place] Rate: 113 P: 186 SC: 197 QRS: 68 QRSD: 117 T: 18 QT: 335 QTc: 461 Interpretive Statements SINUS TACHYCARDIA MODERATE INTRAVENTRICULAR CONDUCTION DELAY [110+ ms QRS DURATION] ABNORMAL RHYTHM ECG Compared to ECG 10/08/2023 14:04:12 Intraventricular conduction delay now present Atrial fibrillation no longer present Myocardial infarct finding no longer present Electronically Signed On 10-09-2023 23:52:32 CDT by Ramesh Ryan M.D. [id number]
[2023-10-08 23:53] LABS: Creatine Phosphokinase 196 U/L (39-308)
[2023-10-09] VITALS (68 sets, daily range): BP systolic 90–154; BP diastolic 44–80; PULSE 111–126; RESP 13–32; TEMP 36.3–37.7; O2SAT 86–100
[2023-10-09] MEDS: fluconazole premix 100 MG/50 ML PREMIX IV ×2 (00:15→22:35)
[2023-10-09] MEDS: pantoprazole 40 mg SDV IVP ×3 (00:17→22:39)
[2023-10-09] MEDS: meropenem 1,000 MG in sodium chloride 0.9% (plus) 50 ML 100 MG IV ×3 (00:17→20:46)
[2023-10-09 00:18] LABS: Troponin(5th) Baseline 211 ng/L (0-15)
[2023-10-09] MEDS: sucralfate 1 gm/10 mL Oral Liq UDC PO (00:18)
--- NOTE | 2023-10-09 00:51 | PC.NURSE ---
Dr. Estes called troponin base 211. Also unable to wean patient of levophed from ER. Patient currently levophed with map at 66. Order was discontinued on admit, unable to titrate off. New order given to continue levophed. Troponin noted.
--- NOTE | 2023-10-09 00:54 | ECG_ITS ---
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 Measurements Intervals [place] Rate: 113 P: 248 [place]: 207 QRS: 56 QRSD: 110 T: 16 QT: 339 QTc: 466 Interpretive Statements SINUS TACHYCARDIA ABNORMAL RHYTHM ECG Compared to ECG 10/08/2023 23:45:14 Intraventricular conduction delay no longer present Electronically Signed On 10-10-2023 0:20:07 CDT by Ramesh Ryan M.D. [email or web address] [email or web address] medical [email or web address] - [email or web address] [email or web address]./store/[id number]
[2023-10-09] MEDS: norepinephrine 4 MG/250 ML BAG 15 MG IV ×2 (01:03→15:52)
[2023-10-09 01:22] LABS: Hematocrit 29.1 % (37-53)
[2023-10-09 01:48] LABS: Troponin 5 2HR Delta 8.6 ABS# (0-10)
[2023-10-09 01:55] LABS: Troponin 5 2HR 219.6 ng/L (0-15)
[2023-10-09] MEDS: iohexol 350 mg/mL 500 mL Btl (per mL) IV (03:01)
--- NOTE | 2023-10-09 03:37 | PC.NURSE ---
Patient with low o2 saturations on admission, will not answer questions, agitated. Placed on bipap to assist with oxygenation. Uncoperative with admission history.
--- NOTE | 2023-10-09 04:54 | ECG_ITS ---
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 Measurements Intervals [place] Rate: 114 P: 247 [place]: 202 QRS: 88 QRSD: 107 T: 29 QT: 332 QTc: 458 Interpretive Statements SINUS TACHYCARDIA ABNORMAL RHYTHM ECG Compared to ECG 10/09/2023 01:47:07 No significant changes Electronically Signed On 10-10-2023 0:28:38 CDT by Ramesh Ryan M.D. [email or web address] children's medical centerGenerations Home [employer]air/store/[id number]
[2023-10-09 06:12] LABS: Basophils % 0.4 %; Eosinophils % 0.3 %; Hematocrit 26.3 % (37-53); Lymphocytes # 0.5 10^3/uL (0.8-4.8); Lymphocytes % 4.6 %; Mean Corpuscular HGB Conc 30.8 g/dL (30-55); Mean Corpuscular Hemoglobin 30.1 pg (27-33); Mean Corpuscular Volume 97.8 fl (82-101); Mean Platelet Volume 10.1 fL (7.4-10.4); Monocytes # 0.4 10^3/uL (0.2-0.9); Monocytes % 4.2 %; Neutrophils # 8.94 10^3/uL (1.8-7.7); Nucleated Red Blood Cells % 0 %; Platelet Count 189 10^3/cmm (157-399); Red Blood Count 2.69 10^6/uL (3.85-5.65); Red Cell Distribution Width 17.3 % (12.1-15.1); White Blood Count 9.94 10^3/uL (3.29-11.43)
[2023-10-09] MEDS: amiodarone 200 mg Tablet PO (06:15)
[2023-10-09 06:28] LABS: Alanine Aminotransferase 7 U/L (0-41); Albumin Level 2.9 g/dL (3.5-5.2); Alkaline Phosphatase 237 U/L (40-130); Anion Gap 16.4 (5-19); Aspartate Amino Transferase 7 U/L (0-40); Blood Urea Nitrogen 25 mg/dL (8-23); Carbon Dioxide 25 mmol/L (22-29); Chloride 97 mmol/L (98-107); Globulin 2.6 g/dL (1.3-4.6); Glomerular Filtration Rate 12.8 mL/min (90-130); Glucose 177 mg/dL (65-115); Magnesium 1.8 mg/dL (1.7-2.3); Osmolality Calculated 287 mOsm/kg (285-295); Potassium 4.4 mmol/L (3.5-5.1); Sodium 134 mmol/L (136-145); Total Bilirubin 0.6 mg/dL (0.15-1.2); Total Protein 5.5 g/dL (6.6-8.7)
[2023-10-09 06:29] LABS: Troponin 5 6HR Delta 0.1 ng/L (0-12)
[2023-10-09 06:31] LABS: Creatinine Clr Calc Pharmacy 22.0691
[2023-10-09 06:32] LABS: Partial Thromboplastin Time 56.9 SECONDS (23.9-36.7)
[2023-10-09 06:34] LABS: Troponin 5 6HR 211.1 ng/L (0-15)
--- NOTE | 2023-10-09 08:33 | P.CONIM_ITS ---
Providers/Reason For Consult 2 Consulting Physician/Specialty*: kommana/Nephrology Reason for Consult*: esrd Primary Care Provider: Misty Ibrahim History of Present Illness History of Present Illness Geronimo Barahona is a 62 year old male Patient is a 62-year-old male with past medical history of end-stage renal disease on dialysis, bilateral lower extremity diabetic wounds chronic anemia, recent GI bleed chronic respiratory failure, recent endocarditis, [facility]-fib [facility] from [facility] facility due to left lower extremity being pulseless cold and clammy. Patient does have a history of peripheral vascular disease with vascular ulcers bilaterally in the legs. Patient was found to have SFA occlusion. Other lab data significant for hemoglobin of 7.4 chest x-ray showed pulmonary edema. He is on 5 L O2 currently. Review of Systems 2 Narrative: negative Medications/Allergies Home Medications Medication Instructions Recorded Confirmed Last Taken Type albuterol sulfate 2.5 mg/3 mL 2.5 mg inhalation Q4H PRN 10/03/22 10/08/23 Unknown History (0.083 %) solution for nebulization Shortness Of Breath amiodarone 200 mg tablet 200 mg PO QAM 10/03/22 10/08/23 10/08/23 History acetaminophen 325 mg tablet 650 mg PO Q6H PRN Pain 08/12/23 10/08/23 08/04/23 History bisacodyl 10 mg rectal suppository 10 mg ND DAILY PRN Constipation 08/12/23 10/08/23 Unknown History hydrocodone 5 mg-acetaminophen 325 1 tab PO Q6H PRN Pain 08/12/23 10/08/23 10/08/23 History mg tablet insulin aspart U-100 100 unit/mL See Rx Instructions .Route .COMPLEX 08/12/23 10/08/23 10/08/23 History (3 mL) subcutaneous pen (Novolog FlexPen U-100 Insulin aspart) metoprolol tartrate 50 mg tablet See Rx Instructions .Route .COMPLEX 08/12/23 10/08/23 10/08/23 History nystatin 100,000 unit/gram topical 1 applic topical DAILY 08/12/23 10/08/23 10/07/23 History powder Saccharomyces boulardii 250 mg 250 mg PO BID 09/14/23 10/08/23 10/08/23 History capsule albuterol sulfate 90 mcg/actuation 2 puff inhalation Q6H PRN 09/14/23 10/08/23 Unknown History aerosol inhaler (Ventolin HFA) Shortness Of Breath bumetanide 1 mg tablet See Rx Instructions .Route .COMPLEX 09/14/23 10/08/23 Unknown History calcium acetate 667 mg tablet 667 mg PO TID 09/14/23 10/08/23 10/08/23 History clopidogrel 75 mg tablet 75 mg PO DAILY 09/14/23 10/08/23 10/08/23 History gabapentin 100 mg capsule 100 mg PO TID 09/14/23 10/08/23 10/08/23 History vancomycin 125 mg capsule 125 mg PO TID #60 caps 09/25/23 10/08/23 10/08/23 Rx insulin glargine 100 unit/mL (3 15 unit SUBCUT QPM 10/08/23 10/08/23 10/07/23 History mL) subcutaneous pen (Lantus Solostar U-100 Insulin) metoprolol tartrate 50 mg tablet See Rx Instructions .Route .COMPLEX 10/08/23 10/08/23 10/07/23 History sevelamer carbonate 800 mg tablet 800 mg PO TID 10/08/23 10/08/23 10/08/23 History (Renvela) Allergies Allergy/AdvReac Type Severity Reaction Status Date / Time amoxicillin [From Augmentin] Allergy Mild rash Verified 09/12/23 09:18 clavulanic acid Allergy Mild rash Verified 09/12/23 09:18 [From Augmentin] levofloxacin Allergy Mild rash Verified 09/12/23 09:18 Current Medications Generic Name Dose Route Start Last Admin Trade Name Freq PRN Reason Stop Dose Admin Amiodarone HCl 200 mg 10/09/23 06:00 10/09/23 06:15 Amiodarone 200 Mg Tablet PO 200 mg QAM JAIDEN Administration Atorvastatin Calcium 40 mg 10/08/23 23:03 10/09/23 00:38 Atorvastatin 40 Mg Tablet PO Not Given BEDTIME JAIDEN Vancomycin/PEG/NADA/Lysine/Water 1,500 mg in 300 mls @ 200 mls/hr 10/08/23 16:45 10/08/23 23:20 Vancocin IV 0 mls/hr Q36H JAIDEN Titration Heparin Sodium/Sodium Chloride 25,000 unit in 500 mls @ 0 mls/hr 10/08/23 17:45 10/08/23 23:18 Heparin Drip IV 14 unit/kg/hr .Q0M JAIDEN 38.1 mls/hr Administration Protocol Per Protocol Meropenem 1,000 mg/ Sodium 50 mls @ 100 mls/hr 10/08/23 21:45 10/09/23 00:48 Chloride IV 0 mls/hr Q12H JAIDEN Titration Protocol Fluconazole 100 mg in 50 mls @ 100 mls/hr 10/08/23 23:03 10/09/23 00:45 Diflucan Premix IV 0 mls/hr Q24H JAIDEN Titration norepinephrine 4 mg in 250 mls @ 0 mls/hr 10/09/23 00:45 10/09/23 01:03 Levophed IV 4 mcg/min .Q0M JAIDEN 15 mls/hr Administration Protocol Per Protocol Pantoprazole Sodium 40 mg 10/08/23 23:03 10/09/23 00:17 Pantoprazole 40 Mg Sdv IVP 40 mg Q12H JAIDEN Administration Sevelamer Carbonate 800 mg 10/08/23 21:00 10/09/23 00:10 Sevelamer 800 Mg Tablet PO Not Given TID JAIDEN PFSH Acute 2 PFSH: Medical History (Updated 10/08/23 @ 21:36 by Michael Estes MD) Urinary tract infection CHF exacerbation History of Clostridioides difficile colitis Bilateral pleural effusion Pulmonary arterial hypertension Acute respiratory distress syndrome Pressure ulcer of right heel, unstageable Shock Septic shock NSTEMI (non-ST elevated myocardial infarction) Aspiration pneumonia Pulmonary edema Acute hypoxic respiratory failure Acute encephalopathy Hypoglycemia Altered mental status Edema Decubitus ulcer of heel, unstageable Enterococcus faecalis infection Endocarditis Hypotension Chronic anemia Anemia Sepsis Afib ESRD (end stage renal disease) on dialysis Hyponatremia DM2 (diabetes mellitus, type 2) Pressure ulcer of left leg, stage 2 Pressure ulcer of right leg, stage 2 Wound of left foot Excoriation of groin Excoriation of abdomen Wound of left lower extremity Pressure ulcer of left buttock, stage 2 Pressure ulcer of right buttock, stage 2 Wound of right lower extremity Lymphedema Stasis dermatitis Pressure sore on buttocks Inability to perform activities of daily living Kidney dysfunction Fluid overload Cellulitis Hemodialysis status Temporary dialysis catheter placement Acute kidney failure Bradycardia Anasarca Bilateral lower leg cellulitis Metabolic acidosis Hyperkalemia DKA (diabetic ketoacidosis) Falls Generalized weakness FRANCISCO (acute kidney injury) CHF (congestive heart failure) Chronic respiratory failure with hypoxia COPD (chronic obstructive pulmonary disease) Social History Smoking and tobacco/nicotine status: former use of tobacco/nicotine Vitals/I&O/Wt Last Vital Signs Temp 97.8 F 10/08/23 23:01 Pulse 116 H 10/09/23 08:31 Resp 15 10/09/23 08:00 BP 122/67 10/09/23 08:00 Pulse Ox 100 10/09/23 08:31 O2 Del Method BiPAP 10/08/23 23:45 O2 Flow Rate 14 10/08/23 23:30 FiO2 50 10/09/23 08:31 10/08/23 10/09/23 10/09/23 22:59 06:59 14:59 Intake Total 2466.25 / 2466.25 1131.25 / 3597.50 Output Total 250 / 250 Balance 2466.25 / 2466.25 881.25 / 3347.50 Weight last 48 hrs Weight 116.981 kg Weight 116.981 kg Weight 136.078 kg Physical Exam 2 Narrative: awake , alert , no distress on 5L NC Urinary Catheter Management: Fuentes: Cath Placed During This Visit: yes Reason for Continuing Indwelling Catheter: Accurate Measurement of Urinary Output in Critically Ill Patients Urinary Catheter Date of Insertion: 10/08/23 Urinary Catheter Time of Insertion: 20:53 Data 10/09/23 05:54 10/09/23 05:54 Micro: Microbiology 10/08/23 14:17 Blood Culture - Preliminary Blood SPECIMEN COLLECTED 10/08/23 14:14 Blood Culture - Preliminary Blood SPECIMEN COLLECTED A&P Assessment and plan (1) End stage kidney disease: (2) ESRD (end stage renal disease) on dialysis: 1. End-stage renal disease: On MWF schedule for dialysis, HD today Ultrafiltration as tolerated, patient currently on BIPAP 2. Acute limb ischemia - due to SFA ooclusion , plan for aortogram 3. Acute on chronic respiratory failure, on bipap 4. Anemia,recent GI bleed , CHUCK with hD 5. Recent infective endocarditis, completed IV abx overall poor prognosis Plan PER MEDIICNE Consult Attestations 2 Medical Necessity Statement: per mediicne Coding Level of Care Code Acute Code for Chg Fwd Diagnoses End stage kidney disease N18.6 ESRD (end stage renal disease) on dialysis N18.6; Z99.2
--- NOTE | 2023-10-09 08:58 | PC.NURSE ---
recieved on bipap lot of edema crackles noted bilateral unable to tolerate off bipap at this time to recieve dialysis today
[2023-10-09] MEDS: clopidogrel 75 mg Tablet PO (09:56)
[2023-10-09] MEDS: gabapentin 100 mg Capsule PO ×3 (09:56→20:29)
[2023-10-09] MEDS: vancomycin 125 mg Capsule PO ×3 (09:56→20:29)
[2023-10-09] MEDS: sevelamer 800 mg Tablet PO ×3 (09:56→20:29)
[2023-10-09 10:14] LABS: Hematocrit 26.6 % (37-53)
--- NOTE | 2023-10-09 10:43 | P.CONIM_ITS ---
Providers/Reason For Consult 2 Consulting Physician/Specialty*: Mike Hilton MD/ Interventional Cardiology Reason for Consult*: Critical limb ischemia of left lower extremity Requesting Physician: Dr Estes Attending Physician: Karlee Gutierrez MD Primary Care Provider: Misty Ibrahim History of Present Illness History of Present Illness Geronimo Barahona is a 62 year old male with past medical history of diabetes, end-stage renal disease, GI bleed, endocarditis who has sepsis. There was concern of acute limb as left lower extremity at presentation was called and pulseless. We put patient on heparin drip and temperature has improved. CTA shows a significant PAD. Interventional cardiology consulted for peripheral angiogram. Patient has nonhealing wounds on both lower extremities. Currently dressing has been applied. Review of Systems 2 General: Reports: 10 or more systems reviewed and unremarkable except in HPI and below Medications/Allergies Home Medications Medication Instructions Recorded Confirmed Last Taken Type albuterol sulfate 2.5 mg/3 mL 2.5 mg inhalation Q4H PRN 10/03/22 10/08/23 Unknown History (0.083 %) solution for nebulization Shortness Of Breath amiodarone 200 mg tablet 200 mg PO QAM 10/03/22 10/08/23 10/08/23 History acetaminophen 325 mg tablet 650 mg PO Q6H PRN Pain 08/12/23 10/08/23 08/04/23 History bisacodyl 10 mg rectal suppository 10 mg UT DAILY PRN Constipation 08/12/23 10/08/23 Unknown History hydrocodone 5 mg-acetaminophen 325 1 tab PO Q6H PRN Pain 08/12/23 10/08/23 10/08/23 History mg tablet insulin aspart U-100 100 unit/mL See Rx Instructions .Route .COMPLEX 08/12/23 10/08/23 10/08/23 History (3 mL) subcutaneous pen (Novolog FlexPen U-100 Insulin aspart) metoprolol tartrate 50 mg tablet See Rx Instructions .Route .COMPLEX 08/12/23 10/08/23 10/08/23 History nystatin 100,000 unit/gram topical 1 applic topical DAILY 08/12/23 10/08/23 10/07/23 History powder Saccharomyces boulardii 250 mg 250 mg PO BID 09/14/23 10/08/23 10/08/23 History capsule albuterol sulfate 90 mcg/actuation 2 puff inhalation Q6H PRN 09/14/23 10/08/23 Unknown History aerosol inhaler (Ventolin HFA) Shortness Of Breath bumetanide 1 mg tablet See Rx Instructions .Route .COMPLEX 09/14/23 10/08/23 Unknown History calcium acetate 667 mg tablet 667 mg PO TID 09/14/23 10/08/23 10/08/23 History clopidogrel 75 mg tablet 75 mg PO DAILY 09/14/23 10/08/23 10/08/23 History gabapentin 100 mg capsule 100 mg PO TID 09/14/23 10/08/23 10/08/23 History vancomycin 125 mg capsule 125 mg PO TID #60 caps 09/25/23 10/08/23 10/08/23 Rx insulin glargine 100 unit/mL (3 15 unit SUBCUT QPM 10/08/23 10/08/23 10/07/23 History mL) subcutaneous pen (Lantus Solostar U-100 Insulin) metoprolol tartrate 50 mg tablet See Rx Instructions .Route .COMPLEX 10/08/23 10/08/23 10/07/23 History sevelamer carbonate 800 mg tablet 800 mg PO TID 10/08/23 10/08/23 10/08/23 History (Renvela) Allergies Allergy/AdvReac Type Severity Reaction Status Date / Time amoxicillin [From Augmentin] Allergy Mild rash Verified 09/12/23 09:18 clavulanic acid Allergy Mild rash Verified 09/12/23 09:18 [From Augmentin] levofloxacin Allergy Mild rash Verified 09/12/23 09:18 Current Medications Generic Name Dose Route Start Last Admin Trade Name Freq PRN Reason Stop Dose Admin Amiodarone HCl 200 mg 10/09/23 06:00 10/09/23 06:15 Amiodarone 200 Mg Tablet PO 200 mg QAM JAIDEN Administration Atorvastatin Calcium 40 mg 10/08/23 23:03 10/09/23 00:38 Atorvastatin 40 Mg Tablet PO Not Given BEDTIME JAIDEN Clopidogrel Bisulfate 75 mg 10/09/23 09:00 10/09/23 09:56 Clopidogrel 75 Mg Tablet PO 75 mg DAILY JAIDEN Administration Gabapentin 100 mg 10/09/23 09:00 10/09/23 09:56 Gabapentin 100 Mg Capsule PO 100 mg TID JAIDEN Administration Vancomycin/PEG/NADA/Lysine/Water 1,500 mg in 300 mls @ 200 mls/hr 10/08/23 16:45 10/08/23 23:20 Vancocin IV Infused Q36H JAIDEN Infusion Heparin Sodium/Sodium Chloride 25,000 unit in 500 mls @ 0 mls/hr 10/08/23 17:45 10/08/23 23:18 Heparin Drip IV 14 unit/kg/hr .Q0M JAIDEN 38.1 mls/hr Administration Protocol Per Protocol Meropenem 1,000 mg/ Sodium 50 mls @ 100 mls/hr 10/08/23 21:45 10/09/23 09:56 Chloride IV 100 mls/hr Q12H JAIDEN Administration Protocol Fluconazole 100 mg in 50 mls @ 100 mls/hr 10/08/23 23:03 10/09/23 00:45 Diflucan Premix IV Infused Q24H JAIDEN Infusion norepinephrine 4 mg in 250 mls @ 0 mls/hr 10/09/23 00:45 10/09/23 01:03 Levophed IV 4 mcg/min .Q0M JAIDEN 15 mls/hr Administration Protocol Per Protocol Insulin Human Lispro 0 unit 10/09/23 08:00 10/09/23 08:54 Insulin Lispro 100 Unit/1 Ml SUBCUT Not Given TIDWM JAIDEN Protocol Pantoprazole Sodium 40 mg 10/08/23 23:03 10/09/23 00:17 Pantoprazole 40 Mg Sdv IVP 40 mg Q12H JAIDEN Administration Sevelamer Carbonate 800 mg 10/08/23 21:00 10/09/23 09:56 Sevelamer 800 Mg Tablet PO 800 mg TID JAIDEN Administration Vancomycin HCl 125 mg 10/09/23 09:00 10/09/23 09:56 Vancomycin 125 Mg Capsule PO 125 mg TID JAIDEN Administration PFSH Acute 2 PFSH: Medical History Urinary tract infection CHF exacerbation History of Clostridioides difficile colitis Bilateral pleural effusion Pulmonary arterial hypertension Acute respiratory distress syndrome Pressure ulcer of right heel, unstageable Shock Septic shock NSTEMI (non-ST elevated myocardial infarction) Aspiration pneumonia Pulmonary edema Acute hypoxic respiratory failure Acute encephalopathy Hypoglycemia Altered mental status Edema Decubitus ulcer of heel, unstageable Enterococcus faecalis infection Endocarditis Hypotension Chronic anemia Anemia Sepsis Afib ESRD (end stage renal disease) on dialysis Hyponatremia DM2 (diabetes mellitus, type 2) Pressure ulcer of left leg, stage 2 Pressure ulcer of right leg, stage 2 Wound of left foot Excoriation of groin Excoriation of abdomen Wound of left lower extremity Pressure ulcer of left buttock, stage 2 Pressure ulcer of right buttock, stage 2 Wound of right lower extremity Lymphedema Stasis dermatitis Pressure sore on buttocks Inability to perform activities of daily living Kidney dysfunction Fluid overload Cellulitis Hemodialysis status Temporary dialysis catheter placement Acute kidney failure Bradycardia Anasarca Bilateral lower leg cellulitis Metabolic acidosis Hyperkalemia DKA (diabetic ketoacidosis) Falls Generalized weakness FRANCISCO (acute kidney injury) CHF (congestive heart failure) Chronic respiratory failure with hypoxia COPD (chronic obstructive pulmonary disease) Social History Smoking and tobacco/nicotine status: former use of tobacco/nicotine Vitals/I&O/Wt Last Vital Signs Temp 97.8 F 10/08/23 23:01 Pulse 117 H 10/09/23 10:16 Resp 15 10/09/23 08:00 BP 122/67 10/09/23 08:00 Pulse Ox 95 10/09/23 10:16 O2 Del Method BiPAP 10/08/23 23:45 O2 Flow Rate 14 10/08/23 23:30 FiO2 30 10/09/23 10:16 10/08/23 10/09/23 10/09/23 22:59 06:59 14:59 Intake Total 2466.25 / 2466.25 1131.25 / 3597.50 Output Total 250 / 250 Balance 2466.25 / 2466.25 881.25 / 3347.50 Weight last 48 hrs Weight 257 lb 14.4 oz Weight 257 lb 14.4 oz Weight 300 lb Physical Exam 2 Narrative: GENERAL: Patient is alert, awake and oriented x3. [] NECK: No jugular vein distension. [] HEENT: No cyanosis. No icterus. No pallor. [] HEART: Regular S1 and S2. No murmur, rub or gallop. [] LUNGS: Clear to auscultate bilaterally. [] CENTRAL NERVOUS SYSTEM: Grossly nonfocal. [] EXTREMITIES: Dressing applied on both lower extremities. Overnight medicine could not obtain PT/DP pulses Urinary Catheter Management: Fuentes: Cath Placed During This Visit: yes Reason for Continuing Indwelling Catheter: Accurate Measurement of Urinary Output in Critically Ill Patients Urinary Catheter Date of Insertion: 10/08/23 Urinary Catheter Time of Insertion: 20:53 Data 10/10/23 04:33 10/10/23 04:33 Micro: Microbiology 10/08/23 14:17 Blood Culture - Preliminary Blood SPECIMEN COLLECTED 10/08/23 14:14 Blood Culture - Preliminary Blood SPECIMEN COLLECTED A&P Assessment and plan (1) Critical limb ischemia of left lower extremity: (2) End stage kidney disease: Plan Patient has ongoing sepsis. There was concern for acute limb last night. Left lower extremity temperature has improved since starting heparin drip. Continue for now. I had a detailed discussion with patient regarding all potential options. He wants to proceed with invasive workup and possible intervention. Doppler ultrasound shows occluded left SFA. Weak monophasic signals below. Has non healing diabetic ulcers on the legs with dressing applied right now. N.p.o. after midnight. Thank you for involving us with care of this patient. We will continue to follow. Please call with questions. Consult Attestations 2 Medical Necessity Statement: Care expected to cross 2 midnights. Coding Level of Care Code Acute Code for [facility] Fwd Diagnoses Critical limb ischemia of left lower extremity I70.222 End stage kidney disease N18.6
[2023-10-09 12:00] LABS: Glucose Point of Care 160 mg/dL (70-110)
[2023-10-09] MEDS: insulin lispro 100 unit/1 mL SUBCUT (12:02)
[2023-10-09] MEDS: heparin drip 25,000 UNIT/500 ML PREMIX 38.1000000000000014 UNIT IV (12:34)
--- NOTE | 2023-10-09 13:16 | P.PN_ITS ---
Subjective 2 Subjective: seen this am pt on bipap awaiting results of ct abd runoff Vitals/I&O/Wt Last Vital Signs Temp 97.3 F L 10/09/23 12:00 Pulse 117 H 10/09/23 12:00 Resp 28 H 10/09/23 12:00 BP 93/51 10/09/23 12:00 Pulse Ox 96 10/09/23 12:00 O2 Del Method BiPAP 10/09/23 12:00 O2 Flow Rate 14 10/08/23 23:30 FiO2 30 10/09/23 11:37 10/08/23 10/09/23 10/09/23 22:59 06:59 14:59 Intake Total 2466.25 / 2466.25 1131.25 / 3597.50 500 / 500 Output Total 250 / 250 Balance 2466.25 / 2466.25 881.25 / 3347.50 500 / 500 Weight last 48 hrs Weight 116.981 kg Weight 116.981 kg Weight 136.078 kg Physical Exam 2 Const: COMMON NORMALS: no acute distress and patient oriented x3 HENMT: COMMON NORMALS: normocephalic HEAD & SCALP: normocephalic Eye: COMMON NORMALS: Equal, round and reactive pupils present PUPIL: Yes Equal, round and reactive pupils present Neck/C-Spine: COMMON NORMALS: no JVD Chest: OTHER: Dialysis catheter in place Resp: COMMON NORMALS: normal respiratory effort, No retractions, No use of accessory muscles and clear to auscultation bilaterally AUSCULTATION: clear to auscultation bilaterally Cardio: COMMON NORMALS: no JVD, regular rate, regular rhythm, S1 normal heart sound present and S2 normal heart sound present RATE: regular rate RHYTHM: regular rhythm HEART SOUNDS: S1 normal heart sound present and S2 normal heart sound present GI: COMMON NORMALS: Normal to inspection, nondistended, normoactive bowel sounds present, Soft to palpation and non-tender PALPATION: Yes Soft to palpation Extremity: NARRATIVE EXTREMITY EXAM: 1+ edema OTHER: left Dp/Pt pulses not palpable, appear cool, clammy, pale, no mottling, no pain, multiple diabetic ulcer right lower extremity dp/pt pulses barely palpable, cap refill>2 second, no mottling, absent 1st and 2nd digit Neuro: COMMON NORMALS: patient oriented x3 Psych: COMMON NORMALS: mental status grossly normal Urinary Catheter Management: Fuentes: Cath Placed During This Visit: yes Reason for Continuing Indwelling Catheter: Accurate Measurement of Urinary Output in Critically Ill Patients Urinary Catheter Date of Insertion: 10/08/23 Urinary Catheter Time of Insertion: 20:53 Data 10/09/23 09:43 10/09/23 05:54 Micro: Microbiology 10/08/23 14:17 Blood Culture - Preliminary Blood SPECIMEN COLLECTED 10/08/23 14:14 Blood Culture - Preliminary Blood SPECIMEN COLLECTED A&P Assessment and plan (1) Acute lower limb ischemia: (2) Arterial occlusion: (3) Congestive heart failure: Qualifiers: Heart failure chronicity: acute on chronic Heart failure type: u nspecified Qualified Code(s): I50.9 - Heart failure, unspecified (4) Sepsis: Qualifiers: Sepsis acute organ dysfunction status: unspecified Sepsis type: sepsis due to unspecified organism Qualified Code(s): A41.9 - Sepsis, unspecified organism (5) Abscess or cellulitis of foot: (6) End stage kidney disease: (7) Acute anemia: (8) GI bleed: (9) Elevated lactic acid level: (10) Urinary tract infection: Plan Acute limb ischemia - RULED OUT Chronic PAD ? Left lower extremity, pale, pulselessness, cool, clammy, pulses not palpable ? Duplex arterial ultrasound shows left SFA occlusion ? Plan ? Concerns for acute embolization from atrial fibrillation resulting in left SFA occlusion? Other possibilities include septic emboli from his history of endocarditis although last echocardiogram shows healed vegetations ? Spoke to patient in detail the issue is he has acute anemia hemoglobin 7.4 receiving a unit of blood, and during his last hospitalization he was found to have a slow GI bleed, requiring transfusion of blood Hemoccult positive stools, in order to treat this acute limb ischemia insulin require blood thinners before and after his procedure which might exacerbate his GI bleed, discussed the morbidity and mortality associate with limb ischemia versus GI bleed, certainly there is no perfect solution, this is a difficult situation, but currently as he is normotensive, no reported bloody or black stools, his acute limb ischemia is more of acute concern -For now he has been started on a heparin drip ? Monitor hemodynamics closely, monitor for bloody black cells monitor hemoglobin in 4 hours ? Receiving 1 unit PRBC ? Continue Plavix, statin, for now adding on aspirin with his GI bleed will carry significant risks of bleeding, especially is on heparin drip so we will hold off on aspirin for now ? Serial Dopplers, monitor left lower extremities ? Spoke to Dr. Hilton, plan on aortogram, and possible surgical intervention in the morning or based on clinical progress ? Cardiac echo ? Creatinine is 4.2, patient is a dialysis patient ? Monitor for pain, monitor lower extremity, closely monitor hemoglobin, monitor lactic acid ? Status is critical, prognosis guarded Acute on chronic anemia, concerns for GI bleed ? During his hospital hospitalization hemoglobin was low at 6.6, requiring 1 unit PRBC, his anticoagulant therapy had to be discontinued on discharge, he has a history of atrial fibrillation ? Currently hemoglobin 7.4, no complaints of blood box was no hemodynamic compromise ? Receiving 1 unit PRBC, monitor hemoglobin every 4 hours ? Receiving 1 unit PRBC History of bacterial endocarditis, history of multiple valvular vegetation including aortic, mitral ? Has completed antibiotic therapy ? Repeat cardiac echocardiogram Bilateral lower extremity diabetic ulcers, cellulitis ? On examination bilateral lower extremities have diabetic ulcers, with erythema, swelling concerning for cellulitis ? With elevated lactic acid concerning for cellulitis ? Continue vancomycin, meropenem Elevated lactic acid, ? Secondary to acute limb ischemia, slow GI bleed, cellulitis, UTI ? With history of [facility], history of ESBL infection ? Switch Zosyn to meropenem ? Add on Diflucan, consider micafungin Sepsis from diabetic ulcers, cellulitis, UTI Type 2 diabetes mellitus, low-dose sliding scale End-stage renal disease, on dialysis CHF, pulmonary edema seen on chest x-ray with elevated BNP over 34,000, currently on 3 L -Currently does not look like he is in respiratory distress ? Nephrology has been consulted plan on dialysis for fluid overload Atrial fibrillation, heart rates in the 112's, continue p.o. amiodarone will consider amiodarone drip Full code, confirmed with this patient multiple times ? Heparin drip ? Protonix for GI prophylaxis Todays plan 10/08 - acute limb ischemia unlikely. patient's legs are warm. CT abdomen run off shows: 1. Moderate to severe stenoses of the right SFA and popliteal artery. The right tibioperoneal trunk is occluded with occlusion of the right posterior tibial and peroneal arteries. The right anterior tibial artery appears to be patent to the foot. 2. Occlusion of the distal left SFA. At least moderate stenosis of the left popliteal artery. The left anterior tibial artery appears to be occluded. The left posterior tibial and peroneal arteries appear to be patent, though dense calcification limits evaluation. 3. Cholelithiasis with possible edema about the gallbladder. Consider right upper quadrant ultrasound if there are symptoms related to gallbladder pathology. 4. Small bilateral pleural effusions with bibasilar atelectasis. - Discussed with dr. hilton;. NPO at midnight today - plan for peripheral angiogram in AM - will order diet for today - COntinue dialysis as per nephro recs - Continue meropenem diflucan - repeat labs in AM. Attestations 2 Medical Necessity Statement*: Patient requires hospitalization, inpatient, greater than 2 midnights, for acute limb ischemia, acute on chronic anemia, GI bleed, sepsis, UTI, diabetic ulcers, cellulitis, pulm edema, CHF Diagnoses Acute lower limb ischemia I99.8 Arterial occlusion I70.90 Congestive heart failure I50.9 Heart failure chronicity: acute on chronic Heart failure type: unspecified Sepsis A41.9 Sepsis acute organ dysfunction status: unspecified Sepsis type: sepsis due to unspecified organism Abscess or cellulitis of foot End stage kidney disease N18.6 Acute anemia D64.9 GI bleed K92.2 Elevated lactic acid level R79.89 Urinary tract infection N39.0
[2023-10-09 13:26] LABS: Hematocrit 23.9 % (37-53)
[2023-10-09 13:41] LABS: Partial Thromboplastin Time 56.6 SECONDS (23.9-36.7)
[2023-10-09] MEDS: epoetin alfa 1000 Unit/0.05 mL (ESRD) 20000 UNIT IVP (16:38)
[2023-10-09 17:45] LABS: Glucose Point of Care 117 mg/dL (70-110)
--- NOTE | 2023-10-09 17:55 | PC.NURSE ---
evening insulin not given at this time dialysisi in progress and remain unable to tolerate off bipap.. will attempt after fluid removed
[2023-10-09 20:19] LABS: Partial Thromboplastin Time 67.6 SECONDS (23.9-36.7)
[2023-10-09] MEDS: atorvastatin 40 mg Tablet PO (20:29)
[2023-10-09 20:58] LABS: Glucose Point of Care 128 mg/dL (70-110)
[2023-10-09] MEDS: HYDROcodone-acetaminophen 5-325 mg Tablet 1 TAB PO (22:30)
--- NOTE | 2023-10-09 23:41 | PC.NURSE ---
Reported by day shift to have pulled out right arm iv.
[2023-10-10] VITALS (43 sets, daily range): BP systolic 84–142; BP diastolic 42–74; PULSE 117–124; RESP 12–29; TEMP 36.4; O2SAT 61–100
[2023-10-10] MEDS: heparin drip 25,000 UNIT/500 ML PREMIX 38.1000000000000014 UNIT IV (01:47)
[2023-10-10] MEDS: norepinephrine 4 MG/250 ML BAG 15 MG IV (01:48)
[2023-10-10] MEDS: vancomycin 1,500 MG/300 ML PIGGYBACK 200 MG IV (04:41)
[2023-10-10 05:04] LABS: Basophils # 0.1 10^3/uL (0.0-0.1); Basophils % 0.5 %; Eosinophils # 0.1 10^3/uL (0.0-0.8); Eosinophils % 0.8 %; Lymphocytes # 0.5 10^3/uL (0.8-4.8); Lymphocytes % 4.4 %; Mean Corpuscular Hemoglobin 29.5 pg (27-33); Mean Corpuscular Volume 98.5 fl (82-101); Mean Platelet Volume 10.2 fL (7.4-10.4); Monocytes # 0.7 10^3/uL (0.2-0.9); Neutrophils # 8.99 10^3/uL (1.8-7.7); Neutrophils % 86.8 %; Nucleated Red Blood Cells % 0 %; Platelet Count 201 10^3/cmm (157-399); Red Blood Count 2.64 10^6/uL (3.85-5.65); White Blood Count 10.35 10^3/uL (3.29-11.43)
--- NOTE | 2023-10-10 05:17 | XACV_ITS ---
Exam Room: [facility] Ht: 183 cm Wt: 117 kg BSA: 2.47 m2 Gender: Male : 1960 Any Known Allergies: Other Exam Priority: Routine Procedure(s): Procedure Description: Diagnostic procedure Procedure Description: Peripheral Cath Diagnostic Procedure Procedure Description: Abdominal aortic angiography Procedure Description: Lower extremities' angiography Procedure Description: Miscellaneous Procedure Description: ACT Abdominal Diagnostic Findings Distal abdominal aorta: Patent. Lower Extremity Diagnostic Findings INDICATION: Critical limb ischemia of left lower extremity. Left lower extremity findings: Left common iliac artery is patent. Left external iliac artery is patent. Left internal iliac artery is patent. Left common femoral artery is patent. Left profunda artery is patent. Left SFA is subtotally occluded in the mid segment and very heavily calcified. Patient has collaterals around this segment. Left popliteal artery is patent. Below the knee , posterior tibial artery is patent to the foot. Anterior tibial artery and peroneal arteries are occluded. Anterior tibial artery reconstitutes via collaterals.. Conclusions Severe left lower extremity peripheral artery disease. No evidence of acute limb. Patient has good single vessel runoff to foot. SFA is subtotally occluded in mid segment with collaterals around it. Medical therapy recommended. Recommendations Aggressive risk factor modifications. Pressures Phase:Rest AO : 111 / 51 ( 74 ) @ 7:35:00 AM Hemodynamic Data Phase:Rest AO : 111.0 / 51.0 ( 74.0 ) @ 7:35:00 AM Clinical Evaluation EBL: 5mL-10mL Procedural Details Procedure Consent Obtained. Pre-Procedure Time Out. Identified patient by full name and date of as verbalized by the patient/guarantor. Does the consent match the physician's order: Yes. Accurate & Complete Informed Consent: Yes. Inpatient/Outpatient History & Physical on Chart: Yes. If H&P is completed, is and addenduem needed: No; If yes, is the addendum complete: N/A. Visualize and Verify Site with Patient/Guarantor: N/A. Relevant Radiology Images available: Yes. Pre-op teaching completed and patient verbalized understanding. The risks, benefits, and alternatives of sedation and/or procedure were discussed by physician. The patient agrees to continue. Procedure started. IV Site on Arrival: 18 gauge in the left anticubital. IV Fluids: 0.9% NaCl at KVO. 0 mL infused prior to clinical laboratory director. Oxygen started at 6liters/min via nasal canula. bilateral groins was prepped with chloroprep then draped in the usual sterile fashion. Physician arrived. Baseline sample Acquired. HR: 120 BPM. Patient placed on an oxymask. Physician scrubbed in. Immediate Pre-Procedure Time Out. Correct Patient: Yes; Correct Procedure: Yes; Correct Site: Yes; Correct Patient Position: Yes; Correct Supplies: Yes; Dried Flammable Prep: Yes; Blood Products Available: N/A;. Lidocaine 1% infiltrated to the right groin. Arterial access obtained with micropuncture set. A 5FrFr UF catheter in over wire. Abdominal aortogram with runoff performed in AP @ 10 mL/sec for a total of 30 mL. Glidewire inserted through the catheter and advanced to the left iliac. DSA performed on the left lower leg. DSA performed on the left foot. Catheter removed over the glide wire. ACT drawn. Results 135 seconds. Therapeutic limits - pre-heparin administration 90-150 seconds and monitoring heparin during a vascular procedure >250 seconds. A Right femoral angiogram was performed to determine safe placement of closure device. A Mynx was successful obtaining hemostatsis at the Right Femoral artery insertion site. Post Procedure: Pulses reassessed and unchanged. PERRLA. Strong, equal hand underwriting operations manager bilaterally. No VTE prophylaxis required. Medication's Wasted: Other = Fentanyl 75mcg Versed 1 mg. Medication's Wasted: Lidocaine 1% = 12 mL. Total IV fluids: 35 mL. Vital chart was stopped. Post-op diagnosis: PAD. Complications: None. Estimated blood loss: 5mL-10mL. Responsiveness - Normal response to verbal stimuli; alert and oriented, PERRLA. Airway - Unaffected, no intervention required; spontaneous ventilation. Circulation: W/N/L, pulses unchanged. Nausea/Vomiting: No. Procedure completed. Patient transferred by bed to ICU. Access Site Site: Right Femoral artery Sheath Size: 6 Fr Hemostasis Method: Mynx Hemostasis Success: Successful Procedure Medications Start: 6:32 AM Stop: 6:32 AM Medication: Versed Amount: 1 mg Route: I.V. Start: 6:33 AM Stop: 6:33 AM Medication: Fentanyl Amount: 25 mcg Route: I.V. I, the attending physician, have reviewed and verified all procedure medications. Yes, all medications given per verbal order History/Risk Factors Hypertension: No Dyslipidemia: Yes Peripheral Arterial Disease (PAD): Yes Myocardial Infarction (DC): No Obesity: No Renal Disease: No Tobacco Use: Former Prior Interventions PCI: No CABG: No Valve Surgery: No Report Signatures Finalized by Mike Hilton MD on 10/19/2023 02:30 PM
[2023-10-10 05:21] LABS: Anion Gap 17.1 (5-19); Blood Urea Nitrogen 19 mg/dL (8-23); Calcium 8.3 mg/dL (8.5-10.5); Carbon Dioxide 26 mmol/L (22-29); Chloride 98 mmol/L (98-107); Glomerular Filtration Rate 19.2 mL/min (90-130); Glucose 144 mg/dL (65-115); Magnesium 1.8 mg/dL (1.7-2.3); Osmolality Calculated 289 mOsm/kg (285-295); Potassium 4.1 mmol/L (3.5-5.1); Sodium 137 mmol/L (136-145)
[2023-10-10] MEDS: amiodarone 200 mg Tablet PO (05:35)
[2023-10-10 05:36] LABS: Creatinine Clr Calc Pharmacy 30.9615
[2023-10-10] MEDS: morphine 4 mg/mL SDV 1 mL 1 MG IVP ×3 (05:44→23:42)
[2023-10-10 06:03] LABS: Partial Thromboplastin Time 58.8 SECONDS (23.9-36.7)
--- NOTE | 2023-10-10 06:05 | PC.NURSE ---
tag and label cutter into department to picking machine operator Patient for procedure this am. Patient didn't sign consent as told this nurse he had not spoken to doctor about this procedure. Patient c/o bilateral foot/ leg pain 6/10 given 1 mg morphine for this. Patient was not on surgical list this pm, premeds not given due to this reason. Cath staff reports will be given in cath holding. Patient did have bath and CHG skin prep completed prior to picking machine operator. Patient transported via bed by cook house laborer staff out of department.
--- NOTE | 2023-10-10 06:27 | W.PM.OPSUD ---
Surgery/Procedure H&P Update DATE OF PROCEDURE: October 10, 2023 DATE H&P PERFORMED: 10/09/23 H&P UPDATE INFORMATION: I have reviewed H&P completed within last 30 days, I have examined patient prior to procedure and No changes to prior documentation PREOP DIAGNOSIS: Critical limb ischemia of left lower extremity PRIMARY INDICATION FOR PROCEDURE: Critical limb ischemia of left lower extremity PLANNED PROCEDURE: Peripheral angiogram with possible intervention PATIENT REASSESSED PRIOR TO SEDATION, WITH NO CHANGE NOTED: Yes PHYSICAL EXAM: alert, oriented x 3 and clear to auscultation bilaterally OTHER PERTINENT EXAM FINDINGS: Tachycardic, irregularly irregular AIRWAY EVAL/ANESTHESIA PLAN: normal airway, ASA IV, Local Anesthesia, Risks, benefits & alternatives of sedation and/or procedure discussed and Patient agrees to continue as planned ADDITIONAL INFORMATION: Moderate sedation
--- NOTE | 2023-10-10 06:56 | P.PN_ITS ---
Subjective 2 Subjective: Patient is sleepy. No active leg pain. Peripheral angiogram performed today that showed very heavily calcified, serial stenoses of the left SFA. Has some collaterals already formed. Has single vessel runoff to the foot through posterior tibial artery. Vitals/I&O/Wt Last Vital Signs Temp 97.6 F 10/10/23 04:00 Pulse 121 H 10/10/23 05:27 Resp 18 10/10/23 05:44 BP 119/56 10/10/23 04:00 Pulse Ox 99 10/10/23 05:44 O2 Del Method BiPAP 10/10/23 04:00 O2 Flow Rate 4 10/09/23 20:00 FiO2 30 10/10/23 04:00 10/09/23 10/09/23 10/10/23 14:59 22:59 06:59 Intake Total 604.61 / 604.61 1134.735 / 1739.345 424.780 / 2164.125 Output Total 3489 / 3489 300 / 3789 Balance 604.61 / 604.61 -2354.265 / -1749.655 124.780 / -1624.875 Weight last 48 hrs Weight 250 lb 3.2 oz Weight 252 lb 13.923 oz Weight 257 lb 14.4 oz Weight 257 lb 14.4 oz Weight 300 lb Physical Exam 2 Narrative: GENERAL: Patient is alert, awake and oriented x3. [] NECK: No jugular vein distension. [] HEENT: No cyanosis. No icterus. No pallor. [] HEART: Regular S1 and S2. No murmur, rub or gallop. [] LUNGS: Clear to auscultate bilaterally. [] CENTRAL NERVOUS SYSTEM: Grossly nonfocal. [] EXTREMITIES: Dressing applied on both lower extremities. Overnight medicine could not obtain PT/DP pulses Urinary Catheter Management: Fuentes: Cath Placed During This Visit: yes Reason for Continuing Indwelling Catheter: Accurate Measurement of Urinary Output in Critically Ill Patients Urinary Catheter Date of Insertion: 10/08/23 Urinary Catheter Time of Insertion: 20:53 Data 10/10/23 04:33 10/10/23 04:33 Micro: Microbiology 10/08/23 14:17 Blood Culture - Preliminary Blood NEGATIVE TO DATE 10/08/23 14:14 Blood Culture - Preliminary Blood NEGATIVE TO DATE A&P Assessment and plan (1) Critical limb ischemia of left lower extremity: (2) End stage kidney disease: Plan Patient had peripheral angiogram with serial heavily calcified >95% stenosis in the mid to distal SFA. Already has collaterals forming. Below the knee has single runoff through the posterior tibial artery. Flow to foot is present. No concern for acute limb/ total occlusion. As these changes are chronic, patient's quality of life is limited (previously was considered for comfort care), risk of intervention with arthrectomy in setting of single vessel run off outweighs benefit he will get from high risk intervention. Recommend medical therapy. Can continue on anticoagulation if he tolerates. Sepsis treatment per primary team Thank you for involving us with care of this patient. We will continue to follow. Please call with questions. Attestations 2 Medical Necessity Statement*: Care expected to cross 2 midnights. Coding Level of Care Code Acute Code for Chg Fwd Diagnoses Critical limb ischemia of left lower extremity I70.222 End stage kidney disease N18.6
--- NOTE | 2023-10-10 08:00 | PC.NURSE ---
back from label tacker 8 L oxy mask sat 100% reduced to 4 L sat 96
[2023-10-10 08:42] LABS: Glucose Point of Care 197 mg/dL (70-110)
[2023-10-10] MEDS: insulin lispro 100 unit/1 mL SUBCUT (08:51)
[2023-10-10] MEDS: clopidogrel 75 mg Tablet PO (08:52)
[2023-10-10] MEDS: meropenem 1,000 MG in sodium chloride 0.9% (plus) 50 ML 100 MG IV ×2 (08:52→21:09)
[2023-10-10] MEDS: gabapentin 100 mg Capsule PO ×3 (08:52→21:09)
[2023-10-10] MEDS: vancomycin 125 mg Capsule PO ×3 (08:52→21:09)
[2023-10-10] MEDS: sevelamer 800 mg Tablet PO ×3 (08:52→21:09)
[2023-10-10 10:49] LABS: Glucose Point of Care 131 mg/dL (70-110)
[2023-10-10] MEDS: pantoprazole 40 mg SDV IVP ×2 (10:49→23:43)
[2023-10-10] MEDS: HYDROcodone-acetaminophen 5-325 mg Tablet 1 TAB PO ×2 (10:49→21:50)
--- NOTE | 2023-10-10 11:33 | P.PN_ITS ---
Subjective 2 Subjective: seen today pt went for angiogram today no intervention performed pt and family member updated at bedside Vitals/I&O/Wt Last Vital Signs Temp 97.6 F 10/10/23 04:00 Pulse 120 H 10/10/23 10:01 Resp 24 H 10/10/23 08:30 BP 130/62 10/10/23 08:30 Pulse Ox 97 10/10/23 10:01 O2 Del Method Oxymask 10/10/23 07:44 O2 Flow Rate 4 10/10/23 07:44 FiO2 30 10/10/23 10:01 10/09/23 10/10/23 10/10/23 22:59 06:59 14:59 Intake Total 1134.735 / 1739.345 424.780 / 2164.125 105.25 / 105.25 Output Total 3489 / 3489 300 / 3789 Balance -2354.265 / -1749.655 124.780 / -1624.875 105.25 / 105.25 Weight last 48 hrs Weight 113.489 kg Weight 114.7 kg Weight 116.981 kg Weight 116.981 kg Weight 136.078 kg Physical Exam 2 Const: COMMON NORMALS: no acute distress and patient oriented x3 HENMT: COMMON NORMALS: normocephalic HEAD & SCALP: normocephalic Eye: COMMON NORMALS: Equal, round and reactive pupils present PUPIL: Yes Equal, round and reactive pupils present Neck/C-Spine: COMMON NORMALS: no JVD Chest: OTHER: Dialysis catheter in place Resp: COMMON NORMALS: normal respiratory effort, No retractions, No use of accessory muscles and clear to auscultation bilaterally AUSCULTATION: clear to auscultation bilaterally Cardio: COMMON NORMALS: no JVD, regular rate, regular rhythm, S1 normal heart sound present and S2 normal heart sound present RATE: regular rate RHYTHM: regular rhythm HEART SOUNDS: S1 normal heart sound present and S2 normal heart sound present GI: COMMON NORMALS: Normal to inspection, nondistended, normoactive bowel sounds present, Soft to palpation and non-tender PALPATION: Yes Soft to palpation Extremity: NARRATIVE EXTREMITY EXAM: 1+ edema OTHER: both legs well warm perfused. Neuro: COMMON NORMALS: patient oriented x3 Psych: COMMON NORMALS: mental status grossly normal Urinary Catheter Management: Fuentes: Cath Placed During This Visit: yes Reason for Continuing Indwelling Catheter: Accurate Measurement of Urinary Output in Critically Ill Patients Urinary Catheter Date of Insertion: 10/08/23 Urinary Catheter Time of Insertion: 20:53 Data 10/10/23 04:33 10/10/23 04:33 Micro: Microbiology 10/08/23 14:17 Blood Culture - Preliminary Blood NEGATIVE TO DATE 10/08/23 14:14 Blood Culture - Preliminary Blood NEGATIVE TO DATE A&P Assessment and plan (1) Acute lower limb ischemia: (2) Arterial occlusion: (3) Congestive heart failure: Qualifiers: Heart failure chronicity: acute on chronic Heart failure type: u nspecified Qualified Code(s): I50.9 - Heart failure, unspecified (4) Sepsis: Qualifiers: Sepsis acute organ dysfunction status: unspecified Sepsis type: sepsis due to unspecified organism Qualified Code(s): A41.9 - Sepsis, unspecified organism (5) Abscess or cellulitis of foot: (6) End stage kidney disease: (7) Acute anemia: (8) GI bleed: (9) Elevated lactic acid level: (10) Urinary tract infection: Plan Acute limb ischemia - RULED OUT Chronic PAD ? Left lower extremity, pale, pulselessness, cool, clammy, pulses not palpable ? Duplex arterial ultrasound shows left SFA occlusion ? Plan ? Concerns for acute embolization from atrial fibrillation resulting in left SFA occlusion? Other possibilities include septic emboli from his history of endocarditis although last echocardiogram shows healed vegetations ? Spoke to patient in detail the issue is he has acute anemia hemoglobin 7.4 receiving a unit of blood, and during his last hospitalization he was found to have a slow GI bleed, requiring transfusion of blood Hemoccult positive stools, in order to treat this acute limb ischemia insulin require blood thinners before and after his procedure which might exacerbate his GI bleed, discussed the morbidity and mortality associate with limb ischemia versus GI bleed, certainly there is no perfect solution, this is a difficult situation, but currently as he is normotensive, no reported bloody or black stools, his acute limb ischemia is more of acute concern -For now he has been started on a heparin drip ? Monitor hemodynamics closely, monitor for bloody black cells monitor hemoglobin in 4 hours ? Receiving 1 unit PRBC ? Continue Plavix, statin, for now adding on aspirin with his GI bleed will carry significant risks of bleeding, especially is on heparin drip so we will hold off on aspirin for now ? Serial Dopplers, monitor left lower extremities ? Spoke to Dr. Hilton, plan on aortogram, and possible surgical intervention in the morning or based on clinical progress ? Cardiac echo ? Creatinine is 4.2, patient is a dialysis patient ? Monitor for pain, monitor lower extremity, closely monitor hemoglobin, monitor lactic acid ? Status is critical, prognosis guarded Acute on chronic anemia, concerns for GI bleed ? During his hospital hospitalization hemoglobin was low at 6.6, requiring 1 unit PRBC, his anticoagulant therapy had to be discontinued on discharge, he has a history of atrial fibrillation ? Currently hemoglobin 7.4, no complaints of blood box was no hemodynamic compromise ? Receiving 1 unit PRBC, monitor hemoglobin every 4 hours ? Receiving 1 unit PRBC History of bacterial endocarditis, history of multiple valvular vegetation including aortic, mitral ? Has completed antibiotic therapy ? Repeat cardiac echocardiogram Bilateral lower extremity diabetic ulcers, cellulitis ? On examination bilateral lower extremities have diabetic ulcers, with erythema, swelling concerning for cellulitis ? With elevated lactic acid concerning for cellulitis ? Continue vancomycin, meropenem Elevated lactic acid, ? Secondary to acute limb ischemia, slow GI bleed, cellulitis, UTI ? With history of Radha Antonio GI, history of ESBL infection ? Switch Zosyn to meropenem ? Add on Diflucan, consider micafungin Sepsis from diabetic ulcers, cellulitis, UTI Type 2 diabetes mellitus, low-dose sliding scale End-stage renal disease, on dialysis CHF, pulmonary edema seen on chest x-ray with elevated BNP over 34,000, currently on 3 L -Currently does not look like he is in respiratory distress ? Nephrology has been consulted plan on dialysis for fluid overload Atrial fibrillation, heart rates in the 112's, continue p.o. amiodarone will consider amiodarone drip Full code, confirmed with this patient multiple times ? Heparin drip ? Protonix for GI prophylaxis Todays plan 10/09 - acute limb ischemia unlikely. patient's legs are warm. CT abdomen run off shows: 1. Moderate to severe stenoses of the right SFA and popliteal artery. The right tibioperoneal trunk is occluded with occlusion of the right posterior tibial and peroneal arteries. The right anterior tibial artery appears to be patent to the foot. 2. Occlusion of the distal left SFA. At least moderate stenosis of the left popliteal artery. The left anterior tibial artery appears to be occluded. The left posterior tibial and peroneal arteries appear to be patent, though dense calcification limits evaluation. 3. Cholelithiasis with possible edema about the gallbladder. Consider right upper quadrant ultrasound if there are symptoms related to gallbladder pathology. 4. Small bilateral pleural effusions with bibasilar atelectasis. - Discussed with dr. hilton;. Had peripheral angiogram today. See cardiology note. - COntinue dialysis as per nephro recs - Continue meropenem diflucan - repeat labs in AM. _ restart pt's metoprolol . pt tachycardic. due to soft pressures, lopressor was held Attestations 2 Medical Necessity Statement*: Care expected to cross 2 midnights. Diagnoses Acute lower limb ischemia I99.8 Arterial occlusion I70.90 Congestive heart failure I50.9 Heart failure chronicity: acute on chronic Heart failure type: unspecified Sepsis A41.9 Sepsis acute organ dysfunction status: unspecified Sepsis type: sepsis due to unspecified organism Abscess or cellulitis of foot End stage kidney disease N18.6 Acute anemia D64.9 GI bleed K92.2 Elevated lactic acid level R79.89 Urinary tract infection N39.0
[2023-10-10] MEDS: metoprolol tartrate 25 mg Tablet PO ×2 (12:25→21:09)
[2023-10-10 12:30] LABS: Partial Thromboplastin Time 25.1 SECONDS (23.9-36.7)
[2023-10-10 16:22] LABS: Glucose Point of Care 94 mg/dL (70-110)
[2023-10-10] MEDS: heparin drip 25,000 UNIT/500 ML PREMIX 38 UNIT IV (17:05)
--- NOTE | 2023-10-10 17:09 | PC.NURSE ---
shift summary: uneventful shift, patient not wanting to participate in pt or move around in bed, upon admission to unit heparin drip on mar at 38 mls pump showed 58 mls/hr mar was corrected
[2023-10-10] MEDS: insulin glargine 100 units/1 mL 15 UNIT SUBCUT (17:24)
[2023-10-10 18:46] LABS: Partial Thromboplastin Time 42.3 SECONDS (23.9-36.7)
--- NOTE | 2023-10-10 18:58 | PC.NURSE ---
uneventful shift, did not want to work with pt or move around in bed, no c/o at this time
[2023-10-10] MEDS: atorvastatin 40 mg Tablet PO (21:09)
--- NOTE | 2023-10-10 22:13 | PM.PN ---
Subjective Subjective: on 5L NC Medications: Reviewed: Yes Vitals/I&O/Wt Last Vital Signs Temp 97.6 F 10/10/23 04:00 Pulse 120 H 10/10/23 20:00 Resp 16 10/10/23 20:00 BP 102/56 10/10/23 20:00 Pulse Ox 94 10/10/23 20:00 O2 Del Method Oxymask 10/10/23 07:44 O2 Flow Rate 4 10/10/23 07:44 FiO2 30 10/10/23 13:09 10/10/23 10/10/23 10/10/23 06:59 14:59 22:59 Intake Total 424.780 / 2164.125 614.125 / 614.125 350 / 964.125 Output Total 300 / 3789 200 / 200 Balance 124.780 / -1624.875 614.125 / 614.125 150 / 764.125 Weight last 48 hrs Weight 113.489 kg Weight 114.7 kg Weight 116.981 kg Weight 116.981 kg Physical Exam Narrative: awake , alert , no distress on 5L NC Urinary Catheter Management: Fuentes: Cath Placed During This Visit: yes Reason for Continuing Indwelling Catheter: Accurate Measurement of Urinary Output in Critically Ill Patients Urinary Catheter Date of Insertion: 10/08/23 Urinary Catheter Time of Insertion: 20:53 Data 10/10/23 04:33 10/10/23 04:33 A&P Assessment and plan (1) End stage kidney disease: (2) ESRD (end stage renal disease) on dialysis: 1. End-stage renal disease: On MWF schedule for dialysis, HD tomorrow Ultrafiltration as tolerated, patient currently on BIPAP 2. Acute limb ischemia - due to SFA ooclusion , s/p aortogram 3. Acute on chronic respiratory failure, on bipap 4. Anemia,recent GI bleed , CHUCK with hD 5. Recent infective endocarditis, completed IV abx overall poor prognosis Plan [facility] Necessity Statement*: per medicine Coding Level of Care Code Acute Code for Chg Fwd Diagnoses End stage kidney disease N18.6 ESRD (end stage renal disease) on dialysis N18.6; Z99.2
[2023-10-10] MEDS: fluconazole premix 100 MG/50 ML PREMIX IV (23:43)
[2023-10-11] VITALS (57 sets, daily range): BP systolic 80–131; BP diastolic 46–87; PULSE 102–124; RESP 12–33; TEMP 36.6–37.5; O2SAT 79–99
[2023-10-11] MEDS: morphine 4 mg/mL SDV 1 mL 1 MG IVP ×2 (01:59→05:59)
[2023-10-11] MEDS: amiodarone 200 mg Tablet PO (05:59)
[2023-10-11] MEDS: heparin drip 25,000 UNIT/500 ML PREMIX 38 UNIT IV ×2 (06:43→19:54)
[2023-10-11 07:34] LABS: Glucose Point of Care 136 mg/dL (70-110)
[2023-10-11 07:48] LABS: Partial Thromboplastin Time 58.5 SECONDS (23.9-36.7)
[2023-10-11] MEDS: sevelamer 800 mg Tablet PO ×3 (08:29→23:23)
[2023-10-11] MEDS: vancomycin 125 mg Capsule PO ×3 (08:29→23:22)
[2023-10-11] MEDS: clopidogrel 75 mg Tablet PO (08:29)
[2023-10-11] MEDS: gabapentin 100 mg Capsule PO ×3 (08:30→23:22)
[2023-10-11] MEDS: metoprolol tartrate 25 mg Tablet PO ×2 (08:34→23:23)
[2023-10-11] MEDS: meropenem 1,000 MG in sodium chloride 0.9% (plus) 50 ML 100 MG IV ×2 (09:23→23:40)
[2023-10-11] MEDS: pantoprazole 40 mg SDV IVP ×2 (11:07→23:16)
--- NOTE | 2023-10-11 11:11 | PM.PN ---
Subjective Subjective: on levophed Medications: Reviewed: Yes Vitals/I&O/Wt Last Vital Signs Temp 97.6 F 10/10/23 04:00 Pulse 117 H 10/11/23 08:09 Resp 20 H 10/11/23 08:09 BP 80/50 10/11/23 08:00 Pulse Ox 98 10/11/23 08:09 O2 Del Method BiPAP 10/11/23 08:09 O2 Flow Rate 4 10/10/23 07:44 FiO2 30 10/11/23 08:09 10/10/23 10/11/23 10/11/23 22:59 06:59 14:59 Intake Total 700 / 1314.125 550 / 1864.125 348.767 / 348.767 Output Total 200 / 200 50 / 250 Balance 500 / 1114.125 500 / 1614.125 348.767 / 348.767 Weight last 48 hrs Weight 114.986 kg Weight 113.489 kg Weight 114.7 kg Physical Exam Narrative: awake , alert , no distress on 5L NC Urinary Catheter Management: Fuentes: Cath Placed During This Visit: yes Reason for Continuing Indwelling Catheter: Accurate Measurement of Urinary Output in Critically Ill Patients Urinary Catheter Date of Insertion: 10/08/23 Urinary Catheter Time of Insertion: 20:53 Data 10/10/23 04:33 10/10/23 04:33 A&P Assessment and plan (1) End stage kidney disease: (2) ESRD (end stage renal disease) on dialysis: 1. End-stage renal disease: On MWF schedule for dialysis, HD today Ultrafiltration as tolerated, patient currently on BIPAP 2. Acute limb ischemia - due to SFA ooclusion , s/p aortogram 3. Acute on chronic respiratory failure, on bipap 4. Anemia,recent GI bleed , CHUCK with hD 5. Recent infective endocarditis, completed IV abx overall poor prognosis Plan [facility] [place] Necessity Statement*: per medicine Coding Level of Care Code Acute Code for Chg Fwd Diagnoses End stage kidney disease N18.6 ESRD (end stage renal disease) on dialysis N18.6; Z99.2
--- NOTE | 2023-10-11 11:20 | PC.NURSE ---
removed sheath right groin and held for 30 min placed dressing monitor frequently weaning sedation to possible extubate today
[2023-10-11 12:05] LABS: Glucose Point of Care 152 mg/dL (70-110)
[2023-10-11] MEDS: insulin lispro 100 unit/1 mL SUBCUT ×2 (12:13→17:38)
--- NOTE | 2023-10-11 16:40 | P.PN_ITS ---
Subjective 2 Subjective: seen with staff pain controlled Vitals/I&O/Wt Last Vital Signs Temp 978 F H 10/11/23 16:00 Pulse 119 H 10/11/23 16:00 Resp 22 H 10/11/23 16:00 BP 84/52 10/11/23 16:00 Pulse Ox 92 10/11/23 16:00 O2 Del Method BiPAP 10/11/23 08:09 O2 Flow Rate 4 10/10/23 07:44 FiO2 30 10/11/23 08:09 10/11/23 10/11/23 10/11/23 06:59 14:59 22:59 Intake Total 550 / 1864.125 648.767 / 648.767 Output Total 50 / 250 Balance 500 / 1614.125 648.767 / 648.767 Weight last 48 hrs Weight 253 lb 8 oz Weight 250 lb 3.2 oz Weight 252 lb 13.923 oz Physical Exam 2 Const: COMMON NORMALS: no acute distress and patient oriented x3 HENMT: COMMON NORMALS: normocephalic HEAD & SCALP: normocephalic Eye: COMMON NORMALS: Equal, round and reactive pupils present PUPIL: Yes Equal, round and reactive pupils present Neck/C-Spine: COMMON NORMALS: no JVD Chest: OTHER: Dialysis catheter in place Resp: COMMON NORMALS: normal respiratory effort, No retractions, No use of accessory muscles and clear to auscultation bilaterally AUSCULTATION: clear to auscultation bilaterally Cardio: COMMON NORMALS: no JVD, regular rate, regular rhythm, S1 normal heart sound present and S2 normal heart sound present RATE: regular rate RHYTHM: regular rhythm HEART SOUNDS: S1 normal heart sound present and S2 normal heart sound present GI: COMMON NORMALS: Normal to inspection, nondistended, normoactive bowel sounds present, Soft to palpation and non-tender PALPATION: Yes Soft to palpation Extremity: NARRATIVE EXTREMITY EXAM: 1+ edema OTHER: both legs well warm perfused. Neuro: COMMON NORMALS: patient oriented x3 Psych: COMMON NORMALS: mental status grossly normal Urinary Catheter Management: Fuentes: Cath Placed During This Visit: yes Reason for Continuing Indwelling Catheter: Accurate Measurement of Urinary Output in Critically Ill Patients Urinary Catheter Date of Insertion: 10/08/23 Urinary Catheter Time of Insertion: 20:53 Data 10/10/23 04:33 10/10/23 04:33 A&P Assessment and plan (1) Acute lower limb ischemia: (2) Arterial occlusion: (3) Congestive heart failure: Qualifiers: Heart failure chronicity: acute on chronic Heart failure type: u nspecified Qualified Code(s): I50.9 - Heart failure, unspecified (4) Sepsis: Qualifiers: Sepsis acute organ dysfunction status: unspecified Sepsis type: sepsis due to unspecified organism Qualified Code(s): A41.9 - Sepsis, unspecified organism (5) Abscess or cellulitis of foot: (6) End stage kidney disease: (7) Acute anemia: (8) GI bleed: (9) Elevated lactic acid level: (10) Urinary tract infection: Plan Acute limb ischemia - RULED OUT Chronic PAD ? Left lower extremity, pale, pulselessness, cool, clammy, pulses not palpable ? Duplex arterial ultrasound shows left SFA occlusion ? Plan ? Concerns for acute embolization from atrial fibrillation resulting in left SFA occlusion? Other possibilities include septic emboli from his history of endocarditis although last echocardiogram shows healed vegetations Continue heparin drip, statin, Plavix Acute on chronic anemia, concerns for GI bleed ? During his hospital hospitalization hemoglobin was low at 6.6, requiring 1 unit PRBC, his anticoagulant therapy had to be discontinued on discharge, he has a history of atrial fibrillation ? Currently hemoglobin 7.4, no complaints of blood box was no hemodynamic compromise ? Receiving 1 unit PRBC, monitor hemoglobin every 4 hours ? Receiving 1 unit PRBC History of bacterial endocarditis, history of multiple valvular vegetation including aortic, mitral ? Has completed antibiotic therapy ? Repeat cardiac echocardiogram Bilateral lower extremity diabetic ulcers, cellulitis ? On examination bilateral lower extremities have diabetic ulcers, with erythema, swelling concerning for cellulitis ? With elevated lactic acid concerning for cellulitis ? Continue vancomycin, meropenem Elevated lactic acid, ? Secondary to acute limb ischemia, slow GI bleed, cellulitis, UTI ? With history of Radha Antonio GI, history of ESBL infection ? Switch Zosyn to meropenem ? Continue Diflucan Sepsis from diabetic ulcers, cellulitis, UTI Type 2 diabetes mellitus, low-dose sliding scale End-stage renal disease, on dialysis CHF, pulmonary edema seen on chest x-ray with elevated BNP over 34,000, currently on 3 L -Currently does not look like he is in respiratory distress ? Nephrology has been consulted plan on dialysis for fluid overload Atrial fibrillation, heart rates in the 112's, continue p.o. amiodarone will consider amiodarone drip Full code, confirmed with this patient multiple times ? Heparin drip ? Protonix for GI prophylaxis Attestations 2 Medical Necessity Statement*: medication managment Coding Level of Care Code Acute Code for Chg Fwd Diagnoses Acute lower limb ischemia I99.8 Arterial occlusion I70.90 Congestive heart failure I50.9 Heart failure chronicity: acute on chronic Heart failure type: unspecified Sepsis A41.9 Sepsis acute organ dysfunction status: unspecified Sepsis type: sepsis due to unspecified organism Abscess or cellulitis of foot End stage kidney disease N18.6 Acute anemia D64.9 GI bleed K92.2 Elevated lactic acid level R79.89 Urinary tract infection N39.0
[2023-10-11 17:36] LABS: Glucose Point of Care 238 mg/dL (70-110)
[2023-10-11] MEDS: insulin glargine 100 units/1 mL 15 UNIT SUBCUT (17:39)
[2023-10-11 20:31] LABS: Partial Thromboplastin Time 77.2 SECONDS (23.9-36.7)
[2023-10-11] MEDS: heparin, porcine 1,000 unit/mL INJ 10 mL 10000 UNIT HE (21:11)
[2023-10-11] MEDS: heparin, porcine 1,000 unit/mL INJ 10 mL 10000 UNIT INTRACATH (21:12)
--- NOTE | 2023-10-11 21:58 | PC.NURSE ---
Meds due at 2100 will be given after hemodialysis is completed.
[2023-10-11 23:01] LABS: Glucose Point of Care 35 mg/dL (70-110)
[2023-10-11 23:01] LABS: Glucose Point of Care 290 mg/dL (70-110)
[2023-10-11] MEDS: norepinephrine 4 MG/250 ML BAG 15 MG IV (23:12)
[2023-10-11] MEDS: vancomycin 1,000 MG in sodium chloride 0.9% 250 ML 250 MG IV (23:13)
[2023-10-11] MEDS: atorvastatin 40 mg Tablet PO (23:22)
[2023-10-11] MEDS: fluconazole premix 100 MG/50 ML PREMIX IV (23:23)
[2023-10-11] MEDS: HYDROcodone-acetaminophen 5-325 mg Tablet 1 TAB PO (23:38)
[2023-10-12] VITALS (33 sets, daily range): BP systolic 92–124; BP diastolic 45–86; PULSE 80–125; RESP 13–24; TEMP 36.6–37.4; O2SAT 69–99
[2023-10-12 05:14] LABS: Partial Thromboplastin Time 57.8 SECONDS (23.9-36.7)
[2023-10-12] MEDS: amiodarone 200 mg Tablet PO (06:11)
--- NOTE | 2023-10-12 06:31 | PC.NURSE ---
Patient had large sof, brown BM. Patient incontinent of stool.
[2023-10-12 08:07] LABS: Glucose Point of Care 67 mg/dL (70-110)
[2023-10-12 08:07] LABS: Glucose Point of Care 53 mg/dL (70-110)
[2023-10-12] MEDS: sevelamer 800 mg Tablet PO ×3 (09:12→20:07)
[2023-10-12] MEDS: clopidogrel 75 mg Tablet PO (09:12)
[2023-10-12] MEDS: gabapentin 100 mg Capsule PO ×3 (09:12→20:07)
[2023-10-12] MEDS: vancomycin 125 mg Capsule PO ×3 (09:12→20:07)
[2023-10-12] MEDS: metoprolol tartrate 25 mg Tablet PO ×2 (09:15→20:07)
[2023-10-12 09:52] LABS: Basophils % 0.5 %; Eosinophils # 0.1 10^3/uL (0.0-0.8); Eosinophils % 1.2 %; Hematocrit 23.6 % (37-53); Lymphocytes # 0.4 10^3/uL (0.8-4.8); Lymphocytes % 5.6 %; Mean Corpuscular HGB Conc 29.7 g/dL (30-55); Mean Corpuscular Hemoglobin 29.2 pg (27-33); Mean Corpuscular Volume 98.3 fl (82-101); Mean Platelet Volume 10.4 fL (7.4-10.4); Monocytes # 0.6 10^3/uL (0.2-0.9); Neutrophils # 6.19 10^3/uL (1.8-7.7); Neutrophils % 84.2 %; Nucleated Red Blood Cells % 0 %; Platelet Count 192 10^3/cmm (157-399); Red Cell Distribution Width 16.7 % (12.1-15.1); White Blood Count 7.36 10^3/uL (3.29-11.43)
[2023-10-12 10:08] LABS: Alanine Aminotransferase < 5 U/L (0-41); Albumin Level 2.4 g/dL (3.5-5.2); Alkaline Phosphatase 180 U/L (40-130); Aspartate Amino Transferase 6 U/L (0-40); Blood Urea Nitrogen 19 mg/dL (8-23); C Reactive Protein 272.1 mg/L (0.0-4.9); Calcium 8.3 mg/dL (8.5-10.5); Carbon Dioxide 25 mmol/L (22-29); Chloride 98 mmol/L (98-107); Globulin 3.6 g/dL (1.3-4.6); Glomerular Filtration Rate 20.7 mL/min (90-130); Glucose 101 mg/dL (65-115); Osmolality Calculated 284 mOsm/kg (285-295); Sodium 136 mmol/L (136-145); Total Bilirubin 0.5 mg/dL (0.15-1.2)
[2023-10-12 10:14] LABS: Creatinine Clr Calc Pharmacy 32.6728
[2023-10-12] MEDS: heparin drip 25,000 UNIT/500 ML PREMIX 35 UNIT IV (10:42)
[2023-10-12] MEDS: pantoprazole 40 mg SDV IVP ×2 (10:43→22:53)
[2023-10-12] MEDS: meropenem 1,000 MG in sodium chloride 0.9% (plus) 50 ML 100 MG IV ×2 (10:43→22:53)
[2023-10-12 11:26] LABS: Glucose Point of Care 155 mg/dL (70-110)
--- NOTE | 2023-10-12 16:55 | P.PN_ITS ---
Subjective 2 Subjective: leg wounds oozing this AM wound care discussed pain controlled Vitals/I&O/Wt Last Vital Signs Temp 98 F 10/12/23 16:00 Pulse 118 H 10/12/23 16:00 Resp 19 H 10/12/23 16:00 BP 102/54 10/12/23 16:00 Pulse Ox 93 10/12/23 16:00 O2 Del Method BiPAP 10/12/23 09:22 O2 Flow Rate 4 10/11/23 19:00 FiO2 30 10/12/23 09:22 10/12/23 10/12/23 10/12/23 06:59 14:59 22:59 Intake Total 1403 / 2923.075 1015.050 / 1015.050 Output Total 3983 / 4033 Balance -2580 / -8067.886 3831.050 / 1015.050 Weight last 48 hrs Weight 245 lb 12.8 oz Weight 249 lb 9.012 oz Weight 253 lb 8 oz Physical Exam 2 Const: COMMON NORMALS: no acute distress and patient oriented x3 HENMT: COMMON NORMALS: normocephalic HEAD & SCALP: normocephalic Eye: COMMON NORMALS: Equal, round and reactive pupils present PUPIL: Yes Equal, round and reactive pupils present Neck/C-Spine: COMMON NORMALS: no JVD Chest: OTHER: Dialysis catheter in place Resp: COMMON NORMALS: normal respiratory effort, No retractions, No use of accessory muscles and clear to auscultation bilaterally AUSCULTATION: clear to auscultation bilaterally Cardio: COMMON NORMALS: no JVD, regular rate, regular rhythm, S1 normal heart sound present and S2 normal heart sound present RATE: regular rate RHYTHM: regular rhythm HEART SOUNDS: S1 normal heart sound present and S2 normal heart sound present GI: COMMON NORMALS: Normal to inspection, nondistended, normoactive bowel sounds present, Soft to palpation and non-tender PALPATION: Yes Soft to palpation Extremity: NARRATIVE EXTREMITY EXAM: 1+ edema OTHER: both legs well warm perfused. Neuro: COMMON NORMALS: patient oriented x3 Psych: COMMON NORMALS: mental status grossly normal Urinary Catheter Management: Fuentes: Cath Placed During This Visit: yes Reason for Continuing Indwelling Catheter: Accurate Measurement of Urinary Output in Critically Ill Patients Urinary Catheter Date of Insertion: 10/08/23 Urinary Catheter Time of Insertion: 20:53 Data 10/12/23 09:45 10/12/23 09:45 Micro: Microbiology 10/08/23 21:10 Urine Culture - Final Urine,Clean Catch Radha krusei A&P Assessment and plan (1) Acute lower limb ischemia: (2) Arterial occlusion: (3) Congestive heart failure: Qualifiers: Heart failure chronicity: acute on chronic Heart failure type: u nspecified Qualified Code(s): I50.9 - Heart failure, unspecified (4) Sepsis: Qualifiers: Sepsis acute organ dysfunction status: unspecified Sepsis type: sepsis due to unspecified organism Qualified Code(s): A41.9 - Sepsis, unspecified organism (5) Abscess or cellulitis of foot: (6) End stage kidney disease: (7) Acute anemia: (8) GI bleed: (9) Elevated lactic acid level: (10) Urinary tract infection: Plan Acute limb ischemia - RULED OUT Chronic PAD ? Left lower extremity, pale, pulselessness, cool, clammy, pulses not palpable ? Duplex arterial ultrasound shows left SFA occlusion ? Plan ? Concerns for acute embolization from atrial fibrillation resulting in left SFA occlusion? Other possibilities include septic emboli from his history of endocarditis although last echocardiogram shows healed vegetations Continue heparin drip, statin, Plavix Acute on chronic anemia, concerns for GI bleed ? During his hospital hospitalization hemoglobin was low at 6.6, requiring 1 unit PRBC, his anticoagulant therapy had to be discontinued on discharge, he has a history of atrial fibrillation ? Currently hemoglobin 7.4, no complaints of blood box was no hemodynamic compromise ? Receiving 1 unit PRBC, monitor hemoglobin every 4 hours ? Receiving 1 unit PRBC History of bacterial endocarditis, history of multiple valvular vegetation including aortic, mitral ? Has completed antibiotic therapy ? Repeat cardiac echocardiogram Bilateral lower extremity diabetic ulcers, cellulitis ? On examination bilateral lower extremities have diabetic ulcers, with erythema, swelling concerning for cellulitis ? With elevated lactic acid concerning for cellulitis ? Continue vancomycin, meropenem Elevated lactic acid, ? Secondary to acute limb ischemia, slow GI bleed, cellulitis, - consult surgery UTI ? With history of Radha Antonio GI, history of ESBL infection ? Switch Zosyn to meropenem ? Continue Diflucan Sepsis from diabetic ulcers, cellulitis, UTI Type 2 diabetes mellitus, low-dose sliding scale End-stage renal disease, on dialysis CHF, pulmonary edema seen on chest x-ray with elevated BNP over 34,000, currently on 3 L -Currently does not look like he is in respiratory distress ? Nephrology has been consulted plan on dialysis for fluid overload Atrial fibrillation, heart rates in the 112's, continue p.o. amiodarone will consider amiodarone drip Full code, confirmed with this patient multiple times ? Heparin drip ? Protonix for GI prophylaxis Attestations 2 Medical Necessity Statement*: Geronimo Barahona requires ongoing inpatient care for wound care, abx Coding Level of Care Code 10096 Diagnoses Acute lower limb ischemia I99.8 Arterial occlusion I70.90 Congestive heart failure I50.9 Heart failure chronicity: acute on chronic Heart failure type: unspecified Sepsis A41.9 Sepsis acute organ dysfunction status: unspecified Sepsis type: sepsis due to unspecified organism Abscess or cellulitis of foot End stage kidney disease N18.6 Acute anemia D64.9 GI bleed K92.2 Elevated lactic acid level R79.89 Urinary tract infection N39.0
[2023-10-12 17:25] LABS: Glucose Point of Care 158 mg/dL (70-110)
[2023-10-12] MEDS: insulin glargine 100 units/1 mL 15 UNIT SUBCUT (17:28)
[2023-10-12] MEDS: atorvastatin 40 mg Tablet PO (20:07)
[2023-10-12 20:14] LABS: Partial Thromboplastin Time 55.6 SECONDS (23.9-36.7)
[2023-10-12 20:15] LABS: Glucose Point of Care 114 mg/dL (70-110)
--- NOTE | 2023-10-12 20:37 | P.PN_ITS ---
Subjective 2 Subjective: events noted Medications: Reviewed: Yes Vitals/I&O/Wt Last Vital Signs Temp 98 F 10/12/23 16:00 Pulse 109 H 10/12/23 19:55 Resp 19 H 10/12/23 16:00 BP 102/54 10/12/23 16:00 Pulse Ox 96 10/12/23 19:55 O2 Del Method BiPAP 10/12/23 09:22 O2 Flow Rate 4 10/11/23 19:00 FiO2 30 10/12/23 19:55 10/12/23 10/12/23 10/12/23 06:59 14:59 22:59 Intake Total 1403 / 2923.075 1015.050 / 1015.050 300 / 1315.050 Output Total 3983 / 4033 50 / 50 Balance -2580 / -0339.049 3853.050 / 1015.050 250 / 1265.050 Weight last 48 hrs Weight 111.493 kg Weight 113.2 kg Weight 114.986 kg Physical Exam 2 Narrative: awake , alert , no distress on 5L NC Urinary Catheter Management: Fuentes: Cath Placed During This Visit: yes Reason for Continuing Indwelling Catheter: Accurate Measurement of Urinary Output in Critically Ill Patients Urinary Catheter Date of Insertion: 10/08/23 Urinary Catheter Time of Insertion: 20:53 Data 10/12/23 09:45 10/12/23 09:45 Micro: Microbiology 10/08/23 21:10 Urine Culture - Final Urine,Clean Catch Radha krusei A&P Assessment and plan (1) End stage kidney disease: (2) ESRD (end stage renal disease) on dialysis: 1. End-stage renal disease: On MWF schedule for dialysis, HD tomorrow Ultrafiltration as tolerated, pt on pressors intermittently 2. Acute limb ischemia - due to SFA ooclusion , s/p aortogram 3. Acute on chronic respiratory failure, off bipap 4. Anemia,recent GI bleed , CHUCK with hD 5. Recent infective endocarditis, completed IV abx Plan PER [facility] Attestations 2 Medical Necessity Statement*: per [facility] [place] [facility] Coding Level of Care Code Acute Code for Chg Fwd Diagnoses End stage kidney disease N18.6 ESRD (end stage renal disease) on dialysis N18.6; Z99.2
[2023-10-12] MEDS: fluconazole premix 100 MG in empty flexible container 1 EACH 50 MG IV (22:52)
[2023-10-13] VITALS (30 sets, daily range): BP systolic 87–118; BP diastolic 43–62; PULSE 77–119; RESP 14–29; TEMP 36.4–37.2; O2SAT 89–99
[2023-10-13] MEDS: heparin drip 25,000 UNIT/500 ML PREMIX 35 UNIT IV (01:35)
[2023-10-13] MEDS: HYDROcodone-acetaminophen 5-325 mg Tablet 1 TAB PO ×3 (05:09→17:28)
[2023-10-13] MEDS: amiodarone 200 mg Tablet PO (05:09)
[2023-10-13 06:22] LABS: Partial Thromboplastin Time 53.9 SECONDS (23.9-36.7)
[2023-10-13] MEDS: heparin 5,000 unit/mL INJ 1 mL IV ×2 (06:29→22:44)
[2023-10-13 07:46] LABS: Glucose Point of Care 109 mg/dL (70-110)
[2023-10-13 07:48] LABS: Basophils % 0.6 %; Eosinophils # 0.2 10^3/uL (0.0-0.8); Eosinophils % 3.3 %; Hematocrit 23.9 % (37-53); Lymphocytes # 0.6 10^3/uL (0.8-4.8); Lymphocytes % 8.5 %; Mean Corpuscular HGB Conc 30.1 g/dL (30-55); Mean Corpuscular Hemoglobin 29.4 pg (27-33); Mean Corpuscular Volume 97.6 fl (82-101); Mean Platelet Volume 10.3 fL (7.4-10.4); Monocytes # 0.5 10^3/uL (0.2-0.9); Monocytes % 8.4 %; Neutrophils # 5.07 10^3/uL (1.8-7.7); Neutrophils % 78.6 %; Nucleated Red Blood Cells % 0 %; Platelet Count 186 10^3/cmm (157-399); Red Blood Count 2.45 10^6/uL (3.85-5.65); Red Cell Distribution Width 16.5 % (12.1-15.1); White Blood Count 6.45 10^3/uL (3.29-11.43)
[2023-10-13 07:59] LABS: Anion Gap 16.4 (5-19); Blood Urea Nitrogen 25 mg/dL (8-23); Calcium 8.6 mg/dL (8.5-10.5); Carbon Dioxide 26 mmol/L (22-29); Chloride 100 mmol/L (98-107); Glomerular Filtration Rate 15.4 mL/min (90-130); Glucose 87 mg/dL (65-115); Osmolality Calculated 290 mOsm/kg (285-295); Potassium 4.4 mmol/L (3.5-5.1); Sodium 138 mmol/L (136-145)
[2023-10-13] MEDS: sevelamer 800 mg Tablet PO ×3 (09:56→20:37)
[2023-10-13] MEDS: clopidogrel 75 mg Tablet PO (09:56)
[2023-10-13] MEDS: gabapentin 100 mg Capsule PO ×3 (09:56→20:37)
[2023-10-13] MEDS: vancomycin 125 mg Capsule PO ×3 (09:59→20:37)
[2023-10-13] MEDS: pantoprazole 40 mg SDV IVP ×2 (10:43→22:50)
[2023-10-13] MEDS: meropenem 1,000 MG in sodium chloride 0.9% (plus) 50 ML 100 MG IV ×2 (10:46→22:50)
[2023-10-13 11:53] LABS: Glucose Point of Care 136 mg/dL (70-110)
--- NOTE | 2023-10-13 13:00 | PM.CONSULT ---
Providers/Reason For Consult Consulting Physician/Specialty*: Dr. Alexander Baxter, DO/General surgery Reason for Consult*: Bilateral lower extremity ischemia with ulceration Attending Physician: Luis Zheng MD Primary Care Provider: Misty Ibrahim History of Present Illness History of Present Illness Geronimo Barahona is a 62 year old male with a history of end-stage kidney disease and congestive heart failure [facility] the [facility] with severe ischemia to the left lower extremity. He was found to have wounds covered by eschars on his bilateral lower extremities. He denies any pain to his lower extremities but he admits that he does not have much sensation. He is currently on a heparin drip and meropenem. General surgery was consulted for possible debridement to bilateral lower extremity wounds. Review of Systems General: Reports: 10 or more systems reviewed and unremarkable except in HPI and below Medications/Allergies Home Medications Medication Instructions Recorded Confirmed Last Taken Type albuterol sulfate 2.5 mg/3 mL 2.5 mg inhalation Q4H PRN 10/03/22 10/08/23 Unknown History (0.083 %) solution for nebulization Shortness Of Breath amiodarone 200 mg tablet 200 mg PO QAM 10/03/22 10/08/23 10/08/23 History acetaminophen 325 mg tablet 650 mg PO Q6H PRN Pain 08/12/23 10/08/23 08/04/23 History bisacodyl 10 mg rectal suppository 10 mg WV DAILY PRN Constipation 08/12/23 10/08/23 Unknown History hydrocodone 5 mg-acetaminophen 325 1 tab PO Q6H PRN Pain 08/12/23 10/08/23 10/08/23 History mg tablet insulin aspart U-100 100 unit/mL See Rx Instructions .Route .COMPLEX 08/12/23 10/08/23 10/08/23 History (3 mL) subcutaneous pen (Novolog FlexPen U-100 Insulin aspart) metoprolol tartrate 50 mg tablet See Rx Instructions .Route .COMPLEX 08/12/23 10/08/23 10/08/23 History nystatin 100,000 unit/gram topical 1 applic topical DAILY 08/12/23 10/08/23 10/07/23 History powder Saccharomyces boulardii 250 mg 250 mg PO BID 09/14/23 10/08/23 10/08/23 History capsule albuterol sulfate 90 mcg/actuation 2 puff inhalation Q6H PRN 09/14/23 10/08/23 Unknown History aerosol inhaler (Ventolin HFA) Shortness Of Breath bumetanide 1 mg tablet See Rx Instructions .Route .COMPLEX 09/14/23 10/08/23 Unknown History calcium acetate 667 mg tablet 667 mg PO TID 09/14/23 10/08/23 10/08/23 History clopidogrel 75 mg tablet 75 mg PO DAILY 09/14/23 10/08/23 10/08/23 History gabapentin 100 mg capsule 100 mg PO TID 09/14/23 10/08/23 10/08/23 History vancomycin 125 mg capsule 125 mg PO TID #60 caps 09/25/23 10/08/23 10/08/23 Rx insulin glargine 100 unit/mL (3 15 unit SUBCUT QPM 10/08/23 10/08/23 10/07/23 History mL) subcutaneous pen (Lantus Solostar U-100 Insulin) metoprolol tartrate 50 mg tablet See Rx Instructions .Route .COMPLEX 10/08/23 10/08/23 10/07/23 History sevelamer carbonate 800 mg tablet 800 mg PO TID 10/08/23 10/08/23 10/08/23 History (Renvela) Allergies Allergy/AdvReac Type Severity Reaction Status Date / Time amoxicillin [From Augmentin] Allergy Mild rash Verified 09/12/23 09:18 clavulanic acid Allergy Mild rash Verified 09/12/23 09:18 [From Augmentin] levofloxacin Allergy Mild rash Verified 09/12/23 09:18 Current Medications Generic Name Dose Route Start Last Admin Trade Name Freq PRN Reason Stop Dose Admin Amiodarone HCl 200 mg 10/09/23 06:00 10/14/23 06:22 Amiodarone 200 Mg Tablet PO 200 mg QAM JAIDEN Administration Atorvastatin Calcium 40 mg 10/08/23 23:03 10/13/23 20:37 Atorvastatin 40 Mg Tablet PO 40 mg BEDTIME JAIDEN Administration Clopidogrel Bisulfate 75 mg 10/09/23 09:00 10/13/23 09:56 Clopidogrel 75 Mg Tablet PO 75 mg DAILY JAIDEN Administration Gabapentin 100 mg 10/09/23 09:00 10/13/23 20:37 Gabapentin 100 Mg Capsule PO 100 mg TID JAIDEN Administration Heparin Sodium (Porcine) 0 unit 10/08/23 17:40 10/13/23 22:44 Heparin 5,000 Unit/Ml Inj 1 Ml IV 10/14/23 10:00 5,000 unit PRN PRN Administration Heparin weight-base protocol Protocol Heparin Sodium/Sodium Chloride 25,000 unit in 500 mls @ 0 mls/hr 10/08/23 17:45 10/14/23 05:20 Heparin Drip IV 10/14/23 10:00 12.86 unit/kg/hr .Q0M JAIDEN 35 mls/hr Titration Protocol Per Protocol Meropenem 1,000 mg/ Sodium 50 mls @ 100 mls/hr 10/08/23 21:45 10/13/23 23:42 Chloride IV Infused Q12H JAIDEN Infusion Protocol norepinephrine 4 mg in 250 mls @ 0 mls/hr 10/09/23 00:45 10/14/23 05:18 Levophed IV Infused .Q0M JAIDEN Titration Protocol Per Protocol Vancomycin HCl 1,000 mg/ 250 mls @ 250 mls/hr 10/11/23 21:00 10/14/23 03:52 Sodium Chloride IV Infused Q48H JAIDEN Infusion Fluconazole 100 mg/ N/A 50 mls @ 50 mls/hr 10/12/23 23:00 10/14/23 03:53 IV Infused Q24H JAIDEN Infusion Insulin Glargine 15 unit 10/09/23 18:00 10/12/23 17:28 Insulin Glargine 100 Units/1 Ml SUBCUT 15 unit QPM JAIDEN Administration Insulin Human Lispro 0 unit 10/09/23 08:00 10/13/23 17:37 Insulin Lispro 100 Unit/1 Ml SUBCUT Not Given TIDWM [facility] Protocol Metoprolol Tartrate 25 mg 10/10/23 11:40 10/13/23 20:37 Metoprolol Tartrate 25 Mg Tablet PO 25 mg BID@0900,2100 JAIDEN Administration Midodrine 5 mg 10/13/23 15:00 10/13/23 20:37 Midodrine 5 Mg Tablet PO 5 mg TID JAIDEN Administration Pantoprazole Sodium 40 mg 10/08/23 23:03 10/13/23 22:50 Pantoprazole 40 Mg Sdv IVP 40 mg Q12H JAIDEN Administration Sevelamer Carbonate 800 mg 10/08/23 21:00 10/13/23 20:37 Sevelamer 800 Mg Tablet PO 800 mg TID JAIDEN Administration Sodium Chloride 50 ml 10/13/23 09:21 10/13/23 14:23 Sodium Chloride 0.9% 100 Ml Bag IV 10/14/23 09:22 50 ml PRN PRN Administration Blood transfusion prime and flush Vancomycin HCl 125 mg 10/09/23 09:00 10/13/23 20:37 Vancomycin 125 Mg Capsule PO 125 mg TID JAIDEN Administration PFSH Acute PFSH: Medical History Urinary tract infection CHF exacerbation History of Clostridioides difficile colitis Bilateral pleural effusion Pulmonary arterial hypertension Acute respiratory distress syndrome Pressure ulcer of right heel, unstageable Shock Septic shock NSTEMI (non-ST elevated myocardial infarction) Aspiration pneumonia Pulmonary edema Acute hypoxic respiratory failure Acute encephalopathy Hypoglycemia Altered mental status Edema Decubitus ulcer of heel, unstageable Enterococcus faecalis infection Endocarditis Hypotension Chronic anemia Anemia Sepsis Afib ESRD (end stage renal disease) on dialysis Hyponatremia DM2 (diabetes mellitus, type 2) Pressure ulcer of left leg, stage 2 Pressure ulcer of right leg, stage 2 Wound of left foot Excoriation of groin Excoriation of abdomen Wound of left lower extremity Pressure ulcer of left buttock, stage 2 Pressure ulcer of right buttock, stage 2 Wound of right lower extremity Lymphedema Stasis dermatitis Pressure sore on buttocks Inability to perform activities of daily living Kidney dysfunction Fluid overload Cellulitis Hemodialysis status Temporary dialysis catheter placement Acute kidney failure Bradycardia Anasarca Bilateral lower leg cellulitis Metabolic acidosis Hyperkalemia DKA (diabetic ketoacidosis) Falls Generalized weakness FRANCISCO (acute kidney injury) CHF (congestive heart failure) Chronic respiratory failure with hypoxia COPD (chronic obstructive pulmonary disease) Social History Smoking and tobacco/nicotine status: former use of tobacco/nicotine Vitals/I&O/Wt Last Vital Signs Temp 98.8 F 10/14/23 04:00 Pulse 100 10/14/23 07:41 Resp 20 H 10/14/23 07:41 BP 87/42 10/14/23 04:00 Pulse Ox 94 10/14/23 07:41 O2 Del Method Nasal Cannula 10/14/23 07:41 O2 Flow Rate 4 10/14/23 07:41 FiO2 30 10/13/23 03:46 10/13/23 10/14/23 10/14/23 22:59 06:59 14:59 Intake Total 1841.733 / 2159.666 718.167 / 2877.833 Output Total 4011 / 4061 30 / 4091 Balance -2169.267 / -1901.334 688.167 / -1213.167 Weight last 48 hrs Weight 251 lb 4.8 oz Weight 247 lb 9.266 oz Weight 247 lb 3.2 oz Physical Exam Narrative: General : Patient is well developed , no acute distress, oriented x3 Head : Normal cephalic, a-traumatic. Ears : Pinnae and external canal are normal. Hearing is normal. Eyes : PERRLA, Sclera and injection are normal. No conjunctival discharge. Nose : Mucous membranes are without erythema. Throat : buccal mucosa is normal, gums are without significant recession or hypertrophy. Lungs : Equal chest rise bilaterally, no use of accessory muscles, trachea is midline. Cor : Rate and rhythm are normal. Abdomen : Ulceration with eschar to the right heel and fifth digit of right foot, ulcerations with eschars to the left leg over the calf Back : non-tender to palpation, no CVA tenderness. Neuro : CN II - XII intact, Upper and lower extremities have equal and full strength Urinary Catheter Management: Fuentes: Cath Placed During This Visit: yes Reason for Continuing Indwelling Catheter: Accurate Measurement of Urinary Output in Critically Ill Patients Urinary Catheter Date of Insertion: 10/08/23 Urinary Catheter Time of Insertion: 20:53 Data 10/14/23 04:32 10/14/23 04:32 Micro: Microbiology 10/08/23 14:17 Blood Culture - Final Blood NO GROWTH AFTER 5 DAYS 10/08/23 14:14 Blood Culture - Final Blood NO GROWTH AFTER 5 DAYS A&P Assessment and plan (1) Critical limb ischemia of left lower extremity: (2) Wound of lower extremity: Plan He has ischemic and decubitus ulcers of his bilateral lower extremities covered by eschars. These are unable to be staged and require surgical debridement Sharp excisional debridement of bilateral lower extremity wounds Risks and benefits of the procedure, including but not limited to, bleeding, infection, scar, numbness, pain, recurrence, need for further surgery, possible progression to amputations, were explained to the patient. He is understand the risks and wishes to proceed. Coding Level of Care Code 69146 Diagnoses Critical limb ischemia of left lower extremity I70.222 Wound of lower extremity S81.809A
[2023-10-13] MEDS: heparin, porcine 1,000 unit/mL INJ 10 mL 10000 UNIT HE (13:24)
[2023-10-13] MEDS: heparin, porcine 1,000 unit/mL INJ 10 mL 10000 UNIT INTRACATH (13:26)
[2023-10-13] MEDS: midodrine 5 mg TABLET PO ×2 (14:23→20:37)
[2023-10-13] MEDS: sodium chloride 0.9% 100 mL Bag 50 ML IV (14:23)
[2023-10-13 14:38] LABS: Partial Thromboplastin Time 114.6 SECONDS (23.9-36.7)
[2023-10-13] MEDS: heparin drip 25,000 UNIT/500 ML PREMIX 32 UNIT IV (14:53)
--- NOTE | 2023-10-13 14:55 | PC.NURSE ---
Blood tranfused during dialysis
--- NOTE | 2023-10-13 15:40 | P.PN_ITS ---
Subjective 2 Subjective: Blood pressure soft at times. Levophed given. Blood has been ordered. Reported some leg pain this morning Vitals/I&O/Wt Last Vital Signs Temp 97.6 F 10/13/23 14:23 Pulse 117 H 10/13/23 14:23 Resp 20 H 10/13/23 14:23 BP 110/58 10/13/23 14:23 Pulse Ox 95 10/13/23 14:23 O2 Del Method Nasal Cannula 10/13/23 08:38 O2 Flow Rate 4 10/13/23 08:38 FiO2 30 10/13/23 03:46 10/13/23 10/13/23 10/13/23 06:59 14:59 22:59 Intake Total 662.084 / 2687.717 317.933 / 317.933 400 / 717.933 Output Total 40 / 90 50 / 50 Balance 622.084 / 2597.717 267.933 / 267.933 400 / 667.933 Weight last 48 hrs Weight 247 lb 3.2 oz Weight 245 lb 12.8 oz Weight 249 lb 9.012 oz Physical Exam 2 Const: COMMON NORMALS: no acute distress and patient oriented x3 HENMT: COMMON NORMALS: normocephalic HEAD & SCALP: normocephalic Eye: COMMON NORMALS: Equal, round and reactive pupils present PUPIL: Yes Equal, round and reactive pupils present Neck/C-Spine: COMMON NORMALS: no JVD Chest: OTHER: Dialysis catheter in place Resp: COMMON NORMALS: normal respiratory effort, No retractions, No use of accessory muscles and clear to auscultation bilaterally AUSCULTATION: clear to auscultation bilaterally Cardio: COMMON NORMALS: no JVD, regular rate, regular rhythm, S1 normal heart sound present and S2 normal heart sound present RATE: regular rate RHYTHM: regular rhythm HEART SOUNDS: S1 normal heart sound present and S2 normal heart sound present GI: COMMON NORMALS: Normal to inspection, nondistended, normoactive bowel sounds present, Soft to palpation and non-tender PALPATION: Yes Soft to palpation Extremity: NARRATIVE EXTREMITY EXAM: Edema, swelling, redness multiple wounds seen Neuro: COMMON NORMALS: patient oriented x3 Psych: COMMON NORMALS: mental status grossly normal Urinary Catheter Management: Fuentes: Cath Placed During This Visit: yes Reason for Continuing Indwelling Catheter: Accurate Measurement of Urinary Output in Critically Ill Patients Urinary Catheter Date of Insertion: 10/08/23 Urinary Catheter Time of Insertion: 20:53 Data 10/13/23 05:02 10/13/23 05:02 Micro: Microbiology 10/08/23 14:17 Blood Culture - Final Blood NO GROWTH AFTER 5 DAYS 10/08/23 14:14 Blood Culture - Final Blood NO GROWTH AFTER 5 DAYS 10/08/23 21:10 Urine Culture - Final Urine,Clean Catch Radha krusei A&P Assessment and plan (1) Acute lower limb ischemia: (2) Arterial occlusion: (3) Congestive heart failure: Qualifiers: Heart failure chronicity: acute on chronic Heart failure type: u nspecified Qualified Code(s): I50.9 - Heart failure, unspecified (4) Sepsis: Qualifiers: Sepsis acute organ dysfunction status: unspecified Sepsis type: sepsis due to unspecified organism Qualified Code(s): A41.9 - Sepsis, unspecified organism (5) Abscess or cellulitis of foot: (6) End stage kidney disease: (7) Acute anemia: (8) GI bleed: (9) Elevated lactic acid level: (10) Urinary tract infection: Plan Acute limb ischemia - RULED OUT Chronic PAD ? Left lower extremity, pale, pulselessness, cool, clammy, pulses not palpable ? Duplex arterial ultrasound shows left SFA occlusion ? Plan ? Concerns for acute embolization from atrial fibrillation resulting in left SFA occlusion? Other possibilities include septic emboli from his history of endocarditis although last echocardiogram shows healed vegetations Continue heparin drip, statin, Plavix Acute on chronic anemia, concerns for GI bleed ? During his hospital hospitalization hemoglobin was low at 6.6, requiring 1 unit PRBC, his anticoagulant therapy had to be discontinued on discharge, he has a history of atrial fibrillation ? Hemoglobin checked, blood transfusion ordered Hypotension -Will start patient on midodrine. Try to taper off Levophed History of bacterial endocarditis, history of multiple valvular vegetation including aortic, mitral ? Has completed antibiotic therapy ? Repeat cardiac echocardiogram Bilateral lower extremity diabetic ulcers, cellulitis ? On examination bilateral lower extremities have diabetic ulcers, with erythema, swelling concerning for cellulitis ? With elevated lactic acid concerning for cellulitis ? Continue vancomycin, meropenem Elevated lactic acid, ? Secondary to acute limb ischemia, slow GI bleed, cellulitis, - consult surgery UTI ? With history of Radha Antonio GI, history of ESBL infection ? Switch Zosyn to meropenem ? Continue Diflucan Sepsis from diabetic ulcers, cellulitis, UTI Type 2 diabetes mellitus, low-dose sliding scale End-stage renal disease, on dialysis CHF, pulmonary edema seen on chest x-ray with elevated BNP over 34,000, currently on 3 L -Currently does not look like he is in respiratory distress ? Nephrology has been consulted plan on dialysis for fluid overload Atrial fibrillation, heart rates in the 112's, continue p.o. amiodarone will consider amiodarone drip Full code, confirmed with this patient multiple times ? Heparin drip ? Protonix for GI prophylaxis Attestations 2 Medical Necessity Statement*: Geronimo Barahona requires ongoing inpatient care for antibiotics Coding Level of Care Code Acute Code for [facility] Fwd Diagnoses Acute lower limb ischemia I99.8 Arterial occlusion I70.90 Congestive heart failure I50.9 Heart failure chronicity: acute on chronic Heart failure type: unspecified Sepsis A41.9 Sepsis acute organ dysfunction status: unspecified Sepsis type: sepsis due to unspecified organism Abscess or cellulitis of foot End stage kidney disease N18.6 Acute anemia D64.9 GI bleed K92.2 Elevated lactic acid level R79.89 Urinary tract infection N39.0
[2023-10-13 16:31] LABS: Glucose Point of Care 141 mg/dL (70-110)
--- NOTE | 2023-10-13 17:59 | P.PN_ITS ---
Subjective 2 Subjective: s/p HD today, tolerated well Vitals/I&O/Wt Last Vital Signs Temp 97.5 F L 10/13/23 17:39 Pulse 119 H 10/13/23 17:39 Resp 20 H 10/13/23 17:39 BP 109/59 10/13/23 17:39 Pulse Ox 92 10/13/23 16:00 O2 Del Method Nasal Cannula 10/13/23 16:00 O2 Flow Rate 4 10/13/23 16:00 FiO2 30 10/13/23 03:46 10/13/23 10/13/23 10/13/23 06:59 14:59 22:59 Intake Total 662.084 / 2687.717 317.933 / 568.438 9731 / 1617.933 Output Total 40 / 90 50 / 50 4011 / 4061 Balance 622.084 / 2597.717 267.933 / 267.933 -2711 / -2443.067 Weight last 48 hrs Weight 112.3 kg Weight 112.128 kg Weight 111.493 kg Weight 113.2 kg Physical Exam 2 Const: COMMON NORMALS: no acute distress and alert Chest: OTHER: right dialysis catheter, no signs of exit site infection per RN Neuro: SENSORIUM/ORIENTATION: Yes alert Urinary Catheter Management: Fuentes: Cath Placed During This Visit: yes Reason for Continuing Indwelling Catheter: Accurate Measurement of Urinary Output in Critically Ill Patients Urinary Catheter Date of Insertion: 10/08/23 Urinary Catheter Time of Insertion: 20:53 Data 10/13/23 05:02 10/13/23 05:02 Micro: Microbiology 10/08/23 14:17 Blood Culture - Final Blood NO GROWTH AFTER 5 DAYS 10/08/23 14:14 Blood Culture - Final Blood NO GROWTH AFTER 5 DAYS 10/08/23 21:10 Urine Culture - Final Urine,Clean Catch Radha krusei Other data: seen via telemedicine with assistance of RN at bedside A&P Assessment and plan (1) End stage kidney disease: (2) ESRD (end stage renal disease) on dialysis: 1. End-stage renal disease: On MWF schedule for dialysis 2. Acute limb ischemia - due to SFA ooclusion , s/p aortogram 3. Acute on chronic respiratory failure, now on NC O2 4. Anemia,recent GI bleed , CHUCK with hD. received transfusion pRBC during HD today 5. Recent infective endocarditis, completed IV abx Next HD Friday10/15/23 Plan Attestations 2 Medical Necessity Statement*: in ICU Time Spent in Patient Care: less than 15 minutes Coding Level of Care Code Acute Code for Chg Fwd Diagnoses End stage kidney disease N18.6 ESRD (end stage renal disease) on dialysis N18.6; Z99.2
--- NOTE | 2023-10-13 18:19 | PC.NURSE ---
Addendum entered by Jovanny Hall RN 10/13/23 18:24: Shift SUmmary: Uneventful shift Up to a chair for about 2 hours. Received dialysis. Received 1 unit of blood. Started on midodrine in hopes to get off of levophed. Heparin drip titrated per protocol, Will need to be shut off at 10am tommorow for upcoming debridement. Debridement scheduled for 4pm on 10/13/2023 NPO at midnight Original Note: Shift SUmmary: Uneventful shift Up to a chair for about 2 hours. Received dialysis. Received 1 unit of blood. Started on midodrine in hopes to get off of levophed. Heparin drip titrated per protocol, Will need to be shut off at 10am tommorow for upcoming debridement. Debridement scheduled for 4pm on 10/13/2023
--- NOTE | 2023-10-13 18:40 | PC.NURSE ---
Left toes discoloration is present, nurse is unsure if this has expanded during the shift. Picture taken and sent to Dr mtz and weight shifter nurse via voalte to track. Pulses still dopplerable, foot is warm, cap refill is less than 3 seconds.
[2023-10-13] MEDS: atorvastatin 40 mg Tablet PO (20:37)
[2023-10-13] MEDS: vancomycin 1,000 MG in sodium chloride 0.9% 250 ML 250 MG IV (20:37)
[2023-10-13] MEDS: metoprolol tartrate 25 mg Tablet PO (20:37)
[2023-10-13 20:56] LABS: Glucose Point of Care 139 mg/dL (70-110)
--- NOTE | 2023-10-13 21:56 | PC.NURSE ---
Lantus insulin not signed off or in refrigerator for administration. Contacted previous nurse and verified that medication had in fact been administered.
[2023-10-13 22:00] LABS: Partial Thromboplastin Time 41.9 SECONDS (23.9-36.7)
[2023-10-13] MEDS: fluconazole premix 100 MG in empty flexible container 1 EACH 50 MG IV (22:50)
[2023-10-14] VITALS (27 sets, daily range): BP systolic 83–138; BP diastolic 37–63; PULSE 81–115; RESP 11–30; TEMP 36.7–37.1; O2SAT 84–97
[2023-10-14 04:46] LABS: Basophils % 0.4 %; Eosinophils # 0.5 10^3/uL (0.0-0.8); Eosinophils % 6.7 %; Hematocrit 25.3 % (37-53); Lymphocytes # 0.6 10^3/uL (0.8-4.8); Lymphocytes % 9.4 %; Mean Corpuscular HGB Conc 30.8 g/dL (30-55); Mean Corpuscular Hemoglobin 29.9 pg (27-33); Mean Corpuscular Volume 96.9 fl (82-101); Mean Platelet Volume 10.3 fL (7.4-10.4); Monocytes # 0.6 10^3/uL (0.2-0.9); Monocytes % 8.7 %; Neutrophils # 4.95 10^3/uL (1.8-7.7); Neutrophils % 74.2 %; Nucleated Red Blood Cells % 0 %; Platelet Count 210 10^3/cmm (157-399); Red Blood Count 2.61 10^6/uL (3.85-5.65); Red Cell Distribution Width 16.6 % (12.1-15.1); White Blood Count 6.68 10^3/uL (3.29-11.43)
[2023-10-14 05:04] LABS: Alanine Aminotransferase < 5 U/L (0-41); Albumin Level 2.5 g/dL (3.5-5.2); Alkaline Phosphatase 186 U/L (40-130); Anion Gap 13.9 (5-19); Aspartate Amino Transferase 5 U/L (0-40); Blood Urea Nitrogen 18 mg/dL (8-23); Calcium 8.5 mg/dL (8.5-10.5); Carbon Dioxide 28 mmol/L (22-29); Chloride 100 mmol/L (98-107); Globulin 3.4 g/dL (1.3-4.6); Glomerular Filtration Rate 19.9 mL/min (90-130); Glucose 97 mg/dL (65-115); Osmolality Calculated 288 mOsm/kg (285-295); Potassium 3.9 mmol/L (3.5-5.1); Sodium 138 mmol/L (136-145); Total Bilirubin 0.7 mg/dL (0.15-1.2); Total Protein 5.9 g/dL (6.6-8.7)
[2023-10-14 05:06] LABS: Creatinine Clr Calc Pharmacy 31.7639
[2023-10-14 05:08] LABS: Partial Thromboplastin Time 61.8 SECONDS (23.9-36.7)
[2023-10-14] MEDS: amiodarone 200 mg Tablet PO (06:22)
[2023-10-14] MEDS: sevelamer 800 mg Tablet PO ×2 (08:00→20:46)
[2023-10-14] MEDS: vancomycin 125 mg Capsule PO ×2 (08:00→20:47)
[2023-10-14] MEDS: gabapentin 100 mg Capsule PO ×2 (08:00→19:35)
[2023-10-14] MEDS: midodrine 5 mg TABLET PO (08:01)
[2023-10-14] MEDS: metoprolol tartrate 25 mg Tablet PO ×2 (08:01→20:47)
[2023-10-14] MEDS: insulin glargine 100 units/1 mL 15 UNIT SUBCUT ×2 (08:19→19:21)
[2023-10-14 08:24] LABS: Glucose Point of Care 110 mg/dL (70-110)
[2023-10-14] MEDS: norepinephrine 4 MG/250 ML BAG 15 MG IV (08:31)
[2023-10-14] MEDS: pantoprazole 40 mg SDV IVP ×2 (11:51→23:21)
[2023-10-14] MEDS: meropenem 1,000 MG in sodium chloride 0.9% (plus) 50 ML 100 MG IV ×2 (11:52→23:20)
[2023-10-14 12:01] LABS: Glucose Point of Care 121 mg/dL (70-110)
--- NOTE | 2023-10-14 12:02 | P.PN_ITS ---
Vitals/I&O/Wt Last Vital Signs Temp 98.7 F 10/14/23 08:00 Pulse 115 H 10/14/23 09:00 Resp 15 10/14/23 09:00 BP 138/57 10/14/23 09:00 Pulse Ox 84 L 10/14/23 09:00 O2 Del Method Nasal Cannula 10/14/23 08:00 O2 Flow Rate 4 10/14/23 08:00 FiO2 30 10/13/23 03:46 10/13/23 10/14/23 10/14/23 22:59 06:59 14:59 Intake Total 1841.733 / 2159.666 718.167 / 2877.833 16.25 / 16.25 Output Total 4011 / 4061 30 / 4091 Balance -2169.267 / -1901.334 688.167 / -1213.167 16.25 / 16.25 Weight last 48 hrs Weight 251 lb 4.8 oz Weight 247 lb 9.266 oz Weight 247 lb 3.2 oz Physical Exam 2 Urinary Catheter Management: Fuentes: Cath Placed During This Visit: yes Reason for Continuing Indwelling Catheter: Accurate Measurement of Urinary Output in Critically Ill Patients Urinary Catheter Date of Insertion: 10/08/23 Urinary Catheter Time of Insertion: 20:53 Data 10/14/23 04:32 10/14/23 04:32 Micro: Microbiology 10/08/23 14:17 Blood Culture - Final Blood NO GROWTH AFTER 5 DAYS 10/08/23 14:14 Blood Culture - Final Blood NO GROWTH AFTER 5 DAYS A&P Assessment and plan (1) Critical limb ischemia of left lower extremity: (2) Wound of lower extremity: Plan He has ischemic and decubitus ulcers of his bilateral lower extremities covered by eschars. These are unable to be staged and require surgical debridement Sharp excisional debridement of bilateral lower extremity wounds Risks and benefits of the procedure, including but not limited to, bleeding, infection, scar, numbness, pain, recurrence, need for further surgery, possible progression to amputations, were explained to the patient. He is understand the risks and wishes to proceed. Attestations 2 Medical Necessity Statement*: Per primary Coding Level of Care Code [facility] Diagn[facility] Critical limb ischemia of left lower extremity I70.222 Wound of lower extremity S81.809A
--- NOTE | 2023-10-14 14:23 | P.ANESASSM_ITS ---
Pre-Anesthetic Assessment Height/Weight: Height 1.83 m Weight 113.988 kg Temp Pulse Resp BP Pulse Ox O2 Del Method O2 Flow Rate 98.8 F 91 14 93/61 89 L Room Air 4 10/14/23 12:00 10/14/23 12:00 10/14/23 12:00 10/14/23 12:00 10/14/23 12:00 10/14/23 12:00 10/14/23 12:00 FiO2 30 10/13/23 03:46 Preop Diagnosis: Critical limb ischemia of left lower extremity Operation Date: 10/14/23 16:30 Proposed Procedures p Debridement(Bilateral) - Alexander Baxter DO Familial anesthetic complications: None Was Beta Raf taken within 24 hours: Yes Was Clonidine taken within 24 hours: N/A Last intake: Intake Last Liquid Date 10/14/23 Last Liquid Time 23:00 Last Solid Date 10/13/23 Last Solid Time 18:00 Social Tobacco and No alcohol Exam alert, oriented x 3, clear to auscultation bilaterally and regular rate & rhythm Airway Mallampati: Class III Dentition: chipped CV/HEM Anemia, Congestive Heart Failure and Peripheral Vascular Disease Infective endocarditis Anesthetic Plan ASA status: 4 Anesthesia: General Risk of > 500 ml blood loss (7ml/kg in children): No Medications/Allergies Home Medications Medication Instructions Recorded Confirmed Last Taken Type albuterol sulfate 2.5 mg/3 mL 2.5 mg inhalation Q4H PRN 10/03/22 10/08/23 Unknown History (0.083 %) solution for nebulization Shortness Of Breath amiodarone 200 mg tablet 200 mg PO QAM 10/03/22 10/08/23 10/08/23 History acetaminophen 325 mg tablet 650 mg PO Q6H PRN Pain 08/12/23 10/08/23 08/04/23 History bisacodyl 10 mg rectal suppository 10 mg TX DAILY PRN Constipation 08/12/23 10/08/23 Unknown History hydrocodone 5 mg-acetaminophen 325 1 tab PO Q6H PRN Pain 08/12/23 10/08/23 10/08/23 History mg tablet insulin aspart U-100 100 unit/mL See Rx Instructions .Route .COMPLEX 08/12/23 10/08/23 10/08/23 History (3 mL) subcutaneous pen (Novolog FlexPen U-100 Insulin aspart) metoprolol tartrate 50 mg tablet See Rx Instructions .Route .COMPLEX 08/12/23 10/08/23 10/08/23 History nystatin 100,000 unit/gram topical 1 applic topical DAILY 08/12/23 10/08/23 10/07/23 History powder Saccharomyces boulardii 250 mg 250 mg PO BID 09/14/23 10/08/23 10/08/23 History capsule albuterol sulfate 90 mcg/actuation 2 puff inhalation Q6H PRN 09/14/23 10/08/23 Unknown History aerosol inhaler (Ventolin HFA) Shortness Of Breath bumetanide 1 mg tablet See Rx Instructions .Route .COMPLEX 09/14/23 10/08/23 Unknown History calcium acetate 667 mg tablet 667 mg PO TID 09/14/23 10/08/23 10/08/23 History clopidogrel 75 mg tablet 75 mg PO DAILY 09/14/23 10/08/23 10/08/23 History gabapentin 100 mg capsule 100 mg PO TID 09/14/23 10/08/23 10/08/23 History vancomycin 125 mg capsule 125 mg PO TID #60 caps 09/25/23 10/08/23 10/08/23 Rx insulin glargine 100 unit/mL (3 15 unit SUBCUT QPM 10/08/23 10/08/23 10/07/23 History mL) subcutaneous pen (Lantus Solostar U-100 Insulin) metoprolol tartrate 50 mg tablet See Rx Instructions .Route .COMPLEX 10/08/23 10/08/23 10/07/23 History sevelamer carbonate 800 mg tablet 800 mg PO TID 10/08/23 10/08/23 10/08/23 History (Renvela) Allergies Allergy/AdvReac Type Severity Reaction Status Date / Time amoxicillin [From Augmentin] Allergy Mild rash Verified 09/12/23 09:18 clavulanic acid Allergy Mild rash Verified 09/12/23 09:18 [From Augmentin] levofloxacin Allergy Mild rash Verified 09/12/23 09:18 Current Medications Generic Name Dose Route Start Last Admin Trade Name Freq PRN Reason Stop Dose Admin Amiodarone HCl 200 mg 10/09/23 06:00 10/14/23 06:22 Amiodarone 200 Mg Tablet PO 200 mg QAM JAIDEN Administration Atorvastatin Calcium 40 mg 10/08/23 23:03 10/13/23 20:37 Atorvastatin 40 Mg Tablet PO 40 mg BEDTIME JAIDEN Administration Clopidogrel Bisulfate 75 mg 10/09/23 09:00 10/13/23 09:56 Clopidogrel 75 Mg Tablet PO 75 mg DAILY JAIDEN Administration Gabapentin 100 mg 10/09/23 09:00 10/14/23 08:00 Gabapentin 100 Mg Capsule PO 100 mg TID JAIDEN Administration Meropenem 1,000 mg/ Sodium 50 mls @ 100 mls/hr 10/08/23 21:45 10/14/23 11:52 Chloride IV 100 mls/hr Q12H JAIDEN Administration Protocol norepinephrine 4 mg in 250 mls @ 0 mls/hr 10/09/23 00:45 10/14/23 09:36 Levophed IV 2 mcg/min .Q0M JAIDEN 7.5 mls/hr Titration Protocol Per Protocol Vancomycin HCl 1,000 mg/ 250 mls @ 250 mls/hr 10/11/23 21:00 10/14/23 03:52 Sodium Chloride IV Infused Q48H JAIDEN Infusion Fluconazole 100 mg/ N/A 50 mls @ 50 mls/hr 10/12/23 23:00 10/14/23 03:53 IV Infused Q24H JADIEN Infusion Insulin Glargine 15 unit 10/09/23 18:00 10/14/23 08:19 Insulin Glargine 100 Units/1 Ml SUBCUT 15 unit QPM JAIDEN Administration Insulin Human Lispro 0 unit 10/09/23 08:00 10/14/23 12:12 Insulin Lispro 100 Unit/1 Ml SUBCUT Not Given TIDWM JAIDEN Protocol Metoprolol Tartrate 25 mg 10/10/23 11:40 10/14/23 08:01 Metoprolol Tartrate 25 Mg Tablet PO 25 mg BID@0900,2100 JAIDEN Administration Pantoprazole Sodium 40 mg 10/08/23 23:03 10/14/23 11:51 Pantoprazole 40 Mg Sdv IVP 40 mg Q12H JAIDEN Administration Sevelamer Carbonate 800 mg 10/08/23 21:00 10/14/23 08:00 Sevelamer 800 Mg Tablet PO 800 mg TID JAIDEN Administration Vancomycin HCl 125 mg 10/09/23 09:00 10/14/23 08:00 Vancomycin 125 Mg Capsule PO 125 mg TID JAIDEN Administration PFSH Anesthesia Medical History Urinary tract infection CHF exacerbation History of Clostridioides difficile colitis Bilateral pleural effusion Pulmonary arterial hypertension Acute respiratory distress syndrome Pressure ulcer of right heel, unstageable Shock Septic shock NSTEMI (non-ST elevated myocardial infarction) Aspiration pneumonia Pulmonary edema Acute hypoxic respiratory failure Acute encephalopathy Hypoglycemia Altered mental status Edema Decubitus ulcer of heel, unstageable Enterococcus faecalis infection Endocarditis Hypotension Chronic anemia Anemia Sepsis Afib ESRD (end stage renal disease) on dialysis Hyponatremia DM2 (diabetes mellitus, type 2) Pressure ulcer of left leg, stage 2 Pressure ulcer of right leg, stage 2 Wound of left foot Excoriation of groin Excoriation of abdomen Wound of left lower extremity Pressure ulcer of left buttock, stage 2 Pressure ulcer of right buttock, stage 2 Wound of right lower extremity Lymphedema Stasis dermatitis Pressure sore on buttocks Inability to perform activities of daily living Kidney dysfunction Fluid overload Cellulitis Hemodialysis status Temporary dialysis catheter placement Acute kidney failure Bradycardia Anasarca Bilateral lower leg cellulitis Metabolic acidosis Hyperkalemia DKA (diabetic ketoacidosis) Falls Generalized weakness FRANCISCO (acute kidney injury) CHF (congestive heart failure) Chronic respiratory failure with hypoxia COPD (chronic obstructive pulmonary disease) Social History Smoking and tobacco/nicotine status: former use of tobacco/nicotine Data Anesthesia 10/14/23 04:32 10/14/23 04:32 Short CBC 10/13/23 10/14/23 Range/Units 05:02 04:32 WBC 6.45 6.68 (3.29-11.43) 10^3/uL Hgb 7.20 L 7.80 L (11.27-16.99) g/dL Hct 23.9 L 25.3 L (37-53) % MCV 97.6 96.9 (82-101) fl Plt Count 186 210 (157-399) 10^3/cmm Neut % (Auto) 78.6 74.2 % Neut # (Auto) 5.07 4.95 (1.8-7.7) 10^3/uL BMP 10/13/23 10/14/23 05:02 04:32 Sodium 138 138 Potassium 4.4 3.9 Chloride 100 100 Carbon Dioxide 26 28 BUN 25 H 18 Creatinine 4.0 H 3.2 H Glucose 87 97 Calcium 8.6 8.5 Liver Function 10/14/23 Range/Units 04:32 Total Bilirubin 0.7 (0.15-1.2) mg/dL AST 5 (0-40) U/L ALT < 5 (0-41) U/L Alkaline Phosphatase 186 H (40-130) U/L Albumin 2.5 L (3.5-5.2) g/dL Blood Bank 10/13/23 11:18 Blood Type A Positive Rho(D) Type Rh positive Antibody Screen Negative Coags 10/12/23 10/13/23 10/13/23 19:55 05:02 13:27 APTT 55.6 H 53.9 H 114.6 H D 10/13/23 10/14/23 21:17 04:32 APTT 41.9 H D 61.8 H Microbiology 10/08/23 14:17 Blood Culture - Final Blood NO GROWTH AFTER 5 DAYS 10/08/23 14:14 Blood Culture - Final Blood NO GROWTH AFTER 5 DAYS Cardiac Studies: 2 Echocardiogram 10/08/23 Echocardiogram Limited Views 09/15/23 Transesophageal Echocardiogram 08/14/23
--- NOTE | 2023-10-14 16:14 | P.PN_ITS ---
Subjective 2 Subjective: Awaiting surgical debridement possibly today. Pain mostly controlled. BP soft Vitals/I&O/Wt Last Vital Signs Temp 98.8 F 10/14/23 12:00 Pulse 89 10/14/23 14:00 Resp 14 10/14/23 12:00 BP 93/61 10/14/23 12:00 Pulse Ox 89 L 10/14/23 12:00 O2 Del Method Room Air 10/14/23 12:00 O2 Flow Rate 4 10/14/23 12:00 FiO2 30 10/13/23 03:46 10/14/23 10/14/23 10/14/23 06:59 14:59 22:59 Intake Total 718.167 / 2877.833 16.25 / 16.25 Output Total 30 / 4091 Balance 688.167 / -1213.167 16.25 / 16.25 Weight last 48 hrs Weight 251 lb 4.8 oz Weight 247 lb 9.266 oz Weight 247 lb 3.2 oz Physical Exam 2 Const: COMMON NORMALS: no acute distress and patient oriented x3 HENMT: COMMON NORMALS: normocephalic HEAD & SCALP: normocephalic Eye: COMMON NORMALS: Equal, round and reactive pupils present PUPIL: Yes Equal, round and reactive pupils present Neck/C-Spine: COMMON NORMALS: no JVD Chest: OTHER: Dialysis catheter in place Resp: COMMON NORMALS: normal respiratory effort, No retractions, No use of accessory muscles and clear to auscultation bilaterally AUSCULTATION: clear to auscultation bilaterally Cardio: COMMON NORMALS: no JVD, regular rate, regular rhythm, S1 normal heart sound present and S2 normal heart sound present RATE: regular rate RHYTHM: regular rhythm HEART SOUNDS: S1 normal heart sound present and S2 normal heart sound present GI: COMMON NORMALS: Normal to inspection, nondistended, normoactive bowel sounds present, Soft to palpation and non-tender PALPATION: Yes Soft to palpation Extremity: NARRATIVE EXTREMITY EXAM: Edema, swelling, redness multiple wounds seen Neuro: COMMON NORMALS: patient oriented x3 Psych: COMMON NORMALS: mental status grossly normal Urinary Catheter Management: Fuentes: Cath Placed During This Visit: yes Reason for Continuing Indwelling Catheter: Accurate Measurement of Urinary Output in Critically Ill Patients Urinary Catheter Date of Insertion: 10/08/23 Urinary Catheter Time of Insertion: 20:53 Data 10/14/23 04:32 10/14/23 04:32 Micro: Microbiology 10/08/23 14:17 Blood Culture - Final Blood NO GROWTH AFTER 5 DAYS 10/08/23 14:14 Blood Culture - Final Blood NO GROWTH AFTER 5 DAYS A&P Assessment and plan (1) Acute lower limb ischemia: (2) Arterial occlusion: (3) Congestive heart failure: Qualifiers: Heart failure chronicity: acute on chronic Heart failure type: u nspecified Qualified Code(s): I50.9 - Heart failure, unspecified (4) Sepsis: Qualifiers: Sepsis acute organ dysfunction status: unspecified Sepsis type: sepsis due to unspecified organism Qualified Code(s): A41.9 - Sepsis, unspecified organism (5) Abscess or cellulitis of foot: (6) End stage kidney disease: (7) Acute anemia: (8) GI bleed: (9) Elevated lactic acid level: (10) Urinary tract infection: Plan Acute limb ischemia - RULED OUT Chronic PAD ? Left lower extremity, pale, pulselessness, cool, clammy, pulses not palpable ? Duplex arterial ultrasound shows left SFA occlusion ? Plan ? Concerns for acute embolization from atrial fibrillation resulting in left SFA occlusion? Other possibilities include septic emboli from his history of endocarditis although last echocardiogram shows healed vegetations Continue heparin drip, statin, Plavix (will restart after surgery) Acute on chronic anemia, concerns for GI bleed ? During his hospital hospitalization hemoglobin was low at 6.6, requiring 1 unit PRBC, his anticoagulant therapy had to be discontinued on discharge, he has a history of atrial fibrillation ? Hemoglobin checked, blood transfusion ordered yesterday, will likely transfuse if hgb < 7 Hypotension -Will start patient on midodrine. Try to taper off Levophed History of bacterial endocarditis, history of multiple valvular vegetation including aortic, mitral ? Has completed antibiotic therapy ? Repeat cardiac echocardiogram Bilateral lower extremity diabetic ulcers, cellulitis ? On examination bilateral lower extremities have diabetic ulcers, with erythema, swelling concerning for cellulitis ? With elevated lactic acid concerning for cellulitis ? Continue vancomycin, meropenem Elevated lactic acid, ? Secondary to acute limb ischemia, slow GI bleed, cellulitis, - consult surgery UTI ? With history of Radha Antonio GI, history of ESBL infection ? Switch Zosyn to meropenem ? Continue Diflucan Sepsis from diabetic ulcers, cellulitis, UTI Type 2 diabetes mellitus, low-dose sliding scale End-stage renal disease, on dialysis CHF, pulmonary edema seen on chest x-ray with elevated BNP over 34,000, currently on 3 L -Currently does not look like he is in respiratory distress ? Nephrology has been consulted plan on dialysis for fluid overload Atrial fibrillation, heart rates in the 112's, continue p.o. amiodarone will consider amiodarone drip --increase dose of midodrine, prn levophed Full code, confirmed with this patient multiple times ? Heparin drip ? Protonix for GI prophylaxis Attestations 2 Medical Necessity Statement*: Geronimo Barahona requires ongoing inpatient care for abx, pressure monitoing and support, surgical consult Coding Level of Care Code 36061 Diagnoses Acute lower limb ischemia I99.8 Arterial occlusion I70.90 Congestive heart failure I50.9 Heart failure chronicity: acute on chronic Heart failure type: unspecified Sepsis A41.9 Sepsis acute organ dysfunction status: unspecified Sepsis type: sepsis due to unspecified organism Abscess or cellulitis of foot End stage kidney disease N18.6 Acute anemia D64.9 GI bleed K92.2 Elevated lactic acid level R79.89 Urinary tract infection N39.0
--- NOTE | 2023-10-14 16:58 | PM.PN ---
Subjective Subjective: going to OR for surgical debridement leg wounds Vitals/I&O/Wt Last Vital Signs Temp 98.8 F 10/14/23 12:00 Pulse 89 10/14/23 14:00 Resp 14 10/14/23 12:00 BP 93/61 10/14/23 12:00 Pulse Ox 89 L 10/14/23 12:00 O2 Del Method Room Air 10/14/23 12:00 O2 Flow Rate 4 10/14/23 12:00 FiO2 30 10/13/23 03:46 10/14/23 10/14/23 10/14/23 06:59 14:59 22:59 Intake Total 718.167 / 2877.833 16.25 / 16.25 Output Total / 4091 Balance 688.167 / -1213.167 16.25 / 16.25 Weight last 48 hrs Weight 113.988 kg Weight 112.3 kg Weight 112.128 kg Physical Exam Urinary Catheter Management: Fuentes: Cath Placed During This Visit: yes Reason for Continuing Indwelling Catheter: Accurate Measurement of Urinary Output in Critically Ill Patients Urinary Catheter Date of Insertion: 10/08/23 Urinary Catheter Time of Insertion: 20:53 Data 10/14/23 04:32 10/14/23 04:32 Micro: Microbiology 10/08/23 14:17 Blood Culture - Final Blood NO GROWTH AFTER 5 DAYS 10/08/23 14:14 Blood Culture - Final Blood NO GROWTH AFTER 5 DAYS Other data: seen via telemedicine with assistance of RN at bedside A&P Assessment and plan (1) End stage kidney disease: (2) ESRD (end stage renal disease) on dialysis: 1. End-stage renal disease: On [facility] schedule for dialysis 2. Acute limb ischemia - due to SFA ooclusion , s/p aortogram 3. Acute on chronic respiratory failure, now on [place] O2 4. Anemia,recent GI bleed , CHUCK with hD. received transfusion pRBC during HD yesterday 5. Recent infective endocarditis, completed IV abx Next HD Friday10/15/23. 4h, 2L UF, 3K bath as BP tolerates Plan Attestations Medical Necessity Statement*: see above Time Spent in Patient Care: less than 15 minutes Coding Level of Care Code Acute Code for Chg Fwd Diagnoses End stage kidney disease N18.6 ESRD (end stage renal disease) on dialysis N18.6; Z99.2
[2023-10-14 17:27] LABS: Glucose Point of Care 116 mg/dL (70-110)
--- NOTE | 2023-10-14 18:04 | PM.OP ---
Operative Report Date of procedure: October 15, 2023 Pre-op diagnosis: Bilateral lower extremity wounds Post-op diagnosis: same Procedure done: Sharp excisional debridement of right heel wound measuring 7.5 x 6.5 cm, stage III ulceration Sharp excisional debridement of left leg wounds measuring 8 x 2.2 cm and 2 x 1.9 cm, stage II ulcerations Specimens removed/disposition: Tissue culture Surgeon: Alexander Baxter DO Anesthesia: General Estimated blood loss (mL): 5 Complications: None apparent Brief History: This is a very pleasant 62-year-old gentleman who is currently in the intensive care unit with peripheral arterial disease and wounds to his bilateral lower extremities covered by eschars. Sharp excisional debridement is indicated. The risks and benefits were explained documented. Procedure: Patient was wheeled operative room placed on the OR table in the supine position. General tracheal ovation was achieved by department anesthesia. Timeout was performed. All present were in agreement. The bilateral lower extremities were inspected prepped and draped in usual sterile fashion. Using Bovie cautery and cut mode, a large scar was removed from the right heel. Bovie cautery was used to remove the entire eschar down to healthy bleeding tissue. Wound measured 7.5 x 6.5 cm. Attention was then brought to the left leg. There were 2 wounds on the posterior aspect of the left leg covered by eschars. These were removed in a similar fashion and measured 2.4 x 2.2 cm and 2 x 1.9 cm. Right heel ulcer was a stage III and left leg ulcers were both stage II. Wet-to-dry dressings were applied. Patient tolerated procedure well.
--- NOTE | 2023-10-14 18:07 | PC.NURSE ---
just before leaving for surgery, NUrse double checked IVs to left arm. Left wrist IV was occluded, Left forearm IV was sluggish but functional. NUrse started new IV to the right upper arms via Ulatrasound, flushes easily and draws blood easily, levophed moved to new line.
--- NOTE | 2023-10-14 18:09 | PC.NURSE ---
Addendum entered by Jovanny Hall RN 10/14/23 19:14: Just before shift change, patient came back to room. Surgery was uneventful no blood loss. Wounds debrided. Patient is currently awake, alert, and oriented. BP: 103/60, HR: 112, SPO2: 91%, Temp:97.9. Nurse called Crystal and updated her. Original Note: SHift SUmmary: Uneventful shift. Patient rested in bed throughout the day. Remained NPO due to upcoming surgery. Surgery staff took patient to OR for debridement at approximately 1730. Patient is still in surgery at the time of this note.
--- NOTE | 2023-10-14 18:45 | ANE.PACU2 ---
Inpatient post-anesthesia follow up: Airway intact: Yes Vital signs: Temperature 97.6 F Pulse Rate 100 Respiratory Rate 18 Blood Pressure 114/57 Pulse Oximetry 93 Oxygen Delivery Me thod Nasal Cannula Oxygen Flow Rate 4 Fraction of Inspir ed Oxygen 30 Hydration adequate: Yes Nausea and vomiting: No Pain level: 1 Mental status: Baseline
[2023-10-14] MEDS: acetaminophen 325 mg Tablet 650 MG PO (19:00)
[2023-10-14] MEDS: morphine 4 mg/mL SDV 1 mL IVP (19:34)
--- NOTE | 2023-10-14 19:46 | PC.NURSE ---
Pain: Patient was complaining of 9/10 pain after returning to unit from debridement of feet wounds. PRN tylenol was not helping. Dr. Gutierrez was contacted and gave telephone orders to give morphine 4mg IVP ONCE and give scheduled gabapentin early.
[2023-10-14] MEDS: midodrine 5 mg TABLET 10 MG PO (20:46)
[2023-10-14] MEDS: atorvastatin 40 mg Tablet PO (20:47)
[2023-10-14 21:18] LABS: Glucose Point of Care 173 mg/dL (70-110)
[2023-10-14] MEDS: fluconazole premix 100 MG in empty flexible container 1 EACH 50 MG IV (22:04)
[2023-10-15] VITALS (31 sets, daily range): BP systolic 76–132; BP diastolic 43–66; PULSE 68–114; RESP 12–25; TEMP 36.2–36.8; O2SAT 81–100
--- NOTE | 2023-10-15 01:26 | PC.NURSE ---
Bipap applied this evening, pt became angry with mask because he could not itch is nose. Mask removed so he could do so, and reapplied. Pt began yelling out and demanded this nurse remove mask because he could not see. Explained that if he was going to sleep he needed to wear it to prevent CO2 retention. Pt began yelling, attempting to pull mask off, and yelled Get this mother fucker off of my face before I rip it off! I'm not wearing this damn thing! . Mask removed and oxygen applied via NC. Pt was thankful and apologetic for becoming angry. Stated he was not going to wear the bipap but was agreeable to NC.
[2023-10-15 04:48] LABS: Basophils % 0.2 %; Eosinophils % 0.2 %; Hematocrit 27.9 % (37-53); Lymphocytes # 0.2 10^3/uL (0.8-4.8); Lymphocytes % 4.5 %; Mean Corpuscular HGB Conc 30.1 g/dL (30-55); Mean Corpuscular Hemoglobin 29.6 pg (27-33); Mean Corpuscular Volume 98.2 fl (82-101); Mean Platelet Volume 9.8 fL (7.4-10.4); Monocytes # 0.2 10^3/uL (0.2-0.9); Monocytes % 3.2 %; Neutrophils # 4.87 10^3/uL (1.8-7.7); Neutrophils % 91.2 %; Nucleated Red Blood Cells % 0 %; Platelet Count 216 10^3/cmm (157-399); Red Blood Count 2.84 10^6/uL (3.85-5.65); Red Cell Distribution Width 16.4 % (12.1-15.1); White Blood Count 5.34 10^3/uL (3.29-11.43)
[2023-10-15 05:18] LABS: Anion Gap 15.6 (5-19); Blood Urea Nitrogen 29 mg/dL (8-23); Calcium 8.6 mg/dL (8.5-10.5); Carbon Dioxide 26 mmol/L (22-29); Chloride 101 mmol/L (98-107); Glomerular Filtration Rate 16.3 mL/min (90-130); Glucose 150 mg/dL (65-115); Osmolality Calculated 295 mOsm/kg (285-295); Potassium 4.6 mmol/L (3.5-5.1); Sodium 138 mmol/L (136-145)
[2023-10-15] MEDS: amiodarone 200 mg Tablet PO (05:18)
[2023-10-15 05:22] LABS: Creatinine Clr Calc Pharmacy 27.0043
[2023-10-15] MEDS: acetaminophen 325 mg Tablet 650 MG PO ×4 (05:46→23:20)
--- NOTE | 2023-10-15 07:42 | PC.HD ---
Per sample mounter's heparin-free dialysis orders, no pre-treatment heparin was administered prior to HD initation. Per sample mounter, ok to dwell heparin in catheter limbs at treatment conclusion. Patient with low BPs; per hypotension dialysis orders, dialysate temperature was reduced to 35.0C prior to treatment initiation.
[2023-10-15 08:07] LABS: Glucose Point of Care 146 mg/dL (70-110)
[2023-10-15] MEDS: metoprolol tartrate 25 mg Tablet PO ×2 (08:36→20:24)
[2023-10-15] MEDS: clopidogrel 75 mg Tablet PO (08:37)
[2023-10-15] MEDS: sevelamer 800 mg Tablet PO ×3 (08:37→20:23)
[2023-10-15] MEDS: gabapentin 100 mg Capsule PO ×3 (08:37→20:23)
[2023-10-15] MEDS: vancomycin 125 mg Capsule PO ×3 (08:37→20:23)
[2023-10-15] MEDS: midodrine 5 mg TABLET 10 MG PO ×3 (08:37→20:24)
[2023-10-15] MEDS: insulin lispro 100 unit/1 mL SUBCUT (08:38)
--- NOTE | 2023-10-15 09:09 | P.PN_ITS ---
Subjective 2 Subjective: s/p debridement legs last evening seen during hemodialysis charge nurse reports no catheter exit site issues Vitals/I&O/Wt Last Vital Signs Temp 97.2 F L 10/15/23 07:41 Pulse 109 H 10/15/23 08:10 Resp 18 10/15/23 08:10 BP 93/51 10/15/23 08:00 Pulse Ox 100 10/15/23 08:10 O2 Del Method Nasal Cannula 10/15/23 08:10 O2 Flow Rate 7 10/15/23 08:10 FiO2 30 10/15/23 03:59 10/14/23 10/15/23 10/15/23 22:59 06:59 14:59 Intake Total 290 / 306.25 479.25 / 785.50 Output Total 150 / 150 Balance 290 / 306.25 329.25 / 635.50 Weight last 48 hrs Weight 114.487 kg Weight 113.988 kg Weight 112.3 kg Physical Exam 2 Urinary Catheter Management: Fuentes: Cath Placed During This Visit: yes Reason for Continuing Indwelling Catheter: Accurate Measurement of Urinary Output in Critically Ill Patients Urinary Catheter Date of Insertion: 10/08/23 Urinary Catheter Time of Insertion: 20:53 Data 10/15/23 04:29 10/15/23 04:29 Other data: seen via telemedicine with assistance of RN at bedside A&P Assessment and plan (1) End stage kidney disease: (2) ESRD (end stage renal disease) on dialysis: 1. End-stage renal disease: On MWF schedule for dialysis. Clotted system twice today with inability to return blood 2. Acute limb ischemia - due to SFA ooclusion , s/p aortogram, s/p debridemnt legs 3. Acute on chronic respiratory failure, now on NC O2 4. Anemia,recent GI bleed , CHUCK with hD. received transfusion pRBC during HD Friday. Hb stable 5. Recent infective endocarditis, completed IV abx Next HD Friday10/17/23. 4h, 2L UF, 3K bath as BP tolerates. Will use heparin Plan Attestations 2 Medical Necessity Statement*: critically ill in ICU Time Spent in Patient Care: 16 - 35 minutes Coding Level of Care Code Acute Code for Chg Fwd Diagnoses End stage kidney disease N18.6 ESRD (end stage renal disease) on dialysis N18.6; Z99.2
--- NOTE | 2023-10-15 09:48 | XRR_ITS ---
PROCEDURE INFORMATION: Exam: XR Chest Exam date and time: 10/15/2023 1:03 PM Age: 62 years old Clinical indication: Shortness of breath; Additional info: Hypoxemia TECHNIQUE: Imaging protocol: Radiologic exam of the chest. Views: 1 view. COMPARISON: CR XR chest 1V portable [id number] 10/08/2023 2:19 PM FINDINGS: Tubes, catheters and devices: Right jugular central venous catheter with tip in the right atrium. Airway: Patent Lungs: Bilateral perihilar haziness and streaky-like opacities. Mild segmental bronchial wall thickening. Bilateral basal ground-glass and patchy consolidations. Pleural spaces: There is blunting of the right costophrenic angle. There is blunting of the left costophrenic angle. Heart/Mediastinum: Cardiomediastinal silhouette is magnified due to technique. Vasculature: Calcified aortic knob. Bones/joints: No acute skeletal abnormality or aggressive osseous lesion. XR/XR chest 1V portable [id number] IMPRESSION: Volume overload, evidenced by small to moderately sized bilateral pleural effusions and [id number] basal pulmonary edema. Superimposed infectious pneumonic process should be entertained in the appropriate clinical setting.
--- NOTE | 2023-10-15 10:03 | PC.HD ---
During telenephrology visit with patient, machine pressures suddenly fluctuated and circuit clotted without warning. Unable to rinse blood back to patient; therefore, patient's blood loss 300 mL. HD catheter flushed with NSS. Circuit restrung, and treatment was restarted. Due to increasing machine A/P pressures, dialysis lines were reversed and treatment was continued. UF goal increased by 300 to account for additional NSS priming fluid received after restringing of circuit.
--- NOTE | 2023-10-15 12:28 | PC.NURSE ---
Dialysis nurse reported to this nurse that dialysis lines clotted two separate times and that resulted in 600mL blood loss. Dialysis nurse was unable to report blood loss on charting so this nurse documented in the I&O.
[2023-10-15] MEDS: pantoprazole 40 mg SDV IVP ×2 (12:44→22:07)
[2023-10-15] MEDS: meropenem 1,000 MG in sodium chloride 0.9% (plus) 50 ML 100 MG IV ×2 (12:45→22:39)
[2023-10-15 12:52] LABS: Glucose Point of Care 99 mg/dL (70-110)
--- NOTE | 2023-10-15 14:08 | P.PN_ITS ---
Subjective 2 Subjective: s/p debridement of surgical wounds of legs family at bedside Vitals/I&O/Wt Last Vital Signs Temp 97.2 F L 10/15/23 07:41 Pulse 111 H 10/15/23 12:00 Resp 25 H 10/15/23 12:00 BP 97/60 10/15/23 12:00 Pulse Ox 100 10/15/23 08:10 O2 Del Method Nasal Cannula 10/15/23 08:10 O2 Flow Rate 7 10/15/23 08:10 FiO2 30 10/15/23 03:59 10/14/23 10/15/23 10/15/23 22:59 06:59 14:59 Intake Total 290 / 306.25 479.25 / 785.50 Output Total 150 / 150 600 / 600 Balance 290 / 306.25 329.25 / 635.50 -600 / -600 Weight last 48 hrs Weight 252 lb 6.4 oz Weight 251 lb 4.8 oz Weight 247 lb 9.266 oz Physical Exam 2 Const: COMMON NORMALS: no acute distress and patient oriented x3 HENMT: COMMON NORMALS: normocephalic HEAD & SCALP: normocephalic Eye: COMMON NORMALS: Equal, round and reactive pupils present PUPIL: Yes Equal, round and reactive pupils present Neck/C-Spine: COMMON NORMALS: no JVD Chest: OTHER: Dialysis catheter in place Resp: COMMON NORMALS: normal respiratory effort, No retractions, No use of accessory muscles and clear to auscultation bilaterally AUSCULTATION: clear to auscultation bilaterally Cardio: COMMON NORMALS: no JVD, regular rate, regular rhythm, S1 normal heart sound present and S2 normal heart sound present RATE: regular rate RHYTHM: regular rhythm HEART SOUNDS: S1 normal heart sound present and S2 normal heart sound present GI: COMMON NORMALS: Normal to inspection, nondistended, normoactive bowel sounds present, Soft to palpation and non-tender PALPATION: Yes Soft to palpation Extremity: NARRATIVE EXTREMITY EXAM: Edema, swelling, redness multiple wounds seen Neuro: COMMON NORMALS: patient oriented x3 Psych: COMMON NORMALS: mental status grossly normal Urinary Catheter Management: Fuentes: Cath Placed During This Visit: yes Reason for Continuing Indwelling Catheter: Accurate Measurement of Urinary Output in Critically Ill Patients Urinary Catheter Date of Insertion: 10/08/23 Urinary Catheter Time of Insertion: 20:53 Data 10/15/23 04:29 10/15/23 04:29 Micro: Microbiology 10/14/23 18:20 Gram Stain - Final Foot - #1 A&P Assessment and plan (1) Acute lower limb ischemia: (2) Arterial occlusion: (3) Congestive heart failure: Qualifiers: Heart failure chronicity: acute on chronic Heart failure type: u nspecified Qualified Code(s): I50.9 - Heart failure, unspecified (4) Sepsis: Qualifiers: Sepsis acute organ dysfunction status: unspecified Sepsis type: sepsis due to unspecified organism Qualified Code(s): A41.9 - Sepsis, unspecified organism (5) Abscess or cellulitis of foot: (6) End stage kidney disease: (7) Acute anemia: (8) GI bleed: (9) Elevated lactic acid level: (10) Urinary tract infection: Plan Acute limb ischemia - RULED OUT Chronic PAD ? Left lower extremity, pale, pulselessness, cool, clammy, pulses not palpable ? Duplex arterial ultrasound shows left SFA occlusion ? Plan ? Concerns for acute embolization from atrial fibrillation resulting in left SFA occlusion? Other possibilities include septic emboli from his history of endocarditis although last echocardiogram shows healed vegetations Continue heparin drip, statin, Plavix (will restart after surgery) Acute on chronic anemia, concerns for GI bleed ? During his hospital hospitalization hemoglobin was low at 6.6, requiring 1 unit PRBC, his anticoagulant therapy had to be discontinued on discharge, he has a history of atrial fibrillation ? Hemoglobin checked, blood transfusion ordered previously will transfuse if hgb < 7 Hypotension -Will start patient on midodrine. Try to taper off Levophed History of bacterial endocarditis, history of multiple valvular vegetation including aortic, mitral ? Has completed antibiotic therapy ? Repeat cardiac echocardiogram Bilateral lower extremity diabetic ulcers, cellulitis ? On examination bilateral lower extremities have diabetic ulcers, with erythema, swelling concerning for cellulitis ? With elevated lactic acid concerning for cellulitis ? Continue vancomycin, meropenem Elevated lactic acid, ? Secondary to acute limb ischemia, slow GI bleed, cellulitis, - consult surgery , s/p debridement UTI ? With history of Ardha Antonio GI, history of ESBL infection ? Switch Zosyn to meropenem ? Continue Diflucan Sepsis from diabetic ulcers, cellulitis, UTI Type 2 diabetes mellitus, low-dose sliding scale End-stage renal disease, on dialysis CHF, pulmonary edema seen on chest x-ray with elevated BNP over 34,000, currently on 3 L -Currently does not look like he is in respiratory distress ? Nephrology has been consulted plan on dialysis for fluid overload Atrial fibrillation, heart rates in the 112's, continue p.o. amiodarone will consider amiodarone drip --increase dose of midodrine, prn levophed Full code, confirmed with this patient multiple times ? Heparin drip ? Protonix for GI prophylaxis Attestations 2 Medical Necessity Statement*: Geronimo Susie Garciay requires ongoing inpatient care for abx, wound care, therapy, dialysis , blood pressure monitoring and treatment Coding Level of Care Code 89186 Diagnoses Acute lower limb ischemia I99.8 Arterial occlusion I70.90 Congestive heart failure I50.9 Heart failure chronicity: acute on chronic Heart failure type: unspecified Sepsis A41.9 Sepsis acute organ dysfunction status: unspecified Sepsis type: sepsis due to unspecified organism Abscess or cellulitis of foot End stage kidney disease N18.6 Acute anemia D64.9 GI bleed K92.2 Elevated lactic acid level R79.89 Urinary tract infection N39.0
--- NOTE | 2023-10-15 14:35 | PC.HD ---
Clotting of HD circuit x2 due to heparin-free treatment. Per parish nurse, ok to terminate treatment earlier if re-clotting appeared imminent, to minimize additional blood loss. Terminated treatment approximately 30 minutes early; able to return patient's blood. UF goal was 2000 mL; 1500 net fluid removal realized.
[2023-10-15 17:06] LABS: Glucose Point of Care 139 mg/dL (70-110)
[2023-10-15] MEDS: insulin glargine 100 units/1 mL 15 UNIT SUBCUT (17:09)
--- NOTE | 2023-10-15 17:09 | P.PN_ITS ---
Subjective 2 Subjective: Patient seen and examined. Pain controlled Vitals/I&O/Wt Last Vital Signs Temp 98.1 F 10/15/23 14:34 Pulse 75 10/15/23 16:00 Resp 20 H 10/15/23 16:00 BP 116/43 10/15/23 16:00 Pulse Ox 90 10/15/23 16:00 O2 Del Method Nasal Cannula 10/15/23 08:10 O2 Flow Rate 7 10/15/23 08:10 FiO2 30 10/15/23 03:59 10/15/23 10/15/23 10/15/23 06:59 14:59 22:59 Intake Total 479.25 / 785.50 1000 / 1000 Output Total 150 / 150 3100 / 3100 Balance 329.25 / 635.50 -2100 / -2100 Weight last 48 hrs Weight 247 lb 5.738 oz Weight 252 lb 6.4 oz Weight 251 lb 4.8 oz Weight 247 lb 9.266 oz Physical Exam 2 Narrative: General: No acute distress, awake alert and oriented x 3 Skin: Bandages taken down. Bilateral lower extremity wounds without erythema or exudate Urinary Catheter Management: Fuentes: Cath Placed During This Visit: yes Reason for Continuing Indwelling Catheter: Accurate Measurement of Urinary Output in Critically Ill Patients Urinary Catheter Date of Insertion: 10/08/23 Urinary Catheter Time of Insertion: 20:53 Data 10/15/23 04:29 10/15/23 04:29 Micro: Microbiology 10/14/23 18:20 Gram Stain - Final Foot - #1 A&P Assessment and plan (1) Stage III pressure ulcer: Plan Postoperative day #1 status post sharp excisional debridement of stage III ulceration right heel and stage II ulcerations of left leg Wet-to-dry dressing changes to right heel twice daily and dry dressing changes to the left leg daily Medical management per hospitalist General surgery will sign off. Please reconsult if the need arises Attestations 2 Medical Necessity Statement*: Per primary Coding Level of Care Code 19497 Diagnoses Stage III pressure ulcer L89.93
[2023-10-15] MEDS: norepinephrine 4 MG/250 ML BAG 2 MG IV (17:39)
[2023-10-15] MEDS: atorvastatin 40 mg Tablet PO (20:24)
[2023-10-15] MEDS: vancomycin 1,000 MG in sodium chloride 0.9% 250 ML 250 MG IV (20:38)
[2023-10-15] MEDS: fluconazole premix 100 MG in empty flexible container 1 EACH 50 MG IV (22:08)
[2023-10-15 22:50] LABS: Glucose Point of Care 141 mg/dL (70-110)
[2023-10-16] VITALS (26 sets, daily range): BP systolic 85–125; BP diastolic 40–64; PULSE 65–109; RESP 12–22; TEMP 36.7–37.2; O2SAT 89–100; BMI 33.6
[2023-10-16] MEDS: amiodarone 200 mg Tablet PO (05:20)
--- NOTE | 2023-10-16 06:02 | PM.PN ---
Subjective Subjective: alert, reports pain in legs better Vitals/I&O/Wt Last Vital Signs Temp 99.0 F 10/16/23 04:00 Pulse 67 10/16/23 05:37 Resp 17 10/16/23 04:00 BP 112/40 10/16/23 04:00 Pulse Ox 97 10/16/23 04:00 O2 Del Method High Flow Nasal Cannula 10/16/23 01:00 O2 Flow Rate 6 10/16/23 01:00 FiO2 30 10/15/23 23:54 10/15/23 10/15/23 10/16/23 14:59 22:59 06:59 Intake Total 1050 / 1050 521.75 / 1571.75 370.625 / 1942.375 Output Total 3100 / 3100 100 / 3200 Balance -2050 / -2050 521.75 / -1528.25 270.625 / -1257.625 Weight last 48 hrs Weight 112.491 kg Weight 112.2 kg Weight 114.487 kg Physical Exam Urinary Catheter Management: Fuentes: Cath Placed During This Visit: yes Reason for Continuing Indwelling Catheter: Accurate Measurement of Urinary Output in Critically Ill Patients Urinary Catheter Date of Insertion: 10/08/23 Urinary Catheter Time of Insertion: 20:53 Data 10/15/23 04:29 10/15/23 04:29 Micro: Microbiology 10/14/23 18:20 Gram Stain - Final Foot - #1 Tissue Culture - Preliminary Other data: seen via telemedicine with assistance of RN at bedside A&P Assessment and plan (1) End stage kidney disease: (2) ESRD (end stage renal disease) on dialysis: 1. End-stage renal disease: On [facility] schedule for dialysis. 2. peripheral artery disease s/p debridement leg wounds 3. Acute on chronic respiratory failure, now on [place] O2 4. Anemia,recent GI bleed , CHUCK with hD. received transfusion pRBC during HD Friday. 5. Recent infective endocarditis, completed IV abx Next HD Friday10/17/23. 4h, 2L UF, 3K bath as BP tolerates. Will use heparin Plan Attestations Medical Necessity Statement*: see above Time Spent in Patient Care: less than 15 minutes Coding Level of Care Code Acute Code for Chg Fwd Diagnoses End stage kidney disease N18.6 ESRD (end stage renal disease) on dialysis N18.6; Z99.2
[2023-10-16 07:41] LABS: Glucose Point of Care 103 mg/dL (70-110)
[2023-10-16] MEDS: sevelamer 800 mg Tablet PO ×3 (07:44→20:37)
[2023-10-16] MEDS: midodrine 5 mg TABLET 10 MG PO ×3 (07:45→20:37)
[2023-10-16] MEDS: gabapentin 100 mg Capsule PO ×3 (07:45→20:37)
[2023-10-16] MEDS: clopidogrel 75 mg Tablet PO (07:45)
[2023-10-16] MEDS: metoprolol tartrate 25 mg Tablet PO ×2 (07:45→20:40)
[2023-10-16] MEDS: vancomycin 125 mg Capsule PO ×3 (07:45→20:39)
[2023-10-16] MEDS: meropenem 1,000 MG in sodium chloride 0.9% (plus) 50 ML 100 MG IV ×2 (10:39→22:55)
[2023-10-16] MEDS: pantoprazole 40 mg SDV IVP ×2 (10:42→22:55)
[2023-10-16 11:14] LABS: Glucose Point of Care 87 mg/dL (70-110)
[2023-10-16] MEDS: HYDROcodone-acetaminophen 5-325 mg Tablet 1 TAB PO ×2 (15:26→21:15)
--- NOTE | 2023-10-16 15:46 | P.PN_ITS ---
Subjective 2 Subjective: Reports having some increased leg pain. Afebrile. Blood pressure stable. Currently off pressors Vitals/I&O/Wt Last Vital Signs Temp 99.0 F 10/16/23 04:00 Pulse 104 H 10/16/23 12:00 Resp 17 10/16/23 12:00 BP 122/51 10/16/23 14:00 Pulse Ox 98 10/16/23 14:00 O2 Del Method Nasal Cannula 10/16/23 08:26 O2 Flow Rate 4 10/16/23 08:26 FiO2 30 10/15/23 23:54 10/16/23 10/16/23 10/16/23 06:59 14:59 22:59 Intake Total 370.625 / 1942.375 120 / 120 Output Total 100 / 3200 Balance 270.625 / -1257.625 120 / 120 Weight last 48 hrs Weight 248 lb Weight 247 lb 5.738 oz Weight 252 lb 6.4 oz Physical Exam 2 Const: COMMON NORMALS: no acute distress and patient oriented x3 HENMT: COMMON NORMALS: normocephalic HEAD & SCALP: normocephalic Eye: COMMON NORMALS: Equal, round and reactive pupils present PUPIL: Yes Equal, round and reactive pupils present Neck/C-Spine: COMMON NORMALS: no JVD Chest: OTHER: Dialysis catheter in place Resp: COMMON NORMALS: normal respiratory effort, No retractions, No use of accessory muscles and clear to auscultation bilaterally AUSCULTATION: clear to auscultation bilaterally Cardio: COMMON NORMALS: no JVD, regular rate, regular rhythm, S1 normal heart sound present and S2 normal heart sound present RATE: regular rate RHYTHM: regular rhythm HEART SOUNDS: S1 normal heart sound present and S2 normal heart sound present GI: COMMON NORMALS: Normal to inspection, nondistended, normoactive bowel sounds present, Soft to palpation and non-tender PALPATION: Yes Soft to palpation Extremity: NARRATIVE EXTREMITY EXAM: Edema, swelling, redness multiple wounds seen Neuro: COMMON NORMALS: patient oriented x3 Psych: COMMON NORMALS: mental status grossly normal Urinary Catheter Management: Fuentes: Cath Placed During This Visit: yes Reason for Continuing Indwelling Catheter: Accurate Measurement of Urinary Output in Critically Ill Patients Urinary Catheter Date of Insertion: 10/08/23 Urinary Catheter Time of Insertion: 20:53 Data 10/15/23 04:29 10/15/23 04:29 Micro: Microbiology 10/14/23 18:20 Gram Stain - Final Foot - #1 Tissue Culture - Preliminary Gram Negative Rods Gram Negative Rods#2 Strep species, gamma-hemolytic A&P Assessment and plan (1) Acute lower limb ischemia: (2) Arterial occlusion: (3) Congestive heart failure: Qualifiers: Heart failure chronicity: acute on chronic Heart failure type: u nspecified Qualified Code(s): I50.9 - Heart failure, unspecified (4) Sepsis: Qualifiers: Sepsis acute organ dysfunction status: unspecified Sepsis type: sepsis due to unspecified organism Qualified Code(s): A41.9 - Sepsis, unspecified organism (5) Abscess or cellulitis of foot: (6) End stage kidney disease: (7) Acute anemia: (8) GI bleed: (9) Elevated lactic acid level: (10) Urinary tract infection: Plan Acute limb ischemia - RULED OUT Chronic PAD ? Left lower extremity, pale, pulselessness, cool, clammy, pulses not palpable ? Duplex arterial ultrasound shows left SFA occlusion ? Plan ? Concerns for acute embolization from atrial fibrillation resulting in left SFA occlusion? Other possibilities include septic emboli from his history of endocarditis although last echocardiogram shows healed vegetations Continue , statin, Plavix (will restart after surgery) currently off heparin drip, will start Eliquis 2.5mg po bid Acute on chronic anemia, concerns for GI bleed ? During his hospital hospitalization hemoglobin was low at 6.6, requiring 1 unit PRBC, his anticoagulant therapy had to be discontinued on discharge, he has a history of atrial fibrillation ? Hemoglobin checked, blood transfusion ordered previously will transfuse if hgb < 7 Hypotension - patient on midodrine. taper off Levophed History of bacterial endocarditis, history of multiple valvular vegetation including aortic, mitral ? Has completed antibiotic therapy ? Repeat cardiac echocardiogram Bilateral lower extremity diabetic ulcers, cellulitis ? On examination bilateral lower extremities have diabetic ulcers, with erythema, swelling concerning for cellulitis ? With elevated lactic acid concerning for cellulitis ? Continue vancomycin, meropenem Elevated lactic acid, ? Secondary to acute limb ischemia, slow GI bleed, cellulitis, - consult surgery , s/p debridement UTI ? With history of Radha Antonio GI, history of ESBL infection ? Switch Zosyn to meropenem ? Continue Diflucan Sepsis from diabetic ulcers, cellulitis, UTI Type 2 diabetes mellitus, low-dose sliding scale End-stage renal disease, on dialysis- MWF CHF, pulmonary edema seen on chest x-ray with elevated BNP over 34,000, currently on 3 L -Currently does not look like he is in respiratory distress ? Nephrology has been consulted plan on dialysis for fluid overload Atrial fibrillation, heart rates in the 112's, continue p.o. amiodarone will consider amiodarone drip --increase dose of midodrine, prn levophed Full code, confirmed with this patient multiple times ? ? Protonix for GI prophylaxis eliquis 2.5mg po bid Attestations 2 Medical Necessity Statement*: Geronimo Barahona requires ongoing inpatient care for abx, PT, pain medication , blood pressure monitoring Coding Level of Care Code 23974 Diagnoses Acute lower limb ischemia I99.8 Arterial occlusion I70.90 Congestive heart failure I50.9 Heart failure chronicity: acute on chronic Heart failure type: unspecified Sepsis A41.9 Sepsis acute organ dysfunction status: unspecified Sepsis type: sepsis due to unspecified organism Abscess or cellulitis of foot End stage kidney disease N18.6 Acute anemia D64.9 GI bleed K92.2 Elevated lactic acid level R79.89 Urinary tract infection N39.0
[2023-10-16 17:06] LABS: Glucose Point of Care 94 mg/dL (70-110)
[2023-10-16] MEDS: insulin glargine 100 units/1 mL 15 UNIT SUBCUT (18:14)
[2023-10-16] MEDS: atorvastatin 40 mg Tablet PO (20:37)
[2023-10-16] MEDS: acetaminophen 325 mg Tablet 650 MG PO (20:38)
[2023-10-16] MEDS: apixaban 5 mg Tablet 2.5 MG PO (20:42)
[2023-10-16 22:02] LABS: Glucose Point of Care 165 mg/dL (70-110)
[2023-10-16] MEDS: fluconazole premix 100 MG in empty flexible container 1 EACH 50 MG IV (23:03)
[2023-10-17] VITALS (20 sets, daily range): BP systolic 100–122; BP diastolic 55–69; PULSE 70–111; RESP 8–27; TEMP 36.3–36.4; O2SAT 82–95; BMI 33.6
[2023-10-17] MEDS: HYDROcodone-acetaminophen 5-325 mg Tablet 1 TAB PO ×2 (03:56→11:53)
[2023-10-17 05:15] LABS: Basophils # 0.1 10^3/uL (0.0-0.1); Basophils % 0.9 %; Eosinophils # 0.3 10^3/uL (0.0-0.8); Eosinophils % 3.8 %; Hematocrit 27.3 % (37-53); Lymphocytes # 0.8 10^3/uL (0.8-4.8); Lymphocytes % 12.5 %; Mean Corpuscular HGB Conc 28.9 g/dL (30-55); Mean Corpuscular Hemoglobin 29.4 pg (27-33); Mean Corpuscular Volume 101.5 fl (82-101); Mean Platelet Volume 10.3 fL (7.4-10.4); Monocytes # 0.7 10^3/uL (0.2-0.9); Monocytes % 10.2 %; Neutrophils # 4.78 10^3/uL (1.8-7.7); Neutrophils % 71.8 %; Nucleated Red Blood Cells % 0 %; Platelet Count 271 10^3/cmm (157-399); Red Blood Count 2.69 10^6/uL (3.85-5.65); White Blood Count 6.65 10^3/uL (3.29-11.43)
[2023-10-17 05:34] LABS: Alanine Aminotransferase < 5 U/L (0-41); Albumin Level 2.8 g/dL (3.5-5.2); Alkaline Phosphatase 171 U/L (40-130); Anion Gap 13.5 (5-19); Aspartate Amino Transferase 5 U/L (0-40); Blood Urea Nitrogen 32 mg/dL (8-23); Calcium 8.7 mg/dL (8.5-10.5); Carbon Dioxide 29 mmol/L (22-29); Chloride 98 mmol/L (98-107); Globulin 3.1 g/dL (1.3-4.6); Glomerular Filtration Rate 14.5 mL/min (90-130); Glucose 72 mg/dL (65-115); Osmolality Calculated 287 mOsm/kg (285-295); Potassium 4.5 mmol/L (3.5-5.1); Sodium 136 mmol/L (136-145); Total Bilirubin 0.4 mg/dL (0.15-1.2); Total Protein 5.9 g/dL (6.6-8.7)
[2023-10-17 05:40] LABS: Creatinine Clr Calc Pharmacy 24.2213
[2023-10-17] MEDS: amiodarone 200 mg Tablet PO (06:19)
[2023-10-17] MEDS: heparin, porcine 1,000 unit/mL INJ 10 mL 2000 UNIT IV (07:02)
[2023-10-17 07:27] LABS: Glucose Point of Care 90 mg/dL (70-110)
[2023-10-17] MEDS: midodrine 5 mg TABLET 10 MG PO (07:29)
[2023-10-17] MEDS: sevelamer 800 mg Tablet PO (07:31)
[2023-10-17] MEDS: metoprolol tartrate 25 mg Tablet PO (07:31)
[2023-10-17] MEDS: clopidogrel 75 mg Tablet PO (07:31)
[2023-10-17] MEDS: gabapentin 100 mg Capsule PO (07:32)
[2023-10-17] MEDS: vancomycin 125 mg Capsule PO (07:32)
[2023-10-17] MEDS: apixaban 5 mg Tablet 2.5 MG PO (07:33)
--- NOTE | 2023-10-17 09:24 | P.DS_ITS ---
Discharge Providers Date of Admission: 10/08/23 22:02 Date of Discharge: October 17, 2023 Attending Provider at Admission: Michael Estes MD Attending Provider at Discharge: Erick Rodriguez MD Primary Care Provider: Misty Ibrahim Diagnoses at Discharge Discharge Diagnosis (1) Acute lower limb ischemia: Status: Acute (2) Arterial occlusion: Status: Acute (3) Congestive heart failure: Status: Acute Qualifiers: Heart failure chronicity: acute on chronic Heart failure type: unspecified Qualified Code(s): I50.9 - Heart failure, unspecified (4) Sepsis: Status: Acute Qualifiers: Sepsis acute organ dysfunction status: unspecified Sepsis type: sepsis due to unspecified organism Qualified Code(s): A41.9 - Sepsis, unspecified organism (5) Abscess or cellulitis of foot: Status: Acute (6) End stage kidney disease: Status: Acute (7) Acute anemia: Status: Acute (8) GI bleed: Status: Acute (9) Elevated lactic acid level: Status: Acute (10) Urinary tract infection: Status: Acute Reason for Visit Reason for Visit: LLE poor perfusion Hospital Course Hospital Course 63 male who was admitted to the hospital for left SFA occlusion, cardiology was consulted from the ER for acute limb ischemia, patient has history of chronic peripheral arterial disease, angiogram showed calcified pseudo stenosis of left SFA with collaterals with single vessel runoff to the foot through posterior tibial artery, no intervention was done Dr. 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 Baxter was consulted he did the debridement, patient was treated with Diflucan and meropenem for abnormal UA with history of ESBL, patient is a end-stage renal disease patient get dialysis Friday please note his blood pressure drops every time he gets dialysis, he has been put on midodrine which is kind of risky at this point because he carries history of fluid overload congestive heart failure along A-fib. For A-fib he gets amiodarone. Patient is full code. Has had multiple admissions in the past. We will continue statins, Plavix and discontinue Eliquis because patient has been requiring blood transfusions quite frequently Add midodrine 10 mg 3 times a day. Patient is tolerating dialysis on day of discharge, blood pressure is stable [facility] be [facility] He will be considered high risk for readmission secondary to multiple comorbid conditions. Please note during this admission patient was refusing to get admitted however after multiple discussion he decided to stay, at baseline uses 4 to 5 L of oxygen and we have recommended BiPAP at nighttime Physical Exam Narrative: Awake and alert Signs of fluid overload improving Lymphedema venous stasis dermatitis Bilateral feet diabetic ulcer covered with dressing Hemodynamically stable Nonfocal neuroexam Pleasant and cooperative Urinary Catheter Management: Fuentes: Cath Placed During This Visit: yes Reason for Continuing Indwelling Catheter: Accurate Measurement of Urinary Output in Critically Ill Patients Urinary Catheter Date of Insertion: 10/08/23 Urinary Catheter Time of Insertion: 20:53 Discharge Data Studies Completed and Pending Completed Studies During Hospitalization Category Date Time Status CTA abdominal aorta [CT angio abd aorta runof 92114] Cat Scan 10/08/23 19:21 Completed Stat CXRP [XR chest 1V portable [id number]] Routine Exams 10/15/23 09:48 Completed XR chest 1V portable [id number] Stat Exams 10/08/23 14:02 [place] [id number] Stat Ultrasound 10/08/23 15:46 [place] [id number] Urgent Ultrasound 10/08/23 13:51 Completed CV. echo complete* [id number] Stat Ultrasound 10/08/23 19:21 Completed Pending at discharge Category Date Time Status CLERICAL GRADER request for service Routine Exams 10/10/23 05:17 Taken Tissue Culture and Gram Stain Routine Lab 10/14/23 18:20 Results Radiology Impressions Duplex Scan Lower Extremity Artery 10/08/23 15:46 IMPRESSION: Left SFA occlusion Aorta w/Runoff CTA 10/08/23 19:21 IMPRESSION: 1. Moderate to severe stenoses of the right SFA and popliteal artery. The right tibioperoneal trunk is occluded with occlusion of the right posterior tibial and peroneal arteries. The right anterior tibial artery appears to be patent to the foot. 2. Occlusion of the distal left SFA. At least moderate stenosis of the left popliteal artery. The left anterior tibial artery appears to be occluded. The left posterior tibial and peroneal arteries appear to be patent, though dense calcification limits evaluation. 3. Cholelithiasis with possible edema about the gallbladder. Consider right upper quadrant ultrasound if there are symptoms related to gallbladder pathology. 4. Small bilateral pleural effusions with bibasilar atelectasis. Chest X-Ray 10/15/23 09:48 IMPRESSION: Volume overload, evidenced by small to moderately sized bilateral pleural effusions and [id number] basal pulmonary edema. Superimposed infectious pneumonic process should be entertained in the appropriate clinical setting. Laboratory Results WBC 6.65 10^3/uL (3.29-11.43) 10/17/23 04:38 RBC 2.69 10^6/uL (3.85-5.65) L 10/17/23 04:38 Hgb 7.90 g/dL (11.27-16.99) L 10/17/23 04:38 Hct 27.3 % (37-53) L 10/17/23 04:38 MCV 101.5 fl (82-101) H 10/17/23 04:38 MCH 29.4 pg (27-33) 10/17/23 04:38 MCHC 28.9 g/dL (30-55) L 10/17/23 04:38 RDW 16.0 % (12.1-15.1) H 10/17/23 04:38 Plt Count 271 10^3/cmm (157-399) 10/17/23 04:38 MPV 10.3 fL (7.4-10.4) 10/17/23 04:38 Neut % (Auto) 71.8 % 10/17/23 04:38 Lymph % (Auto) 12.5 % 10/17/23 04:38 [place]row % (Auto) 10.2 % 10/17/23 04:38 Eos % (Auto) 3.8 % 10/17/23 04:38 Baso % (Auto) 0.9 % 10/17/23 04:38 Neut # (Auto) 4.78 10^3/uL (1.8-7.7) 10/17/23 04:38 Lymph # (Auto) 0.8 10^3/uL (0.8-4.8) 10/17/23 04:38 [place] # (Auto) 0.7 10^3/uL (0.2-0.9) 10/17/23 04:38 Eos # (Auto) 0.3 10^3/uL (0.0-0.8) 10/17/23 04:38 Baso # (Auto) 0.1 10^3/uL (0.0-0.1) 10/17/23 04:38 Nucleated RBC % (auto) 0 % 10/17/23 04:38 Nucleated RBCs # 0.0 /100WBC 10/17/23 04:38 ESR 25 mm/hr (0-10) H 10/08/23 13:59 APTT 61.8 SECONDS (23.9-36.7) H 10/14/23 04:32 Sodium 136 mmol/L (136-145) 10/17/23 04:38 Potassium 4.5 mmol/L (3.5-5.1) 10/17/23 04:38 Chloride 98 mmol/L (98-107) 10/17/23 04:38 Carbon Dioxide 29 mmol/L (22-29) 10/17/23 04:38 Anion Gap 13.5 (5-19) 10/17/23 04:38 BUN 32 mg/dL (8-23) H 10/17/23 04:38 Creatinine 4.2 mg/dL (0.7-1.2) H 10/17/23 04:38 GFR Calculation 14.5 mL/min (90-130) L 10/17/23 04:38 Glucose 72 mg/dL (65-115) 10/17/23 04:38 POC Glucose 90 mg/dL (70-110) 10/17/23 07:22 Estimat Average Glucose 114 10/08/23 13:59 Hemoglobin A1c 5.6 % (4.0-6.0) 10/08/23 13:59 Calculated Osmolality 287 mOsm/kg (285-295) 10/17/23 04:38 Lactic Acid 3.5 mmol/L (0.5-2.2) H 10/08/23 13:59 Lactic Acid (Sepsis) 2.4 mmol/L (0.5-2.2) H 10/08/23 17:08 Calcium 8.7 mg/dL (8.5-10.5) 10/17/23 04:38 Magnesium 1.8 mg/dL (1.7-2.3) 10/10/23 04:33 Total Bilirubin 0.4 mg/dL (0.15-1.2) 10/17/23 04:38 AST 5 U/L (0-40) 10/17/23 04:38 ALT < 5 U/L (0-41) 10/17/23 04:38 Alkaline Phosphatase 171 U/L (40-130) H 10/17/23 04:38 Creatine Kinase 196 U/L (39-308) 10/08/23 13:59 Troponin T Baseline 211 ng/L (0-15) H* 10/08/23 23:36 Troponin T 120 Minute 219.6 ng/L (0-15) H 10/09/23 01:15 Delta Troponin T 8.6 ABS# (0-10) 10/09/23 01:15 Troponin T Hi Sens 6Hr 211.1 ng/L (0-15) H 10/09/23 05:54 Troponin T Hi Sens 6Hr Delta 0.1 ng/L (0-12) 10/09/23 05:54 C-Reactive Protein 272.1 mg/L (0.0-4.9) H 10/12/23 09:45 NT-Pro-B Natriuret Pep 11069 pg/mL (0-125) H 10/08/23 13:59 NT-Pro-B Natriuret Pep Cancelled 10/08/23 13:59 Total Protein 5.9 g/dL (6.6-8.7) L 10/17/23 04:38 Albumin 2.8 g/dL (3.5-5.2) L 10/17/23 04:38 Globulin 3.1 g/dL (1.3-4.6) 10/17/23 04:38 Procalcitonin 0.78 ng/mL (0-0.5) H 10/08/23 13:59 TSH 1.39 uIU/mL (0.27-4.20) 10/08/23 13:59 Urine Color Brown (Yellow) A 10/08/23 21:10 Urine Appearance Cloudy (CLEAR) A 10/08/23 21:10 Urine pH 5 (5-7) 10/08/23 21:10 Ur Specific [place] 1.020 (1.005-1.030) 10/08/23 21:10 Urine Protein 3+ (Negative) H 10/08/23 21:10 Urine Glucose (UA) Norm (Normal) 10/08/23 21:10 Urine Ketones 1+ (Negative) H 10/08/23 21:10 Urine Blood 3+ (Negative) H 10/08/23 21:10 Urine Nitrate Negative (Negative) 10/08/23 21:10 Urine Bilirubin 1+ (Negative) H 10/08/23 21:10 Urine Urobilinogen 1 mg/dL (Negative) H 10/08/23 21:10 Ur Leukocyte Esterase 2+ (Negative) H 10/08/23 21:10 Urine RBC 15-25 /hpf (0-2) H 10/08/23 21:10 Urine WBC Too numerous to cnt /hpf (0-5) H 10/08/23 21:10 Ur Squamous Epith Cells None /hpf (0-5) 10/08/23 21:10 Amorphous Sediment Not Reportable 10/08/23 21:10 Urine Bacteria 3+ /hpf (NONE) H 10/08/23 21:10 Urine Mucus 3+ /hpf 10/08/23 21:10 Vancomycin Trough 18.0 ug/mL (10-15) H 10/15/23 20:03 Blood Type A Positive 10/13/23 11:18 Rho(D) Type Rh positive 10/13/23 11:18 Antibody Screen Negative 10/13/23 11:18 Crossmatch See Detail 10/13/23 11:18 Vitals Last Vital Signs Temp 97.3 F L 10/17/23 07:24 Pulse 106 H 10/17/23 08:00 Resp 16 10/17/23 08:00 BP 114/60 10/17/23 08:00 Pulse Ox 94 10/17/23 08:00 O2 Del Method High Flow Nasal Cannula 10/17/23 07:38 O2 Flow Rate 4 10/17/23 07:38 FiO2 90 10/16/23 21:46 Discharge Plan Discharge Patient Disposition: Xfer SNF Condition: Stable Prescriptions: Continued clopidogrel 75 mg Tablet 75 mg PO DAILY bumetanide 1 mg tablet See Rx Instructions .ROUTE .COMPLEX Rx Instructions: TAKE 1 TABLET BY MOUTH ONCE DAILY NEEDED FOR SWELLING AND LY WEIGHT INCREASE. calcium acetate 667 mg tablet 667 mg PO TID albuterol sulfate [Ventolin HFA] 90 mcg/actuation Hfa Aerosol Inhaler 2 puff INHALATION Q6H PRN (Reason: Shortness Of Breath) Saccharomyces jamieulardii 250 mg Capsule 250 mg PO BID gabapentin 100 mg capsule 100 mg PO TID vancomycin 125 mg Capsule 125 mg PO TID Qty: 60 0RF metoprolol tartrate 50 mg tablet See Rx Instructions .ROUTE .COMPLEX Rx Instructions: TAKE 1 TABLET BY MOUTH DAILY FOR HNT. HOLD FOR SYSTOLIC BELOW 100, DIASTOLIC BELOW 60. Lantus Solostar U-100 Insulin 100 unit/mL (3 mL) Insulin Pen 15 unit SUBCUT QPM Renvela 800 mg Tablet 800 mg PO TID Rx Instructions: must administer with a meal/food albuterol sulfate 2.5 mg /3 mL (0.083 %) solution for nebulization 2.5 mg inhalation Q4H PRN (Reason: Shortness Of Breath) amiodarone 200 mg tablet 200 mg PO QAM acetaminophen 325 mg Tablet 650 mg PO Q6H PRN (Reason: Pain) hydrocodone-acetaminophen 5-325 mg Tablet 1 tab PO Q6H PRN (Reason: Pain) bisacodyl 10 mg Suppository 10 mg WI DAILY PRN (Reason: Constipation) metoprolol tartrate 50 mg tablet See Rx Instructions .ROUTE .COMPLEX Rx Instructions: TAKE 1 TABLET BY MOUTH DAILY ON FRIDAY, FRIDAY, FRIDAY AND FRIDAY. nystatin 100,000 unit/gram Powder 1 applic TOPICAL DAILY insulin aspart U-100 [Novolog FlexPen U-100 Insulin] 100 unit/mL (3 mL) insuli n pen See Rx Instructions .ROUTE .COMPLEX Rx Instructions: INJECT PER SLIDING SCALE 3 TIMES DAILY: BS 100-119=2 UNITS, 120-160=4 UNITS, 161-200=6 UNITS, 201-240=8 UNITS, 241-280=11 UNITS, 281-320=15 UNIT. Discharge Orders: Discharge Order (Routine); Ordered 10/17/23 Ordered By: Erick Rodriguez Referrals: [facility] [Outside] Misty Ibrahim [Primary Care Provider] - Discharge Diet: Diabetic Patient Instructions: Dialysis Diet (DC), Hemodialysis (DC), Opioid Safety Activity Restrictions/Additional Instructions: Video call with Misty Ibrahim as planned to discuss expectations of further management and care. Take medications as prescribed. If you have any new or concerning symptoms, return for reevaluation. Discharge Attestations Time Spent in Discharge Care*: greater than 30 min Quality Metrics Clinical Quality Measures [ No reported AMI, CVA or VTE this stay] Coding Level of Care Code Acute Code for Chg Fwd Diagnoses Acute lower limb ischemia I99.8 Arterial occlusion I70.90 Congestive heart failure I50.9 Heart failure chronicity: acute on chronic Heart failure type: unspecified Sepsis A41.9 Sepsis acute organ dysfunction status: unspecified Sepsis type: sepsis due to unspecified organism Abscess or cellulitis of foot End stage kidney disease N18.6 Acute anemia D64.9 GI bleed K92.2 Elevated lactic acid level R79.89 Urinary tract infection N39.0
--- NOTE | 2023-10-17 10:09 | P.PN_ITS ---
Subjective 2 Subjective: getting hD ON 6L o2 Medications: Reviewed: Yes Vitals/I&O/Wt Last Vital Signs Temp 97.3 F L 10/17/23 07:24 Pulse 106 H 10/17/23 09:56 Resp 16 10/17/23 09:56 BP 114/60 10/17/23 09:56 Pulse Ox 94 10/17/23 09:56 O2 Del Method High Flow Nasal Cannula 10/17/23 07:38 O2 Flow Rate 4 10/17/23 07:38 FiO2 90 10/16/23 21:46 10/16/23 10/17/23 10/17/23 22:59 06:59 14:59 Intake Total 290 / 410 100 / 510 180 / 180 Output Total 50 / 50 Balance 290 / 410 50 / 460 180 / 180 Weight last 48 hrs Weight 112.491 kg Weight 112.491 kg Weight 112.2 kg Physical Exam 2 Narrative: gettingn HD ON 6L O2 NC Urinary Catheter Management: Fuentes: Cath Placed During This Visit: yes Reason for Continuing Indwelling Catheter: Accurate Measurement of Urinary Output in Critically Ill Patients Urinary Catheter Date of Insertion: 10/08/23 Urinary Catheter Time of Insertion: 20:53 Data 10/17/23 04:38 10/17/23 04:38 Micro: Microbiology 10/14/23 18:20 Gram Stain - Final Foot - #1 Tissue Culture - Preliminary Gram Negative Rods Gram Negative Rods#2 Strep species, gamma-hemolytic A&P Assessment and plan (1) End stage kidney disease: (2) ESRD (end stage renal disease) on dialysis: 1. End-stage renal disease: On MWF schedule for dialysis. HD today 2. peripheral artery disease s/p debridement leg wounds 3. Acute on chronic respiratory failure, now on NC O2 4. Anemia,recent GI bleed , CHUCK with hD. received transfusion pRBC during HD Friday. 5. Recent infective endocarditis, completed IV abx pt evaluated by using audiovisual cart. Time spent 20 min Plan Attestations 2 Medical Necessity Statement*: per [facility] Coding Level of Care Code Acute Code for Chg Fwd Diagnoses End stage kidney disease N18.6 ESRD (end stage renal disease) on dialysis N18.6; Z99.2
--- NOTE | 2023-10-17 10:24 | PC.HD ---
During HD treatment, per phone call from Dr. Cohen, UF goal increased to 3L as tolerated.
[2023-10-17] MEDS: epoetin alfa (ESRD) 5,000 UNIT in SYRINGE 1 EACH 15 UNIT IVP (10:56)
[2023-10-17] MEDS: pantoprazole 40 mg SDV IVP (11:54)
--- NOTE | 2023-10-17 12:46 | PC.NURSE ---
Report called to [facility] and given to Marcell Magallanes LPN
--- NOTE | 2023-10-17 15:21 | PC.NURSE ---
Discharge Note Patient discharged to [[facility]] via [stretcher to ambulance] accompanied by [[facility] personnel]. Discharge instructions reviewed with snf CASTING MACHINE OPERATOR HELPER. No mobile pharmacy medications and/or prescriptions ordered. Belongings returned.
[2023-10-17 17:15] LABS: Glucose Point of Care 79 mg/dL (70-110)
== END 2023-10-17 15:15 | disposition skilled nursing facility (03) | DRG 853 ==
LOC: ER 19:14 → ICU 22:03
PROVIDERS: Hospitalist; Internal Medicine; Surgery; Admitting Provider Family Medicine; Emergency Provider Physician Assistant; PCP Registered Nurse; Visit Provider Internal Medicine
PROC: B41DYZZ Fluoroscopy of Aorta and Bilateral Lower Extremity Arteries using Other Contrast (ICD-10-PCS; principal; 2023-10-10 06:00)
PROC: 0JBQ0ZZ Excision of Right Foot Subcutaneous Tissue and Fascia, Open Approach (ICD-10-PCS; principal; 2023-10-14 16:20)
DX: A41.9 Sepsis, unspecified organism (principal); I21.4 Non-ST elevation (NSTEMI) myocardial infarction; L89.613 Pressure ulcer of right heel, stage 3; R65.21 Severe sepsis with septic shock; N18.6 End stage renal disease; N39.0 Urinary tract infection, site not specified; L03.116 Cellulitis of left lower limb; L03.115 Cellulitis of right lower limb; L97.929 Non-pressure chronic ulcer of unspecified part of left lower leg with unspecified severity; D63.1 Anemia in chronic kidney disease; I50.9 Heart failure, unspecified; E11.22 Type 2 diabetes mellitus with diabetic chronic kidney disease; Z99.2 Dependence on renal dialysis; Z79.02 Long term (current) use of antithrombotics/antiplatelets; Z79.4 Long term (current) use of insulin; E11.51 Type 2 diabetes mellitus with diabetic peripheral angiopathy without gangrene; J44.9 Chronic obstructive pulmonary disease, unspecified; Z87.891 Personal history of nicotine dependence; I27.20 Pulmonary hypertension, unspecified; E11.622 Type 2 diabetes mellitus with other skin ulcer; I48.91 Unspecified atrial fibrillation
CPT/HCPCS: 36415; 36416; 36430; 51702; 71045; 75625; 75635; 75710; 80048; 80053; 80202; 81001; 82550; 82962; 83036; 83605; 83735; 83880; 84145; 84443; 84484; 85014; 85018; 85025; 85347; 85651; 85730; 86140; 86850; 86900; 86920; 87040; 87070; 87077; 87086; 87106; 87176; 87186; 87205; 90935; 93005; 93306; 93926; 93971; 94660; 94664; 96365; 96366; 96367; 96372; 96374; 96375; 96376; 97161; 99152; 99153; 99291; C1760; C1769; C1887; C1894; C9113; G0269; J0330; J0696; J1100; J1450; J1644; J1815; J2185; J2250; J2270; J2371; J2405; J2543; J2704; J3010; J3370; J7030; J7050; P9016; Q3014; Q4081; Q9967

== ENCOUNTER 2023-10-27 07:22 | Inpatient (IN) | payer MEDICAID, SELFPAY ==
[2023-10-27] VITALS (159 sets, daily range): BP systolic 43–163; BP diastolic 30–134; PULSE 82–198; RESP 8–48; TEMP 37.3–38.8; O2SAT 75–100; BMI 33.7
--- NOTE | 2023-10-27 07:53 | ECG_ITS ---
[facility] Test Date: 2023-10-27 Pat Name: Geronimo Barahona Department: Room: Gender: Male Cash Applications Coordinator: : 1960 Requested By: Dean Navarro Order Number: [id number] Lesly MD: Alvaro Cobos M.D. Measurements Intervals [place] Rate: 110 P: 178 ND: 176 QRS: 142 QRSD: 150 T: 42 QT: 306 QTc: 414 Interpretive Statements SINUS TACHYCARDIA RIGHT AXIS DEVIATION [QRS AXIS > 100] RIGHT BUNDLE BRANCH BLOCK [120+ ms QRS DURATION, UPRIGHT V1, 40+ ms S IN I/aVL/V4/V5/V6] Compared to ECG 10/09/2023 04:42:22 Right-axis deviation now present Right bundle-branch block now present Electronically Signed On 10-27-2023 14:30:33 CDT by Alvaro Cobos M.D. [id number]
--- NOTE | 2023-10-27 08:02 | PC.NURSE ---
DUE TO PATIENT TREMORS, UNABLE TO OBTAIN ACCURATE BLOOD PRESSURE READING AND PULSE OX READING.
--- NOTE | 2023-10-27 08:06 | W.ED.FEVER ---
HPI - Fever General: Chief Complaint: Fever Stated Complaint: fever Time Seen by Provider: 10/27/23 07:47 Source: patient Mode of arrival: ambulatory History of Present Illness: 62-year-old male presents to the emergency room from the group home with complaint of fever. Bilaterally his legs are wrapped. He recently was transferred for a bacterial endocarditis and was on antibiotics from late August to early September he was on vancomycin ampicillin and Rocephin. He is encephalopathic he is aware where he is at but he is not able to verbalize why he was brought here. Patient had recently been transferred for a vegetation on the valve to [place]. He has been on vancomycin, ampicillin, and Rocephin from 09/11/2023 through 09/29/2023. MD elicited complaint: fever, malaise and weakness Associated symptoms: Reports confusion and extremity pain; Deny abdominal pain, flank pain, chills, chest pain, cough, diarrhea, dysuria, headache(s), myalgias, nasal congestion, nausea, night sweats, rash, rhinorrhea, short of breath, sinus pain, stiffness, sore throat, vomiting or weight loss Review of Systems Const: Denies: chills or night sweats ENMT: Denies: nasal congestion or sinus pain Card: Denies: chest pain Resp: Denies: dyspnea GI: Denies: abdominal pain, nausea, vomiting or diarrhea : Denies: flank pain or dysuria Musc: Reports: extremity pain and extremity swelling Skin/Breast: Denies: rash Neuro: Reports: confusion; Denies: headache(s) [facility] PFSH: Medical History (Updated 10/27/23 @ 13:06 by Dean Shaw DO) Acute encephalopathy Anemia ESRD (end stage renal disease) on dialysis Cellulitis Afib Urinary tract infection Hyperkalemia DM2 (diabetes mellitus, type 2) COPD (chronic obstructive pulmonary disease) Stage III pressure ulcer Wound of lower extremity Critical limb ischemia of left lower extremity Elevated lactic acid level GI bleed Acute anemia Abscess or cellulitis of foot Acute lower limb ischemia Arterial occlusion Sepsis End stage kidney disease Congestive heart failure CHF exacerbation History of Clostridioides difficile colitis Bilateral pleural effusion Pulmonary arterial hypertension Acute respiratory distress syndrome Pressure ulcer of right heel, unstageable Shock Septic shock NSTEMI (non-ST elevated myocardial infarction) Aspiration pneumonia Pulmonary edema Acute hypoxic respiratory failure Hypoglycemia Altered mental status Edema Decubitus ulcer of heel, unstageable Enterococcus faecalis infection Endocarditis Hypotension Chronic anemia Sepsis Hyponatremia Pressure ulcer of left leg, stage 2 Pressure ulcer of right leg, stage 2 Wound of left foot Excoriation of groin Excoriation of abdomen Wound of left lower extremity Pressure ulcer of left buttock, stage 2 Pressure ulcer of right buttock, stage 2 Wound of right lower extremity Lymphedema Stasis dermatitis Pressure sore on buttocks Inability to perform activities of daily living Kidney dysfunction Fluid overload Hemodialysis status Temporary dialysis catheter placement Acute kidney failure Bradycardia Anasarca Bilateral lower leg cellulitis Metabolic acidosis DKA (diabetic ketoacidosis) Falls Generalized weakness FRANCISCO (acute kidney injury) CHF (congestive heart failure) Chronic respiratory failure with hypoxia Social History Smoking and tobacco/nicotine status: former use of tobacco/nicotine Physical Exam Const: GENERAL APPEARANCE: cooperative and comfortable ORIENTATION/CONSCIOUSNESS: Yes awake HENMT: COMMON NORMALS: normocephalic, atraumatic and hearing grossly normal bilaterally HEAD & SCALP: normocephalic and atraumatic Resp: COMMON NORMALS: normal respiratory effort, No retractions, No use of accessory muscles and clear to auscultation bilaterally AUSCULTATION: clear to auscultation bilaterally Cardio: COMMON NORMALS: regular rate, regular rhythm and No murmurs present (Cardio) RATE: regular rate RHYTHM: regular rhythm GI: COMMON NORMALS: Soft to palpation and No hepatosplenomegaly present AUSCULTATION: Yes normoactive bowel sounds PALPATION: Yes Soft to palpation, No Tenderness to palpation present (GI), No Guarding due to palpation present (GI) and Yes No hepatosplenomegaly present Skin: OTHER: Left lower extremity reddened mildly inflamed and swollen to the level of the knee. There is multiple ulcers with mucousy eschar on the foot and the heel. Course Vital Signs: Vital signs: Vital Signs Temperature 99.2 F 10/27/23 12:25 Pulse Rate 89 10/27/23 12:33 Respiratory Rate 17 10/27/23 12:30 Blood Pressure 116/60 10/27/23 12:30 Pulse Oximetry 96 10/27/23 12:30 Oxygen Delivery Me thod Nasal Cannula 10/27/23 12:30 Oxygen Flow Rate 4 10/27/23 12:30 MDM - Fever Medical Decision Making Patient is septic with worsening renal failure and anemia. As well as mild thrombocytopenia. Started on antibiotics. Reviewing the chart he recently had a biopsy done last week showing Klebsiella ESBL Enterococcus faecalis and Pseudomonas. We confirmed with the group home he is no longer on antibiotics he was previously on antibiotics but those ended on September 28. He may need dialysis today he is not scheduled until tomorrow he did receive dialysis on Friday according to the group home. Discussed Dr. Lundberg will admit. We have already started him on meropenem and vancomycin which based on the most recent tissue culture should cover what was grown from the tissue. Dr. Cortez has been consulted Medical Records I reviewed the patient's medical records. Lab Data I reviewed the patient's lab results. 10/27/23 08:17 10/27/23 08:[address] 10/27/23 10:28 IMPRESSION: 1. No acute intracranial hemorrhage or edema. 2. 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 Extensive small vessel ischemic disease in the RIGHT cerebellum greater than the LEFT. Stable since 08/12/2023. Laboratory Results WBC 6.03 10^3/uL (3.29-11.43) 10/27/23 08:17 RBC 2.39 10^6/uL (3.85-5.65) L 10/27/23 08:17 Hgb 6.90 g/dL (11.27-16.99) L 10/27/23 08:17 Hct 23.3 % (37-53) L 10/27/23 08:17 MCV 97.5 fl (82-101) 10/27/23 08:17 MCH 28.9 pg (27-33) 10/27/23 08:17 MCHC 29.6 g/dL (30-55) L 10/27/23 08:17 RDW 16.0 % (12.1-15.1) H 10/27/23 08:17 Plt Count 144 10^3/cmm (157-399) L 10/27/23 08:17 MPV 10.6 fL (7.4-10.4) H 10/27/23 08:17 Neut % (Auto) 84.2 % 10/27/23 08:17 Lymph % (Auto) 6.6 % 10/27/23 08:17 Crook % (Auto) 5.6 % 10/27/23 08:17 Eos % (Auto) 3.0 % 10/27/23 08:17 Baso % (Auto) 0.3 % 10/27/23 08:17 Neut # (Auto) 5.07 10^3/uL (1.8-7.7) 10/27/23 08:17 Lymph # (Auto) 0.4 10^3/uL (0.8-4.8) L 10/27/23 08:17 Crook # (Auto) 0.3 10^3/uL (0.2-0.9) 10/27/23 08:17 Eos # (Auto) 0.2 10^3/uL (0.0-0.8) 10/27/23 08:17 Baso # (Auto) 0.0 10^3/uL (0.0-0.1) 10/27/23 08:17 Nucleated RBC % (auto) 0 % 10/27/23 08:17 Nucleated RBCs # 0.0 /100WBC 10/27/23 08:17 Specimen Type Arterial 10/27/23 10:28 Sample Site Radial, right 10/27/23 10:28 ABG pH 7.39 (7.35-7.45) 10/27/23 10:28 ABG pCO2 51.3 mmHg (35-45) H 10/27/23 10:28 ABG pO2 61.8 mmHg (80.0-100.0) L 10/27/23 10:28 ABG HCO3 31.3 mmol/L (22-26) H 10/27/23 10:28 ABG Base Excess 5.8 mmol/L (-2.0-2.0) H 10/27/23 10:28 Van Test Pos 10/27/23 10:28 Hematocrit 20.6 % (42-52) L 10/27/23 10:28 O2 Delivery Device Nc 10/27/23 10:28 O2 Liters/Min 4.0 % 10/27/23 10:28 Behavior Interventionist ID [email or web address] 10/27/23 10:28 Sodium 134 mmol/L (136-145) L 10/27/23 08:17 Potassium 5.7 mmol/L (3.5-5.1) H 10/27/23 08:17 Chloride 93 mmol/L (98-107) L 10/27/23 08:17 Carbon Dioxide 28 mmol/L (22-29) 10/27/23 08:17 Anion Gap 18.7 (5-19) 10/27/23 08:17 BUN 26 mg/dL (8-23) H 10/27/23 08:17 Creatinine 4.0 mg/dL (0.7-1.2) H 10/27/23 08:17 GFR Calculation 15.4 mL/min (90-130) L 10/27/23 08:17 Glucose 107 mg/dL (65-115) 10/27/23 08:17 Calculated Osmolality 283 mOsm/kg (285-295) L 10/27/23 08:17 Lactic Acid 1.5 mmol/L (0.5-2.2) 10/27/23 08:17 Calcium 8.3 mg/dL (8.5-10.5) L 10/27/23 08:17 Total Bilirubin 0.7 mg/dL (0.15-1.2) 10/27/23 08:17 AST 18 U/L (0-40) 10/27/23 08:17 ALT < 5 U/L (0-41) 10/27/23 08:17 Alkaline Phosphatase 253 U/L (40-130) H 10/27/23 08:17 Creatine Kinase 450 U/L (39-308) H* 10/27/23 08:17 Total Protein 6.2 g/dL (6.6-8.7) L 10/27/23 08:17 Albumin 2.9 g/dL (3.5-5.2) L 10/27/23 08:17 Globulin 3.3 g/dL (1.3-4.6) 10/27/23 08:17 Blood Type A Positive 10/27/23 10:00 Rho(D) Type Rh positive 10/27/23 10:00 Antibody Screen Negative 10/27/23 10:00 Crossmatch See Detail 10/27/23 10:00 All radiology interpretation(s) finalized by discharge Discharge Plan Discharge Patient Disposition: Admitted As Inpatient Admit Provider: Lenny Montalvo Clinical Impression: Sepsis, Afib, DM2 (diabetes mellitus, type 2), Cellulitis, Anemia, Acute encephalopathy, Hyperkalemia, Thrombocytopenia Condition: Stable Coding Level of Care Code ED Telesales Advisor for Courtney Doran
--- NOTE | 2023-10-27 08:33 | PC.NURSE ---
ATTEMPTED TO REACH [facility] FOR MORE PATIENT INFORMATION BUT HAD NO ANSWER.
[2023-10-27 08:36] LABS: Basophils % 0.3 %; Eosinophils # 0.2 10^3/uL (0.0-0.8); Hematocrit 23.3 % (37-53); Lymphocytes # 0.4 10^3/uL (0.8-4.8); Lymphocytes % 6.6 %; Mean Corpuscular HGB Conc 29.6 g/dL (30-55); Mean Corpuscular Hemoglobin 28.9 pg (27-33); Mean Corpuscular Volume 97.5 fl (82-101); Mean Platelet Volume 10.6 fL (7.4-10.4); Monocytes # 0.3 10^3/uL (0.2-0.9); Monocytes % 5.6 %; Neutrophils # 5.07 10^3/uL (1.8-7.7); Neutrophils % 84.2 %; Nucleated Red Blood Cells % 0 %; Platelet Count 144 10^3/cmm (157-399); Red Blood Count 2.39 10^6/uL (3.85-5.65); White Blood Count 6.03 10^3/uL (3.29-11.43)
[2023-10-27] MEDS: meropenem 1,000 MG in sodium chloride 0.9% (plus) 50 ML 100 MG IV (08:38)
[2023-10-27 09:19] LABS: Alanine Aminotransferase < 5 U/L (0-41); Albumin Level 2.9 g/dL (3.5-5.2); Alkaline Phosphatase 253 U/L (40-130); Anion Gap 18.7 (5-19); Aspartate Amino Transferase 18 U/L (0-40); Blood Urea Nitrogen 26 mg/dL (8-23); Calcium 8.3 mg/dL (8.5-10.5); Carbon Dioxide 28 mmol/L (22-29); Chloride 93 mmol/L (98-107); Globulin 3.3 g/dL (1.3-4.6); Glomerular Filtration Rate 15.4 mL/min (90-130); Glucose 107 mg/dL (65-115); Osmolality Calculated 283 mOsm/kg (285-295); Potassium 5.7 mmol/L (3.5-5.1); Sodium 134 mmol/L (136-145); Total Bilirubin 0.7 mg/dL (0.15-1.2); Total Protein 6.2 g/dL (6.6-8.7)
[2023-10-27 09:20] LABS: Lactic Sepsis W/Reflex 1.5 mmol/L (0.5-2.2)
[2023-10-27] MEDS: vancomycin 1,000 MG in sodium chloride 0.9% 250 ML 250 MG IV (09:26)
[2023-10-27] MEDS: calcium chloride 10% Syr 10 mL 1 GM IVP (10:05)
[2023-10-27] MEDS: sodium bicarbonate 8.4% 1 mEq/mL 50mL Syr 50 MEQ IVP (10:05)
[2023-10-27] MEDS: albuterol 2.5 mg/3 mL Neb 10 MG INHALATION (10:10)
--- NOTE | 2023-10-27 10:11 | PC.PHAR ---
LEFT MESSAGE AT 10AM FOR NURSE TO CALL BACK AND LET US KNOW IF PT HAS BEEN GIVEN AM MEDS.
--- NOTE | 2023-10-27 10:15 | PC.PHAR ---
TYLENOL WAS ONLY MED GIVEN THIS MORNING. CRUSHED 2 TABLETS (650MG) AND ADDED TO PUDDING TO GIVE AT 7AM
--- NOTE | 2023-10-27 10:22 | PM.HP ---
Providers/Chief Complaint Admitting Physician: Lenny Montalvo MD Primary Care Provider: Misty Ibrahim Chief Complaint: fever History of Present Illness Geronimo Barahona is a 62 year old male presenting to the emergency department from [facility] for fever and jerking. He had recently been hospitalized here until October 16. During that hospital stay he had significant left lower extremity ischemia. Interventional cardiology recommended medical management after angiogram. He had recently received 6 weeks of IV antibiotics for endocarditis from [place], treatment received September 10 through September 28. I cannot get any other meaningful history from the patient. He can say a few responses but is not fully aware of where he is out. In the emergency department he received some albuterol, calcium, meropenem, vancomycin, and sodium bicarb. Review of Systems General: Reports: ROS unobtainable due to medical condition and ROS unobtainable due to mental status Medications/Allergies Home Medications Medication Instructions Recorded Confirmed Last Taken Type albuterol sulfate 2.5 mg/3 mL 2.5 mg inhalation Q4H PRN 10/03/22 10/27/23 Unknown History (0.083 %) solution for nebulization Shortness Of Breath amiodarone 200 mg tablet 200 mg PO QAM 10/03/22 10/27/23 10/08/23 History acetaminophen 325 mg tablet 650 mg PO Q6H PRN Pain 08/12/23 10/27/23 10/27/23 History bisacodyl 10 mg rectal suppository 10 mg TX DAILY PRN Constipation 08/12/23 10/27/23 Unknown History hydrocodone 5 mg-acetaminophen 325 1 tab PO Q6H PRN Pain 08/12/23 10/27/23 10/08/23 History mg tablet insulin aspart U-100 100 unit/mL See Rx Instructions .Route .COMPLEX 08/12/23 10/27/23 10/08/23 History (3 mL) subcutaneous pen (Novolog FlexPen U-100 Insulin aspart) metoprolol tartrate 50 mg tablet See Rx Instructions .Route .COMPLEX 08/12/23 10/27/23 10/08/23 History nystatin 100,000 unit/gram topical 1 applic topical DAILY 08/12/23 10/27/23 10/07/23 History powder Saccharomyces boulardii 250 mg 250 mg PO BID 09/14/23 10/27/23 10/08/23 History capsule albuterol sulfate 90 mcg/actuation 2 puff inhalation Q6H PRN 09/14/23 10/27/23 Unknown History aerosol inhaler (Ventolin HFA) Shortness Of Breath bumetanide 1 mg tablet See Rx Instructions .Route .COMPLEX 09/14/23 10/27/23 Unknown History calcium acetate 667 mg tablet 667 mg PO DAILY 09/14/23 10/27/23 10/08/23 History clopidogrel 75 mg tablet 75 mg PO DAILY 09/14/23 10/27/23 10/08/23 History gabapentin 100 mg capsule 100 mg PO TID 09/14/23 10/27/23 10/08/23 History vancomycin 125 mg capsule 125 mg PO TID #60 caps 09/25/23 10/27/23 10/08/23 Rx insulin glargine 100 unit/mL (3 12 unit SUBCUT QPM 10/08/23 10/27/23 10/07/23 History mL) subcutaneous pen (Lantus Solostar U-100 Insulin) metoprolol tartrate 50 mg tablet See Rx Instructions .Route .COMPLEX 10/08/23 10/27/23 10/07/23 History morphine 15 mg tablet,extended 15 mg PO Q12H 10/27/23 10/27/23 Unknown History release nicotine 21 mg/24 hr daily 1 patch transdermal DAILY 10/27/23 10/27/23 Unknown History transdermal patch silver sulfadiazine 1 % topical 1 applic topical DAILY 10/27/23 10/27/23 Unknown History cream (Silvadene) Allergies Allergy/AdvReac Type Severity Reaction Status Date / Time amoxicillin [From Augmentin] Allergy Mild rash Verified 09/12/23 09:18 clavulanic acid Allergy Mild rash Verified 09/12/23 09:18 [From Augmentin] levofloxacin Allergy Mild rash Verified 09/12/23 09:18 PFSH Acute PFSH: Medical History (Updated 10/27/23 @ 10:34 by Lenny Montalvo MD) Acute encephalopathy Anemia ESRD (end stage renal disease) on dialysis Cellulitis Afib Urinary tract infection Hyperkalemia DM2 (diabetes mellitus, type 2) COPD (chronic obstructive pulmonary disease) Stage III pressure ulcer Wound of lower extremity Critical limb ischemia of left lower extremity Elevated lactic acid level GI bleed Acute anemia Abscess or cellulitis of foot Acute lower limb ischemia Arterial occlusion Sepsis End stage kidney disease Congestive heart failure CHF exacerbation History of Clostridioides difficile colitis Bilateral pleural effusion Pulmonary arterial hypertension Acute respiratory distress syndrome Pressure ulcer of right heel, unstageable Shock Septic shock NSTEMI (non-ST elevated myocardial infarction) Aspiration pneumonia Pulmonary edema Acute hypoxic respiratory failure Hypoglycemia Altered mental status Edema Decubitus ulcer of heel, unstageable Enterococcus faecalis infection Endocarditis Hypotension Chronic anemia Sepsis Hyponatremia Pressure ulcer of left leg, stage 2 Pressure ulcer of right leg, stage 2 Wound of left foot Excoriation of groin Excoriation of abdomen Wound of left lower extremity Pressure ulcer of left buttock, stage 2 Pressure ulcer of right buttock, stage 2 Wound of right lower extremity Lymphedema Stasis dermatitis Pressure sore on buttocks Inability to perform activities of daily living Kidney dysfunction Fluid overload Hemodialysis status Temporary dialysis catheter placement Acute kidney failure Bradycardia Anasarca Bilateral lower leg cellulitis Metabolic acidosis DKA (diabetic ketoacidosis) Falls Generalized weakness FRANCISCO (acute kidney injury) CHF (congestive heart failure) Chronic respiratory failure with hypoxia Social History Smoking and tobacco/nicotine status: former use of tobacco/nicotine Vitals/I&O/Wt Last Vital Signs Temp 100.7 F H 10/27/23 07:46 Pulse 88 10/27/23 10:13 Resp 20 H 10/27/23 10:13 BP 93/76 10/27/23 09:30 Pulse Ox 94 10/27/23 10:13 O2 Del Method Nasal Cannula 10/27/23 10:13 O2 Flow Rate 4 10/27/23 10:13 10/26/23 10/27/23 10/27/23 22:59 06:59 14:59 Intake Total 50 / 50 Balance 50 / 50 Physical Exam Narrative: General exam is white male, confused, can answer a few responses and has some twitching. HEENT: Atraumatic and normocephalic. Pupils equally round. Oropharynx clear. Neck is supple no lymphadenopathy thyromegaly Cardiovascular regular rate and rhythm, no murmur Lungs clear Abdomen is soft demonstrates Fuentes with what appears to be pus in the catheter Extremities no cyanosis clubbing. Edema is present bilaterally. Left lower extremity demonstrates erythema, edema, significant skin breakdown Neuro: No focal deficits but confused Skin see findings above Sepsis: Is patient septic: Yes Focused sepsis exam performed: Yes Date exam was performed: 10/27/23 Time exam was performed: 10:30 Data 10/27/23 08:17 10/27/23 08:17 Other Labs: Calcium 8.3 LFTs normal with exception of alk phos of 253 CK ordered and pending Albumin 2.9 Urinalysis ordered and pending Blood cultures were obtained It appears recent wound culture demonstrated Klebsiella Pseudomonas enteric coccus Chest x-ray demonstrates bilateral pleural effusions, mild to moderate with cardiomegaly. Port is noted. Cannot rule out right-sided pneumonia. Lactic acid was not elevated EKG demonstrates sinus tachycardia, right axis deviation, right bundle branch block. Rate around 110. Micro: Microbiology 10/27/23 08:29 Blood Culture - Preliminary Blood SPECIMEN COLLECTED 10/27/23 08:17 Blood Culture - Preliminary Blood SPECIMEN COLLECTED A&P Assessment and plan (1) Sepsis: Patient presents with evidence of sepsis He is not a candidate for fluid bolus secondary to his end-stage renal disease on hemodialysis, no evidence of fluid overload on exam. His lactate is normal. He has evidence of sepsis with fever, tachypnea, encephalopathy with a source of his left lower extremity ulcer. There is also a concern of possible UTI and/or pneumonia. I do not think he has an atypical infection such as mycoplasma causing his current symptomatology. (2) Pneumonia: Check respiratory panel Sputum culture, blood culture Oxygen as needed (3) ESRD (end stage renal disease) on dialysis: He is on hemodialysis, with a schedule of Friday He is hyperkalemic, and evidence of fluid overload consistent with acute diastolic heart failure. Last echocardiogram in September demonstrated preserved EF, and echodensities were possibly a healed vegetation on his aortic valve. Nephrology consultation (4) Anemia: Patient with significant anemia Order for transfusion of 1 unit packed red blood cells by emergency department physician. I agree with this. Protonix for GI prophylaxis. (5) Hyperkalemia: Significantly hyperkalemic. Initiation of treatment given by the emergency department physician Nephrology consult. They will determine whether dialysis is needed (6) Cellulitis: Significant cellulitis left lower extremity with wound breakdown and previous culture showing multiple organisms Meropenem and vancomycin Await blood culture (7) Endocarditis: Past history of endocarditis Repeat thoracic echo Await blood cultures Qualifiers: Chronicity: unspecified Endocarditis type: infective Infective endocarditis organism: bacterial Qualified Code(s): I33.0 - Acute and subacute infective endocarditis (8) Acute encephalopathy: Check CT head Check ABG Continue to follow closely with neurochecks. Nursing facility relates that his mental status has waxed and waned there but been worse the last 2 days. (9) Urinary tract infection: Await urinalysis Change catheter (10) COPD (chronic obstructive pulmonary disease): DuoNeb every 6 hours Budesonide twice daily (11) DM2 (diabetes mellitus, type 2): Sliding scale insulin Consistent carb diet when diet initiated (12) Afib: Continue amiodarone Hold metoprolol until further evaluation of blood pressure Plan Multiple other medical problems as outlined in past medical history Attestations Medical Necessity Statement*: Will need greater than 2 midnight stay for evaluation and treatment of sepsis Critical Care Time: The high probability of a clinically significant, sudden or life threatening deterioration of the patient's [cardiac, renal, infectious disease, neurologic] system(s) required my full and direct attention, intervention and personal management. The critical care time is as shown. This time is in addition to time spent performing any reported procedures but includes the following: [x] Data and vital sign review and interpretation [x] Patient assessment, examination and intervention [x] Documentation [x] Medication orders and management Critical Care Time (min): 75 Coding Level of Care Code Critical Care >/= 30 minutes Critical care time (in minutes): 75 The high probability of a clinically significant, sudden or life threatening deterioration, as referenced in this documentation, required my full and direct attention, intervention and personal management. The critical care time shown is in addition to time spent performing any reported separately billable procedures and includes the following: [x] Data and vital sign review and interpretation [x] Patient assessment, examination and intervention [x] Medication orders and management [x] Patient/Family updates as able [x] Care Coordination and Documentation. Diagnoses Sepsis A41.9 Pneumonia J18.9 ESRD (end stage renal disease) on dialysis N18.6; Z99.2 Anemia D64.9 Hyperkalemia E87.5 Cellulitis L03.90 Endocarditis I33.0 Chronicity: unspecified Endocarditis type: infective Infective endocarditis organism: bacterial Acute encephalopathy G93.40 Urinary tract infection N39.0 COPD (chronic obstructive pulmonary disease) J44.9 DM2 (diabetes mellitus, type 2) E11.9 Afib I48.91
--- NOTE | 2023-10-27 10:28 | CT_ITS ---
WS: [id number] CT HEAD NONCONTRAST HISTORY: confusion TECHNIQUE: Contiguous axial imaging performed through the brain in 3.0 mm imaging. Bone and soft tiss ue windows. Sagittal and coronal reformats reviewed. All CT scans at [facility] use at least one of these dose optimization techniques: automated exposure control; mA and/or kV adjustment per pa tient size (includes targeted exams where dose is matched to clinical indication); or iterative recon struction. DLP: 1172.78 mGy.cm COMPARISON: 09/14/2023 No acute intracranial hemorrhage, midline shift or mass effect. Moderate atrophy and chronic small vessel ischemic changes. There is focal chronic encephalomalacia i nvolving the RIGHT frontoparietal white matter similar to the prior study. Remote RIGHT parietal occi pital lobe infarct. No progression since 09/14/2023. Ventricles: Normal size with no hydrocephalus. No inferior displacement of the cerebellar tonsils. Paranasal sinuses: Mild volume loss of the LEFT maxillary sinus with mucoperiosteal thickening which is chronic. Mastoid air cells: Well pneumatized. Calvarium and scalp: Skull is intact with no soft tissue edema or swelling. CT/CT head wo con* [id number] IMPRESSION: 1. No acute intracranial hemorrhage or edema. 2. Remote RIGHT frontal parietal and RIGHT parieto-occipital lobe infarcts wit h encephalomalacia. Extensive small vessel ischemic disease in the RIGHT cerebe llum greater than the LEFT. Stable since 08/12/2023.
[2023-10-27 10:39] LABS: ABG PCO2 51.3 mmHg (35-45); ABG PH Result 7.39 (7.35-7.45); Arterial Blood Gas Hematocrit 20.6 % (42-52); Base Excess ABG 5.8 mmol/L (-2.0-2.0); Blood Gas Allen Test Pos; Blood Gas Operator Identificat WALCI; Blood Gas Sample Site Radial, right; Blood Gas Sample Type Arterial; HCO3 ABG 31.3 mmol/L (22-26); Oxygen Device NC; PO2 ABG 61.8 mmHg (80.0-100.0)
[2023-10-27 10:44] LABS: Creatine Phosphokinase 450 U/L (39-308)
--- NOTE | 2023-10-27 11:13 | P.CONIM_ITS ---
Providers/Reason For Consult 2 Consulting Physician/Specialty*: una mayer md/ telenephrology Reason for Consult*: ESRD care Requesting Physician: Dr Montalvo Attending Physician: Lenny Montalvo MD Primary Care Provider: Misty Ibrahim History of Present Illness History of Present Illness Geronimo Barahona is a 62 year old male recent admission for left SFA occlusion and acute limb ischemia, patient has history of chronic peripheral arterial disease, angiogram showed calcified pseudo stenosis of left SFA with collaterals with single vessel runoff to the foot through posterior tibial artery, no intervention was done Dr. Hilton recommended medical management with continuation of antiplatelet agent if he is able to tolerate. He has h/o anemia, ESRD on HD MWF, anemia, he previously had slow GI bleed required blood transfusion, anticoagulating agent was discontinued, he recently finished 6 weeks of antibiotics for enterococcal bacterial endocarditis PICC line has been removed, patient has bilateral lower extremity diabetic foot ulcers for which Dr. Baxter was consulted he did the debridement, patient was treated with Diflucan and meropenem for abnormal UA with history of ESBL. The pt has issues of hypotension on dialysis and is treated w/ midodrine. He has h/o congestive heart failure ( HFpEF) and valvular heart disease along A- fib. He has required bipap in the past. He is here now w/ AMS and leg infection. Review of Systems 2 Narrative: confused. not able t give an appropriate hx. Medications/Allergies Home Medications Medication Instructions Recorded Confirmed Last Taken Type albuterol sulfate 2.5 mg/3 mL 2.5 mg inhalation Q4H PRN 10/03/22 10/27/23 Unknown History (0.083 %) solution for nebulization Shortness Of Breath amiodarone 200 mg tablet 200 mg PO QAM 10/03/22 10/27/23 10/08/23 History acetaminophen 325 mg tablet 650 mg PO Q6H PRN Pain 08/12/23 10/27/23 10/27/23 History bisacodyl 10 mg rectal suppository 10 mg IN DAILY PRN Constipation 08/12/23 10/27/23 Unknown History hydrocodone 5 mg-acetaminophen 325 1 tab PO Q6H PRN Pain 08/12/23 10/27/23 10/08/23 History mg tablet insulin aspart U-100 100 unit/mL See Rx Instructions .Route .COMPLEX 08/12/23 10/27/23 10/08/23 History (3 mL) subcutaneous pen (Novolog FlexPen U-100 Insulin aspart) metoprolol tartrate 50 mg tablet See Rx Instructions .Route .COMPLEX 08/12/23 10/27/23 10/08/23 History nystatin 100,000 unit/gram topical 1 applic topical DAILY 08/12/23 10/27/23 10/07/23 History powder Saccharomyces boulardii 250 mg 250 mg PO BID 09/14/23 10/27/23 10/08/23 History capsule albuterol sulfate 90 mcg/actuation 2 puff inhalation Q6H PRN 09/14/23 10/27/23 Unknown History aerosol inhaler (Ventolin HFA) Shortness Of Breath bumetanide 1 mg tablet See Rx Instructions .Route .COMPLEX 09/14/23 10/27/23 Unknown History calcium acetate 667 mg tablet 667 mg PO DAILY 09/14/23 10/27/23 10/08/23 History clopidogrel 75 mg tablet 75 mg PO DAILY 09/14/23 10/27/23 10/08/23 History gabapentin 100 mg capsule 100 mg PO TID 09/14/23 10/27/23 10/08/23 History vancomycin 125 mg capsule 125 mg PO TID #60 caps 09/25/23 10/27/23 10/08/23 Rx insulin glargine 100 unit/mL (3 12 unit SUBCUT QPM 10/08/23 10/27/23 10/07/23 History mL) subcutaneous pen (Lantus Solostar U-100 Insulin) metoprolol tartrate 50 mg tablet See Rx Instructions .Route .COMPLEX 10/08/23 10/27/23 10/07/23 History morphine 15 mg tablet,extended 15 mg PO Q12H 10/27/23 10/27/23 Unknown History release nicotine 21 mg/24 hr daily 1 patch transdermal DAILY 10/27/23 10/27/23 Unknown History transdermal patch silver sulfadiazine 1 % topical 1 applic topical DAILY 10/27/23 10/27/23 Unknown History cream (Silvadene) Allergies Allergy/AdvReac Type Severity Reaction Status Date / Time amoxicillin [From Augmentin] Allergy Mild rash Verified 09/12/23 09:18 clavulanic acid Allergy Mild rash Verified 09/12/23 09:18 [From Augmentin] levofloxacin Allergy Mild rash Verified 09/12/23 09:18 PFSH Acute 2 PFSH: Medical History (Updated 10/27/23 @ 10:34 by Lenny Montalvo MD) Acute encephalopathy Anemia ESRD (end stage renal disease) on dialysis Cellulitis Afib Urinary tract infection Hyperkalemia DM2 (diabetes mellitus, type 2) COPD (chronic obstructive pulmonary disease) Stage III pressure ulcer Wound of lower extremity Critical limb ischemia of left lower extremity Elevated lactic acid level GI bleed Acute anemia Abscess or cellulitis of foot Acute lower limb ischemia Arterial occlusion Sepsis End stage kidney disease Congestive heart failure CHF exacerbation History of Clostridioides difficile colitis Bilateral pleural effusion Pulmonary arterial hypertension Acute respiratory distress syndrome Pressure ulcer of right heel, unstageable Shock Septic shock NSTEMI (non-ST elevated myocardial infarction) Aspiration pneumonia Pulmonary edema Acute hypoxic respiratory failure Hypoglycemia Altered mental status Edema Decubitus ulcer of heel, unstageable Enterococcus faecalis infection Endocarditis Hypotension Chronic anemia Sepsis Hyponatremia Pressure ulcer of left leg, stage 2 Pressure ulcer of right leg, stage 2 Wound of left foot Excoriation of groin Excoriation of abdomen Wound of left lower extremity Pressure ulcer of left buttock, stage 2 Pressure ulcer of right buttock, stage 2 Wound of right lower extremity Lymphedema Stasis dermatitis Pressure sore on buttocks Inability to perform activities of daily living Kidney dysfunction Fluid overload Hemodialysis status Temporary dialysis catheter placement Acute kidney failure Bradycardia Anasarca Bilateral lower leg cellulitis Metabolic acidosis DKA (diabetic ketoacidosis) Falls Generalized weakness FRANCISCO (acute kidney injury) CHF (congestive heart failure) Chronic respiratory failure with hypoxia Social History Smoking and tobacco/nicotine status: former use of tobacco/nicotine Vitals/I&O/Wt Last Vital Signs Temp 100.7 F H 10/27/23 07:46 Pulse 87 10/27/23 10:30 Resp 13 10/27/23 10:30 BP 114/66 10/27/23 10:30 Pulse Ox 93 10/27/23 10:30 O2 Del Method Nasal Cannula 10/27/23 10:13 O2 Flow Rate 4 10/27/23 10:13 10/26/23 10/27/23 10/27/23 22:59 06:59 14:59 Intake Total 300 / 300 Balance 300 / 300 Physical Exam 2 Narrative: General exam - febrile, VS noted confused, swollen in bed, NARD. HEENT: Atraumatic and normocephalic. Neck is supple Right ACW permacath Heart- regular + s1, s2 Lungs clear Abdomen is soft demonstrates Fuentes Extremities no cyanosis clubbing. Edema is present bilaterally. Left lower extremity demonstrates erythema, edema, significant skin breakdown oschemic areas on toes Neuro: confused, awakens disoriented, weak poor pulses exam by RN- telehealth exam Data 10/27/23 08:17 10/27/23 08:17 Micro: Microbiology 10/27/23 08:29 Blood Culture - Preliminary Blood SPECIMEN COLLECTED 10/27/23 08:17 Blood Culture - Preliminary Blood SPECIMEN COLLECTED A&P Assessment and plan (1) ESRD (end stage renal disease) on dialysis: 62 yr old man 1. ESRD- HD today 3 hr, 2k, remove 1.5- 2l as tolerated 2. AMS and fevers- agree w/ sepsis evaluation. renal dose abx decrease meds that are sedative 3. DM control 4.PVD w/ occluded L SFA- per surgery and cardiology 5. anemia- agree w/ blood tx. will also give CHUCK 6. a fib controlled discussed w/ pt, RN, and Dr Montalvo pt consented to telehealth and hemodialysis. however, he is confused Plan see above Consult Attestations 2 Medical Necessity Statement: esrd, sepsis Time Spent in Patient Care: Greater than 35 minutes Coding Level of Care Code Acute Code for Chg Fwd Diagnoses ESRD (end stage renal disease) on dialysis N18.6; Z99.2
[2023-10-27 12:24] LABS: Glucose Urine UA Norm (Normal); Protein Urine 3+ (Negative); Urine Appearance Cloudy (CLEAR); Urine Color Yellow (Yellow); pH Urine 5 (5-7)
[2023-10-27 12:25] LABS: Add Urine Microscopic? YES; Bilirubin Urine 1+ (Negative); Blood Urine 3+ (Negative); Ketones Urine 1+ (Negative); Leukocyte Esterase Urine 2+ (Negative); Nitrate Urine Positive (Negative); Urobilinogen Urine 1 mg/dL (Negative)
[2023-10-27 12:29] LABS: RBC Urine 15-25 /hpf (0-2); WBC Urine TOO NUMEROUS TO CNT /hpf (0-5)
[2023-10-27 12:30] LABS: Add Urine Culture? Yes; Bacteria Urine 3+ /hpf; Squamous Epithelial Cell Urine 0-4 /hpf (0-5)
[2023-10-27 12:58] LABS: Hepatitis B Surface AB < 3.5 (11.5-1000); Hepatitis C Virus Antibody Non-Reactive (Nonreactive)
[2023-10-27 12:59] LABS: Hepatitis B Surface Antigen Non-Reactive (Nonreactive)
[2023-10-27 13:09] LABS: Uric Acid 4.9 mg/dL (3.4-7.0)
[2023-10-27] MEDS: heparin 5,000 unit/mL INJ 1 mL 5000 UNIT SUBCUT (13:16)
[2023-10-27] MEDS: insulin lispro 100 unit/1 mL SUBCUT (13:23)
[2023-10-27 13:55] LABS: Adenovirus Not Detected (NOT DETECT); Chlamydia Pneumoniae Not Detected (NOT DETECT); Coronavirus 229E,HKU1,NL63,OC4 Not Detected (NOT DETECT); Human Metapneumovirus Not Detected (NOT DETECT); Human Rhinovirus/Enterovirus Not Detected (NOT DETECT); Influenza A Not Detected (NOT DETECT); Influenza A H1 Not Detected (NOT DETECT); Influenza A H1-2009 Not Detected (NOT DETECT); Influenza A H3 Not Detected (NOT DETECT); Influenza B Not Detected (NOT DETECT); Mycoplasma Pneumoniae Not Detected (NOT DETECT); Parainfluenza Virus Type 1 Not Detected (NOT DETECT); Parainfluenza Virus Type 2 Not Detected (NOT DETECT); Parainfluenza Virus Type 3 Not Detected (NOT DETECT); Parainfluenza Virus Type 4 Not Detected (NOT DETECT); Respiratory Syncytial Virus A Not Detected (NOT DETECT); Respiratory Syncytial Virus B Not Detected (NOT DETECT); SARS-COV-2 Not Detected (NOT DETECT)
[2023-10-27] MEDS: ipratropium-albuterol 3 mL Neb INHALATION ×2 (14:50→19:46)
[2023-10-27] MEDS: meropenem 500 MG in sodium chloride 0.9% (plus) 50 ML 100 MG IV (15:34)
--- NOTE | 2023-10-27 16:03 | PC.NURSE ---
Wounds: Patient has multiple wounds bilateral legs and feet, Peeling skin, necrosis, weeping, tunneling, eschar, right great toe, and right second toe amputation. Medal buttock with multiple stage two pressure injuries, peeling skin. While assessing wounds and with turning schedule patient is verbally aggressive with staff due to pain. While at rest patient reports minimal pain. Temperature 100.4 on assessment of wounds with Dr. Baxter. Verbal order received at bedside for kurlex dressing to be applied to leg and foot wounds. See other documented vitals.
--- NOTE | 2023-10-27 16:28 | PM.CONSULT ---
Providers/Reason For Consult Consulting Physician/Specialty*: Dr. Alexander Baxter, DO/General surgery Reason for Consult*: Left lower extremity wounds Attending Physician: Lenny Montalvo MD Primary Care Provider: Misty Ibrahim History of Present Illness History of Present Illness Geronimo Barahona is a 62 year old male who is currently in the ICU with sepsis, UTI, pneumonia, history of endocarditis, and left lower extremity wounds secondary to ischemia. He was previously hospitalized 2 weeks ago and underwent debridement of ischemic ulcers of his right heel and left leg. Those are being treated with wound care since discharge. He presents from a shelter facility with rigors. He is unable to answer any questions at the moment, and HPI and review of systems are limited secondary to this. General surgery was consulted for the left lower extremity ischemic wounds. Review of Systems General: Reports: ROS unobtainable due to medical condition Medications/Allergies Home Medications Medication Instructions Recorded Confirmed Last Taken Type albuterol sulfate 2.5 mg/3 mL 2.5 mg inhalation Q4H PRN 10/03/22 10/27/23 Unknown History (0.083 %) solution for nebulization Shortness Of Breath amiodarone 200 mg tablet 200 mg PO QAM 10/03/22 10/27/23 10/08/23 History acetaminophen 325 mg tablet 650 mg PO Q6H PRN Pain 08/12/23 10/27/23 10/27/23 History bisacodyl 10 mg rectal suppository 10 mg VA DAILY PRN Constipation 08/12/23 10/27/23 Unknown History hydrocodone 5 mg-acetaminophen 325 1 tab PO Q6H PRN Pain 08/12/23 10/27/23 10/08/23 History mg tablet insulin aspart U-100 100 unit/mL See Rx Instructions .Route .COMPLEX 08/12/23 10/27/23 10/08/23 History (3 mL) subcutaneous pen (Novolog FlexPen U-100 Insulin aspart) metoprolol tartrate 50 mg tablet See Rx Instructions .Route .COMPLEX 08/12/23 10/27/23 10/08/23 History nystatin 100,000 unit/gram topical 1 applic topical DAILY 08/12/23 10/27/23 10/07/23 History powder Saccharomyces boulardii 250 mg 250 mg PO BID 09/14/23 10/27/23 10/08/23 History capsule albuterol sulfate 90 mcg/actuation 2 puff inhalation Q6H PRN 09/14/23 10/27/23 Unknown History aerosol inhaler (Ventolin HFA) Shortness Of Breath bumetanide 1 mg tablet See Rx Instructions .Route .COMPLEX 09/14/23 10/27/23 Unknown History calcium acetate 667 mg tablet 667 mg PO DAILY 09/14/23 10/27/23 10/08/23 History clopidogrel 75 mg tablet 75 mg PO DAILY 09/14/23 10/27/23 10/08/23 History gabapentin 100 mg capsule 100 mg PO TID 09/14/23 10/27/23 10/08/23 History vancomycin 125 mg capsule 125 mg PO TID #60 caps 09/25/23 10/27/23 10/08/23 Rx insulin glargine 100 unit/mL (3 12 unit SUBCUT QPM 10/08/23 10/27/23 10/07/23 History mL) subcutaneous pen (Lantus Solostar U-100 Insulin) metoprolol tartrate 50 mg tablet See Rx Instructions .Route .COMPLEX 10/08/23 10/27/23 10/07/23 History morphine 15 mg tablet,extended 15 mg PO Q12H 10/27/23 10/27/23 Unknown History release nicotine 21 mg/24 hr daily 1 patch transdermal DAILY 10/27/23 10/27/23 Unknown History transdermal patch silver sulfadiazine 1 % topical 1 applic topical DAILY 10/27/23 10/27/23 Unknown History cream (Silvadene) Allergies Allergy/AdvReac Type Severity Reaction Status Date / Time amoxicillin [From Augmentin] Allergy Mild rash Verified 09/12/23 09:18 clavulanic acid Allergy Mild rash Verified 09/12/23 09:18 [From Augmentin] levofloxacin Allergy Mild rash Verified 09/12/23 09:18 Current Medications Generic Name Dose Route Start Last Admin Trade Name Freq PRN Reason Stop Dose Admin Albuterol/Ipratropium 3 ml 10/27/23 14:00 10/27/23 14:50 Ipratropium-Albuterol 3 Ml Neb INHALATION 3 ml Q6H.RESP JAIDEN Administration Heparin Sodium (Porcine) 5,000 unit 10/27/23 12:26 10/27/23 13:16 Heparin 5,000 Unit/Ml Inj 1 Ml SUBCUT 5,000 unit Q12H JAIDEN Administration Meropenem 500 mg/ Sodium 50 mls @ 100 mls/hr 10/27/23 16:30 10/27/23 16:19 Chloride IV Infused Q8H [facility] Infusion Protocol Insulin Human Lispro 0 unit 10/27/23 12:26 10/27/23 13:23 Insulin Lispro 100 Unit/1 Ml SUBCUT 4 unit WM&BEDTIME JAIDEN Administration Protocol Midodrine 10 mg 10/27/23 15:00 10/27/23 15:35 Midodrine 5 Mg Tablet PO Not Given TID [facility] PFSH Acute PFSH: Medical History (Updated 10/27/23 @ 16:33 by Alexander Baxter DO) Wound of left lower extremity Acute encephalopathy Anemia ESRD (end stage renal disease) on dialysis Cellulitis Afib Urinary tract infection Hyperkalemia DM2 (diabetes mellitus, type 2) COPD (chronic obstructive pulmonary disease) Stage III pressure ulcer Wound of lower extremity Critical limb ischemia of left lower extremity Elevated lactic acid level GI bleed Acute anemia Abscess or cellulitis of foot Acute lower limb ischemia Arterial occlusion Sepsis End stage kidney disease Congestive heart failure CHF exacerbation History of Clostridioides difficile colitis Bilateral pleural effusion Pulmonary arterial hypertension Acute respiratory distress syndrome Pressure ulcer of right heel, unstageable Shock Septic shock NSTEMI (non-ST elevated myocardial infarction) Aspiration pneumonia Pulmonary edema Acute hypoxic respiratory failure Hypoglycemia Altered mental status Edema Decubitus ulcer of heel, unstageable Enterococcus faecalis infection Endocarditis Hypotension Chronic anemia Sepsis Hyponatremia Pressure ulcer of left leg, stage 2 Pressure ulcer of right leg, stage 2 Wound of left foot Excoriation of groin Excoriation of abdomen Pressure ulcer of left buttock, stage 2 Pressure ulcer of right buttock, stage 2 Wound of right lower extremity Lymphedema Stasis dermatitis Pressure sore on buttocks Inability to perform activities of daily living Kidney dysfunction Fluid overload Hemodialysis status Temporary dialysis catheter placement Acute kidney failure Bradycardia Anasarca Bilateral lower leg cellulitis Metabolic acidosis DKA (diabetic ketoacidosis) Falls Generalized weakness FRANCISCO (acute kidney injury) CHF (congestive heart failure) Chronic respiratory failure with hypoxia Social History Smoking and tobacco/nicotine status: former use of tobacco/nicotine Vitals/I&O/Wt Last Vital Signs Temp 99.5 F 10/27/23 15:44 Pulse 90 10/27/23 15:44 Resp 13 10/27/23 15:44 BP 121/43 10/27/23 15:44 Pulse Ox 96 10/27/23 15:44 O2 Del Method Nasal Cannula 10/27/23 14:51 O2 Flow Rate 3.5 10/27/23 14:51 10/27/23 10/27/23 10/27/23 06:59 14:59 22:59 Intake Total 300 / 300 300 / 600 Balance 300 / 300 300 / 600 Weight last 48 hrs Weight 248 lb 6 oz Physical Exam Narrative: General : Patient is well developed , shaking rigors, unable to answer any questions at the moment Head : Normal cephalic, a-traumatic. Ears : Pinnae and external canal are normal. Hearing is normal. Eyes : PERRLA, Sclera and injection are normal. No conjunctival discharge. Nose : Mucous membranes are without erythema. Throat : buccal mucosa is normal, gums are without significant recession or hypertrophy. Lungs : Equal chest rise bilaterally, no use of accessory muscles, trachea is midline. Cor : Rate and rhythm are normal. Abdomen : Soft, ND, NT, no g/r/m Extremities : Right heel stage III ulcer status postdebridement without erythema or exudate, multiple stage II ulcerations to left leg along with dry ischemic areas on his foot, no evidence of overt acute infection, minimal erythema and purulence Back : non-tender to palpation, no CVA tenderness. Neuro : CN II - XII intact, Upper and lower extremities have equal and full strength Data 10/27/23 08:17 10/27/23 08:17 Micro: Microbiology 10/27/23 08:29 Blood Culture - Preliminary Blood SPECIMEN COLLECTED 10/27/23 08:17 Blood Culture - Preliminary Blood SPECIMEN COLLECTED A&P Assessment and plan (1) Wound of left lower extremity: Qualifiers: Encounter type: sequela Qualified Code(s): S81.802S - Unspecified open wound, left lower leg, sequela Plan These wounds to his left lower extremity are ischemic and do not appear to have an overt acute infection that would be causing his sepsis and rigors. He underwent an angiogram by Dr. Dcik recently and he recommended medical management for peripheral vascular disease of the left lower extremity. I like to consult vascular surgery to see if there is a possibility of bypass. If we are unable to increase blood flow to this extremity, he will require a below-knee amputation. My concern with this however is that there are wounds on the proximal left leg that would be included in the flap closure and he may have poor wound healing and end up progressing to an above-knee amputation. Further recommendations pending recommendations of vascular surgery Dry dressings for now Medical management per hospitalist Will follow Coding Level of Care Code 68180 Diagnoses Wound of left lower extremity, sequela S81.802S Encounter type: sequela
[2023-10-27] MEDS: norepinephrine 4 MG/250 ML BAG 30 MG IV ×2 (16:36→22:22)
[2023-10-27] MEDS: albumin 12.5 GM/50 ML VIAL IV (16:40)
[2023-10-27] MEDS: heparin, porcine 1,000 unit/mL INJ 10 mL 1000 UNIT IV (17:09)
--- NOTE | 2023-10-27 17:46 | XRR_ITS ---
PROCEDURE INFORMATION: Exam: XR Chest Exam date and time: 10/27/2023 5:54 PM Age: 62 years old Clinical indication: Device placement; Other: Central line attempt; Prior surgery; Surgery date: 6+ months; Surgery type: Dialysis cath heart; Additional info: Central line placement first attempt TECHNIQUE: Imaging protocol: Radiologic exam of the chest. Views: 1 view. COMPARISON: CR XR chest 1V portable [id number] 10/15/2023 1:03 PM FINDINGS: Tubes, catheters and devices: The right internal jugular (IJ) venous catheter remains unchanged, with its tip terminating in the atrium. Additionally, there is an attempted interval placement of a new right IJ central venous catheter, which is looped in the superior IJ. Lungs: Diffuse patchy opacities, worsening when compared to prior imaging. Multifocal pneumonia is suspected. Pleural spaces: Small left-sided pleural effusion. Heart/Mediastinum: Enlarged cardiac silhouette. Bones/joints: Unremarkable. XR/XR chest 1V portable [id number] IMPRESSION: 1. There is an attempted interval placement of a new right IJ central venous catheter, which is looped in the superior IJ. 2. Diffuse patchy opacities, worsening when compared to prior imaging. Multifocal pneumonia is suspected. The aforementioned findings initiated a critical results communication pathway. An addendum will be issued at the time of clinician notification.
--- NOTE | 2023-10-27 18:10 | P.PNCC_ITS ---
Critical Care Event Note Was asked by Dr. Lundberg to place a central line in this patient. He is currently receiving dialysis he does have a tunneled dialysis catheter in the right subclavian Critical Care Time Code activated: No Critical Care Time (min): 0 Procedures Central Line Placement^ Right IJ: Time out performed: Yes Patient placed on monitor/pulse ox: Yes MD prep: mask, gown and gloves Central line prep: Chlorhexidine scrub Local anesthesia used: lidocaine 1% Amount of anesthesia used (ml): 8 Ultrasound used for placement: Yes Central line lumen inserted: triple Post procedure: sutured in place, good blood return, all ports aspirated, flushed, capped and sterile dressing applied Post procedure x-ray: tip of catheter in good position Complications: catheter malposition Additional comments: Initial attempt to the right IJ vessel was accessed easily and the catheter advanced however on x-ray it showed that the catheter appears to have hit the Cordis of the tunneled dialysis catheter curled back up into the IJ and then curled again and was positioned with the tip pointing to the heart within the IJ. At the time of placement were able to draw and flushed through all 3 ports without difficulty. After reviewing the film that catheter was removed completely and the area of the neck resterilized. Using ultrasound and using the same entrance site in the skin we reaccessed the IJ using a 16 cm shorter catheter the catheter was placed without difficulty x-ray shows good positi oning. Coding Level of Care Code Acute Code for Chg Fwd
--- NOTE | 2023-10-27 18:42 | XRR_ITS ---
PROCEDURE INFORMATION: Exam: XR Chest Exam date and time: 10/27/2023 6:56 PM Age: 62 years old Clinical indication: Device placement; Other: Central line; Prior surgery; Surgery date: 6+ months; Surgery type: Dialysis cath heart; Patient HX: PT cannot lay flat rotated to the left; Additional info: Ceentral line placement, will call when ready 2nd attempt TECHNIQUE: Imaging protocol: Radiologic exam of the chest. Views: 1 view. COMPARISON: CR XR chest 1V portable [id number] 10/27/2023 5:54 PM FINDINGS: Tubes, catheters and devices: Interval placement of a new right IJ catheter with its tip terminating in the inferior IVC. Right IJ catheter terminating in the right atrium, unchanged. Lungs: Bilateral lung consolidations. Pleural spaces: Unchanged small left-sided pleural effusion. Heart/Mediastinum: Enlarged cardiac silhouette. Bones/joints: Degenerative changes. Other findings: No other acute interval changes. XR/XR chest 1V portable [id number] IMPRESSION: Interval placement of a new right IJ catheter with its tip terminating in the inferior IVC. Right IJ catheter terminating in the right atrium, unchanged.
--- NOTE | 2023-10-27 19:17 | PC.NURSE ---
1800 insulin late due to central line placement in progress.
[2023-10-27 19:24] LABS: Glucose Point of Care 127 mg/dL (70-110)
--- NOTE | 2023-10-27 19:41 | PC.NURSE ---
Event/ shift note: Blood pressure decreased significantly MAP in 40's, dialysis nurse in room patient not yet receiving dialysis. Dr. Montalvo contacted with patient update and order for levophed obtained. Dr. Shaw to bedside to place line. Consent received via telephone from Patients . Central line readjusted, Dr. Shaw. Patient is more awake verses upon transfer to icu. Patient does no report pain when prompted, patient unable to take PO meds this shift. Temperature max 100.4 for this shift. Patient on 4L NC, states that is his base.
[2023-10-27] MEDS: budesonide 0.5 mg/2 mL Neb INHALATION (19:46)
[2023-10-27] MEDS: acetaminophen 1,000 MG/100 ML PIGGYBACK 400 MG IV (20:29)
[2023-10-27] MEDS: dexmedeTOMIDine 0.9 % NaCL 400 MCG/100 ML PREMIX 2.81999999999999984 MCG IV (21:25)
--- NOTE | 2023-10-27 21:53 | XRR_ITS ---
PROCEDURE INFORMATION: Exam: XR Chest Exam date and time: 10/27/2023 10:12 PM Age: 62 years old Clinical indication: Device placement; Other: Recheck central line; Prior surgery; Surgery date: 6+ months; Surgery type: Dialysis cath; Additional info: Central line placement TECHNIQUE: Imaging protocol: Radiologic exam of the chest. Views: 1 view. COMPARISON: CR (CHEST, ) 10/27/2023 6:56 PM FINDINGS: Tubes, catheters and devices: Two right central venous catheter tips, one over the right atrium and the other in the superior vena cava. Lungs: Patchy bilateral ground-glass airspace opacities reflecting alveolar edema and/or pneumonic infiltrates. Pulmonary vascular congestion. Pleural spaces: Small to moderate bilateral pleural effusions. Heart/Mediastinum: Cardiomegaly. Bones/joints: Unremarkable. XR/XR chest 1V portable [id number] IMPRESSION: 1. Patchy bilateral ground-glass airspace opacities reflecting alveolar edema and/or pneumonic infiltrates. 2. Two right central venous catheter tips, one over the right atrium and the other in the superior vena cava. 3. Small to moderate bilateral pleural effusions. 4. Cardiomegaly. 5. Pulmonary vascular congestion.
[2023-10-27 23:13] LABS: Glucose Point of Care 207 mg/dL (70-110)
[2023-10-27 23:13] LABS: Glucose Point of Care 137 mg/dL (70-110)
--- NOTE | 2023-10-27 23:13 | PC.NURSE ---
Patient receiving dialysis at 1900, was lethargic, febrile, shaking, unable to answer questions or follow directions. Color was dusky, extremities cold, oxygen saturation dropped frequently as low as 80% and did not recover well. Dr. Correa made aware and orders received for bipap. By 1999 temp had increased, new order received for IV tylenol. Unable to confirm placement of right IJ and ordered to repeat xray after tylenol and shivering subsides. Patient began to awaken and quickly became very anxious, began pulling on bipap, attempted to pull out IJ and IV lines, pulled off tele leads, pulled on harmon, and required constant monitoring for safety. New order received for administration of precedex as per facility protocol. Patient began to calm within two hours. Color improved, skin was pink and warm, was diaphoretic, temp improved to 99.3 ax, oxygen saturation 92 with 4 liters via NC, able to follow conversation but remained oriented only to self. Patient resting at this time, awakens with auditory stimuli, able to follow simple directions, no pulling at lines.
[2023-10-28] VITALS (205 sets, daily range): BP systolic 77–130; BP diastolic 37–73; PULSE 84–178; RESP 7–38; TEMP 36.5–37.7; O2SAT 79–100
[2023-10-28] MEDS: heparin 5,000 unit/mL INJ 1 mL 5000 UNIT SUBCUT ×2 (00:22→11:48)
[2023-10-28] MEDS: meropenem 500 MG in sodium chloride 0.9% (plus) 50 ML 100 MG IV ×3 (00:22→16:26)
--- NOTE | 2023-10-28 02:46 | PC.NURSE ---
Skin assessment done. Large area extending 4 cm above sacrum, approx 5 cm to both sides of gluteal cleft, extending onto upper posterior thighs approx 5 cm, with red dusky non blanching tissue with scattered open areas of varying sizes stage 2. Sacrum with 2 cm long x 1 cm wide stage 2 pressure injury, and two areas of eschar. Right heel with stage 3 pressure injury (prior debridement), wound bed dusky pink with white slough scattered t/o wound, edges white, non blanching. 6 cm long x 1 cm wide abrasion to anterior right lower leg. Right foot dusky red with multiple stasis wounds, varying in size and degree, large amount of eschar to anterior and lateral side, no drainage. Lateral right lower leg with multiple stasis wounds extending into subcutaneous tissue. Wounds dusky pink with slough present in wound beds, moderate amount of yellow purulent drainage, surrounding tissue white and non blanching. Optifoam applied to sacral wound, barrier cream applied to gluteal wounds and mascerated tissue. Bilateral foot and leg wounds covered with kerlex.
[2023-10-28 04:49] LABS: Basophils % 0.4 %; Eosinophils # 0.1 10^3/uL (0.0-0.8); Eosinophils % 1.3 %; Hematocrit 23.2 % (37-53); Lymphocytes # 0.4 10^3/uL (0.8-4.8); Lymphocytes % 7.1 %; Mean Corpuscular HGB Conc 30.2 g/dL (30-55); Mean Corpuscular Volume 96.3 fl (82-101); Mean Platelet Volume 10.7 fL (7.4-10.4); Monocytes # 0.3 10^3/uL (0.2-0.9); Monocytes % 5.7 %; Neutrophils # 4.44 10^3/uL (1.8-7.7); Neutrophils % 85.1 %; Nucleated Red Blood Cells % 0 %; Platelet Count 137 10^3/cmm (157-399); Red Blood Count 2.41 10^6/uL (3.85-5.65); Red Cell Distribution Width 17.7 % (12.1-15.1); White Blood Count 5.22 10^3/uL (3.29-11.43)
[2023-10-28] MEDS: dexmedeTOMIDine 0.9 % NaCL 400 MCG/100 ML PREMIX 11.2699999999999996 MCG IV (04:56)
[2023-10-28 05:12] LABS: Calcium 7.8 mg/dL (8.5-10.5)
[2023-10-28 05:13] LABS: Alanine Aminotransferase 6 U/L (0-41); Albumin Level 2.7 g/dL (3.5-5.2); Alkaline Phosphatase 241 U/L (40-130); Anion Gap 13.3 (5-19); Aspartate Amino Transferase 15 U/L (0-40); Blood Urea Nitrogen 19 mg/dL (8-23); Calcium 7.8 mg/dL (8.5-10.5); Carbon Dioxide 29 mmol/L (22-29); Chloride 102 mmol/L (98-107); Globulin 3.2 g/dL (1.3-4.6); Glomerular Filtration Rate 19.9 mL/min (90-130); Glucose 173 mg/dL (65-115); Iron 69 ug/dL (59-158); Osmolality Calculated 296 mOsm/kg (285-295); Phosphorus 3.4 mg/dL (2.5-4.5); Potassium 4.3 mmol/L (3.5-5.1); Sodium 140 mmol/L (136-145); Total Bilirubin 0.6 mg/dL (0.15-1.2); Total Iron Binding Capacity 115 mcg/dl; Total Protein 5.9 g/dL (6.6-8.7); Unsaturated Iron Binding 46 ug/dL (112-347)
[2023-10-28 05:14] LABS: Creatinine Clr Calc Pharmacy 31.6528
[2023-10-28 05:17] LABS: Parathyroid Hormone 114.3 pg/mL (15-65)
[2023-10-28 05:26] LABS: Ferritin 2687 ng/mL (30-400)
[2023-10-28 05:27] LABS: 25 Hydroxy Vitamin D 27 ng/mL (30-100)
--- NOTE | 2023-10-28 05:41 | P.CONIM_ITS ---
Providers/Reason For Consult 2 Consulting Physician/Specialty*: Dr. Hunt/cardiothoracic surgery Reason for Consult*: Peripheral vascular disease with gangrene left lower extremity Requesting Physician: Dr. Baxter Attending Physician: Lenny Montalvo MD Primary Care Provider: Misty Ibrahim History of Present Illness History of Present Illness Geronimo Barahona is a 62 year old male with multiple medical problems including end-stage renal disease on hemodialysis, diabetes mellitus, peripheral vascular disease with prior toe amputations, apparent history of endocarditis medically treated, sepsis requiring vasopressors, and progressive ischemia of the left lower extremity. He was recently hospitalized from October 07 to October 16 for acute ischemia of the left lower extremity. He underwent ultimately angiography by Dr. Hilton on October 07. This study revealed a subtotaled left SFA in its mid distal portion with reconstitution by collaterals to a patent popliteal artery and one-vessel runoff to the posterior tibial artery. It was recommended that Patient undergo medical management. He resides in a local skilled care facility. He represented yesterday with fever and confusion and is currently undergoing treatment for sepsis. Examination reveals progression of his ischemia to the left lower extremity with sid gangrene of the lateral aspect of the left foot involving the fifth toe and fourth toe up to near the ankle level. He has various full-thickness skin loss areas anteriorly and particularly posteriorly, which appears to be a combination of ischemia and pressure related. He also has a pressure ulcer to the right calcaneal region. He was able to answer some very basic questions this morning and obviously had discomfort when I was examining his left lower extremity. He remains confused as to location and time. Presently, he is on norepinephrine though this dose is being tapered. He has remained anemic and did receive a 1 unit transfusion yesterday. Due to hyperkalemia he also underwent hemodialysis yesterday. This morning's lab revealed his hemoglobin is still 7 without substantial change from previous. White count 5.2. Platelet count has continued to fall at 137,000. Potassium is substantially improved at 4.3 as compared to 5.7 yesterday. Sodium is 140. Ferritin is substantial elevated at 2687. Today's calcium is 7.8 which is even lower than yesterday at 8.3. Mr. Barahona is unable to give any pertinent personal history and is mostly somnolent. Prior medical history was obtained from chart review and discussion with Dr. Baxter. Presenting chest x-ray reveals volume overload. This was prior to his hemodialysis session yesterday. He remains tachycardic though his MAP is improving and with this, his mentation has modestly improved as well. Review of Systems 2 General: Reports: ROS unobtainable due to medical condition Medications/Allergies Home Medications Medication Instructions Recorded Confirmed Last Taken Type albuterol sulfate 2.5 mg/3 mL 2.5 mg inhalation Q4H PRN 10/03/22 10/27/23 Unknown History (0.083 %) solution for nebulization Shortness Of Breath amiodarone 200 mg tablet 200 mg PO QAM 10/03/22 10/27/23 10/08/23 History acetaminophen 325 mg tablet 650 mg PO Q6H PRN Pain 08/12/23 10/27/23 10/27/23 History bisacodyl 10 mg rectal suppository 10 mg UT DAILY PRN Constipation 08/12/23 10/27/23 Unknown History hydrocodone 5 mg-acetaminophen 325 1 tab PO Q6H PRN Pain 08/12/23 10/27/23 10/08/23 History mg tablet insulin aspart U-100 100 unit/mL See Rx Instructions .Route .COMPLEX 08/12/23 10/27/23 10/08/23 History (3 mL) subcutaneous pen (Novolog FlexPen U-100 Insulin aspart) metoprolol tartrate 50 mg tablet See Rx Instructions .Route .COMPLEX 08/12/23 10/27/23 10/08/23 History nystatin 100,000 unit/gram topical 1 applic topical DAILY 08/12/23 10/27/23 10/07/23 History powder Saccharomyces boulardii 250 mg 250 mg PO BID 09/14/23 10/27/23 10/08/23 History capsule albuterol sulfate 90 mcg/actuation 2 puff inhalation Q6H PRN 09/14/23 10/27/23 Unknown History aerosol inhaler (Ventolin HFA) Shortness Of Breath bumetanide 1 mg tablet See Rx Instructions .Route .COMPLEX 09/14/23 10/27/23 Unknown History calcium acetate 667 mg tablet 667 mg PO DAILY 09/14/23 10/27/23 10/08/23 History clopidogrel 75 mg tablet 75 mg PO DAILY 09/14/23 10/27/23 10/08/23 History gabapentin 100 mg capsule 100 mg PO TID 09/14/23 10/27/23 10/08/23 History vancomycin 125 mg capsule 125 mg PO TID #60 caps 09/25/23 10/27/23 10/08/23 Rx insulin glargine 100 unit/mL (3 12 unit SUBCUT QPM 10/08/23 10/27/23 10/07/23 History mL) subcutaneous pen (Lantus Solostar U-100 Insulin) metoprolol tartrate 50 mg tablet See Rx Instructions .Route .COMPLEX 10/08/23 10/27/23 10/07/23 History morphine 15 mg tablet,extended 15 mg PO Q12H 10/27/23 10/27/23 Unknown History release nicotine 21 mg/24 hr daily 1 patch transdermal DAILY 10/27/23 10/27/23 Unknown History transdermal patch silver sulfadiazine 1 % topical 1 applic topical DAILY 10/27/23 10/27/23 Unknown History cream (Silvadene) Allergies Allergy/AdvReac Type Severity Reaction Status Date / Time amoxicillin [From Augmentin] Allergy Mild rash Verified 09/12/23 09:18 clavulanic acid Allergy Mild rash Verified 09/12/23 09:18 [From Augmentin] levofloxacin Allergy Mild rash Verified 09/12/23 09:18 Current Medications Generic Name Dose Route Start Last Admin Trade Name Freq PRN Reason Stop Dose Admin Albuterol/Ipratropium 3 ml 10/27/23 14:00 10/28/23 02:18 Ipratropium-Albuterol 3 Ml Neb INHALATION Not Given Q6H.RESP JAIDEN Budesonide 0.5 mg 10/27/23 20:00 10/27/23 19:46 Budesonide 0.5 Mg/2 Ml Neb INHALATION 0.5 mg BID JAIDEN Administration Heparin Sodium (Porcine) 5,000 unit 10/27/23 12:26 10/28/23 00:22 Heparin 5,000 Unit/Ml Inj 1 Ml SUBCUT 5,000 unit Q12H JAIDEN Administration Albumin Human 12.5 gm in 50 mls @ 60 mls/hr 10/27/23 11:36 10/27/23 21:15 Albumin IV Infused PRN PRN Infusion Hypotension and/or symptomatic Meropenem 500 mg/ Sodium 50 mls @ 100 mls/hr 10/27/23 16:30 10/28/23 03:03 Chloride IV Infused Q[facility]H [facility] Infusion Protocol Norepinephrine Bitartrate 4 mg in 250 mls @ 0 mls/hr 10/27/23 16:30 10/28/23 03:37 Levophed IV 2 mcg/min .Q0M JAIDEN 7.5 mls/hr Titration Protocol Per Protocol Dexmedetomidine/Sodium Chloride 400 mcg in 100 mls @ 0 mls/hr 10/27/23 21:15 10/28/23 04:56 Precedex IV 0.4 mcg/kg/hr .Q0M JAIDEN 11.27 mls/hr Administration Protocol Per Protocol Insulin Human Lispro 0 unit 10/27/23 12:26 10/27/23 21:59 Insulin Lispro 100 Unit/1 Ml SUBCUT Not Given [facility] Protocol Midodrine 10 mg 10/27/23 15:00 10/27/23 21:59 Midodrine 5 Mg Tablet PO Not Given TID JAIDEN PFSH Acute 2 PFSH: Medical History Wound of left lower extremity Acute encephalopathy Anemia ESRD (end stage renal disease) on dialysis Cellulitis Afib Urinary tract infection Hyperkalemia DM2 (diabetes mellitus, type 2) COPD (chronic obstructive pulmonary disease) Stage III pressure ulcer Wound of lower extremity Critical limb ischemia of left lower extremity Elevated lactic acid level GI bleed Acute anemia Abscess or cellulitis of foot Acute lower limb ischemia Arterial occlusion Sepsis End stage kidney disease Congestive heart failure CHF exacerbation History of Clostridioides difficile colitis Bilateral pleural effusion Pulmonary arterial hypertension Acute respiratory distress syndrome Pressure ulcer of right heel, unstageable Shock Septic shock NSTEMI (non-ST elevated myocardial infarction) Aspiration pneumonia Pulmonary edema Acute hypoxic respiratory failure Hypoglycemia Altered mental status Edema Decubitus ulcer of heel, unstageable Enterococcus faecalis infection Endocarditis Hypotension Chronic anemia Sepsis Hyponatremia Pressure ulcer of left leg, stage 2 Pressure ulcer of right leg, stage 2 Wound of left foot Excoriation of groin Excoriation of abdomen Pressure ulcer of left buttock, stage 2 Pressure ulcer of right buttock, stage 2 Wound of right lower extremity Lymphedema Stasis dermatitis Pressure sore on buttocks Inability to perform activities of daily living Kidney dysfunction Fluid overload Hemodialysis status Temporary dialysis catheter placement Acute kidney failure Bradycardia Anasarca Bilateral lower leg cellulitis Metabolic acidosis DKA (diabetic ketoacidosis) Falls Generalized weakness FRANCISCO (acute kidney injury) CHF (congestive heart failure) Chronic respiratory failure with hypoxia Social History Smoking and tobacco/nicotine status: former use of tobacco/nicotine Vitals/I&O/Wt Last Vital Signs Temp 98.4 F 10/28/23 05:00 Pulse 110 H 10/28/23 05:12 Resp 19 H 10/28/23 05:05 BP 95/46 10/28/23 05:05 Pulse Ox 96 10/28/23 05:05 O2 Del Method Nasal Cannula 10/28/23 02:00 O2 Flow Rate 4 10/28/23 02:00 FiO2 50 10/27/23 19:52 10/27/23 10/27/23 10/28/23 14:59 22:59 06:59 Intake Total 300 / 300 1180.037 / 1480.037 204.001 / 1684.038 Output Total 1504 / 1504 Balance 300 / 300 -323.963 / -23.963 204.001 / 180.038 Weight last 48 hrs Weight 245 lb 13.047 oz Weight 248 lb 6 oz Physical Exam 2 Const: COMMON NORMALS: average body habitus; negative for patient oriented x3, negative for healthy appearing and negative for alert HENMT: COMMON NORMALS: normocephalic, atraumatic, hearing grossly normal bilaterally, external ears normal and Normal external nose present HEAD & SCALP: normocephalic and atraumatic NOSE: Normal external nose present E XTERNAL EAR: Yes external ears normal Eye: COMMON NORMALS: EOMs intact bilaterally Neck/C-Spine: OTHER: Right IJ central line in position Chest: COMMONS NORMALS: normal inspection of the chest and normal palpation of entire chest wall Resp: OTHER: Modest inspiratory effort. Basilar crackles Cardio: RATE: tachycardic RHYTHM: abnormal rhythm irregularly irregular (Longstanding history for atrial fibrillation) GI: COMMON NORMALS: Soft to palpation and non-tender AUSCULTATION: Yes Hypoactive bowel sounds present PALPATION: Yes Soft to palpation Extremity: OTHER: There is a full-thickness pressure wound to the right calcaneus. Moderate exudate noted. Mr. Ray would benefit from heel suspension boot. There is desquamation of the skin from mid tibial region distally. It appears he is missing his great toe and second toe on the right. On the left side there is sid full-thickness gangrenous changes to the lateral aspect of the left foot involving the left fifth toe and fourth toe. This is extends up to the ankle. There is overlying erythema to the dorsum of the left foot as well as the distal two thirds of the left leg. There are full-thickness isolated islands of ulceration anteriorly though more prominently in the mid distal posterior aspect of the left calf, presumably a combination of vascular status as well as pressure and recent need for vasopressor support. With request, he is able to move his ankle a bit on the left though he cannot move his toes. On the right side he is able to move his ankle with greater motion and also move his toes to some degree. Neuro: COMMON NORMALS: negative for patient oriented x3 S ENSORIUM/ORIENTATION: No alert Urinary Catheter Management: Fuentes: Cath Placed During This Visit: yes Urinary Catheter Date of Insertion: 10/27/23 Urinary Catheter Time of Insertion: 09:00 Data 10/28/23 04:29 10/28/23 04:29 Micro: Microbiology 10/27/23 08:29 Blood Culture - Preliminary Blood SPECIMEN COLLECTED 10/27/23 08:17 Blood Culture - Preliminary Blood SPECIMEN COLLECTED A&P Assessment and plan (1) Atherosclerosis of left lower extremity with gangrene: I have reviewed the aortic CTA with runoff of October 07 as well as the peripheral angiography by Dr. Hilton from October 09. It appears that Mr. Barahona has subtotal occlusion of the mid distal left SFA with good collateralization with a patent popliteal artery and a relatively clean posterior tibial artery with runoff well down through the ankle. His peroneal and anterior tibial on the left were not well-visualized by either study. Follow-up clinically, I femoral-popliteal artery bypass could be performed, I do not think it would provide any further enhancement to the distal perfusion given his good collateralization around the distal SFA and a clean posterior tibial artery with runoff extending well down into the ankle. Unfortunately, with his current medical status as well as with his sid gangrene involving a substantial portion of the left foot, I do not feel that any type of revascularization procedure would salvage the left lower extremity. Given his ongoing medical needs as well as need for vasopressor support, I feel that unfortunately, amputation will be required. I do not think a revascularization would be able to salvage his mid distal left lower extremity. Coding Level of Care Code Acute Code for Chg Fwd Diagnoses Atherosclerosis of left lower extremity with gangrene I70.262
[2023-10-28] MEDS: amiodarone 200 mg Tablet PO (06:10)
--- NOTE | 2023-10-28 07:21 | PM.PN ---
Subjective Subjective: leg pains, on 4 l nc 02, low dose pressers. no n/v/f/c/ross/d Medications: Reviewed: Yes Medication Review Details: Current Medications Acetaminophen (Acetaminophen 325 Mg Tablet) 650 mg PO Q6H PRN PRN Reason: MILD PAIN Albuterol/Ipratropium (Ipratropium-Albuterol 3 Ml Neb) 3 ml INHALATION Q6H.RESP JAIDEN Last Admin: 10/28/23 02:18 Dose: Not Given Amiodarone HCl (Amiodarone 200 Mg Tablet) 200 mg PO QAM [facility] Last Admin: 10/28/23 06:10 Dose: 200 mg Budesonide (Budesonide 0.5 Mg/2 Ml Neb) 0.5 mg INHALATION BID [facility] Last Admin: 10/27/23 19:46 Dose: 0.5 mg Clopidogrel Bisulfate (Clopidogrel 75 Mg Tablet) 75 mg PO DAILY JAIDEN Glucagon (Glucagon 1 Mg/Ml Kit 1 Ml) 1 mg IM ONCE PRN; Protocol PRN Reason: Adult Acute Hypoglycemia Nursing Prot. Heparin Sodium (Porcine) (Heparin 5,000 Unit/Ml Inj 1 Ml) 5,000 unit SUBCUT Q12H [facility] Last Admin: 10/28/23 00:22 Dose: 5,000 unit Albumin Human (Albumin) 12.5 gm in 50 mls @ 60 mls/hr IV PRN PRN PRN Reason: Hypotension and/or symptomatic Last Infusion: 10/27/23 21:15 Dose: Infused Meropenem 500 mg/ Sodium (Chloride) 50 mls @ 100 mls/hr IV Q8H JAIDEN; Protocol Last Infusion: 10/28/23 03:03 Dose: Infused Dextrose (D5w) 500 mls @ 0 mls/hr IV ONCE PRN; Protocol PRN Reason: Adult Acute Hypoglycemia Prot Dextrose (D10w) 125 mls @ 750 mls/hr IV PRN PRN; Protocol PRN Reason: Adult Acute Hypoglycemia Nursing Protocol Dextrose (D10w) 250 mls @ 1,000 mls/hr IV PRN PRN; Protocol PRN Reason: Adult Acute Hypoglycemia Nursing Protocol Vancomycin/PEG/NADA/Lysine/Water (Vancocin) 1,250 mg in 250 mls @ 250 mls/hr IV Q36H JAIDEN Norepinephrine Bitartrate (Levophed) 4 mg in 250 mls @ 0 mls/hr IV .Q0M JAIDEN; Protocol Last Titration: 10/28/23 06:19 Dose: 2 mcg/min, 7.5 mls/hr Dexmedetomidine/Sodium Chloride (Precedex) 400 mcg in 100 mls @ 0 mls/hr IV .Q0M JAIDEN; Protocol Last Admin: 10/28/23 04:56 Dose: 0.4 mcg/kg/hr, 11.27 mls/hr Insulin Human Lispro (Insulin Lispro 100 Unit/1 Ml) 0 unit SUBCUT WM&BEDTIME JAIDEN; Protocol Last Admin: 10/27/23 21:59 Dose: Not Given Midodrine (Midodrine 5 Mg Tablet) 10 mg PO TID JAIDEN Last Admin: 10/27/23 21:59 Dose: Not Given Ondansetron HCl (Ondansetron 2 Mg/Ml Sdv 2 Ml) 4 mg IVP Q6H PRN PRN Reason: NAUSEA AND VOMITING Pantoprazole Sodium (Pantoprazole 40 Mg Sdv) 40 mg IVP DAILY [facility] Sodium Chloride (Sodium Chloride 0.9% 100 Ml Bag) 50 ml IV PRN PRN PRN Reason: Blood transfusion prime and flush Stop: 10/28/23 09:47 Sodium Chloride (Sodium Chloride 0.9% 100 Ml Bag) 50 ml IV PRN PRN PRN Reason: Blood transfusion prime and flush Stop: 10/29/23 07:09 Vitals/I&O/Wt Last Vital Signs Temp 98.2 F 10/28/23 06:00 Pulse 94 10/28/23 06:10 Resp 14 10/28/23 06:10 BP 123/52 10/28/23 06:10 Pulse Ox 94 10/28/23 06:10 O2 Del Method Nasal Cannula 10/28/23 02:00 O2 Flow Rate 4 10/28/23 02:00 FiO2 50 10/27/23 19:52 10/27/23 10/28/23 10/28/23 22:59 06:59 14:59 Intake Total 1180.037 / 1480.037 223.126 / 1703.163 Output Total 1504 / 1504 50 / 1554 Balance -323.963 / -23.963 173.126 / 149.163 Weight last 48 hrs Weight 109.5 kg Weight 109.5 kg Weight 111.5 kg Weight 112.661 kg Physical Exam Narrative: General exam - febrile, VS noted swollen in bed, nc 02- used bipap at night HEENT: Atraumatic and normocephalic. Neck is supple Right ACW permacath Heart- regular + s1, s2 Lungs clear Abdomen is soft NT, ND demonstrates Fuentes Extremities no cyanosis clubbing. Edema is present bilaterally. Left lower extremity demonstrates erythema, edema, significant skin breakdown oschemic areas on toes Neuro: awake, alert, orient x 2+ poor pulses exam by RN- telehealth exam Urinary Catheter Management: Fuentes: Cath Placed During This Visit: yes Reason for Continuing Indwelling Catheter: Accurate Measurement of Urinary Output in Critically Ill Patients Urinary Catheter Date of Insertion: 10/27/23 Urinary Catheter Time of Insertion: 09:00 Data 10/28/23 04:29 10/28/23 04:29 Micro: Microbiology 10/27/23 08:29 Blood Culture - Preliminary Blood SPECIMEN COLLECTED 10/27/23 08:17 Blood Culture - Preliminary Blood SPECIMEN COLLECTED A&P Assessment and plan (1) ESRD (end stage renal disease) on dialysis: 62 yr old man 1. ESRD- HD MWF. s/p HD yesterday. will repeat HD today or tomorrow 2. AMS and fevers- agree w/ sepsis evaluation. renal dose abx two weeks ago his feet had many gram neg organisms 3. DM control 4.PVD w/ occluded L SFA- per surgery and cardiology- appreciate Dr Hunt of vascular- pt will need an amputation 5. anemia- agree w/ blood tx. s/p 1 unit yesterday. give another today - will also give CHUCK 6. a fib controlled discussed w/ pt, RN, and Dr Montalvo pt consented to telehealth and hemodialysis. Plan see above Attestations Medical Necessity Statement*: sepsis, PVD, ESRD, bipap at night, Time Spent in Patient Care: Greater than 35 minutes Coding Level of Care Code Acute Code for Chg Fwd Diagnoses ESRD (end stage renal disease) on dialysis N18.6; Z99.2
[2023-10-28 07:42] LABS: Glucose Point of Care 174 mg/dL (70-110)
[2023-10-28] MEDS: insulin lispro 100 unit/1 mL SUBCUT ×3 (07:42→20:58)
[2023-10-28] MEDS: ipratropium-albuterol 3 mL Neb INHALATION ×3 (08:10→19:45)
[2023-10-28] MEDS: budesonide 0.5 mg/2 mL Neb INHALATION ×2 (08:10→19:45)
--- NOTE | 2023-10-28 09:05 | P.PN_ITS ---
Subjective 2 Subjective: Was placed on Precedex last night, and BiPAP while sleeping. Had some agitation and pulling at lines yesterday. Awakens easily this morning, but responses are somewhat slowed likely secondary to the Precedex. Medications: Reviewed: Yes Vitals/I&O/Wt Last Vital Signs Temp 97.7 F 10/28/23 08:00 Pulse 131 H 10/28/23 08:55 Resp 16 10/28/23 08:55 BP 105/47 10/28/23 08:55 Pulse Ox 91 10/28/23 08:55 O2 Del Method Nasal Cannula 10/28/23 08:05 O2 Flow Rate 4 10/28/23 08:05 FiO2 50 10/27/23 19:52 10/27/23 10/28/23 10/28/23 22:59 06:59 14:59 Intake Total 1180.037 / 1480.037 223.126 / 1703.163 31.319 / 31.319 Output Total 1504 / 1504 50 / 1554 Balance -323.963 / -23.963 173.126 / 149.163 31.319 / 31.319 Weight last 48 hrs Weight 109.5 kg Weight 109.5 kg Weight 111.5 kg Weight 112.661 kg Physical Exam 2 Narrative: General exam is white male, who awakens easily but some confusion. When talking about his leg he is worried about an amputation Neck is supple no lymphadenopathy thyromegaly Cardiovascular regular rate and rhythm, no murmur Lungs clear Abdomen is soft demonstrates Fuentes Extremities no cyanosis clubbing. Edema is present bilaterally. Left lower extremity demonstrates erythema, edema, significant skin breakdown Urinary Catheter Management: Fuentes: Cath Placed During This Visit: yes Reason for Continuing Indwelling Catheter: Accurate Measurement of Urinary Output in Critically Ill Patients Urinary Catheter Date of Insertion: 10/27/23 Urinary Catheter Time of Insertion: 09:00 Data 10/28/23 04:29 10/28/23 04:29 Micro: Microbiology 10/27/23 11:12 Urine Culture - Preliminary Urine,Clean Catch Gram Negative Rods 10/27/23 08:29 Blood Culture - Preliminary Blood NEGATIVE TO DATE 10/27/23 08:17 Blood Culture - Preliminary Blood NEGATIVE TO DATE A&P Assessment and plan (1) Sepsis: Patient presents with evidence of sepsis He is not a candidate for fluid bolus secondary to his end-stage renal disease on hemodialysis, no evidence of fluid overload on exam. His lactate is normal. He has evidence of sepsis with fever, tachypnea, encephalopathy with a source of his left lower extremity ulcer. There is also a concern of possible UTI and/or pneumonia. I do not think he has an atypical infection such as mycoplasma causing his current symptomatology. Norepinephrine needs have decreased. He is on 2 mcg currently and hopefully can be discontinued. He was started on midodrine by nephrology which will be helpful as well. Blood culture negative to date, urine growing gram-negative rods (2) Pneumonia: Respiratory panel was negative Sputum culture, blood culture pending Oxygen as needed (3) ESRD (end stage renal disease) on dialysis: He is on hemodialysis, with a schedule of Friday He is hyperkalemic, and evidence of fluid overload consistent with acute diastolic heart failure. His hyperkalemia has now resolved with dialysis Last echocardiogram in September demonstrated preserved EF, and echodensities were possibly a healed vegetation on his aortic valve. Nephrology consultation appreciated (4) Anemia: Patient with significant anemia He received 1 unit packed red blood cells 10/26. Will order another unit today. No evidence of ongoing active bleeding. Protonix for GI prophylaxis. (5) Hyperkalemia: Improved following dialysis (6) Cellulitis: Significant cellulitis left lower extremity with wound breakdown and previous culture showing multiple organisms Continue meropenem and vancomycin Await blood culture (7) Endocarditis: Past history of endocarditis Repeat echo done recently demonstrated what appeared to be an area of vegetation that it healed Await blood cultures Qualifiers: Chronicity: unspecified Endocarditis type: infective Infective endocarditis organism: bacterial Qualified Code(s): I33.0 - Acute and subacute infective endocarditis (8) Acute encephalopathy: CT head no acute findings ABG no CO2 retention Improved. I suspect he may have some underlying dementia. He seems to have worse behaviors and confusion at night. Sedative medication discontinued (9) Urinary tract infection: Catheter was changed Urine growing gram-negative rods. Currently on meropenem. (10) COPD (chronic obstructive pulmonary disease): DuoNeb every 6 hours Budesonide twice daily BiPAP at night (11) DM2 (diabetes mellitus, type 2): Sliding scale insulin Consistent carb diet when diet initiated (12) Afib: Continue amiodarone Holding metoprolol secondary to hypotension. May Riyad if blood pressure improves Plan Multiple other medical problems as outlined in past medical history Allow natural Heparin subcutaneous for DVT prophylaxis Still requires ICU care as he is on pressors with still high risk for decompensation. Attestations 2 Medical Necessity Statement*: Needs continued hospital stay for treatment of sepsis with broad-spectrum antibiotics in this patient still requiring norepinephrine Critical Care Time: The high probability of a clinically significant, sudden or life threatening deterioration of the patient's [renal, neurologic, vascular, infectious disease, genitourinary] system(s) required my full and direct attention, intervention and personal management. The critical care time is as shown. This time is in addition to time spent performing any reported procedures but includes the following: [x] Data and vital sign review and interpretation [x] Patient assessment, examination and intervention [x] Documentation [x] Medication orders and management Critical Care Time (min): 31 Coding Level of Care Code Critical Care >/= 30 minutes Critical care time (in minutes): 31 The high probability of a clinically significant, sudden or life threatening deterioration, as referenced in this documentation, required my full and direct attention, intervention and personal management. The critical care time shown is in addition to time spent performing any reported separately billable procedures and includes the following: [x] Data and vital sign review and interpretation [x ] Patient assessment, examination and intervention [x] Medication orders and management [x] Patient/Family updates as able [x] Care Coordination and Documentation. Diagnoses Sepsis A41.9 Pneumonia J18.9 ESRD (end stage renal disease) on dialysis N18.6; Z99.2 Anemia D64.9 Hyperkalemia E87.5 Cellulitis L03.90 Endocarditis I33.0 Chronicity: unspecified Endocarditis type: infective Infective endocarditis organism: bacterial Acute encephalopathy G93.40 Urinary tract infection N39.0 COPD (chronic obstructive pulmonary disease) J44.9 DM2 (diabetes mellitus, type 2) E11.9 Afib I48.91
[2023-10-28] MEDS: sodium chloride 0.9% 100 mL Bag 50 ML IV (09:46)
[2023-10-28] MEDS: clopidogrel 75 mg Tablet PO (09:47)
[2023-10-28] MEDS: midodrine 5 mg TABLET 10 MG PO ×2 (09:47→20:55)
[2023-10-28] MEDS: pantoprazole 40 mg SDV IVP (09:47)
--- NOTE | 2023-10-28 14:04 | ANES.PREANE2 ---
Pre-Anesthetic Assessment Height/Weight: Height 1.83 m Weight 109.5 kg Temp Pulse Resp BP Pulse Ox O2 Del Method O2 Flow Rate 98.2 F 108 H 16 92/46 94 Nasal Cannula 4 10/28/23 10:05 10/28/23 10:05 10/28/23 10:05 10/28/23 10:05 10/28/23 10:00 10/28/23 08:05 10/28/23 08:05 FiO2 50 10/27/23 19:52 Operation Date: 10/28/23 13:45 Proposed Procedures p Left Guillotine BKA(Left) - Alexander Baxter DO Familial anesthetic complications: none Last intake: Intake Last Liquid Date 10/28/23 Last Liquid Time 09:00 Last Solid Date 10/26/23 Pulmonary Chronic Obstructive Pulmonary Disease CV/HEM Atrial Fibrillation, Anemia, Congestive Heart Failure and Peripheral Vascular Disease Infective endocarditis Echo CONCLUSIONS LV systolic function is normal with EF 55 to 60%. Left atrial dilation Large sized vegetation noted on the atrial aspect of posterior mitral valve leaflet. Small sized vegetation seen on atrial aspect of anterior mitral valve leaflet. Mild to moderate mitral regurgitation Large sized vegetation noted on the ventricular aspect of aortic valve. Mild aortic atherosclerotic plaque. Chronic Renal Failure Metabolic Diabetes Mellitus Anesthetic Plan ASA status: 4 Anesthesia: General Risk of > 500 ml blood loss (7ml/kg in children): No Medications/Allergies Home Medications Medication Instructions Recorded Confirmed Last Taken Type albuterol sulfate 2.5 mg/3 mL 2.5 mg inhalation Q4H PRN 10/03/22 10/27/23 Unknown History (0.083 %) solution for nebulization Shortness Of Breath amiodarone 200 mg tablet 200 mg PO QAM 10/03/22 10/27/23 10/08/23 History acetaminophen 325 mg tablet 650 mg PO Q6H PRN Pain 08/12/23 10/27/23 10/27/23 History bisacodyl 10 mg rectal suppository 10 mg NJ DAILY PRN Constipation 08/12/23 10/27/23 Unknown History hydrocodone 5 mg-acetaminophen 325 1 tab PO Q6H PRN Pain 08/12/23 10/27/23 10/08/23 History mg tablet insulin aspart U-100 100 unit/mL See Rx Instructions .Route .COMPLEX 08/12/23 10/27/23 10/08/23 History (3 mL) subcutaneous pen (Novolog FlexPen U-100 Insulin aspart) metoprolol tartrate 50 mg tablet See Rx Instructions .Route .COMPLEX 08/12/23 10/27/23 10/08/23 History nystatin 100,000 unit/gram topical 1 applic topical DAILY 08/12/23 10/27/23 10/07/23 History powder Saccharomyces boulardii 250 mg 250 mg PO BID 09/14/23 10/27/23 10/08/23 History capsule albuterol sulfate 90 mcg/actuation 2 puff inhalation Q6H PRN 09/14/23 10/27/23 Unknown History aerosol inhaler (Ventolin HFA) Shortness Of Breath bumetanide 1 mg tablet See Rx Instructions .Route .COMPLEX 09/14/23 10/27/23 Unknown History calcium acetate 667 mg tablet 667 mg PO DAILY 09/14/23 10/27/23 10/08/23 History clopidogrel 75 mg tablet 75 mg PO DAILY 09/14/23 10/27/23 10/08/23 History gabapentin 100 mg capsule 100 mg PO TID 09/14/23 10/27/23 10/08/23 History vancomycin 125 mg capsule 125 mg PO TID #60 caps 09/25/23 10/27/23 10/08/23 Rx insulin glargine 100 unit/mL (3 12 unit SUBCUT QPM 10/08/23 10/27/23 10/07/23 History mL) subcutaneous pen (Lantus Solostar U-100 Insulin) metoprolol tartrate 50 mg tablet See Rx Instructions .Route .COMPLEX 10/08/23 10/27/23 10/07/23 History morphine 15 mg tablet,extended 15 mg PO Q12H 10/27/23 10/27/23 Unknown History release nicotine 21 mg/24 hr daily 1 patch transdermal DAILY 10/27/23 10/27/23 Unknown History transdermal patch silver sulfadiazine 1 % topical 1 applic topical DAILY 10/27/23 10/27/23 Unknown History cream (Silvadene) Allergies Allergy/AdvReac Type Severity Reaction Status Date / Time amoxicillin [From Augmentin] Allergy Mild rash Verified 09/12/23 09:18 clavulanic acid Allergy Mild rash Verified 09/12/23 09:18 [From Augmentin] levofloxacin Allergy Mild rash Verified 09/12/23 09:18 Current Medications Generic Name Dose Route Start Last Admin Trade Name Freq PRN Reason Stop Dose Admin Albuterol/Ipratropium 3 ml 10/27/23 14:00 10/28/23 08:10 Ipratropium-Albuterol 3 Ml Neb INHALATION 3 ml Q6H.RESP JAIDEN Administration Amiodarone HCl 200 mg 10/28/23 06:00 10/28/23 06:10 Amiodarone 200 Mg Tablet PO 200 mg QAM JAIDEN Administration Budesonide 0.5 mg 10/27/23 20:00 10/28/23 08:10 Budesonide 0.5 Mg/2 Ml Neb INHALATION 0.5 mg BID JAIDEN Administration Clopidogrel Bisulfate 75 mg 10/28/23 09:00 10/28/23 09:47 Clopidogrel 75 Mg Tablet PO 75 mg DAILY JAIDEN Administration Heparin Sodium (Porcine) 5,000 unit 10/27/23 12:26 10/28/23 11:48 Heparin 5,000 Unit/Ml Inj 1 Ml SUBCUT 5,000 unit Q12H JAIDEN Administration Albumin Human 12.5 gm in 50 mls @ 60 mls/hr 10/27/23 11:36 10/27/23 21:15 Albumin IV Infused PRN PRN Infusion Hypotension and/or symptomatic Meropenem 500 mg/ Sodium 50 mls @ 100 mls/hr 10/27/23 16:30 10/28/23 14:02 Chloride IV Infused Q8H JAIDEN Infusion Protocol Norepinephrine Bitartrate 4 mg in 250 mls @ 0 mls/hr 10/27/23 16:30 10/28/23 06:19 Levophed IV 2 mcg/min .Q0M JAIDEN 7.5 mls/hr Titration Protocol Per Protocol Dexmedetomidine/Sodium Chloride 400 mcg in 100 mls @ 0 mls/hr 10/27/23 21:15 10/28/23 07:57 Precedex IV 0.2 mcg/kg/hr .Q0M JAIDEN 5.63 mls/hr Titration Protocol Per Protocol Insulin Human Lispro 0 unit 10/27/23 12:26 10/28/23 13:02 Insulin Lispro 100 Unit/1 Ml SUBCUT 2 unit WM&BEDTIME JAIDEN Administration Protocol Midodrine 10 mg 10/27/23 15:00 10/28/23 09:47 Midodrine 5 Mg Tablet PO 10 mg TID JAIDEN Administration Pantoprazole Sodium 40 mg 10/28/23 09:00 10/28/23 09:47 Pantoprazole 40 Mg Sdv IVP 40 mg DAILY JAIDEN Administration Additional Medication Information Current Medications Acetaminophen (Acetaminophen 325 Mg Tablet) 650 mg PO Q6H PRN PRN Reason: MILD PAIN Albuterol/Ipratropium (Ipratropium-Albuterol 3 Ml Neb) 3 ml INHALATION Q6H.RESP [facility] Last Admin: 10/28/23 02:18 Dose: Not Given Amiodarone HCl (Amiodarone 200 Mg Tablet) 200 mg PO QAM [facility] Last Admin: 10/28/23 06:10 Dose: 200 mg Budesonide (Budesonide 0.5 Mg/2 Ml Neb) 0.5 mg INHALATION BID [facility] Last Admin: 10/27/23 19:46 Dose: 0.5 mg Clopidogrel Bisulfate (Clopidogrel 75 Mg Tablet) 75 mg PO DAILY [facility] Glucagon (Glucagon 1 Mg/Ml Kit 1 Ml) 1 mg IM ONCE PRN; Protocol PRN Reason: Adult Acute Hypoglycemia Nursing Prot. Heparin Sodium (Porcine) (Heparin 5,000 Unit/Ml Inj 1 Ml) 5,000 unit SUBCUT Q12H [facility] Last Admin: 10/28/23 00:22 Dose: 5,000 unit Albumin Human (Albumin) 12.5 gm in 50 mls @ 60 mls/hr IV PRN PRN PRN Reason: Hypotension and/or symptomatic Last Infusion: 10/27/23 21:15 Dose: Infused Meropenem 500 mg/ Sodium (Chloride) 50 mls @ 100 mls/hr IV Q8H [facility]; Protocol Last Infusion: 10/28/23 03:03 Dose: Infused Dextrose (D5w) 500 mls @ 0 mls/hr IV ONCE PRN; Protocol PRN Reason: Adult Acute Hypoglycemia Prot Dextrose (D10w) 125 mls @ 750 mls/hr IV PRN PRN; Protocol PRN Reason: Adult Acute Hypoglycemia Nursing Protocol Dextrose (D10w) 250 mls @ 1,000 mls/hr IV PRN PRN; Protocol PRN Reason: Adult Acute Hypoglycemia Nursing Protocol Vancomycin/PEG/NADA/Lysine/Water (Vancocin) 1,250 mg in 250 mls @ 250 mls/hr IV Q36H [facility] Norepinephrine Bitartrate (Levophed) 4 mg in 250 mls @ 0 mls/hr IV .Q0M JAIDEN; Protocol Last Titration: 10/28/23 06:19 Dose: 2 mcg/min, 7.5 mls/hr Dexmedetomidine/Sodium Chloride (Precedex) 400 mcg in 100 mls @ 0 mls/hr IV .Q0M JAIDEN; Protocol Last Admin: 10/28/23 04:56 Dose: 0.4 mcg/kg/hr, 11.27 mls/hr Insulin Human Lispro (Insulin Lispro 100 Unit/1 Ml) 0 unit SUBCUT WM&BEDTIME JAIDEN; Protocol Last Admin: 10/27/23 21:59 Dose: Not Given Midodrine (Midodrine 5 Mg Tablet) 10 mg PO TID JAIDEN Last Admin: 10/27/23 21:59 Dose: Not Given Ondansetron HCl (Ondansetron 2 Mg/Ml Sdv 2 Ml) 4 mg IVP Q6H PRN PRN Reason: NAUSEA AND VOMITING Pantoprazole Sodium (Pantoprazole 40 Mg Sdv) 40 mg IVP DAILY [facility] Sodium Chloride (Sodium Chloride 0.9% 100 Ml Bag) 50 ml IV PRN PRN PRN Reason: Blood transfusion prime and flush Stop: 10/28/23 09:47 Sodium Chloride (Sodium Chloride 0.9% 100 Ml Bag) 50 ml IV PRN PRN PRN Reason: Blood transfusion prime and flush Stop: 10/29/23 07:09 [facility] Anesthesia Medical History Wound of left lower extremity Acute encephalopathy Anemia ESRD (end stage renal disease) on dialysis Cellulitis Afib Urinary tract infection Hyperkalemia DM2 (diabetes mellitus, type 2) COPD (chronic obstructive pulmonary disease) Stage III pressure ulcer Wound of lower extremity Critical limb ischemia of left lower extremity Elevated lactic acid level GI bleed Acute anemia Abscess or cellulitis of foot Acute lower limb ischemia Arterial occlusion Sepsis End stage kidney disease Congestive heart failure CHF exacerbation History of Clostridioides difficile colitis Bilateral pleural effusion Pulmonary arterial hypertension Acute respiratory distress syndrome Pressure ulcer of right heel, unstageable Shock Septic shock NSTEMI (non-ST elevated myocardial infarction) Aspiration pneumonia Pulmonary edema Acute hypoxic respiratory failure Hypoglycemia Altered mental status Edema Decubitus ulcer of heel, unstageable Enterococcus faecalis infection Endocarditis Hypotension Chronic anemia Sepsis Hyponatremia Pressure ulcer of left leg, stage 2 Pressure ulcer of right leg, stage 2 Wound of left foot Excoriation of groin Excoriation of abdomen Pressure ulcer of left buttock, stage 2 Pressure ulcer of right buttock, stage 2 Wound of right lower extremity Lymphedema Stasis dermatitis Pressure sore on buttocks Inability to perform activities of daily living Kidney dysfunction Fluid overload Hemodialysis status Temporary dialysis catheter placement Acute kidney failure Bradycardia Anasarca Bilateral lower leg cellulitis Metabolic acidosis DKA (diabetic ketoacidosis) Falls Generalized weakness FRANCISCO (acute kidney injury) CHF (congestive heart failure) Chronic respiratory failure with hypoxia Social History Smoking and tobacco/nicotine status: former use of tobacco/nicotine Data Anesthesia 10/28/23 04:29 10/28/23 04:29 Short CBC 10/27/23 10/28/23 Range/Units 08:17 04:29 WBC 6.03 5.22 (3.29-11.43) 10^3/uL Hgb 6.90 L 7.00 L (11.27-16.99) g/dL Hct 23.3 L 23.2 L (37-53) % MCV 97.5 96.3 (82-101) fl Plt Count 144 L 137 L (157-399) 10^3/cmm Neut % (Auto) 84.2 85.1 % Neut # (Auto) 5.07 4.44 (1.8-7.7) 10^3/uL BMP 10/27/23 10/28/23 08:17 04:29 Sodium 134 L 140 Potassium 5.7 H 4.3 Chloride 93 L 102 Carbon Dioxide 28 29 BUN 26 H 19 Creatinine 4.0 H 3.2 H Glucose 107 173 H Calcium 8.3 L 7.8 L Cardiac Enzymes 10/27/23 Range/Units 08:17 Creatine Kinase 450 H* (39-308) U/L Liver Function 10/27/23 10/28/23 Range/Units 08:17 04:29 Total Bilirubin 0.7 0.6 (0.15-1.2) mg/dL AST 18 15 (0-40) U/L ALT < 5 6 (0-41) U/L Alkaline Phosphatase 253 H 241 H (40-130) U/L Albumin 2.9 L 2.7 L (3.5-5.2) g/dL Urine 10/27/23 Range/Units 11:12 Urine Color Yellow (Yellow) Urine Appearance Cloudy A (CLEAR) Urine pH 5 (5-7) Ur Specific Sikes 1.020 (1.005-1.030) Urine Protein 3+ H (Negative) Urine Glucose (UA) Norm (Normal) Urine Ketones 1+ H (Negative) Urine Nitrate Positive H (Negative) Urine Bilirubin 1+ H (Negative) Ur Leukocyte Esterase 2+ H (Negative) Urine RBC 15-25 H (0-2) /hpf Urine WBC Too numerous to cnt H (0-5) /hpf Blood Bank 10/27/23 10:00 Blood Type A Positive Rho(D) Type Rh positive Antibody Screen Negative COVID Results 10/27/23 11:20 Coronavirus 229E (PCR) Not detected SARS-CoV-2 (PCR) Not detected ABG 10/27/23 10:28 Specimen Type Arterial Sample Site Radial, right ABG pH 7.39 ABG pCO2 51.3 H ABG pO2 61.8 L ABG HCO3 31.3 H ABG Base Excess 5.8 H O2 Delivery Device Nc O2 Liters/Min 4.0 Microbiology 10/27/23 11:12 Urine Culture - Preliminary Urine,Clean Catch Gram Negative Rods 10/27/23 08:29 Blood Culture - Preliminary Blood NEGATIVE TO DATE 10/27/23 08:17 Blood Culture - Preliminary Blood NEGATIVE TO DATE Cardiac Studies: Echocardiogram 10/08/23 Echocardiogram Limited Views 09/15/23 Transesophageal Echocardiogram 08/14/23
--- NOTE | 2023-10-28 14:21 | P.PN_ITS ---
Subjective 2 Subjective: Patient seen and examined. He is much more alert today. Oriented x 3. Vitals/I&O/Wt Last Vital Signs Temp 98.2 F 10/28/23 10:05 Pulse 108 H 10/28/23 10:05 Resp 16 10/28/23 10:05 BP 92/46 10/28/23 10:05 Pulse Ox 94 10/28/23 10:00 O2 Del Method Nasal Cannula 10/28/23 08:05 O2 Flow Rate 4 10/28/23 08:05 FiO2 50 10/27/23 19:52 10/27/23 10/28/23 10/28/23 22:59 06:59 14:59 Intake Total 1180.037 / 1480.037 223.126 / 1703.163 481.319 / 481.319 Output Total 1504 / 1504 50 / 1554 Balance -323.963 / -23.963 173.126 / 149.163 481.319 / 481.319 Weight last 48 hrs Weight 241 lb 6.499 oz Weight 241 lb 6.499 oz Weight 245 lb 13.047 oz Weight 248 lb 6 oz Physical Exam 2 Narrative: Extremities: Left lower extremity with gangrene at the foot and multiple leg wounds at different stages, nonpalpable DP and PT pulses with significant pitting edema Urinary Catheter Management: Fuentes: Cath Placed During This Visit: yes Reason for Continuing Indwelling Catheter: Accurate Measurement of Urinary Output in Critically Ill Patients Urinary Catheter Date of Insertion: 10/27/23 Urinary Catheter Time of Insertion: 09:00 Data 10/28/23 04:29 10/28/23 04:29 Micro: Microbiology 10/27/23 11:12 Urine Culture - Preliminary Urine,Clean Catch Gram Negative Rods 10/27/23 08:29 Blood Culture - Preliminary Blood NEGATIVE TO DATE 10/27/23 08:17 Blood Culture - Preliminary Blood NEGATIVE TO DATE A&P Assessment and plan (1) Atherosclerosis of left lower extremity with gangrene: Plan Left guillotine below-knee amputation Risks and benefits of the procedure, including but not limited to, bleeding, the need for further surgery to complete the below-knee amputation, possible need for an above-knee amputation in the future, further infection, scar, numbness, pain, phantom limb syndrome, , or explained to the patient and his . They are understanding and wished to proceed I did have a sid discussion with the patient about his options to proceed with amputation versus be made comfortable because at first he was not wanting an amputation. After discussion with his they are both in agreement to proceed with amputation Plans for completion left below-knee amputation within the next several days Attestations 2 Medical Necessity Statement*: per primary Coding Level of Care Code Acute Code for Chg Fwd Diagnoses Atherosclerosis of left lower extremity with gangrene I70.262
--- NOTE | 2023-10-28 15:22 | ANES.PROC ---
Anesthesia Procedures Procedure/Date: 10/28/23 Nerve Block ^: Nerve Block 1: Main Anesthesia: general anesthesia Time Out Performed: Yes Consent: requested by attending/covering physician, from patient, from other, risks and benefits reviewed and patient agrees to proceed Nerve block location: popliteal (L) Anesthesia monitors applied: pulse oximetry, EKG, BP cuff and oxygen Nerve block position: supine Anesthetic Used: ropivicaine 0.5% (30) and with decadron (4 mg) Ultrasound used to: recognize landmarks Nerve Stimulator Used?: No Interscalene/Femoral BLK: 4 stimuplex 21 g needle used for position and inplane approach, visualize local anesthetic spread and no vascular puncture identified Injection: neg aspiration of heme
--- NOTE | 2023-10-28 15:44 | P.OP_ITS ---
Operative Report Date of procedure: October 28, 2023 Pre-op diagnosis: Atherosclerosis of the left lower extremity with gangrene Post-op diagnosis: same Procedure done: Left guillotine below-knee amputation Implants: None Specimens removed/disposition: Left leg, ankle and foot guillotine below-knee amputation Surgeon: Alexander Baxter DO Anesthesia: General and Spinal Estimated blood loss (mL): 20 Complications: None apparent Brief History: This very pleasant 62-year-old gentleman who is currently septic in the ICU with atherosclerosis of the left lower extremity and gangrene. Guillotine left below-knee amputation is indicated with plans to follow-up with a completion left below-knee amputation once infection and edema have drained out and patient is stabilized. The risks and benefits of the procedure were explained to the patient and his . They are understand the risks and wished to proceed Procedure: Patient was wheeled operative room and intubated on the hospital bed in the supine position. He was then transferred to the OR table in the supine p osition. The left lower extremity was inspected prepped and draped in usual sterile fashion. Timeout was performed. All present were in agreement. A 10 blade scalpel was then used to make a circumferential incision around the leg about the gangrene. A pencil was then used to cut through the tibia and fibula. An amputation knife was then used to cut through muscle and other soft tissue. Bleeding vessels were controlled with hemostats and then ligated with 0 silk sutures. Further hemostasis was achieved with electrocautery. Specimen was passed off. Hemostasis was noted. A multilayer dressing consisting of Adaptic, 4 x 4's, 4 x 4's, Curlex, laparotomy towel and Coban was applied. Patient tolerated procedure well.
--- NOTE | 2023-10-28 16:12 | PC.NURSE ---
Received patient back from Surgery at 1557. Patient is lethargic, but easily awakened. HR: 106 afib, Bp: 115/47, SPO2: 93, Temp: 99.6. Patient placed on bipap upon return from surgery since right before surgery it was observed that patient was more lethargic than earlier and there were concerns for hypercapnea. NUrse called patient Crystal and alerted her to surgery completion and patient return to ICU.
--- NOTE | 2023-10-28 16:15 | ANE.PACU2 ---
Inpatient post-anesthesia follow up: Airway intact: Yes Vital signs: Temperature 97.9 F Pulse Rate 119 Respiratory Rate 13 Blood Pressure 125/60 Pulse Oximetry 99 Oxygen Delivery Me thod Nasal Cannula Oxygen Flow Rate 3 Fraction of Inspir ed Oxygen 50 Hydration adequate: Yes Nausea and vomiting: No Pain level: 1 Mental status: Baseline
[2023-10-28 16:51] LABS: Basophils % 0.2 %; Eosinophils # 0.1 10^3/uL (0.0-0.8); Eosinophils % 1.7 %; Hematocrit 26.6 % (37-53); Lymphocytes # 0.1 10^3/uL (0.8-4.8); Lymphocytes % 2.5 %; Mean Corpuscular HGB Conc 31.2 g/dL (30-55); Mean Corpuscular Hemoglobin 29.2 pg (27-33); Mean Corpuscular Volume 93.7 fl (82-101); Mean Platelet Volume 10.8 fL (7.4-10.4); Monocytes # 0.3 10^3/uL (0.2-0.9); Monocytes % 4.8 %; Neutrophils % 90.2 %; Nucleated Red Blood Cells % 0 %; Platelet Count 140 10^3/cmm (157-399); Red Blood Count 2.84 10^6/uL (3.85-5.65); Red Cell Distribution Width 18.2 % (12.1-15.1); White Blood Count 5.21 10^3/uL (3.29-11.43)
--- NOTE | 2023-10-28 18:26 | PC.NURSE ---
SHift SUmmary: Patient had left foot amputated, surgery was uneventful. Mental status improved since precedex was titrated off, but still altered. Currently lethargic and will fall asleep during conversation, but still easily awoken and will answer person, place, time, and situation questions correctly. Will occasionally forget what we are talking about mid conversation.
[2023-10-28 20:50] LABS: Glucose Point of Care 171 mg/dL (70-110)
[2023-10-28 20:50] LABS: Glucose Point of Care 117 mg/dL (70-110)
[2023-10-28 20:50] LABS: Glucose Point of Care 202 mg/dL (70-110)
[2023-10-28] MEDS: acetaminophen 325 mg Tablet 650 MG PO (20:55)
[2023-10-28] MEDS: vancomycin 1,250 MG/250 ML PIGGYBACK 250 MG IV (21:00)
--- NOTE | 2023-10-28 21:46 | PC.NURSE ---
Agitation/AMS: Pt began pulling BiPAP off as well as pulling at monitoring lines and central line- despite frequent redirection and staff presence. Precedex started, see MAR for titrations.
[2023-10-29] VITALS (76 sets, daily range): BP systolic 79–129; BP diastolic 40–75; PULSE 103–120; RESP 9–29; TEMP 36.6–37.2; O2SAT 90–100
[2023-10-29] MEDS: meropenem 500 MG in sodium chloride 0.9% (plus) 50 ML 100 MG IV ×3 (00:21→20:44)
[2023-10-29] MEDS: heparin 5,000 unit/mL INJ 1 mL 5000 UNIT SUBCUT ×2 (00:24→13:07)
[2023-10-29] MEDS: ipratropium-albuterol 3 mL Neb INHALATION ×4 (01:25→20:38)
[2023-10-29] MEDS: dexmedeTOMIDine 0.9 % NaCL 400 MCG/100 ML PREMIX 5.62999999999999989 MCG IV (02:35)
[2023-10-29 04:00] LABS: Lymphocytes # 0.1 10^3/uL (0.8-4.8); Lymphocytes % 4.8 %; Mean Corpuscular HGB Conc 30.4 g/dL (30-55); Mean Corpuscular Hemoglobin 28.9 pg (27-33); Mean Corpuscular Volume 95.2 fl (82-101); Mean Platelet Volume 10.7 fL (7.4-10.4); Monocytes # 0.1 10^3/uL (0.2-0.9); Monocytes % 4.1 %; Neutrophils # 2.62 10^3/uL (1.8-7.7); Neutrophils % 90.4 %; Nucleated Red Blood Cells % 0 %; Platelet Count 133 10^3/cmm (157-399); Red Blood Count 2.73 10^6/uL (3.85-5.65); Red Cell Distribution Width 17.7 % (12.1-15.1)
[2023-10-29 04:18] LABS: Alanine Aminotransferase 6 U/L (0-41); Albumin Level 2.7 g/dL (3.5-5.2); Alkaline Phosphatase 229 U/L (40-130); Anion Gap 21.1 (5-19); Aspartate Amino Transferase 13 U/L (0-40); Blood Urea Nitrogen 31 mg/dL (8-23); Calcium 8.1 mg/dL (8.5-10.5); Carbon Dioxide 25 mmol/L (22-29); Chloride 100 mmol/L (98-107); Globulin 3.3 g/dL (1.3-4.6); Glucose 184 mg/dL (65-115); Magnesium 2.1 mg/dL (1.7-2.3); Osmolality Calculated 303 mOsm/kg (285-295); Phosphorus 4.5 mg/dL (2.5-4.5); Potassium 5.1 mmol/L (3.5-5.1); Sodium 141 mmol/L (136-145); Total Bilirubin 0.5 mg/dL (0.15-1.2)
[2023-10-29 04:21] LABS: Creatinine Clr Calc Pharmacy 24.4878
[2023-10-29] MEDS: amiodarone 200 mg Tablet PO (05:06)
[2023-10-29] MEDS: insulin lispro 100 unit/1 mL SUBCUT ×2 (07:40→20:45)
[2023-10-29] MEDS: budesonide 0.5 mg/2 mL Neb INHALATION ×2 (07:40→20:38)
--- NOTE | 2023-10-29 08:04 | PC.NURSE ---
Dialysis in room at this time for HD treatment.
--- NOTE | 2023-10-29 08:19 | PC.HD ---
Prior to HD initiation, BP was noted to be soft. Per hypotension dialysis protocol, dialysate temperature lowered from 36.0C to 35.0C. Telenephrologist rounding; ok to reduce UF goal to 1L if necessary to maintain acceptable BPs. Monitor BP closely and restart pressors if necessary to support BP during HD.
[2023-10-29] MEDS: norepinephrine 4 MG/250 ML BAG 7.5 MG IV (08:34)
--- NOTE | 2023-10-29 08:40 | PC.NURSE ---
levophed started to support blood pressure during dialysis
--- NOTE | 2023-10-29 09:33 | PM.PN ---
Subjective Subjective: pt was seen and examined on dialysis this morning. he is POD #1 s/p Left guillontine BKA. he has palps, sob, pain, weak. he is between sinus tach and a fib Medications: Reviewed: Yes Medication Review Details: Current Medications Acetaminophen (Acetaminophen 325 Mg Tablet) 650 mg PO Q6H PRN PRN Reason: MILD PAIN Last Admin: 10/28/23 20:55 Dose: 650 mg Albuterol/Ipratropium (Ipratropium-Albuterol 3 Ml Neb) 3 ml INHALATION Q6H.RESP JAIDEN Last Admin: 10/29/23 07:42 Dose: 3 ml Amiodarone HCl (Amiodarone 200 Mg Tablet) 200 mg PO QAM JAIDEN Last Admin: 10/29/23 05:06 Dose: 200 mg Budesonide (Budesonide 0.5 Mg/2 Ml Neb) 0.5 mg INHALATION BID.RESPIRATORY JAIDEN Last Admin: 10/29/23 07:40 Dose: 0.5 mg Clopidogrel Bisulfate (Clopidogrel 75 Mg Tablet) 75 mg PO DAILY JAIDEN Last Admin: 10/28/23 09:47 Dose: 75 mg Epoetin Aleksander (Epoetin Aleksander 10,000 Unit/Ml Inj) 10,000 unit IVP DIALYSIS JAIDEN Last Admin: 10/28/23 17:02 Dose: Not Given Glucagon (Glucagon 1 Mg/Ml Kit 1 Ml) 1 mg IM ONCE PRN; Protocol PRN Reason: Adult Acute Hypoglycemia Nursing Prot. Heparin Sodium (Porcine) (Heparin 5,000 Unit/Ml Inj 1 Ml) 5,000 unit SUBCUT Q12H JAIDEN Last Admin: 10/29/23 00:24 Dose: 5,000 unit Albumin Human (Albumin) 12.5 gm in 50 mls @ 60 mls/hr IV PRN PRN PRN Reason: Hypotension and/or symptomatic Last Infusion: 10/27/23 21:15 Dose: Infused Meropenem 500 mg/ Sodium (Chloride) 50 mls @ 100 mls/hr IV Q8H JAIDEN; Protocol Last Admin: 10/29/23 07:40 Dose: 100 mls/hr Dextrose (D5w) 500 mls @ 0 mls/hr IV ONCE PRN; Protocol PRN Reason: Adult Acute Hypoglycemia Prot Dextrose (D10w) 125 mls @ 750 mls/hr IV PRN PRN; Protocol PRN Reason: Adult Acute Hypoglycemia Nursing Protocol Dextrose (D10w) 250 mls @ 1,000 mls/hr IV PRN PRN; Protocol PRN Reason: Adult Acute Hypoglycemia Nursing Protocol Vancomycin/PEG/NADA/Lysine/Water (Vancocin) 1,250 mg in 250 mls @ 250 mls/hr IV Q36H [facility] Last Infusion: 10/28/23 22:04 Dose: Infused Norepinephrine Bitartrate (Levophed) 4 mg in 250 mls @ 0 mls/hr IV .Q0M JAIDEN; Protocol Last Admin: 10/29/23 08:34 Dose: 2 mcg/min, 7.5 mls/hr Insulin Human Lispro (Insulin Lispro 100 Unit/1 Ml) 0 unit SUBCUT WM&BEDTIME [facility]; Protocol Last Admin: 10/29/23 07:40 Dose: 4 unit Midodrine (Midodrine 5 Mg Tablet) 10 mg PO TID [facility] Last Admin: 10/28/23 20:55 Dose: 10 mg Ondansetron HCl (Ondansetron 2 Mg/Ml Sdv 2 Ml) 4 mg IVP Q6H PRN PRN Reason: NAUSEA AND VOMITING Pantoprazole Sodium (Pantoprazole 40 Mg Sdv) 40 mg IVP DAILY [facility] Last Admin: 10/28/23 09:47 Dose: 40 mg Vitals/I&O/Wt Last Vital Signs Temp 97.9 F 10/29/23 08:09 Pulse 111 H 10/29/23 08:09 Resp 19 H 10/29/23 08:09 BP 97/52 10/29/23 08:09 Pulse Ox 99 10/29/23 08:00 O2 Del Method Nasal Cannula 10/29/23 08:00 O2 Flow Rate 3 10/29/23 08:00 FiO2 50 10/29/23 06:15 10/28/23 10/29/23 10/29/23 22:59 06:59 14:59 Intake Total 479.710 / 965.536 139.471 / 1105.007 Output Total 100 / 100 Balance 479.710 / 965.536 39.471 / 1005.007 Weight last 48 hrs Weight 107.275 kg Weight 109.5 kg Weight 109.5 kg Weight 111.5 kg Weight 112.661 kg Physical Exam Narrative: General exam -seen on dialysis, afebrile, VS noted tachycardic on pressers swollen in bed, nc 02 HEENT: Atraumatic and normocephalic. Neck is supple Right ACW permacath Heart- regular, tachycardic + s1, s2 Lungs crackles b/l Abdomen is soft NT, ND demonstrates Fuentes Extremities no cyanosis clubbing. Edema in RLE, LLE bandaged BKA rt foot some toes amputated Neuro: awake, alert, orient x 3 exam by RN- telehealth exam Urinary Catheter Management: Fuentes: Cath Placed During This Visit: yes Reason for Continuing Indwelling Catheter: Accurate Measurement of Urinary Output in Critically Ill Patients Urinary Catheter Date of Insertion: 10/27/23 Urinary Catheter Time of Insertion: 09:00 Data 10/29/23 03:50 10/29/23 03:50 Micro: Microbiology 10/27/23 11:12 Urine Culture - Final Urine,Clean Catch Enterobacter aerogenes 10/27/23 08:29 Blood Culture - Preliminary Blood NEGATIVE TO DATE 10/27/23 08:17 Blood Culture - Preliminary Blood NEGATIVE TO DATE A&P Assessment and plan (1) ESRD (end stage renal disease) on dialysis: 62 yr old man 1. ESRD- HD MWF. HD now 2. renal dose abx now w/ leukopenia enterobacter UTI on 10-27-23 3. DM control 4.PVD w/ occluded L SFA- per surgery and cardiology- appreciate Dr Hunt of vascular- s/p LLJennifer BKA on 10/28/23 5. anemia- hgb stable- s/p blood tx - CHUCK 6. paroxysmal a fib per medicine and cardiology 7. hypercapneic resp acidosis 8. replace vit d. no vit d analouge- pth 114 discussed w/ pt, RN, and HD RN pt consented to telehealth and hemodialysis. Plan see above Attestations Medical Necessity Statement*: LLE BKA, ESRD, a fib, hypotensive on pressers Time Spent in Patient Care: Greater than 35 minutes Coding Level of Care Code Acute Code for Chg Fwd Diagnoses ESRD (end stage renal disease) on dialysis N18.6; Z99.2
--- NOTE | 2023-10-29 09:44 | P.PN_ITS ---
Subjective 2 Subjective: Awakens easily. No complaints. Ask how long he will be in the hospital. He did have to go back on norepinephrine with dialysis today. Medications: Reviewed: Yes Vitals/I&O/Wt Last Vital Signs Temp 97.9 F 10/29/23 08:09 Pulse 111 H 10/29/23 08:09 Resp 19 H 10/29/23 08:09 BP 97/52 10/29/23 08:09 Pulse Ox 99 10/29/23 08:00 O2 Del Method Nasal Cannula 10/29/23 08:00 O2 Flow Rate 3 10/29/23 08:00 FiO2 50 10/29/23 06:15 10/28/23 10/29/23 10/29/23 22:59 06:59 14:59 Intake Total 479.710 / 965.536 139.471 / 1105.007 Output Total 100 / 100 Balance 479.710 / 965.536 39.471 / 1005.007 Weight last 48 hrs Weight 107.275 kg Weight 109.5 kg Weight 109.5 kg Weight 111.5 kg Weight 112.661 kg Physical Exam 2 Narrative: General exam is white male, more alert and oriented today Neck is supple no lymphadenopathy thyromegaly Cardiovascular regular rate and rhythm, no murmur Lungs clear Abdomen is soft demonstrates Fuentes Extremities left below the knee amputation noted Urinary Catheter Management: Fuentes: Cath Placed During This Visit: yes Reason for Continuing Indwelling Catheter: Accurate Measurement of Urinary Output in Critically Ill Patients Urinary Catheter Date of Insertion: 10/27/23 Urinary Catheter Time of Insertion: 09:00 Data 10/29/23 03:50 10/29/23 03:50 Micro: Microbiology 10/27/23 11:12 Urine Culture - Final Urine,Clean Catch Enterobacter aerogenes 10/27/23 08:29 Blood Culture - Preliminary Blood NEGATIVE TO DATE 10/27/23 08:17 Blood Culture - Preliminary Blood NEGATIVE TO DATE A&P Assessment and plan (1) Sepsis: Patient presents with evidence of sepsis He is not a candidate for fluid bolus secondary to his end-stage renal disease on hemodialysis, no evidence of fluid overload on exam. His lactate is normal. He has evidence of sepsis with fever, tachypnea, encephalopathy with a source of his left lower extremity ulcer. There is also a concern of possible UTI and/or pneumonia. I do not think he has an atypical infection such as mycoplasma causing his current symptomatology. Norepinephrine currently still on norepinephrine with dialysis. Try to taper off again today. Blood culture negative to date, urine growing gram-negative rods. He has grown Enterobacter, sensitive to meropenem He is currently on vancomycin and meropenem. (2) Pneumonia: Respiratory panel was negative Sputum culture, blood culture pending Oxygen as needed (3) ESRD (end stage renal disease) on dialysis: He is on hemodialysis, with a schedule of Friday He is hyperkalemic, and evidence of fluid overload consistent with acute diastolic heart failure. His hyperkalemia has now resolved with dialysis Last echocardiogram in September demonstrated preserved EF, and echodensities were possibly a healed vegetation on his aortic valve. Nephrology consultation appreciated. Receiving dialysis today (4) Anemia: Patient with significant anemia He received 1 unit packed red blood cells /. Received another unit /. No evidence of ongoing active bleeding. Protonix for GI prophylaxis. (5) Hyperkalemia: Resolved following dialysis (6) Cellulitis: Significant cellulitis left lower extremity with wound breakdown and previous culture showing multiple organisms Postoperative day #1 status post amputation of his left lower extremity below the knee Continue meropenem and vancomycin Await blood culture. Currently negative (7) Endocarditis: Past history of endocarditis Repeat echo done recently demonstrated what appeared to be an area of vegetation that it healed Await blood cultures. Currently negative Qualifiers: Chronicity: unspecified Endocarditis type: infective Infective endocarditis organism: bacterial Qualified Code(s): I33.0 - Acute and subacute infective endocarditis (8) Acute encephalopathy: CT head no acute findings ABG no CO2 retention Improved. I suspect he may have some underlying dementia. He seems to have worse behaviors and confusion at night. Sedative medication discontinued (9) Urinary tract infection: Catheter was changed Enterobacter has been identified. Currently on meropenem. (10) COPD (chronic obstructive pulmonary disease): DuoNeb every 6 hours Budesonide twice daily BiPAP at night (11) DM2 (diabetes mellitus, type 2): Sliding scale insulin Consistent carb diet when diet initiated (12) Afib: Continue amiodarone Holding metoprolol secondary to hypotension. May Riyad if blood pressure improves Plan Multiple other medical problems as outlined in past medical history Allow natural Heparin subcutaneous for DVT prophylaxis Still requires ICU care as he is on pressors with still high risk for decompensation. Attestations 2 Medical Necessity Statement*: Needs continued hospital stay secondary to UTI, cellulitis, hypotension still requiring pressors. Critical Care Time: The high probability of a clinically significant, sudden or life threatening deterioration of the patient's [renal, vascular, infectious] system(s) required my full and direct attention, intervention and personal management. The critical care time is as shown. This time is in addition to time spent performing any reported procedures but includes the following: [x] Data and vital sign review and interpretation [x] Patient assessment, examination and intervention [x] Documentation [x] Medication orders and management Critical Care Time (min): 33 Coding Level of Care Code Critical Care >/= 30 minutes Critical care time (in minutes): 33 The high probability of a clinically significant, sudden or life threatening deterioration, as referenced in this documentation, required my full and direct attention, intervention and personal management. The critical care time shown is in addition to time spent performing any reported separately billable procedures and includes the following: [x] Data and vital sign review and interpretation [x ] Patient assessment, examination and intervention [x] Medication orders and management [x] Patient/Family updates as able [x] Care Coordination and Documentation. Diagnoses Sepsis A41.9 Pneumonia J18.9 ESRD (end stage renal disease) on dialysis N18.6; Z99.2 Anemia D64.9 Hyperkalemia E87.5 Cellulitis L03.90 Endocarditis I33.0 Chronicity: unspecified Endocarditis type: infective Infective endocarditis organism: bacterial Acute encephalopathy G93.40 Urinary tract infection N39.0 COPD (chronic obstructive pulmonary disease) J44.9 DM2 (diabetes mellitus, type 2) E11.9 Afib I48.91
[2023-10-29] MEDS: midodrine 5 mg TABLET 10 MG PO ×3 (09:51→20:45)
[2023-10-29] MEDS: clopidogrel 75 mg Tablet PO (09:51)
[2023-10-29] MEDS: pantoprazole 40 mg SDV IVP (09:52)
[2023-10-29] MEDS: epoetin alfa 10,000 unit/mL INJ 10000 UNIT IVP (11:21)
[2023-10-29] MEDS: heparin, porcine 1,000 unit/mL INJ 10 mL 10000 UNIT INTRACATH (11:36)
[2023-10-29 12:30] LABS: Glucose Point of Care 134 mg/dL (70-110)
[2023-10-29 12:30] LABS: Glucose Point of Care 195 mg/dL (70-110)
[2023-10-29 18:00] LABS: Glucose Point of Care 138 mg/dL (70-110)
--- NOTE | 2023-10-29 18:06 | P.PN_ITS ---
Subjective 2 Subjective: Patient seen and examined. Pain controlled Vitals/I&O/Wt Last Vital Signs Temp 97.9 F 10/29/23 12:00 Pulse 118 H 10/29/23 16:00 Resp 19 H 10/29/23 16:00 BP 107/50 10/29/23 16:00 Pulse Ox 98 10/29/23 16:00 O2 Del Method Nasal Cannula 10/29/23 16:00 O2 Flow Rate 3 10/29/23 16:00 FiO2 50 10/29/23 06:15 10/29/23 10/29/23 10/29/23 06:59 14:59 22:59 Intake Total 139.471 / 1105.007 925 / 925 Output Total 100 / 100 1767 / 1767 Balance 39.471 / 1005.007 -842 / -842 Weight last 48 hrs Weight 238 lb 1.588 oz Weight 236 lb 8 oz Weight 241 lb 6.499 oz Weight 241 lb 6.499 oz Weight 245 lb 13.047 oz Physical Exam 2 Narrative: General: No acute distress, awake alert and oriented x 3 Dressings clean dry and intact Left lower extremity edema much improved Urinary Catheter Management: Fuentes: Cath Placed During This Visit: yes Reason for Continuing Indwelling Catheter: Accurate Measurement of Urinary Output in Critically Ill Patients Urinary Catheter Date of Insertion: 10/27/23 Urinary Catheter Time of Insertion: 09:00 Data 10/30/23 04:48 10/30/23 04:48 Micro: Microbiology 10/27/23 11:12 Urine Culture - Final Urine,Clean Catch Enterobacter aerogenes A&P Assessment and plan (1) Atherosclerosis of left lower extremity with gangrene: Plan Postoperative day #1 status post Left guillotine below-knee amputation Dressing to remain in place Plans for completion BKA on Friday Medical management per hospitalist Attestations 2 Medical Necessity Statement*: Per primary Coding Level of Care Code Acute Code for [facility] Fwd Diagnoses Atherosclerosis of left lower extremity with gangrene I70.262
[2023-10-29 20:30] LABS: Glucose Point of Care 156 mg/dL (70-110)
[2023-10-29] MEDS: HYDROcodone-acetaminophen 5-325 mg Tablet 1 TAB PO (20:46)
[2023-10-29] MEDS: LORazepam 2 mg/mL INJ 10 mL MDV 0.5 MG IVP (21:54)
--- NOTE | 2023-10-29 22:04 | PC.NURSE ---
Patient ripping off Bipap stating they cannot tolerate it. Education was provided about the effects of high CO2 concentration level building up in their system. They stated that they understood and that they are wiling to try anxiety medication to help with the anxiety of wearing a Bipap. Dr. Correa was contacted and he gave an order for 0.5 mg of ativan to be given.
[2023-10-29] MEDS: HYDROmorphone 1 mg/mL INJ 1 mL 0.200000000000000011 MG IVP (23:08)
[2023-10-29] MEDS: dexmedeTOMIDine 0.9 % NaCL 400 MCG/100 ML PREMIX 2.70000000000000018 MCG IV (23:32)
[2023-10-30] VITALS (106 sets, daily range): BP systolic 95–136; BP diastolic 42–81; PULSE 102–119; RESP 8–28; TEMP 36.4–37.3; O2SAT 75–100; BMI 32.3
[2023-10-30] MEDS: heparin 5,000 unit/mL INJ 1 mL 5000 UNIT SUBCUT ×2 (00:53→11:35)
[2023-10-30] MEDS: ipratropium-albuterol 3 mL Neb INHALATION ×4 (02:00→19:42)
--- NOTE | 2023-10-30 02:08 | PC.NURSE ---
Patient was unable to tolerate Bipap and continued to rip it off their face. This RN tried to verbally re direct the patient to keep their Bipap and and educated why it was important to maintain their CO2 levels at a therapeutic level. Also Precedex titrated per protocol for agitation but patient was still ripping off Bipap and saying they do not want it and trying to push this RN away. Dr. Correa was notified and ordered to pause precedix drip and to let him rest with his nasal cannula. Patient is resting with nasal cannula on and SPO2 of 92.
[2023-10-30] MEDS: HYDROmorphone 1 mg/mL INJ 1 mL 0.200000000000000011 MG IVP (02:29)
[2023-10-30 04:57] LABS: Basophils % 0.5 %; Hematocrit 28.7 % (37-53); Lymphocytes # 0.3 10^3/uL (0.8-4.8); Lymphocytes % 7.9 %; Mean Corpuscular HGB Conc 27.9 g/dL (30-55); Mean Corpuscular Hemoglobin 29.1 pg (27-33); Mean Corpuscular Volume 104.4 fl (82-101); Mean Platelet Volume 10.8 fL (7.4-10.4); Monocytes # 0.3 10^3/uL (0.2-0.9); Monocytes % 6.9 %; Neutrophils # 3.16 10^3/uL (1.8-7.7); Neutrophils % 83.6 %; Nucleated Red Blood Cells % 0 %; Platelet Count 121 10^3/cmm (157-399); Red Blood Count 2.75 10^6/uL (3.85-5.65); Red Cell Distribution Width 17.1 % (12.1-15.1); White Blood Count 3.78 10^3/uL (3.29-11.43)
[2023-10-30 05:14] LABS: Alanine Aminotransferase < 5 U/L (0-41); Albumin Level 2.6 g/dL (3.5-5.2); Alkaline Phosphatase 213 U/L (40-130); Anion Gap 17.1 (5-19); Aspartate Amino Transferase 12 U/L (0-40); Blood Urea Nitrogen 32 mg/dL (8-23); Calcium 8.1 mg/dL (8.5-10.5); Carbon Dioxide 25 mmol/L (22-29); Chloride 100 mmol/L (98-107); Creatinine Clr Calc Pharmacy 31.1667; Globulin 3.2 g/dL (1.3-4.6); Glomerular Filtration Rate 19.9 mL/min (90-130); Glucose 164 mg/dL (65-115); Osmolality Calculated 297 mOsm/kg (285-295); Phosphorus 2.9 mg/dL (2.5-4.5); Potassium 4.1 mmol/L (3.5-5.1); Sodium 138 mmol/L (136-145); Total Bilirubin 0.4 mg/dL (0.15-1.2); Total Protein 5.8 g/dL (6.6-8.7)
[2023-10-30 05:23] LABS: Slide Review Slide Review Perform
[2023-10-30] MEDS: amiodarone 200 mg Tablet PO (05:49)
--- NOTE | 2023-10-30 06:07 | P.PN_ITS ---
Subjective 2 Subjective: Patient seen and examined. Reports minimal pain to left lower extremity Vitals/I&O/Wt Last Vital Signs Temp 98.6 F 10/29/23 21:15 Pulse 117 H 10/30/23 05:28 Resp 21 H 10/30/23 04:15 BP 122/55 10/30/23 04:15 Pulse Ox 91 10/30/23 04:15 O2 Del Method Nasal Cannula 10/30/23 04:15 O2 Flow Rate 3 10/30/23 04:15 FiO2 50 10/29/23 06:15 10/29/23 10/29/23 10/30/23 14:59 22:59 06:59 Intake Total 925 / 925 290 / 1215 15.975 / 1230.975 Output Total 1767 / 1767 50 / 1817 Balance -842 / -842 290 / -552 -34.025 / -586.025 Weight last 48 hrs Weight 238 lb 7 oz Weight 238 lb 7 oz Weight 238 lb 1.588 oz Weight 236 lb 8 oz Physical Exam 2 Narrative: General: No acute distress, awake alert and oriented x 3 Dressings clean dry and intact Left lower extremity edema much improved Urinary Catheter Management: Fuentes: Cath Placed During This Visit: yes Reason for Continuing Indwelling Catheter: Accurate Measurement of Urinary Output in Critically Ill Patients Urinary Catheter Date of Insertion: 10/27/23 Urinary Catheter Time of Insertion: 09:00 Data 10/30/23 04:48 10/30/23 04:48 Micro: Microbiology 10/27/23 11:12 Urine Culture - Final Urine,Clean Catch Enterobacter aerogenes A&P Assessment and plan (1) Atherosclerosis of left lower extremity with gangrene: Plan Postoperative day #2 status post Left guillotine below-knee amputation Dressing to remain in place Plans for completion BKA on Friday Medical management per hospitalist Attestations 2 Medical Necessity Statement*: Per primary Coding Level of Care Code Acute Code for [employer] [facility] [employer] Fwd Diagnoses Atherosclerosis of left lower extremity with gangrene I70.262
--- NOTE | 2023-10-30 06:32 | PC.NURSE ---
Patient has been educated multiple times on why it is important to wear Bipap due to low oxygen levels. Patient is pushing away the Bipap and states that they do not want the Bipap and do not care if something happens to them.
--- NOTE | 2023-10-30 07:59 | XR_ITS ---
WS: [id number] XR chest 1V portable [id number] REASON FOR EXAM: fluid overload FINDINGS: Compared to the previous examination of 10/27/2023, the right internal jugular central venous line is b een removed. The right internal jugular dialysis catheter remains properly positioned. Significant resolving of interstitial lung opacities although mild to moderate abnormality persists. No new findings or other interval change. XR/XR chest 1V portable [id number] IMPRESSION: Improving abnormal chest.
[2023-10-30] MEDS: midodrine 5 mg TABLET 10 MG PO ×3 (08:06→20:48)
[2023-10-30] MEDS: HYDROcodone-acetaminophen 5-325 mg Tablet 1 TAB PO ×3 (08:06→15:51)
[2023-10-30] MEDS: clopidogrel 75 mg Tablet PO (08:07)
[2023-10-30] MEDS: metoprolol succinate ER (24 HR) 25 mg Tablet 12.5 MG PO (08:07)
[2023-10-30] MEDS: meropenem 500 MG in sodium chloride 0.9% (plus) 50 ML 100 MG IV ×2 (08:08→19:43)
[2023-10-30] MEDS: vancomycin 1,250 MG/250 ML PIGGYBACK 250 MG IV (08:10)
[2023-10-30] MEDS: pantoprazole 40 mg SDV IVP (08:23)
--- NOTE | 2023-10-30 08:24 | P.PN_ITS ---
Subjective 2 Subjective: remains sob. decreased pressers. no n/v/f/c/ross. + leg pain Medications: Reviewed: Yes Medication Review Details: Current Medications Acetaminophen (Acetaminophen 325 Mg Tablet) 650 mg PO Q6H PRN PRN Reason: MILD PAIN Last Admin: 10/28/23 20:55 Dose: 650 mg Hydrocodone Bitart/Acetaminophen (Hydrocodone-Acetaminophen 5-325 Mg Tablet) 1 tab PO Q4H PRN PRN Reason: MODERATE PAIN Last Admin: 10/30/23 08:06 Dose: 1 tab Albuterol/Ipratropium (Ipratropium-Albuterol 3 Ml Neb) 3 ml INHALATION Q6H.RESP JAIDEN Last Admin: 10/30/23 02:00 Dose: 3 ml Amiodarone HCl (Amiodarone 200 Mg Tablet) 200 mg PO QAM JAIDEN Last Admin: 10/30/23 05:49 Dose: 200 mg Budesonide (Budesonide 0.5 Mg/2 Ml Neb) 0.5 mg INHALATION BID.RESPIRATORY [facility] Last Admin: 10/29/23 20:38 Dose: 0.5 mg Clopidogrel Bisulfate (Clopidogrel 75 Mg Tablet) 75 mg PO DAILY JAIDEN Last Admin: 10/30/23 08:07 Dose: 75 mg Epoetin Aleksander (Epoetin Aleksander 10,000 Unit/Ml Inj) 10,000 unit IVP DIALYSIS [facility] Last Admin: 10/29/23 11:21 Dose: 10,000 unit Glucagon (Glucagon 1 Mg/Ml Kit 1 Ml) 1 mg IM ONCE PRN; Protocol PRN Reason: Adult Acute Hypoglycemia Nursing Prot. Heparin Sodium (Porcine) (Heparin 5,000 Unit/Ml Inj 1 Ml) 5,000 unit SUBCUT Q12H [facility] Last Admin: 10/30/23 00:53 Dose: 5,000 unit Albumin Human (Albumin) 12.5 gm in 50 mls @ 60 mls/hr IV PRN PRN PRN Reason: Hypotension and/or symptomatic Last Infusion: 10/27/23 21:15 Dose: Infused Dextrose (D5w) 500 mls @ 0 mls/hr IV ONCE PRN; Protocol PRN Reason: Adult Acute Hypoglycemia Prot Dextrose (D10w) 125 mls @ 750 mls/hr IV PRN PRN; Protocol PRN Reason: Adult Acute Hypoglycemia Nursing Protocol Dextrose (D10w) 250 mls @ 1,000 mls/hr IV PRN PRN; Protocol PRN Reason: Adult Acute Hypoglycemia Nursing Protocol Vancomycin/PEG/NADA/Lysine/Water (Vancocin) 1,250 mg in 250 mls @ 250 mls/hr IV Q36H [facility] Last Admin: 10/30/23 08:10 Dose: 250 mls/hr Norepinephrine Bitartrate (Levophed) 4 mg in 250 mls @ 0 mls/hr IV .Q0M [facility]EN; Protocol Last Titration: 10/29/23 13:14 Dose: 0 mcg/min, 0 mls/hr Meropenem 500 mg/ Sodium (Chloride) 50 mls @ 100 mls/hr IV Q12H [facility]; Protocol Last Admin: 10/30/23 08:08 Dose: 100 mls/hr Dexmedetomidine/Sodium Chloride (Precedex) 400 mcg in 100 mls @ 0 mls/hr IV .Q0M [facility]; Protocol Last Titration: 10/30/23 01:57 Dose: 0 mcg/kg/hr, 0 mls/hr Insulin Human Lispro (Insulin Lispro 100 Unit/1 Ml) 0 unit SUBCUT WM&BEDTIME [facility]; Protocol Last Admin: 10/30/23 08:24 Dose: Not Given Metoprolol Succinate (Metoprolol Succinate Er (24 Hr) 25 Mg Tablet) 12.5 mg PO DAILY [facility] Last Admin: 10/30/23 08:07 Dose: 12.5 mg Midodrine (Midodrine 5 Mg Tablet) 10 mg PO TID JAIDEN Last Admin: 10/30/23 08:06 Dose: 10 mg Ondansetron HCl (Ondansetron 2 Mg/Ml Sdv 2 Ml) 4 mg IVP Q6H PRN PRN Reason: NAUSEA AND VOMITING Pantoprazole Sodium (Pantoprazole 40 Mg Sdv) 40 mg IVP DAILY [facility] Last Admin: 10/30/23 08:23 Dose: 40 mg Vitals/I&O/Wt Last Vital Signs Temp 98.6 F 10/29/23 21:15 Pulse 117 H 10/30/23 05:28 Resp 21 H 10/30/23 04:15 BP 122/55 10/30/23 04:15 Pulse Ox 91 10/30/23 04:15 O2 Del Method Nasal Cannula 10/30/23 04:15 O2 Flow Rate 3 10/30/23 04:15 FiO2 50 10/29/23 06:15 10/29/23 10/30/23 10/30/23 22:59 06:59 14:59 Intake Total 290 / 1215 15.975 / 1230.975 50 / 50 Output Total 50 / 1817 Balance 290 / -552 -34.025 / -586.025 50 / 50 Weight last 48 hrs Weight 108.153 kg Weight 108.153 kg Weight 108 kg Weight 107.275 kg Physical Exam 2 Narrative: General exam -seen on dialysis, afebrile, VS noted tachycardic on pressers sob nc 02 HEENT: Atraumatic and normocephalic. Neck is supple Right ACW permacath Heart- regular, tachycardic + s1, s2 Lungs crackles b/l Abdomen is soft NT, ND demonstrates Fuentes Extremities no cyanosis clubbing. Edema in RLE, LLE bandaged BKA rt foot some toes amputated Neuro: awake, alert, orient x 3 exam by RN- telehealth exam Urinary Catheter Management: Fuentes: Cath Placed During This Visit: yes Reason for Continuing Indwelling Catheter: Accurate Measurement of Urinary Output in Critically Ill Patients Urinary Catheter Date of Insertion: 10/27/23 Urinary Catheter Time of Insertion: 09:00 Data 10/30/23 04:48 10/30/23 04:48 Micro: Microbiology 10/27/23 11:12 Urine Culture - Final Urine,Clean Catch Enterobacter aerogenes A&P Assessment and plan (1) ESRD (end stage renal disease) on dialysis: 62 yr old man 1. ESRD- HD MWF. s/p HD yesterday -check cxr. consider extra SUF today 2. renal dose abx now w/ leukopenia enterobacter UTI on 10-27-23 3. DM control 4.PVD w/ occluded L SFA- per surgery and cardiology- appreciate Dr Hunt of vascular- s/p LLE BKA on 10/28/23. to complete LLE BKA on Friday11/03/23 5. anemia- hgb stable- s/p blood tx - CHUCK 6. paroxysmal a fib per medicine and cardiology 7. hypercapneic resp acidosis 8. replace vit d. no vit d analouge- pth 114 discussed w/ pt, RN, and HD RN pt consented to telehealth and hemodialysis. Plan see above Attestations 2 Medical Necessity Statement*: esrd, pvd, resp distress Time Spent in Patient Care: Greater than 35 minutes Coding Level of Care Code Acute Code for [facility] Fwd Diagnoses ESRD (end stage renal disease) on dialysis N18.6; Z99.2
[2023-10-30 08:39] LABS: Glucose Point of Care 134 mg/dL (70-110)
[2023-10-30] MEDS: budesonide 0.5 mg/2 mL Neb INHALATION ×2 (09:08→19:42)
--- NOTE | 2023-10-30 09:57 | P.PN_ITS ---
Subjective 2 Subjective: Geronimo had some agitation last night. Precedex was placed briefly on the patient and then withdrawn. He reports he has some pain. Medications: Reviewed: Yes Vitals/I&O/Wt Last Vital Signs Temp 98.6 F 10/29/23 21:15 Pulse 117 H 10/30/23 09:25 Resp 18 10/30/23 09:09 BP 122/55 10/30/23 04:15 Pulse Ox 92 10/30/23 09:09 O2 Del Method Nasal Cannula 10/30/23 09:09 O2 Flow Rate 3 10/30/23 09:09 FiO2 50 10/29/23 06:15 10/29/23 10/30/23 10/30/23 22:59 06:59 14:59 Intake Total 290 / 1215 15.975 / 1230.975 50 / 50 Output Total 50 / 1817 Balance 290 / -552 -34.025 / -586.025 50 / 50 Weight last 48 hrs Weight 108.153 kg Weight 108.153 kg Weight 108 kg Weight 107.275 kg Physical Exam 2 Narrative: General exam is white male, more alert and oriented today Neck is supple no lymphadenopathy thyromegaly Cardiovascular regular rate and rhythm, no murmur Lungs clear Abdomen is soft demonstrates Fuentes Extremities left below the knee amputation noted Urinary Catheter Management: Fuentes: Cath Placed During This Visit: yes Reason for Continuing Indwelling Catheter: Accurate Measurement of Urinary Output in Critically Ill Patients Urinary Catheter Date of Insertion: 10/27/23 Urinary Catheter Time of Insertion: 09:00 Data 10/30/23 04:48 10/30/23 04:48 Micro: Microbiology 10/27/23 11:12 Urine Culture - Final Urine,Clean Catch Enterobacter aerogenes A&P Assessment and plan (1) Sepsis: Patient presents with evidence of sepsis He is not a candidate for fluid bolus secondary to his end-stage renal disease on hemodialysis, no evidence of fluid overload on exam. His lactate is normal. He has evidence of sepsis with fever, tachypnea, encephalopathy with a source of his left lower extremity ulcer. There is also a concern of possible UTI and/or pneumonia. I do not think he has an atypical infection such as mycoplasma causing his current symptomatology. Norepinephrine currently still on norepinephrine with dialysis. Try to taper off again today. Blood culture negative to date, urine growing gram-negative rods. He has grown Enterobacter, sensitive to meropenem He is currently on vancomycin and meropenem. Sepsis has resolved (2) Pneumonia: Respiratory panel was negative Blood culture negative to date Oxygen as needed (3) ESRD (end stage renal disease) on dialysis: He is on hemodialysis, with a schedule of Friday He is hyperkalemic, and evidence of fluid overload consistent with acute diastolic heart failure. His hyperkalemia has now resolved with dialysis Last echocardiogram in September demonstrated preserved EF, and echodensities were possibly a healed vegetation on his aortic valve. Nephrology consultation appreciated. Receiving dialysis regularly. Hyperkalemia has resolved. (4) Anemia: Patient with significant anemia He received 1 unit packed red blood cells 10/26. Received another unit 10/27. No evidence of ongoing active bleeding. Hemoglobin is currently stable Protonix for GI prophylaxis. (5) Hyperkalemia: Resolved following dialysis (6) Cellulitis: Significant cellulitis left lower extremity with wound breakdown and previous culture showing multiple organisms Postoperative day #3 status post amputation of his left lower extremity below the knee Continue meropenem and vancomycin Blood culture currently negative Repeat surgery likely Friday. Will continue vancomycin until then. (7) Endocarditis: Past history of endocarditis Repeat echo done recently demonstrated what appeared to be an area of vegetation that it healed Blood cultures negative to date Qualifiers: Chronicity: unspecified Endocarditis type: infective Infective endocarditis organism: bacterial Qualified Code(s): I33.0 - Acute and subacute infective endocarditis (8) Acute encephalopathy: CT head no acute findings ABG no CO2 retention Improved. I suspect he may have some underlying dementia. He seems to have worse behaviors and confusion at night. Sedative medication discontinued (9) Urinary tract infection: Catheter was changed Enterobacter has been identified. Currently on meropenem. (10) COPD (chronic obstructive pulmonary disease): DuoNeb every 6 hours Budesonide twice daily BiPAP at night (11) DM2 (diabetes mellitus, type 2): Sliding scale insulin Consistent carb diet when diet initiated (12) Afib: Continue amiodarone Have restarted metoprolol. XL, 12.5 mg daily. Advance dose as tolerated. Plan Multiple other medical problems as outlined in past medical history Some agitation. Will require sitter Allow natural Heparin subcutaneous for DVT prophylaxis May be able to transfer to second floor today but may require sitter. Will reevaluate this afternoon. Attestations 2 Medical Necessity Statement*: Requires continued hospital stay secondary to IV antibiotics for UTI, status post amputation with repeat surgery planned for Friday. Diagnoses Sepsis A41.9 Pneumonia J18.9 ESRD (end stage renal disease) on dialysis N18.6; Z99.2 Anemia D64.9 Hyperkalemia E87.5 Cellulitis L03.90 Endocarditis I33.0 Chronicity: unspecified Endocarditis type: infective Infective endocarditis organism: bacterial Acute encephalopathy G93.40 Urinary tract infection N39.0 COPD (chronic obstructive pulmonary disease) J44.9 DM2 (diabetes mellitus, type 2) E11.9 Afib I48.91 Time Spent (min) 24
[2023-10-30 12:22] LABS: Glucose Point of Care 125 mg/dL (70-110)
--- NOTE | 2023-10-30 13:31 | PC.RESP ---
Have had to go in multiple times and put o2 back on pt. Pt sat falls quickly to 83% on room air. Pt is orientated to place and self. He keeps saying sorry but keeps taking o2 off.
--- NOTE | 2023-10-30 13:46 | PC.HD ---
Heparin-free SUF orders for dialysis today. Patient is noticeably more confused than yesterday, asking the same questions repeatedly and argumentative.
[2023-10-30] MEDS: gabapentin 100 mg Capsule PO (16:49)
[2023-10-30] MEDS: HYDROmorphone 1 mg/mL INJ 1 mL 0.5 MG IVP (16:49)
--- NOTE | 2023-10-30 17:24 | PC.NURSE ---
Shift Summary: Patient received dialysis today. Removed 1L of fluid which was goal. Levophed was not needed today, even during dialysis. Patient is confused, he will correctly answer person, place, time, and situation questions, but will forget conversations we've had within 5 minutes, forgets what we are talking about mid conversation, and is unable to follow instructions due to forgetfulness. Gabapentin restarted and dilaudid started for pain, which has been a frequent complaint. Nurse has attempted to do range of motion with his left leg to prevent contractures, but have had little success due to lack of ability to follow directions. Leg was frequently seen in a contracted position today. total urine output was 20 mL.
[2023-10-30 17:29] LABS: Glucose Point of Care 154 mg/dL (70-110)
[2023-10-30] MEDS: OLANZapine 5 mg ODT PO (18:06)
[2023-10-30] MEDS: insulin lispro 100 unit/1 mL SUBCUT ×2 (18:07→20:48)
--- NOTE | 2023-10-30 18:38 | PC.NURSE ---
Near end of shift, patient has become increasingly agitated. REfuses to keep oxygen on, pulling off monitoring, attemptingto pull invasive lines. Nurse restarted precedex at low rate and alerted Dr clark. Received an order for 1:1 sitter, one time dose of zyprexa zydis, to to titrate off of the precedex.
[2023-10-30 20:44] LABS: Glucose Point of Care 144 mg/dL (70-110)
--- NOTE | 2023-10-30 23:06 | PC.NURSE ---
Patient refused Bipap. Education was provided about why the Bipap was necessary to prevent CO2 retention and the effects of high CO2 levels in the blood stream. Patient stated they understood. Precedex had to be stopped due to low blood pressures.
[2023-10-31] VITALS (41 sets, daily range): BP systolic 90–118; BP diastolic 41–58; PULSE 110–115; RESP 7–20; TEMP 36.4–36.9; O2SAT 72–97; BMI 31.7
[2023-10-31] MEDS: heparin 5,000 unit/mL INJ 1 mL 5000 UNIT SUBCUT ×2 (00:25→11:45)
[2023-10-31] MEDS: ipratropium-albuterol 3 mL Neb INHALATION ×4 (01:04→20:53)
[2023-10-31 04:58] LABS: Basophils % 0.6 %; Eosinophils # 0.1 10^3/uL (0.0-0.8); Eosinophils % 2.2 %; Hematocrit 29.1 % (37-53); Lymphocytes # 0.5 10^3/uL (0.8-4.8); Lymphocytes % 10.7 %; Mean Corpuscular HGB Conc 29.2 g/dL (30-55); Mean Corpuscular Hemoglobin 28.2 pg (27-33); Mean Corpuscular Volume 96.7 fl (82-101); Mean Platelet Volume 10.4 fL (7.4-10.4); Monocytes # 0.3 10^3/uL (0.2-0.9); Monocytes % 6.3 %; Neutrophils # 3.91 10^3/uL (1.8-7.7); Nucleated Red Blood Cells % 0 %; Platelet Count 135 10^3/cmm (157-399); Red Blood Count 3.01 10^6/uL (3.85-5.65); Red Cell Distribution Width 16.7 % (12.1-15.1); White Blood Count 4.95 10^3/uL (3.29-11.43)
[2023-10-31 05:23] LABS: Alanine Aminotransferase < 5 U/L (0-41); Albumin Level 2.8 g/dL (3.5-5.2); Alkaline Phosphatase 226 U/L (40-130); Anion Gap 17.8 (5-19); Aspartate Amino Transferase 9 U/L (0-40); Blood Urea Nitrogen 51 mg/dL (8-23); Calcium 8.5 mg/dL (8.5-10.5); Carbon Dioxide 27 mmol/L (22-29); Chloride 101 mmol/L (98-107); Creatinine Clr Calc Pharmacy 24.3252; Globulin 3.2 g/dL (1.3-4.6); Glucose 92 mg/dL (65-115); Magnesium 2.3 mg/dL (1.7-2.3); Osmolality Calculated 305 mOsm/kg (285-295); Phosphorus 2.7 mg/dL (2.5-4.5); Potassium 4.8 mmol/L (3.5-5.1); Sodium 141 mmol/L (136-145); Total Bilirubin 0.5 mg/dL (0.15-1.2)
[2023-10-31] MEDS: amiodarone 200 mg Tablet PO (06:06)
[2023-10-31] MEDS: budesonide 0.5 mg/2 mL Neb INHALATION ×2 (07:36→20:53)
--- NOTE | 2023-10-31 07:37 | ECG_ITS ---
[facility] Test Date: 2023-10-31 Pat Name: Geronimo Barahona Department: Room: [facility] Gender: Male Compliance Coordinator: : [id number] Requested By: Lenny Esquivel Order Number: [id number] Lesly MD: Alvaro Cobos M.D. Measurements Intervals Marilla Rate: 113 P: 0 AR: 0 QRS: 90 QRSD: 106 T: 25 QT: 357 QTc: 491 Interpretive Statements ATRIAL FLUTTER/TACHYCARDIA WITH RAPID VENTRICULAR RESPONSE LOW QRS VOLTAGE IN EXTREMITY LEADS [QRS DEFLECTION < 0.5 mV IN LIMB LEADS] MODERATE ST DEPRESSION [0.05+ mV ST DEPRESSION] Compared to ECG 10/27/2023 08:00:14 Low QRS voltage now present ST (T wave) deviation now present Sinus tachycardia no longer present Right-axis deviation no longer present Right bundle-branch block no longer present Electronically Signed On 10-31-2023 8:38:02 CDT by Alvaro Cobos M.D. [email or web address]
[2023-10-31 07:43] LABS: Glucose Point of Care 82 mg/dL (70-110)
[2023-10-31] MEDS: HYDROcodone-acetaminophen 5-325 mg Tablet 1 TAB PO ×2 (07:47→13:24)
--- NOTE | 2023-10-31 08:31 | PM.PN ---
Subjective Subjective: Does not voice any complaints to me this morning. Denies shortness of breath or chest pain. Precedex was briefly on yesterday evening. Zyprexa was effective yesterday afternoon for behaviors. He is not wearing his BiPAP at night. Medications: Reviewed: Yes Vitals/I&O/Wt Last Vital Signs Temp 97.9 F 10/31/23 08:00 Pulse 113 H 10/31/23 08:00 Resp 10 L 10/31/23 08:00 BP 116/55 10/31/23 08:00 Pulse Ox 97 10/31/23 08:00 O2 Del Method Nasal Cannula 10/31/23 08:00 O2 Flow Rate 4 10/31/23 08:00 FiO2 50 10/29/23 06:15 10/30/23 10/31/23 10/31/23 22:59 06:59 14:59 Intake Total 325.875 / 875.875 50 / 925.875 Output Total 1330 / 1330 Balance -1004.125 / -454.125 50 / -404.125 Weight last 48 hrs Weight 106.226 kg Weight 106.226 kg Weight 108 kg Weight 108.153 kg Weight 108.153 kg Weight 108 kg Physical Exam Narrative: General exam is white male, more alert and oriented today Neck is supple no lymphadenopathy thyromegaly Cardiovascular regular rate and rhythm, no murmur Lungs clear Abdomen is soft demonstrates Fuentes Extremities left below the knee amputation noted Urinary Catheter Management: Fuentes: Cath Placed During This Visit: yes Reason for Continuing Indwelling Catheter: Accurate Measurement of Urinary Output in Critically Ill Patients Urinary Catheter Date of Insertion: 10/27/23 Urinary Catheter Time of Insertion: 09:00 Data 10/31/23 04:44 10/31/23 04:44 A&P Assessment and plan (1) Sepsis: Patient presents with evidence of sepsis Blood culture negative to date, urine culture grew Enterobacter, sensitive to meropenem He is currently on vancomycin and meropenem. Sepsis has resolved Last echocardiogram in September demonstrated preserved EF, and echodensities were possibly a healed vegetation on his aortic valve. Blood cultures this hospitalization negative (2) Pneumonia: Respiratory panel was negative Blood culture negative to date Oxygen as needed (3) ESRD (end stage renal disease) on dialysis: He is on hemodialysis, with a schedule of [place] Thursday Saturday Nephrology consultation appreciated. Receiving dialysis regularly. Hyperkalemia has resolved. (4) Anemia: Patient with significant anemia He received 1 unit packed red blood cells 10/26. Received another unit /. No evidence of ongoing active bleeding. Hemoglobin is currently stable Protonix for GI prophylaxis. (5) Hyperkalemia: Resolved following dialysis (6) Cellulitis: Significant cellulitis left lower extremity with wound breakdown and previous culture showing multiple organisms Postoperative day #4 status post amputation of his left lower extremity below the knee Continue meropenem and vancomycin Blood culture currently negative Repeat surgery likely Friday. Will continue vancomycin until then. (7) Endocarditis: Past history of endocarditis Repeat echo done recently demonstrated what appeared to be an area of vegetation that it healed Blood cultures negative to date Qualifiers: Chronicity: unspecified Endocarditis type: infective Infective endocarditis organism: bacterial Qualified Code(s): I33.0 - Acute and subacute infective endocarditis (8) Acute encephalopathy: CT head no acute findings ABG no CO2 retention Improved. I suspect he may have some underlying dementia. He seems to have worse behaviors and confusion at night. Nursing facility reports his behavior would vary day-to-day there. Initially discontinued many of his sedative medications but low-dose Neurontin added back secondary to chronic pain. Dose adjusted for renal function. (9) Urinary tract infection: Catheter was changed Enterobacter has been identified. Currently on meropenem. (10) COPD (chronic obstructive pulmonary disease): DuoNeb every 6 hours Budesonide twice daily BiPAP at night (11) DM2 (diabetes mellitus, type 2): Sliding scale insulin Consistent carb diet when diet initiated (12) Afib: Continue amiodarone Increase metoprolol Plan Multiple other medical problems as outlined in past medical history Some agitation. Will require sitter Allow natural Heparin subcutaneous for DVT prophylaxis Attestations Medical Necessity Statement*: Needs continued hospital stay for definitive surgery of his left lower extremity/revision surgery. Needs continued IV antibiotics for UTI. Diagnoses Sepsis A41.9 Pneumonia J18.9 ESRD (end stage renal disease) on dialysis N18.6; Z99.2 Anemia D64.9 Hyperkalemia E87.5 Cellulitis L03.90 Endocarditis I33.0 Chronicity: unspecified Endocarditis type: infective Infective endocarditis organism: bacterial Acute encephalopathy G93.40 Urinary tract infection N39.0 COPD (chronic obstructive pulmonary disease) J44.9 DM2 (diabetes mellitus, type 2) E11.9 Afib I48.91 Time Spent (min) 31
--- NOTE | 2023-10-31 08:40 | P.PN_ITS ---
Subjective 2 Subjective: seen and examined. Breathing is improved. Patient remains on 3 L of nasal cannula oxygen. He remains in a flutter at approximate rate of 115. He is awake and responding appropriately. Medications: Reviewed: Yes Medication Review Details: Current Medications Acetaminophen (Acetaminophen 325 Mg Tablet) 650 mg PO Q6H PRN PRN Reason: MILD PAIN Last Admin: 10/28/23 20:55 Dose: 650 mg Hydrocodone Bitart/Acetaminophen (Hydrocodone-Acetaminophen 5-325 Mg Tablet) 1 tab PO Q4H PRN PRN Reason: MODERATE PAIN Last Admin: 10/31/23 07:47 Dose: 1 tab Albuterol/Ipratropium (Ipratropium-Albuterol 3 Ml Neb) 3 ml INHALATION Q6H.RESP JAIDEN Last Admin: 10/31/23 07:36 Dose: 3 ml Amiodarone HCl (Amiodarone 200 Mg Tablet) 200 mg PO QAM JAIDEN Last Admin: 10/31/23 06:06 Dose: 200 mg Budesonide (Budesonide 0.5 Mg/2 Ml Neb) 0.5 mg INHALATION BID.RESPIRATORY JAIDEN Last Admin: 10/31/23 07:36 Dose: 0.5 mg Clopidogrel Bisulfate (Clopidogrel 75 Mg Tablet) 75 mg PO DAILY JAIDEN Last Admin: 10/30/23 08:07 Dose: 75 mg Epoetin Aleksander (Epoetin Aleksander 10,000 Unit/Ml Inj) 10,000 unit IVP WEEKLY JAIDEN Gabapentin (Gabapentin 100 Mg Capsule) 100 mg PO BID JAIDEN Last Admin: 10/30/23 16:49 Dose: 100 mg Glucagon (Glucagon 1 Mg/Ml Kit 1 Ml) 1 mg IM ONCE PRN; Protocol PRN Reason: Adult Acute Hypoglycemia Nursing Prot. Heparin Sodium (Porcine) (Heparin 5,000 Unit/Ml Inj 1 Ml) 5,000 unit SUBCUT Q12H JAIDEN Last Admin: 10/31/23 00:25 Dose: 5,000 unit Hydromorphone HCl (Hydromorphone 1 Mg/Ml Inj 1 Ml) 0.5 mg IVP Q4H PRN PRN Reason: PAIN Last Admin: 10/30/23 16:49 Dose: 0.5 mg Albumin Human (Albumin) 12.5 gm in 50 mls @ 60 mls/hr IV PRN PRN PRN Reason: Hypotension and/or symptomatic Last Infusion: 10/27/23 21:15 Dose: Infused Dextrose (D5w) 500 mls @ 0 mls/hr IV ONCE PRN; Protocol PRN Reason: Adult Acute Hypoglycemia Prot Dextrose (D10w) 125 mls @ 750 mls/hr IV PRN PRN; Protocol PRN Reason: Adult Acute Hypoglycemia Nursing Protocol Dextrose (D10w) 250 mls @ 1,000 mls/hr IV PRN PRN; Protocol PRN Reason: Adult Acute Hypoglycemia Nursing Protocol Vancomycin/PEG/NADA/Lysine/Water (Vancocin) 1,250 mg in 250 mls @ 250 mls/hr IV Q36H JAIDEN Last Infusion: 10/30/23 10:42 Dose: Infused Norepinephrine Bitartrate (Levophed) 4 mg in 250 mls @ 0 mls/hr IV .Q0M JAIDEN; Protocol Last Titration: 10/29/23 13:14 Dose: 0 mcg/min, 0 mls/hr Meropenem 500 mg/ Sodium (Chloride) 50 mls @ 100 mls/hr IV Q12H JAIDEN; Protocol Last Infusion: 10/31/23 00:28 Dose: Infused Albumin Human (Albumin) 12.5 gm in 50 mls @ 60 mls/hr IV PRN PRN PRN Reason: Hypotension and/or symptomatic Insulin Human Lispro (Insulin Lispro 100 Unit/1 Ml) 0 unit SUBCUT WM&BEDTIME JAIDEN; Protocol Last Admin: 10/30/23 20:48 Dose: 2 unit Metoprolol Succinate (Metoprolol Succinate Er (24 Hr) 25 Mg Tablet) 25 mg PO DAILY [facility] Midodrine (Midodrine 5 Mg Tablet) 10 mg PO TID JAIDEN Last Admin: 10/30/23 20:48 Dose: 10 mg Olanzapine (Olanzapine 5 Mg Odt) 5 mg PO BEDTIME JAIDEN Ondansetron HCl (Ondansetron 2 Mg/Ml Sdv 2 Ml) 4 mg IVP Q6H PRN PRN Reason: NAUSEA AND VOMITING Pantoprazole Sodium (Pantoprazole 40 Mg Sdv) 40 mg IVP DAILY [facility] Last Admin: 10/30/23 08:23 Dose: 40 mg Vitals/I&O/Wt Last Vital Signs Temp 97.9 F 10/31/23 08:00 Pulse 113 H 10/31/23 08:00 Resp 10 L 10/31/23 08:00 BP 116/55 10/31/23 08:00 Pulse Ox 97 10/31/23 08:00 O2 Del Method Nasal Cannula 10/31/23 08:00 O2 Flow Rate 4 10/31/23 08:00 FiO2 50 10/29/23 06:15 10/30/23 10/31/23 10/31/23 22:59 06:59 14:59 Intake Total 325.875 / 875.875 50 / 925.875 Output Total 1330 / 1330 Balance -1004.125 / -454.125 50 / -404.125 Weight last 48 hrs Weight 106.226 kg Weight 106.226 kg Weight 108 kg Weight 108.153 kg Weight 108.153 kg Weight 108 kg Physical Exam 2 Narrative: General exam He is off of pressors. He is using nasal cannula oxygen 3 liters HEENT: Atraumatic and normocephalic. Neck is supple Right ACW permacath Heart- irregular, tachycardic + s1, s2 Lungs decreased crackles b/l Abdomen is soft NT, ND + Fuentes Extremities no cyanosis clubbing. Edema in RLE, LLE bandaged BKA rt foot some toes amputated Neuro: awake, alert, orient x 3 exam by RN- telehealth exam Urinary Catheter Management: Fuentes: Cath Placed During This Visit: yes Reason for Continuing Indwelling Catheter: Accurate Measurement of Urinary Output in Critically Ill Patients Urinary Catheter Date of Insertion: 10/27/23 Urinary Catheter Time of Insertion: 09:00 Data 10/31/23 04:44 10/31/23 04:44 A&P Assessment and plan (1) ESRD (end stage renal disease) on dialysis: 62 yr old man 1. ESRD- HD MWF. s/p HD 10/28 abd SUF 10/29- plan HD tomorrow 2. renal dose abx enterobacter UTI on --24 h/o endocarditis 3. DM control 4.PVD w/ occluded L SFA- per surgery and cardiology- appreciate Dr Hunt of vascular- s/p LLE BKA on 10/28/23. to complete LLE BKA on Friday11/03/23 5. anemia- hgb stable- s/p blood tx - [facility] 6. paroxysmal a fib per medicine and cardiology - now in a flutter 7. hypercapneic resp acidosis 8. replace vit d. no vit d analouge- pth 114 discussed w/ pt, RN, and HD RN pt consented to telehealth and hemodialysis. Plan see above Attestations 2 Medical Necessity Statement*: ESRD, cellulitis, PVD- for HD tomorrow and BKA revision next week Time Spent in Patient Care: Greater than 35 minutes Coding Level of Care Code Acute Code for [facility] Fwd Diagnoses ESRD (end stage renal disease) on dialysis N18.6; Z99.2
[2023-10-31] MEDS: midodrine 5 mg TABLET 10 MG PO ×3 (08:58→20:37)
[2023-10-31] MEDS: gabapentin 100 mg Capsule PO ×2 (09:00→17:28)
[2023-10-31] MEDS: pantoprazole 40 mg SDV IVP (09:00)
[2023-10-31] MEDS: clopidogrel 75 mg Tablet PO (09:00)
[2023-10-31] MEDS: metoprolol succinate ER (24 HR) 25 mg Tablet PO (09:00)
[2023-10-31] MEDS: meropenem 500 MG in sodium chloride 0.9% (plus) 50 ML 100 MG IV ×2 (09:01→20:37)
--- NOTE | 2023-10-31 11:26 | P.PN_ITS ---
Subjective 2 Subjective: This is a 62-year-old male who is postoperative day 3 status post left below the knee guillotine amputation for gangrene of the left lower extremity. Patient is doing well only complains of mild pain at the level of the left leg. Vitals/I&O/Wt Last Vital Signs Temp 97.6 F 10/31/23 10:00 Pulse 113 H 10/31/23 10:30 Resp 11 L 10/31/23 10:30 BP 103/49 10/31/23 10:00 Pulse Ox 95 10/31/23 10:30 O2 Del Method Nasal Cannula 10/31/23 10:00 O2 Flow Rate 3 10/31/23 10:00 FiO2 50 10/29/23 06:15 10/30/23 10/31/23 10/31/23 22:59 06:59 14:59 Intake Total 325.875 / 875.875 50 / 925.875 200 / 200 Output Total 1330 / 1330 Balance -1004.125 / -454.125 50 / -404.125 200 / 200 Weight last 48 hrs Weight 234 lb 3 oz Weight 234 lb 3 oz Weight 238 lb 1.588 oz Weight 238 lb 7 oz Weight 238 lb 7 oz Weight 238 lb 1.588 oz Physical Exam 2 Extremity: NARRATIVE EXTREMITY EXAM: Left lower extremity covered with dressing, no significant erythema proximal to the dressing area no significant pain with movement or touch. Urinary Catheter Management: Fuentes: Cath Placed During This Visit: yes Reason for Continuing Indwelling Catheter: Accurate Measurement of Urinary Output in Critically Ill Patients Urinary Catheter Date of Insertion: 10/27/23 Urinary Catheter Time of Insertion: 09:00 Data 10/31/23 04:44 10/31/23 04:44 A&P Assessment and plan (1) Atherosclerosis of left lower extremity with gangrene: Plan Patient is having good progression after left lower extremity below the knee amputation. He will go for a formalization on Friday by Dr. Baxter. In the interim we will continue the same dressing, patient can continue all other management per medical team. Attestations 2 Medical Necessity Statement*: Per medical team. Coding Level of Care Code Acute Code for [facility] Fwd Diagnoses Atherosclerosis of left lower extremity with gangrene I70.262
[2023-10-31] MEDS: HYDROmorphone 1 mg/mL INJ 1 mL 0.5 MG IVP (15:08)
[2023-10-31 17:03] LABS: Glucose Point of Care 102 mg/dL (70-110)
[2023-10-31 17:43] LABS: Glucose Point of Care 111 mg/dL (70-110)
[2023-10-31 20:12] LABS: Glucose Point of Care 104 mg/dL (70-110)
[2023-10-31] MEDS: OLANZapine 5 mg ODT PO (20:37)
[2023-10-31 20:58] LABS: Vancomycin Trough 25.8 ug/mL (10-15)
[2023-11-01] VITALS (19 sets, daily range): BP systolic 98–121; BP diastolic 47–62; PULSE 87–120; RESP 0–20; TEMP 36.4–37; O2SAT 90–98
[2023-11-01] MEDS: HYDROcodone-acetaminophen 5-325 mg Tablet 1 TAB PO ×3 (00:22→21:34)
[2023-11-01] MEDS: heparin 5,000 unit/mL INJ 1 mL 5000 UNIT SUBCUT ×3 (00:22→23:42)
[2023-11-01] MEDS: HYDROmorphone 1 mg/mL INJ 1 mL 0.5 MG IVP ×3 (01:42→22:14)
[2023-11-01] MEDS: ipratropium-albuterol 3 mL Neb INHALATION ×4 (02:27→19:34)
[2023-11-01 05:25] LABS: Basophils % 0.7 %; Eosinophils # 0.2 10^3/uL (0.0-0.8); Eosinophils % 3.9 %; Hematocrit 28.1 % (37-53); Lymphocytes # 0.5 10^3/uL (0.8-4.8); Lymphocytes % 8.7 %; Mean Corpuscular HGB Conc 28.8 g/dL (30-55); Mean Corpuscular Hemoglobin 28.5 pg (27-33); Mean Corpuscular Volume 98.9 fl (82-101); Mean Platelet Volume 11.8 fL (7.4-10.4); Monocytes # 0.3 10^3/uL (0.2-0.9); Monocytes % 5.3 %; Neutrophils # 4.69 10^3/uL (1.8-7.7); Neutrophils % 80.4 %; Nucleated Red Blood Cells % 0 %; Platelet Count 140 10^3/cmm (157-399); Red Blood Count 2.84 10^6/uL (3.85-5.65); Red Cell Distribution Width 16.5 % (12.1-15.1); White Blood Count 5.84 10^3/uL (3.29-11.43)
[2023-11-01 05:49] LABS: Alanine Aminotransferase < 5 U/L (0-41); Albumin Level 2.8 g/dL (3.5-5.2); Alkaline Phosphatase 235 U/L (40-130); Aspartate Amino Transferase 8 U/L (0-40); Blood Urea Nitrogen 63 mg/dL (8-23); Calcium 8.3 mg/dL (8.5-10.5); Carbon Dioxide 25 mmol/L (22-29); Chloride 103 mmol/L (98-107); Glomerular Filtration Rate 11.6 mL/min (90-130); Glucose 87 mg/dL (65-115); Magnesium 2.3 mg/dL (1.7-2.3); Osmolality Calculated 307 mOsm/kg (285-295); Phosphorus 2.6 mg/dL (2.5-4.5); Sodium 140 mmol/L (136-145); Total Bilirubin 0.4 mg/dL (0.15-1.2); Total Protein 5.8 g/dL (6.6-8.7)
[2023-11-01 05:53] LABS: Anion Gap 16.6 (5-19); Potassium 4.6 mmol/L (3.5-5.1)
[2023-11-01] MEDS: amiodarone 200 mg Tablet PO (06:02)
[2023-11-01 06:13] LABS: Glucose Point of Care 92 mg/dL (70-110)
[2023-11-01] MEDS: meropenem 500 MG in sodium chloride 0.9% (plus) 50 ML 100 MG IV ×2 (07:27→20:20)
[2023-11-01] MEDS: budesonide 0.5 mg/2 mL Neb INHALATION ×2 (08:28→19:34)
[2023-11-01 08:48] LABS: Alveolar-Arterial Oxygen Gradi 18.6 mmHg (5-10); Arterial Blood Gas Hematocrit 26.1 % (42-52); Blood Gas Allen Test Pos; Blood Gas Operator Identificat CAK; Blood Gas Sample Site Radial, left; Blood Gas Sample Type Arterial; Carboxyhemoglobin 1.6 %THgb (0.4-20.1); HCO3 ABG 29.4 mmol/L (22-26); HGB O2 Sat 85.5 % (95-100); Ionized Calcium Level - ABG 1.2 mmol/L (1.1-1.4); Methemoglobin 0.5 % (0.4-1.5); Oxygen Device NC; Oxygen Saturation ABG 87.4; PO2 ABG 54.6 mmHg (80.0-100.0); PO2 FiO2 Ratio Arterial Blood 0; Potassium Level - ABG 4.6 mmol/L (3.5-5.0); Total Hemoglobin 8.5 g/dL (14-18)
--- NOTE | 2023-11-01 08:55 | P.PN_ITS ---
Subjective 2 Subjective: Patient able to answer simple questions Saturating 90% on 4 L cannula Requested ABG which showed hypoxia with compensated pH Patient refused BiPAP overnight Vitals/I&O/Wt Last Vital Signs Temp 98.2 F 11/01/23 07:21 Pulse 98 11/01/23 08:38 Resp 18 11/01/23 08:00 BP 101/60 11/01/23 07:21 Pulse Ox 91 11/01/23 08:00 O2 Del Method Nasal Cannula 11/01/23 08:00 O2 Flow Rate 4 11/01/23 08:00 FiO2 50 10/29/23 06:15 10/31/23 11/01/23 11/01/23 22:59 06:59 14:59 Intake Total 543.15 / 943.15 50 / 50 Output Total 50 / 50 Balance 543.15 / 943.15 -50 / 893.15 50 / 50 Weight last 48 hrs Weight 107.5 kg Weight 106.226 kg Weight 106.226 kg Weight 108 kg Physical Exam 2 Narrative: Dialysis catheter in place Able to answer simple questions Drowsy On 4 L Left leg stump covered no active drainage On nasal cannula S1, S2 variable Morbidly obese Sarcopenia Right leg venous's dermatitis with lymphedema Urinary Catheter Management: Fuentes: Cath Placed During This Visit: yes Reason for Continuing Indwelling Catheter: Chronic Indwelling Urinary Catheter on Admission Urinary Catheter Date of Insertion: 10/27/23 Urinary Catheter Time of Insertion: 09:00 Data 11/01/23 05:04 11/01/23 05:04 Micro: Microbiology 10/27/23 08:29 Blood Culture - Final Blood NO GROWTH AFTER 5 DAYS 10/27/23 08:17 Blood Culture - Final Blood NO GROWTH AFTER 5 DAYS A&P Assessment and plan (1) Sepsis: Continue antibiotics,, no leukocytosis or fever Urine culture showing Enterobacter Tissue culture from 10/13 showing polymicrobial infection, Klebsiella ESBL, Pseudomonas and Enterococcus faecalis Continue Vanco and meropenem (2) Pneumonia: Respiratory panel was negative (3) ESRD (end stage renal disease) on dialysis: He is on hemodialysis, with a schedule of Friday Nephrology consultation appreciated. Receiving dialysis regularly. Hyperkalemia has resolved. (4) Anemia: Hemoglobin stable, currently on GI prophylaxis (5) Hyperkalemia: Resolved following dialysis (6) Cellulitis: Significant cellulitis left lower extremity with wound breakdown and previous culture showing multiple organisms status post amputation of his left lower extremity below the knee Continue meropenem and vancomycin Blood culture currently negative Repeat surgery likely Friday. Will continue vancomycin until then. (7) Endocarditis: No active signs Repeat echo which did not show vegetation Qualifiers: Chronicity: unspecified Endocarditis type: infective Infective endocarditis organism: bacterial Qualified Code(s): I33.0 - Acute and subacute infective endocarditis (8) Acute encephalopathy: CT head no acute findings ABG no CO2 retention Improved. I suspect he may have some underlying dementia. He seems to have worse behaviors and confusion at night. Nursing facility reports his behavior would vary day-to-day there. Initially discontinued many of his sedative medications but low-dose Neurontin added back secondary to chronic pain. Dose adjusted for renal function. (9) Urinary tract infection: Catheter was changed Enterobacter has been identified. Currently on meropenem. (10) COPD (chronic obstructive pulmonary disease): DuoNeb every 6 hours Budesonide twice daily BiPAP at night (11) DM2 (diabetes mellitus, type 2): Sliding scale insulin Consistent carb diet when diet initiated (12) Afib: Continue amiodarone Increase metoprolol Plan Allow natural Heparin subcutaneous for DVT prophylaxis Attestations 2 Medical Necessity Statement*: Continue medical management Diagnoses Sepsis A41.9 Pneumonia J18.9 ESRD (end stage renal disease) on dialysis N18.6; Z99.2 Anemia D64.9 Hyperkalemia E87.5 Cellulitis L03.90 Endocarditis I33.0 Chronicity: unspecified Endocarditis type: infective Infective endocarditis organism: bacterial Acute encephalopathy G93.40 Urinary tract infection N39.0 COPD (chronic obstructive pulmonary disease) J44.9 DM2 (diabetes mellitus, type 2) E11.9 Afib I48.91
--- NOTE | 2023-11-01 09:52 | PC.HD ---
Heparin 1000 units loading dose administered via HD catheter at 0933 per venue attendant's orders. O2 sats currently 98% on 4L NC.
--- NOTE | 2023-11-01 10:31 | P.PN_ITS ---
Subjective 2 Subjective: The patient was seen on dialysis. His blood pressure is low. He has decreased shortness of breath and remains on nasal cannula oxygen. He does not like to use BiPAP overnight. He still has leg pain. He has no nausea vomiting. He is very weak. Medications: Reviewed: Yes Medication Review Details: Current Medications Acetaminophen (Acetaminophen 325 Mg Tablet) 650 mg PO Q6H PRN PRN Reason: MILD PAIN Last Admin: 10/28/23 20:55 Dose: 650 mg Hydrocodone Bitart/Acetaminophen (Hydrocodone-Acetaminophen 5-325 Mg Tablet) 1 tab PO Q4H PRN PRN Reason: MODERATE PAIN Last Admin: 11/01/23 00:22 Dose: 1 tab Albuterol/Ipratropium (Ipratropium-Albuterol 3 Ml Neb) 3 ml INHALATION Q6H.RESP [facility] Last Admin: 11/01/23 08:28 Dose: 3 ml Amiodarone HCl (Amiodarone 200 Mg Tablet) 200 mg PO QAM [facility] Last Admin: 11/01/23 06:02 Dose: 200 mg Budesonide (Budesonide 0.5 Mg/2 Ml Neb) 0.5 mg INHALATION BID.RESPIRATORY [facility] Last Admin: 11/01/23 08:28 Dose: 0.5 mg Clopidogrel Bisulfate (Clopidogrel 75 Mg Tablet) 75 mg PO DAILY [facility] Last Admin: 10/31/23 09:00 Dose: 75 mg Epoetin Aleksander (Epoetin Aleksander 10,000 Unit/Ml Inj) 10,000 unit IVP WEEKLY [facility] Gabapentin (Gabapentin 100 Mg Capsule) 100 mg PO BID [facility] Last Admin: 10/31/23 17:28 Dose: 100 mg Glucagon (Glucagon 1 Mg/Ml Kit 1 Ml) 1 mg IM ONCE PRN; Protocol PRN Reason: Adult Acute Hypoglycemia Nursing Prot. Heparin Sodium (Porcine) (Heparin 5,000 Unit/Ml Inj 1 Ml) 5,000 unit SUBCUT Q12H [facility] Last Admin: 11/01/23 00:22 Dose: 5,000 unit Hydromorphone HCl (Hydromorphone 1 Mg/Ml Inj 1 Ml) 0.5 mg IVP Q4H PRN PRN Reason: PAIN Last Admin: 11/01/23 01:42 Dose: 0.5 mg Albumin Human (Albumin) 12.5 gm in 50 mls @ 60 mls/hr IV PRN PRN PRN Reason: Hypotension and/or symptomatic Last Infusion: 10/27/23 21:15 Dose: Infused Dextrose (D5w) 500 mls @ 0 mls/hr IV ONCE PRN; Protocol PRN Reason: Adult Acute Hypoglycemia Prot Dextrose (D10w) 125 mls @ 750 mls/hr IV PRN PRN; Protocol PRN Reason: Adult Acute Hypoglycemia Nursing Protocol Dextrose (D10w) 250 mls @ 1,000 mls/hr IV PRN PRN; Protocol PRN Reason: Adult Acute Hypoglycemia Nursing Protocol Norepinephrine Bitartrate (Levophed) 4 mg in 250 mls @ 0 mls/hr IV .Q0M [facility]; Protocol Last Titration: 10/31/23 17:30 Dose: Infused Meropenem 500 mg/ Sodium (Chloride) 50 mls @ 100 mls/hr IV Q12H [facility]; Protocol Last Infusion: 11/01/23 08:07 Dose: Infused Albumin Human (Albumin) 12.5 gm in 50 mls @ 60 mls/hr IV PRN PRN PRN Reason: Hypotension and/or symptomatic Albumin Human (Albumin) 12.5 gm in 50 mls @ 60 mls/hr IV PRN PRN PRN Reason: Hypotension and/or symptomatic Vancomycin HCl 1,000 mg/ (Sodium Chloride) 250 mls @ 250 mls/hr IV DIALYSIS [facility] Insulin Human Lispro (Insulin Lispro 100 Unit/1 Ml) 0 unit SUBCUT WM&BEDTIME [facility]; Protocol Last Admin: 11/01/23 07:22 Dose: Not Given Metoprolol Succinate (Metoprolol Succinate Er (24 Hr) 25 Mg Tablet) 25 mg PO DAILY [facility] Last Admin: 10/31/23 09:00 Dose: 25 mg Midodrine (Midodrine 5 Mg Tablet) 10 mg PO TID [facility] Last Admin: 10/31/23 20:37 Dose: 10 mg Olanzapine (Olanzapine 5 Mg Odt) 5 mg PO BEDTIME [facility] Last Admin: 10/31/23 20:37 Dose: 5 mg Ondansetron HCl (Ondansetron 2 Mg/Ml Sdv 2 Ml) 4 mg IVP Q6H PRN PRN Reason: NAUSEA AND VOMITING Pantoprazole Sodium (Pantoprazole 40 Mg Sdv) 40 mg IVP DAILY [facility] Last Admin: 10/31/23 09:00 Dose: 40 mg Vitals/I&O/Wt Last Vital Signs Temp 97.5 F L 11/01/23 09:51 Pulse 113 H 11/01/23 09:51 Resp 20 H 11/01/23 09:51 BP 102/55 11/01/23 09:51 Pulse Ox 91 11/01/23 08:00 O2 Del Method Nasal Cannula 11/01/23 08:00 O2 Flow Rate 4 11/01/23 08:00 FiO2 50 10/29/23 06:15 10/31/23 11/01/23 11/01/23 22:59 06:59 14:59 Intake Total 543.15 / 943.15 110 / 110 Output Total 50 / 50 Balance 543.15 / 943.15 -50 / 893.15 110 / 110 Weight last 48 hrs Weight 107.5 kg Weight 106.226 kg Weight 106.226 kg Weight 108 kg Physical Exam 2 Narrative: General exam He is off of pressors. He is using nasal cannula oxygen 3 liters sitting up in bed on dialysis HEENT: Atraumatic and normocephalic. Neck is supple Right ACW permacath Heart- irregular, tachycardic + s1, s2 Lungs- basalcrackles b/l Abdomen is soft NT, ND + Fuentes Extremities no cyanosis clubbing. Edema in RLE, LLE bandaged BKA rt foot some toes amputated Neuro: awake, alert, oriented x 3 exam by RN- telehealth exam Urinary Catheter Management: Fuentes: Cath Placed During This Visit: yes Reason for Continuing Indwelling Catheter: Chronic Indwelling Urinary Catheter on Admission Urinary Catheter Date of Insertion: 10/27/23 Urinary Catheter Time of Insertion: 09:00 Data 11/01/23 05:04 11/01/23 05:04 Micro: Microbiology 10/27/23 08:29 Blood Culture - Final Blood NO GROWTH AFTER 5 DAYS 10/27/23 08:17 Blood Culture - Final Blood NO GROWTH AFTER 5 DAYS A&P Assessment and plan (1) ESRD (end stage renal disease) on dialysis: 62 yr old man 1. ESRD- HD MWF. s/p HD 10/28 abd SUF 10/29- plan HD tomorrow 2. renal dose abx- check vanco level. keep trough under 19. hold dose today if level is 20 or higher enterobacter UTI on -3-24 h/o endocarditis 3. DM control 4.PVD w/ occluded L SFA- per surgery and cardiology- appreciate Dr Hunt of vascular- s/p LLE BKA on 10/28/23. to complete LLE BKA on Friday11/03/23 5. anemia- hgb stable- s/p blood tx - [facility] 6. paroxysmal a fib per medicine and cardiology - now in a flutter 7. hypercapneic resp acidosis 8. replace vit d. no vit d analouge- pth 114 -no phos binders discussed w/ pt, RN, and HD RN pt consented to telehealth and hemodialysis. seen w/ AV machine and exam by RN as telehealth visit Plan see above Attestations 2 Medical Necessity Statement*: ESRD, anemia, PVD, hypercapneic resp acidosis Time Spent in Patient Care: 16 - 35 minutes (>than 50% of time sp ent in counselling and/or direct pt care on unit) . Coding Level of Care Code Acute Code for Chg Fwd Diagnoses ESRD (end stage renal disease) on dialysis N18.6; Z99.2
[2023-11-01 11:51] LABS: Glucose Point of Care 99 mg/dL (70-110)
[2023-11-01] MEDS: clopidogrel 75 mg Tablet PO (13:31)
[2023-11-01] MEDS: metoprolol succinate ER (24 HR) 25 mg Tablet PO (13:32)
[2023-11-01] MEDS: pantoprazole 40 mg SDV IVP (13:32)
[2023-11-01] MEDS: midodrine 5 mg TABLET 10 MG PO ×2 (16:14→20:19)
[2023-11-01 17:00] LABS: Glucose Point of Care 116 mg/dL (70-110)
[2023-11-01] MEDS: gabapentin 100 mg Capsule PO (17:54)
[2023-11-01] MEDS: OLANZapine 5 mg ODT PO (20:19)
[2023-11-01 20:26] LABS: Glucose Point of Care 120 mg/dL (70-110)
[2023-11-01] MEDS: haloperidol inj 5 mg/mL INJ 1 mL 2 MG IVP (23:21)
[2023-11-02] VITALS (16 sets, daily range): BP systolic 84–128; BP diastolic 41–66; PULSE 93–124; RESP 16–20; TEMP 36.9–39.2; O2SAT 91–100
[2023-11-02] MEDS: ipratropium-albuterol 3 mL Neb INHALATION ×4 (01:36→20:11)
[2023-11-02] MEDS: haloperidol inj 5 mg/mL INJ 1 mL IVP (01:45)
[2023-11-02 05:21] LABS: Basophils % 0.5 %; Eosinophils # 0.2 10^3/uL (0.0-0.8); Eosinophils % 3.5 %; Hematocrit 27.9 % (37-53); Lymphocytes # 0.3 10^3/uL (0.8-4.8); Lymphocytes % 4.2 %; Mean Corpuscular HGB Conc 30.1 g/dL (30-55); Mean Corpuscular Volume 96.2 fl (82-101); Mean Platelet Volume 11.3 fL (7.4-10.4); Monocytes # 0.2 10^3/uL (0.2-0.9); Monocytes % 3.3 %; Neutrophils # 5.79 10^3/uL (1.8-7.7); Neutrophils % 87.1 %; Nucleated Red Blood Cells % 0.3 %; Platelet Count 134 10^3/cmm (157-399); White Blood Count 6.64 10^3/uL (3.29-11.43)
[2023-11-02 05:36] LABS: Vancomycin Random 18.5 ug/mL (20.0-40.0)
[2023-11-02 05:37] LABS: Alanine Aminotransferase < 5 U/L (0-41); Alkaline Phosphatase 269 U/L (40-130); Anion Gap 15.1 (5-19); Aspartate Amino Transferase 10 U/L (0-40); Blood Urea Nitrogen 36 mg/dL (8-23); Calcium 8.1 mg/dL (8.5-10.5); Carbon Dioxide 28 mmol/L (22-29); Chloride 102 mmol/L (98-107); Creatinine Clr Calc Pharmacy 30.1549; Globulin 2.5 g/dL (1.3-4.6); Glomerular Filtration Rate 19.2 mL/min (90-130); Glucose 118 mg/dL (65-115); Osmolality Calculated 301 mOsm/kg (285-295); Phosphorus 1.5 mg/dL (2.5-4.5); Potassium 4.1 mmol/L (3.5-5.1); Sodium 141 mmol/L (136-145); Total Bilirubin 0.7 mg/dL (0.15-1.2); Total Protein 5.5 g/dL (6.6-8.7)
[2023-11-02] MEDS: amiodarone 200 mg Tablet PO (05:44)
[2023-11-02 06:16] LABS: Glucose Point of Care 113 mg/dL (70-110)
--- NOTE | 2023-11-02 07:40 | P.PN_ITS ---
Subjective 2 Subjective: very SOB on NCO2. weak, less responsive and alert. has leg pains. weak Medications: Reviewed: Yes Medication Review Details: Current Medications Acetaminophen (Acetaminophen 325 Mg Tablet) 650 mg PO Q6H PRN PRN Reason: MILD PAIN Last Admin: 10/28/23 20:55 Dose: 650 mg Hydrocodone Bitart/Acetaminophen (Hydrocodone-Acetaminophen 5-325 Mg Tablet) 1 tab PO Q4H PRN PRN Reason: MODERATE PAIN Last Admin: 11/01/23 21:34 Dose: 1 tab Albuterol/Ipratropium (Ipratropium-Albuterol 3 Ml Neb) 3 ml INHALATION Q6H.RESP JAIDEN Last Admin: 11/02/23 01:36 Dose: 3 ml Amiodarone HCl (Amiodarone 200 Mg Tablet) 200 mg PO QAM [facility] Last Admin: 11/02/23 05:44 Dose: 200 mg Budesonide (Budesonide 0.5 Mg/2 Ml Neb) 0.5 mg INHALATION BID.RESPIRATORY [facility] Last Admin: 11/01/23 19:34 Dose: 0.5 mg Clopidogrel Bisulfate (Clopidogrel 75 Mg Tablet) 75 mg PO DAILY [facility] Last Admin: 11/01/23 13:31 Dose: 75 mg Epoetin Aleksander (Epoetin Aleksander 10,000 Unit/Ml Inj) 10,000 unit IVP WEEKLY [facility] Gabapentin (Gabapentin 100 Mg Capsule) 100 mg PO BID [facility] Last Admin: 11/01/23 17:54 Dose: 100 mg Glucagon (Glucagon 1 Mg/Ml Kit 1 Ml) 1 mg IM ONCE PRN; Protocol PRN Reason: Adult Acute Hypoglycemia Nursing Prot. Heparin Sodium (Porcine) (Heparin 5,000 Unit/Ml Inj 1 Ml) 5,000 unit SUBCUT Q12H [facility] Last Admin: 11/01/23 23:42 Dose: 5,000 unit Hydromorphone HCl (Hydromorphone 1 Mg/Ml Inj 1 Ml) 0.5 mg IVP Q4H PRN PRN Reason: PAIN Last Admin: 11/01/23 22:14 Dose: 0.5 mg Albumin Human (Albumin) 12.5 gm in 50 mls @ 60 mls/hr IV PRN PRN PRN Reason: Hypotension and/or symptomatic Last Infusion: 10/27/23 21:15 Dose: Infused Dextrose (D5w) 500 mls @ 0 mls/hr IV ONCE PRN; Protocol PRN Reason: Adult Acute Hypoglycemia Prot Dextrose (D10w) 125 mls @ 750 mls/hr IV PRN PRN; Protocol PRN Reason: Adult Acute Hypoglycemia Nursing Protocol Dextrose (D10w) 250 mls @ 1,000 mls/hr IV PRN PRN; Protocol PRN Reason: Adult Acute Hypoglycemia Nursing Protocol Meropenem 500 mg/ Sodium (Chloride) 50 mls @ 100 mls/hr IV Q12H [facility]; Protocol Last Infusion: 11/01/23 20:55 Dose: Infused Albumin Human (Albumin) 12.5 gm in 50 mls @ 60 mls/hr IV PRN PRN PRN Reason: Hypotension and/or symptomatic Albumin Human (Albumin) 12.5 gm in 50 mls @ 60 mls/hr IV PRN PRN PRN Reason: Hypotension and/or symptomatic Vancomycin HCl 1,000 mg/ (Sodium Chloride) 250 mls @ 250 mls/hr IV DIALYSIS [facility] Insulin Human Lispro (Insulin Lispro 100 Unit/1 Ml) 0 unit SUBCUT WM&BEDTIME [facility]; Protocol Last Admin: 11/02/23 06:55 Dose: Not Given Metoprolol Succinate (Metoprolol Succinate Er (24 Hr) 25 Mg Tablet) 25 mg PO DAILY [facility] Last Admin: 11/01/23 13:32 Dose: 25 mg Midodrine (Midodrine 5 Mg Tablet) 10 mg PO TID [facility] Last Admin: 11/01/23 20:19 Dose: 10 mg Olanzapine (Olanzapine 5 Mg Odt) 5 mg PO BEDTIME [facility] Last Admin: 11/01/23 20:19 Dose: 5 mg Ondansetron HCl (Ondansetron 2 Mg/Ml Sdv 2 Ml) 4 mg IVP Q6H PRN PRN Reason: NAUSEA AND VOMITING Pantoprazole Sodium (Pantoprazole 40 Mg Sdv) 40 mg IVP DAILY [facility] Last Admin: 11/01/23 13:32 Dose: 40 mg Vitals/I&O/Wt Last Vital Signs Temp 98.4 F 11/02/23 07:22 Pulse 116 H 11/02/23 07:22 Resp 18 11/02/23 07:22 BP 128/55 11/02/23 07:22 Pulse Ox 99 11/02/23 07:22 O2 Del Method Nasal Cannula 11/02/23 07:22 O2 Flow Rate 8 11/02/23 01:36 FiO2 50 10/29/23 06:15 11/01/23 11/02/23 11/02/23 22:59 06:59 14:59 Intake Total 250 / 360 60 / 420 Balance 250 / 360 60 / 420 Weight last 48 hrs Weight 107.5 kg Weight 107.5 kg Physical Exam 2 Narrative: General exam He is off of pressors. He is using nasal cannula oxygen 7-8 liters SOB, uncomfortable in bed HEENT: Atraumatic and normocephalic. Neck is supple Right ACW permacath Heart- irregular, tachycardic + s1, s2 Lungs- wheezes b/l Abdomen is soft NT, ND + Fuentes Extremities no cyanosis clubbing. Edema in RLE, LLE bandaged BKA rt foot some toes amputated Neuro: awake, lethargic, interactive. more confused and weak exam by RN- telehealth exam Urinary Catheter Management: Fuentes: Cath Placed During This Visit: yes Reason for Continuing Indwelling Catheter: Accurate Measurement of Urinary Output in Critically Ill Patients Urinary Catheter Date of Insertion: 10/27/23 Urinary Catheter Time of Insertion: 09:00 Data 11/02/23 04:41 11/02/23 04:41 Micro: Microbiology 10/27/23 08:29 Blood Culture - Final Blood NO GROWTH AFTER 5 DAYS 10/27/23 08:17 Blood Culture - Final Blood NO GROWTH AFTER 5 DAYS A&P Assessment and plan (1) ESRD (end stage renal disease) on dialysis: 62 yr old man 1. ESRD- HD MWF. s/p HD yesterday -very SOB. repeat CXR. attempt SUF today to see if helps 2. renal dose abx- check vanco level. keep trough under 19. hold dose today if level is 20 or higher enterobacter UTI on 6-3-24 h/o endocarditis 3. DM control 4.PVD w/ occluded L SFA- per surgery and cardiology- appreciate Dr Hunt of vascular- s/p LLE BKA on 10/28/23. to complete LLE BKA on Friday11/03/23 5. anemia- hgb stable- s/p blood tx - [facility] 6. paroxysmal a fib per medicine and cardiology - now in a flutter 7. hypercapneic resp acidosis 8. replace vit d. no vit d analouge- pth 114 -no phos binders discussed w/ pt, RN, and Dr Rodriguez pt consented to telehealth and hemodialysis. seen w/ AV machine and exam by RN as telehealth visit Plan see above Attestations 2 Medical Necessity Statement*: LLE Amputation, ESRD, hypoxemia Time Spent in Patient Care: 16 - 35 minutes (>than 50% of time sp ent in counselling and/or direct pt care on unit) . Coding Level of Care Code Acute Code for Chg Fwd Diagnoses ESRD (end stage renal disease) on dialysis N18.6; Z99.2
--- NOTE | 2023-11-02 07:46 | XRR_ITS ---
PROCEDURE INFORMATION: Exam: XR Chest Exam date and time: 11/02/2023 8:35 AM Age: 62 years old Clinical indication: Shortness of breath; Additional info: Short of breath TECHNIQUE: Imaging protocol: Radiologic exam of the chest. Views: 1 view. COMPARISON: CR XR chest 1V portable [id number] 10/30/2023 8:38 AM FINDINGS: Tubes, catheters and devices: Stable positioning of dual lumen central venous catheter. Lungs: Redemonstrated with mild worsening basilar airspace infiltration. Pleural spaces: Worsening bilateral pleural effusions. Heart/Mediastinum: Stable cardiomediastinal silhouette. Vasculature: Aortic arch calcified atherosclerotic disease. Bones/joints: Diffuse degenerative change of the visualized osseous structures. XR/XR chest 1V portable [id number] IMPRESSION: Interval worsening of bibasilar airspace disease with worsening bilateral pleural effusions. Remainder of the exam appears grossly stable.
[2023-11-02] MEDS: budesonide 0.5 mg/2 mL Neb INHALATION ×2 (08:07→20:11)
[2023-11-02] MEDS: clopidogrel 75 mg Tablet PO (08:42)
[2023-11-02] MEDS: metoprolol succinate ER (24 HR) 25 mg Tablet PO (08:43)
[2023-11-02] MEDS: gabapentin 100 mg Capsule PO (08:43)
[2023-11-02] MEDS: midodrine 5 mg TABLET 10 MG PO ×2 (08:43→15:45)
[2023-11-02] MEDS: pantoprazole 40 mg SDV IVP (08:48)
[2023-11-02 09:50] LABS: D Dimer 9.25 ug/mLFEU (0-0.59)
--- NOTE | 2023-11-02 09:51 | P.PN_ITS ---
Subjective 2 Subjective: Patient is stating that he is still worried but is short of breath Currently on 7 L X-ray showing pulm edema with pleural effusion Requested nephro for dialysis/ultrafiltration today Requested D-dimer which came back high at 9.2, Vitals/I&O/Wt Last Vital Signs Temp 98.4 F 11/02/23 07:22 Pulse 111 H 11/02/23 08:07 Resp 16 11/02/23 08:00 BP 128/55 11/02/23 07:22 Pulse Ox 98 11/02/23 08:00 O2 Del Method High Flow Nasal Cannula 11/02/23 08:00 O2 Flow Rate 9 11/02/23 08:00 FiO2 50 10/29/23 06:15 11/01/23 11/02/23 11/02/23 22:59 06:59 14:59 Intake Total 250 / 360 60 / 420 Balance 250 / 360 60 / 420 Weight last 48 hrs Weight 107.5 kg Weight 107.5 kg Physical Exam 2 Narrative: Patient is awake and alert GCS 15 Complaining of shortness of breath Currently on 7 L Left stump covered with dressing S1, S2 Nonfocal neuroexam A-fib RVR Urinary Catheter Management: Fuentes: Cath Placed During This Visit: yes Reason for Continuing Indwelling Catheter: Accurate Measurement of Urinary Output in Critically Ill Patients Urinary Catheter Date of Insertion: 10/27/23 Urinary Catheter Time of Insertion: 09:00 Data 11/02/23 04:41 11/02/23 04:41 Micro: Microbiology 10/27/23 08:29 Blood Culture - Final Blood NO GROWTH AFTER 5 DAYS 10/27/23 08:17 Blood Culture - Final Blood NO GROWTH AFTER 5 DAYS A&P Assessment and plan (1) Sepsis: Resolved Continue IV antibiotics until Friday then probable switch to oral antibiotics, tissue culture noted 10/13 status post amputation 10/27 Urine culture showing Enterobacter (2) Pneumonia: Respiratory panel was negative (3) ESRD (end stage renal disease) on dialysis: Patient is still showing signs of worsening pleural effusion with vascular congestion, will request for another session of dialysis today Will request CTA rule out PE (4) Anemia: Hemoglobin stable, currently on GI prophylaxis (5) Hyperkalemia: Resolved following dialysis (6) Cellulitis: Continue antibiotics (7) Endocarditis: No active signs Repeat echo which did not show vegetation Qualifiers: Chronicity: unspecified Endocarditis type: infective Infective endocarditis organism: bacterial Qualified Code(s): I33.0 - Acute and subacute infective endocarditis (8) Acute encephalopathy: Polypharmacy related versus dementia (9) Urinary tract infection: Catheter was changed Enterobacter has been identified. Currently on meropenem. (10) COPD (chronic obstructive pulmonary disease): DuoNeb every 6 hours Budesonide twice daily BiPAP at night (11) DM2 (diabetes mellitus, type 2): Sliding scale insulin Consistent carb diet when diet initiated (12) Afib: Continue amiodarone Increase metoprolol (13) Tachycardia: We have discontinued Eliquis in the past secondary to GI bleed requiring blood transfusion, patient required midodrine at some point for low blood pressure as well, he was only asked to continue taking Plavix Requesting EKG, he does have history of A-fib which she gets amiodarone Plan Allow natural Heparin subcutaneous for DVT prophylaxis Attestations 2 Medical Necessity Statement*: Continue medical management Diagnoses Sepsis A41.9 Pneumonia J18.9 ESRD (end stage renal disease) on dialysis N18.6; Z99.2 Anemia D64.9 Hyperkalemia E87.5 Cellulitis L03.90 Endocarditis I33.0 Chronicity: unspecified Endocarditis type: infective Infective endocarditis organism: bacterial Acute encephalopathy G93.40 Urinary tract infection N39.0 COPD (chronic obstructive pulmonary disease) J44.9 DM2 (diabetes mellitus, type 2) E11.9 Afib I48.91 Tachycardia R00.0
--- NOTE | 2023-11-02 09:52 | CTR_ITS ---
PROCEDURE INFORMATION: Exam: CTA Chest With Contrast Exam date and time: 11/02/2023 10:58 AM Age: 62 years old Clinical indication: Hyperventilation; Additional info: Hypoxia TECHNIQUE: Imaging protocol: Computed tomographic angiography of the chest with contrast. Exam focused on the arteries. 3D rendering (Not supervised by radiologist): MIP and/or 3D reconstructed images were created by the technologist. Radiation optimization: All CT scans at this facility use at least one of these dose optimization techniques: automated exposure control; mA and/or kV adjustment per patient size (includes targeted exams where dose is matched to clinical indication); or iterative reconstruction. Contrast material: OMNI 350; Contrast volume: 95 ml; Contrast route: INTRAVENOUS (IV); COMPARISON: CT angio chest PE protcl [id number] 09/20/2023 10:13 AM RADIATION DOSE METRICS: Total DLP (mGy-cm): 539.39 FINDINGS: Limitations: Study is suboptimal due to excessive motion artifact. Pulmonary arteries: Limited by suboptimal pulmonary artery opacification and by considerable streak artifact caused by the patient's arms at the sides. Several segmental and subsegmental pulmonary emboli are identified on the right. There may be additional segmental and subsegmental pulmonary emboli not obvious due to the limitations. There is no large central or saddle embolus. Pulmonary arteries remain enlarged consistent with pulmonary artery hypertension. Aorta: Unchanged aortic and systemic arterial calcification. Lungs: Bilateral atelectasis and probable pneumonitis appears minimally improved. Again, there could be underlying pulmonary or hilar malignancy. Again noted is narrowing and occlusion of bronchi. Pleural spaces: Unchanged large right pleural effusion and small left pleural effusion. Again, some left pleural fluid is loculated. Malignant effusions and pleural malignancy are possible. No pneumothorax. Heart: Mild cardiomegaly is unchanged. There is no obvious right heart strain. The right ventricular to left ventricular ratio is 0.95. Unchanged mitral annular calcification. Coronary arteries: Unchanged large amount of coronary artery calcification. Lymph nodes: Unchanged lymphadenopathy. Spleen: Unchanged possible mild splenomegaly. Bones/joints: Unchanged mild scoliosis. Unchanged mild and moderate multilevel spondylosis. Otherwise, grossly unremarkable, but limited by motion artifact. Soft tissues: Grossly unremarkable visualized body wall. Otherwise, unremarkable soft tissues. CT/CT angio chest PE protcl [id number] IMPRESSION: 1. Several acute right segmental and subsegmental pulmonary emboli. 2. Additional details as above.
[2023-11-02 10:59] LABS: Glucose Point of Care 151 mg/dL (70-110)
[2023-11-02] MEDS: iohexol 350 mg/mL 500 mL Btl (per mL) IV (11:02)
--- NOTE | 2023-11-02 11:16 | P.PN_ITS ---
Subjective 2 Subjective: No significant clinical changes, patient is scheduled for revision of BKA tomorrow. Still complains of some pain in the left lower extremity at the level of the stump Vitals/I&O/Wt Last Vital Signs Temp 98.4 F 11/02/23 07:22 Pulse 111 H 11/02/23 08:07 Resp 16 11/02/23 08:00 BP 128/55 11/02/23 07:22 Pulse Ox 98 11/02/23 08:00 O2 Del Method High Flow Nasal Cannula 11/02/23 08:00 O2 Flow Rate 7 11/02/23 08:00 FiO2 50 10/29/23 06:15 11/01/23 11/02/23 11/02/23 22:59 06:59 14:59 Intake Total 250 / 360 60 / 420 Balance 250 / 360 60 / 420 Weight last 48 hrs Weight 236 lb 15.951 oz Weight 236 lb 15.951 oz Physical Exam 2 Extremity: NARRATIVE EXTREMITY EXAM: Left lower extremity stump is covered with a dressing that is clean and dry, no evidence of cellulitis proximal to the dressing. There is minimal tenderness to mobilization of the stump Urinary Catheter Management: Fuentes: Cath Placed During This Visit: yes Reason for Continuing Indwelling Catheter: Accurate Measurement of Urinary Output in Critically Ill Patients Urinary Catheter Date of Insertion: 10/27/23 Urinary Catheter Time of Insertion: 09:00 Data 11/02/23 04:41 11/02/23 04:41 Micro: Microbiology 10/27/23 08:29 Blood Culture - Final Blood NO GROWTH AFTER 5 DAYS 10/27/23 08:17 Blood Culture - Final Blood NO GROWTH AFTER 5 DAYS A&P Assessment and plan (1) Wound of left lower extremity: Qualifiers: Encounter type: sequela Qualified Code(s): S81.802S - Unspecified open wound, left lower leg, sequela Plan Patient is a stable, will be taken to the OR tomorrow for revision of below the knee amputation. Patient should be n.p.o. after midnight, please obtain a full set of labs in the morning and call anticoagulation as needed. Attestations 2 Medical Necessity Statement*: Per medical team Coding Level of Care Code Acute Code for Chg Fwd Diagnoses Wound of left lower extremity, sequela S81.802S Encounter type: sequela
--- NOTE | 2023-11-02 11:44 | USR_ITS ---
PROCEDURE INFORMATION: Exam: US Duplex Right Lower Extremity Veins, Limited Exam date and time: 11/02/2023 1:15 PM Age: 62 years old Clinical indication: Screening exam; Dvt TECHNIQUE: Imaging protocol: Real-time duplex ultrasound of the right extremity with 2-D chang scale, color Doppler flow and spectral waveform analysis including responses to compression and other maneuvers (when performed) with image documentation. Limited exam was focused on the right lower extremity veins. COMPARISON: [place] [id number] 09/14/2023 7:04 PM FINDINGS: Right deep veins: There is nonocclusive thrombus throughout most of the right popliteal vein. There is occlusive thrombus throughout most of the right peroneal vein and throughout most of the right posterior tibial vein. Other deep veins of the right leg are normal. Superficial veins: Greater saphenous vein at the saphenofemoral junction is patent without thrombus. Soft tissues: Unremarkable. US/[place] [id number] IMPRESSION: DVT in the right popliteal vein, right peroneal vein, and right posterior tibial vein. Unknown age.
--- NOTE | 2023-11-02 12:20 | ECG_ITS ---
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 Measurements Intervals [place] Rate: 111 P: 0 CA: 0 QRS: 154 QRSD: 145 T: 8 QT: 356 QTc: 485 Interpretive Statements ATRIAL FIBRILLATION WITH RAPID VENTRICULAR RESPONSE RIGHT BUNDLE BRANCH BLOCK [120+ ms QRS DURATION, UPRIGHT V1, 40+ ms S IN I/aVL/V4/V5/V6] LEFT POSTERIOR FASCICULAR BLOCK [QRS AXIS > 109, INFERIOR Q] Compared to ECG 10/31/2023 07:37:57 Right bundle-branch block now present Left posterior fascicular block now present Atrial flutter no longer present ST (T wave) deviation no longer present Electronically Signed On 11-02-2023 20:42:58 CDT by Ramesh Ryan M.D. [id number]
[2023-11-02] MEDS: heparin drip 25,000 UNIT/500 ML PREMIX 31 UNIT IV (13:40)
--- NOTE | 2023-11-02 14:50 | PC.HD ---
Upon pre-SUF assessment, patient is noted to be much more somnolent than he was during/after yesterday's dialysis treatment. He is having tremors and appears quite confused, having difficulty following directions. O2 sats on 7L NC was 89%. BP is soft. Coarse lung sounds noted.
[2023-11-02] MEDS: albumin 12.5 GM/50 ML VIAL IV (15:03)
[2023-11-02] MEDS: ketorolac 30 mg/mL INJ IVP (16:15)
[2023-11-02 16:22] LABS: Glucose Point of Care 148 mg/dL (70-110)
[2023-11-02 17:55] LABS: ABG PH Result 7.47 (7.35-7.45); Alveolar-Arterial Oxygen Gradi 4.5 mmHg (5-10); Arterial Blood Gas Hematocrit 24.3 % (42-52); Base Excess ABG 4.1 mmol/L (-2.0-2.0); Blood Gas Allen Test Pos; Blood Gas Operator Identificat WALCI; Blood Gas Sample Site Radial, right; Blood Gas Sample Type Arterial; HCO3 ABG 28.1 mmol/L (22-26); HGB O2 Sat 93.2 % (95-100); Ionized Calcium Level - ABG 1.1 mmol/L (1.1-1.4); Methemoglobin 0.7 % (0.4-1.5); Oxygen Device NC; Oxygen Saturation ABG 95.8; PO2 ABG 66.4 mmHg (80.0-100.0); Potassium Level - ABG 3.9 mmol/L (3.5-5.0); Total Hemoglobin 7.9 g/dL (14-18)
[2023-11-02 18:01] LABS: Glucose Point of Care 129 mg/dL (70-110)
--- NOTE | 2023-11-02 18:40 | PC.NURSE ---
Heparin GTT: Information given to Princess Dos Santos LPN to stop Heparin gtt at midnight for possible surgery tomorrow.
[2023-11-02 19:32] LABS: Partial Thromboplastin Time 86.4 SECONDS (23.9-36.7)
[2023-11-02 19:56] LABS: Glucose Point of Care 109 mg/dL (70-110)
[2023-11-02] MEDS: heparin drip 25,000 UNIT/500 ML PREMIX 29 UNIT IV (21:09)
--- NOTE | 2023-11-02 21:17 | PC.NURSE ---
Ptt came back at 86.4; hep drip rate changed to 29/hour; verified with loc dejesus RN.
[2023-11-03] VITALS (12 sets, daily range): BP systolic 78–101; BP diastolic 32–52; PULSE 100–114; RESP 16–20; TEMP 36.4–36.9; O2SAT 90–99
[2023-11-03 02:58] LABS: Basophils % 0.5 %; Eosinophils # 0.1 10^3/uL (0.0-0.8); Eosinophils % 2.2 %; Hematocrit 24.2 % (37-53); Lymphocytes # 0.2 10^3/uL (0.8-4.8); Lymphocytes % 4.4 %; Mean Corpuscular HGB Conc 30.2 g/dL (30-55); Mean Corpuscular Hemoglobin 28.5 pg (27-33); Mean Corpuscular Volume 94.5 fl (82-101); Mean Platelet Volume 11.5 fL (7.4-10.4); Monocytes # 0.1 10^3/uL (0.2-0.9); Monocytes % 3.4 %; Neutrophils # 3.57 10^3/uL (1.8-7.7); Neutrophils % 87.8 %; Nucleated Red Blood Cells % 0 %; Platelet Count 106 10^3/cmm (157-399); Red Blood Count 2.56 10^6/uL (3.85-5.65); Red Cell Distribution Width 16.1 % (12.1-15.1); White Blood Count 4.07 10^3/uL (3.29-11.43)
[2023-11-03 03:05] LABS: Partial Thromboplastin Time 50.7 SECONDS (23.9-36.7)
[2023-11-03 03:18] LABS: Anion Gap 16.2 (5-19); Blood Urea Nitrogen 44 mg/dL (8-23); Calcium 7.7 mg/dL (8.5-10.5); Carbon Dioxide 27 mmol/L (22-29); Chloride 103 mmol/L (98-107); Creatinine Clr Calc Pharmacy 21.2657; Glomerular Filtration Rate 13.1 mL/min (90-130); Glucose 100 mg/dL (65-115); Osmolality Calculated 305 mOsm/kg (285-295); Potassium 4.2 mmol/L (3.5-5.1); Sodium 142 mmol/L (136-145)
[2023-11-03] MEDS: albumin 25 G/100 ML BAG 60 G IV (04:38)
[2023-11-03 06:29] LABS: Glucose Point of Care 113 mg/dL (70-110)
--- NOTE | 2023-11-03 07:54 | PM.PN ---
Subjective Subjective: seen and examined. is weak, hypotensive. less sob then yesterday. more awake. was diagnosed with a PE yesterday. fevers overnight Medications: Reviewed: Yes Medication Review Details: Current Medications Acetaminophen (Acetaminophen 325 Mg Tablet) 650 mg PO Q6H PRN PRN Reason: MILD PAIN Last Admin: 10/28/23 20:55 Dose: 650 mg Albuterol/Ipratropium (Ipratropium-Albuterol 3 Ml Neb) 3 ml INHALATION Q6H.RESP JAIDEN Last Admin: 11/03/23 03:14 Dose: Not Given Amiodarone HCl (Amiodarone 200 Mg Tablet) 200 mg PO QAM JAIDEN Last Admin: 11/03/23 06:13 Dose: Not Given Budesonide (Budesonide 0.5 Mg/2 Ml Neb) 0.5 mg INHALATION BID.RESPIRATORY JAIDEN Last Admin: 11/02/23 20:11 Dose: 0.5 mg Clopidogrel Bisulfate (Clopidogrel 75 Mg Tablet) 75 mg PO DAILY JAIDEN Last Admin: 11/02/23 08:42 Dose: 75 mg Epoetin Aleksander (Epoetin Aleksander 10,000 Unit/Ml Inj) 10,000 unit IVP WEEKLY JAIDEN Gabapentin (Gabapentin 100 Mg Capsule) 100 mg PO BID JAIDEN Last Admin: 11/02/23 17:30 Dose: Not Given Glucagon (Glucagon 1 Mg/Ml Kit 1 Ml) 1 mg IM ONCE PRN; Protocol PRN Reason: Adult Acute Hypoglycemia Nursing Prot. Heparin Sodium (Porcine) (Heparin 5,000 Unit/Ml Inj 1 Ml) 0 unit IV PRN PRN; Protocol PRN Reason: Heparin weight-base protocol Hydromorphone HCl (Hydromorphone 1 Mg/Ml Inj 1 Ml) 0.5 mg IVP Q4H PRN PRN Reason: PAIN Last Admin: 11/01/23 22:14 Dose: 0.5 mg Dextrose (D5w) 500 mls @ 0 mls/hr IV ONCE PRN; Protocol PRN Reason: Adult Acute Hypoglycemia Prot Dextrose (D10w) 125 mls @ 750 mls/hr IV PRN PRN; Protocol PRN Reason: Adult Acute Hypoglycemia Nursing Protocol Dextrose (D10w) 250 mls @ 1,000 mls/hr IV PRN PRN; Protocol PRN Reason: Adult Acute Hypoglycemia Nursing Protocol Meropenem 500 mg/ Sodium (Chloride) 50 mls @ 100 mls/hr IV Q12H JAIDEN; Protocol Last Admin: 11/02/23 21:16 Dose: Not Given Vancomycin HCl 1,000 mg/ (Sodium Chloride) 250 mls @ 250 mls/hr IV DIALYSIS [facility] Albumin Human (Albumin) 12.5 gm in 50 mls @ 60 mls/hr IV PRN PRN PRN Reason: Hypotension and/or symptomatic Last Infusion: 11/02/23 17:23 Dose: Infused Heparin Sodium/Sodium Chloride (Heparin Drip) 25,000 unit in 500 mls @ 0 mls/hr IV .Q0M JAIDEN; Protocol Last Titration: 11/03/23 00:12 Dose: 0 unit/kg/hr, 0 mls/hr Insulin Human Lispro (Insulin Lispro 100 Unit/1 Ml) 0 unit SUBCUT WM&BEDTIME [facility]; Protocol Last Admin: 11/02/23 20:59 Dose: Not Given Metoprolol Succinate (Metoprolol Succinate Er (24 Hr) 25 Mg Tablet) 25 mg PO DAILY [facility] Last Admin: 11/02/23 08:43 Dose: 25 mg Midodrine (Midodrine 5 Mg Tablet) 10 mg PO TID JAIDEN Last Admin: 11/02/23 21:16 Dose: Not Given Olanzapine (Olanzapine 5 Mg Odt) 5 mg PO BEDTIME JAIDEN Last Admin: 11/02/23 21:16 Dose: Not Given Ondansetron HCl (Ondansetron 2 Mg/Ml Sdv 2 Ml) 4 mg IVP Q6H PRN PRN Reason: NAUSEA AND VOMITING Pantoprazole Sodium (Pantoprazole 40 Mg Sdv) 40 mg IVP DAILY [facility] Last Admin: 11/02/23 08:48 Dose: 40 mg Vitals/I&O/Wt Last Vital Signs Temp 98.5 F 11/03/23 04:00 Pulse 108 H 11/03/23 04:00 Resp 16 11/02/23 23:45 BP 78/32 11/03/23 04:00 Pulse Ox 99 11/03/23 04:00 O2 Del Method Nasal Cannula 11/03/23 04:00 O2 Flow Rate 6 11/03/23 04:00 FiO2 50 10/29/23 06:15 11/02/23 11/03/23 11/03/23 22:59 06:59 14:59 Intake Total 631.983 / 631.983 188.45 / 820.433 Output Total 1850 / 1850 175 / 5 Balance -1218.017 / -1218.017 13.45 / -1204.567 Weight last 48 hrs Weight 103.873 kg Weight 103.419 kg Weight 103.7 kg Weight 107.5 kg Physical Exam Narrative: General exam He is off of pressors. He is using nasal cannula oxygen, he is febrile. bp low ill appearing in bed HEENT: Atraumatic and normocephalic. Neck is supple Right ACW permacath Heart- irregular, tachycardic + s1, s2 Lungs- wheezes b/l Abdomen is soft NT, ND + Fuentes Extremities no cyanosis clubbing. no Edema, LLE bandaged BKA rt foot some toes amputated Neuro: more awake and interactive. exam by RN- telehealth exam Urinary Catheter Management: Fuentes: Cath Placed During This Visit: yes Reason for Continuing Indwelling Catheter: Accurate Measurement of Urinary Output in Critically Ill Patients Urinary Catheter Date of Insertion: 10/27/23 Urinary Catheter Time of Insertion: 09:00 Data 11/03/23 02:23 11/03/23 02:23 Micro: Microbiology 11/02/23 19:04 Blood Culture - Preliminary Blood SPECIMEN COLLECTED 11/02/23 19:00 Blood Culture - Preliminary Blood SPECIMEN COLLECTED A&P Assessment and plan (1) ESRD (end stage renal disease) on dialysis: 62 yr old man 1. ESRD- HD MWF. s/p HD 10/31 and SUF 11/01 -will hold dialysis today as he is hypotensive and has a PE. Q of sepsis 2. renal dose abx- check vanco level. keep trough under 19. enterobacter UTI on -3-24 h/o endocarditis 3. DM control 4.PVD w/ occluded L SFA- per surgery and cardiology- appreciate Dr Hunt of vascular- s/p LLE BKA on 10/28/23. to complete LLE BKA today 5. anemia- hgb stable- s/p blood tx - stop CHUCK w/ PE as CHUCK is a hypercoaguable agent 6. paroxysmal a fib per medicine and cardiology - now in a flutter 7. hypercapneic resp acidosis 8. replace vit d. no vit d analouge- pth 114 9. replace phos as needed discussed w/ pt, RN seen w/ AV machine and exam by RN as telehealth visit Plan see above Attestations Medical Necessity Statement*: sepsis, hypotensive, LLE wound, ESRD Time Spent in Patient Care: 16 - 35 minutes (>than 50% of time spent in counselling and/or direct pt care on unit). Coding Level of Care Code Acute Code for Chg Fwd Diagnoses ESRD (end stage renal disease) on dialysis N18.6; Z99.2
[2023-11-03] MEDS: budesonide 0.5 mg/2 mL Neb INHALATION ×2 (08:16→20:19)
[2023-11-03] MEDS: ipratropium-albuterol 3 mL Neb INHALATION ×3 (08:16→20:19)
[2023-11-03] MEDS: meropenem 500 MG in sodium chloride 0.9% (plus) 50 ML 100 MG IV ×2 (08:31→20:38)
[2023-11-03] MEDS: pantoprazole 40 mg SDV IVP (09:48)
[2023-11-03] MEDS: albumin 12.5 GM/50 ML VIAL IV (10:46)
--- NOTE | 2023-11-03 11:03 | P.PN_ITS ---
Subjective 2 Subjective: Patient has been spiking fever since diagnosis of PE and DVT, he is on broad- spectrum antibiotics, urine culture is sensitive to antibiotics we are using We have repeated blood cultures on Friday No fever this morning, no leukocytosis Patient is drowsy able to answer simple questions, at the bedside Hemoglobin 7.3 Blood pressure is soft will be 1 bag of albumin Procedure has been postponed we will continue heparin until midnight Vitals/I&O/Wt Last Vital Signs Temp 97.6 F 11/03/23 08:00 Pulse 100 11/03/23 08:22 Resp 18 11/03/23 08:00 BP 83/45 11/03/23 08:00 Pulse Ox 98 11/03/23 08:00 O2 Del Method High Flow Nasal Cannula 11/03/23 08:00 O2 Flow Rate 5 11/03/23 08:00 FiO2 50 10/29/23 06:15 11/02/23 11/03/23 11/03/23 22:59 06:59 14:59 Intake Total 631.983 / 631.983 188.45 / 820.433 54.35 / 54.35 Output Total 1850 / 1850 175 / 5 Balance -1218.017 / -1218.017 13.45 / -1204.567 54.35 / 54.35 Weight last 48 hrs Weight 103.873 kg Weight 103.419 kg Weight 103.7 kg Weight 107.5 kg Physical Exam 2 Narrative: Patient is drowsy Able to answer simple questions No shortness of breath today Currently on 5 L nasal cannula Saturating 91% Heart rate fluctuating 100-1 10 sinus rhythm with A-fib Left stump covered with dressing no active drainage Right leg lymphedema venous stasis dermatitis Multiple stage I to stage II pressure ulcers on buttocks and sacral area Urinary Catheter Management: Fuentes: Cath Placed During This Visit: yes Reason for Continuing Indwelling Catheter: Accurate Measurement of Urinary Output in Critically Ill Patients Urinary Catheter Date of Insertion: 10/27/23 Urinary Catheter Time of Insertion: 09:00 Data 11/03/23 02:23 11/03/23 02:23 Micro: Microbiology 11/02/23 19:04 Blood Culture - Preliminary Blood SPECIMEN COLLECTED 11/02/23 19:00 Blood Culture - Preliminary Blood SPECIMEN COLLECTED A&P Assessment and plan (1) Sacral wound: (2) Sepsis: Patient started spiking fever again 11/01 Repeat blood cultures Chest x-ray showed vascular congestion with persistent infiltrate Continue broad-spectrum antibiotics Urine culture sensitive to imipenem Blood cultures negative to date No leukocytosis Low blood pressure will give 1 bag of albumin today (3) Pneumonia: Respiratory panel was negative (4) ESRD (end stage renal disease) on dialysis: Friday (5) Anemia: Hemoglobin stable, currently on GI prophylaxis Monitor closely because he has history of GI bleed when Eliquis was held (6) Hyperkalemia: Resolved following dialysis (7) Cellulitis: Continue antibiotics Status post left below-knee amputation 10/27, revision of below-knee amputation postponed to Friday Will hold heparin at midnight Will request coagulation profile in the morning (8) Endocarditis: No active signs Repeat echo which did not show vegetation Urine culture positive Enterobacter Qualifiers: Chronicity: unspecified Endocarditis type: infective Infective endocarditis organism: bacterial Qualified Code(s): I33.0 - Acute and subacute infective endocarditis (9) Acute encephalopathy: Polypharmacy related versus dementia (10) Urinary tract infection: Catheter was changed Enterobacter has been identified. Currently on meropenem. (11) COPD (chronic obstructive pulmonary disease): DuoNeb every 6 hours Budesonide twice daily BiPAP at night (12) DM2 (diabetes mellitus, type 2): Sliding scale insulin Consistent carb diet when diet initiated (13) Afib: Continue amiodarone Hold off on metoprolol for low blood pressure (14) Tachycardia: We have discontinued Eliquis in the past secondary to GI bleed requiring blood transfusion, patient required midodrine at some point for low blood pressure as well, he was only asked to continue taking Plavix Requesting EKG, he does have history of A-fib which she gets amiodarone Plan Sacral area ulcer, buttocks ulcer stage I-II: Optifoam dressing applied Allow natural Heparin subcutaneous for DVT prophylaxis Attestations 2 Medical Necessity Statement*: Family updated Continue medical management Coding Level of Care Code Acute Code for g Fwd Diagnoses Sacral wound S31.000A Sepsis A41.9 Pneumonia J18.9 ESRD (end stage renal disease) on dialysis N18.6; Z99.2 Anemia D64.9 Hyperkalemia E87.5 Cellulitis L03.90 Endocarditis I33.0 Chronicity: unspecified Endocarditis type: infective Infective endocarditis organism: bacterial Acute encephalopathy G93.40 Urinary tract infection N39.0 COPD (chronic obstructive pulmonary disease) J44.9 DM2 (diabetes mellitus, type 2) E11.9 Afib I48.91 Tachycardia R00.0
[2023-11-03 11:45] LABS: Partial Thromboplastin Time 32.6 SECONDS (23.9-36.7)
[2023-11-03 11:57] LABS: Glucose Point of Care 127 mg/dL (70-110)
--- NOTE | 2023-11-03 13:59 | PC.SOCIAL ---
IMM updated IMM dated and given to patient, copy placed in chart.
[2023-11-03] MEDS: HYDROmorphone 1 mg/mL INJ 1 mL 0.5 MG IVP (14:32)
[2023-11-03] MEDS: midodrine 5 mg TABLET 10 MG PO ×2 (15:03→20:39)
--- NOTE | 2023-11-03 15:50 | P.PN_ITS ---
Subjective 2 Subjective: Patient seen and examined. Pain controlled Vitals/I&O/Wt Last Vital Signs Temp 98.2 F 11/03/23 12:00 Pulse 114 H 11/03/23 14:00 Resp 18 11/03/23 14:32 BP 84/44 11/03/23 12:00 Pulse Ox 94 11/03/23 14:00 O2 Del Method High Flow Nasal Cannula 11/03/23 14:00 O2 Flow Rate 5 11/03/23 14:00 FiO2 50 10/29/23 06:15 11/03/23 11/03/23 11/03/23 06:59 14:59 22:59 Intake Total 188.45 / 820.433 104.35 / 104.35 Output Total 175 / 5 225 / 225 Balance 13.45 / -1204.567 -120.65 / -120.65 Weight last 48 hrs Weight 229 lb Weight 228 lb Weight 228 lb 9.91 oz Weight 236 lb 15.951 oz Physical Exam 2 Narrative: General: No acute distress, awake alert and oriented x 3 Extremities: Left lower extremity without edema or cellulitis Urinary Catheter Management: Fuentes: Cath Placed During This Visit: yes Reason for Continuing Indwelling Catheter: Accurate Measurement of Urinary Output in Critically Ill Patients Urinary Catheter Date of Insertion: 10/27/23 Urinary Catheter Time of Insertion: 09:00 Data 11/03/23 02:23 11/03/23 02:23 Micro: Microbiology 11/02/23 19:04 Blood Culture - Preliminary Blood SPECIMEN COLLECTED 11/02/23 19:00 Blood Culture - Preliminary Blood SPECIMEN COLLECTED A&P Assessment and plan (1) Wound of left lower extremity: Qualifiers: Encounter type: sequela Qualified Code(s): S81.802S - Unspecified open wound, left lower leg, sequela Plan Patient is a stable, will be taken to the OR tomorrow for completion left below the knee amputation. Patient should be n.p.o. after midnight The risks and benefits of the procedure, including but not limited to, bleeding, scar, numbness, pain, phantom limb syndrome, poor wound healing, possibility of needing an above-knee amputation in the future, difficulty with future prosthetics, or explained to the patient. He is understand the risks and wishes to proceed. Hold heparin drip at 7 AM Attestations 2 Medical Necessity Statement*: Per primary Coding Level of Care Code Acute Code for Chg Fwd Diagnoses Wound of left lower extremity, sequela S81.802S Encounter type: sequela
[2023-11-03 17:39] LABS: Glucose Point of Care 193 mg/dL (70-110)
[2023-11-03] MEDS: gabapentin 100 mg Capsule PO (17:57)
[2023-11-03] MEDS: oxyCODONE 5 mg IR Tab/Cap PO ×2 (17:57→22:19)
[2023-11-03] MEDS: insulin lispro 100 unit/1 mL SUBCUT (17:57)
--- NOTE | 2023-11-03 19:22 | PC.NURSE ---
per Dr. Baxter, we are to stop heparin at 0700 on 11/04/23. Dr. Rodriguez notified.
[2023-11-03] MEDS: OLANZapine 5 mg ODT PO (20:40)
[2023-11-03] MEDS: heparin drip 25,000 UNIT/500 ML PREMIX 27.9499999999999993 UNIT IV (20:40)
[2023-11-03 20:50] LABS: Glucose Point of Care 111 mg/dL (70-110)
--- NOTE | 2023-11-03 20:56 | PC.NURSE ---
Addendum entered by Marla Vasquez RN 11/03/23 20:57: Morphine 1 mg IV q4hr PRN ordered for breakthrough pain by Dr. Levy. Original Note: Dr. Levy notified of the following by me: Patient had a left BKA on the and is going for revision tomorrow. They d/c'd his Dialudid and he said that was the good stuff, it pisses me off they did that. He is continually c/o pain to his left leg and cannot have his PRN Oxy until 10 pm. His Oxy is 5 mg q4 hour PRN. I didn't know if you would be interested in maybe increasing the dose of his Oxy or maybe doing a low dose PRN Morphine for breakthrough pain.
[2023-11-03] MEDS: morphine 4 mg/mL SDV 1 mL 1 MG IVP (21:21)
[2023-11-04] VITALS (29 sets, daily range): BP systolic 95–131; BP diastolic 51–62; PULSE 105–120; RESP 16–22; TEMP 36.4–37; O2SAT 90–100
[2023-11-04] MEDS: oxyCODONE 5 mg IR Tab/Cap PO ×3 (02:04→11:29)
[2023-11-04] MEDS: ipratropium-albuterol 3 mL Neb INHALATION ×2 (02:42→19:39)
[2023-11-04 03:07] LABS: Basophils % 0.3 %; Eosinophils # 0.2 10^3/uL (0.0-0.8); Eosinophils % 4.3 %; Hematocrit 23.4 % (37-53); Lymphocytes # 0.5 10^3/uL (0.8-4.8); Lymphocytes % 11.8 %; Mean Corpuscular HGB Conc 30.3 g/dL (30-55); Mean Corpuscular Volume 95.5 fl (82-101); Mean Platelet Volume 12.2 fL (7.4-10.4); Monocytes # 0.1 10^3/uL (0.2-0.9); Monocytes % 2.8 %; Neutrophils # 3.12 10^3/uL (1.8-7.7); Neutrophils % 79.8 %; Nucleated Red Blood Cells % 0 %; Platelet Count 93 10^3/cmm (157-399); Red Blood Count 2.45 10^6/uL (3.85-5.65); Red Cell Distribution Width 16.1 % (12.1-15.1); White Blood Count 3.91 10^3/uL (3.29-11.43)
[2023-11-04 03:09] LABS: Platelet Count 93 10^3/cmm (157-399)
[2023-11-04 03:20] LABS: INR 1.11 (0.8-1.2)
[2023-11-04 03:21] LABS: Fibrinogen 352 mg/dL (174-498)
[2023-11-04 03:28] LABS: Alanine Aminotransferase < 5 U/L (0-41); Alkaline Phosphatase 275 U/L (40-130); Anion Gap 19.6 (5-19); Aspartate Amino Transferase 20 U/L (0-40); Blood Urea Nitrogen 65 mg/dL (8-23); Calcium 7.8 mg/dL (8.5-10.5); Carbon Dioxide 25 mmol/L (22-29); Chloride 99 mmol/L (98-107); Creatinine Clr Calc Pharmacy 17.7998; Glomerular Filtration Rate 10.7 mL/min (90-130); Glucose 109 mg/dL (65-115); Magnesium 2.1 mg/dL (1.7-2.3); Osmolality Calculated 307 mOsm/kg (285-295); Partial Thromboplastin Time 96.6 SECONDS (23.9-36.7); Phosphorus 4.5 mg/dL (2.5-4.5); Potassium 4.6 mmol/L (3.5-5.1); Sodium 139 mmol/L (136-145); Total Bilirubin 0.5 mg/dL (0.15-1.2)
[2023-11-04 03:29] LABS: Vancomycin Random 17.1 ug/mL (20.0-40.0)
[2023-11-04] MEDS: midodrine 5 mg TABLET 10 MG PO (06:03)
[2023-11-04] MEDS: amiodarone 200 mg Tablet PO (06:03)
[2023-11-04 06:33] LABS: Glucose Point of Care 121 mg/dL (70-110)
[2023-11-04] MEDS: albumin 12.5 GM/50 ML VIAL IV ×2 (07:30→07:57)
--- NOTE | 2023-11-04 07:35 | PC.HD ---
Patient presents to dialysis room with BP 99/55. Albumin infusion initiated upon dialysis start.
[2023-11-04 11:01] LABS: Glucose Point of Care 142 mg/dL (70-110)
[2023-11-04] MEDS: meropenem 500 MG in sodium chloride 0.9% (plus) 50 ML 100 MG IV ×2 (11:22→23:27)
--- NOTE | 2023-11-04 11:35 | P.PN_ITS ---
Subjective 2 Subjective: This morning patient is awake and alert Will give him blood transfusion because hemoglobin is 7.1 and he is going for stump revision Getting dialyzed at this point Vitals/I&O/Wt Last Vital Signs Temp 97.6 F 11/04/23 11:30 Pulse 114 H 11/04/23 11:30 Resp 18 11/04/23 11:30 BP 95/55 11/04/23 11:30 Pulse Ox 92 11/04/23 11:30 O2 Del Method Nasal Cannula 11/04/23 11:30 O2 Flow Rate 5 11/04/23 02:43 FiO2 50 10/29/23 06:15 11/03/23 11/04/23 11/04/23 22:59 06:59 14:59 Intake Total 651.445 / 755.795 435.184 / 1190.979 523.817 / 523.817 Output Total 0 / 225 1400 / 1400 Balance 651.445 / 530.795 435.184 / 965.979 -876.183 / -876.183 Weight last 48 hrs Weight 105 kg Weight 103.873 kg Weight 103.873 kg Weight 103.419 kg Weight 103.7 kg Physical Exam 2 Narrative: Awake and alert Nonfocal neuroexam Getting dialyzed Dressing is dry no active drainage noted S1, S2 Currently on 4 L nasal cannula Blood pressure 95/55 mmHg Urinary Catheter Management: Fuentes: Cath Placed During This Visit: yes Reason for Continuing Indwelling Catheter: Accurate Measurement of Urinary Output in Critically Ill Patients Urinary Catheter Date of Insertion: 10/27/23 Urinary Catheter Time of Insertion: 09:00 Data 11/04/23 02:46 11/04/23 02:46 Micro: Microbiology 11/02/23 19:04 Blood Culture - Preliminary Blood NEGATIVE TO DATE 11/02/23 19:00 Blood Culture - Preliminary Blood NEGATIVE TO DATE A&P Assessment and plan (1) Sacral wound: (2) Sepsis: Patient started spiking fever again 11/01 Cultures negative to date Continue antibiotics Blood cultures are still negative urine culture positive for Enterobacter (3) Pneumonia: Respiratory panel was negative (4) ESRD (end stage renal disease) on dialysis: Friday (5) Anemia: Hemoglobin dropped to 7.1 will give him 1 unit PRBC before stump revision Monitor closely because he has history of GI bleed when Eliquis was held (6) Hyperkalemia: Resolved following dialysis (7) Cellulitis: Continue antibiotics Status post left below-knee amputation 10/27, revision of below-knee amputation postponed to Friday Will hold heparin at midnight Will request coagulation profile in the morning (8) Endocarditis: No active signs Repeat echo which did not show vegetation Urine culture positive Enterobacter Qualifiers: Chronicity: unspecified Endocarditis type: infective Infective endocarditis organism: bacterial Qualified Code(s): I33.0 - Acute and subacute infective endocarditis (9) Acute encephalopathy: Polypharmacy related versus dementia (10) Urinary tract infection: Catheter was changed Enterobacter has been identified. Currently on meropenem. (11) COPD (chronic obstructive pulmonary disease): DuoNeb every 6 hours Budesonide twice daily BiPAP at night (12) DM2 (diabetes mellitus, type 2): Sliding scale insulin Consistent carb diet when diet initiated (13) Afib: Continue amiodarone Hold off on metoprolol for low blood pressure (14) Tachycardia: We have discontinued Eliquis in the past secondary to GI bleed requiring blood transfusion, patient required midodrine at some point for low blood pressure as well, he was only asked to continue taking Plavix Requesting EKG, he does have history of A-fib which she gets amiodarone (15) Pulmonary embolism: (16) DVT (deep venous thrombosis): Plan Sacral area ulcer, buttocks ulcer stage I-II: Optifoam dressing applied Allow natural Attestations 2 Medical Necessity Statement*: Continue medical management Coding Level of Care Code Acute Code for g Fwd Diagnoses Sacral wound S31.000A Sepsis A41.9 Pneumonia J18.9 ESRD (end stage renal disease) on dialysis N18.6; Z99.2 Anemia D64.9 Hyperkalemia E87.5 Cellulitis L03.90 Endocarditis I33.0 Chronicity: unspecified Endocarditis type: infective Infective endocarditis organism: bacterial Acute encephalopathy G93.40 Urinary tract infection N39.0 COPD (chronic obstructive pulmonary disease) J44.9 DM2 (diabetes mellitus, type 2) E11.9 Afib I48.91 Tachycardia R00.0 Pulmonary embolism I26.99 DVT (deep venous thrombosis) I82.409
[2023-11-04] MEDS: sodium chloride 0.9% 1,000 ML 30 ML IV (12:30)
[2023-11-04] MEDS: heparin 5,000 unit/mL INJ 1 mL 5000 UNIT SUBCUT ×2 (12:34→17:24)
[2023-11-04 12:43] LABS: Glucose Point of Care 123 mg/dL (70-110)
--- NOTE | 2023-11-04 13:09 | P.ANESASSM_ITS ---
Pre-Anesthetic Assessment Height/Weight: Height 1.83 m Weight 105 kg Temp Pulse Resp BP Pulse Ox O2 Del Method O2 Flow Rate 97.6 F 116 H 22 H 109/59 97 Simple Mask 8 11/04/23 11:30 11/04/23 12:52 11/04/23 12:52 11/04/23 12:52 11/04/23 12:52 11/04/23 12:52 11/04/23 12:52 FiO2 50 10/29/23 06:15 Operation Date: 10/28/23 13:45 Proposed Procedures p Left Guillotine BKA(Left) - Alexander Baxter DO Operation Date: 11/04/23 14:40 Proposed Procedures p Completion left bka(Left) - Alexander Baxter DO Familial anesthetic complications: none Was Beta Raf taken within 24 hours: N/A Was Clonidine taken within 24 hours: N/A Last intake: Intake Last Liquid Date 11/04/23 Last Liquid Time 00:00 Last Solid Date 11/03/23 Last Solid Time 18:00 Social No alcohol and No tobacco Exam alert, oriented x 3, clear to auscultation bilaterally and regular rate & rhythm Airway Submandibular: within normal limits Cervical ROM: within normal limits Mallampati: Class II Dentition: chipped Pulmonary Chronic Obstructive Pulmonary Disease CV/HEM Atrial Fibrillation, Anemia (chronic), Arrythmia, Coronary Artery Disease and Deep Vein Thrombosis EF 63% '21 Chronic Renal Failure Metabolic Diabetes Mellitus Neuropsych acute encephalopathy Anesthetic Plan ASA status: 4 Anesthesia: Choice and Regional (specify below) (Fem and sciatic blk) Medications/Allergies Home Medications Medication Instructions Recorded Confirmed Last Taken Type albuterol sulfate 2.5 mg/3 mL 2.5 mg inhalation Q4H PRN 10/03/22 10/27/23 Unknown History (0.083 %) solution for nebulization Shortness Of Breath amiodarone 200 mg tablet 200 mg PO QAM 10/03/22 10/27/23 10/08/23 History acetaminophen 325 mg tablet 650 mg PO Q6H PRN Pain 08/12/23 10/27/23 10/27/23 History bisacodyl 10 mg rectal suppository 10 mg [place] DAILY PRN Constipation 08/12/23 10/27/23 Unknown History hydrocodone 5 mg-acetaminophen 325 1 tab PO Q6H PRN Pain 0310/27/23 10/08/23 History mg tablet insulin aspart U-100 100 unit/mL See Rx Instructions .Route .COMPLEX 08/12/23 10/27/23 10/08/23 History (3 mL) subcutaneous pen (Novolog FlexPen U-100 Insulin aspart) metoprolol tartrate 50 mg tablet See Rx Instructions .Route .COMPLEX 08/12/23 10/27/23 10/08/23 History nystatin 100,000 unit/gram topical 1 applic topical DAILY 08/12/23 10/27/23 10/07/23 History powder Saccharomyces boulardii 250 mg 250 mg PO BID 09/14/23 10/27/23 10/08/23 History capsule albuterol sulfate 90 mcg/actuation 2 puff inhalation Q6H PRN 09/14/23 10/27/23 Unknown History aerosol inhaler (Ventolin HFA) Shortness Of Breath bumetanide 1 mg tablet See Rx Instructions .Route .COMPLEX 09/14/23 10/27/23 Unknown History calcium acetate 667 mg tablet 667 mg PO DAILY 09/14/23 10/27/23 10/08/23 History clopidogrel 75 mg tablet 75 mg PO DAILY 09/14/23 10/27/23 10/08/23 History gabapentin 100 mg capsule 100 mg PO TID 09/14/23 10/27/23 10/08/23 History vancomycin 125 mg capsule 125 mg PO TID #60 caps 09/25/23 10/27/23 10/08/23 Rx insulin glargine 100 unit/mL (3 12 unit SUBCUT QPM 10/08/23 10/27/23 10/07/23 History mL) subcutaneous pen (Lantus Solostar U-100 Insulin) metoprolol tartrate 50 mg tablet See Rx Instructions .Route .COMPLEX 10/08/23 10/27/23 10/07/23 History morphine 15 mg tablet,extended 15 mg PO Q12H 10/27/23 10/27/23 Unknown History release nicotine 21 mg/24 hr daily 1 patch transdermal DAILY 10/27/23 10/27/23 Unknown History transdermal patch silver sulfadiazine 1 % topical 1 applic topical DAILY 10/27/23 10/27/23 Unknown History cream (Silvadene) Allergies Allergy/AdvReac Type Severity Reaction Status Date / Time amoxicillin [From Augmentin] Allergy Mild rash Verified 09/12/23 09:18 clavulanic acid Allergy Mild rash Verified 09/12/23 09:18 [From Augmentin] levofloxacin Allergy Mild rash Verified 09/12/23 09:18 Current Medications Generic Name Dose Route Start Last Admin Trade Name Freq PRN Reason Stop Dose Admin Acetaminophen 650 mg 10/27/23 12:26 10/28/23 20:55 Acetaminophen 325 Mg Tablet PO 650 mg Q6H PRN Administration MILD PAIN Albuterol/Ipratropium 3 ml 10/27/23 14:00 11/04/23 09:15 Ipratropium-Albuterol 3 Ml Neb INHALATION Not Given Q6H.RESP JAIDEN Amiodarone HCl 200 mg 10/28/23 06:00 11/04/23 06:03 Amiodarone 200 Mg Tablet PO 200 mg QAM JAIDEN Administration Budesonide 0.5 mg 10/28/23 20:00 11/04/23 09:15 Budesonide 0.5 Mg/2 Ml Neb INHALATION Not Given BID.RESPIRATORY JAIDEN Clopidogrel Bisulfate 75 mg 10/28/23 09:00 11/02/23 08:42 Clopidogrel 75 Mg Tablet PO 75 mg DAILY JAIDEN Administration Gabapentin 100 mg 10/30/23 16:45 11/04/23 11:00 Gabapentin 100 Mg Capsule PO Not Given BID JAIDEN Meropenem 500 mg/ Sodium 50 mls @ 100 mls/hr 10/29/23 20:00 11/04/23 11:22 Chloride IV 100 mls/hr Q12H JAIDEN Administration Protocol Albumin Human 12.5 gm in 50 mls @ 60 mls/hr 11/02/23 07:46 11/04/23 07:57 Albumin IV 120 mls/hr PRN PRN Administration Hypotension and/or symptomatic Insulin Human Lispro 0 unit 10/27/23 12:26 11/04/23 07:33 Insulin Lispro 100 Unit/1 Ml SUBCUT Not Given WM&BEDTIME JAIDEN Protocol Metoprolol Succinate 25 mg 10/31/23 09:00 11/02/23 08:43 Metoprolol Succinate Er (24 Hr) 25 Mg Tablet PO 25 mg DAILY JAIDEN Administration Midodrine 10 mg 10/27/23 15:00 11/04/23 06:03 Midodrine 5 Mg Tablet PO 10 mg TID JAIDEN Administration Morphine Sulfate 1 mg 11/03/23 21:00 11/03/23 21:21 Morphine 4 Mg/Ml Sdv 1 Ml IVP 1 mg Q4H PRN Administration SEVERE PAIN Olanzapine 5 mg 10/31/23 21:00 11/03/23 20:40 Olanzapine 5 Mg Odt PO 5 mg BEDTIME JAIDEN Administration Oxycodone HCl 5 mg 11/03/23 17:48 11/04/23 11:29 Oxycodone 5 Mg Ir Tab/Cap PO 5 mg Q4H PRN Administration MODERATE PAIN Pantoprazole Sodium 40 mg 10/28/23 09:00 11/04/23 10:59 Pantoprazole 40 Mg Sdv IVP Not Given DAILY JAIDEN PFSH Anesthesia Medical History Wound of left lower extremity Acute encephalopathy Anemia ESRD (end stage renal disease) on dialysis Cellulitis Afib Urinary tract infection Hyperkalemia DM2 (diabetes mellitus, type 2) COPD (chronic obstructive pulmonary disease) Stage III pressure ulcer Wound of lower extremity Critical limb ischemia of left lower extremity Elevated lactic acid level GI bleed Acute anemia Abscess or cellulitis of foot Acute lower limb ischemia Arterial occlusion Sepsis End stage kidney disease Congestive heart failure CHF exacerbation History of Clostridioides difficile colitis Bilateral pleural effusion Pulmonary arterial hypertension Acute respiratory distress syndrome Pressure ulcer of right heel, unstageable Shock Septic shock NSTEMI (non-ST elevated myocardial infarction) Aspiration pneumonia Pulmonary edema Acute hypoxic respiratory failure Hypoglycemia Altered mental status Edema Decubitus ulcer of heel, unstageable Enterococcus faecalis infection Endocarditis Hypotension Chronic anemia Sepsis Hyponatremia Pressure ulcer of left leg, stage 2 Pressure ulcer of right leg, stage 2 Wound of left foot Excoriation of groin Excoriation of abdomen Pressure ulcer of left buttock, stage 2 Pressure ulcer of right buttock, stage 2 Wound of right lower extremity Lymphedema Stasis dermatitis Pressure sore on buttocks Inability to perform activities of daily living Kidney dysfunction Fluid overload Hemodialysis status Temporary dialysis catheter placement Acute kidney failure Bradycardia Anasarca Bilateral lower leg cellulitis Metabolic acidosis DKA (diabetic ketoacidosis) Falls Generalized weakness FRANCISCO (acute kidney injury) CHF (congestive heart failure) Chronic respiratory failure with hypoxia Social History Smoking and tobacco/nicotine status: former use of tobacco/nicotine Data Anesthesia 11/04/23 02:46 11/04/23 02:46 Short CBC 11/03/23 11/04/23 11/04/23 Range/Units 02:23 02:46 02:46 WBC 4.07 3.91 (3.29-11.43) 10^3/uL Hgb 7.30 L 7.10 L (11.27-16.99) g/dL Hct 24.2 L 23.4 L (37-53) % MCV 94.5 95.5 (82-101) fl Plt Count 106 L 93 L 93 L (157-399) 10^3/cmm Neut % (Auto) 87.8 79.8 % Neut # (Auto) 3.57 3.12 (1.8-7.7) 10^3/uL BMP 11/03/23 11/04/23 02:23 02:46 Sodium 142 139 Potassium 4.2 4.6 Chloride 103 99 Carbon Dioxide 27 25 BUN 44 H 65 H Creatinine 4.6 H 5.5 H Glucose 100 109 Calcium 7.7 L 7.8 L Liver Function 11/04/23 Range/Units 02:46 Total Bilirubin 0.5 (0.15-1.2) mg/dL AST 20 (0-40) U/L ALT < 5 (0-41) U/L Alkaline Phosphatase 275 H (40-130) U/L Albumin 3.0 L (3.5-5.2) g/dL Blood Bank 11/04/23 10:04 Blood Type A Positive Rho(D) Type Rh positive Antibody Screen Negative Coags 11/02/23 11/02/23 11/03/23 12:46 19:00 02:23 PT INR APTT 27.0 86.4 H D 50.7 H Fibrinogen 11/03/23 11/03/23 11/04/23 10:44 18:15 02:46 PT 14.70 INR 1.11 APTT 32.6 78.0 H D 96.6 H Fibrinogen 11/04/23 02:46 PT INR APTT Cancelled Fibrinogen 352 ABG 11/02/23 17:44 Specimen Type Arterial Sample Site Radial, right ABG pH 7.47 H ABG pCO2 39.0 ABG pO2 66.4 L ABG HCO3 28.1 H ABG O2 Saturation 95.8 ABG Base Excess 4.1 H A-a O2 Gradient 4.5 L O2 Delivery Device Nc O2 Liters/Min 7.0 Microbiology 11/02/23 19:04 Blood Culture - Preliminary Blood NEGATIVE TO DATE 11/02/23 19:00 Blood Culture - Preliminary Blood NEGATIVE TO DATE Cardiac Studies: 2 Echocardiogram 10/08/23 Echocardiogram Limited Views 09/15/23 Transesophageal Echocardiogram 08/14/23
--- NOTE | 2023-11-04 13:26 | P.PN_ITS ---
Vitals/I&O/Wt Last Vital Signs Temp 97.6 F 11/04/23 11:30 Pulse 116 H 11/04/23 12:52 Resp 22 H 11/04/23 12:52 BP 109/59 11/04/23 12:52 Pulse Ox 97 11/04/23 12:52 O2 Del Method Simple Mask 11/04/23 12:52 O2 Flow Rate 8 11/04/23 12:52 FiO2 50 10/29/23 06:15 11/03/23 11/04/23 11/04/23 22:59 06:59 14:59 Intake Total 651.445 / 755.795 435.184 / 1190.979 523.817 / 523.817 Output Total 0 / 225 1400 / 1400 Balance 651.445 / 530.795 435.184 / 965.979 -876.183 / -876.183 Weight last 48 hrs Weight 231 lb 7.766 oz Weight 229 lb Weight 229 lb Weight 228 lb Weight 228 lb 9.91 oz Physical Exam 2 Urinary Catheter Management: Fuentes: Cath Placed During This Visit: yes Reason for Continuing Indwelling Catheter: Accurate Measurement of Urinary Output in Critically Ill Patients Urinary Catheter Date of Insertion: 10/27/23 Urinary Catheter Time of Insertion: 09:00 Data 11/04/23 02:46 11/04/23 02:46 Micro: Microbiology 11/02/23 19:04 Blood Culture - Preliminary Blood NEGATIVE TO DATE 11/02/23 19:00 Blood Culture - Preliminary Blood NEGATIVE TO DATE A&P Assessment and plan (1) Wound of left lower extremity: Qualifiers: Encounter type: sequela Qualified Code(s): S81.802S - Unspecified open wound, left lower leg, sequela Plan completion left below the knee amputation The risks and benefits of the procedure, including but not limited to, bleeding, scar, numbness, pain, phantom limb syndrome, poor wound healing, possibility of needing an above-knee amputation in the future, difficulty with future prosthetics, or explained to the patient. He is understand the risks and wishes to proceed. Attestations 2 Medical Necessity Statement*: per primary Coding Level of Care Code Acute Code for Chg Fwd Diagnoses Wound of left lower extremity, sequela S81.802S Encounter type: sequela
--- NOTE | 2023-11-04 14:01 | ANES.PROC ---
Anesthesia Procedures Procedure/Date: 11/04/23 Nerve Block ^: Nerve Block 1: Main Anesthesia: other (MAC) Time Out Performed: Yes Consent: requested by attending/covering physician, from patient, risks and benefits reviewed and patient agrees to proceed Nerve block location: femoral (left) and other (sciatic (ant)) Anesthesia monitors applied: pulse oximetry, EKG, BP cuff and oxygen Anesthetic Used: lidocaine 2% (20mls) and ropivicaine 0.5% (20mls) Amount of anesthesia used (mL): 40 Ultrasound used to: recognize landmarks Nerve Stimulator Used?: No Interscalene/Femoral BLK: 4 stimuplex 21 g needle used for position and inplane approach Injection: neg aspiration of heme Patient Tolerated Procedure: well Complications: none
--- NOTE | 2023-11-04 14:17 | PC.NURSE ---
Blood scanned in and verified by Julieth Pepe RN
[2023-11-04 15:10] LABS: ABG PCO2 56.9 mmHg (35-45); ABG PH Result 7.25 (7.35-7.45); Alveolar-Arterial Oxygen Gradi 68.2 mmHg (5-10); Arterial Blood Gas Hematocrit 25.2 % (42-52); Base Excess ABG -2.3 mmol/L (-2.0-2.0); Blood Gas Operator Identificat WILPA; Blood Gas Sample Type Arterial; Carboxyhemoglobin 1.2 %THgb (0.4-20.1); HCO3 ABG 25.1 mmol/L (22-26); Ionized Calcium Level - ABG 1.2 mmol/L (1.1-1.4); Methemoglobin 0.5 % (0.4-1.5); Oxygen Device VENT; Oxygen Saturation ABG 98.7; PO2 FiO2 Ratio Arterial Blood 0; Total Hemoglobin 8.2 g/dL (14-18)
[2023-11-04 15:11] LABS: Basophils % 0.3 %; Eosinophils # 0.2 10^3/uL (0.0-0.8); Eosinophils % 4.2 %; Hematocrit 24.4 % (37-53); Lymphocytes # 0.8 10^3/uL (0.8-4.8); Lymphocytes % 23.6 %; Mean Corpuscular HGB Conc 30.3 g/dL (30-55); Mean Corpuscular Hemoglobin 29.2 pg (27-33); Mean Corpuscular Volume 96.4 fl (82-101); Mean Platelet Volume 12.2 fL (7.4-10.4); Monocytes # 0.1 10^3/uL (0.2-0.9); Monocytes % 3.9 %; Neutrophils # 2.38 10^3/uL (1.8-7.7); Neutrophils % 66.9 %; Nucleated Red Blood Cells % 0 %; Platelet Count 93 10^3/cmm (157-399); Red Blood Count 2.53 10^6/uL (3.85-5.65); Red Cell Distribution Width 16.6 % (12.1-15.1); White Blood Count 3.56 10^3/uL (3.29-11.43)
[2023-11-04 15:28] LABS: Anion Gap 15.3 (5-19); Blood Urea Nitrogen 28 mg/dL (8-23); Calcium 8.3 mg/dL (8.5-10.5); Carbon Dioxide 24 mmol/L (22-29); Chloride 104 mmol/L (98-107); Glomerular Filtration Rate 21.5 mL/min (90-130); Glucose 182 mg/dL (65-115); Osmolality Calculated 298 mOsm/kg (285-295); Potassium 4.3 mmol/L (3.5-5.1); Sodium 139 mmol/L (136-145)
--- NOTE | 2023-11-04 15:33 | SUR.OPER ---
proximal left thigh wound noted while positioning patient.
--- NOTE | 2023-11-04 15:44 | PM.OP ---
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 He was found to have gangrene of his left lower extremity. He underwent a guillotine left below-knee amputation. Today he is undergoing completion left below-knee amputation. The risk and benefits of procedure were explained and documented. Procedure: Patient was wheeled in the OR and placed on the OR table in the supine position. A spinal and MAC was performed by the department of anesthesia. The left lower extremity was prepped and draped in usual sterile fashion. A timeout was performed. All present were in agreement. Unfortunately, there were still healthy appearing wounds on his left leg where the posterior flap was to be made. A posterior flap was drawn from 1 handbreadth below the tibial plateau on the posterior one third of the leg going down to one third the diameter of the leg. This crossed over a wound on the posterior most aspect. Tourniquet was brought up to 250 mmHg. A 10 blade scalpel was then used to cut the skin and subcutaneous tissue down along the line to round. A periosteal elevator was used to clear the tibia up to 1 cm. A gently saw was then used to transect the tibia. The periosteal elevator was then used to clear the fibula up to 2 cm. The Leah was then used to transect the fibula. An amputation knife was then used to cut down through the muscle and subcutaneous tissue to create the posterior flap. The leg was passed off. Vessels were ligated with 2-0 silk. The tourniquet was let down. Tourniquet time was 8 minutes. Small areas of bleeding were controlled with electrocautery. The fascia was then approximated with 0 Vicryl in an interrupted fashion. Dermis was then approximated using 2-0 Vicryl in interrupted fashion. 2-0 and 3-0 nylon was used in a interrupted vertical mattress fashion to approximate the dermis and epidermis. Skin homar were applied. There is an area of concern in the anteriormost aspect of the amputation where the healing wound is. The skin was very fragile here. Sterile bandage was applied. Anesthesia had some difficulty maintaining his vitals during the procedure. He received 2 units of PRBCs during the procedure due to a starting hemoglobin below 8. 50 cc of blood loss.
[2023-11-04 15:48] LABS: Slide Review Slide Review Perform
--- NOTE | 2023-11-04 16:03 | ANE.PACU2 ---
Inpatient post-anesthesia follow up: Airway intact: Yes (ETT) Vital signs: Temperature 97.6 F Pulse Rate 116 Respiratory Rate 22 Blood Pressure 109/59 Pulse Oximetry 97 Oxygen Delivery Me thod Simple Mask Oxygen Flow Rate 8 Fraction of Inspir ed Oxygen 50 Hydration adequate: Yes Nausea and vomiting: No Pain level: 1 Mental status: Altered (sedated) Additional Comments: Patient became suddenly hypotensive and hypoxic in middle of procedure (attempted MAC with fem/sciatic blks) converted to ETT when difficulty happened. Patient was positioned with head slightly down, ?pleural effusions became issue in head down position? Seemed to resolve with intubation and head level...never the less to ICU intubated.
--- NOTE | 2023-11-04 16:11 | XRR_ITS ---
PROCEDURE INFORMATION: Exam: XR Chest Exam date and time: 11/04/2023 4:24 PM Age: 62 years old Clinical indication: Device placement; Ett placement (vent status); Additional info: Et TECHNIQUE: Imaging protocol: Radiologic exam of the chest. Views: 1 view. COMPARISON: CT angio chest PE protcl [id number] 11/02/2023 10:58 AM FINDINGS: Tubes, catheters and devices: The endotracheal tube is appropriately positioned in the distal thoracic trachea with the tip above the john. A large dual lumen right internal jugular central venous catheter is appropriately positioned. The tip is in the lower SVC near the cavoatrial junction. Lungs: There is hazy ground-glass opacity projecting over the lung bases, greater on the right. There is no focal consolidation. Pleural spaces: Right diaphragm is obscured and right lateral costophrenic sulcus is blunted. Left lateral costophrenic sulcus is blunted. Heart/Mediastinum: There is mild enlargement of the cardiac silhouette. Bones/joints: Bones are unremarkable. XR/XR chest 1V portable [id number] IMPRESSION: 1. Satisfactory endotracheal tube position. 2. Satisfactory dialysis catheter position. 3. Bilateral pleural effusions, larger on the right.
--- NOTE | 2023-11-04 16:17 | P.PN_ITS ---
Subjective 2 Subjective: seen post op BKA revision, unstable during OR, currently on levophed 2 mcg, intubated Vitals/I&O/Wt Last Vital Signs Temp 97.6 F 11/04/23 11:30 Pulse 116 H 11/04/23 12:52 Resp 22 H 11/04/23 12:52 BP 109/59 11/04/23 12:52 Pulse Ox 97 11/04/23 12:52 O2 Del Method Simple Mask 11/04/23 12:52 O2 Flow Rate 8 11/04/23 12:52 FiO2 50 10/29/23 06:15 11/04/23 11/04/23 11/04/23 06:59 14:59 22:59 Intake Total 435.184 / 1190.979 523.817 / 523.817 250 / 773.817 Output Total 0 / 225 1400 / 1400 Balance 435.184 / 965.979 -876.183 / -876.183 250 / -626.183 Weight last 48 hrs Weight 105 kg Weight 103.873 kg Weight 103.873 kg Weight 103.419 kg Weight 103.7 kg Physical Exam 2 Urinary Catheter Management: Fuentes: Cath Placed During This Visit: yes Reason for Continuing Indwelling Catheter: Accurate Measurement of Urinary Output in Critically Ill Patients Urinary Catheter Date of Insertion: 10/27/23 Urinary Catheter Time of Insertion: 09:00 Data 11/04/23 15:00 11/04/23 15:00 Micro: Microbiology 11/02/23 19:04 Blood Culture - Preliminary Blood NEGATIVE TO DATE 11/02/23 19:00 Blood Culture - Preliminary Blood NEGATIVE TO DATE Other data: seen via telemedicine with assistance of RN at bedside A&P Assessment and plan (1) ESRD (end stage renal disease) on dialysis: 1. ESRD- HD earlier today 2. s/p completion Left BKA today 3. Anemia, s/p transfusion 2u pRBC during OR Post op labs pending. Will evaluate for need for HD again tomorrow Plan see above Attestations 2 Medical Necessity Statement*: critically ill Time Spent in Patient Care: less than 15 minutes Coding Level of Care Code Acute Code for Chg Fwd Diagnoses ESRD (end stage renal disease) on dialysis N18.6; Z99.2
[2023-11-04] MEDS: norepinephrine 4 MG/250 ML BAG 7.5 MG IV (16:39)
[2023-11-04] MEDS: propofol 1,000 MG/100 ML INJ 12.5999999999999996 MG IV ×2 (16:39→23:25)
[2023-11-04] MEDS: fentaNYL 1,000 MCG/100 ML BAG 2.5 MCG IV (16:40)
--- NOTE | 2023-11-04 17:00 | PC.NURSE ---
1600 to ICU 10 via bed by OR staff. Patient sedated and ventilated. VSS.
[2023-11-04 17:15] LABS: ABG PCO2 44.1 mmHg (35-45); Alveolar-Arterial Oxygen Gradi 63.6 mmHg (5-10); Arterial Blood Gas Hematocrit 23.2 % (42-52); Base Excess ABG 2.3 mmol/L (-2.0-2.0); Blood Gas Allen Test Pos; Blood Gas Operator Identificat GD; Blood Gas Sample Site Radial, right; Blood Gas Sample Type Arterial; Carboxyhemoglobin 1.2 %THgb (0.4-20.1); HCO3 ABG 27.4 mmol/L (22-26); HGB O2 Sat 98.4 % (95-100); Ionized Calcium Level - ABG 1.2 mmol/L (1.1-1.4); Methemoglobin 0.4 % (0.4-1.5); Oxygen Device VENT; PO2 FiO2 Ratio Arterial Blood 0; Potassium Level - ABG 3.8 mmol/L (3.5-5.0); Total Hemoglobin 7.6 g/dL (14-18)
[2023-11-04 17:23] LABS: Glucose Point of Care 134 mg/dL (70-110)
[2023-11-04] MEDS: budesonide 0.5 mg/2 mL Neb INHALATION (19:39)
--- NOTE | 2023-11-04 19:55 | XRR_ITS ---
PROCEDURE INFORMATION: Exam: XR Chest Exam date and time: 11/04/2023 8:22 PM Age: 62 years old Clinical indication: Device placement; Ng tube; Prior surgery; Surgery date: 6+ months; Surgery type: Dialysis cath; Additional info: Orogastric tube placement TECHNIQUE: Imaging protocol: Radiologic exam of the chest. Views: 1 view. COMPARISON: CR (CHEST, ) 11/04/2023 4:24 PM FINDINGS: Tubes, catheters and devices: The endotracheal tube is appropriately positioned in the distal thoracic trachea with the tip above the john. OG tube extends approximately 5 cm beyond the expected position of the diaphragmatic hiatus. The side port is above the hiatus. Right dialysis catheter tip is in the right atrium. There are multiple wire leads projecting over the chest. Lungs: There is opacification of the lung bases and blunting of the lateral costophrenic sulci. There is ground-glass opacity in the central lower lung predominant distribution bilaterally. Pleural spaces: No pneumothorax. Heart/Mediastinum: The cardiac silhouette is partially obscured. Mediastinal contours are grossly unremarkable given positioning. Bones/joints: Bones are unremarkable. XR/XR chest 1V [id number] IMPRESSION: 1. NG tube extends into the stomach. The side port lies above the diaphragmatic hiatus. The tube should be advanced 10 cm for ideal position. 2. Stable satisfactory position of endotracheal tube. 3. Stable position of right dialysis catheter with the tip in the right atrium. 4. Bilateral pleural effusions are stable. 5. Bilateral pulmonary ground-glass opacity is stable, likely pulmonary edema.
[2023-11-04 21:36] LABS: Glucose Point of Care 112 mg/dL (70-110)
--- NOTE | 2023-11-04 23:02 | XRR_ITS ---
PROCEDURE INFORMATION: Exam: XR Chest Exam date and time: 11/04/2023 11:32 PM Age: 62 years old Clinical indication: Device placement; Other: Orogastric tube; Additional info: Orogastric tube placement TECHNIQUE: Imaging protocol: Radiologic exam of the chest. Views: 1 view. COMPARISON: CR (CHEST, ) 11/04/2023 8:22 PM FINDINGS: Tubes, catheters and devices: Endotracheal tube tip 4.2 cm above the john. Right central venous catheter tip over right atrium. Enteric tube tip extending below the diaphragm inferiorly off the field of view. Lungs: Pulmonary vascular congestion. Bibasilar airspace infiltrates. Pleural spaces: Small bilateral pleural effusions. Heart/Mediastinum: Unremarkable. No cardiomegaly. Bones/joints: Unremarkable. XR/XR chest 1V [id number] IMPRESSION: 1. Endotracheal tube tip 4.2 cm above the john. 2. Right central venous catheter tip over right atrium. 3. Enteric tube tip extending below the diaphragm inferiorly off the field of view. 4. Small bilateral pleural effusions. 5. Pulmonary vascular congestion. 6. Bibasilar airspace infiltrates.
[2023-11-05] VITALS (65 sets, daily range): BP systolic 89–133; BP diastolic 38–70; PULSE 94–119; RESP 14–36; TEMP 37–37.9; O2SAT 88–99
[2023-11-05] MEDS: ipratropium-albuterol 3 mL Neb INHALATION ×4 (01:01→21:07)
[2023-11-05 04:16] LABS: ABG PCO2 40.1 mmHg (35-45); ABG PH Result 7.45 (7.35-7.45); Alveolar-Arterial Oxygen Gradi 33.1 mmHg (5-10); Arterial Blood Gas Hematocrit 22.8 % (42-52); Base Excess ABG 3.6 mmol/L (-2.0-2.0); Blood Gas Allen Test Pos; Blood Gas Sample Site Radial, right; Blood Gas Sample Type Arterial; Carboxyhemoglobin 1.2 %THgb (0.4-20.1); HCO3 ABG 27.9 mmol/L (22-26); HGB O2 Sat 97.9 % (95-100); Ionized Calcium Level - ABG 1.1 mmol/L (1.1-1.4); Methemoglobin 0.5 % (0.4-1.5); Oxygen Device VENT; Oxygen Saturation ABG 99.7; PO2 FiO2 Ratio Arterial Blood 0; Potassium Level - ABG 3.7 mmol/L (3.5-5.0); Total Hemoglobin 7.4 g/dL (14-18)
[2023-11-05] MEDS: heparin 5,000 unit/mL INJ 1 mL 5000 UNIT SUBCUT ×2 (04:35→15:14)
[2023-11-05 04:46] LABS: Basophils % 0.5 %; Eosinophils # 0.1 10^3/uL (0.0-0.8); Eosinophils % 3.1 %; Hematocrit 23.6 % (37-53); Lymphocytes # 1.3 10^3/uL (0.8-4.8); Lymphocytes % 34.4 %; Mean Corpuscular HGB Conc 30.9 g/dL (30-55); Mean Corpuscular Hemoglobin 28.7 pg (27-33); Mean Corpuscular Volume 92.9 fl (82-101); Mean Platelet Volume 12.1 fL (7.4-10.4); Monocytes # 0.2 10^3/uL (0.2-0.9); Monocytes % 6.2 %; Neutrophils # 2.12 10^3/uL (1.8-7.7); Neutrophils % 54.5 %; Nucleated Red Blood Cells % 0 %; Platelet Count 102 10^3/cmm (157-399); Red Blood Count 2.54 10^6/uL (3.85-5.65); Red Cell Distribution Width 17.2 % (12.1-15.1); White Blood Count 3.89 10^3/uL (3.29-11.43)
[2023-11-05 05:09] LABS: Alanine Aminotransferase < 5 U/L (0-41); Albumin Level 2.9 g/dL (3.5-5.2); Alkaline Phosphatase 236 U/L (40-130); Aspartate Amino Transferase 14 U/L (0-40); Blood Urea Nitrogen 33 mg/dL (8-23); Calcium 8.1 mg/dL (8.5-10.5); Carbon Dioxide 25 mmol/L (22-29); Chloride 104 mmol/L (98-107); Creatinine Clr Calc Pharmacy 25.8947; Globulin 2.5 g/dL (1.3-4.6); Glomerular Filtration Rate 16.3 mL/min (90-130); Glucose 99 mg/dL (65-115); Magnesium 1.9 mg/dL (1.7-2.3); Osmolality Calculated 303 mOsm/kg (285-295); Phosphorus 2.6 mg/dL (2.5-4.5); Sodium 143 mmol/L (136-145); Total Bilirubin 0.7 mg/dL (0.15-1.2); Total Protein 5.4 g/dL (6.6-8.7)
[2023-11-05 05:16] LABS: Slide Review Slide Review Perform
[2023-11-05] MEDS: propofol 1,000 MG/100 ML INJ 18.8999999999999986 MG IV ×2 (05:27→10:50)
[2023-11-05] MEDS: fentaNYL 1,000 MCG/100 ML BAG 12.5 MCG IV ×2 (05:27→13:10)
[2023-11-05] MEDS: amiodarone 200 mg Tablet PO (06:09)
[2023-11-05] MEDS: gabapentin 100 mg Capsule PO ×2 (08:04→17:38)
[2023-11-05] MEDS: pantoprazole 40 mg SDV IVP (08:04)
[2023-11-05] MEDS: midodrine 5 mg TABLET 10 MG PO ×3 (08:04→20:46)
[2023-11-05] MEDS: metoprolol succinate ER (24 HR) 25 mg Tablet PO (08:04)
[2023-11-05] MEDS: budesonide 0.5 mg/2 mL Neb INHALATION ×2 (08:40→21:07)
[2023-11-05 09:01] LABS: Glucose Point of Care 101 mg/dL (70-110)
[2023-11-05 09:19] LABS: Hematocrit 23.1 % (37-53)
[2023-11-05] MEDS: meropenem 500 MG in sodium chloride 0.9% (plus) 50 ML 100 MG IV ×2 (10:46→22:02)
--- NOTE | 2023-11-05 11:25 | PM.PN ---
Subjective Subjective: Perioperative complication, patient became hypoxic bradycardic, he was given a dose of epinephrine then intubated by the anesthesia Patient remained intubated overnight in the ICU This morning blood gas looks normal, minimal vent settings Off Levophed Started sedation vacation Weaning trial Please note hemoglobin has not improved, in total he got 2 units PRBC in last 24 hours Vitals/I&O/Wt Last Vital Signs Temp 99.6 F 11/05/23 08:00 Pulse 106 H 11/05/23 10:30 Resp 14 11/05/23 10:57 BP 104/45 11/05/23 10:30 Pulse Ox 94 11/05/23 10:57 O2 Del Method Mechanical Ventilation 11/05/23 08:40 O2 Flow Rate 8 11/04/23 12:52 FiO2 30 11/05/23 10:57 11/04/23 11/05/23 11/05/23 22:59 06:59 14:59 Intake Total 300 / 823.817 363.344 / 1187.161 100 / 100 Output Total 125 / 1525 30 / 1555 Balance 175 / -701.183 333.344 / -367.839 100 / 100 Weight last 48 hrs Weight 104.5 kg Weight 104.5 kg Weight 105 kg Weight 103.873 kg Physical Exam Narrative: Patient intubated Sedated Hemodynamically stable Off Levophed Left foot covered with dressing Fuentes catheter in place with minimal yellow-colored urine Abdomen soft Right leg venous's dermatitis and lymphedema Sacral area ulcer Multiple stages stage I-II Urinary Catheter Management: Fuentes: Cath Placed During This Visit: yes Reason for Continuing Indwelling Catheter: Accurate Measurement of Urinary Output in Critically Ill Patients Urinary Catheter Date of Insertion: 10/27/23 Urinary Catheter Time of Insertion: 09:00 Data 11/05/23 09:11 11/05/23 04:24 A&P Assessment and plan (1) CHF exacerbation: (2) Endocarditis: Qualifiers: Chronicity: unspecified Endocarditis type: infective Infective endocarditis organism: bacterial Qualified Code(s): I33.0 - Acute and subacute infective endocarditis (3) Afib: (4) Tachycardia: (5) Atherosclerosis of left lower extremity with gangrene: (6) Thrombocytopenia: (7) DVT (deep venous thrombosis): (8) Pulmonary embolism: (9) DM2 (diabetes mellitus, type 2): (10) ESRD (end stage renal disease) on dialysis: (11) Anemia: (12) Cellulitis: (13) Sacral wound: (14) Wound of left lower extremity: Qualifiers: Encounter type: sequela Qualified Code(s): S81.802S - Unspecified open wound, left lower leg, sequela (15) Acute encephalopathy: (16) COPD (chronic obstructive pulmonary disease): (17) Pneumonia: (18) Acute respiratory failure: Plan Perioperative respiratory failure complication Respite failure requiring mechanical ventilation Off Levophed Sedation vacation Weaning trial Plan to extubate today if possible Acute on chronic anemia Previous history of GI blood loss Heparin on hold Will give him third unit PRBC today This will be his third unit of PRBC in 24 hours Will ask nephro for dialysis today as well End Stage renal disease: Plan for dialysis today secondary to requiring blood transfusion 3 bags in 24 hours Revision of left below-knee amputation 11/03 No fever or leukocytosis Cultures negative Discontinue vancomycin meropenem in next 24 hours Guarded prognosis Patient is extremely deconditioned He is DNR/DNI Will discuss with his Lucian-dulce currently rate control New onset DVT and PE: Heparin on hold secondary to anemia, Seems like he wont be a good candidate for anticoagulating agent because of requiring multiple blood transfusions Spoke with the ICU nurse, tracer bullet charging machine operator to ask for dialysis today secondary for 3 unit PRBC in 24 hours Attestations Medical Necessity Statement*: Weaning trial today, continue ICU management Coding Level of Care Code Critical Care >/= 30 minutes Critical care time (in minutes): 45 The high probability of a clinically significant, sudden or life threatening deterioration, as referenced in this documentation, required my full and direct attention, intervention and personal management. The critical care time shown is in addition to time spent performing any reported separately billable procedures and includes the following: [x] Data and vital sign review and interpretation [x] Patient assessment, examination and intervention [x] Medication orders and management [x] Patient/Family updates as able [x] Care Coordination and Documentation. Diagnoses CHF exacerbation I50.9 Endocarditis I33.0 Chronicity: unspecified Endocarditis type: infective Infective endocarditis organism: bacterial Afib I48.91 Tachycardia R00.0 Atherosclerosis of left lower extremity with gangrene I70.262 Thrombocytopenia D69.6 DVT (deep venous thrombosis) I82.409 Pulmonary embolism I26.99 DM2 (diabetes mellitus, type 2) E11.9 ESRD (end stage renal disease) on dialysis N18.6; Z99.2 Anemia D64.9 Cellulitis L03.90 Sacral wound S31.000A Wound of left lower extremity, sequela S81.802S Encounter type: sequela Acute encephalopathy G93.40 COPD (chronic obstructive pulmonary disease) J44.9 Pneumonia J18.9 Acute respiratory failure J96.00
--- NOTE | 2023-11-05 11:37 | P.PN_ITS ---
Subjective 2 Subjective: off pressors, receiving 3rd unit PRBC Vitals/I&O/Wt Last Vital Signs Temp 99.6 F 11/05/23 08:00 Pulse 106 H 11/05/23 10:30 Resp 14 11/05/23 10:57 BP 104/45 11/05/23 10:30 Pulse Ox 94 11/05/23 10:57 O2 Del Method Mechanical Ventilation 11/05/23 08:40 O2 Flow Rate 8 11/04/23 12:52 FiO2 30 11/05/23 10:57 11/04/23 11/05/23 11/05/23 22:59 06:59 14:59 Intake Total 300 / 823.817 363.344 / 1187.161 150 / 150 Output Total 125 / 1525 30 / 1555 Balance 175 / -701.183 333.344 / -367.839 150 / 150 Weight last 48 hrs Weight 104.5 kg Weight 104.5 kg Weight 105 kg Weight 103.873 kg Physical Exam 2 Urinary Catheter Management: Fuentes: Cath Placed During This Visit: yes Reason for Continuing Indwelling Catheter: Accurate Measurement of Urinary Output in Critically Ill Patients Urinary Catheter Date of Insertion: 10/27/23 Urinary Catheter Time of Insertion: 09:00 Data 11/05/23 09:11 11/05/23 04:24 Other data: seen via telemedicine with assistance of RN at bedside A&P Assessment and plan (1) ESRD (end stage renal disease) on dialysis: 1. ESRD, fluid overload. Will provide isolated UF today for 2.5L as BP tolerates over 3h 2. s/p completion Left BKA yesterday 3. Anemia, s/p transfusion 2u pRBC during OR, 3rd unit today Discussed with Dr Rodriguez Plan see above Attestations 2 Medical Necessity Statement*: critically ill in ICU Coding Level of Care Code Acute Code for Chg Fwd Diagnoses ESRD (end stage renal disease) on dialysis N18.6; Z99.2
[2023-11-05 12:30] LABS: Glucose Point of Care 93 mg/dL (70-110)
[2023-11-05] MEDS: heparin, porcine 1,000 unit/mL INJ 10 mL 10000 UNIT INTRACATH (15:14)
--- NOTE | 2023-11-05 16:22 | PC.NURSE ---
Patient extubated 1615. 6L NC in place
[2023-11-05 17:25] LABS: Glucose Point of Care 114 mg/dL (70-110)
[2023-11-05] MEDS: vancomycin 1,000 MG in sodium chloride 0.9% 250 ML 250 MG IV (17:31)
--- NOTE | 2023-11-05 17:42 | PC.NURSE ---
Wasted Fentanyl and Propofol see JUL, witnessed by Jovanny DAVIS
[2023-11-05] MEDS: HYDROcodone-acetaminophen 7.5-325 mg Tablet 1 TAB PO (19:25)
[2023-11-05] MEDS: OLANZapine 5 mg ODT PO (20:46)
[2023-11-05 20:54] LABS: Glucose Point of Care 125 mg/dL (70-110)
[2023-11-05] MEDS: HYDROmorphone 1 mg/mL INJ 1 mL IVP (22:37)
[2023-11-06] VITALS (47 sets, daily range): BP systolic 91–120; BP diastolic 43–62; PULSE 93–115; RESP 10–24; TEMP 36.2–37.3; O2SAT 71–96
[2023-11-06] MEDS: ipratropium-albuterol 3 mL Neb INHALATION ×4 (02:23→20:07)
[2023-11-06] MEDS: heparin 5,000 unit/mL INJ 1 mL 5000 UNIT SUBCUT ×2 (05:04→17:17)
[2023-11-06] MEDS: amiodarone 200 mg Tablet PO ×2 (05:04→17:22)
[2023-11-06 05:09] LABS: ABG PCO2 38.1 mmHg (35-45); ABG PH Result 7.42 (7.35-7.45); Alveolar-Arterial Oxygen Gradi 5.1 mmHg (5-10); Arterial Blood Gas Hematocrit 27.8 % (42-52); Blood Gas Sample Site Brachial, left; Blood Gas Sample Type Arterial; Carboxyhemoglobin 2.1 %THgb (0.4-20.1); HCO3 ABG 24.4 mmol/L (22-26); HGB O2 Sat 90.5 % (95-100); Ionized Calcium Level - ABG 1.1 mmol/L (1.1-1.4); Methemoglobin 0.9 % (0.4-1.5); Oxygen Device NC; Oxygen Saturation ABG 93.3; Potassium Level - ABG 4.1 mmol/L (3.5-5.0); Total Hemoglobin 9.1 g/dL (14-18)
[2023-11-06] MEDS: HYDROmorphone 1 mg/mL INJ 1 mL IVP ×2 (05:12→20:30)
[2023-11-06 05:39] LABS: Basophils # 0.1 10^3/uL (0.0-0.1); Basophils % 0.7 %; Eosinophils # 0.1 10^3/uL (0.0-0.8); Eosinophils % 1.1 %; Hematocrit 30.8 % (37-53); Lymphocytes # 2.5 10^3/uL (0.8-4.8); Lymphocytes % 32.9 %; Mean Corpuscular HGB Conc 30.8 g/dL (30-55); Mean Corpuscular Hemoglobin 28.4 pg (27-33); Mean Corpuscular Volume 92.2 fl (82-101); Mean Platelet Volume 11.7 fL (7.4-10.4); Monocytes # 0.5 10^3/uL (0.2-0.9); Monocytes % 6.1 %; Neutrophils # 4.38 10^3/uL (1.8-7.7); Neutrophils % 58.4 %; Nucleated Red Blood Cells % 0 %; Platelet Count 131 10^3/cmm (157-399); Red Blood Count 3.34 10^6/uL (3.85-5.65); Red Cell Distribution Width 17.8 % (12.1-15.1)
[2023-11-06 05:57] LABS: Alanine Aminotransferase < 5 U/L (0-41); Alkaline Phosphatase 260 U/L (40-130); Anion Gap 21.2 (5-19); Aspartate Amino Transferase 16 U/L (0-40); Blood Urea Nitrogen 40 mg/dL (8-23); Calcium 8.2 mg/dL (8.5-10.5); Carbon Dioxide 22 mmol/L (22-29); Chloride 101 mmol/L (98-107); Glomerular Filtration Rate 13.8 mL/min (90-130); Glucose 98 mg/dL (65-115); Osmolality Calculated 300 mOsm/kg (285-295); Phosphorus 2.8 mg/dL (2.5-4.5); Potassium 4.2 mmol/L (3.5-5.1); Sodium 140 mmol/L (136-145); Total Bilirubin 0.8 mg/dL (0.15-1.2)
[2023-11-06 06:02] LABS: Creatinine Clr Calc Pharmacy 22.0606
[2023-11-06 06:24] LABS: Slide Review Slide Review Perform
--- NOTE | 2023-11-06 07:00 | XRR_ITS ---
PROCEDURE INFORMATION: Exam: XR Chest Exam date and time: 11/06/2023 7:59 AM Age: 62 years old Clinical indication: Condition or disease; Lung condition and disease; Pneumonia; Additional info: Pna TECHNIQUE: Imaging protocol: Radiologic exam of the chest. Views: 1 view. COMPARISON: CR (CHEST, ) 11/04/2023 11:32 PM FINDINGS: Tubes, catheters and devices: Dual lumen catheter is seen on the right. Lungs: There are bilateral infiltrates worse on the right. Pleural spaces: There are bilateral pleural effusions worse on the right. No pneumothorax is appreciated. Heart/Mediastinum: The heart is enlarged. There is calcified plaque involving the aorta. Bones/joints: Unremarkable. XR/XR chest 1V portable [id number] IMPRESSION: 1. Cardiomegaly with bilateral infiltrates and effusions worse on the right. Findings are similar to minimally worse when compared to prior exam.
[2023-11-06 07:43] LABS: Glucose Point of Care 113 mg/dL (70-110)
--- NOTE | 2023-11-06 07:51 | PM.PN ---
Subjective Subjective: seen and examined in ICU. awake, weak. no sob or cp or ross. on nc 02. BP low Medications: Reviewed: Yes Medication Review Details: Current Medications Acetaminophen (Acetaminophen 325 Mg Tablet) 650 mg PO Q6H PRN PRN Reason: MILD PAIN Last Admin: 10/28/23 20:55 Dose: 650 mg Hydrocodone Bitart/Acetaminophen (Hydrocodone-Acetaminophen 7.5-325 Mg Tablet) 1 tab PO Q4H PRN PRN Reason: MODERATE PAIN Last Admin: 11/05/23 19:25 Dose: 1 tab Albuterol Sulfate (Albuterol 2.5 Mg/3 Ml Neb) 2.5 mg INHALATION ONCE PRN PRN Reason: WHEEZING Albuterol/Ipratropium (Ipratropium-Albuterol 3 Ml Neb) 3 ml INHALATION Q6H.RESP JAIDEN Last Admin: 11/06/23 02:23 Dose: 3 ml Amiodarone HCl (Amiodarone 200 Mg Tablet) 200 mg PO QAM JAIDEN Last Admin: 11/06/23 05:04 Dose: 200 mg Budesonide (Budesonide 0.5 Mg/2 Ml Neb) 0.5 mg INHALATION BID.RESPIRATORY JAIDEN Last Admin: 11/05/23 21:07 Dose: 0.5 mg Clopidogrel Bisulfate (Clopidogrel 75 Mg Tablet) 75 mg PO DAILY [facility] Last Admin: 11/02/23 08:42 Dose: 75 mg Diphenhydramine HCl (Diphenhydramine 50 Mg/Ml Sdv 1ml) 12.5 mg IVP ONCE PRN PRN Reason: Postop N/V Diphenhydramine HCl (Diphenhydramine 50 Mg/Ml Sdv 1ml) 12.5 mg IVP ONCE PRN PRN Reason: PONV Docusate Sodium (Docusate Sodium 100 Mg Capsule) 100 mg PO BID [facility] Last Admin: 11/05/23 17:17 Dose: Not Given Famotidine (Famotidine 20 Mg/2 Ml Inj) 20 mg IVP ONCE PRN PRN Reason: HEARTBURN Fentanyl (Fentanyl 50 Mcg/Ml Inj 2ml) 50 mcg IVP ONCE PRN PRN Reason: Preop Pain Gabapentin (Gabapentin 100 Mg Capsule) 100 mg PO BID [facility] Last Admin: 11/05/23 17:38 Dose: 100 mg Glucagon (Glucagon 1 Mg/Ml Kit 1 Ml) 1 mg IM ONCE PRN; Protocol PRN Reason: Adult Acute Hypoglycemia Nursing Prot. Heparin Sodium (Porcine) (Heparin 5,000 Unit/Ml Inj 1 Ml) 5,000 unit SUBCUT Q12H JAIDEN Last Admin: 11/06/23 05:04 Dose: 5,000 unit Hydromorphone HCl (Hydromorphone 1 Mg/Ml Inj 1 Ml) 0.5 mg IVP ONCE PRN PRN Reason: For preop pain/anxiety Hydromorphone HCl (Hydromorphone 1 Mg/Ml Inj 1 Ml) 0.5 mg IVP ONCE PRN PRN Reason: Phase II postop pain Hydromorphone HCl (Hydromorphone 1 Mg/Ml Inj 1 Ml) 1 mg IVP Q3H PRN PRN Reason: PAIN Last Admin: 11/06/23 05:12 Dose: 1 mg Dextrose (D5w) 500 mls @ 0 mls/hr IV ONCE PRN; Protocol PRN Reason: Adult Acute Hypoglycemia Prot Dextrose (D10w) 125 mls @ 750 mls/hr IV PRN PRN; Protocol PRN Reason: Adult Acute Hypoglycemia Nursing Protocol Dextrose (D10w) 250 mls @ 1,000 mls/hr IV PRN PRN; Protocol PRN Reason: Adult Acute Hypoglycemia Nursing Protocol Meropenem 500 mg/ Sodium (Chloride) 50 mls @ 100 mls/hr IV Q12H [facility]; Protocol Last Infusion: 11/06/23 01:34 Dose: Infused Vancomycin HCl 1,000 mg/ (Sodium Chloride) 250 mls @ 250 mls/hr IV DIALYSIS JAIDEN Last Infusion: 11/05/23 20:53 Dose: Infused Albumin Human (Albumin) 12.5 gm in 50 mls @ 60 mls/hr IV PRN PRN PRN Reason: Hypotension and/or symptomatic Last Infusion: 11/05/23 15:21 Dose: Infused Albumin Human (Albumin) 12.5 gm in 50 mls @ 60 mls/hr IV PRN PRN PRN Reason: Hypotension and/or symptomatic Propofol (Diprivan) 1,000 mg in 100 mls @ 0 mls/hr IV .Q0M JAIDEN; Protocol Last Titration: 11/05/23 17:42 Dose: Infused Norepinephrine Bitartrate (Levophed) 4 mg in 250 mls @ 0 mls/hr IV .Q0M JAIDEN; Protocol Last Titration: 11/06/23 01:35 Dose: 0 mcg/min, 0 mls/hr Fentanyl (Sublimaze) 1,000 mcg in 100 mls @ 0 mls/hr IV .Q0M JAIDEN; Protocol Last Titration: 11/05/23 17:41 Dose: Infused Sodium Chloride (Sodium Chloride 0.9%) 1,000 mls @ 0 mls/hr IV .Q0M PRN PRN Reason: hypotension or symptomatic Insulin Human Lispro (Insulin Lispro 100 Unit/1 Ml) 0 unit SUBCUT WM&BEDTIME [facility]; Protocol Last Admin: 11/06/23 07:48 Dose: Not Given Ipratropium [place] (Ipratropium 0.5 Mg/2.5 Ml Neb) 0.5 mg INHALATION ONCE PRN PRN Reason: WHEEZING Metoprolol Succinate (Metoprolol Succinate Er (24 Hr) 25 Mg Tablet) 25 mg PO DAILY [facility] Last Admin: 11/05/23 08:04 Dose: 25 mg Midazolam HCl (Midazolam 1 Mg/Ml Inj 2 Ml) 2 mg IVP ONCE PRN PRN Reason: Preop Anxiety Midodrine (Midodrine 5 Mg Tablet) 10 mg PO TID [facility] Last Admin: 11/05/23 20:46 Dose: 10 mg Morphine Sulfate (Morphine 4 Mg/Ml Sdv 1 Ml) 1 mg IVP Q4H PRN PRN Reason: SEVERE PAIN Last Admin: 11/03/23 21:21 Dose: 1 mg Olanzapine (Olanzapine 5 Mg Odt) 5 mg PO BEDTIME [facility] Last Admin: 11/05/23 20:46 Dose: 5 mg Ondansetron HCl (Ondansetron 2 Mg/Ml Sdv 2 Ml) 4 mg IVP Q6H PRN PRN Reason: NAUSEA AND VOMITING Ondansetron HCl (Ondansetron 2 Mg/Ml Sdv 2 Ml) 4 mg IVP ONCE PRN PRN Reason: NAUSEA AND VOMITING Oxycodone HCl (Oxycodone 5 Mg Ir Tab/Cap) 5 mg PO Q4H PRN PRN Reason: MODERATE PAIN Last Admin: 11/04/23 11:29 Dose: 5 mg Pantoprazole Sodium (Pantoprazole 40 Mg Sdv) 40 mg IVP DAILY [facility] Last Admin: 11/05/23 08:04 Dose: 40 mg Polyethylene Glycol (Polyethylene Glycol 3350 Pkt 17 Gm) 17 gm PO DAILY JAIDEN Last Admin: 11/05/23 08:00 Dose: Not Given Scopolamine (Scopolamine 1.5 Patch) 1 patch TRANSDERMA ONCE PRN PRN Reason: Nausea/ Vomiting Prophylaxis Sodium Chloride (Sodium Chloride 0.9% 100 Ml Bag) 50 ml IV PRN PRN PRN Reason: Blood transfusion prime and flush Stop: 11/06/23 11:28 Vitals/I&O/Wt Last Vital Signs Temp 99.2 F 11/06/23 02:00 Pulse 101 H 11/06/23 05:43 Resp 19 H 11/06/23 05:12 BP 117/49 11/06/23 04:00 Pulse Ox 95 11/06/23 05:12 O2 Del Method Nasal Cannula 11/06/23 02:24 O2 Flow Rate 4 11/06/23 02:24 FiO2 30 11/05/23 15:59 11/05/23 11/06/23 11/06/23 22:59 06:59 14:59 Intake Total 1024.875 / 1591.600 136 / 1727.600 Output Total 3000 / 3000 40 / 3040 Balance -1975.125 / -1408.400 96 / -1312.400 Weight last 48 hrs Weight 102 kg Weight 102 kg Weight 102.5 kg Weight 104.5 kg Weight 104.5 kg Weight 105 kg Physical Exam Narrative: General exam He is off of pressors. He is using nasal cannula oxygen, he is awake, BP on low side ill appearing in bed HEENT: Atraumatic and normocephalic. Neck is supple Right ACW permacath Heart- irregular, tachycardic + s1, s2 Lungs- crackleses b/l Abdomen is soft NT, ND + Fuentes Extremities no cyanosis clubbing. trace to 1+ RLE Edema, LLE bandaged BKA rt foot some toes amputated Neuro: awake and interactive. exam by RN- telehealth exam Urinary Catheter Management: Fuentes: Cath Placed During This Visit: yes Reason for Continuing Indwelling Catheter: Accurate Measurement of Urinary Output in Critically Ill Patients Urinary Catheter Date of Insertion: 10/27/23 Urinary Catheter Time of Insertion: 09:00 Data 11/06/23 05:00 11/06/23 05:00 A&P Assessment and plan (1) ESRD (end stage renal disease) on dialysis: 62 yr old man 1. ESRD- HD MWF. he is off schedule- attempt HD today s/p SUF yesterday -as BP low. hold dialysis today. HD tomorrow 11-07-23 2. renal dose abx- check vanco level. keep trough under 19. h/o endocarditis -per hospitalist - to stop abx today 3. DM control 4.PVD w/ occluded L SFA- per surgery and cardiology- appreciate Dr Hunt of vascular- s/p LLE BKA on 10/28/23 w/ revision on 11/04/23 5. anemia- hgb stable- s/p multiple units blood tx - stop CHUCK w/ PE as CHUCK is a hypercoaguable agent 6. paroxysmal a fib per medicine and cardiology 7. hypercapneic resp acidosis 8. replace vit d. no vit d analouge- pth 114 9. replace phos as needed discussed w/ pt, RN seen w/ AV machine and exam by RN as telehealth visit Plan see above Attestations Medical Necessity Statement*: esrd, hypotensive, anemia, BKA Time Spent in Patient Care: 16 - 35 minutes (>than 50% of time spent in counselling and/or direct pt care on unit). Coding Level of Care Code Acute Code for Chg Fwd Diagnoses ESRD (end stage renal disease) on dialysis N18.6; Z99.2
[2023-11-06] MEDS: docusate sodium 100 mg Capsule PO ×2 (08:35→17:22)
[2023-11-06] MEDS: metoprolol succinate ER (24 HR) 25 mg Tablet PO (08:35)
[2023-11-06] MEDS: gabapentin 100 mg Capsule PO ×2 (08:35→17:22)
[2023-11-06] MEDS: polyethylene glycol 3350 Pkt 17 gm PO (08:36)
[2023-11-06] MEDS: midodrine 5 mg TABLET 10 MG PO ×3 (08:36→20:27)
[2023-11-06] MEDS: pantoprazole 40 mg SDV IVP (08:55)
--- NOTE | 2023-11-06 09:19 | PC.NURSE ---
awake responds to questions at this time am meds given and diet ordered at this time lungs with decreased breath sounds
[2023-11-06] MEDS: budesonide 0.5 mg/2 mL Neb INHALATION ×2 (09:26→20:07)
--- NOTE | 2023-11-06 09:57 | P.PN_ITS ---
Subjective 2 Subjective: Patient is awake and alert He was successfully extubated to nasal cannula 6 L yesterday 11/04 Patient is awake and alert able to communicate Minimal output in Fuentes catheter Plan for dialysis today Monitor in ICU in case he would require Levophed again Patient had decided against any anticoagulating agent hemoglobin this morning is 9.5 Vitals/I&O/Wt Last Vital Signs Temp 97.2 F L 11/06/23 06:00 Pulse 115 H 11/06/23 09:15 Resp 18 11/06/23 09:15 BP 105/47 11/06/23 08:00 Pulse Ox 95 11/06/23 09:15 O2 Del Method Nasal Cannula 11/06/23 09:15 O2 Flow Rate 4 11/06/23 09:15 FiO2 30 11/05/23 15:59 11/05/23 11/06/23 11/06/23 22:59 06:59 14:59 Intake Total 1024.875 / 1591.600 136 / 7150.645 5074 / 1000 Output Total 3000 / 3000 40 / 3040 Balance -1975.125 / -1408.400 96 / -9883.139 6027 / 1000 Weight last 48 hrs Weight 102 kg Weight 102 kg Weight 102.5 kg Weight 104.5 kg Weight 104.5 kg Weight 105 kg Physical Exam 2 Narrative: Left leg stump covered with dressing Currently requiring 4 to 5 L of nasal cannula Minimal output in the Fuentes catheter Abdomen distended but soft Right leg lymphedema with venous stasis dermatitis Multiple staged sacral and buttocks ulcer Fluctuating between A-fib and sinus tachycardia Able to answer questions Urinary Catheter Management: Fuentes: Cath Placed During This Visit: yes Reason for Continuing Indwelling Catheter: Accurate Measurement of Urinary Output in Critically Ill Patients Urinary Catheter Date of Insertion: 10/27/23 Urinary Catheter Time of Insertion: 09:00 Data 11/06/23 05:00 11/06/23 05:00 A&P Assessment and plan (1) CHF exacerbation: (2) Endocarditis: Qualifiers: Chronicity: unspecified Endocarditis type: infective Infective endocarditis organism: bacterial Qualified Code(s): I33.0 - Acute and subacute infective endocarditis (3) Afib: (4) Tachycardia: (5) Atherosclerosis of left lower extremity with gangrene: (6) Thrombocytopenia: (7) DVT (deep venous thrombosis): (8) Pulmonary embolism: (9) DM2 (diabetes mellitus, type 2): (10) ESRD (end stage renal disease) on dialysis: (11) Anemia: (12) Cellulitis: (13) Sacral wound: (14) Wound of left lower extremity: Qualifiers: Encounter type: sequela Qualified Code(s): S81.802S - Unspecified open wound, left lower leg, sequela (15) Acute encephalopathy: (16) COPD (chronic obstructive pulmonary disease): (17) Pneumonia: (18) Acute respiratory failure: Plan Perioperative respiratory failure complication 11/03 Patient extubated 11/04 to nasal cannula Acute on chronic GI blood loss anemia status post PRBC Required 3 units PRBC, hemoglobin stable today Not a candidate for anticoagulation End Stage renal disease: Plan for dialysis today Revision of left below-knee amputation 11/03 No fever or leukocytosis Cultures negative Discontinue vancomycin meropenem most likely on 11/06, he can get oral antibiotics for UTI as well A-fib RVR May increase amiodarone dose to twice daily Not a candidate of anticoagulation secondary to significant GI bleed requiring blood transfusion New onset DVT and PE: Heparin on hold secondary to anemia, Seems like he wont be a good candidate for anticoagulating agent because of multiple blood transfusions If blood pressure stays stable after dialysis will be able to transfer out of ICU to [facility] [place] Will plan his discharge in next 20 to 24 hours, will touch base with case management DVT prophylaxis: Heparin Attestations 2 Medical Necessity Statement*: Possible discharge in next 24 to 48 hours Diagnoses CHF exacerbation I50.9 Endocarditis I33.0 Chronicity: unspecified Endocarditis type: infective Infective endocarditis organism: bacterial Afib I48.91 Tachycardia R00.0 Atherosclerosis of left lower extremity with gangrene I70.262 Thrombocytopenia D69.6 DVT (deep venous thrombosis) I82.409 Pulmonary embolism I26.99 DM2 (diabetes mellitus, type 2) E11.9 ESRD (end stage renal disease) on dialysis N18.6; Z99.2 Anemia D64.9 Cellulitis L03.90 Sacral wound S31.000A Wound of left lower extremity, sequela S81.802S Encounter type: sequela Acute encephalopathy G93.40 COPD (chronic obstructive pulmonary disease) J44.9 Pneumonia J18.9 Acute respiratory failure J96.00
[2023-11-06] MEDS: meropenem 500 MG in sodium chloride 0.9% (plus) 50 ML 100 MG IV ×2 (10:03→22:59)
[2023-11-06] MEDS: HYDROcodone-acetaminophen 7.5-325 mg Tablet 1 TAB PO ×3 (10:44→17:44)
[2023-11-06 11:06] LABS: Glucose Point of Care 116 mg/dL (70-110)
--- NOTE | 2023-11-06 15:35 | PM.PN ---
Subjective Subjective: Patient seen and examined. Pain controlled Vitals/I&O/Wt Last Vital Signs Temp 97.3 F L 11/06/23 12:00 Pulse 112 H 11/06/23 15:26 Resp 18 11/06/23 15:15 BP 100/53 11/06/23 12:00 Pulse Ox 96 11/06/23 15:15 O2 Del Method Nasal Cannula 11/06/23 15:15 O2 Flow Rate 4 11/06/23 15:15 FiO2 30 11/05/23 15:59 11/06/23 11/06/23 11/06/23 06:59 14:59 22:59 Intake Total 136 / 4844.279 2679 / 1500 Output Total 40 / 3040 Balance 96 / -9749.892 0350 / 1500 Weight last 48 hrs Weight 224 lb 13.944 oz Weight 224 lb 13.944 oz Weight 225 lb 15.581 oz Weight 230 lb 6.129 oz Weight 230 lb 6.129 oz Physical Exam Narrative: General: No acute distress, awake alert and oriented x 3 Skin: Left below-knee amputation incision intact without erythema or exudate, there is still that wound in the center of his closure that was present on the flap before surgery. There is no erythema or exudate here Urinary Catheter Management: Fuentes: Cath Placed During This Visit: yes Reason for Continuing Indwelling Catheter: Accurate Measurement of Urinary Output in Critically Ill Patients Urinary Catheter Date of Insertion: 10/27/23 Urinary Catheter Time of Insertion: 09:00 Data 11/06/23 05:00 11/06/23 05:00 A&P Assessment and plan (1) Atherosclerosis of left lower extremity with gangrene: Plan Postoperative day #2 status post completion left below-knee amputation I still have some concern about wound healing given the fact that I had to close with a posterior flap that had a wound in the center. He appears to be healing relatively well however Daily dry dressing changes Medical management per hospitalist Attestations Medical Necessity Statement*: Per primary Coding Level of Care Code Acute Code for [facility] Diagnoses Atherosclerosis of left lower extremity with gangrene I70.262
[2023-11-06 17:32] LABS: Glucose Point of Care 115 mg/dL (70-110)
[2023-11-06] MEDS: morphine 4 mg/mL SDV 1 mL 1 MG IVP (19:29)
--- NOTE | 2023-11-06 19:32 | PC.NURSE ---
Morphine: Attempted to give 1mg Morphine and bot IVs had infiltrated. First 3mg wasted w/ SUSAN QUINTERO, last 1mg wasted w. SUSAN Hector. Two new IVs started and new vile of Morphine pulled from [facility], 3mg wasted w/ SUSAN Hector.
[2023-11-06] MEDS: OLANZapine 5 mg ODT PO (20:27)
[2023-11-06] MEDS: insulin lispro 100 unit/1 mL SUBCUT (20:28)
[2023-11-07] VITALS (51 sets, daily range): BP systolic 91–118; BP diastolic 42–70; PULSE 92–112; RESP 9–21; TEMP 36.6–36.9; O2SAT 89–100
[2023-11-07] MEDS: ipratropium-albuterol 3 mL Neb INHALATION ×2 (01:56→07:45)
[2023-11-07] MEDS: heparin 5,000 unit/mL INJ 1 mL 5000 UNIT SUBCUT ×2 (04:00→15:36)
[2023-11-07 04:04] LABS: Glucose Point of Care 144 mg/dL (70-110)
[2023-11-07 04:22] LABS: Basophils % 0.5 %; Eosinophils # 0.1 10^3/uL (0.0-0.8); Eosinophils % 1.5 %; Hematocrit 27.1 % (37-53); Mean Corpuscular HGB Conc 30.3 g/dL (30-55); Mean Corpuscular Hemoglobin 28.6 pg (27-33); Mean Corpuscular Volume 94.4 fl (82-101); Mean Platelet Volume 11.6 fL (7.4-10.4); Monocytes # 0.4 10^3/uL (0.2-0.9); Monocytes % 6.2 %; Neutrophils # 4.45 10^3/uL (1.8-7.7); Neutrophils % 74.1 %; Nucleated Red Blood Cells % 0 %; Platelet Count 119 10^3/cmm (157-399); Red Blood Count 2.87 10^6/uL (3.85-5.65); Red Cell Distribution Width 17.2 % (12.1-15.1)
[2023-11-07 04:44] LABS: Alanine Aminotransferase < 5 U/L (0-41); Albumin Level 2.7 g/dL (3.5-5.2); Alkaline Phosphatase 262 U/L (40-130); Anion Gap 20.1 (5-19); Aspartate Amino Transferase 13 U/L (0-40); Blood Urea Nitrogen 47 mg/dL (8-23); Calcium 8.1 mg/dL (8.5-10.5); Carbon Dioxide 22 mmol/L (22-29); Chloride 103 mmol/L (98-107); Glomerular Filtration Rate 11.6 mL/min (90-130); Glucose 93 mg/dL (65-115); Osmolality Calculated 304 mOsm/kg (285-295); Phosphorus 3.9 mg/dL (2.5-4.5); Potassium 4.1 mmol/L (3.5-5.1); Sodium 141 mmol/L (136-145); Total Bilirubin 0.6 mg/dL (0.15-1.2); Total Protein 5.7 g/dL (6.6-8.7)
[2023-11-07 04:54] LABS: Creatinine Clr Calc Pharmacy 19.0327
[2023-11-07] MEDS: HYDROcodone-acetaminophen 7.5-325 mg Tablet 1 TAB PO ×3 (04:56→15:36)
[2023-11-07] MEDS: budesonide 0.5 mg/2 mL Neb INHALATION (07:45)
[2023-11-07 07:50] LABS: Glucose Point of Care 90 mg/dL (70-110)
[2023-11-07] MEDS: pantoprazole 40 mg SDV IVP (08:41)
[2023-11-07] MEDS: midodrine 5 mg TABLET 10 MG PO ×2 (08:41→15:36)
[2023-11-07] MEDS: polyethylene glycol 3350 Pkt 17 gm PO (08:41)
[2023-11-07] MEDS: amiodarone 200 mg Tablet PO ×2 (08:41→17:47)
[2023-11-07] MEDS: gabapentin 100 mg Capsule PO ×2 (08:42→17:47)
[2023-11-07] MEDS: docusate sodium 100 mg Capsule PO ×2 (08:42→17:47)
[2023-11-07] MEDS: metoprolol succinate ER (24 HR) 25 mg Tablet PO (08:42)
--- NOTE | 2023-11-07 09:03 | P.PN_ITS ---
Subjective 2 Subjective: Patient seen and examined. Pain controlled Vitals/I&O/Wt Last Vital Signs Temp 98.5 F 11/07/23 04:00 Pulse 108 H 11/07/23 07:45 Resp 20 H 11/07/23 07:45 BP 99/48 11/07/23 06:15 Pulse Ox 92 11/07/23 07:45 O2 Del Method Nasal Cannula 11/07/23 07:45 O2 Flow Rate 4 11/07/23 07:45 FiO2 30 11/05/23 15:59 11/06/23 11/07/23 11/07/23 22:59 06:59 14:59 Intake Total 400 / 1900 67.625 / 1967.625 Output Total 50 / 50 50 / 100 Balance 350 / 1850 17.625 / 1867.625 Weight last 48 hrs Weight 220 lb Weight 224 lb 13.944 oz Weight 224 lb 13.944 oz Weight 225 lb 15.581 oz Physical Exam 2 Narrative: General: No acute distress, awake alert and oriented x 3 Skin: Left below-knee amputation incision intact without erythema or exudate, there is still that wound in the center of his closure that was present on the flap before surgery. There is no erythema or exudate here Urinary Catheter Management: Fuentes: Cath Placed During This Visit: yes Reason for Continuing Indwelling Catheter: Accurate Measurement of Urinary Output in Critically Ill Patients Urinary Catheter Date of Insertion: 10/27/23 Urinary Catheter Time of Insertion: 09:00 Data 11/07/23 03:56 11/07/23 03:56 A&P Assessment and plan (1) Atherosclerosis of left lower extremity with gangrene: Plan Postoperative day #3 status post completion left below-knee amputation I still have some concern about wound healing given the fact that I had to close with a posterior flap that had a wound in the center. He appears to be healing relatively well however Daily dry dressing changes Medical management per hospitalist Attestations 2 Medical Necessity Statement*: Per primary Coding Level of Care Code Acute Code for [facility] Fw Diagnoses Atherosclerosis of left lower extremity with gangrene I70.262
--- NOTE | 2023-11-07 10:05 | PM.PN ---
Subjective Subjective: plan fpe HD today Medications: Reviewed: Yes Vitals/I&O/Wt Last Vital Signs Temp 98.5 F 11/07/23 04:00 Pulse 108 H 11/07/23 07:45 Resp 20 H 11/07/23 07:45 BP 99/48 11/07/23 06:15 Pulse Ox 92 11/07/23 07:45 O2 Del Method Nasal Cannula 11/07/23 07:45 O2 Flow Rate 4 11/07/23 07:45 FiO2 30 11/05/23 15:59 11/06/23 11/07/23 11/07/23 22:59 06:59 14:59 Intake Total 400 / 1900 67.625 / 1967.625 Output Total 50 / 50 50 / 100 Balance 350 / 1850 17.625 / 1867.625 Weight last 48 hrs Weight 99.79 kg Weight 102 kg Weight 102 kg Weight 102.5 kg Physical Exam Narrative: General exam He is off of pressors. He is using nasal cannula oxygen, he is awake, BP on low side ill appearing in bed HEENT: Atraumatic and normocephalic. Neck is supple Right ACW permacath Heart- irregular, tachycardic + s1, s2 Lungs- crackleses b/l Abdomen is soft NT, ND + Fuentes Extremities no cyanosis clubbing. trace to 1+ RLE Edema, LLE bandaged BKA rt foot some toes amputated Neuro: awake and interactive. exam by RN- telehealth exam Urinary Catheter Management: Fuentes: Cath Placed During This Visit: yes Reason for Continuing Indwelling Catheter: Accurate Measurement of Urinary Output in Critically Ill Patients Urinary Catheter Date of Insertion: 10/27/23 Urinary Catheter Time of Insertion: 09:00 Data 11/07/23 03:56 11/07/23 03:56 A&P Assessment and plan (1) ESRD (end stage renal disease) on dialysis: 62 yr old man 1. ESRD- HD MWF. HD today 2.h/o endocarditis, renal dose abx- check vanco level. keep trough under 19. 3. DM 4.PVD w/ occluded L SFA- per surgery and cardiology- appreciate Dr Hunt of vascular- s/p LLE BKA on 10/28/23 w/ revision on 11/04/23 5. anemia- hgb stable- s/p multiple units blood tx - stop CHUCK w/ PE as CHUCK is a hypercoaguable agent 6. paroxysmal a fib per medicine and cardiology 7. hypercapneic resp acidosis 8. replace vit d. no vit d analouge- pth 114 9. replace phos as needed discussed w/ pt, RN seen w/ AV machine and exam by RN as telehealth visit Plan see above Attestations Medical Necessity Statement*: [facility] Coding Level of Care Code Acute Code for Chg Fwd Diagnoses ESRD (end stage renal disease) on dialysis N18.6; Z99.2
--- NOTE | 2023-11-07 12:02 | PM.DCS ---
Discharge Providers Date of Admission: 10/27/23 11:03 Date of Discharge: November 07, 2023 Attending Provider at Admission: Lenny Montalvo MD Attending Provider at Discharge: Juventino Mancini MD Primary Care Provider: Misty Ibrahim Diagnoses at Discharge Discharge Diagnosis (1) ESRD (end stage renal disease) on dialysis: Status: Acute Reason for Visit Reason for Visit: fever Hospital Course Hospital Course 62-year-old male with chronic multiple comorbid conditions, DNR/DNI, end-stage renal disease, [facility] with chief complaint of fever tachypnea tachycardia and confusion he was diagnosed with sepsis source of infection was left lower extremity ulcer, general surgery was consulted after management evaluation of hyperkalemia, Dr. Baxter evaluated the patient who recommended below the knee amputation, please note recently patient was admitted for management evaluation of ischemic ulcer for which Dr. Dick was consulted and he recommended medical management of peripheral vascular disease. Patient almost a 2 weeks in the hospital with IV antibiotics throughout the hospitalization. At the time of discharge I am not continuing any antibiotics other than for wound prophylaxis with doxycycline. He has finished enough days on IV antibiotics in the hospital for his UTI coverage. Patient went for left below-knee amputation on 10/27, patient continued his dialysis as per the schedule, became anemic secondary to intrarenal disease required 2 unit PRBC during hospitalization, no active bleeding noted during hospitalization, given for staged revision of below-knee amputation on 11/03, posterior flap was used to cover the wound, Dr. Baxter is still concerned about healing of the wound recommending close follow-up with him in the clinic. Patient developed right leg DVT and pulmonary embolism during hospitalization, CTA confirmed these findings when he was tachypneic tachycardic requiring more oxygen than baseline 4 to 5 L. Patient has required multiple blood transfusion in the past patient is stating that he would like to continue with Eliquis low-dose 2.5 mg twice daily for now in case he noticed dark tarry stool on more anemic episodes then he may consider discontinuing it. I do believe patient will experience more complications in the future secondary to multiple comorbid conditions he is at high risk of readmissions, he carries a guarded prognosis, has been kept updated. [facility] will [facility]. At the time of discharge I have discontinued his metoprolol secondary to low blood pressure increase the dose of amiodarone to 200 mg twice daily and added Eliquis low-dose. During this hospitalization in total he required 4 units PRBC for blood transfusion required 1 unit at the time of admission and required 3 units intermittently during his stay in the hospital Physical Exam Narrative: Mild signs of fluid overload Right leg dermatitis with venous stasis Awake and alert Currently on 4 L Hemodynamically stable A-fib without RVR Urinary Catheter Management: Fuentes: Cath Placed During This Visit: yes Reason for Continuing Indwelling Catheter: Accurate Measurement of Urinary Output in Critically Ill Patients Urinary Catheter Date of Insertion: 10/27/23 Urinary Catheter Time of Insertion: 09:00 Discharge Data Studies Completed and Pending Completed Studies During Hospitalization Category Date Time Status CT head wo con* [id number] Stat Cat Scan 10/27/23 10:28 Completed CTA PE [CT angio chest PE protcl 63678] Routine Cat Scan 11/02/23 09:52 Completed CXRP [XR chest 1V portable [id number]] Stat Exams 11/02/23 07:46 Completed XR chest 1V 48299 Routine Exams 11/04/23 19:55 Completed XR chest 1V 76961 Routine Exams 11/04/23 23:02 Completed XR chest 1V portable [id number] Routine Exams 10/27/23 21:53 Completed XR chest 1V portable [id number] Routine Exams 10/30/23 07:59 Completed XR chest 1V portable [id number] Routine Exams 11/04/23 16:11 Completed XR chest 1V portable [id number] Routine Exams 11/06/23 07:00 Completed XR chest 1V portable [id number] Stat Exams 10/27/23 17:46 Completed XR chest 1V portable [id number] Stat Exams 10/27/23 18:42 Completed Pathology: Surgical [PTH] Routine Pth 10/28/23 15:37 [place] [id number] Routine Ultrasound 11/02/23 11:44 Completed Pending at discharge Category Date Time Status Arterial Blood Gas W/O Coox AM LABS Lab 11/06/23 04:00 Ordered Blood Culture Stat Lab 11/02/23 19:04 Results COVID [SARS Covid-2 Antigen] Routine Lab 11/07/23 09:28 Uncollected Complete Blood Count w/Auto AM LABS Lab 11/08/23 04:00 Ordered Complete Blood Count w/Auto AM LABS Lab 11/09/23 04:00 Ordered Comprehensive Metabolic Panel AM LABS Lab 11/08/23 04:00 Ordered Comprehensive Metabolic Panel AM LABS Lab 11/09/23 04:00 Ordered Magnesium AM LABS Lab 11/08/23 04:00 Ordered Magnesium AM LABS Lab 11/09/23 04:00 Ordered Phosphorus AM LABS Lab 11/08/23 04:00 Ordered Phosphorus AM LABS Lab 11/09/23 04:00 Ordered Sputum Culture and Gram Stain Routine Lab 11/04/23 16:50 Ordered Pathology: Surgical [PTH] Routine Pth 11/05/23 14:24 Received Radiology Impressions Head CT 10/27/23 10:28 IMPRESSION: 1. No acute intracranial hemorrhage or edema. 2. 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 Extensive small vessel ischemic disease in the RIGHT cerebellum greater than the LEFT. Stable since 08/12/2023. Chest CTA 11/02/23 09:52 IMPRESSION: 1. Several acute right segmental and subsegmental pulmonary emboli. 2. Additional details as above. ADDENDUM: 11/02/23 1144 ADDENDUM: THIS REPORT CONTAINS FINDINGS THAT MAY BE CRITICAL TO PATIENT CARE. The findings were verbally communicated via telephone conference with JUVENTINO MANCINI at 11:43 AM CDT on 11/02/2023. The findings were acknowledged and understood. Venous Duplex 11/02/23 11:44 IMPRESSION: DVT in the right popliteal vein, right peroneal vein, and right posterior tibial vein. Unknown age. ADDENDUM: 11/02/23 [id number] ADDENDUM: THIS REPORT CONTAINS FINDINGS THAT MAY BE CRITICAL TO PATIENT CARE. The findings were verbally communicated via telephone conference with JUVENTINO MANCINI at 1:46 PM CDT on 11/02/2023. The findings were acknowledged and understood. Chest X-Ray 11/06/23 07:00 IMPRESSION: 1. Cardiomegaly with bilateral infiltrates and effusions worse on the right. Findings are similar to minimally worse when compared to prior exam. Laboratory Results WBC 6.00 10^3/uL (3.29-11.43) 11/07/23 03:56 RBC 2.87 10^6/uL (3.85-5.65) L 11/07/23 03:56 Hgb 8.20 g/dL (11.27-16.99) L 11/07/23 03:56 Hct 27.1 % (37-53) L 11/07/23 03:56 MCV 94.4 fl (82-101) 11/07/23 03:56 MCH 28.6 pg (27-33) 11/07/23 03:56 MCHC 30.3 g/dL (30-55) 11/07/23 03:56 RDW 17.2 % (12.1-15.1) H 11/07/23 03:56 Plt Count 119 10^3/cmm (157-399) L 11/07/23 03:56 MPV 11.6 fL (7.4-10.4) H 11/07/23 03:56 Neut % (Auto) 74.1 % 11/07/23 03:56 Lymph % (Auto) 17.0 % 11/07/23 03:56 [place] % (Auto) 6.2 % 11/07/23 03:56 Eos % (Auto) 1.5 % 11/07/23 03:56 Baso % (Auto) 0.5 % 11/07/23 03:56 Neut # (Auto) 4.45 10^3/uL (1.8-7.7) 11/07/23 03:56 Lymph # (Auto) 1.0 10^3/uL (0.8-4.8) 11/07/23 03:56 [place] # (Auto) 0.4 10^3/uL (0.2-0.9) 11/07/23 03:56 Eos # (Auto) 0.1 10^3/uL (0.0-0.8) 11/07/23 03:56 Baso # (Auto) 0.0 10^3/uL (0.0-0.1) 11/07/23 03:56 Nucleated RBC % (auto) 0 % 11/07/23 03:56 Nucleated RBCs # 0.0 /100WBC 11/07/23 03:56 PT 14.70 SECONDS (12.1-14.9) 11/04/23 02:46 INR 1.11 (0.8-1.2) 11/04/23 02:46 APTT 96.6 SECONDS (23.9-36.7) H 11/04/23 02:46 APTT Cancelled 11/04/23 02:46 Fibrinogen 352 mg/dL (174-498) 11/04/23 02:46 D-Dimer 9.25 ug/mLFEU (0-0.59) H 11/02/23 09:16 Specimen Type Arterial 11/06/23 04:58 Sample Site Brachial, left 11/06/23 04:58 ABG pH 7.42 (7.35-7.45) 11/06/23 04:58 ABG pCO2 38.1 mmHg (35-45) 11/06/23 04:58 ABG pO2 63.0 mmHg (80.0-100.0) L 11/06/23 04:58 ABG PO2/FiO2 Ratio 0 11/05/23 04:10 ABG HCO3 24.4 mmol/L (22-26) 11/06/23 04:58 ABG O2 Saturation 93.3 11/06/23 04:58 ABG Base Excess 0.0 mmol/L (-2.0-2.0) 11/06/23 04:58 Van Test N/a 11/06/23 04:58 A-a O2 Gradient 5.1 mmHg (5-10) 11/06/23 04:58 Hematocrit 27.8 % (42-52) L 11/06/23 04:58 Hgb O2 Saturation 90.5 % (95-100) L 11/06/23 04:58 Carboxyhemoglobin 2.1 %THgb (0.4-20.1) 11/06/23 04:58 Methemoglobin 0.9 % (0.4-1.5) 11/06/23 04:58 Total Hemoglobin 9.1 g/dL (14-18) L 11/06/23 04:58 Sodium 142.0 mmol/L (131-143) 11/06/23 04:58 Potassium 4.1 mmol/L (3.5-5.0) 11/06/23 04:58 Glucose 106.0 mg/dL (70-115) 11/06/23 04:58 Ionized Calcium 1.1 mmol/L (1.1-1.4) 11/06/23 04:58 O2 Delivery Device Nc 11/06/23 04:58 O2 Liters/Min 4.0 % 11/06/23 04:58 FiO2 60.0 % 11/05/23 04:10 Tidal Volume 0.50 11/04/23 16:58 PEEP 6.0 cmH20 11/05/23 04:10 [employer]el 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[employer] ID [email or web address] 11/06/23 04:58 Sodium 141 mmol/L (136-145) 11/07/23 03:56 Potassium 4.1 mmol/L (3.5-5.1) 11/07/23 03:56 Chloride 103 mmol/L (98-107) 11/07/23 03:56 Carbon Dioxide 22 mmol/L (22-29) 11/07/23 03:56 Anion Gap 20.1 (5-19) H 11/07/23 03:56 BUN 47 mg/dL (8-23) H 11/07/23 03:56 Creatinine 5.1 mg/dL (0.7-1.2) H 11/07/23 03:56 GFR Calculation 11.6 mL/min (90-130) L 11/07/23 03:56 Glucose 93 mg/dL (65-115) 11/07/23 03:56 POC Glucose 90 mg/dL (70-110) 11/07/23 07:19 Calculated Osmolality 304 mOsm/kg (285-295) H 11/07/23 03:56 Lactic Acid 1.5 mmol/L (0.5-2.2) 10/27/23 08:17 Uric Acid 4.9 mg/dL (3.4-7.0) 10/27/23 12:10 Calcium 8.1 mg/dL (8.5-10.5) L 11/07/23 03:56 Phosphorus 3.9 mg/dL (2.5-4.5) 11/07/23 03:56 Magnesium 2.0 mg/dL (1.7-2.3) 11/07/23 03:56 Iron 69 ug/dL (59-158) 10/28/23 04:29 TIBC 115 mcg/dl 10/28/23 04:29 % Saturation 60.0 % (20-50) H 10/28/23 04:29 Unsat Iron Binding 46 ug/dL (112-347) L 10/28/23 04:29 Ferritin 2687 ng/mL (30-400) H 10/28/23 04:29 Total Bilirubin 0.6 mg/dL (0.15-1.2) 11/07/23 03:56 AST 13 U/L (0-40) 11/07/23 03:56 ALT < 5 U/L (0-41) 11/07/23 03:56 Alkaline Phosphatase 262 U/L (40-130) H 11/07/23 03:56 Creatine Kinase 450 U/L (39-308) H* 10/27/23 08:17 Total Protein 5.7 g/dL (6.6-8.7) L 11/07/23 03:56 Albumin 2.7 g/dL (3.5-5.2) L 11/07/23 03:56 Globulin 3.0 g/dL (1.3-4.6) 11/07/23 03:56 25-OH Vitamin D Total 27 ng/mL (30-100) L 10/28/23 04:29 PTH Intact 114.3 pg/mL (15-65) H 10/28/23 04:29 Calcium (PTH Intact) 7.8 mg/dL (8.5-10.5) L 10/28/23 04:29 Urine Color Yellow (Yellow) 10/27/23 11:12 Urine Appearance Cloudy (CLEAR) A 10/27/23 11:12 Urine pH 5 (5-7) 10/27/23 11:12 Ur Specific [place] 1.020 (1.005-1.030) 10/27/23 11:12 Urine Protein 3+ (Negative) H 10/27/23 11:12 Urine Glucose (UA) Norm (Normal) 10/27/23 11:12 Urine Ketones 1+ (Negative) H 10/27/23 11:12 Urine Blood 3+ (Negative) H 10/27/23 11:12 Urine Nitrate Positive (Negative) H 10/27/23 11:12 Urine Bilirubin 1+ (Negative) H 10/27/23 11:12 Urine Urobilinogen 1 mg/dL (Negative) H 10/27/23 11:12 Ur Leukocyte Esterase 2+ (Negative) H 10/27/23 11:12 Urine RBC 15-25 /hpf (0-2) H 10/27/23 11:12 Urine WBC Too numerous to cnt /hpf (0-5) H 10/27/23 11:12 Ur Squamous Epith Cells 0-4 /hpf (0-5) H 10/27/23 11:12 Amorphous Sediment Not Reportable 10/27/23 11:12 Urine Bacteria 3+ /hpf (NONE) H 10/27/23 11:12 Urine Yeast 1+ /hpf H 10/27/23 11:12 Vancomycin Trough 25.8 ug/mL (10-15) H* 10/31/23 20:17 Random Vancomycin 17.1 ug/mL (20.0-40.0) L 11/04/23 02:46 Adenovirus (PCR) Not detected (NOT DETECT) 10/27/23 11:20 C. pneumoniae DNA (PCR) Not detected (NOT DETECT) 10/27/23 11:20 Coronavirus 229E (PCR) Not detected (NOT DETECT) 10/27/23 11:20 Hep Bs Antigen Non-reactive (Nonreactive) 10/27/23 12:10 Hep Bs Antibody < 3.5 (11.5-1000) L 10/27/23 12:10 Hepatitis C Antibody Non-reactive (Nonreactive) 10/27/23 12:10 Human Metapneumovir PCR Not detected (NOT DETECT) 10/27/23 11:20 Influenza A (H1) PCR Not detected (NOT DETECT) 10/27/23 11:20 Influ A (H1/09) PCR Not detected (NOT DETECT) 10/27/23 11:20 Influenza A (H3) PCR Not detected (NOT DETECT) 10/27/23 11:20 Influenza Type A (PCR) Not detected (NOT DETECT) 10/27/23 11:20 Influenza Type B (PCR) Not detected (NOT DETECT) 10/27/23 11:20 M. pneumoniae (PCR) Not detected (NOT DETECT) 10/27/23 11:20 Parainfluenza 1 (PCR) Not detected (NOT DETECT) 10/27/23 11:20 Parainfluenza 2 (PCR) Not detected (NOT DETECT) 10/27/23 11:20 Parainfluenza 3 (PCR) Not detected (NOT DETECT) 10/27/23 11:20 Parainfluenza 4 (PCR) Not detected (NOT DETECT) 10/27/23 11:20 RSV Type A (PCR) Not detected (NOT DETECT) 10/27/23 11:20 RSV Type B (PCR) Not detected (NOT DETECT) 10/27/23 11:20 Entero/Rhino (PCR) Not detected (NOT DETECT) 10/27/23 11:20 SARS-CoV-2 (PCR) Not detected (NOT DETECT) 10/27/23 11:20 Blood Type A Positive 11/04/23 10:04 Rho(D) Type Rh positive 11/04/23 10:04 Antibody Screen Negative 11/04/23 10:04 Crossmatch See Detail 11/04/23 10:04 Vitals Last Vital Signs Temp 98.5 F 11/07/23 04:00 Pulse 109 H 11/07/23 10:30 Resp 14 11/07/23 10:30 BP 105/54 11/07/23 10:30 Pulse Ox 95 11/07/23 10:30 O2 Del Method Nasal Cannula 11/07/23 07:45 O2 Flow Rate 4 11/07/23 07:45 FiO2 30 11/05/23 15:59 Discharge Plan Discharge Patient Disposition: Xfer SNF Condition: Stable Prescriptions: New doxycycline hyclate 100 mg tablet 100 mg PO BID 7 Days Qty: 14 0RF Eliquis 2.5 mg tablet 2.5 mg PO BID Qty: 60 0RF Rx Instructions: Stop if hemoglobin drops are noted GI bleed Continued bumetanide 1 mg tablet See Rx Instructions .ROUTE .COMPLEX Rx Instructions: TAKE 1 TABLET BY MOUTH ONCE DAILY NEEDED FOR SWELLING AND WEIGHT INCREASE. calcium acetate 667 mg tablet 667 mg PO DAILY albuterol sulfate [Ventolin HFA] 90 mcg/actuation Hfa Aerosol Inhaler 2 puff INHALATION Q6H PRN (Reason: Shortness Of Breath) Saccharomyces boulardii 250 mg Capsule 250 mg PO BID gabapentin 100 mg capsule 100 mg PO TID insulin glargine [Lantus Solostar U-100 Insulin] 100 unit/mL (3 mL) Insulin Pen 12 unit SUBCUT QPM albuterol sulfate 2.5 mg /3 mL (0.083 %) solution for nebulization 2.5 mg inhalation Q4H PRN (Reason: Shortness Of Breath) acetaminophen 325 mg Tablet 650 mg PO Q6H PRN (Reason: Pain) hydrocodone-acetaminophen 5-325 mg Tablet 1 tab PO Q6H PRN (Reason: Pain) bisacodyl 10 mg Suppository 10 mg AR DAILY PRN (Reason: Constipation) nystatin 100,000 unit/gram Powder 1 applic TOPICAL DAILY insulin aspart U-100 [Novolog FlexPen U-100 Insulin] 100 unit/mL (3 mL) insulin pen See Rx Instructions .ROUTE .COMPLEX Rx Instructions: INJECT PER SLIDING SCALE 3 TIMES DAILY: BS 100-119=2 UNITS, 120-160=4 UNITS, 161-200=6 UNITS, 201-240=8 UNITS, 241-280=11 UNITS, 281-320=15 UNIT. Silvadene 1 % Cream 1 applic TOPICAL DAILY nicotine 21 mg/24 hr Patch 24 Hour 1 patch TRANSDERMAL DAILY Changed amiodarone 200 mg tablet 200 mg PO BID Qty: 60 0RF Discontinued clopidogrel 75 mg Tablet 75 mg PO DAILY vancomycin 125 mg Capsule 125 mg PO TID Qty: 60 0RF metoprolol tartrate 50 mg tablet See Rx Instructions .ROUTE .COMPLEX Rx Instructions: TAKE 1 TABLET BY MOUTH DAILY FOR HNT. HOLD FOR SYSTOLIC BELOW 100, DIASTOLIC BELOW 60. metoprolol tartrate 50 mg tablet See Rx Instructions .ROUTE .COMPLEX Rx Instructions: TAKE 1 TABLET BY MOUTH DAILY ON FRIDAY, FRIDAY, FRIDAY AND FRIDAY. morphine 15 mg Tablet Extended Release 15 mg PO Q12H Discharge Orders: Discharge Order (Routine); Ordered 11/07/23 Ordered By: Juventino Mancini Referrals: [facility] [Outside] Misty Ibrahim [Primary Care Provider] - Alexander Baxter DO [Physician] - 2 weeks Patient Instructions: Dialysis Diet (DC), Hemodialysis (DC), Opioid Safety Activity Restrictions/Additional Instructions: Wound care dressing: Daily dry dressing change We would recommend Optifoam offloading dressing for his sacral area ulcer Can apply bacitracin topical antibiotic around the sacral area ulcer as well Discharge Attestations Time Spent in Discharge Care*: greater than 30 min Quality Metrics Clinical Quality Measures [ No reported AMI, CVA or VTE this stay] Coding Level of Care Code Acute Code for Chg Fwd Diagnoses ESRD (end stage renal disease) on dialysis N18.6; Z99.2
[2023-11-07 12:35] LABS: Glucose Point of Care 124 mg/dL (70-110)
[2023-11-07] MEDS: meropenem 500 MG in sodium chloride 0.9% (plus) 50 ML 100 MG IV (12:41)
[2023-11-07 13:01] LABS: SARS Covid-2 Antigen negative (Negative)
[2023-11-07] MEDS: heparin, porcine 1,000 unit/mL INJ 10 mL 10000 UNIT INTRACATH (15:47)
[2023-11-07 17:35] LABS: Glucose Point of Care 127 mg/dL (70-110)
--- NOTE | 2023-11-07 19:08 | PC.HD ---
Blood lines clotted with 1 hour of treatment left, returned blood from pre chamber arterial line but unable to return the rest. Pt waiting to discharge post treatment so tx terminated at that point.
--- NOTE | 2023-11-07 19:11 | PC.NURSE ---
Report called to Anila Reyes at 1835. Information given regarding left leg amputation and dressing changes. All belongings sent with patient including phone and batch analyst.
== END 2023-11-07 18:45 | disposition skilled nursing facility (03) | DRG 853 ==
LOC: ER 10:00 → ICU 11:04 → MEDSURG 10-31 17:08 → ICU 11-04 15:03
PROVIDERS: Anesthesiology; Internal Medicine; Internal Medicine Nephrology; Surgery; Thoracic Surgery (Cardiothoracic Vascular Surgery); Admitting Provider Internal Medicine; Emergency Provider Family Medicine; PCP Registered Nurse; Visit Provider Internal Medicine
PROC: 0Y6J0Z3 Detachment at Left Lower Leg, Low, Open Approach (ICD-10-PCS; CPT 27880; principal; 2023-10-28 13:45)
PROC: 0Y6J0Z1 Detachment at Left Lower Leg, High, Open Approach (ICD-10-PCS; CPT 27880; principal; 2023-11-04 14:40)
DX: A41.9 Sepsis, unspecified organism (principal); G93.41 Metabolic encephalopathy; L89.613 Pressure ulcer of right heel, stage 3; R65.21 Severe sepsis with septic shock; N18.6 End stage renal disease; I33.0 Acute and subacute infective endocarditis; J18.9 Pneumonia, unspecified organism; I82.431 Acute embolism and thrombosis of right popliteal vein; I82.451 Acute embolism and thrombosis of right peroneal vein; I82.441 Acute embolism and thrombosis of right tibial vein; E11.52 Type 2 diabetes mellitus with diabetic peripheral angiopathy with gangrene; N39.0 Urinary tract infection, site not specified; L03.116 Cellulitis of left lower limb; J96.11 Chronic respiratory failure with hypoxia; J44.0 Chronic obstructive pulmonary disease with (acute) lower respiratory infection; I50.9 Heart failure, unspecified; E11.22 Type 2 diabetes mellitus with diabetic chronic kidney disease; L89.152 Pressure ulcer of sacral region, stage 2; Z66 Do not resuscitate; E87.70 Fluid overload, unspecified; Z89.421 Acquired absence of other right toe(s); Z89.411 Acquired absence of right great toe; E87.5 Hyperkalemia; D63.1 Anemia in chronic kidney disease; I48.0 Paroxysmal atrial fibrillation; Z99.2 Dependence on renal dialysis; Z11.52 Encounter for screening for COVID-19; Z79.4 Long term (current) use of insulin; Z79.02 Long term (current) use of antithrombotics/antiplatelets; I25.2 Old myocardial infarction; Z87.440 Personal history of urinary (tract) infections; Z87.891 Personal history of nicotine dependence
CPT/HCPCS: 36415; 36416; 36430; 36592; 36600; 70450; 71045; 71275; 80048; 80051; 80053; 80202; 81001; 82306; 82310; 82330; 82550; 82728; 82803; 82805; 82962; 83540; 83550; 83605; 83735; 83970; 84100; 84550; 85014; 85018; 85025; 85049; 85378; 85384; 85610; 85730; 86706; 86803; 86850; 86900; 86920; 87040; 87077; 87086; 87186; 87340; 87426; 87486; 87581; 87633; 88307; 88311; 90935; 93005; 93971; 94002; 94003; 94640; 94660; 94799; 96365; 96367; 96372; 96374; 96375; 96376; 99285; A4570; C9113; J0131; J0171; J1100; J1170; J1630; J1644; J1815; J1885; J1940; J2060; J2185; J2270; J2405; J2704; J2795; J3010; J3370; J3490; J3535; J7030; J7050; J7613; J7626; P9016; P9040; P9046; P9047; Q3014; Q4081; Q9967